=== PATIENT | male | born 1990 | race African-American/Black ===

== ENCOUNTER 2018-04-24 17:21 | Emergency (ER) | payer OTHER ==
--- OUTSIDE RECORDS SUMMARY | 2018-04-24 17:25 | XMS REPORT | Clinical Summary ---
:1990 Author Organization [facility] Address [address] [place] [address] Phone Care Team Providers Name Role Phone Unavailable Primary Care Provider Unavailable Allergies No Known Allergies Current Medications Prescription Sig. Disp. Refills Start End Date Status Date atorvastatin Take 80 mg by mouth Active (LIPITOR) 80 MG daily. tablet cloNIDine HCl Take 0.1 mg by Active (CATAPRES) 0.1 MG mouth 2 (two) times tablet daily . famotidine Take 20 mg by mouth Active (PEPCID) 20 MG 2 (two) times tablet daily. levETIRAcetam Take 1 tablet 30 tablet 0 02/05/20 Active (KEPPRA) 1000 MG (1,000 mg total) by 8 19 tablet mouth 2 (two) times daily. aspirin 81 MG EC Take 1 tablet (81 30 tablet 0 02/05/20 Active tablet mg total) by mouth 8 19 daily. vancomycin Inject 750 mg 0 Active (VANCOCIN) 750 MG intravenously 3 8 IV in NS 100 ML (three) times a MBP week after dialysis. darbepoetin Inject 60 mcg Active ephraim-polysorbate subcutaneously (ARANESP) 60 once. mcg/0.3 mL Syrg injection senna-docusate Take 2 tablets by Active (SENOKOT S) 8.6-50 mouth nightly. mg per tablet HEPARIN SOD,PORK Inject Active IN 0.45% NACL intravenously. (HEPARIN,PORCINE, IN 0.45% NACL) 5,000 unit/1,000 mL SolP INSULIN ASPART Inject Active PROT/INSULN ASP subcutaneously. (INSULIN ASP PRT-INSULIN ASPART SUBQ) LORazepam (ATIVAN) Take 1 mg by mouth Active 1 MG tablet every 6 (six) hours as needed for Anxiety. losartan (COZAAR) Take 25 mg by mouth Active 25 MG tablet daily. multivitamin per Take 1 tablet by Active tablet mouth daily. ondansetron Take 4 mg by mouth Active (ZOFRAN) 4 MG as needed for tablet Nausea. sevelamer Take 800 mg by Active (RENVELA) 800 mg mouth 3 (three) tablet times daily with meals. thiamine (VITAMIN Take 50 mg by mouth Active B-1) 50 MG tablet daily. acetaminophen-code Take 1 tablet by Active ine (TYLENOL #3) mouth every 4 300-30 mg per (four) hours as tablet needed for Pain. aspirin 325 MG Take 325 mg by 02/05/20 Discontinued tablet mouth daily. 18 amLODIPine Take 1 tablet (5 mg 30 tablet 0 03/07/20 (NORVASC) 5 MG total) by mouth 8 18 tablet daily for 30 days. Active Problems Problem Noted Date Abscess of leg without foot, left 02/04/2018 Abscess of leg, left 02/03/2018 Encounters Date Type Specialty Care Team Description 04/14/2018 Telephone General Surgery Lisa Greenberg, HomeHealth Order (Wet to dry order for Inner Calf wound) 02/18/2018 Office Visit General Surgery Lisa Greenberg, Status post surgery (Primary Dx) 01/31/2018 Procedure Pass 01/31/2018 Surgery Lisa Greenberg, DEBRIDEMENT/I&DGULSHAN MD D EXTREMITY LOWER 01/30/2018 - Hospital Encounter General Internal Madhuri, 02/04/2018 Medicine MD Sarah 01/30/2018 Anesthesia Event Keith Rosales, AA after 04/23/2017 Social History Tobacco Use Types Packs/Day Years Used Date Never Smoker Smokeless Tobacco: Never Used Alcohol Use Drinks/Week oz/Week Comments No Sex Assigned at Date Recorded Not on file Last Filed Vital Signs Vital Sign Reading Time Taken Blood Pressure 92/65 02/18/2018 10:53 AM CDT Pulse 132 02/18/2018 10:53 AM CDT Temperature 36.9 C (98.5 F) 02/18/2018 10:53 AM CDT Respiratory Rate 18 02/04/2018 3:00 PM CDT Oxygen Saturation 96% 02/04/2018 3:00 PM CDT Inhaled Oxygen Concentration - - Weight 112 kg (246 lb 14.6 oz) 01/30/2018 2:00 PM CDT Height 193 cm (6' 4") 01/30/2018 2:00 PM CDT Body Mass Index 30.06 01/30/2018 2:00 PM CDT Plan of Treatment Health Maintenance Due Date Last Done Comments INFLUENZA VACCINE 06/23/2018 Procedures Procedure Name Priority Date/Time Associated Diagnosis Comments DEBRIDEMENT/I&D,WOUND 01/31/2018 12:00 PM CDT Leg abscess EXTREMITY LOWER Special Needs DR. LILIAM ATWOOD ASST after 04/23/2017 Results TRANSFUSION SERVICE REPORT - SCAN (02/05/2018 5:50 PM)Only the most recent of3 resultswithin the time period is included.EKG-SCANNED (02/05/2018 3:24 PM) Prepare Leuko-Red RBC (02/04/2018 11:54 PM)Only the most recent of2 resultswithin the time period is included. Component Value Ref Range CROSSMATCH COMPATIBLE Unit ABO O Pos UNIT NUMBER [id number] Status TRANSFUSED Blood Bank Product RED BLOOD CELLS PRODUCT CODE A3526A35 CROSSMATCH COMPATIBLE Unit ABO O Pos UNIT NUMBER [id number] Status RETURNED FROM ISSUE Blood Bank Product RED BLOOD CELLS PRODUCT CODE R6951R31 Specimen Performing Laboratory Other [facility] [place] Prepare RBC (02/04/2018 11:54 PM) Component Value Ref Range CROSSMATCH COMPATIBLE Unit ABO O Pos UNIT NUMBER [id number] Status TRANSFUSED Blood Bank Product RED BLOOD CELLS PRODUCT CODE J2402U56 Specimen Performing Laboratory [facility] [place] POC-Glucose meter (02/04/2018 6:15 PM)Only the most recent of18 resultswithin the time period is included. Component Value Ref Range POC-Glucose Meter 129 (H)Comment: TESTED AT [facility] [address] 70 - 110 mg/dL [facility] [address] Specimen Performing Laboratory Blood [facility] [address] [address] CBC with platelet count + automated diff (02/04/2018 2:07 PM)Only the most recent of5 resultswithin the time period is included. Component Value Ref Range WBC 7.8 4.0 - 10.0 K/L RBC 3.06 (L) 4.20 - 5.80 M/L Hemoglobin 8.7 (L) 13.0 - 16.8 GM/DL Hematocrit 26.1 (L) 40.0 - 50.0 % MCV 85.5 82.0 - 98.0 fL MCH 28.4 27.0 - 33.0 pg MCHC 33.2 32.0 - 36.0 GM/DL RDW 19.5 (H) 10.3 - 14.2 % Platelets 264 150 - 430 K/CU MM MPV 7.4 6.5 - 10.5 fL % Neutros 52 % % Lymphs 29 % % Monos 14 % % Eos 5 % % Baso 1 % # Neutros 4.20 1.80 - 8.00 K/L # Lymphs 2.20 1.48 - 4.50 K/L # Monos 1.10 0.00 - 1.30 K/L # Eos 0.30 0.00 - 0.50 K/L # Baso 0.00 0.00 - 0.20 K/L Specimen Performing Laboratory Blood [facility] [address] [place] [id number] CBC with platelet count + automated diff (02/04/2018 2:07 PM)Only the most recent of5 resultswithin the time period is included. Specimen Performing Laboratory Blood Narrative The following orders were created for panel order CBC with platelet count + automated diff. Procedure Abnormality Status --------- ------ CBC with platelet count ...[[id number]]AbnormalFinal result Please view results for these tests on the individual orders. Basic Metabolic Panel (02/04/2018 2:07 PM)Only the most recent of5 resultswithin the time period is included. Component Value Ref Range Sodium 138 135 - 148 meq/L Potassium 4.6 3.6 - 5.5 meq/L Chloride 97 (L) 98 - 106 meq/L CO2 19 (L) 20 - 29 meq/L BUN 27 (H) 10 - 26 mg/dL Creatinine 7.19 (H) 0.50 - 1.20 mg/dL Glucose 97 70 - 110 mg/dL Calcium 9.8 8.5 - 10.5 mg/dL EGFR 11Comment: ESTIMATED GFR IS NOT ACCURATE mL/min/1.73 sq m CREATININE CLEARANCE IN PREDICTING GLOMERULAR FILTRATION RATE. ESTIMATED GFR IS NOT APPLICABLE FOR DIALYSIS PATIENTS. Specimen Performing Laboratory Blood [facility] [address] [place] [address] Phosphorus (02/03/2018 4:48 PM) Component Value Ref Range Phosphorus 6.9 (H) 2.5 - 4.5 mg/dL Specimen Performing Laboratory Blood [facility] [address] [place], [place] [address] Hemoglobin and hematocrit (02/03/2018 8:06 AM) Component Value Ref Range Hemoglobin 6.5 (L) 13.0 - 16.8 GM/DL Hematocrit 19.0 (L) 40.0 - 50.0 % Specimen Performing Laboratory Blood - Central Venous Line [facility] [address] [place] [address] Manual Differential (02/03/2018 7:27 AM)Only the most recent of3 resultswithin the time period is included. Component Value Ref Range Total Counted WBC Morphology Normal Platelet Morphology Normal Anisocytosis 1+ few Specimen Performing Laboratory Blood - Central Venous Line [facility] [address] [place], [place] [id number] Transfuse Leuko-Red RBC (02/02/2018 3:35 PM)Type and screen (02/02/2018 7:49 AM) Component Value Ref Range Ab Scrn NEGATIVE ABO Grouping O Rh Factor POS Specimen Performing [place] [address] Tissue Exam (01/31/2018 11:10 AM) Component Value Ref Range Case Report Surgical Pathology Report Case: [id number] Authorizing Provider:Lisa Greenberg MD Collected: 01/31/2018 1110 Ordering Location: [facility] Med Surg 5th FloorReceived: 01/31/2018 1249 Pathologist: Sherri Zarate MD Specimen:Leg, Left Lower, NECROTIC TISSUE LEFT LOWER LEG DIAGNOSIS SKIN AND SOFT TISSUE, LEFT LOWER LEG, EXCISION: - SKIN AND SUBCUTIS WITH NECROSIS, ACUTE AND CHRONIC INFLAMMATION, BACTERIAL COLONIZATION AND CALCIFICATION OF BLOOD VESSELS, CONSISTENT WITH CALCIPHYLAXIS (SEE COMMENT) Signing Pathologist Direct Phone Line: [phone] COMMENT Calcification of small and medium sized blood vessels are identified along with extensive necrosis of tissue. 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 CPT Code(s) 61221 CLINICAL HISTORY Not given SPECIMEN SOURCE Leg, left lower, necrotic tissue left lower leg GROSS DESCRIPTION The specimen is received in fixative and designated as "leg, left lower" and consists of skin and subcutaneous tissue (6.0 x 4.0 x 2.0 cm). The overlying skin is brown-patterson and smooth. No discrete lesions. The underlying soft tissue is soft and necrotic. Bobbin Inspector sections of the skin and soft tissue are submitted into A1 to A3. MG/pl MICROSCOPIC DESCRIPTION Performed Gross assessment was performed at [facility], Department of Pathology, [address] [place] [address], Technical component was performed at [facility], Department of Pathology, [address] [place] [address], Professional component was performed [facility], at Department of Pathology, [address] [place] [address], Specimen Performing Laboratory Tissue - Leg, Left Lower [facility] [address] [place] [address] Anaerobic culture (01/31/2018 11:05 AM) Component Value Ref Range Result No anaerobes isolated Specimen Performing Laboratory Abscess - Leg, Left Lower [facility] [address] [place] [address] Surgically obtained culture + gram stain (01/31/2018 11:05 AM) Component Value Ref Range Result 2+ Methicillin resistant Staphylococcus aureus (A) Gram Stain Result 4+ WBCs Gram Stain Result 1+ gram positive cocci in clusters Specimen Performing Laboratory Abscess - Leg, Left Lower [facility] [address] [place] [address] Organism Antibiotic Method Susceptibility Methicillin resistant Clindamycin 0.25: Susceptible Staphylococcus aureus Methicillin resistant Linezolid 2: Susceptible Staphylococcus aureus Methicillin resistant Oxacillin >=4: Resistant Staphylococcus aureus Methicillin resistant Rifampin <=0.5: Susceptible Staphylococcus aureus Methicillin resistant Tetracycline <=1: Susceptible Staphylococcus aureus Methicillin resistant Trimethoprim + <=10: Susceptible Staphylococcus aureus Sulfamethoxazole Methicillin resistant Vancomycin 1: Susceptible Staphylococcus aureus Hepatitis B surface antibody (01/31/2018 6:43 AM) Component Value Ref Range Hep B S Ab 10.2 (H) <8.0 mIU/mL Specimen Performing Laboratory Blood - Central Venous Line [address] [address] Hepatitis B surface antigen (01/31/2018 6:43 AM) Component Value Ref Range hepatitis B Surface Ag Nonreactive Nonreactive Specimen Performing Laboratory Blood - Central Venous Line [facility] [address] [place] [address] Prothrombin time/INR (01/30/2018 3:48 PM) Component Value Ref Range Protime 11.2 9.3 - 12.0 seconds INR 1.0 <=5.9 Specimen Performing Laboratory Blood [facility] [address] [place] [address] Narrative RECOMMENDED COUMADIN/WARFARIN INR THERAPY RANGES STANDARD DOSE: 2.0 - 3.0 Includes: PROPHYLAXIS for venous thrombosis, systemic embolization; TREATMENT for venous thrombosis and/or pulmonary embolus. HIGH RISK: Target INR is 2.5-3.5 for patients with mechanical heart valves. after 04/23/2017
--- OUTSIDE RECORDS SUMMARY | 2018-04-24 17:25 | XMS REPORT ---
:1990 [facility] [address] [place] [address] [address] [place] [address] Care Team Providers Name Role Phone ANNE CASTILLO Unavailable Unavailable DR EDUARDO SHELTON Unavailable Unavailable Problems This patient has no known problems. Allergies, Adverse Reactions, Alerts This patient has no known allergies or adverse reactions. Medications This patient has no known medications. Encounters Start End Encounter Admission Attending Care Care Encounter Date/Time Date/Time Type Type Clinicians Facility Department ID 2018-01-28 2018-01-28 Outpatient EDUARDO [facility] [id number] 07:49:00 23:59:00 Results Test Description Test Time Test Comments Text Results Atomic Results Result Comments ANAEROBIC CULTURE 2018-02-05 10:36:00 Test Item Value Reference Range Comments CULTURE (BEAKER) (test naat=9687) No anaerobes isolated POCT-GLUCOSE [id number] 18:17:00 Test Item Value Reference Range Comments POC-GLUCOSE METER (BEAKER) 129 mg/dL 70-110 TESTED AT [facility] [address] [place] [address] (test tfag=2539) [facility] [address] BASIC METABOLIC [id number] 14:45:00 Test Item Value Reference Range Comments SODIUM (BEAKER) (test 138 meq/L 135-148 ioje=269) POTASSIUM (BEAKER) (test 4.6 meq/L 3.6-5.5 yyfy=903) CHLORIDE (BEAKER) (test 97 meq/L 98-106 huyo=216) CO2 (BEAKER) (test 19 meq/L 20-29 ibqv=172) BLOOD UREA NITROGEN 27 mg/dL 10-26 (BEAKER) (test tbkh=239) CREATININE (BEAKER) (test 7.19 mg/dL 0.50-1.20 yphm=252) GLUCOSE RANDOM (BEAKER) 97 mg/dL 70-110 (test znsx=716) CALCIUM (BEAKER) (test 9.8 mg/dL 8.5-10.5 arjz=507) EGFR (BEAKER) (test 11 mL/min/1.73 sq m ESTIMATED GFR IS NOT dxld=1351) ACCURATE CREATININE CLEARANCE IN PREDICTING GLOMERULAR FILTRATION RATE. ESTIMATED GFR IS NOT APPLICABLE FOR DIALYSIS PATIENTS. CBC W/PLT COUNT & AUTO [id number] 14:35:00 Test Item Value Reference Range Comments WHITE BLOOD CELL COUNT (BEAKER) (test cxeq=494) 7.8 K/ L 4.0-10.0 RED BLOOD CELL COUNT (BEAKER) (test ztfz=296) 3.06 M/ L 4.20-5.80 HEMOGLOBIN (BEAKER) (test hepf=090) 8.7 GM/DL 13.0-16.8 HEMATOCRIT (BEAKER) (test jxps=072) 26.1 % 40.0-50.0 MEAN CORPUSCULAR VOLUME (BEAKER) (test nzjz=427) 85.5 fL 82.0-98.0 MEAN CORPUSCULAR HEMOGLOBIN (BEAKER) (test 28.4 pg 27.0-33.0 qglr=952) MEAN CORPUSCULAR HEMOGLOBIN CONC (BEAKER) (test 33.2 GM/DL 32.0-36.0 cdrr=127) RED CELL DISTRIBUTION WIDTH (BEAKER) (test 19.5 % 10.3-14.2 kpqw=648) PLATELET COUNT (BEAKER) (test ysis=686) 264 K/CU MM 150-430 MEAN PLATELET VOLUME (BEAKER) (test maya=832) 7.4 fL 6.5-10.5 NEUTROPHILS RELATIVE PERCENT (BEAKER) (test 52 % vqvx=249) LYMPHOCYTES RELATIVE PERCENT (BEAKER) (test 29 % ovui=907) MONOCYTES RELATIVE PERCENT (BEAKER) (test 14 % zsrp=308) EOSINOPHILS RELATIVE PERCENT (BEAKER) (test 5 % gktc=729) BASOPHILS RELATIVE PERCENT (BEAKER) (test 1 % ntjq=050) NEUTROPHILS ABSOLUTE COUNT (BEAKER) (test 4.20 K/ L 1.80-8.00 jacz=060) LYMPHOCYTES ABSOLUTE COUNT (BEAKER) (test 2.20 K/ L 1.48-4.50 quin=937) MONOCYTES ABSOLUTE COUNT (BEAKER) (test 1.10 K/ L 0.00-1.30 bzri=302) EOSINOPHILS ABSOLUTE COUNT (BEAKER) (test 0.30 K/ L 0.00-0.50 bqfs=824) BASOPHILS ABSOLUTE COUNT (BEAKER) (test 0.00 K/ L 0.00-0.20 almr=896) POCT-GLUCOSE [id number] 11:29:00 Test Item Value Reference Range Comments POC-GLUCOSE METER (BEAKER) 189 mg/dL 70-110 TESTED AT [address] (test smys=6596) [facility] [address] POCT-GLUCOSE [id number] 05:51:00 Test Item Value Reference Range Comments POC-GLUCOSE METER (BEAKER) 117 mg/dL 70-110 TESTED AT [address] (test fjbr=1495) [place] [id number] POCT-GLUCOSE [id number] 21:42:00 Test Item Value Reference Range Comments POC-GLUCOSE METER (BEAKER) 120 mg/dL 70-110 TESTED AT [address] (test rdzr=0443) [facility] [address] POCT-GLUCOSE [id number] 20:08:00 Test Item Value Reference Range Comments POC-GLUCOSE METER (BEAKER) 128 mg/dL 70-110 TESTED AT [address] (test lvqw=6296) [facility] [address] [id number] 17:01:00 Test Item Value Reference Range Comments PHOSPHORUS (BEAKER) (test okox=890) 6.9 mg/dL 2.5-4.5 POCT-GLUCOSE [id number] 12:06:00 Test Item Value Reference Range Comments POC-GLUCOSE METER (BEAKER) 122 mg/dL 70-110 TESTED AT [address] (test juvu=7475) [facility] [address] TISSUE [id number] 09:54:00Surgical Pathology Report Case: [id number] Authorizing Provider: Lisa Greenberg MD Collected: 01/31/2018 1110 Ordering Location: [facility] Med Surg 5th Floor Received: 01/31/2018 1249 Pathologist: Sherri Zarate MD Specimen: Leg, Left Lower, NECROTIC TISSUE LEFT LOWER LEG SKIN AND SOFT TISSUE, LEFT LOWER LEG, EXCISION: - SKIN AND SUBCUTIS WITH NECROSIS, ACUTE AND CHRONIC INFLAMMATION, BACTERIAL COLONIZATION AND CALCIFICATION OF BLOOD VESSELS, CONSISTENT WITH CALCIPHYLAXIS (SEE COMMENT) Signing Pathologist Direct Phone Line: [phone] signed by Sherri Zarate MD on 02/03/2018 at 9:54 AMCalcification of small and medium sized blood vessels are identified along with extensive necrosis of tissue. 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 [id number] givenLeg, left lower, necrotic tissue left lower legThe specimen is received in fixative and designated as "leg, left lower" and consists of skin and subcutaneous tissue ( 6.0 x 4.0 x 2.0 cm). The overlying skin is brown-patterson and smooth. No discrete lesions. The underlying soft tissue is soft and necrotic. Paint Spray Tender sectionsof the skin and soft tissue are submitted into A1 to A3. MG/pl Performed [facility], Department of Pathology, [address] [place] [address], IoywjxMk. [facility], Department of Pathology, [address] [place] [address], Tel . [facility], Department of Pathology, [address] [place] [address], IHJ W/PLT COUNT & AUTO [id number] 09:08:00 Test Item Value Reference Range Comments WHITE BLOOD CELL COUNT (BEAKER) (test xlql=723) 6.8 K/ L 4.0-10.0 RED BLOOD CELL COUNT (BEAKER) (test ufxj=871) 2.19 M/ L 4.20-5.80 HEMOGLOBIN (BEAKER) (test ixww=116) 6.2 GM/DL 13.0-16.8 HEMATOCRIT (BEAKER) (test hipr=734) 18.8 % 40.0-50.0 MEAN CORPUSCULAR VOLUME (BEAKER) (test tmsx=209) 85.9 fL 82.0-98.0 MEAN CORPUSCULAR HEMOGLOBIN (BEAKER) (test 28.4 pg 27.0-33.0 lqcz=257) MEAN CORPUSCULAR HEMOGLOBIN CONC (BEAKER) (test 33.1 GM/DL 32.0-36.0 qsyf=817) RED CELL DISTRIBUTION WIDTH (BEAKER) (test 22.6 % 10.3-14.2 vkaa=502) PLATELET COUNT (BEAKER) (test iisk=113) 198 K/CU MM 150-430 MEAN PLATELET VOLUME (BEAKER) (test nckr=592) 7.1 fL 6.5-10.5 NUCLEATED RED BLOOD CELLS (BEAKER) (test 0 /100 WBC 0-0 amjr=607) NEUTROPHILS RELATIVE PERCENT (BEAKER) (test 63 % catq=394) LYMPHOCYTES RELATIVE PERCENT (BEAKER) (test 19 % flwe=754) MONOCYTES RELATIVE PERCENT (BEAKER) (test 13 % nhcf=134) EOSINOPHILS RELATIVE PERCENT (BEAKER) (test 5 % xdvr=751) BASOPHILS RELATIVE PERCENT (BEAKER) (test 1 % vbjb=922) NEUTROPHILS ABSOLUTE COUNT (BEAKER) (test 4.30 K/ L 1.80-8.00 biky=739) LYMPHOCYTES ABSOLUTE COUNT (BEAKER) (test 1.30 K/ L 1.48-4.50 uejh=197) MONOCYTES ABSOLUTE COUNT (BEAKER) (test 0.90 K/ L 0.00-1.30 eoaj=116) EOSINOPHILS ABSOLUTE COUNT (BEAKER) (test 0.30 K/ L 0.00-0.50 lzcv=740) BASOPHILS ABSOLUTE COUNT (BEAKER) (test 0.00 K/ L 0.00-0.20 luxq=627) (MANUAL DIFFERENTIAL)2018-02-03 09:08:00 Test Item Value Reference Range Comments TOTAL COUNTED (BEAKER) (test xaie=2599) WBC MORPHOLOGY (BEAKER) (test kejv=882) Normal PLT MORPHOLOGY (BEAKER) (test trsf=723) Normal ANISOCYTOSIS (BEAKER) (test fhiw=919) 1+ few BASIC METABOLIC [id number] 08:39:00 Test Item Value Reference Range Comments SODIUM (BEAKER) (test 131 meq/L 135-148 wesw=000) POTASSIUM (BEAKER) (test 5.0 meq/L 3.6-5.5 perl=403) CHLORIDE (BEAKER) (test 97 meq/L 98-106 xsdi=873) CO2 (BEAKER) (test 25 meq/L 20-29 tjuv=678) BLOOD UREA NITROGEN 41 mg/dL 10-26 (BEAKER) (test qgad=287) CREATININE (BEAKER) (test 9.74 mg/dL 0.50-1.20 mltu=875) GLUCOSE RANDOM (BEAKER) 88 mg/dL 70-110 (test blnj=201) CALCIUM (BEAKER) (test 8.7 mg/dL 8.5-10.5 qsjj=327) EGFR (BEAKER) (test 8 mL/min/1.73 sq m ESTIMATED GFR IS NOT tucv=5196) ACCURATE CREATININE CLEARANCE IN PREDICTING GLOMERULAR FILTRATION RATE. ESTIMATED GFR IS NOT APPLICABLE FOR DIALYSIS PATIENTS. HEMOGLOBIN AND [id number] 08:25:00 Test Item Value Reference Range Comments HEMOGLOBIN (BEAKER) (test eavz=385) 6.5 GM/DL 13.0-16.8 HEMATOCRIT (BEAKER) (test wfdz=735) 19.0 % 40.0-50.0 POCT-GLUCOSE [id number] 21:42:00 Test Item Value Reference Range Comments POC-GLUCOSE METER (BEAKER) 121 mg/dL 70-110 TESTED AT [address] (test qszu=5545) [facility] [address] POCT-GLUCOSE [id number] 16:40:00 Test Item Value Reference Range Comments POC-GLUCOSE METER (BEAKER) 134 mg/dL 70-110 TESTED AT [address] (test ukxr=7963) [facility] [address] POCT-GLUCOSE [id number] 12:00:00 Test Item Value Reference Range Comments POC-GLUCOSE METER (BEAKER) 84 mg/dL 70-110 TESTED AT [address] (test ohro=1018) [facility] [address] SURGICALLY OBTAINED CULTURE + GRAM [id number] 08:12:00 Test Item Value Reference Range Comments CULTURE (AKER) (test METHICILLIN RESISTANT 2+ Methicillin bzuk=3140) STAPHYLOCOCCUS AUREUS resistant Staphylococcus aureus Ciprofloxacin (test code=7) Clindamycin (test code=10) Daptomycin (test code=59) Erythromycin (test code=4) Gentamicin (test code=18) Levofloxacin (test code=22) Linezolid (test code=40) Moxifloxacin (test code=36) Nitrofurantoin (test code=23) Oxacillin (test code=14) Rifampin (test code=43) Tetracycline (test code=2) Tigecycline (test beae=620) Trimethoprim + Sulfamethoxazole (test code=47) Vancomycin (test code=13) GRAM STAIN RESULT 4+ WBCs (BEAKER) (test mwgy=8023) GRAM STAIN RESULT 1+ gram positive cocci (BEAKER) (test in clusters ghxi=882997) CBC W/PLT COUNT & AUTO [id number] 06:19:00 Test Item Value Reference Range Comments WHITE BLOOD CELL COUNT (BEAKER) (test zqsy=596) 7.9 K/ L 4.0-10.0 RED BLOOD CELL COUNT (BEAKER) (test kpus=308) 2.16 M/ L 4.20-5.80 HEMOGLOBIN (BEAKER) (test rffm=202) 6.2 GM/DL 13.0-16.8 HEMATOCRIT (BEAKER) (test ohqd=979) 18.9 % 40.0-50.0 MEAN CORPUSCULAR VOLUME (BEAKER) (test ezno=191) 87.2 fL 82.0-98.0 MEAN CORPUSCULAR HEMOGLOBIN (BEAKER) (test 28.7 pg 27.0-33.0 nahl=100) MEAN CORPUSCULAR HEMOGLOBIN CONC (BEAKER) (test 32.9 GM/DL 32.0-36.0 dijx=957) RED CELL DISTRIBUTION WIDTH (BEAKER) (test 23.4 % 10.3-14.2 pkjw=759) PLATELET COUNT (BEAKER) (test ljxz=026) 203 K/CU MM 150-430 MEAN PLATELET VOLUME (BEAKER) (test siee=858) 7.2 fL 6.5-10.5 NUCLEATED RED BLOOD CELLS (BEAKER) (test 0 /100 WBC 0-0 kmct=326) NEUTROPHILS RELATIVE PERCENT (BEAKER) (test 64 % pcxv=529) LYMPHOCYTES RELATIVE PERCENT (BEAKER) (test 18 % gxhm=174) MONOCYTES RELATIVE PERCENT (BEAKER) (test 14 % dxib=356) EOSINOPHILS RELATIVE PERCENT (BEAKER) (test 4 % qxce=357) BASOPHILS RELATIVE PERCENT (BEAKER) (test 1 % iorw=893) NEUTROPHILS ABSOLUTE COUNT (BEAKER) (test 5.00 K/ L 1.80-8.00 dufm=975) LYMPHOCYTES ABSOLUTE COUNT (BEAKER) (test 1.40 K/ L 1.48-4.50 niyk=981) MONOCYTES ABSOLUTE COUNT (BEAKER) (test 1.10 K/ L 0.00-1.30 djrb=468) EOSINOPHILS ABSOLUTE COUNT (BEAKER) (test 0.30 K/ L 0.00-0.50 vimo=835) BASOPHILS ABSOLUTE COUNT (BEAKER) (test 0.00 K/ L 0.00-0.20 veev=270) POCT-GLUCOSE [id number] 06:01:00 Test Item Value Reference Range Comments POC-GLUCOSE METER (BEAKER) 122 mg/dL 70-110 TESTED AT [address] (test kjsg=7421) [facility] [address] POCT-GLUCOSE [id number] 21:23:00 Test Item Value Reference Range Comments POC-GLUCOSE METER (BEAKER) 178 mg/dL 70-110 TESTED AT [address] (test srdy=5452) [facility] [address] POCT-GLUCOSE [id number] 16:29:00 Test Item Value Reference Range Comments POC-GLUCOSE METER (BEAKER) 165 mg/dL 70-110 TESTED AT [address] (test bobr=1159) [facility] [address] POCT-GLUCOSE [id number] 11:59:00 Test Item Value Reference Range Comments POC-GLUCOSE METER (BEAKER) 131 mg/dL 70-110 TESTED AT [address] (test jsgc=9429) [facility] [address] POCT-GLUCOSE [id number] 05:22:00 Test Item Value Reference Range Comments POC-GLUCOSE METER (BEAKER) 104 mg/dL 70-110 TESTED AT [address] (test qpws=5358) [facility] [address] POCT-GLUCOSE [id number] 22:48:00 Test Item Value Reference Range Comments POC-GLUCOSE METER (BEAKER) 122 mg/dL 70-110 TESTED AT [address] (test maia=4402) [facility] [address] HEPATITIS B SURFACE [id number] 20:44:00 Test Item Value Reference Range Comments HEPATITIS B SURFACE ANTIBODY (BEAKER) (test 10.2 mIU/mL <8.0 jhjl=839) POCT-GLUCOSE [id number] 18:00:00 Test Item Value Reference Range Comments POC-GLUCOSE METER (BEAKER) 127 mg/dL 70-110 TESTED AT [facility] [address] (test lblf=8761) [address] [facility] [address] BASIC METABOLIC [id number] 11:02:00 Test Item Value Reference Range Comments SODIUM (BEAKER) (test 137 meq/L 135-148 ybox=943) POTASSIUM (BEAKER) (test 3.5 meq/L 3.6-5.5 haql=197) CHLORIDE (BEAKER) (test 98 meq/L 98-106 znol=879) CO2 (BEAKER) (test 27 meq/L 20-29 wrqw=470) BLOOD UREA NITROGEN 11 mg/dL 10-26 (BEAKER) (test wftb=421) CREATININE (BEAKER) (test 3.99 mg/dL 0.50-1.20 qymd=439) GLUCOSE RANDOM (BEAKER) 84 mg/dL 70-110 (test nhio=213) CALCIUM (BEAKER) (test 9.6 mg/dL 8.5-10.5 neuc=863) EGFR (BEAKER) (test 22 mL/min/1.73 sq m ESTIMATED GFR IS NOT vsxe=8780) ACCURATE CREATININE CLEARANCE IN PREDICTING GLOMERULAR FILTRATION RATE. ESTIMATED GFR IS NOT APPLICABLE FOR DIALYSIS PATIENTS. CBC W/PLT COUNT & AUTO [id number] 10:36:00 Test Item Value Reference Range Comments WHITE BLOOD CELL COUNT (BEAKER) (test tgqy=630) 6.7 K/ L 4.0-10.0 RED BLOOD CELL COUNT (BEAKER) (test lqun=263) 2.89 M/ L 4.20-5.80 HEMOGLOBIN (BEAKER) (test nuyh=827) 8.2 GM/DL 13.0-16.8 HEMATOCRIT (BEAKER) (test vmjf=399) 24.9 % 40.0-50.0 MEAN CORPUSCULAR VOLUME (BEAKER) (test fpfm=892) 86.1 fL 82.0-98.0 MEAN CORPUSCULAR HEMOGLOBIN (BEAKER) (test 28.3 pg 27.0-33.0 cgck=651) MEAN CORPUSCULAR HEMOGLOBIN CONC (BEAKER) (test 32.9 GM/DL 32.0-36.0 temg=302) RED CELL DISTRIBUTION WIDTH (BEAKER) (test 24.6 % 10.3-14.2 uefp=684) PLATELET COUNT (BEAKER) (test aqpt=471) 234 K/CU MM 150-430 MEAN PLATELET VOLUME (BEAKER) (test nyyw=082) 7.3 fL 6.5-10.5 NUCLEATED RED BLOOD CELLS (BEAKER) (test 0 /100 WBC 0-0 urlv=723) NEUTROPHILS RELATIVE PERCENT (BEAKER) (test 64 % tfml=332) LYMPHOCYTES RELATIVE PERCENT (BEAKER) (test 20 % tfre=538) MONOCYTES RELATIVE PERCENT (BEAKER) (test 11 % fbbb=207) EOSINOPHILS RELATIVE PERCENT (BEAKER) (test 4 % ccfh=174) BASOPHILS RELATIVE PERCENT (BEAKER) (test 1 % bmph=054) NEUTROPHILS ABSOLUTE COUNT (BEAKER) (test 4.30 K/ L 1.80-8.00 dtyi=833) LYMPHOCYTES ABSOLUTE COUNT (BEAKER) (test 1.30 K/ L 1.48-4.50 hgey=426) MONOCYTES ABSOLUTE COUNT (BEAKER) (test 0.80 K/ L 0.00-1.30 wawo=759) EOSINOPHILS ABSOLUTE COUNT (BEAKER) (test 0.30 K/ L 0.00-0.50 oxxl=525) BASOPHILS ABSOLUTE COUNT (BEAKER) (test 0.00 K/ L 0.00-0.20 ecxr=226) (MANUAL DIFFERENTIAL)2018-01-31 10:36:00 Test Item Value Reference Range Comments TOTAL COUNTED (BEAKER) (test tyqn=0972) WBC MORPHOLOGY (BEAKER) (test pnok=434) Normal PLT MORPHOLOGY (BEAKER) (test bsff=344) Normal ANISOCYTOSIS (BEAKER) (test lfdt=119) 1+ few MICROCYTES (BEAKER) (test fyqr=003) 1+ few POIKILOCYTES (BEAKER) (test iphb=778) 1+ few HEPATITIS B SURFACE [id number] 07:50:00 Test Item Value Reference Range Comments HEPATITIS B SURFACE ANTIGEN (2) (BEAKER) (test Nonreactive Nonreactive shkw=1406) BASIC METABOLIC [id number] 07:45:00 Test Item Value Reference Range Comments SODIUM (BEAKER) (test 133 meq/L 135-148 rijk=399) POTASSIUM (BEAKER) (test 4.4 meq/L 3.6-5.5 xpll=300) CHLORIDE (BEAKER) (test 97 meq/L 98-106 mgul=556) CO2 (BEAKER) (test 25 meq/L 20-29 mkuk=705) BLOOD UREA NITROGEN 25 mg/dL 10-26 (BEAKER) (test ujpj=727) CREATININE (BEAKER) (test 7.52 mg/dL 0.50-1.20 isrd=775) GLUCOSE RANDOM (BEAKER) 89 mg/dL 70-110 (test zary=167) CALCIUM (BEAKER) (test 9.8 mg/dL 8.5-10.5 iqos=677) EGFR (BEAKER) (test 10 mL/min/1.73 sq m ESTIMATED GFR IS NOT uyik=9397) ACCURATE CREATININE CLEARANCE IN PREDICTING GLOMERULAR FILTRATION RATE. ESTIMATED GFR IS NOT APPLICABLE FOR DIALYSIS PATIENTS. POCT-GLUCOSE [id number] 06:32:00 Test Item Value Reference Range Comments POC-GLUCOSE METER (BEAKER) 82 mg/dL 70-110 TESTED AT [address] (test qxao=2583) [facility] [address] POCT-GLUCOSE [id number] 17:47:00 Test Item Value Reference Range Comments POC-GLUCOSE METER (BEAKER) 106 mg/dL 70-110 TESTED AT [address] (test jmuj=9112) [facility] [address] CBC W/PLT COUNT & AUTO [id number] 16:41:00 Test Item Value Reference Range Comments WHITE BLOOD CELL COUNT (BEAKER) (test hgbn=153) 8.0 K/ L 4.0-10.0 RED BLOOD CELL COUNT (BEAKER) (test ocdu=804) 3.02 M/ L 4.20-5.80 HEMOGLOBIN (BEAKER) (test alqp=528) 8.5 GM/DL 13.0-16.8 HEMATOCRIT (BEAKER) (test pdoc=485) 25.9 % 40.0-50.0 MEAN CORPUSCULAR VOLUME (BEAKER) (test tzos=084) 85.7 fL 82.0-98.0 MEAN CORPUSCULAR HEMOGLOBIN (BEAKER) (test 28.3 pg 27.0-33.0 njce=456) MEAN CORPUSCULAR HEMOGLOBIN CONC (BEAKER) (test 33.0 GM/DL 32.0-36.0 hhqx=569) RED CELL DISTRIBUTION WIDTH (BEAKER) (test 24.9 % 10.3-14.2 fpgq=418) PLATELET COUNT (BEAKER) (test uhjw=000) 272 K/CU MM 150-430 MEAN PLATELET VOLUME (BEAKER) (test kqtx=304) 6.7 fL 6.5-10.5 NUCLEATED RED BLOOD CELLS (BEAKER) (test 0 /100 WBC 0-0 gulz=386) NEUTROPHILS RELATIVE PERCENT (BEAKER) (test 65 % godz=436) LYMPHOCYTES RELATIVE PERCENT (BEAKER) (test 19 % chra=623) MONOCYTES RELATIVE PERCENT (BEAKER) (test 12 % pfli=342) EOSINOPHILS RELATIVE PERCENT (BEAKER) (test 3 % bqlk=296) BASOPHILS RELATIVE PERCENT (BEAKER) (test 1 % okia=928) NEUTROPHILS ABSOLUTE COUNT (BEAKER) (test 5.20 K/ L 1.80-8.00 mdje=502) LYMPHOCYTES ABSOLUTE COUNT (BEAKER) (test 1.50 K/ L 1.48-4.50 biop=752) MONOCYTES ABSOLUTE COUNT (BEAKER) (test 1.00 K/ L 0.00-1.30 xdtl=766) EOSINOPHILS ABSOLUTE COUNT (BEAKER) (test 0.20 K/ L 0.00-0.50 pini=313) BASOPHILS ABSOLUTE COUNT (BEAKER) (test 0.00 K/ L 0.00-0.20 umgg=205) (MANUAL DIFFERENTIAL)2018-01-30 16:41:00 Test Item Value Reference Range Comments TOTAL COUNTED (BEAKER) (test eadw=5817) WBC MORPHOLOGY (BEAKER) (test uvjr=303) Normal PLT MORPHOLOGY (BEAKER) (test qkie=084) Normal ANISOCYTOSIS (BEAKER) (test vueo=900) 2+ moderate HYPOCHROMIA (BEAKER) (test nguv=164) 2+ moderate BASIC METABOLIC [id number] 16:21:00 Test Item Value Reference Range Comments SODIUM (BEAKER) (test 133 meq/L 135-148 lqzq=515) POTASSIUM (BEAKER) (test 4.5 meq/L 3.6-5.5 xaen=635) CHLORIDE (BEAKER) (test 96 meq/L 98-106 jhqa=419) CO2 (BEAKER) (test 26 meq/L 20-29 hbhz=960) BLOOD UREA NITROGEN 21 mg/dL 10-26 (BEAKER) (test sfzy=697) CREATININE (BEAKER) (test 6.41 mg/dL 0.50-1.20 dpxr=078) GLUCOSE RANDOM (BEAKER) 93 mg/dL 70-110 (test xdxt=814) CALCIUM (BEAKER) (test 10.0 mg/dL 8.5-10.5 khgy=349) EGFR (BEAKER) (test 13 mL/min/1.73 sq m ESTIMATED GFR IS NOT kvrk=[id number]) ACCURATE CREATININE CLEARANCE IN PREDICTING GLOMERULAR FILTRATION RATE. ESTIMATED GFR IS NOT APPLICABLE FOR DIALYSIS PATIENTS. PROTHROMBIN [id number] 16:17:00 Test Item Value Reference Range Comments PROTIME (BEAKER) (test evpm=339) 11.2 seconds 9.3-12.0 INR (BEAKER) (test azrm=626) 1.0 <=5.9 RECOMMENDED COUMADIN/WARFARIN INR THERAPY RANGESSTANDARD DOSE: 2.0 - 3.0 Includes: PROPHYLAXIS forvenous thrombosis, systemic embolization; TREATMENT for venous thrombosis and/or pulmonary embolus.HIGH RISK: Target INR is 2.5-3.5 for patients with mechanical heart valves.
--- NOTE | 2018-04-24 18:14 | RAD REPORT ---
EXAM DESCRIPTION: RAD - Chest Single View - 04/24/2018 6:09 pm CLINICAL HISTORY: syncope Chest pain. COMPARISON: Chest Single View dated 12/04/2017; Chest Single View dated 11/28/2017; Chest Single View d ated 11/27/2017; Chest Single View dated 11/26/2017 FINDINGS: Portable technique limits examination quality. The lungs are grossly clear. The heart is mildly enlarged in size. No displaced fractures.Left-sided venous catheter tip in the SVC. IMPRESSION: No acute intrathoracic process suspected.
--- NOTE | 2018-04-24 18:28 | RAD REPORT ---
EXAM DESCRIPTION: CT - [id number] - 04/24/2018 6:03 pm CLINICAL HISTORY: Trauma, head and neck injury. syncope COMPARISON: MRA Head Wo Cont dated 12/05/2017; Brain Wo Cont dated 12/05/2017 TECHNIQUE: Axial 5 mm thick images of the head were obtained. Axial 2 mm thick images of the cervical spine were obtained with sagittal and coronal reconstruction images generated and reviewed. All CT scans are performed using dose optimization technique as appropriate and may include automated exposure control or mA/KV adjustment according to patient size. FINDINGS: CT HEAD WITHOUT CONTRAST: No acute hemorrhage, hydrocephalus or extra-axial collection is identified.Areas of diminished densit y in the basal ganglia bilaterally and the central midline regions of the brain is compatible with re mote infarcts.No areas of brain edema or midline shift. 10 mm mucous retention cyst or polyp in the right maxillary antrum. The paranasal sinuses and mastoid s are otherwise clear.The calvarium is intact. CT CERVICAL SPINE WITHOUT CONTRAST: No fracture or subluxation.No prevertebral soft tissues swelling is identified. IMPRESSION: No acute intracranial or cervical spine findings.
[2018-04-24 19:10] LABS: Absolute Lymphocytes (CBC) 1.3 K/uL (0.7-4.9); Absolute Monocytes 0.5 K/uL (0.1-1.3); Absolute Neutrophil 3.3 K/uL (1.8-8.0); Basophils % 0.6 % (0-1.3); Hematocrit 40.1 % (39.6-49.0); Lymphocytes % 24.2 % (15.3-44.8); MCH 30.3 pg (27.0-35.0); MCV 91.4 fL (80-100); MPV 8.6 fL (7.6-11.3); Monocytes % 8.5 % (3.3-12.3); RBC Red Blood Cell Count 4.39 M/uL (4.33-5.43)
[2018-04-24 19:14] LABS: Protime INR 1.03
--- NOTE | 2018-04-24 19:16 | ER ---
Nurse's Notes [facility] Unit Name: Rodrigue Arreola Jr Age: 27 yrs Sex: Male : 1990 Arrival Date: 04/24/2018 Time: 17:24 Bed 28 Private MD: Johnathan Banks E Diagnosis: Hypotension;End stage renal disease;Syncope and collapse;Epilepsy and recurrent seizures Presentation: 04/24 17:28 Presenting complaint: Patient states: he finished HD and fell straight forward, unknown sv LOC. Pt may have had a seizure. Pt recently had a CVA. Transition of care: patient was not received from another setting of care. Onset of symptoms was April 24, 2018. Care prior to arrival: None. 17:28 Method Of Arrival: Ambulatory sv 17:28 Acuity: DAVID 3 sv 17:43 Risk Assessment: Do you want to hurt yourself or someone else? Patient reports no rv desire to harm self or others. Initial Sepsis Screen: Does the patient meet any 2 criteria? No. Patient's initial sepsis screen is negative. Does the patient have a suspected source of infection? No. Patient's initial sepsis screen is negative. Historical: - Allergies: 17:31 No Known Allergies; sv - PMHx: 17:31 CHF; Diabetes - IDDM; Hypertension; Hypothyroidism; CVA; sv - PSHx: 17:31 HD port; sv - Immunization history:: Adult Immunizations up to date. - Social history:: Smoking status: Patient/guardian denies using tobacco. - Ebola Screening: : No symptoms or risks identified at this time. Screenin:41 Abuse screen: Denies threats or abuse. Denies injuries from another. Nutritional rv screening: No deficits noted. Tuberculosis screening: No symptoms or risk factors identified. Fall Risk None identified. Assessment: 17:42 General: Appears in no apparent distress. comfortable, Behavior is calm, cooperative. rv Pain: Denies pain. Neuro: Level of Consciousness is awake, alert, obeys commands, Oriented to person, place, time, situation. Cardiovascular: Heart tones S1 S2 present. Respiratory: Airway is patent. GI: No signs and/or symptoms were reported involving the gastrointestinal system. : No signs and/or symptoms were reported regarding the genitourinary system. EENT: No signs and/or symptoms were reported regarding the EENT system. Derm: Skin is intact. 19:44 Reassessment: Patient appears in no apparent distress at this time. Patient and/or rv family updated on plan of care and expected duration. Pain level reassessed. Patient is alert, oriented x 3, equal unlabored respirations, skin warm/dry/pink. AWAITING ADMISSION ORDERS. 20:23 Reassessment: Pt family member in hallway stating that they want the CT results and ed1 that the patient does not want to be admitted. Vital Signs: 17:31 BP 127 / 73; Pulse 126; Resp 16; Pulse Ox 98% ; Weight 114 kg; Height 6 ft. 4 in. sv (193.04 cm); Pain 0/10; 18:51 BP 130 / 91; Pulse 90; Pulse Ox 100% ; rv 19:09 BP 139 / 94 Supine; Pulse 73; rv 19:09 BP 116 / 90 Sitting; Pulse 123; rv 19:09 BP 95 / 58 Standing; Pulse 140; rv 19:44 BP 120 / 91; Pulse 81; Pulse Ox 100% on R/A; rv 20:47 BP 139 / 101; Pulse 72; Pulse Ox 100% on R/A; rv 17:31 Body Mass Index 30.59 (114.00 kg, 193.04 cm) sv ED Course: 17:24 Patient arrived in ED. sb2 17:25 Johnathan Banks MD is Private Physician. sb2 17:30 Triage completed. sv 17:32 Arm band placed on right wrist. sv 17:46 Jeremias Bocanegra MD is Attending Physician. kdr 17:50 Patient has correct armband on for positive identification. Bed in low position. Call rv light in reach. Side rails up X2. Adult w/ patient. Pulse ox on. NIBP on. 18:03 CT completed. Patient tolerated procedure well. Patient moved to CT. Patient moved back mw3 from CT. 18:03 CT Head C Spine In Process Unspecified. EDMS 18:03 EKG done, by radiologic technologist chief. reviewed by Jeremias Bocanegra MD. sm3 18:07 XRAY Chest (1 view) In Process Unspecified. EDMS 18:32 Attending Physician role handed off by Jeremias Bocanegra MD ana 18:32 Shaheen Dumas MD is Attending Physician. ana 18:59 Inserted saline lock: 20 gauge in left wrist, using aseptic technique. Blood collected. ss 19:15 Courtney Phillip MD is Hospitalizing Provider. ana 20:27 Johnathan Banks MD is Referral Physician. ana 20:46 No provider procedures requiring assistance completed. IV discontinued, bleeding rv controlled, No redness/swelling at site. Pressure dressing applied. Administered Medications: 19:12 Drug: NS 0.9% 250 ml Route: IV; Rate: bolus; Site: left hand; rv 19:45 Follow up: Response: No adverse reaction; IV Status: Completed infusion rv Outcome: 19:16 Decision to Hospitalize by Provider. ana 20:48 Patient left the ED. rv Signatures: Dispatcher [employer] EDMS Loretta Lomas, RN RN Shaheen Jones MD MD cha Rittger, Kevin, MD MD kdr Smirch, Shelby, RN RN ss Rosanna Bishop, MANAGER OF COMPENSATION MANAGER OF COMPENSATION ed1 Opal Davalos sb2 Gretel Vera sm3 Miracle Torres mw3 Lane Richard RN RN rv
--- NOTE | 2018-04-24 19:16 | EDPHYS ---
Physician Documentation [facility] Name: Rodrigue Arerola Jr Age: 27 yrs Sex: Male : 1990 Arrival Date: 04/24/2018 Time: 17:24 Bed 28 Private MD: Johnathan Banks E ED Physician Shaheen Dumas HPI: 04/24 17:48 This 27 yrs old Black Male presents to ER via Ambulatory with complaints of Possible kdr Seizure. 17:48 The patient has experienced syncope, became unresponsive, collapsed. Onset: The kdr symptoms/episode began/occurred suddenly, just prior to arrival. Duration: This was a single episode, Few seconds. Context: the episode(s) was witnessed, by a bystander, Nursing staff, occurred dialysis, occurred while the patient was The patient had just completed dialysis and stood up when he nearly immediately had a brief (seconds) syncopal episode. Associated injury: Head/face: contusion, pain, swelling, Mouth/dental. Associated signs and symptoms: The patient has no apparent associated signs or symptoms. Current symptoms: Currently, the patient is not experiencing any symptoms, the patient feels back to baseline. The patient has not experienced similar symptoms in the past. The patient has not recently seen a physician. Historical: - Allergies: 17:31 No Known Allergies; sv - PMHx: 17:31 CHF; Diabetes - IDDM; Hypertension; Hypothyroidism; CVA; sv - PSHx: 17:31 HD port; sv - Immunization history:: Adult Immunizations up to date. - Social history:: Smoking status: Patient/guardian denies using tobacco. - Ebola Screening: : No symptoms or risks identified at this time. ROS: 17:48 Constitutional: Negative for fever, chills, and weight loss, Eyes: Negative for injury, kdr pain, redness, and discharge, Neck: Negative for injury, pain, and swelling, Cardiovascular: Negative for chest pain, palpitations, and edema, Respiratory: Negative for shortness of breath, cough, wheezing, and pleuritic chest pain, Abdomen/GI: Negative for abdominal pain, nausea, vomiting, diarrhea, and constipation, Back: Negative for injury and pain, : Negative for injury, bleeding, discharge, and swelling, MS/Extremity: Negative for injury and deformity, Skin: Negative for injury, rash, and discoloration. 17:48 ENT: Positive for Blood around teeth on mandible. Exam: 17:48 Constitutional: This is a well developed, well nourished patient who is awake, alert, kdr and in no acute distress. Head/Face: Normocephalic, atraumatic. Eyes: Pupils equal round and reactive to light, extra-ocular motions intact. Lids and lashes normal. Conjunctiva and sclera are non-icteric and not injected. Cornea within normal limits. Periorbital areas with no swelling, redness, or edema. Neck: Trachea midline, no thyromegaly or masses palpated, and no cervical lymphadenopathy. Supple, full range of motion without nuchal rigidity, or vertebral point tenderness. No Meningismus. Chest/axilla: Normal chest wall appearance and motion. Nontender with no deformity. No lesions are appreciated. Cardiovascular: Regular rate and rhythm with a normal S1 and S2. No gallops, murmurs, or rubs. Normal PMI, no JVD. No pulse deficits. Respiratory: Lungs have equal breath sounds bilaterally, clear to auscultation and percussion. No rales, rhonchi or wheezes noted. No increased work of breathing, no retractions or nasal flaring. Abdomen/GI: Soft, non-tender, with normal bowel sounds. No distension or tympany. No guarding or rebound. No evidence of tenderness throughout. Back: No spinal tenderness. No costovertebral tenderness. Full range of motion. Skin: Warm, dry with normal turgor. Normal color with no rashes, no lesions, and no evidence of cellulitis. MS/ Extremity: Pulses equal, no cyanosis. Neurovascular intact. Full, normal range of motion. Neuro: Awake and alert, GCS 15, oriented to person, place, time, and situation. Cranial nerves II-XII grossly intact. Motor strength 5/5 in all extremities. Sensory grossly intact. Cerebellar exam normal. Normal gait. Psych: Awake, alert, with orientation to person, place and time. Behavior, mood, and affect are within normal limits. 17:48 ENT: Dental exam: pain, Blood around anterior mandible teeth. Vital Signs: 17:31 BP 127 / 73; Pulse 126; Resp 16; Pulse Ox 98% ; Weight 114 kg; Height 6 ft. 4 in. sv (193.04 cm); Pain 0/10; 18:51 BP 130 / 91; Pulse 90; Pulse Ox 100% ; rv 19:09 BP 139 / 94 Supine; Pulse 73; rv 19:09 BP 116 / 90 Sitting; Pulse 123; rv 19:09 BP 95 / 58 Standing; Pulse 140; rv 19:44 BP 120 / 91; Pulse 81; Pulse Ox 100% on R/A; rv 20:47 BP 139 / 101; Pulse 72; Pulse Ox 100% on R/A; rv 17:31 Body Mass Index 30.59 (114.00 kg, 193.04 cm) sv MDM: 18:32 Patient medically screened. [facility] 04/25 17:26 Data reviewed: vital signs, lab test result(s), EKG, radiologic studies. Counseling: I kdr had a detailed discussion with the patient and/or guardian regarding: the historical points, exam findings, and any diagnostic results supporting the discharge/admit diagnosis, lab results, radiology results. 04/24 17:48 Order name: Basic Metabolic Panel; Complete Time: 20:26 [facility] 04/24 17:48 Order name: CBC with Diff; Complete Time: 20:26 [facility] 04/24 17:48 Order name: LFT's; Complete Time: 20:26 [facility] 04/24 17:48 Order name: Magnesium; Complete Time: 20:26 [facility] 04/24 17:48 Order name: NT PRO-BNP; Complete Time: 20:26 [facility] 04/24 17:48 Order name: PT-INR; Complete Time: 20:26 [facility] 04/24 17:48 Order name: CT Head C Spine; Complete Time: 19:10 [facility] 04/24 17:48 Order name: Orthostatic Blood Pressure; Complete Time: 17:54 [facility] 04/24 17:48 Order name: Ptt, Activated; Complete Time: 20:26 [facility] 04/24 17:48 Order name: Troponin (emerg Dept Use Only); Complete Time: 20:26 [facility] 04/24 17:48 Order name: XRAY Chest (1 view); Complete Time: 19:10 [facility] 04/24 17:48 Order name: EKG; Complete Time: 17:48 [facility] 04/24 19:24 Order name: CONS Physician Consult [facility] 04/24 17:48 Order name: Cardiac monitoring; Complete Time: 17:53 [facility] 04/24 17:48 Order name: EKG - Nurse/Tech; Complete Time: 17:53 [facility] 04/24 17:48 Order name: IV Saline Lock; Complete Time: 17:53 [facility] 04/24 17:48 Order name: Labs collected and sent; Complete Time: 17:53 [facility] 04/24 17:48 Order name: O2 Per Protocol; Complete Time: 17:53 [facility] 04/24 17:48 Order name: O2 Sat Monitoring; Complete Time: 17:53 [facility] 04/24 18:34 Order name: Seizure Precautions; Complete Time: 18:46 ana Administered Medications: 04/24 19:12 Drug: NS 0.9% 250 ml Route: IV; Rate: bolus; Site: left hand; rv 19:45 Follow up: Response: No adverse reaction; IV Status: Completed infusion rv Disposition: 04/24/18 20:28 Patient has left against medical advice. Impression: Hypotension, End stage renal disease, Syncope and collapse, Epilepsy and recurrent seizures. - Patients states they are going to Home. - Condition is Undetermined. Follow up: Johnathan Banks MD; When: Upon discharge from the Emergency Department; Reason: Recheck today's complaints, Continuance of care, Re-evaluation by your physician. - Problem is new. - Symptoms have improved. Signatures: Dispatcher [employer] EDMS Loretta Lomas RN RN Shaheen Jones MD MD cha Rittger, Kevin, MD MD kdr Garcia, Cindy, RN RN Lane Richard RN RN rv Corrections: (The following items were deleted from the chart) 20:17 19:16 Hospitalization Ordered by Courtney Phillip MD for Observation. Preliminary cg diagnosis is Hypotension; End stage renal disease; Weakness; Type 1 diabetes mellitus. Bed requested for Telemetry/MedSurg (observation). Status is Observation. Condition is Stable. Problem is new. Symptoms have improved. UTI on Admission? No. ana 20:27 20:17 04/24/2018 19:16 Hospitalization Ordered by Courtney Phillip MD for Observation. [facility] Preliminary diagnosis is Hypotension; End stage renal disease; Weakness; Type 1 diabetes mellitus. Bed requested for Telemetry/MedSurg (observation). Status is Observation. Condition is Stable. Problem is new. Symptoms have improved. UTI on Admission? No. cg 20:48 20:28 04/24/2018 20:28 Patients has left against medical advice. Impression: rv Hypotension; End stage renal disease; Syncope and collapse; Epilepsy and recurrent seizures. Patient states they are going to Home. Condition is Undetermined. Follow up: Johnathan Banks; When: Upon discharge from the Emergency Department; Reason: Recheck today's complaints, Continuance of care, Re-evaluation by your physician. Problem is new. Symptoms have improved. ana
[2018-04-24 19:27] LABS: ALT/SGPT 29 U/L (12-78); AST/SGOT 27 U/L (15-37); BUN Blood Urea Nitrogen 48 mg/dL (7-18); Bicarbonate 24 mmol/L (21-32); Glucose Level 141 mg/dL (74-106); Potassium 3.7 mmol/L (3.5-5.1); Sodium Level 137 mmol/L (136-145)
[2018-04-24 19:28] LABS: Albumin 3.8 g/dL (3.4-5.0); Alkaline Phosphatase 164 U/L (45-117); Bilirubin Direct < 0.1 mg/dL (0-0.2); Bilirubin Total 0.3 mg/dL (0.2-1.0); Magnesium 2.4 mg/dL (1.8-2.4); NT PRO-BNP 2579 pg/mL (<125); Protein, Total 9.7 g/dL (6.4-8.2)
[2018-04-24 20:59] VITALS: O2SAT 100
[2018-04-24 21:03] VITALS: BP 139/101
--- NOTE | 2018-04-25 06:52 | EKG ---
Test Date: 2018-04-24 Test Time: 17:52:26 [employer] Consultant: [employer] MEASUREMENT RESULTS: Intervals: Rate: 105 VT: 186 QRSD: 108 QT: 358 QTc: 473 [place]: P: 64 VT: 186 QRS: 111 T: 32 INTERPRETIVE STATEMENTS: Sinus tachycardia Possible Left atrial enlargement Right axis deviation Non specific T wave abnormality Abnormal ECG Compared to ECG 11/26/2017 13:49:17 No significant changes Electronically Signed On 04-25-18 06:51:36 CDT by Josep Vera
== END 2018-04-24 20:48 | disposition left against medical advice (07) ==
LOC: ER 17:21 → UNDOADMOB 20:07 → ERHOLD 20:07 → ER 20:48
DX: I95.9 Hypotension, unspecified (principal); I12.0 Hypertensive chronic kidney disease with stage 5 chronic kidney disease or end stage renal disease; E11.22 Type 2 diabetes mellitus with diabetic chronic kidney disease; N18.6 End stage renal disease; G40.802 Other epilepsy, not intractable, without status epilepticus; E03.9 Hypothyroidism, unspecified; Z79.4 Long term (current) use of insulin
CPT/HCPCS: 36415; 70450; 71045; 72125; 80048; 80076; 83735; 83880; 84484; 85025; 85610; 85730; 93005; 96360; 96365; 99284

== ENCOUNTER 2018-05-21 11:45 | Emergency (ER) | payer OTHER ==
--- OUTSIDE RECORDS SUMMARY | 2018-05-21 11:47 | XMS REPORT | Clinical Summary ---
:[address] [facility] Address [address] [place] [address] Phone Care Team Providers Name Role Phone [...] Encounters Date Type Specialty Care Team Description 05/15/2018 Office Visit General Surgery Lisa Greenberg, Leg wound, left, MD subsequent encounter (Primary Dx) 04/14/2018 Telephone General Surgery Lisa Greenberg, HomeHealth Order (Wet to dry order for Inner Calf wound) 02/18/2018 Office Visit General Surgery Lisa Greenberg, Status post surgery MD (Primary Dx) 01/31/2018 Procedure Pass 01/31/2018 Surgery Lisa Greenberg, DEBRIDEMENT/I&D,GULSHAN MESSER D EXTREMITY LOWER 01/30/2018 - Hospital Encounter General Internal Madhuri, 02/04/2018 Medicine MD Sarah 01/30/2018 Anesthesia Event Keith Rosales AA after 05/20/2017 Social History Tobacco Use Types Packs/Day Years Used Date Never Smoker Smokeless Tobacco: Never Used Alcohol Use Drinks/Week oz/Week Comments No Sex Assigned at Date Recorded Not on file Last Filed Vital Signs Vital Sign Reading Time Taken Blood Pressure 103/79 05/15/2018 4:39 PM CDT Pulse 132 02/18/2018 10:53 AM CDT Temperature 36.9 C (98.4 F) 05/15/2018 4:39 PM CDT Respiratory Rate 18 02/04/2018 3:00 PM CDT Oxygen Saturation 96% 02/04/2018 3:00 PM CDT Inhaled Oxygen Concentration - - Weight 115.5 kg (254 lb 9.6 oz) 05/15/2018 4:39 PM CDT Height 193 cm (6' 4") 05/15/2018 4:39 PM CDT Body Mass Index 30.99 05/15/2018 4:39 PM CDT Plan of Treatment Health Maintenance Due Date Last Done Comments INFLUENZA VACCINE 06/23/2018 Procedures Procedure Name Priority Date/Time Associated Diagnosis Comments DEBRIDEMENT/I&D,WOUND 01/31/2018 12:00 PM CDT Leg abscess EXTREMITY LOWER Special Needs DR. LILIAM ATWOODNO ASST after 05/20/2017 Results TRANSFUSION SERVICE REPORT - SCAN (02/05/2018 5:50 PM)Only the most recent of3 resultswithin the time period is included.EKG-SCANNED (02/05/2018 3:24 PM) Prepare Leuko-Red RBC (02/04/2018 11:54 PM)Only the most recent of2 resultswithin the time period is included. Component Value Ref Range CROSSMATCH COMPATIBLE Unit ABO O Pos UNIT NUMBER [id number] Status TRANSFUSED Blood Bank Product RED BLOOD CELLS PRODUCT CODE S1202Q17 CROSSMATCH COMPATIBLE Unit ABO O Pos UNIT NUMBER [id number] Status RETURNED FROM ISSUE Blood Bank Product RED BLOOD CELLS PRODUCT CODE U1011X42 Specimen Performing Laboratory Other [facility] [place] Prepare RBC (02/04/2018 11:54 PM) Component Value Ref Range CROSSMATCH COMPATIBLE Unit ABO O Pos UNIT NUMBER [id number] Status TRANSFUSED Blood Bank Product RED BLOOD CELLS PRODUCT CODE [id number] Specimen Performing Laboratory [facility] [place] POC-Glucose meter (02/04/2018 6:15 PM)Only the most recent of18 resultswithin the time period is included. Component Value Ref Range POC-Glucose Meter 129 (H)Comment: TESTED AT [facility] [address] 70 - 110 mg/dL [facility] [address] Specimen Performing Laboratory Blood [facility] [address] [address] CBC with platelet count + automated diff [...] - 0.20 K/L Specimen Performing Laboratory Blood [facility] [address] [place] [address] CBC with platelet count + automated diff (02/04/2018 2:07 PM)Only the most recent of5 resultswithin the time period is included. Specimen Performing Laboratory Blood Narrative The following orders were created for panel order CBC with platelet count + automated diff. Procedure Abnormality Status --------- ------ CBC with platelet count ...[[id number]]AbnormalFinal result Please view results for these tests [...] FOR DIALYSIS PATIENTS. Specimen Performing Laboratory Blood [facility] [address] [place] [address] Phosphorus (02/03/2018 4:48 PM) Component Value Ref Range Phosphorus 6.9 (H) 2.5 - 4.5 mg/dL Specimen Performing Laboratory Blood [facility] [address] [place], [place] [address] Hemoglobin and hematocrit (02/03/2018 8:06 AM) Component Value Ref Range Hemoglobin 6.5 (L) 13.0 - 16.8 GM/DL Hematocrit 19.0 (L) 40.0 - 50.0 % Specimen Performing Laboratory Blood - Central Venous Line [facility] [address] [place] [address] Manual Differential (02/03/2018 7:27 AM)Only the most recent of3 resultswithin the time period is included. Component Value Ref Range Total Counted WBC Morphology Normal Platelet Morphology Normal Anisocytosis 1+ few Specimen Performing Laboratory Blood - Central Venous Line [facility] [address] [place], [place] [address] Transfuse Leuko-Red RBC (02/02/2018 3:35 PM)Type and screen (02/02/2018 7:49 AM) Component Value Ref Range Ab Scrn NEGATIVE ABO Grouping O Rh Factor POS Specimen Performing [place] [address] Tissue Exam (01/31/2018 11:10 AM) Component Value Ref Range Case Report Surgical Pathology Report Case: [id number] Authorizing Provider:Lisa Greenberg MD Collected: 01/31/2018 1110 Ordering Location: [facility] Med Surg 5th FloorReceived: 01/31/2018 1249 Pathologist: Sherri Zarate MD Specimen:Leg, Left Lower, NECROTIC TISSUE LEFT LOWER LEG DIAGNOSIS SKIN AND SOFT TISSUE, LEFT LOWER LEG, EXCISION: - SKIN AND SUBCUTIS WITH NECROSIS, ACUTE AND CHRONIC INFLAMMATION, BACTERIAL COLONIZATION AND CALCIFICATION OF BLOOD VESSELS, CONSISTENT WITH CALCIPHYLAXIS (SEE COMMENT) Signing Pathologist Direct Phone Line: [phone] COMMENT Calcification of small and medium sized blood vessels are identified along with extensive necrosis of tissue. 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 CPT Code(s) 74580 CLINICAL HISTORY Not given SPECIMEN SOURCE Leg, left lower, necrotic tissue left lower leg GROSS DESCRIPTION The specimen is received in fixative and designated as "leg, left lower" and consists of skin and subcutaneous tissue (6.0 x 4.0 x 2.0 cm). The overlying skin is brown-patterson and smooth. No discrete lesions. The underlying soft tissue is soft and necrotic. Paper Machine Back Tender sections of the skin and soft tissue are submitted into A1 to A3. MG/pl MICROSCOPIC DESCRIPTION Performed Gross assessment was performed at [facility], Department of Pathology, [address] [place] [address], Technical component was performed at [facility], Department of Pathology, [address] [place] [address], Professional component was performed [facility], at Department of Pathology, [address] [place] [address], Specimen Performing Laboratory Tissue - Leg, Left Lower [facility] [address] [place] [address] Anaerobic culture (01/31/2018 11:05 AM) Component Value Ref Range Result No anaerobes isolated Specimen Performing Laboratory Abscess - Leg, Left Lower [facility] [address] [place] [address] Surgically obtained culture + gram stain (01/31/2018 11:05 AM) Component Value Ref Range Result 2+ Methicillin resistant Staphylococcus aureus (A) Gram Stain Result 4+ WBCs Gram Stain Result 1+ gram positive cocci in clusters Specimen Performing Laboratory Abscess - Leg, Left Lower [facility] [address] [place] [address] Organism Antibiotic Method Susceptibility Methicillin resistant Clindamycin [...] Performing Laboratory Blood - Central Venous Line [facility] [address] [place] [address] Hepatitis B surface antigen (01/31/2018 6:43 AM) Component Value Ref Range hepatitis B Surface Ag Nonreactive Nonreactive Specimen Performing Laboratory Blood - Central Venous Line [facility] [address] [place] [address] Prothrombin time/INR (01/30/2018 3:48 PM) Component Value Ref Range Protime 11.2 9.3 - 12.0 seconds INR 1.0 <=5.9 Specimen Performing Laboratory Blood [facility] [address] [place] [address] Narrative RECOMMENDED COUMADIN/WARFARIN INR THERAPY RANGES STANDARD DOSE: 2.0 - 3.0 Includes: PROPHYLAXIS for venous thrombosis, systemic embolization; TREATMENT for venous thrombosis and/or pulmonary embolus. HIGH RISK: Target INR is 2.5-3.5 for patients with mechanical heart valves. after 05/20/2017
--- OUTSIDE RECORDS SUMMARY | 2018-05-21 11:47 | XMS REPORT ---
:1990 [facility] [address] [place] [address] [address] [place] [address] Care Team Providers Name Role Phone ANNE [...] Department ID 2018-01-28 2018-01-28 Outpatient EDUARDO OLGUIN [facility] CARDIO [id number] 07:49:00 23:59:00 Results Test Description Test Time Test Comments Text Results Atomic Results Result Comments ANAEROBIC CULTURE 2018-02-05 10:36:00 Test Item Value Reference Range Comments CULTURE (BEAKER) (test gdwz=0768) No anaerobes isolated POCT-GLUCOSE [id number] 18:17:00 Test Item Value Reference Range Comments POC-GLUCOSE METER (BEAKER) 129 mg/dL 70-110 TESTED AT [facility] [address] [place] [address] (test kpiy=6047) [facility] [address] BASIC METABOLIC [id number] 14:45:00 Test Item Value Reference Range Comments SODIUM (BEAKER) (test 138 meq/L 135-148 gaiy=429) POTASSIUM (BEAKER) (test 4.6 meq/L 3.6-5.5 qkqg=929) CHLORIDE (BEAKER) (test 97 meq/L 98-106 urcn=500) CO2 (BEAKER) (test 19 meq/L 20-29 fohu=603) BLOOD UREA NITROGEN 27 mg/dL 10-26 (BEAKER) (test itny=786) CREATININE (BEAKER) (test 7.19 mg/dL 0.50-1.20 lrit=259) GLUCOSE RANDOM (BEAKER) 97 mg/dL 70-110 (test ybkk=077) CALCIUM (BEAKER) (test 9.8 mg/dL 8.5-10.5 bryc=126) EGFR (BEAKER) (test 11 mL/min/1.73 sq m ESTIMATED GFR IS NOT wans=6225) ACCURATE CREATININE CLEARANCE IN PREDICTING GLOMERULAR FILTRATION RATE. ESTIMATED GFR IS NOT APPLICABLE FOR DIALYSIS PATIENTS. CBC W/PLT COUNT & AUTO [id number] 14:35:00 Test Item Value Reference Range Comments WHITE BLOOD CELL COUNT (BEAKER) (test udpu=336) 7.8 K/ L 4.0-10.0 RED BLOOD CELL COUNT (BEAKER) (test thrd=590) 3.06 M/ L 4.20-5.80 HEMOGLOBIN (BEAKER) (test hbcc=785) 8.7 GM/DL 13.0-16.8 HEMATOCRIT (BEAKER) (test ubpy=726) 26.1 % 40.0-50.0 MEAN CORPUSCULAR VOLUME (BEAKER) (test xzgu=648) 85.5 fL 82.0-98.0 MEAN CORPUSCULAR HEMOGLOBIN (BEAKER) (test 28.4 pg 27.0-33.0 mvoz=511) MEAN CORPUSCULAR HEMOGLOBIN CONC (BEAKER) (test 33.2 GM/DL 32.0-36.0 cdov=977) RED CELL DISTRIBUTION WIDTH (BEAKER) (test 19.5 % 10.3-14.2 lsij=185) PLATELET COUNT (BEAKER) (test awfj=933) 264 K/CU MM 150-430 MEAN PLATELET VOLUME (BEAKER) (test jhjl=559) 7.4 fL 6.5-10.5 NEUTROPHILS RELATIVE PERCENT (BEAKER) (test 52 % mnxk=231) LYMPHOCYTES RELATIVE PERCENT (BEAKER) (test 29 % qooj=643) MONOCYTES RELATIVE PERCENT (BEAKER) (test 14 % xniy=844) EOSINOPHILS RELATIVE PERCENT (BEAKER) (test 5 % rrfc=785) BASOPHILS RELATIVE PERCENT (BEAKER) (test 1 % ynlu=870) NEUTROPHILS ABSOLUTE COUNT (BEAKER) (test 4.20 K/ L 1.80-8.00 mzmj=201) LYMPHOCYTES ABSOLUTE COUNT (BEAKER) (test 2.20 K/ L 1.48-4.50 rvbz=940) MONOCYTES ABSOLUTE COUNT (BEAKER) (test 1.10 K/ L 0.00-1.30 hykj=407) EOSINOPHILS ABSOLUTE COUNT (BEAKER) (test 0.30 K/ L 0.00-0.50 eqqc=642) BASOPHILS ABSOLUTE COUNT (BEAKER) (test 0.00 K/ L 0.00-0.20 phwv=080) POCT-GLUCOSE [id number] 11:29:00 Test Item Value Reference Range Comments POC-GLUCOSE METER (BEAKER) 189 mg/dL 70-[address] (test ihvk=4998) [facility] [address] POCT-GLUCOSE [id number] 05:51:00 Test Item Value Reference Range Comments POC-GLUCOSE METER (BEAKER) 117 mg/dL 70-[address] (test awbg=9209) [place] [id number] POCT-GLUCOSE [id number] 21:42:00 Test Item Value Reference Range Comments POC-GLUCOSE METER (BEAKER) 120 mg/dL 70-[address] (test rsfm=6194) [facility] [address] POCT-GLUCOSE [id number] 20:08:00 Test Item Value Reference Range Comments POC-GLUCOSE METER (BEAKER) 128 mg/dL 70-[address] (test jpgy=2472) [facility] [address] [id number] 17:01:00 Test Item Value Reference Range Comments PHOSPHORUS (BEAKER) (test smwu=297) 6.9 mg/dL 2.5-4.5 POCT-GLUCOSE [id number] 12:06:00 Test Item Value Reference Range Comments POC-GLUCOSE METER (BEAKER) 122 mg/dL 70-[address] (test juuw=2041) [facility] [address] TISSUE [id number] 09:54:00Surgical Pathology Report Case: [id number] Authorizing Provider: Lisa Greenberg MD Collected: 01/31/2018 1110 Ordering Location: [facility] Med Surg 5th Floor Received: 01/31/2018 1249 Pathologist: Sherri Zarate MD Specimen: Leg, Left Lower, NECROTIC TISSUE LEFT LOWER LEG SKIN AND SOFT TISSUE, LEFT LOWER LEG, EXCISION: - SKIN AND SUBCUTIS WITH NECROSIS, ACUTE AND CHRONIC INFLAMMATION, BACTERIAL COLONIZATION AND CALCIFICATION OF BLOOD VESSELS, CONSISTENT WITH CALCIPHYLAXIS (SEE COMMENT) Signing Pathologist Direct Phone Line: [phone] signed by Sherri Zarate MD on 02/03/2018 at 9:54 AMCalcification of small and medium sized blood vessels are identified along with extensive necrosis of tissue. 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 [address]Vce givenLeg, left lower, necrotic tissue left lower legThe specimen is received in fixative and designated as "leg, left lower" and consists of skin and subcutaneous tissue ( 6.0 x 4.0 x 2.0 cm). The overlying skin is brown-patterson and smooth. No discrete lesions. The underlying soft tissue is soft and necrotic. Rn Lab sectionsof the skin and soft tissue are submitted into A1 to A3. MG/pl Performed [facility], Department of Pathology, [address] [place] [address], [employer]. [facility], Department of Pathology, [address] [place] [address], Tel . [facility], Department of Pathology, [address] [place] [address], WIU W/PLT COUNT & AUTO [id number] 09:08:00 Test Item Value Reference Range Comments WHITE BLOOD CELL COUNT (BEAKER) (test twyo=501) 6.8 K/ L 4.0-10.0 RED BLOOD CELL COUNT (BEAKER) (test rtrq=308) 2.19 M/ L 4.20-5.80 HEMOGLOBIN (BEAKER) (test ncwl=709) 6.2 GM/DL 13.0-16.8 HEMATOCRIT (BEAKER) (test mtft=446) 18.8 % 40.0-50.0 MEAN CORPUSCULAR VOLUME (BEAKER) (test smbx=215) 85.9 fL 82.0-98.0 MEAN CORPUSCULAR HEMOGLOBIN (BEAKER) (test 28.4 pg 27.0-33.0 uzgy=955) MEAN CORPUSCULAR HEMOGLOBIN CONC (BEAKER) (test 33.1 GM/DL 32.0-36.0 hecc=894) RED CELL DISTRIBUTION WIDTH (BEAKER) (test 22.6 % 10.3-14.2 chob=113) PLATELET COUNT (BEAKER) (test rqno=111) 198 K/CU MM 150-430 MEAN PLATELET VOLUME (BEAKER) (test qsoq=243) 7.1 fL 6.5-10.5 NUCLEATED RED BLOOD CELLS (BEAKER) (test 0 /100 WBC 0-0 znkz=536) NEUTROPHILS RELATIVE PERCENT (BEAKER) (test 63 % gehn=200) LYMPHOCYTES RELATIVE PERCENT (BEAKER) (test 19 % yltu=725) MONOCYTES RELATIVE PERCENT (BEAKER) (test 13 % tpki=437) EOSINOPHILS RELATIVE PERCENT (BEAKER) (test 5 % fwhz=224) BASOPHILS RELATIVE PERCENT (BEAKER) (test 1 % wdzt=103) NEUTROPHILS ABSOLUTE COUNT (BEAKER) (test 4.30 K/ L 1.80-8.00 xzll=327) LYMPHOCYTES ABSOLUTE COUNT (BEAKER) (test 1.30 K/ L 1.48-4.50 ride=611) MONOCYTES ABSOLUTE COUNT (BEAKER) (test 0.90 K/ L 0.00-1.30 epdz=787) EOSINOPHILS ABSOLUTE COUNT (BEAKER) (test 0.30 K/ L 0.00-0.50 imnx=856) BASOPHILS ABSOLUTE COUNT (BEAKER) (test 0.00 K/ L 0.00-0.20 rctr=818) (MANUAL DIFFERENTIAL)2018-02-03 09:08:00 Test Item Value Reference Range Comments TOTAL COUNTED (BEAKER) (test yqzz=5761) WBC MORPHOLOGY (BEAKER) (test vxdj=694) Normal PLT MORPHOLOGY (BEAKER) (test zoqm=217) Normal ANISOCYTOSIS (BEAKER) (test litb=818) 1+ few BASIC METABOLIC [id number] 08:39:00 Test Item Value Reference Range Comments SODIUM (BEAKER) (test 131 meq/L 135-148 wcpu=973) POTASSIUM (BEAKER) (test 5.0 meq/L 3.6-5.5 ouet=142) CHLORIDE (BEAKER) (test 97 meq/L 98-106 ykdl=886) CO2 (BEAKER) (test 25 meq/L 20-29 qwyi=071) BLOOD UREA NITROGEN 41 mg/dL 10-26 (BEAKER) (test vmex=803) CREATININE (BEAKER) (test 9.74 mg/dL 0.50-1.20 kfuf=812) GLUCOSE RANDOM (BEAKER) 88 mg/dL 70-110 (test nxpp=577) CALCIUM (BEAKER) (test 8.7 mg/dL 8.5-10.5 klvn=508) EGFR (BEAKER) (test 8 mL/min/1.73 sq m ESTIMATED GFR IS NOT osjh=2036) ACCURATE CREATININE CLEARANCE IN PREDICTING GLOMERULAR FILTRATION RATE. ESTIMATED GFR IS NOT APPLICABLE FOR DIALYSIS PATIENTS. HEMOGLOBIN AND [id number] 08:25:00 Test Item Value Reference Range Comments HEMOGLOBIN (BEAKER) (test fbrv=318) 6.5 GM/DL 13.0-16.8 HEMATOCRIT (BEAKER) (test qcum=473) 19.0 % 40.0-50.0 POCT-GLUCOSE [id number] 21:42:00 Test Item Value Reference Range Comments POC-GLUCOSE METER (BEAKER) 121 mg/dL 70-[address] (test pycb=8872) [facility] [address] POCT-GLUCOSE [id number] 16:40:00 Test Item Value Reference Range Comments POC-GLUCOSE METER (BEAKER) 134 mg/dL 70-[address] (test ahjo=8869) [facility] [address] POCT-GLUCOSE [id number] 12:00:00 Test Item Value Reference Range Comments POC-GLUCOSE METER (BEAKER) 84 mg/dL 70-[address] (test axev=4604) [facility] [address] SURGICALLY OBTAINED CULTURE + GRAM [id number] 08:12:00 Test Item Value Reference Range Comments CULTURE (AKER) (test METHICILLIN RESISTANT 2+ Methicillin czfq=4856) STAPHYLOCOCCUS AUREUS resistant Staphylococcus aureus Ciprofloxacin (test code=7) Clindamycin (test code=10) Daptomycin (test code=59) Erythromycin (test code=4) Gentamicin (test code=18) Levofloxacin (test code=22) Linezolid (test code=40) Moxifloxacin (test code=36) Nitrofurantoin (test code=23) Oxacillin (test code=14) Rifampin (test code=43) Tetracycline (test code=2) Tigecycline (test jcvc=773) Trimethoprim + Sulfamethoxazole (test code=47) Vancomycin (test code=13) GRAM STAIN RESULT 4+ WBCs (BEAKER) (test ghuf=4246) GRAM STAIN RESULT 1+ gram positive cocci (BEAKER) (test in clusters urti=104650) CBC W/PLT COUNT & AUTO [id number] 06:19:00 Test Item Value Reference Range Comments WHITE BLOOD CELL COUNT (BEAKER) (test jxbz=507) 7.9 K/ L 4.0-10.0 RED BLOOD CELL COUNT (BEAKER) (test edzp=275) 2.16 M/ L 4.20-5.80 HEMOGLOBIN (BEAKER) (test ukcg=582) 6.2 GM/DL 13.0-16.8 HEMATOCRIT (BEAKER) (test yhxe=088) 18.9 % 40.0-50.0 MEAN CORPUSCULAR VOLUME (BEAKER) (test mkwb=605) 87.2 fL 82.0-98.0 MEAN CORPUSCULAR HEMOGLOBIN (BEAKER) (test 28.7 pg 27.0-33.0 lfya=258) MEAN CORPUSCULAR HEMOGLOBIN CONC (BEAKER) (test 32.9 GM/DL 32.0-36.0 xqul=400) RED CELL DISTRIBUTION WIDTH (BEAKER) (test 23.4 % 10.3-14.2 mzya=107) PLATELET COUNT (BEAKER) (test ekqr=132) 203 K/CU MM 150-430 MEAN PLATELET VOLUME (BEAKER) (test gtcq=974) 7.2 fL 6.5-10.5 NUCLEATED RED BLOOD CELLS (BEAKER) (test 0 /100 WBC 0-0 uzok=037) NEUTROPHILS RELATIVE PERCENT (BEAKER) (test 64 % fkmi=810) LYMPHOCYTES RELATIVE PERCENT (BEAKER) (test 18 % jvel=620) MONOCYTES RELATIVE PERCENT (BEAKER) (test 14 % rgsj=618) EOSINOPHILS RELATIVE PERCENT (BEAKER) (test 4 % rlhs=344) BASOPHILS RELATIVE PERCENT (BEAKER) (test 1 % bihk=141) NEUTROPHILS ABSOLUTE COUNT (BEAKER) (test 5.00 K/ L 1.80-8.00 wlxo=811) LYMPHOCYTES ABSOLUTE COUNT (BEAKER) (test 1.40 K/ L 1.48-4.50 xiea=646) MONOCYTES ABSOLUTE COUNT (BEAKER) (test 1.10 K/ L 0.00-1.30 kgou=318) EOSINOPHILS ABSOLUTE COUNT (BEAKER) (test 0.30 K/ L 0.00-0.50 vrde=222) BASOPHILS ABSOLUTE COUNT (BEAKER) (test 0.00 K/ L 0.00-0.20 ndff=958) POCT-GLUCOSE [id number] 06:01:00 Test Item Value Reference Range Comments POC-GLUCOSE METER (BEAKER) 122 mg/dL 70-[address] (test dink=5607) [facility] [address] POCT-GLUCOSE [id number] 21:23:00 Test Item Value Reference Range Comments POC-GLUCOSE METER (BEAKER) 178 mg/dL 70-[address] (test ysmw=1753) [facility] [address] POCT-GLUCOSE [id number] 16:29:00 Test Item Value Reference Range Comments POC-GLUCOSE METER (BEAKER) 165 mg/dL 70-[address] (test gral=1514) [facility] [address] POCT-GLUCOSE [id number] 11:59:00 Test Item Value Reference Range Comments POC-GLUCOSE METER (BEAKER) 131 mg/dL 70-[address] (test uoil=1061) [facility] [address] POCT-GLUCOSE [id number] 05:22:00 Test Item Value Reference Range Comments POC-GLUCOSE METER (BEAKER) 104 mg/dL 70-[address] (test tyet=8007) [facility] [address] POCT-GLUCOSE [id number] 22:48:00 Test Item Value Reference Range Comments POC-GLUCOSE METER (BEAKER) 122 mg/dL 70-[address] (test vdhn=5350) [facility] [address] HEPATITIS B SURFACE [id number] 20:44:00 Test Item Value Reference Range Comments HEPATITIS B SURFACE ANTIBODY (BEAKER) (test 10.2 mIU/mL <8.0 arqj=682) POCT-GLUCOSE [id number] 18:00:00 Test Item Value Reference Range Comments POC-GLUCOSE METER (BEAKER) 127 mg/dL 70-110 TESTED AT [facility] [address] (test xcgd=8670) [address] [facility] [address] BASIC METABOLIC [id number] 11:02:00 Test Item Value Reference Range Comments SODIUM (BEAKER) (test 137 meq/L 135-148 conn=935) POTASSIUM (BEAKER) (test 3.5 meq/L 3.6-5.5 kfck=521) CHLORIDE (BEAKER) (test 98 meq/L 98-106 hait=481) CO2 (BEAKER) (test 27 meq/L 20-29 ymvg=444) BLOOD UREA NITROGEN 11 mg/dL 10-26 (BEAKER) (test vyee=868) CREATININE (BEAKER) (test 3.99 mg/dL 0.50-1.20 fszi=610) GLUCOSE RANDOM (BEAKER) 84 mg/dL 70-110 (test dxkb=417) CALCIUM (BEAKER) (test 9.6 mg/dL 8.5-10.5 oykl=930) EGFR (BEAKER) (test 22 mL/min/1.73 sq m ESTIMATED GFR IS NOT ehdg=5752) ACCURATE CREATININE CLEARANCE IN PREDICTING GLOMERULAR FILTRATION RATE. ESTIMATED GFR IS NOT APPLICABLE FOR DIALYSIS PATIENTS. CBC W/PLT COUNT & AUTO [id number] 10:36:00 Test Item Value Reference Range Comments WHITE BLOOD CELL COUNT (BEAKER) (test xlph=606) 6.7 K/ L 4.0-10.0 RED BLOOD CELL COUNT (BEAKER) (test ssgs=572) 2.89 M/ L 4.20-5.80 HEMOGLOBIN (BEAKER) (test ydby=204) 8.2 GM/DL 13.0-16.8 HEMATOCRIT (BEAKER) (test lnss=440) 24.9 % 40.0-50.0 MEAN CORPUSCULAR VOLUME (BEAKER) (test kbtj=943) 86.1 fL 82.0-98.0 MEAN CORPUSCULAR HEMOGLOBIN (BEAKER) (test 28.3 pg 27.0-33.0 xmyy=088) MEAN CORPUSCULAR HEMOGLOBIN CONC (BEAKER) (test 32.9 GM/DL 32.0-36.0 lwpj=233) RED CELL DISTRIBUTION WIDTH (BEAKER) (test 24.6 % 10.3-14.2 aqtb=238) PLATELET COUNT (BEAKER) (test nrwv=836) 234 K/CU MM 150-430 MEAN PLATELET VOLUME (BEAKER) (test xece=354) 7.3 fL 6.5-10.5 NUCLEATED RED BLOOD CELLS (BEAKER) (test 0 /100 WBC 0-0 bmuu=147) NEUTROPHILS RELATIVE PERCENT (BEAKER) (test 64 % giao=280) LYMPHOCYTES RELATIVE PERCENT (BEAKER) (test 20 % fcjl=770) MONOCYTES RELATIVE PERCENT (BEAKER) (test 11 % oqdl=004) EOSINOPHILS RELATIVE PERCENT (BEAKER) (test 4 % vywt=751) BASOPHILS RELATIVE PERCENT (BEAKER) (test 1 % aexg=834) NEUTROPHILS ABSOLUTE COUNT (BEAKER) (test 4.30 K/ L 1.80-8.00 krin=182) LYMPHOCYTES ABSOLUTE COUNT (BEAKER) (test 1.30 K/ L 1.48-4.50 djwc=471) MONOCYTES ABSOLUTE COUNT (BEAKER) (test 0.80 K/ L 0.00-1.30 kqwz=760) EOSINOPHILS ABSOLUTE COUNT (BEAKER) (test 0.30 K/ L 0.00-0.50 dgxu=246) BASOPHILS ABSOLUTE COUNT (BEAKER) (test 0.00 K/ L 0.00-0.20 lppn=631) (MANUAL DIFFERENTIAL)2018-01-31 10:36:00 Test Item Value Reference Range Comments TOTAL COUNTED (BEAKER) (test soaz=5457) WBC MORPHOLOGY (BEAKER) (test bwvt=846) Normal PLT MORPHOLOGY (BEAKER) (test bzof=162) Normal ANISOCYTOSIS (BEAKER) (test bddv=801) 1+ few MICROCYTES (BEAKER) (test bsog=052) 1+ few POIKILOCYTES (BEAKER) (test afxd=230) 1+ few HEPATITIS B SURFACE [id number] 07:50:00 Test Item Value Reference Range Comments HEPATITIS B SURFACE ANTIGEN (2) (BEAKER) (test Nonreactive Nonreactive pvwr=3778) BASIC METABOLIC [id number] 07:45:00 Test Item Value Reference Range Comments SODIUM (BEAKER) (test 133 meq/L 135-148 xkat=312) POTASSIUM (BEAKER) (test 4.4 meq/L 3.6-5.5 sfyu=224) CHLORIDE (BEAKER) (test 97 meq/L 98-106 nxlm=292) CO2 (BEAKER) (test 25 meq/L 20-29 lpft=026) BLOOD UREA NITROGEN 25 mg/dL 10-26 (BEAKER) (test evfe=373) CREATININE (BEAKER) (test 7.52 mg/dL 0.50-1.20 qivk=822) GLUCOSE RANDOM (BEAKER) 89 mg/dL 70-110 (test fdnw=110) CALCIUM (BEAKER) (test 9.8 mg/dL 8.5-10.5 tyin=320) EGFR (BEAKER) (test 10 mL/min/1.73 sq m ESTIMATED GFR IS NOT tjgi=1499) ACCURATE CREATININE CLEARANCE IN PREDICTING GLOMERULAR FILTRATION RATE. ESTIMATED GFR IS NOT APPLICABLE FOR DIALYSIS PATIENTS. POCT-GLUCOSE [id number] 06:32:00 Test Item Value Reference Range Comments POC-GLUCOSE METER (BEAKER) 82 mg/dL 70-[address] (test bblh=3369) [facility] [address] POCT-GLUCOSE [id number] 17:47:00 Test Item Value Reference Range Comments POC-GLUCOSE METER (BEAKER) 106 mg/dL 70-[address] (test vcyt=7611) [facility] [address] CBC W/PLT COUNT & AUTO [id number] 16:41:00 Test Item Value Reference Range Comments WHITE BLOOD CELL COUNT (BEAKER) (test ofhj=787) 8.0 K/ L 4.0-10.0 RED BLOOD CELL COUNT (BEAKER) (test ccui=676) 3.02 M/ L 4.20-5.80 HEMOGLOBIN (BEAKER) (test uysf=714) 8.5 GM/DL 13.0-16.8 HEMATOCRIT (BEAKER) (test okni=154) 25.9 % 40.0-50.0 MEAN CORPUSCULAR VOLUME (BEAKER) (test btpo=936) 85.7 fL 82.0-98.0 MEAN CORPUSCULAR HEMOGLOBIN (BEAKER) (test 28.3 pg 27.0-33.0 ookx=595) MEAN CORPUSCULAR HEMOGLOBIN CONC (BEAKER) (test 33.0 GM/DL 32.0-36.0 oekx=817) RED CELL DISTRIBUTION WIDTH (BEAKER) (test 24.9 % 10.3-14.2 rdqv=653) PLATELET COUNT (BEAKER) (test jyor=716) 272 K/CU MM 150-430 MEAN PLATELET VOLUME (BEAKER) (test qvzp=145) 6.7 fL 6.5-10.5 NUCLEATED RED BLOOD CELLS (BEAKER) (test 0 /100 WBC 0-0 szmw=051) NEUTROPHILS RELATIVE PERCENT (BEAKER) (test 65 % pamz=328) LYMPHOCYTES RELATIVE PERCENT (BEAKER) (test 19 % kefh=697) MONOCYTES RELATIVE PERCENT (BEAKER) (test 12 % mzat=994) EOSINOPHILS RELATIVE PERCENT (BEAKER) (test 3 % qmak=506) BASOPHILS RELATIVE PERCENT (BEAKER) (test 1 % gibu=875) NEUTROPHILS ABSOLUTE COUNT (BEAKER) (test 5.20 K/ L 1.80-8.00 jger=188) LYMPHOCYTES ABSOLUTE COUNT (BEAKER) (test 1.50 K/ L 1.48-4.50 pvwg=450) MONOCYTES ABSOLUTE COUNT (BEAKER) (test 1.00 K/ L 0.00-1.30 aqyb=281) EOSINOPHILS ABSOLUTE COUNT (BEAKER) (test 0.20 K/ L 0.00-0.50 zrwv=082) BASOPHILS ABSOLUTE COUNT (BEAKER) (test 0.00 K/ L 0.00-0.20 pvdm=283) (MANUAL DIFFERENTIAL)2018-01-30 16:41:00 Test Item Value Reference Range Comments TOTAL COUNTED (BEAKER) (test qusw=1904) WBC MORPHOLOGY (BEAKER) (test mpqu=367) Normal PLT MORPHOLOGY (BEAKER) (test zdjo=052) Normal ANISOCYTOSIS (BEAKER) (test lroj=279) 2+ moderate HYPOCHROMIA (BEAKER) (test ipyw=072) 2+ moderate BASIC METABOLIC [id number] 16:21:00 Test Item Value Reference Range Comments SODIUM (BEAKER) (test 133 meq/L 135-148 kiad=917) POTASSIUM (BEAKER) (test 4.5 meq/L 3.6-5.5 rtjr=128) CHLORIDE (BEAKER) (test 96 meq/L 98-106 htnp=217) CO2 (BEAKER) (test 26 meq/L 20-29 wltb=785) BLOOD UREA NITROGEN 21 mg/dL 10-26 (BEAKER) (test iype=700) CREATININE (BEAKER) (test 6.41 mg/dL 0.50-1.20 xvam=516) GLUCOSE RANDOM (BEAKER) 93 mg/dL 70-110 (test vabg=368) CALCIUM (BEAKER) (test 10.0 mg/dL 8.5-10.5 fyfl=129) EGFR (BEAKER) (test 13 mL/min/1.73 sq m ESTIMATED GFR IS NOT zvzm=0544) ACCURATE CREATININE CLEARANCE IN PREDICTING GLOMERULAR FILTRATION RATE. ESTIMATED GFR IS NOT APPLICABLE FOR DIALYSIS PATIENTS. PROTHROMBIN TIME/[id number] 16:17:00 Test Item Value Reference Range Comments PROTIME (BEAKER) (test peyt=667) 11.2 seconds 9.3-12.0 INR (BEAKER) (test gxkd=797) 1.0 <=5.9 RECOMMENDED COUMADIN/WARFARIN INR THERAPY RANGESSTANDARD DOSE: 2.0 - 3.0 Includes: PROPHYLAXIS forvenous thrombosis, systemic embolization; TREATMENT for venous thrombosis and/or pulmonary embolus.HIGH RISK: Target INR is 2.5-3.5 for patients with mechanical heart valves.
[2018-05-21 12:57] LABS: Absolute Lymphocytes (CBC) 1.2 K/uL (0.7-4.9); Absolute Monocytes 1.2 K/uL (0.1-1.3); Basophils % 0.3 % (0-1.3); Eosinophils % 0.4 % (0-4.4); Lymphocytes % 9.9 % (15.3-44.8); MCH 30.5 pg (27.0-35.0); MCV 91.3 fL (80-100); MPV 8.8 fL (7.6-11.3); Monocytes % 9.6 % (3.3-12.3); RBC Red Blood Cell Count 3.73 M/uL (4.33-5.43)
[2018-05-21 13:11] LABS: Potassium 4.2 mmol/L (3.5-5.1)
--- NOTE | 2018-05-21 13:43 | RAD REPORT ---
EXAM DESCRIPTION: US - EXTREMITY VENOUS UNI LTD - 05/21/2018 1:14 pm CLINICAL HISTORY: redness;Swelling<Reason For Exam>redness;Swelling COMPARISON: Extremity Venous [facility] dated 11/26/2017<Comparisons>Extremity Venous [facility] dated 018 TECHNIQUE: Real-time sonographic evaluation of the left lower extremity deep venous system was perfo rmed. FINDINGS: Normal compressibility, flow augmentation, phasic flow and spontaneous flow are identified in the left lower extremity common femoral, superficial femoral, popliteal and posterior tibial vein s. No intraluminal filling defects seen. Multiple enlarged left groin lymph nodes are present up to 4.4 cm in maximum dimension. Lobulated mas s 2.3 cm in size in the left popliteal fossa is probably an enlarged lymph node as well. Doppler show s no abnormal blood flow pattern. IMPRESSION: No DVT in the left lower extremity. Enlarged groin and popliteal fossa lymph nodes probably secondary to a soft tissue infectious/inflamm atory process. Lymph nodes need ongoing monitoring to assure no malignant or aggressive process.
[2018-05-21] MEDS ORDERED: CLINDAMYCIN 600MG/D5W 600 MG/50 ML BAG IV ONE (14:21)
--- NOTE | 2018-05-21 14:34 | ER ---
Nurse's Notes [facility] Name: Rodrigue Arreola Jr Age: 27 yrs Sex: Male : 1990 Arrival Date: 05/21/2018 Time: 11:47 Bed 25 Private MD: Johnathan Banks E Diagnosis: Cellulitis of left lower limb Presentation: 05/21 11:55 Presenting complaint: Patient states: Instructed to come to ER by home health for left aj leg pain and fever of 103.5 on Saturday. Transition of care: patient was not received from another setting of care. Onset of symptoms was May 19, 2018. Risk Assessment: Do you want to hurt yourself or someone else? Patient reports no desire to harm self or others. Initial Sepsis Screen: Does the patient meet any 2 criteria? HR > 90 bpm. Does the patient have a suspected source of infection? No. Patient's initial sepsis screen is negative. Care prior to arrival: None. 11:55 Method Of Arrival: Wheelchair aj 11:55 Acuity: DAVID 3 aj Triage Assessment: 11:58 General: Appears in no apparent distress. comfortable, Behavior is calm, cooperative, aj appropriate for age. Pain: Complains of pain in left calf and left jimenez. Neuro: Level of Consciousness is awake, alert, obeys commands, Oriented to person, place, time, situation, Appropriate for age. Respiratory: Airway is patent Respiratory effort is even, unlabored, Respiratory pattern is regular, symmetrical. Derm: Skin is intact, is healthy with good turgor, Skin is pink, warm \T\ dry. normal. Musculoskeletal: Reports pain in left calf and left jimenez. Historical: - Allergies: 11:58 No Known Allergies; aj - Home Meds: 11:58 aspirin 325 mg Oral TbEC 1 tab once daily [Active]; clonidine HCl 0.2 mg Oral tab 1 tab aj 3 times per day [Active]; furosemide 40 mg Oral tab 1 tab 2 times per day [Active]; hydralazine 50 mg Oral tab 3 TIMES A DAY [Active]; isosorbide dinitrate 20 mg Oral tab 1 tab 2 times per day [Active]; labetalol 200 mg Oral tab 2 times per day [Active]; Levemir FlexTouch 100 unit/mL (3 mL) subcutaneous inpn [Active]; levothyroxine 75 mcg tab 1 tab once daily [Active]; metolazone 5 mg Oral tab 1 tab week [Active]; minoxidil 2.5 mg Oral tab 2 times per day [Active]; Norvasc 10 mg Oral tab 1 tab once daily [Active]; spironolactone 50 mg Oral tab 2 times per day [Active]; - PMHx: 11:58 CHF; CVA; Diabetes - IDDM; Hypertension; Hypothyroidism; aj - PSHx: 11:58 HD port; aj - Immunization history:: Adult Immunizations up to date. - Social history:: Smoking status: Patient/guardian denies using tobacco. - Ebola Screening: : Patient negative for fever greater than or equal to 101.5 degrees Fahrenheit, and additional compatible Ebola Virus Disease symptoms Patient denies exposure to infectious person Patient denies travel to an Ebola-affected area in the 21 days before illness onset No symptoms or risks identified at this time. - Family history:: not pertinent. - Hospitalizations: : No recent hospitalization is reported. Screenin:49 Abuse screen: Denies threats or abuse. Nutritional screening: No deficits noted. iw Tuberculosis screening: No symptoms or risk factors identified. Fall Risk IV access (20 points). Assessment: 12:00 General: Appears in no apparent distress. Behavior is cooperative, quiet. General: iw Reports fever for 2-3 days, feeling ill for 2-3 days, fatigue for 2-3 days. Pain: Complains of pain in left jimenez and left calf. Neuro: Level of Consciousness is awake, obeys commands, Oriented to person, place, time, Moves all extremities. Cardiovascular: Patient's skin is warm and dry. Derm: pt has healing wound to back of left leg and front left jimenez, being cared for by [facility] home health services. Musculoskeletal: Range of motion: intact in all extremities. 12:45 Reassessment: pt to US via wheelchair. iw 13:30 Reassessment: Patient and/or family updated on plan of care and expected duration. Pain tl3 level reassessed. Patient is alert, oriented x 3, equal unlabored respirations, skin warm/dry/pink. Vital Signs: 11:58 BP 111 / 77; Pulse 122; Resp 17; Temp 98.6; Pulse Ox 98% on R/A; Weight 117 kg; Height aj 6 ft. 4 in. (193.04 cm); 12:01 BP 129 / 91 RA Sitting (auto/lg); Pulse 104; Resp 19 S; Pulse Ox 96% on R/A; Pain 7/10; jp3 13:15 BP 125 / 77 LA Sitting (auto/lg); Pulse 82; Resp 19 S; Pulse Ox 100% on R/A; jp3 13:30 BP 119 / 78; Pulse 82; Resp 16; Pulse Ox 97% ; tl3 14:54 BP 129 / 94; Pulse 79; Resp 18; Pulse Ox 98% on R/A; tl3 11:58 Body Mass Index 31.40 (117.00 kg, 193.04 cm) aj ED Course: 11:47 Patient arrived in ED. sb2 11:47 Johnathan Banks MD is Private Physician. sb2 11:56 Triage completed. aj 11:58 Arm band placed on right wrist. Patient placed in an exam room. aj 12:02 Hans Nuñez MD is Attending Physician. rn 12:04 Bed in low position. Call light in reach. Side rails up X 1. Pulse ox on. NIBP on. jp3 12:19 Chandni Cvaazos, RN is Primary Nurse. iw 12:30 Missed attempt(s): 22 gauge in left wrist. jp3 12:35 Missed attempt(s): 22 gauge in left hand. jp3 12:45 Initial lab(s) drawn, by ED staff, sent to lab. First set of blood cultures drawn via jp3 20-gauge IV in Right A/C. Inserted saline lock: 20 gauge in right antecubital area, using aseptic technique. Blood collected. 12:49 Placed in gown. jp3 13:09 Primary Nurse role handed off by Chandni Cavazos, RN tl3 13:09 Lisa Martin, FRITZ is Primary Nurse. tl3 13:14 US Extremity Venous Unilateral Ltd In Process Unspecified. EDMS 13:14 Patient moved back from ultrasound. tl3 13:30 No provider procedures requiring assistance completed. tl3 14:26 ED physician to see patient. tl3 14:32 Johnathan Banks MD is Referral Physician. rn 14:52 IV discontinued, intact, bleeding controlled, No redness/swelling at site. Pressure tl3 dressing applied. Administered Medications: 14:23 Drug: Clindamycin 600 mg Route: IVPB; Infused Over: 30 mins; Site: right antecubital; tl3 Delivery: Primary tubing; 14:47 Follow up: IV Status: Completed infusion; IV Intake: 50ml tl3 Intake: 14:47 IV: 50ml; Total: 50ml. tl3 Outcome: 14:33 Discharge ordered by rn 14:52 Discharged to home ambulatory. tl3 14:52 Condition: stable 14:52 Discharge instructions given to patient, family, Instructed on discharge instructions, follow up and referral plans. medication usage, Demonstrated understanding of instructions, follow-up care, medications, Prescriptions given X 2. 14:53 Patient left the ED. tl3 Signatures: Dispatcher [employer] EDMS Eugenie Hdz RN Chandni Cha RN Hans Valerio MD MD rn Billeau, Sheri sb2 Lisa Martin RN RN tl3 Andrzej Lockwood jp3 Corrections: (The following items were deleted from the chart) 14:26 13:30 ED physician to see patient. tl3 tl3
--- NOTE | 2018-05-21 14:34 | EDPHYS ---
Physician Documentation [facility] Name: Rodrigue Arreola Jr Age: 27 yrs Sex: Male : 1990 Arrival Date: 05/21/2018 Time: 11:47 Bed 25 Private MD: Johnathan Banks E ED Physician Hans Nuñez HPI: 05/21 14:28 This 27 yrs old Black Male presents to ER via Wheelchair with complaints of Leg Pain. rn 14:28 The patient presents with pain. The complaints affect the left leg. Onset: The rn symptoms/episode began/occurred at an unknown time. Associated signs and symptoms: Pertinent positives: fever, warmth. Severity of symptoms: At their worst the symptoms were mild, in the emergency department the symptoms are unchanged. The patient has experienced similar episodes in the past. REports fever for a few days, dialysis knew about fever, given IV abx, came in to rule out DVT, reports warmth and pain of LLE. NO trauma. Last dialysis yesterday. . Historical: - Allergies: No Known Allergies; aj - Home Meds: aspirin 325 mg Oral TbEC 1 tab once daily [Active]; clonidine HCl 0.2 mg Oral tab 1 tab aj 3 times per day [Active]; furosemide 40 mg Oral tab 1 tab 2 times per day [Active]; hydralazine 50 mg Oral tab 3 TIMES A DAY [Active]; isosorbide dinitrate 20 mg Oral tab 1 tab 2 times per day [Active]; labetalol 200 mg Oral tab 2 times per day [Active]; Levemir FlexTouch 100 unit/mL (3 mL) subcutaneous inpn [Active]; levothyroxine 75 mcg tab 1 tab once daily [Active]; metolazone 5 mg Oral tab 1 tab week [Active]; minoxidil 2.5 mg Oral tab 2 times per day [Active]; Norvasc 10 mg Oral tab 1 tab once daily [Active]; spironolactone 50 mg Oral tab 2 times per day [Active]; - PMHx: CHF; CVA; Diabetes - IDDM; Hypertension; Hypothyroidism; aj - PSHx: HD port; aj - Immunization history:: Adult Immunizations up to date. - Social history:: Smoking status: Patient/guardian denies using tobacco. - Ebola Screening: : Patient negative for fever greater than or equal to 101.5 degrees Fahrenheit, and additional compatible Ebola Virus Disease symptoms Patient denies exposure to infectious person Patient denies travel to an Ebola-affected area in the 21 days before illness onset No symptoms or risks identified at this time. - Family history:: not pertinent. - Hospitalizations: : No recent hospitalization is reported. 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 Exam: 14:30 Constitutional: This is a well developed, well nourished patient who is awake, alert, rn and in no acute distress. Head/Face: Normocephalic, atraumatic. ENT: MMM Cardiovascular: Regular rate and rhythm with a normal S1 and S2. No gallops, murmurs, or rubs. Normal PMI, no JVD. No pulse deficits. Respiratory: Lungs have equal breath sounds bilaterally, clear to auscultation and percussion. No rales, rhonchi or wheezes noted. No increased work of breathing, no retractions or nasal flaring. Abdomen/GI: Soft, non-tender, with normal bowel sounds. No distension or tympany. No guarding or rebound. No evidence of tenderness throughout. MS/ Extremity: Pulses equal, no cyanosis. + LLE with warmth and faint erythema distal to knee, + left inguinal LAD, no bullae, no fluctuance Neuro: Awake and alert, GCS 15, oriented to person, place, time, and situation. Cranial nerves II-XII grossly intact. Motor strength 5/5 in all extremities. Sensory grossly intact. Cerebellar exam normal. Normal gait. Vital Signs: 11:58 BP 111 / 77; Pulse 122; Resp 17; Temp 98.6; Pulse Ox 98% on R/A; Weight 117 kg; Height aj 6 ft. 4 in. (193.04 cm); 12:01 BP 129 / 91 RA Sitting (auto/lg); Pulse 104; Resp 19 S; Pulse Ox 96% on R/A; Pain 7/10; jp3 13:15 BP 125 / 77 LA Sitting (auto/lg); Pulse 82; Resp 19 S; Pulse Ox 100% on R/A; jp3 13:30 BP 119 / 78; Pulse 82; Resp 16; Pulse Ox 97% ; tl3 14:54 BP 129 / 94; Pulse 79; Resp 18; Pulse Ox 98% on R/A; tl3 11:58 Body Mass Index 31.40 (117.00 kg, 193.04 cm) aj MDM: 12:02 Patient medically screened. rn 14:30 Differential diagnosis: cellulitis. Data reviewed: vital signs, nurses notes, lab test rn result(s), radiologic studies, doppler, and as a result, I will discharge patient. Counseling: I had a detailed discussion with the patient and/or guardian regarding: the historical points, exam findings, and any diagnostic results supporting the discharge/admit diagnosis, lab results, radiology results, the need for outpatient follow up, to return to the emergency department if symptoms worsen or persist or if there are any questions or concerns that arise at home. Special discussion: I discussed with the patient/guardian in detail that at this point there is no indication for admission to the hospital. It is understood, however, that if the symptoms persist or worsen the patient needs to return immediately for re-evaluation. ED course: Offered admission, patient wants to go home, sees dialysis in next 48 hours and they are aware of ongoing fever, DVT scan neg, procal normal, gave patient option of going home with good return precautions. . 05/21 12:25 Order name: CBC with Diff; Complete Time: 13:34 05/21 12:25 Order name: Basic Metabolic Panel; Complete Time: 13:34 05/21 12:25 Order name: Blood Culture Adult (2) 05/21 12:31 Order name: US Extremity Venous Unilateral Ltd; Complete Time: 13:46 05/21 13:34 Order name: Procalcitonin rn Administered Medications: 14:23 Drug: Clindamycin 600 mg Route: IVPB; Infused Over: 30 mins; Site: right antecubital; tl3 Delivery: Primary tubing; 14:47 Follow up: IV Status: Completed infusion; IV Intake: 50ml tl3 Disposition: 05/21/18 14:33 Discharged to Home. Impression: Cellulitis of left lower limb. - Condition is Stable. - Discharge Instructions: Cellulitis, Adult. - Prescriptions for Clindamycin HCl 300 mg Oral Capsule - take 1 capsule by ORAL route every 6 hours for 10 days; 40 capsule. Doxycycline Monohydrate 100 mg Oral Tablet - take 1 tablet by ORAL route every 12 hours for 10 days; 20 tablet. - Medication Reconciliation Form, Thank You Letter, Antibiotic Education, Prescription Opioid Use form. - Follow up: Johnathan Banks MD; When: 1 - 2 days; Reason: Recheck today's complaints, Re-evaluation by your physician. - Problem is an ongoing problem. - Symptoms have improved. Signatures: Dispatcher [employer] EDEugenie Ochoa RN Hans Rapp MD MD rn Lowrey, Tammy, RN RN tl3 Corrections: (The following items were deleted from the chart) 14:53 14:33 05/21/2018 14:33 Discharged to Home. Impression: Cellulitis of left lower limb. tl3 Condition is Stable. Forms are Medication Reconciliation Form, Thank You Letter, Antibiotic Education, Prescription Opioid Use. Follow up: Johnathan Banks; When: 1 - 2 days; Reason: Recheck today's complaints, Re-evaluation by your physician. Problem is an ongoing problem. Symptoms have improved. rn
[2018-05-21 15:13] VITALS: TEMP 98.6
[2018-05-21 15:17] VITALS: BP 119/78; O2SAT 97
== END 2018-05-21 14:53 | disposition home or self-care (01) ==
LOC: ER 11:45
DX: L03.116 Cellulitis of left lower limb (principal); E11.8 Type 2 diabetes mellitus with unspecified complications; I10 Essential (primary) hypertension; E03.9 Hypothyroidism, unspecified; I50.9 Heart failure, unspecified
CPT/HCPCS: 36415; 80048; 84145; 85025; 87040; 93971; 96365; 99284

== ENCOUNTER 2018-07-13 20:47 | Emergency (ER) | payer OTHER ==
--- OUTSIDE RECORDS SUMMARY | 2018-07-13 20:49 | XMS REPORT | Clinical Summary ---
:1990 Author Organization [facility] Address [address] [place] [address] Phone Care Team Providers Name Role Phone [...] 01/30/2018 Anesthesia Event Keith Rosales AA after 07/12/2017 Social History Tobacco Use Types Packs/Day Years [...] Special Needs DR. LILIAM ATWOODNO ASST after 07/12/2017 Results TRANSFUSION SERVICE REPORT - SCAN (02/05/2018 5:50 PM)Only the most recent of3 resultswithin the time period is included.EKG-SCANNED (02/05/2018 3:24 PM) Prepare Leuko-Red RBC (02/04/2018 11:54 PM)Only the most recent of2 resultswithin the time period is included. Component Value Ref Range CROSSMATCH COMPATIBLE Unit ABO O Pos UNIT NUMBER [id number] Status TRANSFUSED Blood Bank Product RED BLOOD CELLS PRODUCT CODE [id number] CROSSMATCH COMPATIBLE Unit ABO O Pos UNIT NUMBER [id number] Status RETURNED FROM ISSUE Blood Bank Product RED BLOOD CELLS PRODUCT CODE [id number] Specimen Performing Laboratory Other [facility] [place] Prepare RBC (02/04/2018 11:54 PM) Component Value Ref Range CROSSMATCH COMPATIBLE Unit ABO O Pos UNIT NUMBER [id number] Status TRANSFUSED Blood Bank Product RED BLOOD CELLS PRODUCT CODE [id number] Specimen Performing Laboratory [facility] [place] POC-Glucose meter (02/04/2018 6:15 PM)Only the most recent of18 resultswithin the time period is included. Component Value Ref Range POC-Glucose Meter 129 (H)Comment: TESTED AT [facility] [address] 70 - 110 mg/dL [facility] [address] Specimen Performing Laboratory Blood [facility] [address] [address] CBC with platelet count + automated diff [...] - 0.20 K/L Specimen Performing Laboratory Blood [facility] [address] [place] [address] CBC with platelet count + automated diff (02/04/2018 2:07 PM)Only the most recent of5 resultswithin the time period is included. Specimen Performing Laboratory Blood Narrative The following orders were created for panel order CBC with platelet count + automated diff. Procedure Abnormality Status --------- ------ CBC with platelet count ...[[id number]]AbnormalFinal result Please view results for these tests [...] FOR DIALYSIS PATIENTS. Specimen Performing Laboratory Blood [facility] [address] [place] [address] Phosphorus (02/03/2018 4:48 PM) Component Value Ref Range Phosphorus 6.9 (H) 2.5 - 4.5 mg/dL Specimen Performing Laboratory Blood [facility] [address] [place], [place] [address] Hemoglobin and hematocrit (02/03/2018 8:06 AM) Component Value Ref Range Hemoglobin 6.5 (L) 13.0 - 16.8 GM/DL Hematocrit 19.0 (L) 40.0 - 50.0 % Specimen Performing Laboratory Blood - Central Venous Line [facility] [address] [place] [address] Manual Differential (02/03/2018 7:27 AM)Only the most recent of3 resultswithin the time period is included. Component Value Ref Range Total Counted WBC Morphology Normal Platelet Morphology Normal Anisocytosis 1+ few Specimen Performing Laboratory Blood - Central Venous Line [facility] [address] [place], [place] [address] Transfuse Leuko-Red RBC (02/02/2018 3:35 PM)Type and screen (02/02/2018 7:49 AM) Component Value Ref Range Ab Scrn NEGATIVE ABO Grouping O Rh Factor POS Specimen Performing [place] [address] Tissue Exam (01/31/2018 11:10 AM) Component Value Ref Range Case Report Surgical Pathology Report Case: [id number] Authorizing Provider:Lisa Greenberg MD Collected: 01/31/2018 1110 Ordering Location: [facility] Med Surg 5th FloorReceived: 01/31/2018 1249 Pathologist: Sherri Zarate MD Specimen:Leg, Left Lower, NECROTIC TISSUE LEFT LOWER LEG DIAGNOSIS SKIN AND SOFT TISSUE, LEFT LOWER LEG, EXCISION: - SKIN AND SUBCUTIS WITH NECROSIS, ACUTE AND CHRONIC INFLAMMATION, BACTERIAL COLONIZATION AND CALCIFICATION OF BLOOD VESSELS, CONSISTENT WITH CALCIPHYLAXIS (SEE COMMENT) Signing Pathologist Direct Phone Line: [phone] COMMENT Calcification of small and medium sized blood vessels are identified along with extensive necrosis of tissue. 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 CPT Code(s) 93527 CLINICAL HISTORY Not given SPECIMEN SOURCE Leg, left lower, necrotic tissue left lower leg GROSS DESCRIPTION The specimen is received in fixative and designated as "leg, left lower" and consists of skin and subcutaneous tissue (6.0 x 4.0 x 2.0 cm). The overlying skin is brown-patterson and smooth. No discrete lesions. The underlying soft tissue is soft and necrotic. State Tested Nursing Assistant sections of the skin and soft tissue are submitted into A1 to A3. MG/pl MICROSCOPIC DESCRIPTION Performed Gross assessment was performed at [facility], Department of Pathology, [address] [place] [address], Technical component was performed at [facility], Department of Pathology, [address] [place] [address], Professional component was performed [facility], at Department of Pathology, [address] [place] [address], Specimen Performing Laboratory Tissue - Leg, Left Lower [facility] [address] [place] [address] Anaerobic culture (01/31/2018 11:05 AM) Component Value Ref Range Result No anaerobes isolated Specimen Performing Laboratory Abscess - Leg, Left Lower [facility] [address] [place] [address] Surgically obtained culture + gram stain (01/31/2018 11:05 AM) Component Value Ref Range Result 2+ Methicillin resistant Staphylococcus aureus (A) Gram Stain Result 4+ WBCs Gram Stain Result 1+ gram positive cocci in clusters Specimen Performing Laboratory Abscess - Leg, Left Lower [facility] [address] [place] [address] Organism Antibiotic Method Susceptibility Methicillin resistant Clindamycin [...] Performing Laboratory Blood - Central Venous Line [facility] [address] [place] [address] Hepatitis B surface antigen (01/31/2018 6:43 AM) Component Value Ref Range hepatitis B Surface Ag Nonreactive Nonreactive Specimen Performing Laboratory Blood - Central Venous Line [facility] [address] [place] [address] Prothrombin time/INR (01/30/2018 3:48 PM) Component Value Ref Range Protime 11.2 9.3 - 12.0 seconds INR 1.0 <=5.9 Specimen Performing Laboratory Blood [facility] [address] [place] [address] Narrative RECOMMENDED COUMADIN/WARFARIN INR THERAPY RANGES STANDARD DOSE: 2.0 - 3.0 Includes: PROPHYLAXIS for venous thrombosis, systemic embolization; TREATMENT for venous thrombosis and/or pulmonary embolus. HIGH RISK: Target INR is 2.5-3.5 for patients with mechanical heart valves. after 07/12/2017
--- OUTSIDE RECORDS SUMMARY | 2018-07-13 20:52 | XMS REPORT | Continuity of Care Document ---
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 tab, 0 Refill(s) labetalol 200 mg 200 mg=1 tab, No Longer oral tablet PO, BID, # 180 2017 [facility] tab, 0 Refill(s) Clonidine 0.2 mg=1 tab, Active Hydrochloride 0.2 PO, TID, # 60 2017 [facility] MG Oral Tablet tab, 0 Refill(s) Hydralazine 50 mg=1 tab, No Longer Hydrochloride 50 PO, TID, # 90 2017 [facility] MG Oral Tablet tab, 3 Refill(s) levothyroxine 75 75 microgram=1 No Longer mcg (0.075 mg) tab, PO, Active 2017 [facility] oral tablet Daily, # 30 tab, 0 Refill(s) Amlodipine 10 MG 10 mg=1 tab, Active Oral Tablet PO, Daily, # 2018 [facility] [Norvasc] 30 tab, 1 Refill(s) insulin detemir See Special No Longer 100 UNT/ML Instructions, Active 2017 [facility] Injectable SUB-Q, BID, Solution Inject 12 [Levemir] units at 9am and inject 8 units at 9pm, vial, 0 Refill(s) Furosemide 40 MG 40 mg=1 tab, No Longer Oral Tablet PO, BID, # 30 2017 [facility] tab, 0 Refill(s) minoxidil 2.5 mg 2.5 mg=1 tab, No Longer oral tablet PO, BID, # 360 Active 2018 [facility] tab, 0 Refill(s) pantoprazole 40 mg, Route: Inactive IVP, Drug 2017 [facility] form: INJ, Before Breakfast, kg, Start date: 12/06/17 7:30:00 CDT, Duration: 30 day, Stop date: 01/04/18 7:30:00 CDTNotes: For IV push reconstitute with 10 ml 0.9% sodium chloride and push over 2 minutes. (Same as: Protonix) Glucagon 1 mg, Route: No Longer IM, Drug form: Active 2017 [facility] PDR/INJ, PRN, Dosing Weight 160, kg, PRN Blood Glucose Results, Start date: 12/06/17 3:56:00 CDT, Duration: 30 day, Stop date: 01/05/18 3:55:00 CDT Dextrose 50% 25 gm, 50 mL, No Longer Syringe Route: IVP, Active 2017 [facility] Drug Form: INJ, Dosing Weight 160, kg, PRN, PRN Blood Glucose Results, Start date: 12/06/17 3:56:00 CDT, Duration: 30 day, Stop date: 01/05/18 3:55:00 CDT Insulin Lispro 4 unit, 0.04 No Longer mL, Route: Active 2017 [facility] SUB-Q, Drug form: SOLN, Sliding Scale, Dosing Weight 160, kg, PRN Blood Glucose Results, Start date: 12/06/17 3:56:00 CDT, Duration: 30 day, Stop date: 01/05/18 3:55:00 CDTNotes: (Same as: Humalog ) Roll in palms of hands gently; Do not shake `vigorously. "Single Patient Use Only " WASTE: F/P - Black; E - Municipal Trash Bin Stable for 28 days at room temperature. Expires in days from Date Saline Flush 0.9% 10 ml, Route: No Longer IVP, Drug Active 2017 [facility] Form: INJ, kg, PRN, PRN Line Flush, Start date: 12/06/17 3:39:00 CDT, Duration: 30 day, Stop date: 01/05/18 3:38:00 CDTNotes: (Same as: BD Posiflush) Nicardipine 40 mg, 200 mL, No Longer Rate: Titrate, Active 2017 [facility] Start Dose: 5 mg/hr, Titration: 2.5 mg/hour every 15 minutes, Goal(s): SBP 140-180mmHg., Max Dose: 15 mg/hr, Route: IV, Total Volume: 200, Start date: 12/06/17 3:39:00 CDT, Duration: 30 day, Stop date: 01/05/18 3:38:00 CDTNotes: Same as: Cardene Concentration: (0.2 mg /1 ml ) Acetaminophen 650 mg, 2 tab, No Longer Route: PO, Active 2017 [facility] Drug form: TAB, Q4H, kg, PRN Pain 1-3/Temp > 100.4 F, Start date: 12/06/17 3:39:00 CDT, Duration: 30 day, Stop date: 01/05/18 3:38:00 CDTNotes: Do not exceed 4 gm/day. (Same as: Tylenol) Bisacodyl 10 mg, 1 supp, No Longer Route: WV, Active 2017 [facility] Drug form: SUPP, Daily, kg, PRN Constipation, Start date: 12/06/17 3:39:00 CDT, Duration: 30 day, Stop date: 01/05/18 3:38:00 CDTNotes: (Same As: Dulcolax, Bisco-Lax) Allergies, Adverse Reactions, Alerts Substance Category Reaction Severity Reaction Status Date Comments Source type Reported Immunizations Immunization Date Given Site Status Last Updated Comments Source pneumococcal 12/20/2017 Not Given [facility] 13-valent vaccine<sup>1</rose p> Results Order Name Results Value Reference Date Interpretation Comments Source Range Chest 2 Chest 2 Clinical Indication: Coughing - pre-op 07/11 - views DX views - [facility] Comparison: 12/19/2017 Read by: Cee Ramirez MD Dictated Date/time: 07/11/18 13:35 FINDINGS: Electronically Signed by: Cee Ramirez MD 07/11/18 13:35 FINAL REPORT The PA and lateral chest radiographs shows normal lung volumes without interstitial or airspace opacities, pleural effusions or pneumothorax. The cardiomediastinal contours are normal. The trachea is midline. A tunneled left IJ catheter terminates at the proximal to mid SVC. There are no clinically significant osseous abnormalities noted. IMPRESSION: No chest radiographic evidence of acute cardiopulmonary abnormality. SL: [id number] CHEM PANEL Phosphorus 3.5 mg/dL 2.5 - 4.5 12/19 [facility] CHEM PANEL Magnesium 2.6 mg/dL 1.8 - 2.4 12/19 [facility] CHEM PANEL A/G Ratio 0.3 0.7 - 1.6 12/19 [facility] CHEM PANEL AGAP 14.2 meq/L 10.0 - 12/19 MH 20.0 [facility] CHEM PANEL B/C Ratio 10 6 - 25 12/19 [facility] CHEM PANEL Globulin 7.7 g/dL 2.7 - 4.2 12/19 [facility] CHEM PANEL eGFR 10 12/19 Result Comment: The eGFR is calculated using the CKD-EPI formula. In most young, healthy individuals the eGFR will be >90 mL/ min/1.73m2. The eGFR declines with age. An eGFR of 60-89 may be normal in mL/min/1.7 /2017 some populations, particularly the elderly, for whom the CKD-EPI formula has not been extensively validated. Use of the eGFR is not recommended in the following populations: [address] Individuals with unstable creatinine concentrations, including patients and those with serious co-morbid conditions. Patients with extremes in muscle mass or diet. The data above are obtained from the National Kidney Disease Education Program (NKDEP) which additionally recommends that when the eGFR is used in patients with extremes of body mass index for purposes of drug dosing, the eGFR should be multiplied by the estimated BMI. CHEM PANEL Bili Total 0.6 mg/dL 0.2 - 1.3 12/19 [facility] CHEM PANEL Alk Phos 223 unit/L 39 - 136 12/19 [facility] CHEM PANEL ALT 26 unit/L 0 - 65 12/19 [facility] CHEM PANEL AST 34 unit/L 0 - 37 12/19 [facility] CHEM PANEL Chloride Lvl 97 meq/L 95 - 109 12/19 [facility] CHEM PANEL Potassium 4.2 meq/L 3.5 - 5.1 12/19 Lv [facility] CHEM PANEL Calcium Lvl 9.6 mg/dL 8.5 - 10.5 12/19 [facility] CHEM PANEL CO2 26 meq/L 24 - 32 12/19 [facility] CHEM PANEL Glucose Lvl 190 mg/dL 70 - 99 12/19 [facility] CHEM PANEL Albumin Lvl 2.2 g/dL 3.5 - 5.0 12/19 [facility] CHEM PANEL Total 9.9 g/dL 6.4 - 8.4 12/19 [facility] CHEM PANEL Creatinine 6.80 mg/dL 0.50 - 12/19 Lvl 1.40 /2017 [facility] CHEM PANEL Sodium Lvl 133 meq/L 135 - 145 12/19 [facility] CHEM PANEL BUN 67 mg/dL 7 - 22 12/19 [facility] HEMATOLOGY PTT 33.9 s 22.9 - 12/19 35.8 [facility] HEMATOLOGY INR 1.29 0.85 - 12/19 MH 1.17 [facility] HEMATOLOGY PT 16.2 s 12.0 - 12/19 MH 14.7 [facility] HEMATOLOGY MPV 7.8 fL 7.4 - 10.4 12/19 [facility] HEMATOLOGY RBC 3.17 M/CMM 4.70 - 12/19 MH 6.10 [facility] HEMATOLOGY WBC 13.7 K/CMM 3.7 - 10.4 12/19 [facility] HEMATOLOGY Hct 24.4 % 42.0 - 12/19 54.0 /2017 [facility] HEMATOLOGY Hgb 7.9 g/dL 14.0 - 12/19 18.0 [facility] HEMATOLOGY MCHC 32.4 g/dL 32.0 - 12/19 MH 36.0 [facility] HEMATOLOGY MCH 24.9 pg 27.0 - 12/19 31.0 [facility] HEMATOLOGY MCV 77.1 fL 80.0 - 12/19 94.0 [facility] HEMATOLOGY Platelet 317 K/CMM 133 - 450 12/19 [facility] HEMATOLOGY RDW 20.7 % 11.5 - 12/19 14.5 [facility] HEMATOLOGY Monocytes # 1.0 K/CMM 0.0 - 0.8 12/19 [facility] HEMATOLOGY Lymphocytes 1.0 K/CMM 1.0 - 5.5 12/19 MH /2017 [facility] HEMATOLOGY Microcyte 1+ None Seen 12/19 [facility] *ABN* (12/19/17 4:36 AM) HEMATOLOGY Eosinophils 0.5 K/CMM 0.0 - 0.5 12/19 # /2017 [facility] HEMATOLOGY Eosinophils 3.7 % 0.0 - 4.0 12/19 [facility] HEMATOLOGY Monocytes 7.1 % 2.0 - 12.0 12/19 [facility] HEMATOLOGY Lymphocytes 7.0 % 20.0 - 12/19 MH 40.0 [facility] HEMATOLOGY Segs-Bands # 11.2 K/CMM 1.5 - 8.1 12/19 [facility] HEMATOLOGY Basophils 0.2 % 0.0 - 1.0 12/19 [facility] HEMATOLOGY Segs 82.0 % 45.0 - 12/19 75.0 [facility] PARATHYROI Ca Ion WB 1.19 1.05 - 12/19 D PROFILE mMol/L . [facility] PARATHYROI Ca Norm WB 1.18 1.05 - 12/19 D PROFILE mMol/L . [facility] Chest Chest 1view Clinical Indication: - resp failure; 12/19 - 1view DX DX /2017 - [facility] Comparison: 12/17/2017 Read by: Joel Enriquez MD Dictated Date/time: 12/19/17 08:37 FINDINGS: Electronically Signed by: Joel Enriquez MD 12/19/17 08:49 FINAL REPORT AP chest radiographs shows normal lung volumes without interstitial or airspace opacities, pleural effusions or pneumothorax. There is a right internal jugular catheter dialysis catheter in stable position. The heart is mildly moderately enlarged but stable. There is no pulmonary vascular congestion. The trachea is midline. The tracheostomy tube is in stable position. There are no clinically significant osseous abnormalities noted. IMPRESSION: 1. Left lower lobe airspace disease is unchanged. 2. Support devices are stable. SL: [id number] CHEM PANEL Lactic Acid 1.0 mMol/L 0.5 - 2.2 12/19 Lvl [facility] CHEM PANEL A/G Ratio 0.3 0.7 - 1.6 12/18 [facility] CHEM PANEL Globulin 7.9 g/dL 2.7 - 4.2 12/18 [facility] CHEM PANEL B/C Ratio 10 6 - 25 12/18 [facility] CHEM PANEL AGAP 18.6 meq/L 10.0 - 12/18 MH 20.0 [facility] CHEM PANEL eGFR 8 12/18 Result Comment: The eGFR is calculated using the CKD-EPI formula. In most young, healthy individuals the eGFR will be >90 mL/ min/1.73m2. The eGFR declines with age. An eGFR of 60-89 may be normal in mL/min/1. some populations, particularly the elderly, for whom the CKD-EPI formula has not been extensively validated. Use of the eGFR is not recommended in the following populations: [place] [address] Individuals with unstable creatinine concentrations, including patients and those with serious co-morbid conditions. Patients with extremes in muscle mass or diet. The data above are obtained from the National Kidney Disease Education Program (NKDEP) which additionally recommends that when the eGFR is used in patients with extremes of body mass index for purposes of drug dosing, the eGFR should be multiplied by the estimated BMI. CHEM PANEL Calcium Lvl 10.0 mg/dL 8.5 - 10.5 12/18 [facility] CHEM PANEL CO2 25 meq/L 24 - 32 12/18 [facility] CHEM PANEL Albumin Lvl 2.4 g/dL 3.5 - 5.0 12/18 [facility] CHEM PANEL Total 10.3 g/dL 6.4 - 8.4 12/18 [facility] CHEM PANEL Alk Phos 224 unit/L 39 - 136 12/18 [facility] CHEM PANEL AST 37 unit/L 0 - 37 12/18 [facility] CHEM PANEL ALT 26 unit/L 0 - 65 12/18 [facility] CHEM PANEL Bili Total 0.7 mg/dL 0.2 - 1.3 12/18 [facility] CHEM PANEL Potassium 4.6 meq/L 3.5 - 5.1 12/18 MH Lvl [facility] CHEM PANEL Sodium Lvl 133 meq/L 135 - 145 12/18 [facility] CHEM PANEL Chloride Lvl 94 meq/L 95 - 109 12/18 [facility] CHEM PANEL Creatinine 8.40 mg/dL 0.50 - 12/18 MH Lvl 1.40 [facility] CHEM PANEL BUN 82 mg/dL 7 - 22 12/18 [facility] CHEM PANEL Glucose Lvl 191 mg/dL 70 - 99 12/18 [facility] HEMATOLOGY Monocytes 7.8 % 2.0 - 12.0 12/18 [facility] HEMATOLOGY Lymphocytes 7.5 % 20.0 - 12/18 40.0 [facility] HEMATOLOGY Segs 81.2 % 45.0 - 12/18 75.0 [facility] HEMATOLOGY Segs-Bands # 10.2 K/CMM 1.5 - 8.1 12/18 [facility] HEMATOLOGY Eosinophils 3.4 % 0.0 - 4.0 12/18 [facility] HEMATOLOGY Basophils 0.1 % 0.0 - 1.0 12/18 [facility] HEMATOLOGY Microcyte 1+ None Seen 12/18 [facility] *ABN* (12/18/17 4:27 AM) HEMATOLOGY Monocytes # 1.0 K/CMM 0.0 - 0.8 12/18 [facility] HEMATOLOGY Lymphocytes 0.9 K/CMM 1.0 - 5.5 12/18 [facility] HEMATOLOGY Eosinophils 0.4 K/CMM 0.0 - 0.5 12/18 [facility] HEMATOLOGY PTT 31.6 s 22.9 - 12/18 35.8 [facility] HEMATOLOGY PT 16.3 s 12.0 - 12/18 14.7 [facility] HEMATOLOGY INR 1.30 0.85 - 12/18 1.17 [facility] HEMATOLOGY RBC 3.23 M/CMM 4.70 - 12/18 6.10 [facility] HEMATOLOGY WBC 12.5 K/CMM 3.7 - 10.4 12/18 [facility] MPV 8.3 fL 7.4 - 10.4 12/18 [facility] HEMATOLOGY RDW 20.2 % 11.5 - 12/18 14.5 [facility] HEMATOLOGY Platelet 373 K/CMM 133 - 450 12/18 [facility] MCHC 33.0 g/dL 32.0 - 12/18 36.0 [facility] HEMATOLOGY MCH 25.0 pg 27.0 - 12/18 31.0 [facility] Hgb 8.1 g/dL 14.0 - 12/18 18.0 [facility] Hct 24.5 % 42.0 - 12/18 54.0 [facility] MCV 75.7 fL 80.0 - 12/18 94.0 [facility] BLOOD BANK FFP product Product available 1 12/17 Result Comment: 2017 14:47 [id number] RESULTS /2017 Plasma available, notified Katie LING at 12/17/2017 14:47 by AB. Lott (12/17/17 2:29 PM) Chest Chest 1view Patient Name: BEKAH STEPHENS 12/17 - 1view DX DX - [facility] : 1990; Age: 27 years y/o Male MR: [id number] Read by: Sanchez Call MD Dictated Date/time: 12/17/17 13:20 Electronically Signed by: Sanchez Call MD 12/17/17 13:23 FINAL REPORT Study: Chest 1view DX 12/17/2017 11:53 AM CDT Ordering Physician: Courtney Phillip MD Clinical Indication: - Acute agonal breathing/back on ACVC; Comparison: 12/14/2017 1 view chest Tracheostomy tube, dialysis catheter in place. Stable cardiomegaly. Pulmonary vasculature appears mildly congested without definite pulmonary edema. Left lung base obscured by large cardiac silhouette, as before. No new pleural effusion or pneumothorax appreciated. 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 SL: [id number] CHEM PANEL eGFR 11 12/17 Result Comment: The eGFR is calculated using the CKD-EPI formula. In most young, healthy individuals the eGFR will be >90 mL/ min/1.73m2. The eGFR declines with age. An eGFR of 60-89 may be normal in mL/min/1. some populations, particularly the elderly, for whom the CKD-EPI formula has not been extensively validated. Use of the eGFR is not recommended in the following populations: [facility] 3m2 Individuals with unstable creatinine concentrations, including patients and those with serious co-morbid conditions. Patients with extremes in muscle mass or diet. The data above are obtained from the National Kidney Disease Education Program (NKDEP) which additionally recommends that when the eGFR is used in patients with extremes of body mass index for purposes of drug dosing, the eGFR should be multiplied by the estimated BMI. CHEM PANEL B/C Ratio 10 6 - 25 12/17 [facility] CHEM PANEL Total 10.4 g/dL 6.4 - 8.4 12/17 [facility] CHEM PANEL Calcium Lvl 9.4 mg/dL 8.5 - 10.5 12/17 [facility] CHEM PANEL Alk Phos 235 unit/L 39 - 136 12/17 [facility] CHEM PANEL Bili Total 0.6 mg/dL 0.2 - 1.3 12/17 [facility] CHEM PANEL ALT 26 unit/L 0 - 65 12/17 [facility] CHEM PANEL AST 42 unit/L 0 - 37 12/17 [facility] CHEM PANEL A/G Ratio 0.3 0.7 - 1.6 12/17 [facility] CHEM PANEL Albumin Lvl 2.2 g/dL 3.5 - 5.0 12/17 [facility] CHEM PANEL Globulin 8.2 g/dL 2.7 - 4.2 12/17 [facility] CHEM PANEL AGAP 13.3 meq/L 10.0 - 12/17 20.0 [facility] CHEM PANEL Chloride Lvl 95 meq/L 95 - 109 12/17 [facility] CHEM PANEL CO2 30 meq/L 24 - 32 12/17 [facility] CHEM PANEL Creatinine 6.30 mg/dL 0.50 - 12/17 Lvl 1.40 [facility] CHEM PANEL Sodium Lvl 134 meq/L 135 - 145 12/17 [facility] CHEM PANEL Glucose Lvl 169 mg/dL 70 - 99 12/17 [facility] CHEM PANEL Potassium 4.3 meq/L 3.5 - 5.1 12/17 Lvl /2017 [facility] CHEM PANEL BUN 60 mg/dL 7 - 22 12/17 [facility] HEMATOLOGY Lymphocytes 1.0 K/CMM 1.0 - 5.5 12/17 [facility] HEMATOLOGY Eosinophils 3.7 % 0.0 - 4.0 12/17 [facility] HEMATOLOGY Monocytes 8.1 % 2.0 - 12.0 12/17 [facility] HEMATOLOGY Microcyte 1+ None Seen 12/17 [facility] *ABN* (12/17/17 3:52 AM) HEMATOLOGY Eosinophils 0.3 K/CMM 0.0 - 0.5 12/17 [facility] HEMATOLOGY Monocytes # 0.7 K/CMM 0.0 - 0.8 12/17 [facility] HEMATOLOGY Segs 76.3 % 45.0 - 12/17 75. [facility] HEMATOLOGY Lymphocytes 11.5 % 20.0 - 12/17 40. [facility] HEMATOLOGY Segs-Bands # 6.9 K/CMM 1.5 - 8.1 12/17 [facility] HEMATOLOGY Basophils 0.4 % 0.0 - 1.0 12/17 [facility] HEMATOLOGY PTT 33.8 s 22.9 - 12/17 MH 35.8 [facility] HEMATOLOGY PT 15.8 s 12.0 - 12/17 MH 14.7 [facility] HEMATOLOGY INR 1.25 0.85 - 12/17 MH 1.17 [facility] HEMATOLOGY MCHC 33.5 g/dL 32.0 - 12/17 MH 36.0 /2017 [facility] MCH 25.5 pg 27.0 - 12/17 MH 31.0 /2017 [facility] MPV 8.0 fL 7.4 - 10.4 12/17 [facility] HEMATOLOGY Platelet 368 K/CMM 133 - 450 12/17 [facility] HEMATOLOGY RDW 19.9 % 11.5 - 12/17 MH 14.5 [facility] Hgb 8.4 g/dL 14.0 - 12/17 18.0 [facility] Hct 25.0 % 42.0 - 12/17 MH 54.0 [facility] RBC 3.29 M/CMM 4.70 - 12/17 MH 6.10 [facility] MCV 76.0 fL 80.0 - 12/17 94.0 [facility] WBC 9.1 K/CMM 3.7 - 10.4 12/17 [facility] BLOOD BANK FFP product Product available 12/16 Result Comment: 2017 11:08 [id number] FFP available, notified Evelyn Lopes 11:08 at 12/16/2017 11:08 by LJ. Lott (12/16/17 10:57 AM) CHEM PANEL Magnesium 2.9 mg/dL 1.8 - 2.4 12/16 [facility] CHEM PANEL Phosphorus 4.3 mg/dL 2.5 - 4.5 12/16 [facility] PARATHYROI Ca Ion WB 1.17 1.05 - 12/16 D PROFILE mMol/L 10.17 [facility] PARATHYROI Ca Norm WB 1.18 1.05 - 12/16 D PROFILE mMol/L 10.17 [facility] CHEM PANEL Magnesium 2.6 mg/dL 1.8 - 2.4 12/15 Lv [facility] CHEM PANEL Phosphorus 4.1 mg/dL 2.5 - 4.5 12/15 /2017 [facility] PARATHYROI Ca Ion WB 1.08 1.05 - 12/15 D PROFILE mMol/L . [facility] PARATHYROI Ca Norm WB 1.13 1.05 - 12/15 D PROFILE mMol/L . [facility] CHEM PANEL Lactic Acid 0.5 mMol/L 0.5 - 2.2 12/14 Lvl [facility] BLOOD BANK ABO/Rh O POS 12/14 RESULTS /2017 [facility] BLOOD BANK Antibody Negative 12/14 RESULTS Scrn /2017 [facility] (12/14/17 9:47 AM) BLOOD BANK RBC product Product available 12/14 Result Comment: 2017 10:47 [id number] RESULTS Blood available, notified BRIAN at 12/14/2017 10:47 by LL. [facility] (12/14/17 8:19 AM) CARDIAC BNP 221 pg/mL <=100 12/14 ENZYMES pg/mL [facility] HEMATOLOGY Basophils # 0.1 K/CMM 0.0 - 0.2 12/14 [facility] Chest Chest 1view EXAM: Chest 1view DX 12/14 - 1view DX DX [facility] DATE: 12/14/2017 3:00 AM CDT INDICATION: - on vent- monitor for pulmonary edema Read by: Murphy Dinero MD Dictated Date/time: 12/14/17 10:03 COMPARISON: 12/12/2017. Electronically Signed by: Murphy Dinero MD 12/14/17 10:05 FINAL REPORT IMPRESSION: Stable severely enlarged cardiac silhouette. Mild vascular congestive change is present. Limited evaluation of the left lower lobe. Tracheostomy tube and right central line are unchanged. No significant pneumothorax detected. SL: [id number] Chest Chest 1view Study: Chest 1view DX 12/12 - 1view DX DX - [facility] Clinical Indication: - tachypnea Read by: Abdoul Greenberg MD Dictated Date/time: 12/12/17 18:53 Electronically Signed by: Abdoul Greenberg MD 12/12/17 18:54 FINAL REPORT Comparison: Chest x-ray from 12/12/2017 at 5:15 AM FINDINGS: Tracheostomy tube and right internal jugular central line are stable. Cardiac silhouette remains enlarged. Central vascular congestion with mild pulmonary edema is stable. Left basilar consoli dation is unchanged. Small underlying left pleural effusion cannot be excluded. There is no pneumothorax. The osseous structures are unremarkable. IMPRESSION: Stable exam of the chest SL: SLEE-PC Chest Chest 1view CHEST RADIOGRAPH SINGLE VIEW 12/12 - 1view DX DX [facility] INDICATION: Respiratory failure Read by: Jose Petit MD Dictated Date/time: 12/12/17 06:14 Electronically Signed by: Jose Petit MD 12/12/17 06:15 FINAL REPORT COMPARISON: Chest radiographs 12/11/2017 IMPRESSION: The pre-existing life support line and tubes are unchanged. The cardiac silhouette appears enlarged. There is no significant interval change in pulmonary vascular congestion. Left basilar opacification is grossly stable. No pneumothorax is seen. SL:16 Chest Chest 1view Patient Name: BEKAH STEPHENS 12/11 - 1view DX DX [facility] : 1990; Age: 27 years Male MR: [id number] Read by: Zechariah Mcintosh MD Dictated Date/time: 12/11/17 07:34 Electronically Signed by: Zechariah Mcintosh MD 12/11/17 07:35 FINAL REPORT Study: Chest 1view DX Order Time: 12/11/2017 3:00 AM CDT Clinical Indication: - intubated eval for pulmonary edema. COMPARISON: November 2017 x-rays back to December 07. FINDINGS: Views: 1 SUPPORT LINES: ET tube tip is 4.6 cm above the teena. Feeding tube tip is below the diaphragm. Right catheter tips are in the mid to distal superior vena cava. LUNGS: There is normal lung volume. Stable retrocardiac infiltrate. Stable small left effusion. There is no pneumothorax. Decreased edematous change. MEDIASTINUM: The cardiac silhouette is enlarged. The trachea is midline. BONES: There are no clinically significant osseous abnormalities noted. IMPRESSION: 1. Stable retrocardiac infiltrate and effusion. Decreased edematous change. SL: [id number] BODY Protein CSF 27 mg/dL 15 - 45 12/10 FLUIDS [facility] BODY Glucose CSF 99 mg/dL 45 - 80 12/10 FLUIDS /2017 [facility] BODY RBC CSF 310 /mm3 0 - 03 12/10 FLUIDS [facility] BODY Supernat CSF Colorless Colorless 12/10 FLUIDS [facility] (12/10/17 6:46 PM) BODY Tube Num CSF 1 12/10 FLUIDS [facility] BODY WBC CSF 1 /mm3 0 - 53 12/10 FLUIDS [facility] BODY Color CSF Colorless Colorless 12/10 FLUIDS [facility] (12/10/17 6:46 PM) BODY Clarity CSF Clear Clear 12/10 FLUIDS [facility] (12/10/17 6:46 PM) FUNGAL - Crypto Ag Negative Negative 12/10 SEROLOGY CSF /2017 [facility] (12/10/17 6:46 PM) IMMUNOLOGY IgG Index 0.3 mg/dL 0.3 - 0.7 12/10 [facility] IMMUNOLOGY Alb CSF 11.4 mg/dL 14.0 - 12/10 (CPE) 25.0 [facility] IMMUNOLOGY Alb (CPE) 2000.0 3400.0 - 12/10 mg/dL 5000.0 [facility] IMMUNOLOGY IgG Lvl CSF 6.2 mg/dL 2.0 - 4.0 12/10 [facility] IMMUNOLOGY IgG (CPE) 3320 mg/dL 694 - 1618 12/10 [facility] IMMUNOLOGY PE Interp CSF 12/10 CSF protein [facility] electropho resis did not reveal evidence of an oligoclona l process in the [employer]. The CSF IgG index is within the reference range indicating that there is no elevation in intracereb ral IgG synthesis. There is also no evidence of increased permeabili ty of the blood brain barrier based on the CSF/serum albumin ratio.The electronic medical record has been reviewed for relevant history.I have personally reviewed the test results and concur with the resident's interpreta tion.CPT: [id number] IMMUNOLOGY Description The gel 12/10 CSF demonstrat [facility] es appropriat e resolution of the main protein bands. The gamma region shows continuous distributi on of proteins both in the CSF and in the serum. No oligoclona l bands are detected. IMMUNOLOGY VDRL Scr CSF Non Reactive Non 12/10 Reactive [facility] (12/10/17 6:46 PM) IMMUNOLOGY DC CSF 3 unit/L <=3 unit/L 12/10 [facility] MOLECULAR HSV 2 by PCR Not Performed Negative 12/10 DIAGNOSTIC /2018 [facility] (12/10/17 6:46 PM) MOLECULAR HSV 1 by PCR Not Performed Negative 12/10 DIAGNOSTIC [facility] (12/10/17 6:46 PM) MOLECULAR Source HSV CSF 1 12/10 Result DIAGNOSTIC Comment: CSF [facility] (12/10/17 6:46 PM) contains less than 5 WBC'S and has a normal Protein level. MOLECULAR VZV PCR Negative Negative 12/10 DIAGNOSTIC /2017 [facility] (12/10/17 6:46 PM) MOLECULAR Source VZV Cerebral 12/10 DIAGNOSTIC Spinal [facility] Fluid Gram Stain No Wbc'S 12/10 Report Or /2017 [facility] Organisms Seen Culture: CSF No Growth 12/10 w/Gram Stain [facility] ANEMIA Vitamin B12 675 pg/mL 254 - 1320 12/10 STUDY Lvl [facility] HEMATOLOGY Protein S 94 % 54 - 137 12/10 Func [facility] HEMATOLOGY Protein C 102 % 72 - 147 12/10 Func [facility] IMMUNOLOGY C4 22 mg/dL 16 - 47 12/10 Complement [facility] IMMUNOLOGY C3 133 mg/dL 88 - 201 12/10 Complement /2017 [facility] IMMUNOLOGY C-REACTIVE 112.0 mg/L <=2.9 mg/L 12/10 PROTEIN [facility] IMMUNOLOGY Treponemal Non Reactive Non 12/10 Ab Reactive [facility] *NA* (12/10/17 4:28 AM) IMMUNOLOGY Homocyst Tot 13.7 3.7 - 13.9 12/10 umol/L [facility] HEMATOLOGY AT III Func 89 % 77 - 140 12/10 [facility] HEMATOLOGY APC Resist 2.5 Ratio 2.2 - 3.5 12/10 Result Comment: The APCR result may be falsely increased (masking an abnormal, low APCR result) in patients on direct [facility] inhibitor (e.g., rivaroxaban, apixaban, edoxaban) or a direct thrombin inhibitor (e.g., dabigatran) anticoagulant therapy due to assay interference by these drugs. Performed At: [address] [id number] Tania Butler MD Ph:[phone] HEMATOLOGY F5 Leiden Negative 12/10 PCR /2017 [facility] (12/09/17 10:02 PM) HEMATOLOGY F5 Leiden FACTOR V 12/10 Intrp LEIDEN: [facility] NegativeIN TERPRETATI ON:Molecul ar analysis for the Factor V Leiden, [id number] mutation was negative.O ther causes of activated protein C resistance and hereditary forms of venousthro mbosis are not ruled out. Final diagnosis requires correlatio n withclinic al history and other pertinent laboratory findings.W here appropriat e, medical consultati on and/or genetic counseling should beoffered to inform and explain the risk implicatio ns and genetic implicatio nsof these test results. SAY LIMITATION S:The assay uses the Amminex d Obdulio Factor V Leiden IVD(Poymer ase chain reaction/F RET detection) kit, ReCellular Instrument and the Ideal Binary r 1.2 Instrument . A 222-bp fragment of Factor V gene (FV) containing the Factor V Leiden sequence is amplified in the assay. The assay is designed to detect the G 1691A mutation only. Other causes of activated protein C resistance and hereditary forms of venous thrombosis are not ruled out. However, melting curve analysis may implicate the presence of possible rare mutations at positions 1689, 1692 and 1696. (Further testing will be recommende d in the report). A minimum detection level is 202 copies of Factor V Leiden per reaction. The level of agreement between the Factor V Leiden Kit and sequence analysis was 99.4%. The test result must be interprete d along with the patient's clinical history and relevant laboratory data. This assay has been validated by [facility] . HEMATOLOGY Sed Rate >100 mm/hr 0 - 15 12/10 [facility] HEMATOLOGY F2 Mut FACTOR II 12/10 Interp PT: [facility] NegativeIN TERPRETATI ON:Molecul ar analysis for the Factor II (Prothromb in) [id number] mutation wasnegativ e. Other causes of elevated prothrombi n levels and hereditary formsof venous thrombosis are not ruled out. Final diagnosis requires correlatio nwith clinical history and other pertinent laboratory findings.W here appropriat e, medical consultati on and genetic counseling should beoffered to inform and explain the risk implicatio ns and genetic implicatio nsof these test results. SAY LIMITATION S:The assay uses the Selatra-cleare d Obdulio Factor II (Prothromb in) [id number] IVD(Polyme rase chain reaction/F RET detection) kit, Obdulio Flex PharmaA Sigma Force LC Instrument and the Fabler Comicse r 1.2 Instrument . A 165-bp fragment of Factor IIgene(FII ) containing the Factor II [id number] sequence is amplified in theassay. The assay is designed to detect the [id number] mutation only. Othercause s of elevated prothrombi n levels and hereditary forms of venousthro mbosis are not ruled out. However, the melting curve analysis mayimplica te the presence of a possible rare mutation at position 20501 (Furtherte sting will be recommende d in the report). A minimum detection level is 198copies of Factor II per reaction. The level of agreement between the FactorII(P rothrombin ) [id number] Kit and sequence analysis was 98.9%. The test resultmust be interprete d along with the patient's clinical history and revelant laboratory data. This assay has been validated by [facility] . HEMATOLOGY F2 Mutation Negative 12/10 [facility] (12/09/17 10:02 PM) HEMATOLOGY dRVV Ratio 1.10 <=1.20 12/10 [facility] HEMATOLOGY Hex Phos N Negative Negative 12/10 [facility] (12/09/17 10:02 PM) HEMATOLOGY Lup Interp Negative 12/10 for lupus /2017 [facility] anticoagul ant by DRVV screen and hexagonal phospholip idneutrali zation test. If there is a strong clinical suspicion of lupus anticoagul ant,additi onal testing, to include repeat studies at a clinically appropriat e interval and anticardio lipin antibody assays, is recommende d.Interpre tation performed at [facility]. IMMUNOLOGY GRETEL Interp Pattern 12/10 [facility] speckled IMMUNOLOGY GRETEL Titer 1:40 Negative 12/10 [facility] *ABN* (12/09/17 10:02 PM) IMMUNOLOGY SS-A (Ro) Ab null <=0.9 AI 12/10 [facility] IMMUNOLOGY SS-B (La) Ab null <=0.9 AI 12/10 [facility] IMMUNOLOGY Hgb A % 98.0 % 95.8 - 12/10 97.8 [facility] IMMUNOLOGY Hgb A2 % 2.0 % 2.2 - 3.2 12/10 [facility] IMMUNOLOGY Hgb F % 0.0 % 0.0 - 1.0 12/10 [facility] IMMUNOLOGY Hgb S % 0.0 % 0.0 - 0.0 12/10 [facility] IMMUNOLOGY Hgb C % 0.0 % 0.0 - 0.0 12/10 [facility] IMMUNOLOGY Hgb Interp No 12/10 abnormal [facility] hemoglobin s are detected; normal hemoglobin electropho resis pattern.Th is patient has microcytic hypochromi c anemia. Differenti al diagnosis includes iron deficiency , anemia of chronic disease and alpha thalassemi a trait.Iron studies are unavailabl e from the EMR. Please note, iron deficiency may falsely lower HbA2 levels, thus masking beta thalassemi a trait.I have personally reviewed the test results and concur with the resident's interpreta tion.CPT [id number] IMMUNOLOGY C-ANCA Negative Negative 12/10 [facility] (12/09/17 10:02 PM) IMMUNOLOGY P-ANCA Negative Negative 12/10 [facility] (12/09/17 10:02 PM) IMMUNOLOGY Cryoglob Negative Negative 12/10 [facility] (12/09/17 10:02 PM) IMMUNOLOGY HIV Ag/Ab Negative Negative 12/10 [facility] *NA* (12/09/17 10:02 PM) IMMUNOLOGY GRETEL Positive Negative 12/10 [facility] *ABN* (12/09/17 10:02 PM) IMMUNOLOGY Cardiolipin null <=19.9 APL 12/10 IgA [facility] IMMUNOLOGY Cardiolipin null <=19.9 MPL 12/10 IgM [facility] IMMUNOLOGY Cardiolipin null <=19.9 GPL 12/10 IgG [facility] Chest Chest 1view Clinical indication: Respiratory Distress 12/10 - 1view DX - [facility] Comparison: Chest 1 view 12/09/2017 Read by: Kat Valenzuela MD Dictated Date/time: 12/10/17 07:54 TECHNIQUE: AP chest Electronically Signed by: Kat Valenzuela MD 12/10/17 07:55 FINAL REPORT FINDINGS: Lines, tubes and hardware: Endotracheal tube, right IJ dialysis catheter, and enteric tube are not significantly changed. Lungs and pleura: The radiograph is rotated to the left. There is increased pulmonary venous congestion from the prior exam. Bilateral perihilar airspace opacities are present. A small left pleural effusion is suspected. No appreciable pneumothorax. Heart and mediastinum: The cardiomediastinal silhouette is enlarged, but stable. Bones: No acute bony abnormality is identified. IMPRESSION: Worsening changes of pulmonary venous congestion and bilateral perihilar airspace opacities, concerning for pulmonary edema. SL: [id number] CHEM PANEL Bili Direct 0.1 mg/dL 0.0 - 0.3 12/09 [facility] CHEM PANEL Bili 0.3 mg/dL 0.0 - 1.0 12/09 [facility] Chest Chest 1view Patient Name: BEKAH STEPHENS 12/09 - 1view DX DX - [facility] : 1990; Age: 27 years y/o Male MR: [id number] Read by: Abdoul Lofton MD Dictated Date/time: 12/09/17 07:38 Electronically Signed by: Abdoul Lofton MD 12/09/17 07:42 FINAL REPORT Study: Chest 1view DX 12/09/2017 3:00 AM CDT Ordering Physician: Carlos Nguyen DO Clinical Indication: - intubated; Comparison: 12/08/2017 chest radiograph The position of the right internal jugular dialysis catheter is probably stable taking into account the lordotic nature of the image. Stable positions of the endotracheal and nasogastric tubes. Stable left retrocardiac consolidation, enlarged cardiac silhouette, congestive changes in the lungs, and possible left pleural effusion. No large collections of pleural fluid on the right. SL: [id number] Neck wo Neck wo Study: Neck wo contrast MRA 12/08/2017 11:10 AM CDT 12/08 [facility] contrast contrast MRA - [facility] MRA Ordering Physician: Carlos Nguyen DO Read by: Cristina Heller MD Dictated Date/time: 12/08/17 15:41 Clinical Indication: stoke evaluation. Electronically Signed by: Cristina Heller MD 12/08/17 15:46 FINAL REPORT Comparison: None Technique: Time of flight MR angiographic images and 3-D maximum intensity projection reformats of the extracranial cerebral circulation are obtained on a 1.5 Itzel magnet. FINDINGS: Image quality is degraded due to motion. The visualized portion of the aortic arch is normal in appearance. Great vessel origins are widely patent. Bilateral common carotid arteries are widely patent. The carotid bulbs and proximal cervical internal carotid arteries are unremarkable, without significant stenosis by NASCET criteria. Bilateral external carotid arteries are patent. Bilateral vertebral arteries are widely patent without stenosis. The visualized intracranial segments of the vertebral arteries are widely patent. The source images show no evidence of carotid or vertebral artery dissection. Any reported ICA stenoses directly reference the distal internal carotid diameter as the denominator for stenosis measurement. (NASCET criteria) IMPRESSION: Normal MRA of the neck. No significant carotid arterial stenosis by NASCET criteria. No significant vertebral artery stenosis. SL: [id number] Brain wo Brain wo Study: Brain wo contrast MRI 12/08/2017 11:10 AM CDT [facility] contrast contrast /2017 [facility] Ordering Physician: Carlos Nguyen DO Read by: Cristina Heller MD Dictated Date/time: 12/08/17 15:42 Clinical Indication: Stroke evaluation. Known heart failure. Electronically Signed by: Cristina Heller MD 12/08/17 16 :35 FINAL REPORT Comparison: None TECHNIQUE: Multiplanar, multiecho magnetic resonance imaging of the brain is performed without contrast on a 1.5 Itzel magnet. There are multiple foci of restricted diffusion and early subacute ischemia within the basal ganglia, corpus callosum and periventricular white matter bilaterally. Callosal lesions involving the genu, b sophia and splenium. Basal ganglia lesions are present primarily in the globus pallidus; there may be small areas of restricted diffusion within the genu of the internal capsules bilaterally. Small, scatte red areas of restricted diffusion are present in the periventricular white matter bilaterally. The appearance suggests embolic disease. Please correlate clinically. No cortical based infarct is identified. No mass lesion or extra-axial fluid collection is seen. There are no subacute or chronic blood products. Ventricles, sulci and basal cisterns are within normal limits for age. Normal flow voids are present in the arterial vessels at the skull base. Flow voids in the dural venous sinuses are normal. The pituitary, internal auditory canals and visualized cranial nerves at the skull base are unremarkable. There are several retention cysts in the inferior maxillary antra, with overall mild right and minimal left maxillary sinus opacification. Mild circumferential mucosal thickening is present in the right sphenoid sinus. There is minimal opacification of right ethmoid air cells. Mastoid air cells are clear. Orbital structures are grossly unremarkable. IMPRESSION: There are multiple patchy areas of T2/FLAIR hyperintensity with restricted diffusion and early subacute ischemia located in the basal ganglia, periventricular white matter and corpus callosum bilaterall y. The appearance could reflect embolic disease. Please correlate clinically. SL: [id number] Brain wo Brain wo Study: Brain wo contrast MRA 12/08/2017 11:10 AM CDT contrast contrast MRA [facility] MRA Ordering Physician: Carlos Nguyen DO Read by: Cristina Heller MD Dictated Date/time: 12/08/17 15:41 Clinical Indication: stoke evaluation. Known heart failure. Electronically Signed by: Cristina Heller MD 12/08/17 15 :57 FINAL REPORT Comparison: None Technique: 3-D [id number] MR angiographic images and maximum intensity projection reformats of the [place] are obtained on a 1.5 Itzel magnet. FINDINGS: Distal cervical, petrous, cavernous and supraclinoid segments of the internal carotid arteries are unremarkable. Proximal ophthalmic arteries are visualized, but assessment is limited. Slight irregulari ty and narrowing of bilateral M3 branches is suspected. Anterior and middle cerebral artery branches bilaterally are otherwise unremarkable. Anterior and bilateral posterior communicating arteries are patent. The distal vertebral arteries are codominant. Distal vertebral, basilar and bilateral posterior cerebral and superior cerebellar arteries are unremarkable. Patent bilateral anterior inferior cerebellar artery branches are seen. There is no evidence for AVM, aneurysm, moderate to high-grade stenosis or occlusion. IMPRESSION: Slight irregularity and narrowing of M3 branches is suspected bilaterally. No moderate or high-grade stenoses are seen. The examination is otherwise unremarkable. SL: [id number] HEMATOLOGY Target Cell Moderate None Seen 12/08 [facility] *ABN* (12/08/17 4:39 AM) HEMATOLOGY Basophils # 0.1 K/CMM 0.0 - 0.2 12/08 [facility] HEMATOLOGY Plt Morph Normal 12/08 [facility] (12/08/17 4:39 AM) Chest Chest 1view Patient Name: BEKAH STEPHENS 12/08 1view DX DX [facility] : 1990; Age: 27 years y/o Male MR: [id number] Read by: Mark Anthony Solomon MD Dictated Date/time: 12/08/17 06:46 Electronically Signed by: Mark Anthony Solomon MD 12/08/17 06:48 FINAL REPORT * CHEST, portable, 1 view HISTORY: Respiratory distress, intubated. Studies from yesterday, 12/06/2017, and chest computed tomography scan from 12/06/2017 were reviewed. TECHNIQUE: A portable frontal radiograph of the chest was obtained. IMPRESSION: 1. The endotracheal tube is in good position with its tip 6.9 cm above the teena. 2. No significant change in appearance of the chest from yesterday. There is persistent opacity in the left lower lobe consistent with pneumonia. There are no definite pleural effusions. 3. The right lung is clear. 4. Moderate cardiomegaly. There is mild residual pulmonary vascular congestion. 5. Right IJ PermCath terminates in the mid superior vena cava. 6. The nasogastric tube extends into the stomach. SL: [id number] URINE AND UA Color Rita 12/07 STOOL [facility] URINE AND UA Glucose 50 mg/dL 12/07 STOOL [facility] URINE AND UA null 0.1 - 1.0 12/07 STOOL Urobilinogen [facility] URINE AND UA Bacteria Few /HPF None Seen 12/07 STOOL /HPF /2017 [facility] URINE AND UA WBC 13 /HPF 0 - 5 12/07 STOOL [facility] URINE AND UA Sq Epi Occasional Few /LPF 12/07 STOOL /LPF [facility] URINE AND UA Amorph Occasional None Seen 12/07 STOOL Yvonne /HPF /HPF /2017 [facility] URINE AND UA Mucus Few /LPF None Seen 12/07 STOOL /LPF [facility] URINE AND UA Blood Negative Negative 12/07 STOOL [facility] (12/07/17 5:02 PM) URINE AND UA Bili Negative Negative 12/07 STOOL [facility] *NA* (12/07/17 5:02 PM) URINE AND UA RBC 5 /HPF 0 - 2 12/07 STOOL [facility] URINE AND UA Protein 100 mg/dL Negative 12/07 STOOL mg/dL [facility] URINE AND UA pH 5.0 5.0 - 8.0 12/07 [facility] URINE AND UA Spec Grav 1.023 <=1.030 12/07 STOOL [facility] URINE AND UA Leuk Est Trace Negative 12/07 [facility] *ABN* (12/07/17 5:02 PM) URINE AND UA Nitrite Negative Negative 12/07 [facility] (12/07/17 5:02 PM) URINE AND UA Ketones Negative Negative 12/07 STOOL mg/dL mg/dL [facility] URINE AND UA Turbidity Marked Clear 12/07 [facility] *ABN* (12/07/17 5:02 PM) URINE CHEM U Sodium 22 meq/L 12/07 [facility] URINE CHEM U Osmolality 316 300 - 800 12/07 mOsm/kg [facility] Culture: <10,000 12/07 Urine CFU/mL /2017 [facility] Yeast Chest Chest 1view Clinical Indication: - tachypnea; 12/07 - 1view DX DX [facility] Comparison: 12/07/2017 Read by: Paty Anderson MD Dictated Date/time: 12/07/17 17:55 Electronically Signed by: Paty Anderson MD 12/07/17 17:57 FINAL REPORT Technique: X-ray chest frontal projection FINDINGS: A right dialysis catheter is noted with its tip in the superior vena cava. The endotracheal tube is above the teena. A feeding tube is visualized. Mild bilateral pulmonary congestion is noted. There is no consolidation, pleural effusion or pneumothorax. There is cardiomegaly. The mediastinum and lexy are unremarkable. The visualized bones and soft tissues are within normal limits. IMPRESSION: Mild pulmonary congestion. Cardiomegaly. SL: [id number] Chest Chest 1view Patient Name: BEKAH STEPHENS 12/07 1view DX DX [facility] : 1990; Age: 27 years y/o Male MR: [id number] Read by: Mark Anthony Solomon MD Dictated Date/time: 12/07/17 07:12 Electronically Signed by: Mark Anthony Solomon MD 12/07/17 07:14 FINAL REPORT * CHEST, portable, 1 view HISTORY: Respiratory distress, intubated. COMPARISON: Yesterday. A chest computed tomography scan from yesterday was also. TECHNIQUE: A portable frontal radiograph of the chest was obtained. IMPRESSION: 1. The endotracheal tube is in good position with its tip 6 cm above the teena. 2. Improvement in the appearance the chest with decreased diffuse hazy opacities consistent with improving pulmonary edema. There is also been improvement in the right perihilar and lower lobe atelectasis and/or infiltrate. 3. Residual left lower lobe infiltrate. 4. Moderate cardiomegaly. There is mild residual pulmonary vascular congestion. 5. Right IJ PermCath terminates in the mid superior vena cava. 6. The nasogastric tube extends into the stomach. SL: [id number] IMMUNOLOGY Hep C Ab Negative 12/06 [facility] *NA* (12/06/17 4:25 PM) IMMUNOLOGY Hep Bs Ag Negative Negative 12/06 [facility] *NA* (12/06/17 4:25 PM) CARDIAC Troponin-I 0.07 ng/mL 0.00 - 12/06 ENZYMES 0.40 [facility] CHEM PANEL Lactic Acid 1.1 mMol/L 0.5 - 2.2 12/06 Lvl /2017 [facility] Gram Stain Less Than 25 Squamous Epithelial Cells/Lpf 12/06 Report /2017 [facility] Many Leukocytes/Lpf Few Gram Negative Rods Few Gram Positive Cocci . Good Quality Specimen Culture: Normal 12/06 Respiratory Respirator /2017 [facility] w/Gram Stain y [place] Isolated Chest Chest Clinical Indication: - hypoxemic resp failure; 12/06 - Pulmonary Pulmonary /2017 - [facility] Embolism Embolism CTA Comparison: None CTA Read by: Joel Enriquez MD Dictated Date/time: 12/06/17 15:57 TECHNIQUE: Sequential trans-axial images were obtained thru the chest and upper abdomen after administration of iodinated contrast. CTA protocol was performed with 3-D postprocessing reconstruction MIPs and volume rendering. Electronically Signed by: Joel Enriquez MD 16:00 FINAL REPORT Coronal and sagittal reconstructions were obtained. 100 cc of nonionic contrast material was used for the exam. Dose: TAJ=898 mGy-cm FINDINGS: LUNG PARENCHYMA AND PLEURA: There are no lung nodules. There is no significant interstitial lung disease. Left upper and lower lobe infiltrates are identified. Small right lower lobe infiltrate is also identified. Is no evidence of any effusion. There is no pneumothorax. AIRWAY: The central airway illustrates an endotracheal tube.. . MEDIASTINUM: No significant mediastinal lymphadenopathy. HEART: There is no evidence of RV strain. The cardiac chambers are otherwise unremarkable. There is moderate pericardial effusion. VASCULAR STRUCTURES: There are no segmental pulmonary emboli noted. The main, right and left pulmonary arteries are normal. The great vessels are unremarkable. The thoracic aorta is is free of aneurys m or dissection.. The superior vena cava is unremarkable. OSSEOUS STRUCTURES: There are no definite significant osseous abnormalities seen. VISUALIZED UPPER ABDOMEN: The visualized upper abdomen is within normal limits. There is an enteric tube identified with the tip terminating in the stomach. There is fluid visualized within the subcutaneous tissue. IMPRESSION: 1. No evidence of pulmonary emboli. 2. Bilateral lower lobe infiltrates are identified with the left being greater than the right. There is also left upper lobe infiltrate. 3. Moderate pericardial effusion. 4. Anasarca. SL: [id number] Chest Chest 1view Clinical Indication:27 years Male with - intubated 1view DX DX /2017 [facility] Comparison: Chest x-ray same date at 04 34 Read by: Tim Patton MD Dictated Date/time: 12/06/17 09:37 FINDINGS: Electronically Signed by: Tim Patton MD 12/06/17 09:39 FINAL REPORT Lines: Tip of endotracheal tube is 4.6 cm above the teena. Right IJ tunneled dialysis catheter tip at the low SVC The single frontal chest radiograph shows normal lung volumes. Hazy opacities in the lung bases and perihilar regions Probable left pleural effusion. No pneumothorax. Cardiac silhouette is enlarged, stable. Pulmonary vasculature is enlarged. The trachea is midline. There are no acute osseous abnormalities noted. IMPRESSION: 1. Placement of endotracheal tube in appropriate position. 2. Increased opacities in lung bases may be due to atelectasis or aspiration/pneumonia. 3. Enlarged cardiac silhouette with central venous congestion, and probable small left pleural effusion. HEMATOLOGY Anisocyte 1+ None Seen 12/06 [facility] *ABN* (12/06/17 4:08 AM) HEMATOLOGY Basophils # 0.1 K/CMM 0.0 - 0.2 12/06 [facility] CARDIAC Troponin-I 0.06 ng/mL 0.00 - 12/06 ENZYMES 0.40 [facility] CHEM PANEL Bili Direct null 0.0 - 0.3 12/06 [facility] CHEM PANEL Bili Unable to 0.0 - 1.0 12/06 Indirect Calculate [facility] LIPIDS VLDL 23 12/06 [facility] LIPIDS Chol 99 mg/dL <=199 12/06 mg/dL [facility] LIPIDS HDL 24 mg/dL >=61 mg/dL 12/06 [facility] LIPIDS LDL 52 mg/dL <=99 mg/dL 12/06 (Calculated) [facility] LIPIDS Trig 115 mg/dL <=149 12/06 mg/dL [facility] LIPIDS CHD Risk 4.12 4.00 - 12/06 7. [facility] SPECIAL Hgb A1C 7.8 % <=5.6 % 12/06 CHEMISTRY [facility] Chest Chest 1view Clinical Indication: History distress. Known heart failure. 12/06 - 1view DX DX - [facility] Comparison: None Read by: eDnnis Gates MD Dictated Date/time: 12/06/17 05:49 FINDINGS: Electronically Signed by: Dennis Gates MD 12/06/17 05:50 FINAL REPORT The frontal chest radiograph shows normal lung volumes. Pulmonary vascular congestion is noted. There is no evidence of pneumothorax. Blunting of left costophrenic angle is noted which may be due to small effusion or atelectasis. The cardiac silhouette is markedly enlarged. There is a right internal jugular vein dialysis catheter with the catheter tips at the superior cavoatrial junction. There are no clinically significant osseous abnormalities noted. IMPRESSION: Pulmonary vascular congestion. Markedly enlarged cardiac silhouette. SL: [email or web address] Vital Signs Vital Sign Value Date Comments Source Systolic (mm Hg) 137 12/20/2017 [facility] Diastolic (mm Hg) 89 12/20/2017 [facility] Respitory Rate 12 12/20/2017 [facility] Height 193.04 cm 12/20/2017 [facility] Systolic (mm Hg) 133 12/19/2017 [facility] Diastolic (mm Hg) 83 12/19/2017 [facility] Respitory Rate 18 12/19/2017 [facility] Systolic (mm Hg) 118 12/19/2017 [facility] Diastolic (mm Hg) 67 12/19/2017 [facility] Respitory Rate 16 12/19/2017 [facility] Height 193.04 cm 12/19/2017 [facility] Height 193.04 cm 12/19/2017 [facility] Heart Rate 97 12/18/2017 [facility] Temperature Oral (F) 99.4 F 12/17/2017 [facility] Temperature Oral (F) 100.8 F 12/15/2017 [facility] Heart Rate 95 12/15/2017 [facility] Heart Rate 91 12/13/2017 [facility] Weight 155.8 12/12/2017 [facility] BMI Calculated 42.94 12/07/2017 [facility] Weight 160 12/07/2017 [facility] Weight 160 12/06/2017 [facility] BMI Calculated 42.94 12/06/2017 [facility] BMI Calculated 42.94 12/06/2017 [facility] Encounters Location Location Encounter Encounter Reason Attending ADM DC Status Source Details Type Number For Provider Date Date Visit [facility] Inpatient [id number] Courtney 12/06 12/20 Crispin Phillip /2017 [facility] Procedures Procedure Code Date Perfomer Comments Source Spinal puncture, 65823 12/11/2017 [facility] lumbar, diagnostic Intubation, 46929 12/06/2017 [facility] endotracheal, emergency procedure
--- OUTSIDE RECORDS SUMMARY | 2018-07-13 20:53 | XMS REPORT | Summary of Care ---
:1990 Author Organization [facility] Address [address] [place] [id number] Encounter HQ Abdi(FIN) [id number] Date(s): 12/06/17 - 12/19/[address] [address]- Encounter Diagnosis Illness, unspecified (Final) - Illness, unspecified (Final) - Cerebral infarction, unspecified (Final) - 12/23/17 Hypertensive heart and chronic kidney disease with heart failure and with stage 5 chronic kidney disease, or end stage renal disease (Final) - Anoxic brain damage, not elsewhere classified (Final) - Acute kidney failure, unspecified (Final) - Type 2 diabetes mellitus with diabetic chronic kidney disease (Final) - Morbid (severe) obesity due to excess calories (Final) - Acute posthemorrhagic anemia (Final) - Acute on chronic systolic (congestive) heart failure (Final) - Acute respiratory failure with hypoxia (Final) - End stage renal disease (Final) - Hypo-osmolality and hyponatremia (Final) - Pericardial effusion (noninflammatory) (Final) - Body mass index (BMI) 40.0-44.9, adult (Final) - Hemiplegia, unspecified affecting left nondominant side (Final) - 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 (Final) - Anemia in chronic kidney disease (Final) - NIHSS score 27 (Final) - Hypertensive urgency (Final) - Hyperlipidemia, unspecified (Final) - Lymphedema, not elsewhere classified (Final) - Obstructive sleep apnea (adult) (pediatric) (Final) - Physical restraint status (Final) - Discharge Disposition: Scheduler Care Attending Physician: Reno Aranda MD Admitting Physician: Reno Aranda MD Referring Physician: Courtney Phillip MD Vital Signs Most recent to oldest 1 2 3 [Reference Range]: Height 193.04 cm 193.04 cm 193.04 cm (12/19/17 7:07 PM) (12/19/17 3:09 PM) (12/19/17 11:16 AM) Current Weight 162.6 kg 164.8 kg (12/06/17 7:48 PM) (12/06/17 4:30 PM) Temperature Oral [96.4-99.1 99.4 DegF 100.8 DegF DegF] *HI* *HI* (12/17/17 5:18 PM) (12/15/17 6:00 AM) Blood Pressure [90-140/60-90 137/89 mmHg 133/83 mmHg 118/67 mmHg mmHg] (12/19/17 8:00 PM) (12/19/17 6:00 PM) (12/19/17 5:00 PM) Respiratory Rate [14-20 12 BRMIN 18 BRMIN 16 BRMIN BRMIN] *LOW* (12/19/17 6:00 PM) (12/19/17 5:00 PM) (12/19/17 8:00 PM) Peripheral Pulse Rate [60-100 97 bpm 95 bpm 91 bpm bpm] (12/18/17 12:01 PM) (12/14/17 7:10 PM) (12/13/17 10:20 AM) Weight 155.8 kg 160 kg 160 kg (12/12/17 9:55 AM) (12/06/17 9:03 PM) (12/06/17 5:05 AM) Body Mass Index 42.94 m2 42.94 m2 42.94 m2 (12/06/17 9:03 PM) (12/06/17 5:04 AM) (12/06/17 3:42 AM) Problem List Condition Effective Dates Status Health Status Informant Anemia of chronic disease(Confirmed) Active Diastolic CHF(Confirmed) Active ESRD needing dialysis(Confirmed) Active Hyperlipidemia(Confirmed) Active Hypertension(Confirmed) Active Left hemiplegia(Confirmed) Active Diabetes mellitus, type II(Confirmed) Active Allergies, Adverse Reactions, Alerts Substance Reaction Severity Status NKDA Active Medications acetaminophen 650 mg, 2 tab, Route: PO, Drug form: TAB, Q4H, kg, PRN Pain 1-3/Temp > 100.4 F, Start date: 12/06/17 3:39:00 CDT, Duration: 30 day, Stop date: 01/05/18 3:38: 00 CDT Notes: Do not exceed 4 gm/day. (Same as: Tylenol) Start Date: 12/06/17 Stop Date: 12/19/17 Status: Discontinuedaspirin 325 mg, 1 tab, Route: NG, Drug form: TAB, Daily, Dosing Weight 160, kg, Priority : NOW, Start date: 12/06/17 20:16:00 CDT, Duration: 30 day, Stop date: 01/05/18 9:00:00 CDT Notes: Take with food. Start Date: 12/06/17 Stop Date: 12/19/17 Status: Discontinuedaspirin 325 mg tablet 325 mg=1 tab, PO, Daily, # 90 tab, 0 Refill(s) Start Date: 12/06/17 Status: Orderedatorvastatin 80 mg, 2 tab, Route: PO, Drug form: TAB, Bedtime, kg, Start date: 12/06/17 21:00 :00 CDT, Duration: 30 day, Stop date: 01/04/18 21:00:00 CDT Notes: (Same as: Lipitor) Start Date: 12/06/17 Stop Date: 12/19/17 Status: Discontinuedatorvastatin 40 mg oral tablet 80 mg=2 tab, PO, Bedtime, 0 Refill(s) Start Date: 12/19/17 Status: OrderedBenadryl 25 mg, 0.5 mL, Route: IVP, Drug form: INJ, Q4H, Dosing Weight 155.8, kg, PRN Allergic reaction, Start date: 12/19/17 12:05:00 CDT, Duration: 2 day, Stop date : 12/21/17 12:04:00 CDT Notes: (Same as: Benadryl) Start Date: 12/19/17 Stop Date: 12/19/17 Status: DiscontinuedBenadryl 25 mg, 10 mL, Route: PO, Drug form: LIQ, Q4H, Dosing Weight 155.8, kg, PRN Allergic reaction, Start date: 12/19/17 11:42:00 CDT, Duration: 30 day, Stop date: 01/18/18 11:41:00 CDT Notes: (Same as: Benadryl) Start Date: 12/19/17 Stop Date: 12/19/17 Status: DiscontinuedBenadryl 25 mg, 0.5 mL, Route: IV, Drug form: INJ, Q6H, Dosing Weight 155.8, kg, Start date: 12/18/17 18:00:00 CDT, Duration: 2 doses or times, Stop date: 12/19/17 0: 00:00 CDT Notes: (Same as: Benadryl) Start Date: 12/18/17 Stop Date: 12/19/17 Status: CompletedBeneprotein 7 gm pkt 2 pkt, Route: T FEED, Drug Form: PWDR, Dosing Weight 160, kg, TID, Start date: 12/09/17 13:00:00 CDT, Duration: 30 day, Stop date: 01/08/18 9:00:00 CDT Notes: (Same as: Beneprotein) Start Date: 12/09/17 Stop Date: 12/17/17 Status: DiscontinuedBeneprotein 7 gm pkt 1 pkt, Route: T FEED, Drug Form: PWDR, Dosing Weight 155.8, kg, TID, Start date : 12/17/17 13:00:00 CDT, Duration: 30 day, Stop date: 01/16/18 9:00:00 CDT Notes: (Same as: Beneprotein) Start Date: 12/17/17 Stop Date: 12/19/17 Status: DiscontinuedBeneprotein 7 gm pkt 2 pkt, Route: T FEED, Drug Form: PWDR, Dosing Weight 160, kg, TID, Start date: 12/06/17 17:00:00 CDT, Duration: 30 day, Stop date: 01/05/18 13:00:00 CDT Notes: (Same as: [place]) Start Date: 12/06/17 Stop Date: 12/09/17 Status: Discontinuedbisacodyl 10 mg, 1 supp, Route: SC, Drug form: SUPP, Daily, kg, PRN Constipation, Start date: 12/06/17 3:39:00CDT, Duration: 30 day, Stop date: 01/05/18 3:38:00 CDT Notes: (Same As: Dulcolax, Bisco-Lax) Start Date: 12/06/17 Stop Date: 12/19/17 Status: Discontinuedchlorhexidine topical 0.12% liquid 15 mL, Route: Swab Mouth, PRN, Drug form: LIQ, PRN Other -See Comment, Start date: 12/06/17 9:58:00 CDT, Duration: 30 day, Stop date: 01/05/18 9:57:00 CDT Notes: (Same As: Peridex) Start Date: 12/06/17 Stop Date: 12/19/17 Status: Discontinuedchlorhexidine topical 0.12% liquid 15 mL, Route: Swab Mouth, Q4H, Drug form: LIQ, Start date: 12/06/17 12:00:00 CDT , Duration: 30 day, Stop date: 01/05/18 8:00:00 CDT Notes: (Same As: Peridex) Start Date: 12/06/17 Stop Date: 12/19/17 Status: Discontinuedchlorhexidine topical 0.12% liquid 0.018 gm=15 mL, Swab Mouth, Q4H, 0 Refill(s) Start Date: 12/19/17 Status: OrderedcloNIDine 0.1 mg oral tablet 0.1 mg, 1 tab, Route: NG, Drug form: TAB, Q8H, Dosing Weight 160, kg, Start date : 12/06/17 16:00:00 CDT, Duration: 30 day, Stop date: 01/05/18 8:00:00 CDT Notes: (Same As: Catapres) Start Date: 12/06/17 Stop Date: 12/11/17 Status: DiscontinuedcloNIDine 0.2 mg oral tablet 0.2 mg, 1 tab, Route: PEG, Drug form: TAB, Q8H, Dosing Weight 155.8, kg, Start date: 12/16/17 16:00:00 CDT, Duration: 30 day, Stop date: 01/15/18 8:00:00 CDT Notes: (Same As: Catapres) Start Date: 12/16/17 Stop Date: 12/19/17 Status: DiscontinuedcloNIDine 0.2 mg oral tablet 0.2 mg=1 tab, PO, TID, # 60 tab, 0 Refill(s) Start Date: 12/06/17 Status: OrderedcloNIDine 0.3 mg oral tablet 0.3 mg, 1 tab, Route: NG, Drug form: TAB, Q8H, Dosing Weight 160, kg, Start date : 12/11/17 16:00:00 CDT, Duration: 30 day, Stop date: 01/10/18 8:00:00 CDT Notes: (Same As: Catapres) Start Date: 12/11/17 Stop Date: 12/16/17 Status: Discontinueddesmopressin + Sodium Chloride 0.9% IV 50 mL 45 microgram, 11.25 mL, Route: IVPB, Drug form: INJ, ONCE, Dosing Weight 155.8, kg, Priority: NOW, Start date: 12/17/17 14:31:00 CDT, Stop date: 12/17/17 14:31: 00 CDT Notes: (Same As: DDAVP) MEDICATION WASTE Product Size: 4 microgram Product Wasted: ___ microgram Start Date: 12/17/17 Stop Date: 12/17/17 Status: CompletedDextrose 50% Syringe 25 gm, 50 mL, Route: IVP, Drug Form: INJ, Dosing Weight 160, kg, PRN, PRN Blood Glucose Results, Start date: 12/06/17 3:56:00 CDT, Duration: 30 day, Stop date: 01/05/18 3:55:00 CDT Start Date: 12/06/17 Stop Date: 12/13/17 Status: DiscontinuedDextrose 50% Syringe 12.5 gm, 25 mL, Route: IVP, Drug Form: INJ, Dosing Weight 160, kg, PRN, PRN Blood Glucose Results, Start date: 12/06/17 3:56:00 CDT, Duration: 30 day, Stop date: 01/05/18 3:55:00 CDT Start Date: 12/06/17 Stop Date: 12/13/17 Status: DiscontinuedDextrose 50% Syringe 12.5 gm, 25 mL, Route: IVP, Drug Form: INJ, Dosing Weight 155.8, kg, PRN, PRN Blood Glucose Results,Start date: 12/13/17 8:33:00 CDT, Stop date: 01/12/18 8:32 :00 CDT Start Date: 12/13/17 Stop Date: 12/19/17 Status: DiscontinuedDextrose 50% Syringe 25 gm, 50 mL, Route: IVP, Drug Form: INJ, Dosing Weight 155.8, kg, PRN, PRN Blood Glucose Results, Start date: 12/13/17 8:33:00 CDT, Duration: 30 day, Stop date: 01/12/18 8:32:00 CDT Start Date: 12/13/17 Stop Date: 12/19/17 Status: DiscontinueddiphenhydrAMINE 12.5 mg/5 mL oral liquid 25 mg=10 mL, PO, Q4H, PRN Allergic reaction, 0 Refill(s) Start Date: 12/19/17 Status: Ordereddocusate 100 mg, 10 mL, Route: NG, Drug form: LIQ, Q12H, kg, Start date: 12/11/17 21:00: 00 CDT, Duration: 30 day, Stop date: 01/10/18 9:00:00 CDT Notes: (Same as: Colace) Start Date: 12/11/17 Stop Date: 12/19/17 Status: Discontinueddocusate 100 mg, 1 cap, Route: PO, Drug form: CAP, Q12H, kg, Start date: 12/06/17 9:00: 00 CDT, Duration: 30 day, Stop date: 01/04/18 21:00:00 CDT Notes: (Same as: Colace) (Do Not Crush) Start Date: 12/06/17 Stop Date: 12/11/17 Status: DiscontinuedDuoNeb inhalation solution 3 ml, Route: NEB, Drug Form: SOLN, Dosing Weight 160, kg, RQ4H, PRN Respiratory Protocol, Start date: 12/07/17 16:58:00 CDT, Duration: 30 day, Stop date: 16:57:00 CDT Notes: (Same as: Duoneb) Start Date: 12/07/17 Stop Date: 12/12/17 Status: DiscontinuedDuoNeb inhalation solution 3 ml, Route: NEB, Drug Form: SOLN, Dosing Weight 160, kg, RQ4H, Start date: 19:00:00 CDT, Duration: 30 day, Stop date: 01/11/18 15:00:00 CDT Notes: (Same as: Duoneb) Start Date: 12/12/17 Stop Date: 12/19/17 Status: DiscontinuedDuoNeb inhalation solution 3 mL, NEB, RQ4H, 0 Refill(s) Start Date: 12/19/17 Status: Orderedepoetin ephraim 10,000 units/mL preservative-free injectable solution 10,000 unit=1 mL, SUB-Q, Q-M-W-F, 0 Refill(s) Start Date: 12/19/17 Status: OrderedEpogen (ESRD) 10,000 unit, 1 mL, Route: SUB-Q, Drug form: INJ, Q-M-W-F, Dosing Weight 160, kg , Start date: 12/06/17 18:00:00 CDT, Duration: 30 day, Stop date: 01/03/18 17:00 :00 CDT Notes: (Same as: Procrit) epoetin ephraim 44927 unit/1 ml VL.For dialysis use only. (Procrit)WASTE: F/P- Red; E -Red MEDICATION WASTE Product Size: [id number] unitProduct Wasted: ___ unit Start Date: 12/06/17 Stop Date: 12/19/17 Status: Discontinuedfamotidine 20 mg, 2 mL, Route: IVP, Drug form: INJ, Q24H, Dosing Weight 160, kg, (For Creatinine Clearance <50 ml/min), Start date: 12/06/17 10:00:00 CDT, Stop date: 01/04/18 10:00:00 CDT Notes: (Same as: Pepcid)Can be dilute in 5-10cc NS IVP: Slow IV push over at least 2 minutes. Start Date: 12/06/17 Stop Date: 12/19/17 Status: Discontinuedfamotidine 20 mg oral tablet 20 mg, 1 tab, Route: PEG, Drug form: TAB, Q24H, Dosing Weight 155.8, kg, Start date: 12/19/17 8:00:00 CDT, Duration: 30 day, Stop date: 01/17/18 8:00:00 CDT Notes: (Same as: Pepcid) Start Date: 12/19/17 Stop Date: 12/19/17 Status: Discontinuedfamotidine 20 mg oral tablet 20 mg=1 tab, PEG, Q24H, 0 Refill(s) Start Date: 12/19/17 Status: OrderedfentaNYL 100 microgram, Route: IVP, ONCE, Dosing Weight 160, kg, Start date: 12/11/17 11: 58:00 CDT, Stop date: 12/11/17 11:58:00 CDT Start Date: 12/11/17 Stop Date: 12/11/17 Status: CompletedfentaNYL 50 microgram, 1 mL, Route: IVP, Drug form: INJ, Q2H, Dosing Weight 160, kg, PRN Pain Score 7-10, Start date: 12/06/17 8:38:00 CDT, Duration: 30 day, Stop date: 01/05/18 8:37:00 CDT Notes: (Same as: Sublimaze) Preservative free. Start Date: 12/06/17 Stop Date: 12/19/17 Status: DiscontinuedfentaNYL 25 microgram, 0.5 mL, Route: IVP, Drug form: INJ, Q2H, Dosing Weight 160, kg, PRN Pain Score 4-6, Start date: 12/06/17 8:38:00 CDT, Duration: 30 day, Stop date: 01/05/18 8:37:00 CDT Notes: (Same as: Sublimaze) Preservative free. Start Date: 12/06/17 Stop Date: 12/19/17 Status: DiscontinuedfentaNYL (ANES) Route: IV, Drug form: INJ, ONCE, Stop date: 12/09/17 17:36:00 CDT Start Date: 12/09/17 Stop Date: 12/09/17 Status: CompletedfentaNYL - one time ICU bolus dose 50 microgram, 1 mL, Route: IVP, Drug form: INJ, ONCE, Dosing Weight 160, kg, Start date: 12/10/17 17:09:00 CDT, Stop date: 12/10/17 17:09:00 CDT Notes: (Same as: Sublimaze) Preservative free. Start Date: 12/10/17 Stop Date: 12/10/17 Status: CompletedfentaNYL - one time ICU bolus dose 50 microgram, 1 mL, Route: IVP, Drug form: INJ, ONCE, Dosing Weight 160, kg, Start date: 12/10/17 13:34:00 CDT, Stop date: 12/10/17 13:34:00 CDT Notes: (Same as: Sublimaze) Preservative free. Start Date: 12/10/17 Stop Date: 12/10/17 Status: CompletedfentaNYL - one time ICU bolus dose 50 microgram, 1 mL, Route: IVP, Drug form: INJ, ONCE, Dosing Weight 155.8, kg, Priority: NOW, Start date: 12/12/17 17:35:00 CDT, Stop date: 12/12/17 17:35:00 CDT Notes: (Same as: Sublimaze) Preservative free. Start Date: 12/12/17 Stop Date: 12/12/17 Status: Completedfurosemide 40 mg oral tablet 40 mg=1 tab, PO, BID, # 30 tab, 0 Refill(s) Start Date: 12/06/17 Stop Date: 12/19/17 Status: Discontinuedglucagon 1 mg, Route: IM, Drug form: PDR/INJ, PRN, Dosing Weight 160, kg, PRN Blood Glucose Results, Start date: 12/06/17 3:56:00 CDT, Duration: 30 day, Stop date: 01/05/18 3:55:00 CDT Start Date: 12/06/17 Stop Date: 12/19/17 Status: Discontinuedglucagon 1 mg, Route: IM, Drug form: PDR/INJ, PRN, Dosing Weight 155.8, kg, PRN Blood Glucose Results, Start date: 12/13/17 8:33:00 CDT, Duration: 30 day, Stop date: 01/12/18 8:32:00 CDT Start Date: 12/13/17 Stop Date: 12/19/17 Status: Discontinuedheparin 7,500 unit, 1.5 mL, Route: SUB-Q, Drug form: INJ, Q8H, Dosing Weight 160, kg, Start date: 12/11/17 16:00:00 CDT, Stop date: 01/10/18 8:00:00 CDT Notes: porcine heparin Start Date: 12/11/17 Stop Date: 12/14/17 Status: Discontinuedheparin 7,500 unit, 1.5 mL, Route: SUB-Q, Drug form: INJ, Q8H, Dosing Weight 155.8, kg, Start date: 188:00:00 CDT, Stop date: 01/18/18 0:00:00 CDT Notes: porcine heparin Start Date: 12/19/17 Stop Date: 12/19/17 Status: Discontinuedheparin 7,500 unit, 1.5 mL, Route: SUB-Q, Drug form: INJ, Q8H, Dosing Weight 160, kg, Start date: 12/14/17 9:38:00 CDT, Duration: 30 day, Stop date: 01/13/18 8:00:00 CDT Notes: porcine heparin Start Date: 12/14/17 Stop Date: 12/16/17 Status: Discontinuedheparin 5,000 unit, 1 mL, Route: SUB-Q, Drug form: INJ, Q8H, kg, Start date: 12/06/17 8: 00:00 CDT, Stop date: 01/05/18 0:00:00 CDT Notes: porcine heparin Start Date: 12/06/17 Stop Date: 12/11/17 Status: Discontinuedheparin 5000 units/mL injectable solution 5,000 unit, 1 mL, Route: SUB-Q, Drug form: INJ, Q12H, Dosing Weight 155.8, kg, Start date: 12/18/17 21:00:00 CDT, Duration: 30 day, Stop date: 01/17/18 9:00: 00 CDT Notes: porcine heparin Start Date: 12/18/17 Stop Date: 12/19/17 Status: Discontinuedheparin 5000 units/mL injectable solution SUB-Q, Q8H, 0 Refill(s) Start Date: 12/19/17 Status: OrderedhydrALAZINE 10 mg, 0.5 mL, Route: IVP, Drug form: INJ, Q2H, Dosing Weight 160, kg, PRN Hypertension, Priority: NOW, Start date: 12/10/17 8:13:00 CDT, Duration: 30 day , Stop date: 01/09/18 8:12:00 CDT Notes: (Same as: Apresoline)Push over 5 minutes Start Date: 12/10/17 Stop Date: 12/19/17 Status: DiscontinuedhydrALAZINE 10 mg oral tablet 10 mg, Route: PO, Drug form: TAB, Q6H, Dosing Weight 155.8, kg, Start date: 18:00:00 CDT, Duration: 30 day, Stop date: 01/13/18 12:00:00 CDT Start Date: 12/14/17 Stop Date: 12/14/17 Status: CanceledhydrALAZINE 10 mg oral tablet 10 mg, 1 tab, Route: NG, Drug form: TAB, Q6H, Dosing Weight 155.8, kg, Start date: 12/14/17 18:00:00CDT, Duration: 30 day, Stop date: 01/13/18 12:00:00 CDT Notes: (Same as: Apresoline) May interfere w/enteral feedings.Take With Food Start Date: 12/14/17 Stop Date: 12/17/17 Status: DiscontinuedhydrALAZINE 100 mg oral tablet PO, Q6H, 0 Refill(s) Start Date: 12/19/17 Status: OrderedhydrALAZINE 50 mg oral tablet 50 mg=1 tab, PO, TID, # 90 tab, 3 Refill(s) Start Date: 12/06/17 Stop Date: 12/19/17 Status: DiscontinuedhydrALAZINE 50 mg oral tablet 100 mg, 1 tab, Route: PO, Drug form: TAB, Q6H, Dosing Weight 155.8, kg, Start date: 12/18/17 12:00:00 CDT, Duration: 30 day, Stop date: 01/17/18 6:00:00 CDT Notes: (Same as: Apresoline) May interfere w/enteral feedings - Take With Food Start Date: 12/18/17 Stop Date: 12/19/17 Status: DiscontinuedhydrALAZINE 50 mg oral tablet 50 mg, 1 tab, Route: PO, Drug form: TAB, Q6H, Dosing Weight 155.8, kg, Start date: 12/16/17 18:00:00CDT, Duration: 30 day, Stop date: 01/15/18 12:00:00 CDT Notes: (Same as: Apresoline) May interfere w/enteral feedings Take With Food Start Date: 12/16/17 Stop Date: 12/18/17 Status: Discontinuedinfluenza virus vaccine, inactivated 0.5 mL, Route: IM, Drug Form: SUSP, ONCALL, Start date: 12/12/17 23:08:24 CDT, Stop date: 01/11/18 23:03:24 CDT Notes: (Same as: Fluzone Quadrivalent, Fluarix Quadrivalent)For 3 years of age and older (0.5 mL IM)Shake well before use Start Date: 12/12/17 Stop Date: 12/19/17 Status: Canceledinsulin lispro 4 unit, 0.04 mL, Route: SUB-Q, Drug form: SOLN, Sliding Scale, Dosing Weight 160 , kg, PRN Blood Glucose Results, Start date: 12/06/17 3:56:00 CDT, Duration: 30 day, Stop date: 01/05/18 3:55:00 CDT Notes: (Same as: Humalog ) Roll in palms of hands gently; Do not shake ` vigorously. "Single PatientUse Only " WASTE: F/P - Black; E - Municipal Trash Bin Stable for 28 days at room temperature.Expires in days from Date Start Date: 12/06/17 Stop Date: 12/13/17 Status: Discontinuedinsulin lispro 5 unit, 0.05 mL, Route: SUB-Q, Drug form: SOLN, Sliding Scale, Dosing Weight 160 , kg, PRN Blood Glucose Results, Start date: 12/06/17 3:56:00 CDT, Duration: 30 day, Stop date: 01/05/18 3:55:00 CDT Notes: (Same as: Humalog ) Roll in palms of hands gently; Do not shake ` vigorously. "Single PatientUse Only " WASTE: F/P - Black; E - Municipal Trash Bin Stable for 28 days at room temperature.Expires in days from Date Start Date: 12/06/17 Stop Date: 12/13/17 Status: Discontinuedinsulin lispro 3 unit, 0.03 mL, Route: SUB-Q, Drug form: SOLN, Sliding Scale, Dosing Weight 160 , kg, PRN Blood Glucose Results, Start date: 12/06/17 3:56:00 CDT, Duration: 30 day, Stop date: 01/05/18 3:55:00 CDT Notes: (Same as: Humalog ) Roll in palms of hands gently; Do not shake ` vigorously. "Single PatientUse Only " WASTE: F/P - Black; E - Municipal Trash Bin Stable for 28 days at room temperature.Expires in days from Date Start Date: 12/06/17 Stop Date: 12/13/17 Status: Discontinuedinsulin lispro 2 unit, 0.02 mL, Route: SUB-Q, Drug form: SOLN, Sliding Scale, Dosing Weight 160 , kg, PRN Blood Glucose Results, Start date: 12/06/17 3:56:00 CDT, Duration: 30 day, Stop date: 01/05/18 3:55:00 CDT Notes: (Same as: Humalog ) Roll in palms of hands gently; Do not shake ` vigorously. "Single PatientUse Only " WASTE: F/P - Black; E - Municipal Trash Bin Stable for 28 days at room temperature.Expires in days from Date Start Date: 12/06/17 Stop Date: 12/13/17 Status: Discontinuedinsulin lispro 1 unit, 0.01 mL, Route: SUB-Q, Drug form: SOLN, Sliding Scale, Dosing Weight 160 , kg, PRN Blood Glucose Results, Start date: 12/06/17 3:56:00 CDT, Duration: 30 day, Stop date: 01/05/18 3:55:00 CDT Notes: (Same as: Humalog ) Roll in palms of hands gently; Do not shake ` vigorously. "Single PatientUse Only " WASTE: F/P - Black; E - Municipal Trash Bin Stable for 28 days at room temperature.Expires in days from Date Start Date: 12/06/17 Stop Date: 12/13/17 Status: Discontinuedinsulin lispro 6 unit, 0.06 mL, Route: SUB-Q, Drug form: SOLN, Sliding Scale, Dosing Weight 155.8, kg, PRN Blood Glucose Results, Start date: 12/13/17 8:33:00 CDT, Duration : 30 day, Stop date: 01/12/18 8:32:00 CDT Notes: (Same as: Humalog ) Roll in palms of hands gently; Do not shake ` vigorously. "Single PatientUse Only " WASTE: F/P - Black; E - Municipal Trash Bin Stable for 28 days at room temperature.Expires in days from Date Start Date: 12/13/17 Stop Date: 12/19/17 Status: Discontinuedinsulin lispro 2 unit, 0.02 mL, Route: SUB-Q, Drug form: SOLN, Sliding Scale, Dosing Weight 155.8, kg, PRN Blood Glucose Results, Start date: 12/13/17 8:33:00 CDT, Duration : 30 day, Stop date: 01/12/18 8:32:00 CDT Notes: (Same as: Humalog ) Roll in palms of hands gently; Do not shake ` vigorously. "Single PatientUse Only " WASTE: F/P - Black; E - Municipal Trash Bin Stable for 28 days at room temperature.Expires in days from Date Start Date: 12/13/17 Stop Date: 12/19/17 Status: Discontinuedinsulin lispro 4 unit, 0.04 mL, Route: SUB-Q, Drug form: SOLN, Sliding Scale, Dosing Weight 155.8, kg, PRN Blood Glucose Results, Start date: 12/13/17 8:33:00 CDT, Duration : 30 day, Stop date: 01/12/18 8:32:00 CDT Notes: (Same as: Humalog ) Roll in palms of hands gently; Do not shake ` vigorously. "Single PatientUse Only " WASTE: F/P - Black; E - Municipal Trash Bin Stable for 28 days at room temperature.Expires in days from Date Start Date: 12/13/17 Stop Date: 12/19/17 Status: Discontinuedinsulin lispro 8 unit, 0.08 mL, Route: SUB-Q, Drug form: SOLN, Sliding Scale, Dosing Weight 155.8, kg, PRN Blood Glucose Results, Start date: 12/13/17 8:33:00 CDT, Duration : 30 day, Stop date: 01/12/18 8:32:00 CDT Notes: (Same as: Humalog ) Roll in palms of hands gently; Do not shake ` vigorously. "Single PatientUse Only " WASTE: F/P - Black; E - Municipal Trash Bin Stable for 28 days at room temperature.Expires in days from Date Start Date: 12/13/17 Stop Date: 12/19/17 Status: Discontinuedinsulin lispro 10 unit, 0.1 mL, Route: SUB-Q, Drug form: SOLN, Sliding Scale, Dosing Weight 155.8, kg, PRN Blood Glucose Results, Start date: 12/13/17 8:33:00 CDT, Duration : 30 day, Stop date: 01/12/18 8:32:00 CDT Notes: (Same as: Humalog ) Roll in palms of hands gently; Do not shake ` vigorously. "Single PatientUse Only " WASTE: F/P - Black; E - Municipal Trash Bin Stable for 28 days at room temperature.Expires in days from Date Start Date: 12/13/17 Stop Date: 12/19/17 Status: Discontinuedinsulin lispro 100 units/mL subcutaneous injection 10 unit, SUB-Q, Sliding Scale, PRN Blood Glucose Results, 0 Refill(s) Start Date: 12/19/17 Status: Orderedinsulin lispro 100 units/mL subcutaneous injection 6 unit, SUB-Q, Sliding Scale, PRN Blood Glucose Results, 0 Refill(s) Start Date: 12/19/17 Status: Orderedinsulin lispro 100 units/mL subcutaneous injection 8 unit, SUB-Q, Sliding Scale, PRN Blood Glucose Results, 0 Refill(s) Start Date: 12/19/17 Status: Orderedinsulin lispro 100 units/mL subcutaneous injection 4 unit, SUB-Q, Sliding Scale, PRN Blood Glucose Results, 0 Refill(s) Start Date: 12/19/17 Status: Orderedinsulin lispro 100 units/mL subcutaneous injection 2 unit, SUB-Q, Sliding Scale, PRN Blood Glucose Results, 0 Refill(s) Start Date: 12/19/17 Status: Orderedisosorbide dinitrate 20 mg oral tablet 20 mg=1 tab, PO, BID, # 360 tab, 0 Refill(s) Start Date: 12/06/17 Stop Date: 12/19/17 Status: Discontinuedlabetalol 500 mg, 2.5 tab, Route: PO, Drug form: TAB, Q6H, Dosing Weight 155.8, kg, Priority: NOW, Start date:12/19/17 7:45:00 CDT, Duration: 30 day, Stop date: 6:00:00 CDT Notes: With food. (Same as:Trandate, Normodyne) Start Date: 12/19/17 Stop Date: 12/19/17 Status: Discontinuedlabetalol 400 mg, 2 tab, Route: NG, Drug form: TAB, Q6Hnow, Dosing Weight 160, kg, Priority: NOW, Start date: 12/10/17 8:11:00 CDT, Duration: 30 day, Stop date: 2:11:00 CDT Notes: With food. (Same as:Trandate, Normodyne) Start Date: 12/10/17 Stop Date: 12/19/17 Status: Discontinuedlabetalol 10 mg, 2 mL, Route: IVP, Drug form: INJ, Q15Min, Dosing Weight 160, kg, PRN Hypertension, Start date: 12/10/17 8:13:00 CDT, Duration: 3 doses or times, Stop date: Limited # of times Notes: (Same as: Normodyne, Trandate)Push over 2 minutes Give bolus over 2-3 minutes. Start Date: 12/10/17 Stop Date: 12/16/17 Status: Completedlabetalol 200 mg, 1 tab, Route: NG, Drug form: TAB, Q8H, Dosing Weight 160, kg, Start date : 12/09/17 0:00:00 CDT, Duration: 30 day, Stop date: 01/07/18 16:00:00 CDT Notes: With food. (Same as:Trandate, Normodyne) Start Date: 12/09/17 Stop Date: 12/10/17 Status: Discontinuedlabetalol 100 mg, 1 tab, Route: NG, Drug form: TAB, Q8H, Dosing Weight 160, kg, Start date : 12/08/17 0:00:00 CDT, Duration: 30 day, Stop date: 01/06/18 16:00:00 CDT Notes: With food. (Same as:Trandate, Normodyne) Start Date: 12/08/17 Stop Date: 12/08/17 Status: Discontinuedlabetalol 200 mg oral tablet 500 mg=2.5 tab, PO, Q6H, 0 Refill(s) Start Date: 12/19/17 Status: Orderedlabetalol 200 mg oral tablet 200 mg=1 tab, PO, BID, # 180 tab, 0 Refill(s) Start Date: 12/06/17 Stop Date: 12/19/17 Status: DiscontinuedLactated Ringers Injection IV (ANES) 1000 mL Route: IV, Total Volume: 1,000, Start date: 12/09/17 16:26:00 CDT, Stop date: 17:26:00 CDT Start Date: 12/09/17 Stop Date: 12/09/17 Status: CompletedLantus Solostar Pen 100 units/mL subcutaneous solution 12 unit, SUB-Q, Bedtime, 0 Refill(s) Start Date: 12/19/17 Status: OrderedLantus Solostar Pen 100 units/mL subcutaneous solution 12 unit, 0.12 mL, Route: SUB-Q, Drug form: SOLN, Bedtime, Dosing Weight 155.8, kg, Start date: 12/18/17 21:00:00 CDT, Duration: 30 day, Stop date: 01/16/18 21: 00:00 CDT Notes: (Same as: Lantus)Do not hold insulin without contacting prescriberWASTE: F/P - Black; E - [facility] "single patient use only" Start Date: 12/18/17 Stop Date: 12/19/17 Status: DiscontinuedLantus Solostar Pen 100 units/mL subcutaneous solution 10 unit, 0.1 mL, Route: SUB-Q, Drug form: SOLN, Bedtime, Dosing Weight 155.8, kg , Start date: 12/16/17 21:00:00 CDT, Duration: 30 day, Stop date: 01/14/18 21:00 :00 CDT Notes: (Same as: Lantus)Do not hold insulin without contacting prescriberWASTE: F/P - Black; E - [facility] "single patient use only" Start Date: 12/16/17 Stop Date: 12/18/17 Status: DiscontinuedLevemir 100 units/mL See Special Instructions, SUB-Q, BID, Inject 12 units at 9am and inject 8 units at 9pm, vial, 0 Refill(s) Start Date: 12/06/17 Stop Date: 12/19/17 Status: Discontinuedlevothyroxine 75 mcg (0.075 mg) oral tablet 75 microgram=1 tab, PO, Daily, # 30 tab, 0 Refill(s) Start Date: 12/06/17 Stop Date: 12/19/17 Status: Discontinuedlidocaine 1% 10 mL, Route: SUB-Q, Drug Form: INJ, Dosing Weight 160, kg, ONCE, NOW, Start date: 12/10/17 11:18:00CDT, Stop date: 12/10/17 11:18:00 CDT Notes: Preservative free. (Same as: Xylocaine MPF) Start Date: 12/10/17 Stop Date: 12/10/17 Status: Completedlosartan 50 mg, 1 tab, Route: PO, Drug form: TAB, Daily, Dosing Weight 155.8, kg, Priority: NOW, Start date: 12/12/17 18:27:00 CDT, Duration: 30 day, Stop date: 01/11/18 9:00:00 CDT Notes: (Same as: Cozaar) Start Date: 12/12/17 Stop Date: 12/16/17 Status: Discontinuedmagnesium citrate 1.745 g/30 mL oral liquid 300 ml, Route: PO, Drug Form: LIQ, Dosing Weight 155.8, kg, ONCE, Start date: 18:55:00 CDT,Stop date: 12/12/17 18:55:00 CDT Notes: (Same as: Citrate of Magnesia)Concentration: 1.745 gm / 30 mL Start Date: 12/12/17 Stop Date: 12/12/17 Status: Completedmetolazone 10 mg=1 tab, PO, Daily, # 15 tab, 0 Refill(s) Start Date: 12/06/17 Stop Date: 12/19/17 Status: Discontinuedmetolazone 5 mg oral tablet 5 mg=1 tab, PO, QWeekday, # 90 tab, 0 Refill(s) Start Date: 12/06/17 Stop Date: 12/19/17 Status: Discontinuedmidazolam (ANES) Route: IV, Drug form: SOLN, ONCE, Stop date: 12/09/17 17:07:00 CDT Start Date: 12/09/17 Stop Date: 12/09/17 Status: Completedminoxidil 2.5 mg oral tablet 2.5 mg=1 tab, PO, BID, # 360 tab, 0 Refill(s) Start Date: 12/06/17 Stop Date: 12/19/17 Status: DiscontinuedMiraLax 17 gm, 1 pkt, Route: PO, Drug form: PWDR, BID, Dosing Weight 160, kg, Start date : 12/11/17 17:00:00 CDT, Duration: 30 day, Stop date: 01/10/18 9:00:00 CDT Notes: Dissolve in 8 oz of water or juice.(Same as: Miralax) Start Date: 12/11/17 Stop Date: 12/19/17 Status: DiscontinuedniCARdipine 40 mg in NS 200 mL (Titrate.) IV 40 mg 40 mg, 200 mL, Rate: Titrate, Start Dose: 5 mg/hr, Titration: 2.5 mg/hour every 15 minutes, Goal(s):SBP 140-180mmHg., Max Dose: 15 mg/hr, Route: IV, Total Volume: 200, Start date: 12/06/17 3:39:00 CDT, Duration: 30 day, Stop date: 3:38:00 CDT Notes: Same as: CardeneConcentration: (0.2 mg /1 ml ) Start Date: 12/06/17 Stop Date: 12/13/17 Status: DiscontinuedNorvasc 10 mg, 1 tab, Route: GT, Drug form: TAB, Daily, Dosing Weight 160, kg, Priority : NOW, Start date: 12/10/17 8:12:00 CDT, Duration: 30 day, Stop date: 01/08/18 9 :00:00 CDT Notes: (Same as: Norvasc) Start Date: 12/10/17 Stop Date: 12/19/17 Status: DiscontinuedNorvasc 10 mg oral tablet 10 mg=1 tab, PO, Daily, # 30 tab, 1 Refill(s) Start Date: 12/06/17 Status: Orderedocular lubricant 1 appl, Route: BOTH EYES, Q6H, Drug form: OINT, Start date: 12/06/17 12:00:00 CDT, Duration: 30 day,Stop date: 01/05/18 6:00:00 CDT Notes: (Same as: Lacri-Lube, Duratears Naturale, Artificial Tears, and Tears Again ) Start Date: 12/06/17 Stop Date: 12/19/17 Status: DiscontinuedOmnipaque 350 injectable solution 150 mL, Route: IVP, Drug Form: SOLN, Dosing Weight 160, kg, ONCALL, For CTA exam in ESRD on dialysis, STAT, Start date: 12/06/17 11:25:00 CDT, Duration: 1 doses or times Notes: (same as:Omnipaque 350).WASTE: F/P - Black; E - [employer] [facility] Start Date: 12/06/17 Stop Date: 12/06/17 Status: CompletedoxyCODONE 5 mg oral tablet 5 mg, 1 tab, Route: PEG, Drug form: TAB, Q4H, Dosing Weight 155.8, kg, PRN Pain Score 4-6, Start date: 12/12/17 17:35:00 CDT, Duration: 30 day, Stop date: 01/11 17:34:00 CDT Notes: (Same as: Roxicodone) Start Date: 12/12/17 Stop Date: 12/19/17 Status: Discontinuedpantoprazole 40 mg, Route: IVP, Drug form: INJ, Before Breakfast, kg, Start date: 12/06/17 7: 30:00 CDT, Duration:30 day, Stop date: 01/04/18 7:30:00 CDT Notes: For IV push reconstitute with 10 ml 0.9% sodium chloride and push over 2 minutes. (Same as: Protonix) Start Date: 12/06/17 Stop Date: 12/06/17 Status: Discontinuedpropofol (ANES) Route: IV, Drug form: INJ, ONCE, Stop date: 12/09/17 17:07:00 CDT Start Date: 12/09/17 Stop Date: 12/09/17 Status: Completedpropofol 10 mg/mL (Titrate.) IV 1,000 mg 1,000 mg, 100 mL, Rate: Titrate, Start Dose: 5 microgram/kg/min, Titration: 5 microgram/kg/min every15 minutes, Goal(s): rass -1, Max Dose: 50 mcg/kg/min, Route: IV, Dosing Weight 160 kg, Total Volume: 100, Start date: 12/06/17 8:38: 00 CDT, Duration:... Notes: If Diprivan - change bottle & tubing every 12 hrPer state nursing law propofol can only be given by a nurse if patient is intubated or being intubated (unless the nurse is a GEOPHYSICAL LABORATORY CHIEF). Same as:Diprivan Start Date: 12/06/17 Stop Date: 12/12/17 Status: Discontinuedrocuronium 50 mg, Route: IV, ONCE, Dosing Weight 160, kg, Start date: 12/11/17 11:58:00 CDT , Stop date: 12/11/17 11:58:00 CDT Start Date: 12/11/17 Stop Date: 12/11/17 Status: Completedrocuronium (ANES) Route: IV, Drug form: INJ, ONCE, Stop date: 12/09/17 17:07:00 CDT Start Date: 12/09/17 Stop Date: 12/09/17 Status: CompletedSaline Flush 0.9% 10 ml, Route: IVP, Drug Form: INJ, kg, PRN, PRN Line Flush, Start date: 3:39:00 CDT, Duration: 30 day, Stop date: 01/05/18 3:38:00 CDT Notes: (Same as: BD Posiflush) Start Date: 12/06/17 Stop Date: 12/19/17 Status: DiscontinuedSaline Flush 0.9% 10 ml, Route: IVP, Drug Form: INJ, kg, Q12H, Start date: 12/06/17 9:00:00 CDT, Duration: 30 day, Stop date: 01/04/18 21:00:00 CDT Notes: (Same as: BD Posiflush) Start Date: 12/06/17 Stop Date: 12/19/17 Status: Discontinuedsenna 8.8 mg, 5 ml, Route: NG, Drug Form: SYRP, Dosing Weight 160, kg, Q12H, Start date: 12/06/17 21:00:00CDT, Duration: 30 day, Stop date: 01/05/18 9:00:00 CDT Notes: (Same as: Chio) Start Date: 12/06/17 Stop Date: 12/19/17 Status: DiscontinuedSodium Chloride 0.9% (titrate) 250 mL 250 mL, Rate: To prime line and flush remaining blood products., Dosing Weight 155.8, kg, Route: IV,Total Volume: 250, Priority: Routine, Start Date: 12/14/17 8:19:00 CDT, Duration: 30 day, Stop date:01/13/18 8:18:00 CDT, Replace Every: 24 hr Start Date: 12/14/17 Stop Date: 12/19/17 Status: DiscontinuedSodium Chloride 3% inhalation solution 3 mL, Route: NEB, Drug Form: MISC, Dosing Weight 160, kg, RQ4H, Start date: 19:00:00 CDT, Duration: 30 day, Stop date: 01/06/18 15:00:00 CDT Start Date: 12/07/17 Stop Date: 12/12/17 Status: Discontinuedspironolactone 50 mg oral tablet 50 mg=1 tab, PO, BID, # 60 tab, 0 Refill(s) Start Date: 12/06/17 Stop Date: 12/19/17 Status: Discontinuedvancomycin + Dextrose 5% in Water IV 250 mL 1 gm, Route: IVPB, Drug form: INJ, ONCE, Start date: 12/07/17 14:00:00 CDT, Stop date: 12/07/17 14:00:00 CDT, ABX Indication: Bacteremia Notes: TIME CRITICAL MEDICATION(Same As: Vancocin)Infusion rate< 1000 mg: infuse over 1 [id number] - 1500 mg: infuse over 1.5 [id number] - 2000 mg: infuse over 2 hours> 2001 mg: infuse over 2.5 hoursFor adult patients only: Round to nearest 250 mg per Medical Staff approval MEDICATION WASTE Product Size: 1000 mgProduct Wasted: ___ mg Start Date: 12/07/17 Stop Date: 12/07/17 Status: Completedvancomycin + Dextrose 5% in Water IV 250 mL 1,500 mg, Route: IVPB, Drug form: PDR/INJ, ONCE, Dosing Weight 155.8, kg, Priority: STAT, Start date: 12/18/17 20:47:00 CDT, Stop date: 12/18/17 20:47:00 CDT, ABX Indication: Fever of Unknown Source 0-60 days of age Notes: TIME CRITICAL MEDICATION(Same As: Vancocin)For adult patients only: Round to nearest 250 mg per Medical Staff approval Start Date: 12/18/17 Stop Date: 12/18/17 Status: Completedvancomycin + Dextrose 5% in Water IV 250 mL 1 gm, Route: IVPB, Drug form: INJ, Q---Sa, Start date: 12/08/17 18:00:00 CDT , Stop date: 12/12/17 18:00:00 CDT, ABX Indication: Bacteremia Notes: TIME CRITICAL MEDICATION(Same As: Vancocin)Infusion rate< 1000 mg: infuse over 1 [id number] - 1500 mg: infuse over 1.5 [id number] - 2000 mg: infuse over 2 hours> 2001 mg: infuse over 2.5 hoursFor adult patients only: Round to nearest 250 mg per Medical Staff approval MEDICATION WASTE Product Size: 1000 mgProduct Wasted: ___ mg Start Date: 12/08/17 Stop Date: 12/12/17 Status: Completedvancomycin + Sodium Chloride 0.9% IV 500 mL 2,000 mg, Route: IVPB, [id number], Dosing Weight 160, kg, Start date: 12/06/17 10: 00:00 CDT, Duration: 7 day, Stop date: 12/12/17 22:00:00 CDT, ABX Indication: Bacteremia Notes: TIME CRITICAL MEDICATION(Same As: Vancocin)Infusion rate< 1000 mg: infuse over 1 [id number] - 1500 mg: infuse over 1.5 [id number] - 2000 mg: infuse over 2 hours> 2001 mg: infuse over 2.5 hoursFor adult patients only: Round to nearest 250 mg per Medical Staff approval MEDICATION WASTE Product Size: 1000 mgProduct Wasted: ___ mg Start Date: 12/06/17 Stop Date: 12/06/17 Status: Discontinuedvancomycin + Sodium Chloride 0.9% IV 500 mL 2,500 mg, Route: IVPB, ONCE, Start date: 12/06/17 20:00:00 CDT, Stop date: 12/06 20:00:00 CDT, ABX Indication: Bacteremia Notes: TIME CRITICAL MEDICATION(Same As: Vancocin)Infusion rate< 1000 mg: infuse over 1 [id number] - 1500 mg: infuse over 1.5 [id number] - 2000 mg: infuse over 2 hours> 2001 mg: infuse over 2.5 hoursFor adult patients only: Round to nearest 250 mg per Medical Staff approval MEDICATION WASTE Product Size: 1000 mgProduct Wasted: ___ mg Start Date: 12/06/17 Stop Date: 12/06/17 Status: CompletedVancomycin Pharmacy Dosing 1 ea, Route: MISC, ONCALL, Dosing Weight 160, kg, Start date: 12/06/17 10:00:00 CDT, Duration: 7 day, Stop date: 12/13/17 9:59:00 CDT, Pharmacy to dose, ABX Indication: Bacteremia Start Date: 12/06/17 Stop Date: 12/06/17 Status: DiscontinuedVancomycin Pharmacy Dosing Vancomycin Pharmacy Dosing, 1, Drug form: MISC, Route: MISC, ONCALL, 12/06/17 16 :00:00 CDT, Duration: 7 day, Stop date: 12/13/17 15:59:00 CDT Start Date: 12/06/17 Stop Date: 12/12/17 Status: DiscontinuedVersed 4 mg, Route: IVP, ONCE, Dosing Weight 160, kg, Start date: 12/11/17 11:58:00 CDT , Stop date: 12/11/17 11:58:00 CDT Start Date: 12/11/17 Stop Date: 12/11/17 Status: CompletedVersed 2 mg, 2 mL, Route: IVP, Drug form: INJ, ONCE, Dosing Weight 155.8, kg, Start date: 12/12/17 18:21:00CDT, Stop date: 12/12/17 18:21:00 CDT Notes: (Same as: Versed) MEDICATION WASTE Product Size: 2 mgProduct Wasted: ___ mg Start Date: 12/12/17 Stop Date: 12/12/17 Status: CompletedZosyn + Sodium Chloride 0.9% IV 100 mL 3.375 gm, Route: IVPB, [id number], Dosing Weight 160, kg, CrCl < 20 ml/min infuse over 4 hours, Start date: 12/06/17 10:00:00 CDT, Duration: 7 day, Stop date: 12/12/17 22:00:00 CDT, ABX Indication: Bacteremia Notes: (Same as: Zosyn)Dosing based on Piperacillin component MEDICATION WASTE Product Size: 3375 mgProduct Wasted: ___ mg Start Date: 12/06/17 Stop Date: 12/06/17 Status: DiscontinuedZosyn + Sodium Chloride 0.9% IV 100 mL 3.375 gm, Route: IVPB, Drug form: PDR/INJ, [id number], Dosing Weight 155.8, kg, CrCl < 20 ml/min infuse over 4 hours, Priority: STAT, Start date: 12/18/17 20 :47:00 CDT, Duration: 7 day, Stop date: 12/25/17 8:47:00 CDT, ABX Indication: Fever of Unknown So... Notes: (Same as: Zosyn)Dosing based on Piperacillin component MEDICATION WASTE Product Size: 3375 mgProduct Wasted: ___ mg Start Date: 12/18/17 Stop Date: 12/19/17 Status: DiscontinuedZosyn + Sodium Chloride 0.9% IV 100 mL 4.5 gm, Route: IVPB, [id number], Start date: 12/06/17 13:00:00 CDT, Duration: 7 day , Stop date: 12/13/17 1:00:00 CDT, ABX Indication: Bacteremia Notes: (Same as: Zosyn)Dosing based on Piperacillin component MEDICATION WASTE Product Size: 4500 mgProduct Wasted: _0_ mg Start Date: 12/06/17 Stop Date: 12/12/17 Status: Discontinued Results BLOOD BANK RESULTS Most recent to oldest [Reference Range]: 1 2 3 ABO/Rh O POS *Unknown* (12/14/17 9:47 AM) Antibody Scrn Negative (12/14/17 9:47 AM) FFP product Product available 1 Product available 2 (12/17/17 2:29 PM) (12/16/17 10:57 AM) RBC product Product available 3 (12/14/17 8:19 AM) 1Result Comment: 12/17/2017 14:47 [id number] Plasma available, notified Katie LING at 12/17/2017 14:47 by .2Result Comment: 11:08 [id number] FFP available, notified Evelyn Lopes 11:08 at 12/16/2017 11:08 by [email or web address].3Result Comment: 12/14/2017 10:47 [id number] Blood available, notified BRIAN at 12/14/2017 10:47 by CHERIE.[email or web address] Most recent to oldest 1 2 3 [Reference Range]: Sodium Lvl [135-145 mEq/L] 133 mEq/L 133 mEq/L 134 mEq/L *LOW* *LOW* *LOW* (12/19/17 4:36 AM) (12/18/17 4:27 AM) (12/17/17 3:52 AM) Potassium Lvl [3.5-5.1 4.2 mEq/L 4.6 mEq/L 4.3 mEq/L mEq/L] (12/19/17 4:36 AM) (12/18/17 4:27 AM) (12/17/17 3:52 AM) Chloride Lvl [95-109 mEq/L] 97 mEq/L 94 mEq/L 95 mEq/L (12/19/17 4:36 AM) *LOW* (12/17/17 3:52 AM) (12/18/17 4:27 AM) CO2 [24-32 mEq/L] 26 mEq/L 25 mEq/L 30 mEq/L (12/19/17 4:36 AM) (12/18/17 4:27 AM) (12/17/17 3:52 AM) AGAP [10.0-20.0 mEq/L] 14.2 mEq/L 18.6 mEq/L 13.3 mEq/L (12/19/17 4:36 AM) (12/18/17 4:27 AM) (12/17/17 3:52 AM) CHEM PANEL Most recent to oldest 1 2 3 [Reference Range]: Creatinine Lvl [0.50-1.40 6.80 mg/dL 8.40 mg/dL 6.30 mg/dL mg/dL] *HI* *HI* *HI* (12/19/17 4:36 AM) (12/18/17 4:27 AM) (12/17/17 3:52 AM) eGFR 10 mL/min/1.73m2 1 8 mL/min/1.73m2 2 11 mL/min/1.73m2 3 *NA* *NA* *NA* (12/19/17 4:36 AM) (12/18/17 4:27 AM) (12/17/17 3:52 AM) BUN [7-22 mg/dL] 67 mg/dL 82 mg/dL 60 mg/dL *HI* *HI* *HI* (12/19/17 4:36 AM) (12/18/17 4:27 AM) (12/17/17 3:52 AM) B/C Ratio [6-25] 10 10 10 (12/19/17 4:36 AM) (12/18/17 4:27 AM) (12/17/17 3:52 AM) Glucose Lvl [70-99 mg/dL] 190 mg/dL 191 mg/dL 169 mg/dL *HI* *HI* *HI* (12/19/17 4:36 AM) (12/18/17 4:27 AM) (12/17/17 3:52 AM) Total Protein [6.4-8.4 9.9 g/dL 10.3 g/dL 10.4 g/dL g/dL] *HI* *HI* *HI* (12/19/17 4:36 AM) (12/18/17 4:27 AM) (12/17/17 3:52 AM) Albumin Lvl [3.5-5.0 g/dL] 2.2 g/dL 2.4 g/dL 2.2 g/dL *LOW* *LOW* *LOW* (12/19/17 4:36 AM) (12/18/17 4:27 AM) (12/17/17 3:52 AM) Globulin [2.7-4.2 g/dL] 7.7 g/dL 7.9 g/dL 8.2 g/dL *HI* *HI* *HI* (12/19/17 4:36 AM) (12/18/17 4:27 AM) (12/17/17 3:52 AM) A/G Ratio [0.7-1.6] 0.3 0.3 0.3 *LOW* *LOW* *LOW* (12/19/17 4:36 AM) (12/18/17 4:27 AM) (12/17/17 3:52 AM) Calcium Lvl [8.5-10.5 9.6 mg/dL 10.0 mg/dL 9.4 mg/dL mg/dL] (12/19/17 4:36 AM) (12/18/17 4:27 AM) (12/17/17 3:52 AM) Phosphorus [2.5-4.5 mg/dL] 3.5 mg/dL 4.3 mg/dL 4.1 mg/dL (12/19/17 4:36 AM) (12/16/17 3:59 AM) (12/15/17 3:29 AM) Magnesium Lvl [1.8-2.4 2.6 mg/dL 2.9 mg/dL 2.6 mg/dL mg/dL] *HI* *HI* *HI* (12/19/17 4:36 AM) (12/16/17 3:59 AM) (12/15/17 3:29 AM) ALT [0-65 unit/L] 26 unit/L 26 unit/L 26 unit/L (12/19/17 4:36 AM) (12/18/17 4:27 AM) (12/17/17 3:52 AM) AST [0-37 unit/L] 34 unit/L 37 unit/L 42 unit/L (12/19/17 4:36 AM) (12/18/17 4:27 AM) *HI* (12/17/17 3:52 AM) Alk Phos [39-136 unit/L] 223 unit/L 224 unit/L 235 unit/L *HI* *HI* *HI* (12/19/17 4:36 AM) (12/18/17 4:27 AM) (12/17/17 3:52 AM) Bili Total [0.2-1.3 mg/dL] 0.6 mg/dL 0.7 mg/dL 0.6 mg/dL (12/19/17 4:36 AM) (12/18/17 4:27 AM) (12/17/17 3:52 AM) Bili Direct [0.0-0.3 0.1 mg/dL <0.1 mg/dL mg/dL] (12/09/17 4:13 AM) (12/06/17 4:00 AM) Bili Indirect [0.0-1.0 0.3 mg/dL mg/dL] (12/09/17 4:13 AM) Bili Indirect [0.0-1.0] Unable to Calculate *NA* (12/06/17 4:00 AM) Lactic Acid Lvl [0.5-2.2 1.0 mMol/L 0.5 mMol/L 1.1 mMol/L mMol/L] (12/18/17 9:19 PM) (12/14/17 6:55 PM) (12/06/17 2:03 PM) 1Result Comment: The eGFR is calculated using the CKD-EPI formula. In most young , healthy individualsthe eGFR will be >90 mL/min/1.73m2. The eGFR declines with age. An eGFR of 60-89 may be normal insome populations, particularly the elderly, for whom the CKD-EPI formula has not been extensively validated. Use of the eGFR is not recommended in the following populations: Individuals with unstable creatinine concentrations, including patients and those with serious co-morbid conditions. Patients with extremes in muscle mass or diet. The data above are obtained from the National Kid[employer] Disease Education Program ( [employer]) which additionally recommends that when the eGFR is used in patients with extremes of body mass index for purposesof drug dosing, the eGFR should be multiplied by the estimated BMI.2Result Comment: The eGFR is calculated using the CKD-EPI formula. In most young, healthy individualsthe eGFR will be >90 mL/min/1.73m2. The eGFR declines with age. An eGFR of 60-89 may be normal insome populations, particularly the elderly, for whom the CKD-EPI formula has not been extensively validated. Use of the eGFR is not recommended in the following populations: Individuals with unstable creatinine concentrations, including patients and those with serious co-morbid conditions. Patients with extremes in muscle mass or diet. The data above are obtained from the National Kid[employer] Disease Education Program ( [employer]) which additionally recommends that when the eGFR is used in patients with extremes of body mass index for purposesof drug dosing, the eGFR should be multiplied by the estimated BMI.3Result Comment: The eGFR is calculated using the CKD-EPI formula. In most young, healthy individualsthe eGFR will be >90 mL/min/1.73m2. The eGFR declines with age. An eGFR of 60-89 may be normal insome populations, particularly the elderly, for whom the CKD-EPI formula has not been extensively validated. Use of the eGFR is not recommended in the following populations: Individuals with unstable creatinine concentrations, including patients and those with serious co-morbid conditions. Patients with extremes in muscle mass or diet. The data above are obtained from the National Kid[employer] Disease Education Program ( [employer]) which additionally recommends that when the eGFR is used in patients with extremes of body mass index for purposesof drug dosing, the eGFR should be multiplied by the estimated BMI.CARDIAC ENZYMES Most recent to oldest [Reference Range]: 1 2 3 Troponin-I [0.00-0.40 ng/mL] 0.07 ng/mL 0.06 ng/mL (12/06/17 2:03 PM) (12/06/17 4:00 AM) BNP [<=100 pg/mL] 221 pg/mL *HI* (12/14/17 3:12 AM) LIPIDS Most recent to oldest [Reference Range]: 1 2 3 CHD Risk [4.00-7.30] 4.12 (12/06/17 4:00 AM) Chol [<=199 mg/dL] 99 mg/dL (12/06/17 4:00 AM) Trig [<=149 mg/dL] 115 mg/dL (12/06/17 4:00 AM) HDL [>=61 mg/dL] 24 mg/dL *LOW* (12/06/17 4:00 AM) LDL (Calculated) [<=99 mg/dL] 52 mg/dL (12/06/17 4:00 AM) VLDL 23 *NA* (12/06/17 4:00 AM) SPECIAL CHEMISTRY Most recent to oldest [Reference Range]: 1 2 3 Hgb A1C [<=5.6 %] 7.8 % *HI* (12/06/17 4:00 AM) ANEMIA STUDY Most recent to oldest [Reference Range]: 1 2 3 Vitamin B12 Lvl [254-1320 pg/mL] 675 pg/mL (12/10/17 4:28 AM) PARATHYROID PROFILE Most recent to oldest 1 2 3 [Reference Range]: Ca Ion WB [1.05-1.25 mMol/L] 1.19 mMol/L 1.17 mMol/L 1.08 mMol/L (12/19/17 4:36 AM) (12/16/17 3:59 AM) (12/15/17 3:29 AM) Ca Norm WB [1.05-1.25 1.18 mMol/L 1.18 mMol/L 1.13 mMol/L mMol/L] (12/19/17 4:36 AM) (12/16/17 3:59 AM) (12/15/17 3:29 AM) TOXICOLOGY Most recent to oldest 1 2 3 [Reference Range]: Vanco Tr TND [id number] *NA* (12/12/17 4:59 AM) Vanco Lvl 21.8 ug/ml 22.6 ug/ml 26.7 ug/ml *NA* *NA* *NA* (12/10/17 4:28 AM) (12/09/17 9:05 AM) (12/08/17 10:59 AM) Vanco Tr 18.3 ug/ml *NA* (12/12/17 4:59 AM) URINE CHEM Most recent to oldest [Reference Range]: 1 2 3 U Sodium 22 mEq/L *NA* (12/07/17 5:02 PM) U Osmolality [300-800 mOsm/kg] 316 mOsm/kg (12/07/17 5:02 PM) URINE AND STOOL Most recent to oldest [Reference Range]: 1 2 3 UA Turbidity [Clear] Marked *ABN* (12/07/17 5:02 PM) UA Color Rita *NA* (12/07/17 5:02 PM) UA pH [5.0-8.0] 5.0 (12/07/17 5:02 PM) UA Spec Grav [<=1.030] 1.023 (12/07/17 5:02 PM) UA Glucose 50 mg/dL *NA* (12/07/17 5:02 PM) UA Blood [Negative] Negative (12/07/17 5:02 PM) UA Ketones [Negative mg/dL] Negative mg/dL *NA* (12/07/17 5:02 PM) UA Protein [Negative mg/dL] 100 mg/dL *ABN* (12/07/17 5:02 PM) UA Urobilinogen [0.1-1.0 mg/dL] <=1.0 mg/dL *NA* (12/07/17 5:02 PM) UA Bili [Negative] Negative *NA* (12/07/17 5:02 PM) UA Leuk Est [Negative] Trace *ABN* (12/07/17 5:02 PM) UA Nitrite [Negative] Negative (12/07/17 5:02 PM) UA WBC [0-5 /HPF] 13 /HPF *HI* (12/07/17 5:02 PM) UA RBC [0-2 /HPF] 5 /HPF *HI* (12/07/17 5:02 PM) UA Bacteria [None Seen /HPF] Few /HPF *NA* (12/07/17 5:02 PM) UA Sq Epi [Few /LPF] Occasional /LPF *NA* (12/07/17 5:02 PM) UA Amorph Yvonne [None Seen /HPF] Occasional /HPF *NA* (12/07/17 5:02 PM) UA Mucus [None Seen /LPF] Few /LPF *NA* (12/07/17 5:02 PM) BODY FLUIDS Most recent to oldest [Reference Range]: 1 2 3 Glucose CSF [45-80 mg/dL] 99 mg/dL *HI* (12/10/17 6:46 PM) Protein CSF [15-45 mg/dL] 27 mg/dL (12/10/17 6:46 PM) Tube Num CSF 1 *NA* (12/10/17 6:46 PM) Color CSF [Colorless] Colorless (12/10/17 6:46 PM) Clarity CSF [Clear] Clear (12/10/17 6:46 PM) Supernat CSF [Colorless] Colorless (12/10/17 6:46 PM) RBC CSF [0-0 /mm3] 310 /mm3 *HI* (12/10/17 6:46 PM) WBC CSF [0-5 /mm3] 1 /mm3 (12/10/17 6:46 PM) IMMUNOLOGY Most recent to oldest [Reference 1 2 3 Range]: Treponemal Ab [Non Reactive] Non Reactive *NA* (12/10/17 4:28 AM) VDRL Scr CSF [Non Reactive] Non Reactive (12/10/17 6:46 PM) GRETEL [Negative] Positive *ABN* (12/09/17 10:02 PM) GRETEL Titer [Negative] 1:40 *ABN* (12/09/17 10:02 PM) GRETEL Interp Pattern appears speckled *NA* (12/09/17 10:02 PM) C3 Complement [88-201 mg/dL] 133 mg/dL (12/10/17 4:28 AM) C4 Complement [16-47 mg/dL] 22 mg/dL (12/10/17 4:28 AM) SS-A (Ro) Ab [<=0.9 AI] <0.2 AI (12/09/17 10:02 PM) SS-B (La) Ab [<=0.9 AI] <0.2 AI (12/09/17 10:02 PM) C-ANCA [Negative] Negative (12/09/17 10:02 PM) P-ANCA [Negative] Negative (12/09/17 10:02 PM) Cryoglob [Negative] Negative (12/09/17 10:02 PM) CRP [<=2.9 mg/L] 112.0 mg/L *HI* (12/10/17 4:28 AM) HIV Ag/Ab 4th Gen [Negative] Negative *NA* (12/09/17 10:02 PM) Cardiolipin IgA [<=19.9 APL-U/mL] <0.5 APL-U/mL (12/09/17 10:02 PM) Cardiolipin IgG [<=19.9 GPL-U/mL] <1.6 GPL-U/mL (12/09/17 10:02 PM) Cardiolipin IgM [<=19.9 MPL-U/mL] <0.2 MPL-U/mL (12/09/17 10:02 PM) Homocyst Tot [3.7-13.9 uMol/L] 13.7 uMol/L (12/10/17 4:28 AM) DC CSF [<=3 unit/L] 3 unit/L (12/10/17 6:46 PM) Hep Bs Ag [Negative] Negative *NA* (12/06/17 4:25 PM) Hep C Ab Negative *NA* (12/06/17 4:25 PM) Hgb S % [0.0-0.0 %] 0.0 % (12/09/17 10:02 PM) Hgb A % [95.8-97.8 %] 98.0 % *HI* (12/09/17 10:02 PM) Hgb A2 % [2.2-3.2 %] 2.0 % *LOW* (12/09/17 10:02 PM) Hgb F % [0.0-1.0 %] 0.0 % (12/09/17 10:02 PM) Hgb C % [0.0-0.0 %] 0.0 % (12/09/17 10:02 PM) Hgb Interp No abnormal hemoglobins are detected; normal hemoglobin electrophoresis pattern. This patient has microcytic hypochromic anemia. Differential diagnosis includes iron deficiency, anemia of chronic disease and alpha thalassemia trait. Iron studies are unavailable from the EMR. Please note, iron deficiency may falsely lower HbA2 levels, thus masking beta thalassemia trait. I have personally reviewed the test results and concur with the resident's interpretation. CPT 52708-PA *NA* (12/09/17 10:02 PM) IgG Lvl CSF [2.0-4.0 mg/dL] 6.2 mg/dL *HI* (12/10/17 6:46 PM) IgG (CPE) [694-1618 mg/dL] 3320 mg/dL *HI* (12/10/17 6:46 PM) Alb CSF (CPE) [14.0-25.0 mg/dL] 11.4 mg/dL *LOW* (12/10/17 6:46 PM) Alb (CPE) [3400.0-5000.0 mg/dL] 2000.0 mg/dL *LOW* (12/10/17 6:46 PM) IgG Index [0.3-0.7 mg/dL] 0.3 mg/dL (12/10/17 6:46 PM) PE Interp CSF CSF protein electrophoresis did not reveal evidence of an oligoclonal process in the DIRECTOR OF RESEARCH. The CSF IgG index is within the reference range indicating that there is no elevation in intracerebral IgG synt hesis. There is also no evidence of increased permeability of the blood brain barrier based on the CSF/serum albumin ratio. The electronic medical record has been reviewed for relevant history. I have personally reviewed the test results and concur with the resident's interpretation. CPT: 93177-CP *NA* (12/10/17 6:46 PM) Description CSF The gel demonstrates appropriate resolution of the main protein bands. The gamma region shows continuous distribution of proteins both in the CSF and in the serum. No oligoclonal bands are detected. *NA* (12/10/17 6:46 PM) HEMATOLOGY Most recent to oldest 1 2 3 [Reference Range]: WBC [3.7-10.4 K/CMM] 13.7 K/CMM 12.5 K/CMM 9.1 K/CMM *HI* *HI* (12/17/17 3:52 AM) (12/19/17 4:36 AM) (12/18/17 4:27 AM) RBC [4.70-6.10 M/CMM] 3.17 M/CMM 3.23 M/CMM 3.29 M/CMM *LOW* *LOW* *LOW* (12/19/17 4:36 AM) (12/18/17 4:27 AM) (12/17/17 3:52 AM) Hgb [14.0-18.0 g/dL] 7.9 g/dL 8.1 g/dL 8.4 g/dL *LOW* *LOW* *LOW* (12/19/17 4:36 AM) (12/18/17 4:27 AM) (12/17/17 3:52 AM) Hct [42.0-54.0 %] 24.4 % 24.5 % 25.0 % *LOW* *LOW* *LOW* (12/19/17 4:36 AM) (12/18/17 4:27 AM) (12/17/17 3:52 AM) MCV [80.0-94.0 fL] 77.1 fL 75.7 fL 76.0 fL *LOW* *LOW* *LOW* (12/19/17 4:36 AM) (12/18/17 4:27 AM) (12/17/17 3:52 AM) MCH [27.0-31.0 pg] 24.9 pg 25.0 pg 25.5 pg *LOW* *LOW* *LOW* (12/19/17 4:36 AM) (12/18/17 4:27 AM) (12/17/17 3:52 AM) MCHC [32.0-36.0 g/dL] 32.4 g/dL 33.0 g/dL 33.5 g/dL (12/19/17 4:36 AM) (12/18/17 4:27 AM) (12/17/17 3:52 AM) RDW [11.5-14.5 %] 20.7 % 20.2 % 19.9 % *HI* *HI* *HI* (12/19/17 4:36 AM) (12/18/17 4:27 AM) (12/17/17 3:52 AM) MPV [7.4-10.4 fL] 7.8 fL 8.3 fL 8.0 fL (12/19/17 4:36 AM) (12/18/17 4:27 AM) (12/17/17 3:52 AM) Platelet [133-450 317 K/CMM 373 K/CMM 368 K/CMM K/CMM] (12/19/17 4:36 AM) (12/18/17 4:27 AM) (12/17/17 3:52 AM) Segs [45.0-75.0 %] 82.0 % 81.2 % 76.3 % *HI* *HI* *HI* (12/19/17 4:36 AM) (12/18/17 4:27 AM) (12/17/17 3:52 AM) Lymphocytes [20.0-40.0 7.0 % 7.5 % 11.5 % %] *LOW* *LOW* *LOW* (12/19/17 4:36 AM) (12/18/17 4:27 AM) (12/17/17 3:52 AM) Monocytes [2.0-12.0 %] 7.1 % 7.8 % 8.1 % (12/19/17 4:36 AM) (12/18/17 4:27 AM) (12/17/17 3:52 AM) Eosinophils [0.0-4.0 %] 3.7 % 3.4 % 3.7 % (12/19/17 4:36 AM) (12/18/17 4:27 AM) (12/17/17 3:52 AM) Basophils [0.0-1.0 %] 0.2 % 0.1 % 0.4 % (12/19/17 4:36 AM) (12/18/17 4:27 AM) (12/17/17 3:52 AM) Segs-Bands # [1.5-8.1 11.2 K/CMM 10.2 K/CMM 6.9 K/CMM K/CMM] *HI* *HI* (12/17/17 3:52 AM) (12/19/17 4:36 AM) (12/18/17 4:27 AM) Lymphocytes # [1.0-5.5 1.0 K/CMM 0.9 K/CMM 1.0 K/CMM K/CMM] (12/19/17 4:36 AM) *LOW* (12/17/17 3:52 AM) (12/18/17 4:27 AM) Monocytes # [0.0-0.8 1.0 K/CMM 1.0 K/CMM 0.7 K/CMM K/CMM] *HI* *HI* (12/17/17 3:52 AM) (12/19/17 4:36 AM) (12/18/17 4:27 AM) Eosinophils # [0.0-0.5 0.5 K/CMM 0.4 K/CMM 0.3 K/CMM K/CMM] (12/19/17 4:36 AM) (12/18/17 4:27 AM) (12/17/17 3:52 AM) Basophils # [0.0-0.2 0.1 K/CMM 0.1 K/CMM 0.1 K/CMM K/CMM] (12/14/17 3:12 AM) (12/08/17 4:39 AM) (12/06/17 4:08 AM) Anisocyte [None Seen] 1+ *ABN* (12/06/17 4:08 AM) Microcyte [None Seen] 1+ 1+ 1+ *ABN* *ABN* *ABN* (12/19/17 4:36 AM) (12/18/17 4:27 AM) (12/17/17 3:52 AM) Target Cell [None Seen] Moderate *ABN* (12/08/17 4:39 AM) Plt Morph Normal (12/08/17 4:39 AM) Sed Rate [0-15 mm/hr] >100 mm/hr *ABN* (12/09/17 10:02 PM) PT [12.0-14.7 seconds] 16.2 seconds 16.3 seconds 15.8 seconds *HI* *HI* *HI* (12/19/17 4:36 AM) (12/18/17 4:27 AM) (12/17/17 3:52 AM) INR [0.85-1.17] 1.29 1.30 1.25 *HI* *HI* *HI* (12/19/17 4:36 AM) (12/18/17 4:27 AM) (12/17/17 3:52 AM) F2 Mutation PCR Negative (12/09/17 10:02 PM) F2 Mut Interp FACTOR II PT: Negative INTERPRETATION: Molecular analysis for the Factor II (Prothrombin) [id number] mutation was negative. Other causes of elevated prothrombin levels and hereditary forms of venous thrombosis are not ruled out. Final diagnosis requires correlation with clinical history and other pertinent laboratory findings. Where appropriate, medical consultation and genetic counseling should be offered to inform and explain the risk implications and genetic implications of these test results. ASSAY LIMITATIONS: The assay uses the FDA-cleared [employer] Factor II (Prothrombin) [id number] IVD (Polymerase chain reaction/FRET detection)kit, [employer] Instrument and the [employer] LightCycler 1.2 Instrument. A 165-bp fragment of Factor II gene(FII) containing the Factor II [id number] sequence is amplified in the assay. The assay is designed to detect the [id number] mutation only. Other causes of elevated prothrombin levels and hereditary forms of venous thrombosis are not ruled out. However, the melting curve analysis may implicate the presence of a possible rare mutation at position 37339 ( Further testing will be recommended in the report). A minimum detection level is 198 copies of Factor II per reaction. The level of agreement between the Factor II(Prothrombin) [id number] Kit and sequence analysis was 98.9%. The test result must be interpreted along with the patient's clinical history and revelant laboratory data. This assay has been validated by [facility]. *NA* (12/09/17 10:02 PM) F5 Leiden PCR Negative (12/09/17 10:02 PM) F5 Leiden Intrp FACTOR V LEIDEN: Negative INTERPRETATION: Molecular analysis for the Factor V Leiden, R506Q mutation was negative. Other causes of activated protein C resistance and hereditary forms of venous thrombosis are not ruled out. Final diagnosis requires correlation with clinical history and other pertinent laboratory findings. Where appropriate, medical consultation and/or genetic counseling should be offered to inform and explain the risk implications and genetic implications of these test results. ASSAY LIMITATIONS: The assay uses the FDA-cleared Obdulio Factor V Leiden IVD(Poymerase chain reaction/FRET detection)kit, [employer]io [employer] LiftMetrix LC Instrument and the Obdulio LightCycler 1.2 Instrument. A 222-bp fragment of Fact or V gene (FV) containing the Factor V Leiden sequence is amplified in the assay. The assay is designed to detect the G 1691A mutation only. Other causes of activated protein C resistance and hereditary forms of venous thrombosis are not ruled out. However,the melting curve analysis may implicate the presence of possible rare mutations at positions 1689 , 1692 and 1696. (Further testing will be recomme nded in the report). A minimum detection level is 202 copies of Factor V Leiden per reaction. The level of agreement between the Factor V Leiden Kit and sequence analysis was 99.4%. The test result must be interpreted along with the patient's clinical history and relevant laboratory data. This assay has been validated by [facility]. *NA* (12/09/17 10:02 PM) AT III Func [77-140 %] 89 % (12/09/17 10:02 PM) PTT [22.9-35.8 seconds] 33.9 seconds 31.6 seconds 33.8 seconds (12/19/17 4:36 AM) (12/18/17 4:27 AM) (12/17/17 3:52 AM) dRVV Ratio [<=1.20] 1.10 (12/09/17 10:02 PM) Hex Phos N [Negative] Negative (12/09/17 10:02 PM) Lup Interp Negative for lupus anticoagulant by DRVV screen and hexagonal phospholipid neutralization test. If there is a strong clinical suspicion of lupus anticoagulant, additional testing, to include repeat studies at a clinically appropriate interval and anticardiolipin antibody assays, is recommended. Interpretation performed at [facility]. *NA* (12/09/17 10:02 PM) Protein C Func [72-147 102 % %] (12/10/17 4:28 AM) APC Resist [2.2-3.5 2.5 Ratio 1 Ratio] *NA* (12/09/17 10:02 PM) Protein S Func [54-137 94 % %] (12/10/17 4:28 AM) 1Result Comment: The APCR result may be falsely increased (masking an abnormal, low APCR result) in patients on direct Xa inhibitor (e.g., rivaroxaban, apixaban, edoxaban) or a direct thrombin inhibitor (e.g., dabigatran) anticoagulant therapy due to assay interference by these drugs. Performed At: [address] [id number] Tania Butler MD Ph:[phone] Most recent to oldest [Reference Range]: 1 2 3 Source HSV CSF 1 (12/10/17 6:46 PM) HSV 1 by PCR [Negative] Not Performed (12/10/17 6:46 PM) HSV 2 by PCR [Negative] Not Performed (12/10/17 6:46 PM) Source VZV Cerebral Spinal Fluid *NA* (12/10/17 6:46 PM) VZV PCR [Negative] Negative (12/10/17 6:46 PM) 1Result Comment: CSF contains less than 5 WBC'S and has a normal Protein level.FUNGAL - SEROLOGY Most recent to oldest [Reference Range]: 1 2 3 Crypto Ag CSF [Negative] Negative (12/10/17 6:46 PM) Microbiology Reports TEST:Culture: Respiratory w/Gram Stain STATUS:Auth (Verified) BODY SITE: SOURCE:Bronch Tarun. Lavage COLLECTED DATE/TIME:12/18/17 8:49 PMFINAL REPORTMany Escherichia coli Normal Respiratory Nova IsolatedSTAIN REPORTRare WBC's Rare Gram Negative Rods ORGANISM:Escherichia coliTEST:Culture: CSF w/Gram Stain STATUS:Auth (Verified) BODY SITE: SOURCE:Cerebral Spinal Fluid COLLECTED DATE/TIME:12/10/17 6:46 PMFINAL REPORTNo GrowthSTAIN REPORT No Wbc'S Or Organisms SeenTEST:Culture: Urine STATUS:Auth (Verified) BODY SITE: SOURCE:Urine, Clean Catch COLLECTED DATE/TIME:12/07/17 5:00 PMFINAL REPORT<10,000 CFU/mL YeastTEST :Culture: Respiratory w/Gram Stain STATUS:Auth (Verified) BODY SITE: SOURCE:Tracheal Aspirate COLLECTED DATE/TIME:12/06/17 11:09 AMFINAL REPORTNormal Respiratory Nova IsolatedSTAIN REPORTLess Than 25 Squamous Epithelial Cells/Lpf Many Leukocytes/Lpf Few Gram Negative Rods Few Gram Positive Cocci . Good Quality Specimen Immunizations Not Given Vaccine Date Status Refusal Reason pneumococcal 13-valent vaccine1 12/19/17 Not Given Parent Or Guardian Refuses 1Result Comment: Patient's mother and Grandmother refused pneumococcal vaccine Procedures Procedure Date Related Diagnosis Body Site Status Spinal puncture, lumbar, diagnostic 12/10/17 Completed Intubation, endotracheal, emergency 12/06/17 Completed procedure Social History Social History Type Response Alcohol Previous treatment: None. Alcohol use interferes with work or home: No. Drinks more than intended: No. Others hurt by drinking: No. Ready to change: No. Household alcohol concerns: No. Smoking Status Never smoker; Previous treatment: None; Ready to change: No; Concerns about tobacco use in household: No; Exposure to Tobacco Smoke Unable to obtain; Cigarette Smoking Last 365 Days No; Reg Smoking Cessation Counseling No entered on: 12/06/17 Assessment and Plan Extracted from: Title: renal neuro floor Author: Matthew Wesley MD Date: 12/19/17 continues on mechanical ventilation peak pressures 22 Vital Signs (last 24 hrs) Last Charted Heart Rate Apical 94 bpm (DEC 19 18:00) Resp Rate 18 BRMIN (DEC 19 18:00) SBP 133 mmHg (DEC 19 18:00) DBP 83 mmHg (DEC 19 18:00) SpO2 99 % (DEC 19 19:07) Height 193.04 cm (DEC 19 19:07) I/O Intake Output Balance 12/19/2017 7a-3p 691.00 3214.00 -2523.00 3p-11p 0.50 0.00 0.50 11p-7a 0.00 0.00 0.00 Totals 691.50 3214.00 -2522.50 As of 20:35 12/18/2017 7a-3p 388.00 4100.00 -3712.00 3p-11p 691.95 0.00 691.95 11p-7a 406.56 0.00 406.56 Totals 1486.51 4100.00 -2613.49 12/17/2017 7a-3p 493.00 0.00 493.00 3p-11p 610.75 0.00 610.75 11p-7a 91.50 0.00 91.50 Totals 1195.25 0.00 1195.25 comfortable opens eyes, lots of spontanoues movements, appears to respond, follows basic commands +trach s1 s2 regular +crackles large pannus soft, +BS obese body habitus +Edema +moving hands , in restraints Labs (Last four charted values) WBC H 13.7 (DEC 19) H 12.5 (DEC 18) 9.1 (DEC 17) H 10.8 (DEC 16) Hgb L 7.9 (DEC 19) L 8.1 (DEC 18) L 8.4 (DEC 17) L 8.1 (DEC 16 ) Hct L 24.4 (DEC 19) L 24.5 (DEC 18) L 25.0 (DEC 17) L 24.1 ( DEC 16) Plt 317 (DEC 19) 373 (DEC 18) 368 (DEC 17) 405 (DEC 16) Na L 133 (DEC 19) L 133 (DEC 18) L 134 (DEC 17) L 134 (DEC 16 ) K 4.2 (DEC 19) 4.6 (DEC 18) 4.3 (DEC 17) 4.2 (DEC 16) CO2 26 (DEC 19) 25 (DEC 18) 30 (DEC 17) 26 (DEC 16) Cl 97 (DEC 19) L 94 (DEC 18) 95 (DEC 17) 95 (DEC 16) Cr H 6.80 (DEC 19) H 8.40 (DEC 18) H 6.30 (DEC 17) H 8.00 ( DEC 16) BUN H 67 (DEC 19) H 82 (DEC 18) H 60 (DEC 17) H 81 (DEC 16) Glucose Random H 190 (DEC 19) H 191 (DEC 18) H 169 (DEC 17) H 200 (DEC 16 ) Mg H 2.6 (DEC 19) H 2.9 (DEC 16) H 2.6 (DEC 15) H 2.8 (DEC 14 ) Phos 3.5 (DEC 19) 4.3 (DEC 16) 4.1 (DEC 15) H 5.1 (DEC 14) Ca 9.6 (DEC 19) 10.0 (DEC 18) 9.4 (DEC 17) 9.4 (DEC 16) PT H 16.2 (DEC 19) H 16.3 (DEC 18) H 15.8 (DEC 17) H 15.8 ( DEC 16) INR H 1.29 (DEC 19) H 1.30 (DEC 18) H 1.25 (DEC 17) H 1.25 ( DEC 16) PTT 33.9 (DEC 19) 31.6 (DEC 18) 33.8 (DEC 17) 34.0 (DEC 16) Troponin 0.07 (DEC 06) 0.06 (DEC 06) CXR 1. Left lower lobe airspace disease is unchanged. 2. Support devices are stable. A. 1. ESRD on HD MWF 2. HTN 3. Anemia of CKD 4. Fluid overload 5. Acute ischemic stroke 6. Anoxic brain injury 7. Acute hypoxic respiratory failure s/p tracheostomy 8. Morbid obesity P. 1. S/p PUF today, UF=3.2 L , HD saturday and saturday 2. Epogen 3. Okay to transfer to [facility] per nephrology standpoint Extracted from: Title: Discharge Summary * Author: Samuel Gates MD Date: 12/19/17 Patient: BEKAH STEPHENS JR Age: 27 years Sex: Male : 1990 Associated Diagnoses: None Author: Samuel Gates MD Results Review General results Labs (Last four charted values) WBC H 13.7 (DEC 19) H 12.5 (DEC 18) 9.1 (DEC 17) H 10.8 (DEC 16) Hgb L 7.9 (DEC 19) L 8.1 (DEC 18) L 8.4 (DEC 17) L 8.1 (DEC 16 ) Hct L 24.4 (DEC 19) L 24.5 (DEC 18) L 25.0 (DEC 17) L 24.1 ( DEC 16) Plt 317 (DEC 19) 373 (DEC 18) 368 (DEC 17) 405 (DEC 16) Na L 133 (DEC 19) L 133 (DEC 18) L 134 (DEC 17) L 134 (DEC 16 ) K 4.2 (DEC 19) 4.6 (DEC 18) 4.3 (DEC 17) 4.2 (DEC 16) CO2 26 (DEC 19) 25 (DEC 18) 30 (DEC 17) 26 (DEC 16) Cl 97 (DEC 19) L 94 (DEC 18) 95 (DEC 17) 95 (DEC 16) Cr H 6.80 (DEC 19) H 8.40 (DEC 18) H 6.30 (DEC 17) H 8.00 ( DEC 16) BUN H 67 (DEC 19) H 82 (DEC 18) H 60 (DEC 17) H 81 (DEC 16) Glucose Random H 190 (DEC 19) H 191 (DEC 18) H 169 (DEC 17) H 200 (DEC 16 ) Mg H 2.6 (DEC 19) H 2.9 (DEC 16) H 2.6 (DEC 15) H 2.8 (DEC 14 ) Phos 3.5 (DEC 19) 4.3 (DEC 16) 4.1 (DEC 15) H 5.1 (DEC 14) Ca 9.6 (DEC 19) 10.0 (DEC 18) 9.4 (DEC 17) 9.4 (DEC 16) PT H 16.2 (DEC 19) H 16.3 (DEC 18) H 15.8 (DEC 17) H 15.8 ( DEC 16) INR H 1.29 (DEC 19) H 1.30 (DEC 18) H 1.25 (DEC 17) H 1.25 ( DEC 16) PTT 33.9 (DEC 19) 31.6 (DEC 18) 33.8 (DEC 17) 34.0 (DEC 16) Troponin 0.07 (DEC 06) 0.06 (DEC 06) Discharge Information Discharge Summary Information: Admitted 12/06/2017, Discharged 12/19/2017. Admitting physician: Bj Madrid MD. Consulting physician: Rosemary Mott MD, Jeromy Isbell MD, Carlos Iqbal MD. Admitting diagnosis: Cerebrovascular accident (CVA) (HRD37-QC I63.9, Working, Medical). Discharge diagnosis: Cerebrovascular accident (CVA) (BBA68-PU I63.9, Working, Medical), Folliculitis (RNO05-FY L73.9, Working, Medical), Status post tracheostomy (MRG82-TQ Z93.0, Working, Medical), Gastrostomy tube in place (KDR72-CH Z93.1, Working, Medical), Acute respiratory failure with hypoxemia (ZSX48-ET J96.01, Working, Medical), ESRD needing dialysis (LAC88-QW N18.6, Working, Medical), Hyp ertension (FTS43-LE I10, Working, Medical), Hyperlipidemia (NVS28-QO E78.5, Working, Medical), Dysphagia (HYU95-JU R13.10, Working, Medical), Anemia of chronic disease (NPG64-VX D63.8, Working, Medical) , Diabetes mellitus, type II (STM29-CS E11.9, Working, Medical), Acute on chronic diastolic CHF (congestive heart failure) (JOU18-ZU I50.33, Working, Medical), Left hemiplegia (BHD78-TO G81.94, Working, Medical). Physical Examination VS/Measurements Vital Signs (last 24 hrs) Last Charted Heart Rate Apical 93 bpm (DEC 19 16:00) Resp Rate H 25BRMIN (DEC 19 16:00) SBP 119 mmHg (DEC 19 16:00) DBP 74 mmHg (DEC 19 16:00) SpO2 100 % (DEC 19 16:00) Height 193.04 cm (DEC 19 15:09) Hospital Course 27 year old admitted [facility] on 11/26/2017 with lyphadema/ cellulits to the left leg found to have worsening renal function. He was treated with antibiotics and lasix for decompensated hear t failure but ultimately required HD. His cellulits improved and as the patient received several days of hemodialysis his edema improved. His anti- hypertensive regimen was escalated during this time but on 12/04 the patient was noted to have worsening MS change. Neurology was consulted and on 12/05 the patient had an MRI revealing areas of acute infarction bihemipherically. He was transferred to [facility] on BiPap for worsening respiratory status and on arrival only followed commands weakly with his bilateral upper extremities. Eventually his respiratory status declined further and requiring intubation. CT A was negative for pulmonary embolism on 12/06. On 12/07 patient was started on vancomycin and zosyn for respiratory culture positive for Gram Negative Rods and Gram Positive Cocci on gram stain and compl eted the course on 12/12. On 12/08 MRA of brain and neck were unremarkable, no evidence of vasculitis. A lumbar puncture to rule out infectious/rare causes of stroke-no signs of inflammation on 12/10/17 wa s performed, CSF studies unremarkable. On 12/11 ANT to rule out endocarditis, no PFO or vegetations, no embolic source, normal EF, test was negative/ unremarkable. On 12/13, patient was stepped down to shalom ro floor. On 12/14, patient received transfusion of 1 packed RBC, with mild subsequent fever. No leukocytosis or other sources of infections. No change in neurologic baseline. On 12/16, patient had persis tent mild bleeding a trach collar side. INR 1.25. FFP 1 ordered. General surgery consultation for trach collar evaluation, holding heparin for 48 hours. On 12/17, patient placed back on AC/VC vent supp ort. Case discussed with neuro ICU attending. Patient to stay on neuro floor on vent support. Will most likely need vent support at LTAC. Minimal bleeding persist trach collar site, INR 1.25. FFP 1, d esmopressin 1. Continue dressing changes. General surgery following. Plan regarding hemodialysis is daily sessions with 3-4L removal Saturday and Saturday. In terms of ventilator weaning, he becomes tachypneic on CPAP so he has been on ACVC alternating with CPAP trials during the day as tolerated. Discharge Plan Discharge Summary Plan Discharge Status: improved. Discharge instructions given: to family member Transport personnel, written discharge instructions (activity level, diet, follow-up appointment, medications , symptoms worsening, weight monitoring). Discharge disposition: [facility]. Prescriptions: written and given to patient. Addendum by Reno Aranda MD on Patient seen and examined by me. Note prepared by Dr. Gates in my presence. 12/19/2017 21:47 greater than 35minutes spent on discharge Extracted from: Title: Nephrology PN Author: Lucas Rosenberg MD Date: 12/13/17 error Extracted from: Title: Procedure Note Author: Carlos Iqbal MD Date: 12/12/17 1. Normal esophagus. 2. Normal stomach. 3. 20Fr pull PEG placed in sterile manner. 4. Normal duodenum. Plan 1. Ok to start using PEG in 4 hours for medication, water and nutrition. 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 -sedation with propofol and fent prn Cardiac -HR 100s SBP 164-185 -cardiac enzymes neg x1 -EKG to be repeated -Echo pending -BP goals < 185 -atorvastatin 80mg qhs -Tele -lipid profile, LDL 52 -restart clonidine at 0.1mg q8 hours -cont nicardipine gtt -hold minoxidil, amlodipine, hydralazine, spironolactone, isosorbide -consult cardiology for ANT Resp -spo2 100% RR 30-50 -on BiPAP since 12/04 with resp rate in the 30s -ABG 7.44/38/185 intubated for resp failure and airway protection -[facility] vent: 14/500/10/60% -CXR: enlarged cardiac siloutte, bilateral pulm edema/congestion -daily SBT -CTA chest to eval for PE GI -NPO for now -Place NG tube -Bowel regimen: docusate -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 -pantoprazole q24 hours Renal -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 I personally spent minutes examining, assessing, reviewing labs and images, and administering treatment
--- OUTSIDE RECORDS SUMMARY | 2018-07-13 20:54 | XMS REPORT ---
:1990 [facility] Address [address] [place] [address] Dr. Gale [address] [place] [address] Care Team Providers Name Role Phone ANNE CASTILLO Unavailable Unavailable DR EDUARDO SHELTON Unavailable Unavailable Problems This patient has no known problems. Allergies, Adverse Reactions, Alerts This patient has no known allergies or adverse reactions. Medications This patient has no known medications. Encounters Start End Encounter Admission Attending Care Care Encounter Date/Time Date/Time Type Type Clinicians Facility Department ID 2018-01-28 2018-01-28 Out[place] C EDUARD[place] [facility] [id number] 07:49:00 23:59:00 Results Test Description Test Time Test Comments Text Results Atomic Results Result Comments ANAEROBIC CULTURE 2018-02-05 10:36:00 Test Item Value Reference Range Comments CULTURE (BEAKER) (test lfgt=8038) No anaerobes isolated POCT-GLUCOSE [id number] 18:17:00 Test Item Value Reference Range Comments POC-GLUCOSE METER (BEAKER) 129 mg/dL 70-110 TESTED AT [facility] [address] [place] [address] (test lerc=0646) [facility] [facility] [address] BASIC METABOLIC [id number] 14:45:00 Test Item Value Reference Range Comments SODIUM (BEAKER) (test 138 meq/L 135-148 lews=151) POTASSIUM (BEAKER) (test 4.6 meq/L 3.6-5.5 pdkw=279) CHLORIDE (BEAKER) (test 97 meq/L 98-106 qvtj=532) CO2 (BEAKER) (test 19 meq/L 20-29 qgvv=583) BLOOD UREA NITROGEN 27 mg/dL 10-26 (BEAKER) (test jzjs=700) CREATININE (BEAKER) (test 7.19 mg/dL 0.50-1.20 iujm=550) GLUCOSE RANDOM (BEAKER) 97 mg/dL 70-110 (test hbui=612) CALCIUM (BEAKER) (test 9.8 mg/dL 8.5-10.5 wfkg=969) EGFR (BEAKER) (test 11 mL/min/1.73 sq m ESTIMATED GFR IS NOT ozth=9414) ACCURATE CREATININE CLEARANCE IN PREDICTING GLOMERULAR FILTRATION RATE. ESTIMATED GFR IS NOT APPLICABLE FOR DIALYSIS PATIENTS. CBC W/PLT COUNT & AUTO [id number] 14:35:00 Test Item Value Reference Range Comments WHITE BLOOD CELL COUNT (BEAKER) (test sleg=731) 7.8 K/ L 4.0-10.0 RED BLOOD CELL COUNT (BEAKER) (test xkxm=245) 3.06 M/ L 4.20-5.80 HEMOGLOBIN (BEAKER) (test xdfh=960) 8.7 GM/DL 13.0-16.8 HEMATOCRIT (BEAKER) (test ytof=289) 26.1 % 40.0-50.0 MEAN CORPUSCULAR VOLUME (BEAKER) (test mlkb=543) 85.5 fL 82.0-98.0 MEAN CORPUSCULAR HEMOGLOBIN (BEAKER) (test 28.4 pg 27.0-33.0 ynht=494) MEAN CORPUSCULAR HEMOGLOBIN CONC (BEAKER) (test 33.2 GM/DL 32.0-36.0 ioso=748) RED CELL DISTRIBUTION WIDTH (BEAKER) (test 19.5 % 10.3-14.2 oass=422) PLATELET COUNT (BEAKER) (test avka=727) 264 K/CU MM 150-430 MEAN PLATELET VOLUME (BEAKER) (test swlg=084) 7.4 fL 6.5-10.5 NEUTROPHILS RELATIVE PERCENT (BEAKER) (test 52 % yrxd=591) LYMPHOCYTES RELATIVE PERCENT (BEAKER) (test 29 % ehzd=325) MONOCYTES RELATIVE PERCENT (BEAKER) (test 14 % hchr=068) EOSINOPHILS RELATIVE PERCENT (BEAKER) (test 5 % szkh=689) BASOPHILS RELATIVE PERCENT (BEAKER) (test 1 % hcta=583) NEUTROPHILS ABSOLUTE COUNT (BEAKER) (test 4.20 K/ L 1.80-8.00 ydln=012) LYMPHOCYTES ABSOLUTE COUNT (BEAKER) (test 2.20 K/ L 1.48-4.50 wwmj=438) MONOCYTES ABSOLUTE COUNT (BEAKER) (test 1.10 K/ L 0.00-1.30 kutu=603) EOSINOPHILS ABSOLUTE COUNT (BEAKER) (test 0.30 K/ L 0.00-0.50 tixl=306) BASOPHILS ABSOLUTE COUNT (BEAKER) (test 0.00 K/ L 0.00-0.20 gbbs=247) POCT-GLUCOSE [id number] 11:29:00 Test Item Value Reference Range Comments POC-GLUCOSE METER (BEAKER) 189 mg/dL 70-110 TESTED AT [address] (test szyj=3384) [facility] [address] POCT-GLUCOSE [id number] 05:51:00 Test Item Value Reference Range Comments POC-GLUCOSE METER (BEAKER) 117 mg/dL 70-110 TESTED AT [address] (test dous=8407) [facility] [address] POCT-GLUCOSE [id number] 21:42:00 Test Item Value Reference Range Comments POC-GLUCOSE METER (BEAKER) 120 mg/dL 70-110 TESTED AT [address] (test mtwf=1214) [facility] [address] POCT-GLUCOSE [id number] 20:08:00 Test Item Value Reference Range Comments POC-GLUCOSE METER (BEAKER) 128 mg/dL 70-110 TESTED AT [address] (test ogia=0638) [facility] [address] [id number] 17:01:00 Test Item Value Reference Range Comments PHOSPHORUS (BEAKER) (test cyvf=216) 6.9 mg/dL 2.5-4.5 POCT-GLUCOSE [id number] 12:06:00 Test Item Value Reference Range Comments POC-GLUCOSE METER (BEAKER) 122 mg/dL 70-110 TESTED AT [address] (test ijoo=3166) [facility] [address] TISSUE [id number] 09:54:00Surgical Pathology Report Case: [id number] Authorizing Provider: Lisa Greenberg MD Collected: 01/31/2018 1110 Ordering Location: [facility] Med Surg 5th Floor Received: 01/31/2018 1249 Pathologist: Sherri Zarate MD Specimen: Leg, Left Lower, NECROTIC TISSUE LEFT LOWER LEG SKIN AND SOFT TISSUE, LEFT LOWER LEG, EXCISION: - SKIN AND SUBCUTIS WITH NECROSIS, ACUTE AND CHRONIC INFLAMMATION, BACTERIAL COLONIZATION AND CALCIFICATION OF BLOOD VESSELS, CONSISTENT WITH CALCIPHYLAXIS (SEE COMMENT) Signing Pathologist Direct Phone Line: [phone] signed by Sherri Zarate MD on 02/03/2018 at 9:54 AMCalcification of small and medium sized blood vessels are identified along with extensive necrosis of tissue. 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 [id number] givenLeg, left lower, necrotic tissue left lower legThe specimen is received in fixative and designated as "leg, left lower" and consists of skin and subcutaneous tissue ( 6.0 x 4.0 x 2.0 cm). The overlying skin is brown-patterson and smooth. No discrete lesions. The underlying soft tissue is soft and necrotic. Pin Worker sectionsof the skin and soft tissue are submitted into A1 to A3. MG/pl Performed [facility], Department of Pathology, [address] [place] [address], YcpproRc. [facility], Department of Pathology, [address] [place] [address], Tel . [facility], Department of Pathology, [address] [place] [address], QQF W/PLT COUNT & AUTO [id number] 09:08:00 Test Item Value Reference Range Comments WHITE BLOOD CELL COUNT (BEAKER) (test jtoc=652) 6.8 K/ L 4.0-10.0 RED BLOOD CELL COUNT (BEAKER) (test dxok=712) 2.19 M/ L 4.20-5.80 HEMOGLOBIN (BEAKER) (test csij=168) 6.2 GM/DL 13.0-16.8 HEMATOCRIT (BEAKER) (test rrcp=131) 18.8 % 40.0-50.0 MEAN CORPUSCULAR VOLUME (BEAKER) (test wnvk=559) 85.9 fL 82.0-98.0 MEAN CORPUSCULAR HEMOGLOBIN (BEAKER) (test 28.4 pg 27.0-33.0 mktu=309) MEAN CORPUSCULAR HEMOGLOBIN CONC (BEAKER) (test 33.1 GM/DL 32.0-36.0 jtta=759) RED CELL DISTRIBUTION WIDTH (BEAKER) (test 22.6 % 10.3-14.2 qvxb=780) PLATELET COUNT (BEAKER) (test slcv=563) 198 K/CU MM 150-430 MEAN PLATELET VOLUME (BEAKER) (test hjoz=662) 7.1 fL 6.5-10.5 NUCLEATED RED BLOOD CELLS (BEAKER) (test 0 /100 WBC 0-0 vwwi=415) NEUTROPHILS RELATIVE PERCENT (BEAKER) (test 63 % eehd=871) LYMPHOCYTES RELATIVE PERCENT (BEAKER) (test 19 % lpsf=943) MONOCYTES RELATIVE PERCENT (BEAKER) (test 13 % xpzl=985) EOSINOPHILS RELATIVE PERCENT (BEAKER) (test 5 % otiv=973) BASOPHILS RELATIVE PERCENT (BEAKER) (test 1 % cclp=288) NEUTROPHILS ABSOLUTE COUNT (BEAKER) (test 4.30 K/ L 1.80-8.00 jwlz=797) LYMPHOCYTES ABSOLUTE COUNT (BEAKER) (test 1.30 K/ L 1.48-4.50 dcfj=325) MONOCYTES ABSOLUTE COUNT (BEAKER) (test 0.90 K/ L 0.00-1.30 syon=133) EOSINOPHILS ABSOLUTE COUNT (BEAKER) (test 0.30 K/ L 0.00-0.50 czlx=917) BASOPHILS ABSOLUTE COUNT (BEAKER) (test 0.00 K/ L 0.00-0.20 bimy=185) (MANUAL DIFFERENTIAL)2018-02-03 09:08:00 Test Item Value Reference Range Comments TOTAL COUNTED (BEAKER) (test qmny=0306) WBC MORPHOLOGY (BEAKER) (test jgdx=541) Normal PLT MORPHOLOGY (BEAKER) (test ewhf=402) Normal ANISOCYTOSIS (BEAKER) (test ykhh=882) 1+ few BASIC METABOLIC [id number] 08:39:00 Test Item Value Reference Range Comments SODIUM (BEAKER) (test 131 meq/L 135-148 thqg=298) POTASSIUM (BEAKER) (test 5.0 meq/L 3.6-5.5 muyi=437) CHLORIDE (BEAKER) (test 97 meq/L 98-106 tgqa=960) CO2 (BEAKER) (test 25 meq/L 20-29 rtwg=807) BLOOD UREA NITROGEN 41 mg/dL 10-26 (BEAKER) (test vnyt=424) CREATININE (BEAKER) (test 9.74 mg/dL 0.50-1.20 cbpo=090) GLUCOSE RANDOM (BEAKER) 88 mg/dL 70-110 (test ipjd=765) CALCIUM (BEAKER) (test 8.7 mg/dL 8.5-10.5 tdsb=698) EGFR (BEAKER) (test 8 mL/min/1.73 sq m ESTIMATED GFR IS NOT qwzp=8053) ACCURATE CREATININE CLEARANCE IN PREDICTING GLOMERULAR FILTRATION RATE. ESTIMATED GFR IS NOT APPLICABLE FOR DIALYSIS PATIENTS. HEMOGLOBIN AND [id number] 08:25:00 Test Item Value Reference Range Comments HEMOGLOBIN (BEAKER) (test ggyj=456) 6.5 GM/DL 13.0-16.8 HEMATOCRIT (BEAKER) (test ijhm=724) 19.0 % 40.0-50.0 POCT-GLUCOSE [id number] 21:42:00 Test Item Value Reference Range Comments POC-GLUCOSE METER (BEAKER) 121 mg/dL 70-110 TESTED AT [address] (test iuxp=8950) [facility] [address] POCT-GLUCOSE [id number] 16:40:00 Test Item Value Reference Range Comments POC-GLUCOSE METER (BEAKER) 134 mg/dL 70-110 TESTED AT [address] (test feks=2905) [facility] [address] POCT-GLUCOSE [id number] 12:00:00 Test Item Value Reference Range Comments POC-GLUCOSE METER (BEAKER) 84 mg/dL 70-110 TESTED AT [address] (test nszr=2843) [facility] [address] SURGICALLY OBTAINED CULTURE + GRAM [id number] 08:12:00 Test Item Value Reference Range Comments CULTURE ([facility]) (test METHICILLIN RESISTANT 2+ Methicillin jzui=2580) STAPHYLOCOCCUS AUREUS resistant Staphylococcus aureus Ciprofloxacin (test code=7) Clindamycin (test code=10) Daptomycin (test code=59) Erythromycin (test code=4) Gentamicin (test code=18) Levofloxacin (test code=22) Linezolid (test code=40) Moxifloxacin (test code=36) Nitrofurantoin (test code=23) Oxacillin (test code=14) Rifampin (test code=43) Tetracycline (test code=2) Tigecycline (test qifr=808) Trimethoprim + Sulfamethoxazole (test code=47) Vancomycin (test code=13) GRAM STAIN RESULT 4+ WBCs (BEAKER) (test mdzy=3844) GRAM STAIN RESULT 1+ gram positive cocci (BEAKER) (test in clusters ahao=814558) CBC W/PLT COUNT & AUTO [id number] 06:19:00 Test Item Value Reference Range Comments WHITE BLOOD CELL COUNT (BEAKER) (test noog=657) 7.9 K/ L 4.0-10.0 RED BLOOD CELL COUNT (BEAKER) (test acha=842) 2.16 M/ L 4.20-5.80 HEMOGLOBIN (BEAKER) (test xhhh=029) 6.2 GM/DL 13.0-16.8 HEMATOCRIT (BEAKER) (test sdnb=939) 18.9 % 40.0-50.0 MEAN CORPUSCULAR VOLUME (BEAKER) (test qrvb=375) 87.2 fL 82.0-98.0 MEAN CORPUSCULAR HEMOGLOBIN (BEAKER) (test 28.7 pg 27.0-33.0 duny=513) MEAN CORPUSCULAR HEMOGLOBIN CONC (BEAKER) (test 32.9 GM/DL 32.0-36.0 ipwb=944) RED CELL DISTRIBUTION WIDTH (BEAKER) (test 23.4 % 10.3-14.2 rmol=119) PLATELET COUNT (BEAKER) (test yqhg=397) 203 K/CU MM 150-430 MEAN PLATELET VOLUME (BEAKER) (test azwf=708) 7.2 fL 6.5-10.5 NUCLEATED RED BLOOD CELLS (BEAKER) (test 0 /100 WBC 0-0 bbet=695) NEUTROPHILS RELATIVE PERCENT (BEAKER) (test 64 % tuol=791) LYMPHOCYTES RELATIVE PERCENT (BEAKER) (test 18 % pvjk=628) MONOCYTES RELATIVE PERCENT (BEAKER) (test 14 % licm=024) EOSINOPHILS RELATIVE PERCENT (BEAKER) (test 4 % vgco=611) BASOPHILS RELATIVE PERCENT (BEAKER) (test 1 % nmif=833) NEUTROPHILS ABSOLUTE COUNT (BEAKER) (test 5.00 K/ L 1.80-8.00 wccl=378) LYMPHOCYTES ABSOLUTE COUNT (BEAKER) (test 1.40 K/ L 1.48-4.50 htsb=700) MONOCYTES ABSOLUTE COUNT (BEAKER) (test 1.10 K/ L 0.00-1.30 fpyh=069) EOSINOPHILS ABSOLUTE COUNT (BEAKER) (test 0.30 K/ L 0.00-0.50 juxx=991) BASOPHILS ABSOLUTE COUNT (BEAKER) (test 0.00 K/ L 0.00-0.20 wjrg=132) POCT-GLUCOSE [id number] 06:01:00 Test Item Value Reference Range Comments POC-GLUCOSE METER (BEAKER) 122 mg/dL 70-110 TESTED AT [address] (test upmo=4854) [facility] [address] POCT-GLUCOSE [id number] 21:23:00 Test Item Value Reference Range Comments POC-GLUCOSE METER (BEAKER) 178 mg/dL 70-110 TESTED AT [address] (test nbua=1300) [facility] [address] POCT-GLUCOSE [id number] 16:29:00 Test Item Value Reference Range Comments POC-GLUCOSE METER (BEAKER) 165 mg/dL 70-110 TESTED AT [address] (test mfal=8150) [facility] [address] POCT-GLUCOSE [id number] 11:59:00 Test Item Value Reference Range Comments POC-GLUCOSE METER (BEAKER) 131 mg/dL 70-110 TESTED AT [address] (test dvbs=5379) [facility] [address] POCT-GLUCOSE [id number] 05:22:00 Test Item Value Reference Range Comments POC-GLUCOSE METER (BEAKER) 104 mg/dL 70-110 TESTED AT [address] (test svhj=9088) [facility] [address] POCT-GLUCOSE [id number] 22:48:00 Test Item Value Reference Range Comments POC-GLUCOSE METER (BEAKER) 122 mg/dL 70-110 TESTED AT [address] (test ierf=7219) [facility] [address] HEPATITIS B SURFACE [id number] 20:44:00 Test Item Value Reference Range Comments HEPATITIS B SURFACE ANTIBODY (BEAKER) (test 10.2 mIU/mL <8.0 upsc=876) POCT-GLUCOSE [id number] 18:00:00 Test Item Value Reference Range Comments POC-GLUCOSE METER (BEAKER) 127 mg/dL 70-110 TESTED AT [facility] [address] (test umbp=4675) [address] [facility] [address] BASIC METABOLIC [id number] 11:02:00 Test Item Value Reference Range Comments SODIUM (BEAKER) (test 137 meq/L 135-148 gzul=068) POTASSIUM (BEAKER) (test 3.5 meq/L 3.6-5.5 ucge=089) CHLORIDE (BEAKER) (test 98 meq/L 98-106 lxmx=034) CO2 (BEAKER) (test 27 meq/L 20-29 shfx=778) BLOOD UREA NITROGEN 11 mg/dL 10-26 (BEAKER) (test pemb=307) CREATININE (BEAKER) (test 3.99 mg/dL 0.50-1.20 coiu=024) GLUCOSE RANDOM (BEAKER) 84 mg/dL 70-110 (test breq=349) CALCIUM (BEAKER) (test 9.6 mg/dL 8.5-10.5 eavi=713) EGFR (BEAKER) (test 22 mL/min/1.73 sq m ESTIMATED GFR IS NOT hben=7856) ACCURATE CREATININE CLEARANCE IN PREDICTING GLOMERULAR FILTRATION RATE. ESTIMATED GFR IS NOT APPLICABLE FOR DIALYSIS PATIENTS. CBC W/PLT COUNT & AUTO [id number] 10:36:00 Test Item Value Reference Range Comments WHITE BLOOD CELL COUNT (BEAKER) (test fycp=969) 6.7 K/ L 4.0-10.0 RED BLOOD CELL COUNT (BEAKER) (test zylk=046) 2.89 M/ L 4.20-5.80 HEMOGLOBIN (BEAKER) (test hytx=834) 8.2 GM/DL 13.0-16.8 HEMATOCRIT (BEAKER) (test ufgn=774) 24.9 % 40.0-50.0 MEAN CORPUSCULAR VOLUME (BEAKER) (test xgrm=753) 86.1 fL 82.0-98.0 MEAN CORPUSCULAR HEMOGLOBIN (BEAKER) (test 28.3 pg 27.0-33.0 wazo=620) MEAN CORPUSCULAR HEMOGLOBIN CONC (BEAKER) (test 32.9 GM/DL 32.0-36.0 emhz=138) RED CELL DISTRIBUTION WIDTH (BEAKER) (test 24.6 % 10.3-14.2 fkvx=139) PLATELET COUNT (BEAKER) (test jnwp=187) 234 K/CU MM 150-430 MEAN PLATELET VOLUME (BEAKER) (test wcam=656) 7.3 fL 6.5-10.5 NUCLEATED RED BLOOD CELLS (BEAKER) (test 0 /100 WBC 0-0 guui=666) NEUTROPHILS RELATIVE PERCENT (BEAKER) (test 64 % skuu=884) LYMPHOCYTES RELATIVE PERCENT (BEAKER) (test 20 % ftol=690) MONOCYTES RELATIVE PERCENT (BEAKER) (test 11 % kinf=151) EOSINOPHILS RELATIVE PERCENT (BEAKER) (test 4 % smmx=117) BASOPHILS RELATIVE PERCENT (BEAKER) (test 1 % zrfq=919) NEUTROPHILS ABSOLUTE COUNT (BEAKER) (test 4.30 K/ L 1.80-8.00 xzug=043) LYMPHOCYTES ABSOLUTE COUNT (BEAKER) (test 1.30 K/ L 1.48-4.50 pfod=795) MONOCYTES ABSOLUTE COUNT (BEAKER) (test 0.80 K/ L 0.00-1.30 tmmv=392) EOSINOPHILS ABSOLUTE COUNT (BEAKER) (test 0.30 K/ L 0.00-0.50 pczi=635) BASOPHILS ABSOLUTE COUNT (BEAKER) (test 0.00 K/ L 0.00-0.20 pbkk=454) (MANUAL DIFFERENTIAL)2018-01-31 10:36:00 Test Item Value Reference Range Comments TOTAL COUNTED (BEAKER) (test wsch=2528) WBC MORPHOLOGY (BEAKER) (test ebui=690) Normal PLT MORPHOLOGY (BEAKER) (test vrff=459) Normal ANISOCYTOSIS (BEAKER) (test mnxb=681) 1+ few MICROCYTES (BEAKER) (test ysyv=812) 1+ few POIKILOCYTES (BEAKER) (test zxei=596) 1+ few HEPATITIS B SURFACE [id number] 07:50:00 Test Item Value Reference Range Comments HEPATITIS B SURFACE ANTIGEN (2) (BEAKER) (test Nonreactive Nonreactive dewh=7969) BASIC METABOLIC [id number] 07:45:00 Test Item Value Reference Range Comments SODIUM (BEAKER) (test 133 meq/L 135-148 pmld=852) POTASSIUM (BEAKER) (test 4.4 meq/L 3.6-5.5 yifb=036) CHLORIDE (BEAKER) (test 97 meq/L 98-106 ktim=326) CO2 (BEAKER) (test 25 meq/L 20-29 vmps=239) BLOOD UREA NITROGEN 25 mg/dL 10-26 (BEAKER) (test gety=315) CREATININE (BEAKER) (test 7.52 mg/dL 0.50-1.20 dhzn=075) GLUCOSE RANDOM (BEAKER) 89 mg/dL 70-110 (test tnxv=526) CALCIUM (BEAKER) (test 9.8 mg/dL 8.5-10.5 tkqt=384) EGFR (BEAKER) (test 10 mL/min/1.73 sq m ESTIMATED GFR IS NOT fdjx=5369) ACCURATE CREATININE CLEARANCE IN PREDICTING GLOMERULAR FILTRATION RATE. ESTIMATED GFR IS NOT APPLICABLE FOR DIALYSIS PATIENTS. POCT-GLUCOSE [id number] 06:32:00 Test Item Value Reference Range Comments POC-GLUCOSE METER (BEAKER) 82 mg/dL 70-110 TESTED AT [address] (test dopy=1064) [facility] [address] POCT-GLUCOSE [id number] 17:47:00 Test Item Value Reference Range Comments POC-GLUCOSE METER (BEAKER) 106 mg/dL 70-110 TESTED AT [address] (test hlqa=3050) [facility] [address] CBC W/PLT COUNT & AUTO [id number] 16:41:00 Test Item Value Reference Range Comments WHITE BLOOD CELL COUNT (BEAKER) (test clxr=625) 8.0 K/ L 4.0-10.0 RED BLOOD CELL COUNT (BEAKER) (test exun=095) 3.02 M/ L 4.20-5.80 HEMOGLOBIN (BEAKER) (test cuic=261) 8.5 GM/DL 13.0-16.8 HEMATOCRIT (BEAKER) (test zydi=591) 25.9 % 40.0-50.0 MEAN CORPUSCULAR VOLUME (BEAKER) (test ayhn=763) 85.7 fL 82.0-98.0 MEAN CORPUSCULAR HEMOGLOBIN (BEAKER) (test 28.3 pg 27.0-33.0 uzna=861) MEAN CORPUSCULAR HEMOGLOBIN CONC (BEAKER) (test 33.0 GM/DL 32.0-36.0 lhve=177) RED CELL DISTRIBUTION WIDTH (BEAKER) (test 24.9 % 10.3-14.2 skzt=399) PLATELET COUNT (BEAKER) (test krrd=361) 272 K/CU MM 150-430 MEAN PLATELET VOLUME (BEAKER) (test mvqt=215) 6.7 fL 6.5-10.5 NUCLEATED RED BLOOD CELLS (BEAKER) (test 0 /100 WBC 0-0 efwu=482) NEUTROPHILS RELATIVE PERCENT (BEAKER) (test 65 % kqaq=253) LYMPHOCYTES RELATIVE PERCENT (BEAKER) (test 19 % fnie=708) MONOCYTES RELATIVE PERCENT (BEAKER) (test 12 % zhcy=560) EOSINOPHILS RELATIVE PERCENT (BEAKER) (test 3 % xnof=201) BASOPHILS RELATIVE PERCENT (BEAKER) (test 1 % ksvu=354) NEUTROPHILS ABSOLUTE COUNT (BEAKER) (test 5.20 K/ L 1.80-8.00 inzn=225) LYMPHOCYTES ABSOLUTE COUNT (BEAKER) (test 1.50 K/ L 1.48-4.50 pffp=449) MONOCYTES ABSOLUTE COUNT (BEAKER) (test 1.00 K/ L 0.00-1.30 erpv=677) EOSINOPHILS ABSOLUTE COUNT (BEAKER) (test 0.20 K/ L 0.00-0.50 atuv=272) BASOPHILS ABSOLUTE COUNT (BEAKER) (test 0.00 K/ L 0.00-0.20 bnae=644) (MANUAL DIFFERENTIAL)2018-01-30 16:41:00 Test Item Value Reference Range Comments TOTAL COUNTED (BEAKER) (test cdoj=6245) WBC MORPHOLOGY (BEAKER) (test ijam=047) Normal PLT MORPHOLOGY (BEAKER) (test fqpw=256) Normal ANISOCYTOSIS (BEAKER) (test auzw=536) 2+ moderate HYPOCHROMIA (BEAKER) (test oxrs=557) 2+ moderate BASIC METABOLIC [id number] 16:21:00 Test Item Value Reference Range Comments SODIUM (BEAKER) (test 133 meq/L 135-148 iqie=912) POTASSIUM (BEAKER) (test 4.5 meq/L 3.6-5.5 cpsx=865) CHLORIDE (BEAKER) (test 96 meq/L 98-106 xvdl=692) CO2 (BEAKER) (test 26 meq/L 20-29 mqrv=771) BLOOD UREA NITROGEN 21 mg/dL 10-26 (BEAKER) (test jjju=983) CREATININE (BEAKER) (test 6.41 mg/dL 0.50-1.20 mlem=419) GLUCOSE RANDOM (BEAKER) 93 mg/dL 70-110 (test xcsi=755) CALCIUM (BEAKER) (test 10.0 mg/dL 8.5-10.5 wnys=264) EGFR (BEAKER) (test 13 mL/min/1.73 sq m ESTIMATED GFR IS NOT omfr=5079) ACCURATE CREATININE CLEARANCE IN PREDICTING GLOMERULAR FILTRATION RATE. ESTIMATED GFR IS NOT APPLICABLE FOR DIALYSIS PATIENTS. PROTHROMBIN TIME/[id number] 16:17:00 Test Item Value Reference Range Comments PROTIME (BEAKER) (test xojl=020) 11.2 seconds 9.3-12.0 INR (BEAKER) (test xwiw=502) 1.0 <=5.9 RECOMMENDED COUMADIN/WARFARIN INR THERAPY RANGESSTANDARD DOSE: 2.0 - 3.0 Includes: PROPHYLAXIS forvenous thrombosis, systemic embolization; TREATMENT for venous thrombosis and/or pulmonary embolus.HIGH RISK: Target INR is 2.5-3.5 for patients with mechanical heart valves.
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
[2018-07-13 22:01] VITALS: BP 153/99; TEMP 97.5; O2SAT 100
== END 2018-07-13 21:39 | disposition home or self-care (01) ==
LOC: ER 20:47
DX: Z04.1 Encounter for examination and observation following transport accident (principal); Z00.00 Encounter for general adult medical examination without abnormal findings; E11.9 Type 2 diabetes mellitus without complications; E03.9 Hypothyroidism, unspecified; N18.6 End stage renal disease; Z99.2 Dependence on renal dialysis
CPT/HCPCS: 99284

== ENCOUNTER 2018-09-26 19:23 | Emergency (ER) | payer OTHER ==
--- OUTSIDE RECORDS SUMMARY | 2018-09-26 19:26 | XMS REPORT | Clinical Summary ---
:1990 Author Organization [facility] Address [address] [place] [address] Care Team Providers Name Role Phone Omar Primary Care Provider Allergies No Known Allergies Medications Medication Sig Dispensed Refills Start End Date Status Date atorvastatin Take 80 mg by mouth 0 Active (LIPITOR) 80 MG daily. tablet cloNIDine HCl Take 0.1 mg by 0 Active (CATAPRES) 0.1 MG mouth 2 (two) times tablet daily . famotidine Take 20 mg by mouth 0 Active (PEPCID) 20 MG 2 (two) times [...] week after dialysis. darbepoetin Inject 60 mcg 0 Active ephraim-polysorbate subcutaneously (ARANESP) 60 once. mcg/0.3 mL Syrg injection senna-docusate Take 2 tablets by 0 Active (SENOKOT S) 8.6-50 mouth nightly. mg per tablet HEPARIN SOD,PORK Inject 0 Active IN 0.45% NACL intravenously. (HEPARIN,PORCINE, IN 0.45% NACL) 5,000 unit/1,000 mL SolP INSULIN ASPART Inject 0 Active PROT/INSULN ASP subcutaneously. (INSULIN ASP PRT-INSULIN ASPART SUBQ) LORazepam (ATIVAN) Take 1 mg by mouth 0 Active 1 MG tablet every 6 (six) hours as needed for Anxiety. losartan (COZAAR) Take 25 mg by mouth 0 Active 25 MG tablet daily. multivitamin per Take 1 tablet by 0 Active tablet mouth daily. ondansetron Take 4 mg by mouth 0 Active (ZOFRAN) 4 MG as needed for tablet Nausea. sevelamer Take 800 mg by 0 Active (RENVELA) 800 mg mouth 3 (three) tablet times daily with meals. thiamine (VITAMIN Take 50 mg by mouth 0 Active B-1) 50 MG tablet daily. acetaminophen-code Take 1 tablet by 0 Active ine (TYLENOL #3) mouth every 4 300-30 mg per (four) hours as tablet needed for Pain. aspirin 325 MG Take 325 mg by 0 02/05/20 Discontinued tablet mouth daily. 18 amLODIPine Take 1 tablet (5 mg 30 tablet 0 03/07/20 (NORVASC) 5 MG total) by mouth 8 18 tablet daily for 30 days. Active Problems Problem Noted Date Abscess of leg without foot, left 02/04/2018 Abscess of leg, left 02/03/2018 Encounters Date Type Specialty Care Team Description 05/15/2018 Office Visit General Surgery Lisa Greenberg, Leg wound, left, subsequent encounter (Primary Dx) 04/14/2018 Telephone General Surgery Lisa Greenberg, HomeHealth Order MD (Wet to dry order for Inner Calf wound) 02/18/2018 Office Visit General Surgery Lisa Greenberg, Status post surgery MD (Primary Dx) 01/31/2018 Surgery Lisa Greenberg, DEBRIDEMENT/I&D,GULSHAN MESSER D EXTREMITY LOWER 01/31/2018 Anesthesia Event Keith Rosales AA 01/30/2018 - Hospital Encounter General Internal Madhuri, 02/04/2018 Medicine MD Sarah after 09/25/2017 Social History Tobacco Use Types Packs/Day Years Used Date Never Smoker Smokeless Tobacco: Never Used Alcohol Use Drinks/Week oz/Week Comments No Sex Assigned at Date Recorded Not on file Job Start Date Occupation Industry Not on file Not on file Not on file Travel History Travel Start Travel End No recent travel history available. Last Filed Vital Signs Vital Sign Reading Time Taken Blood Pressure 103/79 05/15/2018 4:39 PM CDT Pulse 132 02/18/2018 10:53 AM CDT Temperature 36.9 C (98.4 F) 05/15/2018 4:39 PM CDT Respiratory Rate 18 02/04/2018 3:00 PM CDT Oxygen Saturation 96% 02/04/2018 3:00 PM CDT Inhaled Oxygen Concentration 21% 02/04/2018 10:03 AM CDT Weight 115.5 kg (254 lb 9.6 oz) 05/15/2018 4:39 PM CDT Height 193 cm (6' 4") 05/15/2018 4:39 PM CDT Body Mass Index 30.99 05/15/2018 4:39 PM CDT Plan of Treatment Health Maintenance Due Date Last Done Comments INFLUENZA VACCINE 06/23/2018 Procedures Procedure Name Priority Date/Time Associated Comments Diagnosis TRANSFUSION SERVICE 02/05/2018 5:50 REPORT - SCAN PM CDT REPORT OF PROCEDURE - 02/05/2018 3:24 ENDOSCOPY SCAN PM CDT PREPARE RBC Routine 02/04/2018 11:54 Results for this PM CDT procedure are in the results section. PREPARE LEUKO-REDUCED Routine 02/04/2018 11:54 Results for this RBC PM CDT procedure are in the results section. POCT-GLUCOSE METER Routine 02/04/2018 6:15 Results for this PM CDT procedure are in the results section. TRANSFUSION SERVICE 02/04/2018 5:43 REPORT - SCAN PM CDT CBC W/PLT COUNT & Routine 02/04/2018 2:07 Results for this AUTO DIFFERENTIAL PM CDT procedure are in the results section. BASIC METABOLIC PANEL Routine 02/04/2018 2:07 Results for this (7) PM CDT procedure are in the results section. CBC W/PLT COUNT & Routine 02/04/2018 2:07 Results for this AUTO DIFFERENTIAL PM CDT procedure are in the results section. POCT-GLUCOSE METER Routine 02/04/2018 11:07 Results for this AM CDT procedure are in the results section. POCT-GLUCOSE METER Routine 02/04/2018 5:41 Results for this AM CDT procedure are in the results section. PREPARE LEUKO-REDUCED Routine 02/03/2018 11:54 Results for this RBC PM CDT procedure are in the results section. POCT-GLUCOSE METER Routine 02/03/2018 9:31 Results for this PM CDT procedure are in the results section. TRANSFUSION SERVICE 02/03/2018 5:30 REPORT - SCAN PM CDT POCT-GLUCOSE METER Routine 02/03/2018 5:11 Results for this PM CDT procedure are in the results section. PHOSPHORUS Routine 02/03/2018 4:48 Results for this PM CDT procedure are in the results section. POCT-GLUCOSE METER Routine 02/03/2018 12:02 Results for this PM CDT procedure are in the results section. HEMOGLOBIN AND Routine 02/03/2018 8:06 Results for this HEMATOCRIT AM CDT procedure are in the results section. (MANUAL DIFFERENTIAL) Routine 02/03/2018 7:27 Results for this AM CDT procedure are in the results section. CBC W/PLT COUNT & Routine 02/03/2018 7:27 Results for this AUTO DIFFERENTIAL AM CDT procedure are in the results section. BASIC METABOLIC PANEL Routine 02/03/2018 7:27 Results for this (7) AM CDT procedure are in the results section. CBC W/PLT COUNT & Routine 02/03/2018 7:27 Results for this AUTO DIFFERENTIAL AM CDT procedure are in the results section. HEMODIALYSIS Routine 02/03/2018 12:31 INPATIENT AM CDT POCT-GLUCOSE METER Routine 02/02/2018 8:33 Results for this PM CDT procedure are in the results section. POCT-GLUCOSE METER Routine 02/02/2018 3:57 Results for this PM CDT procedure are in the results section. TRANSFUSE Routine 02/02/2018 3:35 LEUKO-REDUCED RED PM CDT BLOOD CELLS POCT-GLUCOSE METER Routine 02/02/2018 11:37 Results for this AM CDT procedure are in the results section. TYPE AND SCREEN Routine 02/02/2018 7:49 Results for this AM CDT procedure are in the results section. CBC W/PLT COUNT & Routine 02/02/2018 5:44 Results for this AUTO DIFFERENTIAL AM CDT procedure are in the results section. CBC W/PLT COUNT & Routine 02/02/2018 5:44 Results for this AUTO DIFFERENTIAL AM CDT procedure are in the results section. POCT-GLUCOSE METER Routine 02/02/2018 5:34 Results for this AM CDT procedure are in the results section. POCT-GLUCOSE METER Routine 02/01/2018 8:57 Results for this PM CDT procedure are in the results section. POCT-GLUCOSE METER Routine 02/01/2018 4:17 Results for this PM CDT procedure are in the results section. POCT-GLUCOSE METER Routine 02/01/2018 11:24 Results for this AM CDT procedure are in the results section. POCT-GLUCOSE METER Routine 02/01/2018 5:15 Results for this AM CDT procedure are in the results section. POCT-GLUCOSE METER Routine 01/31/2018 10:47 Results for this PM CDT procedure are in the results section. POCT-GLUCOSE METER Routine 01/31/2018 5:48 Results for this PM CDT procedure are in the results section. DEBRIDEMENT/I&D,WOUND 01/31/2018 12:00 Leg abscess EXTREMITY LOWER PM CDT Special Needs DR. LILIAM AGUILERA ASST TISSUE EXAM AP Routine 01/31/2018 11:10 AM CDT ANAEROBIC CULTURE Routine 01/31/2018 11:05 AM CDT SURGICALLY OBTAINED Routine 01/31/2018 11:05 AM CDT Results for this CULTURE + GRAM STAIN procedure are in the results section. BASIC METABOLIC PANEL (7) Routine 01/31/2018 9:49 AM CDT (MANUAL DIFFERENTIAL) Routine 01/31/2018 6:43 AM CDT CBC W/PLT COUNT & AUTO Routine 01/31/2018 6:43 AM CDT Results for this DIFFERENTIAL procedure are in the results section. HEPATITIS B SURFACE Routine 01/31/2018 6:43 AM CDT Results for this ANTIBODY procedure are in the results section. HEPATITIS B SURFACE Routine 01/31/2018 6:43 AM CDT Results for this ANTIGEN procedure are in the results section. BASIC METABOLIC PANEL (7) Routine 01/31/2018 6:43 AM CDT CBC W/PLT COUNT & AUTO Routine 01/31/2018 6:43 AM CDT Results for this DIFFERENTIAL procedure are in the results section. POCT-GLUCOSE METER Routine 01/31/2018 6:19 AM CDT HEMODIALYSIS INPATIENT Routine 01/31/2018 12:31 AM CDT POCT-GLUCOSE METER Routine 01/30/2018 4:24 PM CDT (MANUAL DIFFERENTIAL) Routine 01/30/2018 3:48 PM CDT CBC W/PLT COUNT & AUTO STAT 01/30/2018 3:48 PM CDT Results for this DIFFERENTIAL procedure are in the results section. PROTHROMBIN TIME/INR STAT 01/30/2018 3:48 PM CDT BASIC METABOLIC PANEL (7) STAT 01/30/2018 3:48 PM CDT CBC W/PLT COUNT & AUTO STAT 01/30/2018 3:48 PM CDT Results for this DIFFERENTIAL procedure are in the results section. after 09/25/2017 Results TRANSFUSION SERVICE REPORT - SCAN (02/05/2018 5:50 PM CDT)Only the most recent of3 resultswithin the time period is included. Narrative Performed At EKG-SCANNED (02/05/2018 3:24 PM CDT) Narrative Performed At Prepare Leuko-Red RBC (02/04/2018 11:54 PM CDT)Only the most recent of2 resultswithin the time period is included. CROSSMATCH COMPATIBLE SAFETRACE TX Unit ABO O Pos SAFETRACE TX UNIT NUMBER [id number] SAFETRACE TX Status TRANSFUSED SAFETRACE TX Blood Bank Product RED BLOOD CELLS SAFETRACE TX PRODUCT CODE [id number] SAFETRACE TX CROSSMATCH COMPATIBLE SAFETRACE TX Unit ABO O Pos SAFETRACE TX UNIT NUMBER [id number] SAFETRACE TX Status RETURNED FROM ISSUE SAFETRACE TX Blood Bank Product RED BLOOD CELLS SAFETRACE TX PRODUCT CODE [id number] SAFETRACE TX Specimen Other Performing Organization Address [facility] Phone Number SAFETRACE TX Prepare RBC (02/04/2018 11:54 PM CDT) CROSSMATCH COMPATIBLE SAFETRACE TX Unit ABO O Pos SAFETRACE TX UNIT NUMBER [id number] SAFETRACE TX Status TRANSFUSED SAFETRACE TX Blood Bank Product RED BLOOD CELLS SAFETRACE TX PRODUCT CODE [id number] SAFETRACE TX Performing Organization Address City/[facility] Phone Number SAFETRACE TX POC-Glucose meter (02/04/2018 6:15 PM CDT)Only the most recent of18 resultswithin the time period is included. POC-Glucose Meter 129 (H)Comment: TESTED AT 70 - 110 mg/dL [facility] [address] [facility] [id number] Specimen Blood Performing Organization Address City/State/Zipcode Phone Number [facility] [address] [place] [address] CENTER CBC with platelet count + automated diff (02/04/2018 2:07 PM CDT)Only the most recent of5 resultswithin the time period is included. WBC 7.8 4.0 - 10.0 K/L [facility] RBC 3.06 (L) 4.20 - 5.80 M/L [facility] Hemoglobin 8.7 (L) 13.0 - 16.8 GM/DL [facility] Hematocrit 26.1 (L) 40.0 - 50.0 % [facility] MCV 85.5 82.0 - 98.0 fL [facility] MCH 28.4 27.0 - 33.0 pg [facility] MCHC 33.2 32.0 - 36.0 GM/DL [facility] RDW 19.5 (H) 10.3 - 14.2 % [facility] Platelets 264 150 - 430 K/CU MM [facility] MPV 7.4 6.5 - 10.5 fL [facility] % Neutros 52 % [facility] % Lymphs 29 % [facility] % Monos 14 % [facility] % Eos 5 % [facility] % Baso 1 % [facility] # Neutros 4.20 1.80 - 8.00 K/L [facility] # Lymphs 2.20 1.48 - 4.50 K/L [facility] # Monos 1.10 0.00 - 1.30 K/L [facility] # Eos 0.30 0.00 - 0.50 K/L [facility] # Baso 0.00 0.00 - 0.20 K/L [facility] Specimen Blood Performing Organization Address City/State/Zipcode Phone Number [facility] [address] [place], [place] [phone] Basic Metabolic Panel (02/04/2018 2:07 PM CDT)Only the most recent of5 resultswithin the time period is included. Sodium 138 135 - 148 meq/L [facility] Potassium 4.6 3.6 - 5.5 meq/L [facility] Chloride 97 (L) 98 - 106 meq/L [facility] CO2 19 (L) 20 - 29 meq/L [facility] BUN 27 (H) 10 - 26 mg/dL [facility] Creatinine 7.19 (H) 0.50 - 1.20 mg/dL [facility] Glucose 97 70 - 110 mg/dL [facility] Calcium 9.8 8.5 - 10.5 mg/dL [facility] EGFR 11Comment: ESTIMATED GFR IS NOT mL/min/1.73 sq m [facility] ACCURATE CREATININE CLEARANCE IN PREDICTING GLOMERULAR FILTRATION RATE. ESTIMATED GFR IS NOT APPLICABLE FOR DIALYSIS PATIENTS. Specimen Blood Performing Organization Address [facility] Phone Number [address] [address] Phosphorus (02/03/2018 4:48 PM CDT) Phosphorus 6.9 (H) 2.5 - 4.5 mg/dL [facility] Specimen Blood Performing Organization Address [facility] Phone Number [address] [address] Hemoglobin and hematocrit (02/03/2018 8:06 AM CDT) Hemoglobin 6.5 (L) 13.0 - 16.8 GM/DL [facility] Hematocrit 19.0 (L) 40.0 - 50.0 % [facility] Specimen Blood - Central Venous Line Performing Organization Address [facility] Phone Number [address] [address] Manual Differential (02/03/2018 7:27 AM CDT)Only the most recent of3 resultswithin the time period is included. Total Counted [facility] WBC Morphology Normal [facility] Platelet Morphology Normal [facility] Anisocytosis 1+ few [facility] Specimen Blood - Central Venous Line Performing Organization Address [facility] Phone Number [address] [address] [phone] Transfuse Leuko-Red RBC (02/02/2018 3:35 PM CDT)Type and screen (02/02/2018 7: 49 AM CDT) Ab Scrn NEGATIVE [facility] ABO Grouping O [facility] Rh Factor POS [facility] Specimen Blood Performing Organization Address City/State/Zipcode Phone Number [facility] [address] [place] [address] [phone] [facility] Tissue Exam (01/31/2018 11:10 AM CDT) Case Report Surgical Pathology Report Case: [id number] [facility] Authorizing Provider:Lisa Greenberg MD Collected: 01/31/2018 1110 Ordering Location: [facility] Med Surg 5th FloorReceived: 01/31/2018 1249 Pathologist: Sherri Zarate MD Specimen:Leg, Left Lower, NECROTIC TISSUE LEFT LOWER LEG DIAGNOSIS SKIN AND SOFT TISSUE, LEFT LOWER LEG, EXCISION: [facility] - SKIN AND SUBCUTIS WITH NECROSIS, ACUTE AND CHRONIC INFLAMMATION, BACTERIAL COLONIZATION AND CALCIFICATION OF BLOOD VESSELS, CONSISTENT WITH CALCIPHYLAXIS (SEE COMMENT) Signing Pathologist Direct Phone Line: [phone] COMMENT Calcification of small and [facility] medium sized blood vessels are identified along with extensive necrosis of tissue. 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 CPT Code(s) 51293 [facility] CLINICAL HISTORY Not given [facility] SPECIMEN SOURCE Leg, left lower, necrotic [facility] tissue left lower leg GROSS DESCRIPTION The specimen is received in [facility] fixative and designated as "leg, left lower" and consists of skin and subcutaneous tissue (6.0 x 4.0 x 2.0 cm). The overlying skin is brown-patterson and smooth. No discrete lesions. The underlying soft tissue is soft and necrotic. Cardiac Rn sections of the skin and soft tissue are submitted into A1 to A3. MG/pl MICROSCOPIC DESCRIPTION Performed [facility] Gross assessment was [facility] performed at [facility], Department of Pathology, [address] [place] [id number], Technical component was [facility] performed at [facility] Department of Pathology, [address] [place] [phone], Professional component was [facility] LAB[facility] performed at [facility], Department of Pathology, [address] [place] [address], Specimen Tissue - Leg, Left Lower Narrative Performed At Performing Organization Address [facility] Phone Number [facility] [address] [place], [place] [address] [phone] Anaerobic culture (01/31/2018 11:05 AM CDT) Result No anaerobes isolated [facility] Specimen Abscess - Leg, Left Lower Performing Organization Address [facility] Phone Number [facility] [address] [place], [place] [phone] Surgically obtained culture + gram stain (01/31/2018 11:05 AM CDT) Result METHICILLIN RESISTANT [facility] STAPHYLOCOCCUS AUREUS (A) Gram Stain Result 4+ WBCs [facility] Gram Stain Result 1+ gram positive cocci in clusters [facility] Specimen Abscess - Leg, Left Lower Organism Antibiotic Method Susceptibility Methicillin resistant Clindamycin 0.25: Susceptible Staphylococcus aureus Methicillin resistant Linezolid 2: Susceptible Staphylococcus aureus Methicillin resistant Oxacillin >=4: Resistant Staphylococcus aureus Methicillin resistant Rifampin <=0.5: Susceptible Staphylococcus aureus Methicillin resistant Tetracycline <=1: Susceptible Staphylococcus aureus Methicillin resistant Trimethoprim + <=10: Susceptible Staphylococcus aureus Sulfamethoxazole Methicillin resistant Vancomycin 1: Susceptible Staphylococcus aureus Performing Organization Address [facility] Phone Number [facility] [address] [facility] [place] [address] Hepatitis B surface antibody (01/31/2018 6:43 AM CDT) Hep B S Ab 10.2 (H) <8.0 mIU/mL [facility] Specimen Blood - Central Venous Line Performing Organization Address [facility] Phone Number [facility] [address] [place] [phone] CENTER Hepatitis B surface antigen (01/31/2018 6:43 AM CDT) hepatitis B Surface Ag NON-REACTIVE Nonreactive [facility] Specimen Blood - Central Venous Line Performing Organization Address City/[facility] Phone Number [facility] [address] [place] [address] Prothrombin time/INR (01/30/2018 3:48 PM CDT) Protime 11.2 9.3 - 12.0 seconds [facility] INR 1.0 <=5.9 [facility] Specimen Blood Narrative [facility] RECOMMENDED COUMADIN/WARFARIN INR THERAPY RANGES STANDARD DOSE: 2.0 - 3.0 Includes: PROPHYLAXIS for venous thrombosis, systemic embolization; TREATMENT for venous thrombosis and/or pulmonary embolus. HIGH RISK: Target INR is 2.5-3.5 for patients with mechanical heart valves. Performing Organization Address [facility] Phone Number [facility] [address] [place] [address] [phone] after 09/25/2017 Insurance Payer Benefit Plan / Group Subscriber ID Type Phone Address MEDICARE MEDICARE A B xxxxxxxxxx Medicare
--- OUTSIDE RECORDS SUMMARY | 2018-09-26 19:31 | XMS REPORT | Continuity of Care Document ---
:1990 Author Organization Interface Problems Problem Status Onset Classification Date Comments Source Date Reported RENAL/DO NOT USE Active 08/13/20 [facility] F/C 18 Medical NOTES O Center NEW EVALUATION Active 07/29/20 [place] [address] [facility] UNK Active 07/07/20 [facility] 18 Cerebral 12/25/19 03/27/2018 [facility] infarction, 18 unspecified CVA Active 12/06/19 [facility] 18 EMBOLIC STROKE Active 12/06/19 [facility] 18 CVAXXX Active 12/06/19 [facility] 18 Obstructive sleep Active 11/28/19 Finding 12/06/[address] [facility] apnea 18 [facility] Diabetes mellitus Active 11/28/19 Finding 12/06/[address] [facility] 18 [facility] Anemia Active 11/28/19 Finding 12/06/[address] [facility] 18 [facility] Cellulitis Active 11/28/19 Finding 12/06/[address] [facility] 18 [facility] Hyponatremia Active 11/28/19 Finding 12/06/[address] [facility] 18 [facility] Lymphedema Active 11/28/19 Finding 12/06/[address] [facility] 18 [facility] Chronic renal Active 11/28/19 Finding 12/06/[address] [facility] disease 18 [facility] Obesity Active 11/28/19 Finding 12/06/[address] [facility] 18 [facility] Chronic kidney Active 11/28/19 Finding 12/06/[address] [facility] disease 18 [facility] Obstructive sleep Active 11/28/19 Finding 12/06/[address] [facility] apnea syndrome 18 [facility] Congestive heart Active 08/10/20 Finding 12/06/[address] [facility] failure 15 [facility] Malignant Active 08/10/20 Finding 12/06/[address] [facility] hypertension 15 [facility] Chronic anemia Active Finding 12/06/[address] [facility] Morbid obesity Active Finding 12/06/[address] [facility] Chronic kidney Active Finding 12/06/[address] [facility] disease stage 1 [facility] RADHIKA Active Finding 12/06/[address] [facility] Systolic CHF with Active Finding 12/06/[address] [facility] reduced left [facility] [place] function, NYHA class 2 Somnolence Active Finding 12/06/[address] [facility] Hypertensive Active Finding 12/06/[address] [facility] emergency [facility] Illness, 03/27/2018 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 and chronic kidney disease with heart failure and with stage 5 chronic kidney disease, or end stage renal disease Anoxic brain 03/27/2018 [facility] damage, not elsewhere classified Acute kidney 03/27/2018 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 to excess calories Acute 03/27/2018 [facility] posthemorrhagic anemia Acute on chronic 03/27/2018 [facility] systolic heart failure Acute respiratory 03/27/2018 [facility] failure with hypoxia End stage renal 03/27/2018 [facility] disease Hypo-osmolality 03/27/2018 [facility] and hyponatremia Pericardial 03/27/2018 [facility] effusion Body mass index 03/27/2018 [facility] 40.0-44.9, adult Hemiplegia, 03/27/2018 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 kidney disease NIHSS score 27 03/27/2018 [facility] Hypertensive 03/27/2018 [facility] urgency Hyperlipidemia, 03/27/2018 [facility] unspecified Lymphedema, not 03/27/2018 [facility] elsewhere classified Obstructive sleep 03/27/2018 [facility] apnea (pediatric) Physical restraint 03/27/2018 [facility] status Anemia of chronic Active Problem 03/27/2018 [facility] disease Diastolic CHF Active Problem 03/27/2018 [facility] ESRD needing Active Problem 03/27/2018 [facility] dialysis Hyperlipidemia Active Problem 03/27/2018 [facility] Hypertension Active Problem 03/27/2018 [facility] Left hemiplegia Active Problem 03/27/2018 [facility] Diabetes mellitus, Active Problem 03/27/2018 [facility] type II ILLNESS, Active [facility] UNSPECIFIED CEREBRAL Active [facility] INFARCTION, UNSPECIFIED Medications Medication Details Route Status Patient Ordering Order Source Instructions Provider Date labetalol 200 mg 500 mg=2.5 Active oral tablet tab, PO, Q6H, 2017 [facility] 0 Refill(s) Hydralazine PO, Q6H, 0 Active Hydrochloride 100 Refill(s) 2017 [facility] MG Oral Tablet insulin lispro 10 unit, Active 100 units/mL SUB-Q, Sliding 2017 [facility] subcutaneous Scale, PRN injection Blood Glucose Results, 0 Refill(s) 3 ML Insulin 12 unit, Active Glargine 100 SUB-Q, 2017 [facility] UNT/ML Prefilled Bedtime, 0 Syringe [Lantus] Refill(s) heparin sodium, SUB-Q, Q8H, 0 Active porcine 2500 Refill(s) 2017 [facility] UNT/ML Injectable Solution Famotidine 20 MG 20 mg=1 tab, Active Oral Tablet PEG, Q24H, 0 2017 [facility] Refill(s) epoetin ephraim 10,000 unit=1 Active 10,000 units/mL mL, SUB-Q, 2017 [facility] preservative-free Q-M-W-F, 0 injectable Refill(s) solution diphenhydrAMINE 25 mg=10 mL, Active 12.5 mg/5 mL oral PO, Q4H, PRN 2017 [facility] liquid Allergic reaction, 0 Refill(s) chlorhexidine 0.018 gm=15 Active gluconate 1.2 mL, Swab 2017 [facility] MG/ML Mouthwash Mouth, Q4H, 0 Refill(s) atorvastatin 40 80 mg=2 tab, Active mg oral tablet PO, Bedtime, 0 2017 [facility] Refill(s) Albuterol 0.833 3 mL, NEB, Active MG/ML / RQ4H, 0 2017 [facility] Ipratropium Refill(s) Manor 0.167 MG/ML Inhalant Solution [DuoNeb] Benadryl 25 mg, 0.5 mL, Inactive Route: IVP, 2017 [facility] Drug form: INJ, Q4H, Dosing Weight 155.8, kg, PRN Allergic reaction, Start date: 12/19/17 12:05:00 CDT, Duration: 2 day, Stop date: 12/21/17 12:04:00 CDTNotes: (Same as: Benadryl) Benadryl 25 mg, 10 mL, Inactive Route: PO, 2017 [facility] Drug form: LIQ, Q4H, Dosing Weight 155.8, kg, PRN Allergic reaction, Start date: 12/19/17 11:42:00 CDT, Duration: 30 day, Stop date: 01/18/18 11:41:00 CDTNotes: (Same as: Benadryl) Famotidine 20 MG 20 mg, 1 tab, Inactive Oral Tablet Route: PEG, 2017 [facility] Drug form: TAB, Q24H, Dosing Weight 155.8, kg, Start date: 12/19/17 8:00:00 CDT, Duration: 30 day, Stop date: 01/17/18 8:00:00 CDTNotes: (Same as: Pepcid) heparin sodium, 7,500 unit, Inactive porcine 2500 1.5 mL, Route: 2017 [facility] UNT/ML Injectable SUB-Q, Drug Solution form: INJ, Q8H, Dosing Weight 155.8, kg, Start date: 12/19/17 8:00:00 CDT, Stop date: 01/18/18 0:00:00 CDTNotes: porcine heparin Labetalol 500 mg, 2.5 Inactive tab, Route: 2017 [facility] PO, Drug form: TAB, Q6H, Dosing Weight 155.8, kg, Priority: NOW, Start date: 12/19/17 7:45:00 CDT, Duration: 30 day, Stop date: 01/18/18 6:00:00 CDTNotes: With food. (Same as:Trandate, Normodyne) heparin sodium, 5,000 unit, 1 No Longer porcine 2500 mL, Route: Active 2017 [facility] UNT/ML Injectable SUB-Q, Drug Solution form: INJ, Q12H, Dosing Weight 155.8, kg, Start date: 12/18/17 21:00:00 CDT, Duration: 30 day, Stop date: 01/17/18 9:00:00 CDTNotes: porcine heparin 3 ML Insulin 12 unit, 0.12 No Longer Glargine 100 mL, Route: Active 2017 [facility] UNT/ML Prefilled SUB-Q, Drug Syringe [Lantus] form: SOLN, Bedtime, Dosing Weight 155.8, kg, Start date: 12/18/17 21:00:00 CDT, Duration: 30 day, Stop date: 01/16/18 21:00:00 CDTNotes: (Same as: Lantus) Do not hold insulin without contacting prescriber WASTE: F/P - Black; E - Municipal Trash Bin "single patient use only" Vancomycin 1,500 mg, Inactive Route: IVPB2017 [facility] Drug form: PDR/INJ, ONCE, Dosing Weight 155.8, kg, Priority: STAT, Start date: 12/18/17 20:47:00 CDT, Stop date: 12/18/17 20:47:00 CDT, ABX Indication: Fever of Unknown Source 0-60 days of ageNotes: TIME CRITICAL MEDICATION (Same As: Vancocin) For adult patients only: Round to nearest 250 mg per Medical Staff approval Zosyn 3.375 gm, No Longer Route: IVPB, 2017 [facility] Drug form: PDR/INJ, [id number], Dosing Weight 155.8, kg, CrCl Notes: (Same as: Zosyn) Dosing based on Piperacillin component MEDICATION WASTE Product Size: 3375 mg Product Wasted: ___ mg Benadryl 25 mg, 0.5 mL, No Longer Route: IV, Active 2017 [facility] Drug form: INJ, Q6H, Dosing Weight 155.8, kg, Start date: 12/18/17 18:00:00 CDT, Duration: 2 doses or times, Stop date: 12/19/17 0:00:00 CDTNotes: (Same as: Benadryl) Hydralazine 100 mg, 1 tab, No Longer Hydrochloride 50 Route: PO, Active 2017 [facility] MG Oral Tablet Drug form: TAB, Q6H, Dosing Weight 155.8, kg, Start date: 12/18/17 12:00:00 CDT, Duration: 30 day, Stop date: 01/17/18 6:00:00 CDTNotes: (Same as: Apresoline) May interfere w/enteral feedings - Take With Food desmopressin 45 microgram, Inactive 11.25 mL, 2017 Route: IVPB, Drug form: INJ, ONCE, Dosing Weight 155.8, kg, Priority: NOW, Start date: 12/17/17 14:31:00 CDT, Stop date: 12/17/17 14:31:00 CDTNotes: (Same As: DDAVP) MEDICATION WASTE Product Size: 4 microgram Product Wasted: ___ microgram Beneprotein 7 gm 1 pkt, Route: No Longer pkt T FEED, Drug Active 2017 [facility] Form: PWDR, Dosing Weight 155.8, kg, TID, Start date: 12/17/17 13:00:00 CDT, Duration: 30 day, Stop date: 01/16/18 9:00:00 CDTNotes: (Same as: Beneprotein) 3 ML Insulin 10 unit, 0.1 No Longer Glargine 100 mL, Route: Active 2017 [facility] UNT/ML Prefilled SUB-Q, Drug Syringe [...] Longer Hydrochloride 50 Route: PO, Active 2017 [facility] MG Oral Tablet Drug form: TAB, Q6H, Dosing Weight 155.8, kg, Start date: 12/16/17 18:00:00 CDT, Duration: 30 day, Stop date: 01/15/18 12:00:00 CDTNotes: (Same as: Apresoline) May interfere w/enteral feedings Take With Food Clonidine 0.2 mg, 1 tab, No Longer Hydrochloride 0.2 Route: PEG, Active 2017 [facility] Oral Tablet Drug form: TAB, Q8H, Dosing Weight 155.8, kg, Start date: 12/16/17 16:00:00 CDT, Duration: 30 day, Stop date: 01/15/18 8:00:00 CDTNotes: (Same As: Catapres) Hydralazine 10 mg, Route: Inactive Hydrochloride 10 PO, Drug form: 2017 [facility] MG Oral Tablet TAB, Q6H, Dosing Weight 155.8, kg, Start date: 12/14/17 18:00:00 CDT, Duration: 30 day, Stop date: 01/13/18 12:00:00 CDT heparin 7,500 unit, No Longer 1.5 mL, Route: Active 2017 [facility] SUB-Q, Drug form: INJ, Q8H, Dosing [...] unit, 0.06 No Longer mL, Route: Active 2017 [facility] SUB-Q, Drug form: SOLN, Sliding Scale, [...] No Longer Syringe mL, Route: Active 2018 [facility] IVP, Drug Form: INJ, Dosing Weight 155.8, kg, PRN, PRN Blood Glucose Results, Start date: 12/13/17 8:33:00 CDT, Stop date: 01/12/18 8:32:00 CDT Glucagon 1 mg, Route: No Longer IM, Drug form: Active 2018 [facility] PDR/INJ, PRN, Dosing Weight 155.8, kg, PRN Blood Glucose Results, Start date: 12/13/17 8:33:00 CDT, Duration: 30 day, Stop date: 01/12/18 8:32:00 CDT influenza virus 0.5 mL, Route: No Longer vaccine, IM, Drug Form: Active 2018 [facility] inactivated SUSP, ONCALL, Start date: 12/12/17 23:08:24 CDT, Stop date: 01/11/18 23:03:24 CDTNotes: (Same as: Fluzone Quadrivalent, Fluarix Quadrivalent) For 3 years of age and older (0.5 mL IM) Shake well before use Albuterol 0.833 3 ml, Route: No Longer MG/ML / NEB, Drug Active 2017 [facility] Ipratropium Form: SOLN, [place] 0.167 Dosing Weight MG/ML Inhalant 160, kg, RQ4H, Solution [DuoNeb] Start date: 12/12/17 19:00:00 CDT, Duration: 30 day, Stop date: 01/11/18 15:00:00 CDTNotes: (Same as: Duoneb) magnesium citrate 300 ml, Route: Inactive 58.2 MG/ML Oral PO, Drug Form: 2017 [facility] Solution LIQ, Dosing Weight 155.8, kg, ONCE, Start date: 12/12/17 18:55:00 CDT, Stop date: 12/12/17 18:55:00 CDTNotes: (Same as: Citrate of Magnesia) Concentration: 1.745 gm / 30 mL Losartan 50 mg, 1 tab, No Longer Route: PO, Active 2017 [facility] Drug form: TAB, Daily, Dosing Weight 155.8, kg, Priority: NOW, Start date: 12/12/17 18:27:00 CDT, Duration: 30 day, Stop date: 01/11/18 9:00:00 CDTNotes: (Same as: Elda) Versed 2 mg, 2 mL, Inactive Route: IVP, 2017 [facility] Drug form: INJ, ONCE, Dosing [...] 50 microgram, Inactive 1 mL, Route: 2017 [facility] IVP, Drug form: INJ, ONCE, Dosing Weight 155.8, kg, Priority: NOW, Start date: 12/12/17 17:35:00 CDT, Stop date: 12/12/17 17:35:00 CDTNotes: (Same as: Sublimaze) Preservative free. Docusate 100 mg, 10 mL, No Longer Route: NG, Active 2017 [facility] Drug form: LIQ, Q12H, kg, Start date: 12/11/17 21:00:00 CDT, Duration: 30 day, Stop date: 01/10/18 9:00:00 CDTNotes: (Same as: Colace) Miralax 17 gm, 1 pkt, No Longer Route: PO, Active 2017 [facility] Drug form: PWDR, BID, Dosing Weight 160, kg, Start date: 12/11/17 17:00:00 CDT, Duration: 30 day, Stop date: 01/10/18 9:00:00 CDTNotes: Dissolve in 8 oz of water or juice. (Same as: Miralax) heparin 7,500 unit, No Longer 1.5 mL, Route: Active 2017 [facility] SUB-Q, Drug form: INJ, Q8H, Dosing Weight 160, kg, Start date: 12/11/17 16:00:00 CDT, Stop date: 01/10/18 8:00:00 CDTNotes: porcine heparin Clonidine 0.3 mg, 1 tab, No Longer Hydrochloride 0.3 Route: NG, Active 2017 [facility] MG Oral Tablet Drug form: TAB, Q8H, Dosing Weight 160, kg, Start date: 12/11/17 16:00:00 CDT, Duration: 30 day, Stop date: 01/10/18 8:00:00 CDTNotes: (Same As: Catapres) Rocuronium 50 mg, Route: Inactive IV, ONCE, 2017 [facility] Dosing Weight 160, kg, Start date: 12/11/17 11:58:00 CDT, Stop date: 12/11/17 11:58:00 CDT Versed 4 mg, Route: Inactive IVP, ONCE, 2017 [facility] Dosing Weight 160, kg, Start date: 12/11/17 11:58:00 CDT, Stop date: 12/11/17 11:58:00 CDT Fentanyl 100 microgram, Inactive Route: IVP, 2017 [facility] ONCE, Dosing Weight 160, kg, Start date: 12/11/17 11:58:00 CDT, Stop date: 12/11/17 11:58:00 CDT Fentanyl 50 microgram, Inactive 1 mL, Route: 2017 [facility] IVP, Drug form: INJ, ONCE, Dosing Weight 160, kg, Start date: 12/10/17 17:09:00 CDT, Stop date: 12/10/17 17:09:00 CDTNotes: (Same as: Sublimaze) Preservative free. Fentanyl 50 microgram, Inactive 1 mL, Route: 2017 [facility] IVP, Drug form: INJ, ONCE, Dosing Weight 160, kg, Start date: 12/10/17 13:34:00 CDT, Stop date: 12/10/17 13:34:00 CDTNotes: (Same as: Sublimaze) Preservative free. Lidocaine 10 mL, Route: Inactive Hydrochloride 10 SUB-Q, Drug 2017 [facility] MG/ML Injectable Form: INJ, Solution Dosing Weight 160, kg, ONCE, NOW, Start date: 12/10/17 11:18:00 CDT, Stop date: 12/10/17 11:18:00 CDTNotes: Preservative free. (Same as: Xylocaine MPF) Labetalol 10 mg, 2 mL, No Longer Route: IVP, Active 2017 [facility] Drug form: INJ, Q15Min, Dosing Weight 160, kg, PRN Hypertension, Start date: 12/10/17 8:13:00 CDT, Duration: 3 doses or times, Stop date: Limited # of timesNotes: (Same as: Normodyne, Trandate) Push over 2 minutes Give bolus over 2-3 minutes. Hydralazine 10 mg, 0.5 mL, No Longer Route: IVP, Active 2017 [facility] Drug form: INJ, Q2H, Dosing Weight 160, kg, PRN Hypertension, Priority: NOW, Start date: 12/10/17 8:13:00 CDT, Duration: 30 day, Stop date: 01/09/18 8:12:00 CDTNotes: (Same as: Apresoline) Push over 5 minutes Norvasc 10 mg, 1 tab, No Longer Route: GT, Active 2017 [facility] Drug form: TAB, Daily, Dosing Weight 160, kg, Priority: NOW, Start date: 12/10/17 8:12:00 CDT, Duration: 30 day, Stop date: 01/08/18 9:00:00 CDTNotes: (Same as: Norvasc) Labetalol 400 mg, 2 tab, No Longer Route: NG, Active 2017 [facility] Drug form: TAB, Q6Hnow, Dosing Weight 160, kg, Priority: NOW, Start date: 12/10/17 8:11:00 CDT, Duration: 30 day, Stop date: 01/09/18 2:11:00 CDTNotes: With food. (Same as:Trandate, Normodyne) fentaNYL (ANES) Route: IV, Inactive Drug form: 2017 [facility] INJ, ONCE, Stop date: 12/09/17 17:36:00 CDT propofol (ANES) Route: IV, Inactive Drug form: 2017 [facility] INJ, ONCE, Stop date: 12/09/17 17:07:00 CDT rocuronium (ANES) Route: IV, Inactive Drug form: 2017 [facility] INJ, ONCE, Stop date: 12/09/17 17:07:00 CDT midazolam (ANES) Route: IV, Inactive Drug form: 2017 [facility] SOLN, ONCE, Stop date: 12/09/17 17:07:00 CDT Lactated Ringers Route: IV, Inactive Injection IV Total Volume: 2017 [facility] (ANES) 1000 mL 1,000, Start date: 12/09/17 16:26:00 CDT, Stop date: 12/09/17 17:26:00 CDT Beneprotein 7 gm 2 pkt, Route: No Longer pkt T FEED, Drug Active 2017 [facility] Form: PWDR, Dosing Weight 160, kg, TID, Start date: 12/09/17 13:00:00 CDT, Duration: 30 day, Stop date: 01/08/18 9:00:00 CDTNotes: (Same as: Beneprotein) Labetalol 200 mg, 1 tab, No Longer Route: NG, Active 2017 [facility] Drug form: TAB, Q8H, Dosing Weight 160, kg, Start date: 12/09/17 0:00:00 CDT, Duration: 30 day, Stop date: 01/07/18 16:00:00 CDTNotes: With food. (Same as:Trandate, Normodyne) vancomycin + 1 gm, Route: No Longer Dextrose 5% in IVPB, Drug Active 2017 [facility] Water IV 250 mL form: INJ, Q--, Start date: 12/08/17 18:00:00 CDT, Stop date: 12/12/17 18:00:00 CDT, ABX Indication: BacteremiaNote s: TIME CRITICAL MEDICATION (Same As: Vancocin) Infusion rate 2001 mg: infuse over 2.5 hours For adult patients only: Round to nearest 250 mg per Medical Staff approval MEDICATION WASTE Product Size: 1000 mg Product Wasted: ___ mg Labetalol 100 mg, 1 tab, Inactive Route: NG2017 [facility] Drug form: TAB, Q8H, Dosing Weight 160, kg, Start date: 12/08/17 0:00:00 CDT, Duration: 30 day, Stop date: 01/06/18 16:00:00 CDTNotes: With food. (Same as:Trandate, Normodyne) Sodium Chloride 3 mL, Route: No Longer 3% inhalation NEB, Drug Active 2017 [facility] solution Form: MISC, Dosing Weight 160, kg, RQ4H, Start date: 12/07/17 19:00:00 CDT, Duration: 30 day, Stop date: 01/06/18 15:00:00 CDT Albuterol 0.833 3 ml, Route: No Longer MG/ML / NEB, Drug Active 2017 [facility] Ipratropium Form: SOLN, Manor 0.167 Dosing Weight MG/ML Inhalant 160, kg, RQ4H, Solution [DuoNeb] PRN Respiratory Protocol, Start date: 12/07/17 16:58:00 CDT, Duration: 30 day, Stop date: 01/06/18 16:57:00 CDTNotes: (Same as: Duoneb) vancomycin + 1 gm, Route: Inactive Dextrose 5% in IVPB, Drug 2017 [facility] Water IV 250 mL form: INJ, ONCE, Start date: 12/07/17 14:00:00 CDT, Stop date: 12/07/17 14:00:00 CDT, ABX Indication: BacteremiaNote s: TIME CRITICAL MEDICATION (Same As: Vancocin) Infusion rate 2001 mg: infuse over 2.5 hours For adult patients only: Round to nearest 250 mg per Medical Staff approval MEDICATION WASTE Product Size: 1000 mg Product Wasted: ___ mg sennosides, [facility] 8.8 mg, 5 ml, No Longer Route: NG, Active 2017 [facility] Drug Form: SYRP, Dosing Weight 160, kg, Q12H, Start date: 12/06/17 21:00:00 CDT, Duration: 30 day, Stop date: 01/05/18 9:00:00 CDTNotes: (Same as: Senokot) atorvastatin 80 mg, 2 tab, No Longer Route: PO, Active 2017 [facility] Drug form: TAB, Bedtime, kg, Start date: 12/06/17 21:00:00 CDT, Duration: 30 day, Stop date: 01/04/18 21:00:00 CDTNotes: (Same as: Lipitor) Aspirin 325 mg, 1 tab, No Longer Route: NG, Active 2017 [facility] Drug form: TAB, Daily, Dosing Weight 160, kg, Priority: NOW, Start date: 12/06/17 20:16:00 CDT, Duration: 30 day, Stop date: 01/05/18 9:00:00 CDTNotes: Take with food. vancomycin + 2,500 mg, Inactive Sodium Chloride Route: IVPB, 2017 [facility] 0.9% IV 500 mL ONCE, [...] 10,000 unit, 1 No Longer mL, Route: Active 2017 [facility] SUB-Q, Drug form: INJ, Q-M-W-F, Dosing Weight 160, kg, Start date: 12/06/17 18:00:00 CDT, Duration: 30 day, Stop date: 01/03/18 17:00:00 CDTNotes: (Same as: Procrit) epoetin ephraim 03482 unit/1 ml VL. For dialysis use only. (Procrit) WASTE: F/P - Red; E -Red MEDICATION WASTE Product Size: 93646 unit Product Wasted: ___ unit Beneprotein 7 gm 2 pkt, Route: No Longer pkt T FEED, Drug Active 2017 [facility] Form: PWDR, Dosing Weight 160, kg, TID, Start date: 12/06/17 17:00:00 CDT, Duration: 30 day, Stop date: 01/05/18 13:00:00 CDTNotes: (Same as: [place]) Clonidine 0.1 mg, 1 tab, No Longer Hydrochloride 0.1 Route: NG, Active 2017 [facility] MG Oral Tablet Drug form: TAB, Q8H, Dosing Weight 160, kg, Start date: 12/06/17 16:00:00 CDT, Duration: 30 day, Stop date: 01/05/18 8:00:00 CDTNotes: (Same As: Catapres) Vancomycin Vancomycin No Longer Pharmacy Dosing Pharmacy Active 2017 [facility] Dosing, 1, Drug form: MISC, Route: MISC, ONCALL, 12/06/17 16:00:00 CDT, Duration: 7 day, Stop date: 12/13/17 15:59:00 CDT Zosyn + Sodium 4.5 gm, Route: No Longer Chloride 0.9% IV IVPB, [id number], Active 2017 [facility] 100 mL Start date: 12/06/17 13:00:00 CDT, Duration: 7 day, Stop date: 12/13/17 1:00:00 CDT, ABX Indication: BacteremiaNote s: (Same as: Zosyn) Dosing based on Piperacillin component MEDICATION WASTE Product Size: 4500 mg Product Wasted: _0_ mg chlorhexidine 15 mL, Route: No Longer gluconate 1.2 Swab Mouth, Active 2017 [facility] MG/ML Mouthwash Q4H, Drug form: LIQ, Start date: 12/06/17 12:00:00 CDT, Duration: 30 day, Stop date: 01/05/18 8:00:00 CDTNotes: (Same As: Peridex) ocular lubricant 1 appl, Route: No Longer BOTH EYES, Active 2017 [facility] Q6H, Drug form: OINT, Start date: 12/06/17 12:00:00 CDT, Duration: 30 day, Stop date: 01/05/18 6:00:00 CDTNotes: (Same as: Lacri-Lube, Duratears Naturale, Artificial Tears, and Tears Again ) Omnipaque 350 150 mL, Route: Inactive injectable IVP, Drug 2017 [facility] solution Form: SOLN, Dosing Weight 160, kg, ONCALL, For CTA exam in ESRD on dialysis, STAT, Start date: 12/06/17 11:25:00 CDT, Duration: 1 doses or timesNotes: (same as:Omnipaque 350). WASTE: F/P - Black; E - Municipal Trash Bin Famotidine 20 mg, 2 mL, No Longer Route: IVP, Active 2017 [facility] Drug form: INJ, Q24H, Dosing Weight 160, kg, (For Creatinine Clearance Notes: (Same as: Pepcid) Can be dilute in 5-10cc NS IVP: Slow IV push over at least 2 minutes. Zosyn 3.375 gm, Inactive Route: IVPB, 2017 [facility] [id number], Dosing Weight 160, kg, CrCl Notes: (Same as: Zosyn) Dosing based on Piperacillin component MEDICATION WASTE Product Size: 3375 mg Product Wasted: ___ mg Vancomycin 2,000 mg, Inactive Route: IVPB, 2017 [facility] [id number], Dosing Weight 160, kg, Start date: 12/06/17 [...] Longer gluconate 1.2 Swab Mouth, Active 2017 [facility] MG/ML Mouthwash PRN, Drug form: LIQ, PRN Other -See Comment, Start date: 12/06/17 9:58:00 CDT, Duration: 30 day, Stop date: 01/05/18 9:57:00 CDTNotes: (Same As: Peridex) Saline Flush 0.9% 10 ml, Route: No Longer IVP, Drug Active 2017 [facility] Form: INJ, kg, Q12H, Start date: 12/06/17 9:00:00 CDT, Duration: 30 day, Stop date: 01/04/18 21:00:00 CDTNotes: (Same as: BD Posiflush) Docusate 100 mg, 1 cap, No Longer Route: PO, Active 2017 [facility] Drug form: CAP, Q12H, kg, Start date: 12/06/17 9:00:00 CDT, Duration: 30 day, Stop date: 01/04/18 21:00:00 CDTNotes: (Same as: Colace) (Do Not Crush) propofol 10 mg/mL 1,000 mg, 100 No Longer (Titrate.) IV mL, Rate: Active 2017 [facility] 1,000 mg Titrate, Start Dose: 5 microgram/kg/m [...] being intubated (unless the nurse is a COPIER REPAIR TECHNICIAN). Same as: Diprivan Fentanyl 50 microgram, No Longer 1 mL, Route: Active 2017 [facility] IVP, Drug form: INJ, Q2H, Dosing Weight 160, kg, PRN Pain Score 7-10, Start date: 12/06/17 8:38:00 CDT, Duration: 30 day, Stop date: 01/05/18 8:37:00 CDTNotes: (Same as: Sublimaze) Preservative free. heparin 5,000 unit, 1 No Longer mL, Route: Active 2017 [facility] SUB-Q, Drug form: INJ, Q8H, kg, Start date: 12/06/17 8:00:00 CDT, Stop date: 01/05/18 0:00:00 CDTNotes: porcine heparin isosorbide 20 mg=1 tab, No Longer dinitrate 20 mg PO, BID, # 360 Active 2017 [facility] oral tablet tab, 0 Refill(s) aspirin 325 mg 325 mg=1 tab, Active tablet PO, Daily, # 2018 [facility] 90 tab, 0 Refill(s) spironolactone 50 50 mg=1 tab, No Longer mg oral tablet PO, BID, # 60 2017 [facility] tab, 0 Refill(s) Metolazone 5 MG 5 mg=1 tab, No Longer Oral Tablet PO, QWeekday, Active 2017 [facility] # 90 tab, 0 Refill(s) Metolazone 10 mg=1 tab, No Longer PO, Daily, # Active 2017 [facility] 15 tab, 0 Refill(s) labetalol 200 mg 200 mg=1 tab, No Longer oral tablet PO, BID, # 180 2017 [facility] tab, 0 Refill(s) Clonidine 0.2 mg=1 tab, Active Hydrochloride 0.2 PO, TID, # 60 2017 [facility] MG Oral Tablet tab, 0 Refill(s) Hydralazine 50 mg=1 tab, No Longer Hydrochloride 50 PO, TID, # 90 2017 [facility] MG Oral Tablet tab, 3 Refill(s) levothyroxine 75 75 microgram=1 No Longer mcg (0.075 mg) tab, PO, Active 2017 [facility] oral tablet Daily, # 30 tab, 0 Refill(s) Amlodipine 10 MG 10 mg=1 tab, Active Oral Tablet PO, Daily, # 2018 [facility] [Norvasc] 30 tab, 1 Refill(s) insulin detemir See Special No Longer 100 UNT/ML Instructions, Active 2017 [facility] Injectable SUB-Q, BID, Solution Inject 12 [Levemir] units at 9am and inject 8 units at 9pm, vial, 0 Refill(s) Furosemide 40 MG 40 mg=1 tab, No Longer Oral Tablet PO, BID, # 30 2017 [facility] tab, 0 Refill(s) minoxidil 2.5 mg 2.5 mg=1 tab, No Longer oral tablet PO, BID, # 360 2017 [facility] tab, 0 Refill(s) pantoprazole 40 mg, Route: Inactive IVP, Drug 2017 [facility] form: INJ, Before Breakfast, kg, Start date: 12/06/17 7:30:00 CDT, Duration: 30 day, Stop date: 01/04/18 7:30:00 CDTNotes: For IV push reconstitute with 10 ml 0.9% sodium chloride and push over 2 minutes. (Same as: Protonix) Glucagon 1 mg, Route: No Longer IM, Drug form: Active 2018 [facility] PDR/INJ, PRN, Dosing Weight 160, kg, PRN Blood Glucose Results, Start date: 12/06/17 3:56:00 CDT, Duration: 30 day, Stop date: 01/05/18 3:55:00 CDT Dextrose 50% 25 gm, 50 mL, No Longer Syringe Route: IVP, Active 2017 [facility] Drug Form: INJ, Dosing Weight 160, kg, PRN, PRN Blood Glucose Results, Start date: 12/06/17 3:56:00 CDT, Duration: 30 day, Stop date: 01/05/18 3:55:00 CDT Insulin Lispro 4 unit, 0.04 No Longer mL, Route: Active 2017 [facility] SUB-Q, Drug form: SOLN, Sliding [...] Route: No Longer IVP, Drug Active 2017 [facility] Form: INJ, kg, PRN, PRN Line Flush, Start date: 12/06/17 3:39:00 CDT, Duration: 30 day, Stop date: 01/05/18 3:38:00 CDTNotes: (Same as: BD Posiflush) Nicardipine 40 mg, 200 mL, No Longer Rate: Titrate, Active 2017 [facility] Start Dose: 5 mg/hr, Titration: 2.5 mg/hour every 15 minutes, Goal(s): SBP 140-180mmHg., Max Dose: 15 mg/hr, Route: IV, Total Volume: 200, Start date: 12/06/17 3:39:00 CDT, Duration: 30 day, Stop date: 01/05/18 3:38:00 CDTNotes: Same as: Cardene Concentration: (0.2 mg /1 ml ) Acetaminophen 650 mg, 2 tab, No Longer Route: PO, Active 2017 [facility] Drug form: TAB, Q4H, kg, PRN Pain 1-3/Temp > 100.4 F, Start date: 12/06/17 3:39:00 CDT, Duration: 30 day, Stop date: 01/05/18 3:38:00 CDTNotes: Do not exceed 4 gm/day. (Same as: Tylenol) Bisacodyl 10 mg, 1 supp, No Longer Route: MO, Active 2017 [facility] Drug form: SUPP, Daily, kg, PRN Constipation, Start date: 12/06/17 3:39:00 CDT, Duration: 30 day, Stop date: 01/05/18 3:38:00 CDTNotes: (Same As: Dulcolax, Bisco-Lax) Amlodipine DAILY Active 2017 [facility] Furosemide TWICE DAILY Active 2017 [facility] Metolazone EVERY 7 DAYS Active 2017 [facility] Levothyroxine DAILY AT 0600 Active 2017 [facility] Insulin Detemir DAILY Active 2017 [facility] Spironolactone TWICE DAILY Active [facility] 2014 [facility] Hydralazine THREE TIMES A Active [facility] 2014 [facility] Clonidine Hcl THREE TIMES A Inactive [facility] 2014 [facility] Minoxidil TWICE DAILY Active [facility] 2014 [facility] Isosorbide Dinit TWICE DAILY Active [facility] Labetalol Hcl TWICE DAILY Active [facility] Furosemide DAILY Active [facility] Metolazone Sat,Sat,Saturday Active [facility] 2015 [facility] Clonidine Hcl THREE TIMES A Active [facility] . DAY 2015 [facility] Metoprolol TWICE DAILY Active . Tartrate 2015 [facility] Metolazone Sat,Sat,Saturday Active . 2015 [facility] Minoxidil TWICE DAILY Active . 2015 [facility] Hydralazine THREE TIMES A Active DAY 2015 [facility] Clonidine Hcl TWICE DAILY Active . 2014 [facility] Carvedilol TWICE DAILY Active [facility] St[facility] 2014 [facility] Levofloxacin DAILY Active [facility] St[facility] 2014 [facility] Aspirin Enteric DAILY Active [facility] St[facility] Coated 2014 [facility] Clonidine Hcl EVERY TWELVE Active [facility] St. HOURS 2014 [facility] Lisinopril DAILY Active [facility] St[facility] 2014 [facility] Isosorbide Dinit TWICE DAILY Active [facility] St[facility] 2014 [facility] Hydralazine TWICE DAILY Active [facility] St[facility] 2014 [facility] Furosemide DAILY Active [facility] Hydralazine TWICE DAILY Active [facility] St[facility] 2014 [facility] Aspirin Enteric DAILY Active St[facility] Coated 2014 [facility] Clonidine Hcl TWICE DAILY Active St. 2014 [facility] Metformin Hcl TWICE DAILY Active St. WITH MEALS 2014 [facility] Potassium Oral DAILY Active St. Tab 2014 [facility] Furosemide DAILY Active St. 2014 [facility] Lisinopril DAILY Active . 2013 [facility] Carvedilol TWICE DAILY Active . 2012 [facility] Glyburide DAILY Active . 2012 [facility] Lisinopril TWICE DAILY Active . 2012 [facility] Allergies, Adverse Reactions, Alerts Substance Category Reaction Severity Reaction Status Date Comments Source type Reported Immunizations Immunization Date Given Site Status Last Updated Comments Source pneumococcal 12/20/[address] [facility] 13-valent vaccine<sup>1</rose p> Results Order Name Results Value Reference Date Interpretation Comments Source Range Chest 2 Chest 2 Clinical Indication: Coughing - pre-op 07/11 - views DX views - [facility] Comparison: 12/19/2017 Read by: Cee Ramirez [...] radiographic evidence of acute cardiopulmonary abnormality. SL: [id number] CHEM PANEL Phosphorus 3.5 mg/dL 2.5 - 4.5 12/19 [facility] CHEM PANEL Magnesium 2.6 mg/dL 1.8 - 2.4 12/19 Lvl [facility] CHEM PANEL A/G Ratio 0.3 0.7 - 1.6 12/19 [facility] CHEM PANEL AGAP 14.2 meq/L 10.0 - 12/19 20.0 [facility] CHEM PANEL B/C Ratio 10 6 - 25 12/19 [facility] CHEM PANEL Globulin 7.7 g/dL 2.7 - 4.2 12/19 [facility] CHEM PANEL eGFR 10 12/19 [...] is not recommended in the following populations: [place] [id number] Individuals with unstable creatinine concentrations, including patients [...] Total 0.6 mg/dL 0.2 - 1.3 12/19 [facility] CHEM PANEL Alk Phos 223 unit/L 39 - 136 12/19 [facility] CHEM PANEL ALT 26 unit/L 0 - 65 12/19 [facility] CHEM PANEL AST 34 unit/L 0 - 37 12/19 [facility] CHEM PANEL Chloride Lvl 97 meq/L 95 - 109 12/19 [facility] CHEM PANEL Potassium 4.2 meq/L 3.5 - 5.1 12/19 Lvl [facility] CHEM PANEL Calcium Lvl 9.6 mg/dL 8.5 - 10.5 12/19 [facility] CHEM PANEL CO2 26 meq/L 24 - 32 12/19 [facility] CHEM PANEL Glucose Lvl 190 mg/dL 70 - 99 12/19 [facility] CHEM PANEL Albumin Lvl 2.2 g/dL 3.5 - 5.0 12/19 [facility] CHEM PANEL Total 9.9 g/dL 6.4 - 8.4 12/19 [facility] CHEM PANEL Creatinine 6.80 mg/dL 0.50 - 12/19 MH Lvl 1.40 [facility] CHEM PANEL Sodium Lvl 133 meq/L 135 - 145 12/19 [facility] CHEM PANEL BUN 67 mg/dL 7 - 22 12/19 [facility] HEMATOLOGY PTT 33.9 s 22.9 - 12/19 MH 35.8 [facility] HEMATOLOGY INR 1.29 0.85 - 12/19 MH 1.17 [facility] HEMATOLOGY PT 16.2 s 12.0 - 12/19 MH 14.7 [facility] HEMATOLOGY MPV 7.8 fL 7.4 - 10.4 12/19 [facility] HEMATOLOGY RBC 3.17 M/CMM 4.70 - 12/19 MH 6.10 [facility] HEMATOLOGY WBC 13.7 K/CMM 3.7 - 10.4 12/19 [facility] HEMATOLOGY Hct 24.4 % 42.0 - 12/19 MH 54.0 [facility] HEMATOLOGY Hgb 7.9 g/dL 14.0 - 12/19 MH 18.0 [facility] HEMATOLOGY MCHC 32.4 g/dL 32.0 - 12/19 MH 36.0 [facility] HEMATOLOGY MCH 24.9 pg 27.0 - 12/19 MH 31.0 [facility] HEMATOLOGY MCV 77.1 fL 80.0 - 12/19 MH 94.0 [facility] HEMATOLOGY Platelet 317 K/CMM 133 - 450 12/19 [facility] HEMATOLOGY RDW 20.7 % 11.5 - 12/19 14. [facility] HEMATOLOGY Monocytes # 1.0 K/CMM 0.0 - 0.8 12/19 [facility] HEMATOLOGY Lymphocytes 1.0 K/CMM 1.0 - 5.5 12/19 [facility] HEMATOLOGY Microcyte 1+ None Seen 12/19 [facility] *ABN* (12/19/17 4:36 AM) HEMATOLOGY Eosinophils 0.5 K/CMM 0.0 - 0.5 12/19 [facility] HEMATOLOGY Eosinophils 3.7 % 0.0 - 4.0 12/19 [facility] HEMATOLOGY Monocytes 7.1 % 2.0 - 12.0 12/19 [facility] HEMATOLOGY Lymphocytes 7.0 % 20.0 - 12/19 40.0 [facility] HEMATOLOGY Segs-Bands # 11.2 K/CMM 1.5 - 8.1 12/19 [facility] HEMATOLOGY Basophils 0.2 % 0.0 - 1.0 12/19 [facility] HEMATOLOGY Segs 82.0 % 45.0 - 12/19 75.0 [facility] PARATHYROI Ca Ion WB 1.19 1.05 - 12/19 D PROFILE mMol/L . [facility] PARATHYROI Ca Norm WB 1.18 1.05 - 12/19 D PROFILE mMol/L 10.17 [facility] Chest Chest 1view Clinical Indication: - resp failure; 12/19 - 1view DX DX /2017 - [facility] Comparison: 12/17/2017 Read by: Joel [...] unchanged. 2. Support devices are stable. SL: [id number] CHEM PANEL Lactic Acid 1.0 mMol/L 0.5 - 2.2 12/19 Lvl [facility] MEROPENEM: Gram Stain Rare WBC's 12/19 SUSC:PT:IS Report [facility] OLATE:ORDQ Rare Gram Negative Rods N:[place] MEROPENEM: Culture: Many Escherichia coli 12/19 SUSC:PT:IS Respiratory [facility] OLATE:ORDQ w/Gram Stain Normal Respiratory Nova Isolated N:[place] MEROPENEM: Escherichia Escherichi 12/19 SUSC:PT:IS coli a coli [facility] OLATE:ORDQ N:[place] CHEM PANEL A/G Ratio 0.3 0.7 - 1.6 12/18 [facility] CHEM PANEL Globulin 7.9 g/dL 2.7 - 4.2 12/18 [facility] CHEM PANEL B/C Ratio 10 6 - 25 12/18 [facility] CHEM PANEL AGAP 18.6 meq/L 10.0 - 12/18 MH 20.0 [facility] CHEM PANEL eGFR 8 12/18 Result Comment: The eGFR is calculated using the CKD-EPI formula. In most young, healthy individuals the eGFR will be >90 mL/ min/1.73m2. The eGFR declines with age. An eGFR of 60-89 may be normal in MH mL/min/1.7 /2017 some populations, particularly the elderly, for whom the CKD-EPI formula has not been extensively validated. Use of the eGFR is not recommended in the following populations: [facility] 3m2 Individuals with unstable creatinine [...] Lvl 10.0 mg/dL 8.5 - 10.5 12/18 [facility] CHEM PANEL CO2 25 meq/L 24 - 32 12/18 [facility] CHEM PANEL Albumin Lvl 2.4 g/dL 3.5 - 5.0 12/18 [facility] CHEM PANEL Total 10.3 g/dL 6.4 - 8.4 12/18 [facility] CHEM PANEL Alk Phos 224 unit/L 39 - 136 12/18 [facility] CHEM PANEL AST 37 unit/L 0 - 37 12/18 [facility] CHEM PANEL ALT 26 unit/L 0 - 65 12/18 [facility] CHEM PANEL Bili Total 0.7 mg/dL 0.2 - 1.3 12/18 [facility] CHEM PANEL Potassium 4.6 meq/L 3.5 - 5.1 12/18 Lvl /2017 [facility] CHEM PANEL Sodium Lvl 133 meq/L 135 - 145 12/18 [facility] CHEM PANEL Chloride Lvl 94 meq/L 95 - 109 12/18 [facility] CHEM PANEL Creatinine 8.40 mg/dL 0.50 - 12/18 MH Lvl 1.40 [facility] CHEM PANEL BUN 82 mg/dL 7 - 22 12/18 [facility] CHEM PANEL Glucose Lvl 191 mg/dL 70 - 99 12/18 [facility] HEMATOLOGY Monocytes 7.8 % 2.0 - 12.0 12/18 [facility] HEMATOLOGY Lymphocytes 7.5 % 20.0 - 12/18 MH 40.0 [facility] HEMATOLOGY Segs 81.2 % 45.0 - 12/18 75.0 [facility] HEMATOLOGY Segs-Bands # 10.2 K/CMM 1.5 - 8.1 12/18 [facility] HEMATOLOGY Eosinophils 3.4 % 0.0 - 4.0 12/18 [facility] HEMATOLOGY Basophils 0.1 % 0.0 - 1.0 12/18 [facility] HEMATOLOGY Microcyte 1+ None Seen 12/18 [facility] *ABN* (12/18/17 4:27 AM) HEMATOLOGY Monocytes # 1.0 K/CMM 0.0 - 0.8 12/18 /2017 [facility] HEMATOLOGY Lymphocytes 0.9 K/CMM 1.0 - 5.5 12/18 # /2017 [facility] HEMATOLOGY Eosinophils 0.4 K/CMM 0.0 - 0.5 12/18 # /2017 [facility] HEMATOLOGY PTT 31.6 s 22.9 - 12/18 35.8 /2017 [facility] HEMATOLOGY PT 16.3 s 12.0 - 12/18 14.7 [facility] HEMATOLOGY INR 1.30 0.85 - 12/18 1.17 /2017 [facility] HEMATOLOGY RBC 3.23 M/CMM 4.70 - 12/18 6.10 /2017 [facility] HEMATOLOGY WBC 12.5 K/CMM 3.7 - 10.4 12/18 [facility] MPV 8.3 fL 7.4 - 10.4 12/18 [facility] RDW 20.2 % 11.5 - 12/18 14.5 [facility] Platelet 373 K/CMM 133 - 450 12/18 /2017 [facility] MCHC 33.0 g/dL 32.0 - 12/18 36.0 /2017 [facility] MCH 25.0 pg 27.0 - 12/18 31.0 /2017 [facility] Hgb 8.1 g/dL 14.0 - 12/18 18.0 [facility] Hct 24.5 % 42.0 - 12/18 54.0 [facility] MCV 75.7 fL 80.0 - 12/18 94.0 [facility] BLOOD BANK FFP product Product available 12/17 Result Comment: 2017 14:47 [id number] RESULTS /2017 Plasma available, notified Katie LING at 12/17/2017 14:47 by AB. Lott (12/17/17 2:29 PM) Chest Chest 1view Patient Name: BEKAH STEPHENS 12/17 - 1view DX DX - [facility] : 1990; Age: 27 years y/o Male MR: [id number] Read by: Sanchez Call MD Dictated Date/time: [...] pleural effusion or pneumothorax appreciated. 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 SL: [id number] CHEM PANEL eGFR 11 12/17 Result Comment: [...] is not recommended in the following populations: [place] [address] Individuals with unstable creatinine concentrations, including patients [...] B/C Ratio 10 6 - 25 12/17 [facility] CHEM PANEL Total 10.4 g/dL 6.4 - 8.4 12/17 [facility] CHEM PANEL Calcium Lvl 9.4 mg/dL 8.5 - 10.5 12/17 [facility] CHEM PANEL Alk Phos 235 unit/L 39 - 136 12/17 [facility] CHEM PANEL Bili Total 0.6 mg/dL 0.2 - 1.3 12/17 [facility] CHEM PANEL ALT 26 unit/L 0 - 65 12/17 [facility] CHEM PANEL AST 42 unit/L 0 - 37 12/17 [facility] CHEM PANEL A/G Ratio 0.3 0.7 - 1.6 12/17 [facility] CHEM PANEL Albumin Lvl 2.2 g/dL 3.5 - 5.0 12/17 [facility] CHEM PANEL Globulin 8.2 g/dL 2.7 - 4.2 12/17 [facility] CHEM PANEL AGAP 13.3 meq/L 10.0 - 12/17 MH 20.0 [facility] CHEM PANEL Chloride Lvl 95 meq/L 95 - 109 12/17 [facility] CHEM PANEL CO2 30 meq/L 24 - 32 12/17 [facility] CHEM PANEL Creatinine 6.30 mg/dL 0.50 - 12/17 MH Lvl 1.40 /2017 [facility] CHEM PANEL Sodium Lvl 134 meq/L 135 - 145 12/17 [facility] CHEM PANEL Glucose Lvl 169 mg/dL 70 - 99 12/17 [facility] CHEM PANEL Potassium 4.3 meq/L 3.5 - 5.1 12/17 Lvl /2017 [facility] CHEM PANEL BUN 60 mg/dL 7 - 12/17 [facility] HEMATOLOGY Lymphocytes 1.0 K/CMM 1.0 - 5.5 12/17 [facility] HEMATOLOGY Eosinophils 3.7 % 0.0 - 4.0 12/17 [facility] HEMATOLOGY Monocytes 8.1 % 2.0 - 12.0 12/17 [facility] HEMATOLOGY Microcyte 1+ None Seen 12/17 [facility] *ABN* (12/17/17 3:52 AM) HEMATOLOGY Eosinophils 0.3 K/CMM 0.0 - 0.5 12/17 [facility] HEMATOLOGY Monocytes # 0.7 K/CMM 0.0 - 0.8 12/17 [facility] HEMATOLOGY Segs 76.3 % 45.0 - 12/17 75.0 [facility] HEMATOLOGY Lymphocytes 11.5 % 20.0 - 12/17 MH 40.0 [facility] HEMATOLOGY Segs-Bands # 6.9 K/CMM 1.5 - 8.1 12/17 [facility] HEMATOLOGY Basophils 0.4 % 0.0 - 1.0 12/17 [facility] HEMATOLOGY PTT 33.8 s 22.9 - 12/17 35.8 /2017 [facility] HEMATOLOGY PT 15.8 s 12.0 - 12/17 14.7 [facility] HEMATOLOGY INR 1.25 0.85 - 12/17 MH 1.17 [facility] HEMATOLOGY MCHC 33.5 g/dL 32.0 - 12/17 36.0 /2017 [facility] HEMATOLOGY MCH 25.5 pg 27.0 - 12/17 MH 31.0 /2018 [facility] HEMATOLOGY MPV 8.0 fL 7.4 - 10.4 12/17 [facility] HEMATOLOGY Platelet 368 K/CMM 133 - 450 12/17 [facility] HEMATOLOGY RDW 19.9 % 11.5 - 12/17 MH 14.5 [facility] HEMATOLOGY Hgb 8.4 g/dL 14.0 - 12/17 MH 18.0 [facility] HEMATOLOGY Hct 25.0 % 42.0 - 12/17 MH 54.0 [facility] HEMATOLOGY RBC 3.29 M/CMM 4.70 - 12/17 MH 6.10 [facility] HEMATOLOGY MCV 76.0 fL 80.0 - 12/17 MH 94.0 [facility] HEMATOLOGY WBC 9.1 K/CMM 3.7 - 10.4 12/17 [facility] FFP product Product available 2 12/16 Result Comment: 2017 11:08 [id number] FFP available, notified Evelyn Lopes 11:08 at 12/16/2017 11:08 by RONALD. [facility] (12/16/17 10:57 AM) CHEM PANEL Magnesium 2.9 mg/dL 1.8 - 2.4 12/16 Lv [facility] CHEM PANEL Phosphorus 4.3 mg/dL 2.5 - 4.5 12/16 [facility] PARATHYROI Ca Ion WB 1.17 1.05 - 12/16 D PROFILE mMol/L 10.17 [facility] PARATHYROI Ca Norm WB 1.18 1.05 - 12/16 D PROFILE mMol/L 10.17 [facility] CHEM PANEL Magnesium 2.6 mg/dL 1.8 - 2.4 12/15 [facility] CHEM PANEL Phosphorus 4.1 mg/dL 2.5 - 4.5 12/15 [facility] PARATHYROI Ca Ion WB 1.08 1.05 - 12/15 MH D PROFILE mMol/L 10.17 [facility] PARATHYROI Ca Norm WB 1.13 1.05 - 12/15 D PROFILE mMol/L 10.17 [facility] CHEM PANEL Lactic Acid 0.5 mMol/L 0.5 - 2.2 12/14 Lvl [facility] BLOOD BANK ABO/Rh O POS 12/14 RESULTS [facility] BLOOD BANK Antibody Negative 12/14 RESULTS Scrn /2017 [facility] (12/14/17 9:47 AM) BLOOD BANK RBC product Product available 3 12/14 Result Comment: 2017 10:47 [id number] RESULTS /2017 Blood available, notified BRIAN at 12/14/2017 10:47 by CHERIE. [facility] (12/14/17 8:19 AM) CARDIAC BNP 221 pg/mL <=100 12/14 ENZYMES pg/mL /2017 [facility] HEMATOLOGY Basophils # 0.1 K/CMM 0.0 - 0.2 12/14 [facility] Chest Chest 1view EXAM: Chest 1view DX 12/14 - view DX - [facility] DATE: 12/14/2017 3:00 AM CDT INDICATION: - [...] are unchanged. No significant pneumothorax detected. SL: [id number] Chest Chest 1view Study: Chest 1view DX 12/12 - DX [facility] Clinical Indication: - tachypnea Read by: Abdoul [...] Stable exam of the chest SL: SLEE-PC TOXICOLOGY Vanco Tr TND [id number] 12/12 [facility] TOXICOLOGY Vanco Tr 18.3 ug/ml 12/12 [facility] Chest Chest 1view CHEST RADIOGRAPH SINGLE VIEW 12/12 - [facility] DX [facility] INDICATION: Respiratory failure Read by: Jose [...] BEKAH STEPHENS 12/11 - 1view DX DX /2017 - [facility] : 1990; Age: 27 years Male MR: [id number] Read by: Zechariah Mcintosh MD Dictated Date/time: [...] infiltrate and effusion. Decreased edematous change. SL: [id number] BODY Protein CSF 27 mg/dL 15 - 45 12/10 MH FLUIDS [facility] BODY Glucose CSF 99 mg/dL 45 - 80 12/10 FLUIDS [facility] BODY RBC CSF 310 /mm3 0 - 03 12/10 MH FLUIDS [facility] BODY Supernat CSF Colorless Colorless 12/10 FLUIDS [facility] (12/10/17 6:46 PM) BODY Tube Num CSF 1 12/10 FLUIDS [facility] BODY WBC CSF 1 /mm3 0 - 53 12/10 FLUIDS [facility] BODY Color CSF Colorless Colorless 12/10 FLUIDS [facility] (12/10/17 6:46 PM) BODY Clarity CSF Clear Clear 12/10 FLUIDS [facility] (12/10/17 6:46 PM) FUNGAL - Crypto Ag Negative Negative 12/10 SEROLOGY CSF /2017 [facility] (12/10/17 6:46 PM) IMMUNOLOGY IgG Index 0.3 mg/dL 0.3 - 0.7 12/10 [facility] IMMUNOLOGY Alb CSF 11.4 mg/dL 14.0 - 12/10 (CPE) 25.0 [facility] IMMUNOLOGY Alb (CPE) 2000.0 3400.0 - 12/10 mg/dL 5000.0 [facility] IMMUNOLOGY IgG Lvl CSF 6.2 mg/dL 2.0 - 4.0 12/10 [facility] IMMUNOLOGY IgG (CPE) 3320 mg/dL 694 - 1618 12/10 [facility] IMMUNOLOGY PE Interp CSF 12/10 CSF protein [facility] electropho resis did not reveal evidence of an oligoclona l process in the [employer]. The CSF IgG index is within the reference range indicating that there is no elevation in intracereb ral IgG synthesis. There is also no evidence of increased permeabili ty of the blood brain barrier based on the CSF/serum albumin ratio.The electronic medical record has been reviewed for relevant history.I have personally reviewed the test results and concur with the resident's interpreta tion.CPT: 11354-XD IMMUNOLOGY Description The gel 12/10 CSF demonstr [facility] es appropriat e resolution of the main protein bands. The gamma region shows continuous distributi on of proteins both in the CSF and in the serum. No oligoclona l bands are detected. IMMUNOLOGY VDRL Scr CSF Non Reactive Non 12/10 Reactive [facility] (12/10/17 6:46 PM) IMMUNOLOGY DC CSF 3 unit/L <=3 unit/L 12/10 [facility] MOLECULAR HSV 2 by PCR Not Performed Negative 12/10 [facility] (12/10/17 6:46 PM) MOLECULAR HSV 1 by PCR Not Performed Negative 12/10 [facility] (12/10/17 6:46 PM) MOLECULAR Source HSV CSF 1 12/10 Result Comment: CSF [facility] (12/10/17 6:46 PM) contains less than 5 WBC'S and has a normal Protein level. MOLECULAR VZV PCR Negative Negative 12/10 [facility] (12/10/17 6:46 PM) MOLECULAR Source VZV Cerebral 12/10 DIAGNOSTIC Spinal [facility] Fluid Gram Stain No Wbc'S 12/10 Report Or [facility] Organisms Seen Culture: CSF No Growth 12/10 w/Gram Stain [facility] ANEMIA Vitamin B12 675 pg/mL 254 - 1320 12/10 STUDY Lvl /2017 [facility] HEMATOLOGY Protein S 94 % 54 - 137 12/10 Func [facility] HEMATOLOGY Protein C 102 % 72 - 147 12/10 Func [facility] IMMUNOLOGY C4 22 mg/dL 16 - 47 12/10 Complement [facility] IMMUNOLOGY C3 133 mg/dL 88 - 201 12/10 Complement /2017 [facility] IMMUNOLOGY C-REACTIVE 112.0 mg/L <=2.9 mg/L 12/10 PROTEIN [facility] IMMUNOLOGY Treponemal Non Reactive Non 12/10 Ab Reactive [facility] *NA* (12/10/17 4:28 AM) IMMUNOLOGY Homocyst Tot 13.7 3.7 - 13.9 12/10 umol/L [facility] TOXICOLOGY Vanco Lvl 21.8 ug/ml 12/10 [facility] HEMATOLOGY AT III Func 89 % 77 - 140 12/10 [facility] HEMATOLOGY APC Resist 2.5 Ratio 2.2 - 3.5 12/10 Result Comment: The APCR result may be falsely increased (masking an abnormal, low APCR result) in patients on direct Xa [place] inhibitor (e.g., rivaroxaban, apixaban, edoxaban) or a direct thrombin inhibitor (e.g., dabigatran) anticoagulant therapy due to assay interference by these drugs. Performed At: [address] [id number] Tania Butler MD Ph:[phone] HEMATOLOGY F5 Leiden Negative 12/10 PCR [facility] (12/09/17 10:02 PM) HEMATOLOGY F5 Leiden FACTOR V 12/10 Intrp LEIDEN: [facility] NegativeIN TERPRETATI ON:Molecul ar analysis [...] results. SAY LIMITATION S:The assay uses the Ante [employer]-cleare d Obdulio Factor V Leiden IVD(Poymer ase chain reaction/F RET detection) kit, [employer] LC Instrument and the [employer] r 1.2 Instrument . A 222-bp fragment of Factor V gene (FV) containing the Factor V Leiden sequence is amplified in the assay. The assay is designed to detect the G [id number] mutation only. Other causes of activated protein C resistance and hereditary forms of venous thrombosis are not ruled out. However, e melting curve analysis may implicate the presence [...] data. This assay has been validated by [facility] . HEMATOLOGY Sed Rate >100 mm/hr 0 - 15 12/10 [facility] HEMATOLOGY F2 Mut FACTOR II 12/10 Interp PT: /2017 [facility] NegativeIN TERPRETATI ON:Molecul ar analysis for the Factor II (Prothromb in) [id number] mutation wasnegativ e. Other causes of elevated prothrombi n levels and hereditary formsof venous thrombosis are not ruled out. Final diagnosis requires correlatio nwith clinical history and other pertinent laboratory findings.W here appropriat e, medical consultati on and genetic counseling should beoffered to inform and explain the risk implicatio ns and genetic implicatio nsof these test results. SAY LIMITATION S:The assay uses the FDA-cleare d Obdulio Factor II (Prothromb in) [id number] IVD(Polyme rase chain reaction/F RET detection) kit, [employer] LC Instrument and the [employer] r 1.2 Instrument . A 165-bp fragment of Factor IIgene(FII ) containing the Factor II [id number] sequence is amplified in theassay. The assay is designed to detect the [id number] mutation only. Othercause s of elevated prothrombi n levels and hereditary forms of venousthro mbosis are not ruled out. However, the melting curve analysis mayimplica te the presence of a possible rare mutation at position 36831 (Furtherte sting will be recommende d in the report). A minimum detection level is 198copies of Factor II per reaction. The level of agreement between the FactorII(P rothrombin ) [id number] Kit and sequence analysis was 98.9%. The test resultmust be interprete d along with the patient's clinical history and revelant laboratory data. This assay has been validated by [facility] . HEMATOLOGY F2 Mutation Negative 12/10 [facility] (12/09/17 10:02 PM) HEMATOLOGY dRVV Ratio 1.10 <=1.20 12/10 [facility] HEMATOLOGY Hex Phos N Negative Negative 12/10 [facility] (12/09/17 10:02 PM) HEMATOLOGY Lup Interp Negative 12/10 for lupus /2017 [facility] anticoagul ant by DRVV screen and hexagonal phospholip idneutrali zation test. If there is a strong clinical suspicion of lupus anticoagul ant,additi onal testing, to include repeat studies at a clinically appropriat e interval and anticardio lipin antibody assays, is recommende d.Interpre tation performed at [facility]. IMMUNOLOGY GRETEL Interp Pattern 12/10 [facility] speckled IMMUNOLOGY GRETEL Titer 1:40 Negative 12/10 [facility] *ABN* (12/09/17 10:02 PM) IMMUNOLOGY SS-A (Ro) Ab null <=0.9 AI 12/10 [facility] IMMUNOLOGY SS-B (La) Ab null <=0.9 AI 12/10 [facility] IMMUNOLOGY Hgb A % 98.0 % 95.8 - 12/10 97.8 /2017 [facility] IMMUNOLOGY Hgb A2 % 2.0 % 2.2 - 3.2 12/10 [facility] IMMUNOLOGY Hgb F % 0.0 % 0.0 - 1.0 12/10 [facility] IMMUNOLOGY Hgb S % 0.0 % 0.0 - 0.0 12/10 [facility] IMMUNOLOGY Hgb C % 0.0 % 0.0 - 0.0 12/10 [facility] IMMUNOLOGY Hgb Interp No 12/10 [facility] hemoglobin s are detected; normal [...] and concur with the resident's interpreta tion.CPT 97541-[id number] IMMUNOLOGY C-ANCA Negative Negative 12/10 [facility] (12/09/17 10:02 PM) IMMUNOLOGY P-ANCA Negative Negative 12/10 [facility] (12/09/17 10:02 PM) IMMUNOLOGY Cryoglob Negative Negative 12/10 [facility] (12/09/17 10:02 PM) IMMUNOLOGY HIV Ag/Ab Negative Negative 12/10 [facility] *NA* (12/09/17 10:02 PM) IMMUNOLOGY GRETEL Positive Negative 12/10 [facility] *ABN* (12/09/17 10:02 PM) IMMUNOLOGY Cardiolipin null <=19.9 APL 12/10 IgA [facility] IMMUNOLOGY Cardiolipin null <=19.9 MPL 12/10 IgM [facility] IMMUNOLOGY Cardiolipin null <=19.9 GPL 12/10 IgG [facility] Chest Chest 1view Clinical indication: Respiratory Distress 12/10 - 1view DX - [facility] Comparison: Chest 1 view 12/09/2017 [...] airspace opacities, concerning for pulmonary edema. SL: [id number] TOXICOLOGY Vanco Lvl 22.6 ug/ml 12/09 [facility] CHEM PANEL Bili Direct 0.1 mg/dL 0.0 - 0.3 12/09 [facility] CHEM PANEL Bili 0.3 mg/dL 0.0 - 1.0 12/09 [facility] Chest Chest 1view Patient Name: BEKAH STEPHENS 12/09 - 1view DX - [facility] : 1990; Age: 27 years y/o Male MR: [id number] Read by: Abdoul Lofton MD Dictated Date/time: [...] of pleural fluid on the right. SL: [id number] TOXICOLOGY Vanco Lvl 26.7 ug/ml 12/08 [facility] Brain wo Brain wo Study: Brain wo contrast MRI 12/08/2017 11:10 AM CDT - contrast contrast - [facility] MRI Ordering Physician: Carlos Nguyen DO Read by: [...] reflect embolic disease. Please correlate clinically. SL: [id number] Brain wo Brain wo Study: Brain wo contrast MRA 12/08/2017 11:10 AM CDT [facility] contrast contrast MRA /2018 - [facility] MRA Ordering Physician: Carlos Nguyen DO Read by: Cristina Heller MD Dictated Date/time: 12/08/17 15:41 Clinical Indication: stoke evaluation. Known heart failure. Electronically Signed by: Cristina Heller MD 12/08/17 15 :57 FINAL REPORT Comparison: None Technique: 3-D [id number] MR angiographic images and maximum intensity projection reformats of the [place] are obtained on a 1.5 [...] seen. The examination is otherwise unremarkable. SL: [id number] Neck wo Neck wo Study: Neck wo contrast MRA 12/08/2017 11:10 AM CDT 12/08 contrast contrast MRA - [facility] MRA Ordering Physician: Carlos Nguyen [...] criteria. No significant vertebral artery stenosis. SL: [id number] HEMATOLOGY Target Cell Moderate None Seen 12/08 [facility] *ABN* (12/08/17 4:39 AM) HEMATOLOGY Basophils # 0.1 K/CMM 0.0 - 0.2 12/08 [facility] HEMATOLOGY Plt Morph Normal 12/08 [facility] (12/08/17 4:39 AM) Chest Chest 1view Patient Name: BEKAH STEPHENS 12/08 1view DX DX - [facility] : 1990; Age: 27 years y/o Male MR: [id number] Read by: Mark Anthony Solomon MD Dictated [...] URINE AND UA Color Rita 12/07 STOOL [facility] URINE AND UA Glucose 50 mg/dL 12/07 STOOL [facility] URINE AND UA null 0.1 - 1.0 12/07 [facility] Urobilinogen [facility] URINE AND UA Bacteria Few /HPF None Seen 12/07 STOOL /HPF [facility] URINE AND UA WBC 13 /HPF 0 - 5 12/07 STOOL [facility] URINE AND UA Sq Epi Occasional Few /LPF 12/07 STOOL /LPF [facility] URINE AND UA Amorph Occasional None Seen 12/07 STOOL Yvonne /HPF /HPF /2017 [facility] URINE AND UA Mucus Few /LPF None Seen 12/07 STOOL /LPF [facility] URINE AND UA Blood Negative Negative 12/07 STOOL [facility] (12/07/17 5:02 PM) URINE AND UA Bili Negative Negative 12/07 STOOL [facility] *NA* (12/07/17 5:02 PM) URINE AND UA RBC 5 /HPF 0 - 2 12/07 STOOL [facility] URINE AND UA Protein 100 mg/dL Negative 12/07 STOOL mg/dL [facility] URINE AND UA pH 5.0 5.0 - 8.0 12/07 STOOL [facility] URINE AND UA Spec Grav 1.023 <=1.030 12/07 STOOL [facility] URINE AND UA Leuk Est Trace Negative 12/07 [facility] *ABN* (12/07/17 5:02 PM) URINE AND UA Nitrite Negative Negative 12/07 STOOL /2017 [facility] (12/07/17 5:02 PM) URINE AND UA Ketones Negative Negative 12/07 STOOL mg/dL mg/dL [facility] URINE AND UA Turbidity Marked Clear 12/07 STOOL [facility] *ABN* (12/07/17 5:02 PM) URINE CHEM U Sodium 22 meq/L 12/07 [facility] URINE CHEM U Osmolality 316 300 - 800 12/07 mOsm/kg [facility] Culture: <10,000 12/07 Urine CFU/mL /2017 [facility] Yeast Chest Chest 1view Clinical Indication: - tachypnea; 12/07 1view DX DX - [facility] Comparison: 12/07/2017 Read by: Paty Anderson MD [...] Name: BEKAH STEPHENS 12/07 1view DX DX - [facility] : 1990; Age: 27 years y/o Male MR: [id number] Read by: Mark Anthony Solomon MD Dictated [...] nasogastric tube extends into the stomach. SL: [id number] IMMUNOLOGY Hep C Ab Negative 12/06 [facility] *NA* (12/06/17 4:25 PM) IMMUNOLOGY Hep Bs Ag Negative Negative 12/06 [facility] *NA* (12/06/17 4:25 PM) CARDIAC Troponin-I 0.07 ng/mL 0.00 - 12/06 ENZYMES 0.40 [facility] CHEM PANEL Lactic Acid 1.1 mMol/L 0.5 - 2.2 12/06 Lvl /2017 [facility] Gram Stain Less Than 25 Squamous Epithelial Cells/Lpf 12/06 Report /2017 [facility] Many Leukocytes/Lpf Few Gram Negative Rods Few Gram Positive Cocci . Good Quality Specimen Culture: Normal 12/06 Respiratory Respirator [facility] w/Gram Stain y Nova Isolated Chest Chest Clinical Indication: - hypoxemic resp failure; 12/06 - Pulmonary Pulmonary /2017 - [facility] Embolism Embolism CTA Comparison: None [...] material was used for the exam. Dose: PTL=419 mGy-cm FINDINGS: LUNG PARENCHYMA AND PLEURA: There [...] 3. Moderate pericardial effusion. 4. Anasarca. SL: [id number] Chest Chest 1view Clinical Indication:27 years Male with - intubated - 1view DX DX /2017 - [facility] Comparison: Chest x-ray same date at 04 [...] effusion. HEMATOLOGY Anisocyte 1+ None Seen 12/06 [facility] *ABN* (12/06/17 4:08 AM) HEMATOLOGY Basophils # 0.1 K/CMM 0.0 - 0.2 12/06 [facility] CARDIAC Troponin-I 0.06 ng/mL 0.00 - 12/06 ENZYMES 0.40 [facility] CHEM PANEL Bili Direct null 0.0 - 0.3 12/06 [facility] CHEM PANEL Bili Unable to 0.0 - 1.0 12/06 Indirect Calculate /2017 [facility] LIPIDS VLDL 23 12/06 [facility] LIPIDS Chol 99 mg/dL <=199 12/06 mg/dL /2017 [facility] LIPIDS HDL 24 mg/dL >=61 mg/dL 12/06 [facility] LIPIDS LDL 52 mg/dL <=99 mg/dL 12/06 (Calculated) [facility] LIPIDS Trig 115 mg/dL <=149 12/06 mg/dL [facility] LIPIDS CHD Risk 4.12 4.00 - 12/06 7.30 [facility] SPECIAL Hgb A1C 7.8 % <=5.6 % 12/06 CHEMISTRY /2017 [facility] Chest Chest 1view Clinical Indication: History distress. Known heart failure. 12/06 - 1view DX DX /2017 - [facility] Comparison: None Read by: Dennis Gates MD Dictated Date/time: 12/06/17 05:49 FINDINGS: [...] congestion. Markedly enlarged cardiac silhouette. SL: KPATEL-M Laboratory Total 0.8 mg/dL 0.3 - 1.2 12/05 [facility] [address] Studies Bilirubin [facility] [place] [facility] Phosphorus 5.7 mg/dL 2.5 - 4.3 12/05 [facility] [address] Studies Level [facility] [place] [facility] Magnesium 2.0 mg/dL 1.8 - 2.5 12/05 [facility] [address] Studies Level /2018 [facility] [place] [facility] Glucose 139 mg/dL 65 - 120 12/[address] [facility] [address] Studies Level /2017 [facility] [place] [facility] Estimat 12 mL/min 90 12/[address] [facility] [address] Studies Glomerular /2017 [facility] Filtration [place] Rate Laboratory Creatinine 6.59 mg/dL 0.61 - 12/05 [facility] [address] Studies 1. [facility] [place] [facility] Calcium 8.6 mg/dL 8.5 - 10.5 12/05 [facility] [address] Studies Level /2017 [facility] [place] [facility] Blood Urea 50 mg/dL 6 - 20 12/05 [facility]. Studies Nitrogen /2017 [facility] [place] [facility] Sodium Level 132 mEq/L 135 - 145 12/[address] [facility] [address] Studies /2017 [facility] [place] [facility] Serum Total 8.5 g/dL 6.0 - 8.3 12/05 [facility]. Studies Protein /2017 [facility] [place] [facility] Potassium 4.5 mEq/L 3.6 - 5.0 12/05 [facility]. Studies Level /2017 [facility] Globulin 6.1 g/dL 2.3 - 3.5 12/05 [facility] [address] Studies /2017 [facility] Chloride 96 mEq/L 101 - 111 12/05 [facility]. Studies Level /2017 [facility] Carbon 25 mEq/L 21 - 31 12/05 [facility]. Studies Dioxide /2017 [facility] Aspartate 16 IU/L 10 - 42 12/05 [facility]. Studies Amino Transf /2017 [facility] (AST[facility]SGOT) [facility] Alkaline 88 IU/L 42 - 121 12/05 [facility]. Studies Phosphatase /2017 [facility] Albumin/Glob 0.4 1.1 - 1.8 12/05 [facility]. Studies ulin Ratio /2017 [facility] Albumin 2.4 g/dL 3.2 - 5.5 12/05 [facility]. Studies /2017 [facility] Alanine 10 IU/L 10 - 60 12/05 [facility]. Studies Aminotransfe /2017 [facility] Laboratory Ammonia 10 umol/L 10 - 45 12/05 [facility]. [facility] /2017 [facility] Other Total 8.9 g/dl 12 - 18 12/05 [facility]. Studies Hemoglobin [facility] - (Blood Gas) [place] [facility] Blood Gas pH 7.46 7.35 - 03 [facility]. Studies 7.45 [facility] [place] [facility] Blood Gas 81.6 mmHG 75 - 100 12/05 [facility]. Studies PO2 [facility] [place] [facility] Blood Gas 38.8 mmHG 35 - 45 12/05 [facility]. Studies PCO2 [facility] [place] [facility] Blood Gas 92.0 % 94 - 97 12/05 [facility]. Studies Oxyhemoglobi /2017 [facility] [place] [facility] Blood Gas 40.0 % 12/05 [facility] Studies Inspired /2017 [facility] Oxygen [place] [facility] Blood Gas 27.2 22 - 28 12/05 [facility]. Studies HCO3 mmol/L /2017 [facility] [place] [facility] Blood Gas 3.6 mmol/L 12/05 [facility] Studies Base Excess /2017 [facility] [place] [facility] Arterial 1.8 % 0 - 1.5 12/05 [facility]. Studies Blood /2017 [facility] Methemoglobi [place] [facility] Laboratory Arterial 1.6 % 0 - 1.5 12/05 [facility] Studies Blood /2017 [facility] Carboxyhemog [place] lobin Laboratory Arterial Bld 95.2 % 92 - 98.5 12/05 [facility] Studies O2 [facility] Saturation [place] (Measur) Laboratory Bedside 156 mg/dl 65 - 120 12/05 [facility] Studies Glucose /2017 [facility] [place] [facility] Blood Blood 12/05 [facility] Studies Morphology Morphology /2017 [facility] Comment Comment [place] [facility] White Blood 16.4 K/uL 4.3 - 10.9 12/05 [facility] Studies Count /2017 [facility] [place] [facility] Red Cell 19.2 % 12.1 - 12/05 [facility] Studies Distribution 15.2 /2017 [facility] Width [place] [facility] Red Blood 3.36 M/uL 4.33 - 12/05 [facility] Studies Count 5.43 /2017 [facility] [place] [facility] Platelet 403 K/uL 152 - 406 12/05 [facility]. Studies Count /2017 [facility] [place] [facility] Neutrophils 86.5 % 41.7 - 12/05 [facility]. Studies % 73.7 /2017 [facility] [place] [facility] Monocytes % 8.2 % 3.3 - 12.3 12/05 [facility]. Studies /2018 [facility] [place] [facility] Mean 7.8 fL 7.6 - 11.3 12/05 [facility] Studies Platelet /2017 [facility] Volume [place] [facility] Mean 75.3 fL 80 - 100 12/05 [facility] Studies Corpuscular /2017 [facility] Volume [place] [facility] Mean 31.4 g/dL 32.0 - 12/05 [facility]. Studies Corpuscular 36.0 [facility] Hemoglobin [place] [facility] Mean 23.6 pg 27.0 - 12/05 [facility]. Studies Corpuscular 35.0 /2017 [facility] Hemoglobin [place] [facility] Lymphocytes 3.8 % 15.3 - 12/05 [facility] [address] Studies % 44.8 /2017 [facility] [place] [facility] Hemoglobin 7.9 g/dL 13.6 - 12/05 [facility]. Studies 17.9 /2017 [facility] [place] [facility] Hematocrit 25.3 % 39.6 - 12/05 [facility]. Studies 49.0 /2017 [facility] [place] [facility] Eosinophils 0.2 % 0 - 4.4 12/05 [facility]. Studies % /2017 [facility] [place] [facility] Basophils % 1.3 % 0 - 1.3 12/05 [facility]. Studies /2017 [facility] [place] [facility] Absolute 14.2 K/uL 1.8 - 8.0 12/05 [facility] Studies Neutrophil [facility] [place] Laboratory Absolute 1.4 K/uL 0.1 - 1.3 12/05 [facility]. Studies Monocytes /2017 [facility] - (CBC) [place] Laboratory Absolute 0.6 K/uL 0.7 - 4.9 12/05 [facility]. Studies Lymphocytes /2017 [facility] - (CBC) [place] Laboratory Absolute 0.0 K/uL 0 - 0.5 12/05 [facility] Studies Eosinophils [facility] - (CBC) [place] Laboratory Absolute 0.2 K/uL 0 - 0.5 12/05 [facility]. Studies Basophils [facility] - (CBC) [place] Laboratory Lactic Acid 7.0 mg/dL 4.5 - 19.8 12/04 [facility]. Studies Level /2017 [facility] [place] Laboratory Lactate 139 IU/L 125 - 240 12/04 [facility]. Studies Dehydrogenas /2017 [facility] - e [place] Laboratory Hypochromasi Hypochroma 12/03 [facility]. Studies a steven [facility] [place] [facility] Clumped Clumped 12/03 [facility] Studies Platelets Platelets /2017 [facility] [place] Laboratory Anisocytosis Anisocytos 12/03 [facility]. Studies is [facility] [place] Laboratory Segmented 88 % 40 - 80 12/01 [facility]. Studies Neutrophils [facility] [place] Laboratory Monocytes 6 % 0 - 10 12/01 [facility]. Studies /2018 [facility] [place] [facility] Microcytosis Microcytos 12/01 [facility]. Studies is /2018 [facility] [place] Laboratory Lymphocytes 6 % 15 - 42 12/01 [facility]. Studies /2017 [facility] [place] Laboratory Vancomycin 7.8 ug/mL 5 - 20 11/30 [facility] Studies Level Trough /2017 [facility] [place] Laboratory Urine Total 2400 mL 11/29 [facility]. Studies Volume 24 /2017 [facility] - Hours [place] Laboratory Urine Total 4656 mg/24 11/29 [facility]. Studies Protein 24 h /2018 [facility] - Hour [place] Laboratory Urine 2702 mg/g 11/29 [facility] Studies Protein/Crea creat /2018 [facility] - tinine Ratio [place] 24hr Laboratory Urine Urine 11/29 [facility] Studies Protein Protein /2018 [facility] - Electrophore Electropho [place] sis Intrp resis Intrp Laboratory Urine PEP Urine PEP 11/29 [facility] Studies Abnormal Abnormal /2017 [facility] - Protein Band Protein [place] 3 Band 3 Laboratory Urine PEP Urine PEP 11/29 [facility] Studies Abnormal Abnormal /2017 [facility] - Protein Band Protein [place] 2 Band 2 Laboratory Urine PEP Urine PEP 11/29 [facility] Studies Abnormal Abnormal /2017 [facility] - Protein Band Protein [place] 1 Band 1 Laboratory Urine Gamma 29 % 11/29 [facility] Studies Globulin /2018 [facility] [place] [facility] Urine 1.72 g/24 11/29 [facility] Studies Creatinine h /2018 [facility] - 24 Hour [place] Laboratory Urine Beta 10 % 11/29 [facility] Studies Globulin /2018 [facility] [place] [facility] Urine 8 % 11/29 [facility] Studies [id number] /2018 [facility] - ulins [place] Laboratory Urine 5 % 11/29 [facility] Studies [id number]-9-[id number] /2018 [facility] - ulin [place] Laboratory Urine 48 % 11/29 [facility] Studies Albumin 24 /2017 [facility] - Hours [place] Laboratory Hepatitis B Hepatitis 11/28 [facility] Studies Surface B Surface /2018 [facility] - Antigen Antigen [place] Laboratory Hepatitis B null 11/28 [facility]. Studies Surface /2018 [facility] - Antibody, [place] Quant Laboratory Hepatitis B Hepatitis 11/28 [facility]. Studies Surface B Surface /2018 [facility] - Antibody Antibody [place] Laboratory Hepatitis B Hepatitis 11/28 St. Studies Surface Ag B Surface /2017 [facility] - Confirmation Ag [place] Confirmati on Laboratory Hepatitis B Hepatitis 11/28. Studies Core Total B Core /2017 [facility] - Antibody Total [place] Antibody Laboratory Hepatitis B Hepatitis 11/28 St[facility] Studies Core IgM B Core IgM /2017 [facility] - Antibody Antibody [place] Laboratory HIV-1 RNA, HIV-1 RNA, 11/28 St[facility] Studies Qualitat Qualitat /2017 [facility] - (TMA) (TMA) [place] Comment Comment Laboratory HIV (1&2) Ag HIV (1&2) 11/28. Studies and Ab, 4th Ag and Ab, /2017 [facility] - Generation 4th [place] Generation Laboratory HIV (1&2) Ab HIV (1&2) 11/28. Studies Differential Ab /2017 [facility] - Comment Differenti [place] al Comment Laboratory Complement 30 mg/dL 11/28 St[facility] Studies C4 [facility] - [place] Laboratory Complement 196 mg/dL 11/28 St[facility] Studies C3 [facility] [place] Laboratory Anti-Nuclear Anti-Nucle 11/28 St[facility] Studies Antibody ar [facility] - Screen Antibody [place] Screen Laboratory Anti-Nuclear Anti-Nucle 11/28 St[facility] Studies Antibody ar [facility] - Pattern 2 Antibody [place] Pattern 2 Laboratory Anti-Double 2 IU/mL 11/28 St[facility] Studies Strand DNA /2017 [facility] - Antibody [place] Laboratory Glomerular null 11/28 St[facility] Studies Basement [facility] - Membrane IgG [place] Ab Laboratory Anti-Protein null 11/28 St[facility] Studies ase 3 [facility] - (c-ANCA) [place] Laboratory Anti-Myelope null 11/28 St[facility] Studies roxidase Ab [facility] - (p-ANCA) [place] Laboratory Total 7.5 g/dL 11/28 St[facility] Studies Protein /2017 [facility] - [place] Laboratory Protein Protein 11/28 St[facility] Studies Electrophore Electropho [facility] - sis M-Jaime resis [place] 2 M-Jaime 2 Laboratory Protein Protein 11/28 St[facility] Studies Electrophore Electropho [facility] - sis M-Jaime resis [place] M-Jaime Laboratory Protein Protein 11/28 St[facility] Studies Electrophore Electropho [facility] - sis resis [place] Interpret Interpret Laboratory PEP Abnormal PEP 11/[address] [facility] [address] Studies Protein Band Abnormal /2017 [facility] - 3 Protein [place] Band 3 Laboratory Gamma 2.2 g/dL 11/28 St[facility] Studies Globulins /2017 [facility] [place] Laboratory Uvwom-4-Govc 1.0 g/dL 11/28 St[facility] Studies ulins /2017 [facility] - [place] Laboratory Gbasz-4-Wlse 0.7 g/dL 11/[address] [facility] [address] Studies ulins /2017 [facility] [place] Laboratory Hepatitis C null 11/28 St. Studies RNA (PCR) /2017 [facility] - log IUs/ml [place] Laboratory Hepatitis C null 11/28 [facility]. Studies RNA (PCR) /2017 [facility] - IUs/ml [place] Laboratory Transferrin Transferri 11/28 [facility]. Studies % Saturation n % /2017 [employer] [facility] - Saturation [place] Laboratory Transferrin 137 mg/dL 180 - 329 11/[address] [facility] [address] Studies /2017 [facility] [place] Laboratory Serum Folate 8.1 ng/ml 5.21 11/28 [facility] [address] Studies /2017 [facility] [place] Laboratory Iron Level null 45 - 182 11/[address] [facility] [address] Studies /2017 [facility] [place] Laboratory Ferritin 166.7 23.9 - 11/28 [facility] [address] Studies ng/ml 336.2 [employer] [facility] - [place] Laboratory Total Iron 192 ug/dL 250 - 460 11/28 [facility]. Studies Binding /2017 [facility] - Capacity [place] Laboratory Percent 1.08 % 0.4 - 2.05 11/28 [facility]. Studies Reticulocyte /2017 [facility] - Count [place] Laboratory Absolute 0.04 M/uL 0.02 - 11/28 [facility]. Studies Reticulocyte 0.11 [facility] - Count [place] Laboratory Creatine 3.6 ng/ml 0.3 - 4.0 11/27 [facility]. Studies Kinase MB /2017 [employer] [facility] - [place] Laboratory Creatine 277 IU/L 22 - 269 11/27 [facility]. Studies Kinase /2017 [employer] [facility] - [place] Laboratory Troponin I 0.08 ng/mL 11/[address] [facility] [address] Studies /2017 [facility] [place] Laboratory Triglyceride 88 mg/dL 35 - 160 11/[address] [facility] [address] Studies s Level /2017 [employer] [facility] - [place] Laboratory LDL 37 11/27 [facility]. Studies Cholesterol, /2017 [facility] - Calculated [place] Laboratory HDL 17 mg/dL 27 - 67 11/27 [facility]. Studies Cholesterol /2017 [facility] [place] Laboratory Cholesterol/ 4.24 11/27 [facility]. Studies HDL Ratio /2017 [facility] [place] Laboratory Cholesterol 72 mg/dL 11/27 [facility]. Studies Level /2017 [facility] [place] Laboratory Urine Random 155 mg/dl 11/26 [facility]. Studies Total /2017 [facility] - Protein [place] Laboratory Urine 56.5 mg/dL 11/26 [facility]. Studies Creatinine /2017 [facility] [place] Laboratory Hemoglobin 7.4 % 4 - 6.0 11/26 [facility]. Studies A1c /2017 [facility] [place] Laboratory Parathyroid 305 pg/mL 12 - 11/26 [facility]. Studies Hormone /2017 [facility] - (Intact) [place] Laboratory Thyroid 3.91 0.34 - 11/26 [facility] Studies Stimulating uIU/mL 5.60 [employer] [facility] - Hormone [place] (TSH) Laboratory Free 1.70 ng/dl 0.58 - 11/26 [facility] Studies Thyroxine 1.64 [facility] [place] Laboratory Procalcitoni 7.95 ng/mL 11/26 [facility]. Studies n /2017 [facility] [place] Laboratory B-Type 517 pg/ml 11/26 [facility]. Studies Natriuretic /2017 [facility] - Peptide [place] Laboratory Direct 0.3 mg/dL 0 - 0.2 11/26 [facility]. Studies Bilirubin /2017 [facility] [place] Laboratory Rapid 0.07 ng/mL 11/26 [facility] Studies Troponin I /2017 [facility] [place] Laboratory Prothrombin 19.0 9.5 - 12.5 11/26 [facility]. Studies Time SECONDS /2017 [facility] [place] Laboratory INR 1.60 11/26 [facility]. Studies Internationa /2017 [facility] - l Normalized [place] Ratio Vital Signs Vital Sign Value Date Comments Source Systolic (mm Hg) 137 12/20/2017 [facility] Diastolic (mm Hg) 89 12/20/2017 [facility] Respitory Rate 12 12/20/2017 [facility] Height 193.04 cm 12/20/2017 [facility] Systolic (mm Hg) 133 12/19/2017 [facility] Diastolic (mm Hg) 83 12/19/2017 [facility] Respitory Rate 18 12/19/2017 [facility] Systolic (mm Hg) 118 12/19/2017 [facility] Diastolic (mm Hg) 67 12/19/2017 [facility] Respitory Rate 16 12/19/2017 [facility] Height 193.04 cm 12/19/2017 [facility] Height 193.04 cm 12/19/2017 [facility] Heart Rate 97 12/18/2017 [facility] Temperature Oral (F) 99.4 F 12/17/2017 [facility] Temperature Oral (F) 100.8 F 12/15/2017 [facility] Heart Rate 95 12/15/2017 [facility] Heart Rate 91 12/13/2017 [facility] Weight 155.8 12/12/2017 [facility] BMI Calculated 42.94 12/07/2017 [facility] Weight 160 12/07/2017 [facility] Weight 160 12/06/2017 [facility] BMI Calculated 42.94 12/06/2017 [facility] BMI Calculated 42.94 12/06/2017 [facility] Heart Rate 101 12/06/[address] [facility] [place] Respitory Rate 31 12/06/[address] [facility] [place] Systolic (mm Hg) 193 12/06/[address] [facility] [place] Diastolic (mm Hg) 94 12/06/[address] [facility] [place] Temperature Oral (F) 97.1 F 12/05/[address] [facility] [place] Weight 382.72 12/05/[address] [facility] [place] Height 76 12/05/[address] [facility] [place] Encounters Location Location Encounter Encounter Reason Attending ADM DC Status Source Details Type Number For Provider Date Date Visit [facility] [id number] 11/26 12/[address] [facility]2017 [facility] [place] [facility] [id number] Mohammad 12/06 12/20 Crispin Phillip /2017 [facility] Procedures Procedure Code Date Perfomer Comments Source Spinal puncture, [address] [facility] lumbar, 8 diagnostic Intubation, [address] [facility] endotracheal, 8 emergency procedure Anaerobic Blood [facility] - [place] Aerobic Blood [facility] - [place] Head Brain Wo [id number] [facility] [place] Chest Single [id number] [facility] - [place] INSERTION OF [id number] [facility] TUN[facility]ELED [facility] - [place] HEMODIALYSIS.. Chest Single [id number] [facility] - [place] Fluoroscopy >[id number] [facility] Hr 8 - [place] Chest Single [id number] [facility] 8 [facility] [place] Chest Single [id number] [facility] [place]
--- OUTSIDE RECORDS SUMMARY | 2018-09-26 19:34 | XMS REPORT ---
:1990 [facility] Address [address] [place] [address] Dr. Gale [address] [place] [id number] Care Team Providers Name Role Phone ANNE [...] ID 2018-01-28 2018-01-28 Outpatient C [facility]ARDO [facility] [id number] 07:49:00 23:59:00 Results Test Description Test Time Test Comments Text Results Atomic Results Result Comments ANAEROBIC CULTURE 2018-02-05 10:36:00 Test Item Value Reference Range Comments CULTURE (BEAKER) (test cegn=9846) No anaerobes isolated POCT-GLUCOSE [id number] 18:17:00 Test Item Value Reference Range Comments POC-GLUCOSE METER (BEAKER) 129 mg/dL 70-110 TESTED AT [address] (test lnjb=5495) [facility] [address] BASIC METABOLIC [id number] 14:45:00 Test Item Value Reference Range Comments SODIUM (BEAKER) (test 138 meq/L 135-148 yios=695) POTASSIUM (BEAKER) (test 4.6 meq/L 3.6-5.5 vspy=045) CHLORIDE (BEAKER) (test 97 meq/L 98-106 anve=384) CO2 (BEAKER) (test 19 meq/L 20-29 naqn=255) BLOOD UREA NITROGEN 27 mg/dL 10-26 (BEAKER) (test supo=633) CREATININE (BEAKER) (test 7.19 mg/dL 0.50-1.20 zwcd=084) GLUCOSE RANDOM (BEAKER) 97 mg/dL 70-110 (test stnx=505) CALCIUM (BEAKER) (test 9.8 mg/dL 8.5-10.5 hogb=597) EGFR (BEAKER) (test 11 mL/min/1.73 sq m ESTIMATED GFR IS NOT ozpy=3679) ACCURATE CREATININE CLEARANCE IN PREDICTING GLOMERULAR FILTRATION RATE. ESTIMATED GFR IS NOT APPLICABLE FOR DIALYSIS PATIENTS. CBC W/PLT COUNT & AUTO [id number] 14:35:00 Test Item Value Reference Range Comments WHITE BLOOD CELL COUNT (BEAKER) (test zdmd=973) 7.8 K/ L 4.0-10.0 RED BLOOD CELL COUNT (BEAKER) (test tqyp=333) 3.06 M/ L 4.20-5.80 HEMOGLOBIN (BEAKER) (test tkgn=795) 8.7 GM/DL 13.0-16.8 HEMATOCRIT (BEAKER) (test tsvo=283) 26.1 % 40.0-50.0 MEAN CORPUSCULAR VOLUME (BEAKER) (test gmvg=932) 85.5 fL 82.0-98.0 MEAN CORPUSCULAR HEMOGLOBIN (BEAKER) (test 28.4 pg 27.0-33.0 eyoz=206) MEAN CORPUSCULAR HEMOGLOBIN CONC (BEAKER) (test 33.2 GM/DL 32.0-36.0 gwue=954) RED CELL DISTRIBUTION WIDTH (BEAKER) (test 19.5 % 10.3-14.2 fqah=820) PLATELET COUNT (BEAKER) (test djja=124) 264 K/CU MM 150-430 MEAN PLATELET VOLUME (BEAKER) (test ofpl=920) 7.4 fL 6.5-10.5 NEUTROPHILS RELATIVE PERCENT (BEAKER) (test 52 % cxmt=910) LYMPHOCYTES RELATIVE PERCENT (BEAKER) (test 29 % jfni=096) MONOCYTES RELATIVE PERCENT (BEAKER) (test 14 % qihm=373) EOSINOPHILS RELATIVE PERCENT (BEAKER) (test 5 % yjsj=331) BASOPHILS RELATIVE PERCENT (BEAKER) (test 1 % uosu=734) NEUTROPHILS ABSOLUTE COUNT (BEAKER) (test 4.20 K/ L 1.80-8.00 ildx=602) LYMPHOCYTES ABSOLUTE COUNT (BEAKER) (test 2.20 K/ L 1.48-4.50 rsvd=202) MONOCYTES ABSOLUTE COUNT (BEAKER) (test 1.10 K/ L 0.00-1.30 ymyk=836) EOSINOPHILS ABSOLUTE COUNT (BEAKER) (test 0.30 K/ L 0.00-0.50 fppa=301) BASOPHILS ABSOLUTE COUNT (BEAKER) (test 0.00 K/ L 0.00-0.20 ybdz=460) POCT-GLUCOSE [id number] 11:29:00 Test Item Value Reference Range Comments POC-GLUCOSE METER (BEAKER) 189 mg/dL 70-110 TESTED AT [address] (test nzcv=6064) [facility] [address] POCT-GLUCOSE [id number] 05:51:00 Test Item Value Reference Range Comments POC-GLUCOSE METER (BEAKER) 117 mg/dL 70-110 TESTED AT [address] (test zzyt=9577) [facility] [address] POCT-GLUCOSE [id number] 21:42:00 Test Item Value Reference Range Comments POC-GLUCOSE METER (BEAKER) 120 mg/dL 70-110 TESTED AT [address] (test dcoc=8291) [facility] [address] POCT-GLUCOSE [id number] 20:08:00 Test Item Value Reference Range Comments POC-GLUCOSE METER (BEAKER) 128 mg/dL 70-110 TESTED AT [address] (test ylvp=9977) [facility] [address] [id number] 17:01:00 Test Item Value Reference Range Comments PHOSPHORUS (BEAKER) (test dakv=070) 6.9 mg/dL 2.5-4.5 POCT-GLUCOSE [id number] 12:06:00 Test Item Value Reference Range Comments POC-GLUCOSE METER (BEAKER) 122 mg/dL 70-110 TESTED AT [address] (test ihin=9618) [facility] [address] TISSUE [id number] 09:54:00Surgical Pathology Report Case: [id number] Authorizing Provider: Lisa Greenberg MD Collected: 01/31/2018 1110 Ordering Location: [facility] Med Surg 5th Floor Received: 01/31/2018 1249 Pathologist: Sherri Zarate MD Specimen: Leg, Left Lower, NECROTIC TISSUE LEFT LOWER LEG SKIN AND SOFT TISSUE, LEFT LOWER LEG, EXCISION: - SKIN AND SUBCUTIS WITH NECROSIS, ACUTE AND CHRONIC INFLAMMATION, BACTERIAL COLONIZATION AND CALCIFICATION OF BLOOD VESSELS, CONSISTENT WITH CALCIPHYLAXIS (SEE COMMENT) Signing Pathologist Direct Phone Line: [phone] signed by Sherri Zarate MD on 02/03/2018 at 9:54 AMCalcification of small and medium sized blood vessels are identified along with extensive necrosis of tissue. 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 [id number] givenLeg, left lower, necrotic tissue left lower legThe specimen is received in fixative and designated as "leg, left lower" and consists of skin and subcutaneous tissue ( 6.0 x 4.0 x 2.0 cm). The overlying skin is brown-patterson and smooth. No discrete lesions. The underlying soft tissue is soft and necrotic. Twitchell Operator sectionsof the skin and soft tissue are submitted into A1 to A3. MG/pl Performed [facility], Department of Pathology, [address] [place] [address], Jouxet[employer]i. [facility], Department of Pathology, [address] [place] [address], Tel . [facility], Department of Pathology, [address] [place] [address], URG W/PLT COUNT & AUTO [id number] 09:08:00 Test Item Value Reference Range Comments WHITE BLOOD CELL COUNT (BEAKER) (test yrbo=932) 6.8 K/ L 4.0-10.0 RED BLOOD CELL COUNT (BEAKER) (test mywi=092) 2.19 M/ L 4.20-5.80 HEMOGLOBIN (BEAKER) (test mgfz=226) 6.2 GM/DL 13.0-16.8 HEMATOCRIT (BEAKER) (test zgxb=746) 18.8 % 40.0-50.0 MEAN CORPUSCULAR VOLUME (BEAKER) (test grly=147) 85.9 fL 82.0-98.0 MEAN CORPUSCULAR HEMOGLOBIN (BEAKER) (test 28.4 pg 27.0-33.0 spbb=859) MEAN CORPUSCULAR HEMOGLOBIN CONC (BEAKER) (test 33.1 GM/DL 32.0-36.0 xrxc=237) RED CELL DISTRIBUTION WIDTH (BEAKER) (test 22.6 % 10.3-14.2 upfb=218) PLATELET COUNT (BEAKER) (test jmmb=152) 198 K/CU MM 150-430 MEAN PLATELET VOLUME (BEAKER) (test tktl=771) 7.1 fL 6.5-10.5 NUCLEATED RED BLOOD CELLS (BEAKER) (test 0 /100 WBC 0-0 vkek=920) NEUTROPHILS RELATIVE PERCENT (BEAKER) (test 63 % vyoe=945) LYMPHOCYTES RELATIVE PERCENT (BEAKER) (test 19 % lcni=459) MONOCYTES RELATIVE PERCENT (BEAKER) (test 13 % ptvd=536) EOSINOPHILS RELATIVE PERCENT (BEAKER) (test 5 % dgvs=291) BASOPHILS RELATIVE PERCENT (BEAKER) (test 1 % rohh=672) NEUTROPHILS ABSOLUTE COUNT (BEAKER) (test 4.30 K/ L 1.80-8.00 xwpy=874) LYMPHOCYTES ABSOLUTE COUNT (BEAKER) (test 1.30 K/ L 1.48-4.50 yxqw=483) MONOCYTES ABSOLUTE COUNT (BEAKER) (test 0.90 K/ L 0.00-1.30 qrpv=448) EOSINOPHILS ABSOLUTE COUNT (BEAKER) (test 0.30 K/ L 0.00-0.50 angs=391) BASOPHILS ABSOLUTE COUNT (BEAKER) (test 0.00 K/ L 0.00-0.20 qsbw=599) (MANUAL DIFFERENTIAL)2018-02-03 09:08:00 Test Item Value Reference Range Comments TOTAL COUNTED (BEAKER) (test xwes=0483) WBC MORPHOLOGY (BEAKER) (test nqcr=747) Normal PLT MORPHOLOGY (BEAKER) (test ccmb=845) Normal ANISOCYTOSIS (BEAKER) (test enna=433) 1+ few BASIC METABOLIC [id number] 08:39:00 Test Item Value Reference Range Comments SODIUM (BEAKER) (test 131 meq/L 135-148 vinp=799) POTASSIUM (BEAKER) (test 5.0 meq/L 3.6-5.5 velk=604) CHLORIDE (BEAKER) (test 97 meq/L 98-106 vrdm=971) CO2 (BEAKER) (test 25 meq/L 20-29 phpf=726) BLOOD UREA NITROGEN 41 mg/dL 10-26 (BEAKER) (test eslt=033) CREATININE (BEAKER) (test 9.74 mg/dL 0.50-1.20 luwp=449) GLUCOSE RANDOM (BEAKER) 88 mg/dL 70-110 (test dxpp=002) CALCIUM (BEAKER) (test 8.7 mg/dL 8.5-10.5 qokg=599) EGFR (BEAKER) (test 8 mL/min/1.73 sq m ESTIMATED GFR IS NOT cbgm=6572) ACCURATE CREATININE CLEARANCE IN PREDICTING GLOMERULAR FILTRATION RATE. ESTIMATED GFR IS NOT APPLICABLE FOR DIALYSIS PATIENTS. HEMOGLOBIN AND [id number] 08:25:00 Test Item Value Reference Range Comments HEMOGLOBIN (BEAKER) (test umht=311) 6.5 GM/DL 13.0-16.8 HEMATOCRIT (BEAKER) (test mmiu=934) 19.0 % 40.0-50.0 POCT-GLUCOSE [id number] 21:42:00 Test Item Value Reference Range Comments POC-GLUCOSE METER (BEAKER) 121 mg/dL 70-110 TESTED AT [address] (test loeu=5349) [facility] [address] POCT-GLUCOSE [id number] 16:40:00 Test Item Value Reference Range Comments POC-GLUCOSE METER (BEAKER) 134 mg/dL 70-110 TESTED AT [address] (test ssms=9275) [facility] [address] POCT-GLUCOSE [id number] 12:00:00 Test Item Value Reference Range Comments POC-GLUCOSE METER (AKER) 84 mg/dL 70-110 TESTED AT [address] (test lhzj=5286) [facility] [address] SURGICALLY OBTAINED CULTURE + GRAM [id number] 08:12:00 Test Item Value Reference Range Comments CULTURE ([facility]) (test METHICILLIN RESISTANT 2+ Methicillin tynt=1191) STAPHYLOCOCCUS AUREUS resistant Staphylococcus aureus Ciprofloxacin (test code=7) Clindamycin (test code=10) Daptomycin (test code=59) Erythromycin (test code=4) Gentamicin (test code=18) Levofloxacin (test code=22) Linezolid (test code=40) Moxifloxacin (test code=36) Nitrofurantoin (test code=23) Oxacillin (test code=14) Rifampin (test code=43) Tetracycline (test code=2) Tigecycline (test yftw=145) Trimethoprim + Sulfamethoxazole (test code=47) Vancomycin (test code=13) GRAM STAIN RESULT 4+ WBCs (BEAKER) (test mlby=6649) GRAM STAIN RESULT 1+ gram positive cocci (BEAKER) (test in clusters ipva=236929) CBC W/PLT COUNT & AUTO [id number] 06:19:00 Test Item Value Reference Range Comments WHITE BLOOD CELL COUNT (BEAKER) (test acla=961) 7.9 K/ L 4.0-10.0 RED BLOOD CELL COUNT (BEAKER) (test zsux=653) 2.16 M/ L 4.20-5.80 HEMOGLOBIN (BEAKER) (test bbkx=934) 6.2 GM/DL 13.0-16.8 HEMATOCRIT (BEAKER) (test gawk=940) 18.9 % 40.0-50.0 MEAN CORPUSCULAR VOLUME (BEAKER) (test jxsq=309) 87.2 fL 82.0-98.0 MEAN CORPUSCULAR HEMOGLOBIN (BEAKER) (test 28.7 pg 27.0-33.0 lnme=056) MEAN CORPUSCULAR HEMOGLOBIN CONC (BEAKER) (test 32.9 GM/DL 32.0-36.0 eizp=633) RED CELL DISTRIBUTION WIDTH (BEAKER) (test 23.4 % 10.3-14.2 coqq=497) PLATELET COUNT (BEAKER) (test oifw=895) 203 K/CU MM 150-430 MEAN PLATELET VOLUME (BEAKER) (test rixk=242) 7.2 fL 6.5-10.5 NUCLEATED RED BLOOD CELLS (BEAKER) (test 0 /100 WBC 0-0 oyev=216) NEUTROPHILS RELATIVE PERCENT (BEAKER) (test 64 % xmvr=218) LYMPHOCYTES RELATIVE PERCENT (BEAKER) (test 18 % dsgh=896) MONOCYTES RELATIVE PERCENT (BEAKER) (test 14 % qmig=278) EOSINOPHILS RELATIVE PERCENT (BEAKER) (test 4 % raix=965) BASOPHILS RELATIVE PERCENT (BEAKER) (test 1 % hfko=695) NEUTROPHILS ABSOLUTE COUNT (BEAKER) (test 5.00 K/ L 1.80-8.00 xbig=050) LYMPHOCYTES ABSOLUTE COUNT (BEAKER) (test 1.40 K/ L 1.48-4.50 wcrx=917) MONOCYTES ABSOLUTE COUNT (BEAKER) (test 1.10 K/ L 0.00-1.30 nejc=163) EOSINOPHILS ABSOLUTE COUNT (BEAKER) (test 0.30 K/ L 0.00-0.50 nlyz=791) BASOPHILS ABSOLUTE COUNT (BEAKER) (test 0.00 K/ L 0.00-0.20 tuzw=355) POCT-GLUCOSE [id number] 06:01:00 Test Item Value Reference Range Comments POC-GLUCOSE METER (BEAKER) 122 mg/dL 70-110 TESTED AT [address] (test mkwg=0210) [facility] [address] POCT-GLUCOSE [id number] 21:23:00 Test Item Value Reference Range Comments POC-GLUCOSE METER (BEAKER) 178 mg/dL 70-110 TESTED AT [address] (test ikze=6544) [facility] [address] POCT-GLUCOSE [id number] 16:29:00 Test Item Value Reference Range Comments POC-GLUCOSE METER (BEAKER) 165 mg/dL 70-110 TESTED AT [address] (test wmky=0902) [facility] [address] POCT-GLUCOSE [id number] 11:59:00 Test Item Value Reference Range Comments POC-GLUCOSE METER (BEAKER) 131 mg/dL 70-110 TESTED AT [address] (test odur=0283) [facility] [address] POCT-GLUCOSE [id number] 05:22:00 Test Item Value Reference Range Comments POC-GLUCOSE METER (BEAKER) 104 mg/dL 70-110 TESTED AT [address] (test lnpc=2270) [facility] [address] POCT-GLUCOSE [id number] 22:48:00 Test Item Value Reference Range Comments POC-GLUCOSE METER (BEAKER) 122 mg/dL 70-110 TESTED AT [address] (test sltf=0201) [facility] [address] HEPATITIS B SURFACE [id number] 20:44:00 Test Item Value Reference Range Comments HEPATITIS B SURFACE ANTIBODY (BEAKER) (test 10.2 mIU/mL <8.0 oeyn=143) POCT-GLUCOSE [id number] 18:00:00 Test Item Value Reference Range Comments POC-GLUCOSE METER (BEAKER) 127 mg/dL 70-110 TESTED AT [facility] [address] (test fwtd=2308) [address] [facility] [address] BASIC METABOLIC [id number] 11:02:00 Test Item Value Reference Range Comments SODIUM (BEAKER) (test 137 meq/L 135-148 qkrp=122) POTASSIUM (BEAKER) (test 3.5 meq/L 3.6-5.5 vgid=457) CHLORIDE (BEAKER) (test 98 meq/L 98-106 sezu=698) CO2 (BEAKER) (test 27 meq/L 20-29 bwuq=370) BLOOD UREA NITROGEN 11 mg/dL 10-26 (BEAKER) (test myru=772) CREATININE (BEAKER) (test 3.99 mg/dL 0.50-1.20 emzg=313) GLUCOSE RANDOM (BEAKER) 84 mg/dL 70-110 (test cgqh=187) CALCIUM (BEAKER) (test 9.6 mg/dL 8.5-10.5 eagw=991) EGFR (BEAKER) (test 22 mL/min/1.73 sq m ESTIMATED GFR IS NOT zczi=8541) ACCURATE CREATININE CLEARANCE IN PREDICTING GLOMERULAR FILTRATION RATE. ESTIMATED GFR IS NOT APPLICABLE FOR DIALYSIS PATIENTS. CBC W/PLT COUNT & AUTO [id number] 10:36:00 Test Item Value Reference Range Comments WHITE BLOOD CELL COUNT (BEAKER) (test gekf=647) 6.7 K/ L 4.0-10.0 RED BLOOD CELL COUNT (BEAKER) (test mozg=858) 2.89 M/ L 4.20-5.80 HEMOGLOBIN (BEAKER) (test zipl=165) 8.2 GM/DL 13.0-16.8 HEMATOCRIT (BEAKER) (test ozyk=455) 24.9 % 40.0-50.0 MEAN CORPUSCULAR VOLUME (BEAKER) (test mjxe=776) 86.1 fL 82.0-98.0 MEAN CORPUSCULAR HEMOGLOBIN (BEAKER) (test 28.3 pg 27.0-33.0 usoq=671) MEAN CORPUSCULAR HEMOGLOBIN CONC (BEAKER) (test 32.9 GM/DL 32.0-36.0 kine=867) RED CELL DISTRIBUTION WIDTH (BEAKER) (test 24.6 % 10.3-14.2 afby=669) PLATELET COUNT (BEAKER) (test dckx=625) 234 K/CU MM 150-430 MEAN PLATELET VOLUME (BEAKER) (test bdnx=333) 7.3 fL 6.5-10.5 NUCLEATED RED BLOOD CELLS (BEAKER) (test 0 /100 WBC 0-0 xwpo=495) NEUTROPHILS RELATIVE PERCENT (BEAKER) (test 64 % jxij=520) LYMPHOCYTES RELATIVE PERCENT (BEAKER) (test 20 % xxvi=649) MONOCYTES RELATIVE PERCENT (BEAKER) (test 11 % sdux=250) EOSINOPHILS RELATIVE PERCENT (BEAKER) (test 4 % rzyr=604) BASOPHILS RELATIVE PERCENT (BEAKER) (test 1 % gtgs=636) NEUTROPHILS ABSOLUTE COUNT (BEAKER) (test 4.30 K/ L 1.80-8.00 xovs=352) LYMPHOCYTES ABSOLUTE COUNT (BEAKER) (test 1.30 K/ L 1.48-4.50 zbnt=757) MONOCYTES ABSOLUTE COUNT (BEAKER) (test 0.80 K/ L 0.00-1.30 flfh=441) EOSINOPHILS ABSOLUTE COUNT (BEAKER) (test 0.30 K/ L 0.00-0.50 lotv=724) BASOPHILS ABSOLUTE COUNT (BEAKER) (test 0.00 K/ L 0.00-0.20 flfw=708) (MANUAL DIFFERENTIAL)2018-01-31 10:36:00 Test Item Value Reference Range Comments TOTAL COUNTED (BEAKER) (test tsyj=7337) WBC MORPHOLOGY (BEAKER) (test cbjz=224) Normal PLT MORPHOLOGY (BEAKER) (test tpcm=696) Normal ANISOCYTOSIS (BEAKER) (test aizr=135) 1+ few MICROCYTES (BEAKER) (test rhaz=389) 1+ few POIKILOCYTES (BEAKER) (test iqyj=814) 1+ few HEPATITIS B SURFACE [id number] 07:50:00 Test Item Value Reference Range Comments HEPATITIS B SURFACE ANTIGEN (2) (BEAKER) (test Nonreactive Nonreactive odhp=4655) BASIC METABOLIC [id number] 07:45:00 Test Item Value Reference Range Comments SODIUM (BEAKER) (test 133 meq/L 135-148 geik=583) POTASSIUM (BEAKER) (test 4.4 meq/L 3.6-5.5 voju=608) CHLORIDE (BEAKER) (test 97 meq/L 98-106 ebze=394) CO2 (BEAKER) (test 25 meq/L 20-29 gjaa=331) BLOOD UREA NITROGEN 25 mg/dL 10-26 (BEAKER) (test alio=878) CREATININE (BEAKER) (test 7.52 mg/dL 0.50-1.20 olzg=977) GLUCOSE RANDOM (BEAKER) 89 mg/dL 70-110 (test vbym=190) CALCIUM (BEAKER) (test 9.8 mg/dL 8.5-10.5 jbag=402) EGFR (BEAKER) (test 10 mL/min/1.73 sq m ESTIMATED GFR IS NOT cyrf=5150) ACCURATE CREATININE CLEARANCE IN PREDICTING GLOMERULAR FILTRATION RATE. ESTIMATED GFR IS NOT APPLICABLE FOR DIALYSIS PATIENTS. POCT-GLUCOSE [id number] 06:32:00 Test Item Value Reference Range Comments POC-GLUCOSE METER (BEAKER) 82 mg/dL 70-110 TESTED AT [address] (test hfqu=5071) [facility] [address] POCT-GLUCOSE [id number] 17:47:00 Test Item Value Reference Range Comments POC-GLUCOSE METER (BEAKER) 106 mg/dL 70-110 TESTED AT [address] (test mgei=5052) [facility] [address] CBC W/PLT COUNT & AUTO [id number] 16:41:00 Test Item Value Reference Range Comments WHITE BLOOD CELL COUNT (BEAKER) (test jhru=237) 8.0 K/ L 4.0-10.0 RED BLOOD CELL COUNT (BEAKER) (test msyj=554) 3.02 M/ L 4.20-5.80 HEMOGLOBIN (BEAKER) (test jrtp=868) 8.5 GM/DL 13.0-16.8 HEMATOCRIT (BEAKER) (test qxih=365) 25.9 % 40.0-50.0 MEAN CORPUSCULAR VOLUME (BEAKER) (test iyiv=783) 85.7 fL 82.0-98.0 MEAN CORPUSCULAR HEMOGLOBIN (BEAKER) (test 28.3 pg 27.0-33.0 gynl=547) MEAN CORPUSCULAR HEMOGLOBIN CONC (BEAKER) (test 33.0 GM/DL 32.0-36.0 zvso=184) RED CELL DISTRIBUTION WIDTH (BEAKER) (test 24.9 % 10.3-14.2 muir=880) PLATELET COUNT (BEAKER) (test aexi=575) 272 K/CU MM 150-430 MEAN PLATELET VOLUME (BEAKER) (test atol=069) 6.7 fL 6.5-10.5 NUCLEATED RED BLOOD CELLS (BEAKER) (test 0 /100 WBC 0-0 gdqq=691) NEUTROPHILS RELATIVE PERCENT (BEAKER) (test 65 % todb=398) LYMPHOCYTES RELATIVE PERCENT (BEAKER) (test 19 % mljz=124) MONOCYTES RELATIVE PERCENT (BEAKER) (test 12 % ndmz=479) EOSINOPHILS RELATIVE PERCENT (BEAKER) (test 3 % ifyi=508) BASOPHILS RELATIVE PERCENT (BEAKER) (test 1 % wyea=940) NEUTROPHILS ABSOLUTE COUNT (BEAKER) (test 5.20 K/ L 1.80-8.00 uezz=293) LYMPHOCYTES ABSOLUTE COUNT (BEAKER) (test 1.50 K/ L 1.48-4.50 rmyo=160) MONOCYTES ABSOLUTE COUNT (BEAKER) (test 1.00 K/ L 0.00-1.30 bzdt=263) EOSINOPHILS ABSOLUTE COUNT (BEAKER) (test 0.20 K/ L 0.00-0.50 hsyv=581) BASOPHILS ABSOLUTE COUNT (BEAKER) (test 0.00 K/ L 0.00-0.20 wpcs=858) (MANUAL DIFFERENTIAL)2018-01-30 16:41:00 Test Item Value Reference Range Comments TOTAL COUNTED (BEAKER) (test ahne=4807) WBC MORPHOLOGY (BEAKER) (test bfdx=754) Normal PLT MORPHOLOGY (BEAKER) (test wkox=827) Normal ANISOCYTOSIS (BEAKER) (test gryu=849) 2+ moderate HYPOCHROMIA (BEAKER) (test esrx=526) 2+ moderate BASIC METABOLIC [id number] 16:21:00 Test Item Value Reference Range Comments SODIUM (BEAKER) (test 133 meq/L 135-148 axqd=968) POTASSIUM (BEAKER) (test 4.5 meq/L 3.6-5.5 lopx=593) CHLORIDE (BEAKER) (test 96 meq/L 98-106 dfgn=518) CO2 (BEAKER) (test 26 meq/L 20-29 kgrh=236) BLOOD UREA NITROGEN 21 mg/dL 10-26 (BEAKER) (test ttxc=807) CREATININE (BEAKER) (test 6.41 mg/dL 0.50-1.20 owwq=955) GLUCOSE RANDOM (BEAKER) 93 mg/dL 70-110 (test xlle=824) CALCIUM (BEAKER) (test 10.0 mg/dL 8.5-10.5 nnlk=264) EGFR (BEAKER) (test 13 mL/min/1.73 sq m ESTIMATED GFR IS NOT oyxq=7403) ACCURATE CREATININE CLEARANCE IN PREDICTING GLOMERULAR FILTRATION RATE. ESTIMATED GFR IS NOT APPLICABLE FOR DIALYSIS PATIENTS. PROTHROMBIN TIME/[id number] 16:17:00 Test Item Value Reference Range Comments PROTIME (BEAKER) (test zile=461) 11.2 seconds 9.3-12.0 INR (BEAKER) (test mtob=436) 1.0 <=5.9 RECOMMENDED COUMADIN/WARFARIN INR THERAPY RANGESSTANDARD DOSE: 2.0 - 3.0 Includes: PROPHYLAXIS forvenous thrombosis, systemic embolization; TREATMENT for venous thrombosis and/or pulmonary embolus.HIGH RISK: Target INR is 2.5-3.5 for patients with mechanical heart valves.
[2018-09-26] MEDS ORDERED: HYDRALAZINE HCL 10 MG TABLET ONE ×2 (23:08→23:58)
[2018-09-26] MEDS ORDERED: AMLODIPINE 5 MG TAB ONE (23:08)
[2018-09-26] MEDS ORDERED: LOSARTAN POTASSIUM 50 MG TABLET ONE (23:36)
[2018-09-27] MEDS ORDERED: DESMOPRESSIN 4 MCG/ML AMP ONE (01:35)
[2018-09-27] MEDS ORDERED: NA CHLORIDE 0.9% 50 ML IV ONE (01:45)
--- NOTE | 2018-09-27 04:34 | ER ---
Nurse's Notes [facility] Name: Rodrigue Arreola Jr Age: 27 yrs Sex: Male : 1990 Arrival Date: 09/26/2018 Time: 19:24 Bed 23 Private MD: Diagnosis: Bleeding from dialysis catheter ( Resolved ) Presentation: 09/26 19:45 Presenting complaint: Patient states: He had his dialysis catheter changed today at aj1 1400 and the site has been bleeding since that time. Patient denies pain at this time. Transition of care: patient was not received from another setting of care. Onset of symptoms was September 26, 2018 at 14:00. Risk Assessment: Do you want to hurt yourself or someone else? Patient reports no desire to harm self or others. Initial Sepsis Screen: Does the patient meet any 2 criteria? No. Patient's initial sepsis screen is negative. Does the patient have a suspected source of infection? No. Patient's initial sepsis screen is negative. Care prior to arrival: None. 19:45 Method Of Arrival: Ambulatory aj1 19:45 Acuity: DAVID 3 aj1 Triage Assessment: 19:49 General: Appears in no apparent distress. uncomfortable, Behavior is calm, cooperative, aj1 appropriate for age. Pain: Denies pain. Neuro: Level of Consciousness is awake, alert, obeys commands. Cardiovascular: Patient's skin is warm and dry. Respiratory: Airway is patent Respiratory effort is even, unlabored, Respiratory pattern is regular, symmetrical. Historical: - Allergies: 19:49 No Known Allergies; aj1 - Home Meds: 19:49 amlodipine oral [Active]; Clonazepam Oral [Active]; Keppra Oral [Active]; Lipitor Oral aj1 [Active]; losartan Oral [Active]; Metoprolol Tartrate Oral [Active]; Novolog Sub-Q [Active]; - PMHx: 19:49 CHF; CVA; Diabetes - IDDM; Dialysis; Saturday, , Saturday; ESRD; Hypertension; aj1 Hypothyroidism; - Immunization history:: Flu vaccine is up to date. - Social history:: Smoking status: Patient/guardian denies using tobacco. - Ebola Screening: : Patient denies travel to an Ebola-affected area in the 21 days before illness onset. Screenin:28 Abuse screen: Denies threats or abuse. Nutritional screening: No deficits noted. ea Tuberculosis screening: No symptoms or risk factors identified. Fall Risk None identified. Assessment: 21:40 General: Appears in no apparent distress. Behavior is calm, cooperative, appropriate ea for age. Pain: Denies pain. Neuro: Level of Consciousness is awake, alert, obeys commands, Oriented to person, place, time, situation. Cardiovascular: Patient's skin is warm and dry. Dialysis shunt: in the anterior aspect of left upper chest, Tesio shunt, pt reports he accidentally scratched the catheter and site started to bleed. . Respiratory: Airway is patent Respiratory effort is even, unlabored, Respiratory pattern is regular, symmetrical. GI: No signs and/or symptoms were reported involving the gastrointestinal system. : No signs and/or symptoms were reported regarding the genitourinary system. Derm: No signs and/or symptoms reported regarding the dermatologic system. Skin is pink, warm \T\ dry. Musculoskeletal: Circulation, motion, and sensation intact. 22:29 Reassessment: Patient and/or family updated on plan of care and expected duration. Pain ea level reassessed. Patient is alert, oriented x 3, equal unlabored respirations, skin warm/dry/pink. Verbal order for cleansing area and applying surgi seal. Pt tolerated well. 23:50 Reassessment: Patient and/or family updated on plan of care and expected duration. Pain ea level reassessed. Patient is alert, oriented x 3, equal unlabored respirations, skin warm/dry/pink. Bleeding noted to Tesio site, provider notified, pt denies pain to site. 09/27 00:00 Reassessment: Patient and/or family updated on plan of care and expected duration. Pain ea level reassessed. Patient is alert, oriented x 3, equal unlabored respirations, skin warm/dry/pink. 01:50 Reassessment: Patient and/or family updated on plan of care and expected duration. Pain ea level reassessed. Patient is alert, oriented x 3, equal unlabored respirations, skin warm/dry/pink. Patient denies pain at this time. 02:35 Reassessment: Patient and/or family updated on plan of care and expected duration. Pain ea level reassessed. Patient is alert, oriented x 3, equal unlabored respirations, skin warm/dry/pink. Tesio site bleeding decreased, will continue to monitor site. Pt denies pain or discomfort to area. 03:30 Reassessment: Patient and/or family updated on plan of care and expected duration. Pain ea level reassessed. Patient is alert, oriented x 3, equal unlabored respirations, skin warm/dry/pink. Tesio dressing intact, bleeding stopped at this time, will continue to monitor site. Patient denies pain at this time. Patient states symptoms have improved. 04:45 Reassessment: Patient and/or family updated on plan of care and expected duration. Pain ea level reassessed. Patient is alert, oriented x 3, equal unlabored respirations, skin warm/dry/pink. Discharge instructions given to patient, verbalized the understanding of instruction. Patient denies pain at this time. Patient states symptoms have improved. Vital Signs: 09/26 19:49 BP 146 / 100; Pulse 86; Resp 18; Temp 97.6; Pulse Ox 100% on R/A; Weight 129.27 kg (R); aj1 Height 6 ft. 4 in. (193.04 cm) (R); Pain 0/10; 21:45 BP 164 / 100; Pulse 70; Resp 18; Pulse Ox 98% ; ea 22:30 BP 160 / 117; Pulse 75; Resp 18; Pulse Ox 99% ; ea 22:45 BP 166 / 118; Pulse 77; Resp 17; Pulse Ox 99% on R/A; ea 23:57 BP 159 / 100; Pulse 90; Resp 18; Pulse Ox 98% on R/A; ea 09/27 00:20 BP 169 / 112; Pulse 80; Resp 20; Pulse Ox 99% ; ea 00:40 BP 166 / 107; Pulse 82; Resp 18; Pulse Ox 100% ; ea 02:15 BP 160 / 108; Pulse 95; Resp 16; Pulse Ox 99% ; ea 02:34 BP 140 / 96; Pulse 96; Resp 18; Pulse Ox 97% on R/A; ea 02:45 BP 125 / 94; Pulse 95; Resp 19; Pulse Ox 97% ; ea 03:29 BP 138 / 84; Pulse 97; Resp 18; Pulse Ox 98% on R/A; ea 04:41 BP 131 / 104; Pulse 86; Resp 18; Pulse Ox 98% ; Pain 0/10; ea 09/26 19:49 Body Mass Index 34.69 (129.27 kg, 193.04 cm) aj1 ED Course: 09/26 19:24 Patient arrived in ED. ds1 19:48 Triage completed. aj1 19:49 Arm band placed on Patient placed in waiting room, Patient notified of wait time. aj1 21:40 Patient has correct armband on for positive identification. Bed in low position. Call ea light in reach. Side rails up X 1. 21:44 Shawn Murphy MD is Attending Physician. [email or web address] 22:25 Lluvia Olsen RN is Primary Nurse. ea 09/27 01:33 Inserted saline lock: 22 gauge in right antecubital area, using aseptic technique. ea 04:42 No provider procedures requiring assistance completed. IV discontinued, intact, ea bleeding controlled, No redness/swelling at site. Pressure dressing applied. Administered Medications: 09/26 23:13 Drug: amLODIPine 5 mg Route: PO; ea 09/27 00:00 Follow up: Response: No adverse reaction ea 09/26 23:13 Drug: HydrALAZINE 25 mg Route: PO; ea 09/27 00:00 Follow up: Response: No adverse reaction ea 09/26 23:39 Drug: Losartan 50 mg Route: PO; ea 09/27 00:00 Follow up: Response: No adverse reaction ea 09/26 23:39 Not Given (Patient Refused): Trandate 20 mg IVP once; Over 2 minutes ea 23:45 Drug: HydrALAZINE 25 mg Route: PO; ea 09/27 00:57 Follow up: Response: No adverse reaction; Blood pressure is lowered ea 09/26 23:50 Drug: Nitroglycerin 0.4 mg Route: Sublingual; ea 09/27 00:57 Follow up: Response: No adverse reaction; Blood pressure is lowered ea 01:50 Drug: Desmopressin 24 mcg Route: IV; Rate: calculated rate; Site: right antecubital; ea 02:21 Follow up: Response: No adverse reaction; IV Status: Completed infusion ea Outcome: 04:33 Discharge ordered by . [email or web address] 04:46 Discharged to home ambulatory, with significant other. ea 04:46 Condition: improved 04:46 Discharge instructions given to patient, Instructed on discharge instructions, follow up and referral plans. Demonstrated understanding of instructions. 04:46 Patient left the ED. ea Signatures: Marisol Arreola RN RN aj1 Shawn Murphy MD MD pkl [place], Betzy ds1 Lluvia Olsen, RN RN ea
--- NOTE | 2018-09-27 04:35 | EDPHYS ---
Physician Documentation [facility] Name: Rodrigue Arreola Jr Age: 27 yrs Sex: Male : 1990 Arrival Date: 09/26/2018 Time: 19:24 Bed 23 Private MD: ED Physician Shawn Murphy HPI: 09/26 21:59 This 27 yrs old Black Male presents to ER via Ambulatory with complaints of Blood In pkl Catheter. 21:59 had dialysis catheter changed earlier today. Patient scratched around the area and pkl noticed bleeding around the catheter this evening.. Onset: The symptoms/episode began/occurred just prior to arrival, 2 hour(s) ago, and improved just prior to arrival. Historical: - Allergies: 19:49 No Known Allergies; aj1 - Home Meds: 19:49 amlodipine oral [Active]; Clonazepam Oral [Active]; Keppra Oral [Active]; Lipitor Oral aj1 [Active]; losartan Oral [Active]; Metoprolol Tartrate Oral [Active]; Novolog Sub-Q [Active]; - PMHx: 19:49 CHF; CVA; Diabetes - IDDM; Dialysis; Saturday, , Saturday; ESRD; Hypertension; aj1 Hypothyroidism; - Immunization history:: Flu vaccine is up to date. - Social history:: Smoking status: Patient/guardian denies using tobacco. - Ebola Screening: : Patient denies travel to an Ebola-affected area in the 21 days before illness onset. ROS: 21:59 Eyes: Negative for injury, pain, redness, and discharge, ENT: Negative for injury, pkl pain, and discharge, Neck: Negative for injury, pain, and swelling, Cardiovascular: Negative for chest pain, palpitations, and edema, Respiratory: Negative for shortness of breath, cough, wheezing, and pleuritic chest pain, Abdomen/GI: Negative for abdominal pain, nausea, vomiting, diarrhea, and constipation, Back: Negative for injury and pain, : Negative for injury, bleeding, discharge, and swelling, MS/Extremity: Negative for injury and deformity, Neuro: Negative for headache, weakness, numbness, tingling, and seizure. 21:59 Skin: Positive for bleeding around dialysis catheter. Exam: 21:59 Head/Face: Normocephalic, atraumatic. Eyes: Pupils equal round and reactive to light, pkl extra-ocular motions intact. Lids and lashes normal. Conjunctiva and sclera are non-icteric and not injected. Cornea within normal limits. Periorbital areas with no swelling, redness, or edema. ENT: Nares patent. No nasal discharge, no septal abnormalities noted. Tympanic membranes are normal and external auditory canals are clear. Oropharynx with no redness, swelling, or masses, exudates, or evidence of obstruction, uvula midline. Mucous membranes moist. Neck: Trachea midline, no thyromegaly or masses palpated, and no cervical lymphadenopathy. Supple, full range of motion without nuchal rigidity, or vertebral point tenderness. No Meningismus. Chest/axilla: Normal chest wall appearance and motion. Nontender with no deformity. No lesions are appreciated. Cardiovascular: Regular rate and rhythm with a normal S1 and S2. No gallops, murmurs, or rubs. Normal PMI, no JVD. No pulse deficits. Respiratory: Lungs have equal breath sounds bilaterally, clear to auscultation and percussion. No rales, rhonchi or wheezes noted. No increased work of breathing, no retractions or nasal flaring. Abdomen/GI: Soft, non-tender, with normal bowel sounds. No distension or tympany. No guarding or rebound. No evidence of tenderness throughout. Back: No spinal tenderness. No costovertebral tenderness. Full range of motion. MS/ Extremity: Pulses equal, no cyanosis. Neurovascular intact. Full, normal range of motion. Neuro: Awake and alert, GCS 15, oriented to person, place, time, and situation. Cranial nerves II-XII grossly intact. Motor strength 5/5 in all extremities. Sensory grossly intact. Cerebellar exam normal. Normal gait. 21:59 Skin: blood clot around dialysis catheter, no active bleeding noted. Vital Signs: 19:49 BP 146 / 100; Pulse 86; Resp 18; Temp 97.6; Pulse Ox 100% on R/A; Weight 129.27 kg (R); aj1 Height 6 ft. 4 in. (193.04 cm) (R); Pain 0/10; 21:45 BP 164 / 100; Pulse 70; Resp 18; Pulse Ox 98% ; ea 22:30 BP 160 / 117; Pulse 75; Resp 18; Pulse Ox 99% ; ea 22:45 BP 166 / 118; Pulse 77; Resp 17; Pulse Ox 99% on R/A; ea 23:57 BP 159 / 100; Pulse 90; Resp 18; Pulse Ox 98% on R/A; ea 09/27 00:20 BP 169 / 112; Pulse 80; Resp 20; Pulse Ox 99% ; ea 00:40 BP 166 / 107; Pulse 82; Resp 18; Pulse Ox 100% ; ea 02:15 BP 160 / 108; Pulse 95; Resp 16; Pulse Ox 99% ; ea 02:34 BP 140 / 96; Pulse 96; Resp 18; Pulse Ox 97% on R/A; ea 02:45 BP 125 / 94; Pulse 95; Resp 19; Pulse Ox 97% ; ea 03:29 BP 138 / 84; Pulse 97; Resp 18; Pulse Ox 98% on R/A; ea 04:41 BP 131 / 104; Pulse 86; Resp 18; Pulse Ox 98% ; Pain 0/10; ea 09/26 19:49 Body Mass Index 34.69 (129.27 kg, 193.04 cm) aj1 MDM: 09/26 21:45 Patient medically screened. pkl 09/27 01:38 Data reviewed: vital signs, nurses notes. pkl 01:38 ED course: Talked to Dr. Olivares ( Nephrology ) that we are unable to reach Dr. Harris or pkl Dr. Ellis ( [facility] ) who inserted the dialysis catheter earlier today. Dr. Olivares recommend IV Desmopressin 30 mcg over 15 mins.. 04:31 ED course: Dialysis catheter re-checked. No active bleeding noted.. pkl Administered Medications: 09/26 23:13 Drug: amLODIPine 5 mg Route: PO; ea 09/27 00:00 Follow up: Response: No adverse reaction 09/26 23:13 Drug: HydrALAZINE 25 mg Route: PO; ea 09/27 00:00 Follow up: Response: No adverse reaction 09/26 23:39 Drug: Losartan 50 mg Route: PO; ea 09/27 00:00 Follow up: Response: No adverse reaction 09/26 23:39 Not Given (Patient Refused): Trandate 20 mg IVP once; Over 2 minutes ea 23:45 Drug: HydrALAZINE 25 mg Route: PO; ea 09/27 00:57 Follow up: Response: No adverse reaction; Blood pressure is lowered ea 09/26 23:50 Drug: Nitroglycerin 0.4 mg Route: Sublingual; ea 09/27 00:57 Follow up: Response: No adverse reaction; Blood pressure is lowered ea 01:50 Drug: Desmopressin 24 mcg Route: IV; Rate: calculated rate; Site: right antecubital; ea 02:21 Follow up: Response: No adverse reaction; IV Status: Completed infusion ea Disposition: 09/27/18 04:33 Discharged to Home. Impression: Bleeding from dialysis catheter ( Resolved ). - Condition is Stable. - Medication Reconciliation Form, Thank You Letter, Antibiotic Education, Prescription Opioid Use form. - Follow up: Private Physician; When: 1 - 2 days; Reason: Re-evaluation by your physician. - Problem is new. - Symptoms are resolved. Signatures: Marisol Arreola RN RN aj1 Shawn Murphy MD MD pkl Lluvia Olsen RN RN ea Corrections: (The following items were deleted from the chart) 04:46 04:33 09/27/2018 04:33 Discharged to Home. Impression: Bleeding from dialysis catheter ea ( Resolved ). Condition is Stable. Forms are Medication Reconciliation Form, Thank You Letter, Antibiotic Education, Prescription Opioid Use. Follow up: Private Physician; When: 1 - 2 days; Reason: Re-evaluation by your physician. Problem is new. Symptoms are resolved. pkl
[2018-09-27 05:02] VITALS: TEMP 97.6
[2018-09-27 05:14] VITALS: O2SAT 98
[2018-09-27 05:15] VITALS: BP 131/104
== END 2018-09-27 04:46 | disposition home or self-care (01) ==
LOC: ER 19:23
DX: T82.838A Hemorrhage due to vascular prosthetic devices, implants and grafts, initial encounter (principal); E11.22 Type 2 diabetes mellitus with diabetic chronic kidney disease; I12.0 Hypertensive chronic kidney disease with stage 5 chronic kidney disease or end stage renal disease; N18.6 End stage renal disease; E03.9 Hypothyroidism, unspecified; I50.9 Heart failure, unspecified; Z99.2 Dependence on renal dialysis; Z79.4 Long term (current) use of insulin
CPT/HCPCS: 99283; J2597

== ENCOUNTER 2018-10-21 09:04 | Observation (INO) | payer OTHER ==
--- OUTSIDE RECORDS SUMMARY | 2018-10-21 09:06 | XMS REPORT | Clinical Summary ---
:1990 Author Organization [facility] Address [address] [place] [address] Care Team Providers Name Role Phone Omar [...] Internal Madhuri, 02/04/2018 Medicine MD Sarah after 10/20/2017 Social History Tobacco Use Types Packs/Day Years [...] procedure are in the results section. after 10/20/2017 Results TRANSFUSION SERVICE REPORT - SCAN (02/05/2018 5:50 PM CDT)Only the most recent of3 resultswithin the time period is included. Narrative Performed At EKG-SCANNED (02/05/2018 3:24 PM CDT) Narrative Performed At Prepare Leuko-Red RBC (02/04/2018 11:54 PM CDT)Only the most recent of2 resultswithin the time period is included. CROSSMATCH COMPATIBLE SAFETRACE TX Unit ABO O Pos SAFETRACE TX UNIT NUMBER [id number] [place]AF[place] [place] Status TRANSFUSED SAFET[facility]ACE [place] Blood Bank Product RED BLOOD CELLS SAFETRACE TX PRODUCT CODE [id number] SAFETRACE TX CROSSMATCH COMPATIBLE SAFETRACE TX Unit ABO O Pos SAFETRACE TX UNIT NUMBER [id number] SAFETRACE TX Status RETURNED FROM ISSUE SAFETRACE [place] Blood Bank Product RED BLOOD CELLS SAFET[place]ACE [place] PRODUCT CODE [id number] SAF[facility] [place] Specimen Other Performing Organization Address [facility] Phone Number SAF[facility] [place] Prepare RBC (02/04/2018 11:54 PM CDT) CROSSMATCH COMPATIBLE SAFETRACE TX Unit ABO O Pos SAFETRACE TX UNIT NUMBER [id number] [place] Status TRANSFUSED [facility] [place] Blood Bank Product RED BLOOD CELLS SAFETRACE [place] PRODUCT CODE [id number] SAFETRACE [place] Performing Organization Address City/[facility] Phone Number SAFETRACE [place] POC-Glucose meter (02/04/2018 6:15 PM CDT)Only the most recent of18 resultswithin the time period is included. POC-Glucose Meter 129 (H)Comment: TESTED AT 70 - 110 mg/dL [facility] [address] [facility] [address] Specimen Blood Performing Organization Address City/State/Zipcode Phone Number [facility] [address] [place] [address] CENTER CBC with platelet count + automated diff (02/04/2018 2:07 PM CDT)Only the most recent of5 resultswithin the time period is included. WBC 7.8 4.0 - 10.0 K/L [facility] RBC 3.06 (L) 4.20 - 5.80 M/L [facility] Hemoglobin 8.7 (L) 13.0 - 16.8 GM/DL [facility] Hematocrit 26.1 (L) 40.0 - [...] Blood Performing Organization Address City/State/Zipcode Phone Number [facility] [address] [place], [place] [phone] Basic Metabolic Panel (02/04/2018 2:07 PM CDT)Only the most recent of5 resultswithin the time period is included. Sodium 138 135 - 148 meq/L [facility] Potassium 4.6 3.6 - 5.5 meq/L [facility] Chloride 97 (L) 98 - 106 meq/L [facility] CO2 19 (L) 20 - 29 meq/L [facility] BUN 27 (H) 10 - 26 mg/dL [facility] Creatinine 7.19 (H) 0.50 - 1.20 mg/dL [facility] Glucose 97 70 - 110 mg/dL [facility] Calcium 9.8 8.5 - 10.5 mg/dL [facility] EGFR 11Comment: ESTIMATED GFR IS NOT mL/min/1.73 sq m [facility] ACCURATE CREATININE CLEARANCE IN PREDICTING GLOMERULAR FILTRATION RATE. ESTIMATED GFR IS NOT APPLICABLE FOR DIALYSIS PATIENTS. Specimen Blood Performing Organization Address [facility] Phone Number [address] [address] Phosphorus (02/03/2018 4:48 PM CDT) Phosphorus 6.9 (H) 2.5 - 4.5 mg/dL [facility] Specimen Blood Performing Organization Address [facility] Phone Number [address] [address] Hemoglobin and hematocrit (02/03/2018 8:06 AM CDT) Hemoglobin 6.5 (L) 13.0 - 16.8 GM/DL [facility] Hematocrit 19.0 (L) 40.0 - 50.0 % [facility] Specimen Blood - Central Venous Line Performing Organization Address [facility] Phone Number [address] [address] Manual Differential (02/03/2018 7:27 AM CDT)Only the most recent of3 resultswithin the time period is included. Total Counted [facility] WBC Morphology Normal [facility] Platelet Morphology Normal [facility] Anisocytosis 1+ few [facility] Specimen Blood - Central Venous Line Performing Organization Address [facility] Phone Number [address] [address] Transfuse Leuko-Red RBC (02/02/2018 3:35 PM CDT)Type and screen (02/02/2018 7: 49 AM CDT) Ab Scrn NEGATIVE [facility] ABO Grouping O [facility] Rh Factor POS [facility] Specimen Blood Performing Organization Address City/State/Zipcode Phone Number [facility] [address] [place] [address] [phone] [facility] Tissue Exam (01/31/2018 11:10 AM CDT) Case Report Surgical Pathology Report Case: [id number] [facility] Authorizing Provider:Lisa Greenberg MD Collected: 01/31/2018 1110 Ordering Location: [facility] Med Surg 5th FloorReceived: 01/31/2018 1249 Pathologist: Sherri Zarate MD Specimen:Leg, Left Lower, NECROTIC TISSUE LEFT LOWER LEG DIAGNOSIS SKIN AND SOFT TISSUE, LEFT LOWER LEG, EXCISION: [facility] - SKIN AND SUBCUTIS WITH NECROSIS, ACUTE AND CHRONIC INFLAMMATION, BACTERIAL COLONIZATION AND CALCIFICATION OF BLOOD VESSELS, CONSISTENT WITH CALCIPHYLAXIS (SEE COMMENT) Signing Pathologist Direct Phone Line: [phone] COMMENT Calcification of small and [facility] medium sized blood vessels are identified along with extensive necrosis of tissue. 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 CPT Code(s) 45054 [facility] CLINICAL HISTORY Not given [facility] SPECIMEN SOURCE Leg, left lower, necrotic [facility] tissue left lower leg GROSS DESCRIPTION The specimen is received in [facility] fixative and designated as "leg, left lower" and consists of skin and subcutaneous tissue (6.0 x 4.0 x 2.0 cm). The overlying skin is brown-patterson and smooth. No discrete lesions. The underlying soft tissue is soft and necrotic. Soldering Technician sections of the skin and soft tissue are submitted into A1 to A3. MG/pl MICROSCOPIC DESCRIPTION Performed [facility] Gross assessment was [facility] performed at [facility], Department of Pathology, [address] [place] [id number], Technical component was [facility] performed at [facility] Department of Pathology, [address] [place] [address], Professional component was [facility] performed at [facility], Department of Pathology, [address] [place] [address], Specimen Tissue - Leg, Left Lower Narrative Performed At Performing Organization Address [facility] Phone Number [facility] [address] [place], [place] [address] [phone] Anaerobic culture (01/31/2018 11:05 AM CDT) Result No anaerobes isolated [facility] Specimen Abscess - Leg, Left Lower Performing Organization Address [facility] Phone Number [facility] [address] [place], [place] [phone] Surgically obtained culture + gram stain (01/31/2018 11:05 AM CDT) Result METHICILLIN RESISTANT [facility] STAPHYLOCOCCUS AUREUS (A) Gram Stain Result 4+ WBCs [facility] Gram Stain Result 1+ gram positive cocci in clusters [facility] Specimen Abscess - Leg, Left Lower [...] 1: Susceptible Staphylococcus aureus Performing Organization Address [facility] Phone Number [facility] [address] [place] [address] [phone] Hepatitis B surface antibody (01/31/2018 6:43 AM CDT) Hep B S Ab 10.2 (H) <8.0 mIU/mL [facility] Specimen Blood - Central Venous Line Performing Organization Address [facility] Phone Number [facility] [address] [place] [phone] CENTER Hepatitis B surface antigen (01/31/2018 6:43 AM CDT) hepatitis B Surface Ag NON-REACTIVE Nonreactive [facility] Specimen Blood - Central Venous Line Performing Organization Address City/[facility] Phone Number [facility] [address] [place] [address] Prothrombin time/INR (01/30/2018 3:48 PM CDT) Protime 11.2 9.3 - 12.0 seconds [facility] INR 1.0 <=5.9 [facility] Specimen Blood Narrative Performed At [facility] RECOMMENDED COUMADIN/WARFARIN INR THERAPY RANGES STANDARD DOSE: 2.0 - 3.0 Includes: PROPHYLAXIS for venous thrombosis, systemic embolization; TREATMENT for venous thrombosis and/or pulmonary embolus. HIGH RISK: Target INR is 2.5-3.5 for patients with mechanical heart valves. Performing Organization Address [facility] Phone Number [facility] [address] [place] [address] after 10/20/2017 Insurance Payer Benefit Plan / Group Subscriber ID Type Phone Address MEDICARE MEDICARE A B xxxxxxxxxx Medicare
--- OUTSIDE RECORDS SUMMARY | 2018-10-21 09:07 | XMS REPORT ---
:1990 [facility] Address [address] [place] [address] Dr. Gale [address] [place] [address] Care Team Providers Name Role Phone ANNE [...] ID 2018-01-28 2018-01-28 Outpatient C EDUARDO [facility] CARDIO [id number] 07:49:00 23:59:00 Results Test Description Test Time Test Comments Text Results Atomic Results Result Comments ANAEROBIC CULTURE 2018-02-05 10:36:00 Test Item Value Reference Range Comments CULTURE (BEAKER) (test woty=2533) No anaerobes isolated POCT-GLUCOSE [id number] 18:17:00 Test Item Value Reference Range Comments POC-GLUCOSE METER (BEAKER) 129 mg/dL 70-110 TESTED AT [address] (test tlbh=0386) [facility] [address] BASIC METABOLIC [id number] 14:45:00 Test Item Value Reference Range Comments SODIUM (BEAKER) (test 138 meq/L 135-148 dsht=963) POTASSIUM (BEAKER) (test 4.6 meq/L 3.6-5.5 bgvf=485) CHLORIDE (BEAKER) (test 97 meq/L 98-106 tcws=490) CO2 (BEAKER) (test 19 meq/L 20-29 bugo=683) BLOOD UREA NITROGEN 27 mg/dL 10-26 (BEAKER) (test znow=472) CREATININE (BEAKER) (test 7.19 mg/dL 0.50-1.20 axtu=436) GLUCOSE RANDOM (BEAKER) 97 mg/dL 70-110 (test gunx=093) CALCIUM (BEAKER) (test 9.8 mg/dL 8.5-10.5 xdhj=561) EGFR (BEAKER) (test 11 mL/min/1.73 sq m ESTIMATED GFR IS NOT lygz=2121) ACCURATE CREATININE CLEARANCE IN PREDICTING GLOMERULAR FILTRATION RATE. ESTIMATED GFR IS NOT APPLICABLE FOR DIALYSIS PATIENTS. CBC W/PLT COUNT & AUTO [id number] 14:35:00 Test Item Value Reference Range Comments WHITE BLOOD CELL COUNT (BEAKER) (test ozlz=541) 7.8 K/ L 4.0-10.0 RED BLOOD CELL COUNT (BEAKER) (test rrnz=789) 3.06 M/ L 4.20-5.80 HEMOGLOBIN (BEAKER) (test waxr=579) 8.7 GM/DL 13.0-16.8 HEMATOCRIT (BEAKER) (test wbbx=493) 26.1 % 40.0-50.0 MEAN CORPUSCULAR VOLUME (BEAKER) (test dhlt=722) 85.5 fL 82.0-98.0 MEAN CORPUSCULAR HEMOGLOBIN (BEAKER) (test 28.4 pg 27.0-33.0 cfgl=367) MEAN CORPUSCULAR HEMOGLOBIN CONC (BEAKER) (test 33.2 GM/DL 32.0-36.0 idqo=608) RED CELL DISTRIBUTION WIDTH (BEAKER) (test 19.5 % 10.3-14.2 dflz=452) PLATELET COUNT (BEAKER) (test dyne=293) 264 K/CU MM 150-430 MEAN PLATELET VOLUME (BEAKER) (test jhda=934) 7.4 fL 6.5-10.5 NEUTROPHILS RELATIVE PERCENT (BEAKER) (test 52 % lhoy=418) LYMPHOCYTES RELATIVE PERCENT (BEAKER) (test 29 % gtse=067) MONOCYTES RELATIVE PERCENT (BEAKER) (test 14 % jqed=063) EOSINOPHILS RELATIVE PERCENT (BEAKER) (test 5 % unzw=984) BASOPHILS RELATIVE PERCENT (BEAKER) (test 1 % cgng=087) NEUTROPHILS ABSOLUTE COUNT (BEAKER) (test 4.20 K/ L 1.80-8.00 aply=692) LYMPHOCYTES ABSOLUTE COUNT (BEAKER) (test 2.20 K/ L 1.48-4.50 pabi=517) MONOCYTES ABSOLUTE COUNT (BEAKER) (test 1.10 K/ L 0.00-1.30 jjfl=675) EOSINOPHILS ABSOLUTE COUNT (BEAKER) (test 0.30 K/ L 0.00-0.50 gkit=957) BASOPHILS ABSOLUTE COUNT (BEAKER) (test 0.00 K/ L 0.00-0.20 bpew=336) POCT-GLUCOSE [id number] 11:29:00 Test Item Value Reference Range Comments POC-GLUCOSE METER (BEAKER) 189 mg/dL 70-110 TESTED AT [address] (test uvtt=7672) [facility] [address] POCT-GLUCOSE [id number] 05:51:00 Test Item Value Reference Range Comments POC-GLUCOSE METER (BEAKER) 117 mg/dL 70-110 TESTED AT [address] (test ukhp=6582) [facility] [address] POCT-GLUCOSE [id number] 21:42:00 Test Item Value Reference Range Comments POC-GLUCOSE METER (BEAKER) 120 mg/dL 70-110 TESTED AT [address] (test eoct=7467) [facility] [address] POCT-GLUCOSE [id number] 20:08:00 Test Item Value Reference Range Comments POC-GLUCOSE METER (BEAKER) 128 mg/dL 70-110 TESTED AT [address] (test nseo=9795) [facility] [address] [id number] 17:01:00 Test Item Value Reference Range Comments PHOSPHORUS (BEAKER) (test nvai=702) 6.9 mg/dL 2.5-4.5 POCT-GLUCOSE [id number] 12:06:00 Test Item Value Reference Range Comments POC-GLUCOSE METER (BEAKER) 122 mg/dL 70-110 TESTED AT [address] (test lzjq=1293) [facility] [address] TISSUE [id number] 09:54:00Surgical Pathology Report Case: [id number] Authorizing Provider: Lisa Greenberg MD Collected: 01/31/2018 1110 Ordering Location: [facility] Med Surg 5th Floor Received: 01/31/2018 1249 Pathologist: Sherri Zarate MD Specimen: Leg, Left Lower, NECROTIC TISSUE LEFT LOWER LEG SKIN AND SOFT TISSUE, LEFT LOWER LEG, EXCISION: - SKIN AND SUBCUTIS WITH NECROSIS, ACUTE AND CHRONIC INFLAMMATION, BACTERIAL COLONIZATION AND CALCIFICATION OF BLOOD VESSELS, CONSISTENT WITH CALCIPHYLAXIS (SEE COMMENT) Signing Pathologist Direct Phone Line: [phone] signed by Sherri Zarate MD on 02/03/2018 at 9:54 AMCalcification of small and medium sized blood vessels are identified along with extensive necrosis of tissue. 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 [id number] givenLeg, left lower, necrotic tissue left lower legThe specimen is received in fixative and designated as "leg, left lower" and consists of skin and subcutaneous tissue ( 6.0 x 4.0 x 2.0 cm). The overlying skin is brown-patterson and smooth. No discrete lesions. The underlying soft tissue is soft and necrotic. Broth Mixer sectionsof the skin and soft tissue are submitted into A1 to A3. MG/pl Performed [facility], Department of Pathology, [address] [place] [address], MlwinvEx. [facility], Department of Pathology, [address] [place] [address], Tel . [facility], Department of Pathology, [address] [place] [address], SLK W/PLT COUNT & AUTO [id number] 09:08:00 Test Item Value Reference Range Comments WHITE BLOOD CELL COUNT (BEAKER) (test wtbz=292) 6.8 K/ L 4.0-10.0 RED BLOOD CELL COUNT (BEAKER) (test asda=484) 2.19 M/ L 4.20-5.80 HEMOGLOBIN (BEAKER) (test ltah=152) 6.2 GM/DL 13.0-16.8 HEMATOCRIT (BEAKER) (test brbd=574) 18.8 % 40.0-50.0 MEAN CORPUSCULAR VOLUME (BEAKER) (test xfov=521) 85.9 fL 82.0-98.0 MEAN CORPUSCULAR HEMOGLOBIN (BEAKER) (test 28.4 pg 27.0-33.0 ziqc=958) MEAN CORPUSCULAR HEMOGLOBIN CONC (BEAKER) (test 33.1 GM/DL 32.0-36.0 exnw=637) RED CELL DISTRIBUTION WIDTH (BEAKER) (test 22.6 % 10.3-14.2 siiy=407) PLATELET COUNT (BEAKER) (test hspf=515) 198 K/CU MM 150-430 MEAN PLATELET VOLUME (BEAKER) (test gjua=668) 7.1 fL 6.5-10.5 NUCLEATED RED BLOOD CELLS (BEAKER) (test 0 /100 WBC 0-0 cjfg=963) NEUTROPHILS RELATIVE PERCENT (BEAKER) (test 63 % btpy=657) LYMPHOCYTES RELATIVE PERCENT (BEAKER) (test 19 % rrsh=926) MONOCYTES RELATIVE PERCENT (BEAKER) (test 13 % jgdl=616) EOSINOPHILS RELATIVE PERCENT (BEAKER) (test 5 % ygkz=905) BASOPHILS RELATIVE PERCENT (BEAKER) (test 1 % dvcw=186) NEUTROPHILS ABSOLUTE COUNT (BEAKER) (test 4.30 K/ L 1.80-8.00 tjko=429) LYMPHOCYTES ABSOLUTE COUNT (BEAKER) (test 1.30 K/ L 1.48-4.50 hxqn=665) MONOCYTES ABSOLUTE COUNT (BEAKER) (test 0.90 K/ L 0.00-1.30 okaw=206) EOSINOPHILS ABSOLUTE COUNT (BEAKER) (test 0.30 K/ L 0.00-0.50 vpyu=843) BASOPHILS ABSOLUTE COUNT (BEAKER) (test 0.00 K/ L 0.00-0.20 jcph=393) (MANUAL DIFFERENTIAL)2018-02-03 09:08:00 Test Item Value Reference Range Comments TOTAL COUNTED (BEAKER) (test pyra=9629) WBC MORPHOLOGY (BEAKER) (test yljw=560) Normal PLT MORPHOLOGY (BEAKER) (test gwbb=418) Normal ANISOCYTOSIS (BEAKER) (test gvpy=902) 1+ few BASIC METABOLIC [id number] 08:39:00 Test Item Value Reference Range Comments SODIUM (BEAKER) (test 131 meq/L 135-148 sqsu=556) POTASSIUM (BEAKER) (test 5.0 meq/L 3.6-5.5 uikt=011) CHLORIDE (BEAKER) (test 97 meq/L 98-106 vrzi=470) CO2 (BEAKER) (test 25 meq/L 20-29 kozt=890) BLOOD UREA NITROGEN 41 mg/dL 10-26 (BEAKER) (test famr=777) CREATININE (BEAKER) (test 9.74 mg/dL 0.50-1.20 xmrv=924) GLUCOSE RANDOM (BEAKER) 88 mg/dL 70-110 (test dxzk=864) CALCIUM (BEAKER) (test 8.7 mg/dL 8.5-10.5 uigp=690) EGFR (BEAKER) (test 8 mL/min/1.73 sq m ESTIMATED GFR IS NOT lvjs=9534) ACCURATE CREATININE CLEARANCE IN PREDICTING GLOMERULAR FILTRATION RATE. ESTIMATED GFR IS NOT APPLICABLE FOR DIALYSIS PATIENTS. HEMOGLOBIN AND [id number] 08:25:00 Test Item Value Reference Range Comments HEMOGLOBIN (BEAKER) (test igzg=996) 6.5 GM/DL 13.0-16.8 HEMATOCRIT (BEAKER) (test pwft=839) 19.0 % 40.0-50.0 POCT-GLUCOSE [id number] 21:42:00 Test Item Value Reference Range Comments POC-GLUCOSE METER (BEAKER) 121 mg/dL 70-110 TESTED AT [address] (test iaqs=0505) [facility] [address] POCT-GLUCOSE [id number] 16:40:00 Test Item Value Reference Range Comments POC-GLUCOSE METER (BEAKER) 134 mg/dL 70-110 TESTED AT [address] (test wnmj=7525) [facility] [address] POCT-GLUCOSE [id number] 12:00:00 Test Item Value Reference Range Comments POC-GLUCOSE METER (AKER) 84 mg/dL 70-110 TESTED AT [address] (test iqoq=7074) [facility] [address] SURGICALLY OBTAINED CULTURE + GRAM [id number] 08:12:00 Test Item Value Reference Range Comments CULTURE ([facility]) (test METHICILLIN RESISTANT 2+ Methicillin yfht=2213) STAPHYLOCOCCUS AUREUS resistant Staphylococcus aureus Ciprofloxacin (test code=7) Clindamycin (test code=10) Daptomycin (test code=59) Erythromycin (test code=4) Gentamicin (test code=18) Levofloxacin (test code=22) Linezolid (test code=40) Moxifloxacin (test code=36) Nitrofurantoin (test code=23) Oxacillin (test code=14) Rifampin (test code=43) Tetracycline (test code=2) Tigecycline (test eqbr=353) Trimethoprim + Sulfamethoxazole (test code=47) Vancomycin (test code=13) GRAM STAIN RESULT 4+ WBCs (BEAKER) (test tzqs=0331) GRAM STAIN RESULT 1+ gram positive cocci (BEAKER) (test in clusters fhaz=372976) CBC W/PLT COUNT & AUTO [id number] 06:19:00 Test Item Value Reference Range Comments WHITE BLOOD CELL COUNT (BEAKER) (test zfcl=036) 7.9 K/ L 4.0-10.0 RED BLOOD CELL COUNT (BEAKER) (test suyx=967) 2.16 M/ L 4.20-5.80 HEMOGLOBIN (BEAKER) (test zayy=179) 6.2 GM/DL 13.0-16.8 HEMATOCRIT (BEAKER) (test nrcz=825) 18.9 % 40.0-50.0 MEAN CORPUSCULAR VOLUME (BEAKER) (test rbxp=697) 87.2 fL 82.0-98.0 MEAN CORPUSCULAR HEMOGLOBIN (BEAKER) (test 28.7 pg 27.0-33.0 fsnd=316) MEAN CORPUSCULAR HEMOGLOBIN CONC (BEAKER) (test 32.9 GM/DL 32.0-36.0 jxfz=613) RED CELL DISTRIBUTION WIDTH (BEAKER) (test 23.4 % 10.3-14.2 dnef=804) PLATELET COUNT (BEAKER) (test kcvq=028) 203 K/CU MM 150-430 MEAN PLATELET VOLUME (BEAKER) (test yspb=671) 7.2 fL 6.5-10.5 NUCLEATED RED BLOOD CELLS (BEAKER) (test 0 /100 WBC 0-0 symb=014) NEUTROPHILS RELATIVE PERCENT (BEAKER) (test 64 % sfpi=718) LYMPHOCYTES RELATIVE PERCENT (BEAKER) (test 18 % ydkg=202) MONOCYTES RELATIVE PERCENT (BEAKER) (test 14 % qdwf=610) EOSINOPHILS RELATIVE PERCENT (BEAKER) (test 4 % kbyj=090) BASOPHILS RELATIVE PERCENT (BEAKER) (test 1 % egaf=529) NEUTROPHILS ABSOLUTE COUNT (BEAKER) (test 5.00 K/ L 1.80-8.00 wnle=083) LYMPHOCYTES ABSOLUTE COUNT (BEAKER) (test 1.40 K/ L 1.48-4.50 iqoa=907) MONOCYTES ABSOLUTE COUNT (BEAKER) (test 1.10 K/ L 0.00-1.30 birt=887) EOSINOPHILS ABSOLUTE COUNT (BEAKER) (test 0.30 K/ L 0.00-0.50 rhpn=738) BASOPHILS ABSOLUTE COUNT (BEAKER) (test 0.00 K/ L 0.00-0.20 pwrh=567) POCT-GLUCOSE [id number] 06:01:00 Test Item Value Reference Range Comments POC-GLUCOSE METER (BEAKER) 122 mg/dL 70-110 TESTED AT [address] (test flld=4263) [facility] [address] POCT-GLUCOSE [id number] 21:23:00 Test Item Value Reference Range Comments POC-GLUCOSE METER (BEAKER) 178 mg/dL 70-110 TESTED AT [address] (test aahj=9711) [facility] [address] POCT-GLUCOSE [id number] 16:29:00 Test Item Value Reference Range Comments POC-GLUCOSE METER (BEAKER) 165 mg/dL 70-110 TESTED AT [address] (test glcu=8971) [facility] [address] POCT-GLUCOSE [id number] 11:59:00 Test Item Value Reference Range Comments POC-GLUCOSE METER (BEAKER) 131 mg/dL 70-110 TESTED AT [address] (test qrfk=0555) [facility] [address] POCT-GLUCOSE [id number] 05:22:00 Test Item Value Reference Range Comments POC-GLUCOSE METER (BEAKER) 104 mg/dL 70-110 TESTED AT [address] (test jita=7970) [facility] [address] POCT-GLUCOSE [id number] 22:48:00 Test Item Value Reference Range Comments POC-GLUCOSE METER (BEAKER) 122 mg/dL 70-110 TESTED AT [address] (test mmvx=7674) [facility] [address] HEPATITIS B SURFACE [id number] 20:44:00 Test Item Value Reference Range Comments HEPATITIS B SURFACE ANTIBODY (BEAKER) (test 10.2 mIU/mL <8.0 gzmy=693) POCT-GLUCOSE [id number] 18:00:00 Test Item Value Reference Range Comments POC-GLUCOSE METER (BEAKER) 127 mg/dL 70-110 TESTED AT [facility] [address] (test ihhp=9007) [address] [facility] [address] BASIC METABOLIC [id number] 11:02:00 Test Item Value Reference Range Comments SODIUM (BEAKER) (test 137 meq/L 135-148 adcz=807) POTASSIUM (BEAKER) (test 3.5 meq/L 3.6-5.5 ltfs=301) CHLORIDE (BEAKER) (test 98 meq/L 98-106 aotb=843) CO2 (BEAKER) (test 27 meq/L 20-29 gxft=925) BLOOD UREA NITROGEN 11 mg/dL 10-26 (BEAKER) (test ptnx=674) CREATININE (BEAKER) (test 3.99 mg/dL 0.50-1.20 grkj=980) GLUCOSE RANDOM (BEAKER) 84 mg/dL 70-110 (test yfrf=535) CALCIUM (BEAKER) (test 9.6 mg/dL 8.5-10.5 emab=778) EGFR (BEAKER) (test 22 mL/min/1.73 sq m ESTIMATED GFR IS NOT ahbr=8252) ACCURATE CREATININE CLEARANCE IN PREDICTING GLOMERULAR FILTRATION RATE. ESTIMATED GFR IS NOT APPLICABLE FOR DIALYSIS PATIENTS. CBC W/PLT COUNT & AUTO [id number] 10:36:00 Test Item Value Reference Range Comments WHITE BLOOD CELL COUNT (BEAKER) (test fyua=098) 6.7 K/ L 4.0-10.0 RED BLOOD CELL COUNT (BEAKER) (test uqmy=548) 2.89 M/ L 4.20-5.80 HEMOGLOBIN (BEAKER) (test xpsw=080) 8.2 GM/DL 13.0-16.8 HEMATOCRIT (BEAKER) (test khec=474) 24.9 % 40.0-50.0 MEAN CORPUSCULAR VOLUME (BEAKER) (test bgxm=866) 86.1 fL 82.0-98.0 MEAN CORPUSCULAR HEMOGLOBIN (BEAKER) (test 28.3 pg 27.0-33.0 qtlq=217) MEAN CORPUSCULAR HEMOGLOBIN CONC (BEAKER) (test 32.9 GM/DL 32.0-36.0 fefm=554) RED CELL DISTRIBUTION WIDTH (BEAKER) (test 24.6 % 10.3-14.2 yqlb=409) PLATELET COUNT (BEAKER) (test ivoj=024) 234 K/CU MM 150-430 MEAN PLATELET VOLUME (BEAKER) (test fzfq=203) 7.3 fL 6.5-10.5 NUCLEATED RED BLOOD CELLS (BEAKER) (test 0 /100 WBC 0-0 bdnr=118) NEUTROPHILS RELATIVE PERCENT (BEAKER) (test 64 % pitv=498) LYMPHOCYTES RELATIVE PERCENT (BEAKER) (test 20 % cwga=770) MONOCYTES RELATIVE PERCENT (BEAKER) (test 11 % rwjd=777) EOSINOPHILS RELATIVE PERCENT (BEAKER) (test 4 % iggm=403) BASOPHILS RELATIVE PERCENT (BEAKER) (test 1 % jqox=665) NEUTROPHILS ABSOLUTE COUNT (BEAKER) (test 4.30 K/ L 1.80-8.00 raiv=410) LYMPHOCYTES ABSOLUTE COUNT (BEAKER) (test 1.30 K/ L 1.48-4.50 zxep=433) MONOCYTES ABSOLUTE COUNT (BEAKER) (test 0.80 K/ L 0.00-1.30 msxa=430) EOSINOPHILS ABSOLUTE COUNT (BEAKER) (test 0.30 K/ L 0.00-0.50 qihv=675) BASOPHILS ABSOLUTE COUNT (BEAKER) (test 0.00 K/ L 0.00-0.20 ryfd=126) (MANUAL DIFFERENTIAL)2018-01-31 10:36:00 Test Item Value Reference Range Comments TOTAL COUNTED (BEAKER) (test khqu=8269) WBC MORPHOLOGY (BEAKER) (test sagc=528) Normal PLT MORPHOLOGY (BEAKER) (test kjcj=939) Normal ANISOCYTOSIS (BEAKER) (test ogsm=387) 1+ few MICROCYTES (BEAKER) (test mjjk=532) 1+ few POIKILOCYTES (BEAKER) (test bdvu=495) 1+ few HEPATITIS B SURFACE [id number] 07:50:00 Test Item Value Reference Range Comments HEPATITIS B SURFACE ANTIGEN (2) (BEAKER) (test Nonreactive Nonreactive yxro=2842) BASIC METABOLIC [id number] 07:45:00 Test Item Value Reference Range Comments SODIUM (BEAKER) (test 133 meq/L 135-148 pori=488) POTASSIUM (BEAKER) (test 4.4 meq/L 3.6-5.5 xdgx=881) CHLORIDE (BEAKER) (test 97 meq/L 98-106 vfex=554) CO2 (BEAKER) (test 25 meq/L 20-29 gico=676) BLOOD UREA NITROGEN 25 mg/dL 10-26 (BEAKER) (test qfnm=331) CREATININE (BEAKER) (test 7.52 mg/dL 0.50-1.20 qqai=365) GLUCOSE RANDOM (BEAKER) 89 mg/dL 70-110 (test hvbz=427) CALCIUM (BEAKER) (test 9.8 mg/dL 8.5-10.5 oeut=790) EGFR (BEAKER) (test 10 mL/min/1.73 sq m ESTIMATED GFR IS NOT klvm=6412) ACCURATE CREATININE CLEARANCE IN PREDICTING GLOMERULAR FILTRATION RATE. ESTIMATED GFR IS NOT APPLICABLE FOR DIALYSIS PATIENTS. POCT-GLUCOSE [id number] 06:32:00 Test Item Value Reference Range Comments POC-GLUCOSE METER (BEAKER) 82 mg/dL 70-110 TESTED AT [address] (test wumk=9012) [facility] [address] POCT-GLUCOSE [id number] 17:47:00 Test Item Value Reference Range Comments POC-GLUCOSE METER (BEAKER) 106 mg/dL 70-110 TESTED AT [address] (test qzgv=4760) [facility] [address] CBC W/PLT COUNT & AUTO [id number] 16:41:00 Test Item Value Reference Range Comments WHITE BLOOD CELL COUNT (BEAKER) (test pwgf=286) 8.0 K/ L 4.0-10.0 RED BLOOD CELL COUNT (BEAKER) (test ylaj=647) 3.02 M/ L 4.20-5.80 HEMOGLOBIN (BEAKER) (test znqd=179) 8.5 GM/DL 13.0-16.8 HEMATOCRIT (BEAKER) (test rrqu=231) 25.9 % 40.0-50.0 MEAN CORPUSCULAR VOLUME (BEAKER) (test jdzx=645) 85.7 fL 82.0-98.0 MEAN CORPUSCULAR HEMOGLOBIN (BEAKER) (test 28.3 pg 27.0-33.0 oyky=343) MEAN CORPUSCULAR HEMOGLOBIN CONC (BEAKER) (test 33.0 GM/DL 32.0-36.0 ehzv=483) RED CELL DISTRIBUTION WIDTH (BEAKER) (test 24.9 % 10.3-14.2 hgzn=964) PLATELET COUNT (BEAKER) (test yrsr=505) 272 K/CU MM 150-430 MEAN PLATELET VOLUME (BEAKER) (test fndj=079) 6.7 fL 6.5-10.5 NUCLEATED RED BLOOD CELLS (BEAKER) (test 0 /100 WBC 0-0 tmdv=711) NEUTROPHILS RELATIVE PERCENT (BEAKER) (test 65 % uirh=209) LYMPHOCYTES RELATIVE PERCENT (BEAKER) (test 19 % yseb=713) MONOCYTES RELATIVE PERCENT (BEAKER) (test 12 % bdpo=178) EOSINOPHILS RELATIVE PERCENT (BEAKER) (test 3 % eqal=191) BASOPHILS RELATIVE PERCENT (BEAKER) (test 1 % bulw=822) NEUTROPHILS ABSOLUTE COUNT (BEAKER) (test 5.20 K/ L 1.80-8.00 puxe=375) LYMPHOCYTES ABSOLUTE COUNT (BEAKER) (test 1.50 K/ L 1.48-4.50 oymb=080) MONOCYTES ABSOLUTE COUNT (BEAKER) (test 1.00 K/ L 0.00-1.30 bhfg=277) EOSINOPHILS ABSOLUTE COUNT (BEAKER) (test 0.20 K/ L 0.00-0.50 augq=635) BASOPHILS ABSOLUTE COUNT (BEAKER) (test 0.00 K/ L 0.00-0.20 bxjo=991) (MANUAL DIFFERENTIAL)2018-01-30 16:41:00 Test Item Value Reference Range Comments TOTAL COUNTED (BEAKER) (test vddj=3112) WBC MORPHOLOGY (BEAKER) (test ahoi=482) Normal PLT MORPHOLOGY (BEAKER) (test xwxv=731) Normal ANISOCYTOSIS (BEAKER) (test wxpu=550) 2+ moderate HYPOCHROMIA (BEAKER) (test lvyh=165) 2+ moderate BASIC METABOLIC [id number] 16:21:00 Test Item Value Reference Range Comments SODIUM (BEAKER) (test 133 meq/L 135-148 cnpg=535) POTASSIUM (BEAKER) (test 4.5 meq/L 3.6-5.5 ixjv=002) CHLORIDE (BEAKER) (test 96 meq/L 98-106 qsaa=990) CO2 (BEAKER) (test 26 meq/L 20-29 mwfe=766) BLOOD UREA NITROGEN 21 mg/dL 10-26 (BEAKER) (test knmk=973) CREATININE (BEAKER) (test 6.41 mg/dL 0.50-1.20 rnon=488) GLUCOSE RANDOM (BEAKER) 93 mg/dL 70-110 (test lejn=667) CALCIUM (BEAKER) (test 10.0 mg/dL 8.5-10.5 hkeq=470) EGFR (BEAKER) (test 13 mL/min/1.73 sq m ESTIMATED GFR IS NOT vnne=1073) ACCURATE CREATININE CLEARANCE IN PREDICTING GLOMERULAR FILTRATION RATE. ESTIMATED GFR IS NOT APPLICABLE FOR DIALYSIS PATIENTS. PROTHROMBIN [id number] 16:17:00 Test Item Value Reference Range Comments PROTIME (BEAKER) (test odno=552) 11.2 seconds 9.3-12.0 INR (BEAKER) (test cyab=603) 1.0 <=5.9 RECOMMENDED COUMADIN/WARFARIN INR THERAPY RANGESSTANDARD DOSE: 2.0 - 3.0 Includes: PROPHYLAXIS forvenous thrombosis, systemic embolization; TREATMENT for venous thrombosis and/or pulmonary embolus.HIGH RISK: Target INR is 2.5-3.5 for patients with mechanical heart valves.
--- OUTSIDE RECORDS SUMMARY | 2018-10-21 09:07 | XMS REPORT | Continuity of Care Document ---
:1990 Author Organization Interface Problems Problem Status Onset Classification Date Comments Source Date Reported Obstructive Active 11/28/19 Finding 12/06/[address] [facility] sleep apnea 18 - [place] Diabetes Active 11/28/19 Finding 12/06/[address] [facility] mellitus 18 - [place] Anemia Active 11/28/19 Finding 12/06/[address] [facility] 18 - [place] Cellulitis Active 11/28/19 Finding 12/06/[address] [facility] 18 - [place] Hyponatremia Active 11/28/19 Finding 12/06/[address] [facility] 18 - [place] Lymphedema Active 11/28/19 Finding 12/06/[address] [facility] 18 - [place] Chronic renal Active 11/28/19 Finding 12/06/[address] [facility] disease 18 - [place] Obesity Active 11/28/19 Finding 12/06/[address] [facility] 18 - [place] Chronic kidney Active 11/28/19 Finding 12/06/[address] [facility] disease 18 - [place] Obstructive Active 11/28/19 Finding 12/06/[address] [facility] sleep apnea 18 - [place] syndrome Congestive heart Active 08/10/20 Finding 12/06/2017 [facility] failure 15 - [place] Malignant Active 08/10/20 Finding 12/06/[address] [facility] hypertension 15 - [place] Chronic anemia Active Finding 12/06/2017 [facility] - [place] Morbid obesity Active Finding 12/06/[address] [facility] - [place] Chronic kidney Active Finding 12/06/[address] [facility] disease stage 1 - [place] RADHIKA Active Finding 12/06/[address] [facility] - [place] Systolic CHF Active Finding 12/06/2017 [facility] with reduced - [place] left ventricular function, NYHA class 2 Somnolence Active Finding 12/06/[address] [facility] - [place] Hypertensive Active Finding 12/06/[address] [facility] emergency - [place] Medications Medication Details Route Status Patient Ordering Order Source Instructions Provider Date Amlodipine DAILY [facility] - [place] Furosemide TWICE Active [facility] - [place] Metolazone EVERY [address] [facility] [facility]18 [facility] - [place] Levothyroxine DAILY AT Active [facility]600 018 [facility] - [place] Insulin Detemir DAILY Active [facility] - [place] Spironolactone TWICE Active [facility] - [place] Hydralazine THREE Active [facility] - DAY [place] Clonidine Hcl THREE Inactive [facility] - DAY [place] Minoxidil TWICE Active [facility] - [place] Isosorbide Dinit TWICE Active [facility] - [place] Labetalol Hcl TWICE Active [facility]15 [facility] - [place] Furosemide DAILY Active [facility] - [place] Metolazone Sat,Sat,F Active [facility] 015 [facility] - [place] Clonidine Hcl THREE Active [facility] TIM[facility] A [facility]15 [facility] - DAY [place] Metoprolol TWICE [facility] Tartrate DAILY 015 [facility] - [place] Metolazone Mon,Wed,F [facility] - [place] Minoxidil TWICE Active [facility] - [place] Hydralazine THREE [facility] TIMES A 015 [facility] - DAY [place] Clonidine Hcl TWICE Active [facility] - [place] Carvedilol TWICE Active [facility] - [place] Levofloxacin DAILY Active [facility] - [place] Aspirin Enteric DAILY Active [facility]14 [facility] - [place] Clonidine Hcl EVERY Active [facility] TW[facility]VE 014 [facility] - HOURS [place] Lisinopril DAILY Active [facility] - [place] Isosorbide Dinit TWICE Active [facility]14 [facility] - [place] Hydralazine TWICE Active [facility]14 [facility] - [place] Furosemide DAILY Active [facility] - [place] Hydralazine TWICE Active [facility]14 [facility] - [place] Aspirin Enteric DAILY Active [facility]14 [facility] - [place] Clonidine Hcl TWICE Active [facility]14 [facility] - [place] Metformin Hcl TWICE Active [facility]14 [facility] - WITH [place] MEALS Potassium Oral DAILY Active [facility] St[facility] Tab 014 [facility] - [place] Furosemide DAILY Active [facility] - [place] Lisinopril DAILY Active [facility] - [place] Carvedilol TWICE Active [facility] 013 [facility] - [place] Glyburide DAILY Active [facility] 013 [facility] - [place] Lisinopril TWICE Active [facility]13 [facility] - [place] Allergies, Adverse Reactions, Alerts Substance Category Reaction Severity Reaction Status Date Comments Source type Reported Immunizations Immunization Date Given Site Status Last Updated Comments Source Results Order Name Results Value Reference Date Interpretation Comments Source Range Laboratory Total 0.8 mg/dL 0.3 - 1.2 12/05 [facility] Studies Bilirubin /2018 [facility] - [place] Laboratory Phosphorus 5.7 mg/dL 2.5 - 4.3 12/05 [facility] Studies Level /2018 [facility] - [place] Laboratory Magnesium 2.0 mg/dL 1.8 - 2.5 12/05 [facility] [address] Studies Level /2018 [facility] - [place] Laboratory Glucose Level 139 mg/dL 65 - 120 12/05 [facility] [address] Studies /2018 [facility] - [place] Laboratory Estimat 12 mL/min 90 12/05 [facility] Studies Glomerular /2017 [facility] - Filtration [place] Rate Laboratory Creatinine 6.59 mg/dL 0.61 - 03 [facility] Studies 1.24 [facility] - [place] Laboratory Calcium Level 8.6 mg/dL 8.5 - 10.5 12/05 [facility] Studies /2017 [facility] - [place] Laboratory Blood Urea 50 mg/dL 6 - 20 12/05 [facility] Studies Nitrogen /2017 [facility] - [place] Laboratory Sodium Level 132 mEq/L 135 - 145 12/05 [facility] Studies /2017 [facility] - [place] Laboratory Serum Total 8.5 g/dL 6.0 - 8.3 12/05 [facility] Studies Protein /2017 [facility] Potassium 4.5 mEq/L 3.6 - 5.0 12/05 [facility] Studies Level /2017 [facility] - [place] Laboratory Globulin 6.1 g/dL 2.3 - 3.5 12/05 [facility] Studies [facility] - [place] Laboratory Chloride 96 mEq/L 101 - 111 12/05 [facility] Studies Level /2017 [facility] - [place] Laboratory Carbon 25 mEq/L 21 - 31 12/05 [facility] Studies Dioxide Level /2017 k[facility] - [place] Laboratory Aspartate 16 IU/L 10 - 42 12/05 [facility] Studies Amino Transf /2017 [facility] - (AST/SGOT) [place] Laboratory Alkaline 88 IU/L 42 - 121 12/05 [facility] Studies Phosphatase /2017 [facility] - [place] Laboratory Albumin/Globu 0.4 1.1 - 1.8 12/05 [facility] Studies antelmo Ratio /2017 [facility] - [place] Laboratory Albumin 2.4 g/dL 3.2 - 5.5 12/05 [facility] Studies /2017 [facility] - [place] Laboratory Alanine 10 IU/L 10 - 60 12/05 [facility] Studies Aminotransfer /2017 [facility] [place] (ALT/SGPT) Laboratory Ammonia 10 umol/L 10 - 45 12/05 [facility] Studies /2017 [facility] - [place] Laboratory Other Total 8.9 g/dl 12 - 18 12/05 [facility] Studies Hemoglobin /2017 [facility] - (Blood Gas) [place] Laboratory Blood Gas pH 7.46 7.35 - 12/05 [facility] Studies 7.45 /2017 [facility] - [place] Laboratory Blood Gas PO2 81.6 mmHG 75 - 100 12/05 [facility] [address] Studies /2017 [facility] - [place] Laboratory Blood Gas 38.8 mmHG 35 - 45 12/05 [facility] Studies PCO2 /2017 [facility] - [place] Laboratory Blood Gas 92.0 % 94 - 97 12/05 [facility] Studies Oxyhemoglobin /2017 [facility] - [place] Laboratory Blood Gas 40.0 % 12/05 [facility] Studies Inspired /2017 [facility] - Oxygen [place] Laboratory Blood Gas 27.2 mmol/L 22 - 28 12/05 [facility] Studies HCO3 /2017 [facility] - [place] Laboratory Blood Gas 3.6 mmol/L 12/05 [facility] Studies Base Excess /2017 [facility] - [place] Laboratory Arterial 1.8 % 0 - 1.5 12/05 [facility] Studies Blood /2017 [facility] - Methemoglobin [place] Laboratory Arterial 1.6 % 0 - 1.5 12/05 [facility] Studies Blood /[facility] obin Laboratory Arterial Bld 95.2 % 92 - 98.5 12/05 [facility] Studies O2 Saturation /2017 [facility] - (Measur) [place] Laboratory Bedside 156 mg/dl 65 - 120 12/05 [facility] Studies Glucose /2017 [facility] - [place] Laboratory Blood Blood 12/05 [facility] Studies Morphology Morphology /2017 [facility] - Comment Comment [place] Laboratory White Blood 16.4 K/uL 4.3 - 10.9 12/05 [facility] Studies Count /2017 [facility] - [place] Laboratory Red Cell 19.2 % 12.1 - 12/05 [facility] Studies Distribution 15.2 [facility] - Width [place] Laboratory Red Blood 3.36 M/uL 4.33 - 12/05 [facility] Studies Count 5.43 /2017 [facility] - [place] Laboratory Platelet 403 K/uL 152 - 406 12/05 [facility] Studies Count /2017 [facility] - [place] Laboratory Neutrophils % 86.5 % 41.7 - 12/05 [facility] Studies 73.7 /2017 [facility] - [place] Laboratory Monocytes % 8.2 % 3.3 - 12.3 12/05 [facility] Studies /2018 [facility] - [place] Laboratory Mean Platelet 7.8 fL 7.6 - 11.3 12/05 [facility] Studies Volume /2017 [facility] - [place] Laboratory Mean 75.3 fL 80 - 100 12/05 [facility] Studies Corpuscular /2017 [facility] - Volume [place] Laboratory Mean 31.4 g/dL 32.0 - 12/05 [facility] Studies Corpuscular 36.0 /2017 [facility] - Hemoglobin [place] Concent Laboratory Mean 23.6 pg 27.0 - 12/05 [facility] Studies Corpuscular 35.0 [facility] - Hemoglobin [place] Laboratory Lymphocytes % 3.8 % 15.3 - 12/05 [facility] Studies 44.8 /2017 [facility] - [place] Laboratory Hemoglobin 7.9 g/dL 13.6 - 12/05 [facility] [address] Studies 17.9 /2017 [facility] - [place] Laboratory Hematocrit 25.3 % 39.6 - 12/05 [facility] Studies 49.0 /2017 [facility] - [place] Laboratory Eosinophils % 0.2 % 0 - 4.4 12/05 [facility] [address] Studies /2017 [facility] - [place] Laboratory Basophils % 1.3 % 0 - 1.3 12/05 [facility] Studies /2017 [facility] - [place] Laboratory Absolute 14.2 K/uL 1.8 - 8.0 12/05 [facility] Studies Neutrophil [facility] - [place] Laboratory Absolute 1.4 K/uL 0.1 - 1.3 12/05 [facility] Studies Monocytes [facility] - (CBC) [place] Laboratory Absolute 0.6 K/uL 0.7 - 4.9 12/05 [facility] Studies Lymphocytes [facility] - (CBC) [place] Laboratory Absolute 0.0 K/uL 0 - 0.5 12/05 [facility] Studies Eosinophils [facility] - (CBC) [place] Laboratory Absolute 0.2 K/uL 0 - 0.5 12/05 [facility] Studies Basophils [facility] - (CBC) [place] Laboratory Lactic Acid 7.0 mg/dL 4.5 - 19.8 12/04 [facility] Studies Level /2017 [facility] - [place] Laboratory Lactate 139 IU/L 125 - 240 12/04 [facility] Studies Dehydrogenase [facility] - [place] Laboratory Hypochromasia Hypochromas 12/03 [facility] Studies ia /2017 [facility] - [place] Laboratory Clumped Clumped 12/03 [facility] Studies Platelets Platelets /2017 [facility] - [place] Laboratory Anisocytosis Anisocytosi 12/03 [facility] Studies s /2017 [facility] - [place] Laboratory Segmented 88 % 40 - 80 12/01 [facility] Studies Neutrophils /2017 [facility] - [place] Laboratory Monocytes 6 % 0 - 10 12/01 [facility] [address] Studies /2017 [facility] - [place] Laboratory Microcytosis Microcytosi 12/01 [facility] Studies s /2017 [facility] - [place] Laboratory Lymphocytes 6 % 15 - 42 12/01 [facility] Studies /2017 [facility] - [place] Laboratory Vancomycin 7.8 ug/mL 5 - 20 11/30 [facility] Studies Level Trough /2017 [facility] - [place] Laboratory Urine Total 2400 mL 11/29 [facility] Studies Volume 24 [facility] - Hours [place] Laboratory Urine Total 4656 mg/24 11/29 [facility] Studies Protein 24 h /2017 [facility] - Hour [place] Laboratory Urine 2702 mg/g 11/29 [facility] Studies Protein/Creat creat /2017 [facility] - inine Ratio [place] 24hr Laboratory Urine Protein Urine 11/29 [facility] Studies Electrophores Protein /2017 [facility] - is Intrp Electrophor [place] esis Intrp Laboratory Urine PEP Urine PEP 11/29 [facility] Studies Abnormal Abnormal [facility] - Protein Band Protein [place] 3 Band 3 Laboratory Urine PEP Urine PEP 11/29 [facility] Studies Abnormal Abnormal [facility] - Protein Band Protein [place] 2 Band 2 Laboratory Urine PEP Urine PEP 11/29 [facility] Studies Abnormal Abnormal /2017 [facility] - Protein Band Protein [place] 1 Band 1 Laboratory Urine Gamma 29 % 11/29 [facility] Studies Globulin [facility] - [place] Laboratory Urine 1.72 g/24 h 11/29 [facility] Studies Creatinine 24 [facility] - Hour [place] Laboratory Urine Beta 10 % 11/29 [facility] Studies Globulin /2017 [facility] - [place] Laboratory Urine 8 % 11/29 [facility] Studies Rwher-9-Lwafp /2017 [facility] - tk [place] Laboratory Urine 5 % 11/29 [facility] Studies Inoep-8-Pwfor /2017 [facility] - antelmo [place] Laboratory Urine Albumin 48 % 11/29 St[facility] Studies 24 Hours /2017 [facility] - [place] Laboratory Hepatitis B Hepatitis B 11/28 St. Studies Surface Surface /2017 [facility] - Antigen Antigen [place] Laboratory Hepatitis B null 11/28 St[facility] Studies Surface /2017 [facility] - Antibody, [place] Quant Laboratory Hepatitis B Hepatitis B 11/28 St[facility] Studies Surface Surface /2018 [facility] - Antibody Antibody [place] Laboratory Hepatitis B Hepatitis B 11/28 St[facility] Studies Surface Ag Surface Ag /2017 [facility] - Confirmation Confirmatio [place] n Laboratory Hepatitis B Hepatitis B 11/28 St[facility] Studies Core Total Core Total /2017 [facility] - Antibody Antibody [place] Laboratory Hepatitis B Hepatitis B 11/28 St[facility] Studies Core IgM Core IgM /2017 [facility] - Antibody Antibody [place] Laboratory HIV-1 RNA, HIV-1 RNA, 11/28 St[facility] Studies Qualitat Qualitat /2017 [facility] - (TMA) Comment (TMA) [place] Comment Laboratory HIV (1&2) Ag HIV (1&2) 11/28 [facility] . Studies and Ab, 4th Ag and Ab, /2017 [facility] - Generation 4th [place] Generation Laboratory HIV (1&2) Ab HIV (1&2) 11/28 [facility] Studies Differential Ab /2017 [facility] - Comment Differentia [place] l Comment Laboratory Complement C4 30 mg/dL 11/28 St[facility] Studies /2017 [facility] - [place] Laboratory Complement C3 196 mg/dL 11/28 St[facility] Studies /2017 [facility] - [place] Laboratory Anti-Nuclear Anti-Nuclea 11/28 St[facility] Studies Antibody r Antibody /2017 [facility] - Screen Screen [place] Laboratory Anti-Nuclear Anti-Nuclea 11/28 St[facility] Studies Antibody r Antibody /2017 [facility] - Pattern 2 Pattern 2 [place] Laboratory Anti-Double 2 IU/mL 11/28 St[facility] Studies Strand DNA /2017 [facility] - Antibody [place] Laboratory Glomerular null 11/28 St[facility] Studies Basement /2017 [facility] - Membrane IgG [place] Ab Laboratory Anti-Proteina null 11/28 St[facility] Studies se 3 (c-ANCA) /2017 [facility] - [place] Laboratory Anti-Myeloper null 11/28 St. Studies oxidase Ab /2017 [facility] - (p-ANCA) [place] Laboratory Total Protein 7.5 g/dL 11/28 St[facility] Studies [facility] - [place] Laboratory Protein Protein 11/28 . Studies Electrophores Electrophor [facility] - is M-Jaime 2 esis [place] M-Jaime 2 Laboratory Protein Protein 11/28. Studies Electrophores Electrophor /2017 [facility] - is M-Jaime esis [place] M-Jaime Laboratory Protein Protein 11/28. Studies Electrophores Electrophor /2017 [facility] - is Interpret esis [place] Interpret Laboratory PEP Abnormal PEP 11/28. Studies Protein Band Abnormal [facility] - 3 Protein [place] Band 3 Laboratory Gamma 2.2 g/dL 11/28. Studies Globulins [facility] - [place] Laboratory Rmsso-1-Cmmem 1.0 g/dL 11/28. Studies tk [facility] - [place] Laboratory Edejk-8-Hgkci 0.7 g/dL 11/28 [facility] Studies tk [facility] - [place] Laboratory Hepatitis C null 11/28 [facility] Studies RNA (PCR) log [facility] - IUs/ml [place] Laboratory Hepatitis C null 11/28 [facility] Studies RNA (PCR) /2017 [facility] - IUs/ml [place] Laboratory Transferrin % Transferrin 11/28 [facility] Studies Saturation % [facility] - Saturation [place] Laboratory Transferrin 137 mg/dL 180 - 329 11/28 [facility] Studies [facility] - [place] Laboratory Serum Folate 8.1 ng/ml 5.21 11/28 [facility] Studies [facility] - [place] Laboratory Iron Level null 45 - 182 11/28 St[facility] Studies [facility] - [place] Laboratory Ferritin 166.7 ng/ml 23.9 - 11/28 [facility] Studies 336.2 [facility] - [place] Laboratory Total Iron 192 ug/dL 250 - 460 11/28 [facility] Studies Binding [facility] - Capacity [place] Laboratory Percent 1.08 % 0.4 - 2.05 11/28 [facility] Studies Reticulocyte [facility] - Count [place] Laboratory Absolute 0.04 M/uL 0.02 - 11/28 [facility] Studies Reticulocyte 0.11 [facility] - Count [place] Laboratory Creatine 3.6 ng/ml 0.3 - 4.0 11/27 [facility] Studies Kinase MB /2017 [facility] Creatine 277 IU/L 22 - 269 11/27 St[facility] Studies Kinase /2017 [facility] Laboratory Troponin I 0.08 ng/mL 11/27 St[facility] Studies /[facility] [place] Laboratory Triglycerides 88 mg/dL 35 - 160 11/27 St[facility] Studies Level /2017 [facility] Laboratory LDL 37 11/27 [facility] Studies Cholesterol, /2017 [facility] Calculated [facility] Laboratory HDL 17 mg/dL 27 - 67 11/27 [facility] Studies Cholesterol /2017 [facility] Laboratory Cholesterol/H 4.24 11/27 [facility] Studies DL Ratio /2017 [facility] Laboratory Cholesterol 72 mg/dL 11/27 [facility] Studies Level /2017 [facility] Laboratory Urine Random 155 mg/dl 11/26 [facility] Studies Total Protein /2017 [facility] Laboratory Urine 56.5 mg/dL 11/26 [facility] Studies [facility]inine [facility] Hemoglobin 7.4 % 4 - 6.0 11/26 [facility] Studies A1c /2017 [facility] Parathyroid 305 pg/mL 12 - 88 11/26 [facility] Studies Hormone /2017 [facility] - (Intact) [facility] Laboratory Thyroid 3.91 uIU/mL 0.34 - 11/26 [facility] Studies Stimulating 5.60 [facility] - Hormone (TSH) [facility] Laboratory Free 1.70 ng/dl 0.58 - 11/26 [facility] Studies Thyroxine 1.64 /2017 [facility] Laboratory Procalcitonin 7.95 ng/mL 11/26 [facility] Studies /2017 [facility] Laboratory B-Type 517 pg/ml 11/26 [facility] Studies Natriuretic /2017 [facility] - Peptide [facility] Laboratory Direct 0.3 mg/dL 0 - 0.2 11/26 [facility] Studies Bilirubin /2017 [facility] Laboratory Rapid 0.07 ng/mL 11/26 [facility] Studies Troponin I /2017 [facility] Laboratory Prothrombin 19.0 9.5 - 12.5 11/26 [facility] Studies Time SECONDS /2017 [facility] Laboratory INR 1.60 11/[address] [facility] - Normalized [place] Ratio Vital Signs Vital Sign Value Date Comments Source Heart Rate 101 12/06/2017 [facility] [place] Respitory Rate 31 12/06/[address] [facility] [place] Systolic (mm Hg) 193 12/06/[address] [facility] [place] Diastolic (mm Hg) 94 12/06/[address] [facility] [place] Temperature Oral (F) 97.1 F 12/05/2017 [facility] [place] Weight 382.72 12/05/[address] [facility] [place] Height 76 12/05/[address] [facility] [place] Encounters Location Location Encounter Encounter Reason Attending ADM DC Status Source Details Type Number For Provider Date Date Visit [facility] Discharged [id number] 11/26 12/06 [facility] [place] [facility] Procedure Code Date Perfomer Comments Source Anaerobic Blood [facility] Culture 8 - [place] Aerobic Blood [facility] 8 - [place] Head Brain Wo [id number] [facility] Cont 8 - [place] Chest Single [id number] [facility] View 8 - [place] INSERTION OF [id number] [facility] [facility] [place] HEMODIALYSIS.. Chest Single [id number] [facility] [place] Fluoroscopy >1 [id number] [facility] [place] Chest Single [id number] [facility] [place] Chest Single [id number] [facility] [place]
--- NOTE | 2018-10-21 10:49 | ER ---
Nurse's Notes [facility] Name: Rodrigue Arreola Jr Age: 28 yrs Sex: Male : 1990 Arrival Date: 10/21/2018 Time: 09:09 Bed 8 Private MD: Diagnosis: Displacement of vascular dialysis catheter Presentation: 10/21 09:10 Presenting complaint: EMS states: He pulled his dialysis catheter from left chest wall jl7 while sleeping, site appears to have clotted off. Pt denies any pain at this time. Scheduled dialysis Saturday, and Saturday. Transition of care: patient was not received from another setting of care. Onset of symptoms was October 21, 2018. Risk Assessment: Do you want to hurt yourself or someone else? Patient reports no desire to harm self or others. Initial Sepsis Screen: Does the patient meet any 2 criteria? No. Patient's initial sepsis screen is negative. Does the patient have a suspected source of infection? No. Patient's initial sepsis screen is negative. Care prior to arrival: Glucose check: 92. 09:10 Method Of Arrival: EMS: [facility] jl7 09:10 Acuity: DAVID 3 jl7 Triage Assessment: 09:19 General: Appears in no apparent distress. uncomfortable, Behavior is calm, cooperative, jl7 appropriate for age. Pain: Denies pain. EENT: No signs and/or symptoms were reported regarding the EENT system. Neuro: Level of Consciousness is awake, alert, obeys commands, Oriented to person, place, time, situation. Cardiovascular: Patient's skin is warm and dry. Respiratory: Airway is patent Respiratory effort is even, unlabored, Respiratory pattern is regular, symmetrical. GI: No signs and/or symptoms were reported involving the gastrointestinal system. : No signs and/or symptoms were reported regarding the genitourinary system. Derm: Musculoskeletal: No signs and/or symptoms reported regarding the musculoskeletal system. Historical: - Allergies: :19 No Known Allergies; jl7 - Home Meds: :19 amlodipine oral [Active]; Clonazepam Oral [Active]; Keppra Oral [Active]; Lipitor Oral jl7 [Active]; losartan Oral [Active]; Metoprolol Tartrate Oral [Active]; Novolog Sub-Q [Active]; - PMHx: 09:19 CHF; CVA; Diabetes - IDDM; Dialysis; Saturday, , Saturday; ESRD; Hypertension; jl7 Hypothyroidism; - Immunization history:: Adult Immunizations up to date. - Social history:: Smoking status: Patient/guardian denies using alcohol, street drugs, The patient lives with family. - Ebola Screening: : No symptoms or risks identified at this time. - Family history:: not pertinent. - Hospitalizations: : No recent hospitalization is reported. Screenin:11 Abuse screen: Denies threats or abuse. Nutritional screening: No deficits noted. tw2 Tuberculosis screening: No symptoms or risk factors identified. Fall Risk None identified. Assessment: 09:10 General: Appears in no apparent distress. Behavior is calm, cooperative, flat. Pain: tw2 Denies pain. Neuro: Level of Consciousness is awake, alert, obeys commands, Oriented to person, place, time, situation. Cardiovascular: Denies chest pain, shortness of breath, Heart tones S1 S2 Capillary refill < 3 seconds Patient's skin is warm and dry. Respiratory: Airway is patent Respiratory effort is even, unlabored, Respiratory pattern is regular, symmetrical, Breath sounds are clear bilaterally. GI: No signs and/or symptoms were reported involving the gastrointestinal system. Abdomen is round non-distended, Bowel sounds present X 4 quads. : No signs and/or symptoms were reported regarding the genitourinary system. EENT: No signs and/or symptoms were reported regarding the EENT system. Derm: EMS reports "he woke up and noted the whole dialysis catheter was out, he placed a dressing over the insertion site and it wasn't bleeding so we didn't remove the bandage", dried blood noted to upper left chest. Musculoskeletal: Circulation, motion, and sensation intact. Range of motion: intact in all extremities. 10:11 Cardiovascular: old dialysis fistula on lower left fa, pt states it is unused. tw2 10:12 Reassessment: Patient appears in no apparent distress at this time. No changes from tw2 previously documented assessment. Patient and/or family updated on plan of care and expected duration. Pain level reassessed. Patient is alert, oriented x 3, equal unlabored respirations, skin warm/dry/pink. 11:39 Reassessment: Patient appears in no apparent distress at this time. No changes from tw2 previously documented assessment. Patient and/or family updated on plan of care and expected duration. Pain level reassessed. Patient is alert, oriented x 3, equal unlabored respirations, skin warm/dry/pink. Vital Signs: 09:19 BP 143 / 103; Pulse 85; Resp 16 S; Temp 98.1(O); Pulse Ox 98% on R/A; Weight 130.63 kg jl7 (R); Height 6 ft. 4 in. (193.04 cm) (R); Pain 0/10; 10:11 BP 151 / 103; Pulse 78; Resp 15; Pulse Ox 100% on R/A; tw2 11:38 BP 150 / 100; Pulse 74; Resp 17; Pulse Ox 100% on R/A; tw2 09:19 Body Mass Index 35.06 (130.63 kg, 193.04 cm) 7 ED Course: 09:09 Patient arrived in ED. jl7 09:09 Placed in gown. Bed in low position. Call light in reach. Side rails up X 1. Adult w/ tw2 patient. building estimator on. Pulse ox on. NIBP on. Warm blanket given. 09:13 Triage completed. jl7 09:19 Arm band placed on right wrist. jl7 09:38 Courtney Izaguirre MD is Attending Physician. ma2 09:52 Yahaira Serrano, RN is Primary Nurse. tw2 10:47 Bubba Heaton MD is Hospitalizing Provider. ma2 11:00 Inserted saline lock: 22 gauge in right antecubital area, using aseptic technique. tw2 Blood collected. 11:04 CMP Sent. tw2 11:55 Report given to FRITZ Traore. tw2 12:44 Report given to Alyssia HU. aj 13:03 No provider procedures requiring assistance completed. Patient admitted, IV remains in aj place. intact, bleeding controlled, No redness/swelling at site. Pressure dressing applied. Administered Medications: No medications were administered Outcome: 10:47 Decision to Hospitalize by Provider. ma2 13:03 Admitted to Med/surg accompanied by tech, family with patient, via wheelchair, room aj 424, with chart, Report called to Alyssia 13:03 Condition: good 13:03 Instructed on the need for admit. 13:04 Patient left the ED. aj Signatures: Eugenie Hdz RN RN aj Wise, Tara, RN RN tw2 Carol Lynn RN RN jl7 Courtney Izaguirre MD MD ma2 Corrections: (The following items were deleted from the chart) :13 09:10 Care prior to arrival: None. dulce maria jl7
--- NOTE | 2018-10-21 10:50 | EDPHYS ---
Physician Documentation [facility] Name: Rodrigue Arreola Jr Age: 28 yrs Sex: Male : 1990 Arrival Date: 10/21/2018 Time: 09:09 Bed 8 Private MD: ED Physician Courtney Izaguirre HPI: 10/21 10:07 This 28 yrs old Black Male presents to ER via EMS with complaints of Pulled Dialysis ma2 Catheter. 10:07 The patient has a dialysis catheter in the left subclavian area. Onset: The ma2 symptoms/episode began/occurred suddenly, 1 day(s) ago. Associated signs and symptoms: Pertinent negatives: None. The patient has not experienced similar symptoms in the past. accidently pulled his HD catheter that was placed 2 weeks ago, has scheduled HD on , has no symptoms now, his vs wnl . Historical: - Allergies: 09:19 No Known Allergies; jl7 - Home Meds: 09:19 amlodipine oral [Active]; Clonazepam Oral [Active]; Keppra Oral [Active]; Lipitor Oral jl7 [Active]; losartan Oral [Active]; Metoprolol Tartrate Oral [Active]; Novolog Sub-Q [Active]; - PMHx: 09:19 CHF; CVA; Diabetes - IDDM; Dialysis; Saturday, , Saturday; ESRD; Hypertension; jl7 Hypothyroidism; - Immunization history:: Adult Immunizations up to date. - Social history:: Smoking status: Patient/guardian denies using alcohol, street drugs, The patient lives with family. - Ebola Screening: : No symptoms or risks identified at this time. - Family history:: not pertinent. - Hospitalizations: : No recent hospitalization is reported. ROS: 10:07 Constitutional: Negative for fever, chills, and weight loss, Cardiovascular: Negative ma2 for chest pain, palpitations, and edema, Respiratory: Negative for shortness of breath, cough, wheezing, and pleuritic chest pain, Abdomen/GI: Negative for abdominal pain, nausea, diarrhea, and constipation, MS/Extremity: Negative for injury and deformity, Psych: Negative for depression, anxiety, suicide ideation, homicidal ideation, and hallucinations. 10:07 All other systems are negative. Exam: 10:07 Constitutional: This is a well developed, well nourished patient who is awake, alert, ma2 and in no acute distress. Cardiovascular: Regular rate and rhythm with a normal S1 and S2. No gallops, murmurs, or rubs. Normal PMI, no JVD. No pulse deficits. Respiratory: Lungs have equal breath sounds bilaterally, clear to auscultation and percussion. No rales, rhonchi or wheezes noted. No increased work of breathing, no retractions or nasal flaring. Abdomen/GI: Soft, non-tender, with normal bowel sounds. No distension or tympany. No guarding or rebound. No evidence of tenderness throughout. 10:07 Chest/axilla: left anterior chest wall HD catheter pulled . Vital Signs: 09:19 BP 143 / 103; Pulse 85; Resp 16 S; Temp 98.1(O); Pulse Ox 98% on R/A; Weight 130.63 kg 7 (R); Height 6 ft. 4 in. (193.04 cm) (R); Pain 0/10; 10:11 BP 151 / 103; Pulse 78; Resp 15; Pulse Ox 100% on R/A; tw2 11:38 BP 150 / 100; Pulse 74; Resp 17; Pulse Ox 100% on R/A; tw2 09:19 Body Mass Index 35.06 (130.63 kg, 193.04 cm) 7 MDM: 09:39 Patient medically screened. nv2 10:07 Differential diagnosis: discussed with. [facility] 10:46 Data reviewed: vital signs, nurses notes. Counseling: I had a detailed discussion with [facility] the patient and/or guardian regarding: the historical points, exam findings, and any diagnostic results supporting the discharge/admit diagnosis, the need for further work-up and treatment in the hospital. ED course: discussed with dr hernandez and dr. heaton. 10/21 10:52 Order name: CMP; Complete Time: 12:45 nv2 10/21 12:13 Order name: CONS Physician Consult EDTN 10/21 10:55 Order name: IV Start; Complete Time: 11:04 2 10/21 12:47 Order name: Consult Surgery-Jeimy (Gen surgery) nv2 Administered Medications: No medications were administered Disposition: 10/21/18 10:47 Hospitalization ordered by Bubba Heaton for Observation. Preliminary diagnosis is Displacement of vascular dialysis catheter. - Bed requested for Telemetry/MedSurg (observation). - Status is Observation. aj - Condition is Stable. - Problem is new. - Symptoms are unchanged. UTI on Admission? No Signatures: Dispatcher [employer] EDMS Sabrina Dalton Eugenie Cartwright, RN RN aj Yahaira Serrano, RN RN tw2 Carol Lynn, RN RN jl7 Courtney Izaguirre MD MD ma2 Corrections: (The following items were deleted from the chart) 10:08 10:07 accidently pulled his HD catheter that was placed 2 weeks ago, has scheduled HD ma2 on Saturday, has no symptoms now, his vs wnl . ma2 12:28 10:47 Hospitalization Ordered by Bubba Heaton MD for Observation. Preliminary diagnosis bd is Displacement of vascular dialysis catheter. Bed requested for Telemetry/MedSurg (observation). Status is Observation. Condition is Stable. Problem is new. Symptoms are unchanged. UTI on Admission? No. ma2 13:04 12:28 10/21/2018 10:47 Hospitalization Ordered by Bubba Heaton MD for Observation. aj Preliminary diagnosis is Displacement of vascular dialysis catheter. Bed requested for Telemetry/MedSurg (observation). Status is Observation. Condition is Stable. Problem is new. Symptoms are unchanged. UTI on Admission? No. bd
[2018-10-21 11:40] LABS: Albumin 3.5 g/dL (3.4-5.0); Bilirubin Total 0.3 mg/dL (0.2-1.0); Potassium 4.6 mmol/L (3.5-5.1); Protein, Total 7.9 g/dL (6.4-8.2)
[2018-10-21 14:58] LABS: Protime INR 1.02
[2018-10-21 18:01] LABS: Urine Appearance CLEAR; Urine Bilirubin NEGATIVE (NEG); Urine Blood 2+ (NEG); Urine Color YELLOW; Urine Glucose NEGATIVE (NEG); Urine Protein 2+ (NEG); Urine Specific Gravity 1.015 (1.005-1.030); Urine Urobilinogen 0.2 mg/dL (0.2-1.0); Urine pH 5.5 (5.0-7.0)
[2018-10-21 18:08] LABS: Urine Microscopic Reflex ORDER UMIC
[2018-10-21 18:14] LABS: Urine Bacteria <20 /HPF (NONE SEEN); Urine Culture Reflex Order NOT NEEDED; Urine RBC <5 /HPF (NONE SEEN)
--- NOTE | 2018-10-21 18:52 | P.HP ---
Certification for Inpatient Patient admitted to: Observation Practitioner: I am a practitioner with admitting privileges, knowledge of patient current condition, hospital course, and medical plan of care. Services: Services provided to patient in accordance with Admission requirements found in Title 42 Section 412.3 of the Code of Federal Regulations Patient History Date of Service: 10/21/18 Reason for admission: Displays hemodialysis catheter History of Present Illness: This is a 28-year-old male with history of hypertension, diabetes, history of stroke and ESRD on hemodialysis Saturday, and Saturday admitted for displaced hemodialysis catheter. Per patient, he thinks he accidentally pulled out the hemodialysis catheter when he was tossing and turning at night. He states that he is not sure exactly what happened though. He does not have any other complaints at this time. Denies any symptoms of chest pain, shortness of breath, dizziness, vision changes, presyncopal/syncopal episode, palpitations, GI or complaints. Denies any lower extremity swelling at this time. In the ER, General Surgery was consulted for hemodialysis catheter placement. At the time of my exam, patient was alert enough to x3, in no acute distress Allergies No Known Allergies Allergy (Verified 11/26/17 19:31) Home Medications: Amlodipine Besylate 1 tab PO DAILY 10/21/18 Atorvastatin Calcium [Lipitor] 40 mg PO BEDTIME 10/21/18 Cinacalcet HCl [Sensipar*] 1 tab PO DAILY 10/21/18 Hydralazine [Apresoline*] 1 tab PO PRN 10/21/18 Insulin Glargine,Hum.rec.anlog [Lantus Solostar] 10 unit SQ DAILY 10/21/18 Losartan Potassium 1 tab PO DAILY 10/21/18 Metoprolol Succinate 50 mg PO DAILY 10/21/18 Mirtazapine [Remeron*] 1 tab PO DAILY 10/21/18 Sevelamer Carbonate [Renvela] 1 tab PO TIDWM 10/21/18 Sucroferric Oxyhydroxide [Velphoro] 1 tab PO DAILY 10/21/18 clonazePAM [Clonazepam] 1 tab PO DAILY 10/21/18 - Past Medical/Surgical History Has patient received pneumonia vaccine in the past: No Diabetic: Yes -: CHF, systolic dysfunction-30% -: Malignant hypertension -: Diabetes mellitus type 2 -: Obstructive sleep apnea -: Chronic lymphedema -: Chronic renal disease -: Anemia of chronic disease -: cholecystectomy -: Left lower leg Debriedment -: HD catheter placement Psychosocial/ Personal History: The patient is single. He has a partner. He has 3 children. He does not work - Family History Father -: Heart disease, Hypertension, Diabetes, Stroke, Kidney disease - Social History Smoking Status: Never smoker Alcohol use: No CD- Drugs: No Caffeine use: No Place of Residence: Home Review of Systems 10-point ROS is otherwise unremarkable Physical Examination - Vital Signs Temperature: 98.1 F Blood Pressure: 135/78 Pulse: 75 Respirations: 20 Pulse Ox (%): 100 - Physical Exam General: Alert, In no apparent distress, Oriented x3 HEENT: Atraumatic, PERRLA, Mucous membr. moist/pink, EOMI, Sclerae nonicteric Neck: Supple, 2+ carotid pulse no bruit, No LAD, Without JVD or thyroid abnormality Respiratory: Clear to auscultation bilaterally, Normal air movement Cardiovascular: Regular rate/rhythm, Normal S1 S2 Gastrointestinal: Normal bowel sounds, No tenderness Musculoskeletal: No tenderness Integumentary: No rashes Neurological: Normal gait, Normal speech, Normal strength at 5/5 x4 extr, Normal tone, Normal affect Lymphatics: No axilla or inguinal lymphadenopathy - Studies Laboratory Data (last 24 hrs) 10/21/18 11:00: Sodium 136, Potassium 4.6, BUN 114 H, Creatinine 17.00 H*, Glucose 125 H, Total Bilirubin 0.3, AST 33, ALT 23, Alkaline Phosphatase 247 H Assessment and Plan - Problems (Diagnosis) (1) hemodialysis catheter displacement Current Visit: Yes Status: Acute (2) ESRD (end stage renal disease) on dialysis Current Visit: Yes Status: Acute (3) Morbid obesity Current Visit: No Status: Active - Plan This is a 28-year-old male with: Displaced hemodialysis catheter ESRD, on dialysis Saturday, , Saturday General surgery consulted, pending surgery for hemodialysis catheter replacement. Once patient is dialysis catheter replaced, he will receive dialysis. Likely discharge home after dialysis tomorrow. DVT prophylaxis: Hold GI prophylaxis: None Diet: NPO for surgery. Renal diet after Disposition: Pending catheter replacement and dialysis. Likely discharge home after dialysis tomorrow. - Advance Directives Does patient have a Living Will: No Does patient have a Durable POA for Healthcare: No Time Spent Managing Pts Care (In Minutes): 45
[2018-10-21] MEDS: SEVELAMER CARBONATE 800 MG TABLET PO SCH (23:35)
[2018-10-22 04:17] LABS: Absolute Lymphocytes (CBC) 1.4 K/uL (0.7-4.9); Absolute Monocytes 0.5 K/uL (0.1-1.3); Absolute Neutrophil 2.9 K/uL (1.8-8.0); Basophils % 0.6 % (0-1.3); Eosinophils % 6.7 % (0-4.4); MPV 8.9 fL (7.6-11.3); RBC Red Blood Cell Count 3.77 M/uL (4.33-5.43)
[2018-10-22 04:55] LABS: Albumin 3.3 g/dL (3.4-5.0); Bilirubin Total 0.3 mg/dL (0.2-1.0); Potassium 4.1 mmol/L (3.5-5.1); Protein, Total 7.2 g/dL (6.4-8.2)
[2018-10-22] MEDS: SEVELAMER CARBONATE 800 MG TABLET PO SCH ×3 (08:00→17:00)
[2018-10-22] MEDS ORDERED: NS 0.9% VIAL 10 ML ONE (10:30)
[2018-10-22] MEDS ORDERED: BUPIVACA 0.25%/EPI 0.0005% MDV 50 ML VIAL ONE (10:30)
[2018-10-22] MEDS ORDERED: HEPARIN 5000 UNIT/ML 1 ML VIAL ONE (10:30)
[2018-10-22] MEDS ORDERED: NA CHLORIDE 0.9% 500 ML ONE (10:49)
[2018-10-22] MEDS ORDERED: NA CHLORIDE 0.9% 50 ML ONE (11:14)
[2018-10-22] MEDS ORDERED: PROPOFOL 200 MG/20 ML VIAL IV ONE ×2 (11:21→12:10)
[2018-10-22] MEDS ORDERED: LIDOCAINE 2% MPF 5 ML VIAL ONE ×2 (11:21→12:10)
[2018-10-22] MEDS ORDERED: FENTANYL CITR 100 MCG/2 ML ONE (11:21)
[2018-10-22] MEDS ORDERED: MIDAZOLAM HCL 2 MG/2 ML INJ ONE (11:23)
[2018-10-22] MEDS ORDERED: CEFAZOLIN 1GM (PREMIX IV) 1 GM/50 ML BAG ONE (11:28)
--- NOTE | 2018-10-22 12:54 | P.OP ---
Preoperative diagnosis: End Stage Renal Disease Postoperative diagnosis: End Stage Renal Disease Primary procedure: Attempted Subclavian Tunnelled Hemodialysis Catheter placement Anesthesia: GETA + Local Estimated blood loss: <5cc Specimen: None Findings: Unable to traverse SVC Complications: None Transferred to: Recovery Room Condition: Good
--- NOTE | 2018-10-22 13:11 | CON ---
Date of Consultation: 10/22/2018 Brief History Of Present Illness: The patient is a 28-year-old gentleman with a his tory of end-stage renal disease, who presents to the hospital with having accidentally removed his le ft chest tunneled hemodialysis catheter. He states that late last evening he was rolling around in b ed and discovered that the catheter had been loosened and essentially removed and came to the emergen cy room with the above-stated complaints. The catheter was found to be out and as such, the patient now requires replacement of the catheter. He states that he had a catheter placed with Dr. Avery mcdonald several months ago, that only worked for a short period of time and ultimately required a revision to the contralateral side on the left side and he also had difficulty with fistula placement in the l eft hand with non-maturation of what sounds like radiocephalic fistula as he has an incision in this area. However, he had a revision of the radiocephalic fistula, that also required he states several balloon dilatations for central venous stenosis. He is not sure where the central venous stenosis wa s. If it was the right or the left or both. But currently has no hemodialysis access that is able t o be accessed at this time. He does have a fistula which feels to have a good thrill in the left michael e. However, he states that it is less than a week old and as such, is not mature enough for cannulat ion at this time. Past Medical History: Significant for CHF with systolic dysfunction of 30% ejection fraction, malign ant hypertension, diabetes type 2, obstructive sleep apnea, chronic lymphedema, chronic renal disease , anemia of chronic disease. He has had a CVA/stroke. He gets dialysis Saturday, , Saturday. He denies any other complaints at this time. Past Surgical History: Includes cholecystectomy, left radiocephalic fistula with revision, placement of multiple hemodialysis catheters in both the right and left position and left lower leg debridemen t. Social History: He is single. He has 3 children. He is unemployed. His father has heart disease, hypertension, diabetes, stroke, kidney disease. He denies smoking, alcohol, or recreational drug use . Home Medications: Include amlodipine, atorvastatin, Sensipar, Apresoline, insulin, losartan, metopro lol, Remeron, Renvela, Velphoro, and clonazepam. Physical Examination: General: At the time of my examination, his BMI is 21.9. Vital Signs: His vital signs include a blood pressure of 167/82, pulse is 80, respiratory rate 18, t emperature 98.1. General: He is awake, alert, oriented. Psychiatric: Appropriate and conversive. HEENT: Normocephalic. Sclerae anicteric. Mucous membranes are moist. Oropharynx clear. Neck: Supple. No JVD. Chest: There is a dressing over the left chest over the insertion site from a previous dialysis cath eter as described above. He has multiple markings from insertions from previous catheters on his michelle st wall and neck region. Chest, otherwise, normal expansion excursion. Cardiovascular: Regular rate and rhythm. Pulmonary: Clear to auscultation bilaterally. Abdomen: Soft, nontender, nondistended. Extremities: No clubbing, cyanosis, or edema. Skin: Warm and dry. Laboratory Data: Reveals white blood cell count of 5.1, hemoglobin 11.9, hematocrit 36.0, platelet c ount is 175. His electrolytes are sodium 135, potassium 4.1, chloride 95, carbon dioxide is 24, BUN 115, creatinine 18, glucose is 95, calcium 9.1, total bilirubin 0.3, AST 29, ALT 18, alkaline phospha tase is 167. His UA shows 2+ blood, 2+ protein. He has had no imaging performed. Assessment And Plan: This is a 28-year-old male, who comes in with end-stage renal disease due to mu ltiple medical problems as described above, who accidentally removed his hemodialysis catheter yester day and is now in need for replacement of hemodialysis catheter until his fistula matures. I have explained the risks, benefits, alternatives of replacement of hemodialysis catheter including but not limited to bleeding, infection, damage to surrounding tissues, pneumothorax, need for further operation and procedures. The patient agrees to proceed as indicated. LISSETH/MAI Voice ID: [id number] Report ID: [id number]
--- NOTE | 2018-10-22 13:13 | RAD REPORT ---
EXAM DESCRIPTION: [facility] Single View10/22/2018 1:07 pm CLINICAL HISTORY: Device placement attempted central venous catheter placement COMPARISON: April 2018 FINDINGS: The lungs appear clear of acute infiltrate. A pneumothorax is not visualized. The heart is mildly enlarged
--- NOTE | 2018-10-22 13:14 | RAD REPORT ---
EXAM DESCRIPTION: RAD - Fluoroscopy <1 Hour - 10/22/2018 12:56 pm CLINICAL HISTORY: Device placement central venous catheter placement FINDINGS: A central venous catheter was attempted by Dr. Kaplan. The line could not be placed into the superior vena cava and was removed. Fluoroscopy time 2.9 minutes. Twelve fluoroscopic spot images obtained
[2018-10-22] MEDS: LABETALOL 20 MG/4ML SYRINGE IV ONE ×2 (13:15→13:28)
[2018-10-22] MEDS ORDERED: D50W 25 GM/50 ML SYRINGE IV ONE (14:14)
--- NOTE | 2018-10-22 19:05 | P.DS ---
Admission Date: 10/21/18 Discharge Date: 10/24/18 Disposition: ROUTINE DISCHARGE Reason for Admission: Displays hemodialysis catheter - Problems (1) hemodialysis catheter displacement Onset Date: 10/22/18 Status: Acute (2) ESRD (end stage renal disease) on dialysis Onset Date: 10/22/18 Status: Acute (3) Morbid obesity Onset Date: 10/22/18 Status: Active Brief History of Present Illness: This is a 28-year-old male with history of hypertension, diabetes, history of stroke and ESRD on hemodialysis Saturday, and Saturday admitted for displaced hemodialysis catheter. Per patient, he thinks he accidentally pulled out the hemodialysis catheter when he was tossing and turning at night. He states that he is not sure exactly what happened though. He does not have any other complaints at this time. Denies any symptoms of chest pain, shortness of breath, dizziness, vision changes, presyncopal/syncopal episode, palpitations, GI or complaints. Denies any lower extremity swelling at this time. In the ER, General Surgery was consulted for hemodialysis catheter placement. At the time of my exam, patient was alert enough to x3, in no acute distress Hospital Course: Patient was admitted for a hemodialysis catheter placement after his previous 1 had been displaced. General surgery and nephrology were consulted. Catheter placement and was done by a general surgery here, unsuccessful as patient has a history of difficulties with catheter placements and requiring balloon previously. Patient was supposed to be transferred to [facility]. I did do a doc to doc, patient was accepted as per the hospitalist there. Unsure why the patient was denied overnight. Patient was then transferred to [facility] to surgery for catheter placement. He then returned back care for dialysis. He was discharged home after dialysis session. He has another dialysis scheduled at 11:00 a.m. today. He was instructed to continue his previous hemodialysis schedule. Vital Signs/Physical Exam: Temp Pulse Resp BP Pulse Ox 97.9 F 75 20 160/90 H 98 10/22/18 16:00 10/22/18 16:00 10/22/18 16:00 10/22/18 16:00 10/22/18 16:00 General: Alert, In no apparent distress HEENT: Atraumatic, PERRLA, EOMI Neck: Supple, JVD not distended Respiratory: Clear to auscultation bilaterally, Normal air movement Cardiovascular: Regular rate/rhythm, Normal S1 S2 Gastrointestinal: Normal bowel sounds, No tenderness Musculoskeletal: No tenderness Integumentary: No rashes Neurological: Normal speech, Normal tone, Normal affect Lymphatics: No axilla or inguinal lymphadenopathy Laboratory Data at Discharge: WBC 5.1 K/uL (4.3-10.9) 10/22/18 03:32 Hgb 11.9 g/dL (13.6-17.9) L 10/22/18 03:32 Hct 36.0 % (39.6-49.0) L 10/22/18 03:32 Plt Count 175 K/uL (152-406) 10/22/18 03:32 PT 12.0 SECONDS (9.5-12.5) 10/21/18 14:10 INR 1.02 10/21/18 14:10 APTT 30.6 SECONDS (24.3-36.9) 10/21/18 14:10 Sodium 135 mmol/L (136-145) L 10/22/18 03:32 Potassium 4.1 mmol/L (3.5-5.1) 10/22/18 03:32 BUN 115 mg/dL (7-18) H 10/22/18 03:32 Creatinine 18.10 mg/dL (0.55-1.3) H* D 10/22/18 03:32 Glucose 95 mg/dL (74-106) 10/22/18 03:32 Total Bilirubin 0.3 mg/dL (0.2-1.0) 10/22/18 03:32 AST 29 U/L (15-37) 10/22/18 03:32 ALT 18 U/L (12-78) 10/22/18 03:32 Alkaline Phosphatase 167 U/L (45-117) H 10/22/18 03:32 Home Medications: Amlodipine Besylate 1 tab PO DAILY 10/21/18 Atorvastatin Calcium [Lipitor] 40 mg PO BEDTIME 10/21/18 Cinacalcet HCl [Sensipar*] 1 tab PO DAILY 10/21/18 Hydralazine [Apresoline*] 1 tab PO PRN 10/21/18 Insulin Glargine,Hum.rec.anlog [Lantus Solostar] 10 unit SQ DAILY 10/21/18 Losartan Potassium 1 tab PO DAILY 10/21/18 Metoprolol Succinate 50 mg PO DAILY 10/21/18 Mirtazapine [Remeron*] 1 tab PO DAILY 10/21/18 Sevelamer Carbonate [Renvela] 1 tab PO TIDWM 10/21/18 Sucroferric Oxyhydroxide [Velphoro] 1 tab PO DAILY 10/21/18 clonazePAM [Clonazepam] 1 tab PO DAILY 10/21/18 Patient Discharge Instructions: Please follow up with the primary care physician in 1 week. Please continue regular hemodialysis as scheduled Diet: Renal Activity: Ad hema Time spent managing pt's care (in minutes): 45
--- NOTE | 2018-10-22 23:35 | OP ---
Date of Procedure: 10/22/2018 Surgeon: Enrique Kaplan MD, Preoperative Diagnosis: End-stage renal disease. Postoperative Diagnosis: End-stage renal disease. Procedure Performed: Attempted right subclavian tunneled hemodialysis catheter placement using micro introducer set and fluoroscopy. Anesthesia: General endotracheal plus local with 0.25% Marcaine with epinephrine. Estimated Blood Loss: Less than 5 cc. Specimen: None. Findings: Unable to traverse the SVC with the catheter. Microwire was able to traverse, but standar d wire had difficulty traversing this area as well. Complications: None. Disposition: Transferred to recovery room in good condition. Procedure In Detail: After informed consent was obtained, patient was brought to the operating room, prepped and draped in the usual sterile fashion. After adequate anesthesia was achieved, the patien t was placed in steep Trendelenburg position. I used an ultrasound to inspect the internal jugular v ein on the right, which was found to be somewhat small on inspection even in steep Trendelenburg. Th e patient states that he had a catheter placed here not too long ago in this area prior to surgery. Therefore, I looked at the subclavian and found it to be patent. I used the 0.25% Marcaine with epin ephrine to anesthetize the skin under the subclavian vein and I used a microintroducer set to cannula te the subclavian vein. On first attempt, dark red, nonpulsatile blood was returned. The microwire was advanced. Fluoroscopy confirmed position to be at the confluence of the SVC. I then made a smal l afshin incision over the area and placed the introducer sheath over the wire using Seldinger techniqu e. A standard wire was brought into the field and the microwire was removed after the inner introduc er sheath was removed from the microintroducer set. The standard wire was then placed in through the microintroducer sheath and fluoroscopy once again confirmed position. At this time, I then created a tunneling tract several centimeters below this subclavian insertion site and I tunneled and brought the catheter up through this area. Sequential dilatation was then performed, which was quite easy u sing sequential dilators and the introducer sheath was introduced at this time. Fluoroscopy confirme d position at this time at the subclavian SVC confluence. I then removed the wire and placed the cat heter through this area. The catheter was placed into the area. Fluoroscopy was attempted to be use d to confirm position. However, there was a kink in the catheter, it had been curling up at the conf luence of the SVC. I pulled the catheter back and attempted to place the standard wire through this to traverse this area. However, multiple attempts on backing and advancing the catheter as well as u sing the wire through the multiple ports were unable to traverse the SVC, and as such, I could not po sition the catheter in appropriate position due to some difficulty passing the confluence of the subc lavian vein. I could not bring the catheter to the SVC position, and as such, I could not safely max ce this catheter into its position as the wire continued to be difficult to push despite multiple att empts. The patient was positioned in prone position. Arm was distracted. Multiple maneuvers were a ttempted to try and see if we could advance the wire beyond this difficult area to advance the cathet er. However, I was unsuccessful, and as such, I decided to remove the catheter. The patient had pre ssure held in this area over the subclavian insertion site and was brought back up in head-up positio n. After hemostasis was achieved, the area was inspected, which was found to have good hemostasis at this time. I then cleansed the skin incisions and closed these. At this time, a stat chest x-ray w ill be performed next in the fluoroscopy department, and the patient will be transferred to vascular surgeon where he will be evaluated with his history of prior ballooning by his description and diffic ult catheter placement performed in the past requiring vascular surgeon intervention. I believe this would probably be in the patient's best interest. I have discussed this preoperatively and postoper atively with the patient's family as well. His was present in the recovery room and for the preoperative discussion. They agreed to proceed as indicated. All counts were correct at the end of the case. LISSETH/MAI Voice ID: [id number] Report ID: [id number]
[2018-10-23] MEDS: SEVELAMER CARBONATE 800 MG TABLET PO SCH ×3 (08:00→17:00)
[2018-10-23 08:01] LABS: Absolute Lymphocytes (CBC) 1.3 K/uL (0.7-4.9); Absolute Monocytes 0.6 K/uL (0.1-1.3); Absolute Neutrophil 3.4 K/uL (1.8-8.0); Eosinophils % 4.2 % (0-4.4); Hematocrit 35.1 % (39.6-49.0); Lymphocytes % 23.9 % (15.3-44.8); MPV 9.5 fL (7.6-11.3); Monocytes % 10.1 % (3.3-12.3)
[2018-10-23 08:22] LABS: Potassium 4.7 mmol/L (3.5-5.1)
[2018-10-23] MEDS ORDERED: BUMETANIDE 1 MG/4 ML VIAL IV ONE (12:11)
--- NOTE | 2018-10-23 14:45 | P.CNS ---
Date of Consult: 10/23/18 Reason for Consult: ESRD to resume HD Chief Complaint: Displays hemodialysis catheter History of Present Illness: A 28 Y/o man with PMHx of ESRD on HD TTsat from [facility], via perm cath, have non mature AVF, HTN, DM, CHF with EF of 30% , and MARY pt cath dislodged , last dialysis was on Saturday failed HD placement in the hospital no nausea , vomiting, chest pain, SOb or palpitation Allergies No Known Allergies Allergy (Verified 11/26/17 19:31) Home Medications: Amlodipine Besylate 1 tab PO DAILY 10/21/18 Atorvastatin Calcium [Lipitor] 40 mg PO BEDTIME 10/21/18 Cinacalcet HCl [Sensipar*] 1 tab PO DAILY 10/21/18 Hydralazine [Apresoline*] 1 tab PO PRN 10/21/18 Insulin Glargine,Hum.rec.anlog [Lantus Solostar] 10 unit SQ DAILY 10/21/18 Losartan Potassium 1 tab PO DAILY 10/21/18 Metoprolol Succinate 50 mg PO DAILY 10/21/18 Mirtazapine [Remeron*] 1 tab PO DAILY 10/21/18 Sevelamer Carbonate [Renvela] 1 tab PO TIDWM 10/21/18 Sucroferric Oxyhydroxide [Velphoro] 1 tab PO DAILY 10/21/18 clonazePAM [Clonazepam] 1 tab PO DAILY 10/21/18 - Past Medical/Surgical History Diabetic: Yes -: CHF, systolic dysfunction-30% -: Malignant hypertension -: Diabetes mellitus type 2 -: Obstructive sleep apnea -: Chronic lymphedema -: Chronic renal disease -: Anemia of chronic disease -: cholecystectomy -: Left lower leg Debriedment -: HD catheter placement Psychosocial/ Personal History: The patient is single. He has a partner. He has 3 children. He does not work - Family History Father Medical History: Heart disease, Hypertension, Diabetes, Stroke, Kidney disease - Social History Smoking Status: Never smoker Alcohol use: No CD- Drugs: No Caffeine use: No Place of Residence: Home Physical Examination Temp Pulse Resp BP Pulse Ox 98.3 F 77 20 168/89 H 100 10/23/18 12:00 10/23/18 12:51 10/23/18 12:00 10/23/18 12:51 10/23/18 12:00 General: In no apparent distress, Oriented x3 HEENT: Atraumatic Neck: Supple, Without JVD or thyroid abnormality Respiratory: Clear to auscultation bilaterally, Normal air movement Cardiovascular: No edema, Regular rate/rhythm Gastrointestinal: Normal bowel sounds, Soft and benign - Problems (1) ESRD (end stage renal disease) on dialysis Onset Date: 10/22/18 Current Visit: Yes Status: Acute (2) hemodialysis catheter displacement Onset Date: 10/22/18 Current Visit: Yes Status: Acute Conclusions/Impression: A 28 Y/o man with PMHx of ESRD on HD TTsat from [facility], via perm cath, have non mature AVF, HTN, DM, CHF with EF of 30% , and MARY pt cath dislodged , last dialysis was on Saturday failed HD placement in the hospital no nausea , vomiting, chest pain, SOb or palpitation ESRD TTsat Will dialyse today after cath placement renal dose meds will start on [facility] D[facility] cath dislodgment Pt will be tarnsferred to [facility] for cath placement Anemia no need for JOHN Dm as per primary HTN resume home meds
[2018-10-23] MEDS ORDERED: NA CHLORIDE 0.9% 1,000 ML IV PRN (14:54)
[2018-10-23] MEDS ORDERED: ALBUMIN HUMAN 25% 50 ML IV SCH (15:00)
--- NOTE | 2018-10-23 16:28 | P.PN ---
Subjective Date of Service: 10/22/18 Chief Complaint: Displays hemodialysis catheter Patient seen and examined at bedside. No family at bedside. Chart reviewed and case discussed with nursing staff. Review of Systems 10-point ROS is otherwise unremarkable Physical Examination - Vital Signs Temperature: 98.3 F Blood Pressure: 168/89 Pulse: 77 Respirations: 20 Pulse Ox (%): 100 - Physical Exam General: Alert, In no apparent distress, Oriented x3 HEENT: Atraumatic, PERRLA, EOMI Neck: Supple, JVD not distended Respiratory: Clear to auscultation bilaterally, Normal air movement Cardiovascular: Regular rate/rhythm, Normal S1 S2 Gastrointestinal: Normal bowel sounds, No tenderness Musculoskeletal: No tenderness Integumentary: No rashes Neurological: Normal speech, Normal tone, Normal affect Lymphatics: No axilla or inguinal lymphadenopathy Assessment And Plan - Current Problems (Diagnosis) (1) hemodialysis catheter displacement Onset Date: 10/22/18 Current Visit: Yes Status: Acute (2) ESRD (end stage renal disease) on dialysis Onset Date: 10/22/18 Current Visit: Yes Status: Acute (3) Morbid obesity Onset Date: 10/22/18 Current Visit: No Status: Active - Plan This is a 28-year-old male with: Displaced hemodialysis catheter ESRD, on dialysis Saturday, , Saturday General surgery consulted, attempt at hemodialysis catheter placement, unsuccessful. Patient to be transferred to [facility]. I did do a doc to doc, patient was accepted as per the hospitalist there. Once patient is dialysis catheter replaced, he will receive dialysis. Likely discharge home after dialysis. DVT prophylaxis: Hold GI prophylaxis: None Diet: NPO for surgery. Renal diet after Disposition: Pending catheter replacement and dialysis. Likely discharge home after dialysis
--- NOTE | 2018-10-23 16:30 | P.PN ---
Subjective Date of Service: 10/23/18 Chief Complaint: Displays hemodialysis catheter Patient seen and examined at bedside. No family at bedside. Chart reviewed and case discussed with nursing staff. Review of Systems 10-point ROS is otherwise unremarkable Physical Examination - Vital Signs Temperature: 98.3 F Blood Pressure: 168/89 Pulse: 77 Respirations: 20 Pulse Ox (%): 100 Assessment And Plan - Current Problems (Diagnosis) (1) hemodialysis catheter displacement Onset Date: 10/22/18 Current Visit: Yes Status: Acute (2) ESRD (end stage renal disease) on dialysis Onset Date: 10/22/18 Current Visit: Yes Status: Acute (3) Morbid obesity Onset Date: 10/22/18 Current Visit: No Status: Active - Plan This is a 28-year-old male with: Displaced hemodialysis catheter ESRD, on dialysis Saturday, , Saturday General surgery consulted, attempt at hemodialysis catheter placement, unsuccessful. Patient was supposed to be transferred to [facility]. I did do a doc to doc, patient was accepted as per the hospitalist there. Unsure why the patient was denied overnight. New plan is for patient to be transferred to [facility] [place] to surgery for catheter placement. He will return here for dialysis. Likely discharge home after dialysis. DVT prophylaxis: Hold GI prophylaxis: None Diet: NPO for surgery. Renal diet after Disposition: Pending catheter replacement and dialysis. Likely discharge home after dialysis
[2018-10-24 04:40] VITALS: BP 178/83; TEMP 98
[2018-10-24 05:43] VITALS: BMI 32.7
[2018-10-24] MEDS: SEVELAMER CARBONATE 800 MG TABLET PO SCH (08:41)
[2018-10-24 10:06] VITALS: O2SAT 95
== END 2018-10-24 09:06 | disposition home or self-care (01) ==
LOC: ER 09:04 → ERHOLD 12:03 → 4TH 12:46
PROVIDERS: ADMIT Family Medicine; ATTEND Family Medicine
PROC: 05H533Z Insertion of Infusion Device into Right Subclavian Vein, Percutaneous Approach (ICD-10-PCS; principal; 2018-10-22 10:45)
DX: T82.42XA Displacement of vascular dialysis catheter, initial encounter (principal); I13.2 Hypertensive heart and chronic kidney disease with heart failure and with stage 5 chronic kidney disease, or end stage renal disease; E11.22 Type 2 diabetes mellitus with diabetic chronic kidney disease; N18.6 End stage renal disease; I50.22 Chronic systolic (congestive) heart failure; Z99.2 Dependence on renal dialysis; G47.33 Obstructive sleep apnea (adult) (pediatric); D63.1 Anemia in chronic kidney disease; E66.01 Morbid (severe) obesity due to excess calories; Z68.32 Body mass index [BMI] 32.0-32.9, adult; Z86.73 Personal history of transient ischemic attack (TIA), and cerebral infarction without residual deficits
CPT/HCPCS: 36415 ×2; 36558; 71045; 80048; 80053 ×2; 82962 ×11; 85025 ×2; 85610; 85730; 87086; 87088; 90935 ×2; 94760 ×5; 99285; G0378 ×2; J0690; J1644 ×3; J2250; J2704 ×2; J3010; 76000; 81003; 81015

== ENCOUNTER 2020-07-13 22:20 | Emergency (ER) | payer OTHER ==
--- OUTSIDE RECORDS SUMMARY | 2020-07-13 22:24 | XMS REPORT | Clinical Summary ---
:1990 Author Organization [facility] Address [address] [place] [address] Care Team Providers Name Role Phone Leonor Felton MD Primary Care Provider Allergies No Known Active Allergies Medications Medication Sig Dispensed Refills Start Date End Date Status atorvastatin Take 40 mg by 5 07/20/2019 Ac tive (LIPITOR) 40 MG mouth tablet nightly. midodrine Take 10 mg by 0 08/03/2019 Activ e (PROAMATINE) 10 MG mouth 3 tablet (three) times a day. On days of dialysis mirtazapine Take 30 mg by 1 07/20/2019 Act lizz (REMERON) 30 MG mouth tablet nightly. sevelamer Take 4 11 07/20/2019 Active (RENVELA) 800 mg tablets by tablet mouth 3 (three) times a day with meals. TAKE 2 TABS WITH EACH SNACK VELPHORO 500 mg Chew 1,500 mg 3 08/04/2019 Active tablet,chewable 3 (three) times a day with meals. insulin ASPART Inject 30-60 0 Ac tive (NovoLOG) 100 Units under unit/mL injection the skin nightly. SLIDING SCALE multivitamin Take 1 tablet 0 Act lizz (THERAGRAN) tablet by mouth daily. metoprolol Take 100 mg 0 Active tartrate by mouth 3 (LOPRESSOR) 100 mg (three) times tablet a day. apixaban (Eliquis) Take 5 mg by 0 Active 5 mg tablet mouth 2 (two) times a day. hydrALAZINE Take 25 mg by 0 Acti ve (APRESOLINE) 25 MG mouth as tablet needed. HYDROcodone-acetam Take 1 tablet 30 tablet 0 07/06/2020 Active inophen (NORCO) by mouth 0 5-325 mg per every 6 (six) tabletIndications: hours as acute pain needed for moderate pain for up to 30 doses .acute pain. Max Daily Amount: 4 tablets LANTUS U-100 Inject 15 1 07/20/2019 Discon tinued INSULIN 100 Units under 0 unit/mL injection the skin (vial) daily as needed. metoprolol Take 100 mg 5 07/20/2019 Discon tinued tartrate by mouth 2 0 (Stop Luis ing at (LOPRESSOR) 50 mg (two) times a Discharge) tablet day. aspirin 325 MG Take 325 mg 0 Dis continued tablet by mouth 0 (Stop Taki ng at daily. Discharge) HYDROcodone-acetam Take 1 tablet 30 tablet 0 08/24/2019 inophen (NORCO) by mouth 9 5-325 mg per every 6 (six) tabletIndications: hours as acute pain needed for moderate pain for up to 30 doses .Acute Pain. Max Daily Amount: 4 tablets HYDROcodone-acetam Take 1 tablet 0 10/13/2018 Discontinued (Med inophen (NORCO) by mouth. 0 List Cleanup) 5-325 mg per tablet HYDROCODONE Take by mouth 0 Disc ontinued BITARTRATE ORAL 2 (two) times 0 (Discontinued by a day. another clinician) metoprolol Take 1 tablet 90 tablet 0 03/25/2020 Expi red tartrate (100 mg 0 (LOPRESSOR) 100 mg total) by tablet mouth 3 (three) times a day for 30 days. apixaban (ELIQUIS) Take 2 24 tablet 0 03/25/2020 5 mg tablets (10 0 tabletIndications: mg total) by deep venous mouth 2 (two) thrombosis times a day for 6 days .blood clot in a deep vein of the extremities. apixaban (ELIQUIS) Take 1 tablet 60 tablet 2 04/01/2020 5 mg (5 mg total) 0 tabletIndications: by mouth 2 deep venous (two) times a thrombosis day for 90 days .blood clot in a deep vein of the extremities. vancomycin 1,250 Infuse 1,250 1 each 0 03/25/2020 mg in sodium mg into a 0 chloride 0.9% 250 venous mL IVPB catheter 3 (three) times a week for 15 days. HYDROcodone-acetam Take 1 tablet 30 tablet 0 05/02/2020 inophen (NORCO) by mouth 0 5-325 mg per every 6 (six) tabletIndications: hours as acute pain needed for moderate pain for up to 30 doses .acute pain. Max Daily Amount: 4 tablets Active Problems Problem Noted Date Cellulitis of left upper arm 03/23/2020 Problem with dialysis access 10/20/2019 ESRD (end stage renal disease) 10/20/2019 ESRD (end stage renal disease) on dialysis 10/19/2019 Encounters Date Type Specialty Care Team Description 07/06/2020 Anesthesia Event General Surgery Mike Og MD Sardina, Maydee, NP 07/06/2020 Surgery General Surgery Karli Campos RIGHT UP PER MD Azul EXTREMITY AV FISTULA CREATIO N 07/06/2020 Hospital Encounter General Surgery Karli Campos MD 07/04/2020 Pre-Admission Pre-Admission Karli Campos Preop montez ting Testing Testing MD Azul (Primary Dx) 07/04/2020 Travel 07/01/2020 Travel 06/22/2020 Office Visit Orthopedic Surgery Lambert Rosales i, MD (Primary Dx) 06/22/2020 Travel 05/25/2020 Office Visit Orthopedic Surgery Lambert Rosales i, MD (Primary Dx) 05/25/2020 Travel 05/19/2020 Travel 05/17/2020 Travel 05/03/2020 Office Visit Orthopedic Surgery Lambert Rosales i, MD (Primary Dx) 05/03/2020 Travel 05/02/2020 Anesthesia Event General Surgery Triso Heller MD Cheema, Ivelisse, FNP 05/02/2020 Surgery General Surgery Karli Campos LIGATION OF AV MD Azul FISTULA LEFT , TDC PLACEMENT RIGHT IJ VEIN 05/02/2020 Hospital Encounter General Surgery Karli Campos MD 04/29/2020 Travel 04/27/2020 Pre-Admit Testing Pre-Admission Karli Campos Preop testing Appointment Testing TIsauro, MD (Primary Dx) 04/27/2020 Travel 04/04/2020 Surgery General Surgery Jannette Landin, ARCH ANG PHYLICIA, LEFT UPPER EXTREMITY FISTULAGRAM AND LEFT UPPER EXTREMITY ANGIOGRAM 04/04/2020 Anesthesia Event General Surgery Geetha Hartley, Katty Wong, JUN 04/04/2020 Hospital Encounter General Surgery Jannette Landin, ES RD (end stage renal disease) ([facility]) (Primary Dx); End stage renal disease ([facility]) 04/01/2020 Hospital Encounter Radiology Jannette Landin, Preop testing 04/01/2020 Pre-Admit Testing Pre-Admission Jannette Landin, Preop testing Appointment Testing (Primary Dx) 04/01/2020 Transcribe Orders Access Jannette Landin, 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 (Primary Dx) 04/01/2020 Travel 03/23/2020 - Hospital Encounter General Internal Josep Sheehan, Cellulitis of left upper arm (Primary Dx); 03/25/2020 Medicine ESRD (end stage renal disease) ([facility]); Luci Felton, Arm DVT ( deep venous thromboembolism), chronic, left ([facility]) 03/23/2020 Office Visit Orthopedic Surgery Lambert Rosales i, MD (Primary Dx) 03/23/2020 Travel 03/21/2020 Travel 03/18/2020 Hospital Encounter Radiology Lambert Rosales i, MD 03/18/2020 Travel 03/14/2020 Travel 03/14/2020 Orders Only Orthopedic Surgery Zeina Yañez Finge r infection MA (Primary Dx) 03/11/2020 Office Visit Orthopedic Surgery Lambert Rosales i, MD (Primary Dx) 03/11/2020 Travel 03/03/2020 Travel 02/04/2020 Anesthesia Event General Surgery Isaiah Dyer MD Cheema, Ivelisse, JUN 02/04/2020 Surgery General Surgery Karli Campos LEFT UPP MARIO Liang MD EXTREMITY WASHO UT WITH WOUND VAC PLACEMENT. 02/04/2020 - Hospital Encounter General Internal Karli Campos 02/05/2020 MD Jose Francisco Chilel Salman Siraj, MD 02/03/2020 Travel 02/02/2020 Travel 01/27/2020 Hospital Encounter Radiology Manisha, Preop t rose Martinez MD 01/27/2020 Pre-Admit Testing Pre-Admission Karli Campos Preop testing Appointment Testing MD Azul (Primary Dx) 01/27/2020 Travel 10/19/2019 Anesthesia Event General Surgery Kelly Zuñiga MD Allen, Michelle Rene, PALOMO 10/19/2019 Surgery General Surgery Karli Campos LEFT UPP ER MD Azul EXTERMITY SECON D STAGE BVT 10/19/2019 - Hospital Encounter General Internal Karli Campos with 10/20/2019 Monserrat Liang MD dialysis access, Luci Felton, lazarus e anders MESSER (HCC) (Primary Dx) 10/16/2019 Pre-Admit Testing Pre-Admission Karli Campos Preop testing Appointment Testing MD Azul (Primary Dx) 08/24/2019 Surgery General Surgery Karli Campos INSERTIO N BERT Liang MD DIALYSIS CATHET ER - 08/24/2019 Anesthesia Event General Surgery Mike Og MD Sardina, Maydee, PALOMO 08/24/2019 Hospital Encounter General Surgery Karli Campos MD after 07/13/2019 Surgical History Surgery Date Site/Laterality Comments CHOLECYSTECTOMY LEG SURGERY Left I&D HAND SURGERY Left MASS REMOVAL ARTERIOVENOUS GRAFT 09/23/2018 - Left PLACEMENT 09/22/2019 INSERTION, CATHETER, CENTRAL 08/24/2019 Chest/N/A Pro cedure: INSERTION VENOUS, TUNNELED, WITH PORT, ZOHREH MARY DIALYSIS CATHETER WITH C-ARM FLUOROSCOPIC -; Surg bob: Andres, SUSIE Liang MD; L ocation: [facility] Main OR; S ervice: Vascular; Later ality: N/A; Medical devices from this surgery are in the Implants section . CREATION, AV FISTULA, USING 08/24/2019 Arm Upper/Left Proc edure: LEFT UPPER GRAFT EXTREMITY A-V FI STULA CREATION, VENOGR AM OF LEFT UPPER EXTRE MITY; Surgeon: Karli Doe MD; L ocation: [facility] Main OR; S ervice: Vascular; Later ality: Left; Medical devices from this surgery are in the Implants section . TRANSPOSITION, VEIN, 10/19/2019 Left Procedure: LEFT UPPER BASILIC, SECOND OF 2 STAGES EXTE RMITY SECOND STAGE BVT; Surgeon: Karli Campos MD; Location: [facility] Main OR; Service: Vascul ar; Laterality: Left ; REVISION, ARTERIOVENOUS 02/04/2020 Arm Upper/Left Procedur e: LEFT UPPER GRAFT, WITH ANGIOGRAPHY EXTREMIT Y WASHOUT WITH WOUND VAC PLACEM ENT.; Surgeon: Karli Doe MD; L ocation: [facility] Main OR; S ervice: Vascular; Later ality: Left; CARDIAC CATHETERIZATION 04/04/2020 Left Procedur e: ARCH ANGIOGRAM, LEFT UPPER EXTREMITY FISTUL AGRAM AND LEFT UPPER E XTREMITY ANGIOGRAM; Surg bob: Jannette Landin MD; Location: [facility] M ain OR; Service: Cardiot horacic; Laterality: Lef t; Medical devices from this surgery are in the Implants section . LIGATION OR BANDING, 05/02/2020 Arm Upper/Left Procedure: LIGATION OF FISTULA, AV AV FISTULA LEFT , TDC PLACEMENT RIGHT IJ VEIN; Surgeon: Karli Vazquez MD; L ocation: [facility] Main OR; S ervice: Vascular; Later ality: Left; Medical devices from this surgery are in the Implants section . REVISION, ARTERIOVENOUS 07/06/2020 Arm Upper/Right Procedur e: RIGHT UPPER GRAFT, WITH ANGIOGRAPHY EXTREMIT Y AV FISTULA CREATION; Surge on: Karli Campos MD; Location: [facility] Main OR; Service: Vascul ar; Laterality: Righ t; Medical History Medical History Date Comments Hypertension Type 2 diabetes mellitus (HCC) Left-sided weakness 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 [facility] Arrhythmia ' irregular heart be ats" Wears glasses Exercises rarely Walks, denies sob, c p. Diabetes (HCC) Kidney disease Deep vein thrombosis (HCC) Renal failure T//SAT- LA FISTULA ESRD (end stage renal disease) (HCC) Stroke (HCC) 2018 Seizures (HCC) 2018 History of transfusion 2018 Family History Medical History Relation Name Comments Hypertension Father Father Kidney disease Father Father Stroke Father Father No Known Problems Mother Diabetes Paternal Grandfather Grandma Relation Name Status Comments Father Father Mother Alive Paternal Grandfather Grandma Social History Tobacco Use Types Packs/Day Years Used Date Former Smoker Cigarettes 0.25 10 1997 - 2016 Smokeless Tobacco: Never Used Alcohol Use Drinks/Week oz/Week Comments Not Currently 0 Glasses of wine 0.0 0 Cans of beer 0 Shots of liquor 0 Standard drinks or equivalent Alcohol Habits Answer Date Recorded How often do you have a drink containing alcohol? Never 08/24/2019 How many drinks containing alcohol do you have on a typical Not asked day when you are drinking? How often do you have six or more drinks on one occasion? No t asked Sex Assigned at Date Recorded Not on file COVID-19 Exposure Response Date Recorded In the last month, have you been in contact with No / Unsure 07/04/2020 12:25 PM CDT someone who was confirmed or suspected to have Coronavirus / COVID-19? Last Filed Vital Signs Vital Sign Reading Time Taken Comments Blood Pressure 124/73 07/06/2020 5:24 PM CDT Pulse 98 07/06/2020 5:24 PM CDT Temperature 36.6 C (97.8 F) 07/06/2020 4:30 PM CDT Respiratory Rate 18 07/06/2020 5:24 PM CDT Oxygen Saturation 97% 07/06/2020 5:24 PM CDT Inhaled Oxygen Concentration - - Weight 153 kg (337 lb) 07/04/2020 12:54 PM CDT Height 193 cm (6' 4") 07/04/2020 12:54 PM CDT Body Mass Index 41.02 07/04/2020 12:54 PM CDT Plan of Treatment Health Maintenance Due Date Last Done Comments DIABETES: RETINAL EYE EXAM 1998 DIABETIC FOOT EXAM 1998 INFLUENZA VACCINE 04/23/2020 Implants Implanted Type 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 Border Department Device Shelf Model / Identifier Expiration Serial / Date Lot Catheter Hmodial Dura-Flow Prcrv Bsc Valved Pelbl [facility] 32cm - [id number] Central N/A: N/A ANGIODYNAMICS [id number] HOUSTO / Implanted: Qty: 1 on 08/24/2019 by Karli Campos MD at [facility] Ven[employer] INC / Catheters Catheter Hmodial Dura-Flow Prcrv Bsc Valved Pelbl Shth 28cm - [id number] Central N/A: N/A ANGIODYNAMICS [id number] / Implanted: 05/02/2020 at [facility] (Quantity not on file) [employer] / Catheters Device Vascular Closure Vascade 6/7fr - [id number] Surgical N/A: N/A [employer] 11/23/2021 [id number] / Implanted: 04/04/2020 at [facility] (Quantity not on file) Implants ; INC / Expanders; [id number] Extenders; Surgical Wires Procedures Procedure Name Priority Date/Time Associated Comments Diagnosis POC GLUCOSE Routine 07/06/2020 4:10 Results for this PM CDT procedure are i n the results section. ND AN ELECTIVE Routine 07/06/2020 2:20 Results f or this SUPRAGLOTTIC AIRWAY PM CDT procedur e are in the results section. POC PANEL Routine 07/06/2020 12:24 Results for this PM CDT procedure are i n the results section. ESTIMATED GFR STAT 07/06/2020 12:18 Results fo r this PM CDT procedure are i n the results section. PARTIAL THROMBOPLASTIN STAT 07/06/2020 12:18 R esults for this TIME (PTT) PM CDT procedure are i n the results section. PROTHROMBIN TIME WITH STAT 07/06/2020 12:18 Re sults for this INR PM CDT procedure are i n the results section. BASIC METABOLIC PANEL STAT 07/06/2020 12:18 Re sults for this PM CDT procedure are i n the results section. ECG PRE/POST OP Routine 07/04/2020 1:43 Preop testing Results for this PM CDT procedure are i n the results section. HEMOGLOBIN A1C Routine 07/04/2020 1:06 Preop testing Results for this PM CDT procedure are i n the results section. TYPE AND SCREEN Routine 07/04/2020 1:06 Preop testing Results for this PM CDT procedure are i n the results section. HC COMPLETE BLD COUNT Routine 07/04/2020 1:06 Preop testing R esults for this W/AUTO DIFF PM CDT procedure are i n the results section. COVID-19 QUALITATIVE Routine 07/04/2020 1:06 Preop testing Re sults for this PCR PM CDT procedure are i n the results section. XR CHEST 1 VW PORTABLE STAT 05/02/2020 6:18 R esults for this PM CDT procedure are i n the results section. POC GLUCOSE Routine 05/02/2020 5:31 Results for this PM CDT procedure are i n the results section. OR FL < 1 HOUR Routine 05/02/2020 5:00 Results f or this PM CDT procedure are i n the results section. ND AN ELECTIVE Routine 05/02/2020 4:08 Results f or this SUPRAGLOTTIC AIRWAY PM CDT procedur e are in the results section. POC PANEL Routine 05/02/2020 11:33 Results for this AM CDT procedure are i n the results section. ESTIMATED GFR STAT 05/02/2020 11:24 Results fo r this AM CDT procedure are i n the results section. PARTIAL THROMBOPLASTIN STAT 05/02/2020 11:24 R esults for this TIME (PTT) AM CDT procedure are i n the results section. PROTHROMBIN TIME WITH STAT 05/02/2020 11:24 Re sults for this INR AM CDT procedure are i n the results section. COMPREHENSIVE METABOLIC STAT 05/02/2020 11:24 Results for this PANEL AM CDT procedure are i n the results section. COVID-19 QUALITATIVE Routine 04/27/2020 2:30 Preop testing Re sults for this PCR PM CDT procedure are i n the results section. HEMOGLOBIN A1C Routine 04/27/2020 2:13 Preop testing Results for this PM CDT procedure are i n the results section. TYPE AND SCREEN Routine 04/27/2020 2:13 Preop testing Results for this PM CDT procedure are i n the results section. HC COMPLETE BLD COUNT Routine 04/27/2020 2:13 Preop testing R esults for this W/AUTO DIFF PM CDT procedure are i n the results section. POC GLUCOSE Routine 04/04/2020 1:42 Results for this PM CDT procedure are i n the results section. CV FISTULOGRAM Routine 04/04/2020 1:26 End stage renal PM CDT disease (HCC) OR FL < 1 HOUR Routine 04/04/2020 1:15 Results f or this PM CDT procedure are i n the results section. ND AN ELECTIVE Routine 04/04/2020 12:29 Results f or this SUPRAGLOTTIC AIRWAY PM CDT procedur e are in the results section. POC PANEL 4 Routine 04/04/2020 10:26 Results for this AM CDT procedure are i n the results section. ESTIMATED GFR STAT 04/04/2020 10:26 Results fo r this AM CDT procedure are i n the results section. BASIC METABOLIC PANEL STAT 04/04/2020 10:26 Re sults for this AM CDT procedure are i n the results section. XR CHEST 2 VW Routine 04/01/2020 3:22 Preop testing Results f or this PM CDT procedure are i n the results section. TYPE AND SCREEN Routine 04/01/2020 2:12 Preop testing Results for this PM CDT procedure are i n the results section. HC COMPLETE BLD COUNT Routine 04/01/2020 2:12 Preop testing R esults for this W/AUTO DIFF PM CDT procedure are i n the results section. COVID-19 QUALITATIVE Routine 04/01/2020 2:12 Preop testing Re sults for this PCR PM CDT procedure are i n the results section. ECG PRE/POST OP Routine 04/01/2020 1:42 Preop testing Results for this PM CDT procedure are i n the results section. POC GLUCOSE Routine 03/25/2020 5:07 Results for this PM CDT procedure are i n the results section. POC GLUCOSE Routine 03/25/2020 8:51 Results for this AM CDT procedure are i n the results section. CT UPPER EXTREMITY W Routine 03/24/2020 10:00 Res ults for this CONTRAST LEFT PM CDT procedure are in the results section. POC GLUCOSE Routine 03/24/2020 8:48 Results for this PM CDT procedure are i n the results section. XR CHEST 1 VW PORTABLE Routine 03/24/2020 7:06 R esults for this PM CDT procedure are i n the results section. POC GLUCOSE Routine 03/24/2020 5:11 Results for this PM CDT procedure are i n the results section. POC GLUCOSE Routine 03/24/2020 2:05 Results for this PM CDT procedure are i n the results section. ESTIMATED GFR Routine 03/24/2020 12:35 Results fo r this PM CDT procedure are i n the results section. BASIC METABOLIC PANEL Routine 03/24/2020 12:35 Re sults for this PM CDT procedure are i n the results section. PARTIAL THROMBOPLASTIN Routine 03/24/2020 12:35 R esults for this TIME (PTT) PM CDT procedure are i n the results section. PROTHROMBIN TIME WITH Routine 03/24/2020 12:35 Re sults for this INR PM CDT procedure are i n the results section. HC COMPLETE BLD COUNT Routine 03/24/2020 12:35 Re sults for this W/AUTO DIFF PM CDT procedure are i n the results section. HEPATITIS B SURFACE Routine 03/24/2020 10:00 Resu lts for this ANTIGEN AM CDT procedure are i n the results section. LACTIC ACID LEVEL, Timed 03/24/2020 12:10 Resul ts for this SEPSIS - NOW AND REPEAT AM CDT proc edure are in 2X EVERY 3 HOURS the results section. HEMODIALYSIS Routine 03/24/2020 12:07 AM CDT LACTIC ACID LEVEL, Timed 03/23/2020 9:00 Resul ts for this SEPSIS - NOW AND REPEAT PM CDT proc edure are in 2X EVERY 3 HOURS the results section. COVID-19 QUALITATIVE STAT 03/23/2020 8:30 Res ults for this PCR PM CDT procedure are i n the results section. ESTIMATED GFR STAT 03/23/2020 5:13 Results fo r this PM CDT procedure are i n the results section. LACTIC ACID LEVEL, STAT 03/23/2020 5:13 Resul ts for this SEPSIS - NOW AND REPEAT PM CDT proc edure are in 2X EVERY 3 HOURS the results section. HC COMPLETE BLD COUNT STAT 03/23/2020 5:13 Re sults for this W/AUTO DIFF PM CDT procedure are i n the results section. COMPREHENSIVE METABOLIC STAT 03/23/2020 5:13 Results for this PANEL PM CDT procedure are i n the results section. BLOOD CULTURE, AEROBIC Routine 03/23/2020 5:13 R esults for this & ANAEROBIC PM CDT procedure are i n the results section. BLOOD CULTURE, AEROBIC Routine 03/23/2020 5:13 R esults for this & ANAEROBIC PM CDT procedure are i n the results section. US DUPLEX VENOUS UPPER STAT 03/23/2020 5:00 R esults for this EXTREMITY LEFT PM CDT procedure are in the results section. MRI UPPER EXTREMITY WO STAT 03/18/2020 2:36 Finger infecti on Results for this CONTRAST LEFT PM CDT procedure are in the results section. POC GLUCOSE Routine 02/05/2020 4:08 Results for this PM CDT procedure are i n the results section. POC GLUCOSE Routine 02/05/2020 8:12 Results for this AM CDT procedure are i n the results section. POC GLUCOSE Routine 02/04/2020 9:13 Results for this PM CDT procedure are i n the results section. HEPATITIS B SURFACE AB, Routine 02/04/2020 6:15 Results for this QUANTITATIVE PM CDT procedure are i n the results section. HEPATITIS B SURFACE Routine 02/04/2020 6:15 Resu lts for this ANTIBODY PM CDT procedure are i n the results section. HEPATITIS B SURFACE Routine 02/04/2020 6:15 Resu lts for this ANTIGEN PM CDT procedure are i n the results section. POC GLUCOSE Routine 02/04/2020 4:55 Results for this PM CDT procedure are i n the results section. HEMODIALYSIS Routine 02/04/2020 3:35 PM CDT POC GLUCOSE Routine 02/04/2020 1:06 Results for this PM CDT procedure are i n the results section. ND AN ELECTIVE Routine 02/04/2020 12:05 Results f or this SUPRAGLOTTIC AIRWAY PM CDT procedur e are in the results section. ECG 12-LEAD STAT 02/04/2020 11:29 Results for this AM CDT procedure are i n the results section. POC GLUCOSE Routine 02/04/2020 10:56 Results for this AM CDT procedure are i n the results section. POC PANEL 4 Routine 02/04/2020 10:54 Results for this AM CDT procedure are i n the results section. ESTIMATED GFR STAT 02/04/2020 10:50 Results fo r this AM CDT procedure are i n the results section. BASIC METABOLIC PANEL STAT 02/04/2020 10:50 Re sults for this AM CDT procedure are i n the results section. XR CHEST 2 VW Routine 01/27/2020 2:32 Preop testing Results f or this PM CDT procedure are i n the results section. HEMOGLOBIN A1C Routine 01/27/2020 2:04 Preop testing Results for this PM CDT procedure are i n the results section. TYPE AND SCREEN Routine 01/27/2020 2:04 Preop testing Results for this PM CDT procedure are i n the results section. HC COMPLETE BLD COUNT Routine 01/27/2020 2:04 Preop testing R esults for this W/AUTO DIFF PM CDT procedure are i n the results section. PROTHROMBIN TIME WITH Routine 01/27/2020 2:04 Preop testing R esults for this INR PM CDT procedure are i n the results section. PARTIAL THROMBOPLASTIN Routine 01/27/2020 2:04 Preop testing Results for this TIME (PTT) PM CDT procedure are i n the results section. COVID-19 QUALITATIVE Routine 01/27/2020 2:00 Preop testing Re sults for this PCR PM CDT procedure are i n the results section. POC GLUCOSE Routine 10/20/2019 1:26 Results for this PM PAINTER SKI EDGE procedure are i n the results section. HEPATITIS B SURFACE AB, Routine 10/20/2019 9:15 Results for this QUANTITATIVE AM PA[employer] procedure are i n the results section. HEPATITIS B SURFACE Routine 10/20/2019 9:15 Resu lts for this ANTIBODY AM PA[employer] procedure are i n the results section. HEPATITIS B SURFACE Routine 10/20/2019 9:15 Resu lts for this ANTIGEN AM [employer] procedure are i n the results section. POC GLUCOSE Routine 10/20/2019 7:46 Results for this AM PA[employer] procedure are i n the results section. XR CHEST 1 VW PORTABLE Routine 10/20/2019 6:18 R esults for this AM [employer] procedure are i n the results section. HEMODIALYSIS Routine 10/19/2019 9:37 PM PAINTER [employer]I EDGE POC GLUCOSE Routine 10/19/2019 8:28 Results for this PM PA[employer] procedure are i n the results section. POC GLUCOSE Routine 10/19/2019 3:49 Results for this PM PA[employer] procedure are i n the results section. ND AN ELECTIVE Routine 10/19/2019 1:53 Results f or this SUPRAGLOTTIC AIRWAY PM [employer] procedur e are in the results section. POC PANEL 4 Routine 10/19/2019 10:00 Results for this AM [employer] procedure are i n the results section. ESTIMATED GFR STAT 10/19/2019 9:05 Results fo r this AM [employer] procedure are i n the results section. BASIC METABOLIC PANEL STAT 10/19/2019 9:05 Re sults for this AM PA[employer] procedure are i n the results section. ECG PRE/POST OP Routine 10/16/2019 1:48 Preop testing Results for this PM PAINTER [employer]GE procedure are i n the results section. HEMOGLOBIN A1C Routine 10/16/2019 1:15 Preop testing Results for this PM PAINTER [employer]I [employer]GE procedure are i n the results section. PROTHROMBIN TIME WITH Routine 10/16/2019 1:15 Preop testing R esults for this INR PM PAINTER [employer]I EDGE procedure are i n the results section. PARTIAL THROMBOPLASTIN Routine 10/16/2019 1:15 Preop testing Results for this TIME (PTT) PM [facility] procedure are i n the results section. TYPE AND SCREEN Routine 10/16/2019 1:15 Preop testing Results for this PM [facility] procedure are i n the results section. HC COMPLETE BLD COUNT Routine 10/16/2019 1:15 Preop testing R esults for this W/AUTO DIFF PM [facility] procedure are i n the results section. POC GLUCOSE Routine 08/24/2019 12:49 Results for this PM [facility] procedure are i n the results section. OR FL < 1 HOUR Routine 08/24/2019 12:23 Results f or this PM [facility] procedure are i n the results section. ND AN ELECTIVE Routine 08/24/2019 10:14 Results f or this SUPRAGLOTTIC AIRWAY AM [facility] procedur e are in the results section. XR CHEST 1 VW PORTABLE Routine 08/24/2019 9:41 R esults for this AM [facility] procedure are i n the results section. POC PANEL 4 Routine 08/24/2019 9:32 Results for this AM [facility] procedure are i n the results section. ECG 12-LEAD Routine 08/24/2019 9:25 Results for this AM [facility] procedure are i n the results section. after 07/13/2019 Results POC glucose (07/06/2020 4:10 PM CDT)Only the most recent of19 resultswithin the time period is included. Pathologist Sig nature POC glucose 98 65 - 99 mg/dL [facility] Comment: [facility] Parachute Folder Name: Kathleen Judd Device ID: [id number] Specimen Blood Performing Organization Address City/State/ZIP Code Phon e Number [facility] DEPARTMENT OF PATHOLOGY [address] [facility] [address] AND GENOMIC MEDICINE [facility] [address] [facility] [address] HOSPITAL Airway (07/06/2020 2:20 PM CDT) Narrative Performed At Marisol Toledo 07/06 2:55 PM Airway Date/Time: 07/06/2020 2:20 PM Performed by: Marisol Toledo so Authorized by: Mike Og MD Location: OR Urgency: Elective Difficult Airway: No Anesthesiologist: Mike Og MD Resident/WASH BOX OPERATOR/AA: Marisol Toledo Performed by: resident/WASH BOX OPERATOR/AA Preoxygenated with 100% O2: Yes C-spine Precautions Maintained Throughou t: Yes Mask Ventilation: Not attempted Final Airway Type: Supraglottic airway Final LMA: I-Gel LMA Size: 5 Number of Attempts at Approach: 1 Preoxygenation times five minutes on 100% FiO2. [place] h IV induction. Eyes taped after loss of eyelash reflex. Size 5 iGEL placed atraumatically. Positive chest rise and positive EtCO2 with adequate s eal. No leak noted at 20 cmH2O. Ventilation adequate. No da mage to oropharynx. VSS. POC panel (07/06/2020 12:24 PM CDT)Only the most recent of2 resultswithin the time period is included. [facility] POC sodium 135 135 - 148 [facility] mmol/L [facility] POC potassium 4.6 3.5 - 5.0 [facility] mmol/L [facility] POC glucose 104 (H) 65 - 99 mg/dL [facility] Comment: [place] Parachute Folder Name: [facility] Device ID: [id number] POC hemoglobin 14.6 14.0 - 18.0 [facility] g/dL [facility] POC hematocrit 43 41 - 51 % [facility] Specimen Blood Performing Organization Address City/State/ZIP Code Phon e Number [facility] DEPARTMENT OF PATHOLOGY [address] [facility] [place] [address] AND GENOMIC MEDICINE [facility] [address] [facility] [place] [address] HOSPITAL Estimated GFR (07/06/2020 12:18 PM CDT)Only the most recent of7 resultswithin the time period is included. [facility] Estimated GFR 7 (A) mL/min/1.73 [facility] Comment: m2 [place] Catergory Units Interpretation HOS PITAL G1 >=90 Normal or high G2 60-89 Mildly decreased G3a 45-59 Mildly to moderately decreas ed G3b 30-44 Moderately to severely decre ased G4 15-29 Severely decreased G5 <15 Kidney failure The eGFR was calculated using the Chronic Kidney Disea se Epidemiology Collaboration (CKD-EPI) equation. Interpretation is based on recommendations of the National Kidney Foundation-Kidney Disease Outcomes Joel lity Initiative (NKF-KDOQI) published in 2014. Specimen Performing Organization Address City/[facility] Phon e Number [facility] DEPARTMENT OF PATHOLOGY [address] [place] [address] Partial thromboplastin time, activated (07/06/2020 12:18 PM CDT)Only the most recent of5 resultswithin the time period is included. PTT 71.3 (H) 23.0 - 36.0 [facility] Comment: [facility] PTT therapeutic range for unfractionated heparin is HOSPITAL 61.0-112.0 seconds which corresponds to Anti-Xa 0.3-0.7 U/ml. Specimen Blood Performing Organization Address City/[facility] Phon e Number [facility] DEPARTMENT OF PATHOLOGY [address] [place] [address] Prothrombin time with INR (07/06/2020 12:18 PM CDT)Only the most recent of5 resultswithin the time period is included. [facility] Prothrombin time 14.7 (H) 11.5 - 14.5 [facility] INR 1.2 [place] Comment: ORIENTAL ORTHODOX [facility] International Normalized Ratio (INR) is a therapeu [facility] monitoring tool for patients who are stable on oral anticoagulant therapy. An INR of 2.0-3.0 is suggested for deep vein thrombosis/pulmonary embolism. Specimen Blood Performing Organization Address City/[facility] Phon e Number [facility] DEPARTMENT OF PATHOLOGY [address] [place] [address] Basic metabolic panel (07/06/2020 12:18 PM CDT)Only the most recent of5 results within the time period is included. Pathologist Sig nature Sodium 131 (L) 135 - 148 mEq/L [facility] Potassium 4.7 3.5 - 5.0 mEq/L [facility] Chloride 97 (L) 98 - 112 mEq/L [facility] CO2 24 24 - 31 mEq/L [facility] Anion gap 10@ANIO 7 - 15 mEq/L [facility] BUN 30 (H) 6 - 20 mg/dL [facility] Creatinine 10.23 (H) 0.70 - 1.20 mg/dL [facility] Glucose 109 (H) 65 - 99 mg/dL [facility] Calcium 11.1 (H) 8.3 - 10.2 mg/dL [facility] Specimen Blood Performing Organization Address City/[facility] Phon e Number [facility] DEPARTMENT OF PATHOLOGY [address] [facility] [address] AND GENOMIC MEDICINE [facility] [address] [facility] [place] [address] HOSPITAL ECG Pre/Post Op (07/04/2020 1:43 PM CDT)Only the most recent of3 resultswithin the time period is included. Pathologist Sig nature Ventricular rate 104 [facility] Atrial rate 104 [facility] ND interval 180 [facility] QRSD interval 84 [facility] QT interval 356 [facility] QTC interval 468 [facility] P axis 1 65 [facility] QRS axis 1 98 [facility] T wave axis 37 [facility] EKG impression Sinus tachycardia-Possible L eft atrial enlargement-Anterolateral infarct (cited on or before 24-AUG-2019)-Abnormal ECG-In automated comparison with ECG of 01-APR-2020 13:42,-Questionable change in initi [facility] MUSE al forces of Lateral leads- Specimen Narrative Performed At This result has an attachment that is no t available. Performing Organization Address City/[facility] Code Phon e Number [facility] MUSE [address] [place] [address] COVID-19 qualitative PCR (07/04/2020 1:06 PM CDT)Only the most recent of5 resultswithin the time period is included. Interpretation Negative results do not prec lude 2019-nCoV infection and should not be used as the sole basis for treatment or other patient management decisions. Negative results must be combined with clinical observations, patient history, and epidemiological [facility] information. [facility] COVID-19 qualitative Not-Detected Not-Detecte [place] PCR result d [facility] COVID-19 qualitative See link below for [place] PCR PDF Lab [facility] ReportComment: Case HOSPITAL Number: [id number] Specimen Nasopharyngeal swab Performing Organization Address City/[facility]/ZIP Code Phon e Number [facility] DEPARTMENT OF PATHOLOGY AND [address] [place], [place] [address] [facility] [address] [place] [address] [facility] CBC with platelet and differential (07/04/2020 1:06 PM CDT)Only the most recent of7 resultswithin the time period is included. WBC 10.2 4.5 - 11.0 k/uL [facility] RBC 4.29 (L) 4.40 - 6.00 [facility] m/uL [facility] HGB 12.1 (L) 14.0 - 18.0 [facility] 40.0 (L) 41.0 - 51.0 % [facility] MCV 93.2 82.0 - 100.0 fL [facility] MCH 28.2 27.0 - 34.0 pg [facility] MCHC 30.3 (L) 31.0 - 37.0 [facility] g/[facility] RDW - SD 56.7 (H) 37.0 - 55.0 fL [facility] MPV 11.3 (H) 6.9 - 11.0 fL [facility] Platelet count 259 150 - 400 K/uL [facility] Nucleated RBC 0.00 /100 WBC [facility] Neutrophils 75.1 (H) 39.0 - 69.0 % [facility] Lymphocytes 15.1 (L) 25.0 - 45.0 % [facility] Monocytes 7.0 0.0 - 10.0 % [facility] Eosinophils 2.3 0.0 - 5.0 % [facility] Basophils 0.3 0.0 - 1.0 % [facility] Immature granulocytes 0.2 0.0 - 1.0 % [facility] Specimen Blood Performing Organization Address City/[facility]/ZIP Code Phon e Number [facility] DEPARTMENT OF PATHOLOGY [address] [facility]. [place] [address] AND GENOMIC MEDICINE [facility] [id number] [place] [address] HOSPITAL Type and screen (07/04/2020 1:06 PM CDT)Only the most recent of5 resultswithin the time period is included. Pathologist Sig nature ABO grouping O [facility] Rh type POS [facility] Antibody screen (gel) NEG [facility] Specimen Blood Performing Organization Address City/[facility] Phon e Number [facility] DEPARTMENT OF PATHOLOGY [id number] [place] [phone] AND [facility] [id number] [place] [id number] [place] [address] Hemoglobin A1c (07/04/2020 1:06 PM CDT)Only the most recent of4 resultswithin the time period is included. Hemoglobin A1C 6.7 (H) 4.0 - 5.6 % [facility] Comment: [place] HbA1c cutoffs for diagnosing diabetes: HO SPITAL 4.0% - 5.6% = normal 5.7% - 6.4% = increased risk for diabetes (prediabetes )9 >=6.5% = diabetes9 Goals for glycemic control (ADA 2016) < 7.0% Target for non adults with diabetes. More or less stringent targets may be appropriate for individual patients. <7.5% Target for Children and adolescents with type 1 diabetes. Specimen Blood Performing Organization Address City/[facility] Phon e Number [facility] DEPARTMENT OF PATHOLOGY [id number] [place] [address] [address] [facility] [address] [place] [address] [facility] XR Chest 1 Vw Portable (05/02/2020 6:18 PM CDT)Only the most recent of4 results within the time period is included. Specimen Narrative Performed At EXAMINATION: XR CHEST 1 VW PORTABLE [facility] CLINICAL HISTORY: 29 years Male post o p TDC insertion COMPARISON: April 01 IMPRESSION: Cardiomediastinal silhouette is unchange d. Pulmonary vascular congestion has increa sed from prior Age related changes in the osseous struc tures. Right IJ central venous catheter is in satisfactory po sition. No pneumothorax. . Procedure Note Interface, Radiology Results Incoming - 05/02/2020 6:23 PM CDT EXAMINATION: XR CHEST 1 VW PORTABLE CLINICAL HISTORY: 29 years Male post op TDC insertion COMPARISON: April 01 IMPRESSION: Cardiomediastinal silhouette is unchange d. Pulmonary vascular congestion has increa sed from prior Age related changes in the osseous struc tures. Right IJ central venous catheter is in s atisfactory position. No pneumothorax. . Performing Organization Address City/[facility]/ZIP Code Phon e Number [facility] [address] [place] [address] [place] < 1 Hour (05/02/2020 5:00 PM CDT)Only the most recent of3 results within the time period is included. Specimen Narrative Performed At EXAMINATION: OR FL < 1 HOUR HM [facility] C-arm fluoroscopy was requested in OR. IMPRESSION: Intraoperative fluoroscopic images. Radiologist was no t present during the examination. Separate operative report will be issued by the physic alesha performing the procedure. [id number] Procedure Note Hm Interface, Radiology Results Incoming - 05/09/2020 10:38 AM CDT EXAMINATION: OR FL < 1 HOUR C-arm fluoroscopy was requested in OR. IMPRESSION: Intraoperative fluoroscopic images. Radi ologist was not present during the examination. Separate operative report will be issued by the physician performing the procedure. [id number] Performing Organization Address [facility] Code Phon e Number [facility] [address] [place] [address] Airway (05/02/2020 4:08 PM CDT) Narrative Performed At Cahntal Gates CRNA 05/02/2020 4 :09 PM Airway Date/Time: 05/02/2020 3:56 PM Performed by: Chantal Gates CRNA Authorized by: Tirso Heller MD Location: OR Urgency: Elective Difficult Airway: No Anesthesiologist: Tirso Heller MD Resident/WASH BOX OPERATOR/AA: Chantal Gates CRNA Performed by: resident/WASH BOX OPERATOR/AA Preoxygenated with 100% O2: Yes C-spine Precautions Maintained Throughou t: Yes Mask Ventilation: Easy mask (2 hands) Final Airway Type: Supraglottic airway Final LMA: I-Gel LMA Size: 5 Number of Attempts at Approach: 1 Comprehensive metabolic panel (05/02/2020 11:24 AM CDT)Only the most recent of2 resultswithin the time period is included. Sodium 133 (L) 135 - 148 mEq/L [facility] Potassium 4.1 3.5 - 5.0 mEq/L [facility] Chloride 101 98 - 112 mEq/L [facility] CO2 23 (L) 24 - 31 mEq/L [facility] Anion gap 9@ANIO 7 - 15 mEq/L [facility] BUN 51 (H) 6 - 20 mg/dL [facility] Creatinine 11.41 (H) 0.70 - 1.20 [facility] mg/dL [facility] Glucose 100 (H) 65 - 99 mg/dL [facility] Calcium 9.2 8.3 - 10.2 [facility] mg/dL [facility] Protein 7.0 6.3 - 8.3 g/dL [facility] Albumin 3.3 (L) 3.5 - 5.0 g/dL [facility] A/G ratio 0.9 0.7 - 3.8 [facility] Alkaline phosphatase 208 (H) 40 - 129 U/L [facility] AST 22 10 - 50 U/L [facility] ALT 16 5 - 50 U/L [facility] Total bilirubin 0.4 0.2 - 1.2 mg/dL [facility] Specimen Blood Performing Organization Address City/State/ZIP Code Phon e Number [facility] DEPARTMENT OF PATHOLOGY [address] [facility] [place] [address] AND [facility]OMIC [facility] [address] [facility] [place] [address] [facility] Airway (04/04/2020 12:29 PM CDT) Narrative Performed At Lauren Fung CRNA 04/04/2020 12:30 PM Airway Date/Time: 04/04/2020 12:21 PM Performed by: Lauren Fung CRNA Authorized by: Geetha Hartley M D Location: OR Urgency: Elective Anesthesiologist: Geetha Hartley MD Resident/WASH BOX OPERATOR/AA: Lauren Fung C RNA Performed by: anesthesiologist Preoxygenated with 100% O2: Yes C-spine Precautions Maintained Throughou t: Yes Mask Ventilation: Easy mask Final Airway Type: Supraglottic airway Final LMA: I-Gel LMA Size: 5 Number of Attempts at Approach: 1 POC panel 4 (04/04/2020 10:26 AM CDT)Only the most recent of4 resultswithin the time period is included. POC sodium 129 (L) 135 - 148 [facility] mmol/L [facility] POC potassium 5.2 (H) 3.5 - 5.0 [facility] mmol/L [facility] POC hematocrit 57 (H) 41 - 51 % [facility] POC glucose 119 (H) 65 - 99 mg/dL [facility] Comment: [place] Parachute Folder Name: [facility] Device ID: [id number] POC hemoglobin 19.4 (H) 14.0 - 18.0 [facility] g/dL [facility] Specimen Blood Performing Organization Address [facility] Code Phon e Number [facility] DEPARTMENT OF PATHOLOGY [address] [facility] [address] AND GENOMIC MEDICINE [facility] [address] [facility] [address] HOSPITAL XR Chest 2 Vw (04/01/2020 3:22 PM CDT)Only the most recent of2 resultswithin the time period is included. Specimen Narrative Performed At EXAMINATION: XR CHEST 2 VW [facility] CLINICAL HISTORY: Z01.818 Encounter for other prepro cedural examination, PRE OP TESTING IMPRESSION: Heart is slightly enlarged. Lungs are clear. There are no effusions. Regional skeleton is intact. [id number] Procedure Note Interface, Radiology Results Incoming - 04/01/2020 3:30 PM CDT EXAMINATION: XR CHEST 2 VW CLINICAL HISTORY: Z01.818 Encounter for other preprocedural examination, PRE OP TESTING IMPRESSION: Heart is slightly enlarged. Lungs are cl ear. There are no effusions. Regional skeleton is intact. [id number] Performing Organization Address City/[facility]/ZIP Code Phon e Number [facility] [address] [facility] [place] [address] CT Upper Extremity W Contrast Left (03/24/2020 10:00 PM CDT) Specimen Narrative Performed At EXAMINATION: CT UPPER EXTREMITY W CONTRA ST LEFT [facility] CLINICAL HISTORY: Abscess of bursa TECHNIQUE: Muti-detector computed axial tomography (CA T) of the left arm was performed with IV iodinated contrast. Coronal and sagittal reformations were created at the worksta tion for further review. DOSE REDUCTION: CT imaging was performed with iterativ e reconstruction technique and/or automated exposure cont rol to reduce radiation dose. COMPARISON: None IMPRESSION: 1.No soft tissue abscess. FINDINGS: There is no rim-enhancing fluid collection to indicate abscess or bursitis. Nonspecific skin thickening, subcutaneous fat strandin g and edema, and deep fascial edema observed in much of the left arm is most concerning for cellulitis. No soft tissue gas. Deep soft tissues are unremarkable. High origin of the radial artery. Radial artery to cep halic vein and brachial artery to basilic vein AV fistulas are patent without narrowing. Arterial calcifications are present. Dis continued AV graft. Bones and joints are unremarkable. Enlarged left axillary lymph nodes are likely benign a nd reactive/inflammatory. Right thyroid nodule can be evaluated with thyroid ult rasound on an outpatient basis. [facility]-[id number] Procedure Note Interface, Radiology Results - 03/24/2020 10:25 PM CDT EXAMINATION: CT UPPER EXTREMITY W CONTRAST LEFT CLINICAL HISTORY: Abscess of bursa TECHNIQUE: Muti-detector computed axial tomography (CAT) of the left arm was performed with IV iodinated contrast. Coronal and sagittal reformations were created at the workstation for further review. DOSE REDUCTION: CT imaging was performed with iterative reconstruction technique and/or automated exposure control to reduce radiation dose. COMPARISON: None IMPRESSION: 1.No soft tissue abscess. FINDINGS: There is no rim-enhancing fluid collecti on to indicate abscess or bursitis. Nonspecific skin thickening, subcutaneou s fat stranding and edema, and deep fascial edema observed in much of the left arm is most concerning for cellulitis. No soft tissue gas. Deep soft tissues are unremarkable. High origin of the radial artery. Radial artery to cephalic vein and brachial artery to basilic vein AV fistulas are patent without narrowing. Arterial calcifications are present. Dis continued AV graft. Bones and joints are unremarkable. Enlarged left axillary lymph nodes are l ikely benign and reactive/inflammatory. Right thyroid nodule can be evaluated wi thyroid ultrasound on an outpatient basis. [facility]-[id number] Performing Organization Address City/State/ZIP Code Phon e Number [facility] [address] [place] [address] Hepatitis B surface antigen (03/24/2020 10:00 AM CDT)Only the most recent of3 resultswithin the time period is included. Pathologist Sig nature Hepatitis B surface Non-reactive Non-reactive [facility] Specimen Blood Performing Organization Address [facility] Phon e Number [facility] DEPARTMENT OF PATHOLOGY [id number] [place] [address] [address] Lactic acid level, SEPSIS - Now and repeat 2x every 3 hours (03/24/2020 12:10 AM CDT)Only the most recent of3 resultswithin the time period is included. Pathologist Sig nature Lactic acid 0.8 0.5 - 2.2 mmol/L [facility] Specimen Blood Performing Organization Address [facility] Phon e Number [facility] DEPARTMENT OF PATHOLOGY [id number] [place] [id number] [place] [address] Blood culture, aerobic & anaerobic (03/23/2020 5:13 PM CDT)Only the most recent of2 resultswithin the time period is included. Blood culture No growth after 5 days of incubation. CRISPIN VELOZ isolate Comment: HOSPITAL Specimen Information Specimen Source: Blood Specimen Site: Arm, right Specimen Blood - Arm, right Performing Organization Address [facility] Phon e Number [facility] DEPARTMENT OF PATHOLOGY AND [address] [place], [place] [address] [facility] [address] [place] [address] Us duplex venous upper extremity (03/23/2020 5:00 PM CDT) Specimen Narrative Performed At EXAMINATION: US DUPLEX VENOUS UPPER EX TREMITY LEFT [facility] CLINICAL HISTORY: LUE swelling COMPARISON: None. TECHNIQUE: Grayscale, color Doppler, and spectral wa veform analysis of the left upper extremity deep venous sys tem was performed. FINDINGS: The left internal jugular vein demonstrates noncompres sibility and contains internal echogenicity. The left subclavian, a xillary, brachial, basilic, cephalic, and forearm veins reveal no evidenc e of thrombosis. The veins demonstrate normal Doppler helen w and normal compressibility. The contralateral right subclavian vein is patent on color Doppler. IMPRESSION: Deep venous thrombus is seen within the left internal jugular vein. Findings were discussed with and acknowledged by ACE NGUYEN at 03/23/2020 5:05 PM. [facility]-[id number] Procedure Note Hm Interface, Radiology Results Incoming - 03/23/2020 5:09 PM CDT EXAMINATION: US DUPLEX VENOUS UPPER EXTREMITY LEFT CLINICAL HISTORY: LUE swelling COMPARISON: None. TECHNIQUE: Grayscale, color Doppler, an d spectral waveform analysis of the left upper extremity deep venous system was performed. FINDINGS: The left internal jugular vein demonstra montez noncompressibility and contains internal echogenicity. The left subclavian, axillary, brachial, basilic, cephalic, and forearm veins reveal no evidence of thrombosis. The veins demonstrate normal Doppler flow and normal compressibility. The contralateral right subclavian vein is patent on color Doppler. IMPRESSION: Deep venous thrombus is seen within the left internal jugular vein. Findings were discussed with and acknowl edged by HÉCTOR NGUYEN at 03/23/2020 5:05 PM. [facility]-[id number] Performing Organization Address City/State/ZIP Code Phon e Number [facility] [address] [place] [address] MRI Upper Extremity Wo Contrast Left (03/18/2020 2:36 PM CDT) Specimen Narrative Performed At This result has an attachment that is no t available. EXAMINATION: MRI UPPER EXTREMITY WO CONTRAST LEFT [facility] INDICATION: Middle finger infection. COMPARISON: None available TECHNIQUE: Multiplanar multisequence MRI of the middle finger was acquired without intravenous contrast. Moderate motion degradation. FINDINGS: 1.No evidence of osteomyelitis. No evide nce of septic arthritis of the middle finger. 2.Mild subcutaneous edema of the dorsum of the middle finger at the level of the proximal and middle phalanges which may be secondary to cellulitis. No evidence of disruption of the extensor mechanism. 3.The flexor tendons of the middle finge r appear intact. There is no evidence of flexor tenosynovitis. 4.The collateral ligaments and capsule o f the PIP and DIP joints are intact. The MCP joint appears unremarkable. IMPRESSION: Moderately motion degraded examination. 1.No evidence of osteomyelitis. 2.Nonspecific subcutaneous edema of the dorsum of the middle finger which may be secondary to cellulitis. 3.No evidence of tenosynovitis or disrup tion of the flexor or extensor tendon mechanism. 4.Additional findings and details as above. Procedure Note Interface, Radiology Results Incoming - 03/18/2020 2:46 PM CDT EXAMINATION: MRI UPPER EXTREMITY WO CONTRAST LEFT INDICATION: Middle finger infection. COMPARISON: None available TECHNIQUE: Multiplanar multisequence MRI of the middle finger was acquired without intravenous contrast. Moderate motion degradation. FINDINGS: 1.No evidence of osteomyelitis. No evide nce of septic arthritis of the middle finger. 2.Mild subcutaneous edema of the dorsum of the middle finger at the level of the proximal and middle phalanges which may be secondary to cellulitis. No evidence of disruption of the extensor mechanism. 3.The flexor tendons of the middle finge r appear intact. There is no evidence of flexor tenosynovitis. 4.The collateral ligaments and capsule o f the PIP and DIP joints are intact. The MCP joint appears unremarkable. IMPRESSION: Moderately motion degraded examination. 1.No evidence of osteomyelitis. 2.Nonspecific subcutaneous edema of the dorsum of the middle finger which may be secondary to cellulitis. 3.No evidence of tenosynovitis or disrup tion of the flexor or extensor tendon mechanism. 4.Additional findings and details as abo ve. Performing Organization Address City/State/ZIP Code Phon e Number [facility] [address] [place] [address] Hepatitis B surface Ab, quantitative (02/04/2020 6:15 PM CDT)Only the most recent of2 resultswithin the time period is included. Hepatitis B surface 342.74 IU/L [facility] Comment: The anti-HBs is greater than or equal to 10 IU/L. This patient has either had an antibody response to HBV vaccination, re ceived a transfusion, or has recovered from HBV infection. This patient should be considered immune to hepatitis B. An anti-HBs result greater than or equal to 10 IU/L im plies immunity. For post-vaccination antibody testing guidel raymond for the general public refer to MMWR September 14, 2005/Vol. 54 (No. 16);-, and for healthcare workers refer to MMWR Aug/Vol. 62(No. 10);-. Reference Interval: anti-HBs 9.99 IU/L or less ....... Negative 10.00 IU/L or greater .... Positive Results greater than 1,000.00 IU/L are reported as gre ater than 1,000.00 IU/L. This assay should not be used for blood donor screenin g, associated re-entry protocols, or for screening Human Cell, Tissues and Cellular and Tissue-Based Products (HCT/P) . Performed by [employer], [address] [place] [id number] [email or web address], Brent Greco MD, Lab. Director Specimen Serum Performing Organization Address [facility] Phon e Number [facility] [address] [place] [address] [facility] [address] [place] [phone] Hepatitis B surface antibody (02/04/2020 6:15 PM CDT)Only the most recent of2 resultswithin the time period is included. Pathologist Sig nature Hepatitis B surface Reactive (A) Non-reactive [facility] Specimen Blood Performing Organization Address [facility] Phon e Number [facility] DEPARTMENT OF PATHOLOGY AND [address] [place] [phone] GENOMIC MEDICINE [address] [address] Airway (02/04/2020 12:05 PM CDT) Narrative Performed At Nori Wiseman CRNA 02/04/2020 12:05 PM Airway Date/Time: 02/04/2020 12:05 PM Performed by: Nori Wiseman CRNA Authorized by: Isaiah Dyer MD Location: OR Urgency: Elective Difficult Airway: No Anesthesiologist: Blayne Dyer MD Resident/LINO/AA: Nori Wiseman CRNA Performed by: resident/LINO/AA Preoxygenated with 100% O2: Yes C-spine Precautions Maintained Throughou t: Yes Mask Ventilation: Not attempted Final Airway Type: Supraglottic airway Final LMA: I-Gel LMA Size: 5 Number of Attempts at Approach: 1 ECG 12 lead (02/04/2020 11:29 AM CDT)Only the most recent of2 resultswithin the time period is included. Pathologist Sig nature Ventricular rate 79 [facility] Atrial rate 79 [facility] ND interval 228 [facility] QRSD interval 84 [facility] QT interval 400 [facility] QTC interval 458 [facility] P axis 1 55 [facility] QRS axis 1 114 [facility] T wave axis 58 [facility] EKG impression Sinus rhythm with 1st degree AV block-Left posterior fascicular block-Cannot rule out Anterior infarct (cited on or before 24-AUG-2019)-Abnormal ECG-In automated comparison with ECG of 16-OCT-2019 13:48 [facility] ,-No significant change was found- Specimen Narrative Performed At This result has an attachment that is no t available. Performing Organization Address City/State/ZIP Code Phon e Number [facility] MUSE [address] [place] [address] Airway (10/19/2019 1:53 PM [employer]) Narrative Performed At Kelly Zuñiga MD 10/19/2019 1:54 PM Airway Performed by: Kelly Zuñiga MD Authorized by: Kelly Zuñiga MD Location: OR Urgency: Elective Difficult Airway: No Anesthesiologist: Kelly Zuñiga MD Resident/WASH BOX OPERATOR/AA: Lauren Fung C RNA Performed by: /WASH BOX OPERATOR/AA Preoxygenated with 100% O2: Yes C-spine Precautions Maintained Throughou t: Yes Mask Ventilation: Not attempted Final Airway Type: Supraglottic airway Final LMA: I-Gel LMA Size: 5 Number of Attempts at Approach: 1 Airway (08/24/2019 10:14 AM [employer]) Narrative Performed At Virgen Back CRNA 2018 10:33 AM Airway Date/Time: 08/24/2019 10:14 AM Performed by: Virgen Back CR NA Authorized by: Mike Og MD Location: OR Urgency: Elective Difficult Airway: No Anesthesiologist: Mike Og MD Resident/WASH BOX OPERATOR/AA: Virgen Back CRNA Performed by: /LINO/AA Preoxygenated with 100% O2: Yes C-spine Precautions Maintained Throughou t: Yes Mask Ventilation: Easy mask Final Airway Type: Supraglottic airway Final LMA: I-Gel LMA Size: 5 Number of Attempts at Approach: 1 Atraumatic LMA insertion. Lips/teeth/gums unchanged. 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
--- OUTSIDE RECORDS SUMMARY | 2020-07-13 22:24 | XMS REPORT | Clinical Summary ---
:1990 Author Organization [facility] Address [address] [place] [address] Care Team Providers Name Role Phone Sharpkimo Primary Care Provider Allergies No Known Allergies Medications Medication Sig Dispensed Refills Start End Status Date Date atorvastatin Take 40 mg by 0 Act lizz (LIPITOR) 80 MG mouth daily . tablet LORazepam (ATIVAN) Take 1 mg by mouth 0 Active 1 MG tablet every 6 (six) hours as needed for Anxiety. multivitamin per Take 1 tablet by 0 Active tablet mouth daily. sevelamer Take 800 mg by 0 Activ e (RENVELA) 800 mg mouth 3 (three) tabletIndications: times daily . 800 mg tablets-5 tablets taken at each dose per spouse report hydrALAZINE Take 25 mg by 0 Acti ve (APRESOLINE) 25 MG mouth as needed 8 tablet For SBP> 165. metoprolol Take 100 mg by 0 Acti ve (TOPROL-XL) 100 MG mouth 3 (three) 8 24 hr tablet times daily . metoprolol Take 25 mg by 0 Activ e (TOPROL-XL) 25 MG mouth as needed 8 24 hr tablet For hypertension post dialysis. mirtazapine Take 1 tablet by 0 A ctive (REMERON MARCO A-TAB) mouth nightly. 9 30 MG disintegrating tablet VELPHORO 500 mg Take 1 tablet by 0 Active Chew mouth 3 (three) 9 times daily WITH MEALS. insulin aspart Inject 30-60 Units 0 Active U-100 (NOVOLOG) subcutaneously 100 unit/mL nightly. injection midodrine Take 10 mg by 0 Active (PROAMATINE) 10 MG mouth 3 (three) tablet times daily. cloNIDine HCl Take 0.1 mg by 0 D iscontinued (CATAPRES) 0.1 MG mouth 2 (two) 020 (Error) tablet times daily . famotidine Take 20 mg by 0 Disco ntinued (PEPCID) 20 MG mouth 2 (two) 020 ( Error) tablet times daily. vancomycin Inject 750 mg 0 Disco ntinued (VANCOCIN) 750 MG intravenously 3 8 020 (Stop Taking at IV in NS 100 ML (three) times a Discharge) MBP week after dialysis. darbepoetin Inject 60 mcg 0 Disc ontinued ephraim-polysorbate subcutaneously 020 (Error) (ARANESP) 60 once. mcg/0.3 mL Syrg injection senna-docusate Take 2 tablets by 0 Discontinued (SENOKOT S) 8.6-50 mouth nightly. 020 (Error) mg per tablet HEPARIN SOD,PORK Inject 0 Dis continued IN 0.45% NACL intravenously. 020 ( Stop Taking at (HEPARIN,PORCINE, Di scharge) IN 0.45% NACL) 5,000 unit/1,000 mL SolP INSULIN ASPART Inject 0 Disco ntinued PROT/INSULN ASP subcutaneously. 020 (Error) (INSULIN ASP PRT-INSULIN ASPART SUBQ) ondansetron Take 4 mg by mouth 0 Discontinued (ZOFRAN) 4 MG as needed for 020 (E rror) tablet Nausea. thiamine (VITAMIN Take 50 mg by 0 Discontinued B-1) 50 MG tablet mouth daily. 020 (Error) acetaminophen-code Take 1 tablet by 0 09/24 Discontinued ine (TYLENOL #3) mouth every 4 020 (Error) 300-30 mg per (four) hours as tablet needed for Pain. amLODIPine Take 5 mg by mouth 0 Discontinued (NORVASC) 5 MG 2 (two) times 8 020 ( Error) tablet daily. HYDROcodone-acetam Take 1 tablet by 0 09/24 Discontinued inophen (NORCO mouth every 4 9 020 ( Error) 5-325) 5-325 mg (four) hours as per tablet needed. LANTUS SOLOSTAR Inject 10 Units 0 Discontinued U-100 INSULIN 100 subcutaneously 8 020 (Error) unit/mL (3 mL) daily. InPn SPS, WITH Take 60 mg by 0 Discon tinued SORBITOL, 15-20 mouth daily. 9 020 ( Error) gram/60 mL Susp losartan (COZAAR) Take 50 mg by 0 Discontinued 50 MG tablet mouth daily. 9 020 (Err or) apixaban (ELIQUIS) Take 5 mg by mouth 0 5 mg Tab tablet 2 (two) times 0 020 daily. Active Problems Problem Noted Date Hemodialysis catheter dysfunction 05/04/2020 Abscess of leg without foot, left 02/04/2018 Abscess of leg, left 02/03/2018 Encounters Date Type Specialty Care Team Description 06/29/2020 Anesthesia Event Shiela Ovalles MD 06/29/2020 Hospital Encounter Karli Campos MD 06/29/2020 Travel 06/24/2020 Hospital Encounter Pre-Admission Testing 06/23/2020 Travel 05/05/2020 Surgery Andres, VENOGRAM Karli Mary MD 05/04/2020 - Hospital Encounter General Internal Luci Felton Hemod ialysis 05/06/2020 Medicine MD Leonor catheter dysfunction, in itial encounter (HCC) (Primary Dx) 05/04/2020 Travel after 07/13/2019 Social History Tobacco Use Types Packs/Day Years Used Date Never Smoker Smokeless Tobacco: Never Used Alcohol Use Drinks/Week oz/Week Comments No Sex Assigned at Date Recorded Not on file COVID-19 Exposure Response Date Recorded In the last month, have you been in contact with No / Unsure 06/29/2020 10:11 AM CDT someone who was confirmed or suspected to have Coronavirus / COVID-19? Last Filed Vital Signs Vital Sign Reading Time Taken Comments Blood Pressure 194/127 06/29/2020 12:20 PM CDT Pulse 94 06/29/2020 12:20 PM CDT Temperature 37.1 C (98.7 F) 06/29/2020 10:26 AM CDT Respiratory Rate 25 06/29/2020 12:20 PM CDT Oxygen Saturation 99% 06/29/2020 12:20 PM CDT Inhaled Oxygen Concentration - - Weight 151 kg (332 lb 14.3 oz) 06/23/2020 11:55 AM CDT Height 193 cm (6' 4") 06/23/2020 11:55 AM CDT Body Mass Index 40.52 06/23/2020 11:55 AM CDT Plan of Treatment Health Maintenance Due Date Last Done Comments MEDICARE ANNUAL WELLNESS (YEAR 2 or FIRST YEAR if no 12/23/2016 IPPE) INFLUENZA VACCINE (#1) 2020 LIPID PANEL 05/04/2023 05/04/2020 Procedures Procedure Name Priority Date/Time Associated Diagnosis Comme nts POTASSIUM STAT 06/29/2020 10:37 Results for this AM CDT procedure are i n the results section. POCT-GLUCOSE METER Routine 06/29/2020 10:35 Resul ts for this AM CDT procedure are i n the results section. REPORT OF PROCEDURE - 06/29/2020 Result s for this ENDOSCOPY SCAN procedure are in the results section. TRANSFUSION SERVICE 06/25/2020 6:05 REPORT - SCAN PM CDT CBC W/PLT COUNT & AUTO Routine 06/24/2020 12:09 R esults for this DIFFERENTIAL PM CDT procedure are i n the results section. TYPE AND SCREEN, Routine 06/24/2020 12:09 Results for this AUTOMATED PM CDT procedure are i n the results section. PT/APTT Routine 06/24/2020 12:09 Results for this PM CDT procedure are i n the results section. CBC W/PLT COUNT & AUTO Routine 06/24/2020 12:09 R esults for this DIFFERENTIAL PM CDT procedure are i n the results section. BASIC METABOLIC PANEL Routine 06/24/2020 12:09 Re sults for this (7) PM CDT procedure are i n the results section. SARS-COV2/RT-PCR ([facility] Routine 06/24/2020 12:09 R esults for this & REF LABS) PM CDT procedure are i n the results section. CARDIAC CATH REPORT - 05/10/2020 1:20 SCAN PM CDT POCT-GLUCOSE METER Routine 05/06/2020 11:25 Resul ts for this AM CDT procedure are i n the results section. POCT-GLUCOSE METER Routine 05/06/2020 4:39 Resul ts for this AM CDT procedure are i n the results section. POCT-GLUCOSE METER Routine 05/05/2020 10:14 Resul ts for this PM CDT procedure are i n the results section. HEPATITIS B SURFACE Routine 05/05/2020 8:26 Resu lts for this ANTIBODY PM CDT procedure are i n the results section. HEPATITIS B SURFACE STAT 05/05/2020 8:26 Resu lts for this ANTIGEN PM CDT procedure are i n the results section. POCT-GLUCOSE METER Routine 05/05/2020 6:38 Resul ts for this PM CDT procedure are i n the results section. POCT-GLUCOSE METER Routine 05/05/2020 5:19 Resul ts for this PM CDT procedure are i n the results section. VENOGRAM 05/05/2020 4:00 Hemodialysis PM CDT catheter dysfunction, initial encounter (HCC) POCT-GLUCOSE METER Routine 05/05/2020 12:56 Resul ts for this PM CDT procedure are i n the results section. POCT-GLUCOSE METER Routine 05/05/2020 12:13 Resul ts for this PM CDT procedure are i n the results section. POCT-GLUCOSE METER Routine 05/05/2020 11:20 Resul ts for this AM CDT procedure are i n the results section. POCT-GLUCOSE METER Routine 05/05/2020 6:06 Resul ts for this AM CDT procedure are i n the results section. COMPREHENSIVE Routine 05/05/2020 5:42 Results fo r this METABOLIC PANEL AM CDT procedure ar e in the results section. POCT-GLUCOSE METER Routine 05/04/2020 8:48 Resul ts for this PM CDT procedure are i n the results section. SARS-COV2/RT-PCR (HS Routine 05/04/2020 4:57 R esults for this & REF LABS) PM CDT procedure are i n the results section. CBC W/PLT COUNT & AUTO Routine 05/04/2020 4:17 R esults for this DIFFERENTIAL PM CDT procedure are i n the results section. CBC W/PLT COUNT & AUTO Routine 05/04/2020 4:17 R esults for this DIFFERENTIAL PM CDT procedure are i n the results section. PHOSPHORUS Routine 05/04/2020 4:17 Results for this PM CDT procedure are i n the results section. MAGNESIUM Routine 05/04/2020 4:17 Results for this PM CDT procedure are i n the results section. LIPID PANEL Routine 05/04/2020 4:17 Results for this PM CDT procedure are i n the results section. PROTHROMBIN TIME/INR Routine 05/04/2020 4:17 Res ults for this PM CDT procedure are i n the results section. HEPATIC FUNCTION PANEL Routine 05/04/2020 4:17 R esults for this PM CDT procedure are i n the results section. BASIC METABOLIC PANEL Routine 05/04/2020 4:17 Re sults for this (7) PM CDT procedure are i n the results section. TROPONIN I Routine 05/04/2020 4:17 Results for this PM CDT procedure are i n the results section. after 07/13/2019 Results Potassium (06/29/2020 10:37 AM CDT) Pathologist Sig nature Potassium 5.4Comment: 3.6 - 5.5 meq/L [place] Specimen slightly LABORATORY hemolyzed Specimen Blood Narrative Performed At Airline Stewardess ID - ADMIN [facility] [facility] Performing Organization Address City/State/Zipcode Phone Number [facility] [address] [place], [place] [address] POC-Glucose meter (06/29/2020 10:35 AM CDT)Only the most recent of11 results within the time period is included. POC-Glucose Meter 93Comment: : 70 - [address] [facility] [address] HERNANDEZ TESTED AT [facility] mg/dL [facility] [address] [facility] [place] [id number]: Airline Stewardess/Technicia n ID = [id number] for Fatou Yañez Specimen Blood Performing Organization Address City/State/Zipcode Phone Number [facility] [address] [place] [address] CENTER EKG-SCANNED (06/29/2020) Narrative Performed At This result has an attachment that is no t available. Ordered by an unspecified provider. TRANSFUSION SERVICE REPORT - SCAN (06/25/2020 6:05 PM CDT) Narrative Performed At This result has an attachment that is no t available. SARS-CoV2/RT-PCR (Asymptomatic ONLY) (06/24/2020 12:09 PM CDT)Only the most recent of2 resultswithin the time period is included. SARS-COV2/RT-PCR Negative Not Detected, ROHIT COTTON Negative, See [facility] external report CENTER for linked test SARS-COV-2 [facility] NANDO PERFORMING LAB [facility] Specimen Other - Nasopharyngeal wall structure (b sophia structure) Narrative Performed At Negative result for this test determines that [facility] Teofilo [facility] SARS-CoV-2 RNA was not present in the specimen above the Limit of Detection (LOD). However, Negative results do not preclude SARS-CoV-2 infection and should not be used as the sole basis for treatment or patient management decisions. Negative results must be combined with clinical observations, patient history, and epidemiological information. A false negative result may occur if a specimen is improperly collected, transported or handled. A false negative result should be considered if patient's recent exposures or clinical presentation indicate that COVID-19 (SARS-CoV-2) is likely and diagnostic tests for other causes of illness are negative. Re-testing should be considered in cases of suspected false negatives. The limit of detection for this assay is 800 copies/mL. This SARS CoV-2 test is a real-time RT-PCR test intended for the qualitative detection of nucleic acid from SARS-CoV-2 in a nasopharyngeal swab specimen collected from individuals suspected of COVID-19 by their healthcare provider. This test has not been Food and Drug Administration (FDA) cleared or approved. This is a modified version of an approved Emergency Use Authorization (EUA) and is in the process of review by the FDA. Once authorized by the FDA, the issued EUA will be effective until the declaration that circumstances exist justifying the authorization of the emergency use of in vitro diagnostic tests for detection and/or diagnosis of COVID-19 is terminated under Section 564(b)(2) of the Act or the EUA is revoked under Section 564(g) of the Act. Fact Sheet for Healthcare Providers: https://www.Stayfilm.Goojitsu/sites/default/files/pro duct/documents/Fact_Sheet_HC_Providers_Ellen_SA RS-CoV-2.pdf Fact Sheet for Healthcare Patients: https://www.Stayfilm.Goojitsu/sites/default/files/pro duct/documents/Fact_Sheet_Patients_Lyra_SARS-C oV-2.pdf Performing Laboratory: [address] [place] [address] Performing Organization Address City/[facility]/Zipcode Phone Number [address] [address] CENTER Type and screen, automated (06/24/2020 12:09 PM CDT) Pathologist Sig nature ABO/RH AUTOMATED O [facility] (BEAKER) [facility] : GLENDIVE Ab Scrn NEGATIVEComment [facility] : [facility] Specimen Blood Performing Organization Address [facility] Services[facility] Phone Number [facility] [address] [place] [address] [facility] PT/aPTT (06/24/2020 12:09 PM CDT) Pathologist Sig nature Protime 12.4 (H) 9.3 - 12.0 sec [facility] INR 1.15 <=5.90 [facility] PTT 27.7 23.0 - 35.0 sec [facility] Specimen Blood Narrative Performed At RECOMMENDED COUMADIN/WARFARIN INR THERAP Y RANGES [facility] STANDARD DOSE: 2.0 - 3.0 Includes: PROPHYLAXIS for venous thrombosis, systemic embolization; TREATMENT for venou s thrombosis and/or pulmonary embolus. HIGH RISK: Target INR is 2.5-3.5 for patients with mec hanical heart valves. Final Information (Auto Output) Final Information (Auto Output) Final Information (Auto Output) Performing Organization Address [facility]/Zipcode Phone Number [facility] [address] [place], [place] [address] CBC with platelet count + automated diff (06/24/2020 12:09 PM CDT)Only the most recent of2 resultswithin the time period is included. Pathologist Sig nature WBC 5.6 4.0 - 10.0 [place] K/L LABORATORY RBC 4.30 4.20 - 5.80 [place] M/L [facility] Hemoglobin 11.9 (L) 13.0 - 16.8 [place] GM/DL LABORATORY Hematocrit 40.1 36.0 - 50.0 % [facility] [place] MCV 93.3 82.0 - 99.0 fL [facility] [place] MCH 27.7 27.0 - 33.0 pg [place] [facility] MCHC 29.7 (L) 32.0 - 36.0 [place] GM/DL LAB[facility] RDW 16.6 (H) 12.0 - 15.0 % [facility] [place] Platelets 145 (L) 150 - 430 K/CU [place] MM [facility] MPV 9.3 6.0 - 11.5 fL [facility] [place] nRBC 0 0 - 0 /100 WBC [facility] [facility] % Neutros 69 % [place] [facility] % Lymphs 18 % [place] [facility] % Monos 9 % [place] [facility] % Eos 2 % [place] [facility] % Baso 0 % [facility] [place] # Neutros 3.86 1.80 - 8.00 [place] K/L LABOR[facility] # Lymphs 1.02 (L) 1.48 - 4.50 [place] K/L LABOR[facility] # Monos 0.52 0.00 - 1.30 [place] K/L LABOR[facility] # Eos 0.13 0.00 - 0.50 [place] K/L LAB[facility] # Baso 0.02 0.00 - 0.20 [place] K/L LAB[facility] Immature 0 0 - 0 % [place] Granulocytes-Relativ LABORATORY e Specimen Blood Narrative Performed At Few Platelet clumps noted, count appears to be normal. [facility] Performing Organization Address City/State/Zipcode Phone Number [facility] [address] [place], [place] [address] Basic Metabolic Panel (06/24/2020 12:09 PM CDT)Only the most recent of2 results within the time period is included. Sodium 134 (L) 135 - 148 meq/L [facility] Potassium 4.3 3.6 - 5.5 meq/L [facility] Chloride 103 98 - 106 meq/L [facility] CO2 20 20 - 29 meq/L [facility] BUN 29 (H) 10 - 26 mg/dL [facility] Creatinine 9.99 (H) 0.50 - 1.20 [place] mg/dL [facility]ORY Glucose 135 (H) 70 - 110 mg/dL [facility] Calcium 11.1 (H) 8.5 - 10.5 [place] mg/dL LAB[facility]ATORY EGFR 7Comment: ESTIMATED mL/min/1.73 sq [place] GFR IS NOT m LABORATORY ACCURATE CREATININE CLEARANCE IN PREDICTING GLOMERULAR FILTRATION RATE. ESTIMATED GFR IS NOT APPLICABLE FOR DIALYSIS PATIENTS. Specimen Blood Narrative Performed At Airline Stewardess ID - ADMIN [facility] [employer] [facility] Performing Organization Address City/[facility] Services[facility] Phone Number [facility] [address] [place], [place] [address] CARDIAC CATH REPORT - SCAN (05/10/2020 1:20 PM CDT) Narrative Performed At This result has an attachment that is no t available. Hepatitis B surface antibody (05/05/2020 8:26 PM CDT) Pathologist Sig nature Hep B S Ab 59.2 (H) <8.0 mIU/mL [facility] Specimen Blood Narrative Performed At Airline Stewardess ID - ASIYA Villa [facility] Performing Organization Address City/[facility]/[place] [address] CENTER Hepatitis B surface antigen (05/05/2020 8:26 PM CDT) Pathologist Sig nature HBsAg Screen Nonreactive Nonreactive [facility] [facility] Specimen Blood Narrative Performed At Airline Stewardess ID - ERIKA [employer] [facility] Performing Organization Address City/[facility] Services[facility] Phone Number [facility] [address] [place], [place] [address] Comprehensive metabolic panel (05/05/2020 5:42 AM CDT) Protein, Total 7.6 6.0 - 8.5 [place] gm/dL LAB[facility]ATORY Albumin 3.7 3.5 - 5.0 [place] g/dL [facility] Alkaline 222 (H) 30 - 115 U/L [place] Phosphatase LABORATORY Total Bilirubin 0.6 0.1 - 1.2 [place] mg/dL LAB[facility]ATORY Sodium 134 (L) 135 - 148 [place] meq/L LAB[facility] Potassium 5.4 3.6 - 5.5 [place] meq/L [facility] Chloride 97 (L) 98 - 106 [place] meq/L [facility] CO2 22 20 - 29 meq/L [facility] [place] [facility] BUN 83 (H) 10 - 26 mg/dL [facility] [facility] Creatinine 16.03 (H) 0.50 - 1.20 [place] mg/dL LAB[facility]ATORY Glucose 124 (H) 70 - 110 [facility] mg/dL LABORATORY Calcium 9.8 8.5 - 10.5 [facility] mg/dL LABORATORY AST 75 (H) 5 - 40 U/L [facility] [facility] ALT 31 5 - 50 U/L [facility] [facility] EGFR 4Comment: mL/min/1.73 [place] ESTIMATED GFR IS sq m LABORATORY NOT ACCURATE CREATININE CLEARANCE IN PREDICTING GLOMERULAR FILTRATION RATE. ESTIMATED GFR IS NOT APPLICABLE FOR DIALYSIS PATIENTS. Specimen Blood Narrative Performed At Airline Stewardess ID - [id number] [facility] Performing Organization Address [facility] Servicescode Phone Number [facility] [address], [place] [address] Troponin I (05/04/2020 4:17 PM CDT) Pathologist Sig [employer] Troponin I 0.05 0.00 - 0.15 ng/mL [facility] [facility] Specimen Blood Narrative Performed At Troponin I (TnI) levels must be interpreted in the con text of [facility] the presenting symptoms and the clinical findings. Corie vated TnI levels indicate myocardial damage, but are not specifi c for ischemic heart disease. Elevated TnI levels are seen i n patients with other cardiac conditions (including myoc arditis and congestive heart failure), and slight TnI elevatio ns occur in patients with other conditions, including sepsis, r enal failure, acidosis, acute neurological disease, and per sistent tachyarrhythmia. Airline Stewardess ID - AGONZALEZ Performing Organization Address [facility] Servicescode Phone Number [facility] [address], [place] [address] Prothrombin time/INR (05/04/2020 4:17 PM CDT) Pathologist Sig [employer] Protime 11.6 9.3 - 12.0 sec [facility] [facility] INR 1.07 <=5.90 [facility] Specimen Blood Narrative Performed At RECOMMENDED COUMADIN/WARFARIN INR THERAP Y RANGES [facility] [facility] STANDARD DOSE: 2.0 - 3.0 Includes: PROPHYLAXIS for venous thrombosis, systemic embolization; TREATMENT for venou s thrombosis and/or pulmonary embolus. HIGH RISK: Target INR is 2.5-3.5 for patients with mec hanical heart valves. Final Information (Auto Output) Final Information (Auto Output) Performing Organization Address City/[facility] Services[facility] Phone Number [facility] [address] [place], [place] [address] Phosphorus (05/04/2020 4:17 PM CDT) Pathologist Sig nature Phosphorus 4.6 (H) 2.5 - 4.5 mg/dL [facility] Specimen Blood Narrative Performed At Airline Stewardess ID - [facility] Performing Organization Address [facility] Phone Number [facility] [address] [place] [address] Magnesium (05/04/2020 4:17 PM CDT) Pathologist Sig nature Magnesium 2.8 1.5 - 3.0 mg/dL [facility] Specimen Blood Narrative Performed At Airline Stewardess [place] - [facility] Performing Organization Address [facility] Phone Number [facility] [address] [place] [address] Hepatic function panel (05/04/2020 4:17 PM CDT) Pathologist Sig nature Protein, Total 9.4 (H) 6.0 - 8.5 gm/dL [facility] Albumin 4.6 3.5 - 5.0 g/dL [facility] Total Bilirubin 0.7 0.1 - 1.2 mg/dL [facility] Bilirubin, Direct 0.4 0.0 - 0.4 mg/dL [facility] Alkaline Phosphatase 235 (H) 30 - 115 U/L [facility] AST 27 5 - 40 U/L [facility] ALT 11 5 - 50 U/L [facility] [facility] Specimen Blood Narrative Performed At Airline Stewardess ID - [facility] Performing Organization Address [facility] Phone Number [facility] [address] [place], [place] [address] Lipid panel (05/04/2020 4:17 PM CDT) Pathologist Sig nature Triglycerides 76 mg/dL [facility] Cholesterol 79 mg/dL [facility] HDL 38 mg/dL [facility] LDL Calculated 26 mg/dL [facility] Specimen Blood Narrative Performed At Triglyceride Reference Range: [facility] Low Risk <150 Borderline 150-199 High Risk 200-499 Very High Risk >=500 Cholesterol Reference Range: Low Risk <200 Borderline 200-239 High Risk >240 HDL Cholesterol Reference Range: Low Risk >=60 High Risk <40 LDL Cholesterol Reference Range: Optimal <100 Near Optimal 100-129 Borderline 130-159 High 160-189 Very High >=190 Airline Stewardess ID - AGONZALEZ Airline Stewardess ID - AGONZALEZ Airline Stewardess ID - AGONZALEZ Performing Organization Address City/State/Zipcode Phone Number [facility] [address], [place] [address] after 07/13/2019 Insurance Payer Benefit Plan / Subscriber ID Effective Dates Phone Addre ss Type Group MEDICARE MEDICARE A B [id number] 2015-Present Medicare CDC REVIEW CDC REVIEW [id number] 2020-[place] [address] ([place]) [address] [place] [address] Advance Directives For more information, please contact: [phone] Code Status Date Activated Date Inactivated Comments Full Code 05/04/2020 1:18 PM 05/06/2020 6:12 PM This code status was determined by: Patient
--- OUTSIDE RECORDS SUMMARY | 2020-07-13 22:28 | XMS REPORT | Continuity of Care Document ---
:[address] [facility] t Address [address] [place] [address] Care Team Providers Name Role Phone Sharpless Primary Care Physician Andres MESSER, TIsauro Attending Clinician Aramis Og MD Attending Clinician Juana CULVER Attending Clinician Eloise Campos MD Attending Clinician Bravo Ovalles MD Attending Clinician ELOISE CAMPOS Attending Clinician Unavailable Damian Rosenbaum MD Attending Clinician Leonor Felton MD Attending Clinician LEONOR FELTON Attending Clinician Unavailable Jose Heller MD Attending Clinician [phone] Mary Carmen BARAHONA Attending Clinician Kate MESSER Attending Clinician Janet Hartley MD Attending Clinician Malcolm Sheehan MD Attending Clinician Leonor Felton MD Attending Clinician Otilio WRIGHT Attending Clinician Unavailable Michelle Dyer MD Attending Clinician Yogesh MESSER V. Attending Clinician Paulie Urban NP Attending Clinician JONATHAN Attending Clinician Unavailable DR CAT Attending Clinician Unavailable ANDRES Admitting Clinician Unavailable ELOISE CAMPOS Admitting Clinician Unavailable LEONOR FELTON Admitting Clinician Unavailable KATE Admitting Clinician Unavailable JOSE FRANCISCO Admitting Clinician Unavailable JONATHAN Admitting Clinician Unavailable DR CAT Admitting Clinician Unavailable Payers Payer Name Policy Type Policy Effective Date Expiration Date Sour ce Number MEDICAREMEDICARE PART [id number] 2015 Tray Wilson AND 00:00:00 Congregational [id number] 2015[facility] [place]ICAREMED[facility] A [id number] 2015 ROHIT [place] YkanwrkcIG250/09/2015- 00:00:00 - M edical PresentMedicare Center CDC REVIEWCDC [id number] 2020 [place] [id number] 00:00:00 - M [address] [id number] Problems Condition Condition Condition Status Onset Resolution Last Treating Co mments Source Name Details Category Date Date Treatment Clinician Date Hemodialys Hemodialys Disease Active C [facility] is is 8-12 [facility] - catheter catheter 00:00: Medica l dysfunctio dysfunctio 00 Ce nter n n Cellulitis Cellulitis Disease [place] left of left 03-23 [facility] upper arm upper arm 00:00: st 00 Problem Problem Disease Active Man with with 1-28 [facility] dialysis dialysis 00:00: st access access 00 ESRD (end ESRD (end Disease Active [facility] stage stage 1-28 [facility] renal renal 00:00: st disease) disease) 00 ESRD (end ESRD (end Disease Active [facility] stage stage 1-27 [facility] renal renal 00:00: st disease) disease) 00 on on dialysis dialysis Abscess of Abscess of Disease Active C [facility] leg leg 5-15 [facility] - without without 00:00: Medical foot, left foot, left 00 Ce nter Abscess of Abscess of Disease Active [facility] leg, left leg, left 5-14 [facility] Allergies, Adverse Reactions, Alerts This patient has no known allergies or adverse reactions. Family History Family Member Diagnosis Comments Start Date Stop Date Source Natural father Hypertension Man Congregational Natural father Kidney disease [place] [facility] Natural father Stroke [facility] thodist Natural mother No Known Problems [place] [facility] Paternal grandfather Diabetes [place] [facility] Social History Social Habit Start Date Stop Date Quantity Comments Source History of tobacco Current smoker [place] [facility] use History [facility] Meth odist Alcohol Std Drinks History [facility] Meth odist Alcohol Binge Sex Assigned At [facility] ethodist Exposure to Not sure [facility] Metho dist SARS-CoV-2 (event) Cigarettes smoked 2020-07-07 2020-07-07 Man Congregational current (pack per 00:00:00 00:00:00 day) - Reported Cigarette 2020-07-07 2020-07-07 [facility] Method ist pack-years 00:00:00 00:00:00 Tobacco use and 2020-07-07 2020-07-07 Never used [facility] ethodist exposure 00:00:00 00:00:00 Alcohol intake 2020-07-07 2020-07-07 Ex-drinker [facility] thodist 00:00:00 00:00:00 (finding) History SDOH 2019-08-24 2019-08-24 1 [facility] Meth odist Alcohol Frequency 00:00:00 00:00:00 Smoking Status Start Date Stop Date Source Former smoker 2020-07-07 00:00:00 2020-07-07 00:00:00 Donovan Villavicencio Never smoker [facility] Medications Ordered Filled Start Stop Current Ordering Indication Dosage Frequency Signature Comments Components Source Medication Medication Date Date Medication? Clinician (SIG) Name Name insulin 2019-09 Yes 30U QD Inject Marine ASPART 0-14 30-60 Methodi (NovoLOG) 17:50: Units st 100 unit/mL 10 under the injection skin nightly. SLIDING SCALE multivitami 2019-09 Yes 1{tbl} QD Take 1 [place] 0-14 tablet by Methodi (THERAGRAN) 17:50: mouth st tablet 10 daily. metoprolol 2020-1 Yes 100mg Q.[id number] Take 100 Man tartrate 0-14 [id number] mg by Meth marjan (LOPRESSOR) 17:50: 3D mouth 3 st 100 mg 10 (three) tablet times a day. apixaban 2019-09 Yes 5mg Q.5D Take 5 mg [place] (Eliquis) 5 0-14 by mouth 2 Me thodi mg tablet 17:50: (two) st 10 times a day. hydrALAZINE 2019-09 Yes 25mg Take 25 mg Man (APRESOLINE 0-14 by mouth Meth marjan ) 25 MG 17:50: as needed. st tablet 10 HYDROcodone 2019-09 2020- Yes acute pain 1{tbl} Q6H Take 1 Man -acetaminop 0-14 10-21 tablet by Me thodi hen (NORCO) 00:00: 23:[address] 5-325 mg 00 :00 every 6 per tablet (six) hours as needed for moderate pain for up to 30 doses .acute pain. Max Daily Amount: 4 tablets atorvastati 2019-09 Yes 40mg QD Take [address] [facility] [facility] (LIPITOR) 0-07 by mouth Luke s - 80 MG 14:56: daily . Medical tablet 52 Center LORazepam 2019-09 Yes 1mg Take [address] (ATIVAN) 1 0-07 by mouth [facility] - MG tablet 14:56: every 6 Medic al 52 (six) Center hours as needed for Anxiety. multivitami 2019-09 Yes 1{tbl} QD Take [address] n per 0-07 tablet by [facility] - tablet 14:56: mouth Medical 52 daily. [place] sevelamer 2019-09 Yes 800mg Q.[id number] Take [address] (RENVELA) 0-07 [id number] mg by Sulaiman es - 800 mg 14:56: 3D mouth 3 Medical tablet 52 (three) Center times daily . insulin 2019-09 Yes 30U QD Inject [facility] aspart 0-07 30-60 [facility] - U-100 14:56: Units Medical (NOVOLOG) 52 subcutaneo Cent er 100 unit/mL usly injection nightly. midodrine 2019-09 Yes 10mg Q.[id number] Take [address] (PROAMATINE 0-07 [id number] by mouth 3 [facility] - ) 10 MG 14:56: 3D (three) Medical tablet 52 times Center daily. thiamine 2019-09- No 50mg QD Take [address] (VITAMIN 0-06-23 by mouth [facility] - B-1) 50 MG 11:52: 00:00 daily. Medi negrita tablet 25 :00 Center senna-docus 2019-09- No 2{tbl} QD Take [address] ate 0-06-23 tablets by [facility] - (SENOKOT S) 11:51: 00:00 mouth Medi negrita 8.6-50 mg 47 :00 nightly. Center per tablet ondansetron 2019-09- No 4mg Take [address] (ZOFRAN) 4 0-06-23 by mouth Luke s - MG tablet 11:51: 00:00 as needed Me dical 38 :00 for Center Nausea. INSULIN 2019-09- No Inject [facility] ASPART 0- 10 subcutaneo [facility] - PROT/INSULN 11:50: 00:00 usly. Medi negrita ASP 45 :00 Center (INSULIN ASP PRT-INSULIN ASPART SUBQ) famotidine 2019-09- No 20mg Q.5D Take [address] (PEPCID) 20 0-06-23 by mouth 2 L ukes - MG tablet 11:49: 00:00 (two) Medica l 51 :00 times Center daily. darbepoetin 2019-09- No 60ug Inject [address] ephraim-polyso 0-01 10- mcg [facility] - rbate 11:49: 00:00 subcutaneo Medic al (ARANESP) 42 :00 usly once. Cent er 60 mcg/0.3 mL Syrg injection cloNIDine 2019-09- No .1mg Q.5D Take 0.[address] HCl 0-01 10- mg by [facility] - (CATAPRES) 11:49: 00:00 mouth 2 Med ical 0.1 MG 25 :00 (two) Center tablet times daily . acetaminoph 2019-09- No 1{tbl} Take [address] en-codeine 0-06-23 tablet by Sulaiman es - (TYLENOL 11:48: 00:00 mouth Medical #3) 300-30 14 :00 every 4 Center mg per (four) tablet hours as needed for Pain. HEPARIN 2019- 2020- No Inject [facility] SOD,PORK IN 05-06-14 intravenou L ukes - 0.45% NACL 12:31: 00:00 sly. Medica l (HEPARIN,PO 07 :00 Center RCINE, IN 0.45% NACL) 5,000 unit/1,000 mL SolP HYDROCODONE 2019-0 2020- No Q.5D Take by [place] BITARTRATE 05-02- mouth 2 Metho di ORAL 10:29: 00:00 (two) st 22 :00 times a day. HYDROcodone 2019- 2020- No acute pain 1{tbl} Q6H Take 1 Man -acetaminop 05-02 tablet by Me fishman hen (NORCO) 00:00: 23:[address] 5-325 mg 00 :00 every 6 per tablet (six) hours as needed for moderate pain for up to 30 doses .acute pain. Max Daily Amount: 4 tablets apixaban 2019- No 5mg Q.5D Take [address] (ELIQUIS) 5 04-01 by mouth 2 L ukes - mg Tab 00:00: 23:59 (two) Medical tablet 00 :00 times Center daily. apixaban 2019- No deep venous 5mg Q.5D Take 1 Man (ELIQUIS) 5 04-01 thrombosis tablet (5 Methodi mg tablet 00:00: 23:59 mg total) st 00 :00 by mouth 2 (two) times a day for 90 days .blood clot in a deep vein of the extremitie s. aspirin 325 2019-2019- No 325mg QD Take 325 Man MG tablet 03-25 mg by Methodi 18:55: 00:[address] 58 :00 daily. metoprolol 2019- 2020- No 100mg Q.[id number] Take 1 Man tartrate 03-25 [id number] tablet Me fishman (LOPRESSOR) 00:00: 23:59 3D ([address] 100 mg 00 :00 total) by tablet mouth 3 (three) times a day for 30 days. vancomycin 2019- 2020- No 1250mg Q.[id number] Infuse Man 1,250 mg in 03-25 [id number] 1,250 mg Methodi sodium 00:00: 23:[address] chloride 00 :00 venous 0.9% 250 mL catheter 3 IVPB (three) times a week for 15 days. apixaban 2019- No deep venous 10mg Q.5D Take 2 Man (ELIQUIS) 5 7-03 07-09 thrombosis tablets Methodi mg tablet 00:00: 23:59 ([address] 00 :00 total) by mouth 2 (two) times a day for 6 days .blood clot in a deep vein of the [facility] s. HYDROcodone 2018-09- No acute pain 1{tbl} Q6H Take 1 Man -acetaminop 2- 12-09 tablet by Me sravanthi castro (NORCO) 00:00: 23:[address] 5-325 mg 00 :00 every 6 per tablet (six) hours as needed for moderate pain for up to 30 doses .Acute Pain. Max Daily Amount: 4 tablets VELPHORO 2018-09 Yes 1500mg Q.[id number] Chew 1,500 Man 500 mg 1-12 [id number] mg 3 [facility] tablet,chew 00:00: 3D (three) st able 00 times a day with meals. midodrine 2018-09 Yes 10mg Q.[id number] Take 10 mg Man (PROAMATINE 1-11 [id number] by mouth 3 Methodi ) 10 MG 00:00: 3D (three) st tablet 00 times a day. On days of dialysis atorvastati 2018-09 Yes 40mg QD Take 40 mg Man n (LIPITOR) 0-28 by mouth Meth marjan 40 MG 00:00: nightly. st tablet 00 mirtazapine 2018-09 Yes 30mg QD Take 30 mg Man (REMERON) 0-28 by mouth Method i 30 MG 00:00: nightly. st tablet 00 sevelamer 2018-09 Yes 4{tbl} Q.[id number] Take 4 Man (RENVELA) 0-28 [id number] tablets by Methodi 800 mg 00:00: 3D mouth 3 st tablet 00 (three) times a day with meals. TAKE 2 TABS WITH EACH SNACK LANTUS 2018-09- No 15U Q24H Inject 15 [place] on U-100 0-28 07-10 Units Methodi INSULIN 100 00:00: 00:[address] unit/mL 00 :00 skin daily injection as needed. (vial) metoprolol 2018-09- No 100mg Q.5D Take 100 [place] tartrate 0-28 07-03 mg by Methodi (LOPRESSOR) 00:00: 00:[address] 50 mg 00 :00 (two) tablet times a day. HYDROcodone 2020- No 1{tbl} Take [address] -acetaminop -06-23 tablet by Shanon castro ([employer] 00:00: 00:00 mouth Medic al 5-325) 00 :00 every 4 Center 5-325 mg (four) per tablet hours as needed. HYDROcodone 2019- No 1{tbl} Take 1 [place] -acetaminop -10-19 tablet by Me sravanthi castro ([employer]) 00:00: 00:[address] 5-325 mg 00 :00 per tablet SPS, WITH 2019- No 60mg QD Take [address] SORBITOL, 10-09 by mouth [facility] - 15-20 00:00: 00:00 daily. Medical gram/60 mL 00 :00 Center Susp mirtazapine Yes 1{tbl} QD Take [address] (REMERON 1-09 tablet by Cristine - MARCO A-TAB) 30 00:00: mouth Medic al MG 00 nightly. Center disintegrat ing tablet losartan 2019- No 50mg QD Take [address] (COZAAR) 50 09-30 by mouth Sulaiman es - MG tablet 00:00: 00:00 daily. Medic al 00 :00 Center VELPHORO Yes 1{tbl} Q.[id number] Take [address] 500 mg Chew 09-23 [id number] tablet by [facility] - 00:00: 3D mouth 3 Medical 00 (three) Center times daily WITH MEALS. LANTUS 2017-09- No 10U QD Inject 10 [facility] SOLOSTAR 11-11 Units [facility] - U-100 00:00: 00:00 subcutaneo Medic al INSULIN 100 00 :00 usly Center unit/mL (3 daily. mL) InPn metoprolol 2017-09 Yes 100mg Q.[id number] Take [address] (TOPROL-XL) 2-14 [id number] mg by L ukes - 100 MG 24 00:00: 3D mouth 3 Medic al hr tablet 00 (three) Center times daily . metoprolol 2017-09 Yes 25mg Take [address] (TOPROL-XL) 2-14 by mouth Luke s - 25 MG 24 hr 00:00: as needed M edical tablet 00 For Center hypertensi on post dialysis. hydrALAZINE 2017-09 Yes 25mg Take [address] (APRESOLINE -06 by mouth Luke s - ) 25 MG 00:00: as needed Medic al tablet 00 For SBP> Center 165. amLODIPine 2017-09- No 5mg Q.5D Take [address] (NORVASC) 5 10-29 10 by mouth 2 L ukes - MG tablet 00:00: 00:00 (two) Medica l 00 :00 times Center daily. vancomycin No 750mg Inject [address] (VANCOCIN) 5-16 08-14 mg [facility] - 750 MG IV 00:00: 00:00 intravenou M edical in NS 100 00 :00 sly 3 Center ML MBP (three) times a week after dialysis. Vital Signs Vital Name Observation Time Observation Value Comments Source Systolic blood 2020-07-06 17:24:00 124 mm[Hg] Yolis n Congregational pressure Diastolic blood 2020-07-06 17:24:00 73 mm[Hg] Josue on Congregational pressure Heart rate 2020-07-06 17:24:00 98 /min Donovan Villavicencio Respiratory rate 2020-07-06 17:24:00 18 /min hSerita ton Congregational Oxygen saturation in 2020-07-06 17:24:00 97 /min Donovan Villavicencio Arterial blood by Pulse oximetry Body temperature 2020-07-06 16:30:00 36.56 Esther Sherita pan Congregational Body height 2020-07-04 12:54:00 193 cm Donovan Villavicencio Body weight 2020-07-04 12:54:00 152.862 kg Donovan Villavicencio BMI 2020-07-04 12:54:00 41.02 kg/m2 Donovan Villavicencio Systolic blood 2020-06-29 12:20:00 194 mm[Hg] [facility] Diastolic blood 2020-06-29 12:20:00 127 mm[Hg] [facility] Heart rate 2020-06-29 12:20:00 94 /min [facility] Respiratory rate 2020-06-29 12:20:00 25 /min [facility] Oxygen saturation in 2020-06-29 12:20:00 99 /min [facility] Arterial blood by Medical Ce nter Pulse oximetry Body temperature 2020-06-29 10:26:00 37.06 Esther [facility] Body height 2020-06-23 11:55:00 193 cm [facility] Body weight 2020-06-23 11:55:00 151 kg [facility] BMI 2020-06-23 11:55:00 40.52 kg/m2 [facility] Procedures Procedure Date / Time Performing Clinician Source Performed POC GLUCOSE 2020-07-06 16:10:00 Mata Campos AR AN ELECTIVE 2020-07-06 14:20:32 Marisol [place] thodist SUPRAGLOTTIC AIRWAY [place] POC PANEL 2020-07-06 12:24:00 Mata Campos BASIC METABOLIC PANEL 2020-07-06 12:18:00 Yolis Dyer PROTHROMBIN TIME WITH INR 2020-07-06 12:18:00 Tray Dyer PARTIAL THROMBOPLASTIN 2020-07-06 12:18:00 Josue Dyer on Congregational TIME (PTT) Dorian Martinez ESTIMATED GFR 2020-07-06 12:18:00 Donovan Dyer Meth odmagda Martinez ECG PRE/POST OP 2020-07-04 13:43:01 Mike Og COVID-19 QUALITATIVE PCR 2020-07-04 13:06:00 Mata Campos HC COMPLETE BLD COUNT 2020-07-04 13:06:00 Mata Campos W/AUTO DIFF TYPE AND SCREEN 2020-07-04 13:06:00 Mata Campos HEMOGLOBIN A1C 2020-07-04 13:06:00 Mike Og Congregational POTASSIUM 2020-06-29 10:37:00 Alex Crowmane [facility] POCT-GLUCOSE METER 2020-06-29 10:35:00 Mata Campos [facility] REPORT OF PROCEDURE - 2020-06-29 00:00:00 Provider, [facility] ENDOSCOPY SCAN [facility] TRANSFUSION SERVICE 2020-06-25 18:05:02 Provider, [facility] REPORT - SCAN [facility] SARS-COV2/RT-PCR ([facility] & 2020-06-24 12:09:00 Mata Campos [facility] REF LABS) Medical [place] BASIC METABOLIC PANEL (7) 2020-06-24 12:09:00 Mata Campos [facility] PT/APTT 2020-06-24 12:09:00 Mata Campos [facility] TYPE AND SCREEN, 2020-06-24 12:09:00 Mata Campos [facility] AUTOMATED [facility] CBC W/PLT COUNT & AUTO 2020-06-24 12:09:[address] [facility] DIFFERENTIAL [facility] CARDIAC CATH REPORT - 2020-05-10 13:20:59 Provider, [facility] SCAN Scanning [facility] POCT-GLUCOSE METER 2020-05-06 11:25:00 [facility]SE MET[facility] 2020-05-06 04:39:[address] [facility] POCT-GLUCOSE METER 2020-05-05 22:14:00 Luci Felton [facility] HEPATITIS B SURFACE 2020-05-05 20:26:00 [facility] ANTIGEN [facility] HEPATITIS B SURFACE 2020-05-05 20:26:00 [facility] ANTIBODY [facility] POCT-GLUCOSE METER 2020-05-05 18:38:00 Jose Francisco [facility] POCT-GLUCOSE METER 2020-05-05 17:19:00 Jose Francisco [facility] VENOGRAM 2020-05-05 16:00:00 Mata Campos [facility] POCT-GLUCOSE METER 2020-05-05 12:56:00 Jose Francisco [facility] POCT-GLUCOSE METER 2020-05-05 12:13:00 Jose Francisco [facility] POCT-GLUCOSE METER 2020-05-05 11:20:00 Jose Francisco [facility] POCT-GLUCOSE METER 2020-05-05 06:06:00 Jose Francisco [facility] COMPREHENSIVE METABOLIC 2020-05-05 05:42:00 [facility] POCT-GLUCOSE METER 2020-05-04 20:48:00 Jose Francisco [facility] SARS-COV2/RT-PCR ([facility] & 2020-05-04 16:57:00 [facility] LABS) [facility] TROPONIN I 2020-05-04 16:17:00 [facility] BASIC METABOLIC PANEL (7) 2020-05-04 16:17:00 [facility] HEPATIC FUNCTION PANEL 2020-05-04 16:17:00 [facility] PROTHROMBIN TIME/INR 2020-05-04 16:17:00 [facility] LIPID PANEL 2020-05-04 16:17:00 [facility] MAGNESIUM 2020-05-04 16:17:00 [facility] PHOSPHORUS 2020-05-04 16:17:00 [facility] CBC W/PLT COUNT & AUTO 2020-05-04 16:17:00 [facility] XR CHEST 1 VW PORTABLE 2020-05-02 18:18:18 Tirso Heller Congregational [place] POC GLUCOSE 2020-05-02 17:31:00 Mata Campos OR [place] < 1 HOUR 2020-05-02 17:00:12 Mata Campos AR AN ELECTIVE 2020-05-02 16:08:37 Chantal Gates Meth odist SUPRAGLOTTIC AIRWAY POC PANEL 2020-05-02 11:33:00 Mata Campos COMPREHENSIVE METABOLIC 2020-05-02 11:24:00 Mata Campos PANEL PROTHROMBIN TIME WITH INR 2020-05-02 11:24:00 Mata Campos PARTIAL THROMBOPLASTIN 2020-05-02 11:24:00 Mata Campos TIME (PTT) ESTIMATED GFR 2020-05-02 11:24:00 Mata Campos COVID-19 QUALITATIVE PCR 2020-04-27 14:30:00 Rich Dyer HC COMPLETE BLD COUNT 2020-04-27 14:13:00 Mata Campos W/AUTO DIFF TYPE AND SCREEN 2020-04-27 14:13:00 Mata Campos HEMOGLOBIN A1C 2020-04-27 14:13:00 Donovan Dyer POC GLUCOSE 2020-04-04 13:42:00 Jannette Landin Meth odist CV FISTULOGRAM 2020-04-04 13:26:00 Jannette Landin Meth odist OR [place] < 1 HOUR 2020-04-04 13:15:00 Jannette Landin odist AR AN ELECTIVE 2020-04-04 12:29:51 Lauren Fung thodist SUPRAGLOTTIC AIRWAY BASIC METABOLIC PANEL 2020-04-04 10:26:00 Jannette Landin ESTIMATED GFR 2020-04-04 10:26:00 Jannette Landin odist POC PANEL 4 2020-04-04 10:26:00 Jannette Landin Meth odist XR CHEST 2 VW 2020-04-01 15:22:00 Jannette Landin odist COVID-19 QUALITATIVE PCR 2020-04-01 14:12:00 Jannette Landin amari Congregational HC COMPLETE BLD COUNT 2020-04-01 14:12:00 Jannette Landin Yolis rosales Congregational W/AUTO DIFF TYPE AND SCREEN 2020-04-01 14:12:00 ManishaDonovan odist Dorian Martinez ECG PRE/POST OP 2020-04-01 13:42:56 Jannette Landin Meth odist POC GLUCOSE 2020-03-25 17:07:00 Jose FranciscoLuci Donovan Me thodist POC GLUCOSE 2020-03-25 08:51:00 Miko Feltonmitchell Barrazajuly Man Me thodist CT UPPER EXTREMITY W 2020-03-24 22:00:46 Homa Nolascoist CONTRAST LEFT POC GLUCOSE 2020-03-24 20:48:00 Miko Feltonmitchell Barrazajuly Man Me thodist XR CHEST 1 VW PORTABLE 2020-03-24 19:06:13 Homa Nolasco on Congregational POC GLUCOSE 2020-03-24 17:11:00 Miko Feltonmitchell Barrazajuly Man Me thodist POC GLUCOSE 2020-03-24 14:05:00 Miko Feltonmitchell Barrazajuly Man Me thodist HC COMPLETE BLD COUNT 2020-03-24 12:35:00 Fior Chaudhary W/AUTO DIFF PROTHROMBIN TIME WITH INR 2020-03-24 12:35:00 Fior Chaudhary PARTIAL THROMBOPLASTIN 2020-03-24 12:35:00 Fior Chaudhary Congregational TIME (PTT) BASIC METABOLIC PANEL 2020-03-24 12:35:00 Fior Chaudhary ESTIMATED GFR 2020-03-24 12:35:00 Fior Chaudhary Meth odmagda HEPATITIS B SURFACE 2020-03-24 10:00:00 Alexandra Grossman ANTIGEN LACTIC ACID LEVEL, SEPSIS 2020-03-24 00:10:00 Ty, Yvette Tray usmaxim Congregational - NOW AND REPEAT 2X EVERY [place] 3 HOURS HEMODIALYSIS 2020-03-24 00:07:39 Alexandra Grossman Donovan Met hodist LACTIC ACID LEVEL, SEPSIS 2020-03-23 21:00:00 Ty, Yvette Feliz maxim Congregational - NOW AND REPEAT 2X EVERY [place] 3 HOURS COVID-19 QUALITATIVE PCR 2020-03-23 20:30:00 Ty, Yvette fitzpatrick Congregational [place] BLOOD CULTURE, AEROBIC & 2020-03-23 17:13:00 Ty, Yvette fitzpatrick Congregational ANAEROBIC [place] COMPREHENSIVE METABOLIC 2020-03-23 17:13:00 Ty, Yvette pan Congregational PANEL Carina HC COMPLETE BLD COUNT 2020-03-23 17:13:00 Ty, Yvette Lagos n Congregational W/AUTO DIFF [place] LACTIC ACID LEVEL, SEPSIS 2020-03-23 17:13:00 Ty, Yvette ware Congregational - NOW AND REPEAT 2X EVERY [place] 3 HOURS ESTIMATED GFR 2020-03-23 17:13:00 Ty, Yvette Man Meth odist [place] US DUPLEX VENOUS UPPER 2020-03-23 17:00:34 TyYvette on Congregational EXTREMITY LEFT [place] MRI UPPER EXTREMITY WO 2020-03-18 14:36:21 Lambert Rosenbaum Congregational CONTRAST LEFT POC GLUCOSE 2020-02-05 16:08:00 Luci Felton Me thodist POC GLUCOSE 2020-02-05 08:12:00 Luci Felton Me thodist POC GLUCOSE 2020-02-04 21:13:00 Luci Felton Me thodist HEPATITIS B SURFACE 2020-02-04 18:15:00 Homa Nolasco Congregational ANTIGEN HEPATITIS B SURFACE AB, 2020-02-04 18:15:00 Homa Nolasco Congregational QUANTITATIVE POC GLUCOSE 2020-02-04 16:55:00 Luci Felton Me thodist HEMODIALYSIS 2020-02-04 15:35:26 Homa Nolasco Meth odist POC GLUCOSE 2020-02-04 13:06:00 Mata Campos AR AN ELECTIVE 2020-02-04 12:05:06 Wiseman Norikatie carr SUPRAGLOTTIC AIRWAY ECG 12-LEAD 2020-02-04 11:29:24 Donovan Dyer POC GLUCOSE 2020-02-04 10:56:00 Mata Campos POC PANEL 4 2020-02-04 10:54:00 Mata Campos BASIC METABOLIC PANEL 2020-02-04 10:50:00 Yolis Dyer ESTIMATED GFR 2020-02-04 10:50:00 Donovan Dyer XR CHEST 2 VW 2020-01-27 14:32:08 Donovan Dyer PARTIAL THROMBOPLASTIN 2020-01-27 14:04:00 Mata Campos TIME (PTT) PROTHROMBIN TIME WITH INR 2020-01-27 14:04:00 Mata Campos HC COMPLETE BLD COUNT 2020-01-27 14:04:00 Mata Campos W/AUTO DIFF TYPE AND SCREEN 2020-01-27 14:04:00 Katty Lentz Met rima HEMOGLOBIN A1C 2020-01-27 14:04:00 Katty Lentz Met rima COVID-19 QUALITATIVE PCR 2020-01-27 14:00:00 Mata Campos POC GLUCOSE 2019-10-20 13:26:00 Luci Felton Me thodist HEPATITIS B SURFACE 2019-10-20 09:15:00 Homa Nolasco ANTIGEN HEPATITIS B SURFACE AB, 2019-10-20 09:15:00 Homa Nolasco QUANTITATIVE POC GLUCOSE 2019-10-20 07:46:00 Luci Felton Me thodist XR CHEST 1 VW PORTABLE 2019-10-20 06:18:18 Maksim Coffman Ann HEMODIALYSIS 2019-10-19 21:37:58 Homa Nolasco odist POC GLUCOSE 2019-10-19 20:28:00 Jose Francisco, Mikomitchell Pateledelmira Man Me thodist POC GLUCOSE 2019-10-19 15:49:00 Jose FranciscoLuci yañez Leonor Man Me thodist AR AN ELECTIVE 2019-10-19 13:53:21 Kelly Zuñiga SUPRAGLOTTIC AIRWAY POC PANEL 4 2019-10-19 10:00:00 Mata Campos BASIC METABOLIC PANEL 2019-10-19 09:05:00 Mata Campos ESTIMATED GFR 2019-10-19 09:05:00 Mata Campos ECG PRE/POST OP 2019-10-16 13:48:14 Donovan Dyer HC COMPLETE BLD COUNT 2019-10-16 13:15:00 Mata Campos W/AUTO DIFF TYPE AND SCREEN 2019-10-16 13:15:00 Mata Campos PARTIAL THROMBOPLASTIN 2019-10-16 13:15:00 Mata Campos TIME (PTT) PROTHROMBIN TIME WITH INR 2019-10-16 13:15:00 Mata Campos HEMOGLOBIN A1C 2019-10-16 13:15:00 Donovan Dyer POC GLUCOSE 2019-08-24 12:49:00 Mata Campos OR [place] < 1 HOUR 2019-08-24 12:23:25 Mata Campos AR AN ELECTIVE 2019-08-24 10:14:46 Virgen Back SUPRAGLOTTIC AIRWAY Yareli XR CHEST 1 VW PORTABLE 2019-08-24 09:41:24 Josue Dyer POC PANEL 4 2019-08-24 09:32:00 Andres Jcsangeeta BetancourtIsauro Man [facility] ECG 12-LEAD 2019-08-24 09:25:35 Donovan Dyer Plan of Care Planned Activity Planned Date Details Comments Source Future Scheduled 2023-05-[address] [facility]00 (procedure) [code = [facility] Center [id number]] Future Scheduled 2020-05-[address] [facility] - Test 00:00:00 (#1) [code = Medical Center INFLUENZA VACCINE (#1)] Future Scheduled 2020-04-23 INFLUENZA VACCINE [facility] 00:00:00 [code = INFLUENZA VACCINE] Future Scheduled 2016-12-[address] [facility] 00:00:00 WELLNESS (YEAR 2 or Medical Center FIRST YEAR if no IPPE) [code = MEDICARE ANNUAL WELLNESS (YEAR 2 or FIRST YEAR if no IPPE)] Future Scheduled 1998 DIABETES: RETINAL [place] [facility] 00:00:00 EYE EXAM [code = DIABETES: RETINAL EYE EXAM] Future Scheduled 1998 DIABETIC FOOT EXAM [place] [facility] 00:00:00 [code = DIABETIC FOOT EXAM] Encounters Start End Encounter Admission Attending Care Care Encounter Source Date/Time Date/Time Type Type Clinicians Facility Department ID 2019-01-07 Inpatient [facility] [address] [facility] 11:16:20 2020-07-06 2020-07-06 [place]patient [place] [id number] [place] 00:00:00 00:00:00 MATA [address] 2020-07-04 2020-07-04 Outpatient ANDRES, [facility] [id number] [place] 00:00:00 00:00:00 MATA [address] 2020-06-22 2020-06-22 Outpatient [facility] [id number] [place] 00:00:00 00:00:00 LAMBERT [address] 2020-06-01 2020-06-01 Inpatient E [facility] MED 7510 15:33:00 13:44:00 [facility] 2020-05-25 2020-05-25 Outpatient ROSENBAUM, [facility] [id number] [place] 00:00:00 00:00:00 VINCENT [address] 2020-05-03 2020-05-03 Outpatient ROSENBAUM, [facility] [id number] [place] 00:00:00 00:00:00 VINCENT [address] 2020-05-02 2020-05-02 Outpatient ANDRES, [facility] 021 [id number] [place] 00:00:00 00:00:00 IMRAN [address] 2020-04-27 2020-04-27 Outpatient ANDRES, [facility] [id number] [place] 00:00:00 00:00:00 IMRAN [address] 2020-04-04 2020-04-04 Outpatient KATE, [facility] 021 [id number] [place] 00:00:00 00:00:00 UTTAM [address] 2020-04-01 2020-04-01 Outpatient KATE, [facility] [id number] [place] 00:00:00 00:00:00 UTTAM [address] 2020-04-01 2020-04-01 Outpatient KATE, [facility] [id number] [place] 00:00:00 00:00:00 UTTAM [address] 2020-03-23 2020-03-25 Inpatient LUCI FELTON [facility] 064 [id number] [place] 00:00:00 00:00:[address] 2020-03-23 2020-03-23 Outpatient ROSENBAUM, [facility] [id number] [place] 00:00:00 00:00:00 VINCENT [address] 2020-03-18 2020-03-18 Outpatient ROSENBAUM, [facility] [id number] [place] 00:00:00 00:00:00 VINCENT [address] 2020-03-11 2020-03-11 Outpatient ROSENBAUM, [facility] [id number] [place] 00:00:00 00:00:00 VINCENT [address] 2020-02-04 2020-02-05 Outpatient LUCI FELTON [facility] 021 [id number] [place] 00:00:00 00:00:[address] 2020-01-27 2020-01-27 Outpatient ANDRES, [facility] [id number] [place] 00:00:00 00:00:00 IMRAN [address] 2020-01-27 2020-01-27 Outpatient WOJCIECHOWS [facility] [id number] [place] 00:00:00 00:00:00 KI, Norbert Method i DORIAN 2019-10-19 2019-10-20 Outpatient LUCI FELTON [facility] [id number] [place] 00:00:00 00:00:00 730 Method i 2019-08-24 2019-08-24 Outpatient ANDRES [facility] 021 [id number] [place] 00:00:00 00:00:00 IMRAN 691 Method i 2019-07-24 2019-07-24 Outpatient MHSE MHSE 7508 MH 10:54:00 10:54:[facility] 2019-07-08 2019-07-08 Outpatient MHSE MHSE [id number] MH 12:34:00 12:34:00 [facility] 2019-03-20 2019-03-20 Outpatient MHSE MHSE 7507 MH 16:06:00 16:06:00 [facility] 2019-03-20 2019-03-20 Outpatient MHSE MHSE 7504 MH 12:22:00 12:22:[address] [facility] 2019-02-27 2019-02-27 Outpatient MHSE MHSE 7506 MH 11:11:00 11:11:00 [facility] 2019-01-21 2019-01-21 Outpatient MHSE MHSE 7505 MH 09:45:00 09:45:00 [facility] 2018-01-28 2018-01-28 Outpatient EDUARDO OLGUIN [facility] [id number] [facility] 07:49:00 23:59:00 Medica l Center Results Test Description Test Time Test Comments Results Result Comments Source POC panel 2020-07-07 10:30:25 Test Item Value Reference Range Interpretation Comme nts POC sodium (test code = 2947-0) 135 mmol/L 135-148 POC potassium (test code = 4.6 mmol/L 3.5-5 6298-4) POC glucose (test code = 2339-0) 104 mg/dL 65-99 H Sales Team Leader Name: Jorgito SagastumeUriel ID : [id number] POC hemoglobin (test code = 14.6 g/dL 718-7) POC hematocrit (test code = 43 % 41-51 4544-3) Lab Interpretation (test code = Abnormal 56636-2) [facility] yaiogah2221-02-69 16:12:22 Test Item Value Reference Range Interpretation Comments POC glucose (test 98 mg/dL 65-99 Sales Team Leader N alonzo: Kathleen code = 10072-0) Lulu ID: [id number] [place] JayjvzwtrCdgaft1284-95-87 14:20:32LaMarisol manuel 07/06/2020 2:55 PMAirway Date/Time: 07/06/2020 2:20 PMPerformed by: Marisol ToledooAuthorized by: Mike Og MD Location: ORUrgency: ElectiveDifficult Airway: No Anesthesiologist: Mike Og MDResident/SPORTS TRAINER/AA: Rodrigo ToledoaPerformed by: resident/SPORTS TRAINER/AAPreoxygenated with 100% O2: Yes C-spine Precautions Maintained Throughout: Yes Mask Ventilation: Not attemptedFinal Airway Type: Supraglottic airwayFinal LMA: I-GelLMA Size: 5Number of Attempts at Approach: 1 Preoxygenation times five minutes on 100% FiO2. Smooth IV induction. Eyes taped after loss of eyelash reflex. Size 5 iGEL placed atraumatically. Positive chest rise and positive EtCO2 with adequate seal. No leak noted at 20 cmH2O. Ventilation adequate. No damage to oropharynx. VSS.Marine MethodistPartial thromboplastin time, [id number] 13:12:59 Test Item Value Reference Range Interpretation Comments PTT (test code = 71.3 23.0- 36.0 sec H PTT thera peutic range 3173-2) for unfractiona geronimo heparin is61.0- 112.0 seconds which corresponds to Anti-Xa0.3-0.7 U/ml. Lab Interpretation Abnormal (test code = 17825-7) [facility] [id number] 13:00:56 Test Item Value Reference Range Interpretation Comments Sodium (test code = 2951-2) 131 135- 148 mEq/L L Potassium (test code = 2823-3) 4.7 3.5- 5.0 mEq/L Chloride (test code = 2075-0) 97 98- 112 mEq/L L CO2 (test code = 2027-9) 24 24- 31 mEq/L Anion gap (test code = 51212-4) 10@ANIO 7- 15 mEq/L BUN (test code = 3094-0) 30 mg/dL 6-20 H Creatinine (test code = 2160-0) 10.23 mg/dL 0.7-1.2 H Glucose (test code = 2345-7) 109 mg/dL 65-99 H Calcium (test code = 27357-6) 11.1 mg/dL 8.3-10.2 H Lab Interpretation (test code = Abnormal 73482-2) Donovan MethodistEstimated [id number] 13:00:56 Test Item Value Reference Range Interpretation Comments Estimated GFR (test 7 mL/min/1.73 m2 Katie seaman Units code = 5488) InterpretationG 1 >=90 Mee l or highG2 60-89 Mildly decrease dG3a 45-59 Mil dly to moderately decr mmlbeT4b 30-44 Moderately to s everely decreasedG4 15-29 Severe ly decreasedG5 <15 Kidney miko lureThe eGFR was calcul ated using the Chron Kidney Disease Epidemiology Collaboration ( CKD-EPI) equation. Interpretation is based on recommendati ons of the National Ki dney Foundation-Kidn ey Disease Outcome s Quality Initiat lizz (NKF-KDOQI) pub lished in 2013. Lab Interpretation Abnormal (test code = 75148-4) Donovan JamesistProthrombin time with [id number] 12:35:56 Test Item Value Reference Range Interpretation Comments Prothrombin time (test 14.7 11.5- 14.5 sec H code = 5902-2) INR (test code = 1.2 The Interna tional 81386-0) Normalized Rati o (INR) is a therapeuti c monitoring tool for patients who ar e stable on oral anticoagulant t herapy. An INR of 2.0-3 .0 is suggested for d eep vein thrombosis/pulm onary embolism. Lab Interpretation Abnormal (test code = 56056-2) Donovan JamesistCOVID-19 qualitative [id number] 22:21:15 Test Item Value Reference Range Interpretation Comments Interpretation (test Negative results do code = 2456974) not preclude 2019-nCoV infection and should not be used as the sole basis for treatment or other patient management decisions. Negative results must be combined with clinical observations, patient history, and epidemiological information. COVID-19 qualitative Not-Detected Not-Detected PCR result (test code = 97202-9) COVID-19 qualitative See link below for C ase Number: PCR (test code = PDF Lab Report [id number]) Donovan MethodistType and vjfwxm0544-97-01 17:18:00 Test Item Value Reference Range Interpretation Comments ABO grouping (test code = 883-9) O Rh type (test code = 70055-9) POS Antibody screen (gel) (test code = NEG 890-4) [facility] MethodistHemoglobin [id number] 15:25:16 Test Item Value Reference Range Interpretation Comments Hemoglobin A1C (test 6.7 % 4-5.6 H HbA1c c utoffs for code = 24425-9) diagnosing diabetes:4.0% - 5.6% = normal5.7% - 6.4% = increased risk for diabetes (prediabetes)9> =6.5% = jdvqpvhd9Pqvv s for glycemic contro l (ADA 2016)< 7.0% Ta rget for non adults with nivia betes. More or less stringent targe ts may be appropriate for individual eleanor ents. <7.5% Target for Children and adolescents wit h type 1 diabetes. Lab Interpretation (test Abnormal code = 53272-2) Man MethodistCBC with platelet and aevowyumvihu2598-67-37 14:51:35 Test Item Value Reference Range Interpretation Comments WBC (test code = 37149-2) 10.2 4.5- 11.0 k/uL RBC (test code = 15361-7) 4.29 m/uL 4.4-6 L HGB (test code = 718-7) 12.1 g/dL 14-18 L HCT (test code = 4544-3) 40.0 % 41-51 L MCV (test code = 787-2) 93.2 fL 82-100 MCH (test code = 785-6) 28.2 pg 27-34 MCHC (test code = 786-4) 30.3 g/dL 31-37 L RDW - SD (test code = 86898-9) 56.7 fL 37-55 H MPV (test code = 65343-8) 11.3 fL 6.9-11 H Platelet count (test code = 259 K/uL 150-400 78294-0) Nucleated RBC (test code = 76858-6) 0.00 /100 WBC Neutrophils (test code = 23145-3) 75.1 % 39-69 H Lymphocytes (test code = 07385-3) 15.1 % 25-45 L Monocytes (test code = 90706-1) 7.0 % 0-10 Eosinophils (test code = 40175-4) 2.3 % 0-5 Basophils (test code = 38386-7) 0.3 % 0-1 Immature granulocytes (test code = 0.2 % 0-1 96806-0) Lab Interpretation (test code = Abnormal 90680-8) Donovan Alvarado Pre/Post [id number] 14:47:56 Test Item Value Reference Range Interpretation Comments Ventricular rate (test 104 code = 253) Atrial rate (test code 104 = 255) AR interval (test code 180 = 266) QRSD interval (test 84 code = 260) QT interval (test code 356 = 264) QTC interval (test code 468 = 265) P axis 1 (test code = 65 267) QRS axis 1 (test code = 98 268) T wave axis (test code 37 = 270) EKG impression (test Sinus code = 273) tachycardia-Possible Left atrial enlargement-Anterolate ral infarct (cited on or before 24-AUG-2019)-Abnormal ECG-In automated comparison with ECG of 01-APR-2020 13:42,-Questionable change in initial forces of Lateral leads- Donovan VillavicencioUfbayhhtmVlymzvcku9476-84-70 11:09:00 Test Item Value Reference Range Interpretation Comments Potassium (test code = 5.4 meq/L 3.6-5.5 Speci men 2823-3) slightly hemolyzed JOHN (test code = JOHN) Sales Team Leader ID - ADMIN Lab Interpretation Normal (test code = 05998-8) [facility]2020[facility] 11:09:00 Test Item Value Reference Range Interpretation Comments POTASSIUM (BEAKER) 5.4 meq/L 3.6-5.5 Specimen slightly (test code = 379) hemolyzed Sales Team Leader ID - ADMINPOC-Glucose [id number] 10:48:00 Test Item Value Reference Range Interpretation Comments POC-Glucose Meter (test 93 mg/dL 70-110 : TE STED AT [facility] code = 1538) [address], [place] [place] [address]: Sales Team Leader/Techni oscar ID = [id number] for Melani Yañez cca Lab Interpretation (test Normal code = 96702-8) [facility] CenterPO[facility]SE [id number] 10:48:00 Test Item Value Reference Range Interpretation Comments POC-GLUCOSE METER 93 mg/dL 70-110 : TESTED A T [facility] [address] (BEAKER) (test code = [address], [address]) [facility] [place] [address]: Sales Team Leader/Techni oscar ID = [id number] for Fatou Walden VRY-[id number] 00:00:00Ordered by an unspecified provider.[facility]ARS[facility] (Asymptomatic ONLY)2020-06-25 00:02:00 Test Item Value Reference Range Interpretation Comments SARS-COV2/RT-PCR Negative Not Detected, (test code = Negative, See 61178-4) external report for linked test SARS-COV-2 [facility] PERFORMING LAB (test code = 17091-5) JOHN (test code = Negative result for this JOHN) test determines that SARS-CoV-2 RNA was not present in the [...] of the Act. Fact Sheet for Healthcare Providers:https://www.[employer]/sites/default/f ernestine/product/documents/F act_Sheet_HC_Providers_L xov_MYCC-CgY-1.pdf Fact Sheet for Healthcare Patients:https://www.[employer]/sites/default/fi les/product/documents/Fa ct_Sheet_Patients_Lyra_S ARS-CoV-2.pdf Performing Laboratory:[facility] [place] [address] [facility] HospitalARS-[facility]OV2/[facility]-PCR ([facility])2020-06-25 00:02:00 Test Item Value Reference Range Interpretation Comments SARS-COV2/RT-PCR (test Negative Not Detected, Negative, code = 1546064) See external report for linked test SARS-COV-2 PERFORMING LAB [facility] (test code = 7759653) Negative result for this test determines that SARS-CoV-2 RNA was not present in the specimen above the Limit of Detection (LOD). However, Negative results do not preclude SARS-CoV-2 infection and should not be used as the sole basis for treatment or patient management decisions. Negative results mustbe combined with clinical observations, patient history, and epidemiological information. A false negative result may occur if a specimen is improperly collected, transported or handled. A false negative result should be considered if patient's recent exposures or clinical presentation indicate that COVID-19 (SARS-CoV-2) is likely and diagnostic tests for other causes of illness are negative. Re-testing should be considered in cases of suspected false negatives.The limit of detection for this assay is 800 copies/mL.This SARS CoV-2 test is a real-time RT-PCR test intended for the qualitative detection of nucleic acid from SARS-CoV-2 in a nasopharyngeal swab specimen collected from individuals susp ected of COVID-19 by their healthcare provider.This test has not been Food and Drug [...] is revoked under Section 564(g) of the Act.Fact Sheet for Healthcare Providers:https://www.[employer]/sites/default/files/product/documents/Fact_Shee i_WQ_Nyhadteyj_Apvq_HYSG-CcK-6.pdfFact Sheet for Healthcare Patients:https://www.[employer]/sites/default/files/product/ documents/Afmw_Gvdzf_Udeqnvix_Uvjm_ITFY-UtN-1.pdfPerforming Laboratory:[address] [facility], [place] [address]YUH with platelet count + automated [id number] 14:04:00 Test Item Value Reference Range Interpretation Comments WBC (test code = 6690-2) 5.6 4.0- 10.0 K/L RBC (test code = 789-8) 4.30 4.20- 5.80 M/L MCHC (test code = 786-4) 29.7 32.0- 36.0 GM/DL L Hematocrit (test code = 40.1 % 36-50 4544-3) MCV (test code = 787-2) 93.3 fL 82-99 MCH (test code = 785-6) 27.7 pg 27-33 RDW (test code = 788-0) 16.6 % 12-15 H Platelets (test code = 145 150- 430 K/CU MM L 777-3) MPV (test code = 95655-9) 9.3 fL 6-11.5 nRBC (test code = 413) 0 0- 0 /100 WBC % Neutros (test code = 69 % 429) % Lymphs (test code = 18 % 430) % Monos (test code = 431) 9 % % Eos (test code = 432) 2 % % Baso (test code = 437) 0 % # Neutros (test code = 3.86 1.80- 8.00 K/L 670) # Lymphs (test code = 1.02 1.48- 4.50 K/L L 414) # Monos (test code = 415) 0.52 0.00- 1.30 K/L # Eos (test code = 416) 0.13 0.00- 0.50 K/L # Baso (test code = 417) 0.02 0.00- 0.20 K/L Immature 0 % 0-0 Granulocytes-Relative (test code = 2801) JOHN (test code = JOHN) Few Platelet clumps noted, count appears to be normal. Lab Interpretation (test Abnormal code = 44770-1) [facility] W/PLT COUNT & AUTO [id number] 14:04:00 Test Item Value Reference Range Interpretation Comments WHITE BLOOD CELL COUNT (BEAKER) 5.6 K/ L 4.0-10.0 (test code = 775) RED BLOOD CELL COUNT (BEAKER) 4.30 M/ L 4.20-5.80 (test code = 761) HEMOGLOBIN (BEAKER) (test code = 11.9 GM/DL 13.0-16.8 L 410) HEMATOCRIT (BEAKER) (test code = 40.1 % 36.0-50.0 411) MEAN CORPUSCULAR VOLUME (BEAKER) 93.3 fL 82.0-99.0 (test code = 753) MEAN CORPUSCULAR HEMOGLOBIN 27.7 pg 27.0-33.0 (BEAKER) (test code = 751) MEAN CORPUSCULAR HEMOGLOBIN CONC 29.7 GM/DL 32.0-36.0 L (BEAKER) (test code = 752) RED CELL DISTRIBUTION WIDTH 16.6 % 12.0-15.0 H (BEAKER) (test code = 412) PLATELET COUNT (BEAKER) (test 145 K/CU MM 150-430 L code = 756) MEAN PLATELET VOLUME (BEAKER) 9.3 fL 6.0-11.5 (test code = 754) NUCLEATED RED BLOOD CELLS 0 /100 WBC 0-0 (BEAKER) (test code = 413) NEUTROPHILS RELATIVE PERCENT 69 % (BEAKER) (test code = 429) LYMPHOCYTES RELATIVE PERCENT 18 % (BEAKER) (test code = 430) MONOCYTES RELATIVE PERCENT 9 % (BEAKER) (test code = 431) EOSINOPHILS RELATIVE PERCENT 2 % (BEAKER) (test code = 432) BASOPHILS RELATIVE PERCENT 0 % (BEAKER) (test code = 437) NEUTROPHILS ABSOLUTE COUNT 3.86 K/ L 1.80-8.00 (BEAKER) (test code = 670) LYMPHOCYTES ABSOLUTE COUNT 1.02 K/ L 1.48-4.50 L (BEAKER) (test code = 414) MONOCYTES ABSOLUTE COUNT (BEAKER) 0.52 K/ L 0.00-1.30 (test code = 415) EOSINOPHILS ABSOLUTE COUNT 0.13 K/ L 0.00-0.50 (BEAKER) (test code = 416) BASOPHILS ABSOLUTE COUNT (BEAKER) 0.02 K/ L 0.00-0.20 (test code = 417) IMMATURE GRANULOCYTES-RELATIVE 0 % 0-0 PERCENT (BEAKER) (test code = 2801) Few Platelet clumps noted, count appears to be normal.Type and screen, automated 2020-06-24 13:48:00 Test Item Value Reference Range Interpretation Comments ABO/RH AUTOMATED (BEAKER) (test O POSITIVE ECHO code = 2260) Ab Scrn (test code = 890-4) NEGATIVE ECHO [facility] Metabolic [id number] 13:11:00 Test Item Value Reference Range Interpretation Comments Sodium (test code = 134 meq/L 135-148 L 2951-2) Potassium (test code = 4.3 meq/L 3.6-5.5 2823-3) Chloride (test code = 103 meq/L 98-106 5-0) CO2 (test code = 20 meq/L 20-29 2027-9) BUN (test code = 29 mg/dL 10-26 H 3094-0) Creatinine (test code 9.99 mg/dL 0.5-1.2 H = 2160-0) Glucose (test code = 135 mg/dL 70-110 H 2345-7) Calcium (test code = 11.1 mg/dL 8.5-10.5 H 47905-2) EGFR (test code = 7 mL/min/1.73 [place] [address]-2) NOT ACCURATE CREATININE CLEARANCE IN PREDICTING GLOMERULAR FILTRATION RATE . ESTIMATED GFR I S NOT APPLICABLE FOR DIALYSIS PATIENTS. JOHN (test code = JOHN) Sales Team Leader ID - ADMIN Lab Interpretation Abnormal (test code = 02333-2) [facility] METABOLIC [id number] 13:11:00 Test Item Value Reference Range Interpretation Comments SODIUM (BEAKER) 134 meq/L 135-148 L (test code = 381) POTASSIUM (BEAKER) 4.3 meq/L 3.6-5.5 (test code = 379) CHLORIDE (BEAKER) 103 meq/L 98-106 (test code = 382) CO2 (BEAKER) (test 20 meq/L 20-29 code = 355) BLOOD UREA NITROGEN 29 mg/dL 10-26 H (BEAKER) (test code = 354) CREATININE (BEAKER) 9.99 mg/dL 0.50-1.20 H (test code = 358) GLUCOSE RANDOM 135 mg/dL 70-110 H (BEAKER) (test code = 652) CALCIUM (BEAKER) 11.1 mg/dL 8.5-10.5 H (test code = 697) EGFR (BEAKER) (test 7 mL/min/1.73 ESTIMAT ED GFR IS code = 1092) sq m NOT ACCURATE CREATININE CLEARANCE IN PREDICTING GLOMERULAR FILTRATION RATE . ESTIMATED GFR I S NOT APPLICABLE FOR DIALYSIS PATIEN TS. Sales Team Leader ID - ADMINPT/[id number] 13:10:00 Test Item Value Reference Range Interpretation Comments Protime (test code = 12.4 9.3- 12.0 sec H 5902-2) INR (test code = 1.15 <=5.90 6301-6) PTT (test code = 27.7 23.0- 35.0 sec 70152-6) JOHN (test code = JOHN) RECOMMENDED COUMADIN/WARFARIN INR THERAPY RANGESSTANDARD DOSE: 2.0 - 3.0 Includes: PROPHYLAXIS for venous thrombosis, systemic embolization; TREATMENT for venous thrombosis and/or pulmonary embolus.HIGH RISK: Target INR is 2.5-3.5 for patients with mechanical heart valves.Final Information (Auto Output)Final Information (Auto Output)Final Information (Auto Output) Lab Interpretation Abnormal (test code = 24871-6) [facility][id number] 13:10:00 Test Item Value Reference Range Interpretation Comments PROTIME (BEAKER) (test code = 759) 12.4 sec 9.3-12.0 H INR (BEAKER) (test code = 370) 1.15 <=5.90 PARTIAL THROMBOPLASTIN TIME (BEAKER) 27.7 sec 23.0-35.0 (test code = 760) RECOMMENDED COUMADIN/WARFARIN INR THERAPY RANGESSTANDARD DOSE: 2.0 - 3.0 Includes: PROPHYLAXIS forvenous thrombosis, systemic embolization; TREATMENT for venous thrombosis and/or pulmonary embolus.HIGH RISK: Target INR is 2.5-3.5 for patients with mechanical heart valves.Final Information (Auto Output)Final Information (Auto Output)Final Information (Auto Output)OR FL < 1 Hour 2020-05-09 10:34:58Hm Interface, Radiology Results 05/09/2020 10:38 AM CDTEXAMINATION: OR FL < 1 HOURC-arm fluoroscopy was requested in OR. IMPRESSION:Intraoperative fluoroscopic images. Radiologist was not present during the examination.Separate operative report will be issued by the physician performing the procedure.[id number] MethodistPOCT-GLUCOSE METER 2020-05-06 11:43:00 Test Item Value Reference Range Interpretation Comments POC-GLUCOSE METER 159 mg/dL 70-110 H : TESTED A T [facility] [address] (BEAKER) (test code [address], = 1538) [facility] [address]: Sales Team Leader/Techni oscar ID = [id number] for Makayla Cardenas Hepatitis B surface [id number] 11:33:00 Test Item Value Reference Range Interpretation Comments Hep B S Ab (test code = 59.2 <8.0 mIU/mL H 75053-6) JOHN (test code = JOHN) Sales Team Leader ID - ASIYA C Lab Interpretation (test Abnormal code = 07974-5) [facility] SURFACE [id number] 11:33:00 Test Item Value Reference Range Interpretation Comments HEPATITIS B SURFACE ANTIBODY 59.2 mIU/mL <8.0 H (BEAKER) (test code = 647) Sales Team Leader ID - ASIYA CPOCT-GLUCOSE [id number] 04:50:00 Test Item Value Reference Range Interpretation Comments POC-GLUCOSE METER 140 mg/dL 70-110 H : TESTED A T [facility] (BEAKER) (test code [address], = 1538) [place] [address]: Sales Team Leader/Techni oscar ID = [id number] for Obvaibhav syl, Ifeyinwa POCT-GLUCOSE [id number] 22:25:00 Test Item Value Reference Range Interpretation Comments POC-GLUCOSE METER 117 mg/dL 70-110 H : TESTED A T [facility] (BEAKER) (test code [address], = 1538) [place] [address]: Sales Team Leader/Techni oscar ID = [id number] for Obvaibhav syl, Ifolindainjames Hepatitis B surface [id number] 21:34:00 Test Item Value Reference Range Interpretation Comments HBsAg Screen (test code Nonreactive Nonreactive = 5195-3) JOHN (test code = JOHN) Sales Team Leader ID - ERIKA Lab Interpretation (test Normal code = 18477-2) [facility] [id number] 21:34:00 Test Item Value Reference Range Interpretation Comments HEPATITIS B SURFACE ANTIGEN (2) Nonreactive Nonreactive (BEAKER) (test code = 2585) Sales Team Leader ID - ERIKAPOCT-GLUCOSE [id number] 18:50:00 Test Item Value Reference Range Interpretation Comments POC-GLUCOSE METER 107 mg/dL 70-110 : TESTED A T [facility] [address]17 (BEAKER) (test code [address], = 1538) [place] [address]: Sales Team Leader/Techni oscar ID = [id number] for Millie Ojeda POCT-GLUCOSE [id number] 17:31:00 Test Item Value Reference Range Interpretation Comments POC-GLUCOSE METER 64 mg/dL 70-110 L : TESTED A T [facility] [address] (BEAKER) (test code = [address], 1538) [place] [id number]: Sales Team Leader/Techni oscar ID = [id number] for Millie Ojeda SARS-COV2/RT-PCR ([facility])2020-05-05 16:35:00 Test Item Value Reference Range Interpretation Comments SARS-COV2/RT-PCR (test Negative Not Detected, Negative, code = 1961637) See external report for linked test SARS-COV-2 PERFORMING LAB [facility] (test code = 7892862) Negative result for this test determines that SARS-CoV-2 RNA was not present in the specimen above the Limit of Detection (LOD). However, Negative results do not preclude SARS-CoV-2 infection and should not be used as the sole basis for treatment or patient management decisions. Negative results mustbe combined with clinical observations, patient history, and epidemiological information. A false negative result may occur if a specimen is improperly collected, transported or handled. A false negative result should be considered if patient's recent exposures or clinical presentation indicate that COVID-19 (SARS-CoV-2) is likely and diagnostic tests for other causes of illness are negative. Re-testing should be considered in cases of suspected false negatives.The limit of detection for this assay is 800 copies/mL.This SARS CoV-2 test is a real-time RT-PCR test intended for the qualitative detection of nucleic acid from SARS-CoV-2 in a nasopharyngeal swab specimen collected from individuals susp ected of COVID-19 by their healthcare provider.This test has not been Food and Drug [...] is revoked under Section 564(g) of the Act.Fact Sheet for Healthcare Providers:https://www.[employer]/sites/default/files/product/documents/Fact_Shee i_YC_Bfygyszpb_Wltn_FDVE-HgO-2.pdfFact Sheet for Healthcare Patients:https://www.[employer]com/sites/default/files/product/ documents/Exxe_Tixgf_Cuxeyqzb_Izdi_VOYJ-SfT-6.pdfPerforming Laboratory:[facility], [place] [address]WAUJ-ZASHCHY METER 2020-05-05 13:07:00 Test Item Value Reference Range Interpretation Comments POC-GLUCOSE METER 116 mg/dL 70-110 H : TESTED A T [facility] [address] (BEAKER) (test code [address], = 1538) [place] [address]: Sales Team Leader/Techni oscar ID = [id number] for Eloisa Ojedainor POCT-GLUCOSE [id number] 12:24:00 Test Item Value Reference Range Interpretation Comments POC-GLUCOSE METER 55 mg/dL 70-110 L : TESTED A T [facility] [address] (BEAKER) (test code = [address], 1538) [place] [address]: Sales Team Leader/Techni oscar ID = [id number] for Eloisa Ojedainor POCT-GLUCOSE [id number] 11:38:00 Test Item Value Reference Range Interpretation Comments POC-GLUCOSE METER 51 mg/dL 70-110 L : TESTED A T [facility] [address] (BEAKER) (test code = [address], 1538) [place] [address]: Sales Team Leader/Techni oscar ID = [id number] for Millie Ojeda Comprehensive metabolic [id number] 06:51:00 Test Item Value Reference Range Interpretation Comments Protein, Total (test 7.6 6.0- 8.5 gm/dL code = 2885-2) Albumin (test code = 3.7 g/dL 3.5-5 17377-5) Alkaline Phosphatase 222 U/L 30-115 H (test code = 6768-6) Total Bilirubin (test 0.6 mg/dL 0.1-1.2 code = 1975-2) Sodium (test code = 134 meq/L 135-148 L 2951-2) Potassium (test code = 5.4 meq/L 3.6-5.5 2823-3) Chloride (test code = 97 meq/L 98-106 L 2075-0) CO2 (test code = 22 meq/L 20-29 8-9) BUN (test code = 83 mg/dL 10-26 H 3094-0) Creatinine (test code 16.03 mg/dL 0.5-1.2 H = 2160-0) Glucose (test code = 124 mg/dL 70-110 H 2345-7) Calcium (test code = 9.8 mg/dL 8.5-10.5 95180-0) AST (test code = 75 U/L 5-40 H 1920-8) ALT (test code = 31 U/L 5-50 1742-6) EGFR (test code = 4 mL/min/1.73 [place] [address]-3) NOT ACCURATE CREATININE CLEARANCE IN PREDICTING GLOMERULAR FILTRATION RATE . ESTIMATED GFR I S NOT APPLICABLE FOR DIALYSIS PATIENTS. JOHN (test code = JOHN) Sales Team Leader ID - [id number] Lab Interpretation Abnormal (test code = 84755-0) [facility] [id number] 06:51:00 Test Item Value Reference Range Interpretation Comments TOTAL PROTEIN 7.6 gm/dL 6.0-8.5 (BEAKER) (test code = 770) ALBUMIN (BEAKER) 3.7 g/dL 3.5-5.0 (test code = 1145) ALKALINE PHOSPHATASE 222 U/L 30-115 H (BEAKER) (test code = 346) BILIRUBIN TOTAL 0.6 mg/dL 0.1-1.2 (BEAKER) (test code = 377) SODIUM (BEAKER) (test 134 meq/L 135-148 L code = 381) POTASSIUM (BEAKER) 5.4 meq/L 3.6-5.5 (test code = 379) CHLORIDE (BEAKER) 97 meq/L 98-106 L (test code = 382) CO2 (BEAKER) (test 22 meq/L 20-29 code = 355) BLOOD UREA NITROGEN 83 mg/dL 10-26 H (BEAKER) (test code = 354) CREATININE (BEAKER) 16.03 mg/dL 0.50-1.20 H (test code = 358) GLUCOSE RANDOM 124 mg/dL 70-110 H (BEAKER) (test code = 652) CALCIUM (BEAKER) 9.8 mg/dL 8.5-10.5 (test code = 697) AST (SGOT) (BEAKER) 75 U/L 5-40 H (test code = 353) ALT (SGPT) (BEAKER) 31 U/L 5-50 (test code = 347) EGFR (BEAKER) (test 4 mL/min/1.73 ESTIMAT ED GFR IS code = 1092) sq m NOT ACCURATE CREATININE CLEARANCE IN PREDICTING GLOMERULAR FILTRATION RATE . ESTIMATED GFR I S NOT APPLICABLE FOR DIALYSIS PATIEN TS. Sales Team Leader ID - [id number] [id number] 06:23:00 Test Item Value Reference Range Interpretation Comments POC-GLUCOSE METER 104 mg/dL 70-110 : TESTED A T [facility] [address] (BEAKER) (test code [address], = 1538) [place] [address]: Sales Team Leader/Techni oscar ID = [id number] for Nael Hughes ph POCT-GLUCOSE [id number] 21:00:00 Test Item Value Reference Range Interpretation Comments POC-GLUCOSE METER 176 mg/dL 70-110 H : TESTED A T [facility] [address] (BEAKER) (test code [address], = 1538) [place] [address]: Sales Team Leader/Techni oscar ID = [id number] for Nael Hughes ph Troponin [id number] 17:22:00 Test Item Value Reference Range Interpretation Comments Troponin I (test code = 0.05 ng/mL 0-0.15 63699-0) JOHN (test code = JOHN) Troponin I (TnI) levels must be interpreted in the context of the presenting symptoms and the clinical findings. Elevated TnI levels indicate myocardial damage, but are not specific for ischemic heart disease. Elevated TnI levels are seen in patients with other cardiac conditions (including myocarditis and congestive heart failure), and slight TnI elevations occur in patients with other conditions, including sepsis, renal failure, acidosis, acute neurological disease, and persistent tachyarrhythmia.Opera tor ID - AGONZARADHAZ Lab Interpretation (test Normal code = 11385-5) [facility] CenterTROPONIN [id number] 17:22:00 Test Item Value Reference Range Interpretation Comments TROPONIN I (BEAKER) (test code = 0.05 ng/mL 0.00-0.15 397) Troponin I (TnI) levels must be interpreted in the context of the presenting symptoms and the clinical findings. Elevated TnI levels indicate myocardial damage, but are not specific for ischemic heart disease. Elevated TnI levels are seen in patients with other cardiac conditions (including myocarditis and congestive heart failure), and slight TnI elevations occur in patients with other conditions, including sepsis, renal failure, acidosis, acute neurological disease, and persistent tachyarrhythmia.Sales Team Leader ID - ALENARADHAZLipid panel 2020-05-04 17:17:00 Test Item Value Reference Range Interpretation Comments Triglycerides (test 76 mg/dL code = 2571-8) Cholesterol (test 79 mg/dL code = 2093-3) HDL (test code = 38 mg/dL 2085-9) LDL Calculated (test 26 mg/dL code = 34420-6) JOHN (test code = JOHN) Triglyceride Reference Range: Low Risk <150 Borderline 150-199 High Risk 200-499 Very High Risk >=500 Cholesterol Reference Range: Low Risk <200 Borderline 200-239 High Risk >240 HDL Cholesterol Reference Range: Low Risk >=60 High Risk <40 LDL Cholesterol Reference Range: Optimal <100 Near Optimal 100-129 Borderline 130-159 High 160-189 Very High >=190 Sales Team Leader ID - ALENALEZOperator ID - MIGUELZOdelaneyator ID - HOLDENMALLORYRO [facility] CenterHepatic function [id number] 17:17:00 Test Item Value Reference Range Interpretation Comments Protein, Total (test code 9.4 6.0- 8.5 gm/dL H = 2885-2) Albumin (test code = 4.6 g/dL 3.5-5 95168-2) Total Bilirubin (test 0.7 mg/dL 0.1-1.2 code = 1975-2) Bilirubin, Direct (test 0.4 mg/dL 0-0.4 code = 1968-7) Alkaline Phosphatase 235 U/L 30-115 H (test code = 6768-6) AST (test code = 1920-8) 27 U/L 5-40 ALT (test code = 1742-6) 11 U/L 5-50 JOHN (test code = JOHN) Sales Team Leader ID - ALENARADHALisa Lab Interpretation (test Abnormal code = 44051-1) [facility] CenterLIPID [id number] 17:17:00 Test Item Value Reference Range Interpretation Comments TRIGLYCERIDES (BEAKER) (test code = 76 mg/dL 540) CHOLESTEROL (BEAKER) (test code = 79 mg/dL 631) HDL CHOLESTEROL (BEAKER) (test code 38 mg/dL = 976) LDL CHOLESTEROL CALCULATED (BEAKER) 26 mg/dL (test code = 633) Triglyceride Reference Range: Low Risk <150 Borderline 150-199 High Risk 200-499 Very High Risk >=500Cholesterol Reference Range: Low Risk <200 Borderline 200-239 High Risk >240HDL Cholesterol Reference Range: Low Risk >=60 High Risk <40LDL Cholesterol Reference Range: Optimal <100 Near Optimal 100-129 Borderline 130-159 High 160-189 Very High >=190 Sales Team Leader ID - ALENALEZOperator ID - ALENALEZOperator ID - RAYO HEPATIC FUNCTION [id number] 17:17:00 Test Item Value Reference Range Interpretation Comments TOTAL PROTEIN (BEAKER) (test code = 9.4 gm/dL 6.0-8.5 H 770) ALBUMIN (BEAKER) (test code = 1145) 4.6 g/dL 3.5-5.0 BILIRUBIN TOTAL (BEAKER) (test code 0.7 mg/dL 0.1-1.2 = 377) BILIRUBIN DIRECT (BEAKER) (test 0.4 mg/dL 0.0-0.4 code = 706) ALKALINE PHOSPHATASE (BEAKER) (test 235 U/L 30-115 H code = 346) AST (SGOT) (BEAKER) (test code = 27 U/L 5-40 353) ALT (SGPT) (BEAKER) (test code = 11 U/L 5-50 347) Sales Team Leader ID - EWBBSUMCBPkrhdzzsw6753-31-18 17:15:00 Test Item Value Reference Range Interpretation Comments Magnesium (test code = 2.8 mg/dL 1.5-3 62962-2) JOHN (test code = JOHN) Sales Team Leader ID - RAYO Lab Interpretation (test Normal code = 22954-1) [facility] CenterMAGNESIUM2020-08-12 17:15:00 Test Item Value Reference Range Interpretation Comments MAGNESIUM (BEAKER) (test code = 2.8 mg/dL 1.5-3.0 627) Sales Team Leader ID - RAYOBASIC METABOLIC [id number] 17:13:00 Test Item Value Reference Range Interpretation Comments SODIUM (BEAKER) 131 meq/L 135-148 L (test code = 381) POTASSIUM (BEAKER) 5.9 meq/L 3.6-5.5 H (test code = 379) CHLORIDE (BEAKER) 93 meq/L 98-106 L (test code = 382) CO2 (BEAKER) (test 21 meq/L 20-29 code = 355) BLOOD UREA NITROGEN 76 mg/dL 10-26 H (BEAKER) (test code = 354) CREATININE (BEAKER) 16.32 mg/dL 0.50-1.20 H (test code = 358) GLUCOSE RANDOM 73 mg/dL 70-110 (BEAKER) (test code = 652) CALCIUM (BEAKER) 11.4 mg/dL 8.5-10.5 H (test code = 697) EGFR (BEAKER) (test 4 mL/min/1.73 ESTIMAT ED GFR IS code = 1092) sq m NOT ACCURATE CREATININE CLEARANCE IN PREDICTING GLOMERULAR FILTRATION RATE . ESTIMATED GFR I S NOT APPLICABLE FOR DIALYSIS PATIEN TS. Sales Team Leader ID - ZVZDUASGXJeejjqjexw9904-96-17 17:11:00 Test Item Value Reference Range Interpretation Comments Phosphorus (test code = 4.6 mg/dL 2.5-4.5 H 2777-1) JOHN (test code = JOHN) Sales Team Leader ID - RAYO Lab Interpretation (test Abnormal code = 75418-9) [facility] CenterPHOSPHORUS2020-08-12 17:11:00 Test Item Value Reference Range Interpretation Comments PHOSPHORUS (BEAKER) (test code = 4.6 mg/dL 2.5-4.5 H 604) Sales Team Leader ID - RAYOProthrombin time/[id number] 17:06:00 Test Item Value Reference Range Interpretation Comments Protime (test code = 11.6 9.3- 12.0 sec 5902-2) INR (test code = 1.07 <=5.90 6301-6) JOHN (test code = JOHN) RECOMMENDED COUMADIN/WARFARIN INR THERAPY RANGESSTANDARD DOSE: 2.0 - 3.0 Includes: PROPHYLAXIS for venous thrombosis, systemic embolization; TREATMENT for venous thrombosis and/or pulmonary embolus.HIGH RISK: Target INR is 2.5-3.5 for patients with mechanical heart valves.Final Information (Auto Output)Final Information (Auto Output) Lab Interpretation Normal (test code = 71802-5) [facility] CenterPROTHROMBIN TIME/[id number] 17:06:00 Test Item Value Reference Range Interpretation Comments PROTIME (BEAKER) (test code = 759) 11.6 sec 9.3-12.0 INR (BEAKER) (test code = 370) 1.07 <=5.90 RECOMMENDED COUMADIN/WARFARIN INR THERAPY RANGESSTANDARD DOSE: 2.0 - 3.0 Includes: PROPHYLAXIS forvenous thrombosis, systemic embolization; TREATMENT for venous thrombosis and/or pulmonary embolus.HIGH RISK: Target INR is 2.5-3.5 for patients with mechanical heart valves.Final Information (Auto Output)Final Information (Auto Output)CBC W/PLT COUNT & AUTO [id number] 16:50:00 Test Item Value Reference Range Interpretation Comments WHITE BLOOD CELL COUNT (BEAKER) 9.1 K/ L 4.0-10.0 (test code = 775) RED BLOOD CELL COUNT (BEAKER) 5.75 M/ L 4.20-5.80 (test code = 761) HEMOGLOBIN (BEAKER) (test code = 16.1 GM/DL 13.0-16.8 410) HEMATOCRIT (BEAKER) (test code = 55.6 % 36.0-50.0 H 411) MEAN CORPUSCULAR VOLUME (BEAKER) 96.7 fL 82.0-99.0 (test code = 753) MEAN CORPUSCULAR HEMOGLOBIN 28.0 pg 27.0-33.0 (BEAKER) (test code = 751) MEAN CORPUSCULAR HEMOGLOBIN CONC 29.0 GM/DL 32.0-36.0 L (BEAKER) (test code = 752) RED CELL DISTRIBUTION WIDTH 18.9 % 12.0-15.0 H (BEAKER) (test code = 412) PLATELET COUNT (BEAKER) (test 175 K/CU MM 150-430 code = 756) MEAN PLATELET VOLUME (BEAKER) 10.1 fL 6.0-11.5 (test code = 754) NUCLEATED RED BLOOD CELLS 0 /100 WBC 0-0 (BEAKER) (test code = 413) NEUTROPHILS RELATIVE PERCENT 76 % (BEAKER) (test code = 429) LYMPHOCYTES RELATIVE PERCENT 14 % (BEAKER) (test code = 430) MONOCYTES RELATIVE PERCENT 8 % (BEAKER) (test code = 431) EOSINOPHILS RELATIVE PERCENT 1 % (BEAKER) (test code = 432) BASOPHILS RELATIVE PERCENT 0 % (BEAKER) (test code = 437) NEUTROPHILS ABSOLUTE COUNT 6.86 K/ L 1.80-8.00 (BEAKER) (test code = 670) LYMPHOCYTES ABSOLUTE COUNT 1.31 K/ L 1.48-4.50 L (BEAKER) (test code = 414) MONOCYTES ABSOLUTE COUNT (BEAKER) 0.74 K/ L 0.00-1.30 (test code = 415) EOSINOPHILS ABSOLUTE COUNT 0.11 K/ L 0.00-0.50 (BEAKER) (test code = 416) BASOPHILS ABSOLUTE COUNT (BEAKER) 0.03 K/ L 0.00-0.20 (test code = 417) IMMATURE GRANULOCYTES-RELATIVE 0 % 0-0 PERCENT (BEAKER) (test code = 2801) XR Chest 1 Vw [id number] 18:20:30Hm Interface, Radiology Results - 05/02/2020 6:23 PM CDTEXAMINATION: XR CHEST 1 VW PORTABLECLINICAL HISTORY: 29 years Male post op TDC insertionCOMPARISON: April 01IMPRESSION:Cardiomediastinal silhouette is unchanged. Pulmonary vascular congestion has increased from prior Age related changes in the osseous structures.Right IJ central venous catheter is in satisfactory position. No pneumothorax..Donovan BbyhsphbtMkbkhy7372-46-49 16:08:37PatelChantal CRNA 05/02/2020 4:09 PMAirwayDate/Time: 05/02/2020 3:56 PMPerformed by: Bill Gates CRNAAuthorized by: Tirso Heller MD Location: ORUrgency: ElectiveDifficult Airway: No Anesthesiologist: Tirso Heller MDResidaniat/LINO/AA: Chantal Gates CRNAPerformed by: resident/LINO/AAPreoxygenated with 100% O2: Yes C-spine Precautions Maintained Throughout: Yes Mask Ventilation: Easy mask (2 hands)Final Airway Type: Supraglottic airwayFinal LMA: I-GelLMA Size: 5Number of Attempts at Approach: 1[facility]Com[facility] metabolic [id number] 11:59:06 Test Item Value Reference Range Interpretation Comments Sodium (test code = 2951-2) 133 135- 148 mEq/L L Potassium (test code = 2823-3) 4.1 3.5- 5.0 mEq/L Chloride (test code = 2075-0) 101 98- 112 mEq/L CO2 (test code = 2027-9) 23 24- 31 mEq/L L Anion gap (test code = 08764-7) 9@ANIO 7- 15 mEq/L BUN (test code = 3094-0) 51 mg/dL 6-20 H Creatinine (test code = 2160-0) 11.41 mg/dL 0.7-1.2 H Glucose (test code = 2345-7) 100 mg/dL 65-99 H Calcium (test code = 64556-1) 9.2 mg/dL 8.3-10.2 Protein (test code = 2885-2) 7.0 g/dL 6.3-8.3 Albumin (test code = 1751-7) 3.3 g/dL 3.5-5 L A/G ratio (test code = 1759-0) 0.9 0.7-3.8 Alkaline phosphatase (test code = 208 U/L 40-129 H 68-6) AST (test code = 1920-8) 22 U/L 10-50 ALT (test code = 1742-6) 16 U/L 5-50 Total bilirubin (test code = 0.4 mg/dL 0.2-1.2 1974-) Lab Interpretation (test code = Abnormal 48598-7) [facility] [id number] 10:11:15 Test Item Value Reference Range Interpretation Comments POC sodium (test code = 129 mmol/L 135-148 L 2947-0) POC potassium (test 5.2 mmol/L 3.5-5 H code = 6298-4) POC hematocrit (test 57 % 41-51 H code = 4544-3) POC glucose (test code 119 mg/dL 65-99 H Opera tor Name: = 2339-0) Jorgito Cuba ID : [id number] POC hemoglobin (test 19.4 g/dL 14-18 H code = 718-7) Lab Interpretation Abnormal (test code = 42319-1) Donovan LqfiysktjEfiins4599-26-07 12:29:51Lauren Fung CRNA 04/04/2020 12:30 PMAirwayDate/Time: 04/04/2020 12:21 PMPerformed by: Lauren Fung CRNAAuthorized by: Geetha Hartley MD Location: ORUrgency: ElectiveAnesthesiologist: Geetha Hartley, MDResident/SPORTS TRAINER/AA: Lauren Fung CRNAPerformed by: anesthesiologistPreoxygenated with 100% O2: Yes C-spine Precautions Maintained Throughout: Yes Mask Ventilation: Easy maskFinal Airway Type: Supraglottic airwayFinal LMA: I-GelLMA Size: 5Number of Attempts at Approach: 1[facility] MethodistXR Chest 2 [id number] 15:27:15Hm Interface, Radiology Results - 04/01/2020 3:30 PM CDTEXAMINATION: XR CHEST 2 VWCLINICAL HISTORY: Z01.818 Encounter for other preprocedural examination, PRE OP TESTINGIMPRESSION:Heart is slightly enlarged. Lungs are clear. There are no effusions. Regional skeleton is intact.[id number] [place] MethodistBlood culture, aerobic & pkfgrsilu8549-54-84 01:33:08 Test Item Value Reference Range Interpretation Comments Blood culture No growth Specimen isolate (test after 5 days InformationSpe [facility] hospitalen code = 600-7) of Source: BloodS pecimen incubation. Site: Arm, righ t [place] MethodistCT Upper Extremity W Contrast [id number] 22:22:43Hm Interface, Radiology Results 03/24/2020 10:25 PM CDTEXAMINATION: CT UPPER EXTREMITY W CONTRAST LEFTCLINICAL HISTORY: Abscess of bursaTECHNIQUE: Muti-detector computed axial tomography (CAT) of the left arm was performed with IV iodinated contrast. Coronal and sagittal reformations were created at the workstation for further review.DOSE REDUCTION: CT imaging was performed with iterative reconstruction technique and/or automated exposure control to reduce radiation dose.COMPARISON: NoneIMPRESSION:1.No soft tissue abscess.FINDINGS:There is no rim-enhancing fluid collection to indicate abscess or bursitis.Nonspecific skin thickening, subcutaneous fat stranding and edema, and deep fascialedema observed in much of the left arm is most concerning for cellulitis. No soft tissue gas.Deep soft tissues are unremarkable. High origin of the radial artery. Radial artery to cephalic vein and brachial artery to basilic vein AV fistulas are patent without narrowing. Arterial calcifications are present. Discontinued AV graft.Bones and joints are unremarkable.Enlarged left axillary lymph nodes arelikely benign and reactive/inflammatory.Right thyroid nodule can be evaluated with thyroid ultrasound on an outpatient basis.[facility]-VY97NLLJZngrycq MethodistHepatitis B surface aqwbqtt6310-88-34 10:56:18 Test Item Value Reference Range Interpretation Comments Hepatitis B surface Ag (test Non-reactive Non-reactive code = 5195-3) [place] MethodistLactic acid level, SEPSIS - Now and repeat 2x every 3 hours 2020-03-24 00:31:48 Test Item Value Reference Range Interpretation Comments Lactic acid (test code = 96622-5) 0.8 mmol/L 0.5-2.2 [place] MethodistUs duplex venous upper [id number] 17:06:14Hm Interface, Radiology Results 03/23/2020 5:09 PM CDTEXAMINATION: US DUPLEX VENOUS UPPER EXTREMITY LEFTCLINICAL HISTORY: LUE swellingCOMPARISON: None.TECHNIQUE: Grayscale, color Doppler, and spectral waveform analysis of the left upper extremity deep venous system was performed.FINDINGS:The left internal jugular vein demonstrates noncompressibility and contains internal echogenicity. The left subclavian, axillary, brachial, basilic, cephalic, and forearm veins reveal no evidence of thrombosis. The veins demonstrate normal Doppler flow and normal compressibility.The contralateral right subclavian vein is patent on color Doppler.IMPRESSION:Deep venous thrombus is seen within the left internal jugular vein.Findings were discussed with and acknowledged by YVETTE NGUYEN at 03/23/2020 5:05 PM. [facility]-[id number] MethodistMRI Upper Extremity Wo Contrast [id number] 14:43:27Hm Interface, Radiology Results 03/18/2020 2:46 PM CDTEXAMINATION: MRI UPPER EXTREMITY WO CONTRAST LEFTINDICATION: Middle finger infection.COMPARISON: None availableTECHNIQUE: Multiplanarmultisequence MRI of the middle finger was acquired without intravenous contrast. Moderate motion degradation.FINDINGS:1.No evidence of osteomyelitis. No evidence of septic arthritis of the middle finger.2.Mild subcutaneous edema of the dorsum of the middle finger at the level of the proximal and middle phalanges which may be secondary to cellulitis. No evidence of disruption of the extensor mechanism.3.The flexor tendons of the middle finger appear intact. There is no evidence of flexor tenosynovitis.4.The collateral ligaments and capsule of the PIP and DIP joints are intact. The MCP joint appearsunremarkable.IMPRESSION:Moderately motion degraded examination.1.No evidence of osteomyelitis.2.Nonspecific subcutaneous edema of the dorsum of the middle finger which may be secondary to cellulitis.3.No evidence of tenosynovitis or disruption of the flexor or extensor tendon mechanism.4.Additional findings and details as above.[facility] MethodistHepatitis B surface Ab, xrypfvrmgvwf1351-77-38 09:31:55 Test Item Value Reference Range Interpretation Comments Hepatitis B surface Ab 342.74 IU/L The a nti-HBs is greater (test code = 5193-8) than or equal to 10 IU/L. This eleanor ent has either had an a ntibody response to HBV vaccination, re ceived a transfusion, or has recovered from HBV infection. This patient should be consi dered immune to hepat itis B.An anti-HBs result greater than or equal t o 10 IU/L implies immunit y. For post-vaccinatio n antibody testin g guidelines for the general public refer to MMWR August 242004/Vol. 54(No . 16);1-23, and f or healthcare work ers refer to MMWR Decemb r 2012/Vol. 62(No . 10);1-19.Refere nce Interval: anti- HBs 9.99 IU/L or less .. ..... Zlshedif82.00 I U/L or greater .... PositiveResults greater than 1,000.00 I U/L are reported as gre ater than 1,000.00 IU/L. This assay should no t be used for blood donor screening, asso ciated re-entry protoc [facility], or for screening H uman Cell, Tissues a nd Cellular and Tissue-Based Pr oducts (HCT/P).Perform ed by [employer] [facility],[address], [place] [address] ynq .[employer], Brent callejas MD, Lab. Director [place] ErikaistHepatitis B surface [id number] 22:34:38 Test Item Value Reference Range Interpretation Comments Hepatitis B surface Ab (test code = Reactive Non-reactive A 94889-4) Lab Interpretation (test code = Abnormal 98701-4) [facility] MethodistECG 12 qijl3059-20-13 15:56:12 Test Item Value Reference Range Interpretation Comments Ventricular rate (test 79 code = 253) Atrial rate (test code 79 = 255) AR interval (test code 228 = 266) QRSD interval (test 84 code = 260) QT interval (test code 400 = 264) QTC interval (test code 458 = 265) P axis 1 (test code = 55 267) QRS axis 1 (test code = 114 268) T wave axis (test code 58 = 270) EKG impression (test Sinus rhythm with 1st code = 273) degree AV block-Left posterior fascicular block-Cannot rule out Anterior infarct (cited on or before 24-AUG-2019)-Abnormal ECG-In automated comparison with ECG of 16-OCT-2019 13:48,-No significant change was found- [facility] XxgjxkmrbDubzsc8609-74-33 12:05:06Nori Wiseman CRNA 02/04/2020 12:05 PMAirwayDate/Time: 02/04/2020 12:05 PMPerformed by: Nori Wiseman CRNAAuthorized by: Dorian Dyer MD Location: ORUrgency: ElectiveDifficult Airway:No Anesthesiologist: Dorian Dyer MDResident/LINO/AA: Nori Wiseman CRNAPerformed by: resident/SPORTS TRAINER/AAPreoxygenated with 100% O2: Yes C-spine Precautions Maintained Throughout: Yes Mask Ventilation: Not attemptedFinal Airway Type: Supraglottic airwayFinal LMA: I-GelLMA Size: 5 Number of Attempts at Approach: 1[place] [id number] 13:53:21 Kelly Zuñiga MD 10/19/2019 1:54 PMAirwayPerformed by: Kelly Zuñiga MDAuthorized by: Kelly Zuñiga MD Location: ORUrgency: ElectiveDifficult Airway: No Anesthesiologist: Kelly Zuñiga V., Roeldent/SPORTS TRAINER/AA: Lauren Fung CRNAPerformed by: resident/SPORTS TRAINER/AA Preoxygenated with 100% O2: Yes C-spine Precautions Maintained Throughout: Yes Mask Ventilation: Not attemptedFinal Airway Type: Supraglottic airwayFinal LMA: I-GelLMA Size: 5Number of Attempts at Approach: 1[facility] Methodist[facility] 2019-08-24 10:14:46Virgen Back CRNA 08/24/2019 10:33 AMAirwayDate/Time: 08/24/2019 10:14 AMPerformed by: Virgen Back CRNAAuthorized by: Mike Og MD Location: ORUrgency: ElectiveD ifficult Airway: No Anesthesiologist: Mike Og, William/SPORTS TRAINER/AA: Virgen Back CRNAPerformed by: resident/LINO/AAPreoxygenated with 100% O2: Yes C-spine Precautions Maintained Throughout: Yes Mask Ventilation: Easy maskFinal Airway Type: Supraglottic airwayFinal LMA: I-GelLMA Size: 5Number of Attempts at Approach: 1 Atraumatic LMA insertion. Lips/teeth/gums unchanged.Donovan Valdes, CV ACCESS, FLUORO 2018-10-27 10:40:00FINAL REPORT Procedure title: Tunneled right internal jugular vein hemodialysis catheter placement using ultrasound and fluoroscopy, 10/23/2018. History: Need for dialysis Anesthesia: 1% lidocaine Sedation: Two mg Versed, 100 mcg fentanyl. The patient was monitored continuously with pulse oximetry and electrocardiography by the attending physician and registered nurse. ASA scale three. Airway okay Physician interservice was time 20 minutes. Approach: Right internal jugular vein Modality: Ultrasound and fluoroscopy Fluoroscopy time: 0.5 minutes, total dose: 16.4 mGy, reference air. Kerma method Technique: After obtaining written informed consent, and using maximal sterile barrier technique, ultrasound. evaluation of the right internal jugular vein was performed. The vein is patent and compressible and was then accessed with real time ultrasound guidance. Images were stored on PACS. Fluoroscopic assistance was then provided to place a catheter that was tunneled subcutaneously along the right anterior chest. The tip of the catheter was positioned in the right atrium. The patient tolerated the procedure well without difficulty. Estimated blood loss was 10 ml . Conclusion:Placement of tunneled hemodialysis catheter. Signed: Isidra Crocker MDReport Verified Date/Time: 10/27/2018 10:40:38 Reading Location: [place] [address] Angio Body Reading Room ANAEROBIC [id number] 10:36:00 Test Item Value Reference Range Interpretation Comments CULTURE ([facility]) (test No anaerobes isolated code = 1095) POCT-GLUCOSE [id number] 18:17:00 Test Item Value Reference Range Interpretation Comments POC-GLUCOSE METER 129 mg/dL 70-110 H TESTED AT [address] ([facility]) (test code [facility] [address] [facility] [place] = 1538) [id number] BASIC METABOLIC [id number] 14:45:00 Test Item Value Reference Range Interpretation Comments SODIUM (BEAKER) 138 meq/L 135-148 (test code = 381) POTASSIUM (BEAKER) 4.6 meq/L 3.6-5.5 (test code = 379) CHLORIDE (BEAKER) 97 meq/L 98-106 L (test code = 382) CO2 (BEAKER) (test 19 meq/L 20-29 L code = 355) BLOOD UREA NITROGEN 27 mg/dL 10-26 H (BEAKER) (test code = 354) CREATININE (BEAKER) 7.19 mg/dL 0.50-1.20 H (test code = 358) GLUCOSE RANDOM 97 mg/dL 70-110 (BEAKER) (test code = 652) CALCIUM (BEAKER) 9.8 mg/dL 8.5-10.5 (test code = 697) EGFR (BEAKER) (test 11 mL/min/1.73 ESTIMA GERONIMO GFR IS code = 1092) sq m NOT ACCURATE CREATININE CLEARANCE IN PREDICTING GLOMERULAR FILTRATION RATE . ESTIMATED GFR I S NOT APPLICABLE FOR DIALYSIS PATIEN TS. CBC W/PLT COUNT & AUTO [id number] 14:35:00 Test Item Value Reference Range Interpretation Comments WHITE BLOOD CELL COUNT (BEAKER) 7.8 K/ L 4.0-10.0 (test code = 775) RED BLOOD CELL COUNT (BEAKER) 3.06 M/ L 4.20-5.80 L (test code = 761) HEMOGLOBIN (BEAKER) (test code = 8.7 GM/DL 13.0-16.8 L 410) HEMATOCRIT (BEAKER) (test code = 26.1 % 40.0-50.0 L 411) MEAN CORPUSCULAR VOLUME (BEAKER) 85.5 fL 82.0-98.0 (test code = 753) MEAN CORPUSCULAR HEMOGLOBIN 28.4 pg 27.0-33.0 (BEAKER) (test code = 751) MEAN CORPUSCULAR HEMOGLOBIN CONC 33.2 GM/DL 32.0-36.0 (BEAKER) (test code = 752) RED CELL DISTRIBUTION WIDTH 19.5 % 10.3-14.2 H (BEAKER) (test code = 412) PLATELET COUNT (BEAKER) (test 264 K/CU MM 150-430 code = 756) MEAN PLATELET VOLUME (BEAKER) 7.4 fL 6.5-10.5 (test code = 754) NEUTROPHILS RELATIVE PERCENT 52 % (BEAKER) (test code = 429) LYMPHOCYTES RELATIVE PERCENT 29 % (BEAKER) (test code = 430) MONOCYTES RELATIVE PERCENT 14 % (BEAKER) (test code = 431) EOSINOPHILS RELATIVE PERCENT 5 % (BEAKER) (test code = 432) BASOPHILS RELATIVE PERCENT 1 % (BEAKER) (test code = 437) NEUTROPHILS ABSOLUTE COUNT 4.20 K/ L 1.80-8.00 (BEAKER) (test code = 670) LYMPHOCYTES ABSOLUTE COUNT 2.20 K/ L 1.48-4.50 (BEAKER) (test code = 414) MONOCYTES ABSOLUTE COUNT (BEAKER) 1.10 K/ L 0.00-1.30 (test code = 415) EOSINOPHILS ABSOLUTE COUNT 0.30 K/ L 0.00-0.50 (BEAKER) (test code = 416) BASOPHILS ABSOLUTE COUNT (AKER) 0.00 K/ L 0.00-0.20 (test code = 417) POCT-GLUCOSE [id number] 11:29:00 Test Item Value Reference Range Interpretation Comments POC-GLUCOSE METER 189 mg/dL 70-110 H TESTED AT [address] ([facility]) (test code [facility] [place] = 1538) [id number] POCT-GLUCOSE [id number] 05:51:00 Test Item Value Reference Range Interpretation Comments POC-GLUCOSE METER 117 mg/dL 70-110 H TESTED AT [address] ([facility]) (test code [facility] [place] = 1538) [id number] POCT-GLUCOSE [id number] 21:42:00 Test Item Value Reference Range Interpretation Comments POC-GLUCOSE METER 120 mg/dL 70-110 H TESTED AT [address] ([facility]) (test code [facility] [place] = 1538) [id number] POCT-GLUCOSE [id number] 20:08:00 Test Item Value Reference Range Interpretation Comments POC-GLUCOSE METER 128 mg/dL 70-110 H TESTED AT [address] ([facility]) (test code [facility] [place] = 1538) [id number] 17:01:00 Test Item Value Reference Range Interpretation Comments PHOSPHORUS ([facility]) (test code = 6.9 mg/dL 2.5-4.5 H 604) POCT-GLUCOSE [id number] 12:06:00 Test Item Value Reference Range Interpretation Comments POC-GLUCOSE METER 122 mg/dL 70-110 H TESTED AT [address] ([facility]) (test code [facility] [place] = 1538) [id number] TISSUE [id number] 09:54:00Surgical Pathology Report Case: [id number] Authorizing Provider: Lisa Greenberg MD Collected: 01/31/2018 1110 Ordering Location: [facility] Med Surg 5th Floor Received: 01/31/2018 1249 Pathologist: Sherri Zarate MD Specimen: Leg, Left Lower, NECROTIC TISSUE LEFT LOWER LEG SKIN AND SOFT TISSUE, LEFT LOWER LEG, EXCISION: - SKIN AND SUBCUTIS WITH NECROSIS, ACUTE AND CHRONIC INFLAMMATION, BACTERIAL COLONIZATION AND CALCIFICATION OF BLOOD VESSELS, CONSISTENT WITH CALCIPHYLAXIS (SEE COMMENT) Signing Pathologist Direct Phone Line: [phone] signed by Sherri Zarate MD on 02/03/2018 at 9:54 AMCalcification of small and medium sized blood vessels are identified along with extensive necrosis of tissue. 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 [id number] givenLeg, left lower, necrotic tissue left lower legThe specimen is received in fixative and designated as "leg, left lower" and consists of skin and subcutaneous tissue (6.0 x 4.0 x 2.0 cm). The overlying skin is brown-patterson and smooth. No discrete lesions. The underlying soft tissue is soft and necrotic. Rabbit Breeder sectionsof the skin and soft tissue are submitted into A1 to A3. MG/pl Performed [facility], Department of Pathology, [address] [place] [address], [place]. [facility], Department of Pathology, [address] [place] [address], Tel . [facility], Department of Pathology, [address] [place] [address], ODJ W/PLT COUNT & AUTO [id number] 09:08:00 Test Item Value Reference Range Interpretation Comments WHITE BLOOD CELL COUNT (BEAKER) 6.8 K/ L 4.0-10.0 (test code = 775) RED BLOOD CELL COUNT (BEAKER) 2.19 M/ L 4.20-5.80 L (test code = 761) HEMOGLOBIN (BEAKER) (test code = 6.2 GM/DL 13.0-16.8 L 410) HEMATOCRIT (BEAKER) (test code = 18.8 % 40.0-50.0 L 411) MEAN CORPUSCULAR VOLUME (BEAKER) 85.9 fL 82.0-98.0 (test code = 753) MEAN CORPUSCULAR HEMOGLOBIN 28.4 pg 27.0-33.0 (BEAKER) (test code = 751) MEAN CORPUSCULAR HEMOGLOBIN CONC 33.1 GM/DL 32.0-36.0 (BEAKER) (test code = 752) RED CELL DISTRIBUTION WIDTH 22.6 % 10.3-14.2 H (BEAKER) (test code = 412) PLATELET COUNT (BEAKER) (test 198 K/CU MM 150-430 code = 756) MEAN PLATELET VOLUME (BEAKER) 7.1 fL 6.5-10.5 (test code = 754) NUCLEATED RED BLOOD CELLS 0 /100 WBC 0-0 (BEAKER) (test code = 413) NEUTROPHILS RELATIVE PERCENT 63 % (BEAKER) (test code = 429) LYMPHOCYTES RELATIVE PERCENT 19 % (BEAKER) (test code = 430) MONOCYTES RELATIVE PERCENT 13 % (BEAKER) (test code = 431) EOSINOPHILS RELATIVE PERCENT 5 % (BEAKER) (test code = 432) BASOPHILS RELATIVE PERCENT 1 % (BEAKER) (test code = 437) NEUTROPHILS ABSOLUTE COUNT 4.30 K/ L 1.80-8.00 (BEAKER) (test code = 670) LYMPHOCYTES ABSOLUTE COUNT 1.30 K/ L 1.48-4.50 L (BEAKER) (test code = 414) MONOCYTES ABSOLUTE COUNT (BEAKER) 0.90 K/ L 0.00-1.30 (test code = 415) EOSINOPHILS ABSOLUTE COUNT 0.30 K/ L 0.00-0.50 (BEAKER) (test code = 416) BASOPHILS ABSOLUTE COUNT (BEAKER) 0.00 K/ L 0.00-0.20 (test code = 417) (MANUAL DIFFERENTIAL)2018-02-03 09:08:00 Test Item Value Reference Range Interpretation Comments TOTAL COUNTED (BEAKER) (test code = 1351) WBC MORPHOLOGY (BEAKER) (test code = Normal 487) PLT MORPHOLOGY (BEAKER) (test code = Normal 486) ANISOCYTOSIS (BEAKER) (test code = 1+ few 961) BASIC METABOLIC [id number] 08:39:00 Test Item Value Reference Range Interpretation Comments SODIUM (BEAKER) 131 meq/L 135-148 L (test code = 381) POTASSIUM (BEAKER) 5.0 meq/L 3.6-5.5 (test code = 379) CHLORIDE (BEAKER) 97 meq/L 98-106 L (test code = 382) CO2 (BEAKER) (test 25 meq/L 20-29 code = 355) BLOOD UREA NITROGEN 41 mg/dL 10-26 H (BEAKER) (test code = 354) CREATININE (BEAKER) 9.74 mg/dL 0.50-1.20 H (test code = 358) GLUCOSE RANDOM 88 mg/dL 70-110 (BEAKER) (test code = 652) CALCIUM (BEAKER) 8.7 mg/dL 8.5-10.5 (test code = 697) EGFR (BEAKER) (test 8 mL/min/1.73 ESTIMAT ED GFR IS code = 1092) sq m NOT ACCURATE CREATININE CLEARANCE IN PREDICTING GLOMERULAR FILTRATION RATE . ESTIMATED GFR I S NOT APPLICABLE FOR DIALYSIS PATIEN TS. HEMOGLOBIN AND [id number] 08:25:00 Test Item Value Reference Range Interpretation Comments [facility] (test code = 6.5 GM/DL 13.0-16.8 L 410) HEMATOCRIT ([facility]) (test code = 19.0 % 40.0-50.0 L 411) POCT-GLUCOSE [id number] 21:42:00 Test Item Value Reference Range Interpretation Comments POC-GLUCOSE METER 121 mg/dL 70-110 H TESTED AT [address] ([facility]) (test code [facility] = 1538) [id number] POCT-GLUCOSE [id number] 16:40:00 Test Item Value Reference Range Interpretation Comments POC-GLUCOSE METER 134 mg/dL 70-110 H TESTED AT [address] ([facility]) (test code [facility] = 1538) [id number] POCT-GLUCOSE [id number] 12:00:00 Test Item Value Reference Range Interpretation Comments POC-GLUCOSE METER 84 mg/dL 70-110 TESTED AT [address] ([facility]) (test code = [facility] 1538) [address] SURGICALLY OBTAINED CULTURE + GRAM [id number] 08:12:00 Test Item Value Reference Interpretation Comments Range CULTURE ([facility]) METHICILLIN A 2+ Methicil antelmo (test code = 1095) RESISTANT resistant STAPHYLOCOCCUS Staphylococcu s AUREUS aureus Ciprofloxacin (test R code = 7) Clindamycin (test S code = 10) Daptomycin (test code S = 59) Erythromycin (test I code = 4) Gentamicin (test code S = 18) Levofloxacin (test R code = 22) Linezolid (test code S = 40) Moxifloxacin (test S code = 36) Nitrofurantoin (test S code = 23) Oxacillin (test code R = 14) Rifampin (test code = S 43) Tetracycline (test S code = 2) Tigecycline (test S code = 133) Trimethoprim + S Sulfamethoxazole (test code = 47) Vancomycin (test code S = 13) GRAM STAIN RESULT 4+ WBCs (BEAKER) (test code = 1123) GRAM STAIN RESULT 1+ gram positive (BEAKER) (test code = cocci in clusters [id number]) CBC W/PLT COUNT & AUTO [id number] 06:19:00 Test Item Value Reference Range Interpretation Comments WHITE BLOOD CELL COUNT (BEAKER) 7.9 K/ L 4.0-10.0 (test code = 775) RED BLOOD CELL COUNT (BEAKER) 2.16 M/ L 4.20-5.80 L (test code = 761) HEMOGLOBIN (BEAKER) (test code = 6.2 GM/DL 13.0-16.8 L 410) HEMATOCRIT (BEAKER) (test code = 18.9 % 40.0-50.0 L 411) MEAN CORPUSCULAR VOLUME (BEAKER) 87.2 fL 82.0-98.0 (test code = 753) MEAN CORPUSCULAR HEMOGLOBIN 28.7 pg 27.0-33.0 (BEAKER) (test code = 751) MEAN CORPUSCULAR HEMOGLOBIN CONC 32.9 GM/DL 32.0-36.0 (BEAKER) (test code = 752) RED CELL DISTRIBUTION WIDTH 23.4 % 10.3-14.2 H (BEAKER) (test code = 412) PLATELET COUNT (BEAKER) (test 203 K/CU MM 150-430 code = 756) MEAN PLATELET VOLUME (BEAKER) 7.2 fL 6.5-10.5 (test code = 754) NUCLEATED RED BLOOD CELLS 0 /100 WBC 0-0 (BEAKER) (test code = 413) NEUTROPHILS RELATIVE PERCENT 64 % (BEAKER) (test code = 429) LYMPHOCYTES RELATIVE PERCENT 18 % (BEAKER) (test code = 430) MONOCYTES RELATIVE PERCENT 14 % (BEAKER) (test code = 431) EOSINOPHILS RELATIVE PERCENT 4 % (BEAKER) (test code = 432) BASOPHILS RELATIVE PERCENT 1 % (BEAKER) (test code = 437) NEUTROPHILS ABSOLUTE COUNT 5.00 K/ L 1.80-8.00 (BEAKER) (test code = 670) LYMPHOCYTES ABSOLUTE COUNT 1.40 K/ L 1.48-4.50 L (BEAKER) (test code = 414) MONOCYTES ABSOLUTE COUNT (BEAKER) 1.10 K/ L 0.00-1.30 (test code = 415) EOSINOPHILS ABSOLUTE COUNT 0.30 K/ L 0.00-0.50 (BEAKER) (test code = 416) BASOPHILS ABSOLUTE COUNT (BEAKER) 0.00 K/ L 0.00-0.20 (test code = 417) POCT-GLUCOSE [id number] 06:01:00 Test Item Value Reference Range Interpretation Comments POC-GLUCOSE METER 122 mg/dL 70-110 H TESTED AT [address] ([facility]) (test code [facility] [place] = 1538) [id number] POCT-GLUCOSE [id number] 21:23:00 Test Item Value Reference Range Interpretation Comments POC-GLUCOSE METER 178 mg/dL 70-110 H TESTED AT [address] ([facility]) (test code [facility] [place] = 1538) [id number] POCT-GLUCOSE [id number] 16:29:00 Test Item Value Reference Range Interpretation Comments POC-GLUCOSE METER 165 mg/dL 70-110 H TESTED AT [address] ([facility]) (test code [facility] [place] = 1538) [address] POCT-GLUCOSE [id number] 11:59:00 Test Item Value Reference Range Interpretation Comments POC-GLUCOSE METER 131 mg/dL 70-110 H TESTED AT [address] ([facility]) (test code [facility] [place] = 1538) [address] POCT-GLUCOSE [id number] 05:22:00 Test Item Value Reference Range Interpretation Comments POC-GLUCOSE METER 104 mg/dL 70-110 TESTED AT [address] ([facility]) (test code [facility] [place] = 1538) [id number] POCT-GLUCOSE [id number] 22:48:00 Test Item Value Reference Range Interpretation Comments POC-GLUCOSE METER 122 mg/dL 70-110 H TESTED AT [facility] (test code [facility] [address] [facility] [place] = 1538) [address] HEPATITIS B SURFACE [id number] 20:44:00 Test Item Value Reference Range Interpretation Comments HEPATITIS B SURFACE ANTIBODY 10.2 mIU/mL <8.0 H (BEAKER) (test code = 647) POCT-GLUCOSE [id number] 18:00:00 Test Item Value Reference Range Interpretation Comments POC-GLUCOSE METER 127 mg/dL 70-110 H TESTED AT [facility] (test code [facility] [address] [facility] [place] = 1538) [address] BASIC METABOLIC [id number] 11:02:00 Test Item Value Reference Range Interpretation Comments SODIUM (BEAKER) 137 meq/L 135-148 (test code = 381) POTASSIUM (BEAKER) 3.5 meq/L 3.6-5.5 L (test code = 379) CHLORIDE (BEAKER) 98 meq/L 98-106 (test code = 382) CO2 (BEAKER) (test 27 meq/L 20-29 code = 355) BLOOD UREA NITROGEN 11 mg/dL 10-26 (BEAKER) (test code = 354) CREATININE (BEAKER) 3.99 mg/dL 0.50-1.20 H (test code = 358) GLUCOSE RANDOM 84 mg/dL 70-110 (BEAKER) (test code = 652) CALCIUM (BEAKER) 9.6 mg/dL 8.5-10.5 (test code = 697) EGFR (BEAKER) (test 22 mL/min/1.73 ESTIMA GERONIMO GFR IS code = 1092) sq m NOT ACCURATE CREATININE CLEARANCE IN PREDICTING GLOMERULAR FILTRATION RATE . ESTIMATED GFR I S NOT APPLICABLE FOR DIALYSIS PATIEN TS. CBC W/PLT COUNT & AUTO [id number] 10:36:00 Test Item Value Reference Range Interpretation Comments WHITE BLOOD CELL COUNT (BEAKER) 6.7 K/ L 4.0-10.0 (test code = 775) RED BLOOD CELL COUNT (BEAKER) 2.89 M/ L 4.20-5.80 L (test code = 761) HEMOGLOBIN (BEAKER) (test code = 8.2 GM/DL 13.0-16.8 L 410) HEMATOCRIT (BEAKER) (test code = 24.9 % 40.0-50.0 L 411) MEAN CORPUSCULAR VOLUME (BEAKER) 86.1 fL 82.0-98.0 (test code = 753) MEAN CORPUSCULAR HEMOGLOBIN 28.3 pg 27.0-33.0 (BEAKER) (test code = 751) MEAN CORPUSCULAR HEMOGLOBIN CONC 32.9 GM/DL 32.0-36.0 (BEAKER) (test code = 752) RED CELL DISTRIBUTION WIDTH 24.6 % 10.3-14.2 H (BEAKER) (test code = 412) PLATELET COUNT (BEAKER) (test 234 K/CU MM 150-430 code = 756) MEAN PLATELET VOLUME (BEAKER) 7.3 fL 6.5-10.5 (test code = 754) NUCLEATED RED BLOOD CELLS 0 /100 WBC 0-0 (BEAKER) (test code = 413) NEUTROPHILS RELATIVE PERCENT 64 % (BEAKER) (test code = 429) LYMPHOCYTES RELATIVE PERCENT 20 % (BEAKER) (test code = 430) MONOCYTES RELATIVE PERCENT 11 % (BEAKER) (test code = 431) EOSINOPHILS RELATIVE PERCENT 4 % (BEAKER) (test code = 432) BASOPHILS RELATIVE PERCENT 1 % (BEAKER) (test code = 437) NEUTROPHILS ABSOLUTE COUNT 4.30 K/ L 1.80-8.00 (BEAKER) (test code = 670) LYMPHOCYTES ABSOLUTE COUNT 1.30 K/ L 1.48-4.50 L (BEAKER) (test code = 414) MONOCYTES ABSOLUTE COUNT (BEAKER) 0.80 K/ L 0.00-1.30 (test code = 415) EOSINOPHILS ABSOLUTE COUNT 0.30 K/ L 0.00-0.50 (BEAKER) (test code = 416) BASOPHILS ABSOLUTE COUNT (BEAKER) 0.00 K/ L 0.00-0.20 (test code = 417) (MANUAL DIFFERENTIAL)2018-01-31 10:36:00 Test Item Value Reference Range Interpretation Comments TOTAL COUNTED (BEAKER) (test code = 1351) WBC MORPHOLOGY (BEAKER) (test code = Normal 487) PLT MORPHOLOGY (BEAKER) (test code = Normal 486) ANISOCYTOSIS (BEAKER) (test code = 1+ few 961) MICROCYTES (BEAKER) (test code = 965) 1+ few POIKILOCYTES (BEAKER) (test code = 1+ few 966) HEPATITIS B SURFACE [id number] 07:50:00 Test Item Value Reference Range Interpretation Comments HEPATITIS B SURFACE ANTIGEN (2) Nonreactive Nonreactive (BEAKER) (test code = 2585) BASIC METABOLIC [id number] 07:45:00 Test Item Value Reference Range Interpretation Comments SODIUM (BEAKER) 133 meq/L 135-148 L (test code = 381) POTASSIUM (BEAKER) 4.4 meq/L 3.6-5.5 (test code = 379) CHLORIDE (BEAKER) 97 meq/L 98-106 L (test code = 382) CO2 (BEAKER) (test 25 meq/L 20-29 code = 355) BLOOD UREA NITROGEN 25 mg/dL 10-26 (BEAKER) (test code = 354) CREATININE (BEAKER) 7.52 mg/dL 0.50-1.20 H (test code = 358) GLUCOSE RANDOM 89 mg/dL 70-110 (BEAKER) (test code = 652) CALCIUM (BEAKER) 9.8 mg/dL 8.5-10.5 (test code = 697) EGFR (BEAKER) (test 10 mL/min/1.73 ESTIMA GERONIMO GFR IS code = 1092) sq m NOT ACCURATE CREATININE CLEARANCE IN PREDICTING GLOMERULAR FILTRATION RATE . ESTIMATED GFR I S NOT APPLICABLE FOR DIALYSIS PATIEN TS. POCT-GLUCOSE [id number] 06:32:00 Test Item Value Reference Range Interpretation Comments POC-GLUCOSE METER 82 mg/dL 70-110 TESTED AT [address] ([facility] (test code = [address] [facility] 1538) [id number] POCT-GLUCOSE [id number] 17:47:00 Test Item Value Reference Range Interpretation Comments POC-GLUCOSE METER 106 mg/dL 70-110 TESTED AT [address] ([facility] (test code [address] [facility] = 1538) [id number] CBC W/PLT COUNT & AUTO [id number] 16:41:00 Test Item Value Reference Range Interpretation Comments WHITE BLOOD CELL COUNT (BEAKER) 8.0 K/ L 4.0-10.0 (test code = 775) RED BLOOD CELL COUNT (BEAKER) 3.02 M/ L 4.20-5.80 L (test code = 761) HEMOGLOBIN (BEAKER) (test code = 8.5 GM/DL 13.0-16.8 L 410) HEMATOCRIT (BEAKER) (test code = 25.9 % 40.0-50.0 L 411) MEAN CORPUSCULAR VOLUME (BEAKER) 85.7 fL 82.0-98.0 (test code = 753) MEAN CORPUSCULAR HEMOGLOBIN 28.3 pg 27.0-33.0 (BEAKER) (test code = 751) MEAN CORPUSCULAR HEMOGLOBIN CONC 33.0 GM/DL 32.0-36.0 (BEAKER) (test code = 752) RED CELL DISTRIBUTION WIDTH 24.9 % 10.3-14.2 H (BEAKER) (test code = 412) PLATELET COUNT (BEAKER) (test 272 K/CU MM 150-430 code = 756) MEAN PLATELET VOLUME (BEAKER) 6.7 fL 6.5-10.5 (test code = 754) NUCLEATED RED BLOOD CELLS 0 /100 WBC 0-0 (BEAKER) (test code = 413) NEUTROPHILS RELATIVE PERCENT 65 % (BEAKER) (test code = 429) LYMPHOCYTES RELATIVE PERCENT 19 % (BEAKER) (test code = 430) MONOCYTES RELATIVE PERCENT 12 % (BEAKER) (test code = 431) EOSINOPHILS RELATIVE PERCENT 3 % (BEAKER) (test code = 432) BASOPHILS RELATIVE PERCENT 1 % (BEAKER) (test code = 437) NEUTROPHILS ABSOLUTE COUNT 5.20 K/ L 1.80-8.00 (BEAKER) (test code = 670) LYMPHOCYTES ABSOLUTE COUNT 1.50 K/ L 1.48-4.50 (BEAKER) (test code = 414) MONOCYTES ABSOLUTE COUNT (BEAKER) 1.00 K/ L 0.00-1.30 (test code = 415) EOSINOPHILS ABSOLUTE COUNT 0.20 K/ L 0.00-0.50 (BEAKER) (test code = 416) BASOPHILS ABSOLUTE COUNT (BEAKER) 0.00 K/ L 0.00-0.20 (test code = 417) (MANUAL DIFFERENTIAL)[id number] 16:41:00 Test Item Value Reference Range Interpretation Comments TOTAL COUNTED (BEAKER) (test code = 1351) WBC MORPHOLOGY (BEAKER) (test Normal code = 487) PLT MORPHOLOGY (BEAKER) (test Normal code = 486) ANISOCYTOSIS (BEAKER) (test code 2+ moderate = 961) HYPOCHROMIA (BEAKER) (test code = 2+ moderate 963) BASIC METABOLIC [id number] 16:21:00 Test Item Value Reference Range Interpretation Comments SODIUM (BEAKER) 133 meq/L 135-148 L (test code = 381) POTASSIUM (BEAKER) 4.5 meq/L 3.6-5.5 (test code = 379) CHLORIDE (BEAKER) 96 meq/L 98-106 L (test code = 382) CO2 (BEAKER) (test 26 meq/L 20-29 code = 355) BLOOD UREA NITROGEN 21 mg/dL 10-26 (BEAKER) (test code = 354) CREATININE (BEAKER) 6.41 mg/dL 0.50-1.20 H (test code = 358) GLUCOSE RANDOM 93 mg/dL 70-110 (BEAKER) (test code = 652) CALCIUM (BEAKER) 10.0 mg/dL 8.5-10.5 (test code = 697) EGFR (BEAKER) (test 13 mL/min/1.73 ESTIMA GERONIMO GFR IS code = 1092) sq m NOT ACCURATE CREATININE CLEARANCE IN PREDICTING GLOMERULAR FILTRATION RATE . ESTIMATED GFR I S NOT APPLICABLE FOR DIALYSIS PATIEN TS. PROTHROMBIN TIME/[id number] 16:17:00 Test Item Value Reference Range Interpretation Comments PROTIME (BEAKER) (test code = 11.2 seconds 9.3-12.0 759) INR (BEAKER) (test code = 370) 1.0 <=5.9 RECOMMENDED COUMADIN/WARFARIN INR THERAPY RANGESSTANDARD DOSE: 2.0 - 3.0 Includes: PROPHYLAXIS forvenous thrombosis, systemic embolization; TREATMENT for venous thrombosis and/or pulmonary embolus.HIGH RISK: Target INR is 2.5-3.5 for patients with mechanical heart valves.
--- NOTE | 2020-07-14 01:13 | EDPHYS ---
Physician Documentation [facility] Name: Rodrigue Arreola Jr Age: 29 yrs Sex: Male : 1990 Arrival Date: 07/13/2020 Time: 22:23 Bed 16 Private MD: Johnathan Banks E ED Physician Hans Nuñez HPI: 07/13 22:43 This 29 yrs old Black Male presents to ER via Ambulatory with complaints of Problem jmm With Urinary Catheter. 22:43 Onset: The symptoms/episode began/occurred today. This is a 29 year old male with a jmm history of ESRD that presents to the ED with concerns his dialysis catheter had come loose. Advised by PCP to go to the ED for removal. Historical: - Allergies: 22:49 No Known Allergies; jd3 - PMHx: 22:49 CHF; CVA; Diabetes - IDDM; Dialysis; Saturday, , Saturday; ESRD; Hypertension; jd3 Hypothyroidism; - PSHx: 22:49 dialysis cath; jd3 - Immunization history:: Adult Immunizations up to date. - Social history:: Smoking status: unknown. ROS: 22:43 Constitutional: Negative for fever, chills, and weight loss, Cardiovascular: Negative jmm for chest pain, palpitations, and edema, Respiratory: Negative for shortness of breath, cough, wheezing, and pleuritic chest pain, Abdomen/GI: Negative for abdominal pain, nausea, vomiting, diarrhea, and constipation, Neuro: Negative for headache, weakness, numbness, tingling, and seizure. 22:43 All other systems are negative. Exam: 22:43 Constitutional: This is a well developed, well nourished patient who is awake, alert, jmm and in no acute distress. Head/Face: atraumatic. Eyes: EOMI, no conjunctival erythema appreciated ENT: Moist Mucus Membranes Neck: Trachea midline, Supple Chest/axilla: Normal chest wall appearance and motion. Cardiovascular: Regular rate and rhythm. No edema appreciated Respiratory: Normal respirations, no respiratory distress appreciated Abdomen/GI: Non distended, soft Back: Normal ROM Skin: General appearance color normal MS/ Extremity: Moves all extremities, no obvious deformities appreciated, no edema noted to the lower extremities Neuro: Awake and alert, normal gait Psych: Behavior is normal, Mood is normal, Patient is cooperative and pleasant Vital Signs: 22:47 BP 159 / 97; Pulse 100; Resp 17 S; Temp 98.7(TE); Pulse Ox 100% on R/A; Weight 152.86 jd3 kg (R); Height 6 ft. 4 in. (193.04 cm) (R); Pain 0/10; 23:53 BP 154 / 106; Pulse 92; Resp 17 S; Pulse Ox 99% on R/A; jd3 07/14 01:00 BP 133 / 90; Pulse 88; Resp 18; Pulse Ox 100% ; ea 07/13 22:47 Body Mass Index 41.02 (152.86 kg, 193.04 cm) jd3 MDM: 07/13 22:43 Patient medically screened. andrea 07/14 00:27 Data reviewed: vital signs, nurses notes. ED course: I discussed the patient with Dr. andrea Valdez whom recommended having the catheter removal in the ED. Catheter was removed in the ED and direct pressure applied for 30 + minutes. After pressure was removed the patient was observed for another 30 minutes without bleeding appreciated. . Administered Medications: No medications were administered Disposition: 01:12 Co-signature as Attending Physician, Hans Nuñez MD. rn Disposition: 07/14/20 01:12 Discharged to Home. Impression: Displacement of vascular dialysis catheter. - Condition is Stable. - Medication Reconciliation Form, Thank You Letter, Antibiotic Education, Prescription Opioid Use, Work release form, Family Work Release form. - Follow up: Private Physician; When: Tomorrow; Reason: Recheck today's complaints, Continuance of care, Re-evaluation by your physician. Signatures: Cristian Mejia PA PA jmm Nieto, Roman, MD MD rn Antunez, Elena, RN RN ea Davies, Jonathon, RN RN jd3 Corrections: (The following items were deleted from the chart) 01:17 01:12 07/14/2020 01:12 Discharged to Home. Impression: Displacement of vascular ea dialysis catheter. Condition is Stable. Forms are Medication Reconciliation Form, Thank You Letter, Antibiotic Education, Prescription Opioid Use. Follow up: Private Physician; When: Tomorrow; Reason: Recheck today's complaints, Continuance of care, Re-evaluation by your physician. rn
--- NOTE | 2020-07-14 01:13 | ER ---
Nurse's Notes [facility] Name: Rodrigue Arreola Jr Age: 29 yrs Sex: Male : 1990 Arrival Date: 07/13/2020 Time: 22:23 Bed 16 Private MD: Johnathan Banks E Diagnosis: Displacement of vascular dialysis catheter Presentation: 07/13 22:45 Chief complaint: Patient states: "My tunnel dialysis catheter is coming out that was jd3 placed in my leg. my dialysis doctor told me to come to the er to get it removed and then they will replace it tomorrow at dialysis.". Coronavirus screen: At this time, the client does not indicate any symptoms associated with coronavirus-19. Ebola Screen: Patient negative for fever greater than or equal to 101.5 degrees Fahrenheit, and additional compatible Ebola Virus Disease symptoms. Initial Sepsis Screen: Does the patient meet any 2 criteria? No. Patient's initial sepsis screen is negative. Does the patient have a suspected source of infection? No. Patient's initial sepsis screen is negative. Risk Assessment: Do you want to hurt yourself or someone else? Patient reports no desire to harm self or others. Onset of symptoms was July 13, 2020. 22:45 Method Of Arrival: Ambulatory jd3 22:45 Acuity: DAVID 3 jd3 Historical: - Allergies: 22:49 No Known Allergies; jd3 - PMHx: 22:49 CHF; CVA; Diabetes - IDDM; Dialysis; Saturday, , Saturday; ESRD; Hypertension; jd3 Hypothyroidism; - PSHx: 22:49 dialysis cath; jd3 - Immunization history:: Adult Immunizations up to date. - Social history:: Smoking status: unknown. Screenin:51 Abuse screen: Denies threats or abuse. Nutritional screening: No deficits noted. jd3 Tuberculosis screening: No symptoms or risk factors identified. Fall Risk Ambulatory Aid- None/Bed Rest/Nurse Assist (0 pts). Gait- Normal/Bed Rest/Wheelchair (0 pts) Mental Status- Oriented to own ability (0 pts). Total Su Fall Scale indicates No Risk (0-24 pts). Assessment: 22:49 General: Appears in no apparent distress. comfortable, Behavior is calm, cooperative, jd3 appropriate for age, Reports dialysis cath coming out on left leg. Pain: Denies pain. Neuro: Level of Consciousness is awake, alert, obeys commands, Oriented to person, place, time, situation. Cardiovascular: Denies chest pain, Capillary refill < 3 seconds Patient's skin is warm and dry. Respiratory: Airway is patent Respiratory effort is even, unlabored, Respiratory pattern is regular, symmetrical, Denies cough, shortness of breath. GI: No signs and/or symptoms were reported involving the gastrointestinal system. : No signs and/or symptoms were reported regarding the genitourinary system. EENT: No signs and/or symptoms were reported regarding the EENT system. Derm: Skin is intact, Skin is dry, Skin is normal, Skin temperature is warm. Musculoskeletal: Circulation, motion, and sensation intact. Range of motion: intact in all extremities. 23:53 Reassessment: Patient appears in no apparent distress at this time. No changes from jd3 previously documented assessment. Patient and/or family updated on plan of care and expected duration. Pain level reassessed. Patient is alert, oriented x 3, equal unlabored respirations, skin warm/dry/pink. 07/14 01:10 Reassessment: Patient and/or family updated on plan of care and expected duration. Pain ea level reassessed. Patient is alert, oriented x 3, equal unlabored respirations, skin warm/dry/pink. Pressure dressing intact, no bleeding noted. 01:16 Reassessment: Patient and/or family updated on plan of care and expected duration. Pain ea level reassessed. Patient is alert, oriented x 3, equal unlabored respirations, skin warm/dry/pink. Discharge instruction given to patient, verbalized the understanding of instruction . Pt left ED ambulatory tolerating well. Vital Signs: 07/13 22:47 BP 159 / 97; Pulse 100; Resp 17 S; Temp 98.7(TE); Pulse Ox 100% on R/A; Weight 152.86 jd3 kg (R); Height 6 ft. 4 in. (193.04 cm) (R); Pain 0/10; 23:53 BP 154 / 106; Pulse 92; Resp 17 S; Pulse Ox 99% on R/A; jd3 07/14 01:00 BP 133 / 90; Pulse 88; Resp 18; Pulse Ox 100% ; ea 07/13 22:47 Body Mass Index 41.02 (152.86 kg, 193.04 cm) jd3 ED Course: 07/13 22:23 Patient arrived in ED. am2 22:23 Johnathan Banks MD is Private Physician. am2 22:34 Cristian [facility] 22:34 Hans Nuñez MD is Attending Physician. [facility] 22:47 Triage completed. jd3 22:47 Arm band placed on. jd3 22:51 Patient has correct armband on for positive identification. Bed in low position. Call jd3 light in reach. Side rails up X 1. Adult w/ patient. Pulse ox on. NIBP on. 23:43 Froylan Silva, RN is Primary Nurse. jd3 23:43 Dialysis cath discontinued form left leg by provider. pressure dressing applied and jd3 sandbag in place. 07/14 01:16 Patient did not have IV access during this emergency room visit. ea Administered Medications: No medications were administered Outcome: 01:12 Discharge ordered by MD. rn 01:15 Discharged to home ambulatory, with family. ea 01:15 Condition: stable 01:15 Discharge instructions given to patient, Instructed on discharge instructions, follow up and referral plans. Demonstrated understanding of instructions, follow-up care. 01:17 Patient left the ED. ea Signatures: Cristian Mejia PA PA Hans Gomes MD MD rn Moreno, Amanda 2 Lluvia Olsen RN Froylan Sen ea, RN RN jd3
[2020-07-14 01:41] VITALS: TEMP 98.7
[2020-07-14 01:44] VITALS: BP 133/90; O2SAT 100
== END 2020-07-14 01:17 | disposition home or self-care (01) ==
LOC: ER 22:20
DX: T82.42XA Displacement of vascular dialysis catheter, initial encounter (principal); E11.22 Type 2 diabetes mellitus with diabetic chronic kidney disease; I13.2 Hypertensive heart and chronic kidney disease with heart failure and with stage 5 chronic kidney disease, or end stage renal disease; I50.9 Heart failure, unspecified; N18.6 End stage renal disease; Z99.2 Dependence on renal dialysis
CPT/HCPCS: 99283

== ENCOUNTER 2020-09-15 14:30 | Emergency (ER) | payer OTHER ==
--- OUTSIDE RECORDS SUMMARY | 2020-09-15 14:33 | XMS REPORT | Clinical Summary ---
:1990 Author Organization [facility] Address [address] [place] [address] Care Team Providers Name Role Phone Leonor [...] (APRESOLINE) 25 MG mouth as tablet needed. LANTUS U-100 Inject 15 1 07/20/2019 Discon [...] at daily. Discharge) HYDROcodone-acetam Take 1 tablet 0 10/13/2018 Discontinued [...] .acute pain. Max Daily Amount: 4 tablets HYDROcodone-acetam Take 1 tablet 30 tablet 0 07/06/2020 Discontinued inophen (NORCO) by mouth 0 (Sto p Taking at 5-325 mg per every 6 (six) Dis charge) tabletIndications: hours as acute pain needed for moderate pain for up to 30 doses .acute pain. Max Daily Amount: 4 tablets Active Problems Problem Noted Date Failure of hemodialysis access 07/14/2020 Cellulitis of left upper arm 03/23/2020 Problem with dialysis access 10/20/2019 ESRD (end stage renal disease) 10/20/2019 ESRD (end stage renal disease) on dialysis 10/19/2019 Encounters Date Type Specialty Care Team Description 07/14/2020 Anesthesia Event General Surgery Kenny Coppola MD Paravati, Joseph R 07/14/2020 Surgery General Surgery Karli Campos INSERTIO SHARON MD TUNNELED DIALYS IS CATHETER LEFT G ROIN 07/14/2020 Emergency General Internal Rivenes, Josep Failure o f hemodialysis access, initial encounter ([facility]) (Primary Dx); Monserrat Fowler MD Acute pulmonary edema ([facility]); Luci Felton Chronic anticoa gulation; MD Leonor End stage renal disease (HCC) 07/14/2020 Travel 07/06/2020 Anesthesia Event General Surgery Mike Og MD Sardina, Maydee, PALOMO 07/06/2020 Surgery General Surgery Karli Campos RIGHT [...] 05/03/2020 Travel 05/02/2020 Anesthesia Event General Surgery Tirso Heller MD Cheema, Ivelisse, FNP 05/02/2020 Surgery General Surgery Karli Campos LIGATION OF AV MD Azul FISTULA LEFT , TDC PLACEMENT RIGHT IJ VEIN 05/02/2020 Hospital Encounter General Surgery Karli Campos MD 04/29/2020 Travel 04/27/2020 Pre-Admit Testing Pre-Admission Karli Campos Preop testing Appointment Testing MD Azul (Primary Dx) 04/27/2020 Travel 04/04/2020 Surgery General Surgery Jannette Landin, HAYLIE ANG IOGRAM, LEFT UPPER EXTREMITY FISTULAGRAM AND LEFT UPPER EXTREMITY ANGIO GRAM 04/04/2020 Anesthesia Event General Surgery Geetha Hartley MD Cheema, Ivelisse, FNP 04/04/2020 Hospital Encounter General Surgery Jannette Landin, AMY RD (end stage renal disease) ([facility]) (Primary Dx); End stage renal disease ([facility]) 04/01/2020 Hospital Encounter Radiology Jannette Landin, Preop testing 04/01/2020 Pre-Admit Testing Pre-Admission Jannette Landin, Preop testing Appointment Testing (Primary Dx) 04/01/2020 Transcribe Orders Access Jannette Landin, Other transient MD 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 02/04/2020 - Hospital Encounter General Internal Karli Campos 02/05/2020 MD Jose Francisco Chilel Salman Siraj, MD 02/03/2020 Travel 02/02/2020 Travel 01/27/2020 Hospital Encounter Radiology Manisha, Preop t esting Isaiah Martinez MD 01/27/2020 Pre-Admit Testing Pre-Admission Karli Campos Preop testing Appointment Testing MD Azul (Primary Dx) 01/27/2020 Travel 10/19/2019 Anesthesia Event General Surgery Kelly Zuñiga MD Allen, Michelle Rene, CUSTODY ASSISTANT 10/19/2019 Surgery General Surgery Karli Campos LEFT UPP MARIO Liang MD EXTERMITY SECON D STAGE BVT 10/19/2019 - Hospital Encounter General Internal Karli Campos P luannlem with 10/20/2019 Monserrat Liang MD dialysis access, Luci Felton initial encount er MD Leonor (HCC) (Primary Dx) 10/16/2019 Pre-Admit Testing Pre-Admission Karli Campos Preop testing Appointment Testing MD Azul (Primary Dx) after 09/15/2019 Surgical History Surgery Date Site/Laterality Comments CHOLECYSTECTOMY LEG SURGERY Left I&D HAND SURGERY Left MASS REMOVAL ARTERIOVENOUS GRAFT 09/23/2018 - Left PLACEMENT 09/22/2019 INSERTION, CATHETER, CENTRAL 08/24/2019 Chest/N/A Pro cedure: INSERTION VENOUS, TUNNELED, WITH PORT, ZOHREH MARY DIALYSIS CATHETER WITH C-ARM FLUOROSCOPIC -; Surg bob: Andres, GUIDANCE Karli Liang MD; L ocation: [facility] Main OR; [...] STAGE BVT; Surgeon: Karli Campos MD; Location: [facility] Main OR; Service: Vascul ar; Laterality: Left [...] ANGIOGRAM; Surg bob: Jannette Landin MD; Location: [facility] M ain OR; Service: Cardiot horacic; Laterality: [...] CREATION; Surge on: Karli Campos MD; Location: [facility] Main OR; Service: Vascul ar; Laterality: Righ t; INSERTION, TUNNELED CENTRAL 07/14/2020 Groin/N/A Proc edure: INSERTION OF VENOUS CATHETER WITH PORT, TUNNE LED DIALYSIS WITHOUT FLUOROSCOPIC CATHETER LE FT GROIN; GUIDANCE Surgeon: Karli Doe MD; L ocation: [facility] Main OR; S ervice: Vascular; Later ality: N/A; Medical devices from this surgery are in the Implants section . Medical History Medical History Date Comments Hypertension Type 2 diabetes mellitus (HCC) Left-sided weakness 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 Efe Biscoe Arrhythmia ' irregular heart be ats" Wears [...] Sign Reading Time Taken Comments Blood Pressure 177/84 07/14/2020 4:48 PM CDT Pulse 95 07/14/2020 4:48 PM CDT Temperature 36.6 C (97.9 F) 07/14/2020 4:48 PM CDT Respiratory Rate 19 07/14/2020 4:48 PM CDT Oxygen Saturation 100% 07/14/2020 4:48 PM CDT Inhaled Oxygen Concentration - - Weight 155 kg (341 lb) 07/14/2020 4:10 PM CDT Height 193 cm (6' 4") 07/14/2020 4:10 PM CDT Body Mass Index 41.51 07/14/2020 4:10 PM CDT Plan of Treatment Health Maintenance Due Date Last Done Comments DIABETES: RETINAL EYE EXAM 1998 DIABETIC FOOT EXAM 1998 COVID-19 VACCINE (#1) 2004 INFLUENZA VACCINE 04/23/2020 Implants Implanted Type Area Geophysics Teacher Device Shelf Model / Identifier Expiration Serial / Date Lot Catheter Hmodial Dura-Flow Prcrv Bsc Valved Pelbl [facility] 32cm - [id number] Central N/A: N/A ANGIODYNAMICS [id number] HOUSTO / Implanted: Qty: 1 on 08/24/2019 by Karli Campos MD at [facility] Ven[employer] INC / Catheters Catheter Hmodial Dura-Flow Prcrv Bsc Valved Pelbl Shth 28cm - [id number] Central N/A: N/A ANGIODYNAMICS [id number] / Implanted: 05/02/2020 at [facility] (Quantity not on file) [employer] / Catheters Kit Hmodial Cath Chronc Str Bsc 55cm Dura-Flow - [id number] Cent ral N/A: N/A ANGIODYNAMICS 06/22/2021 [id number] / Implanted: Qty: 1 on 07/14/2020 by Karli Campos MD at [facility] [employer] / Catheters Device Vascular Closure Vascade 6/7fr - [id number] Surgical N/A: N/A [employer] 11/23/2021 [id number] / Implanted: 04/04/2020 at [facility] (Quantity not on file) Implants ; INC / Expanders; [id number] Extenders; Surgical Wires Procedures Procedure Name Priority Date/Time Associated Comments Diagnosis OR FL < 1 HOUR Routine 07/14/2020 4:15 Results f or this PM CDT procedure are i n the results section. POC GLUCOSE Routine 07/14/2020 4:11 Results for this PM CDT procedure are i n the results section. TYPE AND SCREEN Routine 07/14/2020 2:01 Results for this PM CDT procedure are i n the results section. ECG ED PRELIMINARY Routine 07/14/2020 12:04 Resul ts for this INTERPRETATION PM CDT procedure are in the results section. COVID-19 QUALITATIVE STAT 07/14/2020 12:02 Res ults for this PCR PM CDT procedure are i n the results section. XR CHEST 1 VW PORTABLE STAT 07/14/2020 11:18 R esults for this AM CDT procedure are i n the results section. ECG 12-LEAD STAT 07/14/2020 10:53 Results for this AM CDT procedure are i n the results section. ESTIMATED GFR STAT 07/14/2020 10:22 Results fo r this AM CDT procedure are i n the results section. BASIC METABOLIC PANEL STAT 07/14/2020 10:22 Re sults for this AM CDT procedure are i n the results section. PARTIAL THROMBOPLASTIN STAT 07/14/2020 10:22 R esults for this TIME (PTT) AM CDT procedure are i n the results section. PROTHROMBIN TIME WITH STAT 07/14/2020 10:22 Re sults for this INR AM CDT procedure are i n the results section. HC COMPLETE BLD COUNT STAT 07/14/2020 10:22 Re sults for this W/AUTO DIFF AM CDT procedure are i n the results section. POC GLUCOSE Routine 07/06/2020 4:10 Results for this PM CDT procedure are i n the results section. IL AN ELECTIVE Routine 07/06/2020 2:20 Results f [...] procedure are i n the results section. IL AN ELECTIVE Routine 05/02/2020 4:08 Results f [...] procedure are i n the results section. IL AN ELECTIVE Routine 04/04/2020 12:29 Results f [...] procedure are i n the results section. IL AN ELECTIVE Routine 02/04/2020 12:05 Results f [...] Routine 10/20/2019 1:26 Results for this PM HYDRAULIC PRESS TENDER procedure are i n the results section. HEPATITIS B SURFACE AB, Routine 10/20/2019 9:15 Results for this QUANTITATIVE AM HYDRAULIC PRESS TENDER procedure are i n the results section. HEPATITIS B SURFACE Routine 10/20/2019 9:15 Resu lts for this ANTIBODY AM HYDRAULIC PRESS TENDER procedure are i n the results section. HEPATITIS B SURFACE Routine 10/20/2019 9:15 Resu lts for this ANTIGEN AM HYDRAULIC PRESS TENDER procedure are i n the results section. POC GLUCOSE Routine 10/20/2019 7:46 Results for this AM HYDRAULIC PRESS TENDER procedure are i n the results section. XR CHEST 1 VW PORTABLE Routine 10/20/2019 6:18 R esults for this AM HYDRAULIC PRESS TENDER procedure are i n the results section. HEMODIALYSIS Routine 10/19/2019 9:37 PM HYDRAULIC PRESS TENDER POC GLUCOSE Routine 10/19/2019 8:28 Results for this PM HYDRAULIC PRESS TENDER procedure are i n the results section. POC GLUCOSE Routine 10/19/2019 3:49 Results for this PM HYDRAULIC PRESS TENDER procedure are i n the results section. IL AN ELECTIVE Routine 10/19/2019 1:53 Results f or this SUPRAGLOTTIC AIRWAY PM HYDRAULIC PRESS TENDER procedur e are in the results section. POC PANEL 4 Routine 10/19/2019 10:00 Results for this AM HYDRAULIC PRESS TENDER procedure are i n the results section. ESTIMATED GFR STAT 10/19/2019 9:05 Results fo r this AM HYDRAULIC PRESS TENDER procedure are i n the results section. BASIC METABOLIC PANEL STAT 10/19/2019 9:05 Re sults for this AM HYDRAULIC PRESS TENDER procedure are i n the results section. ECG PRE/POST OP Routine 10/16/2019 1:48 Preop testing Results for this PM HYDRAULIC PRESS TENDER procedure are i n the results section. HEMOGLOBIN A1C Routine 10/16/2019 1:15 Preop testing Results for this PM HYDRAULIC PRESS TENDER procedure are i n the results section. PROTHROMBIN TIME WITH Routine 10/16/2019 1:15 Preop testing R esults for this INR PM HYDRAULIC PRESS TENDER procedure are i n the results section. PARTIAL THROMBOPLASTIN Routine 10/16/2019 1:15 Preop testing Results for this TIME (PTT) PM HYDRAULIC PRESS TENDER procedure are i n the results section. TYPE AND SCREEN Routine 10/16/2019 1:15 Preop testing Results for this PM HYDRAULIC PRESS TENDER procedure are i n the results section. HC COMPLETE BLD COUNT Routine 10/16/2019 1:15 Preop testing R esults for this W/AUTO DIFF PM HYDRAULIC PRESS TENDER procedure are i n the results section. after 09/15/2019 Results OR FL < 1 Hour (07/14/2020 4:15 PM CDT)Only the most recent of3 results within the time period is included. Specimen Narrative Performed At EXAMINATION: OR FL < 1 HOUR [facility] CLINICAL HISTORY: IMPRESSION: Fluoroscopy was provided. No radiologist present. Pl ease see procedure report for discussion of procedure, find ings and fluoroscopic time. [facility] Procedure Note Hm Interface, Radiology Results Incoming - 07/14/2020 4:56 PM CDT EXAMINATION: OR FL < 1 HOUR CLINICAL HISTORY: IMPRESSION: Fluoroscopy was provided. No radiologist present. Please see procedure report for discussion of procedure, findings and fluoroscopic time. EDGARD Performing Organization Address [facility] Phon e Number [facility] [address] [place] [address] POC glucose (07/14/2020 4:11 PM CDT)Only the most recent of19 resultswithin the time period is included. Pathologist [facility] POC glucose 76 65 - 99 mg/dL [facility] Comment: [facility] Public Message Service Supervisor Name: Alfonso Hickman Device ID: [id number] Chartable: RN Notified Specimen Blood Performing Organization Address [facility] Phon e Number [facility] DEPARTMENT OF PATHOLOGY [id number] [place] [address]. [place] [address] AND GENOMIC MEDICINE [facility] [address] [facility] [place] [address] HOSPITAL Type and screen (07/14/2020 2:01 PM CDT)Only the most recent of6 resultswithin the time period is included. Pathologist [facility] ABO grouping O [facility] Rh type POS [facility] Antibody screen (gel) NEG [facility] Specimen Plasma Performing Organization Address [facility] Phon e Number [facility] DEPARTMENT OF PATHOLOGY [address] [facility] [place] [address] AND GENOMIC MEDICINE [facility] SUGAR [facility] [address] [facility] [address] [place] [address] [facility] ECG ED Preliminary Interpretation - Not an Order (07/14/2020 12:04 PM CDT) Narrative Performed At Josep Sheehan MD 07/14/2020 1 2:21 PM ECG ED Preliminary Interpretation - Not an Order Performed by: Josep Sheehan MD Authorized by: Josep Sheehan MD ECG reviewed by ED Physician in the abse nce of a executive chef assistant: yes Interpretation: Interpretation: non-specific Rate: ECG rate: 91 ECG rate assessment: normal Rhythm: Rhythm: sinus rhythm Ectopy: Ectopy: none ST segments: ST segments: Non-specific T waves: T waves: normal COVID-19 qualitative PCR (07/14/2020 12:02 PM CDT)Only the most recent of6 resultswithin the time period is included. Interpretation Negative results do not prec lude 2019-nCoV infection and should not be used as the sole basis for treatment or other patient management decisions. Negative results must be combined with clinical observations, patient history, and epidemiological [place] information. [facility] COVID-19 qualitative Not-Detected Not-Detecte [place] PCR result d [facility] COVID-19 qualitative See link below for [place] PCR PDF Lab [facility] ReportComment: Case HOSPITAL Number: [id number] Specimen Nasopharyngeal swab Performing Organization Address City/State/ZIP Code Phon e Number [facility] DEPARTMENT OF PATHOLOGY AND [address] [place], [place] [address] [facility] [address] [place] [address] [facility] XR Chest 1 Vw Portable (07/14/2020 11:18 AM CDT)Only the most recent of4 results within the time period is included. Specimen Narrative Performed At [facility], 07/14/2020 [facility] Clinical History: Missed dialysis. Technique: Single, portable AP view ches t. Comparison: 05/02/2020 Impression: 1.Cardiomegaly with mild pulmonary edema and central p ulmonary artery enlargement. 2.No sizable pleural effusion. No pneumo thorax. 3.Intact skeleton. Procedure Note Interface, Radiology Results Incoming - 07/14/2020 11:26 AM CDT [facility], 07/14/2020 Clinical History: Missed dialysis. Technique: Single, portable AP view ches t. Comparison: 05/02/2020 Impression: 1.Cardiomegaly with mild pulmonary edema and central pulmonary artery enlargement. 2.No sizable pleural effusion. No pneumo thorax. 3.Intact skeleton. Performing Organization Address [facility]/ZIP Code Phon e Number [facility] [address] [place] [address] ECG 12 lead (07/14/2020 10:53 AM CDT)Only the most recent of2 resultswithin the time period is included. Pathologist Sig nature Ventricular rate 91 [facility] Atrial rate 91 [facility] IL interval 202 [facility] QRSD interval 84 [facility] QT interval 370 [facility] QTC interval 455 [facility] P axis 1 73 [facility] QRS axis 1 112 [facility] T wave axis 52 [facility] EKG impression Normal sinus rhythm-Left pos terior fascicular block-Abnormal ECG- In automated comparison with ECG of 04-JUL-2020 13:43,-Criteria for Anterior infarct are no longer present-Criteria for Anterolateral inf [facility]USE arct are no longer present- Specimen Narrative Performed At This result has an attachment that is no t available. Performing Organization Address [facility] Phon e Number [facility] MUSE [address] [place] [address] Estimated GFR (07/14/2020 10:22 AM CDT)Only the most recent of8 resultswithin the time period is included. Estimated GFR 5 (A) mL/min/1.73 [facility] Comment: m2 [place] Catergory Units Interpretation HOS PITAL G1 >=90 [...] lity Initiative (NKF-KDOQI) published in 2014. Specimen Plasma Performing Organization Address City/State/ZIP Code Phon e Number [facility] DEPARTMENT OF PATHOLOGY [address] [place] [address] Partial thromboplastin time, activated (07/14/2020 10:22 AM CDT)Only the most recent of6 resultswithin the time period is included. PTT 32.8 23.0 - 36.0 [facility] Comment: [facility] PTT therapeutic range for unfractionated heparin is HOSPITAL 61.0-112.0 seconds which corresponds to Anti-Xa 0.3-0.7 U/ml. Specimen Blood Performing Organization Address [facility] Phon e Number [facility] DEPARTMENT OF PATHOLOGY [address] [place] [address] Prothrombin time with INR (07/14/2020 10:22 AM CDT)Only the most recent of6 resultswithin the time period is included. Pathologist [facility] Prothrombin time 15.7 (H) 11.5 - 14.5 [facility] INR 1.3 [place] Comment: [facility] International Normalized Ratio (INR) is a therapeu [facility] monitoring tool for patients who are stable on oral anticoagulant therapy. An INR of 2.0-3.0 is suggested for deep vein thrombosis/pulmonary embolism. Specimen Blood Performing Organization Address City/[facility] Phon e Number [facility] DEPARTMENT OF PATHOLOGY [address] [place] [address] CBC with platelet and differential (07/14/2020 10:22 AM CDT)Only the most recent of8 resultswithin the time period is included. WBC 8.3 4.5 - 11.0 k/uL [facility] RBC 3.89 (L) 4.40 - 6.00 [facility] m/uL [facility] HGB 11.2 (L) 14.0 - 18.0 [facility] g/dL [facility] HCT 36.2 (L) 41.0 - 51.0 % [facility] MCV 93.1 82.0 - 100.0 fL [facility] MCH 28.8 27.0 - 34.0 pg [facility] MCHC 30.9 (L) 31.0 - 37.0 [facility] g/dL [facility] RDW - SD 57.1 (H) 37.0 - 55.0 fL [facility] MPV 10.4 6.9 - 11.0 fL [facility] Platelet count 213 150 - 400 K/uL [facility] Nucleated RBC 0.00 /100 WBC [facility] Neutrophils 69.6 (H) 39.0 - 69.0 % [facility] Lymphocytes 15.6 (L) 25.0 - 45.0 % [facility] Monocytes 7.7 0.0 - 10.0 % [facility] Eosinophils 6.7 (H) 0.0 - 5.0 % [facility] Basophils 0.2 0.0 - 1.0 % [facility] Immature granulocytes 0.2 0.0 - 1.0 % [facility] Specimen Plasma Performing Organization Address City/State/ZIP Code Phon e Number [facility] DEPARTMENT OF PATHOLOGY [address] [facility] [place] [address] AND GENOMIC MEDICINE [facility] [address] [facility] X [phone] [place] [address] Basic metabolic panel (07/14/2020 10:22 AM CDT)Only the most recent of6 results within the time period is included. Pathologist Sig nature Sodium 132 (L) 135 - 148 mEq/L [facility] Potassium 4.8 3.5 - 5.0 mEq/L [facility] Chloride 98 98 - 112 mEq/L [facility] CO2 21 (L) 24 - 31 mEq/L [facility] Anion gap 13@ANIO 7 - 15 mEq/L [facility] BUN 58 (H) 6 - 20 mg/dL [facility] Creatinine 13.54 (H) 0.70 - 1.20 mg/dL [facility] Glucose 128 (H) 65 - 99 mg/dL [facility] Calcium 10.6 (H) 8.3 - 10.2 mg/dL [facility] Specimen Plasma Performing Organization Address City/[facility] Code Phon e Number [facility] DEPARTMENT OF PATHOLOGY [id number] [place] [address] [facility] [address] [facility] [place] [address] HOSPITAL Airway (07/06/2020 2:20 PM CDT) Narrative Performed At Marisol Toledo 07/06 2:55 PM Airway Date/Time: 07/06/2020 2:20 PM Performed by: Marisol [place]edo so Authorized by: Mike Og MD Location: OR Urgency: Elective Difficult Airway: No Anesthesiologist: Mike Og MD Resident/CARE CLINICIAN/AA: [facility] Toledo Performed by: resident/CARE CLINICIAN/AA Preoxygenated with 100% O2: Yes C-spine Precautions Maintained Throughou t: Yes Mask Ventilation: Not attempted Final Airway Type: Supraglottic airway Final LMA: I-Gel LMA Size: 5 Number of Attempts at Approach: 1 Preoxygenation times five minutes on 100% FiO2. Grand Cane h IV induction. Eyes taped after loss of eyelash reflex. Size 5 iGEL placed atraumatically. Positive chest rise and positive EtCO2 with adequate s eal. No leak noted at 20 cmH2O. Ventilation adequate. No da mage to oropharynx. VSS. POC panel (07/06/2020 12:24 PM CDT)Only the most recent of2 resultswithin the time period is included. POC sodium 135 135 - 148 [facility] mmol/L [facility] POC potassium 4.6 3.5 - 5.0 [facility] mmol/L [facility] POC glucose 104 (H) 65 - 99 mg/dL [facility] Comment: [place] Public Message Service Supervisor Name: [facility] Device ID: [id number] POC hemoglobin 14.6 14.0 - 18.0 [facility] g/dL [facility] POC hematocrit 43 41 - 51 % [facility] Specimen Blood Performing Organization Address City/[facility]/ZIP Code Phon e Number [facility] DEPARTMENT OF PATHOLOGY [id number] [place] [address] AND GENOMIC MEDICINE [facility] [address] [facility] X [address] [facility] ECG Pre/Post Op (07/04/2020 1:43 PM CDT)Only the most recent of3 resultswithin the time period is included. Pathologist Sig nature Ventricular rate 104 [facility] MUSE Atrial rate 104 [facility] MUSE [place] interval 180 [facility] MUSE QRSD interval 84 [...] Organization Address City/State/ZIP Code Phon e Number [facility] MUSE [address] [place] [address] Hemoglobin A1c (07/04/2020 1:06 PM CDT)Only the most recent of4 resultswithin the time period is included. Hemoglobin A1C 6.7 (H) 4.0 - 5.6 % ROXANA VELOZ Comment: GENESIS SPENCER HbA1c cutoffs for diagnosing diabetes: HO SPITAL [...] 1 diabetes. Specimen Blood Performing Organization Address City/State/ZIP Code Phon e Number [facility] DEPARTMENT OF PATHOLOGY [address] [facility] [address] [place] [address] AND GENOMIC MEDICINE ROXANA SPENCER [address] [place] [address] H[facility] Airway (05/02/2020 4:08 PM CDT) Narrative Performed At Chantal Gates CRNA 05/02/2020 4 :09 PM Airway Date/Time: 05/02/2020 3:56 PM Performed by: Chantal Gates CRNA Authorized by: Tirso Heller MD Location: OR Urgency: Elective Difficult Airway: No Anesthesiologist: Tirso Heller MD Resident/CARE CLINICIAN/AA: Chantal Gates CRNA Performed by: resident/CARE CLINICIAN/AA Preoxygenated with 100% O2: Yes C-spine Precautions Maintained Throughou t: Yes Mask Ventilation: Easy mask (2 hands) Final Airway Type: Supraglottic airway Final LMA: I-Gel LMA Size: 5 Number of Attempts at Approach: 1 Comprehensive metabolic panel (05/02/2020 11:24 AM CDT)Only the most recent of2 resultswithin the time period is included. Sodium 133 (L) 135 - 148 mEq/L [facility] Potassium 4.1 3.5 - 5.0 mEq/L [facility] Chloride 101 98 - 112 mEq/L [facility] CO2 23 (L) 24 - 31 mEq/L [facility] Anion gap 9@ANIO 7 - 15 mEq/L [facility] BUN 51 (H) 6 - 20 mg/dL [facility] Creatinine 11.41 (H) 0.70 - 1.20 [facility] mg/dL [facility] Glucose 100 (H) 65 - 99 mg/dL [facility] Calcium 9.2 8.3 - 10.2 [facility] mg/dL [facility] Protein 7.0 6.3 - 8.3 g/dL [facility] Albumin 3.3 (L) 3.5 - 5.0 g/dL [facility] A/G ratio 0.9 0.7 - 3.8 [facility] Alkaline phosphatase 208 (H) 40 - 129 U/L [facility] AST 22 10 - 50 U/L [facility] ALT 16 5 - 50 U/L [facility] Total bilirubin 0.4 0.2 - 1.2 mg/dL [facility] Specimen Blood Performing Organization Address City/State/ZIP Code Phon e Number [facility] DEPARTMENT OF PATHOLOGY [address] [address] [facility] [place] [address] AND GENOMIC MEDICINE [facility] [address] [facility] [place] [address] [facility] Airway (04/04/2020 12:29 PM CDT) Narrative Performed At Lauren Fung CRNA 04/04/2020 12:30 PM Airway Date/Time: 04/04/2020 12:21 PM Performed by: Lauren Fung CRNA Authorized by: Geetha Hartley M D Location: OR Urgency: Elective Anesthesiologist: Geetha Hartley MD Resident/CARE CLINICIAN/AA: Lauren Fung C RNA Performed by: anesthesiologist Preoxygenated with 100% O2: Yes C-spine Precautions Maintained Throughou t: Yes Mask Ventilation: Easy mask Final Airway Type: Supraglottic airway Final LMA: I-Gel LMA Size: 5 Number of Attempts at Approach: 1 POC panel 4 (04/04/2020 10:26 AM CDT)Only the most recent of3 resultswithin the time period is included. POC sodium 129 (L) 135 - 148 [facility] mmol/L [facility] POC potassium 5.2 (H) 3.5 - 5.0 [facility] mmol/L [facility] POC hematocrit 57 (H) 41 - 51 % [facility] POC glucose 119 (H) 65 - 99 mg/dL [facility] Comment: [place] Public Message Service Supervisor Name: [facility] Device ID: [id number] POC hemoglobin 19.4 (H) 14.0 - 18.0 [facility] g/dL [facility] Specimen Blood Performing Organization Address City/State/ZIP Code Phon e Number [facility] DEPARTMENT OF PATHOLOGY [address] [facility] [place] [address] AND GENOMIC MEDICINE [facility] [address] [facility] [place] [address] [facility] XR Chest 2 Vw (04/01/2020 3:22 PM CDT)Only the most recent of2 resultswithin the time period is included. Specimen Narrative Performed At EXAMINATION: XR CHEST 2 VW [facility] CLINICAL HISTORY: Z01.818 Encounter for other prepro cedural examination, PRE OP TESTING IMPRESSION: Heart is slightly enlarged. Lungs are clear. There are no effusions. Regional skeleton is intact. [id number] Procedure Note Interface, Radiology Results Incoming - 04/01/2020 3:30 PM CDT EXAMINATION: XR CHEST 2 VW CLINICAL HISTORY: Z01.818 Encounter for other preprocedural examination, PRE OP TESTING IMPRESSION: Heart is slightly enlarged. Lungs are cl ear. There are no effusions. Regional skeleton is intact. [facility]-[id number] Performing Organization Address City/State/ZIP Code Phon e Number [facility] [address] [place] [address] CT Upper Extremity W Contrast Left (03/24/2020 10:00 PM CDT) Specimen Narrative Performed At EXAMINATION: CT UPPER EXTREMITY W CONTRA ST LEFT [facility] CLINICAL HISTORY: Abscess of bursa TECHNIQUE: [...] thyroid ult rasound on an outpatient basis. [facility]-[id number] Procedure Note Interface, Radiology Results Incoming - 03/24/2020 10:25 PM CDT EXAMINATION: CT [...] reactive/inflammatory. Right thyroid nodule can be evaluated thyroid ultrasound on an outpatient basis. [facility]-[id number] Performing Organization Address [facility] Phon e Number [facility] [address] [place] [address] Hepatitis B surface antigen (03/24/2020 10:00 AM CDT)Only the most recent of3 resultswithin the time period is included. Pathologist Sig nature Hepatitis B surface Non-reactive Non-reactive [facility] Specimen Blood Performing Organization Address [facility] Phon e Number [facility] DEPARTMENT OF PATHOLOGY [id number] [place] [address], X [address] [facility] [id number] [place] [id number] [place] [address] Lactic acid level, SEPSIS - Now and repeat 2x every 3 hours (03/24/2020 12:10 AM CDT)Only the most recent of3 resultswithin the time period is included. Pathologist Sig critical access hospital Lactic acid 0.8 0.5 - 2.2 mmol/L [facility] Specimen Blood Performing Organization Address [facility] Phon e Number [facility] DEPARTMENT OF PATHOLOGY [id number] [place] [address] X [address] [facility] [id number] [place] [address] X [address] [facility] Blood culture, aerobic & anaerobic (03/23/2020 5:13 PM CDT)Only the most recent of2 resultswithin the time period is included. Blood culture No growth after 5 days of incubation. CRISPIN VELOZ isolate Comment: HOSPITAL Specimen Information Specimen Source: Blood Specimen Site: Arm, right Specimen Blood - Arm, right Performing Organization Address [facility] Phon e Number [facility] DEPARTMENT OF PATHOLOGY AND [address] [place], [place] [address] GENOMIC MEDICINE [facility] [address] [place] [address] Us duplex venous upper extremity (03/23/2020 5:00 [...] by ACE NGUYEN at 03/23/2020 5:05 PM. [facility]-[id number] Procedure Note Hm Interface, Radiology Results Incoming [...] by HÉCTOR NGUYEN at 03/23/2020 5:05 PM. [facility]-[id number] Performing Organization Address City/State/ZIP Code Phon e Number [facility] [address] [place] [address] MRI Upper Extremity Wo Contrast Left (03/18/2020 [...] City/State/ZIP Code Phon e Number [facility] [address] [place] [address] Hepatitis B surface Ab, quantitative (02/04/2020 6:15 PM CDT)Only the most recent of2 resultswithin the time period is included. Hepatitis B surface 342.74 IU/L [facility] Ab Comment: The anti-HBs [...] to MMWR September 14, 2005/Vol. 54 (No. 16);10-15, and for healthcare workers refer to MMWR Aug/Vol. 62(No. 10);10-11. Reference Interval: anti-HBs 9.99 IU/L or less ....... Negative 10.00 IU/L or greater .... Positive Results greater than 1,000.00 IU/L are reported as gre ater than 1,000.00 IU/L. This assay should not be used for blood donor screenin g, associated re-entry protocols, or for screening Human Cell, Tissues and Cellular and Tissue-Based Products (HCT/P) . Performed by [facility] [employer], [address] [place] [id number] [email or web address], Brent Greco MD, Lab. Director Specimen Serum Performing Organization Address [facility] Phon e Number [facility] [address] [place] [address] [facility] [address] [place] [id number] Hepatitis B surface antibody (02/04/2020 6:15 PM CDT)Only the most recent of2 resultswithin the time period is included. Pathologist Sig nature Hepatitis B surface Reactive (A) Non-reactive [facility] Specimen Blood Performing Organization Address City/[facility] Phon e Number [facility] DEPARTMENT OF PATHOLOGY AND [address] [place] [phone] GENOMIC MEDICINE [address] [address] Airway (02/04/2020 12:05 PM CDT) Narrative Performed At Nori Wiseman CRNA 02/04/2020 12:05 PM Airway Date/Time: 02/04/2020 12:05 PM Performed by: Wiseman, Nori, CARE CLINICIAN Authorized by: Isaiah Dyer MD Location: OR Urgency: Elective Difficult Airway: No Anesthesiologist: Blayne Dyer MD Resident/CARE CLINICIAN/AA: Nori Wiseman CRNA Performed by: resident/CARE CLINICIAN/AA Preoxygenated with 100% O2: Yes C-spine Precautions Maintained Throughou t: Yes Mask Ventilation: Not attempted Final Airway Type: Supraglottic airway Final LMA: I-Gel LMA Size: 5 Number of Attempts at Approach: 1 Airway (10/19/2019 1:53 PM HYDRAULIC PRESS TENDER) Narrative Performed At Kelly Zuñiga MD 10/19/2019 1:54 PM Airway Performed by: Kelly Zuñiga MD Authorized by: Kelly Zuñiga MD Location: OR Urgency: Elective Difficult Airway: No Anesthesiologist: Kelly Zuñiga MD Resident/CARE CLINICIAN/AA: Lauren Fung C RNA Performed by: resident/CARE CLINICIAN/AA Preoxygenated with 100% O2: Yes C-spine Precautions Maintained Throughou t: Yes Mask Ventilation: Not attempted Final Airway Type: Supraglottic airway Final LMA: I-Gel LMA Size: 5 Number of Attempts at Approach: 1 after 09/15/2019 Insurance Payer Benefit Plan / Subscriber ID Effective Dates Phone Addre ss Type Group MEDICARE MEDICARE PART A [id number] 2015-Present [place], [place] Medicare AND B ([address] [place] [address] Advance Directives For more information, please contact: [phone] Type Date Recorded Patient Reservations Sales Agent Explanati on Advance Directives, Living Will 08/24/2019 8:35 AM and Medical Power of Certified Medication Aide
--- OUTSIDE RECORDS SUMMARY | 2020-09-15 14:33 | XMS REPORT | Clinical Summary ---
:1990 Author Organization [facility] Address [address] [place] [address] Care Team Providers Name Role Phone Sharpkimo [...] 06/29/2020 Travel 06/24/2020 Hospital Encounter Pre-Admission Testing 06/24/2020 Orders Only General Internal Medicine 06/23/2020 Travel 05/05/2020 Surgery Andres, VENOGRAM Karli Mary MD 05/04/2020 - Hospital Encounter General Internal Luci Felton Hemod ialysis 05/06/2020 Medicine MD Leonor catheter dysfunction, in itial encounter (HCC) (Primary Dx) 05/04/2020 Travel after 09/15/2019 Social History Tobacco Use Types Packs/Day Years [...] 05/04/2020 Procedures Procedure Name Priority Date/Time Associated Comments Diagnosis ANESTHESIA PERIPHERAL Routine 08/02/2020 11:51 Re sults for this BLOCK AM SIDE LASTER STAPLE procedure are i n the results section. POTASSIUM STAT 06/29/2020 10:37 Results for this AM CDT procedure are i n the results section. POCT-GLUCOSE METER Routine 06/29/2020 10:35 Resul ts for this AM CDT procedure are i n the results section. REPORT OF PROCEDURE - 06/29/2020 Result s for this ENDOSCOPY SCAN procedure are in the results section. TRANSFUSION SERVICE 06/25/2020 6:05 REPORT - SCAN PM CDT ECG 12-LEAD Routine 06/24/2020 12:33 PM CDT Procedure Note - Interface, External Ris In - 07/20/2020 1:11 PM CDT Ventricular Rate 101 BPM Atrial Rate 101 BPM P-R Interval 194 ms QRS Duration 86 ms Q-T Interval 362 ms QTC Calculation(Bazett) 469 ms P [place] 80 degrees R [place] 103 degrees T [place] 56 degrees Sinus tachycardia Right atrial enlargement Rightward axis Pulmonary disease pattern Abnormal ECG CBC W/PLT COUNT & AUTO Routine 06/24/2020 [...] are i n the results section. SARS-COV2/RT-PCR ([facility] Routine 06/24/2020 12:09 R esults for this [...] are i n the results section. SARS-COV2/RT-PCR ([facility] Routine 05/04/2020 4:57 R esults for this [...] n the results section. after 09/15/2019 Results ANESTHESIA PERIPHERAL BLOCK (08/02/2020 11:51 AM SIDE LASTER STAPLE) Narrative Performed At Shiela Ovalles MD 0 11:53 AM Peripheral Block Patient location during procedure: [facility] Start time: 06/29/2020 8:50 AM End time: 06/29/2020 9:00 AM Procedure Indication: at surgeon's reque st Preanesthetic Checklist Completed: patient identified, pre-op ev aluation, timeout performed, IV checked, risks and benefits discussed, m onitors and equipment checked, anesthesia consent given, prep site dry prior to draping and maximum sterile barriers were used: cap, mask, sterile gown, s terile gloves, and large sterile sheet Staffing Anesthesiologist: Shiela Ovalles MD Prep Prep: chlorhexidine gluconate and isopro pyl alcohol Procedures: sterile gloves, surgical mask, surgical tom t, sterile technique and prep and sterile drape applied Peripheral Nerve Block Patient position: supine Patient monitoring: EKG, HR, BP and SpO2 Laterality: right Block type: supraclavicular Injection technique: single-shot ultrasound guided - in plane, prescan was completed pr ior to procedure and needle tip was visualized throughout the entire procedure Block Dose: ropivicaine and single-shot Infiltration strength: 0.5 % Dose: 30 mL Needle Needle Localization: US guided Assessment Pain scale pre-procedure: 0 Pain scale post-procedure: 0 LOC: Sedated with meaningful contact supplemental oxygen used.no evidence of intravascular injection and no heart rate changeno paresthesia patient had no immediate complications and patient carola erated the procedure well Potassium (06/29/2020 10:37 AM CDT) Pathologist Sig nature Potassium 5.4Comment: 3.6 - 5.5 meq/L [place] Specimen slightly LABORATORY hemolyzed Specimen Blood Narrative Performed At Chamber Worker ID - ADMIN [facility] Performing Organization Address City/State/Zipcode Phone Number [facility] [address] [place] [phone] POC-Glucose meter (06/29/2020 10:35 AM CDT)Only the most recent of11 results within the time period is included. POC-Glucose Meter 93Comment: : 70 - 110 [facility] TESTED AT [facility] mg/dL [facility] [address] [address]: Chamber Worker/Technicia n ID = [id number] for Otilio Fatou Specimen Blood Performing Organization Address City/State/Zipcode Phone Number [facility] [address] [facility] MED[facility] [address] [place] [address] CENTER EKG-SCANNED (06/29/2020) Narrative Performed At [...] period is included. SARS-COV2/RT-PCR Negative Not Detected, [facility] Negative, See [facility] external report CENTER for linked test SARS-COV-2 [facility] PERFORMING LAB [facility] Specimen Other - Nasopharyngeal wall structure (b sophia structure) Narrative Performed At Negative result for this test determines that [facility] SARS-CoV-2 RNA was not present in the [...] the Act. Fact Sheet for Healthcare Providers: https://www.[employer]/sites/default/files/pro duct/documents/Fact_Sheet_HC_Providers_Lyra_SA RS-CoV-2.pdf Fact Sheet for Healthcare Patients: https://www.[employer]/sites/default/files/pro duct/documents/Fact_Sheet_Patients_Lyra_SARS-C oV-2.pdf Performing Laboratory: [place] [address] [place] [address] Performing Organization Address City/State/Zipcode Phone Number [facility] [address] [place], [place] [phone] CENTER Type and screen, automated (06/24/2020 12:09 PM CDT) [facility] ABO/RH AUTOMATED O . [facility] [place] (BEAKER) POSITIVEComment [facility] : ECHO Ab Scrn NEGATIVEComment [facility] [place] : [facility] Specimen Blood Performing Organization Address City/[facility] [address]/Zipcode Phone Number [facility] [address] [place], [place] [phone] [facility] PT/aPTT (06/24/2020 12:09 PM CDT) [facility] Protime 12.4 (H) 9.3 - 12.0 sec [facility] INR 1.15 <=5.90 [facility] PTT 27.7 23.0 - 35.0 sec [facility] Specimen Blood Narrative Performed At RECOMMENDED COUMADIN/WARFARIN INR THERAP Y RANGES [facility] STANDARD DOSE: 2.0 - 3.0 Includes: PROPHYLAXIS for venous thrombosis, systemic embolization; TREATMENT for venou s thrombosis and/or pulmonary embolus. HIGH RISK: Target INR is 2.5-3.5 for patients with mec hanical heart valves. Final Information (Auto Output) Final Information (Auto Output) Final Information (Auto Output) Performing Organization Address City/[facility] [address]/[facility] Phone Number [facility] [address] [place], [place] [phone] CBC with platelet count + automated diff (06/24/2020 12:09 PM CDT)Only the most recent of2 resultswithin the time period is included. Pathologist [facility] WBC 5.6 4.0 - 10.0 [place] [facility] K/L LABORATORY RBC 4.30 4.20 - 5.80 [place] [facility] M/L LABORATORY Hemoglobin 11.9 (L) 13.0 - 16.8 [place] [facility] GM/DL LABORATORY Hematocrit 40.1 36.0 - 50.0 % [place] [facility] MCV 93.3 82.0 - 99.0 fL [place] [facility] MCH 27.7 27.0 - 33.0 pg [facility] MCHC 29.7 (L) 32.0 - 36.0 [...] clumps noted, count appears to be normal. [place] [facility] Performing Organization Address City/State/Zipcode Phone Number [place] [facility] [address] [place], [place] [phone] Basic Metabolic Panel (06/24/2020 12:09 PM CDT)Only the most recent of2 results within the time period is included. Sodium 134 (L) 135 - 148 meq/L [place] [facility] Potassium 4.3 3.6 - 5.5 meq/L [place] [facility] Chloride 103 98 - 106 meq/L [place] [facility] CO2 20 20 - 29 meq/L [place] [facility] BUN 29 (H) 10 - 26 mg/dL [place] Creatinine 9.99 (H) 0.50 - 1.20 [place] mg/dL LABORATORY Glucose 135 (H) 70 - 110 mg/dL [place] [facility] Calcium 11.1 (H) 8.5 - 10.5 [place] mg/dL LABORATORY EGFR 7Comment: ESTIMATED mL/min/1.73 sq [place] GFR IS NOT m LABORATORY ACCURATE CREATININE CLEARANCE IN PREDICTING GLOMERULAR FILTRATION RATE. ESTIMATED GFR IS NOT APPLICABLE FOR DIALYSIS PATIENTS. Specimen Blood Narrative Performed At Chamber Worker ID - ADMIN [place] [facility] Performing Organization Address City/State/Zipcode Phone Number [facility] [address] [place], [place] [address] CARDIAC CATH REPORT - SCAN (05/10/2020 1:20 PM CDT) Narrative Performed At This result has an attachment that is no t available. Hepatitis B surface antibody (05/05/2020 8:26 PM CDT) Pathologist Sig nature Hep B S Ab 59.2 (H) <8.0 mIU/mL [facility] Specimen Blood Narrative Performed At Chamber Worker ID - ASIYA Villa [facility] Performing Organization Address City/State/Zipcode Phone Number [facility] [address] [place] [phone] CENTER Hepatitis B surface antigen (05/05/2020 8:26 PM CDT) Pathologist Sig nature HBsAg Screen Nonreactive Nonreactive [place] [facility] Specimen Blood Narrative Performed At Chamber Worker ID - ERIKA [employer] [facility] Performing Organization Address City/[facility] [address]/Zipcode Phone Number [facility] [address] [place], [place] [phone] Comprehensive metabolic panel (05/05/2020 [...] Glucose 124 (H) 70 - 110 [place] mg/dL LABORATORY Calcium 9.8 8.5 - 10.5 [place] mg/dL LABORATORY AST 75 (H) 5 - 40 U/L [place] [facility] ALT 31 5 - 50 U/L [place] [facility] EGFR 4Comment: mL/min/1.73 [place] ESTIMATED GFR IS sq LABORATORY NOT ACCURATE CREATININE CLEARANCE IN PREDICTING GLOMERULAR FILTRATION RATE. ESTIMATED GFR IS NOT APPLICABLE FOR DIALYSIS PATIENTS. Specimen Blood Narrative Performed At Chamber Worker ID - [id number] [facility] Performing Organization Address [facility] [address]/Zipcode Phone Number [facility] [address] [place], [place] [phone] Troponin I (05/04/2020 4:17 PM CDT) Pathologist Sig [place] Troponin I 0.05 0.00 - 0.15 ng/mL [facility] Specimen Blood Narrative Performed At Troponin I (TnI) levels must be interpreted in the con text of [facility] the presenting symptoms and the clinical [...] acute neurological disease, and per sistent tachyarrhythmia. Chamber Worker ID - AGONZALEZ Performing Organization Address [facility] [address]/Zipcode Phone Number [facility] [address] [place], [place] [phone] Prothrombin time/INR (05/04/2020 4:17 PM CDT) Pathologist Sig [place] Protime 11.6 9.3 - 12.0 sec [facility] INR 1.07 <=5.90 [facility] Specimen Blood Narrative Performed At RECOMMENDED COUMADIN/WARFARIN INR THERAP Y RANGES [facility] STANDARD DOSE: 2.0 - 3.0 Includes: PROPHYLAXIS for venous thrombosis, systemic embolization; TREATMENT for venou s thrombosis and/or pulmonary embolus. HIGH RISK: Target INR is 2.5-3.5 for patients with mec hanical heart valves. Final Information (Auto Output) Final Information (Auto Output) Performing Organization Address [facility] [address]/Zipcode Phone Number [facility] [address] [place], [place] [phone] Phosphorus (05/04/2020 4:17 PM CDT) Pathologist Sig [place] Phosphorus 4.6 (H) 2.5 - 4.5 mg/dL [place] [facility] Specimen Blood Narrative Performed At Chamber Worker ID - CopiunRADHA [facility] Performing Organization Address [facility] [address]/[facility] Phone Number [facility] [address] [place] [phone] Magnesium (05/04/2020 4:17 PM CDT) Pathologist Sig nature Magnesium 2.8 1.5 - 3.0 mg/dL [place] [facility] Specimen Blood Narrative Performed At Chamber Worker ID - [facility]unSELECT [facility] [place] [facility] Performing Organization Address [facility] [address]/[facility] Phone Number [facility] [address] [place] [phone] Hepatic function panel (05/04/2020 4:17 PM CDT) Pathologist Sig nature Protein, Total 9.4 (H) 6.0 - 8.5 gm/dL [place] [facility] Albumin 4.6 3.5 - 5.0 g/dL [place] [facility] Total Bilirubin 0.7 0.1 - 1.2 mg/dL [place] [facility] Bilirubin, Direct 0.4 0.0 - 0.4 mg/dL [place] [facility] Alkaline Phosphatase 235 (H) 30 - 115 U/L [place] [facility] AST 27 5 - 40 U/L [place] [facility] ALT 11 5 - 50 U/L [place] [facility] Specimen Blood Narrative Performed At Chamber Worker ID - MuseStormSARAH BETH [facility] Performing Organization Address [facility] [address]/[facility] Phone Number [facility] [address] [place] [phone] Lipid panel (05/04/2020 4:17 PM CDT) Pathologist Sig nature Triglycerides 76 mg/dL [facility] Cholesterol 79 mg/dL [place] [facility] HDL 38 mg/dL [place] [facility] LDL Calculated 26 mg/dL [place] [facility] Specimen Blood Narrative Performed At Triglyceride Reference Range: [facility] Low Risk <150 Borderline 150-199 High Risk 200-499 Very High Risk >=500 Cholesterol Reference Range: Low Risk <200 Borderline 200-239 High Risk >240 HDL Cholesterol Reference Range: Low Risk >=60 High Risk <40 LDL Cholesterol Reference Range: Optimal <100 Near Optimal 100-129 Borderline 130-159 High 160-189 Very High >=190 Chamber Worker ID - RAYO Chamber Worker ID - RAYO Chamber Worker ID - RAYO Performing Organization Address City/State/Zipcode Phone Number [facility] [address] [place], [place] [address] after 09/15/2019 Advance Directives For more information, please contact: [phone] Code Status Date Activated Date Inactivated Comments Full Code 05/04/2020 1:18 PM 05/06/2020 6:12 PM This code status was determined by: Patient
--- OUTSIDE RECORDS SUMMARY | 2020-09-15 14:35 | XMS REPORT | Continuity of Care Document ---
:1990 Author Organization [facility] t Address [address] [place] [address] Care Team Providers Name Role Phone Leonor Felton MD Primary Care Physician Malcolm Sheehan MD Attending Clinician Leonor Felton MD Attending Clinician Lambert Coppola MD Attending Clinician Margaret Carreno Attending Clinician Azul Campos MD Attending Clinician Aramis Og MD Attending Clinician Juana CULVER Attending Clinician Eloise Campos MD Attending Clinician Bravo Ovalles MD Attending Clinician ELOISE CAMPOS Attending Clinician Unavailable Damian Rosenbaum MD Attending Clinician Leonor Felton MD Attending Clinician LEONOR FELTON Attending Clinician Unavailable Jose Heller MD Attending Clinician [phone] Mary Carmen BARAHONA Attending Clinician Kate MESSER Attending Clinician Janet Hartley MD Attending Clinician Otilio WRIGHT Attending Clinician Unavailable Manisha MESSER, J. Attending Clinician Yogesh MESSER, Harmony Attending Clinician Wilmar CULVER, Paulie Attending Clinician JONATHAN Attending Clinician Unavailable DR CAT Attending Clinician Unavailable JOSE FRANCISCO Admitting Clinician Unavailable FRANCES Admitting Clinician Unavailable ELOISE CAMPOS Admitting Clinician Unavailable LEONOR FELTON Admitting Clinician Unavailable KATE Admitting Clinician Unavailable JONATHAN Admitting Clinician Unavailable DR CAT Admitting Clinician Unavailable Payers Payer Name Policy Type Policy Effective Date Expiration Date Sour ce Number MEDICAREMEDICARE PART [id number] 2015 chaz Luis AND 00:00:00 [id number] [place] [id number] ROHIT [place] [id number] 2015- 00:00:00 - M [facility]ical [facility] Problems Condition Condition Condition Status Onset Resolution Last Treating Co mments Source Name Details Category Date Date Treatment Clinician Date Failure of Failure of Disease Active 2020- [facility] [facility] 00 Hemodialys Hemodialys Disease Active C [facility] is is 8-12 [facility] catheter catheter 00:00: Medica l dysfunctio dysfunctio 00 Ce nter n n Cellulitis Cellulitis Disease Active 2019- [place] left of left 7- [facility] upper arm upper arm 00:00: st 00 Problem Problem Disease Active [place] with with 1-28 [facility] dialysis dialysis 00:00: [...] Stop Date Source Natural father Hypertension Man Mormonism Natural father Kidney disease [place] Natural father Stroke [facility] thodist Natural mother No Known Problems [place] [facility] Paternal grandfather Diabetes [place] Social History Social Habit Start Date Stop Date Quantity Comments Source History of tobacco Current smoker [place] use History [facility] Meth odist Alcohol Std Drinks History [facility] Meth odist Alcohol Binge Sex Assigned At [facility] Cigarettes smoked 2020-07-15 2020-07-15 Donovan Jamesist current (pack per 00:00:00 00:00:00 day) - Reported Cigarette 2020-07-15 2020-07-15 [place] Method ist pack-years 00:00:00 00:00:00 Tobacco use and 2020-06-23 2020-06-23 Never used [facility] 00:00:00 00:00:00 [facility] Alcohol intake 2020-06-23 2020-06-23 Current [facility] es - 00:00:00 00:00:00 non-drinker of Medical Ce nter alcohol (finding) History [facility] 2019-08-24 2019-08-24 1 [place] Meth odist Alcohol Frequency 00:00:00 00:00:00 Smoking Status Start Date Stop Date Source Former smoker 2020-07-15 00:00:00 2020-07-15 00:00:00 Donovan Jamesist Never smoker [facility] Medications Ordered Filled Start Stop Current Ordering Indication Dosage Frequency Signature Comments Components Source Medication Medication Date Date Medication? Clinician (SIG) Name Name insulin 2019-09 Yes 30U QD Inject Man ASPART 0-22 30-60 [facility] (NovoLOG) 19:19: Units st 100 unit/mL 38 under the injection skin nightly. SLIDING SCALE multivitami 2019-09 Yes 1{tbl} QD Take 1 [place] 0-22 tablet by [facility] (THERAGRAN) 19:19: mouth st tablet 38 daily. metoprolol 2019-09 Yes 100mg Q.[id number] Take 100 Man tartrate 0-22 [id number] mg by Meth marjan (LOPRESSOR) 19:19: 3D mouth 3 st 100 mg 38 (three) tablet times a day. apixaban 2019-09 Yes 5mg Q.5D Take 5 mg [place] (Eliquis) 5 0-22 by mouth 2 Me thodi mg tablet 19:19: (two) st 38 times a day. hydrALAZINE 2019-09 Yes 25mg Take 25 mg Man (APRESOLINE 0-22 by mouth Meth marjan ) 25 MG 19:19: as needed. st tablet 38 HYDROcodone 2019-09 2020- No acute pain 1{tbl} Q6H Take 1 Man -acetaminop 0-14 10-22 tablet by Me thodi hen (NORCO) 00:00: 00:[address] 5-325 mg 00 :00 every [...] - tablet 14:56: mouth Medical 52 daily. [place] sevelamer 2019-09 Yes 800mg Q.[id number] Take [address] (RENVELA) 0-07 [id number] mg by Sulaiman es - 800 mg 14:56: 3D mouth 3 Medical tablet 52 (three) Center times daily . insulin 2019-09 Yes 30U QD Inject [facility] aspart 0-07 30-60 [facility] - U-100 14:56: Units Medical (NOVOLOG) 52 subcutaneo Cent er 100 unit/mL usly injection nightly. midodrine 2019-09 Yes 10mg Q.[id number] Take [address] (PROAMATINE 0-07 [id number] by mouth 3 [facility] - ) 10 MG 14:56: 3D (three) Medical tablet 52 times Center daily. thiamine 2019-09- No 50mg QD Take [address] (VITAMIN 0-06-23 by mouth [facility] - B-1) 50 MG 11:52: 00:00 daily. Medi negrita tablet 25 :00 Center senna-docus 2019-09- No 2{tbl} QD Take [address] ate 006-23 tablets by [facility] - (SENOKOT S) 11:51: 00:00 mouth Medi negrita 8.6-50 mg 47 :00 nightly. Center per tablet ondansetron 2019-09- No 4mg Take [address] (ZOFRAN) 4 006-23 by mouth Luke s - MG tablet 11:51: 00:00 as needed Me dical 38 :00 for Center Nausea. INSULIN 2019-09- No Inject [facility] ASPART 0-06-23 subcutaneo [facility] - PROT/INSULN 11:50: 00:00 usly. Medi negrita ASP 45 :00 Center (INSULIN ASP PRT-INSULIN ASPART SUBQ) famotidine 2019-09- No 20mg Q.5D Take [address] (PEPCID) 20 006-23 by mouth 2 L ukes - MG tablet 11:49: 00:00 (two) Medica l 51 :00 times Center daily. darbepoetin 2019-09- No 60ug Inject [address] ephraim-polyso 0- 10- mcg [facility] - rbate 11:49: 00:00 subcutaneo Medic al (ARANESP) 42 :00 usly once. Cent er 60 mcg/0.3 mL Syrg injection cloNIDine 2019-09- No .1mg Q.5D Take 0.[address] HCl 0- 10 mg by [facility] - (CATAPRES) 11:49: 00:00 mouth 2 Med ical 0.1 MG 25 :00 (two) Center tablet times daily . acetaminoph 2019-09- No 1{tbl} Take [address] en-codeine 006-23 tablet by Sulaiman es - (TYLENOL 11:48: [...] HYDROCODONE 2019-0 2020- No Q.5D Take by [place] BITARTRATE 05-02- mouth 2 Metho di ORAL 10:29: 00:00 (two) st 22 :00 times a day. HYDROcodone 2019- 2020- No acute pain 1{tbl} Q6H Take 1 Man -acetaminop 05-02 tablet by Me sravanthi castro (NORCO) 00:00: 23:[address] 5-325 mg 00 :00 every 6 per tablet (six) hours as needed for moderate pain for up to 30 doses .acute pain. Max Daily Amount: 4 tablets apixaban 2019- 2020- No deep venous 5mg Q.5D Take 1 Man (ELIQUIS) 5 -07 02- thrombosis tablet (5 Methodi mg tablet 00:00: 23:59 mg total) st 00 :00 by mouth 2 (two) times a day for 90 days .blood clot in a deep vein of the extremitie s. apixaban 2019-0 2020- No 5mg Q.5D Take [address] (ELIQUIS) 5 7- 10- by mouth 2 L ukes - mg Tab 00:00: 23:59 (two) Medical tablet 00 :00 times Center daily. aspirin 325 2019-0 2020- No 325mg QD Take 325 Man MG tablet 03-25 07-03 mg by Methodi 18:55: 00:[address] 58 :00 daily. metoprolol 2020-0 2020- No 100mg Q.[id number] Take 1 Man tartrate 03-25 08- [id number] tablet Me fishman (LOPRESSOR) 00:00: 23:59 3D ([address] 100 mg 00 :00 total) by tablet mouth 3 (three) times a day for 30 days. vancomycin 2020-0 2020- No 1250mg Q.[id number] Infuse Man 1,250 mg in 03-25- [id number] 1,250 mg [facility]i sodium 00:00: 23:[address] chloride 00 :00 venous 0.9% 250 mL catheter 3 IVPB (three) times a week for 15 days. apixaban 2019- No deep venous 10mg Q.5D Take 2 Man (ELIQUIS) 5 03-25 07-09 thrombosis tablets [facility] mg tablet 00:00: 23:59 ([address] 00 :00 total) by mouth 2 (two) times a day for 6 days .blood clot in a deep vein of the [facility] s. VELPHORO 2018-09 Yes 1500mg Q.[id number] Chew 1,500 Man 500 mg -12 [id number] mg 3 [facility] tablet,chew 00:00: 3D (three) st able 00 times a day with meals. midodrine 2018-09 Yes 10mg Q.[id number] Take 10 mg Man (PROAMATINE -11 [id number] by mouth 3 [facility] ) 10 MG [...] st tablet 00 sevelamer 2018-09 Yes 4{tbl} Q.[id number] Take 4 Man (RENVELA) 0-28 [id number] tablets by [facility] 800 mg 00:00: 3D [...] :00 (two) tablet times a day. HYDROcodone 2019- No 1{tbl} Take [address] -acetaminop 10-13 tablet by Shanon castro (NORCO 00:00: 00:00 mouth Medic al 5-325) 00 :00 every 4 Center 5-325 mg (four) per tablet hours as needed. HYDROcodone 2019- No 1{tbl} Take 1 [place] -acetaminop -10-19 tablet by Me sravanthi castro ([employer]) 00:00: 00:[address] 5-325 mg 00 :00 per tablet SPS, WITH 2019- No 60mg QD Take [address] SORBITOL, 10-09 by mouth [facility] - 00:00: 00:00 daily. Medical gram/60 mL 00 [...] al 00 :00 Center VELPHORO Yes 1{tbl} Q.[id number] Take [address] 500 mg Chew 09-23 [id number] tablet by Cristine - 00:00: 3D mouth 3 Medical 00 (three) Center times daily WITH MEALS. LANTUS 2017-09- No 10U QD Inject 10 [facility] SOLOSTAR -06-23 Units [facility] - U-100 00:00: 00:00 subcutaneo Medic al INSULIN 100 00 :00 [facility] unit/mL (3 daily. mL) InPn metoprolol 2017-09 Yes 100mg Q.[id number] Take [address] (TOPROL-XL) 2-14 [id number] mg by L ukes - 100 MG [...] 25mg Take [address] (APRESOLINE 2-06 by mouth Luke s - ) 25 MG 00:00: as needed Medic al tablet 00 For SBP> Center 165. amLODIPine 2017-09- No 5mg Q.5D Take [address] (NORVASC) 5 2-06 10- by mouth 2 L ukes - MG [...] Time Observation Value Comments Source Systolic blood 2020-07-14 16:48:02 177 mm[Hg] [place] [facility] pressure Diastolic blood 2020-07-14 16:48:02 84 mm[Hg] [place] [facility] pressure Heart rate 2020-07-14 16:48:02 95 /min Man [facility]ism Body temperature 2020-07-14 16:48:02 36.61 Esther [place] [facility] Respiratory rate 2020-07-14 16:48:02 19 /min [place] [facility] Oxygen saturation in 2020-07-14 16:48:02 100 /min Man [facility]ism Arterial blood by Pulse oximetry Body height 2020-07-14 16:10:00 193 cm [place] [facility] Body weight 2020-07-14 16:10:00 154.677 kg Man [facility]ism BMI 2020-07-14 16:10:00 41[facility]51 [facility] 2020-06-29 12:20:00 194 mm[Hg] [facility] pressure [facility] Center Diastolic blood 2020-06-29 12:20:00 127 mm[Hg] [facility] Center Heart rate 2020-06-29 12:20:00 94 /min [facility] Respiratory rate 2020-06-29 12:20:00 25 /min [facility] Oxygen saturation in 2020-06-29 12:20:00 99 /min [facility] Arterial blood by Medical Ce nter Pulse oximetry Body temperature 2020-06-29 10:26:00 37.06 Esther [facility] Body height 2020-06-23 11:55:00 193 cm [facility] Body weight 2020-06-23 11:55:00 151 kg [facility] BMI 2020-06-23 11:55:00 40.52 kg/m2 [facility] Procedures Procedure Date / Time Performing Clinician Source Performed ANESTHESIA PERIPHERAL 2020-08-02 11:51:24 Shiela Ovalles [facility] [place] < 1 HOUR 2020-07-14 16:15:00 Karli Campos POC GLUCOSE 2020-07-14 16:11:00 Luci Feltonodist TYPE AND SCREEN 2020-07-14 14:01:00 Donovan Dyer Meth odist Dorian Martinez ECG ED PRELIMINARY 2020-07-14 12:04:41 Josep Sheehan INTERPRETATION COVID-19 QUALITATIVE PCR 2020-07-14 12:02:00 Josep Sheehan XR CHEST 1 VW PORTABLE 2020-07-14 11:18:07 Josep Sheehan ECG 12-LEAD 2020-07-14 10:53:59 Josep Sheehan Az thodi HC COMPLETE BLD COUNT 2020-07-14 10:22:00 Josep Sheehan W/AUTO DIFF PROTHROMBIN TIME WITH INR 2020-07-14 10:22:00 Josep Sheehan PARTIAL THROMBOPLASTIN 2020-07-14 10:22:00 Josep Sheehan TIME (PTT) BASIC METABOLIC PANEL 2020-07-14 10:22:00 Josep Sheehan ESTIMATED GFR 2020-07-14 10:22:00 Josep Sheehan Az thodist POC GLUCOSE 2020-07-06 16:10:00 Karli Camposist IA AN ELECTIVE 2020-07-06 14:20:32 Leopoldogermán Marisol Donovan Me thodist SUPRAGLOTTIC AIRWAY [place] POC PANEL 2020-07-06 12:24:00 Karli Campos BASIC METABOLIC PANEL 2020-07-06 12:18:00 Yolis Dyer PROTHROMBIN TIME WITH INR 2020-07-06 12:18:00 Tray Dyer PARTIAL THROMBOPLASTIN 2020-07-06 12:18:00 Josue Dyer on Mormonism TIME (PTT) Dorian Martinez ESTIMATED GFR 2020-07-06 12:18:00 Donovan Dyer Meth odist Dorian Martinez ECG PRE/POST OP 2020-07-04 13:43:01 Mike Og COVID-19 QUALITATIVE PCR 2020-07-04 13:06:00 Karli Campos HC COMPLETE BLD COUNT 2020-07-04 13:06:00 Karli Campos W/AUTO DIFF TYPE AND SCREEN 2020-07-04 13:06:00 Karli Campos HEMOGLOBIN A1C 2020-07-04 13:06:00 Mike Og POTASSIUM 2020-06-29 10:37:00 AnnayeNathan cho [facility] POCT-GLUCOSE METER 2020-06-29 10:35:00 Karli Campos [facility] REPORT OF PROCEDURE - 2020-06-29 00:00:00 Provider, Default [facility] - ENDOSCOPY SCAN Scanning [facility] TRANSFUSION SERVICE 2020-06-25 18:05:02 Provider, Default [facility] - REPORT - SCAN Scanning [facility] ECG 12-LEAD 2020-06-24 12:33:34 Unknown, Hl7 Doctor [facility] SARS-COV2/RT-PCR ([facility] & 2020-06-24 12:09:00 Karli Campos [facility] REF LABS) [facility] BASIC METABOLIC PANEL (7) 2020-06-24 12:09:00 Karli Campos [facility] PT/APTT 2020-06-24 12:09:00 Karli Campos [facility] TYPE AND SCREEN, 2020-06-24 12:09:00 Karli Campos [facility] AUTOMATED [facility] CBC W/PLT COUNT & AUTO 2020-06-24 12:09:00 Karli Campos [facility] CARDIAC CATH REPORT - 2020-05-10 13:20:59 Myranda Akins [facility] SCAN Scanning [facility] POCT-GLUCOSE METER 2020-05-06 [facility]:25[facility] 2020-05-06 04:39:00 Luci Felton [facility] POCT-GLUCOSE METER 2020-05-05 22:14:00 Luci Felton [facility] HEPATITIS B SURFACE 2020-05-05 20:26:00 [facility] ANTIGEN [facility] HEPATITIS B SURFACE 2020-05-05 20:26:00 Ngoc [facility] POCT-GLUCOSE METER 2020-05-05 18:38:00 [facility]SE METER 2020-05-05 17:19:00 Luci Felton [facility] VENOGRAM 2020-05-05 16:00:00 Karli Campos [facility] POCT-GLUCOSE METER 2020-05-05 12:56:00 Luci Felton [facility] POCT-GLUCOSE METER 2020-05-05 12:13:00 [facility] POCT-GLUCOSE METER 2020-05-05 11:20:00 Luci Fetlon [facility] POCT-GLUCOSE METER 2020-05-05 06:06:00 Luci Felton [facility] COMPREHENSIVE METABOLIC 2020-05-05 05:42:00 [facility] POCT-GLUCOSE METER 2020-05-04 20:48:00 Luci Felton [facility] SARS-COV2/RT-PCR ([facility] & 2020-05-04 16:57:00 [facility] REF LABS) [facility] TROPONIN I 2020-05-04 16:17:00 [facility] BASIC METABOLIC PANEL (7) 2020-05-04 16:17:00 [facility] HEPATIC FUNCTION PANEL 2020-05-04 16:17:00 [facility] PROTHROMBIN TIME/INR 2020-05-04 16:17:00 [facility] LIPID PANEL 2020-05-04 16:17:00 [facility] MAGNESIUM 2020-05-04 16:17:00 [facility] PHOSPHORUS 2020-05-04 16:17:00 [facility] CBC W/PLT COUNT & AUTO 2020-05-04 16:17:00 [facility] XR CHEST 1 VW PORTABLE 2020-05-02 18:18:18 Tirso Heller [facility] [place] POC GLUCOSE 2020-05-02 17:31:00 Karli Campos [place] < 1 HOUR 2020-05-02 17:00:12 Karli Campos IA AN ELECTIVE 2020-05-02 16:08:37 Chantal Gates Meth odist SUPRAGLOTTIC AIRWAY POC PANEL 2020-05-02 11:33:00 Karli Campos COMPREHENSIVE METABOLIC 2020-05-02 11:24:00 Karli Campos PANEL PROTHROMBIN TIME WITH INR 2020-05-02 11:24:00 Karli Campos PARTIAL THROMBOPLASTIN 2020-05-02 11:24:00 Karli Campos TIME (PTT) ESTIMATED GFR 2020-05-02 11:24:00 Karli Campos COVID-19 QUALITATIVE PCR 2020-04-27 14:30:00 Rich Dyer HC COMPLETE BLD COUNT 2020-04-27 14:13:00 Karli Campos W/AUTO DIFF TYPE AND SCREEN 2020-04-27 14:13:00 Karli Campos HEMOGLOBIN A1C 2020-04-27 14:13:00 Donovan Dyer POC GLUCOSE 2020-04-04 13:42:00 Kate Leannmanuelayaya Donovan Aldana odist CV FISTULOGRAM 2020-04-04 13:26:00 Kate [facility] Donovan Aldana odist [place] < 1 HOUR 2020-04-04 13:15:00 Kate [facility] Man Meth odist IA AN ELECTIVE 2020-04-04 12:29:51 Lauren Fung Az thodist SUPRAGLOTTIC AIRWAY BASIC METABOLIC PANEL 2020-04-04 10:26:00 Jannette Landin ESTIMATED GFR 2020-04-04 10:26:00 Kate Ravin Donovan Aldana odist POC PANEL 4 2020-04-04 10:26:00 [facility] Donovan Aldana odmagda XR CHEST 2 VW 2020-04-01 15:22:00 Kate Leannyale [facility] Donovan Aldana odist COVID-19 QUALITATIVE PCR 2020-04-01 14:12:00 Jnanette Landin HC COMPLETE BLD COUNT 2020-04-01 14:12:00 Jannette Landinist W/AUTO DIFF TYPE AND SCREEN 2020-04-01 14:12:00 Donovan Dyer ECG PRE/POST OP 2020-04-01 13:42:56 Kate Leannmanuela Donovan Aldana odist POC GLUCOSE 2020-03-25 17:07:00 Luci Felton thodist POC GLUCOSE 2020-03-25 08:51:[address] thodist [address] UPPER EXTREMITY W 2020-03-24 22:00:46 Homa Nolasco [facility]ism CONTRAST LEFT POC GLUCOSE 2020-03-24 20:48:00 Luci Felton Me thodist XR CHEST 1 VW PORTABLE 2020-03-24 19:06:13 Homa Nolasco on Mormonism POC GLUCOSE 2020-03-24 17:11:00 Luci Felton Me thodist POC GLUCOSE 2020-03-24 14:05:00 Luci Felton Me thodist HC COMPLETE BLD COUNT 2020-03-24 12:35:00 Fior Chaudharyist W/AUTO DIFF PROTHROMBIN TIME WITH INR 2020-03-24 12:35:00 Fior Chaudhary PARTIAL THROMBOPLASTIN 2020-03-24 12:35:00 Fior Chaudhary on [facility]ism TIME (PTT) BASIC METABOLIC PANEL 2020-03-24 12:35:00 Fior Chaudhary ESTIMATED GFR 2020-03-24 12:35:00 Fior Chaudhary Meth odist HEPATITIS B SURFACE 2020-03-24 10:00:00 Alexandra Grossman Mormonism ANTIGEN LACTIC ACID LEVEL, SEPSIS 2020-03-24 00:10:00 Yvette Nguyen [facility]ism - NOW AND REPEAT 2X EVERY [place] 3 HOURS HEMODIALYSIS 2020-03-24 00:07:39 Alexandra Grossman Met hodist LACTIC ACID LEVEL, SEPSIS 2020-03-23 21:00:00 TyYvette Mormonism - NOW AND REPEAT 2X EVERY [place] 3 HOURS COVID-19 QUALITATIVE PCR 2020-03-23 20:30:00 TyYvette [place] BLOOD CULTURE, AEROBIC & 2020-03-23 17:13:00 Yvette Nguyen ANAEROBIC [place] COMPREHENSIVE METABOLIC 2020-03-23 17:13:00 Yvette Nguyen Mormonism PANEL [place] HC COMPLETE BLD COUNT 2020-03-23 17:13:00 Yvette Nguyen n Mormonism W/AUTO DIFF [place] LACTIC ACID LEVEL, SEPSIS 2020-03-23 17:13:00 TyYvette - NOW AND REPEAT 2X EVERY [place] 3 HOURS ESTIMATED GFR 2020-03-23 17:13:00 Ty Yvette Man Meth odist [place] US DUPLEX VENOUS UPPER 2020-03-23 17:00:34 Ty Yvette Salas on Mormonism EXTREMITY LEFT [place] MRI UPPER EXTREMITY WO 2020-03-18 14:36:21 Lambert Rosenbaum CONTRAST LEFT POC GLUCOSE 2020-02-05 16:08:00 Luci Felton Me thodist POC GLUCOSE 2020-02-05 08:12:00 Luci Felton Me thodist POC GLUCOSE 2020-02-04 21:13:00 Luci Felton Me thodist HEPATITIS B SURFACE 2020-02-04 18:15:00 Homa Nolasco ANTIGEN HEPATITIS B SURFACE AB, 2020-02-04 18:15:00 Homa Nolasco QUANTITATIVE POC GLUCOSE 2020-02-04 16:55:00 Luci Felton Me thodist HEMODIALYSIS 2020-02-04 15:35:26 Homa Nolasco Meth odist POC GLUCOSE 2020-02-04 13:06:00 Karli Campos IA AN ELECTIVE 2020-02-04 12:05:06 Nori Wiseman SUPRAGLOTTIC AIRWAY ECG 12-LEAD 2020-02-04 11:29:24 Donovan Dyer POC GLUCOSE 2020-02-04 10:56:00 Karli Campos POC PANEL 4 2020-02-04 10:54:00 Karli Campos BASIC METABOLIC PANEL 2020-02-04 10:50:00 Yolis Dyer ESTIMATED GFR 2020-02-04 10:50:00 Donovan Dyer XR CHEST 2 VW 2020-01-27 14:32:08 Donovan Dyer PARTIAL THROMBOPLASTIN 2020-01-27 14:04:00 Karli Campos TIME (PTT) PROTHROMBIN TIME WITH INR 2020-01-27 14:04:00 Karli Campos HC COMPLETE BLD COUNT 2020-01-27 14:04:00 Karli Campos W/AUTO DIFF TYPE AND SCREEN 2020-01-27 14:04:00 Katty Lentz Met rima HEMOGLOBIN A1C 2020-01-27 14:04:00 Katty Lentz Met rima COVID-19 QUALITATIVE PCR 2020-01-27 14:00:00 Karli Campos POC GLUCOSE 2019-10-20 13:26:00 Luci Felton Me thodist HEPATITIS B SURFACE 2019-10-20 09:15:00 Homa Nolasco ANTIGEN HEPATITIS B SURFACE AB, 2019-10-20 09:15:00 Homa Nolasco QUANTITATIVE POC GLUCOSE 2019-10-20 07:46:00 Luci Felton Me thodist XR CHEST 1 VW PORTABLE 2019-10-20 06:18:18 Maksim Coffman Ann HEMODIALYSIS 2019-10-19 21:37:58 Homa Nolasco odist POC GLUCOSE 2019-10-19 20:28:00 Luci Felton Me thodist POC GLUCOSE 2019-10-19 15:49:00 Luci Felton Me thodist IA AN ELECTIVE 2019-10-19 13:53:21 Kelly Zuñiga SUPRAGLOTTIC AIRWAY POC PANEL 4 2019-10-19 10:00:00 Karli Campos BASIC METABOLIC PANEL 2019-10-19 09:05:00 Karli Campos ESTIMATED GFR 2019-10-19 09:05:00 Karli Camposist ECG PRE/POST OP 2019-10-16 13:48:14 Donovan Dyer HC COMPLETE BLD COUNT 2019-10-16 13:15:00 Karli Campos W/AUTO DIFF TYPE AND SCREEN 2019-10-16 13:15:00 Karli Campos PARTIAL THROMBOPLASTIN 2019-10-16 13:15:00 Karli Campos TIME (PTT) PROTHROMBIN TIME WITH INR 2019-10-16 13:15:00 Karli Campos HEMOGLOBIN A1C 2019-10-16 13:15:00 Donovan Dyer Plan of Care Planned Activity Planned Date Details Comments Source Future Scheduled 2023-05-[address] [facility] Test 00:00:00 (procedure) [code = [facility] [id number]] Future Scheduled 2020-05-[address] [facility] - Test 00:00:00 (#1) [code = [facility] Center INFLUENZA VACCINE (#1)] Future Scheduled 2020-04-23 INFLU[place]ZA VACCINE [place] [facility] Test 00:00:00 [code = INFLUENZA VACCINE] Future Scheduled 2016-12-[address] [facility] Test 00:00:00 WELLNESS (YEAR 2 or Medical Center FIRST YEAR if no IPPE) [code = MEDICARE ANNUAL WELLNESS (YEAR 2 or FIRST YEAR if no IPPE)] Future Scheduled 2004 COVID-19 VACCINE Man [facility] Test 00:00:00 (#1) [code = COVID-19 VACCINE (#1)] Future Scheduled 1998 DIABETES: RETINAL [place] [facility] Test 00:00:00 EYE EXAM [code = DIABETES: RETINAL EYE EXAM] Future Scheduled 1998 DIABETIC FOOT EXAM [place] [facility] Test 00:00:00 [code = DIABETIC FOOT EXAM] Encounters Start End Encounter Admission Attending Care Care Encounter Source Date/Time Date/Time Type Type Clinicians Facility Department ID 2019-01-07 Inpatient [facility] [id number] [facility] 11:16:20 2020-07-14 2020-07-14 Outpatient LUCI FELTON [facility] [id number] [place] 00:00:00 00:00:[id number] 2020-07-06 2020-07-06 Outpatient FRANCES, [facility] 021 [id number] [place] 00:00:00 00:00:00 IMRAN [id number] 2020-07-04 2020-07-04 Outpatient FRANCES, [facility] [id number] [place] 00:00:00 00:00:00 IMRAN [address] 2020-06-22 2020-06-22 Outpatient ROSENBAUM, [facility] [id number] [place] 00:00:00 00:00:00 VINCENT [address] 2020-06-01 2020-06-01 Inpatient [facility] [id number] 15:33:00 13:44:00 [facility] 2020-05-25 2020-05-25 Outpatient ROSENBAUM, [facility] [id number] [place] 00:00:00 00:00:00 VINCENT [address] 2020-05-03 2020-05-03 Outpatient ROSENBAUM, [facility] [id number] [place] 00:00:00 00:00:00 VINCENT [address] 2020-05-02 2020-05-02 Outpatient FRANCES, [facility] [id number] [place] 00:00:00 00:00:00 IMRAN 979 Method i st 2020-04-27 2020-04-27 Outpatient FRANCES, [facility] [id number] [place] 00:00:00 00:00:00 IMRAN [address] 2020-04-04 2020-04-04 Outpatient KATE, [facility] 021 [id number] [place] 00:00:00 00:00:00 UTTAM [address] 2020-04-01 2020-04-01 Outpatient KATE, [facility] [id number] [place] 00:00:00 00:00:00 UTTAM [address] 2020-04-01 2020-04-01 Outpatient KATE, [facility] [id number] [place] 00:00:00 00:00:00 UTTAM [address] 2020-03-23 2020-03-25 Inpatient LUCI FELTON [facility] 064 [id number] [place] 00:00:00 00:00:[address] 2020-03-23 2020-03-23 Outpatient ROSENBAUM, [facility] [id number] [place] 00:00:00 00:00:00 VINCENT [address] 2020-03-18 2020-03-18 Outpatient ROSENBAUM, [facility] [id number] [place] 00:00:00 00:00:00 VINCENT [address] 2020-03-11 2020-03-11 Outpatient ROSENBAUM, [facility] [id number] [place] 00:00:00 00:00:00 VINCENT [address] 2020-02-04 2020-02-05 Outpatient LUCI FELTON [facility] 021 [id number] [place] 00:00:00 00:00:00 906 Method i 2020-01-27 2020-01-27 Outpatient FRANCES, [facility] [id number] [place] 00:00:00 00:00:00 IMRAN 472 Method i 2020-01-27 2020-01-27 Outpatient WOJCIECHOWS [facility] [id number] [place] 00:00:00 00:00:00 KI, 294 Method i DORIAN 2019-10-19 2019-10-20 Outpatient LUCI FELTON [facility] [id number] [place] 00:00:00 00:00:00 730 Method i 2019-08-24 2019-08-24 Outpatient FRANCES [facility] 021 [id number] [place] 00:00:00 00:00:00 IMRAN [address] 2019-07-24 2019-07-24 Outpatient MHSE MHSE 7508 [facility] 10:54:00 [facility]:54:[facility]-08 2019-07-08 Outpatient MHSE MHSE 7509 [place] 12:34:00 12:34:[address] [facility] 2019-03-20 2019-03-20 Outpatient MHSE MHSE 7507 MH 16:06:00 16:06:[address] [facility] 2019-03-20 2019-03-20 Outpatient MHSE MHSE [id number] MH 12:22:00 12:22:00 [facility] 2019-02-27 2019-02-27 Outpatient MHSE MHSE 7506 MH 11:11:00 11:11:00 Alberto luis [facility] 2019-01-21 2019-01-21 Outpatient MHSE SE 7505 09:45:00 09:45:00 Alberto gonzalez [facility] 2018-01-28 2018-01-28 Outpatient EDUARDO OLGUIN [facility] [id number] [place] 07:49:00 23:59:00 [facility]ica l Center Results Test Test Test Results Result Source Description Time Comments Comments ANESTHESIA Shiela Ovalles MD [facility]AL 10 08/02/2020 11:53 [facility] BLOCK 11:51:24 AMPeripheral Block Patient Medical location during procedure: Center holding areaStart time: 06/29/2020 8:50 AMEnd time: 06/29/2020 9:00 AM Procedure Indication: at surgeon's request Preanesthetic ChecklistCompleted: patient identified, pre-op evaluation, timeout performed, IV checked, risks and benefits discussed, monitors and equipment checked, anesthesia consent given, prep site dry prior to draping and maximum sterile barriers were used: cap, mask, sterile gown, sterile gloves, and large sterile sheet StaffingAnesthesiologist: Shiela Ovalles MD PrepPrep: chlorhexidine gluconate and isopropyl alcoholProcedures: sterile gloves, surgical mask, surgical hat, sterile technique and prep and sterile drape applied Peripheral Nerve BlockPatient position: supinePatient monitoring: EKG, HR, BP and SwD6Okiaobocjo: rightBlock type: supraclavicularInjection technique: single-shotultrasound guided - in plane, prescan was completed prior to procedure and needle tip was visualized throughout the entire procedureBlock Dose: ropivicaine and single-shotInfiltration strength: 0.5 %Dose: 30 mL NeedleNeedle Localization: US guided AssessmentPain scale pre-procedure: 0Pain scale post-procedure: 0LOC: Sedated with meaningful contactsupplemental oxygen used.no evidence of intravascular injection and no heart rate changeno paresthesiapatient had no immediate complications and patient tolerated the procedure well ECG 12 lead 2020-07-14 19:26:25 Test Item Value Reference Range Interpretation Comme nts Ventricular rate (test code = 253) 91 Atrial rate (test code = 255) 91 IA interval (test code = 266) 202 QRSD interval (test code = 260) 84 QT interval (test code = 264) 370 QTC interval (test code = 265) 455 P axis 1 (test code = 267) 73 QRS axis 1 (test code = 268) 112 T wave axis (test code = 270) 52 EKG impression (test code = 273) Normal sinus rhythm-Left posterior fascicular block-Abnormal ECG-In automated comparison with ECG of 04-JUL-2020 13:43,-Criteria for Anterior infarct are no longer present-Criteria for Anterolateral infarct are no longer present- Donovan MethodistCOVID-19 qualitative [id number] 18:31:28 Test Item Value Reference Range Interpretation Comments Interpretation (test Negative results do code = 7043667) not preclude 2019-nCoV infection and should not be used as the sole basis for treatment or other patient management decisions. Negative results must be combined with clinical observations, patient history, and epidemiological information. COVID-19 qualitative Not-Detected Not-Detected PCR result (test code = 09983-5) COVID-19 qualitative See link below for C ase Number: PCR (test code = PDF Lab Report [id number]) Donovan MethodistOR [place] < 1 [id number] 16:53:41Hm Interface, Radiology Results - 07/14/2020 4:56 PM CDTEXAMINATION: OR [place] < 1 HOURCLIN ICAL HISTORY:IMPRESSION:Fluoroscopy was provided. No radiologist present. Please see procedure report for discussion of procedure, findings and fluoroscopic time.[facility]-Yovani JamesistPOC icsqeke5320-22-69 16:13:16 Test Item Value Reference Range Interpretation Comments POC glucose (test 76 mg/dL 65-99 Propagator Laborer N alonzo: Alfonso code = 45692-8) EricDevice I D: [id number] able: RN Notified Donovan MethodistType and [id number] 15:37:00 Test Item Value Reference Range Interpretation Comments ABO grouping (test code = 883-9) O Rh type (test code = 51057-0) POS Antibody screen (gel) (test code = NEG 890-4) Donovan MethodistECG ED Preliminary Interpretation - Not an [id number] 12:04:41Josep Sheeahn MD 07/14/2020 12:21 [facility] ED Preliminary Interpretation - Not an OrderPerformed by: Josep Sheehan MDAuthorized by: Josep Sheehan MD ECG reviewed by ED Physician in theabsence of a toy maker: yes Interpretation: Interpretation: non-specific Rate: ECG rate: 91 ECG rate assessment: normal Rhythm: Rhythm: sinus rhythm Ectopy: Ectopy: none ST segments: ST segments: Non-specificT waves: T waves: normal [place] MethodistBasic metabolic [id number] 11:41:24 Test Item Value Reference Range Interpretation Comments Sodium (test code = 2951-2) 132 135- 148 mEq/L L Potassium (test code = 2823-3) 4.8 3.5- 5.0 mEq/L Chloride (test code = 2075-0) 98 98- 112 mEq/L CO2 (test code = 2027-9) 21 24- 31 mEq/L L Anion gap (test code = 68981-7) 13@ANIO 7- 15 mEq/L BUN (test code = 3094-0) 58 mg/dL 6-20 H Creatinine (test code = 2160-0) 13.54 mg/dL 0.7-1.2 H Glucose (test code = 2345-7) 128 mg/dL 65-99 H Calcium (test code = 02984-5) 10.6 mg/dL 8.3-10.2 H Lab Interpretation (test code = Abnormal 45602-2) [place] MethodistEstimated [id number] 11:41:24 Test Item Value Reference Range Interpretation Comments Estimated GFR (test 5 mL/min/1.73 m2 A Caterg orotilio Units code = 5488) InterpretationG 1 >=90 Mee l or highG2 60-89 Mildly decrease dG3a 45-59 Mil dly to moderately decr iydzkC7c 30-44 Moderately to s everely decreasedG4 15-29 Severe ly decreasedG5 <15 Kidney miko lureThe eGFR was calcul ated using the Chron ic Kidney Disease Epidemiology Collaboration ( CKD-EPI) equation. Interpretation is based on recommendati ons of the National [facility]-Kidn ey Disease Outcome s Quality Initiat lizz (NKF-KDOQI) pub lished in 2013. Lab Interpretation Abnormal (test code = 08067-3) Man MethodistPartial thromboplastin time, [id number] 11:30:06 Test Item Value Reference Range Interpretation Comments PTT (test code = 32.8 23.0- 36.0 sec PTT thera peutic range for 3173-2) unfractionated heparin is61.0-112.0 se conds which corresponds to Anti-Xa0.3-0.7 U/ml. Man MethodistProthrombin time with [id number] 11:29:58 Test Item Value Reference Range Interpretation Comments Prothrombin time (test 15.7 11.5- 14.5 sec H code = 5902-2) INR (test code = 1.3 The Interna tional 51778-1) Normalized Rati o (INR) is a therapeuti c monitoring tool for patients who ar e stable on oral anticoagulant t herapy. An INR of 2.0-3 .0 is suggested for d eep vein thrombosis/pulm onary embolism. Lab Interpretation Abnormal (test code = 89647-1) Man MethodistXR Chest 1 Vw [id number] 11:23:19Hm Interface, Radiology Results Incoming - 07/14/2020 11:26 AM CDTSINGLE VIEW CHEST, 07/14/2020Clinical History: Missed dialysis.Technique: Single, portable AP view chest.Comparison: 05/02/2020Impression:1.Cardiomegaly with mild pulmonary edema and central pulmonary artery enlargement.2.No sizable pleural effusion. No pneumothorax.3.Intact skeleton.Man MethodistCBC with platelet and pkyuwuubuuhf0480-53-81 11:22:35 Test Item Value Reference Range Interpretation Comments WBC (test code = 73895-6) 8.3 4.5- 11.0 k/uL RBC (test code = 10922-8) 3.89 m/uL 4.4-6 L HGB (test code = 718-7) 11.2 g/dL 14-18 L HCT (test code = 4544-3) 36.2 % 41-51 L MCV (test code = 787-2) 93.1 fL 82-100 MCH (test code = 785-6) 28.8 pg 27-34 MCHC (test code = 786-4) 30.9 g/dL 31-37 L RDW - SD (test code = 64179-0) 57.1 fL 37-55 H MPV (test code = 70998-7) 10.4 fL 6.9-11 Platelet count (test code = 213 K/uL 150-400 51726-6) Nucleated RBC (test code = 00629-7) 0.00 /100 WBC Neutrophils (test code = 92054-8) 69.6 % 39-69 H Lymphocytes (test code = 30831-6) 15.6 % 25-45 L Monocytes (test code = 74347-6) 7.7 % 0-10 Eosinophils (test code = 86674-4) 6.7 % 0-5 H Basophils (test code = 34689-3) 0.2 % 0-1 Immature granulocytes (test code = 0.2 % 0-1 19725-4) Lab Interpretation (test code = Abnormal 36647-8) [facility]ist[facility] [id number] 10:30:25 Test Item Value Reference Range Interpretation Comments POC sodium (test code = 135 mmol/L 713-174 9413-0) POC potassium (test 4.6 mmol/L 3.5-5 code = 6298-4) POC glucose (test code 104 mg/dL 65-99 H Opera tor Name: = 2339-0) Jorgito Cuba ID : [id number] POC hemoglobin (test 14.6 g/dL 14-18 code = 718-7) POC hematocrit (test 43 % 41-51 code = 4544-3) Lab Interpretation Abnormal (test code = 13028-3) [facility] CenterXkomrtgwrLszszw3383-18-40 14:20:32Marisol Toledo 07/06/2020 2:55 PMAirway Date/Time: 07/06/2020 2:20 PMPerformed by: Marisol ToledooAuthorized by: Mkie Og MD Location: ORUrgency: ElectiveDifficult Airway: No Anesthesiologist: Mike Og, DAVONesident/INSPECTOR PACKER/AA: Rodrigo ToledoaPerformed by: resident/INSPECTOR PACKER/AAPreoxygenated with 100% O2: Yes C-spine Precautions Maintained [...] cmH2O. Ventilation adequate. No damage to oropharynx. VSS.Donovan VillavicencioHemoglobin [id number] 15:25:16 Test Item Value Reference Range Interpretation Comments Hemoglobin A1C (test 6.7 % 4-5.6 H HbA1c c utoffs for code = 02652-1) diagnosing diabetes:4.0% - 5.6% = normal5.7% - 6.4% = increased risk for diabetes (prediabetes)9> =6.5% = uchlxmzp2Uhca s for glycemic contro l (ADA 2016)< 7.0% Ta rget for non adults with nivia betes. More or less stringent targe ts may be appropriate for individual eleanor ents. <7.5% Target for Children and adolescents wit h type 1 diabetes. Lab Interpretation (test Abnormal code = 81544-8) Donovan Alvarado Pre/Post [id number] 14:47:56 Test Item Value Reference Range Interpretation Comments Ventricular rate (test 104 code = 253) Atrial rate (test code 104 = 255) IA interval (test code 180 = 266) QRSD [...] in initial forces of Lateral leads- Donovan VillavicencioRabqwbvcgUnyrqtjto6830-68-93 11:09:00 Test Item Value Reference Range Interpretation Comments Potassium (test code = 5.4 meq/L 3.6-5.5 Speci men 2823-3) slightly hemolyzed JOHN (test code = JOHN) Propagator Laborer ID - ADMIN Lab Interpretation Normal (test code = 42978-7) [facility] 11:09:00 Test Item Value Reference Range Interpretation Comments POTASSIUM (BEAKER) 5.4 meq/L 3.6-5.5 Specimen slightly (test code = 379) hemolyzed Propagator Laborer ID - ADMINPOC-Glucose qxmih1143-08-45 10:48:00 Test Item Value Reference Range Interpretation Comments POC-Glucose Meter (test 93 mg/dL 70-110 : TE STED AT SLSL code = 1538) [address], [facility] [address]: Propagator Laborer/Techni oscar ID = [id number] for Melani Yañez cca Lab Interpretation (test Normal code = 92536-1) [facility] HospitalPOCT-GLUCOSE [id number] 10:48:00 Test Item Value Reference Range Interpretation Comments POC-GLUCOSE METER 93 mg/dL 70-110 : TESTED A T [address] (BEAKER) (test code = [address], 1538) [facility] [address]: Propagator Laborer/Techni oscar ID = [id number] for Fatou Walden KOU-ISSKSKT6621-60-07 00:00:00Ordered by an unspecified provider.[facility] (Asymptomatic ONLY)2020-06-25 00:02:00 Test Item Value Reference Range Interpretation Comments SARS-COV2/RT-PCR Negative Not Detected, (test code = Negative, See 01077-4) external report for linked test SARS-COV-2 [facility] PERFORMING LAB (test code = 87744-9) JOHN (test code = Negative result for [...] of the Act. Fact Sheet for Healthcare Providers:https://www.[employer]/sites/default/f ernestine/product/documents/F act_Sheet_HC_Providers_L axr_NNFH-PdY-9.pdf Fact Sheet for Healthcare Patients:https://www.[employer]/sites/default/fi les/product/documents/Fa ct_Sheet_Patients_Lyra_S ARS-CoV-2.pdf Performing Laboratory:[facility], [place] [id number] [place], [place] [address]ARS-COV2/RT-PCR ([facility])2020-06-25 00:02:00 Test Item Value Reference Range Interpretation Comments SARS-COV2/RT-PCR (test Negative Not Detected, Negative, code = 4423510) See external report for linked test SARS-COV-[address] [facility] (test code = 2395817) Negative result for this test determines that [...] 564(g) of the Act.Fact Sheet for Healthcare Providers:https://www.[employer]/sites/default/files/product/documents/Fact_Shee e_TQ_Hzdhletby_Myum_GXYZ-QdB-4.pdfFact Sheet for Healthcare Patients:https://www.[employer]/sites/default/files/product/ documents/Txhc_Iedlh_Qngznfxa_Ssgj_DBXP-UmQ-6.pdfPerforming Laboratory:[facility] [facility] [address], [place] [address]FBJ with platelet count + automated [id number] 14:04:00 Test Item Value Reference Range Interpretation [...] MM L 777-3) MPV (test code = 81496-5) 9.3 fL 6-11.5 nRBC (test code = [...] normal. Lab Interpretation (test Abnormal code = 90198-7) [facility] W/PLT COUNT & AUTO [id number] 14:04:00 Test Item Value Reference Range Interpretation [...] (test code = 890-4) [facility] Metabolic [id number] 13:11:00 Test Item Value Reference Range Interpretation Comments Sodium (test code = 134 meq/L 135-148 L 2951-2) Potassium (test code = 4.3 meq/L 3.6-5.5 2823-3) Chloride (test code = 103 meq/L 98-106 2075-0) CO2 (test code = 20 meq/L 20-29 2028-9) BUN (test code = 29 mg/dL 10-26 H 3094-0) Creatinine (test code 9.99 mg/dL 0.5-1.2 H = 2160-0) Glucose (test code = 135 mg/dL 70-110 H 2345-7) Calcium (test code = 11.1 mg/dL 8.5-10.5 H 69038-0) EGFR (test code = 7 mL/min/1.73 [place] [address]-2) NOT ACCURATE CREATININE CLEARANCE IN PREDICTING GLOMERULAR FILTRATION RATE . ESTIMATED GFR I S NOT APPLICABLE FOR DIALYSIS PATIENTS. JOHN (test code = JOHN) Propagator Laborer ID - ADMIN Lab Interpretation Abnormal (test code = 43275-8) [facility] METABOLIC [id number] 13:11:00 Test Item Value Reference Range Interpretation Comments SODIUM (BEAKER) 134 meq/L 135-148 L (test code = 381) POTASSIUM (BEAKER) 4.3 meq/L 3.6-5.5 (test code = 379) CHLORIDE (BEAKER) 103 meq/L 98-106 (test code = 382) CO2 (BEAKER) (test 20 meq/L -29 code = 355) BLOOD UREA NITROGEN 29 [...] S NOT APPLICABLE FOR DIALYSIS PATIEN TS. Propagator Laborer ID - ADMINPT/hQMP4257-99-22 13:10:00 Test Item Value Reference Range Interpretation Comments Protime (test code = 12.4 9.3- 12.0 sec H 5902-2) INR (test code = 1.15 <=5.90 6301-6) PTT (test code = 27.7 23.0- 35.0 sec 86437-2) JOHN (test code = JOHN) RECOMMENDED COUMADIN/WARFARIN INR THERAPY RANGESSTANDARD DOSE: 2.0 - 3.0 Includes: PROPHYLAXIS for venous thrombosis, systemic embolization; TREATMENT for venous thrombosis and/or pulmonary embolus.HIGH RISK: Target INR is 2.5-3.5 for patients with mechanical heart valves.Final Information (Auto Output)Final Information (Auto Output)Final Information (Auto Output) Lab Interpretation Abnormal (test code = 62738-8) [facility] HospitalPT/[id number] 13:10:00 Test Item Value Reference Range Interpretation [...] (Auto Output)Final Information (Auto Output)Final Information (Auto Output)POCT-GLUCOSE METER 2020-05-06 11:43:00 Test Item Value Reference Range Interpretation Comments POC-GLUCOSE METER 159 mg/dL 70-110 H : TESTED A T [facility] [address] (BEAKER) (test code [address], = 1538) [facility] [address]: Propagator Laborer/Techni oscar ID = [id number] for Makayla Cardenas Hepatitis B surface tzrkqscx0538-16-18 11:33:00 Test Item Value Reference Range Interpretation Comments Hep B S Ab (test code = 59.2 <8.0 mIU/mL H 96846-5) JOHN (test code = JOHN) Propagator Laborer ID - ASIYA C Lab Interpretation (test Abnormal code = 79949-2) [facility]HEPAT[facility]IS B SURFACE [id number] 11:33:00 Test Item Value Reference Range Interpretation Comments HEPATITIS B SURFACE ANTIBODY 59.2 mIU/mL <8.0 H (BEAKER) (test code = 647) Propagator Laborer ID - ASIYA CPOCT-GLUCOSE [id number] 04:50:00 Test Item Value Reference Range Interpretation Comments POC-GLUCOSE METER 140 mg/dL 70-110 H : TESTED A T [address] [address] (BEAKER) (test code [address], = 1538) [place] [address]: Propagator Laborer/Techni oscar ID = [id number] for Obvaibhav syl, Ifeyinwa POCT-GLUCOSE [id number] 22:25:00 Test Item Value Reference Range Interpretation Comments POC-GLUCOSE METER 117 mg/dL 70-110 H : TESTED A T [address] (BEAKER) (test code [address], = 1538) [place] [address]: Propagator Laborer/Techni oscar ID = [id number] for Obvaibhav syl, Ifolindainjames Hepatitis B surface [id number] 21:34:00 Test Item Value Reference Range Interpretation Comments HBsAg Screen (test code Nonreactive Nonreactive = 5195-3) JHON (test code = JOHN) Propagator Laborer ID - ERIKA Lab Interpretation (test Normal code = 49815-0) [facility] SUR[facility] [id number] 21:34:00 Test Item Value Reference Range Interpretation Comments HEPATITIS B SURFACE ANTIGEN (2) Nonreactive Nonreactive (BEAKER) (test code = 2585) Propagator Laborer ID - ERIKAPOCT-GLUCOSE OLZQE3625-33-65 18:50:00 Test Item Value Reference Range Interpretation Comments POC-GLUCOSE METER 107 mg/dL 70-110 : TESTED A T [facility] [address] (BEAKER) (test code [address], = 1538) [place] [address]: Propagator Laborer/Techni oscar ID = [id number] for Millie Ojeda POCT-GLUCOSE [id number] 17:31:00 Test Item Value Reference Range Interpretation Comments POC-GLUCOSE METER 64 mg/dL 70-110 L : TESTED A T [address] (BEAKER) (test code = [address], 1538) [place] [address]: Propagator Laborer/Techni oscar ID = [id number] for Millie Ojeda SARS-COV2/RT-PCR ([facility])2020-05-05 16:35:00 Test Item Value Reference Range Interpretation Comments SARS-COV2/RT-PCR (test Negative Not Detected, Negative, code = 6384409) See external report for linked test SARS-COV-[address] [facility] (test code = 9760189) Negative result for this test determines that [...] 564(g) of the Act.Fact Sheet for Healthcare Providers:https://www.[employer]/sites/default/files/product/documents/Fact_Shee u_SV_Eiugmcpad_Kuqa_XSYQ-EpB-0.pdfFact Sheet for Healthcare Patients:https://www.[employer]/sites/default/files/product/ documents/Anrq_Fvijk_Mewqizqu_Wpwq_MYCH-PpT-7.pdfPerforming Laboratory:[facility], [place] [address]REKH-NXODSRE METER 2020-05-05 13:07:00 Test Item Value Reference Range Interpretation Comments POC-GLUCOSE METER 116 mg/dL 70-110 H : TESTED A T [address] (BEAKER) (test code [address], = 1538) [place] [address]: Propagator Laborer/Techni oscar ID = [id number] for Eloisa Ojedainor POCT-GLUCOSE [id number] 12:24:00 Test Item Value Reference Range Interpretation Comments POC-GLUCOSE METER 55 mg/dL 70-110 L : TESTED A T [address] (BEAKER) (test code = [address], 1538) [place] [address]: Propagator Laborer/Techni oscar ID = [id number] for Eloisa Ojedainor POCT-GLUCOSE [id number] 11:38:00 Test Item Value Reference Range Interpretation Comments POC-GLUCOSE METER 51 mg/dL 70-110 L : TESTED A T [address] (BEAKER) (test code = [address], 1538) [place] [address]: Propagator Laborer/Techni oscar ID = [id number] for Eloisa Ojedainor Comprehensive metabolic [id number] 06:51:00 Test Item Value Reference Range Interpretation Comments Protein, Total (test 7.6 6.0- 8.5 gm/dL code = 2885-2) Albumin (test code = 3.7 g/dL 3.5-5 71353-9) Alkaline Phosphatase 222 U/L 30-115 H (test [...] Calcium (test code = 9.8 mg/dL 8.5-10.5 77697-1) AST (test code = 75 U/L 5-40 H 1920-8) ALT (test code = 31 U/L 5-50 1742-6) EGFR (test code = 4 mL/min/1.73 [place] [address]-9) NOT ACCURATE CREATININE CLEARANCE IN PREDICTING GLOMERULAR FILTRATION RATE . ESTIMATED GFR I S NOT APPLICABLE FOR DIALYSIS PATIENTS. JHON (test code = JOHN) Propagator Laborer ID - [id number] Lab Interpretation Abnormal (test code = 66400-2) [facility] HospitalCOMPREHENSIVE METABOLIC [id number] 06:51:00 Test Item Value Reference Range Interpretation [...] S NOT APPLICABLE FOR DIALYSIS PATIEN TS. Propagator Laborer ID - [id number] [id number] 06:23:00 Test Item Value Reference Range Interpretation Comments POC-GLUCOSE METER 104 mg/dL 70-110 : TESTED A T [facility] [address] (BEAKER) (test code [address], = 1538) [place] [address]: Propagator Laborer/Techni oscar ID = [id number] for Nael Hughes ph POCT-GLUCOSE [id number] 21:00:00 Test Item Value Reference Range Interpretation Comments POC-GLUCOSE METER 176 mg/dL 70-110 H : TESTED A T [facility] [address] (BEAKER) (test code [address], = 1538) [place] [address]: Propagator Laborer/Techni oscar ID = [id number] for Nael Hughes ph Troponin [id number] 17:22:00 Test Item Value Reference Range Interpretation Comments Troponin I (test code = 0.05 ng/mL 0-0.15 15959-5) JOHN (test code = JOHN) Troponin I [...] AGONZARADHAZ Lab Interpretation (test Normal code = 56214-8) [facility] HospitalTROP[facility]IN [id number] 17:22:00 Test Item Value Reference Range Interpretation [...] failure, acidosis, acute neurological disease, and persistent tachyarrhythmia.Propagator Laborer ID - MIGUELZLipid panel 2020-05-04 17:17:00 Test Item Value Reference Range Interpretation Comments Triglycerides (test 76 mg/dL code = 2571-8) Cholesterol (test 79 mg/dL code = 2093-3) HDL (test code = 38 mg/dL 5-9) LDL Calculated (test 26 mg/dL code = 17713-2) JOHN (test code = JOHN) Triglyceride Reference Range: Low Risk <150 Borderline 150-199 High Risk 200-499 Very High Risk >=500 Cholesterol Reference Range: Low Risk <200 Borderline 200-239 High Risk >240 HDL Cholesterol Reference Range: Low Risk >=60 High Risk <40 LDL Cholesterol Reference Range: Optimal <100 Near Optimal 100-129 Borderline 130-159 High 160-189 Very High >=190 Propagator Laborer ID - ALENALEZOperator ID - ALENALEZOdelaneyator ID - ALENARO [facility] HospitalHepatic function [id number] 17:17:00 Test Item Value Reference Range Interpretation Comments Protein, Total (test code 9.4 6.0- 8.5 gm/dL H = 2885-2) Albumin (test code = 4.6 g/dL 3.5-5 69689-0) Total Bilirubin (test 0.7 mg/dL 0.1-1.2 code = 1975-2) Bilirubin, Direct (test 0.4 mg/dL 0-0.4 code = 1968-7) Alkaline Phosphatase 235 U/L 30-115 H (test code = 6768-6) AST (test code = 1920-8) 27 U/L 5-40 ALT (test code = 1742-6) 11 U/L 5-50 JOHN (test code = JOHN) Propagator Laborer ID - RAYO Lab Interpretation (test Abnormal code = 06983-2) [facility] HospitalLIPID [id number] 17:17:00 Test Item Value Reference Range Interpretation [...] Borderline 130-159 High 160-189 Very High >=190 Propagator Laborer ID - ALENALEZOperator ID - ALENALEZOdelaneyator ID - RAYO HEPATIC FUNCTION [id number] 17:17:00 Test Item Value Reference Range Interpretation [...] (test code = 11 U/L 5-50 347) Propagator Laborer ID - [id number] 17:15:00 Test Item Value Reference Range Interpretation Comments Magnesium (test code = 2.8 mg/dL 1.5-3 33676-9) JOHN (test code = JOHN) Propagator Laborer ID - RAYO Lab Interpretation (test Normal code = 75029-1) [facility] HospitalMAGNESIUM2020-08-12 17:15:00 Test Item Value Reference Range Interpretation Comments MAGNESIUM (BEAKER) (test code = 2.8 mg/dL 1.5-3.0 627) Propagator Laborer ID - RAYOBASIC METABOLIC [id number] 17:13:00 Test Item Value Reference Range Interpretation [...] S NOT APPLICABLE FOR DIALYSIS PATIEN TS. Propagator Laborer ID - [id number] 17:11:00 Test Item Value Reference Range Interpretation Comments Phosphorus (test code = 4.6 mg/dL 2.5-4.5 H 2777-1) JOHN (test code = JOHN) Propagator Laborer ID - RAYO Lab Interpretation (test Abnormal code = 36155-5) [facility] HospitalPHOSPHORUS2020-08-12 17:11:00 Test Item Value Reference Range Interpretation Comments PHOSPHORUS (BEAKER) (test code = 4.6 mg/dL 2.5-4.5 H 604) Propagator Laborer ID - RAYOProthrombin time/[id number] 17:06:00 Test Item Value Reference Range Interpretation [...] Output) Lab Interpretation Normal (test code = 18274-7) [facility] HospitalPROTHROMBIN TIME/[id number] 17:06:00 Test Item Value Reference Range Interpretation [...] Information (Auto Output)CBC W/PLT COUNT & AUTO [id number] 16:50:00 Test Item Value Reference Range Interpretation [...] 0-0 PERCENT (BEAKER) (test code = 2801) [id number] 16:08:37PateChantal padron CRNA 05/02/2020 4:09 PMAirwayDate/Time: 05/02/2020 3:56 PMPerformed by: Chantal Gates CRNAAuthorized by: Tirso Heller MD Location: ORUrgency: [facility] rway: No Anesthesiologist: Tirso Heller MDResident/LINO/AA: Chantal Gates CRNAPerformed by: resident/LINO/AAPreoxygenated with 100% O2: Yes C-spine Precautions Maintained Throughout: Yes Mask Ventilation: Easy mask (2 hands)Final Airway Type: Supraglottic airwayFinal LMA: I-GelLMA Size: 5Number of Attempts at Approach: 1[facility] MethodistComprehensive metabolic [id number] 11:59:06 Test Item Value Reference Range Interpretation Comments Sodium (test code = 2951-2) 133 135- 148 mEq/L L Potassium (test code = 2823-3) 4.1 3.5- 5.0 mEq/L Chloride (test code = 5-0) 101 98- 112 mEq/L CO2 (test code = 2028-9) 23 24- 31 mEq/L L Anion gap (test code = 62648-4) 9@ANIO 7- 15 mEq/L BUN (test code = 3094-0) 51 mg/dL 6-20 H Creatinine (test code = 2160-0) 11.41 mg/dL 0.7-1.2 H Glucose (test code = 2345-7) 100 mg/dL 65-99 H Calcium (test code = 87881-2) 9.2 mg/dL 8.3-10.2 Protein (test code = 2885-2) 7.0 g/dL 6.3-8.3 Albumin (test code = 1751-7) 3.3 g/dL 3.5-5 L A/G ratio (test code = 1759-0) 0.9 0.7-3.8 Alkaline phosphatase (test code = 208 U/L 40-129 H 6768-6) AST (test code = 1920-8) 22 U/L 10-50 ALT (test code = 1742-6) 16 U/L 5-50 Total bilirubin (test code = 0.4 mg/dL 0.2-1.2 1974-10) Lab Interpretation (test code = Abnormal 92545-1) [place] MethodistPO panel [id number] 10:11:15 Test Item Value Reference Range Interpretation Comments POC sodium (test code = 129 mmol/L 135-148 L 2947-0) POC potassium (test 5.2 mmol/L 3.5-5 H code = 6298-4) POC hematocrit (test 57 % 41-51 H code = 4544-3) POC glucose (test code 119 mg/dL 65-99 H Opera tor Name: = 2339-0) Jorgito Cuba ID : [id number] POC hemoglobin (test 19.4 g/dL 14-18 H code = 718-7) Lab Interpretation Abnormal (test code = 60672-7) [place] WmjziysbvOkoqro5746-92-04 12:29:51Lauren Fung, INSPECTOR PACKER 04/04/2020 12:30 PMAirwayDate/Time: 04/04/2020 12:21 PMPerformed by: Lauren Fung, CRNAAuthorized by: Geetha Hartley MD Location: ORUrgency: ElectiveAnesthesiologist: Geetha Hartley, DAVONesident/INSPECTOR PACKER/AA: Lauren Fung CRNAPerformed by: anesthesiologistPreoxygenated with 100% O2: Yes C-spine Precautions Maintained Throughout: Yes Mask Ventilation: Easy maskFinal Airway Type: Supraglottic airwayFinal LMA: I-GelLMA Size: 5Number of Attempts at Approach: 1[facility] MethodistXR Chest 2 [id number] 15:27:15Hm Interface, Radiology Results 04/01/2020 3:30 PM CDTEXAMINATION: XR CHEST 2 VWCLINICAL HISTORY: Z01.818 Encounter for other preprocedural examination, PRE OP TESTINGIMPRESSION:Heart is slightly enlarged. Lungs are clear. There are no effusions. Regional skeleton is intact.[id number] [place] MethodistBlood culture, aerobic & dtvolnxmt9795-06-56 01:33:08 Test Item Value Reference Range Interpretation Comments Blood culture No growth Specimen isolate (test after 5 days InformationSpe [facility]eren code = 600-7) of Source: BloodS pecimen incubation. Site: Arm, righ t [place] MethodistCT Upper Extremity W Contrast [id number] 22:22:43Hm Interface, Radiology Results 03/24/2020 10:25 PM [...] evaluated with thyroid ultrasound on an outpatient basis.[facility]-CS76IRHOUsufqtp MethodistHepatitis B surface dgxegfu7308-38-78 10:56:18 Test Item Value Reference Range Interpretation Comments Hepatitis B surface Ag (test Non-reactive Non-reactive code = 5195-3) [place] MethodistLactic acid level, SEPSIS - Now and repeat 2x every 3 hours 2020-03-24 00:31:48 Test Item Value Reference Range Interpretation Comments Lactic acid (test code = 48905-1) 0.8 mmol/L 0.5-2.2 [place] MethodistUs duplex venous upper xdiukahjh0895-72-12 17:06:14Hm Interface, Radiology Results 03/23/2020 5:09 PM [...] by YVETTE NGUYEN at 03/23/2020 5:05 PM. [facility]-[id number] MethodistI Upper Extremity Wo Contrast [id number] 14:43:27Hm Interface, Radiology Results - 03/18/2020 2:46 PM CDTEXAMINATION: MRI UPPER EXTREMITY [...] extensor tendon mechanism.4.Additional findings and details as above.Man ErikaistHepatitis B surface Ab, inqzfoqlkcja2662-74-29 09:31:55 Test Item Value Reference Range Interpretation [...] refer to MMWR August 242004/Vol. 54(No . 16);-, and f or healthcare work ers refer to MMWR 2012/Vol. 62(No . 10);-19.Refere nce Interval: anti- HBs 9.99 IU/L or less .. ..... Egasxklj28.00 I U/L or greater .... PositiveResults greater than 1,000.00 I U/L are reported as gre ater than 1,000.00 IU/L. This assay should no t be used for blood donor screening, asso ciated re-entry protoc ols, or for screening H uman Cell, Tissues a nd Cellular and Tissue-Based Pr oducts (HCT/P).Perform ed by [facility],[address],[place] [address] hqk .[employer], Brent callejas MD, Lab. Director [place] ErikaistHepatitis B surface lncxejrc3903-99-88 22:34:38 Test Item Value Reference Range Interpretation Comments Hepatitis B surface Ab (test code = Reactive Non-reactive A 63821-3) Lab Interpretation (test code = Abnormal 70759-6) [facility] HospitalOvrtrplgkKhwhpd3007-57-28 12:05:06Nori Wiseman CRNA 02/04/2020 12:05 PMAirwayDate/Time: 02/04/2020 12:05 PMPerformed by: Nori Wiseman CRNAAuthorized by: Dorian Dyer MD Location: ORUrgency: ElectiveDifficult Airway:No Anesthesiologist: Dorian Dyer, William/INSPECTOR PACKER/AA: Nori Wiseman CRNAPerformed by: resident/LINO/AAPreoxygenated with 100% O2: Yes C-spine Precautions Maintained Throughout: Yes Mask Ventilation: Not attemptedFinal Airway Type: Supraglottic airwayFinal LMA: I-GelLMA Size: 5 Number of Attempts at Approach: 1Hnicanor JamesOafknmqaiFcgbcw9837-60-37 13:53:21 Kelly Zuñiga MD 10/19/2019 1:54 PMAirwayPerformed by: Kelly Zuñiga V. MDAuthorized by: Kelly Zuñiga MD Location: ORUrgency: ElectiveDifficult Airway: No Anesthesiologist: Kelly Zuñiga V., William/INSPECTOR PACKER/AA: Lauren Fung CRNAPerformed by: resident/INSPECTOR PACKER/AA Preoxygenated with 100% O2: Yes C-spine Precautions Maintained Throughout: Yes Mask Ventilation: Not attemptedFinal Airway Type: Supraglottic airwayFinal LMA: I-GelLMA Size: 5Number of Attempts at Approach: 1[facility] Lucio, CV ACCESS, [id number] 10:40:00FINAL REPORT Procedure title: Tunneled right internal [...] MDReport Verified Date/Time: 10/27/2018 10:40:38 Reading Location: [place] [id number] Angio Body Reading Room [facility] [id number] 10:36:00 Test Item Value Reference Range Interpretation Comments [facility] (test No anaerobes isolated code = 1095) POCT-GLUCOSE [id number] 18:17:00 Test Item Value Reference Range Interpretation Comments POC-GLUCOSE METER 129 mg/dL 70-110 H TESTED AT [address] ([facility]) (test code [address] [facility] [place] = 1538) [address] BASIC METABOLIC [id number] 14:45:00 Test Item Value Reference Range Interpretation [...] 697) EGFR (BEAKER) (test 11 mL/min/1.73 ESTIMA AMANDA GFR IS code = 1092) sq m NOT ACCURATE CREATININE CLEARANCE IN PREDICTING GLOMERULAR FILTRATION RATE . ESTIMATED GFR I S NOT APPLICABLE FOR DIALYSIS PATIEN TS. CBC W/PLT COUNT & AUTO [id number] 14:35:00 Test Item Value Reference Range Interpretation [...] (test code = 416) BASOPHILS ABSOLUTE COUNT ([facility]) 0.00 K/ L 0.00-0.20 (test code = 417) POCT-GLUCOSE [id number] 11:29:00 Test Item Value Reference Range Interpretation Comments POC-GLUCOSE METER 189 mg/dL 70-110 H TESTED AT [address] ([facility]) (test code [facility] [place] = 1538) [address] POCT-GLUCOSE [id number] 05:51:00 Test Item Value Reference Range Interpretation Comments POC-GLUCOSE METER 117 mg/dL 70-110 H TESTED AT [address] ([facility]) (test code [facility] [place] = 1538) [address] POCT-GLUCOSE [id number] 21:42:00 Test Item Value Reference Range Interpretation Comments POC-GLUCOSE METER 120 mg/dL 70-110 H TESTED AT [address] ([facility]) (test code [facility] [place] = 1538) [address] POCT-GLUCOSE [id number] 20:08:00 Test Item Value Reference Range Interpretation Comments POC-GLUCOSE METER 128 mg/dL 70-110 H TESTED AT [address] ([facility]) (test code [facility] [place] = 1538) [address] [id number] 17:01:00 Test Item Value Reference Range Interpretation Comments PHOSPHORUS ([facility]) (test code = 6.9 mg/dL 2.5-4.5 H 604) POCT-GLUCOSE [id number] 12:06:00 Test Item Value Reference Range Interpretation Comments POC-GLUCOSE METER 122 mg/dL 70-110 H TESTED AT [address] ([facility]) (test code [facility] [place] = 1538) [address] TISSUE [id number] 09:54:00Surgical Pathology Report Case: [id number] Authorizing Provider: Lisa Greenberg MD Collected: 01/31/2018 1110 Ordering Location: [facility] Med Surg 5th Floor Received: 01/31/2018 1249 Pathologist: Sherri Zarate MD Specimen: Leg, Left Lower, NECROTIC TISSUE LEFT LOWER LEG SKIN AND SOFT TISSUE, LEFT LOWER LEG, EXCISION: - SKIN AND SUBCUTIS WITH NECROSIS, ACUTE AND CHRONIC INFLAMMATION, BACTERIAL COLONIZATION AND CALCIFICATION OF BLOOD VESSELS, CONSISTENT WITH CALCIPHYLAXIS (SEE COMMENT) Signing Pathologist Direct Phone Line: [phone] signed by Sherri Zarate MD on 02/03/2018 at 9:54 AMCalcification of small and medium sized blood vessels are identified along with extensive necrosis of tissue. 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 73576Evy givenLeg, left lower, necrotic tissue left lower legThe specimen is received in fixative and designated as "leg, left lower" and consists of skin and subcutaneous tissue (6.0 x 4.0 x 2.0 cm). The overlying skin is brown-patterson and smooth. No discrete lesions. The underlying soft tissue is soft and necrotic. Passenger Interline Clerk sectionsof the skin and soft tissue are submitted into A1 to A3. MG/pl Performed [facility], Department of Pathology, [address] [place], [place] [address], AdqyskWf. [facility], Department of Pathology, [address] [place] [address], Tel . [facility], Department of Pathology, [address] [place] [address], BYI W/PLT COUNT & AUTO [id number] 09:08:00 Test Item Value Reference Range Interpretation [...] code = 1+ few 961) BASIC METABOLIC [id number] 08:39:00 Test Item Value Reference Range Interpretation [...] APPLICABLE FOR DIALYSIS PATIEN TS. HEMOGLOBIN AND [id number] 08:25:00 Test Item Value Reference Range Interpretation Comments [facility] (test code = 6.5 GM/DL 13.0-16.8 L 410) HEMATOCRIT ([facility]) (test code = 19.0 % 40.0-50.0 L 411) POCT-GLUCOSE [id number] 21:42:00 Test Item Value Reference Range Interpretation Comments POC-GLUCOSE METER 121 mg/dL 70-110 H TESTED AT [address] ([facility]) (test code [address] [facility] [place] = 1538) [address] POCT-GLUCOSE [id number] 16:40:00 Test Item Value Reference Range Interpretation Comments POC-GLUCOSE METER 134 mg/dL 70-110 H TESTED AT [address] ([facility]) (test code [address] [facility] [place] = 1538) [address] POCT-GLUCOSE [id number] 12:00:00 Test Item Value Reference Range Interpretation Comments POC-GLUCOSE METER 84 mg/dL 70-110 TESTED AT [address] ([facility]) (test code = [address] [facility] 1538) [address] SURGICALLY OBTAINED CULTURE + GRAM [id number] 08:12:00 Test Item Value Reference Interpretation Comments Range CULTURE ([facility]) METHICILLIN A 2+ Methicil antelmo (test [...] (BEAKER) (test code = cocci in clusters 975394) CBC W/PLT COUNT & AUTO [id number] 06:19:00 Test Item Value Reference Range Interpretation [...] L 0.00-0.20 (test code = 417) POCT-GLUCOSE [id number] 06:01:00 Test Item Value Reference Range Interpretation Comments POC-GLUCOSE METER 122 mg/dL 70-110 H TESTED AT [address] ([facility]) (test code [facility] [place] = 1538) [address] POCT-GLUCOSE [id number] 21:23:00 Test Item Value Reference Range Interpretation Comments POC-GLUCOSE METER 178 mg/dL 70-110 H TESTED AT [address] ([facility]) (test code [facility] [place] = 1538) [address] POCT-GLUCOSE [id number] 16:29:00 Test Item Value Reference Range Interpretation Comments POC-GLUCOSE METER 165 mg/dL 70-110 H TESTED AT [address] ([facility]) (test code [facility] [place] = 1538) [address] POCT-GLUCOSE [id number] 11:59:00 Test Item Value Reference Range Interpretation Comments POC-GLUCOSE METER 131 mg/dL 70-110 H TESTED AT [address] ([facility]) (test code [facility] [place] = 1538) [address] POCT-GLUCOSE [id number] 05:22:00 Test Item Value Reference Range Interpretation Comments POC-GLUCOSE METER 104 mg/dL 70-110 TESTED AT [address] ([facility]) (test code [facility] [place] = 1538) [address] POCT-GLUCOSE [id number] 22:48:00 Test Item Value Reference Range Interpretation Comments POC-GLUCOSE METER 122 mg/dL 70-[address] [facility] [address] (BEAKER) (test code [address] [facility] [place] = 1538) [address] HEPATITIS B SURFACE [id number] 20:44:00 Test Item Value Reference Range Interpretation Comments HEPATITIS B SURFACE ANTIBODY 10.2 mIU/mL <8.0 H (BEAKER) (test code = 647) POCT-GLUCOSE [id number] 18:00:00 Test Item Value Reference Range Interpretation Comments POC-GLUCOSE METER 127 mg/dL 70-[address] [facility] [address] (BEAKER) (test code [address] [facility] [place] = 1538) [address] BASIC METABOLIC [id number] 11:02:00 Test Item Value Reference Range Interpretation [...] 697) EGFR (BEAKER) (test 22 mL/min/1.73 ESTIMA AMANDA GFR IS code = 1092) sq m NOT ACCURATE CREATININE CLEARANCE IN PREDICTING GLOMERULAR FILTRATION RATE . ESTIMATED GFR I S NOT APPLICABLE FOR DIALYSIS PATIEN TS. CBC W/PLT COUNT & AUTO [id number] 10:36:00 Test Item Value Reference Range Interpretation [...] = 1+ few 966) HEPATITIS B SURFACE [id number] 07:50:00 Test Item Value Reference Range Interpretation Comments HEPATITIS B SURFACE ANTIGEN (2) Nonreactive Nonreactive (BEAKER) (test code = 2585) BASIC METABOLIC [id number] 07:45:00 Test Item Value Reference Range Interpretation [...] 697) EGFR (BEAKER) (test 10 mL/min/1.73 ESTIMA AMANDA GFR IS code = 1092) sq m NOT ACCURATE CREATININE CLEARANCE IN PREDICTING GLOMERULAR FILTRATION RATE . ESTIMATED GFR I S NOT APPLICABLE FOR DIALYSIS PATIEN TS. POCT-GLUCOSE [id number] 06:32:00 Test Item Value Reference Range Interpretation Comments POC-GLUCOSE METER 82 mg/dL 70-110 TESTED AT [address] ([facility]) (test code = [address] [facility] 1538) [address] POCT-GLUCOSE [id number] 17:47:00 Test Item Value Reference Range Interpretation Comments POC-GLUCOSE METER 106 mg/dL 70-110 TESTED AT [address] ([facility]) (test code [address] [facility] = 1538) [address] CBC W/PLT COUNT & AUTO [id number] 16:41:00 Test Item Value Reference Range Interpretation [...] code = 2+ moderate 963) BASIC METABOLIC [id number] 16:21:00 Test Item Value Reference Range Interpretation [...] 697) EGFR (BEAKER) (test 13 mL/min/1.73 ESTIMA AMANDA GFR IS code = 1092) sq m NOT ACCURATE CREATININE CLEARANCE IN PREDICTING GLOMERULAR FILTRATION RATE . ESTIMATED GFR I S NOT APPLICABLE FOR DIALYSIS PATIEN TS. PROTHROMBIN [id number] 16:17:00 Test Item Value Reference Range Interpretation [...]
[2020-09-15] MEDS ORDERED: LIDOCAINE 1% MPF 5 ML VIAL ONE (15:57)
[2020-09-15] MEDS ORDERED: NA CHLORIDE 0.9% 250 ML ONE (15:57)
[2020-09-15 16:00] LABS: Bilirubin Total 0.4 mg/dL (0.2-1.0); Potassium 4.5 mmol/L (3.5-5.1); Protein, Total 9.9 g/dL (6.4-8.2)
--- NOTE | 2020-09-15 16:47 | EDPHYS ---
Physician Documentation [facility] Name: Rodrigue Arreola Jr Age: 29 yrs Sex: Male : 1990 Arrival Date: 09/15/2020 Time: 14:32 Bed 7 Private MD: Shaheen Paul HPI: 09/15 16:37 This 29 yrs old Black Male presents to ER via Wheelchair with complaints of Dialysis pm1 Catheter Problem. 16:37 The patient has a dialysis catheter in the left femoral area. Type of problem: sutures pm1 on the catheter broke last night. The malfunction was discovered at home. Dialysis schedule: , last dialysis was today. Associated signs and symptoms: Pertinent negatives:. sutures on this same catheter broke about 3-4 months ago. Historical: - Allergies: 14:48 No Known Allergies; ll1 - PMHx: 14:48 CHF; CVA; Diabetes - IDDM; Dialysis; Saturday, , Saturday; ESRD; Hypertension; ll1 Hypothyroidism; - PSHx: 14:48 dialysis cath; ll1 - Immunization history:: Flu vaccine is up to date. - Social history:: Smoking status: Patient denies any tobacco usage or history of. ROS: 16:37 Constitutional: Negative for fever, chills, and weight loss, Cardiovascular: Negative pm1 for chest pain, palpitations, and edema, Respiratory: Negative for shortness of breath, cough, wheezing, and pleuritic chest pain, Abdomen/GI: Negative for abdominal pain, nausea, vomiting, diarrhea, and constipation, Back: Negative for injury and pain, MS/Extremity: Negative for injury and deformity, Skin: Negative for injury, rash, and discoloration, Neuro: Negative for headache, weakness, numbness, tingling, and seizure. Exam: 16:37 Constitutional: This is a well developed, well nourished patient who is awake, alert, pm1 and in no acute distress. 16:37 Back: No spinal tenderness. No costovertebral tenderness. Full range of motion. Skin: Warm, dry with normal turgor. Normal color with no rashes, no lesions, and no evidence of cellulitis. MS/ Extremity: Pulses equal, no cyanosis. Neurovascular intact. Full, normal range of motion. 16:37 Cardiovascular: Exam negative for acute changes, Rate: tachycardic, Rhythm: regular, Pulses: no pulse deficits are appreciated, Edema: is not appreciated. 16:37 Respiratory: Exam negative for acute changes, respiratory distress, shortness of breath. 16:37 Abdomen/GI: Inspection: obese 16:37 Neuro: Exam negative for acute changes, Orientation: is normal, Mentation: is normal, Motor: is normal, moves all fours. Vital Signs: 14:46 BP 87 / 60; Pulse 106; Resp 18; Temp 98.5; Pulse Ox 100% ; Weight 158.76 kg; Height 6 ll1 ft. 4 in. (193.04 cm); Pain 0/10; 15:30 BP 68 / 51; Pulse 103; Resp 17; Pulse Ox 100% ; jl7 16:30 BP 85 / 56; Pulse 99; Resp 15; Pulse Ox 100% ; jl7 17:00 BP 75 / 50; Pulse 104; Resp 15; Pulse Ox 100% ; jl7 14:46 Body Mass Index 42.60 (158.76 kg, 193.04 cm) ll1 Procedures: 16:37 Performed Dialysis catheter secured to his left thigh with two simple sutures thorough pm1 the plastic eyelets. Patient tolerated well. lidocaine 1% 5 ml and 2-0 Ethilon used. MDM: 15:17 Patient medically screened. ana 16:40 Data reviewed: vital signs. Data interpreted: Pulse oximetry: on room air is 100 %. pm1 Interpretation: normal. 16:45 Counseling: I had a detailed discussion with the patient and/or guardian regarding: the pm1 historical points, exam findings, and any diagnostic results supporting the discharge/admit diagnosis, lab results, the need for outpatient follow up, to return to the emergency department if symptoms worsen or persist or if there are any questions or concerns that arise at home. 17:10 Refusal of service: The patient/guardian displays adequate decision making capability pm1 and despite a detailed discussion of alternatives, benefits, risks, and consequences refuses: IV fluids for correction of hypotension prior to discharge. Patient said that his blood pressure is "always low after dialysis" and he feels fine. He does not want anymore fluids and would like to go home now. 09/15 15:23 Order name: CMP; Complete Time: 16:31 pm1 09/15 15:23 Order name: IV Saline Lock; Complete Time: 15:25 pm1 Administered Medications: 15:46 Drug: NS 0.9% 250 ml Route: IV; Rate: bolus; Site: left forearm; jl7 16:15 Follow up: IV Status: Completed infusion; IV Intake: 250ml jl7 16:00 Drug: Lidocaine (1 %) 5 ml {Note: administered by ERP.} Volume: 5 ml; Route: jl7 Infiltration; 16:57 Follow up: Response: No adverse reaction jl Disposition: 09/15/20 16:47 Discharged to Home. Impression: Encounter for fitting and adjustment of extracorporeal dialysis catheter, Hypotension, unspecified. - Condition is Stable. - Discharge Instructions: Hypotension, Central Line Dialysis Access Placement, Care After. - Medication Reconciliation Form, Thank You Letter, Antibiotic Education, Prescription Opioid Use form. - Follow up: Emergency Department; When: As needed; Reason: Worsening of condition. Follow up: Private Physician; When: 2 - 3 days; Reason: Recheck today's complaints, Continuance of care, Re-evaluation by your physician. - Problem is new. - Symptoms have improved. Addendum: 09/17/2020 11:37 Co-signature as Attending Physician, Shaheen Dumas MD I agree with the assessment and c tom plan of care. Signatures: Dispatcher [employer] Loretta Perez, RN Shaheen Fu MD MD cha Marinas, Patrick, ELECTRONIC SECURITY SPECIALIST ELECTRONIC SECURITY SPECIALIST pm1 Carol Lynn RN RN jl7 Krish Saucedo RN RN ll1 Corrections: (The following items were deleted from the chart) 09/15 17:35 16:47 09/15/2020 16:47 Discharged to Home. Impression: Encounter for fitting and sv adjustment of extracorporeal dialysis catheter; Hypotension, unspecified. Condition is Stable. Forms are Medication Reconciliation Form, Thank You Letter, Antibiotic Education, Prescription Opioid Use. Follow up: Emergency Department; When: As needed; Reason: Worsening of condition. Follow up: Private Physician; When: 2 - 3 days; Reason: Recheck today's complaints, Continuance of care, Re-evaluation by your physician. Problem is new. Symptoms have improved. pm1
--- NOTE | 2020-09-15 16:47 | ER ---
Nurse's Notes [facility] Name: Rodrigue Arreola Jr Age: 29 yrs Sex: Male : 1990 Arrival Date: 09/15/2020 Time: 14:32 Bed 7 Private MD: Diagnosis: Encounter for fitting and adjustment of extracorporeal dialysis catheter;Hypotension, unspecified Presentation: 09/15 14:46 Chief complaint: Patient states: L groin dialysis catheter access came un-sutured two ll1 nights ago. No pain or fever to the site. BP low after dialysis today. Coronavirus screen: Client denies travel out of the [place] in the last 14 days. At this time, the client does not indicate any symptoms associated with coronavirus-19. Ebola Screen: Patient denies travel to an Ebola-affected area in the 21 days before illness onset. Initial Sepsis Screen: Does the patient meet any 2 criteria? Systolic BP < 90 mmHg. HR > 90 bpm. No. Patient's initial sepsis screen is negative. Does the patient have a suspected source of infection? No. Patient's initial sepsis screen is negative. Risk Assessment: Do you want to hurt yourself or someone else? Patient reports no desire to harm self or others. Onset of symptoms was September 13, 2020. 14:46 Method Of Arrival: Wheelchair ll1 14:46 Acuity: DAVID 2 ll1 Historical: - Allergies: 14:48 No Known Allergies; ll1 - PMHx: 14:48 CHF; CVA; Diabetes - IDDM; Dialysis; Saturday, , Saturday; ESRD; Hypertension; ll1 Hypothyroidism; - PSHx: 14:48 dialysis cath; ll1 - Immunization history:: Flu vaccine is up to date. - Social history:: Smoking status: Patient denies any tobacco usage or history of. Screenin:30 Abuse screen: Denies threats or abuse. Denies injuries from another. Nutritional jl7 screening: No deficits noted. Tuberculosis screening: No symptoms or risk factors identified. Fall Risk IV access (20 points). Total Su Fall Scale indicates No Risk (0-24 pts). Assessment: 17:10 Reassessment: Pt states "I'm always low after dialysis, I'm not staying any longer." jl7 PALOMO Anderson notified of BP, VO to continue with discharge. Vital Signs: 14:46 BP 87 / 60; Pulse 106; Resp 18; Temp 98.5; Pulse Ox 100% ; Weight 158.76 kg; Height 6 ll1 ft. 4 in. (193.04 cm); Pain 0/10; 15:30 BP 68 / 51; Pulse 103; Resp 17; Pulse Ox 100% ; jl7 16:30 BP 85 / 56; Pulse 99; Resp 15; Pulse Ox 100% ; jl7 17:00 BP 75 / 50; Pulse 104; Resp 15; Pulse Ox 100% ; jl7 14:46 Body Mass Index 42.60 (158.76 kg, 193.04 cm) ll1 ED Course: 14:32 Patient arrived in ED. as 14:48 Triage completed. ll1 14:49 Arm band placed on Patient placed in an exam room, on a stretcher. ll1 15:15 Justin Mays NP is PHCP. pm1 15:15 Shaheen Dumas MD is Attending Physician. pm1 15:16 Inserted saline lock: 20 gauge in left antecubital area, using aseptic technique. Blood dh3 collected. 15:30 Patient has correct armband on for positive identification. Placed in gown. Bed in low jl7 position. Call light in reach. Side rails up X 1. Pulse ox on. NIBP on. 16:39 Carol Lynn, FRITZ is Primary Nurse. jl7 17:10 No provider procedures requiring assistance completed. IV discontinued, intact, jl7 bleeding controlled, No redness/swelling at site. Pressure dressing applied. Administered Medications: 15:46 Drug: NS 0.9% 250 ml Route: IV; Rate: bolus; Site: left forearm; jl7 16:15 Follow up: IV Status: Completed infusion; IV Intake: 250ml jl7 16:00 Drug: Lidocaine (1 %) 5 ml {Note: administered by ERP.} Volume: 5 ml; Route: jl7 Infiltration; 16:57 Follow up: Response: No adverse reaction jl7 Intake: 16:15 IV: 250ml; Total: 250ml. jl7 Outcome: 16:47 Discharge ordered by . pm1 17:10 Discharged to home via wheelchair, with family. jl7 17:10 Condition: stable 17:10 Discharge instructions given to patient, family, Instructed on discharge instructions, follow up and referral plans. Demonstrated understanding of instructions, follow-up care. 17:35 Patient left the ED. sv Signatures: Loretta Lomas, RN RN Sabine Cortes Patrick, [address] [employer]OR pm1 Carol Lynn RN RN jl7 Kaylie Sepulveda 3 Krish Saucedo RN RN ll1
[2020-09-15 17:45] VITALS: TEMP 98.5; O2SAT 100
[2020-09-15 17:49] VITALS: BP 75/50
== END 2020-09-15 17:35 | disposition home or self-care (01) ==
LOC: ER 14:30
DX: Z49.01 Encounter for fitting and adjustment of extracorporeal dialysis catheter (principal); I95.9 Hypotension, unspecified; E11.22 Type 2 diabetes mellitus with diabetic chronic kidney disease; I13.2 Hypertensive heart and chronic kidney disease with heart failure and with stage 5 chronic kidney disease, or end stage renal disease; I50.9 Heart failure, unspecified; N18.6 End stage renal disease
CPT/HCPCS: 96365; 36415; 80053; 99284; J7050

== ENCOUNTER 2020-09-20 19:18 | Emergency (ER) | payer OTHER ==
--- OUTSIDE RECORDS SUMMARY | 2020-09-20 19:21 | XMS REPORT | Clinical Summary ---
:1990 Author Organization [facility] Address [address] [place] [address] Care Team Providers Name Role Phone Leonor [...] Failure o f hemodialysis access, initial encounter ([facility]) (Primary Dx); Monserrat Fowler MD Acute pulmonary edema ([facility]); Luci Felton Chronic anticoa gulation; [...] Landin, AMY RD (end stage renal disease) ([facility]) (Primary Dx); End stage renal disease ([facility]) 04/01/2020 Hospital Encounter Radiology Jannette [...] Fowler MD ESRD (end stage renal disease) ([facility]); Luci Felton Arm DVT (deep v enous thromboembolism), chronic, left ([facility]) MD Leonor 03/23/2020 Office Visit [...] General Surgery Isaiah Dyer MD Cheema, Ivelisse, HOME DEPOT REP 02/04/2020 Surgery General Surgery Karli Campos LEFT [...] Surgery Kelly Zuñiga MD Allen, Michelle Rene, 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 RELATIONS EXECUTIVE 10/19/2019 Surgery General Surgery Karli Campos LEFT UPP MARIO Liang MD EXTERMITY SECON D STAGE BVT 10/19/2019 - Hospital Encounter General Internal Karli Campos P ulannlem with 10/20/2019 Monserrat Liang MD dialysis access, Luci Felton initial encount er MD Leonor (HCC) (Primary Dx) 10/16/2019 Pre-Admit Testing Pre-Admission Karli Campos Preop testing Appointment Testing MD Azul (Primary Dx) after 09/20/2019 Surgical History Surgery Date Site/Laterality Comments CHOLECYSTECTOMY [...] ANGIOGRAM; Surg bob: Jannette Landin MD; Location: [facility] M ain OR; Service: Cardiot horacic; [...] 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 Arrhythmia ' irregular heart be ats" Wears [...] INFLUENZA VACCINE 04/23/2020 Implants Implanted Type Area Dedicated Truck Driver Device Shelf Model / Identifier Expiration Serial / Date Lot Catheter Hmodial Dura-Flow Prcrv Bsc Valved Pelbl [facility] 32cm - [id number] Central N/A: N/A ANGIODYNAMICS [id number] HOUSTO / Implanted: Qty: 1 on 08/24/2019 by Karli Campos MD at [facility] [employer] / Catheters Catheter Hmodial Dura-Flow Prcrv Bsc Valved Pelbl Shth 28cm - [id number] Central N/A: N/A ANGIODYNAMICS [id number] / Implanted: 05/02/2020 at [facility] (Quantity not on file) [employer] / Catheters Kit Hmodial Cath Chronc Str Bsc 55cm Dura-Flow - [id number] Cent ral N/A: N/A ANGIODYNAMICS 06/22/2021 [id number] / Implanted: Qty: 1 on 07/14/2020 by Karli Campos MD at [facility] [employer] / Catheters Device Vascular Closure Vascade 6/7fr - [id number] Surgical N/A: N/A [employer] 11/23/2021 [id number] / Implanted: 04/04/2020 at [facility] (Quantity not on file) Implants ; INC / Expanders; [id number] Extenders; Surgical Wires Procedures Procedure Name [...] procedure are i n the results section. NV AN ELECTIVE Routine 07/06/2020 2:20 Results f [...] procedure are i n the results section. NV AN ELECTIVE Routine 05/02/2020 4:08 Results f [...] procedure are i n the results section. NV AN ELECTIVE Routine 04/04/2020 12:29 Results f [...] procedure are i n the results section. NV AN ELECTIVE Routine 02/04/2020 12:05 Results f [...] Routine 10/20/2019 1:26 Results for this PM RECREATION SUPERVISOR procedure are i n the results section. HEPATITIS B SURFACE AB, Routine 10/20/2019 9:15 Results for this QUANTITATIVE AM RECREATION SUPERVISOR procedure are i n the results section. HEPATITIS B SURFACE Routine 10/20/2019 9:15 Resu lts for this ANTIBODY AM RECREATION SUPERVISOR procedure are i n the results section. HEPATITIS B SURFACE Routine 10/20/2019 9:15 Resu lts for this ANTIGEN AM RECREATION SUPERVISOR procedure are i n the results section. POC GLUCOSE Routine 10/20/2019 7:46 Results for this AM RECREATION SUPERVISOR procedure are i n the results section. XR CHEST 1 VW PORTABLE Routine 10/20/2019 6:18 R esults for this AM RECREATION SUPERVISOR procedure are i n the results section. HEMODIALYSIS Routine 10/19/2019 9:37 PM RECREATION SUPERVISOR POC GLUCOSE Routine 10/19/2019 8:28 Results for this PM RECREATION SUPERVISOR procedure are i n the results section. POC GLUCOSE Routine 10/19/2019 3:49 Results for this PM RECREATION SUPERVISOR procedure are i n the results section. NV AN ELECTIVE Routine 10/19/2019 1:53 Results f or this SUPRAGLOTTIC AIRWAY PM RECREATION SUPERVISOR procedur e are in the results section. POC PANEL 4 Routine 10/19/2019 10:00 Results for this AM RECREATION SUPERVISOR procedure are i n the results section. ESTIMATED GFR STAT 10/19/2019 9:05 Results fo r this AM RECREATION SUPERVISOR procedure are i n the results section. BASIC METABOLIC PANEL STAT 10/19/2019 9:05 Re sults for this AM RECREATION SUPERVISOR procedure are i n the results section. ECG PRE/POST OP Routine 10/16/2019 1:48 Preop testing Results for this PM RECREATION SUPERVISOR procedure are i n the results section. HEMOGLOBIN A1C Routine 10/16/2019 1:15 Preop testing Results for this PM RECREATION SUPERVISOR procedure are i n the results section. PROTHROMBIN TIME WITH Routine 10/16/2019 1:15 Preop testing R esults for this INR PM RECREATION SUPERVISOR procedure are i n the results section. PARTIAL THROMBOPLASTIN Routine 10/16/2019 1:15 Preop testing Results for this TIME (PTT) PM RECREATION SUPERVISOR procedure are i n the results section. TYPE AND SCREEN Routine 10/16/2019 1:15 Preop testing Results for this PM RECREATION SUPERVISOR procedure are i n the results section. HC COMPLETE BLD COUNT Routine 10/16/2019 1:15 Preop testing R esults for this W/AUTO DIFF PM RECREATION SUPERVISOR procedure are i n the results section. after 09/20/2019 Results OR FL < 1 Hour (07/14/2020 [...] and fluoroscopic time. EDGARD Performing Organization Address [facility] Phon e Number [facility] [address] [place] [address] POC glucose (07/14/2020 4:11 PM CDT)Only the most recent of19 resultswithin the time period is included. Pathologist [facility] POC glucose 76 65 - 99 mg/dL [facility] Comment: [facility] Distributor Sales Consultant Name: Alfonso Hickman Device ID: [id number] Chartable: RN Notified Specimen Blood Performing Organization Address [facility]/ZIP [facility] Phon e Number [facility] DEPARTMENT OF PATHOLOGY [id number] [place] [address]. [place] [address] AND GENOMIC MEDICINE [facility] [address] [facility] [place] [address] HOSPITAL Type and screen (07/14/2020 2:01 PM CDT)Only the most recent of6 resultswithin the time period is included. Pathologist [facility] ABO grouping O [facility] Rh type POS [facility] Antibody screen (gel) NEG [facility] Specimen Plasma Performing Organization Address [facility] Phon e Number [facility] DEPARTMENT OF PATHOLOGY [address] [facility] [place] [address] AND GENOMIC MEDICINE [facility] SUGAR [facility] [address] [facility] [address] [place] [address] [facility] ECG ED Preliminary Interpretation - Not an Order (07/14/2020 12:04 PM CDT) Narrative Performed At Josep Sheehan MD 07/14/2020 1 2:21 PM ECG ED Preliminary Interpretation - Not an Order Performed by: Josep Sheehan MD Authorized by: Josep Sheehan MD ECG reviewed by ED Physician in the abse nce of a senior account manager: yes Interpretation: Interpretation: non-specific Rate: ECG rate: [...] with clinical observations, patient history, and epidemiological [place] information. [facility] COVID-19 qualitative Not-Detected Not-Detecte [place] PCR result d [facility] COVID-19 qualitative See link below for [place] PCR PDF Lab [facility] ReportComment: Case HOSPITAL Number: [id number] Specimen Nasopharyngeal swab Performing Organization Address City/State/ZIP Code Phon e Number [facility] DEPARTMENT OF PATHOLOGY AND [address] [place], [place] [address] [facility] [address] [place] [address] [facility] XR Chest 1 Vw Portable (07/14/2020 11:18 [...] pneumo thorax. 3.Intact skeleton. Performing Organization Address [facility]/ZIP Code Phon e Number [facility] [address] [place] [address] ECG 12 lead (07/14/2020 10:53 AM CDT)Only the most recent of2 resultswithin the time period is included. Pathologist Sig nature Ventricular rate 91 [facility] MUSE Atrial rate 91 [facility] MUSE NV interval 202 [facility] M[facility] QRSD interval 84 [...] is no t available. Performing Organization Address [facility] Phon e Number [facility] MUSE [address] [place] [address] Estimated GFR (07/14/2020 10:22 AM CDT)Only the most recent of8 resultswithin the time period is included. Estimated GFR 5 (A) mL/min/1.73 [place] [facility] Comment: m2 [place] Catergory Units Interpretation [...] Organization Address City/State/ZIP Code Phon e Number [facility] DEPARTMENT OF PATHOLOGY [address] [place] [address] Partial thromboplastin time, activated (07/14/2020 10:22 AM CDT)Only the most recent of6 resultswithin the time period is included. PTT 32.8 23.0 - 36.0 [facility] Comment: [facility] PTT therapeutic range for unfractionated heparin is HOSPITAL 61.0-112.0 seconds which corresponds to Anti-Xa 0.3-0.7 U/ml. Specimen Blood Performing Organization Address [facility] Phon e Number [facility] DEPARTMENT OF PATHOLOGY [address] [place] [address] Prothrombin time with INR (07/14/2020 10:22 AM CDT)Only the most recent of6 resultswithin the time period is included. Pathologist [facility] Prothrombin time 15.7 (H) 11.5 - 14.5 [facility] INR 1.3 [place] Comment: [facility] International Normalized Ratio (INR) is a therapeu [facility] monitoring tool for patients who are stable on oral anticoagulant therapy. An INR of 2.0-3.0 is suggested for deep vein thrombosis/pulmonary embolism. Specimen Blood Performing Organization Address City/[facility] Phon e Number [facility] DEPARTMENT OF PATHOLOGY [address] [place] [address] CBC with platelet and differential (07/14/2020 10:22 AM CDT)Only the most recent of8 resultswithin the time period is included. WBC 8.3 4.5 - 11.0 k/uL [facility] RBC 3.89 (L) 4.40 - 6.00 [facility] m/uL [facility] HGB 11.2 (L) 14.0 - 18.0 [facility] g/dL [facility] HCT 36.2 (L) 41.0 - 51.0 % [facility] MCV 93.1 82.0 - 100.0 fL [facility] MCH 28.8 27.0 - 34.0 pg [facility] MCHC 30.9 (L) 31.0 - 37.0 [facility] g/dL [facility] RDW - SD 57.1 (H) 37.0 - 55.0 fL [facility] MPV 10.4 6.9 - 11.0 fL [facility] Platelet count 213 150 - 400 K/uL [facility] Nucleated RBC 0.00 /100 WBC [facility] Neutrophils 69.6 (H) 39.0 - 69.0 % [facility] Lymphocytes 15.6 (L) 25.0 - 45.0 % [facility] Monocytes 7.7 0.0 - 10.0 % [facility] Eosinophils 6.7 (H) 0.0 - 5.0 % [facility] Basophils 0.2 0.0 - 1.0 % [facility] Immature granulocytes 0.2 0.0 - 1.0 % [facility] Specimen Plasma Performing Organization Address City/State/ZIP Code Phon e Number [facility] DEPARTMENT OF PATHOLOGY [address] [facility] [place] [address] AND [facility] [address] [facility] X [phone] [place] [address] Basic metabolic panel (07/14/2020 10:22 AM CDT)Only the most recent of6 results within the time period is included. Pathologist Sig nature Sodium 132 (L) 135 - 148 mEq/L [facility] Potassium 4.8 3.5 - 5.0 mEq/L [facility] Chloride 98 98 - 112 mEq/L [facility] CO2 21 (L) 24 - 31 mEq/L [facility] Anion gap 13@ANIO 7 - 15 mEq/L [facility] BUN 58 (H) 6 - 20 mg/dL [facility] Creatinine 13.54 (H) 0.70 - 1.20 mg/dL [facility] Glucose 128 (H) 65 - 99 mg/dL [facility] Calcium 10.6 (H) 8.3 - 10.2 mg/dL [facility] Specimen Plasma Performing Organization Address City/[facility] Code Phon e Number [facility] DEPARTMENT OF PATHOLOGY [id number] [place] [address] AND [facility] [address] [facility] [place] [address] HOSPITAL Airway (07/06/2020 2:20 PM CDT) Narrative Performed At Marisol Toledo 07/06 2:55 PM Airway Date/Time: 07/06/2020 2:20 PM Performed by: Marisol Toledo so Authorized by: Mike Og MD Location: OR Urgency: Elective Difficult Airway: No Anesthesiologist: Mike Og MD Resident/SPINNER HAND/AA: Marisol Toledo Performed by: resident/SPINNER HAND/AA Preoxygenated with 100% O2: Yes C-spine Precautions Maintained Throughou t: Yes Mask Ventilation: Not attempted Final Airway Type: Supraglottic airway Final LMA: I-Gel LMA Size: 5 Number of Attempts at Approach: 1 Preoxygenation times five minutes on 100% FiO2. Causey h IV induction. Eyes taped after loss of eyelash reflex. Size 5 iGEL placed atraumatically. Positive chest rise and positive EtCO2 with adequate s eal. No leak noted at 20 cmH2O. Ventilation adequate. No da mage to oropharynx. VSS. POC panel (07/06/2020 12:24 PM CDT)Only the most recent of2 resultswithin the time period is included. POC sodium 135 135 - 148 [facility] mmol/L [facility] POC potassium 4.6 3.5 - 5.0 [facility] mmol/L [facility] POC glucose 104 (H) 65 - 99 mg/dL [facility] Comment: [facility] Distributor Sales Consultant Name: [facility] Device ID: [id number] POC hemoglobin 14.6 14.0 - 18.0 [facility] g/dL [facility] POC hematocrit 43 41 - 51 % [facility] Specimen Blood Performing Organization Address City/[facility]/ZIP Code Phon e Number [facility] DEPARTMENT OF PATHOLOGY [id number] [place] [address] X [address] AND GENOMIC MEDICINE [facility] [address] [facility] [place] [address] [facility] ECG Pre/Post Op (07/04/2020 1:43 PM CDT)Only the most recent of3 resultswithin the time period is included. Pathologist Sig nature Ventricular rate 104 [facility] MUSE Atrial rate 104 [facility] MUSE NV interval 180 [facility] M[facility] QRSD interval 84 [...] Organization Address City/State/ZIP Code Phon e Number [facility] MUSE [address] [place] [address] Hemoglobin A1c (07/04/2020 1:06 PM CDT)Only the [...] Organization Address City/State/ZIP Code Phon e Number [facility] DEPARTMENT OF PATHOLOGY [address] [facility] [address] [place] [address] AND GENOMIC MEDICINE [place] [address] [facility] [place] [address] HOSPITAL Airway (05/02/2020 4:08 PM CDT) Narrative Performed At Chantal Gates CRNA 05/02/2020 4 :09 PM Airway Date/Time: 05/02/2020 3:56 PM Performed by: Chantal Gates CRNA Authorized by: Tirso Heller MD Location: OR Urgency: Elective Difficult Airway: No Anesthesiologist: Tirso Heller MD Resident/SPINNER HAND/AA: Chantal Gates CRNA Performed by: resident/SPINNER HAND/AA Preoxygenated with 100% O2: Yes C-spine Precautions Maintained Throughou t: Yes Mask Ventilation: Easy mask (2 hands) Final Airway Type: Supraglottic airway Final LMA: I-Gel LMA Size: 5 Number of Attempts at Approach: 1 Comprehensive metabolic panel (05/02/2020 11:24 AM CDT)Only the most recent of2 resultswithin the time period is included. Sodium 133 (L) 135 - 148 mEq/L [facility] Potassium 4.1 3.5 - 5.0 mEq/L [facility] Chloride 101 98 - 112 mEq/L [facility] CO2 23 (L) 24 - 31 mEq/L [facility] Anion gap 9@ANIO 7 - 15 mEq/L [facility] BUN 51 (H) 6 - 20 mg/dL [facility] Creatinine 11.41 (H) 0.70 - 1.20 [facility] mg/dL [facility] Glucose 100 (H) 65 - 99 mg/dL [facility] Calcium 9.2 8.3 - 10.2 [facility] mg/dL [facility] Protein 7.0 6.3 - 8.3 g/dL [facility] Albumin 3.3 (L) 3.5 - 5.0 g/dL [facility] A/G ratio 0.9 0.7 - 3.8 [facility] Alkaline phosphatase 208 (H) 40 - 129 U/L [facility] AST 22 10 - 50 U/L [facility] ALT 16 5 - 50 U/L [facility] Total bilirubin 0.4 0.2 - 1.2 mg/dL [facility] Specimen Blood Performing Organization Address City/State/ZIP Code Phon e Number [facility] DEPARTMENT OF PATHOLOGY [address] [facility] [place] [address] AND [facility] [address] [facility] [place] [address] [facility] Airway (04/04/2020 12:29 PM CDT) Narrative Performed At Lauren Fung CRNA 04/04/2020 12:30 PM Airway Date/Time: 04/04/2020 12:21 PM Performed by: Lauren Fung CRNA Authorized by: Geetha Hartley M D Location: OR Urgency: Elective Anesthesiologist: Geetha Hartley MD Resident/SPINNER HAND/AA: Lauren Fung C RNA Performed by: anesthesiologist [...] sodium 129 (L) 135 - 148 [facility] mmol/L [facility] POC potassium 5.2 (H) 3.5 - 5.0 [facility] mmol/L [facility] POC hematocrit 57 (H) 41 - 51 % [facility] POC glucose 119 (H) 65 - 99 mg/dL [facility] Comment: [employer] Distributor Sales Consultant Name: [facility] Device ID: [id number] POC hemoglobin 19.4 (H) 14.0 - 18.0 [facility] g/dL [facility] Specimen Blood Performing Organization Address City/State/ZIP Code Phon e Number [facility] DEPARTMENT OF PATHOLOGY [address] [facility] [place] [address] AND [facility] [address] [facility] [place] [address] [facility] XR Chest 2 Vw (04/01/2020 3:22 PM CDT)Only the most recent of2 resultswithin the time period is included. Specimen Narrative Performed At EXAMINATION: XR CHEST 2 VW [facility] CLINICAL HISTORY: Z01.818 Encounter for other prepro cedural examination, PRE OP TESTING IMPRESSION: Heart is slightly enlarged. Lungs are clear. There are no effusions. Regional skeleton is intact. [id number] Procedure Note Interface, Radiology Results Incoming - 04/01/2020 3:30 PM CDT EXAMINATION: XR CHEST 2 VW CLINICAL HISTORY: Z01.818 Encounter for other preprocedural examination, PRE OP TESTING IMPRESSION: Heart is slightly enlarged. Lungs are cl ear. There are no effusions. Regional skeleton is intact. [facility]-[id number] Performing Organization Address City/State/ZIP Code Phon e Number [facility] [address] [place] [address] CT Upper Extremity W Contrast Left (03/24/2020 [...] thyroid ult rasound on an outpatient basis. [facility]-[id number] Procedure Note Interface, Radiology Results Incoming - [...] evaluated thyroid ultrasound on an outpatient basis. [facility]-[id number] Performing Organization Address [facility] Phon e Number [facility] [address] [place] [address] Hepatitis B surface antigen (03/24/2020 10:00 AM CDT)Only the most recent of3 resultswithin the time period is included. Pathologist Sig nature Hepatitis B surface Non-reactive Non-reactive [facility] Specimen Blood Performing Organization Address [facility] Phon e Number [facility] DEPARTMENT OF PATHOLOGY [id number] [place] [address], X [address] AND [facility] [id number] [place] [id number] [place] [address] Lactic acid level, SEPSIS - Now and repeat 2x every 3 hours (03/24/2020 12:10 AM CDT)Only the most recent of3 resultswithin the time period is included. Pathologist Sig [facility] Lactic acid 0.8 0.5 - 2.2 mmol/L [facility] Specimen Blood Performing Organization Address [facility] Phon e Number [facility] DEPARTMENT OF PATHOLOGY [id number] [place] [address] X [address] AND [facility] [phone] [place] [address] X [address] [facility] Blood culture, aerobic & anaerobic (03/23/2020 5:13 PM CDT)Only the most recent of2 resultswithin the time period is included. Blood culture No growth after 5 days of incubation. CRISPIN VELOZ isolate Comment: HOSPITAL Specimen Information Specimen Source: Blood Specimen Site: Arm, right Specimen Blood - Arm, right Performing Organization Address [facility] Phon e Number [facility] DEPARTMENT OF PATHOLOGY AND [address] [place], [place] [address] GENOMIC MEDICINE [facility] [address] [place] [address] Us duplex venous upper extremity (03/23/2020 5:00 [...] by ACE NGUYEN at 03/23/2020 5:05 PM. [facility]-[id number] Procedure Note Hm Interface, Radiology Results Incoming [...] by HÉCTOR NGUYEN at 03/23/2020 5:05 PM. [facility]-[id number] Performing Organization Address City/State/ZIP Code Phon e Number [facility] [address] [place] [address] MRI Upper Extremity Wo Contrast Left (03/18/2020 [...] City/State/ZIP Code Phon e Number [facility] [address] [place] [address] Hepatitis B surface Ab, quantitative (02/04/2020 6:15 [...] and Tissue-Based Products (HCT/P) . Performed by [facility], [address] [place] [id number] [email or web address], Brent Greco MD, Lab. Director Specimen Serum Performing Organization Address [facility] Phon e Number [facility] [address] [place] [address] [facility] [address] [place] [address] Hepatitis B surface antibody (02/04/2020 6:15 PM CDT)Only the most recent of2 resultswithin the time period is included. Pathologist Sig nature Hepatitis B surface Reactive (A) Non-reactive [facility] Specimen Blood Performing Organization Address City/[facility] Phon e Number [facility] DEPARTMENT OF PATHOLOGY AND [address] [place] [phone] GENOMIC MEDICINE [address] [address] Airway (02/04/2020 12:05 PM CDT) Narrative Performed At Nori Wiseman CRNA 02/04/2020 12:05 PM Airway Date/Time: 02/04/2020 12:05 PM Performed by: Wiseman, Nori, SPINNER HAND Authorized by: Isaiah Dyer MD Location: OR Urgency: Elective Difficult Airway: No Anesthesiologist: Blayne Dyer MD Resident/SPINNER HAND/AA: Nori Wiseman CRNA Performed by: resident/SPINNER HAND/AA Preoxygenated with 100% O2: Yes C-spine Precautions Maintained Throughou t: Yes Mask Ventilation: Not attempted Final Airway Type: Supraglottic airway Final LMA: I-Gel LMA Size: 5 Number of Attempts at Approach: 1 Airway (10/19/2019 1:53 PM RECREATION SUPERVISOR) Narrative Performed At Kelly Zuñiga MD 10/19/2019 1:54 PM Airway Performed by: Kelly Zuñiga MD Authorized by: Kelly Zuñiga MD Location: OR Urgency: Elective Difficult Airway: No Anesthesiologist: Kelly Zuñiga MD Resident/SPINNER HAND/AA: Lauren Fung C RNA Performed by: resident/SPINNER HAND/AA Preoxygenated with 100% O2: Yes C-spine Precautions Maintained Throughou t: Yes Mask Ventilation: Not attempted Final Airway Type: Supraglottic airway Final LMA: I-Gel LMA Size: 5 Number of Attempts at Approach: 1 after 09/20/2019 Insurance Payer Benefit Plan / Subscriber ID Effective Dates Phone Addre ss Type Group MEDICARE MEDICARE PART A [id number] 2015-Present [place], [place] Medicare AND B ([place]) [address] [place] [address] Advance Directives For more information, please contact: [phone] Type Date 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
--- OUTSIDE RECORDS SUMMARY | 2020-09-20 19:22 | XMS REPORT | Clinical Summary ---
:1990 Author Organization [facility] Address [address] [place] [address] Care Team Providers Name Role Phone Sharpkimo [...] Event Shiela Ovalles MD 06/29/2020 Hospital Encounter Karil Campos MD 06/29/2020 Travel 06/24/2020 Hospital Encounter Pre-Admission Testing 06/24/2020 Orders Only General Internal Medicine 06/23/2020 Travel 05/05/2020 Surgery Andres, VENOGRAM Karli Mary MD 05/04/2020 - Hospital Encounter General Internal Luci Felton Hemod ialysis 05/06/2020 Medicine MD Leonor catheter dysfunction, in itial encounter (HCC) (Primary Dx) 05/04/2020 Travel after 09/20/2019 Social History Tobacco Use Types Packs/Day Years [...] 11:51 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 SARS-COV2/RT-PCR ([facility] Routine 06/24/2020 12:09 R esults for this [...] are i n the results section. SARS-COV2/RT-PCR ([facility] Routine 05/04/2020 4:57 R esults for this [...] n the results section. 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 POC-Glucose Meter 93Comment: : 70 - 110 ROHIT HUTCHINSON'S TESTED AT [facility] mg/dL [facility] [address] [address]: Stem Mounter/Technicia n ID = [id number] for Otilio Fatou Specimen Blood Performing Organization Address City/State/Zipcode Phone Number [facility] [address] [place] [phone] CENTER EKG-SCANNED (06/29/2020) Narrative Performed At [...] external report CENTER for linked test SARS-COV-2 [facility]EN [facility] PERFORMING LAB [facility] Specimen Other - Nasopharyngeal wall structure (b sophia structure) Narrative Performed At Negative result for this test determines that [facility] SARS-CoV-2 RNA was not present in the [...] the Act. Fact Sheet for Healthcare Providers: https://www.Apmetrix.Albiorex/sites/default/files/pro duct/documents/Fact_Sheet_HC_Providers_Lyra_SA RS-CoV-2.pdf Fact Sheet for Healthcare Patients: https://www.Apmetrix.Albiorex/sites/default/files/pro duct/documents/Fact_Sheet_Patients_Lyra_SARS-C oV-2.pdf Performing Laboratory: [address] [address] [place] [address] Performing Organization Address City/State/Zipcode Phone Number [facility] [address] [place], [place] [phone] CENTER Type and screen, automated (06/24/2020 12:09 PM CDT) [facility] ABO/RH AUTOMATED O . [facility] SUGAR (BEAKER) POSITIVEComment [facility] : ECHO Ab Scrn NEGATIVEComment [facility] SUGAR : [facility] Specimen Blood Performing Organization Address City/[facility]/Zipcode Phone Number [facility] [address] [place], [place] [phone] [facility] PT/aPTT (06/24/2020 12:09 PM CDT) [facility] Protime 12.4 (H) 9.3 - 12.0 sec [facility] INR 1.15 <=5.90 [facility] PTT 27.7 23.0 - 35.0 sec [facility] Specimen Blood Narrative Performed At RECOMMENDED COUMADIN/WARFARIN INR THERAP Y RANGES [facility] STANDARD DOSE: 2.0 - 3.0 Includes: PROPHYLAXIS for venous thrombosis, systemic embolization; TREATMENT for venou s thrombosis and/or pulmonary embolus. HIGH RISK: Target INR is 2.5-3.5 for patients with mec hanical heart valves. Final Information (Auto Output) Final Information (Auto Output) Final Information (Auto Output) Performing Organization Address City/[facility] Phone Number [facility] [address] [place], [place] [phone] CBC with platelet count + automated diff (06/24/2020 12:09 PM CDT)Only the most recent of2 resultswithin the time period is included. Pathologist [facility] WBC 5.6 4.0 - 10.0 [facility] K/L LABORATORY RBC 4.30 4.20 - 5.80 [facility] M/L LABORATORY Hemoglobin 11.9 (L) 13.0 - 16.8 [facility] GM/DL LABORATORY Hematocrit 40.1 36.0 - 50.0 % [facility] MCV 93.3 82.0 - 99.0 fL [facility] MCH 27.7 27.0 - 33.0 pg [facility] MCHC 29.7 (L) 32.0 - 36.0 [...] noted, count appears to be normal. [facility] Performing Organization Address City/State/Zipcode Phone Number [facility] [address] [place], [place] [phone] Basic Metabolic Panel (06/24/2020 12:09 PM CDT)Only the most recent of2 results within the time period is included. Sodium 134 (L) 135 - 148 meq/L [facility] Potassium 4.3 3.6 - 5.5 meq/L [facility] Chloride 103 98 - 106 meq/L [facility] CO2 20 20 - 29 meq/L [...] DIALYSIS PATIENTS. Specimen Blood Narrative Performed At Stem Mounter ID - ADMIN [facility] Performing Organization Address City/State/Zipcode Phone Number [facility] [address] [place], [place] [phone] CARDIAC CATH REPORT - SCAN (05/10/2020 1:20 PM CDT) Narrative Performed At This result has an attachment that is no t available. Hepatitis B surface antibody (05/05/2020 8:26 PM CDT) Pathologist Sig nature Hep B S Ab 59.2 (H) <8.0 mIU/mL [facility] Specimen Blood Narrative Performed At Stem Mounter ID - ASIYA Villa [facility] Performing Organization Address City/State/Zipcode Phone Number [facility] [address] [place] [phone] CENTER Hepatitis B surface antigen (05/05/2020 8:26 PM CDT) Pathologist Sig nature HBsAg Screen Nonreactive Nonreactive [facility] Specimen Blood Narrative Performed At Stem Mounter ID - ERIKA [address] [facility] Performing Organization Address City/[facility]/Zipcode Phone Number [facility] [address] [place], [place] [phone] Comprehensive metabolic panel (05/05/2020 [...] U/L [facility] EGFR 4Comment: mL/min/1.73 [facility] ESTIMATED GFR IS sq LABORATORY NOT ACCURATE CREATININE CLEARANCE IN PREDICTING GLOMERULAR FILTRATION RATE. ESTIMATED GFR IS NOT APPLICABLE FOR DIALYSIS PATIENTS. Specimen Blood Narrative Performed At Stem Mounter ID - [id number] [facility] Performing Organization Address [facility]/Zipcode Phone Number [facility] [address] [place], [place] [phone] Troponin I (05/04/2020 4:17 PM CDT) Pathologist [employer] Troponin I 0.05 0.00 - 0.15 ng/mL [facility] Specimen Blood Narrative Performed At Troponin I (TnI) levels must be interpreted in the con text of [facility] the presenting symptoms and the clinical [...] acute neurological disease, and per sistent tachyarrhythmia. Stem Mounter ID - AGONZALEZ Performing Organization Address [facility]/Zipcode Phone Number [facility] [address] [place], [place] [phone] Prothrombin time/INR (05/04/2020 4:17 PM CDT) Pathologist [employer] Protime 11.6 9.3 - 12.0 sec [facility] INR 1.07 <=5.90 [facility] Specimen Blood Narrative Performed At RECOMMENDED COUMADIN/WARFARIN INR THERAP Y RANGES [facility] STANDARD DOSE: 2.0 - 3.0 Includes: PROPHYLAXIS for venous thrombosis, systemic embolization; TREATMENT for venou s thrombosis and/or pulmonary embolus. HIGH RISK: Target INR is 2.5-3.5 for patients with mec hanical heart valves. Final Information (Auto Output) Final Information (Auto Output) Performing Organization Address [facility]/Zipcode Phone Number [facility] [address] [place], [place] [phone] Phosphorus (05/04/2020 4:17 PM CDT) Pathologist [employer] Phosphorus 4.6 (H) 2.5 - 4.5 mg/dL [facility] Specimen Blood Narrative Performed At Stem Mounter ID - Tier 1 PerformanceRADHA [facility] Performing Organization Address [facility] Phone Number [facility] [address] [place] [phone] Magnesium (05/04/2020 4:17 PM CDT) Pathologist Sig nature Magnesium 2.8 1.5 - 3.0 mg/dL [facility] Specimen Blood Narrative Performed At Stem Mounter ID - [facility] Performing Organization Address [facility] Phone Number [facility] [address] [place] [phone] Hepatic function panel (05/04/2020 4:17 PM CDT) Pathologist Sig nature Protein, Total 9.4 (H) 6.0 - 8.5 gm/dL [facility] Albumin 4.6 3.5 - 5.0 g/dL [facility] Total Bilirubin 0.7 0.1 - 1.2 mg/dL [facility] Bilirubin, Direct 0.4 0.0 - 0.4 mg/dL [facility] Alkaline Phosphatase 235 (H) 30 - 115 U/L [facility] AST 27 5 - 40 U/L [facility] ALT 11 5 - 50 U/L [facility] Specimen Blood Narrative Performed At Stem Mounter ID - DailyLookSARAH BETH [facility] Performing Organization Address [facility] Phone Number [facility] [address] [place] [phone] Lipid panel (05/04/2020 4:17 PM CDT) Pathologist Sig nature Triglycerides 76 mg/dL [facility] Cholesterol 79 mg/dL [facility] HDL 38 mg/dL [facility] LDL Calculated 26 mg/dL [facility] Specimen Blood Narrative Performed At Triglyceride Reference Range: [facility] Low Risk <150 Borderline 150-199 High Risk 200-499 Very High Risk >=500 Cholesterol Reference Range: Low Risk <200 Borderline 200-239 High Risk >240 HDL Cholesterol Reference Range: Low Risk >=60 High Risk <40 LDL Cholesterol Reference Range: Optimal <100 Near Optimal 100-129 Borderline 130-159 High 160-189 Very High >=190 Stem Mounter ID - RAYO Stem Mounter ID - RAYO Stem Mounter ID - RAYO Performing Organization Address City/State/Zipcode Phone Number [facility] [address] [place], [place] [phone] after 09/20/2019 Advance Directives For more information, please contact: [phone] Code Status Date Activated Date Inactivated Comments Full Code 05/04/2020 1:18 PM 05/06/2020 6:12 PM This code status was determined by: Patient
--- OUTSIDE RECORDS SUMMARY | 2020-09-20 19:25 | XMS REPORT | Continuity of Care Document ---
:1990 Author Organization [facility] t Address [address] [place] [address] Care Team Providers Name Role Phone Sharpless Primary Care Physician Margaret Sheehan MD. Attending Clinician Leonor Felton MD Attending Clinician [...] Clinician Unavailable Jose Heller MD Attending Clinician [phone] Mary Carmen BARAHONA Attending Clinician Kate MESSER Attending Clinician Janet Hartley MD Attending Clinician Otilio WRIGHT Attending Clinician Unavailable Manisha MESSER, Michelle Attending Clinician Yogesh MESSER V. Attending Clinician Wilmar CULVER, Paulie Attending Clinician JONATHAN Attending Clinician Unavailable DR CAT Attending Clinician Unavailable JOSE FRANCISCO Admitting Clinician Unavailable ANDRES Admitting Clinician Unavailable ELOISE CAMPOS Admitting Clinician Unavailable LEONOR FELTON Admitting Clinician Unavailable KATE Admitting Clinician Unavailable JONATHAN Admitting Clinician Unavailable DR CAT Admitting Clinician Unavailable Payers Payer Name Policy Type Policy Effective Date Expiration Date Sour ce Number MEDICAREMEDICARE PART [id number] 2015 [place] A AND 00:00:00 Rastafari FyngflpoJH660/09/2015[place] [id number] 2015 ROHIT [place] [id number] 2015- 00:00:00 - M edical [facility] Problems Condition Condition Condition Status Onset Resolution Last Treating Co mments Source Name Details Category Date Date Treatment Clinician Date Failure of Failure of Disease Active 2020- H [facility] hemodialys hemodialys 0-22 [facility] is access is access 00:00: st 00 Hemodialys Hemodialys Disease Active C [facility] is is 8-12 [facility] catheter catheter 00:00: Medica l dysfunctio dysfunctio 00 Ce nter n n Cellulitis Cellulitis Disease Active 2019- [place] left of left 7 [facility] upper arm upper arm 00:00: st 00 Problem Problem Disease Active [place] with with 1-28 [facility] dialysis dialysis 00:00: [...] Stop Date Source Natural father Hypertension Man Rastafari Natural father Kidney disease [place] Natural father Stroke [facility] thodist Natural mother No Known Problems Rich stobobby Rastafari Paternal grandfather Diabetes [place]ast[place] Social History Social Habit Start Date Stop Date Quantity Comments Source History of tobacco Current smoker [place]ast[place] use History [facility] Meth odist Alcohol Std Drinks History [facility] Meth odist Alcohol Binge Sex Assigned At [facility] ethodist Cigarettes smoked 2020-07-15 2020-07-15 Man Rastafari current (pack per 00:00:00 00:00:00 day) - Reported Cigarette 2020-07-15 2020-07-15 [place] Erika ist pack-years 00:00:00 00:00:00 Tobacco use and 2020-07-15 2020-07-15 Never used [facility] ethodist exposure 00:00:00 00:00:00 Alcohol intake 2020-07-15 2020-07-15 Ex-drinker [facility] thodist 00:00:00 00:00:00 (finding) History SDOH 2019-08-24 2019-08-24 1 [place] Meth odist Alcohol Frequency 00:00:00 00:00:00 Smoking Status Start Date Stop Date Source Former smoker 2020-07-15 00:00:00 2020-07-15 00:00:00 Man Rastafari Never smoker [facility] Medications Ordered Filled Start Stop Current Ordering Indication Dosage Frequency Signature Comments Components Source Medication Medication Date Date Medication? Clinician (SIG) Name Name insulin 2019-09 Yes 30U QD Inject Man ASPART 022 30-60 Methodi (NovoLOG) 19:19: Units st 100 unit/mL 38 under the injection skin nightly. SLIDING SCALE multivitami 2019-09 Yes 1{tbl} QD Take 1 Ho chaz n 0-22 tablet by Floyd (THERAGRAN) 19:19: mouth st tablet 38 daily. metoprolol 2019-09 Yes 100mg Q.[id number] Take 100 Man tartrate 0-22 [id number] mg by Meth marjan (LOPRESSOR) 19:19: 3D [...] - tablet 14:56: mouth Medical 52 daily. Center sevelamer 2019-09 Yes 800mg Q.[id number] Take [address] (RENVELA) 0-07 [id number] mg by Sulaiman es - 800 mg 14:56: 3D mouth 3 Medical tablet 52 (three) Center times daily . insulin 2019-09 Yes 30U QD Inject [facility] aspart 0-07 30-60 [facility] - U-100 14:56: Units Medical (NOVOLOG) 52 subcutaneo Cent er 100 unit/mL usly injection nightly. midodrine 2019-09 Yes 10mg Q.[id number] Take [address] (PROAMATINE 0-07 [id number] by mouth 3 [facility] - ) 10 [...] 1{tbl} Take [address] en-codeine 0-10 02- tablet by Sulaiman es - (TYLENOL 11:48: 00:00 mouth Medical #3) 300-30 14 :00 every 4 Center mg per (four) tablet hours as needed for Pain. HEPARIN 2019- 2020- No Inject [facility] SOD,PORK IN 05-06 intravenou L ukes - 0.45% NACL 12:31: 00:00 sly. Medica l (HEPARIN,PO 07 :00 Center RCINE, IN 0.45% NACL) 5,000 unit/1,000 mL SolP HYDROCODONE 2019-0 2020- No Q.5D Take by [place] BITARTRATE 05-02 mouth 2 Metho di ORAL 10:29: 00:00 [...] 00 :00 times Center daily. apixaban 2019- 2020- No deep venous 5mg Q.5D Take 1 Man (ELIQUIS) 5 04-01 thrombosis tablet (5 Methodi mg tablet 00:00: 23:59 mg total) st 00 :00 by mouth 2 (two) times a day for 90 days .blood clot in a deep vein of the extremitie s. aspirin 325 2019-0 2020- No 325mg QD Take 325 Man MG tablet 03-25 mg by Methodi 18:55: 00:[address] 58 :00 daily. metoprolol 2019-0 2020- No 100mg Q.[id number] Take 1 Man tartrate 03-25 [id number] tablet Me fishman (LOPRESSOR) 00:00: 23:59 3D ([address] 100 mg 00 :00 total) by tablet mouth 3 (three) times a day for 30 days. vancomycin 2019-0 2020- No 1250mg Q.[id number] Infuse Donovan 1,250 mg in 03-25 [id number] 1,250 mg [facility] sodium 00:00: 23:[address] chloride 00 :00 venous 0.9% 250 mL catheter 3 IVPB (three) times a week for 15 days. apixaban 2020- No deep venous 10mg Q.5D Take 2 Man (ELIQUIS) 5 03-25 07-09 thrombosis tablets Methodi mg tablet 00:00: 23:59 ([address] 00 :00 total) by mouth 2 (two) times a day for 6 days .blood clot in a deep vein of the [facility] 2018-09 Yes 1500mg Q.[id number] Chew 1,500 Man 500 mg -12 [id number] mg 3 [facility] tablet,chew 00:00: 3D (three) st able 00 times a day with meals. midodrine 2018-09 Yes 10mg Q.[id number] Take 10 mg Man (PROAMATINE -11 [id number] by mouth 3 Method[facility] ) 10 MG [...] st tablet 00 sevelamer 2018-09 Yes 4{tbl} Q.[id number] Take 4 Man (RENVELA) 0-28 [id number] tablets by Methodi 800 mg 00:00: 3D [...] No 1{tbl} Take 1 [place] -acetaminop 10-13 tablet by Me sravanthi castro ([employer]) 00:00: 00:[address] 5-325 mg 00 :00 per tablet SPS, WITH 2019- No 60mg QD Take [address] SORBITOL, 10-09 by mouth [facility] - 15- 00:00: 00:00 daily. Medical gram/60 mL 00 :00 Center Susp mirtazapine Yes 1{tbl} QD Take [address] (REMERON 1-09 tablet by Luvesna - MARCO A-TAB) 30 00:00: mouth Medic al MG 00 nightly. Center disintegrat ing tablet losartan 2019- No 50mg QD Take [address] (COZAAR) 50 09-30 by mouth Sulaiman es - MG tablet 00:00: 00:00 daily. Medic al 00 :00 Raymond VELPHORO Yes 1{tbl} Q.[id number] Take [address] 500 mg Chew 09-23 [id number] tablet by [facility] - 00:00: 3D mouth 3 Medical 00 (three) Center times daily WITH MEALS. LANTUS 2017-09- No 10U QD Inject 10 [facility] SOLOSTAR 11-11 Units [facility] - U-100 00:00: 00:00 subcutaneo Medic al INSULIN 100 00 :[address] [facility] unit/mL (3 daily. mL) InPn metoprolol 2017-09 Yes 100mg Q.[id number] Take [address] (TOPROL-XL) 2-14 [id number] mg by L ukes - 100 MG [...] tablet 00 For SBP> Center 165. amLODIPine 2017-09 No 5mg Q.5D Take [address] (NORVASC) 5 2 10 by mouth 2 L ukes - MG tablet 00:00: 00:00 (two) Medica l 00 :00 times Center daily. vancomycin 2019- No 750mg Inject [address] (VANCOCIN) 5-16 08-14 mg [facility] - 750 MG IV 00:00: 00:00 intravenou M edical in NS 100 00 :00 sly 3 Center ML MBP (three) times a week after dialysis. Vital Signs Vital Name Observation Time Observation Value Comments Source Systolic blood 2020-07-14 16:48:02 177 mm[Hg] [place]it[place] n Rastafari pressure Diastolic blood 2020-07-14 16:48:02 84 mm[Hg] Josue on Rastafari pressure Heart rate 2020-07-14 16:48:02 95 /min [facility] Body temperature 2020-07-14 16:48:02 36.61 Esther Sherita ton Rastafari Respiratory rate 2020-07-14 16:48:02 19 /min [place]ita [place] Rastafari Oxygen saturation in 2020-07-14 16:48:02 100 /min [facility] Arterial blood by Pulse oximetry Body height 2020-07-14 16:10:00 193 cm [facility] Body weight 2020-07-14 16:10:00 154.677 kg [place] Rastafari BMI 2020-07-14 16:10:00 41.51 kg/m2 [facility] Systolic blood 2020-06-29 12:20:00 194 mm[Hg] [facility] Diastolic blood 2020-06-29 12:20:00 127 mm[Hg] [facility] Heart rate 2020-06-29 12:20:00 94 /min [facility] Respiratory rate 2020-06-29 12:20:00 25 /min [facility] Oxygen saturation in 2020-06-29 12:20:00 99 /min [facility] - Arterial blood by Medical Ce nter Pulse oximetry Body temperature 2020-06-29 10:26:00 37.06 Esther [facility] Body height 2020-06-23 11:55:00 193 cm [facility] Body weight 2020-06-23 11:55:00 151 kg [facility] BMI 2020-06-23 11:55:00 40.52 kg/m2 [facility] Procedures Procedure Date / Time Performing Clinician Source Performed ANESTHESIA PERIPHERAL 2020-08-02 11:51:24 Josr Natewallace [facility] OR [place] < 1 HOUR 2020-07-14 16:15:00 Karli Campos POC GLUCOSE 2020-07-14 16:11:00 Luci Felton thodist TYPE AND SCREEN 2020-07-14 14:01:00 Donovan Dyer Meth odist Dorian Martinez ECG ED PRELIMINARY 2020-07-14 12:04:41 Josep Sheehan INTERPRETATION COVID-19 QUALITATIVE PCR 2020-07-14 12:02:00 Josep Sheehan XR CHEST 1 VW PORTABLE 2020-07-14 11:18:07 Josep Sheehan ECG 12-LEAD 2020-07-14 10:53:59 Josep Sheehan Ut thodist HC COMPLETE BLD COUNT 2020-07-14 10:22:00 Josep Sheehan W/AUTO DIFF PROTHROMBIN TIME WITH INR 2020-07-14 10:22:00 Josep Sheehan PARTIAL THROMBOPLASTIN 2020-07-14 10:22:00 Josep Sheehan TIME (PTT) BASIC METABOLIC PANEL 2020-07-14 10:22:00 Josep Sheehan ESTIMATED GFR 2020-07-14 10:22:00 Josep Sheehan Ut thodist POC GLUCOSE 2020-07-06 16:10:00 Karli Campos VA AN ELECTIVE 2020-07-06 14:20:32 Marisol Toledo Ut thodist SUPRAGLOTTIC AIRWAY [place] POC PANEL 2020-07-06 12:24:00 Karli Campos BASIC METABOLIC PANEL 2020-07-06 12:18:00 Yolis Dyer PROTHROMBIN TIME WITH INR 2020-07-06 12:18:00 Tray Dyer PARTIAL THROMBOPLASTIN 2020-07-06 12:18:00 Josue Dyer on Rastafari TIME (PTT) Dorian Martinez ESTIMATED GFR 2020-07-06 12:18:00 Donovan Dyer Meth odmagda Martinez ECG PRE/POST OP 2020-07-04 13:43:01 Mike Og COVID-19 QUALITATIVE PCR 2020-07-04 13:06:00 Karli Campos HC COMPLETE BLD COUNT 2020-07-04 13:06:00 Karli Campos W/AUTO DIFF TYPE AND SCREEN 2020-07-04 13:06:00 Karli Campos HEMOGLOBIN A1C 2020-07-04 13:06:00 Mike Og POTASSIUM 2020-06-29 10:37:[address] [facility] POCT-GLUCOSE METER 2020-06-29 10:35:00 Karli Campos [facility] REPORT OF PROCEDURE - 2020-06-29 00:00:00 Provider, Default [facility] - ENDOSCOPY SCAN Scanning [facility] TRANSFUSION SERVICE 2020-06-25 18:05:02 Provider, Default [facility] - REPORT - SCAN Scanning [facility] ECG 12-LEAD 2020-06-24 12:33:34 Unknown, Hl7 Doctor [facility] SARS-COV2/RT-PCR ([facility] & 2020-06-24 12:09:00 Karli Campos [facility] - REF LABS) [facility] BASIC METABOLIC PANEL (7) 2020-06-24 12:09:00 Krali Campos [facility] PT/APTT 2020-06-24 12:09:00 [facility] TYPE AND SCREEN, 2020-06-24 12:09:00 Karli Campos [facility] AUTOMATED [facility] CBC W/PLT COUNT & AUTO 2020-06-24 12:09:00 [facility] DIFFERENTIAL [facility] CARDIAC CATH REPORT - 2020-05-10 13:20:59 Myranda Akins [facility] SCAN Scanning [facility] POCT-GLUCOSE METER 2020-05-06 11:25:00 [facility] 2020-05-06 04:39:00 Luci Felton [facility] POCT-GLUCOSE METER 2020-05-05 22:14:00 Luci Felton [facility] HEPATITIS B SURFACE 2020-05-05 20:26:00 Ngoc [facility] HEPATITIS B SURFACE 2020-05-05 20:26:00 Ngoc [facility] POCT-GLUCOSE METER 2020-05-05 18:38:00 Luci Felton [facility] POCT-GLUCOSE METER 2020-05-05 17:19:00 [facility] 2020-05-05 16:00:00 Karli Campos [facility] POCT-GLUCOSE METER 2020-05-05 12:56:00 Luci Felton [facility] POCT-GLUCOSE METER 2020-05-05 12:13:00 [facility] POCT-GLUCOSE METER 2020-05-05 11:20:00 Luci Felton [facility] POCT-GLUCOSE METER 2020-05-05 06:06:00 [facility] COMPREHENSIVE METABOLIC 2020-05-05 05:42:00 [facility] POCT-GLUCOSE METER 2020-05-04 20:48:00 Luci Felton [facility] SARS-COV2/RT-PCR ([facility] & 2020-05-04 16:57:00 [facility] REF LABS) [facility] TROPONIN I 2020-05-04 16:17:00 [facility] BASIC METABOLIC PANEL (7) 2020-05-04 16:17:00 [facility] HEPATIC FUNCTION PANEL 2020-05-04 16:17:00 [facility] PROTHROMBIN TIME/INR 2020-05-04 16:17:00 [facility] LIPID PANEL 2020-05-04 16:17:00 [facility] MAGNESIUM 2020-05-04 16:17:00 [facility] PHOSPHORUS 2020-05-04 16:17:00 [facility] CBC W/PLT COUNT & AUTO 2020-05-04 16:17:00 [facility] XR CHEST 1 VW PORTABLE 2020-05-02 18:18:18 Tirso Heller Rastafari Kavaleriokmiguel POC GLUCOSE 2020-05-02 17:31:00 Karli Campos [place] < 1 HOUR 2020-05-02 17:00:12 Karli Campos VA AN ELECTIVE 2020-05-02 16:08:37 Chantal Gates Meth odist SUPRAGLOTTIC AIRWAY POC PANEL 2020-05-02 11:33:00 Karli Campos COMPREHENSIVE METABOLIC 2020-05-02 11:24:00 Karli Campos PANEL PROTHROMBIN TIME WITH INR 2020-05-02 11:24:00 Karli Cmapos PARTIAL THROMBOPLASTIN 2020-05-02 11:24:00 Karli Campos TIME (PTT) ESTIMATED GFR 2020-05-02 11:24:00 Karli Campos COVID-19 QUALITATIVE PCR 2020-04-27 14:30:00 Rich Dyer HC COMPLETE BLD COUNT 2020-04-27 14:13:00 Karli Campos Rastafari W/AUTO DIFF TYPE AND SCREEN 2020-04-27 14:13:00 Karli Campos HEMOGLOBIN A1C 2020-04-27 14:13:00 Donovan Dyer odmagda Martienz POC GLUCOSE 2020-04-04 13:42:00 KateJannette Man Meth odist CV FISTULOGRAM 2020-04-04 13:26:00 KateJannette Meth odist [place] < 1 HOUR 2020-04-04 13:15:00 KateJannette Meth odist VA AN ELECTIVE 2020-04-04 12:29:51 Lauren Fung Ut thodist SUPRAGLOTTIC AIRWAY BASIC METABOLIC PANEL 2020-04-04 10:26:00 KateJannette Yolis rosales Rastafari ESTIMATED GFR 2020-04-04 10:26:00 KateJannette Katya odist POC PANEL 4 2020-04-04 10:26:00 Jannette Lanidn Meth odist XR CHEST 2 VW 2020-04-01 15:22:00 Jannette Landin Meth odist COVID-19 QUALITATIVE PCR 2020-04-01 14:12:00 KateJannette Rich Villavicencio HC COMPLETE BLD COUNT 2020-04-01 14:12:00 KateRavinyaya rosales Rastafari W/AUTO DIFF TYPE AND SCREEN 2020-04-01 14:12:00 Donovan Dyer ECG PRE/POST OP 2020-04-01 13:42:56 KateJannette Donovan Meth odist POC GLUCOSE 2020-03-25 17:07:00 Luci Felton Me thodist POC GLUCOSE 2020-03-25 08:51:00 Luci Fel[address] Me thodist CT UPPER EXTREMITY W 2020-03-24 22:00:46 JeroHoma bledsoe Donovan Rastafari CONTRAST LEFT POC GLUCOSE 2020-03-24 20:48:00 Luci Felton Me thodist XR CHEST 1 VW PORTABLE 2020-03-24 19:06:13 Gaurav Mitchellyamile Josue on Rastafari POC GLUCOSE 2020-03-24 17:11:00 Luci Felton Me thodist POC GLUCOSE 2020-03-24 14:05:00 Luci Felton Me thodist HC COMPLETE BLD COUNT 2020-03-24 12:35:00 Fior Chaudhary Rastafari W/AUTO DIFF PROTHROMBIN TIME WITH INR 2020-03-24 12:35:00 Fior Chaudhary PARTIAL THROMBOPLASTIN 2020-03-24 12:35:00 Fior Chaudhary on Rastafari TIME (PTT) BASIC METABOLIC PANEL 2020-03-24 12:35:00 Fior Chaudhary ESTIMATED GFR 2020-03-24 12:35:00 Fior Chaudhary Meth odist HEPATITIS B SURFACE 2020-03-24 10:00:00 Alexandra Grossman Rastafari ANTIGEN LACTIC ACID LEVEL, SEPSIS 2020-03-24 00:10:00 TyYvette Rastafari - NOW AND REPEAT 2X EVERY [place] 3 HOURS HEMODIALYSIS 2020-03-24 00:07:39 Eloisa Grossmanbetty Donovan Casanova hodist LACTIC ACID LEVEL, SEPSIS 2020-03-23 21:00:00 TyYvette Rastafari - NOW AND REPEAT 2X EVERY [place] 3 HOURS COVID-19 QUALITATIVE PCR 2020-03-23 20:30:00 Ty, Yvette Villavicencio [place] BLOOD CULTURE, AEROBIC & 2020-03-23 17:13:00 Yvette Nguyen ANAEROBIC [place] COMPREHENSIVE METABOLIC 2020-03-23 17:13:00 Yvette Nguyen Rastafari PANEL [place] HC COMPLETE BLD COUNT 2020-03-23 17:13:00 TyYvette Rastafari W/AUTO DIFF [place] LACTIC ACID LEVEL, SEPSIS 2020-03-23 17:13:00 Ty, Yvette Feliz chaz Rastafari - NOW AND REPEAT 2X EVERY [place] 3 HOURS ESTIMATED GFR 2020-03-23 17:13:00 Ty, Yvette Aldana odist [place] US DUPLEX VENOUS UPPER 2020-03-23 17:00:34 Ty, Yvette [place] Rastafari EXTREMITY LEFT [place] MRI UPPER EXTREMITY WO 2020-03-18 14:36:21 Lambert Rosenbaumton Rastafari CONTRAST LEFT POC GLUCOSE 2020-02-05 16:08:00 Luci Felton Me thodist POC GLUCOSE 2020-02-05 08:12:00 Luci Felton Me thodist POC GLUCOSE 2020-02-04 21:13:00 Luci Felton Me thodist HEPATITIS B SURFACE 2020-02-04 18:15:00 Homa Nolasco ANTIGEN HEPATITIS B SURFACE AB, 2020-02-04 18:15:00 Homa Nolasco QUANTITATIVE POC GLUCOSE 2020-02-04 16:55:00 Luci Felton Me thodist HEMODIALYSIS 2020-02-04 15:35:26 Homa Nolasco odist POC GLUCOSE 2020-02-04 13:06:00 Karli Campos VA AN ELECTIVE 2020-02-04 12:05:06 Nori Wiseman SUPRAGLOTTIC AIRWAY ECG 12-LEAD 2020-02-04 11:29:24 Donovan Dyer POC GLUCOSE 2020-02-04 10:56:00 Karli Campos POC PANEL 4 2020-02-04 10:54:00 Karli Campos BASIC METABOLIC PANEL 2020-02-04 10:50:00 Yolis Dyer ESTIMATED GFR 2020-02-04 10:50:00 Donovan Dyer XR CHEST 2 VW 2020-01-27 14:32:08 Donovan Dyer MelIsauro PARTIAL THROMBOPLASTIN 2020-01-27 14:04:00 Karli Campos TIME [...] Coffman Ann HEMODIALYSIS 2019-10-19 21:37:58 Homa Nolasco Meth odist POC GLUCOSE 2019-10-19 20:28:00 Luci Felton Me thodist POC GLUCOSE 2019-10-19 15:49:00 Luci Felton Me thodist VA AN ELECTIVE 2019-10-19 13:53:21 Kelly Zuñiga SUPRAGLOTTIC AIRWAY POC PANEL 4 2019-10-19 10:00:00 Karli Campos BASIC METABOLIC PANEL 2019-10-19 09:05:00 Karli Campos ESTIMATED GFR 2019-10-19 09:05:00 Karli Campos ECG PRE/POST OP 2019-10-16 13:48:14 Donovan Dyer HC COMPLETE BLD COUNT 2019-10-16 13:15:00 Karli Campos W/AUTO DIFF TYPE AND SCREEN 2019-10-16 13:15:00 Karli Campso PARTIAL THROMBOPLASTIN 2019-10-16 13:15:00 Karli Campos TIME (PTT) PROTHROMBIN TIME WITH INR 2019-10-16 13:15:00 Karli Campos HEMOGLOBIN A1C 2019-10-16 13:15:00 Donovan Dyer Plan of Care Planned Activity Planned Date Details Comments Source Future Scheduled 2023-05-[address] [facility] 00:[facility]:00 (procedure) [code = [facility] [id number]] Future Scheduled 2020-05-[address] [facility] Test 00:00:00 (#1) [code = [facility] INFLUENZA VACCINE (#1)] Future Scheduled 2020-04-23 INFLUENZA VACCINE [place] Test 00:00:00 [code = INFLUENZA VACCINE] Future Scheduled 2016-12-[address] [facility] Test 00:00:00 WELLNESS (YEAR 2 or Medical Center FIRST YEAR if no IPPE) [code = MEDICARE ANNUAL WELLNESS (YEAR 2 or FIRST YEAR if no IPPE)] Future Scheduled 2004 COVID-19 VACCINE [place] [facility]ast[facility] Test 00:00:00 (#1) [code = COVID-19 VACCINE (#1)] Future Scheduled 1998 DIABETES: RETINAL [place] [facility] Test 00:00:00 EYE EXAM [code = DIABETES: RETINAL EYE EXAM] Future Scheduled 1998 DIABETIC FOOT EXAM [place] [facility] Test 00:00:00 [code = DIABETIC FOOT EXAM] Encounters Start End Encounter Admission Attending Care Care Encounter Source Date/Time Date/Time Type Type Clinicians Facility Department ID 2019-01-07 Inpatient [id number] 11:16:20 2020-07-14 2020-07-14 Outpatient LUCI FELTON [facility] [id number] [place] 00:00:00 00:00:[address] 2020-07-06 2020-07-06 Outpatient ANDRES, [facility] [id number] [place] 00:00:00 00:00:00 IMRAN [address] 2020-07-04 2020-07-04 Outpatient ANDRES, [facility] [id number] [place] 00:00:00 00:00:00 IMRAN [address] 2020-06-22 2020-06-22 Outpatient ROSENBAUM, [facility] [id number] [place] 00:00:00 00:00:00 VINCENT [address] 2020-06-01 2020-06-01 Inpatient E [facility] [id number] 15:33:00 13:44:[address] [facility] 2020-05-25 2020-05-25 Outpatient ROSENBAUM, [facility] [id number] [place] 00:00:00 00:00:00 VINCENT [address] 2020-05-03 2020-05-03 Outpatient ROSENBAUM, [facility] [id number] [place] 00:00:00 00:00:00 VINCENT [address] 2020-05-02 2020-05-02 Outpatient ANDRES, [facility] [id number] [place] 00:00:00 00:00:00 IMRAN [address] 2020-04-27 2020-04-27 Outpatient ANDRES, [facility] [id number] [place] 00:00:00 00:00:00 IMRAN [address] 2020-04-04 2020-04-04 Outpatient KATE, [facility] [id number] [place] 00:00:00 00:00:00 UTTAM [address] 2020-04-01 2020-04-01 Outpatient KATE, [facility] [id number] [place] 00:00:00 00:00:00 UTTAM [address] 2020-04-01 2020-04-01 Outpatient KATE, [facility] [id number] [place] 00:00:00 00:00:00 UTTAM [address] 2020-03-23 2020-03-25 Inpatient LUCI FELTON [facility] [id number] [place] 00:00:00 00:00:[address] 2020-03-23 2020-03-23 Outpatient ROSENBAUM, [facility] [id number] [place] 00:00:00 00:00:00 VINCENT 016 Method i 2020-03-18 2020-03-18 Outpatient ROSENBAUM, [facility] [id number] [place] 00:00:00 00:00:00 VINCENT [address] 2020-03-11 2020-03-11 Outpatient ROSENBAUM, [facility] [id number] [place] 00:00:00 00:00:00 VINCENT 453 Method i 2020-02-04 2020-02-05 Outpatient LUCI FELTON [facility] [id number] [place] 00:00:00 00:00:00 906 Method i 2020-01-27 2020-01-27 Outpatient ANDRES [facility] [id number] [place] 00:00:00 00:00:00 IMRAN 472 Method i 2020-01-27 2020-01-27 Outpatient WOJCIECHOWS [facility] [id number] [place] 00:00:00 00:00:00 KI, 294 Method i DORIAN 2019-10-19 2019-10-20 Outpatient LUCI FELTON [facility] [id number] [place] 00:00:00 00:00:00 730 Method i 2019-08-24 2019-08-24 Outpatient ANDRES [facility] [id number] [place] 00:00:00 00:00:00 IMRAN 691 Method i 2019-07-24 2019-07-24 Outpatient MHSE [facility] [id number] MH 10:54:00 [facility]:54:[facility] 2019-07-08 2019-07-08 Outpatient MHSE [facility] [id number] MH 12:34:00 12:34:[address] [facility] 2019-03-20 2019-03-20 Outpatient MHSE [facility]SE [id number] MH 16:06:00 16:06:[address] [facility] 2019-03-20 2019-03-20 Outpatient MHSE MHSE [id number] MH 12:22:00 12:22:[address] [facility] 2019-02-27 2019-02-27 Outpatient MHSE MHSE [id number] MH 11:11:00 11:11:[address] [facility] 2019-01-21 2019-01-21 Outpatient MHSE MHSE [id number] 09:45:00 09:45:00 [facility] 2018-01-28 2018-01-28 Outpatient EDUARDO OLGUIN [facility] [place] CARDIO [id number] Eddie 07:49:00 23:59:00 [facility] Results [...] position: supinePatient monitoring: EKG, HR, BP and [id number]: rightBlock type: supraclavicularInjection technique: single-shotultrasound guided - [...] Atrial rate (test code = 255) 91 VA interval (test code = 266) 202 QRSD [...] Anterolateral infarct are no longer present- Donovan JamesistCOVID-19 qualitative [id number] 18:31:28 Test Item Value Reference Range Interpretation Comments Interpretation (test Negative results do code = 7513615) not preclude 2019-nCoV infection and should not be used as the sole basis for treatment or other patient management decisions. Negative results must be combined with clinical observations, patient history, and epidemiological information. COVID-19 qualitative Not-Detected Not-Detected PCR result (test code = 79788-8) COVID-19 qualitative See link below for C ase Number: PCR (test code = PDF Lab Report [id number]) [facility] MethodistOR [place] < 1 [id number] 16:53:41Hm Interface, Radiology Results Incoming - 07/14/2020 4:56 PM CDTEXAMINATION: OR [place] < 1 HOURCLIN ICAL HISTORY:IMPRESSION:Fluoroscopy was provided. No radiologist present. 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 N alonzo: Alfonso code = 09079-9) EricDevice I D: [id number] able: RN Notified Donovan MethodistType and [id number] 15:37:00 Test Item Value Reference Range Interpretation Comments ABO grouping (test code = 883-9) O Rh type (test code = 12390-7) POS Antibody screen (gel) (test code = NEG 890-4) Donovan JamesistECG ED Preliminary Interpretation - Not an [id number] 12:04:41Josep Sheehan MD 07/14/2020 12:21 PMECG ED Preliminary Interpretation - Not an OrderPerformed by: Josep Sheehan MDAuthorized by: Josep Sheehan MD ECG reviewed by ED Physician in theabsence of a seat trimmer: yes Interpretation: Interpretation: non-specific Rate: ECG rate: 91 ECG rate assessment: normal Rhythm: Rhythm: sinus rhythm Ectopy: Ectopy: none ST segments: ST segments: Non-specificT waves: T waves: normal [place] MethodistBasic metabolic [id number] 11:41:24 Test Item Value Reference Range Interpretation Comments Sodium (test code = 2951-2) 132 135- 148 mEq/L L Potassium (test code = 2823-3) 4.8 3.5- 5.0 mEq/L Chloride (test code = 5-0) 98 98- 112 mEq/L CO2 (test code = 2027-9) 21 24- 31 mEq/L L Anion gap (test code = 47281-9) 13@ANIO 7- 15 mEq/L BUN (test code = 3094-0) 58 mg/dL 6-20 H Creatinine (test code = 2160-0) 13.54 mg/dL 0.7-1.2 H Glucose (test code = 2345-7) 128 mg/dL 65-99 H Calcium (test code = 51716-9) 10.6 mg/dL 8.3-10.2 H Lab Interpretation (test code = Abnormal 09682-8) [place] MethodistEstimated [id number] 11:41:24 Test Item Value Reference Range Interpretation Comments Estimated GFR (test 5 mL/min/1.73 m2 A Lori seaman Units code = 5488) InterpretationG 1 >=90 Mee l or highG2 60-89 Mildly decrease dG3a 45-59 Mil dly to moderately decr uszdkV7l 30-44 Moderately to s everely decreasedG4 15-29 Severe ly decreasedG5 <15 Kidney miko lureThe eGFR was calcul ated using the Chron ic Kidney Disease Epidemiology Collaboration ( CKD-EPI) equation. Interpretation is based on recommendati ons of the National [facility] [place]-Kidn ey Disease Outcome s Quality Initiat lizz (NKF-KDOQI) pub lished in 2013. Lab Interpretation Abnormal (test code = 35279-6) Man MethodistPartial thromboplastin time, jcvhebmez3420-59-98 11:30:06 Test Item Value Reference Range Interpretation Comments PTT (test code = 32.8 23.0- 36.0 sec PTT thera peutic range for 3173-2) unfractionated heparin is61.0-112.0 se conds which corresponds to Anti-Xa0.3-0.7 U/ml. Man ErikaistProthrombin time with [id number] 11:29:58 Test Item Value Reference Range Interpretation Comments Prothrombin time (test 15.7 11.5- 14.5 sec H code = 5902-2) INR (test code = 1.3 [facility] 27691-8) Normalized Rati o (INR) is a therapeuti c monitoring tool for patients who ar e stable on oral anticoagulant t herapy. An INR of 2.0-3 .0 is suggested for d eep vein thrombosis/pulm onary embolism. Lab Interpretation Abnormal (test code = 77240-1) Man MethodistXR Chest 1 Vw Pqdbskge7680-66-81 11:23:19 Interface, Radiology Results Incoming - 07/14/2020 11:26 AM CDTSINGLE VIEW CHEST, 07/14/2020Clinical History: Missed dialysis.Technique: Single, portable AP view chest.Comparison: 05/02/2020Impression:1.Cardiomegaly with mild pulmonary edema and central pulmonary artery enlargement.2.No sizable pleural effusion. No pneumothorax.3.Intact skeleton.Man ErikaistCBC with platelet and mamksxhgdsyh4113-40-79 11:22:35 Test Item Value Reference Range Interpretation Comments WBC (test code = 67321-7) 8.3 4.5- 11.0 k/uL RBC (test code = 70667-5) 3.89 m/uL 4.4-6 L HGB (test code = 718-7) 11.2 g/dL 14-18 L HCT (test code = 4544-3) 36.2 % 41-51 L MCV (test code = 787-2) 93.1 fL 82-100 MCH (test code = 785-6) 28.8 pg 27-34 MCHC (test code = 786-4) 30.9 g/dL 31-37 L RDW - SD (test code = 82587-5) 57.1 fL 37-55 H MPV (test code = 26589-8) 10.4 fL 6.9-11 Platelet count (test code = 213 K/uL 150-400 12872-6) Nucleated RBC (test code = 12463-1) 0.00 /100 WBC Neutrophils (test code = 08904-0) 69.6 % 39-69 H Lymphocytes (test code = 19074-5) 15.6 % 25-45 L Monocytes (test code = 69481-8) 7.7 % 0-10 Eosinophils (test code = 21793-1) 6.7 % 0-5 H Basophils (test code = 48685-0) 0.2 % 0-1 Immature granulocytes (test code = 0.2 % 0-1 15262-3) Lab Interpretation (test code = Abnormal 58295-8) [facility]istPOC [id number] 10:30:25 Test Item Value Reference Range Interpretation Comments POC sodium (test code = 135 mmol/L 879-986 6865-0) POC potassium (test 4.6 mmol/L 3.5-5 code = 6298-4) POC glucose (test code 104 mg/dL 65-99 H Opera tor Name: = 2339-0) Jorgito SagastumeUriel ID : [id number] POC hemoglobin (test 14.6 g/dL 14-18 code = 718-7) POC hematocrit (test 43 % 41-51 code = 4544-3) Lab Interpretation Abnormal (test code = 52664-6) [place] GanolutdnWxzjgg9632-66-13 14:20:32Marisol Toledo 07/06/2020 2:55 PMAirway Date/Time: 07/06/2020 2:20 PMPerformed by: Marisol ToledooAuthorized by: Mike Og MD Location: ORUrgency: ElectiveDifficult Airway: No Anesthesiologist: Mike Og, MDResident/DOCUMENT CONTROL CLERK/AA: Rodrigo ToledoaPerformed by: resident/DOCUMENT CONTROL CLERK/AAPreoxygenated with 100% O2: Yes C-spine Precautions Maintained [...] adequate. No damage to oropharynx. VSS.Donovan VillavicencioHemoglobin [id number] 15:25:16 Test Item Value Reference Range Interpretation Comments Hemoglobin A1C (test 6.7 % 4-5.6 H HbA1c c utoffs for code = 93392-2) diagnosing diabetes:4.0% - 5.6% = normal5.7% - 6.4% = increased risk for diabetes (prediabetes)9> =6.5% = hzdirhgt2Dufk s for glycemic contro l (ADA 2016)< 7.0% Ta rget for non adults with nivia betes. More or less stringent targe ts may be appropriate for individual eleanor ents. <7.5% Target for Children and adolescents wit h type 1 diabetes. Lab Interpretation (test Abnormal code = 91566-6) Donovan VillavicencioECG Pre/Post Sw1419-04-07 14:47:56 Test Item Value Reference Range Interpretation Comments Ventricular rate (test 104 code = 253) Atrial rate (test code 104 = 255) VA interval (test code 180 = 266) QRSD [...] in initial forces of Lateral leads- Donovan VillavicencioQlygedpnwDtfbqskpe9108-66-05 11:09:00 Test Item Value Reference Range Interpretation Comments Potassium (test code = 5.4 meq/L 3.6-5.5 Speci men 2823-3) slightly hemolyzed JOHN (test code = JOHN) Dental Equipment Mechanic ID - ADMIN Lab Interpretation Normal (test code = 97777-5) [facility]2020-[facility] 11:09:00 Test Item Value Reference Range Interpretation Comments POTASSIUM (BEAKER) 5.4 meq/L 3.6-5.5 Specimen slightly (test code = 379) hemolyzed Dental Equipment Mechanic ID - ADMINPOC-Glucose sjfhz0851-80-88 10:48:00 Test Item Value Reference Range Interpretation Comments POC-Glucose Meter (test 93 mg/dL 70-110 : TE STED AT [facility] code = 1538) [address] [facility] [address]: Dental Equipment Mechanic/Techni oscar ID = [id number] for Melani Yañez cca Lab Interpretation (test Normal code = 31196-3) [facility] HospitalPOCT-GLUCOSE [id number] 10:48:00 Test Item Value Reference Range Interpretation Comments POC-GLUCOSE METER 93 mg/dL 70-110 : TESTED A T [facility] [address] (BEAKER) (test code = [address]) [facility] [address]: Dental Equipment Mechanic/Techni oscra ID = [id number] for Fatou Walden OSH-FHLQBLG5907-17-07 00:00:00Ordered by an unspecified provider.[facility] (Asymptomatic ONLY)2020-06-25 00:02:00 Test Item Value Reference Range Interpretation Comments SARS-COV2/RT-PCR Negative Not Detected, (test code = Negative, See 95026-6) external report for linked test SARS-COV-2 [facility] PERFORMING LAB (test code = 88614-7) JOHN (test code = Negative result for [...] of the Act. Fact Sheet for Healthcare Providers:https://www.[employer]/sites/default/f ernestine/product/documents/F act_Sheet_HC_Providers_L gpc_DCEV-DcZ-8.pdf Fact Sheet for Healthcare Patients:https://www.[employer]/sites/default/fi les/product/documents/Fa ct_Sheet_Patients_Lyra_S ARS-CoV-2.pdf Performing Laboratory:[facility], [place] [address] [place], [place] [address]ARS-COV2/RT-PCR ([facility])2020-06-25 00:02:00 Test Item Value Reference Range Interpretation Comments SARS-COV2/RT-PCR (test Negative Not Detected, Negative, code = 5043224) See external report for linked test SARS-COV-2 PERFORMING LAB [facility] (test code = 0244510) Negative result for this test determines that [...] 564(g) of the Act.Fact Sheet for Healthcare Providers:https://www.[employer]/sites/default/files/product/documents/Fact_Shee c_ZJ_Lsfkdjfpg_Lbsw_AMWE-CoY-0.pdfFact Sheet for Healthcare Patients:https://www.[employer]/sites/default/files/product/ documents/Stxg_Yhlnu_Tqxtryyd_Ults_NVYJ-XoC-9.pdfPerforming Laboratory:[address] [address]YCW with platelet count + automated svbf0113-87-54 14:04:00 Test Item Value Reference Range Interpretation [...] MM L 777-3) MPV (test code = 01600-3) 9.3 fL 6-11.5 nRBC (test code = [...] normal. Lab Interpretation (test Abnormal code = 04003-5) [facility] W/PLT COUNT & AUTO AAKADUHVCCQC5896-16-36 14:04:00 Test Item Value Reference Range Interpretation [...] (test code = 890-4) NEGATIVE ECHO [facility] Metabolic Pefvn2490-33-57 13:11:00 Test Item Value Reference Range Interpretation [...] (test code = 11.1 mg/dL 8.5-10.5 H 87834-8) EGFR (test code = 7 mL/min/1.73 [place] [address]-5) NOT ACCURATE CREATININE CLEARANCE IN PREDICTING GLOMERULAR FILTRATION RATE . ESTIMATED GFR I S NOT APPLICABLE FOR DIALYSIS PATIENTS. JOHN (test code = JOHN) Dental Equipment Mechanic ID - ADMIN Lab Interpretation Abnormal (test code = 96828-4) [facility] METABOLIC [id number] 13:11:00 Test Item Value Reference Range Interpretation [...] S NOT APPLICABLE FOR DIALYSIS PATIEN TS. Dental Equipment Mechanic ID - ADMINPT/[id number] 13:10:00 Test Item Value Reference Range Interpretation Comments Protime (test code = 12.4 9.3- 12.0 sec H 5902-2) INR (test code = 1.15 <=5.90 6301-6) PTT (test code = 27.7 23.0- 35.0 sec 40622-4) JOHN (test code = JOHN) RECOMMENDED COUMADIN/WARFARIN INR THERAPY RANGESSTANDARD DOSE: 2.0 - 3.0 Includes: PROPHYLAXIS for venous thrombosis, systemic embolization; TREATMENT for venous thrombosis and/or pulmonary embolus.HIGH RISK: Target INR is 2.5-3.5 for patients with mechanical heart valves.Final Information (Auto Output)Final Information (Auto Output)Final Information (Auto Output) Lab Interpretation Abnormal (test code = 81589-3) [facility] HospitalPT/[id number] 13:10:00 Test Item Value Reference Range Interpretation [...] mg/dL 70-110 H : TESTED A T [facility] [address] (BEAKER) ([address] [facility] [address] = [address]) [facility] [address]: Dental Equipment Mechanic/Techni oscar ID = [id number] for Makayla Cardenas Hepatitis B surface dykwjpgc2257-63-44 11:33:00 Test Item Value Reference Range Interpretation Comments Hep B S Ab (test code = 59.2 <8.0 mIU/mL H 55877-3) JOHN (test code = JOHN) Dental Equipment Mechanic ID - ASIYA C Lab Interpretation (test Abnormal code = 09609-8) [facility] HospitalHEPATITIS B SURFACE [id number] 11:33:00 Test Item Value Reference Range Interpretation Comments HEPATITIS B SURFACE ANTIBODY 59.2 mIU/mL <8.0 H (BEAKER) (test code = 647) Dental Equipment Mechanic ID - ASIYA CPOCT-GLUCOSE [id number] 04:50:00 Test Item Value Reference Range Interpretation Comments POC-GLUCOSE METER 140 mg/dL 70-110 H : TESTED A T [facility] [address] (BEAKER) (test code [address], = 1538) [place] [address]: Dental Equipment Mechanic/Techni oscar ID = [id number] for Obvaibhav syl Ifolindainwa POCT-GLUCOSE [id number] 22:25:00 Test Item Value Reference Range Interpretation Comments POC-GLUCOSE METER 117 mg/dL 70-110 H : TESTED A T [facility] [address] (BEAKER) (test code [address], = 1538) [place] [address]: Dental Equipment Mechanic/Techni oscar ID = [id number] for Cristel streeter Ifroman Hepatitis B surface rkiqaux1250-97-55 21:34:00 Test Item Value Reference Range Interpretation Comments HBsAg Screen (test code Nonreactive Nonreactive = 5195-3) JOHN (test code = JOHN) Dental Equipment Mechanic ID - ERIKA Lab Interpretation (test Normal code = 36099-2) [facility] HospitalHEPATITIS B SURFACE [id number] 21:34:00 Test Item Value Reference Range Interpretation Comments HEPATITIS B SURFACE ANTIGEN (2) Nonreactive Nonreactive (BEAKER) (test code = 2585) Dental Equipment Mechanic ID - ERIKAPOCT-GLUCOSE NBHSF3094-19-38 18:50:00 Test Item Value Reference Range Interpretation Comments POC-GLUCOSE METER 107 mg/dL 70-110 : TESTED A T [facility] [address] (BEAKER) (test code [address], = 1538) [place] [address]: Dental Equipment Mechanic/Techni oscar ID = [id number] for Millie Ojeda POCT-GLUCOSE HHRLM8593-76-64 17:31:00 Test Item Value Reference Range Interpretation Comments POC-GLUCOSE METER 64 mg/dL 70-110 L : TESTED A T [facility] [address] (BEAKER) (test code = [address], [address]) [place] [address]: Dental Equipment Mechanic/Techni oscar ID = [id number] for Millie Ojeda SARS-COV2/RT-PCR ([facility])2020-05-05 16:35:00 Test Item Value Reference Range Interpretation Comments SARS-COV2/RT-PCR (test Negative Not Detected, Negative, code = 2148799) See external report for linked test SARS-COV-2 PERFORMING LAB [facility] (test code = 7834645) Negative result for this test determines that [...] 564(g) of the Act.Fact Sheet for Healthcare Providers:https://www.[employer]/sites/default/files/product/documents/Fact_Shee t_PM_Abvwqxzce_Bhai_XHYT-BbO-3.pdfFact Sheet for Healthcare Patients:https://www.[employer]/sites/default/files/product/ documents/Ptrl_Bslfx_Jtoiqerw_Ycrh_AMZS-DqC-3.pdfPerforming Laboratory:[facility], [place] [address]UQUZ-LRWUNWX METER 2020-05-05 13:07:00 Test Item Value Reference Range Interpretation Comments POC-GLUCOSE METER 116 mg/dL 70-110 H : TESTED A T [facility] [address] (BEAKER) (test code [address], = 1538) [place] [address]: Dental Equipment Mechanic/Techni oscar ID = [id number] for Eloisa Ojedainor POCT-GLUCOSE [id number] 12:24:00 Test Item Value Reference Range Interpretation Comments POC-GLUCOSE METER 55 mg/dL 70-110 L : TESTED A T [facility] [address] (BEAKER) (test code = [address], [address]) [place] [address]: Dental Equipment Mechanic/Techni oscar ID = [id number] for Eloisa Ojedainor POCT-GLUCOSE [id number] 11:38:00 Test Item Value Reference Range Interpretation Comments POC-GLUCOSE METER 51 mg/dL 70-110 L : TESTED A T [facility] [address] (BEAKER) (test code = [address], [address]) [place] [address]: Dental Equipment Mechanic/Techni oscar ID = [id number] for Eloisa Ojedainor Comprehensive metabolic xwohp0623-01-25 06:51:00 Test Item Value Reference Range Interpretation Comments Protein, Total (test 7.6 6.0- 8.5 gm/dL code = 2885-2) Albumin (test code = 3.7 g/dL 3.5-5 10574-0) Alkaline Phosphatase 222 U/L 30-115 H (test [...] Calcium (test code = 9.8 mg/dL 8.5-10.5 46818-6) AST (test code = 75 U/L 5-40 H 1920-8) ALT (test code = 31 U/L 5-50 1742-6) EGFR (test code = 4 mL/min/1.73 [place] [address]-7) NOT ACCURATE CREATININE CLEARANCE IN PREDICTING GLOMERULAR FILTRATION RATE . ESTIMATED GFR I S NOT APPLICABLE FOR DIALYSIS PATIENTS. JOHN (test code = JOHN) Dental Equipment Mechanic ID - [id number] Lab Interpretation Abnormal (test code = 02441-8) [facility] HospitalCOMPREHENSIVE METABOLIC [id number] 06:51:00 Test Item Value Reference Range Interpretation [...] S NOT APPLICABLE FOR DIALYSIS PATIEN TS. Dental Equipment Mechanic ID - [id number]-MVANQJT [id number] 06:23:00 Test Item Value Reference Range Interpretation Comments POC-GLUCOSE METER 104 mg/dL 70-110 : TESTED A T [facility] [address] (BEAKER) (test code [address], = 1538) [place] [address]: Dental Equipment Mechanic/Techni oscar ID = [id number] for Nael Hughes ph POCT-GLUCOSE [id number] 21:00:00 Test Item Value Reference Range Interpretation Comments POC-GLUCOSE METER 176 mg/dL 70-110 H : TESTED A T [facility] [address] (BEAKER) (test code [address], = 1538) [place] [address]: Dental Equipment Mechanic/Techni oscar ID = [id number] for Nael Hughes ph Troponin [id number] 17:22:00 Test Item Value Reference Range Interpretation Comments Troponin I (test code = 0.05 ng/mL 0-0.15 73655-7) JOHN (test code = JOHN) Troponin I [...] AGONZARADHAZ Lab Interpretation (test Normal code = 23475-7) [facility] HospitalTROPONIN [id number] 17:22:00 Test Item Value Reference Range Interpretation [...] failure, acidosis, acute neurological disease, and persistent tachyarrhythmia.Dental Equipment Mechanic ID - MIGUELZLipid panel 2020-05-04 17:17:00 Test Item Value Reference Range Interpretation Comments Triglycerides (test 76 mg/dL code = 2571-8) Cholesterol (test 79 mg/dL code = 2093-3) HDL (test code = 38 mg/dL 2085-9) LDL Calculated (test 26 mg/dL code = 82779-1) JOHN (test code = JOHN) Triglyceride Reference Range: Low Risk <150 Borderline 150-199 High Risk 200-499 Very High Risk >=500 Cholesterol Reference Range: Low Risk <200 Borderline 200-239 High Risk >240 HDL Cholesterol Reference Range: Low Risk >=60 High Risk <40 LDL Cholesterol Reference Range: Optimal <100 Near Optimal 100-129 Borderline 130-159 High 160-189 Very High >=190 Dental Equipment Mechanic ID - ALENALEZOperator ID - ALENALEZOperator ID - ALENARADHALisa [facility] HospitalHepatic function [id number] 17:17:00 Test Item Value Reference Range Interpretation Comments Protein, Total (test code 9.4 6.0- 8.5 gm/dL H = 2885-2) Albumin (test code = 4.6 g/dL 3.5-5 55932-7) Total Bilirubin (test 0.7 mg/dL 0.1-1.2 code = 1975-2) Bilirubin, Direct (test 0.4 mg/dL 0-0.4 code = 1968-7) Alkaline Phosphatase 235 U/L 30-115 H (test code = 6768-6) AST (test code = 1920-8) 27 U/L 5-40 ALT (test code = 1742-6) 11 U/L 5-50 JOHN (test code = JOHN) Dental Equipment Mechanic ID - RAYO Lab Interpretation (test Abnormal code = 74500-6) [facility] HospitalLIPID [id number] 17:17:00 Test Item Value Reference Range Interpretation [...] Borderline 130-159 High 160-189 Very High >=190 Dental Equipment Mechanic ID - ALENALEZOperator ID - ALENALEZOperator ID - RAYO HEPATIC FUNCTION [id number] 17:17:00 Test Item Value Reference Range Interpretation [...] (test code = 11 U/L 5-50 347) Dental Equipment Mechanic ID - NKRFVSTHSQlllhfxmy6133-18-98 17:15:00 Test Item Value Reference Range Interpretation Comments Magnesium (test code = 2.8 mg/dL 1.5-3 76056-3) JOHN (test code = JOHN) Dental Equipment Mechanic ID - HOLDENWERO Lab Interpretation (test Normal code = 95886-4) [facility] HospitalMAGNESIUM2020-08-12 17:15:00 Test Item Value Reference Range Interpretation Comments MAGNESIUM (BEAKER) (test code = 2.8 mg/dL 1.5-3.0 627) Dental Equipment Mechanic ID - RAYOBASIC METABOLIC [id number] 17:13:00 Test Item Value Reference Range Interpretation [...] S NOT APPLICABLE FOR DIALYSIS PATIEN TS. Dental Equipment Mechanic ID - XFCEDKYRZAjdzjgpjlc6487-67-39 17:11:00 Test Item Value Reference Range Interpretation Comments Phosphorus (test code = 4.6 mg/dL 2.5-4.5 H 2777-1) JOHN (test code = JOHN) Dental Equipment Mechanic ID - RAYO Lab Interpretation (test Abnormal code = 14105-2) [facility] HospitalPHOSPHORUS2020-08-12 17:11:00 Test Item Value Reference Range Interpretation Comments PHOSPHORUS (BEAKER) (test code = 4.6 mg/dL 2.5-4.5 H 604) Dental Equipment Mechanic ID - RAYOProthrombin time/[id number] 17:06:00 Test Item Value Reference Range Interpretation [...] Output) Lab Interpretation Normal (test code = 14912-8) [facility] HospitalPROTHROMBIN TIME/[id number] 17:06:00 Test Item Value Reference Range Interpretation [...] Information (Auto Output)CBC W/PLT COUNT & AUTO [id number] 16:50:00 Test Item Value Reference Range Interpretation [...] 0-0 PERCENT (BEAKER) (test code = 2801) Sgrkpx5137-08-72 16:08:37PateChantal padron CRNA 05/02/2020 4:09 PMAirwayDate/Time: 05/02/2020 3:56 PMPerformed by: Chantal Gates CRNAAuthorized by: Tirso Heller MD Location: ORUrgency: ElectiveDiformerly [facility]t [facility] Hospitalay: No Anesthesiologist: Tirso Heller MDResidaniat/LINO/AA: Chantal Gates CRNAPerformed by: resident/LINO/AAPreoxygenated with 100% O2: Yes C-spine Precautions Maintained Throughout: Yes Mask Ventilation: Easy mask (2 hands)Final Airway Type: Supraglottic airwayFinal LMA: I-GelLMA Size: 5Number of Attempts at Approach: 1[facility] MethodistComprehensive metabolic dxntf0974-28-56 11:59:06 Test Item Value Reference Range Interpretation Comments Sodium (test code = 2951-2) 133 135- 148 mEq/L L Potassium (test code = 2823-3) 4.1 3.5- 5.0 mEq/L Chloride (test code = 2075-0) 101 98- 112 mEq/L CO2 (test code = 2027-9) 23 24- 31 mEq/L L Anion gap (test code = 95595-6) 9@ANIO 7- 15 mEq/L BUN (test code = 3094-0) 51 mg/dL 6-20 H Creatinine (test code = 2160-0) 11.41 mg/dL 0.7-1.2 H Glucose (test code = 2345-7) 100 mg/dL 65-99 H Calcium (test code = 49317-5) 9.2 mg/dL 8.3-10.2 Protein (test code = [...] 1974-10) Lab Interpretation (test code = Abnormal 87478-4) [place] MethodistPO panel [id number] 10:11:15 Test Item Value Reference Range Interpretation Comments POC sodium (test code = 129 mmol/L 135-148 L 2947-0) POC potassium (test 5.2 mmol/L 3.5-5 H code = 6298-4) POC hematocrit (test 57 % 41-51 H code = 4544-3) POC glucose (test code 119 mg/dL 65-99 H Opera tor Name: = 2339-0) Bull Bereket ID : [id number] POC hemoglobin (test 19.4 g/dL 14-18 H code = 718-7) Lab Interpretation Abnormal (test code = 55042-4) [place] KwsofplegMepyoy1586-47-23 12:29:51Lauren Fung DOCUMENT CONTROL CLERK 04/04/2020 12:30 PMAirwayDate/Time: 04/04/2020 12:21 PMPerformed by: Lauren Fung CRNAAuthorized by: Geetha Hartley MD Location: ORUrgency: ElectiveAnesthesiologist: Geetha Hartley, DAVONesident/DOCUMENT CONTROL CLERK/AA: Lauren Fung CRNAPerformed by: anesthesiologistPreoxygenated with 100% O2: Yes C-spine Precautions Maintained Throughout: Yes Mask Ventilation: Easy maskFinal Airway Type: Supraglottic airwayFinal LMA: I-GelLMA Size: 5Number of Attempts at Approach: 1[facility] MethodistXR Chest 2 [id number] 15:27:15Hm Interface, Radiology Results 04/01/2020 3:30 PM CDTEXAMINATION: XR CHEST 2 VWCLINICAL HISTORY: Z01.818 Encounter for other preprocedural examination, PRE OP TESTINGIMPRESSION:Heart is slightly enlarged. Lungs are clear. There are no effusions. Regional skeleton is intact.[id number] [place] MethodistBlood culture, aerobic & [id number] 01:33:08 Test Item Value Reference Range Interpretation Comments Blood culture No growth Specimen isolate (test after 5 days InformationSpe [facility] code = 600-7) of Source: BloodS pecimen incubation. Site: Arm, righ t [place] MethodistCT Upper Extremity W Contrast [id number] 22:22:43Hm Interface, Radiology Results 03/24/2020 10:25 PM [...] evaluated with thyroid ultrasound on an outpatient basis.[id number] MethodistHepatitis B surface [id number] 10:56:18 Test Item Value Reference Range Interpretation Comments Hepatitis B surface Ag (test Non-reactive Non-reactive code = 5195-3) [place] ErikaistLactic acid level, SEPSIS - Now and repeat 2x every 3 hours 2020-03-24 00:31:48 Test Item Value Reference Range Interpretation Comments Lactic acid (test code = 62568-6) 0.8 mmol/L 0.5-2.2 [place] ErikaistUs duplex venous upper [id number] 17:06:14Hm Interface, Radiology Results Incoming - 03/23/2020 5:09 PM CDTEXAMINATION: US DUPLEX VENOUS [...] by YVETTE NGUYEN at 03/23/2020 5:05 PM. [facility]-[id number] MethodistMRI Upper Extremity Wo Contrast [id number] 14:43:27Hm Interface, Radiology Results 03/18/2020 2:46 PM [...] tendon mechanism.4.Additional findings and details as above.Man MethodistHepatitis B surface Ab, [id number] 09:31:55 Test Item Value Reference Range Interpretation [...] HBs 9.99 IU/L or less .. ..... Goaluokp12.00 I U/L or greater .... PositiveResults greater than 1,000.00 I U/L are reported as gre ater than 1,000.00 IU/L. This assay should no t be used for blood donor screening, asso ciated re-entry protoc ols, or for screening H uman Cell, Tissues a nd Cellular and Tissue-Based Pr oducts (HCT/P).Perform ed by [facility],[address], [place] [address] vkh .[facility], Brent callejas MD, Lab. Director [place] ErikaistHepatitis B surface [id number] 22:34:38 Test Item Value Reference Range Interpretation Comments Hepatitis B surface Ab (test code = Reactive Non-reactive A 41785-4) Lab Interpretation (test code = Abnormal 35632-3) [facility] CenterAdmsrwmwwMqzwwj3459-90-06 12:05:06Nori Wiseman CRNA 02/04/2020 12:05 PMAirwayDate/Time: 02/04/2020 12:05 PMPerformed by: Nori Wiseman CRNAAuthorized by: Dorian Dyer MD Location: ORUrgency: ElectiveDifficult Airway:No Anesthesiologist: Dorian Dyer, William/DOCUMENT CONTROL CLERK/AA: Nori Wiseman CRNAPerformed by: resident/LINO/AAPreoxygenated with 100% O2: Yes C-spine Precautions Maintained Throughout: Yes Mask Ventilation: Not attemptedFinal Airway Type: Supraglottic airwayFinal LMA: I-GelLMA Size: 5 Number of Attempts at Approach: ousmaxim [id number] 13:53:21 Kelly Zuñiga MD 10/19/2019 1:54 PMAirwayPerformed by: Kelly Zuñiga MDAuthorized by: Kelly Zuñiga MD Location: ORUrgency: ElectiveDifficult Airway: No Anesthesiologist: Kelly Zuñiga MDResident/DOCUMENT CONTROL CLERK/AA: Lauren Fung CRNAPerformed by: resident/DOCUMENT CONTROL CLERK/AA Preoxygenated with 100% O2: Yes C-spine Precautions Maintained Throughout: Yes Mask Ventilation: Not attemptedFinal Airway Type: Supraglottic airwayFinal LMA: I-GelLMA Size: 5Number of Attempts at Approach: 1Houston Lucio, CV ACCESS, [id number] 10:40:00FINAL REPORT Procedure title: Tunneled right internal [...] MDReport Verified Date/Time: 10/27/2018 10:40:38 Reading Location: [place] [address] Angio Body Reading Room [facility] [id number] 10:36:00 Test Item Value Reference Range Interpretation Comments CULTURE ([facility]) (test No anaerobes isolated code = 1095) POCT-GLUCOSE [id number] 18:17:00 Test Item Value Reference Range Interpretation Comments POC-GLUCOSE METER 129 mg/dL 70-110 H TESTED AT [address] ([facility]) (test code [facility] [place] = 1538) [address] BASIC METABOLIC [id number] 14:45:00 Test Item Value Reference Range Interpretation [...] PATIEN TS. CBC W/PLT COUNT & AUTO [id number] 14:35:00 Test Item Value Reference Range Interpretation [...] (test code = 416) BASOPHILS ABSOLUTE COUNT ([facility]) 0.00 K/ L 0.00-0.20 (test code = 417) POCT-GLUCOSE [id number] 11:29:00 Test Item Value Reference Range Interpretation Comments POC-GLUCOSE METER 189 mg/dL 70-110 H TESTED AT [facility] ([facility]) (test code [facility] [place] = 1538) [id number] POCT-GLUCOSE [id number] 05:51:00 Test Item Value Reference Range Interpretation Comments POC-GLUCOSE METER 117 mg/dL 70-110 H TESTED AT [address] ([facility]) (test code [facility] [place] = 1538) [id number] POCT-GLUCOSE [id number] 21:42:00 Test Item Value Reference Range Interpretation Comments POC-GLUCOSE METER 120 mg/dL 70-110 H TESTED AT [address] ([facility]) (test code [facility] [place] = 1538) [address] POCT-GLUCOSE [id number] 20:08:00 Test Item Value Reference Range Interpretation Comments POC-GLUCOSE METER 128 mg/dL 70-110 H TESTED AT [address] ([facility]) (test code [facility] [place] = 1538) [address] [id number] 17:01:00 Test Item Value Reference Range Interpretation Comments PHOSPHORUS ([facility]) (test code = 6.9 mg/dL 2.5-4.5 H 604) POCT-GLUCOSE [id number] 12:06:00 Test Item Value Reference Range Interpretation Comments POC-GLUCOSE METER 122 mg/dL 70-110 H TESTED AT [address] ([facility]) (test code [facility] [place] = 1538) [address] TISSUE [id number] 09:54:00Surgical Pathology Report Case: [id number] Authorizing Provider: Lisa Greenberg MD Collected: 01/31/2018 1110 Ordering Location: [facility] Med Surg 5th Floor Received: 01/31/2018 1249 Pathologist: Sherri Zarate MD Specimen: Leg, Left Lower, NECROTIC TISSUE LEFT LOWER LEG SKIN AND SOFT TISSUE, LEFT LOWER LEG, EXCISION: - SKIN AND SUBCUTIS WITH NECROSIS, ACUTE AND CHRONIC INFLAMMATION, BACTERIAL COLONIZATION AND CALCIFICATION OF BLOOD VESSELS, CONSISTENT WITH CALCIPHYLAXIS (SEE COMMENT) Signing Pathologist Direct Phone Line: [phone] signed by Sherri Zarate MD on 02/03/2018 at 9:54 AMCalcification of small and medium sized blood vessels are identified along with extensive necrosis of tissue. 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 590[address]Ixj givenLeg, left lower, necrotic tissue left lower legThe specimen is received in fixative and designated as "leg, left lower" and consists of skin and subcutaneous tissue (6.0 x 4.0 x 2.0 cm). The overlying skin is brown-patterson and smooth. No discrete lesions. The underlying soft tissue is soft and necrotic. Inspector Fuel Hose sectionsof the skin and soft tissue are submitted into A1 to A3. MG/pl Performed [facility], Department of Pathology, [address] [place] [address], DyyawbPm. [facility], Department of Pathology, [address] [place] [address], Tel . [facility], Department of Pathology, [address] [place] [address], SXT W/PLT COUNT & AUTO [id number] 09:08:00 Test Item Value Reference Range Interpretation [...] code = 1+ few 961) BASIC METABOLIC [id number] 08:39:00 Test Item Value Reference Range Interpretation Comments SODIUM (BEAKER) 131 meq/L 135-148 L (test code = 381) POTASSIUM (BEAKER) 5.0 meq/L 3.6-5.5 (test code = 379) CHLORIDE (BEAKER) 97 meq/L 98-106 L (test code = 382) CO2 (BEAKER) (test 25 meq/L 20-29 code = 355) BLOOD UREA NITROGEN 41 mg/dL 10-26 H ([facility]) (test code = 354) CREATININE (AKER) 9.74 mg/dL 0.50-1.20 H (test code = 358) GLUCOSE RANDOM 88 mg/dL 70-110 ([facility]) (test code = 652) CALCIUM (BEAKER) 8.7 mg/dL 8.5-10.5 (test code = 697) EGFR ([facility]) (test 8 mL/min/1.73 ESTIMAT ED GFR IS code = 1092) sq m NOT ACCURATE CREATININE CLEARANCE IN PREDICTING GLOMERULAR FILTRATION RATE . ESTIMATED GFR I S NOT APPLICABLE FOR DIALYSIS PATIEN TS. HEMOGLOBIN AND [id number] 08:25:00 Test Item Value Reference Range Interpretation Comments HEMOGLOBIN ([facility]) (test code = 6.5 GM/DL 13.0-16.8 L 410) HEMATOCRIT ([facility]) (test code = 19.0 % 40.0-50.0 L 411) POCT-GLUCOSE [id number] 21:42:00 Test Item Value Reference Range Interpretation Comments POC-GLUCOSE METER 121 mg/dL 70-110 H TESTED AT [address] ([facility]) (test code [facility] [place] = 1538) [id number] POCT-GLUCOSE [id number] 16:40:00 Test Item Value Reference Range Interpretation Comments POC-GLUCOSE METER 134 mg/dL 70-110 H TESTED AT [address] ([facility]) (test code [facility] [place] = 1538) [id number] POCT-GLUCOSE [id number] 12:00:00 Test Item Value Reference Range Interpretation Comments POC-GLUCOSE METER 84 mg/dL 70-110 TESTED AT [address] ([facility]) (test code = [address] [facility] [place] 1538) [id number] SURGICALLY OBTAINED CULTURE + GRAM [id number] 08:12:00 Test Item Value Reference Interpretation Comments Range CULTURE ([facility]) METHICILLIN A 2+ Methicil antelmo (test code [...] (BEAKER) (test code = cocci in clusters 625900) CBC W/PLT COUNT & AUTO [id number] 06:19:00 Test Item Value Reference Range Interpretation [...] L 0.00-0.20 (test code = 417) POCT-GLUCOSE [id number] 06:01:00 Test Item Value Reference Range Interpretation Comments POC-GLUCOSE METER 122 mg/dL 70-110 H TESTED AT [address] ([facility]) (test code [facility] [place] = 1538) [address] POCT-GLUCOSE [id number] 21:23:00 Test Item Value Reference Range Interpretation Comments POC-GLUCOSE METER 178 mg/dL 70-110 H TESTED AT [address] ([facility]) (test code [facility] [place] = 1538) [id number] POCT-GLUCOSE [id number] 16:29:00 Test Item Value Reference Range Interpretation Comments POC-GLUCOSE METER 165 mg/dL 70-110 H TESTED AT [address] ([facility]) (test code [facility] [place] = 1538) [address] POCT-GLUCOSE [id number] 11:59:00 Test Item Value Reference Range Interpretation Comments POC-GLUCOSE METER 131 mg/dL 70-110 H TESTED AT [address] ([facility]) (test code [facility] [place] = 1538) [address] POCT-GLUCOSE [id number] 05:22:00 Test Item Value Reference Range Interpretation Comments POC-GLUCOSE METER 104 mg/dL 70-110 TESTED AT [address] ([facility]) (test code [facility] [place] = 1538) [address] POCT-GLUCOSE [id number] 22:48:00 Test Item Value Reference Range Interpretation Comments POC-GLUCOSE METER 122 mg/dL 70-110 H TESTED AT [address] ([facility]) (test code [facility] [place] = 1538) [address] HEPATITIS B SURFACE [id number] 20:44:00 Test Item Value Reference Range Interpretation Comments HEPATITIS B SURFACE ANTIBODY 10.2 mIU/mL <8.0 H (BEAKER) (test code = 647) POCT-GLUCOSE [id number] 18:00:00 Test Item Value Reference Range Interpretation Comments POC-GLUCOSE METER 127 mg/dL 70-110 H TESTED AT [address] ([facility]) (test code [facility] [place] = 1538) [address] BASIC METABOLIC [id number] 11:02:00 Test Item Value Reference Range Interpretation [...] PATIEN TS. CBC W/PLT COUNT & AUTO [id number] 10:36:00 Test Item Value Reference Range Interpretation [...] = 1+ few 966) HEPATITIS B SURFACE [id number] 07:50:00 Test Item Value Reference Range Interpretation Comments HEPATITIS B SURFACE ANTIGEN (2) Nonreactive Nonreactive (BEAKER) (test code = 2585) BASIC METABOLIC [id number] 07:45:00 Test Item Value Reference Range Interpretation [...] NOT APPLICABLE FOR DIALYSIS PATIEN TS. POCT-GLUCOSE [id number] 06:32:00 Test Item Value Reference Range Interpretation Comments POC-GLUCOSE METER 82 mg/dL 70-110 TESTED AT [address] ([facility]) (test code = [address] [facility] [place] 1538) [id number] POCT-GLUCOSE [id number] 17:47:00 Test Item Value Reference Range Interpretation Comments POC-GLUCOSE METER 106 mg/dL 70-110 TESTED AT [address] ([facility]) (test code [address] [facility] [place] = 1538) [address] CBC W/PLT COUNT & AUTO [id number] 16:41:00 Test Item Value Reference Range Interpretation [...] code = 2+ moderate 963) BASIC METABOLIC [id number] 16:21:00 Test Item Value Reference Range Interpretation [...] NOT APPLICABLE FOR DIALYSIS PATIEN TS. PROTHROMBIN TIME/[id number] 16:17:00 Test Item Value Reference Range Interpretation [...]
[2020-09-20 20:30] LABS: Absolute Lymphocytes (CBC) 1.3 K/uL (0.7-4.9); Basophils % 0.7 % (0-1.3); Hematocrit 39.6 % (39.6-49.0); MPV 8.5 fL (7.6-11.3); RBC Red Blood Cell Count 4.24 M/uL (4.33-5.43)
[2020-09-20 20:31] LABS: Protime INR 1.22
[2020-09-20 20:58] LABS: ALT/SGPT 24 U/L (12-78); AST/SGOT 18 U/L (15-37); Albumin 3.9 g/dL (3.4-5.0); Alkaline Phosphatase 365 U/L (45-117); BUN Blood Urea Nitrogen 57 mg/dL (7-18); Bicarbonate 24 mmol/L (21-32); Bilirubin Direct < 0.1 mg/dL (0-0.2); Bilirubin Total 0.3 mg/dL (0.2-1.0); Glucose Level 213 mg/dL (74-106); Magnesium 2.8 mg/dL (1.8-2.4); NT PRO-BNP 1007 pg/mL (<125); Potassium 4.1 mmol/L (3.5-5.1); Protein, Total 9.2 g/dL (6.4-8.2); Sodium Level 132 mmol/L (136-145); Troponin (Emerg Dept Use Only) < 0.02 ng/mL (0.0-0.045)
--- NOTE | 2020-09-20 21:03 | RAD REPORT ---
EXAM DESCRIPTION: Rebat Single View09/20/2020 8:47 pm CLINICAL HISTORY: Cough COMPARISON: 2014 FINDINGS: The lungs appear clear of acute infiltrate. The heart is borderline enlarged. Mild mediastinal lymphadenopathy without significant change
[2020-09-20] MEDS ORDERED: SOD POLYSTYREN SUL 15 GM/60 ML UCUP ONE (21:14)
--- NOTE | 2020-09-20 21:23 | ER ---
Nurse's Notes [facility] Name: Rodrigue Arreola Jr Age: 29 yrs Sex: Male : 1990 Arrival Date: 09/20/2020 Time: 19:21 Bed 13 Private MD: Diagnosis: End stage renal disease-on HD;Hyperkalemia-NOT VERIFIED/FOUND Presentation: 09/20 19:28 Chief complaint: Patient states: Sent by dialysis for high potassium, level was 8 last ll1 week. Denies pain. No N/V/D. Coronavirus screen: Client denies travel out of the [place] in the last 14 days. At this time, the client does not indicate any symptoms associated with coronavirus-19. Ebola Screen: Patient denies travel to an Ebola-affected area in the 21 days before illness onset. Initial Sepsis Screen: Does the patient meet any 2 criteria? HR > 90 bpm. No. Patient's initial sepsis screen is negative. Does the patient have a suspected source of infection? No. Patient's initial sepsis screen is negative. Risk Assessment: Do you want to hurt yourself or someone else? Patient reports no desire to harm self or others. Onset of symptoms is unknown. 19:28 Method Of Arrival: Wheelchair ll1 19:28 Acuity: DAVID 2 ll1 Historical: - Allergies: 19:29 No Known Allergies; ll1 - Home Meds: 21:40 amlodipine oral [Active]; Clonazepam Oral [Active]; Keppra Oral [Active]; Lipitor Oral lp1 [Active]; losartan Oral [Active]; Metoprolol Tartrate Oral [Active]; Novolog Sub-Q [Active]; - PMHx: 19:29 CHF; CVA; Diabetes - IDDM; Dialysis; Saturday, , Saturday; ESRD; Hypertension; ll1 Hypothyroidism; - PSHx: 19:29 dialysis cath; ll1 - Immunization history:: Flu vaccine is up to date. - Social history:: Smoking status: Patient denies any tobacco usage or history of. - Family history:: not pertinent. Screenin:28 Abuse screen: Denies threats or abuse. Denies injuries from another. Nutritional lp1 screening: No deficits noted. Tuberculosis screening: No symptoms or risk factors identified. Fall Risk None identified. Assessment: 21:00 General: Appears in no apparent distress. Behavior is calm, cooperative, appropriate lp1 for age. Pain: Denies pain. Neuro: Level of Consciousness is awake, alert, obeys commands. Cardiovascular: Patient's skin is warm and dry. Dialysis shunt: in the left femoral area. Respiratory: Respiratory effort is even, unlabored. GI: Abdomen is non-distended. : No signs and/or symptoms were reported regarding the genitourinary system. EENT: No signs and/or symptoms were reported regarding the EENT system. Derm: Skin is intact, Skin is dry, Skin is normal. Musculoskeletal: No deficits noted. 21:15 Reassessment: Dr. Dumas notified of K of 4.1, verbal order to cancel Kayexalate lp1 order. Vital Signs: 19:28 BP 93 / 75; Pulse 116; Resp 20; Temp 98.4; Pulse Ox 97% ; Weight 157.85 kg; Height 6 ll1 ft. 4 in. (193.04 cm); Pain 0/10; 21:38 BP 96 / 57; Pulse 115; Resp 18; Pulse Ox 98% on R/A; Pain 0/10; lp1 19:28 Body Mass Index 42.36 (157.85 kg, 193.04 cm) ll1 ED Course: 19:21 Patient arrived in ED. cl3 19:29 Triage completed. ll1 19:30 Arm band placed on. ll1 19:35 Shaheen Dumas MD is Attending Physician. ana 19:35 Inserted saline lock: in left EJ, using aseptic technique. By Dr. Dumas. lp1 20:00 Patient has correct armband on for positive identification. lp1 20:05 Kris Newell, RN is Primary Nurse. jb4 20:47 XRAY Chest (1 view) In Process Unspecified. EDMS 21:21 Homa Nolasco MD is Referral Physician. ana 21:39 No provider procedures requiring assistance completed. IV discontinued, No lp1 redness/swelling at site. Pressure dressing applied. Administered Medications: 21:17 Not Given (K 4.1; Provider notified ): Kayexalate 45 grams PO once lp1 Outcome: 21:22 Discharge ordered by . ana 21:40 Discharged to home ambulatory, with family. lp1 21:40 Condition: good 21:40 Discharge instructions given to patient, Instructed on discharge instructions, follow up and referral plans. Demonstrated understanding of instructions, follow-up care, Patient given labs results to take for next dialysis 21:40 Patient left the ED. lp1 Signatures: Dispatcher [employer] EDShaheen Montesinos MD MD cha Pena, Laura, RN RN lp1 Kris Newell RN RN torres4 Theresa Saucedo cl3 Krish Saucedo RN RN ll1 Corrections: (The following items were deleted from the chart) 19:30 19:28 Acuity: DAVID 3 ll1 ll1
--- NOTE | 2020-09-20 21:23 | EDPHYS ---
Physician Documentation [facility] Name: Rodrigue Arreola Jr Age: 29 yrs Sex: Male : 1990 Arrival Date: 09/20/2020 Time: 19:21 Bed 13 Private MD: ED Physician Shaheen Dumas HPI: 09/20 20:17 This 29 yrs old Black Male presents to ER via Wheelchair with complaints of High ana Pottasium. 20:17 sent for high potassium, had dialysis today. Onset: The symptoms/episode began/occurred ana today. Severity of symptoms: At their worst the symptoms were very mild in the emergency department the symptoms are unchanged. The patient has experienced similar episodes in the past, multiple times. Historical: - Allergies: 19:29 No Known Allergies; ll1 - Home Meds: 21:40 amlodipine oral [Active]; Clonazepam Oral [Active]; Keppra Oral [Active]; Lipitor Oral lp1 [Active]; losartan Oral [Active]; Metoprolol Tartrate Oral [Active]; Novolog Sub-Q [Active]; - PMHx: 19:29 CHF; CVA; Diabetes - IDDM; Dialysis; Saturday, , Saturday; ESRD; Hypertension; ll1 Hypothyroidism; - PSHx: 19:29 dialysis cath; ll1 - Immunization history:: Flu vaccine is up to date. - Social history:: Smoking status: Patient denies any tobacco usage or history of. - Family history:: not pertinent. ROS: 20:17 Constitutional: Negative for fever, chills, and weight loss, Eyes: Negative for injury, ana pain, redness, and discharge, ENT: Negative for injury, pain, and discharge, Neck: Negative for injury, pain, and swelling, Cardiovascular: Negative for chest pain, palpitations, and edema, Respiratory: Negative for shortness of breath, cough, wheezing, and pleuritic chest pain, Abdomen/GI: Negative for abdominal pain, nausea, vomiting, diarrhea, and constipation, Back: Negative for injury and pain, : Negative for injury, bleeding, discharge, and swelling, MS/Extremity: Negative for injury and deformity, Skin: Negative for injury, rash, and discoloration, Neuro: Negative for headache, weakness, numbness, tingling, and seizure, Psych: Negative for depression, anxiety, suicide ideation, homicidal ideation, and hallucinations, Allergy/Immunology: Negative for hives, rash, and allergies, Endocrine: Negative for neck swelling, polydipsia, polyuria, polyphagia, and marked weight changes, Hematologic/Lymphatic: Negative for swollen nodes, abnormal bleeding, and unusual bruising. Exam: 20:17 Constitutional: This is a well developed, well nourished patient who is awake, alert, ana and in no acute distress. Head/Face: Normocephalic, atraumatic. Eyes: Pupils equal round and reactive to light, extra-ocular motions intact. Lids and lashes normal. Conjunctiva and sclera are non-icteric and not injected. Cornea within normal limits. Periorbital areas with no swelling, redness, or edema. ENT: Nares patent. No nasal discharge, no septal abnormalities noted. Tympanic membranes are normal and external auditory canals are clear. Oropharynx with no redness, swelling, or masses, exudates, or evidence of obstruction, uvula midline. Mucous membranes moist. Neck: Trachea midline, no thyromegaly or masses palpated, and no cervical lymphadenopathy. Supple, full range of motion without nuchal rigidity, or vertebral point tenderness. No Meningismus. Chest/axilla: Normal chest wall appearance and motion. Nontender with no deformity. No lesions are appreciated. Cardiovascular: Regular rate and rhythm with a normal S1 and S2. No gallops, murmurs, or rubs. Normal PMI, no JVD. No pulse deficits. Respiratory: Lungs have equal breath sounds bilaterally, clear to auscultation and percussion. No rales, rhonchi or wheezes noted. No increased work of breathing, no retractions or nasal flaring. Abdomen/GI: Soft, non-tender, with normal bowel sounds. No distension or tympany. No guarding or rebound. No evidence of tenderness throughout. Back: No spinal tenderness. No costovertebral tenderness. Full range of motion. Skin: Warm, dry with normal turgor. Normal color with no rashes, no lesions, and no evidence of cellulitis. MS/ Extremity: Pulses equal, no cyanosis. Neurovascular intact. Full, normal range of motion., left yordy, groin Neuro: Awake and alert, GCS 15, oriented to person, place, time, and situation. Cranial nerves II-XII grossly intact. Motor strength 5/5 in all extremities. Sensory grossly intact. Cerebellar exam normal. Normal gait. Psych: Awake, alert, with orientation to person, place and time. Behavior, mood, and affect are within normal limits. 20:30 ECG was reviewed by the Attending Physician. [facility] Vital Signs: 19:28 BP 93 / 75; Pulse 116; Resp 20; Temp 98.4; Pulse Ox 97% ; Weight 157.85 kg; Height 6 ll1 ft. 4 in. (193.04 cm); Pain 0/10; 21:38 BP 96 / 57; Pulse 115; Resp 18; Pulse Ox 98% on R/A; Pain 0/10; lp1 19:28 Body Mass Index 42.36 (157.85 kg, 193.04 cm) ll1 Procedures: 20:50 Peripheral line: by aseptic technique a peripheral line was placed in the left external [facility] jugular vein. MDM: 19:35 Patient medically screened. [facility] 20:19 Data reviewed: vital signs, nurses notes, lab test result(s), EKG, radiologic studies, [facility] plain films. Data interpreted: secured entrance monitor: rate is 116 beats/min, rhythm is regular, Pulse oximetry: on room air is 97 %. Test interpretation: by ED physician or midlevel provider: ECG, plain radiologic studies. Counseling: I had a detailed discussion with the patient and/or guardian regarding: the historical points, exam findings, and any diagnostic results supporting the discharge/admit diagnosis, lab results, radiology results. 09/20 19:36 Order name: Basic Metabolic Panel; Complete Time: 21:08 [facility] 09/20 19:36 Order name: CBC with Diff; Complete Time: 21:08 [facility] 09/20 19:36 Order name: LFT's; Complete Time: 21:08 [facility] 09/20 19:36 Order name: Magnesium; Complete Time: 21:08 [facility] 09/20 19:36 Order name: NT PRO-BNP; Complete Time: 21:08 [facility] 09/20 19:36 Order name: PT-INR; Complete Time: 21:08 [facility] 09/20 19:36 Order name: Troponin (emerg Dept Use Only); Complete Time: 21:08 [facility] 09/20 19:36 Order name: XRAY Chest (1 view); Complete Time: 21:08 [facility] 09/20 19:36 Order name: EKG; Complete Time: 19:37 [facility] 09/20 19:36 Order name: Cardiac monitoring; Complete Time: 20:40 [facility] 09/20 19:36 Order name: EKG - Nurse/Tech; Complete Time: 20:40 [facility] 09/20 19:36 Order name: IV Saline Lock; Complete Time: 20:35 [facility] 09/20 19:36 Order name: Labs collected and sent; Complete Time: 20:35 [facility] 09/20 19:36 Order name: O2 Per Protocol; Complete Time: 20:35 [facility] 09/20 19:36 Order name: O2 Sat Monitoring; Complete Time: 20:35 [facility] EC:30 Rate is 114 beats/min. Rhythm is regular. QRS [place] is Normal. MO interval is normal. [facility] QRS interval is normal. QT interval is normal. No Q waves. T waves are Normal. No ST changes noted. Clinical impression: Sinus tachycardia and No evidence of ischemia. Interpreted by me. Reviewed by me. Administered Medications: 21:17 Not Given (K 4.1; Provider notified ): Kayexalate 45 grams PO once lp1 Disposition: 09/20/20 21:22 Discharged to Home. Impression: End stage renal disease - on HD, Hyperkalemia - NOT VERIFIED/FOUND. - Condition is Stable. - Discharge Instructions: Hyperkalemia, Hyperkalemia, [id number], End-Stage Kidney Disease, Dialysis Diet, [id number], Hemodialysis. - Medication Reconciliation Form, Thank You Letter, Antibiotic Education, Prescription Opioid Use form. - Follow up: Private Physician; When: 2 - 3 days; Reason: Recheck today's complaints, Continuance of care, Re-evaluation by your physician. Follow up: Homa Nolasco MD; When: 1 - 2 days; Reason: Recheck today's complaints, Continuance of care, Re-evaluation by your physician. - Problem is new. - Symptoms have improved. Signatures: Dispatcher [employer] Shaheen Azul MD MD cha Pena, Laura, RN RN lp1 Dionicio Fu, MILK POWDER GRINDER-C MILK POWDER GRINDER-Cla1 Krish Saucedo RN RN ll1 Corrections: (The following items were deleted from the chart) 21:24 21:22 09/20/2020 21:22 Discharged to Home. Impression: End stage renal disease - on HD. ana Condition is Stable. Forms are Medication Reconciliation Form, Thank You Letter, Antibiotic Education, Prescription Opioid Use. Follow up: Private Physician; When: 2 - 3 days; Reason: Recheck today's complaints, Continuance of care, Re-evaluation by your physician. Follow up: Homa Nolasco; When: 1 - 2 days; Reason: Recheck today's complaints, Continuance of care, Re-evaluation by your physician. Problem is new. Symptoms have improved. ana 21:40 21:24 09/20/2020 21:22 Discharged to Home. Impression: End stage renal disease - on HD; lp1 Hyperkalemia - NOT VERIFIED/FOUND. Condition is Stable. Discharge Instructions: Hyperkalemia, Hyperkalemia, [id number], End-Stage Kidney Disease, Dialysis Diet, [id number], Hemodialysis. Forms are Medication Reconciliation Form, Thank You Letter, Antibiotic Education, Prescription Opioid Use. Follow up: Private Physician; When: 2 - 3 days; Reason: Recheck today's complaints, Continuance of care, Re-evaluation by your physician. Follow up: Homa Nolasco; When: 1 - 2 days; Reason: Recheck today's complaints, Continuance of care, Re-evaluation by your physician. Problem is new. Symptoms have improved. ana
[2020-09-20 21:45] VITALS: TEMP 98.4
[2020-09-20 21:46] VITALS: BP 96/57; O2SAT 98
--- NOTE | 2020-09-23 16:17 | EKG ---
Test Date: 2020-09-20 Test Time: 19:58:03 Surgeon'S Assistant: LA MEASUREMENT RESULTS: Intervals: Rate: 114 MI: 176 QRSD: 94 QT: 320 QTc: 441 [place]: P: 64 MI: 176 QRS: 95 T: 55 INTERPRETIVE STATEMENTS: Sinus tachycardia Possible Left atrial enlargement Rightward axis Cannot rule out Anterior infarct, age undetermined Abnormal ECG Compared to ECG 04/24/2018 17:52:26 Myocardial infarct finding now present T-wave abnormality no longer present Electronically Signed On 09-23-20 16:10:13 SPICE ROOM WORKER by Fredy Rouse
== END 2020-09-20 21:40 | disposition home or self-care (01) ==
LOC: ER 19:18
DX: Z71.1 Person with feared health complaint in whom no diagnosis is made (principal); E11.22 Type 2 diabetes mellitus with diabetic chronic kidney disease; I13.2 Hypertensive heart and chronic kidney disease with heart failure and with stage 5 chronic kidney disease, or end stage renal disease; I50.9 Heart failure, unspecified; N18.6 End stage renal disease; E03.9 Hypothyroidism, unspecified; Z99.2 Dependence on renal dialysis; Z79.4 Long term (current) use of insulin
CPT/HCPCS: 36415; 71045; 80048; 80076; 83735; 83880; 84484; 85025; 85610; 93005; 99283

== ENCOUNTER 2021-05-20 12:59 | Inpatient (IN) | payer OTHER ==
--- OUTSIDE RECORDS SUMMARY | 2021-05-20 13:07 | XMS REPORT | Continuity of Care Document ---
:1990 Author Organization [facility] t Address [address] [place] [address] Care Team Providers Name Role Phone Sharpless Primary Care Physician Dorene Manuel NP Attending Clinician Lewis WRIGHT Attending Clinician Unavailable Krzysztof WRIGHT Attending Clinician Unavailable Jeremias Jalloh MD Attending Clinician Nikita Saldaña MA Attending Clinician Unavailable Leandro HU Attending Clinician Unavailable Oliver Dickens MD Attending Clinician Kyree MESSER Attending Clinician Cem RN Attending Clinician Unavailable Amauri HU Attending Clinician Unavailable Gael MESSER Attending Clinician Leonor Felton MD Attending Clinician Flavia Bales MD Attending Clinician Aguila MESSER RIsauro Attending Clinician Yogesh MESSER V. Attending Clinician Mary Carmen BARAHONA Attending Clinician Andres MESSER, T. Attending Clinician MD FLAVIA BALES Attending Clinician Unavailable MD Azul CAMPOS Attending Clinician Unavailable Joni WRIGHT Attending Clinician Unavailable Aramis Og MD Attending Clinician Michelle Sesay MD Attending Clinician Lambert Coppola MD Attending Clinician Niesha HU Attending Clinician Unavailable Jaxon Clinton CRNA Attending Clinician Wai R Attending Clinician MD LEONOR FELTON Attending Clinician Unavailable Juana CULVER Attending Clinician Eloise Campos MD Attending Clinician Bravo Ovalles MD Attending Clinician ELOISE CAMPOS Attending Clinician Unavailable Damian Rosenbaum MD Attending Clinician LEONOR FELTON Attending Clinician Unavailable KATE Attending Clinician Unavailable MD KATE Attending Clinician Unavailable JONATHAN Attending Clinician Unavailable YEIMI Admitting Clinician Unavailable JOSE FRANCISCO Admitting Clinician Unavailable MD LEONOR FELTON Admitting Clinician Unavailable MD Azul CAMPOS Admitting Clinician Unavailable ANDRES Admitting Clinician Unavailable MD Michelle SESAY Admitting Clinician Unavailable ELOISE CAMPOS Admitting Clinician Unavailable LEONOR FELTON Admitting Clinician Unavailable KATE Admitting Clinician Unavailable MD KATE Admitting Clinician Unavailable PALOMO COVINGTON Admitting Clinician Unavailable JONATHAN Admitting Clinician Unavailable Payers Payer Name Policy Type Policy Effective Date Expiration Date Sour ce Number MEDICAREMEDICARE PART [id number] [facility] [id number] [place] [id number] 2015 ROHIT [place] [id number]- 00:00:00 - [facility] Problems Condition Condition Condition Status Onset Resolution Last Treating Co mments Source Name Details Category Date Date Treatment Clinician Date PAD PAD Disease Active Methodi (periphera (periphera 6 st l artery l artery 00:00: Hospit a disease) L disease) L 00 l S[facility]IOR PARTNER SENIOR PARTNER stenosis, stenosis, L arm high L arm high bifurcatio bifurcatio n forearm n forearm art dz art dz Morbid Morbid Disease Active [facility] obesity obesity 03-21 st 00:00: Hospita 00 l Tachycardi Tachycardi Disease Active M ethodi a a 02-13 st 00:00: Hospita 00 l Hypercoagu Hypercoagu Disease Active M ethodi lable lable 02-13 state state 00:00: Hospita 00 l CVA CVA Disease Active [facility] (cerebral (cerebral 02-13 vascular vascular 00:00: Hospit a accident) accident) 00 l ([facility]) 2017 ([facility]) 2017 L sided L sided weakness weakness HLD HLD Disease Active Methodi (hyperlipi (hyperlipi 02-13 demia) demia) 00:00: Hospita 00 l Hypotensio Hypotensio Disease Active M ethodi n n 02-13 st 00:00: Hospita 00 l Diabetes Diabetes Disease Active Metho di 02-10 st 00:00: Hospita 00 l Bleeding Bleeding Disease Active Metho di 08 st 00:00: Hospita 00 l Hemodialys Hemodialys Disease Active [facility] is is 8[facility]12 [facility] - catheter catheter 00:00: Medica l dysfunctio dysfunctio 00 Ce nter n n ESRD (end ESRD (end Disease Active Met [facility] stage stage 1-27 st renal renal 00:00: Hospita disease) disease) 00 l on on dialysis dialysis ([facility]) 2017 ([facility]) 2017 TTS TTS Abscess of Abscess of Disease Active [facility] leg leg 5-15 [facility] - without without 00:00: Medical foot, left foot, left 00 Ce nter Abscess of Abscess of Disease Active [facility] leg, left leg, left 5-14 [facility] - 00:00: Medical 00 Center Allergies, Adverse Reactions, Alerts This patient has no known allergies or adverse reactions. Family History Family Member Diagnosis Comments Start Date Stop Date Source Natural father Hypertension [facility] Natural father Kidney disease Method [facility] father Stroke [facility] Natural mother No Known Problems Met [facility] Paternal grandfather Diabetes Meth [facility] Social History Social Habit Start Date Stop Date Quantity Comments Source History SDOH [facility] St[facility] Drinks Hospit al History SDOH [facility] Exposure to Not sure [facility] SARS-CoV-2 (event) Hospit al History of tobacco Current smoker [facility] Cigarettes smoked 2021-05-01 2021-05-[address] current (pack per 00:00:00 00:00:00 Hospita l day) - Reported Cigarette 2021-05-01 2021-05-01 [facility] pack-years 00:00:00 00:00:00 Hospital Tobacco use and 2021-05-01 2021-05-01 Never used [facility] exposure 00:00:00 00:00:00 Hospital Alcohol intake 2021-05-01 2021-05-01 Ex-drinker [facility] 00:00:00 00:00:00 (finding) Hospital History SDOH 2020-11-23 2020-11-23 1 [facility] Alcohol Frequency 00:00:00 00:00:00 Hospita l Sex Ass[birth year] At [birth year] [facility] 00:00:[facility] 00:[facility]:00 Hospital Smoking Status Start Date Stop Date Source Former smoker 2021-05-01 00:00:00 2021-05-01 00:00:00 [facility] Never smoker [facility] Medications Ordered Filled Start Stop Current Ordering Indication Dosage Frequency Signature Comments Components Source Medication Medication Date Date Medication? Clinician (SIG) Name Name insulin Yes 30U QD Inject [facility]i ASPART 05-01 30-60 st (NovoLOG) 15:48: Units Hospita 100 unit/mL 43 under the l injection skin nightly. SLIDING SCALE metoprolol Yes 100mg Q.[id number] Take 100 [facility] tartrate 05-[id number] (LOPRESSOR) 15:48: 3D mouth 3 Hos paul 100 mg 43 (three) l tablet times a day. hydrALAZINE Yes 25mg Take 25 mg [facility] (APRESOLINE 05-[address] ) 25 MG 15:48: as needed. Hosp rachel tablet 43 l folic Yes QD Take by [facility] acid/vit B 05-[address] complex and 15:48: daily. Hosp rachel C 43 l (WESLY-SHELLEY ORAL) warfarin Yes 9mg QD Take 9 mg Meth marjan (COUMADIN) 05-[address] 5 MG tablet 15:48: daily. Hosp rachel 43 Take 1 l tablet (5mg) by mouth daily for 30 [place] [id number] 1{tbl} Q4H Take 1 [facility] en-codeine 03-[address] (TYLENOL 00:00: 04:59 mouth Hospita WITH 00 :00 every 4 l CODEINE #3) (four) 300-30 mg hours as per tablet needed for moderate pain for up to 10 days .acute pain. warfarin No 3mg QD Take 3 mg Met hodi (COUMADIN) 03-[address] 3 MG tablet 20:18: 00:00 daily. Hos paul 50 :00 Last dose l on Saturday rivaroxaban 2020- No 2.5mg Q.5D Take 2.5 Methodi (Xarelto) 5-05 05-[address] 2.5 mg 18:48: 00:00 mouth 2 Hospita tablet 33 :00 (two) l tablet times a day. rivaroxaban 2020- No 2.5mg Q.5D Take 2.5 [facility] (XARELTO) 3-01 03-[address] 10 mg 21:59: 00:00 mouth 2 Hospita tablet 12 :00 (two) [place] [id number] 1{tbl} Q6H Take 1 Methodi -acetaminop 2-10 02-[address] hen (NORCO) 00:00: 05:59 mouth Hosp rachel 5-325 mg 00 :00 every 6 l per tablet (six) hours as needed for moderate pain for up to 30 doses .acute pain. Max Daily Amount: 4 tablets multivitami 2020- No 1{tbl} QD Take 1 M ethodi n 1-25 -[address] (THERAGRAN) 19:24: 00:00 mouth Hosp rachel tablet 03 :00 daily. l apixaban No 5mg Q.5D Take 5 mg Met hodi (Eliquis) 5 10-17 by mouth 2 s t mg tablet 19:22: 00:00 (two) Hospit a 08 :00 times a l day. HYDROCODONE No Take by Ca thodi -ACETAMINOP 1-05 10- mouth. st HEN ORAL 13:16: 00:00 Hospita 06 :00 [place] [id number] 1{tbl} Q6H Take 1 Methodi -acetaminop -10-[address] hen (NORCO) 00:00: 05:59 mouth Hosp rachel 5-325 mg 00 :00 every 6 l per tablet (six) hours as needed for moderate pain for up to 30 doses .acute pain. Max Daily Amount: 4 tablets HYDROcodone 2019-09 [place] [id number] 1{tbl} Q6H Take 1 Methodi -acetaminop 0-14 07-[address] hen (NORLA) 00:00: 00:00 mouth Hosp rachel 5-325 mg 00 :00 every 6 l per tablet (six) hours as needed for [...] - tablet 14:56: mouth Medical 52 daily. [place] sevelamer 2019-09 Yes 800mg Q.[id number] Take [address] [facility] [address] (RENVELA) 0-07 [id number] mg by Sulaiman es - 800 mg 14:56: 3D mouth 3 Medical tablet 52 (three) Center times daily . insulin 2019-09 Yes 30U QD Inject [facility] aspart 0-07 30-60 [facility] - U-100 14:56: Units Medical (NOVOLOG) 52 subcutaneo Cent er 100 unit/mL usly injection nightly. midodrine 2019-09 Yes 10mg Q.[id number] Take [address] [facility] [address] (PROAMATINE 0-07 [id number] by mouth 3 [facility] - ) 10 MG 14:56: 3D (three) Medical tablet 52 times Center daily. thiamine 2019-09- No 50mg QD Take [address] (VITAMIN 0- 10 by mouth [facility] - B-1) 50 MG 11:52: 00:00 daily. Medi nergita tablet 25 :00 Center senna-docus 2019-09- No 2{tbl} QD Take [address] ate 0- 10- tablets by [facility] - (SENOKOT S) 11:51: 00:00 mouth Medi negrita 8.6-50 mg 47 :00 nightly. Center per tablet ondansetron 2019-09- No 4mg Take [address] (ZOFRAN) 4 0- 10 by mouth Luke s - MG tablet 11:51: 00:00 as needed Me dical 38 :00 for Center Nausea. INSULIN 2019-09- No Inject [facility] ASPART 0-01 10- subcutaneo [facility]ukes - PROT/INSULN 11:50: 00:00 usly. Medi negrita ASP 45 :00 Center (INSULIN ASP PRT-INSULIN ASPART SUBQ) famotidine 2019-09- No 20mg Q.5D Take [address] (PEPCID) 20 0- 10- by mouth 2 L ukes - [...] (four) tablet hours as needed for Pain. apixaban 2019- No [id number] 5mg Q.5D Take 1 Metho di (ELIQUIS) 5 7-07 02- tablet (5 st mg tablet 00:00: 04:59 mg total) Ho spita 00 :00 by mouth 2 l (two) times a day for 90 days .blood clot in a deep vein of the extremitie s. apixaban 2019- No 5mg Q.5D Take [address] (ELIQUIS) 5 7-06-30 by mouth 2 L ukes - mg Tab 00:00: 23:59 (two) Medical tablet 00 :00 times Center daily. VELPHORO 2018-09 Yes 1500mg Q.[id number] Chew 1,500 Methodi 500 mg 1-[id number] tablet,chew 00:00: 3D (three) Hos paul able 00 times a l day with meals. midodrine 2018-09 Yes 10mg Q.[id number] Take 10 mg [facility] (PROAMATINE 1-11 [id number] mouth 3 st ) 10 MG 00:00: 3D (three) Hospita tablet 00 times a l day. On days of dialysis atorvastati 2018-09 Yes 40mg QD Take 40 mg Methodi n (LIPITOR) 0-[address] 40 MG 00:00: nightly. Hospita tablet 00 l mirtazapine 2018-09 Yes 30mg QD Take 30 mg [facility]i (REMERON) 0-[address] 30 MG 00:00: nightly. Hospita tablet 00 l sevelamer 2018-09 Yes 4{tbl} Q.[id number] Take 4 [facility] (RENVELA) 0-[id number] 800 mg 00:00: 3D mouth 3 Hospita tablet 00 (three) l times a day with meals. TAKE 2 TABS WITH EACH SNACK HYDROcodone 2019- No 1{tbl} Take [address] -acetaminop 1-21 10-01 tablet by Shanon castro (NORCO 00:00: 00:00 mouth Medic al 5-325) 00 :00 every 4 Center 5-325 mg (four) per tablet hours as needed. SPS, WITH 2019- No 60mg QD Take [address] SORBITOL, 10-09 by mouth [facility] - 15-20 00:00: 00:00 daily. Medical gram/60 mL 00 :00 Center Susp mirtazapine Yes 1{tbl} QD Take [address] (REMERON 1-09 tablet by [facility] - MARCO A-TAB) 30 00:00: mouth Medic al MG 00 nightly. Center disintegrat ing tablet losartan 2019- No 50mg QD Take [address] (COZAAR) 50 09-30 by mouth Sulaiman es - MG tablet 00:00: 00:00 daily. Medic al 00 :00 Center VELPHORO Yes 1{tbl} Q.[id number] Take [address] 500 mg Chew 09-23 [id number] tablet by [facility] - 00:00: 3D mouth 3 Medical 00 (three) Center times daily WITH MEALS. LANTUS 2017-09- No 10U QD Inject 10 [facility] SOLOSTAR 11-11 Units [facility] - U-100 00:00: 00:00 subcutaneo Medic al INSULIN 100 00 :00 usly Center unit/mL (3 daily. mL) InPn metoprolol 2017-09 Yes 100mg Q.[id number] Take [address] (TOPROL-XL) 2-14 [id number] mg by L ukes - 100 MG [...] mg [facility] (NORVASC) 5 2-06 10-01 by mouth 2 L ukes - MG tablet 00:00: 00:00 (two) Medica l 00 :00 times Center daily. Vital Signs Vital Name Observation Time Observation Value Comments Source Systolic blood 2021-05-01 15:48:00 146 mm[Hg] [facility] pressure Diastolic blood 2021-05-01 15:48:00 82 mm[Hg] [facility] pressure Heart rate 2021-05-01 15:48:00 94 /min [facility] Body temperature 2021-05-01 15:48:00 36.44 Esther [facility] Body height 2021-05-01 15:48:00 193 cm [facility] Body weight 2021-05-01 15:48:00 162.388 kg [facility] BMI 2021-05-01 15:48:00 43.58 kg/m2 [facility] Oxygen saturation in 2021-05-01 15:48:00 99 /min [facility] Arterial blood by Pulse oximetry Respiratory rate 2021-03-30 00:05:00 18 /min [facility] Systolic blood 2020-06-29 12:20:00 194 mm[Hg] [facility] Diastolic blood 2020-06-29 12:20:00 127 mm[Hg] [facility] Heart rate 2020-06-29 12:20:00 94 /min [facility] Respiratory rate 2020-06-29 12:20:00 25 /min [facility] Oxygen saturation in 2020-06-29 12:20:00 99 /min [facility] Arterial blood by Medical Ce nter Pulse oximetry Body temperature 2020-06-29 10:26:00 37.06 Esther [facility] Body height 2020-06-23 11:55:00 193 cm [facility] Body weight 2020-06-23 11:55:00 151 kg [facility] BMI 2020-06-23 11:55:00 40.52 kg/m2 [facility] Procedures Procedure Date / Time Performing Clinician Source Performed HC COMPLETE BLD COUNT 2021-03-30 20:08:00 Steven Manuel [facility] W/AUTO DIFF Dorene BASIC METABOLIC PANEL 2021-03-30 20:08:00 [facility] Dorene PROTHROMBIN TIME WITH INR 2021-03-30 20:08:00 [facility] Dorene ESTIMATED GFR 2021-03-30 20:08:00 [facility] Dorene PARTIAL THROMBOPLASTIN 2021-03-30 20:08:00 [facility] TIME (PTT) Dorene SMEAR REVIEW 2021-03-30 20:08:00 [facility] Dorene ECG 12-LEAD 2021-03-30 19:35:05 [facility] Dorene US DUPLEX HEMODIALYSIS 2021-03-30 18:48:10 [facility] AVG AVF ACCESS Dorene POC GLUCOSE 2021-03-29 23:32:[address] [facility] CREATION, AV FISTULA 2021-03-29 21:06:00 [facility] VW PORTABLE 2021-03-29 20:18:00 [facility] E. NH AN PERIPHERAL BLOCK 2021-03-29 19:50:14 [facility] PROCEDURE FOR PAIN E. PROTHROMBIN TIME WITH 2021-03-29 18:43:00 [facility] INR, I-STAT POC PANEL 2021-03-29 18:38:[address] [facility] US VEIN MAPPING LOWER 2021-03-17 20:14:42 [facility] EXTREMITY BILATERAL US ANKLE BRACHIAL INDEX 2021-03-17 19:11:31 [facility] US VEIN MAPPING UPPER 2021-03-17 19:11:16 [facility] EXTREMITY BILATERAL POC GLUCOSE 2021-03-15 22:09:[address] [facility] IR BILATERAL LOWER 2021-03-15 21:34[facility] EXTREMITY VENOGRAM IR BILATERAL LOWER 2021-03-15 21:34:00 [facility] EXTREMITY ARTERIOGRAM POC GLUCOSE 2021-03-15 17:08:[address] [facility] PARTIAL THROMBOPLASTIN 2021-03-15 14:54:00 Ori Munguia [facility] TIME (PTT) Arron PROTHROMBIN TIME WITH INR 2021-03-15 14:54:00 Ori Munguia [facility] BASIC METABOLIC PANEL 2021-03-15 14:54:00 [facility] COMPLETE BLD COUNT 2021-03-15 14:54:00 [facility] W/AUTO DIFF ESTIMATED GFR 2021-03-15 14:54:[address] [facility] SMEAR REVIEW 2021-03-15 14:54:[address] [facility] IR BILATERAL UPPER 2021-03-08 22:48:00 [facility] EXTREMITY VENOGRAM IR BILATERAL UPPER 2021-03-08 22:48:00 [facility] EXTREMITY ARTERIOGRAM POC GLUCOSE 2021-03-08 22:19:[address] [facility] PROTHROMBIN TIME WITH INR 2021-03-08 17:34:[address] [facility] POC GLUCOSE 2021-03-08 16:43:[address] [facility] PROTHROMBIN TIME WITH INR 2021-02-13 22:09:[address] [facility] PARTIAL THROMBOPLASTIN 2021-02-13 22:09:00 [facility] TIME (PTT) BASIC METABOLIC PANEL 2021-02-13 22:09:00 [facility] HC COMPLETE BLD COUNT 2021-02-13 22:09:00 [facility] W/AUTO DIFF ESTIMATED GFR 2021-02-13 22:09:[address] [facility] US DUPLEX HEMODIALYSIS 2021-02-13 20:18:31 [facility] AVG AVF ACCESS HEMOGLOBIN & HEMATOCRIT 2021-01-28 21:59:00 [facility] POTASSIUM LEVEL 2021-01-28 17:19:00 [facility] G[facility] HEPATITIS B SURFACE 2021-01-28 16:43:00 Genaro [facility] ANTIGEN Gargoll HEPATITIS B SURFACE AB, 2021-01-28 16:43:00 Genaro [facility] QUANTITATIVE Gargollo TROPONIN 2021-01-28 15:58:00 [facility] HEMODIALYSIS 2021-01-28 13:11:44 Genaro [facility] Ho spital Gargollo TROPONIN 2021-01-28 10:12:00 [facility] HC COMPLETE BLD COUNT 2021-01-28 10:12:00 [facility] W/AUTO DIFF COMPREHENSIVE METABOLIC 2021-01-28 10:12:00 [facility] PANEL ESTIMATED GFR 2021-01-28 10:12:00 [facility] TROPONIN 2021-01-28 07:30:00 [facility] HEMOGLOBIN & HEMATOCRIT 2021-01-28 05:36:00 [facility] XR CHEST 1 VW PORTABLE 2021-01-28 04:38:25 [facility] ECG 12-LEAD 2021-01-28 04:10:59 [facility] ECG ED PRELIMINARY 2021-01-28 03:35:12 [facility] INTERPRETATION HC COMPLETE BLD COUNT 2021-01-28 03:20:00 [facility] W/AUTO DIFF PROTHROMBIN TIME WITH INR 2021-01-28 03:20:00 [facility] PARTIAL THROMBOPLASTIN 2021-01-28 03:20:00 [facility] TIME (PTT) COMPREHENSIVE METABOLIC 2021-01-28 03:20:00 [facility] PANEL TYPE AND SCREEN 2021-01-28 03:20:00 [facility] ESTIMATED GFR 2021-01-28 03:20:00 [facility] SMEAR REVIEW 2021-01-28 03:20:00 [facility] POC GLUCOSE 2021-01-27 23:05:00 [facility] [place] < 1 HOUR 2021-01-27 22:36:[address] [facility] ANESTHESIA INTUBATION 2021-01-27 20:31:15 Kelly Zuñiga [facility] THROMBECTOMY 2021-01-27 20:02:[address] [facility] BASIC METABOLIC PANEL 2021-01-27 11:17:00 [facility] [place] MAGNESIUM LEVEL 2021-01-27 11:17:00 Aziza Lam spital Gargollgermán PHOSPHORUS LEVEL 2021-01-27 11:17:00 Aziza Lam ospital [place] PROTHROMBIN TIME WITH INR 2021-01-27 [facility]:17[facility] PARTIAL THROMBOPLASTIN 2021-01-27 11:17:00 [facility] TIME (PTT) Dorian J. HC COMPLETE BLD COUNT 2021-01-27 11:17:00 Mata Campos [facility] W/AUTO DIFF ESTIMATED GFR 2021-01-27 11:17:00 Mario [facility]ales [facility] [place] TYPE AND SCREEN 2021-01-27 11:17:00 Amairani [facility] [place] PREPARE RBC 2021-01-27 11:17:00 Uriel [facility]un[facility] [place] POC GLUCOSE 2021-01-26 20:50:00 Amairani [facility] [place] COVID-19 QUALITATIVE 2021-01-26 20:04:00 [facility] RT-PCR ECG ED PRELIMINARY 2021-01-26 18:15:37 [facility] INTERPRETATION HC COMPLETE BLD COUNT 2021-01-26 18:07:00 [facility] W/AUTO DIFF BASIC METABOLIC PANEL 2021-01-26 18:07:00 [facility] PROTHROMBIN TIME WITH INR 2021-01-26 18:07:00 [facility] PARTIAL THROMBOPLASTIN 2021-01-26 18:07:00 [facility] TIME (PTT) ESTIMATED GFR 2021-01-26 18:07:00 [facility] XR CHEST 1 VW PORTABLE 2021-01-26 18:05:46 [facility] ECG 12-LEAD 2021-01-26 17:56:04 [facility] ECG 12-LEAD 2021-01-25 19:02:37 Maye Sesay bebe Martinez HC COMPLETE BLD COUNT 2021-01-25 19:02:00 Manisha [facility] W/AUTO DIFF Dorian Martinez TYPE AND SCREEN 2021-01-25 19:02:00 Maye Sesay bebe Martinez PROTHROMBIN TIME WITH INR 2021-01-25 19:02:00 [facility] Dorian[facility] PARTIAL THROMBOPLASTIN 2021-01-25 19:02:00 [facility] ([facility]TT[facility] Dorian Martinez HEMOGLOBIN A1C 2021-01-25 19:02:00 Maye Sesay SMEAR REVIEW 2021-01-25 19:02:00 Maye Sesay bebe Martinez COVID-19 QUALITATIVE 2021-01-25 18:34:00 [facility] Dorian Martinez POC GLUCOSE 2020-11-24 00:24:00 [facility] POC GLUCOSE 2020-11-23 23:40:00 [facility] [place] < 1 HOUR 2020-11-23 23:33:53 [facility] NH AN ELECTIVE 2020-11-23 22:46:[address] [facility] SUPRAGLOTTIC AIRWAY REVISION, ARTERIOVENOUS 2020-11-23 22:22:00 [facility] GRAFT, WITH ANGIOGRAPHY ESTIMATED GFR 2020-11-23 19:16:00 [facility] POC PANEL 2020-11-23 19:16:00 [facility] BASIC METABOLIC PANEL 2020-11-23 19:10:00 [facility] PROTHROMBIN TIME WITH INR 2020-11-23 19:10:00 [facility] PARTIAL THROMBOPLASTIN 2020-11-23 19:10:00 [facility] TIME (PTT) ESTIMATED GFR 2020-11-23 19:10:00 [facility] COVID-19 QUALITATIVE 2020-11-21 22:14:00 [facility] Dorian Martinez HC COMPLETE BLD COUNT 2020-11-21 22:14:00 ManishaErika shields [facility] W/AUTO DIFF Dorian Martinez HEMOGLOBIN A1C 2020-11-21 22:14:00 Maey Sesay bebe Martinez TYPE AND SCREEN 2020-11-21 22:14:00 Maye Sesay bebe Mratinez POC GLUCOSE 2020-11-02 22:09:00 [facility] NH AN ELECTIVE 2020-11-02 20:26:[address] [facility] SUPRAGLOTTIC AIRWAY CREATION, AV FISTULA, 2020-11-02 19:58:00 Andres, [facility] USING GRAFT ESTIMATED GFR 2020-11-02 18:43:00 Andres, [facility] POC PANEL 2020-11-02 18:43:00 Andres, [facility] BASIC METABOLIC PANEL 2020-11-02 18:36:00 [facility] PROTHROMBIN TIME WITH INR 2020-11-02 18:36:00 [facility] PARTIAL THROMBOPLASTIN 2020-11-02 18:36:00 [facility] TIME (PTT) ESTIMATED GFR 2020-11-02 18:36:00 [facility] TYPE AND SCREEN 2020-11-01 20:20:00 [facility] HEMOGLOBIN A1C 2020-11-01 20:05:00 Maye Sesay bebe Martinez COVID-19 QUALITATIVE 2020-11-01 19:57:00 [facility] RT-PCR HC COMPLETE BLD COUNT 2020-11-01 19:57:00 [facility] W/AUTO DIFF POC GLUCOSE 2020-10-19 21:07:00 [facility] [place] < 1 HOUR 2020-10-19 20:33:00 [facility] NH AN ELECTIVE 2020-10-19 18:55:[address] [facility] SUPRAGLOTTIC AIRWAY REVISION, ARTERIOVENOUS 2020-10-19 18:17:00 AndresHendrick [facility] GRAFT, WITH ANGIOGRAPHY ESTIMATED GFR 2020-10-19 16:45:00 [facility] POC PANEL 2020-10-19 16:45:00 [facility] BASIC METABOLIC PANEL 2020-10-19 16:39:00 [facility] PROTHROMBIN TIME WITH INR 2020-10-19 16:39:00 [facility] PARTIAL THROMBOPLASTIN 2020-10-19 16:39:00 [facility] TIME (PTT) ESTIMATED GFR 2020-10-19 16:39:00 [facility] TYPE AND SCREEN 2020 20:12:00 [facility] COVID-19 QUALITATIVE 2020 19:45:00 [facility] RT-PCR HC COMPLETE BLD COUNT 2020 19:45:00 [facility] W/AUTO DIFF HEMOGLOBIN A1C 2020 19:45:00 [facility] US DUPLEX VENOUS LOWER 2020-10-05 18:42:49 [facility] EXTREMITY RIGHT US DUPLEX ARTERIAL LOWER 2020-10-05 18:42:34 [facility] EXTREMITY RIGHT POC GLUCOSE 2020-10-05 16:33:00 [facility] NH AN ELECTIVE 2020-10-05 14:50:09 [facility] REVISION, ARTERIOVENOUS 2020-10-05 14:19:00 [facility] GRAFT, WITH ANGIOGRAPHY ESTIMATED GFR 2020-10-05 13:26:00 [facility] POC PANEL 2020-10-05 13:26:00 [facility] COMPREHENSIVE METABOLIC 2020-10-05 13:21:00 [facility] PANEL PROTHROMBIN TIME WITH INR 2020-10-05 13:21:00 [facility] PARTIAL THROMBOPLASTIN 2020-10-05 13:21:00 [facility] TIME (PTT) ESTIMATED GFR 2020-10-05 13:21:00 [facility] ECG PRE/POST OP 2020-10-03 22:05:52 Maye Sesay bebe Martinez XR CHEST 2 VW 2020-10-03 21:29:13 [facility] HC COMPLETE BLD COUNT 2020-10-03 20:40:00 Manisha [facility] W/AUTO DIFF Dorian Martinez TYPE AND SCREEN 2020-10-03 20:40:00 Maye Sesay HEMOGLOBIN A1C 2020-10-03 20:40:00 [facility] bebe Martinez COVID-19 QUALITATIVE 2020-10-03 20:29:00 Andres [facility] RT-PCR ANESTHESIA PERIPHERAL 2020-08-02 11:51:24 Shiela Ovalles [facility] OR [place] < 1 HOUR 2020-07-14 21:15:00 [facility] POC GLUCOSE 2020-07-14 21:11:[address] [facility] INSERTION, TUNNELED 2020-07-14 20:33:00 [facility] CENTRAL VENOUS CATHETER WITH PORT, WITHOUT FLUOROSCOPIC GUIDANCE TYPE AND SCREEN 2020-07-14 19:01:00 Maye Sesay bebe Martinez ECG ED PRELIMINARY 2020-07-14 17:04:41 [facility] INTERPRETATION COVID-19 QUALITATIVE 2020-07-14 17:02:00 [facility] RT-PCR XR CHEST 1 VW PORTABLE 2020-07-14 16:18:07 [facility] ECG 12-LEAD 2020-07-14 15:53:59 [facility] HC COMPLETE BLD COUNT 2020-07-14 15:22:00 [facility] W/AUTO DIFF PROTHROMBIN TIME WITH INR 2020-07-14 15:22:00 [facility] PARTIAL THROMBOPLASTIN 2020-07-14 15:22:00 [facility] TIME (PTT) BASIC METABOLIC PANEL 2020-07-14 15:22:00 [facility] ESTIMATED GFR 2020-07-14 15:22:00 [facility] POC GLUCOSE 2020-07-06 21:10:00 [facility] NH AN ELECTIVE 2020-07-06 19:20:[address] [facility] SUPRAGLOTTIC AIRWAY [place] REVISION, ARTERIOVENOUS 2020-07-06 19:12:00 [facility] GRAFT, WITH ANGIOGRAPHY POC PANEL 2020-07-06 17:24:00 [facility] BASIC METABOLIC PANEL 2020-07-06 17:18:00 [facility] Dorian Martinez PROTHROMBIN TIME WITH INR 2020-07-06 17:18:00 [facility] Dorian J. PARTIAL THROMBOPLASTIN 2020-07-06 17:18:00 [facility] TIME (PTT) Dorian J. ESTIMATED GFR 2020-07-06 17:18:00 [facility] Dorian J. ECG PRE/POST OP 2020-07-04 18:43:01 BrielleMike [facility] COVID-19 QUALITATIVE 2020-07-04 18:06:00 [facility] RT-PCR HC COMPLETE BLD COUNT 2020-07-04 18:06:00 [facility] W/AUTO DIFF TYPE AND SCREEN 2020-07-04 18:06:00 [facility] HEMOGLOBIN A1C 2020-07-04 18:06:00 Brielle[facility] POTASSIUM 2020-06-29 10:37:00 [facility] PO[facility]-GLUCOSE METER 2020-06-29 10:35:00 Mata Campos [facility] REPORT OF PROCEDURE - 2020-06-29 00:00:00 Provider, Default [facility] - ENDOSCOPY SCAN Scanning [facility] TRANSFUSION SERVICE 2020-06-25 18:05:02 Provider, Default [facility] - REPORT - SCAN Scanning [facility] ECG 12-LEAD 2020-06-24 12:33:34 Unknown, Hl7 [facility] SARS-COV2/RT-PCR (HS & 2020-06-24 12:09:00 Mata Campos [facility] - REF LABS) [facility] BASIC METABOLIC PANEL (7) 2020-06-24 12:09:00 Mata Campos [facility] CBC W/PLT COUNT & AUTO 2020-06-24 12:09:00 Mata Campos [facility] DIFFERENTIAL [facility] PT/APTT 2020-06-24 12:09:00 Mata Campos [facility] TYPE AND SCREEN, 2020-06-24 12:09:00 Mata Campos [facility] AUTOMATED [facility] Plan of Care Planned Activity Planned Date Details Comments Source Future Scheduled Test 2023-05-04 Lipid panel [facility] - 00:00:00 (procedure) [code = [facility] 42019078] Future Scheduled Test 2020-09-23 DEPRESSION SCREENING [facility] - 00:00:00 (12+) [code = [facility] DEPRESSION SCREENING (12+)] Future Scheduled Test 2020-05-[address] V[address] [facility] - 00:[facility]:00 (#1) [code = [facility] INFLUENZA VACCINE (#1)] Future Scheduled Test 2016-12-23 [facility]AL [facility] WELLNESS (YEAR 2 or Medical Center FIRST YEAR if no IPPE) [code = MEDICARE ANNUAL WELLNESS (YEAR 2 or FIRST YEAR if no IPPE)] Future Scheduled Test 2007 HEPATITIS B VACCINE [facility] - 00:[facility]:00 (1 of 3 - Risk Medical Cente r Recombivax 3-dose series) [code = HEPATITIS B VACCINE (1 of 3 - Risk Recombivax 3-dose series)] Future Scheduled Test DIABETES: RETINAL [facility] EYE EXAM [code = DIABETES: RETINAL EYE EXAM] Future Scheduled Test DIABETIC FOOT EXAM [facility] [code = DIABETIC FOOT EXAM] Future Scheduled Test COVID-19 VACCINE (1) [facility] [code = COVID-19 VACCINE (1)] Future Scheduled Test Hepatitis C Method [facility] screening (procedure) [code = 240143771] Future Scheduled Test INFLUENZA VACCINE [facility] [code = INFLUENZA VACCINE] Future Appointment 2021-05-31 Stewart Jalloh MD, [address] [facility] 12:40:00 [facility] [address] [place] [address] 47[address] Future Appointment 2021-05-31 Stewart Jalloh MD, [address] [facility] 12:40:00 [facility] [address] [place] [address] 925[address] Encounters Start End Encounter Admission Attending Care Care Encounter Source Date/Time Date/Time Type Type Clinicians Facility Department ID 2019-01-07 Inpatient [facility] [id number] [facility] 11:16:20 2021-05-01 2021-05-01 Office Little 1.2.840.1 [id number] Methodi 10:44:09 13:36:27 Visit Bryan 22779.1.[address] Steven 3.430.2.7 Hospit a Dorene .3.008700 l .8 2021-05-01 2021-05-01 Prep for , 1.2.840.1 [id number] Methodi 00:00:00 00:00:00 Surgery Sherron 01534.1.[address] 3.430.2.7 Hospit a .3.928901 l .8 2021-05-01 2021-05-01 Orders Krzysztof, 1.2.840.1 [id number] Methodi 00:00:00 00:00:00 Only Saul 84454.1.[address] 3.430.2.7 Hospit a .3.548152 l .8 2021-05-01 2021-05-01 Travel 1.2.840.1 1.2.835.004 5848 [id number] Methodi 00:00:00 00:00:[address] 3.430.2.7 0.2.7.3.698 Ho spita .3.734558 084.8 l .8 2021-05-01 2021-05-01 Telephone Stewart Jalloh 1.2.840.1 [id number] Methodi 00:00:00 00:00:[address] 3.430.2.7 Hospit a .3.077915 l .8 2021-05-01 2021-05-01 Outpatient [facility] [id number] [place] 00:00:00 00:00:[address] 2021-04-19 2021-04-19 Office Stewart Jalloh 1.2.840.1 [id number] [id number] Methodi 14:50:10 15:59:01 Visit Steven Manuel 93050.1.[address] 3.430.2.7 Hospit a .3.632871 l .8 2021-04-19 2021-04-19 Travel 1.2.840.1 1.2.827.126 8753 [id number] Methodi 00:00:00 00:00:[address] 3.430.2.7 0.2.7.3.698 Ho spita .3.791940 084.8 l .8 2021-04-19 2021-04-19 Abstract Piotr, 1.2.840.1 [id number] [id number] Methodi 00:00:00 00:00:00 Farideh Shelton 86836.1.1 736 s t 3.430.2.7 Hospit a .3.815234 l .8 2021-04-19 2021-04-19 Outpatient STEWART JALLOH [facility] 991 [id number] [place] 00:00:00 00:00:[address] 2021-04-17 2021-04-17 Telephone Stewart Jalloh 1.2.840.1 [id number] Methodi 00:00:00 00:00:[address] 3.430.2.7 Hospit a .3.067784 l .8 2021-03-30 2021-03-30 Office Little 1.2.840.1 [id number] 0902 Methodi 13:30:00 15:21:25 Visit Adams, 71967.1.[address] Steven 3.430.2.7 Hospit a Dorene .3.738178 l .8 2021-03-30 2021-03-30 Lab Stewart Jalloh 1.2.840.1 [id number] 21 [id number] Methodi 14:54:45 14:59:[address] 3.430.2.7 Hospit a .3.616299 l .8 2021-03-30 2021-03-30 Outpatient [facility] [id number] 031 [place] 00:00:00 00:00:[address] 2021-03-30 2021-03-30 Outpatient [facility] [id number] 052 [place] 00:00:00 00:00:[address] 2021-03-30 2021-03-30 Outpatient STEWART JALLOH [facility] 079 [id number] [place] 00:00:00 00:00:[address] 2021-03-30 2021-03-30 Prep for Leandro, 1.2.840.1 [id number] 2100 [id number] Methodi 00:00:00 00:00:00 Surgery Padmaja 91043.1.[address] 3.430.2.7 Hospit a .3.366233 l .8 2021-03-30 2021-03-30 Orders Blankenship, 1.2.840.1 [id number] 2247 Methodi 00:00:00 00:00:00 Only Saul 91903.1.[address] 3.430.2.7 Hospit a .3.535896 l .8 2021-03-29 2021-03-29 Hospital Stewart Jalloh 1.2.840.1 [id number] 2 [id number] Methodi 10:30:00 19:18:00 Encounter Jeremias 74602.1.[address] 3.430.2.7 Hospit a .3.201947 l .8 2021-03-29 2021-03-29 Anesthesia Geovannialfaaugustin Mckenna E. 1.2.840 .1 [id number] Methodi 16:06:00 18:35:00 Event Catina Adorno 41683.1.[address] 3.430.2.7 Hospit a .3.554295 l .8 2021-03-29 2021-03-29 Surgery Stewart Jalloh 1.2.840.1 [id number] 21 [id number] Methodi 14:13:00 16:28:[address] 3.430.2.7 Hospit a .3.932935 l .8 2021-03-29 2021-03-29 Outpatient STEWART JALLOH [facility] 021 172 [id number] [place] 00:00:00 00:00:[address] 2021-03-29 2021-03-29 Travel 1.2.840.1 1.2.891.805 4197 [id number] Methodi 00:00:00 00:00:[address] 3.430.2.7 0.2.7.3.698 Ho spita .3.833016 084.8 l .8 2021-03-28 2021-03-28 Prep for Stewart Jalloh 1.2.840.1 [id number] 2 [id number] Methodi 00:00:00 00:00:00 Surgery Jeremias 04113.1.[address] 3.430.2.7 Hospit a .3.813634 l .8 2021-03-22 2021-03-22 Telephone Stewart Jalloh 1.2.840.1 [id number] Methodi 00:00:00 00:00:[address] 3.430.2.7 Hospit a .3.998300 l .8 2021-03-20 2021-03-20 [place] Yeimi, Stewart 1.2.840.1 [id number] Methodi 15:30:00 15:40:00 Consult Jeremias 00258.1.[address] 3.430.2.7 Hospit a .3.504391 l .8 2021-03-17 2021-03-17 Outpatient YEIMI, STEWART [facility] 628 [id number] [place] 00:00:00 00:00:[address] 2021-03-17 2021-03-17 Outpatient YEIMI, STEWART [facility] 822 [id number] [place] 00:00:00 00:00:[address] 2021-03-17 2021-03-17 Outpatient YEIMI, [facility] 512 [id number] [place] 00:00:00 00:00:[address] 2021-03-17 2021-03-17 Travel 1.2.840.1 1.2.573.205 3212 [id number] Methodi 00:00:00 00:00:[address] 3.430.2.7 0.2.7.3.698 spita .3.623991 084.8 l .8 2021-03-15 2021-03-15 [facility] Yeimi, Stewart 1.2.840.1 [id number] 2 [id number] Methodi 11:01:58 23:59:00 Encounter Jeremias 89722.1.[address] 3.430.2.7 Hospit a .3.095416 l .8 2021-03-15 2021-03-15 [facility], Stewart 1.2.840.1 [id number] 21 [id number] Methodi 09:41:32 09:46:[address] 3.430.2.7 Hospit a .3.918585 l .8 2021-03-15 2021-03-15 [facility] [id number] [place] 00:00:00 00:00:[address] 2021-03-15 2021-03-15 Outpatient YEIMI, STEWART [facility] 685 [id number] [place] 00:00:00 00:00:[address] 2021-03-15 2021-03-15 Travel 1.2.840.1 1.2.102.736 3810 116280 Methodi 00:00:00 00:00:[address] 3.430.2.7 0.2.7.3.698 Ho spita .3.334595 084.8 l .8 2021-03-10 2021-03-10 Telephone Cem, 1.2.840.1 [id number] Methodi 00:00:00 00:00:[address] 3.430.2.7 Hospit a .3.583899 l .8 2021-03-08 2021-03-08 [facility] Yeimi Stewart 1.2.840.1 [id number] 2 [id number] Methodi 11:07:17 23:59:00 Encounter Jeremias 85842.1.[address] 3.430.2.7 Hospit a .3.202554 l .8 2021-03-08 2021-03-08 Outpatient STEWART JALLOH [facility] 071 [id number] [place] 00:00:00 00:00:[address] 2021-03-08 2021-03-08 Travel 1.2.840.1 1.2.776.478 2057 [id number] Methodi 00:00:00 00:00:[address] 3.430.2.7 0.2.7.3.698 Ho spita .3.862547 084.8 l .8 2021-03-03 2021-03-03 Telephone Sherri Baugh 1.2.840.1 [id number] Methodi 00:00:00 00:00:[address] 3.430.2.7 Hospit a .3.599426 l .8 2021-02-17 2021-02-17 Travel 1.2.840.1 1.2.610.717 4029 [id number] Methodi 00:00:00 00:00:[address] 3.430.2.7 0.2.7.3.698 Ho spita .3.182452 084.8 l .8 2021-02-13 2021-02-13 Lab Yeimi, Stewart 1.2.840.1 [id number] 21 [id number] Methodi 16:34:17 16:39:[address] 3.430.2.7 Hospit a .3.477567 l .8 2021-02-13 2021-02-13 Office Yeimi, Stewart 1.2.840.1 [id number] 21 [id number] Methodi 15:14:54 16:28:02 Visit Jeremias 87413.1.[address] 3.430.2.7 Hospit a .3.697680 l .8 2021-02-13 2021-02-13 Outpatient YEIMI, STEWART [facility] 262 [id number] [place] 00:00:00 00:00:[address] 2021-02-13 2021-02-13 Outpatient YEIMI, STEWART [facility] 260 [id number] [place] 00:00:00 00:00:[address] 2021-02-13 2021-02-13 Outpatient YEIMI, STEWART [facility] 579 [id number] [place] 00:00:00 00:00:[address] 2021-02-13 2021-02-13 Telephone Yeimi, Stewart 1.2.840.1 [id number] Methodi 00:00:00 00:00:[address] 3.430.2.7 Hospit a .3.782695 l .8 2021-02-13 2021-02-13 Travel 1.2.840.1 1.2.834.341 1049 735159 Methodi 00:00:00 00:00:[address] 3.430.2.7 0.2.7.3.698 Ho spita .3.923038 084.8 l .8 2021-02-10 2021-02-10 Abstract Piotr 1.2.840.1 [id number] 2100 [id number] Methodi 00:00:00 00:00:00 Farideh Shelton 47946.1.1 166 s t 3.430.2.7 Hospit a .3.021678 l .8 2021-01-27 2021-01-29 Emergency Lenny Mayo 1.2.840.1 1041 [id number] Methodi 22:13:00 13:14:00 Luci Felton Leonor 78286.1.1 78 5 [facility] 3.430.2.7 Hospita .3.222135 l .8 2021-01-27 2021-01-29 [facility] [id number] 176 [place] 00:00:00 00:00:[address] 2021-01-28 2021-01-28 Travel 1.2.840.1 1.2.799.415 6574 [id number] Methodi 00:00:00 00:00:[address] 3.430.2.7 0.2.7.3.698 Ho spita .3.955841 084.8 l .8 2021-01-26 2021-01-27 Emergency Josep Sheehan 1.2.840.1 1041 40301 [id number] Methodi 12:14:00 21:32:00 Jose Francisco Mikomitchell Leonor 66818.1.1 99 6 [facility] 3.430.2.7 Hospita .3.623362 l .8 2021-01-27 2021-01-27 Anesthesia Kelly Zuñiga V. 1.2.840.1 [id number] Methodi 15:02:00 17:54:00 Event Katty Covington 35906.1.[address] 3.430.2.7 Hospit a .3.534804 l .8 2021-01-27 2021-01-27 Surgery Andres, 1.2.840.1 [id number] Methodi 15:15:00 16:55:[address]34.1.[address] 3.430.2.7 Hospit a .3.364302 l .8 2021-01-26 2021-01-27 Outpatient [facility] 064 [id number] 054 [place] 00:00:00 00:00:[address] 2021-01-26 2021-01-26 Travel 1.2.840.1 1.2.162.848 9934 [id number] Methodi 00:00:00 00:00:[address] 3.430.2.7 0.2.7.3.698 Ho spita .3.323147 084.8 l .8 2021-01-25 2021-01-25 Pre-Admiss Andres, 1.2.840.1 [id number] Methodi 13:17:20 14:17:20 ion Mata Liang 54594.1.[address] Testing 3.430.2.7 Hospit a .3.079158 l .8 2021-01-25 2021-01-25 [facility] 2100 [id number] [place] 00:00:00 00:00:[address] MATA [address] 2021-01-24 2021-01-24 Travel 1.2.840.1 1.2.782.853 1034 [id number] Methodi 00:00:00 00:00:[address] 3.430.2.7 0.2.7.3.698 Ho spita .3.551417 084.8 l .8 2021-01-12 2021-01-12 Travel 1.2.840.1 1.2.216.809 7658 091206 Methodi 00:00:00 00:00:[address] 3.430.2.7 0.2.7.3.698 spita .3.866873 084.8 l .8 2020-12-16 2020-12-16 Telephone Stewart Jalloh 1.2.840.1 [id number] Methodi 00:00:00 00:00:[address] 3.430.2.7 Hospit a .3.562213 l .8 2020-12-13 2020-12-13 Telephone Joni, 1.2.840.1 [id number] 986 [id number] Methodi 00:00:00 00:00:[address] 3.430.2.7 Hospit a .3.080475 l .8 2020-11-23 2020-11-23 [facility], 1.2.840.1 [id number] 21 [id number] Methodi 12:42:00 19:00:00 Encounter Mata T. 84713.1.1 317 s t 3.430.2.7 Hospit a .3.891272 l .8 2020-11-23 2020-11-23 Anesthesia Mike Og 1.2.840.1 [id number] Methodi 16:22:00 17:40:00 Event Mary CarmenKatty 07622.1.[address] 3.430.2.7 Hospit a .3.768954 l .8 2020-11-23 2020-11-23 Surgery [facility] 1.2.840.1 [id number] 603 [id number] Methodi 15:10:00 16:40:[address]27.1.[address] 3.430.2.7 Hospit a .3.125813 l .8 2020-11-23 2020-11-23 [facility] 2100 [id number] [place] 00:00:00 00:00:00 IMRAN [address] 2020-11-21 2020-11-21 Pre-Admiss Andres, 1.2.840.1 [id number] Methodi 15:44:14 16:44:14 ion Imran T. 33377.1.[address] Testing 3.430.2.7 Hospit a .3.810880 l .8 2020-11-21 2020-11-21 Outpatient [facility] 2100 [id number] [place] 00:00:00 00:00:[address]AN [address] 2020-11-21 2020-11-21 Travel 1.2.840.1 1.2.803.491 2229 [id number] Methodi 00:00:00 00:00:[address] 3.430.2.7 0.2.7.3.698 Ho spita .3.086232 084.8 l .8 2020-11-02 2020-11-02 [facility], 1.2.840.1 [id number] 21 [id number] Methodi 12:08:00 18:00:00 Encounter Imran T. 06377.1.1 308 s t 3.430.2.7 Hospit a .3.883574 l .8 2020-11-02 2020-11-02 Anesthesia Dorian Sesay J. 1.2.840.1 [id number] Methodi 13:58:00 16:11:00 Event Katty Covington 62723.1.[address] 3.430.2.7 Hospit a .3.832961 l .8 2020-11-02 2020-11-02 Surgery [facility], 1.2.840.1 [id number] Methodi 13:30:00 15:00:[address] 3.430.2.7 Hospit a .3.721808 l .8 2020-11-02 2020-11-02 Outpatient [place] [address] 2100 [id number] [place] 00:00:00 00:00:00 IMRAN [address] 2020-11-01 2020-11-01 Pre-Admiss [facility], 1.2.840.1 [id number] Methodi 13:30:07 14:30:07 ion Mata T. 59447.1.[address] Testing 3.430.2.7 Hospit a .3.627982 l .8 2020-11-01 2020-11-01 [facility] 2099 [id number] [place] 00:00:00 00:00:[address] IMRAN [address] 2020-11-01 2020-11-01 Travel 1.2.840.1 1.2.111.885 7138 [id number] Methodi 00:00:00 00:00:[address] 3.430.2.7 0.2.7.3.698 Ho spita .3.002085 084.8 l .8 2020-10-24 2020-10-24 Outpatient [facility] 7511 08:44:00 08:44:00 [facility] 2020-10-19 2020-10-19 [facility], 1.2.840.1 [id number] 21 [id number] Methodi 10:05:00 17:11:00 Encounter Mata T. 44566.1.1 493 [address] t 3.430.2.7 Hospit a .3.592450 l .8 2020-10-19 2020-10-19 Anesthesia Kenny Coppola 1.2.840.1 [id number] Methodi 12:17:00 15:09:00 Event Cristopher Covingtonelisse 13813.1.[address] 3.430.2.7 Hospit a .3.094320 l .8 2020-10-19 2020-10-19 Surgery [facility], 1.2.840.1 [id number] 641 [id number] Methodi 12:00:00 13:30:[address]248.1.[address] 3.430.2.7 Hospit a .3.781913 l .8 2020-10-19 2020-10-19 Outpatient [place] [id number] 2100 [id number] [place] 00:00:00 00:00:00 IMRAN [address] 2020 2020 Pre-Admiss [facility], 1.2.840.1 [id number] Methodi 13:03:57 14:03:57 ion Imran T. 13815.1.[address] Testing 3.430.2.7 Hospit a .3.136317 l .8 2020 2020 Outpatient [facility] 2099 [id number] [place] 00:00:00 00:00:00 IMRAN [address] 2020 2020 Travel 1.2.840.1 1.2.289.593 9924 [id number] Methodi 00:00:00 00:00:[address] 3.430.2.7 0.2.7.3.698 Ho spita .3.571925 084.8 l .8 2020-10-06 2020-10-[address] [facility], 1.2.840.1 [id number] 805 [id number] Methodi 00:00:00 00:00:[address] 3.430.2.7 Hospit a .3.214343 l .8 2020-10-05 2020-10-05 [facility], 1.2.840.1 [id number] Methodi 10:45:47 23:59:00 Encounter Imran T. 47737.1.1 579 s t 3.430.2.7 Hospit a .3.609165 l .8 2020-10-05 2020-10-05 [facility], 1.2.840.1 [id number] 21 [id number] Methodi 10:45:32 23:59:00 Encounter Imran T. 60086.1.1 581 s t 3.430.2.7 Hospit a .3.322935 l .8 2020-10-05 2020-10-05 [facility], 1.2.840.1 [id number] 21 [id number] Methodi 06:11:00 14:25:00 Encounter Mata Liang 04046.1.1 969 s t 3.430.2.7 Hospit a .3.322683 l .8 2020-10-05 2020-10-05 Anesthesia Mike Og 1.2.840.1 [id number] Methodi 08:18:00 10:30:00 Event Marisol Clinton 66682.1.[address] 3.430.2.7 Hospit a .3.043424 l .8 2020-10-05 2020-10-05 Surgery Andres, 1.2.840.1 [id number] Methodi 08:00:00 09:20:[address]20.[address] 3.430.2.7 Hospit a .3.639816 l .8 2020-10-05 2020-10-05 Outpatient [place] [address] 2099 [id number] [place] 00:00:00 00:00:00 IMRAN [address] 2020-10-03 2020-10-03 [facility] 1.2.840.1 [id number] 2 [id number] Methodi 15:16:26 23:59:00 Encounter shamika 39385.1.[address] Dorian J. 3.430.2.7 Ho spita .3.460214 l .8 2020-10-03 2020-10-03 Pre-Admiss Andres 1.2.840.1 [id number] Methodi 13:48:50 14:48:50 ion Jcsangeeta Mikala. 48685.1.[address] Testing 3.430.2.7 Hospit a .3.631989 l .8 2020-10-03 2020-10-03 Outpatient [facility] 2100 [id number] [place] 00:00:00 00:00:00 IMRAN [address] 2020-10-03 2020-10-03 Outpatient [facility] [id number] [place] 00:00:00 00:00:00 KI, [address] 2020-10-03 2020-10-03 Travel 1.2.840.1 1.2.308.029 0996 [id number] Methodi 00:00:00 00:00:[address] 3.430.2.7 0.2.7.3.698 Ho spita .3.692869 084.8 l .8 2020-09-28 2020-09-28 Travel 1.2.840.1 1.2.033.268 8671 [id number] Methodi 00:00:00 00:00:[address] 3.430.2.7 0.2.7.3.698 Ho spita .3.793854 084.8 l .8 2020-07-14 2020-07-14 Emergency Josep Sheehan 1.2.840.1 1041 76716 [id number] Methodi 10:33:00 19:19:00 Luci Felton 46181.1.[address] 3.430.2.7 Hospit a .3.499168 l .8 2020-07-14 2020-07-14 Anesthesia Kenny Coppola 1.2.840.1 [id number] Methodi 15:32:00 16:13:00 Event Murphy Carreno 08726.1.[address] 3.430.2.7 Hospit a .3.251925 l .8 2020-07-14 2020-07-14 Surgery Andres 1.2.840.1 [id number] 945 [id number] Methodi 15:30:00 16:10:00 M[address]682.1.[address] 3.430.2.7 Hospit a .3.917208 l .8 2020-07-14 2020-07-14 Outpatient LUCI FELTON [facility] 064 992 [id number] [place] 00:00:00 00:00:[address] 2020-07-14 2020-07-14 Travel 1.2.840.1 1.2.780.143 3917 [id number] Methodi 00:00:00 00:00:[address] 3.430.2.7 0.2.7.3.698 Ho spita .3.969559 084.8 l .8 2020-07-06 2020-07-06 [facility] [facility], 1.2.840.1 [id number] Methodi 11:49:00 17:30:00 Encounter Imran T. 87963.1.1 416 s t 3.430.2.7 Hospit a .3.102835 l .8 2020-07-06 2020-07-06 Anesthesia Mike Og 1.2.840.1 [id number] Methodi 14:12:00 15:43:00 Event Diana Arias 73076.1.[address] 3.430.2.7 Hospit a .3.324490 l .8 2020-07-06 2020-07-06 Surgery [facility], 1.2.840.1 [id number] Methodi 13:30:00 15:05:00 [address]25[address] 3.430.2.7 Hospit a .3.543071 l .8 2020-07-06 2020-07-06 Outpatient [facility] 021 [id number] [place] 00:00:00 00:00:00 IMRAN [address] 2020-07-04 2020-07-04 Pre-Admiss [facility], 1.2.840.1 [id number] Methodi 12:26:49 13:26:49 ion Imran T. 48438.1.[address] Testing 3.430.2.7 Hospit a .3.913111 l .8 2020-07-04 2020-07-04 Outpatient [facility] [id number] [place] 00:00:00 00:00:00 IMRAN [address] 2020-07-04 2020-07-04 Travel 1.2.840.1 1.2.880.487 [id number] Methodi 00:00:00 00:00:[address] 3.430.2.7 0.2.7.3.698 Ho spita .3.377204 084.8 l .8 2020-07-01 2020-07-01 Travel 1.2.840.1 1.2.208.011 [id number] Methodi 00:00:00 00:00:[address] 3.430.2.7 0.2.7.3.698 Ho spita .3.888401 084.8 l .8 2020-06-29 2020-06-29 [facility] [id number] 09:53:00 14:52:00 Encounter [facility] 2020-06-29 2020-06-29 Anesthesia [facility] [id number] 14:50:39 14:50:39 [facility] 2020-06-29 2020-06-29 Travel [facility] [id number] [facility] 00:[facility]00 00:00:00 [facility] 2020-06-24 2020-06-24 [facility] [id number] 12:07:22 23:59:00 Encounter [facility] 2020-06-24 2020-06-24 Orders [facility] [id number] 00:00:00 00:00:00 Only [facility] 2020-06-23 2020-06-23 Travel [facility] [id number] [facility] 00:[facility] 00:00:00 [facility] 2020-06-22 2020-06-22 Office [facility], 1.2.840.1 [id number] Methodi 15:17:00 16:01:05 Visit Lambert 63041.1.[address] Damian 3.430.2.7 Hospit a .3.089284 l .8 2020-06-22 2020-06-22 Outpatient ROSENBAUM, [facility] [id number] [place] 00:00:00 00:00:00 VINCENT [address] 2020-06-22 2020-06-22 Travel 1.2.840.1 1.2.034.898 [id number] Methodi 00:00:00 00:00:[address] 3.430.2.7 0.2.7.3.698 Ho spita .3.590979 084.8 l .8 2020-06-01 2020-06-01 Inpatient [facility]10 15:33:00 13:44:00 [facility] 2020-05-25 2020-05-25 Office Rosenbaum, 1.2.840.1 [id number] Methodi 14:49:30 15:23:54 Visit Shahidjas 42310.1.[address] Damian 3.430.2.7 Hospit a .3.430194 l .8 2020-05-25 2020-05-25 Outpatient ROSENBAUM, [facility] [id number] [place] 00:00:00 00:00:00 VINCENT [address] 2020-05-25 2020-05-25 Travel 1.2.840.1 1.2.817.609 [id number] Methodi 00:00:00 00:00:[address] 3.430.2.7 0.2.7.3.698 Ho spita .3.020100 084.8 l .8 2020-05-03 2020-05-03 Outpatient ROSENBAUM, [facility] [id number] [place] 00:00:00 00:00:00 VINCENT [address] 2020-05-02 2020-05-02 Outpatient ANDRES, [facility] 021 [id number] [place] 00:00:00 00:00:00 IMRAN [address] 2020-04-27 2020-04-27 Outpatient ANDRES, [facility] [id number] [place] 00:00:00 00:00:00 IMRAN [address] 2020-04-04 2020-04-04 Outpatient KATE, [facility] 021 [id number] [place] 00:00:00 00:00:00 UTTAM [address] 2020-04-01 2020-04-01 Outpatient KATE, [facility] [id number] [place] 00:00:00 00:00:00 UTTAM [address] 2020-04-01 2020-04-01 Outpatient KATE, [facility] [id number] [place] 00:00:00 00:00:00 UTTAM [address] 2020-03-23 2020-03-25 Inpatient LUCI FELTON [facility] 064 [id number] [place] 00:00:00 00:00:[address] 2020-03-23 2020-03-23 Outpatient ROSENBAUM, [facility] [id number] [place] 00:00:00 00:00:00 VINCENT [address] 2020-03-18 2020-03-18 Outpatient ROSENBAUM, [facility] [id number] [place] 00:00:00 00:00:00 VINCENT [address] 2020-03-11 2020-03-11 Outpatient ROSENBAUM, [facility] [id number] [place] 00:00:00 00:00:00 VINCENT [address] 2020-02-04 2020-02-05 Outpatient LUCI FELTON [facility] 021 [id number] [place] 00:00:00 00:00:[address] 2020-01-27 2020-01-27 Outpatient ANDRES, [facility] [id number] [place] 00:00:00 00:00:00 IMRAN [address] 2020-01-27 2020-01-27 Outpatient WOJCIECHOWS [facility] [id number] [place] 00:00:00 00:00:00 KI, [address] 2019-10-19 2019-10-20 Outpatient LUCI FELTON [facility] [id number] [place] 00:00:00 00:00:[address] 2019-08-24 2019-08-24 Outpatient ANDRES, [facility] 021 [id number] [place] 00:00:00 00:00:00 IMRAN [address] 2019-07-24 2019-07-24 Outpatient [facility] 7508 10:54:00 10:54:[address] [facility] 2019-07-08 2019-07-08 Outpatient [facility] 7509 12:34:00 12:34:00 [facility] 2019-03-20 2019-03-20 Outpatient [facility] 7507 16:06:00 16:06:00 [facility] 2019-03-20 2019-03-20 Outpatient [facility] 7504 12:22:00 12:22:[facility] 2019-02-27 2019-02-27 Outpatient [facility] 7506 11:11:00 11:11:[facility] 2019-01-21 2019-01-21 Outpatient [facility] 7505 09:45:00 09:45:[address] [facility] [address] [facility] Results Test Description Test Time Test Comments Results Result Comments Source ECG 12 lead 2021-03-30 22:19:41 Test Item Value Reference Range Interpretation Comme nts Ventricular rate (test code = 253) Atrial rate (test code = 255) NH interval (test code = 266) QRSD interval (test code = 260) QT interval (test code = 264) QTC interval (test code = 265) P axis 1 (test code = 267) QRS axis 1 (test code = 268) T wave axis (test code = 270) EKG impression (test code = 273) Sinus tachycardia-Possible Left at rial enlargement-Right axis deviation-Abnormal ECG-In automated comparison with ECG of 27-JAN-2021 23:10,-No significant change was found- [facility] [id number] 23:34:12 Test Item Value Reference Range Interpretation Comments POC glucose (test code = 79111-5) 119 mg/dL 65-99 H Lab Interpretation (test code = Abnormal 28807-1) [facility]w Yoeejtzm7167-12-23 21:00:00 Examination: XR CHEST 1 PORTABLE Clinical history: preop Comparison: 01/27/2021 IMPRESSION: The lungs are unchanged with some minimal right midlung atelectasis or scarring again seen. No pneumothoraces are identified. There are no apparent pleural effusions. The cardiomediastinal silhouette and the remainder of the chest appear essentially unchanged. [id number] Hm Interface, Radiology Results Incoming - 03/29/2021 4:03 PM CDT Examination: XR CHEST 1 VW PORTABLEClinical history: preopComparison: 01/27/2021IMPRESSION: The lungs are unchanged with some minimal right midlung atelectasis or scarring again seen.No pneumothoraces are identified. There are no apparent pleural effusions.The cardiomediastinal silhouette and the remainder of the chest appear essentially unchanged.[id number] HospitalPeripheral Erewu4884-33-31 19:50:14 Mckenna Dickens MD 03/29/2021 2:50 PMPeripheral Block Date/Time: 03/29/2021 2:50 PM Patient Location: Pre-opStart Time: 03/29/2021 2:36 PMReason for Block: at surgeon's request Performed by: anesthesiologistAnesthesiologist: Mckenna Dickens MDResident/MATERIAL WORKER/AA: Catina Adorno MDAuthorized by: Mckenna Dickens MD Preprocedure: patient identified, IV checked, site and side verified, risks and benefits discussed, procedure verified, surgical consent complete, patient position confirmed, monitors and equipment checked, pre-op evaluation complete, site marked, timeout performed prior to procedure and coagulation status reviewed Peripheral Nerve Block: Patient Position: Supine Prep: ChloraPrep Monitoring: Blood pressure monitoring, continuous pulse oximetry andheart rateBlock Type: SupraclavicularLaterality: RightInjection Technique: Single injectionProcedures: ultrasound guided Ultrasound documentation: Printed/placed in chartLocal Infiltration (See MAR for details): LidocaineLoss of Twitch: 0.3 mANeedle: Needle Type: Pajunk Needle Gauge: 22 GAssessment: Injection Assessment: Visualized needle/local anesthetic surrounding nerve, visualized pertinent vascular structures and nerves, needle tip visualized at all times during injection of medication, no symptoms of intraneural/intravenous injection and intermittent aspiration during local anesthetic administration Paresthesia Pain: None Heart Rate Change: No Slow Fractionated Injection: Yes Block outcome: No apparent complications, patient comfortable and patient tolerated procedure wellMedications AdministeredFentaNYL (SUBLIMAZE), 50 mcgMIDAZolam PF (VERSED) injection 1 mg/1 mL,1 mgropivacaine 0.5 % PF (mL), 20 mLMethod[facility] HospitalIR Bilateral Lower Extremity [id number] 16:02:07 ARTERIOGRAM OF BILATERAL LOWER EXTREMITIES: Performing James Pearson MD AssistantsNone Anesthesia TypeModerate sedation was administered by the procedure nurse and monitored by the procedure physician for a total drsv-fl-dlen sedation time of 60 minutes Lidocaine 1% was used for local anest hetic. [age]qfeqj7 years old male with end-stage renal disease presented for evaluation for accessplacement. Procedures:1. Abdominal aortogram.2. Pelvic arteriogram.3. Bilateral lower extremities arteriograms. Technique: Written informed consent was obtained prior to the procedure. The patient was placed in a supine position and the right groin was sterilely prepared and draped in the routine manner. Lidocaine 1% was used for local anesthetic. Using real-time ultrasound guidance, a 21-gauge micropuncture needle was used to access the right common femoral artery in a retrograde fashion. A 0.018 inch guidewire was advanced centrally through the needle under fluoroscopy. The needle was removed, and a micropuncture sheath system was then placed. The inner dilator and guidewire were then removed, and a 0.035 inch J-wire was advanced through the micropuncture sheath and into the abdominal aorta under fluoroscopy. The micropuncture sheath was removed, and a 5-Georgian vascular sheath was then placed.Under ultrasound guidance, documentation of vessel patency, needle access with permanent recording, and reporting are performed followed by placement of a sheath in the right common femoral artery. A right common femoral artery arteriogram was performed via contrast injection of the sheath. A 5 Georgian pigtail catheter was advanced over a 0.035 wire and placed within the mid abdominal aorta, aortogramwas then performed. The catheter was then removed and a 5 Georgian Cobra catheter was advanced withinthe left common iliac artery and repeat arteriogram performed. This was performed by A 5 Georgian Cobra catheter was advanced over a 0.035 guidewire and selectively within the left external iliac. Arteriogram was then performed. Arteriogram of left lower extremity was then performed including left common femoral, SFA, popliteal and tibial arteries. The catheter was then removed over the wire. Right lower extremity was then performed by injecting contrast through the existing sheath including right external iliac, common femoral, SFA, popliteal and tibial arteries. The right common femoral artery sheath was removed and hemostasis is achieved using 5 Fr Mynx closure device. The patient tolerated the procedure well and left the IR suite in stable condition. Radiation DoseKa,r = 827 mGy ComplicationsNone Specimens RemovedNone Estimated Blood LossLess than 5 mL Blood/Blood Products AdministeredNone Grafts/ImplantsAs described in the above report FINDINGS AND IMPRESSION:1. Abdominal aorta is patent without aneurysm or stenosis.2. Pelvic arteriogram demonstrates patent bilateral common, external and internal iliac arteries. 3. Left lower extremity angiogram demonstrates a moderate short segment stenosis (approximately 70%) of proximal left SFA adjacent to surgical clips (presumably AV graft). Extensive calcifications of tibial arteries resulting in mild long segment multifocal stenosis of the left posterior tibial artery. Remaining arteries of the left lower extremity are patent.4. Right lower extremity angiogram demonstrates extensive calcifications anterior wall calcifications of resultingin mild long segments multifocal stenosis of right posterior tibial artery. Patent right common femoral, SFA, profunda and popliteal arteries. [facility] [id number] Interface, Radiology Results Incoming - 03/17/2021 11:05 AM CDT ARTERIOGRAM OF BILATERAL LOWER EXTREMITIES:Performing RadiologistBob Pearson MD AssistantsNone Anesthesia TypeModerate sedation was administered by the procedure nurse and monitored by the procedure physician for a total pysy-lz-myib sedation time of 60 minutes Lidocaine 1% was used for local anesthetic. Vezljcdioe96gidek old male with end-stage renal disease presented for evaluation for access placement.Procedures:1. Abdominal aortogram.2. Pelvic arteriogram.3. Bilateral lower extremities arteriograms.Technique:Written informed consent was obtained prior to the procedure. The patient was placed in a supine position and the right groin was sterilely prepared and draped in the routine manner. Lidocaine 1% was used for local anesthetic. Using real-time ultrasound guidance, a 21-gauge micropuncture needle was usedto access the right common femoral artery in a retrograde fashion. A 0.018 inch guidewire was advanced centrally through the needle under fluoroscopy. The needle was removed, and a micropuncture sheathsystem was then placed. The inner dilator and guidewire were then removed, and a 0.035 inch J-wire was advanced through the micropuncture sheath and into the abdominal aorta under fluoroscopy. The micro puncture sheath was removed, and a 5-Georgian vascular sheath was then placed. Under ultrasound guidance, documentation of vessel patency, needle access with permanent recording, and reporting are performed followed by placement of a sheath in the right common femoral artery.A right common femoral artery arteriogram was performed via contrast injection of the sheath.A 5 Georgian pigtail catheter was advanced over a 0.035 wire and placed within the mid abdominal aorta, aortogram was then performed. The catheter was then removed and a 5 Georgian Cobra catheter was advanced within the left common iliac artery and repeat arteriogram performed. This was performed byA 5 Georgian Cobra catheter was advanced overa 0.035 guidewire and selectively within the left external iliac. Arteriogram was then performed. Arteriogram of left lower extremity was then performed including left common femoral, SFA, popliteal and tibial arteries. The catheter was then removed over the wire. Right lower extremity was then perform ed by injecting contrast through the existing sheath including right external iliac, common femoral,SFA, popliteal and tibial arteries. The right common femoral artery sheath was removed and hemostasis is achieved using 5 Fr Mynx closure device.The patient tolerated the procedure well and left the IR suite in stable condition.Radiation DoseKa,r = 827 mGyComplicationsNone Specimens RemovedNone Estimated Blood LossLess than 5 mL Blood/Blood Products AdministeredNone Grafts/ImplantsAs described in the above report FINDINGS AND IMPRESSION:1. Abdominal aorta is patent without aneurysm or stenosis.2. Pelvic arteriogram demonstrates patent bilateral common, external and internal iliac arteries. 3. Leftlower extremity angiogram demonstrates a moderate short segment stenosis (approximately 70%) of proximal left SFA adjacent to surgical clips (presumably AV graft). Extensive calcifications of tibial arteries resulting in mild long segment multifocal stenosis of the left posterior tibial artery. Remaining arteries of the left lower extremity are patent.4. Right lower extremity angiogram demonstrates extensive calcifications anterior wall calcifications of resulting in mild long segments multifocal stenosis of right posterior tibial artery. Patent right common femoral, SFA, profunda and popliteal arteries.[id number] Bilateral [facility] Extremity [id number] 16:09:44Performing RadiologistNassiyaya Pearson MD BILATERAL LOWER EXTREMITIES VENOGRAM: AssistantsNone Pre Procedure Icfxagelp1 years old male with end-stage renal disease. Post Procedure DiagnosisSame.Status post bilateral common femoral venograms. Procedures1. Bilateral common femoral venograms2. Inferior venacavogram. ANESTHESIA TYPE:Moderate sedation was administered by the procedure nurse and monitored by the procedure physician for a pgsw-vy-tsqk sedation time of 60 minutes. Lidocaine 1% was used for local anesthetic. TechniqueWritten informed consent was obtained prior to the procedure. The patient was placed in a supine position. The right groin was sterilely prepared and draped in the routine manner. All elements maximal sterile barrier technique were followed. Lidocaine 1% was used for local anesthetic. Using real-time ultrasound guidance, a 21-gauge micropuncture needle was used to access the right common femoral vein. A 0.018 inch guidewire was advanced through the needle centrally under fluoroscopy. The needle was removed and a micropuncture sheath system was then placed. Under ultrasound guidance, documentation of vessel patency, needle access with permanent recording, and reporting are performed followed by placement of a sheath in the right common femoral vein. The inner dilator and guidewire were then removed, and a 0.035 inch J-wire was advanced through the micropuncture sheath and into the inferior vena cava. The micropuncture sheath was then removed over the guidewire, and a 5-Georgian vascular sheath was placed. A right common femoral venogram was then performed with injection of contrast through the 5-Georgian vascular sheath. An inferior venacavogram was then performed. A 5-Georgian rim catheter was then advanced over the guidewire. Using a 0.035 inch glide, the remnant catheter was advanced into the left common iliac vein. Eventually, the catheter was advanced into the left common femoral vein. A left common femoral venogram was then performed with injection of contrast. The catheter was then pulled back and advanced into the low inferior vena cava. The catheter and sheath were then removed from the right common femoral vein and hemostasis was achieved with manual compression. The patient tolerated the procedure well. Total Fluoroscopic Time60 minutes ComplicationsNone Specimens RemovedNone Estimated Blood LossLess than 1 mL Blood/Blood Products AdministeredNone Grafts/ImplantsNone Impression: 1. There is mild short segment narrowing of left common femoralvein. 2. Patent bilateral common and external iliac veins. 3. Patent IVC without flow-limiting stenosis. [facility]-[id number] Interface, Radiology Results Incoming - 03/16/2021 11:12 AM CDT Performing RadiologistBob Pearson MD BILATERAL LOWER EXTREMITIES VENOGRAM:Francesca Pre Procedure [age]vbtikjmh46 years old male with end-stage renal disease.Post Procedure DiagnosisSame.Status post bilateral common femoral venograms. Procedures1. Bilateral common femoral venograms2. Inferior venacavogram. ANESTHESIA TYPE:Moderate sedation was administered by the procedure nurse and monitored by the procedure physician for a swxo-hz-cmfv sedation time of 60 minutes. Lidocaine 1% was used for local anesthetic. TechniqueWritten informed consent was obtained prior to the procedure. The patient was placed in a supine position. The right groin was sterilely prepared and draped in the routine manner. All elements maximal sterile barrier technique were followed. Lidocaine 1% was used for local anesthetic. Using real-time ultrasound guidance, a 21-gaugemicropuncture needle was used to access the right common femoral vein. A 0.018 inch guidewire was adv anced through the needle centrally under fluoroscopy. The needle was removed and a micropuncture sheath system was then placed. Under ultrasound guidance, documentation of vessel patency, needle accesswith permanent recording, and reporting are performed followed by placement of a sheath in the rightcommon femoral vein. The inner dilator and guidewire were then removed, and a 0.035 inch J-wire was advanced through the micropuncture sheath and into the inferior vena cava. The micropuncture sheath was then removed over the guidewire, and a 5-Georgian vascular sheath was placed. A right common femoralvenogram was then performed with injection of contrast through the 5-Georgian vascular sheath. An inferior venacavogram was then performed. A 5-Georgian rim catheter was then advanced over the guidewire. Using a 0.035 inch glide, the remnant catheter was advanced into the left common iliac vein. Eventually, the catheter was advanced into the left common femoral vein. A left common femoral venogram was then performed with injection of contrast. The catheter was then pulled back and advanced into the low inferior vena cava. The catheter and sheath were then removed from the right common femoral vein and hemostasis was achieved with manual compression. The patient tolerated the procedure well. Total Fluoroscopic Time60 minutes ComplicationsNone Specimens RemovedNone Estimated Blood LossLess than 1 mL Blood/Blood Products AdministeredNone Grafts/ImplantsNone Impression: 1. There is mild short segment narrowing of left common femoral vein. 2. Patent bilateral common and external iliac veins.3. Patent IVC without flow-limiting stenosis.[id number]IR Bilateral Upper Extremity Venogram 2021-03-10 18:38:45Performing RadiologistRohimikala Rogel MD AssistantsNone Anesthesia TypeLidocaine 1% was used for local anesthetic. Moderate Sedation: Under physician supervision, Versed and fentanyl were administered intravenously for moderate sedation. Pulse oximetry, heart rate, and blood pressure were continuously monitored by an independent trained observer present. The physician spent 49 minutes of face to face sedation time with the patient. Pre Procedure DiagnosisPreprocedure evaluation for dialysis access. Post Procedure DiagnosisStatus post bilateral upper extremity venograms ProceduresRight upper extremityvenogram TechniqueWritten informed consent was obtained prior to the procedure. The patient was placed in a supine position. The left upper extremity was sterilely prepared and draped in the routine manner. All elements maximal sterile barrier technique were followed. Lidocaine 1% was used for local a nesthetic. Using real-time ultrasound guidance, a 21-gauge micropuncture needle was used to access the left brachial vein. A 0.018 inch guidewire was advanced through the needle centrally under fluoroscopy. The needle was removed and a micropuncture sheath system was then placed. Under ultrasound guidance, documentation of vessel patency, needle access with permanent recording, and reporting are performed followed by placement of a micropuncture sheath in the left brachial vein. Left upper venogram was performed through the micropuncture sheath. The micropuncture sheath was then removed and replaced with a 5 Georgian vascular sheath and a 5 Georgian Kumpe catheter was used to subselect the left brachiocephalic vein, SVC as well as the right brachiocephalic, subclavian, axillary and brachial veins andadditional venograms were performed from the above locations. The Kumpe catheter and sheath were removed and hemostasis was achieved with manual compression. The patient tolerated the procedure well. R adiation DoseKa,r = 741 mGy ComplicationsNone Specimens RemovedNone Estimated Blood LossLess than 10 mL Blood/Blood Products AdministeredNone Grafts/ImplantsNone Impression: 1. Left upper extremity venogram demonstrates a patent common brachial, axillary, subclavian, brachiocephalic veins and SVC. 2. Right upper extremity venogram demonstrates patent right brachiocephalic, subclavian, axillary and brachial veins. Extensive postoperative change in the right upper arm with numerous stents andprior grafts. 3. Central venous return is markedly sluggish in both upper extremities. [facility]-[id number] Interface, Radiology Results Incoming - 03/10/2021 1:41 PM CDT Performing RadiologistRohit Juan F MESSER AssistantsNone Anesthesia TypeLidocaine 1% was used for local anesthetic. Moderate Sedation: Under physician supervision, Versed and fentanyl were administered intravenously for moderate sedation. Pulse oximetry, heart rate, and blood pressure were continuously monitored by an independent trained observer present. The physician spent 49minutes of face to face sedation time with the patient.Pre Procedure DiagnosisPreprocedure evaluation for dialysis access. Post Procedure DiagnosisStatus post bilateral upper extremity venogramsProceduresRight upper extremity venogram TechniqueWritten informed consent was obtained prior to the procedure. The patient was placed in a supine position. The left upper extremity was sterilely prepared and draped in the routine manner. All elements maximal sterile barrier technique were followed. Lidocaine1% was used for local anesthetic. Using real-time ultrasound guidance, a 21-gauge micropuncture needle was used to access the left brachial vein. A 0.018 inch guidewire was advanced through the needle centrally under fluoroscopy. The needle was removed and a micropuncture sheath system was then placed. Under ultrasound guidance, documentation of vessel patency, needle access with permanent recording,and reporting are performed followed by placement of a micropuncture sheath in the left brachial vein. Left upper venogram was performed through the micropuncture sheath. The micropuncture sheath was then removed and replaced with a 5 Georgian vascular sheath and a 5 Georgian Kumpe catheter was used to subselect the left brachiocephalic vein, SVC as well as the right brachiocephalic, subclavian, axillaryand brachial veins and additional venograms were performed from the above locations.The Kumpe catheter and sheath were removed and hemostasis was achieved with manual compression. The patient toleratedthe procedure well. Radiation DoseKa,r = 741 mGy ComplicationsNone Specimens RemovedNone Estimated Blood LossLess than 10 mL Blood/Blood Products AdministeredNone Grafts/ImplantsNone Impression: 1. Left upper extremity venogram demonstrates a patent common brachial, axillary, subclavian, brachiocephalic veins and SVC. 2. Right upper extremity venogram demonstrates patent right brachiocephalic, subclavian, axillary and brachial veins. Extensive postoperative change in the right upper arm with numerous stents and prior grafts. 3. Central venous return is markedly sluggish in both upper extremities.[id number] [facility] Bilateral Upper Extremity [id number] 15:12:51Performing RadiologistRodeborah Ma Anesthesia TypeModerate sedation was administeredby the procedure nurse and monitored by the procedure physician for a total ibay-rf-[id number] sedation time of approximately 45 minutes. Lidocaine 1% was also used for local anesthetic. Pre Procedure DiagnosisEnd stage renal disease, arteriogram evaluation for access placement. Post Procedure DiagnosisStatus post arch aortogram and bilateral upper extremity arteriograms Procedure1. Arch aortogram 2. Bilateral upper extremity arteriograms 3. Right common femoral arteriogram TechniqueWritten informed consent was obtained prior to the procedure. The patient was placed in a supine position and the rightgroin was sterilely prepared and draped in the routine manner. Lidocaine 1% was used for local anesthetic. Using real-time ultrasound guidance, a 21-gauge micropuncture needle was used to access the rig ht common femoral artery in a retrograde fashion. A 0.018 inch guidewire was advanced centrally through the needle under fluoroscopy. The needle was removed, and a micropuncture sheath system was then placed. The inner dilator and guidewire were then removed, and a 0.035 inch J-wire was advanced through the micropuncture sheath and into the abdominal aorta under fluoroscopy. The micropuncture sheath was removed, and a 5-Georgian vascular sheath was then placed. Under ultrasound guidance, documentationof vessel patency, needle access with permanent recording, and reporting are performed followed by placement of a sheath in the right common femoral artery. A right common femoral arteriogram was then performed with injection of contrast through the 5-Georgian vascular sheath to evaluate the arterial access into the right common femoral artery. A 5-Georgian pigtail catheter was advanced successfully intothe ascending thoracic aorta. An arch aortogram was then performed with injection of contrast in the left anterior oblique projection. Exchange was then made for a 5-Georgian H1 catheter which was used to select the brachiocephalic trunk artery. Using a stiff 0.035 inch angled Glidewire, both the catheter and guidewire were advanced successfully into the right axillary artery. Right upper extremity arteriograms were then performed with injection of contrast. Using a 0.035 J-wire, the H1 catheter was then advanced into the mid right brachial artery. Additional right upper extremity arteriograms were then performed injection of contrast. The H1 catheter was then pulled back into the thoracic aortic arch. The catheter was then used to select the left subclavian artery. Using a stiff 0.035 inch angled Glidewire, the H1 catheter was advanced into the left axillary artery. Left upper extremity arteriograms were then performed with injection of contrast. Using a 0.035 inch J-wire, the H1 catheter was advanced into the mid left brachial artery. Additional left upper extremity arteriograms were then perfo rmed with injection of contrast. The multipurpose catheter was then removed from the 5-Georgian vascular sheath. The 5-Georgian vascular sheath was removed the right common femoral artery, and a Mynx closure device was used for hemostasis. The patient tolerated the procedure well. Radiation DoseKa,r = 453mGy ComplicationsNone Specimens RemovedNone Estimated Blood LossLess than 10 mL Blood/Blood Products AdministeredNone Grafts/ImplantsAs described in the above report Impression: 1. An arch aortogram demonstrates a normal-appearing thoracic aortic arch. There is no great vessel origin stenosis off the thoracic aorta. The brachiocephalic trunk, right subclavian, visualized left common carotid, and left subclavian arteries are widely patent without narrowing. 2. Right upper extremity arteriograms demonstrate no significant axillary or brachial artery stenosis. High takeoff of the ulnar artery. Radial, interosseous and ulnar arteries are patent to the wrist with minimal multifocal atherosclerosis of the ulnar artery at the mid and distal forearm.. Radial artery supplies the palmar arch. Commondigital arteries are faintly opacified. 3. Left upper extremity arteriograms demonstrate no significant axillary or brachial artery stenosis. High takeoff of the radial artery at the mid left upper arm. Radial artery is diminutive in caliber at the level of the proximal forearm and likely occludes at the mid forearm. Ulnar artery and interosseous arteries are patent. There is mild multifocal atherosclerosis throughout the ulnar artery which supplies the palmar arch. There is retrograde filling of the radial artery at the level of the wrist. 4. A right common femoral arteriogram demonstrates a normal-appearing right common femoral artery without stenosis or dissection. Access into the right common femoral was deemed appropriate for placement of a Mynx closure device, which was successfully deployed as described above. Interface, Radiology Results Incoming - 03/10/2021 10:15 AM CDTFormatting ofthis note might be different from the original.Performing RadiologistRohit Juan F DAIssistantsNontamara Anesthesia TypeModerate sedation was administered by the procedure nurse and monitored by the procedure physician for a total qutt-bp-gmcd sedation time of approximately 45 minutes. Lidocaine 1% was also used for local anesthetic. Pre Procedure DiagnosisEnd stage renal disease, arteriogram evaluation for access placement. Post Procedure DiagnosisStatus post arch aortogram and bilateral upper extremity arteriograms Procedure1. Arch aortogram 2. Bilateral upper extremity arteriograms 3. Right common femoral arteriogram TechniqueWritten informed consent was obtained prior to the procedure. The patient was placed in a supine position and the right groin was sterilely prepared and draped in the routine manner. Lidocaine 1% was used for local anesthetic. Using real-time ultrasound guidance, a 21-gauge micropuncture needle was used to access the right common femoral artery in a retrograde fashion. A 0.018 inch guidewire was advanced centrally through the needle under fluoroscopy. The needle was removed, and a micropuncture sheath system was then placed. The inner dilator and guidewire were then removed, and a 0.035 inch J- wire was advanced through the micropuncture sheath and into the abdominal aorta under fluoroscopy. The micropuncture sheath was removed, and a 5-Georgian vascular sheath was then placed.Under ultrasound guidance, documentation of vessel patency, needle access with permanent recording, and reporting are performed followed by placement of a sheath in the right common femoral artery. A right common femoral arteriogram was then performed with injection of contrast through the 5-Georgian vascular sheath to evaluate the arterial access into the right common femoral artery. A 5-Georgian pigtail catheter was advanced successfully into the ascending thoracic aorta. An arch aortogram was then performed with injection of contrast in the left anterior oblique projection. Exchange was then made for a 5-Georgian H1 catheter which was used to select the brachiocephalic trunk artery. Using a stiff 0.035 inch angled Glidewire, both the catheter and guidewire were advanced successfully into the right axillary artery. Right upper extremity arteriograms were then performed with injection of contrast. Using a 0.035 J-wire, the H1 catheter was then advanced into the mid right brachial artery. Additional right upper extremity arteriograms were then performed injection of contrast. The H1 catheter was then pulled back into the thoracic aortic arch. The catheter was then used to select the left subclavianartery. Using a stiff 0.035 inch angled Glidewire, the H1 catheter was advanced into the left axillary artery. Left upper extremity arteriograms were then performed with injection of contrast. Using a 0.035 inch J-wire, the H1 catheter was advanced into the mid left brachial artery. Additional left upper extremity arteriograms were then performed with injection of contrast. The multipurpose catheter was then removed from the 5-Georgian vascular sheath. The 5-Georgian vascular sheath was removed the right common femoral artery, and a Mynx closure device was used for hemostasis. The patient tolerated theprocedure well.Radiation DoseKa,r = 453 mGy ComplicationsNone Specimens RemovedNone Estimated Blood LossLess than 10 mL Blood/Blood Products AdministeredNone Grafts/ImplantsAs described in the above report Impression: 1. An arch aortogram demonstrates a normal-appearing thoracic aortic arch. There is no great vessel origin stenosis off the thoracic aorta. The brachiocephalic trunk, right subclavian, visualized left common carotid, and left subclavian arteries are widely patent without narrowing.2. Right upper extremity arteriograms demonstrate no significant axillary or brachial artery stenosis. High takeoff of the ulnar artery. Radial, interosseous and ulnar arteries are patent to the wrist with minimal multifocal atherosclerosis of the ulnar artery at the mid and distal forearm.. Radial artery supplies the palmar arch. Common digital arteries are faintly opacified.3. Left upper extremity arteriograms demonstrate no significant axillary or brachial artery stenosis. High takeoff of the radial artery at the mid left upper arm. Radial artery is diminutive in caliber at the level of the proximal forearm and likely occludes at the mid forearm. Ulnar artery and interosseous arteries are patent. There is mild multifocal atherosclerosis throughout the ulnar artery which supplies the palmar arch. There is retrograde filling of the radial artery at the level of the wrist.4. A right common femoral arteriogram demonstrates a normal-appearing right common femoral artery without stenosis or dissection.Access into the right common femoral was deemed appropriate for placement of a Mynx closure device, w hich was successfully deployed as described above.[facility] 2021-01-28 04:02:00 Test Item Value Reference Range Interpretation Comments Product name (test code Red Blood Cells -1, = 25) Leukored Unit number (test code = [id number]) Product code (test code [id number] = 3092) Dispense status (test Transfused code = 24) Blood expiration date (test code = 302) Blood type code (test code = 308) Blood type (test code = O POSITIVE 1314) Compatibility (test code Compatible = 6400) [facility] - Not an [id number] 03:35:12 Test Item Value Reference Range Interpretation Comments JOHN (test code = JOHN) Lab Interpretation (test code = Abnormal 05100-8) [facility] [place] [facility] 1 [id number] 22:38:08EXAMINATION: OR FL < 1 HOUR CLINICAL HISTORY: intraoperative IMPRESSION: Fluoroscopy was provided. No radiologist present. Please see procedure report for discussion of procedure, findings. [facility]-WPHYDPKH Interface, Radiology Results Incoming - 01/27/2021 5:41 PM CDTFormatting of this notemight be different from the original.EXAMINATION: OR FL < 1 HOURCLINICAL HISTORY: intraoperative IMPRESSION:Fluoroscopy was provided. No radiologist present. Please see procedure report for discussion of procedure, findings.[facility]-WPHYDPKMHereford [facility] Medical CenterYehstvkkFnkpvv5809-93-62 20:31:15Kelly Zuñiga MD 01/27/2021 3:31 PMA[address] Location: OR Performed by: MATERIAL WORKER/AAAnesthesiologist: Kelly Zuñiga MDResident/MATERIAL WORKER/AA: Jozef Frey CRNAAuthorized by: Kelly Zuñiga MD Difficult Airway: No Preoxygenated with 100% O2: Yes C-spine Precautions Maintained Throughout: Yes Mask Ventilation: Easy maskFinal Airway Type: Supraglottic airwayFinal LMA: I-GelLMA Size: 5Number of Attempts at Approach: 1MethDupont HospitalPatdexxeRURY-EmJ-4 (COVID-19) RNA [Presence] in Respiratory specimen by SILVIA with probe [id number] 22:48:14 Test Item Value Reference Range Interpretation Comments SARS-CoV-2 (COVID-19) RNA Not detected Not-Detected [Presence] in Respiratory specimen by SILVIA with probe detection (test code = 64804-5) Whether patient is employed in a healthcare setting (test code = 27543-7) Whether the patient has symptoms related to condition of interest (test code = 48268-6) Patient was hospitalized because of this condition (test code = 40951-4) Whether the patient was admitted to intensive care unit (ICU) for condition of interest (test code = 47462-0) Whether patient resides in a congregate care setting (test code = 03856-5) SARS-CoV-2 (COVID-19) RNA [Presence] in Respiratory specimen by SILVIA with probe [id number] 21:51:15 Test Item Value Reference Range Interpretation Comments SARS-CoV-2 (COVID-19) RNA Not detected Not-Detected [Presence] in Respiratory specimen by SILVIA with probe detection (test code = 41793-5) Whether patient is employed in a healthcare setting (test code = 15156-1) Whether the patient has symptoms related to condition of interest (test code = 42883-3) Patient was hospitalized because of this condition (test code = 15455-9) Whether the patient was admitted to intensive care unit (ICU) for condition of interest (test code = 89156-2) Whether patient resides in a congregate care setting (test code = 01848-6) [id number] 22:46:34Marisol Clinton CRNA 11/23/2020 4:47 PMAirway Date/Time: 11/23/2020 4:30 PM Location: OR Performed by: LINO/AAAnesthesiologist: Mike Og MDResident/LINO/AA: Marisol Clinton CRNAAuthorized by: Mike Og MD Urgency: ElectiveDifficult Airway: No Preoxygenated with 100% O2: Yes C-spine Precautions Maintained Throughout: Yes Mask Ventilation: Easy maskFinal Airway Type: Supraglottic airwayFinal LMA: I-GelLMA Size: 5Number of Attempts at Approach: 1MethDupont HospitalRknuvodoEGRQ-TyD-9 (COVID-19) RNA [Presence] in Respiratory specimen by SILVIA with probe [id number] 23:59:37 Test Item Value Reference Range Interpretation Comments SARS-CoV-2 (COVID-19) RNA Not detected Not-Detected [Presence] in Respiratory specimen by SILVIA with probe detection (test code = 29065-6) [id number] 20:26:58Murphy Carreno 11/02/2020 2:27 PMAirway Location: OR Performed by: MATERIAL WORKER/AAAnesthesiologist: Dorian Sesay MDResident/MATERIAL WORKER/AA: Murphy Carreno RAuthorized by: Lisa Sesay MD Urgency: ElectiveDifficult Airway: No Preoxygenated with 100% O2: Yes C-spine Precautions Maintained Throughout: Yes Mask Ventilation: Not attemptedFinal Airway Type: Supraglottic airwayFinal LMA: UniqueLMA Size: 5Number of Attempts at Approach: 1 Soft Tissue Intact, able to ventilate with no leak and minimal peak inspiratory pressuresSt. [facility] [place]ARS-CoV-[facility] ([facility]OVID-19) RNA [Presence] in Respiratory specimen by SILVIA with probe detection 2020-11-02 00:08:02 Test Item Value Reference Range Interpretation Comments SARS-CoV-2 (COVID-19) RNA Not detected Not-Detected [Presence] in Respiratory specimen by SILVIA with probe detection (test code = 17060-4) [id number] 18:55:41Marisol Clinton CRNA 10/19/2020 12:56 PMAirway Date/Time: 10/19/2020 12:35 PM Location: OR Performed by: MATERIAL WORKER/AAAnesthesiologist: Kenny Coppola, William/MATERIAL WORKER/AA: Marisol Clinton CRNAAuthorized by: Kenny Coppola MD Urgency: ElectiveDifficult Airway: No Preoxygenatedwith 100% O2: Yes C-spine Precautions Maintained Throughout: Yes Mask Ventilation: Easy maskFinalAirway Type: Supraglottic airwayFinal LMA: I-GelLMA Size: 5Number of Attempts at Approach: 1[facility] BtoypixuWPZT-UzK-1 (COVID-19) RNA [Presence] in Respiratory specimen by SILVIA with probe [id number] 01:14:03 Test Item Value Reference Range Interpretation Comments SARS-CoV-2 (COVID-19) RNA Not detected Not-Detected [Presence] in Respiratory specimen by SILVIA with probe detection (test code = 48629-9) Us duplex arterial lower [id number] 18:47:08 EXAM: Right lower extremity arterial Doppler HISTORY: Pain and swelling TECHNIQUE: Real-time as well as pulsed and color Doppler evaluation of right common femoral, femoral, popliteal, posterior tibial, anterior tibial, and dorsalis pedis arteries are evaluated. The examination includes a full duplexDoppler scan of the blood vessels (real-time P mode grayscale, Doppler spectral analysis, and Doppler color flow imaging). IMPRESSION: The right lower extremity arterial vasculature is of normal course, caliber, and contour without aneurysmal dilatation. Waveforms are triphasic throughout. PEAK SYSTOLIC VELOCITIES: RIGHT LEG: COMMON FEMORAL: 116.2cm/s FEMORAL:Proximal: 122.3 cm/sMid: 125.5 cm/sDistal: 132.2 cm/s POPLITEAL:Proximal: 99.8 cm/sMid: 77.7 cm/sDistal: 88.9 cm/s POSTERIOR TIBIAL:Proximal: 92.8 cm/sMid: 64.1 cm/sDistal: 100.8 cm/s ANTERIOR TIBIAL:Proximal: 104.5 cm/sMid: 46.2 cm/sDistal: 62.5 cm/s DORSALIS PEDIS: 83.7 cm/s [facility]-[id number] [facility] Results Incoming - 10/05/2020 12:50 PM CST EXAM: Right lower extremity arterial DopplerHISTORY: Pain and swellingTECHNIQUE: Real- time as well as pulsed and color Doppler evaluation ofright common femoral, femoral, popliteal, posterior tibial, anterior tibial, and dorsalis pedis arter ies are evaluated. The examination includes a full duplex Doppler scan of the blood vessels (real-time P mode grayscale, Doppler spectral analysis, and Doppler color flow imaging). IMPRESSION:The right lower extremity arterial vasculature is of normal course, caliber, and contour without aneurysmal di latation. Waveforms are triphasic throughout.PEAK SYSTOLIC VELOCITIES: RIGHT LEG: COMMON FEMORAL: 116.2cm/sFEMORAL:Proximal: 122.3 cm/sMid: 125.5 cm/sDistal: 132.2 cm/sPOPLITEAL:Proximal: 99.8 cm/sMid: 77.7 cm/sDistal: 88.9 cm/sPOSTERIOR TIBIAL:Proximal: 92.8 cm/sMid: 64.1 cm/sDistal: 100.8 cm/sANTERIOR TIBIAL:Proxima l: 104.5 cm/sMid: 46.2 cm/sDistal: 62.5 cm/sDORSALIS PEDIS: 83.7 cm/[facility]-[id number] HospitalUs duplex venous lower [id number] 18:46:30EXAMINATION: US DUPLEX VENOUS LOWER EXTREMITY RIGHT CLINICAL HISTORY: I82.411 Acute embolism and thrombosis of right femoral vein, Leg deep vein thrombosis (DVT) suspected COMPARISON: None. TECHNIQUE: Grayscale, color Doppler, and spectral waveform analysis of the right lower extremity deep venous system was performed. The common femoral, superficial femoral, proximal deep femoral, greater saphenous, and popliteal veins were evaluated. The calf veins were also evaluated. FINDINGS:The right common femoral, superficial femoral, and popliteal veins are compressible as is the limited evaluation of the left common femoral vein. They demonstrate normal venous waveforms and response to augmentation. There is flow in the visualized calf veins. There is no evidence of a popliteal or Lombardo's cyst. IMPRESSION: No evidence of DVT within the right lower extremity named vessels as described above. [facility]-[id number] Interface, Radiology Results 10/05/2020 12:49 PM CSTFormatting of this note migh t be different from the original.EXAMINATION: US DUPLEX VENOUS LOWER EXTREMITY RIGHTCLINICAL HISTORY: I82.411 Acute embolism and thrombosis of right femoral vein, Leg deep vein thrombosis (DVT) suspectedCOMPARISON: None.TECHNIQUE: Grayscale, color Doppler, and spectral waveform analysis of the right lower extremity deep venous system was performed. The common femoral, superficial femoral, proximal deep femoral, greater saphenous, and popliteal veins were evaluated. The calf veins were also evaluated.FINDINGS:The right common femoral, superficial femoral, and popliteal veins are compressible as is the limited evaluation of the left common femoral vein. They demonstrate normal venous waveforms and response to augmentation. There is flow in the visualized calf veins.There is no evidence of a popliteal or Lombardo's cyst.IMPRESSION:No evidence of DVT within the right lower extremity named vessels as described above. [facility]-[id number] [id number] 14:50:09Lauren Fung CRNA 10/05/2020 8:50 [address]MAir[address] Location: OR Performed by: development vice president Anesthesiologist: Mike Og MDResident/MATERIAL WORKER/AA: Lauren Fung CRNAAuthorized by: Mike Og MD Urgency: ElectiveDifficult Airway: No Preoxygenated with 100% O2: Yes C-spine Precautions Maintained Throughout: Yes Mask Ventilation: Not attemptedFinal Airway Type: Rosenberg praglottic airwayFinal LMA: I-GelLMA Size: 5Number of Attempts at Approach: 1 [facility] ([facility]-19) RNA [Presence] in Respiratory specimen by SILVIA with probe [id number] 09:48:49 Test Item Value Reference Range Interpretation Comments SARS-CoV-2 (COVID-19) RNA Not detected Not-Detected [Presence] in Respiratory specimen by SILVIA with probe detection (test code = 47778-4) ECG Pre/Post [id number] 01:10:17 Test Item Value Reference Range Interpretation Comments Ventricular rate (test code = 253) Atrial rate (test code = 255) NH interval (test code = 266) QRSD interval (test code = 260) QT interval (test code = 264) QTC interval (test code = 265) P axis 1 (test code = 267) QRS axis 1 (test code = 268) T wave axis (test code = 270) EKG impression (test code = 273) [facility] [id number] 21:33:47EXAMINATION: XR CHEST 2 VW CLINICAL HISTORY: Z01.818 Encounter for other preprocedural examination, Pre OP Testing COMPARISON: Most Recent Prior at [facility] IMPRESSION: 1. The heart and pulmonary vasculature are normal. There are no acute infiltrates or effusions. The lungs are clear. Osseous structuresintact. [id number] Interface, Radiology Results Incoming - 10/03/2020 3:36 PM CST EXAMINATION: XR CHEST 2 VWCLINICAL HISTORY: Z01.818 Encounter for other preprocedural examination, Pre OP TestingCOMPARISON: [facility]. The heart and pulmonary vasculature are normal. There are no acute infiltrates or effusions. The lungs are clear. Osseous structures intact.[id number] ANESTHESIA PERIPHERAL [id number] 11:51:24SaShiela javier MD 08/02/2020 11:53 AMPeripheral Block Patient location during procedure: holding areaStart time: 06/29/2020 8:50 AMEnd time: 06/29/2020 9:00 AM Procedure Indication: at surgeon's request Preanesthetic ChecklistCompleted: patient identified, pre-op evaluation, timeout performed, IV checked, risks and benefits discussed, monitors and equipment checked, anesthesia consent given,prep site dry prior to draping and maximum sterile barriers were used: cap, mask, sterile gown, sterile gloves, and large sterile sheet StaffingAnesthesiologist: Shiela Ovalles MD PrepPrep: chlorhexidine gluconate and isopropyl alcoholProcedures: sterile gloves, surgical mask, surgical hat, sterile technique and prep and sterile drape applied Peripheral Nerve BlockPatient position: supinePatient monitoring: EKG, HR, BP and UqG3Tqugigusxx: rightBlock type: supraclavicularInjection technique: single-shotultrasound guided - in plane, prescan was completed prior to procedure and needle tip was visualized throughout the entire procedureBlock Dose: ropivicaine and single- shotInfiltration strength: 0.5 %Dose: 30 mL NeedleNeedle Localization: US guided AssessmentPain scale pre-procedure: 0Pain scale post-procedure: 0LOC: Sedated with meaningful contactsupplemental oxygen used.no evidence of int ravascular injection and no heart rate changeno paresthesiapatient had no immediate complications and patient tolerated the procedure wellCH[facility] HospitalARS-[facility] ([facility]OVID-19) RNA [Presence] in Respiratory specimen by SILVIA with probe [id number] 18:30:46 Test Item Value Reference Range Interpretation Comments SARS-CoV-2 (COVID-19) RNA Not detected Not-Detected [Presence] in Respiratory specimen by SILVIA with probe detection (test code = 28040-3) [id number] 19:20:32Marisol Toledo 07/06/2020 2:55 PMAirway Date/Time: 07/06/2020 2:20 PMPerformed by: Marisol ToledooAuthorized by: Mike Og MD Location: ORUrgency: ElectiveDifficult Airway: No Anesthesiologist: Mike Og MDResident/MATERIAL WORKER/AA: Rodrigo ToledoaPerformed by: resident/MATERIAL WORKER/AAPreoxygenated with 100% O2: Yes C-spine Precautions Maintained [...] cmH2O. Ventilation adequate. No damage to oropharynx. VSS.Lutheran AvzesvjwEMED-SyE-0 (COVID-19) RNA [Presence] in Respiratory specimen by SILVIA with probe detection 2020-07-04 22:20:30 Test Item Value Reference Range Interpretation Comments SARS-CoV-2 (COVID-19) RNA Not detected Not-Detected [Presence] in Respiratory specimen by SILVIA with probe detection (test code = 27638-5) [id number] 11:09:00 Test Item Value Reference Range Interpretation Comments Potassium (test code = 5.4 meq/L 3.6-5.5 Speci men 2823-3) slightly hemolyzed JOHN (test code = JOHN) Fence Manufacture Supervisor ID - ADMIN Lab Interpretation Normal (test code = 44134-1) [facility] 11:09:00 Test Item Value Reference Range Interpretation Comments POTASSIUM (BEAKER) 5.4 meq/L 3.6-5.5 Specimen slightly (test code = 379) hemolyzed Fence Manufacture Supervisor ID - ADMINPOC-Glucose [id number] 10:48:00 Test Item Value Reference Range Interpretation Comments POC-Glucose Meter (test 93 mg/dL 70-110 : TE STED AT [facility] code = 1538) [address], [facility] [place] [address]: Fence Manufacture Supervisor/Techni oscar ID = [id number] for Melani Yañez cca Lab Interpretation (test Normal code = 97244-0) [facility]PO[facility]SE [id number] 10:48:00 Test Item Value Reference Range Interpretation Comments POC-GLUCOSE METER 93 mg/dL 70-110 : TESTED A T [facility] [address] (BEAKER) (test code = [address], 1538) [facility] [place] [address]: Fence Manufacture Supervisor/Techni oscar ID = [id number] for Fatou Walden UEM-PDPIZLC6169-97-07 00:00:00Ordered by an unspecified provider.[facility]-PCR (Asymptomatic ONLY)2020-06-25 00:02:00 Test Item Value Reference Range Interpretation Comments SARS-COV2/RT-PCR Negative Not Detected, (test code = Negative, See 76977-8) external report for linked test SARS-COV-2 [facility] PERFORMING LAB (test code = 45672-1) JOHN (test code = Negative result for [...] of the Act. Fact Sheet for Healthcare Providers:https://www.Tuan800/sites/default/f ernestine/product/documents/F act_Sheet_HC_Providers_L rpq_BQTH-XlK-8.pdf Fact Sheet for Healthcare Patients:https://www.DesRueda.com/sites/default/fi les/product/documents/Fa ct_Sheet_Patients_Lyra_S ARS-CoV-2.pdf Performing Laboratory:[facility] [place] [address] [facility]-COV2/RT-PCR ([facility])2020-06-25 00:02:00 Test Item Value Reference Range Interpretation Comments SARS-COV2/RT-PCR (test Negative Not Detected, Negative, code = 5762899) See external report for linked test SARS-COV-2 PERFORMING LAB [facility] (test code = 3651271) Negative result for this test determines that [...] individuals suspected of COVID-19 by their healthcare provider.This test [...] 564(g) of the Act.Fact Sheet for Healthcare Providers:https://www.Algorithmia/sites/default/files/product/documents/Fact_Shee e_TL_Pyovqdyxl_Cfnp_GJXP-WpH-6.pdfFact Sheet for Healthcare Patients:https://www.Algorithmia/sites/default/files/product/ documents/Kvqt_Mmrmd_Gjtxaqoj_Tuit_OVNF-AmC-7.pdfPerforming Laboratory:[address], [place] [address]UWV with platelet count + automated [id number] 14:04:00 Test Item Value Reference Range Interpretation Comments WBC (test code = 5.6 See_Comment [Automated 6690-2) message] The system which generated this result transmit geronimo reference range : 4.0 - 10.0 K/ L. The reference range was not u sed to interpret th is result as normal/abnormal . RBC (test code = 4.30 See_Comment [Automated 279-8) message] The system which generated this result transmit geronimo reference range : 4.20 - 5.80 M/ L. The reference range was not u sed to interpret th is result as normal/abnormal . MCHC (test code = 29.7 See_Comment L [Automate d 786-4) message] The system which generated this result transmit geronimo reference range : 32.0 - 36.0 GM/ DL. The reference range was not u sed to interpret th is result as normal/abnormal . Hematocrit (test code 40.1 % 36-50 = 4544-3) MCV (test code = 93.3 fL 82-99 787-2) MCH (test code = 27.7 pg 27-33 785-6) RDW (test code = 16.6 % 12-15 H 788-0) Platelets (test code 145 See_Comment L [Autom ated = 777-3) message] The system which generated this result transmit geronimo reference range : 150 - 430 K/CU MM. The reference range was not u sed to interpret th is result as normal/abnormal . MPV (test code = 9.3 fL 6-11.5 40135-6) nRBC (test code = 0 See_Comment [Automate d 413) message] The system which generated this result transmit geronimo reference range : 0 - 0 /100 WBC. T he reference range was not used to interpret this result as normal/abnormal . % Neutros (test code 69 % = 429) % Lymphs (test code = 18 % 430) % Monos (test code = 9 % 431) % Eos (test code = 2 % 432) % Baso (test code = 0 % 437) # Neutros (test code 3.86 See_Comment [Autom ated = 670) message] The system which generated this result transmit geronimo reference range : 1.80 - 8.00 K/ L. The reference range was not u sed to interpret th is result as normal/abnormal . # Lymphs (test code = 1.02 See_Comment L [Auto mated 414) message] The system which generated this result transmit geronimo reference range : 1.48 - 4.50 K/ L. The reference range was not u sed to interpret th is result as normal/abnormal . # Monos (test code = 0.52 See_Comment [Autom ated 415) message] The system which generated this result transmit geronimo reference range : 0.00 - 1.30 K/ L. The reference range was not u sed to interpret th is result as normal/abnormal . # Eos (test code = 0.13 See_Comment [Automat ed 416) message] The system which generated this result transmit geronimo reference range : 0.00 - 0.50 K/ L. The reference range was not u sed to interpret th is result as normal/abnormal . # Baso (test code = 0.02 See_Comment [Automa geronimo 417) message] The system which generated this result transmit geronimo reference range : 0.00 - 0.20 K/ L. The reference range was not u sed to interpret th is result as normal/abnormal . Immature 0 % 0-0 Granulocytes-Relative (test code = 2801) JOHN (test code = JOHN) Few Platelet clumps noted, count appears to be normal. Lab Interpretation Abnormal (test code = 65189-3) [facility] W/PLT COUNT & AUTO [id number] 14:04:00 Test Item Value Reference Range Interpretation [...] Scrn (test code = 890-4) NEGATIVE ECHO [facility] Metabolic [id number] 13:11:00 Test Item Value Reference Range Interpretation [...] (test code = 11.1 mg/dL 8.5-10.5 H 12545-0) EGFR (test code = 7 mL/min/1.73 [place] [address]-8) NOT ACCURATE CREATININE CLEARANCE IN PREDICTING GLOMERULAR FILTRATION RATE . ESTIMATED GFR I S NOT APPLICABLE FOR DIALYSIS PATIENTS. JOHN (test code = JOHN) Fence Manufacture Supervisor ID - ADMIN Lab Interpretation Abnormal (test code = 20446-7) [facility] METABOLIC [id number] 13:11:00 Test Item Value Reference Range Interpretation [...] S NOT APPLICABLE FOR DIALYSIS PATIEN TS. Fence Manufacture Supervisor ID - ADMINPT/nYPT6629-05-93 13:10:00 Test Item Value Reference Interpretation Comments Range Protime (test code = 12.4 See_Comment H [Autom ated 7032-2) message] The system which generated this result transmitted reference range : 9.3 - 12.0 sec. The reference range was not used to interpret this result as normal/abnormal . INR (test code = 1.15 See_Comment [Automated 4089-6) message] The system which generated this result transmitted reference range : <=5.90. The reference range was not used to interpret this result as normal/abnormal . PTT (test code = 27.7 See_Comment [Automated 44211-4) message] The system which generated this result transmitted reference range : 23.0 - 35.0 sec . The reference range was not used to interpret this result as normal/abnormal . JOHN (test code = RECOMMENDED JOHN) COUMADIN/WARFARIN INR THERAPY RANGESSTANDARD DOSE: 2.0 - 3.0 Includes: PROPHYLAXIS for venous thrombosis, systemic embolization; TREATMENT for venous thrombosis and/or pulmonary embolus.HIGH RISK: Target INR is 2.5-3.5 for patients with mechanical heart valves.Final Information (Auto Output)Final Information (Auto Output)Final Information (Auto Output) Lab Interpretation Abnormal (test code = 75700-5) [facility]/[id number] 13:10:00 Test Item Value Reference Range Interpretation [...] code [address], = 1538) [place] [address]: Fence Manufacture Supervisor/Techni oscar ID = [id number] for Makayla Cardenas HEPATITIS B SURFACE [id number] 11:33:00 Test Item Value Reference Range Interpretation Comments HEPATITIS B SURFACE ANTIBODY 59.2 mIU/mL <8.0 H (BEAKER) (test code = 647) Fence Manufacture Supervisor ID - ASIYA CPOCT-GLUCOSE [id number] 04:50:00 Test Item Value Reference Range Interpretation Comments POC-GLUCOSE METER 140 mg/dL 70-110 H : TESTED A T [facility] (BEAKER) (test code [address], = 1538) [place] [address]: Fence Manufacture Supervisor/Techni oscar ID = [id number] for Nanette Sweeney POCT-GLUCOSE [id number] 22:25:00 Test Item Value Reference Range Interpretation Comments POC-GLUCOSE METER 117 mg/dL 70-110 H : TESTED A T [facility] (BEAKER) (test code [address], = 1538) [place] [address]: Fence Manufacture Supervisor/Techni oscar ID = [id number] for Nanette Sweeney HEPATITIS B SURFACE [id number] 21:34:00 Test Item Value Reference Range Interpretation Comments HEPATITIS B SURFACE ANTIGEN (2) Nonreactive Nonreactive (BEAKER) (test code = 2585) Fence Manufacture Supervisor ID - JUSTINPOCT-GLUCOSE HEOPB3004-22-98 18:50:00 Test Item Value Reference Range Interpretation Comments POC-GLUCOSE METER 107 mg/dL 70-110 : TESTED A T [facility] (BEAKER) (test code [address], = 1538) [facility][NOTE 3] [address]: Fence Manufacture Supervisor/Techni oscar ID = [id number] for Millie Ojeda POCT-GLUCOSE [id number] 17:31:00 Test Item Value Reference Range Interpretation Comments POC-GLUCOSE METER 64 mg/dL 70-110 L : TESTED A T [facility] [address] (BEAKER) (test code = [address], 15[address]) [place] [address]: Fence Manufacture Supervisor/Techni oscar ID = [id number] for Millie Ojeda SARS-COV2/RT-PCR ([facility])2020-05-05 16:35:00 Test Item Value Reference Range Interpretation Comments SARS-COV2/RT-PCR (test Negative Not Detected, Negative, code = 0084183) See external report for linked test SARS-COV-2 PERFORMING LAB [facility] (test code = 8047522) Negative result for this test determines that [...] 564(g) of the Act.Fact Sheet for Healthcare Providers:https://www.Algorithmia/sites/default/files/product/documents/Fact_Shee o_DO_Ccquenyln_Tdvv_LSVG-NkU-1.pdfFact Sheet for Healthcare Patients:https://www.Algorithmia/sites/default/files/product/ documents/Lsqm_Fbqvy_Ugruencb_Keoc_DRPG-PcI-5.pdfPerforming Laboratory:[facility], [place] [address]LGXB-VVVWLSH METER 2020-05-05 13:07:00 Test Item Value Reference Range Interpretation Comments POC-GLUCOSE METER 116 mg/dL 70-110 H : TESTED A T [facility] (BEAKER) (test code [address], = 1538) [place] [address]: Fence Manufacture Supervisor/Techni oscar ID = [id number] for Savannah hernandezngoc Eloisainor POCT-GLUCOSE [id number] 12:24:00 Test Item Value Reference Range Interpretation Comments POC-GLUCOSE METER 55 mg/dL 70-110 L : TESTED A T [facility] [address] (BEAKER) (test code = [address], [address]) [place] [address]: Fence Manufacture Supervisor/Techni oscar ID = [id number] for Savannah hernandezne, Ayinor POCT-GLUCOSE [id number] 11:38:00 Test Item Value Reference Range Interpretation Comments POC-GLUCOSE METER 51 mg/dL 70-110 L : TESTED A T [facility] [address] (BEAKER) (test code = [address], 15[address]) [place] [address]: Fence Manufacture Supervisor/Techni oscar ID = [id number] for Millie Ojeda COMPREHENSIVE METABOLIC [id number] 06:51:00 Test Item Value Reference Range Interpretation [...] S NOT APPLICABLE FOR DIALYSIS PATIEN TS. Fence Manufacture Supervisor ID - [id number] VVMAG1496-48-50 06:23:00 Test Item Value Reference Range Interpretation Comments POC-GLUCOSE METER 104 mg/dL 70-110 : TESTED A T [facility] (BEAKER) (test code [address], = 1538) [facility][NOTE 3] [address]: Fence Manufacture Supervisor/Techni oscar ID = [id number] for Nael Hughes ph POCT-GLUCOSE [id number] 21:00:00 Test Item Value Reference Range Interpretation Comments POC-GLUCOSE METER 176 mg/dL 70-110 H : TESTED A T [facility] (BEAKER) (test code [address], = 1538) [facility][NOTE 3] [address]: Fence Manufacture Supervisor/Techni oscar ID = [id number] for Nael Hughes ph TROPONIN [id number] 17:22:00 Test Item Value Reference Range Interpretation [...] failure, acidosis, acute neurological disease, and persistent tachyarrhythmia.Fence Manufacture Supervisor ID - AGONZALEZLIPID PANEL 2020-05-04 17:17:00 Test Item Value Reference Range Interpretation Comments TRIGLYCERIDES (BEAKER) (test code = 76 mg/dL 540) CHOLESTEROL (BEAKER) (test code = 79 mg/dL 631) HDL CHOLESTEROL (Active StorageAKER) (test code 38 mg/dL = 976) LDL CHOLESTEROL CALCULATED (Active StorageAKER) 26 mg/dL (test code = 633) Triglyceride Reference Range: Low Risk <150 Borderline 150-199 High Risk 200-499 Very High Risk >=500Cholesterol Reference Range: Low Risk <200 Borderline 200-239 High Risk >240HDL Cholesterol Reference Range: Low Risk >=60 High Risk <40LDL Cholesterol Reference Range: Optimal <100 Near Optimal 100-129 Borderline 130-159 High 160-189 Very High >=190 Fence Manufacture Supervisor ID - AGONZALEZOperator ID - AGONZALEZOperator ID - AGONZALEZ HEPATIC FUNCTION [id number] 17:17:00 Test Item Value Reference Range Interpretation [...] (test code = 11 U/L 5-50 347) Fence Manufacture Supervisor ID - [id number] 17:15:00 Test Item Value Reference Range Interpretation Comments MAGNESIUM (BEAKER) (test code = 2.8 mg/dL 1.5-3.0 627) Fence Manufacture Supervisor ID - RAYOBASIC METABOLIC [id number] 17:13:00 Test Item Value Reference Range Interpretation [...] S NOT APPLICABLE FOR DIALYSIS PATIEN TS. Fence Manufacture Supervisor ID - [id number]-68 17:11:00 Test Item Value Reference Range Interpretation Comments PHOSPHORUS (BEAKER) (test code = 4.6 mg/dL 2.5-4.5 H 604) Fence Manufacture Supervisor ID - RAYOPROTHROMBIN TIME/[id number] 17:06:00 Test Item Value Reference Range Interpretation [...] Information (Auto Output)CBC W/PLT COUNT & AUTO [id number] 16:50:00 Test Item Value Reference Range Interpretation [...] 0-0 PERCENT (BEAKER) (test code = 2801) SARS-CoV-2 (COVID-19) RNA [Presence] in Respiratory specimen by SILVIA with probe [id number] 01:59:18 Test Item Value Reference Range Interpretation Comments SARS-CoV-2 (COVID-19) RNA Not detected Not-Detected [Presence] in Respiratory specimen by SILVIA with probe detection (test code = 66850-4) SARS-CoV-2 (COVID-19) RNA [Presence] in Respiratory specimen by SILVIA with probe [id number] 08:29:59 Test Item Value Reference Range Interpretation Comments SARS-CoV-2 (COVID-19) RNA Not detected Not-Detected [Presence] in Respiratory specimen by SILVIA with probe detection (test code = 27320-7) SARS coronavirus 2 RNA [Presence] in Respiratory specimen by SILVIA with probe [id number] 16:34:38 Test Item Value Reference Range Interpretation Comments SARS coronavirus 2 RNA Not detected Not-Detected [Presence] in Respiratory specimen by SILVIA with probe detection (test code = 26617-7) SARS coronavirus 2 RNA [Presence] in Respiratory specimen by SILVIA with probe [id number] 00:19:38 Test Item Value Reference Range Interpretation Comments SARS coronavirus 2 RNA Not detected Not-Detected [Presence] in Respiratory specimen by SILVIA with probe detection (test code = 58765-7) TARA CV ACCESS, [id number] 10:40:00FINAL REPORT Procedure title: Tunneled right internal [...] MDReport Verified Date/Time: 10/27/2018 10:40:38 Reading Location: [place] [address] Angio Body Reading Room ANAEROBI [id number] 10:36:00 Test Item Value Reference Range Interpretation Comments CULTURE ([facility]) (test No anaerobes isolated code = 1095) POCT-GLUCOSE [id number] 18:17:00 Test Item Value Reference Range Interpretation Comments POC-GLUCOSE METER 129 mg/dL 70-110 H TESTED AT [address] ([facility]) (test code [facility] [place] = 1538) [address] BASIC METABOLIC [id number] 14:45:00 Test Item Value Reference Range Interpretation [...] PATIEN TS. CBC W/PLT COUNT & AUTO [id number] 14:35:00 Test Item Value Reference Range Interpretation [...] L 0.00-0.20 (test code = 417) POCT-GLUCOSE [id number] 11:29:00 Test Item Value Reference Range Interpretation Comments POC-GLUCOSE METER 189 mg/dL 70-110 H TESTED AT [address] ([facility]) (test code [facility] [place] = 1538) [address] POCT-GLUCOSE [id number] 05:51:00 Test Item Value Reference Range Interpretation Comments POC-GLUCOSE METER 117 mg/dL 70-110 H TESTED AT [address] ([facility]) (test code [facility] [place] = 1538) [address] POCT-GLUCOSE [id number] 21:42:00 Test Item Value Reference Range Interpretation Comments POC-GLUCOSE METER 120 mg/dL 70-110 H TESTED AT [address] ([facility]) (test code [facility] [place] = 1538) [address] POCT-GLUCOSE [id number] 20:08:00 Test Item Value Reference Range Interpretation Comments POC-GLUCOSE METER 128 mg/dL 70-110 H TESTED AT [address] ([facility]) (test code [facility] [place] = 1538) [address] [id number] 17:01:00 Test Item Value Reference Range Interpretation Comments PHOSPHORUS (BEAKER) (test code = 6.9 mg/dL 2.5-4.5 H 604) POCT-GLUCOSE [id number] 12:06:00 Test Item Value Reference Range Interpretation Comments POC-GLUCOSE METER 122 mg/dL 70-110 H TESTED AT [address] ([facility]) (test code [facility] [place] = 1538) [address] TISSUE [id number] 09:54:00Surgical Pathology Report Case: [id number] Authorizing Provider: Lisa Greenberg MD Collected: 01/31/2018 1110 Ordering Location: [facility] Med Surg 5th Floor Received: 01/31/2018 1249 Pathologist: Sherri Zarate MD Specimen: Leg, Left Lower, NECROTIC TISSUE LEFT LOWER LEG SKIN AND SOFT TISSUE, LEFT LOWER LEG, EXCISION: - SKIN AND SUBCUTIS WITH NECROSIS, ACUTE AND CHRONIC INFLAMMATION, BACTERIAL COLONIZATION AND CALCIFICATION OF BLOOD VESSELS, CONSISTENT WITH CALCIPHYLAXIS (SEE COMMENT) Signing Pathologist Direct Phone Line: [phone] signed by Sherri Zarate MD on 02/03/2018 at 9:54 AMCalcification of small and medium sized blood vessels are identified along with extensive necrosis of tissue. 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 [address]Qfz givenLeg, left lower, necrotic tissue left lower legThe specimen is received in fixative and designated as "leg, left lower" and consists of skin and subcutaneous tissue (6.0 x 4.0 x 2.0 cm). The overlying skin is brown-patterson and smooth. No discrete lesions. The underlying soft tissue is soft and necrotic. Welder Apprentice Arc sectionsof the skin and soft tissue are submitted into A1 to A3. MG/pl Performed [facility], Department of Pathology, [address] [place] [address], EnncgjSe. [facility], Department of Pathology, [address] [place] [address], Tel . [facility], Department of Pathology, [address] [place] [address], QIZ W/PLT COUNT & AUTO [id number] 09:08:00 Test Item Value Reference Range Interpretation [...] code = 1+ few 961) BASIC METABOLIC [id number] 08:39:00 Test Item Value Reference Range Interpretation [...] APPLICABLE FOR DIALYSIS PATIEN TS. HEMOGLOBIN AND [id number] 08:25:00 Test Item Value Reference Range Interpretation Comments HEMOGLOBIN (BEAKER) (test code = 6.5 GM/DL 13.0-16.8 L 410) HEMATOCRIT (BEAKER) (test code = 19.0 % 40.0-50.0 L 411) POCT-GLUCOSE [id number] 21:42:00 Test Item Value Reference Range Interpretation Comments POC-GLUCOSE METER 121 mg/dL 70-110 H TESTED AT [address] [facility] (test code [address] [facility] [place] = 1538) [id number] POCT-GLUCOSE [id number] 16:40:00 Test Item Value Reference Range Interpretation Comments POC-GLUCOSE METER 134 mg/dL 70-110 H TESTED AT [address] ([facility] (test code [address] [facility] [place] = 1538) [id number] POCT-GLUCOSE [id number] 12:00:00 Test Item Value Reference Range Interpretation Comments POC-GLUCOSE METER 84 mg/dL 70-110 TESTED AT [address] ([facility]) (test code = [address] [facility][NOTE 3] 1538) [address] SURGICALLY OBTAINED CULTURE + GRAM [id number] 08:12:00 Test Item Value Reference Interpretation Comments Range CULTURE (BEAKER) METHICILLIN A 2+ Methicil antelmo (test code [...] (BEAKER) (test code = cocci in clusters 806273) CBC W/PLT COUNT & AUTO [id number] 06:19:00 Test Item Value Reference Range Interpretation [...] L 0.00-0.20 (test code = 417) POCT-GLUCOSE [id number] 06:01:00 Test Item Value Reference Range Interpretation Comments POC-GLUCOSE METER 122 mg/dL 70-110 H TESTED AT [address] ([facility]) (test code [address] [facility] [place] = 1538) [id number] POCT-GLUCOSE [id number] 21:23:00 Test Item Value Reference Range Interpretation Comments POC-GLUCOSE METER 178 mg/dL 70-110 H TESTED AT [address] ([facility]) (test code [address] [facility] [place] = 1538) [id number] POCT-GLUCOSE [id number] 16:29:00 Test Item Value Reference Range Interpretation Comments POC-GLUCOSE METER 165 mg/dL 70-110 H TESTED AT [address] ([facility] (test code [facility] [facility] [place] = 1538) [id number] POCT-GLUCOSE [id number] 11:59:00 Test Item Value Reference Range Interpretation Comments POC-GLUCOSE METER 131 mg/dL 70-110 H TESTED AT [address] ([facility]) (test code [address] [facility] [place] = 1538) [address] POCT-GLUCOSE [id number] 05:22:00 Test Item Value Reference Range Interpretation Comments POC-GLUCOSE METER 104 mg/dL 70-110 TESTED AT [facility] [address] (BEAKER) (test code [address] [facility] [place] = 1538) [address] POCT-GLUCOSE [id number] 22:48:00 Test Item Value Reference Range Interpretation Comments POC-GLUCOSE METER 122 mg/dL 70-110 H TESTED AT [facility] (test code [address] [facility] [place] = 1538) [id number] HEPATITIS B SURFACE [id number] 20:44:00 Test Item Value Reference Range Interpretation Comments HEPATITIS B SURFACE ANTIBODY 10.2 mIU/mL <8.0 H (BEAKER) (test code = 647) POCT-GLUCOSE [id number] 18:00:00 Test Item Value Reference Range Interpretation Comments POC-GLUCOSE METER 127 mg/dL 70-110 H TESTED AT [facility] (BEAKER) (test code [address] [facility] [place] = 1538) [address] BASIC METABOLIC [id number] 11:02:00 Test Item Value Reference Range Interpretation [...] PATIEN TS. CBC W/PLT COUNT & AUTO [id number] 10:36:00 Test Item Value Reference Range Interpretation [...] = 1+ few 966) HEPATITIS B SURFACE [id number] 07:50:00 Test Item Value Reference Range Interpretation Comments HEPATITIS B SURFACE ANTIGEN (2) Nonreactive Nonreactive (BEAKER) (test code = 2585) BASIC METABOLIC [id number] 07:45:00 Test Item Value Reference Range Interpretation [...] NOT APPLICABLE FOR DIALYSIS PATIEN TS. POCT-GLUCOSE [id number] 06:32:00 Test Item Value Reference Range Interpretation Comments POC-GLUCOSE METER 82 mg/dL 70-110 TESTED AT [facility] [address] (BEAKER) (test code = [address] [facility][NOTE 3] 1538) [id number] POCT-GLUCOSE [id number] 17:47:00 Test Item Value Reference Range Interpretation Comments POC-GLUCOSE METER 106 mg/dL 70-110 TESTED AT [facility] [address] (BEAKER) (test code [address] [facility][NOTE 3] = 1538) [id number] CBC W/PLT COUNT & AUTO [id number] 16:41:00 Test Item Value Reference Range Interpretation [...] code = 2+ moderate 963) BASIC METABOLIC [id number] 16:21:00 Test Item Value Reference Range Interpretation [...] NOT APPLICABLE FOR DIALYSIS PATIEN TS. PROTHROMBIN [id number] 16:17:00 Test Item Value Reference Range Interpretation [...]
[2021-05-20 14:24] LABS: Absolute Lymphocytes (CBC) 1.2 K/uL (0.7-4.9); Basophils % 0.5 % (0-1.3); Lymphocytes % 16.3 % (15.3-44.8); MPV 7.6 fL (7.6-11.3); RBC Red Blood Cell Count 4.32 M/uL (4.33-5.43)
[2021-05-20 14:27] LABS: Protime INR 1.91
[2021-05-20 14:54] LABS: ALT/SGPT 24 U/L (12-78); AST/SGOT 16 U/L (15-37); Albumin 3.3 g/dL (3.4-5.0); Alkaline Phosphatase 300 U/L (45-117); BUN Blood Urea Nitrogen 27 mg/dL (7-18); Bicarbonate 27 mmol/L (21-32); Bilirubin Direct 0.1 mg/dL (0-0.2); Bilirubin Total 0.3 mg/dL (0.2-1.0); Glucose Level 228 mg/dL (74-106); Magnesium 2.3 mg/dL (1.8-2.4); NT PRO-BNP 1958 pg/mL (<125); Protein, Total 8.9 g/dL (6.4-8.2); Sodium Level 135 mmol/L (136-145); Troponin (Emerg Dept Use Only) < 0.02 ng/mL (0.0-0.045)
--- NOTE | 2021-05-20 15:20 | RAD REPORT ---
EXAM DESCRIPTION: RAD - Chest Single View - 05/20/2021 3:05 pm CLINICAL HISTORY: COUGH Chest pain. COMPARISON: Chest Pa And Lat (2 Views) dated 05/19/2021; Chest Single View dated 09/20/2020; Chest Pa And Lat (2 Views) dated 05/31/2020; Chest Single View dated 10/22/2018 FINDINGS: Portable technique limits examination quality. Moderate bilateral pulmonary opacities are present likely representing viral infection. The heart is upper limit of normal in size. No displaced fractures.
--- NOTE | 2021-05-20 15:36 | ER ---
Nurse's Notes [facility] Name: Rodrigue Arreola Jr Age: 30 yrs Sex: Male : 1990 Arrival Date: 05/20/2021 Time: 13:02 Bed 2 Private MD: Diagnosis: Dyspnea;Systolic (congestive) heart failure;End stage renal disease-on T, , SAT;Obesity, unspecified;Type 1 diabetes mellitus with hyperglycemia;Hypokalemia Presentation: 05/20 13:18 Chief complaint: Patient states: had CXR done yesterday for dialysis clinic and this iw morning he got a call from Dr. Nolasco that he has pneumonia and to come to ER, denies cough or fever , states he feels fine, states they ordered a CXR because he was having heavy breathing . Pt just finished dialysis. Coronavirus screen: Client presents with at least one sign or symptom that may indicate coronavirus-19. Ebola Screen: Patient negative for fever greater than or equal to 101.5 degrees Fahrenheit, and additional compatible Ebola Virus Disease symptoms Patient denies exposure to infectious person. Patient denies travel to an Ebola-affected area in the 21 days before illness onset. No symptoms or risks identified at this time. Initial Sepsis Screen: Does the patient meet any 2 criteria? No. Patient's initial sepsis screen is negative. Does the patient have a suspected source of infection? No. Patient's initial sepsis screen is negative. Risk Assessment: Do you want to hurt yourself or someone else? Patient reports no desire to harm self or others. Onset of symptoms was May 19, 2021. 13:18 Method Of Arrival: Wheelchair iw 13:18 Acuity: DAVID 3 iw 13:29 Acuity: DAVID 2 iw Historical: - Allergies: 13:21 No Known Allergies; iw - Home Meds: 13:21 amlodipine oral [Active]; Clonazepam Oral [Active]; Keppra Oral [Active]; Lipitor Oral iw [Active]; losartan Oral [Active]; Metoprolol Tartrate Oral [Active]; Novolog Sub-Q [Active]; - PMHx: 13:21 CHF; CVA; Diabetes - IDDM; Dialysis; Saturday, , Saturday; ESRD; Hypertension; iw Hypothyroidism; Cerebrovascular accident; - Immunization history:: Client reports having NOT received the Covid vaccine. - Social history:: Smoking status: Patient denies any tobacco usage or history of. - Family history:: not pertinent. Screenin:05 Abuse screen: Denies threats or abuse. Denies injuries from another. Nutritional sv screening: No deficits noted. Tuberculosis screening: No symptoms or risk factors identified. Fall Risk None identified. Assessment: 14:05 General: Appears in no apparent distress. comfortable, obese, well developed, Behavior sv is calm, cooperative, appropriate for age. General: Denies fever, feeling ill, chills. Pain: Denies pain. Neuro: Level of Consciousness is awake, alert, obeys commands, Oriented to person, place, time, situation, Moves all extremities. Full function Gait is steady. Cardiovascular: Dialysis shunt: in the right arm and right leg. Respiratory: Airway is patent Respiratory effort is even, unlabored, Respiratory pattern is regular, symmetrical. Respiratory: Denies cough, shortness of breath. Derm: Skin is pink, warm \\T\\ dry. 15:20 Reassessment: Patient appears in no apparent distress at this time. No changes from sv previously documented assessment. Patient and/or family updated on plan of care and expected duration. Pain level reassessed. Patient is alert, oriented x 3, equal unlabored respirations, skin warm/dry/pink. 15:50 Reassessment: Pt asking questions regarding discharge, stated Dr Dumas told him he sv has pneumonia but if he is going to send him home on any antibiotics. Informed Dr Dumas, he stated he would speak with him. 17:05 Reassessment: Patient appears in no apparent distress at this time. Patient and/or sv family updated on plan of care and expected duration. Pain level reassessed. Patient is alert, oriented x 3, equal unlabored respirations, skin warm/dry/pink. 17:31 Reassessment: Ultrasound at the bedside. sv 18:22 Reassessment: Patient appears in no apparent distress at this time. No changes from sv previously documented assessment. Patient and/or family updated on plan of care and expected duration. Pain level reassessed. Patient is alert, oriented x 3, equal unlabored respirations, skin warm/dry/pink. Vital Signs: 13:18 BP 82 / 45; Pulse 100; Resp 20; Temp 97.9; Pulse Ox 100% on R/A; Weight 161.9 kg; iw Height 6 ft. 4 in. (193.04 cm); 14:12 BP 93 / 36; Pulse 101 MON; Resp 20; Pulse Ox 97% on R/A; sv 15:57 BP 92 / 74; Pulse 102; Resp 16; Pulse Ox 99% ; sv 17:00 BP 98 / 56; Pulse 98; Resp 16; Pulse Ox 100% ; sv 18:43 Pulse 95; Resp 20; Pulse Ox 97% on R/A; sv 13:18 Body Mass Index 43.45 (161.90 kg, 193.04 cm) iw 14:12 Sinus tachycardia sv ED Course: 13:02 Patient arrived in ED. ds1 13:21 Triage completed. iw 13:22 Arm band placed on. iw 13:31 Loretta Lomas, RN is Primary Nurse. sv 13:44 Shaheen Dumas MD is Attending Physician. ana 14:05 Patient has correct armband on for positive identification. Bed in low position. Call sv light in reach. product expert on. Pulse ox on. NIBP on. Door closed. Head of bed elevated. 14:05 Inserted saline lock: 20 gauge in left antecubital area, using aseptic technique. Blood sv collected. Flushed left antecubital with 5 ml normal saline. 14:48 X-ray(s) taken. sv 15:03 XRAY Chest (1 view) Sent. sv 15:05 XRAY Chest (1 view) In Process Unspecified. EDMS 15:16 ED physician to see patient. sv 15:35 Homa Nolasco MD is Referral Physician. ana 15:35 Gt Dowd MD is Referral Physician. ana 16:45 Davide Duron MD is Hospitalizing Provider. ana 16:48 COVID-19 : Document "Date of Symptom Onset" if Symptomatic. Sent. sv 18:10 US Extremity Venous W Compression Chavo In Process Unspecified. EDMS 19:22 Primary Nurse role handed off by Loretta Lomas, FRITZ sv 05/21 08:05 Loretta Lomas, FRITZ is Primary Nurse. sv Administered Medications: 05/20 17:05 Drug: Lovenox (enoxaparin) 100 mg Route: Sub-Q; Site: left lower abdomen; sv 18:00 Follow up: Response: No adverse reaction sv 17:05 Drug: Coumadin (warfarin) 10 mg Route: PO; sv 18:00 Follow up: Response: No adverse reaction sv 17:05 Drug: Pepcid (famotidine) 20 mg Route: IVP; Site: left antecubital; sv 18:00 Follow up: Response: No adverse reaction sv Outcome: 15:35 Discharge ordered by . ana 16:50 Decision to Hospitalize by Provider. [facility] 05/21 11:11 Patient left the ED. hb Signatures: Dispatcher [employer] Loretta Perez RN RN sv Anderson, Corey, MD MD cha Sanford, Demi ds1 Chandni Cavazos RN RN Acacia Bains RN RN hb Corrections: (The following items were deleted from the chart) 05/20 13:22 13:18 Chief complaint: Patient states: had CXR done yesterday for dialysis clinic and iw this morning he got a call from Dr. Nolasco that he has pneumonia and to come to ER, denies cough or fever , states he feels fine, states they ordered a CXR because he was having heavy breathing iw 13:22 13:18 Pulse 100bpm; Resp 20bpm; Pulse Ox 100% RA; Temp 97.9F; 161.9 kg; Height 6 ft. 4 iw in.; BMI: 43.4; iw
--- NOTE | 2021-05-20 15:36 | EDPHYS ---
Physician Documentation [facility] Name: Rodrigue Arreola Jr Age: 30 yrs Sex: Male : 1990 Arrival Date: 05/20/2021 Time: 13:02 Bed 2 Private MD: ED Physician Shaheen Dumas HPI: 05/20 15:20 This 30 yrs old Black Male presents to ER via Wheelchair with complaints of Abnormal ana chest xray. 15:20 sent for abnormal chest xray. Onset: The symptoms/episode began/occurred 1 day(s) ago. ana Severity of symptoms: At their worst the symptoms were mild in the emergency department the symptoms are unchanged. The patient has not experienced similar symptoms in the past. Historical: - Allergies: 13:21 No Known Allergies; iw - Home Meds: 13:21 amlodipine oral [Active]; Clonazepam Oral [Active]; Keppra Oral [Active]; Lipitor Oral iw [Active]; losartan Oral [Active]; Metoprolol Tartrate Oral [Active]; Novolog Sub-Q [Active]; - PMHx: 13:21 CHF; CVA; Diabetes - IDDM; Dialysis; Saturday, , Saturday; ESRD; Hypertension; iw Hypothyroidism; Cerebrovascular accident; - Immunization history:: Client reports having NOT received the Covid vaccine. - Social history:: Smoking status: Patient denies any tobacco usage or history of. - Family history:: not pertinent. ROS: 15:20 Constitutional: Negative for fever, chills, and weight loss, Eyes: Negative for injury, ana pain, redness, and discharge, ENT: Negative for injury, pain, and discharge, Neck: Negative for injury, pain, and swelling, Cardiovascular: Negative for chest pain, palpitations, and edema, Abdomen/GI: Negative for abdominal pain, nausea, vomiting, diarrhea, and constipation, Back: Negative for injury and pain, : Negative for injury, bleeding, discharge, and swelling, MS/Extremity: Negative for injury and deformity, Skin: Negative for injury, rash, and discoloration, Neuro: Negative for headache, weakness, numbness, tingling, and seizure, Psych: Negative for depression, anxiety, suicide ideation, homicidal ideation, and hallucinations, Allergy/Immunology: Negative for hives, rash, and allergies, Endocrine: Negative for neck swelling, polydipsia, polyuria, polyphagia, and marked weight changes, Hematologic/Lymphatic: Negative for swollen nodes, abnormal bleeding, and unusual bruising. 15:20 Respiratory: Positive for cough, shortness of breath, at rest. Exam: 15:20 Constitutional: This is a well developed, well nourished patient who is awake, alert, ana and in no acute distress. Head/Face: Normocephalic, atraumatic. Eyes: Pupils equal round and reactive to light, extra-ocular motions intact. Lids and lashes normal. Conjunctiva and sclera are non-icteric and not injected. Cornea within normal limits. Periorbital areas with no swelling, redness, or edema. ENT: Nares patent. No nasal discharge, no septal abnormalities noted. Tympanic membranes are normal and external auditory canals are clear. Oropharynx with no redness, swelling, or masses, exudates, or evidence of obstruction, uvula midline. Mucous membranes moist. Neck: Trachea midline, no thyromegaly or masses palpated, and no cervical lymphadenopathy. Supple, full range of motion without nuchal rigidity, or vertebral point tenderness. No Meningismus. Chest/axilla: Normal chest wall appearance and motion. Nontender with no deformity. No lesions are appreciated. Cardiovascular: Regular rate and rhythm with a normal S1 and S2. No gallops, murmurs, or rubs. Normal PMI, no JVD. No pulse deficits. Respiratory: Lungs have equal breath sounds bilaterally, clear to auscultation and percussion. No rales, rhonchi or wheezes noted. No increased work of breathing, no retractions or nasal flaring. Abdomen/GI: Soft, non-tender, with normal bowel sounds. No distension or tympany. No guarding or rebound. No evidence of tenderness throughout. Back: No spinal tenderness. No costovertebral tenderness. Full range of motion. Male : Normal genitalia with no discharge or lesions. Skin: Warm, dry with normal turgor. Normal color with no rashes, no lesions, and no evidence of cellulitis. MS/ Extremity: Pulses equal, no cyanosis. Neurovascular intact. Full, normal range of motion. Neuro: Awake and alert, GCS 15, oriented to person, place, time, and situation. Cranial nerves II-XII grossly intact. Motor strength 5/5 in all extremities. Sensory grossly intact. Cerebellar exam normal. Normal gait. Psych: Awake, alert, with orientation to person, place and time. Behavior, mood, and affect are within normal limits. 15:36 ECG was reviewed by the Attending Physician. ana 15:38 Cardiovascular: Rate: normal, Rhythm: regular, Pulses: Pulses are 4+ in bilateral ana radial, brachial, femoral, popliteal, posterior tibial and and dorsalis pedis arteries.. Heart sounds: normal, normal S1and S2, no S3 or S4, no murmur, no rub, no gallop, Edema: is not appreciated, JVD: is not appreciated. 15:38 Musculoskeletal/extremity: DVT Exam: No signs of deep vein thrombosis. no pain, no swelling, no tenderness, negative Homans' sign noted on exam, no appreciated bluish discoloration, no erythema, no increased warmth. Vital Signs: 13:18 BP 82 / 45; Pulse 100; Resp 20; Temp 97.9; Pulse Ox 100% on R/A; Weight 161.9 kg; iw Height 6 ft. 4 in. (193.04 cm); 14:12 BP 93 / 36; Pulse 101 MON; Resp 20; Pulse Ox 97% on R/A; sv 15:57 BP 92 / 74; Pulse 102; Resp 16; Pulse Ox 99% ; sv 17:00 BP 98 / 56; Pulse 98; Resp 16; Pulse Ox 100% ; sv 18:43 Pulse 95; Resp 20; Pulse Ox 97% on R/A; sv 13:18 Body Mass Index 43.45 (161.90 kg, 193.04 cm) iw 14:12 Sinus tachycardia sv MDM: 13:43 Patient medically screened. ana 13:44 Patient medically screened. ana 15:22 Data reviewed: vital signs, nurses notes, lab test result(s), CBC, electrolytes, [facility] hepatic panel, EKG, radiologic studies. Data interpreted: security monitor: rate is 101 beats/min, rhythm is regular. Test interpretation: by ED physician or midlevel provider: ECG, plain radiologic studies. Counseling: I had a detailed discussion with the patient and/or guardian regarding: the historical points, exam findings, and any diagnostic results supporting the discharge/admit diagnosis, lab results, radiology results, the need for outpatient follow up, for definitive care, a family practitioner, an clinical research director. 05/20 13:44 Order name: Basic Metabolic Panel; Complete Time: 15:18 [facility] 05/20 13:44 Order name: CBC with Diff [facility] 05/20 13:44 Order name: LFT's; Complete Time: 15:18 [facility] 05/20 13:44 Order name: Magnesium; Complete Time: 15:18 [facility] 05/20 13:44 Order name: NT PRO-BNP; Complete Time: 15:18 [facility] 05/20 13:44 Order name: PT-INR; Complete Time: 15:18 [facility] 05/20 13:44 Order name: Troponin (emerg Dept Use Only); Complete Time: 15:18 [facility] 05/20 15:27 Order name: COVID-19 : Document "Date of Symptom Onset" if Symptomatic. [facility] 05/20 17:55 Order name: SARS-COV-2 RT PCR EDMS 05/20 18:47 Order name: Hemoglobin A1c EDMS 05/20 18:47 Order name: Lipid Profile EDMS 05/20 18:47 Order name: Protime (+INR) EDMS 05/20 18:47 Order name: Protime (+INR) EDMS 05/20 13:44 Order name: XRAY Chest (1 view); Complete Time: 15:25 [facility] 05/20 16:45 Order name: US Extremity Venous W Compression Chavo [facility] 05/20 18:47 Order name: Vancomycin Level Trough EDMS 05/20 18:47 Order name: Vancomycin Peak EDMS 05/20 18:47 Order name: CBC with Automated Diff EDMS 05/20 18:47 Order name: CBC with Automated Diff EDMS 05/20 18:47 Order name: CBC with Automated Diff EDMS 05/20 18:47 Order name: Comprehensive Metabolic Panel EDMS 05/20 18:47 Order name: Comprehensive Metabolic Panel EDMS 05/20 18:47 Order name: Comprehensive Metabolic Panel EDMS 05/20 18:47 Order name: Comprehensive Metabolic Panel EDMS 05/20 18:47 Order name: CBC with Automated Diff EDMS 05/20 20:12 Order name: CBC Smear Scan EDMS 05/21 08:06 Order name: Glucose, Ancillary Testing EDMS 05/20 13:44 Order name: EKG; Complete Time: 13:45 [facility] 05/20 13:44 Order name: Cardiac monitoring; Complete Time: 14:12 [facility] 05/20 13:44 Order name: EKG - Nurse/Tech; Complete Time: 14:12 [facility] 05/20 13:44 Order name: IV Saline Lock; Complete Time: 14:12 [facility] 05/20 13:44 Order name: Labs collected and sent; Complete Time: 14:12 [facility] 05/20 13:44 Order name: O2 Per Protocol; Complete Time: 14:12 [facility] 05/20 13:44 Order name: O2 Sat Monitoring; Complete Time: 14:12 [facility] 05/20 18:47 Order name: CONS Physician Consult EDMS EC:36 Rate is 67 beats/min. Rhythm is regular. QRS [place] is Normal. AR interval is normal. QRS ana interval is normal. QT interval is prolonged at 476 msec. No Q waves. T waves are Normal. No ST changes noted. Clinical impression: NSR w/ Non-specific ST/T Changes and No evidence of ischemia. Interpreted by me. Reviewed by me. Administered Medications: 17:05 Drug: Lovenox (enoxaparin) 100 mg Route: Sub-Q; Site: left lower abdomen; sv 18:00 Follow up: Response: No adverse reaction sv 17:05 Drug: Coumadin (warfarin) 10 mg Route: PO; sv 18:00 Follow up: Response: No adverse reaction sv 17:05 Drug: Pepcid (famotidine) 20 mg Route: IVP; Site: left antecubital; sv 18:00 Follow up: Response: No adverse reaction sv Disposition Summary: 05/20/21 16:50 Hospitalization Ordered Hospitalization Status: Observation naa Provider: Davide Duron ana Condition: Stable(05/20/21 16:50) ana Problem: new(05/20/21 16:50) ana Symptoms: have improved(05/20/21 16:50) ana Bed/Room Type: Standard ana Location: Telemetry/MedSurg (observation)(05/21/21 09:25) dw Room Assignment: 217(05/21/21 09:25) dw Diagnosis - Dyspnea ana - Systolic (congestive) heart failure ana - End stage renal disease - on T, TH, SAT(05/20/21 16:50) ana - Obesity, unspecified(05/20/21 16:50) ana - Type 1 diabetes mellitus with hyperglycemia(05/20/21 16:50) ana - Hypokalemia(05/20/21 16:50) ana Forms: - Medication Reconciliation Form ana - SBAR form ana Signatures: Dispatcher [employer] EDMS Loretta Lomas, RN Mabel Woodward RN RN Annalisa Wood, RN RN Shaheen Wade MD MD cha Williams, Irene, RN RN iw Corrections: (The following items were deleted from the chart) 16:31 15:28 [place] Wo Con+CT.RAD.BRZ ordered. EDMS EDMS 16:42 15:28 CORONAVIRUS ordered. EDMS EDMS 16:45 15:35 Home ana ana 16:45 15:35 new ana ana 16:45 15:35 have improved ana ana 16:45 15:35 Stable ana ana 16:45 15:35 End stage renal disease - on HD M, W, F ana ana 16:45 15:35 Diastolic (congestive) heart failure ana ana 16:45 15:35 Obesity, unspecified ana ana 16:45 15:35 Hypokalemia ana ana 16:45 15:36 Type 1 diabetes mellitus with hyperglycemia ana ana 17:20 16:45 Chest For PE Angio+CT.RAD.BRZ ordered. EDMS EDMS 20:56 16:50 Telemetry/MedSurg (observation) ana 20:56 16:50 ana 05/21 09:25 05/20 20:56 [facility] ER HOLD [facility] 05/21 09:25 05/20 20:56 ERHOLD- [facility]
[2021-05-20] MEDS ORDERED: FAMOTIDINE 20 MG/2 ML VIAL IV ONE (17:18)
[2021-05-20] MEDS ORDERED: ENOXAPARIN 100 MG/ML SYR SQ ONE (17:18)
[2021-05-20] MEDS ORDERED: WARFARIN SODIUM 5 MG TAB ONE (17:18)
--- NOTE | 2021-05-20 18:20 | P.HP ---
Certification for Inpatient Patient admitted to: Inpatient With expected LOS: >2 Midnights Patient will require the following post-hospital care: None Practitioner: I am a practitioner with admitting privileges, knowledge of patient current condition, hospital course, and medical plan of care. Services: Services provided to patient in accordance with Admission requirements found in Title 42 Section 412.3 of the Code of Federal Regulations Patient History Date of Service: 05/20/21 Primary Care Provider: Cristi Mckenna Reason for admission: pneumonia History of Present Illness: Patient is a pleasant gentleman. He has a history of esrd, hypercoagulable state with a history of more than 2 blood clots. He seems to have been diagnoised with Protein C deficency. He has failed anticoagulation with eliquis and xarelto and is on Coumadin. The patient had a chest xray as an out patient and was found to have a pneumonia and was sent to the ER. He denies shortness of breath. However I have been speaking with Dr. Sparrow. He has been getting short of breath. The patient has been subtherapeutic on 10mg of coumadin. She was concerned about a PE. The patient has been seen by cardiology as well. His recent shortness of breath has not been due to cardiac reasons. he has a curb-65 score of 2. Allergies No Known Allergies Allergy (Verified 11/26/17 19:31) Home Medications: Amlodipine Besylate 1 tab PO DAILY 10/21/18 Atorvastatin Calcium [Lipitor] 40 mg PO BEDTIME 10/21/18 Cinacalcet HCl [Sensipar*] 1 tab PO DAILY 10/21/18 Hydralazine [Apresoline*] 1 tab PO PRN 10/21/18 Insulin Glargine,Hum.rec.anlog [Lantus Solostar] 10 unit SQ DAILY 10/21/18 Losartan Potassium 1 tab PO DAILY 10/21/18 Metoprolol Succinate 50 mg PO DAILY 10/21/18 Mirtazapine [Remeron*] 1 tab PO DAILY 10/21/18 Sevelamer Carbonate [Renvela] 1 tab PO TIDWM 10/21/18 Sucroferric Oxyhydroxide [Velphoro] 1 tab PO DAILY 10/21/18 clonazePAM [Clonazepam] 1 tab PO DAILY 10/21/18 - Past Medical/Surgical History Diabetic: Yes -: CHF, systolic dysfunction-30% -: Malignant hypertension -: Diabetes mellitus type 2 -: Obstructive sleep apnea -: Chronic lymphedema -: Chronic renal disease -: Anemia of chronic disease -: cholecystectomy -: Left lower leg Debriedment -: HD catheter placement Psychosocial/ Personal History: The patient is single. He has a partner. He has 3 children. He does not work - Family History Father -: Heart disease, Hypertension, Diabetes, Stroke, Kidney disease - Social History Alcohol use: No CD- Drugs: No Caffeine use: No Review of Systems 10-point ROS is otherwise unremarkable Respiratory: Shortness of Breath Physical Examination - Physical Exam General: Alert, In no apparent distress HEENT: Atraumatic, PERRLA, Mucous membr. moist/pink, EOMI, Sclerae nonicteric Neck: Supple, 2+ carotid pulse no bruit, No LAD, Without JVD or thyroid abnormality Respiratory: Normal air movement, Crackles/rales Cardiovascular: Regular rate/rhythm, Normal S1 S2 Gastrointestinal: Normal bowel sounds, No tenderness Musculoskeletal: No tenderness Integumentary: No rashes Neurological: Normal gait, Normal speech, Normal strength at 5/5 x4 extr, Normal tone, Normal affect Lymphatics: No axilla or inguinal lymphadenopathy - Studies Laboratory Data (last 24 hrs) 05/20/21 14:05: PT 22.1 H, INR 1.91 05/20/21 14:05: WBC 7.40, Hgb 12.0 L, Hct 39.0 L, Plt Count 196 05/20/21 14:05: Sodium 135 L, Potassium 3.0 L, BUN 27 H, Creatinine 9.03 H*, Glucose 228 H, Magnesium 2.3 D, Total Bilirubin 0.3, AST 16, ALT 24, Alkaline Phosphatase 300 H Assessment and Plan - Problems (Diagnosis) (1) Pneumonia Current Visit: Yes Status: Acute Plan: Await blood cultures. Will start him on Vancomycin and levaquin. Per currently guidelines we can d/c if afebrile for 48hrs. He has a curb 65 score of 2. which translates to 3% 30day mortality. Recommendation is for inpatient treatment. (His initial sbp was 82/42 with a bun of 27) Start levalbuterol and antibiotic as stated above. Qualifiers: Pneumonia type: due to unspecified organism Laterality: bilateral Lung location: lower lobe of lung Qualified Code(s): J18.9 - Pneumonia, unspecified organism (2) Hypercoagulable state Current Visit: Yes Status: Chronic Plan: He is getting a doppler of his legs. States he has had a blood clot in his neck and one in his arm. He also has been know to have clots in his graft. This is why he is on coumadin. We can order imaging. However per guidelines a patient with a documented hypercoagulable state and 2 clotting episodes will need live long anticoagulation. Will increase his coumadin to 12 mg and bridge the patient with lovenox 100mg sq qday. (3) Congestive heart failure Onset Date: 08/10/15 Current Visit: No Status: Acute Plan: Patient is not fluid overloaded denies chg. He follows up with Dr. Mendez. He denies any sleep apnea as well. However the patient is very tired during the visit. We will keep an overnight pulse oximeter on the patient and see if he has any hypoxic events. We really should get a full outpatient sleep study. (4) ESRD (end stage renal disease) on dialysis Onset Date: 10/22/18 Current Visit: No Status: Chronic Plan: dialysis as per Dr. Seals (5) Diabetes mellitus Onset Date: 11/27/17 Current Visit: No Status: Chronic Plan: well controlled will check an a1c and continue home medications. 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 Diabetes mellitus complication status: with kidney complications Diabetes mellitus complication detail: with chronic kidney disease Chronic kidney disease stage: stage 5, not on chronic dialysis Qualified Code(s): E11.22 - Type 2 diabetes mellitus with diabetic chronic kidney disease; N18.5 - Chronic kidney disease, stage 5; N18.5 - Chronic kidney disease, stage 5; N18.5 - Chronic kidney disease, stage 5; N18.5 - Chronic kidney disease, stage 5; Z79.4 - prison (current) use of insulin; Z79.4 - superintendent container terminal (current) use of insulin; Z79.4 - prison (current) use of insulin; Z79.4 - prison (current) use of insulin Discharge Plan: Home Plan to discharge in: 72 Hours - Advance Directives Does patient have a Living Will: No Does patient have a Durable POA for Healthcare: No - Code Status/Comfort Care Code Status Assessed: No Code Status: Full Code Physician Review: Patient Assessed, Agree with Above Assessment and Plan Critical Care: No Time Spent Managing Pts Care (In Minutes): 70
[2021-05-20] MEDS ORDERED: GLUCAGON 1 MG/VIAL IM PRN (18:44)
[2021-05-20] MEDS ORDERED: D50W 25 GM/50 ML SYRINGE IV PRN (18:44)
[2021-05-20] MEDS ORDERED: HYDRALAZINE HCL 25 MG TABLET PO SCH (19:00)
[2021-05-20] MEDS ORDERED: Levofloxacin500mg IV 500 MG/100 ML BAG IV SCH (19:00)
[2021-05-20] MEDS: VANCOMYCIN 1.25 GM in NA CHLORIDE 0.9% 250 ML IVPB SCH (19:00)
--- NOTE | 2021-05-20 19:08 | RAD REPORT ---
EXAM DESCRIPTION: US - Extrem Venous W Compress Chavo - 05/20/2021 6:10 pm CLINICAL HISTORY: PAIN Bilateral leg edema and swelling. COMPARISON: <Comparisons> TECHNIQUE: Real-time sonographic interrogation of the left and right lower extremity deep venous sys tems was performed. FINDINGS: Normal compressibility, flow augmentation, phasic flow and spontaneous flow is identified in both the left and right lower extremity deep venous systems. IMPRESSION: No sonographic evidence of left or right lower extremity deep venous thrombosis.
[2021-05-20 20:12] LABS: Anisocytosis 1+; Blood Morphology Comment NOTED (NOT SEEN); Platelet Estimate ADEQ; White Blood Cell Scan OK (OK)
[2021-05-20] MEDS: ATORVASTATIN 20 MG TAB PO SCH (21:00)
[2021-05-20] MEDS: INSULIN -REGULAR HUMAN 50 UNIT/0.5 ML ML SQ SCH (21:00)
[2021-05-20] MEDS ORDERED: Levofloxacin 750mg IV 750 MG/150 ML BAG IV ONE (22:00)
[2021-05-20] MEDS ORDERED: ALBUTEROL 2.5 MG/3 ML NEB SOL NEB PRN (22:00)
[2021-05-20] MEDS ORDERED: VANCOMYCIN 2 GM in NA CHLORIDE 0.9% 500 ML IVPB ONE (22:00)
[2021-05-20 22:25] LABS: Protime INR 2.1
[2021-05-21 04:24] LABS: Absolute Lymphocytes (CBC) 1.1 K/uL (0.7-4.9); Basophils % 0.6 % (0-1.3); Hematocrit 39.4 % (39.6-49.0); Lymphocytes % 16.6 % (15.3-44.8); MPV 7.5 fL (7.6-11.3); RBC Red Blood Cell Count 4.34 M/uL (4.33-5.43)
[2021-05-21 05:05] LABS: Albumin 3.3 g/dL (3.4-5.0); Bilirubin Total 0.3 mg/dL (0.2-1.0); Potassium 3.3 mmol/L (3.5-5.1); Protein, Total 8.7 g/dL (6.4-8.2)
[2021-05-21 06:26] VITALS: BMI 43.4
[2021-05-21] MEDS: VANCOMYCIN 1.25 GM in NA CHLORIDE 0.9% 250 ML IVPB SCH (07:00)
[2021-05-21] MEDS ORDERED: Levofloxacin 750mg IV 750 MG/150 ML BAG IV ONE (07:00)
[2021-05-21] MEDS: INSULIN -REGULAR HUMAN 50 UNIT/0.5 ML ML SQ SCH ×4 (07:30→21:05)
[2021-05-21] MEDS ORDERED: PANTOPRAZOLE 40MG TABLET PO ONE (08:08)
[2021-05-21] MEDS ORDERED: VANCOMYCIN/NS 1 gm 1 GM/250 ML BAG IVPB SCH (08:45)
[2021-05-21] MEDS ORDERED: AMLODIPINE 5 MG TAB PO SCH (09:00)
[2021-05-21] MEDS: SEVELAMER CARBONATE 800 MG TABLET PO SCH ×3 (09:00→17:54)
[2021-05-21] MEDS ORDERED: LOSARTAN POTASSIUM 50 MG TABLET PO SCH ×2 (09:00→13:00)
[2021-05-21] MEDS ORDERED: SUCROFERRIC OXYHYDROXIDE 500 MG PO SCH (09:00)
[2021-05-21] MEDS ORDERED: VANCOMYCIN 3 GM in NA CHLORIDE 0.9% 500 ML IVPB SCH (09:00)
[2021-05-21] MEDS ORDERED: PANTOPRAZOLE 40MG TABLET PO SCH (09:00)
[2021-05-21] MEDS ORDERED: VANCOMYCIN 3 GM in NA CHLORIDE 0.9% 500 ML IVPB ONE (09:00)
[2021-05-21] MEDS ORDERED: METOPROLOL XL 25 MG TAB PO SCH (09:00)
[2021-05-21] MEDS ORDERED: Levofloxacin 250mg IV 250 MG/50 ML BAG IV SCH (13:00)
--- NOTE | 2021-05-21 14:25 | P.PN ---
Subjective Date of Service: 05/21/21 Primary Care Provider: Cristi Mckenna Chief Complaint: pneumonia Subjective: Improving Review of Systems 10-point ROS is otherwise unremarkable Physical Examination - Vital Signs Temperature: 96.8 F Blood Pressure: 122/62 Pulse: 96 Respirations: 18 Pulse Ox (%): 93 - Physical Exam General: Alert, In no apparent distress HEENT: Atraumatic, PERRLA, EOMI Neck: Supple, JVD not distended Respiratory: Clear to auscultation bilaterally, Normal air movement Cardiovascular: Regular rate/rhythm, Normal S1 S2 Gastrointestinal: Normal bowel sounds, No tenderness Musculoskeletal: No tenderness Integumentary: No rashes Neurological: Normal speech, Normal tone, Normal affect Lymphatics: No axilla or inguinal lymphadenopathy - Studies Laboratory Data (last 24 hrs) 05/20/21 14:05: PT 22.1 H, INR 1.91 05/20/21 14:05: WBC 7.40, Hgb 12.0 L, Hct 39.0 L, Plt Count 196 05/20/21 14:05: Sodium 135 L, Potassium 3.0 L, BUN 27 H, Creatinine 9.03 H*, Glucose 228 H, Magnesium 2.3 D, Total Bilirubin 0.3, AST 16, ALT 24, Alkaline Phosphatase 300 H Assessment & Plan - Problems (Diagnosis) (1) Pneumonia Current Visit: Yes Status: Acute Plan: Await blood cultures. Will start him on Vancomycin and levaquin. Per currently guidelines we can d/c if afebrile for 48hrs. He has a curb 65 score of 2. which translates to 3% 30day mortality. Recommendation is for inpatient treatment. (His initial sbp was 82/42 with a bun of 27) Start levalbuterol and antibiotic as stated above. Qualifiers: Pneumonia type: due to unspecified organism Laterality: bilateral Lung location: lower lobe of lung Qualified Code(s): J18.9 - Pneumonia, unspecified organism (2) Hypercoagulable state Current Visit: Yes Status: Chronic Plan: He is getting a doppler of his legs. States he has had a blood clot in his neck and one in his arm. He also has been know to have clots in his graft. This is why he is on coumadin. We can order imaging. However per guidelines a patient with a documented hypercoagulable state and 2 clotting episodes will need live long anticoagulation. Will increase his coumadin to 12 mg and bridge the patient with lovenox 100mg sq qday. (3) Congestive heart failure Onset Date: 08/10/15 Current Visit: No Status: Acute Plan: Patient is not fluid overloaded denies chg. He follows up with Dr. Mendez. He denies any sleep apnea as well. However the patient is very tired during the visit. We will keep an overnight pulse oximeter on the patient and see if he has any hypoxic events. We really should get a full outpatient sleep study. (4) ESRD (end stage renal disease) on dialysis Onset Date: 10/22/18 Current Visit: No Status: Chronic Plan: dialysis as per Dr. Seals (5) Diabetes mellitus Onset Date: 11/27/17 Current Visit: No Status: Chronic Plan: well controlled will check an a1c and continue home medications. 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
--- NOTE | 2021-05-21 15:19 | CON ---
Date of Consultation: 05/21/2021 Reason For Consultation: Elevated BUN and creatinine, fluid over volume. History Of Present Illness: This is a pleasant unfortunate 30-year-old gentleman, well known to me f rom dialysis with significant past medical history of congestive heart failure, ejection fraction of 30%, hypertension, diabetes with nephropathy, end-stage renal disease on hemodialysis, last hemodialy sis Saturday, lymphedema, anemia, the patient went to dialysis Saturday. The patient was complaining from decreased exertional tolerance to few steps with dry cough. Denied any fever, any chills. The patient was tested for COVID, was negative. Outside chest x-ray showing localized left-sided pneumo cale. The patient's respiratory status deteriorated. For that reason, he was sent to the emergency r oom. In the emergency room, chest x-ray showing interstitial infiltration bilateral. Again, the pat ient was tested again for COVID and was negative. The patient was admitted to the hospital and we tom ve been consulted. Past Medical History: Includes; 1.Congestive heart failure with ejection fraction back in 2018 had been improved to 79, before used to be down to 30, but showing dilated left atrium with third relaxation, mean diastolic dysfunction. 2.Lymphedema. 3.End-stage renal disease, on hemodialysis, TTS at [facility] through femoral ca theter. The patient had multiple access failed. Last access, he had on the right brachiocephalic AV fistula done by Dr. Ann. Still patent. Not used yet. Past Surgical History: Includes multiple AV fistula creation and ligation, multiple PermCath placeme nt and removal, PermCath femoral right currently on use, cholecystectomy. Home Medications: Include aspirin, temazepam, labetalol, isosorbide. Family History: Positive for diabetes. Current Medications: In the hospital include vancomycin, Renvela, pantoprazole, metoprolol, losartan , hydralazine, cinacalcet, atorvastatin, and amlodipine. Review of Systems: Head and Neck: No red eye. No ear pain. GI: No nausea. No vomiting. : No polyuria. No dysuria. No hematuria. General Supervisor: Not applicable. Respiratory: Has dry cough. Has shortness of breath. Cardiovascular: Has leg swelling. Has lymphedema. Endocrine: No polydipsia. Skin: No rash. Neuro: Has neuropathy. Musculoskeletal: Generalized fatigue. Physical Examination: General: When I saw the patient; the patient lying in bed. Vital Signs: Blood pressure 132/82, pulse of 72, afebrile. Chest: Crackles bilateral base, more prominent on the left side. Heart: S1, S2. Regular. Abdomen: Soft, nontender. Extremity: +1 edema, lymphedema bilateral. Neuro: Alert, oriented x3. No focal. Laboratory Data: Chest x-ray; cardiomegaly with congestion, bilateral. WBC 6.9, H and H 12.1/39.4. Sodium 135, potassium 3.3, bicarb 25, BUN 32, creatinine 10.2, calcium 11.3. Assessment And Plan: 1.End-stage renal disease, over volume. I am going to go ahead and arrange for the dialysis tomorro w. We will challenge the patient. The patient is going to be done as sequential to establish better volume control for the patient and we will follow up the patient closely. 2.Hypertension. We will utilize the blood pressure for more diuresis and ultrafiltration as the pat ient is going to receive daily dialysis in the next couple of sessions. 3.Over volume with congestive heart failure, diastolic dysfunction as above. We will do sequential dialysis to establish better volume control. 4.Hypercalcemia. The patient is going to be dialyzed on low calcium bath. We will hold on any calc ium supplement and hold calcium base binder. Continue cinacalcet. 5.Pneumonia, bilateral interstitial. COVID was negative. We will get CT noncontrast for better loc luation. Continue Levaquin and vancomycin for the time being. 6.Diabetes as by primary. ADRIANA/ROSA EELNAL Voice ID: [id number] Report ID: [id number]
--- NOTE | 2021-05-21 16:57 | RAD REPORT ---
EXAM DESCRIPTION: CT - Thorax Wo Con - 05/21/2021 4:40 pm CLINICAL HISTORY: sob COMPARISON: May 20, 2021 chest x-ray TECHNIQUE: Computed axial tomography of the chest was obtained. Contrast was not requested. All CT scans are performed using dose optimization technique as appropriate and may include automated exposure control or mA/KV adjustment according to patient size. FINDINGS: The evaluation of mediastinum, lexy and vessels is limited secondary to lack of IV contras t administration. There are a few areas of subsegmental atelectasis within the lungs bilaterally. Remainder lungs are c lear. No mediastinal or hilar lymphadenopathy is seen. A pleural effusion is not present. No pericardial effusion. Coronary arterial calcifications Bilateral gynecomastia Most inferior slices demonstrate what probably is the tip of a filter within the IVC IMPRESSION: A few areas of subsegmental atelectasis within the lungs bilaterally No evidence of pneumonia
[2021-05-21] MEDS ORDERED: ENOXAPARIN 30 MG/0.3 ML SQ SCH (17:00)
[2021-05-21] MEDS ORDERED: WARFARIN SODIUM 5 MG TAB PO SCH (17:00)
[2021-05-21] MEDS: ATORVASTATIN 20 MG TAB PO SCH (21:03)
[2021-05-21 23:03] VITALS: O2SAT 95
[2021-05-22 07:05] LABS: Albumin 3.1 g/dL (3.4-5.0); Bilirubin Total 0.4 mg/dL (0.2-1.0); Potassium 3.4 mmol/L (3.5-5.1); Protein, Total 8.2 g/dL (6.4-8.2)
[2021-05-22 07:12] LABS: Absolute Lymphocytes (CBC) 0.8 K/uL (0.7-4.9); Basophils % 0.3 % (0-1.3); Hematocrit 37.4 % (39.6-49.0); Lymphocytes % 13.4 % (15.3-44.8); MPV 8.6 fL (7.6-11.3); RBC Red Blood Cell Count 4.14 M/uL (4.33-5.43)
[2021-05-22 08:51] VITALS: BP 126/58; TEMP 97.5
[2021-05-22] MEDS ORDERED: CINACALCET HCL 30 MG TAB PO SCH (09:00)
[2021-05-22] MEDS ORDERED: INSULIN GLARGINE 100 UNITS/ML SQ SCH (09:00)
[2021-05-22] MEDS ORDERED: METOPROLOL XL 25 MG TAB PO SCH (09:00)
--- NOTE | 2021-05-22 10:43 | P.DS ---
Admission Date: 05/20/21 Discharge Date: 05/22/21 Primary Care Provider: Cristi Mckenna Disposition: ROUTINE DISCHARGE Discharge Condition: FAIR Reason for Admission: pneumonia - Problems (1) Pneumonia Current Visit: Yes Status: Acute Qualifiers: Pneumonia type: due to unspecified organism Laterality: bilateral Lung location: lower lobe of lung Qualified Code(s): J18.9 - Pneumonia, unspecified organism (2) Hypercoagulable state Current Visit: Yes Status: Chronic (3) Congestive heart failure Onset Date: 08/10/15 Current Visit: No Status: Acute (4) ESRD (end stage renal disease) on dialysis Onset Date: 10/22/18 Current Visit: No Status: Chronic (5) Diabetes mellitus Onset Date: 11/27/17 Current Visit: No Status: Chronic Qualifiers: Diabetes mellitus type: type 2 Diabetes mellitus retirement insulin use: with retirement use Diabetes mellitus complication status: with kidney complications Diabetes mellitus complication detail: with chronic kidney disease Chronic kidney disease stage: stage 5, not on chronic dialysis Qualified Code(s): E11.22 - Type 2 diabetes mellitus with diabetic chronic kidney disease; N18.5 - Chronic kidney disease, stage 5; N18.5 - Chronic kidney disease, stage 5; N18.5 - Chronic kidney disease, stage 5; N18.5 - Chronic kidney disease, stage 5; 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 He has a history of esrd, hypercoagulable state with a history of more than 2 blood clots. He seems to have been diagnoised with Protein C deficency. He has failed anticoagulation with eliquis and xarelto and is on Coumadin. The patient had a chest xray as an out patient and was found to have a pneumonia and was sent to the ER. He denies shortness of breath. However I have been speaking with Dr. Sparrow. He has been getting short of breath. The patient has been subtherapeutic on 10mg of coumadin. She was concerned about a PE. The patient has been seen by cardiology as well. His recent shortness of breath has not been due to cardiac reasons. he has a curb-65 score of 2. Hospital Course: Patient was admitted for sob. possible pneumonia vs PE. The patient has a history of protein C deficiency. His Ct showed more atelectasis. He is doing better today. Will send him home on lovenox and an increase dosage of coumadin Would consider an outpatient sleep study on the patient Vital Signs/Physical Exam: Temp Pulse Resp BP Pulse Ox 97.5 F 110 H 19 126/58 L 97 05/22/21 08:00 05/22/21 08:00 05/22/21 08:00 05/22/21 08:00 05/22/21 08:00 General: Alert, In no apparent distress HEENT: Atraumatic, PERRLA, EOMI Neck: Supple, JVD not distended Respiratory: Clear to auscultation bilaterally, Normal air movement Cardiovascular: Regular rate/rhythm, Normal S1 S2 Gastrointestinal: Normal bowel sounds, No tenderness Musculoskeletal: No tenderness Integumentary: No rashes Neurological: Normal speech, Normal tone, Normal affect Lymphatics: No axilla or inguinal lymphadenopathy Laboratory Data at Discharge: WBC 5.60 K/uL (4.3-10.9) D 05/22/21 06:13 Hgb 11.5 g/dL (13.6-17.9) L 05/22/21 06:13 Hct 37.4 % (39.6-49.0) L 05/22/21 06:13 Plt Count 191 K/uL (152-406) 05/22/21 06:13 PT Cancelled 05/20/21 Unknown INR Cancelled 05/20/21 Unknown Sodium 134 mmol/L (136-145) L 05/22/21 06:13 Potassium 3.4 mmol/L (3.5-5.1) L 05/22/21 06:13 BUN 46 mg/dL (7-18) H 05/22/21 06:13 Creatinine 12.50 mg/dL (0.55-1.3) H* D 05/22/21 06:13 Glucose 151 mg/dL (74-106) H 05/22/21 06:13 Magnesium 2.3 mg/dL (1.8-2.4) D 05/20/21 14:05 Total Bilirubin 0.4 mg/dL (0.2-1.0) 05/22/21 06:13 AST 12 U/L (15-37) L 05/22/21 06:13 ALT 23 U/L (12-78) 05/22/21 06:13 Alkaline Phosphatase 246 U/L (45-117) H 05/22/21 06:13 Triglycerides 154 mg/dL (<150) H 05/21/21 04:14 Cholesterol 78 mg/dL (<200) 05/21/21 04:14 HDL Cholesterol 35 mg/dL (40-60) L 05/21/21 04:14 Cholesterol/HDL Ratio 2.23 05/21/21 04:14 Home Medications: Amlodipine Besylate 1 tab PO DAILY 10/21/18 Atorvastatin Calcium [Lipitor] 40 mg PO BEDTIME 10/21/18 Cinacalcet HCl [Sensipar*] 1 tab PO DAILY 10/21/18 Hydralazine [Apresoline*] 1 tab PO PRN 10/21/18 Insulin Glargine,Hum.rec.anlog [Lantus Solostar] 10 unit SQ DAILY 10/21/18 Losartan Potassium 1 tab PO DAILY 10/21/18 Metoprolol Succinate 50 mg PO DAILY 10/21/18 Mirtazapine [Remeron*] 1 tab PO DAILY 10/21/18 Sevelamer Carbonate [Renvela] 1 tab PO TIDWM 10/21/18 Sucroferric Oxyhydroxide [Velphoro] 1 tab PO DAILY 10/21/18 clonazePAM [Clonazepam] 1 tab PO DAILY 10/21/18 Enoxaparin Sodium [Lovenox 100 MG INJ] 100 mg SQ DAILY #3 syr 05/22/21 Warfarin Sodium [Coumadin] 10 mg PO DAILY 5 PM 90 Days #90 tab 05/22/21 New Medications: Warfarin Sodium [Coumadin] 10 mg PO DAILY 5 PM 90 Days #90 tab Enoxaparin Sodium [Lovenox 100 MG INJ] 100 mg SQ DAILY #3 syr Diet: Renal Activity: Ad hema Followup: Cristi Mckenna PA [Primary Care Provider] - Homa Nolasco MD [ACTIVE - CAN ADMIT] - Time spent managing pt's care (in minutes): 30
[2021-05-22] MEDS ORDERED: MIRTAZAPINE 15 MG TAB PO SCH (21:00)
[2021-05-22] MEDS ORDERED: Levofloxacin500mg IV 500 MG/100 ML BAG IV SCH (22:00)
--- NOTE | 2021-05-23 01:51 | PN ---
Date of Progress Note: 05/22/2021 Chief Complaint: Congestive heart failure, fluid overload. History: Patient has a congestive heart failure with systolic dysfunction, ejection fraction 30%. Damaso mcdonald developed progressively worse shortness of breath. He was admitted to the hospital and received di alysis for volume control. The patient was tested for COVID and test was negative. Patient was foun d to have localized left-sided pneumonia and congestive heart failure on x-ray. The patient had lowe r extremity edema and it did not show DVT. Review of Systems: Patient is feeling better. Denies shortness of breath. Denies chest pain. Patient has history of l ymphedema, denies leg pain or excessive swelling. Physical Examination: Lungs: Clear to auscultation bilaterally. Heart: S1, S2. Abdomen: Soft, benign. Extremities: Slight edema . Impression And Plan: 1.End-stage renal disease. The patient will have dialysis today. Only ultrafiltration will be done . Patient has stable lab work. Potassium level is within normal limits. 2.Dialysis will be scheduled for tomorrow. 3.The patient was found to have bilateral interstitial pneumonia. COVID test was negative and he wa nts to have a noncontrast CT and evaluation of pneumonia and possible effusion. 4.Diabetes mellitus. Continue insulin. 5.Anemia . Hemoglobin level is 12.1. JOHN is on hold. 6.Hypertension. Monitor blood pressure and adjust medication to facilitate ultrafiltration. EB/MODL Voice ID: [id number] Report ID: [id number]
[2021-05-24 13:53] LABS: HBsAG Nonreactive (Nonreactive)
== END 2021-05-22 13:48 | disposition home or self-care (01) | DRG 193 ==
LOC: ER 12:59 → ERHOLD 18:40 → 2ND 05-21 09:29
PROVIDERS: ADMIT Internal Medicine; ATTEND Internal Medicine
PROC: 5A1D70Z Performance of Urinary Filtration, Intermittent, Less than 6 Hours Per Day (ICD-10-PCS; principal; 2021-05-22)
DX: J18.9 Pneumonia, unspecified organism (principal); N18.6 End stage renal disease; D68.59 Other primary thrombophilia; J98.11 Atelectasis; I13.2 Hypertensive heart and chronic kidney disease with heart failure and with stage 5 chronic kidney disease, or end stage renal disease; I50.22 Chronic systolic (congestive) heart failure; E11.22 Type 2 diabetes mellitus with diabetic chronic kidney disease; E83.52 Hypercalcemia; E11.21 Type 2 diabetes mellitus with diabetic nephropathy; D64.9 Anemia, unspecified; Z99.2 Dependence on renal dialysis; Z79.4 Long term (current) use of insulin; Z20.822 Contact with and (suspected) exposure to COVID-19
CPT/HCPCS: 36415; 71045; 71046; 71250; 80048; 80053; 80061; 80076; 82947; 83036; 83735; 83880; 84484; 85025; 85610; 86317; 86705; 87340; 90935; 93005; 93970; 94760; 96372; 96374; 99284; J1644; J1650; J3370; J7040; U0003

== ENCOUNTER 2023-06-10 15:36 | Emergency (ER) | payer OTHER ==
--- OUTSIDE RECORDS SUMMARY | 2023-06-10 15:48 | XMS REPORT | Continuity of Care Document ---
:1990 Author Organization [facility] t Address [address] [facility] [address] [place] [address] Care Team Providers Name Role Phone SHARPLESS Primary Care Physician Unavailable ABDOUL GRANADOS Attending Clinician Unavailable MATA CAMPOS Attending Clinician Unavailable LANDON JOHNSTON Attending Clinician Unavailable SHANI RAMSAY Attending Clinician Unavailable DENTON LIVINGSTON Attending Clinician Unavailable Vick Jalloh MD Attending Clinician Rizwan Hawthorne MD Attending Clinician Loretta Garcia Attending Clinician Leandro HU, Padmaja Attending Clinician Unavailable Shani Ramsay MD Attending Clinician Abdoul Granados MD Attending Clinician Julia Saucedo MA Attending Clinician Unavailable Doctor Unassigned, Neche Attending Clinician Unavailable CECILE TY Attending Clinician Unavailable Cecile Ty MD Attending Clinician Rico MESSER, Catina Menjivar Attending Clinician [phone] Dilma Hamilton MD Attending Clinician DILMA HAMILTON Attending Clinician Unavailable Transplant, Kidney Attending Clinician Unavailable STEPHANIE LANG Attending Clinician Unavailable Sumeet CULVER, Loretta Delaney Attending Clinician [phone] Vera WRIGHT, Eugenio Attending Clinician Unavailable MURPHY RAMIREZ Attending Clinician Unavailable Raji MESSER, Attila Hammond Attending Clinician Rosangela Bear MA Attending Clinician Unavailable Mayank Cox MD Attending Clinician Sarah Cespedes MD Attending Clinician Alise Jackson MD Attending Clinician DILIP BUCHANAN Attending Clinician Unavailable Tonya MESSER, Dalila Holguin Attending Clinician [phone] JOEL MCKAY Attending Clinician Unavailable JOEL MCKAY Attending Clinician Unavailable Joel Mckay MD Attending Clinician TOÑA LONG Attending Clinician Unavailable WILDER MILLARD Attending Clinician Unavailable Chitra Hui MD Attending Clinician [phone] CHITRA HUI Attending Clinician Unavailable JEANNE ZAVALA Attending Clinician Unavailable Jeanne Zavala MD Attending Clinician Alex Lucas Attending Clinician Unavailable GALEN MENDOZA Attending Clinician Unavailable Galen Mendoza MD Attending Clinician JONNY KINNEY K.HIsauro Attending Clinician Unavailable Jonny Kinney MD K.HIsauro Attending Clinician Access Coordinator, Transplant Attending Clinician Unavailable Worker, Transplant Social Attending Clinician Unavailable Renal, Transplant Class Attending Clinician Unavailable Misti CULVER, Steevn Catherine Attending Clinician Willy MESSER, Jossie Donnelly Attending Clinician Ryan Tran APRN Attending Clinician Kirstie MESSER, Mireya Attending Clinician Shreya MESSER, Red Attending Clinician Donna Li MD Attending Clinician Doug MESSER, Eduardo Barney Attending Clinician MD WILDER MILLARD Attending Clinician Unavailable Khadar HU, Matt Attending Clinician Unavailable Quang MESSER, Viviana Yo Attending Clinician [phone] Rashaun MESSER, Clement Gillis Attending Clinician Magnus MARRERO, Eduardo Barnard Attending Clinician [phone] DO EDUARDO AGUDELO Attending Clinician Unavailable Maninder MESSER, Mckenna Boyd Attending Clinician [phone] Lan MESSER, Nita Attending Clinician KYLE SANON Attending Clinician Unavailable KYLE SANON Attending Clinician Unavailable Saul Blankenship MA Attending Clinician Unavailable Farideh Saldaña MA Attending Clinician Unavailable Catina Adorno MD Attending Clinician Cem HU, Zahida Attending Clinician Unavailable Zach HU, Luis Wilson Attending Clinician Unavailable Luis Vasquez MD, Og Leal Attending Clinician [phone] Jareth MESSER, Esteban Attending Clinician Alfonzo MESSER, Jose Angel Attending Clinician Ailin Medrano MD Attending Clinician Amauri HU, Sherri Attending Clinician Unavailable Rubi MESSER, Red Amezcua Attending Clinician Gael MESSER, Lenny Attending Clinician Jose Francisco MESSER, Luci Galvez Attending Clinician Amairani MESSER, Mario Coyne Attending Clinician [phone] Josep Sheehan MD Attending Clinician Kelly Zuñiga MD, V. Attending Clinician Katty Cuadra Attending Clinician Andres MESSER, Mata Liang Attending Clinician MD MARIO BALES Attending Clinician Unavailab MD MATA Sunsihne Attending Clinician Unavailable Snehal Quinones MA Attending Clinician Unavailable Earle MESSER, Mike Self Attending Clinician Manisha MESSER, Dorian Martinez Attending Clinician [phone] ISRA SINCLAIR Attending Clinician Unavailable Kenny Coppola MD Attending Clinician Reema Scherer RN Attending Clinician Unavailable Marisol Clinton CRNA Attending Clinician Murphy Carreno Attending Clinician MD LUCI FELTON Attending Clinician Unavailable Diana Arias NP Attending Clinician Andres MESSER, Mata Mary Attending Clinician Shiela Ovalles MD Attending Clinician Lambert Rosales MD Attending Clinician EDWIN PADRON Attending Clinician Unavailable LUCI FELTON Attending Clinician Unavailable DELANO LOVE Attending Clinician Unavailable MD DELANO LOVE Attending Clinician Unavailable ANNE CASTILLO Attending Clinician Unavailable DR EDUARDO SHELTON Attending Clinician Unavailable ABDOUL GRANADOS Admitting Clinician Unavailable MATA CAMPOS Admitting Clinician Unavailable LANDON JOHNSTON Admitting Clinician Unavailable VICK JALLOH Admitting Clinician Unavailable CECILE TY Admitting Clinician Unavailable MAYANK COX Admitting Clinician Unavailable TOÑA LONG Admitting Clinician Unavailable WILDER MILLARD Admitting Clinician Unavailable Alex Lucas Admitting Clinician Unavailable RED CASH Admitting Clinician Unavailable MD RED CASH Admitting Clinician Unavailable EDUARDO AGUDELO Admitting Clinician Unavailable DO EDUARDO AGUDELO Admitting Clinician Unavailable Jareth MESSER Esteban Admitting Clinician LUCI FELTON Admitting Clinician Unavailable MD LUCI FELTON Admitting Clinician Unavailable MD MATA CAMPOS Admitting Clinician Unavailable MATA CAMPOS Admitting Clinician Unavailable MD DORIAN DYER Admitting Clinician UnavailSMITA Stokes Admitting Clinician Unavailable LUCI FELTON Admitting Clinician Unavailable DELANO LOVE Admitting Clinician Unavailable MD DELANO LOVE Admitting Clinician Unavailable PALOMO COVINGTON Admitting Clinician Unavailable ANNE CASTILLO Admitting Clinician Unavailable DR EDUARDO SHELTON Admitting Clinician Unavailable Payers Payer Name Policy Type Policy Number Effective Date Expiration Date S ource MEDICARE PART A \\T\\ [id number] 2015 B 00:00:00 MEDICARE A B [id number] 2015 00:00:00 CDC REVIEW [id number] 2020 00:00:00 [place]ien [id number] 2021 (MEDICARE 00:00:00 REPLACEMENT HMO) Problems Condition Condition Condition Status Onset Resolution Last Treating Co mments Source Name Details Category Date Date Treatment Clinician Date ESRD (end ESRD (end Disease Active Met hodi stage stage 8-14 st renal renal 00:00: Hospita disease) disease) 00 l Renal mass Renal mass Disease Active Overview : Univers 5-26 Formattin ity of 00:00: g of this [place] 00 note Medical might be Branch different from the original. Added automatic ally from request for surgery [id number] Peripheral Peripheral Disease Active U nivers vascular vascular 5-12 ity of disease disease 00:00: [place] [address] Medical Branch Amputated Amputated Disease Active Uni vers toe, left toe, left 5-12 ity of 00:00: [place] [address] Medical Branch Hx of Hx of Disease Active Univers tracheosto tracheosto 5-12 it y of my my 00:00: [place] 00 Medical Branch Multiple Multiple Disease Active 2021-09 Metho di closed closed 1-21 st fractures fractures 00:00: Hosp rachel of pelvis of pelvis 00 l without without disruption disruption of pelvic of pelvic ring, ring, initial initial encounter encounter Gastrointe Gastrointe Disease Active M ethodi stinal stinal 8-20 st hemorrhage hemorrhage 00:00: Ho spita with with 00 l melena melena Melena Melena Disease Active Overview: Method i 7-[address] 00:00: g of this Hospita 00 note l might be different from the original. Added automatic ally from request for surgery [id number] COVID-19 COVID-19 Disease Active 2020-09 Metho di virus virus 0-06 st detected detected 00:00: Hospit a 00 l Bacteremia Bacteremia Disease Active 2020-09 M ethodi 0-04 st 00:00: Hospita 00 l Anasarca Anasarca Disease Active Metho di 916 st 00:00: Hospita 00 l Acute Acute Disease Active Methodi pulmonary pulmonary 915 st edema edema 00:00: Hospita 00 l RADHIKA (acute RADHIKA (acute Disease Active M ethodi kidney kidney 05-31 st injury) injury) 00:00: Hospita 00 l Pneumonia Pneumonia Disease Active Met hodi 05-31 st 00:00: Hospita 00 l Hypertensi Hypertensi Disease Active M ethodi ve crisis ve crisis 05-31 st 00:00: Hospita 00 l CAD CAD Disease Active Methodi (coronary (coronary 05-31 st artery artery 00:00: Hospita disease)- disease)- 00 l PCI 2021 PCI 2021 Somnolence Somnolence Disease Active M ethodi 05-31 st 00:00: Hospita 00 l 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 with 05-31 st reduced reduced 00:00: Hospita left left 00 l ventricula ventricula r r function, function, NYHA class NYHA class 2 2 Hypertensi Hypertensi Disease Active M ethodi on on 9-08 st 00:00: Hospita 00 l Morbid Morbid Disease Active Methodi obesity obesity 03-21 00:00: Hospita 00 l PAD PAD Disease Active Methodi (periphera (periphera 03-21 l artery l artery 00:00: Hospit a disease) L disease) L 00 l 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, stenosis, L arm high L arm high bifurcatio bifurcatio n forearm n forearm art dz art dz Morbid Morbid Disease Active Methodi obesity obesity 02-25 with body with body 00:00: Hosp rachel mass index mass index 00 l of of 40.0-49.9 40.0-49.9 Sepsis Sepsis Disease Active Methodi associated associated 02-24 with with 00:00: Hospita vascular vascular 00 l access access catheter catheter Sepsis Sepsis Disease Active Methodi 02-24 00:00: Hospita 00 l Obesity Obesity Disease Active Methodi (BMI (BMI 02-24 30-39.9) 30-39.9) 00:00: Hospit a 00 l Tachycardi Tachycardi Disease Active M ethodi a a 02-13 st 00:00: Hospita 00 l Hypercoagu Hypercoagu Disease Active M ethodi lable lable 02-13 state state 00:00: Hospita 00 l CVA CVA Disease Active Methodi (cerebral (cerebral 02-13 vascular vascular 00:00: Hospit a accident) accident) 00 l (HCC) 2018 (HCC) 2018 L sided L sided weakness weakness HLD HLD Disease Active Methodi (hyperlipi (hyperlipi 02-13 demia) demia) 00:00: Hospita 00 l Hypotensio Hypotensio Disease Active M ethodi n n 02-13 st 00:00: Hospita 00 l Diabetes Diabetes Disease Active Metho di 02-10 st 00:00: Hospita 00 l Bleeding Bleeding Disease Active Metho di 01-28 st 00:00: Hospita 00 l Hemodialys Hemodialys Disease Recurre [facility] catheter catheter 00:00: Medica l dysfunctio dysfunctio 00 Ce nter n n ESRD (end ESRD (end Disease Active Met hodi stage stage 1-27 st renal renal 00:00: Hospita disease) disease) 00 l on on dialysis dialysis ([facility]) 2017 ([facility]) 2017 TTS TTS ESRD (end ESRD (end Disease Active Met hodi stage stage 1-30 st renal renal 00:00: Hospita disease) disease) 00 l on on dialysis dialysis ([facility]) 2017 ([facility]) 2017 TTS TTS Abscess of Abscess of Disease Active [facility] leg leg 5-15 [facility] without without 00:00: Medical foot, left foot, left 00 Ce nter Abscess of Abscess of Disease Active C [facility] leg, left leg, left 5-14 [facility] 00[facility] Medical [facility] Center Chronic Chronic Disease Active Methodi renal renal 11-27 disease disease 00:00: Hospita 00 l Hyponatrem Hyponatrem Disease Active M ethodi ia ia 11-27 00:00: Hospita 00 l Cellulitis Cellulitis Disease Active M ethodi 11-27 00:00: Hospita 00 l Diabetes Diabetes Disease Active Metho di mellitus mellitus 11-27 00:00: Hospita 00 l Obesity Obesity Disease Active Methodi 11-27 00:00: Hospita 00 l Anemia Anemia Disease Active Methodi 11-27 00:00: Hospita 00 l Lymphedema Lymphedema Disease Active M ethodi 11-27 00:00: Hospita 00 l Obstructiv Obstructiv Disease Active M ethodi e sleep e sleep 11-27 apnea apnea 00:00: Hospita 00 l Malignant Malignant Disease Active 2014-09 Met hodi hypertensi hypertensi 10-10 st on on 00:00: Hospita 00 l Allergies, Adverse Reactions, Alerts Allergy Allergy Status Severity Reaction(s) Onset Inactive Treating Comm ents Source Name Type Date Date Clinician Clopidog Propensi Active Itching 2021-09 Metho di rel ty to 10-13 st adverse 00:00: Hospita reaction 00 l s to drug CLOPIDOG DRUG Active Hives 2021-09 Univers REL INGREDI 10-13 ity of 00:00: [address] Clopidog Drug Active Itching 2021-09 Univers rel Allergy 1-21 ity of 00:00: [address] No Known DA Active U [facility] Allergie 2-11 [place] 00:00: [address] NO KNOWN Drug Active Univers ALLERGIE Class ity of S [facility] NO KNOWN Allergy Active [facility] ALLERGIE S Family History Family Member Diagnosis Comments Start Date Stop Date Source Natural mother No Known Problems Met [facility] Natural father [facility] Natural father [facility] Natural father Stroke [facility]aternal [facility] Social History Social Habit Start Date Stop Date Quantity Comments Source Sexual orientation [facility] History SDOH Confucianist Alcohol Std Drinks Hospit al History SDOH Confucianist Alcohol Binge Hospital History SDOH Confucianist Alcohol Comment Hospital Gender identity [facility] History of Social 2023-05-31 2023-05-[address] function 00:00:00 00:00:00 Hospital Exposure to 2023-02-04 2023-02-14 Not sure University SARS-CoV-2 (event) 00:00:00 14:40:00 [facility] Cigarettes smoked 2022-08-23 2022-08-[address] current (pack per 00:00:00 00:00:00 Hospita l day) - Reported Cigarette 2022-08-23 2022-08-23 Confucianist pack-years 00:00:00 00:00:00 Hospital Tobacco use and 2022-08-23 2022-08-23 Smokeless Confucianist exposure 00:00:00 00:00:00 tobacco non-user Hospital History SDOH 2020-11-23 2020-11-23 1 Confucianist Alcohol Frequency 00:00:00 00:00:00 Hospita l Alcohol intake 2020-06-23 2020-06-[address] [facility] 00:[facility]:00 00:00:00 non-drinker of Medical Ce nter alcohol (finding) History of tobacco 1997-09-23 2016-09-23 Current smoker Me [facility]odist use 00:00:00 00:00:00 Hospital Sex Assigned At [address] [facility] 00:00:00 [facility] Smoking Status Start Date Stop Date Source Ex-smoker 2022-08-23 00:00:00 2022-08-23 00:00:00 [facility] Never smoked tobacco [facility] Medications Ordered Filled Start Stop Current Ordering Indication Dosage Frequency Signature Comments Components Source Medication Medication Date Date Medication? Clinician (SIG) Name Name metoprolol Yes 100mg Q.5D Take 2 Meth marjan tartrate 9-[address] (LOPRESSOR) 03:03: (100 mg Hos paul 50 mg 36 total) by l tablet mouth 2 (two) times a day. aspirin Yes 81mg QD Take 1 Methodi (ECOTRIN) 9-08 tablet (81 st 81 MG 03:03: mg total) Hospita enteric 36 by mouth l coated daily. tablet midodrine Yes 10mg [id number] Take 1 [facility]i (PROAMATINE 05-31 [id number] tablet (10 st ) 10 MG 03:03: 3D mg total) Hospi ta tablet 36 by mouth 3 l (three) times a day as needed (low blood pressure). On dialysis days: Saturday, , Saturday folic Yes 1{tbl} QD Take 1 Methodi acid/vit B 9-[address] complex and 03:03: mouth Hospi ta C 36 daily. l (DIALYVITE ORAL) acetaminoph 2022- Yes 500mg Q6H Take 1 Me thodi en (Tylenol 05-[address] Extra 00:00: 04:59 (500 mg Hospita Strength) 00 :00 total) by l 500 MG mouth tablet every 6 (six) hours as needed for mild pain for up to 15 days. ticagrelor 2022- No 90mg Q.5D Take 1 Meth marjan (BRILINTA) 05-2805 tablet (90 st 90 mg 16:23: 00:00 mg total) Hospit a tablet 06 :00 by mouth 2 l (two) times a day. multivitami Yes 1{tbl} Take 1 Un jose daniel n tablet 8-24 tablet by ity of 14:06: mouth. [place] [address] Medical Branch insulin Yes inject Univers aspart Soln 8-24 under the ity of injection 14:06: skin [place] [address] before Medical meals. Branch metoprolol 2023-0 Yes 200mg Take 2 Univ ers tartrate 8-24 tablets by ity o f 100 mg 14:06: mouth. [place] tablet 21 Medical Branch sevelamer 0 Yes 1600mg Take 2 Univ ers 800 mg 8-24 tablets by ity of tablet 14:06: mouth. [place] [address] Medical Branch paricalcito 0 Yes 2ug Take 2 Univ ers L 1 mcg 8-24 capsules ity of capsule 14:06: by mouth. [place] [address] Medical [place] aspirin 81 0 Yes 81mg Take 1 Unive rs mg EC 8-24 tablet by ity of tablet 14:06: mouth. [address] folic Yes 1{tbl} Take 1 Univers acid/vit B 8-24 tablet by ity of complex and 14:06: mouth [place] [address] every Medical (DIALYVITE morning. Branc h ORAL) multivitami Yes 1{tbl} Take 1 Un jose daniel n tablet 8-24 tablet by ity of 14:06: mouth. [address] insulin Yes inject Univers aspart Soln 8-24 under the ity of injection 14:06: skin [place] [address] before Medical meals. Branch metoprolol Yes 200mg Take 2 Univ ers tartrate 8-24 tablets by ity o f 100 mg 14:06: mouth. [place] tablet 21 Medical Branch sevelamer Yes 1600mg Take 2 Univ ers 800 mg 8-24 tablets by ity of tablet 14:06: mouth. [place] [address] Medical [place] paricalcito Yes 2ug Take 2 Univ ers L 1 mcg 8-24 capsules ity of capsule 14:06: by mouth. [address] aspirin 81 0 Yes 81mg Take 1 Unive rs mg EC 8-24 tablet by ity of tablet 14:06: mouth. [address] folic 0 Yes 1{tbl} Take 1 Univers acid/vit B 8-24 tablet by ity of complex and 14:06: mouth [place] [address] every Medical (DIALYVITE morning. Branc h ORAL) multivitami 0 Yes 1{tbl} Take 1 Un jose daniel n tablet 8-24 tablet by ity of 14:06: mouth. [address] insulin 0 Yes inject Univers aspart Soln 8-24 under the ity of injection 14:06: skin [place] [address] before Medical meals. Branch metoprolol 0 Yes 200mg Take 2 Univ ers tartrate 8-24 tablets by ity o f 100 mg 14:06: mouth. [place] tablet 21 Medical Branch sevelamer 2022-0 Yes 1600mg Take 2 Univ ers 800 mg 8-24 tablets by ity of tablet 14:06: mouth. [address] Branch paricalcito 2022-0 Yes 2ug Take 2 Univ ers L 1 mcg 8-24 capsules ity of capsule 14:06: by mouth. [address] Branch aspirin 81 2022-0 Yes 81mg Take 1 Unive rs mg EC 8-24 tablet by ity of tablet 14:06: mouth. [address] Branch folic 2022-0 Yes 1{tbl} Take 1 Univers acid/vit B 8-24 tablet by ity of complex and 14:06: mouth [place] [address] every Medical (DIALYVITE morning. Branc h ORAL) multivitami 0 Yes 1{tbl} Take 1 Un jose daniel n tablet 8-24 tablet by ity of 14:06: mouth. [address] insulin 0 Yes inject Univers aspart Soln 8-24 under the ity of injection 14:06: skin [place] [address] before Medical meals. Branch metoprolol 0 Yes 200mg Take 2 Univ ers tartrate 8-24 tablets by ity o f 100 mg 14:06: mouth. [place] tablet 21 Medical [place] sevelamer 0 Yes 1600mg Take 2 Univ ers 800 mg 8-24 tablets by ity of tablet 14:06: mouth. [address] paricalcito 0 Yes 2ug Take 2 Univ ers L 1 mcg 8-24 capsules ity of capsule 14:06: by mouth. [address] aspirin 81 2022-0 Yes 81mg Take 1 Unive rs mg EC 8-24 tablet by ity of tablet 14:06: mouth. [address] folic 2022-0 Yes 1{tbl} Take 1 Univers acid/vit B 8-24 tablet by ity of complex and 14:06: mouth [place] [address] every Medical (DIALYVITE morning. Branc h ORAL) HYDROcodone 2022-0 2022- No 1{tbl} 1 tablet, Univers -acetaminop 03-28 07-06 Oral, ity of hen (NORCO) 16:30: 15:44 [place], [place] 10-325 mg 00 :00 dose, On Medica l tablet 1 Maryellen 03/28/23 Branc h tablet at 1130, CATHERINE predniSONE 2022-0 Yes [id number] 20mg Take 1 Univers 20 mg 7- 9105 tablet by ity of tablet 00:00: mouth in [place] 00 the Medical morning. Branch predniSONE 2022-0 Yes [id number] 20mg Take 1 Univers 20 mg 7-06 9105 tablet by ity of tablet 00:00: mouth in [place] 00 the Medical morning. Branch predniSONE 2022-0 Yes [id number] 20mg Take 1 Univers 20 mg 7- 9105 tablet by ity of tablet 00:00: mouth in [place] 00 the Medical morning. Branch predniSONE 2022-0 Yes [id number] 20mg Take 1 Univers 20 mg 7- 9105 tablet by ity of tablet 00:00: mouth in [place] 00 the Medical morning. Branch predniSONE 2022-0 Yes [id number] 20mg Take 1 Univers 20 mg 7- 9105 tablet by ity of tablet 00:00: mouth in [place] 00 the Medical morning. Branch predniSONE 2022-0 Yes [id number] 20mg Take 1 Univers 20 mg 7- 9105 tablet by ity of tablet 00:00: mouth in [place] 00 the Medical morning. Branch HYDROcodone 2022-2022- Yes [id number] 1{tbl} Take 1 U nivers -acetaminop 03-28 07-14 tablet by it y of hen (NORCO) 00:00: 04:59 mouth [place] 10-325 mg 00 :00 every 6 Medical tablet (six) Branch hours as needed for Pain (scale 4-6) for up to 7 days. Indication s: acute pain acetaminoph 2022-2022- [place] [id number] 1{tbl} Q6H Take 1-2 Methodi en-codeine 5-27 09-[address] (TYLENOL 00:00: 00:00 mouth Hospita WITH 00 :00 every 6 l CODEINE #3) (six) 300-30 mg hours as per tablet needed for severe pain for up to 20 doses .acute pain. cephalexin 2022-2022- No 500mg Q.5D Take 1 Met hodi (KEFLEX) 02-16 06-[address] 500 MG 00:00: 04:59 (500 mg Hospita capsule 00 :00 total) by l mouth 2 (two) times a day for 10 days. cephalexin 2022- No 500mg Q.5D Take 1 Met hodi (KEFLEX) -16 02-[address] 500 MG 00:00: 00:00 (500 mg Hospita capsule 00 :00 total) by l mouth 2 (two) times a day for 10 days. acetaminoph 2022-0 2022- No [id number] 1{tbl} Q6H Take 1-2 Methodi en-codeine 02-16- tablets by st (TYLENOL 00:00: 00:00 mouth Hospita WITH 00 :00 every 6 l CODEINE #3) (six) 300-30 mg hours as per tablet needed for severe pain for up to 20 doses .acute pain. aspirin 81 2022-0 Yes 81mg Take 1 Unive rs mg EC 5-25 tablet by ity of tablet 14:57: mouth. [address] Branch folic 2022-0 Yes 1{tbl} Take 1 Univers acid/vit B 5-25 tablet by ity of complex and 14:57: mouth [place] C 39 every Medical (DIALYVITE morning. Branc h ORAL) aspirin 81 2022-0 Yes 81mg Take 1 Unive rs mg EC 5-25 tablet by ity of tablet 14:57: mouth. [address] Branch folic 2022-0 Yes 1{tbl} Take 1 Univers acid/vit B 5-25 tablet by ity of complex and 14:57: mouth [place] C 39 every Medical (DIALYVITE morning. Branc h ORAL) aspirin 81 2022-0 Yes 81mg Take 1 Unive rs mg EC 5-25 tablet by ity of tablet 14:57: mouth. [address] folic 2022-0 Yes 1{tbl} Take 1 Univers acid/vit B 5-25 tablet by ity of complex and 14:57: mouth [place] C 39 every Medical (DIALYVITE morning. Branc h ORAL) aspirin 81 2022-0 Yes 81mg Take 1 Unive rs mg EC 5-25 tablet by ity of tablet 14:57: mouth. [address] folic 2022-0 Yes 1{tbl} Take 1 Univers acid/vit B 5-25 tablet by ity of complex and 14:57: mouth [place] C 39 every Medical (DIALYVITE morning. Branc h ORAL) aspirin 81 202-0 Yes 81mg Take 1 Unive rs mg EC 5-25 tablet by ity of tablet 14:57: mouth. [place] [address] Medical Branch folic 2022-0 Yes 1{tbl} Take 1 Univers acid/vit B 5-25 tablet by ity of complex and 14:57: mouth [place] C 39 every Medical (DIALYVITE morning. Branc h ORAL) aspirin 81 202-0 Yes 81mg Take 1 Unive rs mg EC 5-25 tablet by ity of tablet 14:57: mouth. [place] [address] Medical Branch folic 2022-0 Yes 1{tbl} Take 1 Univers acid/vit B 5-25 tablet by ity of complex and 14:57: mouth [place] C 39 every Medical (DIALYVITE morning. Branc h ORAL) aspirin 81 202-0 Yes 81mg Take 1 Unive rs mg EC 5-25 tablet by ity of tablet 14:57: mouth. [place] [address] Medical Branch folic 0 Yes 1{tbl} Take 1 Univers acid/vit B 5-25 tablet by ity of complex and 14:57: mouth [place] C 39 every Medical (DIALYVITE morning. Branc h ORAL) aspirin 81 202-0 Yes 81mg Take 1 Unive rs mg EC 5-25 tablet by ity of tablet 14:57: mouth. [place] [address] Medical Branch folic 2022-0 Yes 1{tbl} Take 1 Univers acid/vit B 5-25 tablet by ity of complex and 14:57: mouth [place] C 39 every Medical (DIALYVITE morning. Branc h ORAL) aspirin 81 202-0 Yes 81mg Take 1 Unive rs mg EC 5-25 tablet by ity of tablet 14:57: mouth. [place] [address] Medical Branch folic 2022-0 Yes 1{tbl} Take 1 Univers acid/vit B 5-25 tablet by ity of complex and 14:57: mouth [place] C 39 every Medical (DIALYVITE morning. Branc h ORAL) aspirin 81 202-0 Yes 81mg Take 1 Un[facility] rs mg EC 5-25 tablet by ity of tablet 14:57: mouth. [place] [id number] Medical Branch folic 2022-0 Yes 1{tbl} Take 1 [facility] acid/vit B 5-25 tablet by ity of complex and 14:57: mouth [place] [id number] every Medical (DIALYVITE morning. Branc h ORAL) aspirin 81 Yes 81mg Take 1 Unive rs mg EC 5-25 tablet by ity of tablet 14:57: mouth. [place] [address] Medical Branch folic Yes 1{tbl} Take 1 [facility] acid/vit B 5-25 tablet by ity of complex and 14:57: mouth [place] [id number] every Medical (DIALYVITE morning. Branc h ORAL) acetaminoph 2022- [place] [id number] 1{tbl} Q4H Take 1 [facility] en-codeine 1-13 05-[address] (TYLENOL 00:00: 00:00 mouth [facility] WITH 00 :00 every 4 l CODEINE #3) (four) 300-30 mg hours as per tablet needed for moderate pain for up to 30 doses .acute pain. HYDROcodone 2021-09 No 1{tbl} Q6H Take 1 [facility] -acetaminop 2-05-[address] [facility] ([place]) 00:00: 00:00 mouth [facility] 5-325 mg 00 :00 every 6 l per tablet (six) hours as needed for moderate pain .acute pain. Max Daily Amount: 4 tablets HYDROcodone 2021-09 No 1{tbl} Q6H Take 1 [facility] -acetaminop 2-08-[address] [facility] ([place]) 00:00: 00:00 mouth [facility] 5-325 mg 00 :00 every 6 l per tablet (six) hours as needed for moderate pain .acute pain. Max Daily Amount: 4 tablets sevelamer 2021-09 No 1600mg Take 1,600 [facility] ([place]) -22 11-[address] 800 mg 15:27: 00:00 mouth with [facility] tablet 26 :00 snacks. l lidocaine 4 2021-[address] 1 Me thodi % adhesive 10-[address] patch,medic 00:00: 00:00 the skin H [facility] ated 00 :00 daily. l Remove and discard patch within 12 hours or as directed by physician. polyethylen 2021-09 No 17g Q24H Take 17 g [facility] e glycol 10-[address] ([place]) 00:00: 05:59 daily as [facility] 17 gram 00 :00 needed for l packet constipati on for up to 30 days. HYDROcodone 2021-09 No [id number] 1{tbl} Q6H Take 1 [facility] -acetaminop 10-[address] [facility] ([place]) 00:00: 05:59 mouth [facility] 5-325 mg 00 :00 every 6 l per tablet (six) hours as needed for severe pain for up to 10 days .acute pain. Max Daily Amount: 4 tablets cinacalcet 2021-09 No 180mg [id number] Take 180 [facility] (SENSIPAR) 10-13 [id number] mg by s t 90 MG 23:00: 00:00 3W mouth 3 Hospita tablet 05 :00 (three) l times a week. On Saturday, and Saturday at dialysis warfarin 2021-09 No 8mg QD Take 8 mg Met hodi sodium 10-[address] (WARFARIN 22:14: 00:00 daily. [facility] ORAL) 02 :00 1pm l levETIRAcet Yes [id number] 250mg Take 1 [facility] am (KEPPRA) 8-26 tablet by ity of 250 mg 00:00: mouth in [place] tablet the morning Branch and 1 tablet in the evening. On , Sat may take an extra dose of 250 mg. levETIRAcet Yes [id number] 250mg Take 1 [facility] am (KEPPRA) 8-26 tablet by ity of 250 mg 00:00: mouth in [place] tablet 00 the morning Branch and 1 tablet in the evening. On , Sat may take an extra dose of 250 mg. levETIRAcet Yes [id number] 250mg Take 1 [facility] am (KEPPRA) 8-26 tablet by ity of 250 mg 00:00: mouth in [place] tablet the morning and 1 tablet in the evening. On , Sat may take an extra dose of 250 mg. levETIRAcet 2022-0 Yes [id number] 250mg Take 1 [facility] am (KEPPRA) 8-26 tablet by ity of 250 mg 00:00: mouth in [place] tablet 00 the Medical morning Branch and 1 tablet in the evening. On , Sat may take an extra dose of 250 mg. levETIRAcet 2022-0 Yes [id number] 250mg Take 1 [facility] am (KEPPRA) 8-26 tablet by ity of 250 mg 00:00: mouth in [place] tablet 00 the Medical morning Branch and 1 tablet in the evening. On , Sat may take an extra dose of 250 mg. levETIRAcet 2022-0 Yes [id number] 250mg Take 1 [facility] am (KEPPRA) 8-26 tablet by ity of 250 mg 00:00: mouth in [place] tablet 00 the Medical morning Branch and 1 tablet in the evening. On , Sat may take an extra dose of 250 mg. levETIRAcet 2022-0 Yes [id number] 250mg Take 1 [facility] am (KEPPRA) 8-26 tablet by ity of 250 mg 00:00: mouth in [place] tablet 00 the Medical morning Branch and 1 tablet in the evening. On , Sat may take an extra dose of 250 mg. levETIRAcet 2022-0 Yes [id number] 250mg Take 1 [facility] am (KEPPRA) 8-26 tablet by ity of 250 mg 00:00: mouth in [place] tablet 00 the Medical morning Branch and 1 tablet in the evening. On , Sat may take an extra dose of 250 mg. levETIRAcet 2022-0 Yes [id number] 250mg Take 1 [facility] am (KEPPRA) 8-26 tablet by ity of 250 mg 00:00: mouth in [place] tablet 00 the Medical morning Branch and 1 tablet in the evening. On , Sat may take an extra dose of 250 mg. levETIRAcet 2022-0 Yes [id number] 250mg Take 1 [facility] am (KEPPRA) 8-26 tablet by ity of 250 mg 00:00: mouth in [place] tablet 00 the Medical morning Branch and 1 tablet in the evening. On , Sat may take an extra dose of 250 mg. levETIRAcet 2022-0 Yes [id number] 250mg Take 1 [facility] am (KEPPRA) 8-26 tablet by ity of 250 mg 00:00: mouth in [place] tablet 00 the Medical morning Branch and 1 tablet in the evening. On , Sat may take an extra dose of 250 mg. levETIRAcet 2022-0 Yes [id number] 250mg Take 1 [facility] am (KEPPRA) 8-26 tablet by ity of 250 mg 00:00: mouth in [place] tablet 00 the Medical morning Branch and 1 tablet in the evening. On , Sat may take an extra dose of 250 mg. levETIRAcet 2022-0 Yes [id number] 250mg Take 1 [facility] am (KEPPRA) 8-26 tablet by ity of 250 mg 00:00: mouth in [place] tablet 00 the Medical morning Branch and 1 tablet in the evening. On , Sat may take an extra dose of 250 mg. levETIRAcet 2022-0 Yes [id number] 250mg Take 1 [facility] am (KEPPRA) 8-26 tablet by ity of 250 mg 00:00: mouth in [place] tablet 00 the Medical morning Branch and 1 tablet in the evening. On , Sat may take an extra dose of 250 mg. levETIRAcet 2022-0 Yes [id number] 250mg Take 1 [facility] am (KEPPRA) 8-26 tablet by ity of 250 mg 00:00: mouth in [place] tablet 00 the Medical morning Branch and 1 tablet in the evening. On , Sat may take an extra dose of 250 mg. levETIRAcet 2022-0 Yes [id number] 250mg Take 1 [facility] am (KEPPRA) 8-26 tablet by ity of 250 mg 00:00: mouth in [place] tablet 00 the Medical morning Branch and 1 tablet in the evening. On , Sat may take an extra dose of 250 mg. levETIRAcet 2022-0 Yes [id number] 250mg Take 1 [facility] am (KEPPRA) 8-26 tablet by ity of 250 mg 00:00: mouth in [place] tablet 00 the Medical morning Branch and 1 tablet in the evening. On , Sat may take an extra dose of 250 mg. levETIRAcet 2022-0 Yes [id number] 250mg Take 1 [facility] am (KEPPRA) 8-26 tablet by ity of 250 mg 00:00: mouth in [place] tablet 00 the Medical morning Branch and 1 tablet in the evening. On , Sat may take an extra dose of 250 mg. levETIRAcet 2022-0 Yes [id number] 250mg Take 1 [facility] am (KEPPRA) 8-26 tablet by ity of 250 mg 00:00: mouth in [place] tablet 00 the Medical morning Branch and 1 tablet in the evening. On , Sat may take an extra dose of 250 mg. levETIRAcet 2022-0 Yes [id number] 250mg Take 1 [facility] am (KEPPRA) 8-26 tablet by ity of 250 mg 00:00: mouth in [place] tablet 00 the Medical morning Branch and 1 tablet in the evening. On , Sat may take an extra dose of 250 mg. levETIRAcet 2022-0 Yes [id number] 250mg Take 1 [facility] am (KEPPRA) 8-26 tablet by ity of 250 mg 00:00: mouth in [place] tablet 00 the Medical morning Branch and 1 tablet in the evening. On , Sat may take an extra dose of 250 mg. levETIRAcet 2022-0 Yes [id number] 250mg Take 1 [facility] am (KEPPRA) 8-26 tablet by ity of 250 mg 00:00: mouth in [place] tablet 00 the Medical morning Branch and 1 tablet in the evening. On , Sat may take an extra dose of 250 mg. levETIRAcet 2022-0 Yes [id number] 250mg Take 1 [facility] am (KEPPRA) 8-26 tablet by ity of 250 mg 00:00: mouth in [place] tablet 00 the Medical morning Branch and 1 tablet in the evening. On , Sat may take an extra dose of 250 mg. levETIRAcet 2022-0 Yes [id number] 250mg Take 1 [facility] am (KEPPRA) 8-26 tablet by ity of 250 mg 00:00: mouth in [place] tablet 00 the Medical morning Branch and 1 tablet in the evening. On , Sat may take an extra dose of 250 mg. levETIRAcet 2022-0 Yes [id number] 250mg Take 1 [facility] am (KEPPRA) 8-26 tablet by ity of 250 mg 00:00: mouth in [place] tablet 00 the Medical morning Branch and 1 tablet in the evening. On , Sat may take an extra dose of 250 mg. levETIRAcet 2022-0 Yes [id number] 250mg Take 1 [facility] am (KEPPRA) 8-26 tablet by ity of 250 mg 00:00: mouth in [place] tablet 00 the Medical morning Branch and 1 tablet in the evening. On , Sat may take an extra dose of 250 mg. levETIRAcet 2022-0 Yes [id number] 250mg Take 1 [facility] am (KEPPRA) 8-26 tablet by ity of 250 mg 00:00: mouth in [place] tablet 00 the Medical morning Branch and 1 tablet in the evening. On , Sat may take an extra dose of 250 mg. levETIRAcet 2-0 Yes [id number] 250mg Take 1 [facility] am (KEPPRA) 8-26 tablet by ity of 250 mg 00:00: mouth in [place] tablet 00 the Medical morning Branch and 1 tablet in the evening. On , Sat may take an extra dose of 250 mg. levETIRAcet 2-0 Yes [id number] 250mg Take 1 [facility] am (KEPPRA) 8-26 tablet by ity of 250 mg 00:00: mouth in [place] tablet 00 the Medical morning Branch and 1 tablet in the evening. On , Sat may take an extra dose of 250 mg. BRILINTA 90 2021-0 Yes Univer s mg tablet 8-25 ity of 00:00: 00 Medical Branch BRILINTA 90 2-0 Yes Univer s mg tablet 8-25 ity of 00:00: 00 Medical Branch BRILINTA 90 2-0 Yes Univer s mg tablet 8-25 ity of 00:00: 00 Medical Branch BRILINTA 90 2021-0 Yes Univer s mg tablet 8-25 ity of 00:00: [facility] Branch BRILINTA 90 2022-0 Yes Univer s mg tablet 8-25 ity of 00:00: [place] 00 Medical Branch BRILINTA 90 2-0 Yes Univer s mg tablet 8-25 ity of 00:00: [place] 00 Medical Branch BRILINTA 90 2-0 Yes Univer s mg tablet 8-25 ity of 00:00: [place] 00 Medical Branch BRILINTA 90 2-0 Yes Univer s mg tablet 8-25 ity of 00:00: [place] 00 Medical Branch BRILINTA 90 2-0 Yes Univer s mg tablet 8-25 ity of 00:00: [place] 00 Medical Branch BRILINTA 90 2-0 Yes Univer s mg tablet 8-25 ity of 00:00: [place] 00 Medical Branch BRILINTA 90 2-0 Yes Univer s mg tablet 8-25 ity of 00:00: [place] 00 Medical Branch BRILINTA 90 2-0 Yes Univer s mg tablet 8-25 ity of 00:00: [place] 00 Medical Branch BRILINTA 90 2-0 Yes Univer s mg tablet 8-25 ity of 00:00: [place] 00 Medical Branch BRILINTA 90 2-0 Yes Univer s mg tablet 8-25 ity of 00:00: [place] 00 Medical Branch BRILINTA 90 2-0 Yes Univer s mg tablet 8-25 ity of 00:00: [place] 00 Medical Branch BRILINTA 90 2-0 Yes Univer s mg tablet 8-25 ity of 00:00: [place] 00 Medical Branch BRILINTA 90 2-0 Yes Univer s mg tablet 8-25 ity of 00:00: [place] 00 Medical Branch BRILINTA 90 2-0 Yes Univer s mg tablet 8-25 ity of 00:00: [place] 00 Medical Branch BRILINTA 90 2-0 Yes Univer s mg tablet 8-25 ity of 00:00: [place] 00 Medical Branch BRILINTA 90 2-0 Yes Univer s mg tablet 8-25 ity of 00:00: [place] 00 Medical Branch BRILINTA 90 2-0 Yes Univer s mg tablet 8-25 ity of 00:00: [place] 00 Medical Branch BRILINTA 90 2-0 Yes Univer s mg tablet 8-25 ity of 00:00: [place] 00 Medical Branch BRILINTA 90 2022-0 Yes Univer s mg tablet 8-25 ity of 00:00: [place] Medical Branch BRILINTA 90 2021-0 Yes Univer s mg tablet 8-25 ity of 00:00: [place] Medical Branch BRILINTA 90 2021-0 Yes Univer s mg tablet 8-25 ity of 00:00: Medical Branch BRILINTA 90 2021-0 Yes Univer s mg tablet 8-25 ity of 00:00: [place] Medical Branch BRILINTA 90 2021-0 Yes Univer s mg tablet 8-25 ity of 00:00: [place] Medical Branch BRILINTA 90 2021-0 Yes Univer s mg tablet 8-25 ity of 00:00: [place] Medical Branch BRILINTA 90 2021-0 Yes Univer s mg tablet 8-25 ity of 00:00: [place] Medical Branch pantoprazol 2021-0 2021- No 40mg Take 40 mg Univers e 40 mg EC 04-24 by mouth. ity of tablet 00:00: 04:59 [place] 00 :00 Medical Branch pantoprazol 2021-0 2021- No 40mg Take 40 mg Univers e 40 mg EC 04-24 by mouth. ity of tablet 00:00: 04:59 [place] 00 :00 [facility] Branch paricalcito 0 Yes 2ug Take 2 mcg Univers L 1 mcg 1-24 by mouth. ity of capsule 11:27: [address] paricalcito Yes 2ug Take 2 mcg Univers L 1 mcg 1-24 by mouth. ity of capsule 11:27: [address] paricalcito Yes 2ug Take 2 mcg Univers L 1 mcg 1-24 by mouth. ity of capsule 11:27: [address] paricalcito Yes 2ug Take 2 mcg Univers L 1 mcg 1-24 by mouth. ity of capsule 11:27: [address] paricalcito 0 Yes 2ug Take 2 mcg Univers L 1 mcg 1-24 by mouth. ity of capsule 11:27: [address] paricalcito Yes 2ug Take 2 mcg Univers L 1 mcg 1-24 by mouth. ity of capsule 11:27: [address] paricalcito 2022-0 Yes 2ug Take 2 mcg Univers L 1 mcg 1-24 by mouth. ity of capsule 11:27: [address] paricalcito Yes 2ug Take 2 mcg Univers L 1 mcg 1-24 by mouth. ity of capsule 11:27: [address] paricalcito Yes 2ug Take 2 mcg Univers L 1 mcg 1-24 by mouth. ity of capsule 11:27: [address] paricalcito Yes 2ug Take 2 mcg Univers L 1 mcg 1-24 by mouth. ity of capsule 11:27: [address] paricalcito Yes 2ug Take 2 mcg Univers L 1 mcg 1-24 by mouth. ity of capsule 11:27: [address] paricalcito Yes 2ug Take 2 mcg Univers L 1 mcg 1-24 by mouth. ity of capsule 11:27: [address] paricalcito Yes 2ug Take 2 mcg Univers L 1 mcg 1-24 by mouth. ity of capsule 11:27: [address] paricalcito Yes 2ug Take 2 mcg Univers L 1 mcg 1-24 by mouth. ity of capsule 11:27: [address] paricalcito Yes 2ug Take 2 mcg Univers L 1 mcg 1-24 by mouth. ity of capsule 11:27: [address] paricalcito Yes 2ug Take 2 mcg Univers L 1 mcg 1-24 by mouth. ity of capsule 11:27: [address] paricalcito Yes 2ug Take 2 mcg Univers L 1 mcg 1-24 by mouth. ity of capsule 11:27: [address] paricalcito 0 Yes 2ug Take 2 mcg Univers L 1 mcg 1-24 by mouth. ity of capsule 11:27: [address] paricalcito 0 Yes 2ug Take 2 mcg Univers L 1 mcg 1-24 by mouth. ity of capsule 11:27: [address] paricalcito 0 Yes 2ug Take 2 mcg Univers L 1 mcg 1-24 by mouth. ity of capsule 11:27: [address] paricalcito 0 Yes 2ug Take 2 mcg Univers L 1 mcg 1-24 by mouth. ity of capsule 11:27: [address] paricalcito Yes 2ug Take 2 mcg Univers L 1 mcg 1-24 by mouth. ity of capsule 11:27: [address] paricalcito Yes 2ug Take 2 mcg Univers L 1 mcg 1-24 by mouth. ity of capsule 11:27: [address] paricalcito Yes 2ug Take 2 mcg Univers L 1 mcg 1-24 by mouth. ity of capsule 11:27: [address] paricalcito Yes 2ug Take 2 mcg Univers L 1 mcg 1-24 by mouth. ity of capsule 11:27: [address] sevelamer Yes 800mg Take 800 Uni vers 800 mg 1-12 mg by ity of tablet 10:35: mouth. [address] midodrine Yes 10mg Take 10 mg Un jose daniel 10 mg 1-12 by mouth ity of tablet 10:35: as needed [place] [address] (take Medical before HD Branch as needed once daily). cinacalcet Yes 120mg Take 120 Un jose daniel 60 mg 1-12 mg by ity of tablet 10:35: mouth. [address] Branch insulin Yes inject Univers aspart 1-12 under the ity of RAPID 100 10:35: skin. [place] unit/mL Medical injection Branch atorvastati Yes 80mg Take 80 mg Univers n 80 mg 1-12 by mouth. ity of tablet 10:35: [address] sevelamer Yes 800mg Take 800 Uni vers 800 mg 1-12 mg by ity of tablet 10:35: mouth. [address] Branch midodrine Yes 10mg Take 10 mg Un jose daniel 10 mg 1-12 by mouth ity of tablet 10:35: as needed [place] [address] (take Medical before HD Branch as needed once daily). cinacalcet 0 Yes 120mg Take 120 Un jose daniel 60 mg 1-12 mg by ity of tablet 10:35: mouth. [address] insulin Yes inject Univers aspart 1-12 under the ity of RAPID 100 10:35: skin. [place] unit/mL Medical injection Branch atorvastati Yes 80mg Take 80 mg Univers n 80 mg 1-12 by mouth. ity of tablet 10:35: [place] [address] Medical Branch sevelamer Yes 800mg Take 800 Uni vers 800 mg 1-12 mg by ity of tablet 10:35: mouth. [place] [address] Medical Branch midodrine Yes 10mg Take 10 mg Un jose daniel 10 mg 1-12 by mouth ity of tablet 10:35: as needed [place] [address] (take Medical before HD Branch as needed once daily). cinacalcet 0 Yes 120mg Take 120 Un jose daniel 60 mg 1-12 mg by ity of tablet 10:35: mouth. [place] [address] Medical Branch insulin Yes inject Univers aspart 1-12 under the ity of RAPID 100 10:35: skin. [place] unit/mL Medical injection Branch atorvastati Yes 80mg Take 80 mg Univers n 80 mg 1-12 by mouth. ity of tablet 10:35: [address] sevelamer Yes 800mg Take 800 Uni vers 800 mg 1-12 mg by ity of tablet 10:35: mouth. [place] [address] Medical Branch midodrine Yes 10mg Take 10 mg Un jose daniel 10 mg 1-12 by mouth ity of tablet 10:35: as needed [place] [address] (take Medical before HD Branch as needed once daily). cinacalcet 0 Yes 120mg Take 120 Un jose daniel 60 mg 1-12 mg by ity of tablet 10:35: mouth. [address] Branch insulin Yes inject Univers aspart 1-12 under the ity of RAPID 100 10:35: skin. [place] unit/mL Medical injection Branch atorvastati Yes 80mg Take 80 mg Univers n 80 mg 1-12 by mouth. ity of tablet 10:35: [place] [address] Medical Branch sevelamer Yes 800mg Take 800 Uni vers 800 mg 1-12 mg by ity of tablet 10:35: mouth. [place] [address] Medical Branch midodrine Yes 10mg Take 10 mg Un jose daniel 10 mg 1-12 by mouth ity of tablet 10:35: as needed [place] [address] (take Medical before HD Branch as needed once daily). cinacalcet 0 Yes 120mg Take 120 Un jose daniel 60 mg 1-12 mg by ity of tablet 10:35: mouth. [place] [address] Medical Branch insulin 0 Yes inject Univers aspart 1-12 under the ity of RAPID 100 10:35: skin. [place] unit/mL Medical injection Branch atorvastati Yes 80mg Take 80 mg Univers n 80 mg 1-12 by mouth. ity of tablet 10:35: [place] [address] Medical Branch sevelamer 0 Yes 800mg Take 800 Uni vers 800 mg 1-12 mg by ity of tablet 10:35: mouth. [place] [address] Medical Branch midodrine Yes 10mg Take 10 mg Un jose daniel 10 mg 1-12 by mouth ity of tablet 10:35: as needed [place] [address] (take Medical before HD Branch as needed once daily). cinacalcet Yes 120mg Take 120 Un jose daniel 60 mg 1-12 mg by ity of tablet 10:35: mouth. [address] Branch insulin Yes inject Univers aspart 1-12 under the ity of RAPID 100 10:35: skin. [place] unit/mL Medical injection Branch atorvastati Yes 80mg Take 80 mg Univers n 80 mg 1-12 by mouth. ity of tablet 10:35: [address] Branch sevelamer Yes 800mg Take 800 Uni vers 800 mg 1-12 mg by ity of tablet 10:35: mouth. [place] [address] Medical Branch midodrine Yes 10mg Take 10 mg Un jose daniel 10 mg 1-12 by mouth ity of tablet 10:35: as needed [place] [address] (take Medical before HD Branch as needed once daily). cinacalcet Yes 120mg Take 120 Un jose daniel 60 mg 1-12 mg by ity of tablet 10:35: mouth. [place] [address] Medical Branch insulin 0 Yes inject Univers aspart 1-12 under the ity of RAPID 100 10:35: skin. [place] unit/mL Medical injection Branch atorvastati Yes 80mg Take 80 mg Univers n 80 mg 1-12 by mouth. ity of tablet 10:35: [address] Branch sevelamer 0 Yes 800mg Take 800 Uni vers 800 mg 1-12 mg by ity of tablet 10:35: mouth. [place] [address] Medical Branch midodrine 0 Yes 10mg Take 10 mg Un jose daniel 10 mg 1-12 by mouth ity of tablet 10:35: as needed [place] [address] (take Medical before HD Branch as needed once daily). cinacalcet 0 Yes 120mg Take 120 Un jose daniel 60 mg 1-12 mg by ity of tablet 10:35: mouth. [address] Branch insulin 0 Yes inject Univers aspart 1-12 under the ity of RAPID 100 10:35: skin. [place] unit/mL Medical injection Branch atorvastati Yes 80mg Take 80 mg Univers n 80 mg 1-12 by mouth. ity of tablet 10:35: [address] Branch sevelamer 0 Yes 800mg Take 800 Uni vers 800 mg 1-12 mg by ity of tablet 10:35: mouth. [address] Branch midodrine Yes 10mg Take 10 mg Un jose daniel 10 mg 1-12 by mouth ity of tablet 10:35: as needed [place] [address] (take Medical before HD Branch as needed once daily). cinacalcet 0 Yes 120mg Take 120 Un jose daniel 60 mg 1-12 mg by ity of tablet 10:35: mouth. [address] Branch insulin 0 Yes inject Univers aspart 1-12 under the ity of RAPID 100 10:35: skin. [place] unit/mL Medical injection Branch atorvastati Yes 80mg Take 80 mg Univers n 80 mg 1-12 by mouth. ity of tablet 10:35: [address] Branch sevelamer Yes 800mg Take 800 Uni vers 800 mg 1-12 mg by ity of tablet 10:35: mouth. [place] [address] Medical Branch midodrine 0 Yes 10mg Take 10 mg Un jose daniel 10 mg 1-12 by mouth ity of tablet 10:35: as needed [place] [address] (take Medical before HD Branch as needed once daily). cinacalcet 2021-0 Yes 120mg Take 120 Un jose daniel 60 mg 1-12 mg by ity of tablet 10:35: mouth. [address] Branch insulin 0 Yes inject Univers aspart 1-12 under the ity of RAPID 100 10:35: skin. [place] unit/mL Medical injection Branch atorvastati Yes 80mg Take 80 mg Univers n 80 mg 1-12 by mouth. ity of tablet 10:35: [place] [address] Medical Branch sevelamer Yes 800mg Take 800 Uni vers 800 mg 1-12 mg by ity of tablet 10:35: mouth. [place] [address] Medical Branch midodrine Yes 10mg Take 10 mg Un jose daniel 10 mg 1-12 by mouth ity of tablet 10:35: as needed [place] [address] (take Medical before HD Branch as needed once daily). cinacalcet 0 Yes 120mg Take 120 Un jose daniel 60 mg 1-12 mg by ity of tablet 10:35: mouth. [place] [address] Medical Branch insulin Yes inject Univers aspart 1-12 under the ity of RAPID 100 10:35: skin. [place] unit/mL Medical injection Branch atorvastati Yes 80mg Take 80 mg Univers n 80 mg 1-12 by mouth. ity of tablet 10:35: [address] sevelamer Yes 800mg Take 800 Uni vers 800 mg 1-12 mg by ity of tablet 10:35: mouth. [place] [address] Medical Branch midodrine Yes 10mg Take 10 mg Un jose daniel 10 mg 1-12 by mouth ity of tablet 10:35: as needed [place] [address] (take Medical before HD Branch as needed once daily). cinacalcet Yes 120mg Take 120 Un jose daniel 60 mg 1-12 mg by ity of tablet 10:35: mouth. [address] Branch insulin Yes inject Univers aspart 1-12 under the ity of RAPID 100 10:35: skin. [place] unit/mL Medical injection Branch atorvastati Yes 80mg Take 80 mg Univers n 80 mg 1-12 by mouth. ity of tablet 10:35: [address] Branch sevelamer Yes 800mg Take 800 Uni vers 800 mg 1-12 mg by ity of tablet 10:35: mouth. [place] [address] Medical Branch midodrine Yes 10mg Take 10 mg Un jose daniel 10 mg 1-12 by mouth ity of tablet 10:35: as needed [place] [address] (take Medical before HD Branch as needed once daily). cinacalcet 0 Yes 120mg Take 120 Un jose daniel 60 mg 1-12 mg by ity of tablet 10:35: mouth. [place] [address] Medical Branch insulin 0 Yes inject Univers aspart 1-12 under the ity of RAPID 100 10:35: skin. [place] unit/[facility] Medical injection Branch atorvastati Yes 80mg Take 80 mg Univers n 80 mg 1-12 by mouth. ity of tablet 10:35: [address] Branch sevelamer 0 Yes 800mg Take 800 Uni vers 800 mg 1-12 mg by ity of tablet 10:35: mouth. [place] [address] Medical Branch midodrine Yes 10mg Take 10 mg Un jose daniel 10 mg 1-12 by mouth ity of tablet 10:35: as needed [place] [address] (take Medical before HD Branch as needed once daily). cinacalcet 0 Yes 120mg Take 120 Un jose daniel 60 mg 1-12 mg by ity of tablet 10:35: mouth. [address] Branch insulin Yes inject Univers aspart 1-12 under the ity of RAPID 100 10:35: skin. [facility] [place] [facility] Medical injection Branch atorvastati Yes 80mg Take 80 mg Univers n 80 mg 1-12 by mouth. ity of tablet 10:35: [address] Branch sevelamer Yes 800mg Take 800 Uni vers 800 mg 1-12 mg by ity of tablet 10:35: mouth. [address] Branch midodrine Yes 10mg Take 10 mg Un jose daniel 10 mg 1-12 by mouth ity of tablet 10:35: as needed [place] [address] (take Medical before HD Branch as needed once daily). cinacalcet 0 Yes 120mg Take 120 Un jose daniel 60 mg 1-12 mg by ity of tablet 10:35: mouth. [address] Branch insulin 0 Yes inject Univers aspart 1-12 under the ity of RAPID 100 10:35: skin. [place] unit/[facility] Medical injection Branch atorvastati Yes 80mg Take 80 mg Univers n 80 mg 1-12 by mouth. ity of tablet 10:35: [address] Branch sevelamer 0 Yes 800mg Take 800 Uni vers 800 mg 1-12 mg by ity of tablet 10:35: mouth. [place] [address] Medical Branch midodrine 0 Yes 10mg Take 10 mg Un j[facility] daniel 10 mg 1-12 by mouth ity of tablet 10:35: as needed [place] [address] (take Medical before HD Branch as needed once daily). cinacalcet 0 Yes 120mg Take 120 Un jose daniel 60 mg 1-12 mg by ity of tablet 10:35: mouth. [address] Branch insulin 0 Yes inject [facility] aspart 1-12 under the ity of RAPID 100 10:35: skin. [place] unit/mL Medical injection Branch atorvastati 0 Yes 80mg Take 80 mg [facility] n 80 mg 1-12 by mouth. ity of tablet 10:35: [address] Branch sevelamer 0 Yes 800mg Take 800 Uni vers 800 mg 1-12 mg by ity of tablet 10:35: mouth. [address] Branch midodrine Yes 10mg Take 10 mg Un jose daniel 10 mg 1-12 by mouth ity of tablet 10:35: as needed [place] [address] (take Medical before HD Branch as needed once daily). cinacalcet 0 Yes 120mg Take 120 Un jose daniel 60 mg 1-12 mg by ity of tablet 10:35: mouth. [address] Branch insulin 0 Yes inject [facility] aspart 1-12 under the ity of RAPID 100 10:35: skin. [place] unit/mL Medical injection Branch atorvastati Yes 80mg Take 80 mg [facility] n 80 mg 1-12 by mouth. ity of tablet 10:35: [address] Branch sevelamer 0 Yes 800mg Take 800 Uni vers 800 mg 1-12 mg by ity of tablet 10:35: mouth. [place] [address] Medical Branch midodrine 0 Yes 10mg Take 10 mg Un jose daniel 10 mg 1-12 by mouth ity of tablet 10:35: as needed [place] [address] (take Medical before HD Branch as needed once daily). cinacalcet 0 Yes 120mg Take 120 Un jose daniel 60 mg 1-12 mg by ity of tablet 10:35: mouth. [address] insulin 0 Yes inject [facility] aspart 1-12 under the ity of RAPID 100 10:35: skin. [place] unit/mL Medical injection Branch atorvastati 0 Yes 80mg Take 80 mg [facility] n 80 mg 1-12 by mouth. ity of tablet 10:35: [place] [address] Medical Branch sevelamer 0 Yes 800mg Take 800 Uni vers 800 mg 1-12 mg by ity of tablet 10:35: mouth. [place] [address] Medical Branch midodrine Yes 10mg Take 10 mg Un jose daniel 10 mg 1-12 by mouth ity of tablet 10:35: as needed [place] [address] (take Medical before HD Branch as needed once daily). cinacalcet 0 Yes 120mg Take 120 Un jose daniel 60 mg 1-12 mg by ity of tablet 10:35: mouth. [place] [address] Medical Branch insulin 0 Yes inject [facility] aspart 1-12 under the ity of RAPID 100 10:35: skin. [place] unit/mL Medical injection Branch atorvastati Yes 80mg Take 80 mg [facility] n 80 mg 1-12 by mouth. ity of tablet 10:35: [address] Branch sevelamer Yes 800mg Take 800 Uni vers 800 mg 1-12 mg by ity of tablet 10:35: mouth. [place] [address] Medical Branch midodrine Yes 10mg Take 10 mg Un jose daniel 10 mg 1-12 by mouth ity of tablet 10:35: as needed [place] [address] (take Medical before HD Branch as needed once daily). cinacalcet 0 Yes 120mg Take 120 Un jose daniel 60 mg 1-12 mg by ity of tablet 10:35: mouth. [place] [address] Medical Branch insulin 0 Yes inject [facility] aspart 1-12 under the ity of RAPID 100 10:35: skin. [place] unit/mL Medical injection Branch atorvastati Yes 80mg Take 80 mg [facility] n 80 mg 1-12 by mouth. ity of tablet 10:35: [place] [address] Medical Branch sevelamer 0 Yes 800mg Take 800 Uni vers 800 mg 1-12 mg by ity of tablet 10:35: mouth. [place] [address] Medical Branch midodrine 0 Yes 10mg Take 10 mg Un jose daniel 10 mg 1-12 by mouth ity of tablet 10:35: as needed [place] [address] (take Medical before HD Branch as needed once daily). cinacalcet 0 Yes 120mg Take 120 Un jose daniel 60 mg 1-12 mg by ity of tablet 10:35: mouth. [place] [address] Medical Branch insulin 0 Yes inject [facility] aspart 1-12 under the ity of RAPID 100 10:35: skin. [place] unit/mL Medical injection Branch atorvastati Yes 80mg Take 80 mg [facility] n 80 mg 1-12 by mouth. ity of tablet 10:35: [address] Branch sevelamer 0 Yes 800mg Take 800 Uni vers 800 mg 1-12 mg by ity of tablet 10:35: mouth. [place] [address] Medical Branch midodrine Yes 10mg Take 10 mg Un jose daniel 10 mg 1-12 by mouth ity of tablet 10:35: as needed [place] [address] (take Medical before HD Branch as needed once daily). cinacalcet 0 Yes 120mg Take 120 Un jose daniel 60 mg 1-12 mg by ity of tablet 10:35: mouth. [address] Branch insulin Yes inject [facility] aspart 1-12 under the ity of RAPID 100 10:35: skin. [place] unit/mL Medical injection Branch atorvastati Yes 80mg Take 80 mg [facility] n 80 mg 1-12 by mouth. ity of tablet 10:35: [address] Branch sevelamer Yes 800mg Take 800 Uni vers 800 mg 1-12 mg by ity of tablet 10:35: mouth. [address] Branch midodrine Yes 10mg Take 10 mg Un jose daniel 10 mg 1-12 by mouth ity of tablet 10:35: as needed [place] [address] (take Medical before HD Branch as needed once daily). cinacalcet 0 Yes 120mg Take 120 Un jose daniel 60 mg 1-12 mg by ity of tablet 10:35: mouth. [address] Branch insulin 0 Yes inject [facility] aspart 1-12 under the ity of RAPID 100 10:35: skin. [place] unit/mL Medical injection Branch atorvastati Yes 80mg Take 80 mg [facility] n 80 mg 1-12 by mouth. ity of tablet 10:35: [address] Branch sevelamer 0 Yes 800mg Take 800 Uni vers 800 mg 1-12 mg by ity of tablet 10:35: mouth. [place] [address] Medical Branch midodrine 0 Yes 10mg Take 10 mg Un jose daniel 10 mg 1-12 by mouth ity of tablet 10:35: as needed [place] [address] (take Medical before HD Branch as needed once daily). cinacalcet 0 Yes 120mg Take 120 Un jose daniel 60 mg 1-12 mg by ity of tablet 10:35: mouth. [address] Branch insulin 0 Yes inject [facility] aspart 1-12 under the ity of RAPID 100 10:35: skin. [place] unit/mL Medical injection Branch atorvastati Yes 80mg Take 80 mg [facility] n 80 mg 1-12 by mouth. ity of tablet 10:35: [address] sevelamer 0 Yes 800mg Take 800 Uni vers 800 mg 1-12 mg by ity of tablet 10:35: mouth. [address] midodrine Yes 10mg Take 10 mg Un jose daniel 10 mg 1-12 by mouth ity of tablet 10:35: as needed [place] [address] (take Medical before HD Branch as needed once daily). cinacalcet 0 Yes 120mg Take 120 Un jose daniel 60 mg 1-12 mg by ity of tablet 10:35: mouth. [address] insulin 0 Yes inject [facility] aspart 1-12 under the ity of RAPID 100 10:35: skin. [place] unit/mL Medical injection Branch atorvastati Yes 80mg Take 80 mg [facility] n 80 mg 1-12 by mouth. ity of tablet 10:35: [address] sevelamer 0 Yes 800mg Take 800 Uni vers 800 mg 1-12 mg by ity of tablet 10:35: mouth. [address] Branch midodrine 0 Yes 10mg Take 10 mg Un jose daniel 10 mg 1-12 by mouth ity of tablet 10:35: as needed [place] [address] (take Medical before HD Branch as needed once daily). cinacalcet 2021-0 Yes 120mg Take 120 Un jose daniel 60 mg 1-12 mg by ity of tablet 10:35: mouth. [address] insulin 0 Yes inject [facility] aspart 1-12 under the ity of RAPID 100 10:35: skin. [place] unit/mL Medical injection Branch atorvastati 0 Yes 80mg Take 80 mg [facility] n 80 mg 1-12 by mouth. ity of tablet 10:35: [place] [address] Medical Branch sevelamer 0 Yes 800mg Take 800 Uni vers 800 mg 1-12 mg by ity of tablet 10:35: mouth. [place] [address] Medical Branch midodrine Yes 10mg Take 10 mg Un jose daniel 10 mg 1-12 by mouth ity of tablet 10:35: as needed [place] [address] (take Medical before HD Branch as needed once daily). cinacalcet 0 Yes 120mg Take 120 Un jose daniel 60 mg 1-12 mg by ity of tablet 10:35: mouth. [place] [address] Medical Branch insulin 0 Yes inject [facility] aspart 1-12 under the ity of RAPID 100 10:35: skin. [place] unit/mL Medical injection Branch atorvastati Yes 80mg Take 80 mg [facility] n 80 mg 1-12 by mouth. ity of tablet 10:35: [place] [address] Medical Branch sevelamer Yes 800mg Take 800 Uni vers 800 mg 1-12 mg by ity of tablet 10:35: mouth. [place] [address] Medical Branch midodrine Yes 10mg Take 10 mg Un jose daniel 10 mg 1-12 by mouth ity of tablet 10:35: as needed [place] [address] (take Medical before HD Branch as needed once daily). cinacalcet 0 Yes 120mg Take 120 Un jose daniel 60 mg 1-12 mg by ity of tablet 10:35: mouth. [place] [address] Medical Branch insulin 0 Yes inject [facility] aspart 1-12 under the ity of RAPID 100 10:35: skin. [place] unit/mL Medical injection Branch atorvastati Yes 80mg Take 80 mg [facility] n 80 mg 1-12 by mouth. ity of tablet 10:35: [place] [address] Medical Branch sevelamer 0 Yes 800mg Take 800 Uni vers 800 mg 1-12 mg by ity of tablet 10:35: mouth. [place] [address] Medical Branch midodrine 0 Yes 10mg Take 10 mg Un jose daniel 10 mg 1-12 by mouth ity of tablet 10:35: as needed [place] [address] (take Medical before HD Branch as needed once daily). cinacalcet 0 Yes 120mg Take 120 Un jose daniel 60 mg 1-12 mg by ity of tablet 10:35: mouth. [place] [address] Medical Branch insulin Yes inject [facility] aspart 1-12 under the ity of RAPID 100 10:35: skin. [place] unit/[facility] Medical injection Branch atorvastati 0 Yes 80mg Take 80 mg [facility] n 80 mg 1-12 by mouth. ity of tablet 10:35: [address] Branch metoprolol 0 Yes 200mg Take 200 Un jose daniel tartrate 1-12 mg by ity of 100 mg 10:33: mouth. [place] tablet [address] [place] [address] Branch sevelamer 0 Yes 1600mg Take 1,600 [facility] 800 mg 1-12 mg by ity of tablet 10:33: mouth. [address] Branch metoprolol 0 Yes 200mg Take 200 Un jose daniel tartrate 1-12 mg by ity of 100 mg 10:33: mouth. [place] tablet [address] [place] [address] Branch sevelamer 0 Yes 1600mg Take 1,600 [facility] 800 mg 1-12 mg by ity of tablet 10:33: mouth. [address] Branch metoprolol 0 Yes 200mg Take 200 Un jose daniel tartrate 1-12 mg by ity of 100 mg 10:33: mouth. [address] Branch sevelamer 0 Yes 1600mg Take 1,600 [facility] 800 mg 1-12 mg by ity of tablet 10:33: mouth. [address] Branch metoprolol 0 Yes 200mg Take 200 Un jose daniel tartrate 1-12 mg by ity of 100 mg 10:33: mouth. [address] Branch sevelamer 0 Yes 1600mg Take 1,600 [facility] 800 mg 1-12 mg by ity of tablet 10:33: mouth. [address] Branch metoprolol 0 Yes 200mg Take 200 Un jose daniel tartrate 1-12 mg by ity of 100 mg 10:33: mouth. [address] Branch sevelamer 0 Yes 1600mg Take 1,600 [facility] 800 mg 1-12 mg by ity of tablet 10:33: mouth. [address] Branch metoprolol 0 Yes 200mg Take 200 Un jose daniel tartrate 1-12 mg by ity of 100 mg 10:33: mouth. [place] tablet 26 Medical Branch sevelamer 0 Yes 1600mg Take 1,600 [facility] 800 mg 1-12 mg by ity of tablet 10:33: mouth. [address] Branch metoprolol 0 Yes 200mg Take 200 Un jose daniel tartrate 1-12 mg by ity of 100 mg 10:33: mouth. [place] tablet Medical Branch sevelamer 0 Yes 1600mg Take 1,600 [facility] 800 mg 1-12 mg by ity of tablet 10:33: mouth. [address] Branch metoprolol 0 Yes 200mg Take 200 Un jose daniel tartrate 1-12 mg by ity of 100 mg 10:33: mouth. [place] tablet Medical Branch sevelamer 0 Yes 1600mg Take 1,600 [facility] 800 mg 1-12 mg by ity of tablet 10:33: mouth. [address] Branch metoprolol 0 Yes 200mg Take 200 Un jose daniel tartrate 1-12 mg by ity of 100 mg 10:33: mouth. [place] tablet Medical Branch sevelamer 0 Yes 1600mg Take 1,600 [facility] 800 mg 1-12 mg by ity of tablet 10:33: mouth. [address] metoprolol 0 Yes 200mg Take 200 Un jose daniel tartrate 1-12 mg by ity of 100 mg 10:33: mouth. [place] tablet [address] [place] [address] Branch sevelamer 0 Yes 1600mg Take 1,600 [facility] 800 mg 1-12 mg by ity of tablet 10:33: mouth. [address] metoprolol 0 Yes 200mg Take 200 Un jose daniel tartrate 1-12 mg by ity of 100 mg 10:33: mouth. [place] tablet Medical Branch sevelamer 0 Yes 1600mg Take 1,600 [facility] 800 mg 1-12 mg by ity of tablet 10:33: mouth. [address] metoprolol 0 Yes 200mg Take 200 Un jose daniel tartrate 1-12 mg by ity of 100 mg 10:33: mouth. [place] tablet Medical Branch sevelamer 0 Yes 1600mg Take 1,600 [facility] 800 mg 1-12 mg by ity of tablet 10:33: mouth. [place] 26 Medical Branch metoprolol 0 Yes 200mg Take 200 Un jose daniel tartrate 1-12 mg by ity of 100 mg 10:33: mouth. [place] tablet 26 Medical Branch sevelamer 0 Yes 1600mg Take 1,600 [facility] 800 mg 1-12 mg by ity of tablet 10:33: mouth. [address] Branch metoprolol 0 Yes 200mg Take 200 Un jose daniel tartrate 1-12 mg by ity of 100 mg 10:33: mouth. [place] tablet Medical Branch sevelamer 0 Yes 1600mg Take 1,600 [facility] 800 mg 1-12 mg by ity of tablet 10:33: mouth. [address] Branch metoprolol 0 Yes 200mg Take 200 Un jose daniel tartrate 1-12 mg by ity of 100 mg 10:33: mouth. [place] tablet Medical Branch sevelamer 0 Yes 1600mg Take 1,600 [facility] 800 mg 1-12 mg by ity of tablet 10:33: mouth. [address] metoprolol 0 Yes 200mg Take 200 Un jose daniel tartrate 1-12 mg by ity of 100 mg 10:33: mouth. [place] tablet [address] [place] [address] Branch sevelamer 0 Yes 1600mg Take 1,600 [facility] 800 mg 1-12 mg by ity of tablet 10:33: mouth. [address] metoprolol 0 Yes 200mg Take 200 Un jose daniel tartrate 1-12 mg by ity of 100 mg 10:33: mouth. [place] tablet [address] [place] [address] Branch sevelamer 0 Yes 1600mg Take 1,600 Univers 800 mg 1-12 mg by ity of tablet 10:33: mouth. [address] metoprolol 0 Yes 200mg Take 200 Un jose daniel tartrate 1-12 mg by ity of 100 mg 10:33: mouth. [place] tablet Medical Branch sevelamer 2021-0 Yes 1600mg Take 1,600 [facility] 800 mg 1-12 mg by ity of tablet 10:33: mouth. [address] metoprolol 2021-0 Yes 200mg Take 200 Un jose daniel tartrate 1-12 mg by ity of 100 mg 10:33: mouth. [place] tablet [address] [place] [address] Branch sevelamer 2021-0 Yes 1600mg Take 1,600 [facility] 800 mg 1-12 mg by ity of tablet 10:33: mouth. [place] [address] Medical Branch metoprolol 0 Yes 200mg Take 200 Un jose daniel tartrate 1-12 mg by ity of 100 mg 10:33: mouth. [place] tablet 26 Medical Branch sevelamer 0 Yes 1600mg Take 1,600 [facility] 800 mg 1-12 mg by ity of tablet 10:33: mouth. [address] Branch metoprolol 2021-0 Yes 200mg Take 200 Un jose daniel tartrate 1-12 mg by ity of 100 mg 10:33: mouth. [place] tablet Medical Branch sevelamer 0 Yes 1600mg Take 1,600 [facility] 800 mg 1-12 mg by ity of tablet 10:33: mouth. [address] Branch metoprolol 0 Yes 200mg Take 200 Un jose daniel tartrate 1-12 mg by ity of 100 mg 10:33: mouth. [place] tablet Medical Branch sevelamer 0 Yes 1600mg Take 1,600 [facility] 800 mg 1-12 mg by ity of tablet 10:33: mouth. [address] metoprolol 0 Yes 200mg Take 200 Un jose daniel tartrate 1-12 mg by ity of 100 mg 10:33: mouth. [address] Branch sevelamer 0 Yes 1600mg Take 1,600 [facility] 800 mg 1-12 mg by ity of tablet 10:33: mouth. [address] metoprolol 0 Yes 200mg Take 200 Un jose daniel tartrate 1-12 mg by ity of 100 mg 10:33: mouth. [place] tablet Medical Branch sevelamer 0 Yes 1600mg Take 1,600 [facility] 800 mg 1-12 mg by ity of tablet 10:33: mouth. [address] metoprolol 0 Yes 200mg Take 200 Un jose daniel tartrate 1-12 mg by ity of 100 mg 10:33: mouth. [address] Branch sevelamer 2021-0 Yes 1600mg Take 1,600 [facility] 800 mg 1-12 mg by ity of tablet 10:33: mouth. [address] warfarin 5 2021-0 Yes 5mg Take 5 mg Un jose daniel mg tablet 1-03 by mouth. ity o f 00:00: [place] 00 Medical Branch warfarin 5 2022-0 Yes 5mg Take 5 mg Un jose daniel mg tablet 1-03 by mouth. ity o f 00:00: [facility] Branch warfarin 5 2022-0 Yes 5mg Take 5 mg Un jose daniel mg tablet 1-03 by mouth. ity o f 00:00: [facility] warfarin 5 2022-0 Yes 5mg Take 5 mg Un jose daniel mg tablet 1-03 by mouth. ity o f 00:00: [facility] Branch warfarin 5 2022-0 Yes 5mg Take 5 mg Un jose daniel mg tablet 1-03 by mouth. ity o f 00:00: [facility] warfarin 5 2-0 Yes 5mg Take 5 mg Un jose daniel mg tablet 1-03 by mouth. ity o f 00:00: [facility] warfarin 5 2-0 Yes 5mg Take 5 mg Un jose daniel mg tablet 1-03 by mouth. ity o f 00:00: [facility] warfarin 5 2022-0 Yes 5mg Take 5 mg Un jose daniel mg tablet 1-03 by mouth. ity o f 00:00: [facility] warfarin 5 2022-0 Yes 5mg Take 5 mg Un jose daniel mg tablet 1-03 by mouth. ity o f 00:00: [facility] warfarin 5 2-0 Yes 5mg Take 5 mg Un jose daniel mg tablet 1-03 by mouth. ity o f 00:00: [facility] warfarin 5 2022-0 Yes 5mg Take 5 mg Un jose daniel mg tablet 1-03 by mouth. ity o f 00:00: [facility] warfarin 5 2022-0 Yes 5mg Take 5 mg Un jose daniel mg tablet 1-03 by mouth. ity o f 00:00: [facility] warfarin 5 2022-0 Yes 5mg Take 5 mg Un jose daniel mg tablet 1-03 by mouth. ity o f 00:00: [facility] warfarin 5 2022-0 Yes 5mg Take 5 mg Un jose daniel mg tablet 1-03 by mouth. ity o f 00:00: [facility] warfarin 5 2022-0 Yes 5mg Take 5 mg Un jose daniel mg tablet 1-03 by mouth. ity o f 00:00: [facility] warfarin 5 2022-0 Yes 5mg Take 5 mg Un jose daniel mg tablet 1-03 by mouth. ity o f 00:00: [facility] warfarin 5 2021-0 Yes 5mg Take 5 mg Un jose daniel mg tablet 1-03 by mouth. ity o f 00:00: [facility] warfarin 5 2-0 Yes 5mg Take 5 mg Un jose daniel mg tablet 1-03 by mouth. ity o f 00:00: [facility] warfarin 5 2-0 Yes 5mg Take 5 mg Un jose daniel mg tablet 1-03 by mouth. ity o f 00:00: [facility] warfarin 5 2-0 Yes 5mg Take 5 mg Un jose daniel mg tablet 1-03 by mouth. ity o f 00:00: [facility] warfarin 5 2021-0 Yes 5mg Take 5 mg Un jose daniel mg tablet 1-03 by mouth. ity o f 00:00: [facility] warfarin 5 2021-0 Yes 5mg Take 5 mg Un jose daniel mg tablet 1-03 by mouth. ity o f 00:00: [facility] warfarin 5 2021-0 Yes 5mg Take 5 mg Un jose daniel mg tablet 1-03 by mouth. ity o f 00:00: [facility] warfarin 5 2021-0 Yes 5mg Take 5 mg Un jose daniel mg tablet 1-03 by mouth. ity o f 00:00: [facility] warfarin 5 2-0 Yes 5mg Take 5 mg Un jose daniel mg tablet 1-03 by mouth. ity o f 00:00: [facility] warfarin 5 2-0 Yes 5mg Take 5 mg Un jose daniel mg tablet 1-03 by mouth. ity o f 00:00: [facility] warfarin 5 2-0 Yes 5mg Take 5 mg Un jose daniel mg tablet 1-03 by mouth. ity o f 00:00: [facility] warfarin 5 2021-0 Yes 5mg Take 5 mg Un jose daniel mg tablet 1-03 by mouth. ity o f 00:00: [facility] warfarin 5 2-0 Yes 5mg Take 5 mg Un jose daniel mg tablet 1-03 by mouth. ity o f 00:00: [facility] VELPHORO 2020-09 Yes CHEW AND Unive rs 500 mg Chew 2-29 SWALLOW 3 ity of 00:00: TABLETS BY [place] MOUTH WITH Medical MEALS Branch [facility]- [facility] CHEW AND Unive rs 500 mg Chew 2-29 SWALLOW 3 ity of 00:00: TABLETS BY [place] MOUTH WITH [facility] CHEW AND Unive rs 500 mg Chew 2-29 SWALLOW 3 ity of 00:00: TABLETS BY [place] MOUTH WITH Medical MEALS Branch [facility]- Yes CHEW AND Unive rs 500 mg Chew 2-29 SWALLOW 3 ity of 00:00: TABLETS BY [place] MOUTH WITH Medical MEALS Branch [facility]- Yes CHEW AND Unive rs 500 mg Chew 2-29 SWALLOW 3 ity of 00:00: TABLETS BY [place] MOUTH WITH Medical MEALS Branch VELORO 2020- Yes CHEW AND Unive rs 500 mg Chew 2-29 SWALLOW 3 ity of 00:00: TABLETS BY [place] MOUTH WITH Medical MEALS Branch COUNT[facility]- Yes CHEW AND Unive rs 500 mg Chew 2-29 SWALLOW 3 ity of 00:00: TABLETS BY [place] MOUTH WITH Medical MEALS Branch COUNT[facility] 2020-1 Yes CHEW AND Unive rs 500 mg Chew 2-29 SWALLOW 3 ity of 00:00: TABLETS BY [place] MOUTH WITH Medical MEALS Branch COUNT[facility] 2020- Yes CHEW AND Unive rs 500 mg Chew 2-29 SWALLOW 3 ity of 00:00: TABLETS BY [place] MOUTH WITH Medical MEALS Branch COUNTS [facility] 2020- Yes CHEW AND Unive rs 500 mg Chew 2-29 SWALLOW 3 ity of 00:00: TABLETS BY [place] MOUTH WITH Medical MEALS Branch VELPHORO 2020-1 Yes CHEW AND Unive rs 500 mg Chew 2-29 SWALLOW 3 ity of 00:00: TABLETS BY [place] MOUTH WITH Medical MEALS Branch [facility] Yes CHEW AND Unive rs 500 mg Chew 2-29 SWALLOW 3 ity of 00:00: TABLETS BY [place] MOUTH WITH Medical MEALS Branch VELPHORO 2020-1 Yes CHEW AND Unive rs 500 mg Chew 2-29 SWALLOW 3 ity of 00:00: TABLETS BY [place] [id number] MOUTH WITH Medical MEALS Branch [facility]-1 Yes CHEW AND Unive rs 500 mg Chew 2-29 SWALLOW 3 ity of 00:00: TABLETS BY [place] MOUTH WITH Medical MEALS Branch VELPHORO 2020-1 Yes CHEW AND Unive rs 500 mg Chew 2-29 SWALLOW 3 ity of 00:00: TABLETS BY [place] MOUTH WITH Medical MEALS Branch VELPHORO 2020- Yes CHEW AND Unive rs 500 mg Chew 2-29 SWALLOW 3 ity of 00:00: TABLETS BY [place] MOUTH WITH Medical MEALS Branch VELPHORO 2020- Yes CHEW AND Unive rs 500 mg Chew 2-29 SWALLOW 3 ity of 00:00: TABLETS BY [place] MOUTH WITH Medical MEALS Branch VELPHORO 2020- Yes CHEW AND Unive rs 500 mg Chew 2-29 SWALLOW 3 ity of 00:00: TABLETS BY [place] MOUTH WITH Medical MEALS Branch VELPHORO 2020- Yes CHEW AND Unive rs 500 mg Chew 2-29 SWALLOW 3 ity of 00:00: TABLETS BY [place] MOUTH WITH Medical MEALS Branch VELPHORO 2020- Yes CHEW AND Unive rs 500 mg Chew 2-29 SWALLOW 3 ity of 00:00: TABLETS BY [place] MOUTH WITH Medical MEALS Branch VELPHORO 2020- Yes CHEW AND Unive rs 500 mg Chew 2-29 SWALLOW 3 ity of 00:00: TABLETS BY [place] MOUTH WITH Medical MEALS Branch [facility] 2020- Yes CHEW AND Unive rs 500 mg Chew 2-29 SWALLOW 3 ity of 00:00: TABLETS BY [place] MOUTH WITH Medical MEALS Branch VELPHORO 2020- Yes CHEW AND Unive rs 500 mg Chew 2-29 SWALLOW 3 ity of 00:00: TABLETS BY [place] MOUTH WITH Medical MEALS Branch VELPHORO 2020- Yes CHEW AND Unive rs 500 mg Chew 2-29 SWALLOW 3 ity of 00:00: TABLETS BY [place] MOUTH WITH Medical MEALS Branch VELPHORO 2020-1 Yes CHEW AND Unive rs 500 mg Chew 2-29 SWALLOW 3 ity of 00:00: TABLETS BY [place] MOUTH WITH Medical MEALS Branch VELPHORO 2020- Yes CHEW AND Unive rs 500 mg Chew 2-29 SWALLOW 3 ity of 00:00: TABLETS BY [place] MOUTH WITH Medical MEALS Branch VELPHORO 2020-1 Yes CHEW AND Unive rs 500 mg Chew 2-29 SWALLOW 3 ity of 00:00: TABLETS BY [place] MOUTH WITH Medical MEALS Branch VELPHORO 2020-1 Yes CHEW AND Unive rs 500 mg Chew 2-29 SWALLOW 3 ity of 00:00: TABLETS BY [place] 00 MOUTH WITH Medical MEALS Branch VELPHORO 2020-09 Yes CHEW AND Unive rs 500 mg Chew 2-29 SWALLOW 3 ity of 00:00: TABLETS BY [place] 00 MOUTH WITH Medical MEALS Branch sevelamer 2020-09 Yes 1600mg Take 1,600 [facility] (RENVELA) 2-[address] 800 mg 20:03: mouth with Hospi ta tablet 12 snacks. l cinacalcet 2020-09 Yes 120mg QD Take 120 [facility] (SENSIPAR) 2-[address] 60 MG 20:03: mouth [facility] tablet 12 daily. l Takes at lunch time paricalcito 2020-09 Yes 2ug QD Take 2 mcg [facility] L (ZEMPLAR) 2-[address] 1 MCG 20:03: daily. [facility]osp[facility] capsule 12 Takes at l Noon time sucroferric 2020-09 Yes 1000mg Chew 1,000 [facility] oxyhydroxid 2-[address] e 20:03: snacks. [facility]ospita (Velphoro) 12 l 500 mg tablet,chew able insulin 2020-09 Yes [id number] Inject [facility] ASPART 2-[id number] (NovoLOG) 20:03: 3D skin 3 Hospit a 100 unit/mL 12 (three) l injection times a day before meals. Per Sliding Scale per Pt. metoprolol 2020-09 Yes 200mg Q.5D Take 200 [facility] tartrate 2-[address] (LOPRESSOR) 20:03: mouth 2 Hos [facility] 100 mg 12 (two) l tablet times a day. folic 2020-09 Yes 1{tbl} QD Take 1 [facility] acid/vit B 2-[address] complex and 20:03: mouth Hospi ta C 12 daily. l (WESLY-ALESIA ORAL) acetaminoph 2020-09 Yes TAKE 1 Univ ers en-codeine 2-10 TABLET BY ity of 300-30 mg 00:00: MOUTH [place] tablet 00 EVERY 4 Medical HOURS Branch NEEDED FOR PAIN (MODERATE PAIN FOR UP TO 7 DAYS) CHEN [facility]ENSON acetaminoph 2020-09 Yes TAKE 1 Univ ers en-codeine 2-10 TABLET BY ity of 300-30 mg 00:00: MOUTH [place] tablet 00 EVERY 4 Medical HOURS Branch NEEDED FOR PAIN (MODERATE PAIN FOR UP TO 7 DAYS) [facility] acetaminoph 2020-09 Yes TAKE 1 [facility] en-codeine 2-10 TABLET BY [facility] of 300-30 mg 00:00: MOUTH [place] tablet 00 EVERY 4 Medical HOURS Branch NEEDED FOR PAIN (MODERATE PAIN FOR UP TO 7 DAYS) [facility] acetaminoph 2020-09 Yes TAKE 1 [facility] en-codeine 2-10 TABLET BY [facility] of 300-30 mg 00:00: MOUTH [place] tablet 00 EVERY 4 Medical HOURS Branch NEEDED FOR PAIN (MODERATE PAIN FOR UP TO 7 DAYS) [facility] acetaminoph 2020-09 Yes TAKE 1 [facility] en-codeine 2-10 TABLET BY [facility] of 300-30 mg 00:00: MOUTH [place] tablet 00 EVERY 4 Medical HOURS Branch NEEDED FOR PAIN (MODERATE PAIN FOR UP TO 7 DAYS) [facility] acetaminoph 2020-09 Yes TAKE 1 [facility] en-codeine 2-10 TABLET BY [facility] of 300-30 mg 00:00: MOUTH [place] tablet 00 EVERY 4 Medical HOURS Branch NEEDED FOR PAIN (MODERATE PAIN FOR UP TO 7 DAYS) [facility] acetaminoph 2020-09 Yes TAKE 1 [facility] en-codeine 2-10 TABLET BY [facility] of 300-30 mg 00:00: MOUTH [place] tablet 00 EVERY 4 Medical HOURS Branch NEEDED FOR PAIN (MODERATE PAIN FOR UP TO 7 DAYS) [facility] acetaminoph 2020-09 Yes TAKE 1 [facility] en-codeine 2-10 TABLET BY it[facility] of 300-30 mg 00:00: MOUTH [place] tablet 00 EVERY 4 Medical HOURS Branch NEEDED FOR PAIN (MODERATE PAIN FOR UP TO 7 DAYS) [facility] acetaminoph 2020-09 Yes TAKE 1 [facility] en-codeine 2-10 TABLET BY it[facility] of 300-30 mg 00:00: MOUTH [place] tablet 00 EVERY 4 Medical HOURS Branch NEEDED FOR PAIN (MODERATE PAIN FOR UP TO 7 DAYS) [facility] acetaminoph 2020-09 Yes TAKE 1 [facility] en-codeine 2-10 TABLET BY ity of 300-30 mg 00:00: MOUTH [place] tablet 00 EVERY 4 Medical HOURS Branch NEEDED FOR PAIN (MODERATE PAIN FOR UP TO 7 DAYS) [facility] acetaminoph 2020-09 Yes TAKE 1 [facility] en-codeine 2-10 TABLET BY [facility] of 300-30 mg 00:00: MOUTH [place] tablet 00 EVERY 4 Medical HOURS Branch NEEDED FOR PAIN (MODERATE PAIN FOR UP TO 7 DAYS) [facility] acetaminoph 2020-09 Yes TAKE 1 [facility] en-codeine 2-10 TABLET BY it[facility] of 300-30 mg 00:00: MOUTH [place] tablet 00 EVERY 4 Medical HOURS Branch NEEDED FOR PAIN (MODERATE PAIN FOR UP TO 7 DAYS) [facility] acetaminoph 2020-09 Yes TAKE 1 [facility] en-codeine 2-10 TABLET BY it[facility] of 300-30 mg 00:00: MOUTH [place] tablet 00 EVERY 4 Medical HOURS Branch NEEDED FOR PAIN (MODERATE PAIN FOR UP TO 7 DAYS) [facility] acetaminoph 2020-09 Yes TAKE 1 [facility] en-codeine 2-10 TABLET BY it[facility] of 300-30 mg 00:00: MOUTH [place] tablet 00 EVERY 4 Medical HOURS Branch NEEDED FOR PAIN (MODERATE PAIN FOR UP TO 7 DAYS) [facility] acetaminoph 2020-09 Yes TAKE 1 [facility] en-codeine 2-10 TABLET BY it[facility] of 300-30 mg 00:00: MOUTH [place] tablet 00 EVERY 4 Medical HOURS Branch NEEDED FOR PAIN (MODERATE PAIN FOR UP TO 7 DAYS) [facility] acetaminoph 2020-09 Yes TAKE 1 [facility] en-codeine 2-10 TABLET BY ity of 300-30 mg 00:00: MOUTH [place] tablet 00 EVERY 4 Medical HOURS Branch NEEDED FOR PAIN (MODERATE PAIN FOR UP TO 7 DAYS) [facility] acetaminoph 2020-09 Yes TAKE 1 [facility] en-codeine 2-10 TABLET BY ity of 300-30 mg 00:00: MOUTH [place] tablet 00 EVERY 4 Medical HOURS Branch NEEDED FOR PAIN (MODERATE PAIN FOR UP TO 7 DAYS) [facility] acetaminoph 2020-09 Yes TAKE 1 [facility] en-codeine 2-10 TABLET BY ity of 300-30 mg 00:00: MOUTH [place] tablet 00 EVERY 4 Medical HOURS Branch NEEDED FOR PAIN (MODERATE PAIN FOR UP TO 7 DAYS) [facility] acetaminoph 2020-09 Yes TAKE 1 [facility] en-codeine 2-10 TABLET BY it[facility] of 300-30 mg 00:00: MOUTH [place] tablet 00 EVERY 4 Medical HOURS Branch NEEDED FOR PAIN (MODERATE PAIN FOR UP TO 7 DAYS) [facility] acetaminoph 2020-09 Yes TAKE 1 [facility] en-codeine 2-10 TABLET BY it[facility] of 300-30 mg 00:00: MOUTH [place] tablet 00 EVERY 4 Medical HOURS Branch NEEDED FOR PAIN (MODERATE PAIN FOR UP TO 7 DAYS) [facility] acetaminoph 2020-09 Yes TAKE 1 [facility] en-codeine 2-10 TABLET BY ity of 300-30 mg 00:00: MOUTH [place] tablet 00 EVERY 4 Medical HOURS Branch NEEDED FOR PAIN (MODERATE PAIN FOR UP TO 7 DAYS) [facility] acetaminoph 2020-09 Yes TAKE 1 [facility] en-codeine 2-10 TABLET BY it[facility] of 300-30 mg 00:00: MOUTH [place] tablet 00 EVERY 4 Medical HOURS Branch NEEDED FOR PAIN (MODERATE PAIN FOR UP TO 7 DAYS) [facility] acetaminoph 2020-09 Yes TAKE 1 [facility] en-codeine 2-10 TABLET BY it[facility] of 300-30 mg 00:00: MOUTH [place] tablet 00 EVERY 4 Medical HOURS Branch NEEDED FOR PAIN (MODERATE PAIN FOR UP TO 7 DAYS) [facility] acetaminoph 2020-09 Yes TAKE 1 [facility] en-codeine 2-10 TABLET BY ity of 300-30 mg 00:00: MOUTH [place] tablet 00 EVERY 4 Medical HOURS Branch NEEDED FOR PAIN (MODERATE PAIN FOR UP TO 7 DAYS) [facility] acetaminoph 2020-09 Yes TAKE 1 [facility] en-codeine 2-10 TABLET BY ity of 300-30 mg 00:00: MOUTH [place] tablet 00 EVERY 4 Medical HOURS Branch NEEDED FOR PAIN (MODERATE PAIN FOR UP TO 7 DAYS) [facility] acetaminoph 2020-09 Yes TAKE 1 [facility] en-codeine 2-10 TABLET BY ity of 300-30 mg 00:00: MOUTH [place] tablet 00 EVERY 4 Medical HOURS Branch NEEDED FOR PAIN (MODERATE PAIN FOR UP TO 7 DAYS) [facility] acetaminoph 2020-09 Yes TAKE 1 [facility] en-codeine 2-10 TABLET BY ity of 300-30 mg 00:00: MOUTH [place] tablet 00 EVERY 4 Medical HOURS Branch NEEDED FOR PAIN (MODERATE PAIN FOR UP TO 7 DAYS) [facility] acetaminoph 2020-09 Yes TAKE 1 [facility] en-codeine 2-10 TABLET BY ity of 300-30 mg 00:00: MOUTH [place] tablet 00 EVERY 4 Medical HOURS Branch NEEDED FOR PAIN (MODERATE PAIN FOR UP TO 7 DAYS) [facility] acetaminoph 2020-09 Yes TAKE 1 [facility] en-codeine 2-10 TABLET BY ity of 300-30 mg 00:00: MOUTH [place] tablet 00 EVERY 4 Medical HOURS Branch NEEDED FOR PAIN (MODERATE PAIN FOR UP TO 7 DAYS) [facility] HENSON acetaminoph 2020-09- No [id number] 1{tbl} Q4H Take 1 [facility] en-codeine 2-10 12-[address] (TYLENOL 00:00: 05:59 mouth [facility]osp[facility] WITH 00 :00 every 4 l CODEINE #3) (four) 300-30 mg hours as per tablet needed for moderate pain for up to 7 days .acute pain. mirtazapine 2020-09 Yes TAKE 1 [facility] 30 mg 1-30 TABLET BY it[facility] of tablet 00:00: MOUTH ONCE 00 DAILY AT [facility] FOR 90 DAYS mirtazapine 2020-09 Yes TAKE 1 [facility] 30 mg 1-30 TABLET BY ity of tablet 00:00: MOUTH ONCE 00 DAILY AT [facility] FOR 90 DAYS mirtazapine 2020-09 Yes TAKE 1 [facility] 30 mg 1-30 TABLET BY ity of tablet 00:00: MOUTH ONCE 00 DAILY AT [facility] FOR 90 DAYS mirtazapine 2020-09 Yes TAKE 1 [facility] 30 mg 1-30 TABLET BY ity of tablet 00:00: MOUTH ONCE DAILY AT [facility] FOR 90 DAYS mirtazapine 2020-09 Yes TAKE 1 [facility] 30 mg 1-30 TABLET BY ity of tablet 00:00: MOUTH ONCE 00 DAILY AT [facility] FOR 90 DAYS mirtazapine 2020-09 Yes TAKE 1 [facility] 30 mg 1-30 TABLET BY ity of tablet 00:00: MOUTH ONCE 00 DAILY AT [facility] FOR 90 DAYS mirtazapine 2020-09 Yes TAKE 1 [facility] 30 mg 1-30 TABLET BY ity of tablet 00:00: MOUTH ONCE 00 DAILY AT [facility] FOR 90 DAYS mirtazapine 2020-09 Yes TAKE 1 [facility] 30 mg 1-30 TABLET BY ity of tablet 00:00: MOUTH ONCE 00 DAILY AT [facility] FOR 90 DAYS mirtazapine 2020-09 Yes TAKE 1 [facility] 30 mg 1-30 TABLET BY ity of tablet 00:00: MOUTH ONCE DAILY AT [facility] FOR 90 DAYS mirtazapine 2020-09 Yes TAKE 1 [facility] 30 mg 1-30 TABLET BY ity of tablet 00:00: MOUTH ONCE DAILY AT [facility] FOR 90 DAYS mirtazapine 2020-09 Yes TAKE 1 [facility] 30 mg 1-30 TABLET BY ity of tablet 00:00: MOUTH ONCE DAILY AT [facility] FOR 90 DAYS mirtazapine 2020-09 Yes TAKE 1 [facility] 30 mg 1-30 TABLET BY ity of tablet 00:00: MOUTH ONCE DAILY AT [facility] FOR 90 DAYS mirtazapine 2020-09 Yes TAKE 1 [facility] 30 mg 1-30 TABLET BY ity of tablet 00:00: MOUTH ONCE DAILY AT [facility] FOR 90 DAYS mirtazapine 2020-09 Yes TAKE 1 [facility] 30 mg 1-30 TABLET BY ity of tablet 00:00: MOUTH ONCE DAILY AT [facility] FOR 90 DAYS mirtazapine 2020-09 Yes TAKE 1 [facility] 30 mg 1-30 TABLET BY ity of tablet 00:00: MOUTH ONCE DAILY AT [facility] FOR 90 DAYS mirtazapine 2020-09 Yes TAKE 1 [facility] 30 mg 1-30 TABLET BY ity of tablet 00:00: MOUTH ONCE DAILY AT [facility] FOR 90 DAYS mirtazapine 2020-09 Yes TAKE 1 [facility] 30 mg 1-30 TABLET BY ity of tablet 00:00: MOUTH ONCE DAILY AT [facility] FOR 90 DAYS mirtazapine 2020-09 Yes TAKE 1 [facility] 30 mg 1-30 TABLET BY ity of tablet 00:00: MOUTH ONCE DAILY AT [facility] FOR 90 DAYS mirtazapine 2020-09 Yes TAKE 1 [facility] 30 mg 1-30 TABLET BY ity of tablet 00:00: MOUTH ONCE DAILY AT [facility] FOR 90 DAYS mirtazapine 2020-09 Yes TAKE 1 [facility] 30 mg 1-30 TABLET BY ity of tablet 00:00: MOUTH ONCE DAILY AT [facility] FOR 90 DAYS mirtazapine 2020-09 Yes TAKE 1 [facility] 30 mg 1-30 TABLET BY ity of tablet 00:00: MOUTH ONCE DAILY AT [facility] FOR 90 DAYS mirtazapine 2020-09 Yes TAKE 1 [facility] 30 mg 1-30 TABLET BY ity of tablet 00:00: MOUTH ONCE DAILY AT [facility] FOR 90 DAYS mirtazapine 2020-09 Yes TAKE 1 [facility] 30 mg 1-30 TABLET BY ity of tablet 00:00: MOUTH ONCE DAILY AT [facility] FOR 90 DAYS mirtazapine 2020-09 Yes TAKE 1 [facility] 30 mg 1-30 TABLET BY ity of tablet 00:00: MOUTH ONCE DAILY AT [facility] FOR 90 DAYS mirtazapine 2020-09 Yes TAKE 1 [facility] 30 mg 1-30 TABLET BY ity of tablet 00:00: MOUTH ONCE DAILY AT [facility] FOR 90 DAYS mirtazapine 2020-09 Yes TAKE 1 [facility] 30 mg 1-30 TABLET BY ity of tablet 00:00: MOUTH ONCE DAILY AT [facility] FOR 90 DAYS mirtazapine 2020-09 Yes TAKE 1 [facility] 30 mg 1-30 TABLET BY ity of tablet 00:00: MOUTH ONCE DAILY AT [facility] FOR 90 DAYS mirtazapine 2020-09 Yes TAKE 1 [facility] 30 mg 1-30 TABLET BY ity of tablet 00:00: MOUTH ONCE DAILY AT [facility] FOR 90 DAYS mirtazapine 2020-09 Yes TAKE 1 [facility] 30 mg 1-30 TABLET BY ity of tablet 00:00: MOUTH ONCE DAILY AT [facility] FOR 90 DAYS enoxaparin 2020-09 Yes 100mg inject 100 [facility] 100 mg/mL 1-09 mg under ity of injection 00:00: the skin. [place] [facility] 00 [facility] enoxaparin 2020-09 Yes 100mg inject 100 [facility] 100 mg/mL 1-09 mg under ity of injection 00:00: the skin. [place] 00 [facility] enoxaparin 2020-09 Yes 100mg inject 100 [facility] 100 mg/mL 1-09 mg under ity of injection 00:00: the skin. [place] 00 [facility] enoxaparin 2020-09 Yes 100mg inject 100 [facility] 100 mg/mL 1-09 mg under ity of injection 00:00: the skin. [place] [facility] 00 [facility] enoxaparin 2020- Yes 100mg inject 100 [facility] 100 mg/mL 1-09 mg under ity of injection 00:00: the skin. [place] 00 [facility] enoxaparin 2020- Yes 100mg inject 100 [facility] 100 mg/mL 1-09 mg under ity of injection 00:00: the skin. [place] 00 [facility] enoxaparin 2020- Yes 100mg inject 100 [facility] 100 mg/mL 1-09 mg under ity of injection 00:00: the skin. [place] 00 [facility] enoxaparin 2020- Yes 100mg inject 100 [facility] 100 mg/mL 1-09 mg under ity of injection 00:00: the skin. [place] 00 [facility] enoxaparin 2020- Yes 100mg inject 100 [facility] 100 mg/mL 1-09 mg under ity of injection 00:00: the skin. [place] 00 [facility] enoxaparin 2020- Yes 100mg inject 100 [facility] 100 mg/mL 1-09 mg under ity of injection 00:00: the skin. [place] 00 [facility] enoxaparin 2020-09 Yes 100mg inject 100 [facility] 100 mg/mL 1-09 mg under ity of injection 00:00: the skin. [place] 00 [facility] enoxaparin 2020-09 Yes 100mg inject 100 [facility] 100 mg/mL 1-09 mg under ity of injection 00:00: the skin. [place] 00 [facility] enoxaparin 2020-09 Yes 100mg inject 100 [facility] 100 mg/mL 1-09 mg under ity of injection 00:00: the skin. [place] 00 [facility] enoxaparin 2020- Yes 100mg inject 100 [facility] 100 mg/mL 1-09 mg under ity of injection 00:00: the skin. [place] 00 [facility] enoxaparin 2020- Yes 100mg inject 100 [facility] 100 mg/mL 1-09 mg under ity of injection 00:00: the skin. [place] 00 [facility] enoxaparin 2020-1 Yes 100mg inject 100 [facility] 100 mg/mL 1-09 mg under ity of injection 00:00: the skin. [place] 00 [facility] enoxaparin 2020- Yes 100mg inject 100 [facility] 100 mg/mL 1-09 mg under ity of injection 00:00: the skin. [place] 00 [facility] enoxaparin 2020- Yes 100mg inject 100 [facility] 100 mg/mL 1-09 mg under ity of injection 00:00: the skin. [place] 00 [facility] enoxaparin 2020- Yes 100mg inject 100 [facility] 100 mg/mL 1-09 mg under ity of injection 00:00: the skin. [place] 00 [facility] enoxaparin 2020- Yes 100mg inject 100 [facility] 100 mg/mL 1-09 mg under ity of injection 00:00: the skin. [place] 00 [facility] enoxaparin 2020- Yes 100mg inject 100 [facility] 100 mg/mL 1-09 mg under ity of injection 00:00: the skin. [place] 00 [facility] enoxaparin 2020-09 Yes 100mg inject 100 [facility] 100 mg/mL 1-09 mg under ity of injection 00:00: the skin. [place] 00 [facility] enoxaparin 2020- Yes 100mg inject 100 [facility] 100 mg/mL 1-09 mg under ity of injection 00:00: the skin. [place] 00 [facility] enoxaparin 2020-09 Yes 100mg inject 100 [facility] 100 mg/mL 1-09 mg under ity of injection 00:00: the skin. [place] 00 [facility] enoxaparin 2020-09 Yes 100mg inject 100 [facility] 100 mg/mL 1-09 mg under ity of injection 00:00: the skin. [place] 00 [facility] enoxaparin 2020-09 Yes 100mg inject 1 [facility] 100 mg/mL 1-09 mL under [facility]y of injection 00:00: the skin. [place] 00 [facility] enoxaparin 2020- Yes 100mg inject 1 [facility] 100 mg/mL 1-09 mL under [facility]y of injection 00:00: the skin. [place] 00 [facility] enoxaparin 2020-09 Yes 100mg inject 1 [facility] 100 mg/mL 1-09 mL under ity of injection 00:00: the skin. [place] 00 [facility] enoxaparin 2020- Yes 100mg inject 1 [facility] 100 mg/mL 1-09 mL under ity of injection 00:00: the skin. [place] 00 [facility] enoxaparin 2020-09 Yes 100mg QD Inject 100 [facility] (LOVENOX) 1-[address] 100 mg/mL 00:00: the skin [facility] syringe 00 daily. l atorvastati 2020-09 Yes Un[facility] s n 40 mg 0-29 ity of tablet 00:00: [place] [facility] atorvastati 2020-09 Yes Univer s n 40 mg 0-29 ity of tablet 00:00: [place] [facility] atorvastati 2020-09 Yes Univer s n 40 mg 0-29 ity of tablet 00:00: [place] [facility] atorvastati 2020-09 Yes Un[facility] s n 40 mg 0-29 ity of tablet 00:00: [place] [facility] atorvastati 2020-09 Yes Univer s n 40 mg 0-29 ity of tablet 00:00: [place] [facility] atorvastati 2020-09 Yes Univer s n 40 mg 0-29 ity of tablet 00:00: [place] [facility] atorvastati 2020-09 Yes Univer s n 40 mg 0-29 ity of tablet 00:00: [place] [facility] atorvastati 2020-09 Yes Univer s n 40 mg 0-29 ity of tablet 00:00: [place] [facility] atorvastati 2020-09 Yes Univer s n 40 mg 0-29 ity of tablet 00:00: [place] [facility] atorvastati 2020-09 Yes Univer s n 40 mg 0-29 ity of tablet 00:00: [place] [facility] atorvastati 2020-09 Yes Univer s n 40 mg 0-29 ity of tablet 00:00: [place] [facility] atorvastati 2020-09 Yes Univer s n 40 mg 0-29 ity of tablet 00:00: [place] [facility] atorvastati 2020-09 Yes Univer s n 40 mg 0-29 ity of tablet 00:00: [place] [facility] atorvastati 2020-09 Yes Univer s n 40 mg 0-29 ity of tablet 00:00: [place] [facility] atorvastati 2020-09 Yes Univer s n 40 mg 0-29 ity of tablet 00:00: [place] [facility] atorvastati 2020-09 Yes Univer s n 40 mg 0-29 ity of tablet 00:00: [place] [facility] atorvastati 2020-09 Yes Univer s n 40 mg 0-29 ity of tablet 00:00: [place] [facility] atorvastati 2020-09 Yes Univer s n 40 mg 0-29 ity of tablet 00:00: [place] [facility] atorvastati 2020-09 Yes Univer s n 40 mg 0-29 ity of tablet 00:00: [place] [facility] atorvastati 2020-09 Yes Univer s n 40 mg 0-29 ity of tablet 00:00: [place] [facility] atorvastati 2020-09 Yes Univer s n 40 mg 0-29 ity of tablet 00:00: [place] [facility] atorvastati 2020-09 Yes Univer s n 40 mg 0-29 ity of tablet 00:00: [place] [facility] atorvastati 2020-09 Yes Univer s n 40 mg 0-29 ity of tablet 00:00: [place] [facility] atorvastati 2020-09 Yes Univer s n 40 mg 0-29 ity of tablet 00:00: [place] [facility] atorvastati 2020-09 Yes Univer s n 40 mg 0-29 ity of tablet 00:00: [place] [facility] atorvastati 2020-09 Yes Univer s n 40 mg 0-29 ity of tablet 00:00: [place] [facility] atorvastati 2020-09 Yes Univer s n 40 mg 0-29 ity of tablet 00:00: [place] [facility] atorvastati 2020-09 Yes Univer s n 40 mg 0-29 ity of tablet 00:00: [place] [facility] atorvastati 2020-09 Yes Univer s n 40 mg 0-29 ity of tablet 00:00: [address] warfarin 2020-09- No 11mg QD Take 11 mg [facility] sodium 0-13 10-[address] (WARFARIN 15:22: 00:00 daily. Hospi ta ORAL) 39 :00 (patient l takes 2 tablets of 5mg + 1 tablet of 1mg = total dose 11mg) midodrine 2020-09- No 10mg Q.[id number] Take 1 [facility] (PROAMATINE 08-05 [id number] tablet (10 st ) 10 MG 00:00: 05:59 3D mg total) [facility] tablet 00 :00 by mouth 3 l (three) times a day for 30 days. warfarin 2020-09 No 7.5mg QD Take 1 [facility] (COUMADIN) 08-[address] 7.5 MG 00:00: 05:59 (7.5 mg Hospita tablet 00 :00 total) by l mouth daily for 30 days. vancomycin 2020-09- No 250mg Q.25D Take 5 mL [facility] (FIRVANQ) 07-09 ([address] 50 mg/mL 00:00: 04:59 total) by [facility] recon soln 00 :00 mouth 4 l oral (four) solution times a day for 3 days. linezolid 2020- No 600mg Q.5D Take 1 Meth marjan (ZYVOX) 600 06-[address] mg tablet 00:00: 04:59 (600 mg [facility] 00 :00 total) by l mouth 2 (two) times a day for 7 days. cefpodoxime No 100mg QD Take 1 [facility] (VANTIN) 06-[address] 100 MG 00:00: 04:59 (100 mg Hospita tablet 00 :00 total) by l mouth daily for 7 days. hydrALAZINE 2020- No 25mg Take 25 mg [facility] (APRESOLINE 06-[address] ) 25 MG 08:33: 00:00 as needed. [facility] tablet 14 :00 l Wesly-Alesia 2020- No 1{tbl} QD 1 tablet M [facility] Rx 1-60-300 06-05- daily. st mg-mg-mcg 00:00: 00:00 Hospita tablet 00 :00 l traMADoL 2020- No [id number] 50mg Q6H Take 1 [facility] di (Ultram) 50 06-02 tablet (50 s t mg tablet 00:00: 04:59 mg total) [facility] 00 :00 by mouth l every 6 (six) hours as needed for moderate pain for up to 5 doses .acute pain. enoxaparin 2020- No 100mg Q24H Inject 100 [facility] (LOVENOX) 05-22 09-[address] 100 mg/mL 00:00: 00:00 the skin [facility] syringe 00 :00 daily. (at l the time of medication history, patient's significan t other was unclear regarding this medication . She stated that patient was using it prior to surgery while OFF Warfarin. She said that MD was going to instruct patient further if he needed to continue using Enoxaparin and Warfarin concurrent ly depending on INR results from 06/07/21) warfarin Yes 7mg QD Take 7 mg Meth marjan (COUMADIN) 05-[address] 5 MG tablet 00:00: daily with [facility]osp[facility] 00 dinner. l insulin Yes 30U QD Inject [facility] ASPART 05-01 30-60 st (NovoLOG) 15:48: Units [facility]osp[facility] 100 unit/mL 43 under the l injection skin nightly. SLIDING SCALE metoprolol Yes 100mg Q.[id number] Take 100 [facility] tartrate 05-[id number] (LOPRESSOR) 15:48: 3D mouth 3 [facility] 100 mg 43 (three) l tablet times a day. hydrALAZINE Yes 25mg Take 25 mg [facility] (APRESOLINE 05-[address] ) 25 MG 15:48: as needed. [facility] tablet 43 l folic Yes QD Take by [facility] acid/vit B 05-[address] complex and 15:48: daily. [facility] C 43 l (WESLY-ALESIA ORAL) warfarin Yes 9mg QD Take 9 mg Meth marjan (COUMADIN) 05-[address] 5 MG tablet 15:48: daily. [facility] 43 Take 1 l tablet (5mg) by mouth daily for 30 days. acetaminoph 2020- [place] [id number] 1{tbl} Q4H Take 1 [facility] en-codeine 03-29 07-[address] (TYLENOL 00:00: 04:59 mouth [facility] WITH 00 :00 every 4 l CODEINE #3) (four) 300-30 mg hours as per tablet needed for moderate pain for up to 10 days .[place]. [place] [id number] 1{tbl} Q4H Take 1 [facility] en-codeine 03-29 [...] 50 :00 Last dose l on Saturday warfarin No 3mg QD Take 3 mg [facility] (COUMADIN) 03-[address] 3 MG tablet 15:18: 00:00 daily. [facility] 50 :00 Last dose l on Saturday levoFLOXaci Yes [id number] 750mg Take 1 [facility] n 750 mg 6-15 tablet by ity of tablet 00:00: mouth [place] 00 every Medical Saturday, and Saturday in the evening. levoFLOXaci Yes [id number] 750mg Take 1 [facility] n 750 mg 6-15 tablet by ity of tablet 00:00: mouth [place] 00 every Medical Saturday, and Saturday in the evening. levoFLOXaci Yes [id number] 750mg Take 1 [facility] n 750 mg 6-15 tablet by ity of tablet 00:00: mouth [place] 00 every Medical Saturday, and Saturday in the evening. levoFLOXaci Yes [id number] 750mg Take 1 [facility] n 750 mg 6-15 tablet by ity of tablet 00:00: mouth [place] 00 every Medical Saturday, and Saturday in the evening. levoFLOXaci 0 Yes [id number] 750mg Take 1 [facility] n 750 mg 6-15 tablet by ity of tablet 00:00: mouth [place] 00 every Medical Saturday, and Saturday in the evening. levoFLOXaci Yes [id number] 750mg Take 1 [facility] n 750 mg 6-15 tablet by ity of tablet 00:00: mouth [place] 00 every Medical Saturday, Branch and Saturday in the evening. levoFLOXaci 0 Yes [id number] 750mg Take 1 [facility] n 750 mg 6-15 tablet by ity of tablet 00:00: mouth [place] 00 every Medical Saturday, Branch and Saturday in the evening. levoFLOXaci 0 Yes [id number] 750mg Take 1 [facility] n 750 mg 6-15 tablet by ity of tablet 00:00: mouth [place] 00 every Medical Saturday, Branch and Saturday in the evening. levoFLOXaci 0 Yes [id number] 750mg Take 1 [facility] n 750 mg 6-15 tablet by ity of tablet 00:00: mouth [place] 00 every Medical Saturday, Branch and Saturday in the evening. levoFLOXaci 0 Yes [id number] 750mg Take 1 [facility] n 750 mg 6-15 tablet by ity of tablet 00:00: mouth [place] 00 every Medical Saturday, Branch and Saturday in the evening. levoFLOXaci 0 Yes [id number] 750mg Take 1 [facility] n 750 mg 6-15 tablet by ity of tablet 00:00: mouth [place] 00 every Medical Saturday, Branch and Saturday in the evening. levoFLOXaci 0 Yes [id number] 750mg Take 1 [facility] n 750 mg 6-15 tablet by ity of tablet 00:00: mouth [place] 00 every Medical Saturday, Branch and Saturday in the evening. levoFLOXaci 0 Yes [id number] 750mg Take 1 [facility] n 750 mg 6-15 tablet by ity of tablet 00:00: mouth [place] 00 every Medical Saturday, Branch and Saturday in the evening. levoFLOXaci 0 Yes [id number] 750mg Take 1 [facility] n 750 mg 6-15 tablet by ity of tablet 00:00: mouth [place] 00 every Medical Saturday, Branch and Saturday in the evening. levoFLOXaci 2020-0 Yes [id number] 750mg Take 1 [facility] n 750 mg 6-15 tablet by ity of tablet 00:00: mouth [place] 00 every Medical Saturday, Branch and Saturday in the evening. levoFLOXaci 2020-0 Yes [id number] 750mg Take 1 [facility] n 750 mg 6-15 tablet by ity of tablet 00:00: mouth [place] 00 every Medical Saturday, Branch and Saturday in the evening. levoFLOXaci 0 Yes [id number] 750mg Take 1 [facility] n 750 mg 6-15 tablet by ity of tablet 00:00: mouth [place] 00 every Medical Saturday, Branch and Saturday in the evening. levoFLOXaci 0 Yes [id number] 750mg Take 1 [facility] n 750 mg 6-15 tablet by ity of tablet 00:00: mouth [place] 00 every Medical Saturday, Branch and Saturday in the evening. levoFLOXaci 0 Yes [id number] 750mg Take 1 [facility] n 750 mg 6-15 tablet by ity of tablet 00:00: mouth [place] 00 every Medical Saturday, Branch and Saturday in the evening. levoFLOXaci 0 Yes [id number] 750mg Take 1 [facility] n 750 mg 6-15 tablet by ity of tablet 00:00: mouth [place] 00 every Medical Saturday, Branch and Saturday in the evening. levoFLOXaci 0 Yes [id number] 750mg Take 1 [facility] n 750 mg 6-15 tablet by ity of tablet 00:00: mouth [place] 00 every Medical Saturday, Branch and Saturday in the evening. levoFLOXaci 0 Yes [id number] 750mg Take 1 Univers n 750 mg 6-15 tablet by ity of tablet 00:00: mouth [place] 00 every Medical Saturday, Branch and Saturday in the evening. levoFLOXaci 0 Yes [id number] 750mg Take 1 [facility] 750 mg 6-15 tablet by [facility] of tablet 00:00: mouth [place] 00 every Medical Saturday, Branch and Saturday in the evening. levoFLOXaci 2020-0 Yes [id number] 750mg Take 1 [facility] 750 mg 6-15 tablet by [facility]y of tablet 00:00: mouth [place] 00 every Medical Saturday, Branch and Saturday in the evening. levoFLOXaci 2020-0 Yes [id number] 750mg Take 1 [facility] 750 mg 6-15 tablet by [facility] of tablet 00:00: mouth [place] 00 every Medical Saturday, Branch and Saturday in the evening. levoFLOXaci Yes [id number] 750mg Take 1 [facility] 750 mg 6-15 tablet by ity of tablet 00:00: mouth [place] 00 every Medical Saturday, Branch and Saturday in the evening. levoFLOXaci Yes [id number] 750mg Take 1 [facility] 750 mg 6-15 tablet by [facility] of tablet 00:00: mouth [place] 00 every Medical Saturday, Branch and Saturday in the evening. levoFLOXaci Yes [id number] 750mg Take 1 [facility] 750 mg 6-15 tablet by ity of tablet 00:00: mouth [place] 00 every Medical Saturday, Branch and Saturday in the evening. levoFLOXaci Yes [id number] 750mg Take 1 [facility] 750 mg 6-15 tablet by [facility]y of tablet 00:00: mouth [place] 00 every Medical Saturday, Branch and Saturday in the evening. multivitami Yes 1{tbl} Take 1 Un jose daniel n tablet 6-14 tablet by ity of 17:14: mouth. [address] insulin Yes inject [facility] aspart Soln 6-14 under the ity of injection 17:14: skin [place] [address] before Medical meals. Branch multivitami Yes 1{tbl} Take 1 Un jose daniel n tablet 6-14 tablet by ity of 17:14: mouth. [address] insulin Yes inject [facility] aspart Soln 6-14 under the ity of injection 17:14: skin [place] [address] before Medical meals. Branch multivitami Yes 1{tbl} Take 1 Un jose daniel n tablet 6-14 tablet by ity of 17:14: mouth. [address] insulin Yes inject [facility] aspart Soln 6-14 under the ity of injection 17:14: skin [place] [address] before Medical meals. Branch multivitami Yes 1{tbl} Take 1 Un jose daniel n tablet 6-14 tablet by ity of 17:14: mouth. [address] insulin Yes inject [facility] aspart Soln 6-14 under the ity of injection 17:14: skin [place] 44 before Medical meals. Branch multivitami Yes 1{tbl} Take 1 Un jose daniel n tablet 6-14 tablet by ity of 17:14: mouth. [address] insulin Yes inject [facility] aspart Soln 6-14 under the ity of injection 17:14: skin [place] 44 before Medical meals. Branch multivitami Yes 1{tbl} Take 1 [facility] daniel n tablet 6-14 tablet by ity of 17:14: mouth. [address] insulin Yes inject [facility] aspart Soln 6-14 under the ity of injection 17:14: skin [place] 44 before Medical meals. Branch multivitami Yes 1{tbl} Take 1 Un [facility] daniel n tablet 6-14 tablet by ity of 17:14: mouth. [address] insulin Yes inject [facility] aspart Soln 6-14 under the ity of injection 17:14: skin [place] 44 before Medical meals. Branch multivitami Yes 1{tbl} Take 1 [facility] daniel n tablet 6-14 tablet by ity of 17:14: mouth. [address] insulin Yes inject [facility] aspart Soln 6-14 under the ity of injection 17:14: skin [place] 44 before Medical meals. Branch multivitami Yes 1{tbl} Take 1 [facility] n tablet 6-14 tablet by ity of 17:14: mouth. [address] insulin Yes inject [facility] aspart Soln 6-14 under the ity of injection 17:14: skin [place] 44 before Medical meals. Branch multivitami Yes 1{tbl} Take 1 [facility] n tablet 6-14 tablet by ity of 17:14: mouth. [address] insulin Yes inject [facility] aspart Soln 6-14 under the ity of injection 17:14: skin [place] 44 before Medical meals. Branch multivitami Yes 1{tbl} Take 1 [facility] n tablet 6-14 tablet by ity of 17:14: mouth. [address] insulin Yes inject [facility] aspart Soln 6-14 under the ity of injection 17:14: skin [place] 44 before Medical meals. Branch multivitami Yes 1{tbl} Take 1 [facility] n tablet 6-14 tablet by ity of 17:14: mouth. [address] insulin Yes inject [facility] aspart Soln 6-14 under the ity of injection 17:14: skin [place] 44 before Medical meals. Branch multivitami Yes 1{tbl} Take 1 [facility] n tablet 6-14 tablet by ity of 17:14: mouth. [address] insulin Yes inject [facility] aspart Soln 6-14 under the ity of injection 17:14: skin [place] 44 before Medical meals. Branch multivitami Yes 1{tbl} Take 1 [facility] n tablet 6-14 tablet by ity of 17:14: mouth. [address] insulin Yes inject [facility] aspart Soln 6-14 under the ity of injection 17:14: skin [place] 44 before Medical meals. Branch multivitami Yes 1{tbl} Take 1 [facility]iel n tablet 6-14 tablet by ity of 17:14: mouth. [address] insulin Yes inject [facility] aspart Soln 6-14 under the ity of injection 17:14: skin [place] 44 before Medical meals. Branch multivitami Yes 1{tbl} Take 1 [facility] n tablet 6-14 tablet by ity of 17:14: mouth. [address] insulin Yes inject [facility] aspart Soln 6-14 under the ity of injection 17:14: skin [place] 44 before Medical meals. Branch multivitami Yes 1{tbl} Take 1 [facility] tablet 6-14 tablet by ity of 17:14: mouth. [address] insulin Yes inject [facility] aspart Soln 6-14 under the ity of injection 17:14: skin [place] 44 before Medical meals. Branch multivitami Yes 1{tbl} Take 1 [facility] tablet 6-14 tablet by ity of 17:14: mouth. [address] insulin Yes inject [facility] aspart Soln 6-14 under the ity of injection 17:14: skin [place] 44 before Medical meals. Branch multivitami Yes 1{tbl} Take 1 [facility] n tablet 6-14 tablet by ity of 17:14: mouth. [address] insulin Yes inject [facility] aspart Soln 6-14 under the ity of injection 17:14: skin [place] 44 before Medical meals. Branch multivitami Yes 1{tbl} Take 1 [facility] n tablet 6-14 tablet by ity of 17:14: mouth. [address] insulin Yes inject [facility] aspart Soln 6-14 under the ity of injection 17:14: skin [place] 44 before Medical meals. Branch multivitami Yes 1{tbl} Take 1 [facility] n tablet 6-14 tablet by ity of 17:14: mouth. [address] insulin Yes inject [facility] aspart Soln 6-14 under the ity of injection 17:14: skin [place] 44 before Medical meals. Branch multivitami Yes 1{tbl} Take 1 [facility] n tablet 6-14 tablet by ity of 17:14: mouth. [address] insulin Yes inject [facility] aspart Soln 6-14 under the ity of injection 17:14: skin [place] 44 before Medical meals. [place] multivitami Yes 1{tbl} Take 1 [facility] n tablet 6-14 tablet by ity of 17:14: mouth. [address] insulin Yes inject [facility] aspart Soln 6-14 under the ity of injection 17:14: skin [place] 44 before Medical meals. Branch multivitami Yes 1{tbl} Take 1 [facility] n tablet 6-14 tablet by ity of 17:14: mouth. [address] insulin Yes inject [facility] aspart Soln 6-14 under the ity of injection 17:14: skin [place] 44 before Medical meals. Branch multivitami Yes 1{tbl} Take 1 [facility] n tablet 6-14 tablet by ity of 17:14: mouth. [address] insulin Yes inject [facility] aspart Soln 6-14 under the ity of injection 17:14: skin [place] 44 before Medical meals. [place] insulin Yes [id number] 19U inject 19 [facility] glargine 6-14 Units ity of 100 unit/mL 00:00: under the [place] injection 00 skin at Medical bedtime. Branch insulin 2020-0 Yes [id number] 19U inject 19 [facility] glargine 6-14 Units ity of 100 unit/mL 00:00: under the [place] injection 00 skin at Medical bedtime. Branch insulin 2020-0 Yes [id number] 19U inject 19 [facility] glargine 6-14 Units ity of 100 unit/mL 00:00: under the [place] injection 00 skin at Medical bedtime. Branch insulin 2020-0 Yes [id number] 19U inject 19 [facility] glargine 6-14 Units ity of 100 unit/mL 00:00: under the [place] injection 00 skin at Medical bedtime. Branch insulin 2020-0 Yes [id number] 19U inject 19 [facility] glargine 6-14 Units ity of 100 unit/mL 00:00: under the [place] injection 00 skin at Medical bedtime. Branch insulin 2020-0 Yes [id number] 19U inject 19 [facility] glargine 6-14 Units ity of 100 unit/mL 00:00: under the [place] injection 00 skin at Medical bedtime. Branch insulin 2020-0 Yes [id number] 19U inject 19 [facility] glargine 6-14 Units [facility]y of 100 unit/mL 00:00: under the [place] injection 00 skin at Medical bedtime. Branch insulin 2020-0 Yes [id number] 19U inject 19 [facility] glargine 6-14 Units ity of 100 unit/mL 00:00: under the [place] injection 00 skin at Medical bedtime. Branch insulin 2020-0 Yes [id number] 19U inject 19 [facility] glargine 6-14 Units ity of 100 unit/mL 00:00: under the [place] injection 00 skin at Medical bedtime. Branch insulin 2020-0 Yes [id number] 19U inject 19 [facility] glargine 6-14 Units ity of 100 unit/mL 00:00: under the [place] injection 00 skin at Medical bedtime. Branch insulin 2020-0 Yes [id number] 19U inject 19 [facility] glargine 6-14 Units ity of 100 unit/mL 00:00: under the [place] injection 00 skin at Medical bedtime. Branch insulin 2020-0 Yes [id number] 19U inject 19 [facility] glargine 6-14 Units ity of 100 unit/mL 00:00: under the [place] injection 00 skin at Medical bedtime. Branch insulin 2020-0 Yes [id number] 19U inject 19 [facility] glargine 6-14 Units ity of 100 unit/mL 00:00: under the [place] injection 00 skin at Medical bedtime. Branch insulin 2020-0 Yes [id number] 19U inject 19 [facility] glargine 6-14 Units ity of 100 unit/mL 00:00: under the [place] injection 00 skin at Medical bedtime. Branch insulin 2020-0 Yes [id number] 19U inject 19 [facility] glargine 6-14 Units ity of 100 unit/mL 00:00: under the [place] injection 00 skin at Medical bedtime. Branch insulin 2020-0 Yes [id number] 19U inject 19 [facility] glargine 6-14 Units ity of 100 unit/mL 00:00: under the [place] injection 00 skin at Medical bedtime. Branch insulin 2020-0 Yes [id number] 19U inject 19 [facility] glargine 6-14 Units ity of 100 unit/mL 00:00: under the [place] injection 00 skin at Medical bedtime. Branch insulin 2020-0 Yes [id number] 19U inject 19 [facility] glargine 6-14 Units ity of 100 unit/mL 00:00: under the [place] injection 00 skin at Medical bedtime. Branch insulin 2020-0 Yes [id number] 19U inject 19 [facility] glargine 6-14 Units ity of 100 unit/mL 00:00: under the [place] injection 00 skin at Medical bedtime. Branch insulin 2020-0 Yes [id number] 19U inject 19 [facility] glargine 6-14 Units ity of 100 unit/mL 00:00: under the [place] injection 00 skin at Medical bedtime. Branch insulin 2020-0 Yes [id number] 19U inject 19 [facility] glargine 6-14 Units ity of 100 unit/mL 00:00: under the [place] injection 00 skin at Medical bedtime. Branch insulin 0 Yes [id number] 19U inject 19 [facility] glargine 6-14 Units ity of 100 unit/mL 00:00: under the [place] injection 00 skin at Medical bedtime. Branch insulin 2020-0 Yes [id number] 19U inject 19 [facility] glargine 6-14 Units ity of 100 unit/mL 00:00: under the [place] injection 00 skin at Medical bedtime. Branch insulin Yes [id number] 19U inject 19 [facility] glargine 6-14 Units ity of 100 unit/mL 00:00: under the [place] injection 00 skin at Medical bedtime. Branch insulin Yes [id number] 19U inject 19 [facility] glargine 6-14 Units ity of 100 unit/mL 00:00: under the [place] injection 00 skin at Medical bedtime. Branch insulin Yes [id number] 19U inject 19 [facility] glargine 6-14 Units ity of 100 unit/mL 00:00: under the [place] injection 00 skin at Medical bedtime. Branch insulin Yes [id number] 19U inject 19 [facility] glargine 6-14 Units ity of 100 unit/mL 00:00: under the [place] injection 00 skin at Medical bedtime. Branch insulin 0 Yes [id number] 19U inject 19 [facility] glargine 6-14 Units ity of 100 unit/mL 00:00: under the [place] injection 00 skin at Medical bedtime. Branch insulin Yes [id number] 19U inject 19 [facility] glargine 6-14 Units ity of 100 unit/mL 00:00: under the [place] injection 00 skin at Medical bedtime. [place] rivaroxaban 2020- No 2.5mg Q.5D Take 2.5 [facility] (Xarelto) 5-05 05-[address] 2.5 mg 18:48: 00:00 mouth 2 [facility]osp[facility] tablet 33 :00 (two) l tablet times a day. rivaroxaban 2020- No 2.5mg Q.5D Take 2.5 [facility] (Xarelto) 5-05 05-[address] 2.5 mg 13:48: 00:00 mouth 2 [facility]ospita tablet 33 :00 (two) l tablet times a day. rivaroxaban 2020-2020- No 2.5mg Q.5D Take 2.5 [facility] (XARELTO) 3-01 03-[address] 10 mg 21:59: 00:00 mouth 2 [facility]ospita tablet 12 :00 (two) l times a day. rivaroxaban 2020-2020- No 2.5mg Q.5D Take 2.5 [facility] (XARELTO) 3- 03-[address] 10 mg 15:59: 00:00 mouth 2 [facility]ospita tablet 12 :00 (two) l times a day. [place]DROcodone 2020-2020- [place] [id number] 1{tbl} Q6H Take 1 [facility] -acetaminop 2-10 - tablet by [facility] (PIPESTEM) 00:00: 05:59 mouth [facility] 5-325 mg 00 :00 every 6 l per tablet (six) hours as needed for moderate pain for up to 30 doses .acute pain. Max Daily Amount: 4 tablets HYDROcodone 2020-2020- [place] [id number] 1{tbl} Q6H Take 1 [facility] -acetaminop 2-10 - tablet by [facility] (PIPESTEM) 00:00: 05:59 mouth [facility] 5-325 mg 00 :00 every 6 l per tablet (six) hours as needed for moderate pain for up to 30 doses .acute pain. Max Daily Amount: 4 tablets multivitami 2020-2020- No 1{tbl} QD Take 1 M ethodi n 10-[address] (THERAGRAN) 19:24: 00:00 mouth [facility] tablet 03 :00 daily. l apixaban 2020-2020- No 5mg Q.5D Take 5 mg [facility] (Eliquis) 5 10-17 by mouth 2 s t mg tablet 19:22: 00:00 (two) Hospit a 08 :00 times a l day. HYDROCODONE 2020-2020- No Take by [facility] -ACETAMINOP -10-[address] [facility]AL 13:16: 00:00 Hospita 06 :00 l HYDROcodone 2020-2020- [place] [id number] 1{tbl} Q6H Take 1 [facility] -acetaminop 1-13 01-[address] [facility] ([email or web address]) 00:00: 05:59 mouth [facility] 5-325 mg 00 :00 every 6 l per tablet (six) hours as needed for moderate pain for up to 30 doses .acute pain. Max Daily Amount: 4 tablets HYDROcodone 2019-09 2020- No [id number] 1{tbl} Q6H Take 1 [facility] -acetaminop 0-14 10-[address] [facility] ([email or web address]) 00:00: 00:00 mouth [facility] 5-325 mg 00 :00 every 6 l per tablet (six) hours as needed for moderate pain for up to 30 doses .acute pain. Max Daily Amount: 4 tablets LORazepam 2019-09 Yes 1mg Take [address] [facility] (ATIVAN) 1 0-07 by [facility] tablet 14:56: every 6 Medic al 52 (six) Center hours as needed for Anxiety. multivitami 2019-09 Yes 1{tbl} QD Take [address] [facility] per 0-07 tablet by [facility] tablet 14:56: mouth Medical 52 daily. Center sevelamer 2019-09 Yes 800mg Q.[id number] Take [address] [facility] [address] (RENVELA) 0-07 [id number] mg by [facility] 800 mg 14:56: 3D mouth 3 Medical tablet 52 (three) Center times daily . insulin 2019-09 Yes 30U QD Inject [facility] aspart 0-07 30-60 [facility] U-100 14:56: Units Medical (NOVOLOG) 52 subcutaneo Cent er 100 unit/mL usly injection nightly. midodrine 2019-09 Yes 10mg Q.63217415 Take [address] [facility] (PROAMATINE 0-07 [id number] by mouth 3 [facility] ) 10 MG 14:56: 3D (three) Medical tablet 52 times Center daily. atorvastati 2019-09 Yes 40mg QD Take [address] [facility] n (LIPITOR) 0-07 by mouth [facility] 80 MG 14:56: daily . Medical tablet 52 Center LORazepam 2019-09 Yes 1mg Take [address] [facility] (ATIVAN) 1 0-07 by mouth [facility] tablet 14:56: every 6 Medic al 52 (six) Center hours as needed for Anxiety. multivitami 2019-09 Yes 1{tbl} QD Take [address] n per 0-07 tablet by [facility] tablet 14:56: mouth Medical 52 daily. [place] sevelamer 2019-09 Yes 800mg Q.81722998 Take [address] (RENVELA) 0-07 [id number] mg by [facility] 800 mg 14:56: 3D mouth 3 Medical tablet 52 (three) Center times daily . insulin 2019-09 Yes 30U QD Inject [facility] aspart 0-07 30-60 [facility] U-100 14:56: Units Medical (NOVOLOG) 52 subcutaneo Cent er 100 unit/mL usly injection nightly. midodrine 2019-09 Yes 10mg Q.[id number] Take [address] [facility] (PROAMATINE 0-07 [id number] by mouth 3 [facility] ) 10 MG 14:56: 3D (three) Medical tablet 52 times Center daily. atorvastati 2019-09 Yes 40mg QD Take [address] [facility] n (LIPITOR) 0-07 by mouth [facility] 80 MG 14:56: daily . Medical tablet 52 [place] LORazepam 2019-09 Yes 1mg Take [address] [facility] (ATIVAN) 1 0-07 by mouth [facility] tablet 14:56: every 6 Medic al 52 (six) Center hours as needed for Anxiety. multivitami 2019-09 Yes 1{tbl} QD Take [address] n per 0-07 tablet by [facility] tablet 14:56: mouth Medical 52 daily. [facility] 2019-09 Yes 800mg Q.[id number] Take [address] (RENVELA) 0-07 [id number] mg by [facility] 800 mg 14:56: 3D mouth 3 Medical tablet 52 (three) Center times daily . insulin 2019-09 Yes 30U QD Inject [facility] aspart 0-07 30-60 [facility] U-100 14:56: Units Medical (NOVOLOG) 52 subcutaneo Cent er 100 unit/mL usly injection nightly. midodrine 2019-09 Yes 10mg Q.[id number] Take [address] [facility] (PROAMATINE 0-07 [id number] by mouth 3 [facility] ) 10 MG 14:56: 3D (three) Medical tablet 52 times Center daily. atorvastati 2019-09 Yes 40mg QD Take [address] [facility] n (LIPITOR) 0-07 by mouth [facility] 80 MG 14:56: daily . Medical tablet 52 [place] atorvastati 2019-09 Yes 40mg QD Take [address] [facility] n (LIPITOR) 0-07 by mouth [facility] 80 MG 14:56: daily . Medical tablet 52 [place] LORazepam 2019-09 Yes 1mg Take [address] [facility] (ATIVAN) 1 0-07 by mouth [facility] tablet 14:56: every 6 Medic al 52 (six) Center hours as needed for Anxiety. multivitami 2019-09 Yes 1{tbl} QD Take [address] n per 0-07 tablet by [facility] tablet 14:56: mouth Medical 52 daily. [place] sevelamer 2019-09 Yes 800mg Q.[id number] Take [address] (RENVELA) 0-07 [id number] mg by [facility] 800 mg 14:56: 3D mouth 3 Medical tablet 52 (three) Center times daily . insulin 2019-09 Yes 30U QD Inject [facility] aspart 0-07 30-60 [facility] U-100 14:56: Units Medical (NOVOLOG) 52 subcutaneo Cent er 100 unit/mL usly injection nightly. midodrine 2019-09 Yes 10mg Q.42552369 Take [address] [facility] (PROAMATINE 0-07 [id number] by mouth 3 [facility] ) 10 MG 14:56: 3D (three) Medical tablet 52 times Center daily. thiamine 2019-09- No 50mg QD Take [address] (VITAMIN 0-06-23 by mouth [facility] B-1) 50 MG 11:52: 00:00 daily. Medi negrita tablet 25 :00 [place] senna-docus 2019-09 2020- No 2{tbl} QD Take [address] ate 0-06-23 tablets by [facility] (SENOKOT S) 11:51: 00:00 mouth Medi negrita 8.6-50 mg 47 :00 nightly. Center per tablet ondansetron 2019-09- No 4mg Take [address] [facility] (ZOFRAN) 4 0-06-23 by mouth [facility] MG tablet 11:51: 00:00 as needed Me dical 38 :00 for Center Nausea. INSULIN 2019-09- No Inject [facility] ASPART 0-06-23 [facility]o [facility] PROT/INSULN 11:50: 00:00 usly. Medi negrita ASP 45 :00 Center (INSULIN ASP PRT-INSULIN ASPART SUBQ) famotidine 2019-09- No 20mg Q.5D Take [address] [facility] (PEPCID) 20 0-06-23 by mouth 2 L ukes MG tablet 11:49: 00:00 (two) Medica l 51 :00 times Center daily. darbepoetin 2019-09- No 60ug Inject [address] [facility] ephraim-polyso 0-01 10- mcg [facility] rbate 11:49: 00:00 subcutaneo Medic al (ARANESP) 42 :00 usly once. Cent er 60 mcg/0.3 mL Syrg injection cloNIDine 2019-09- No .1mg Q.5D Take 0.[address] HCl 0-01 10- mg by Cristine (CATAPRES) 11:49: 00:00 mouth 2 Med ical 0.1 MG 25 :00 (two) Center tablet times daily . acetaminoph 2019-09- No 1{tbl} Take [address] en-codeine 006-23 tablet by [facility] (TYLENOL 11:48: 00:00 mouth Medical #3) 300-30 14 :00 every 4 Center mg per (four) tablet hours as needed for Pain. apixaban 2019- No [id number] 5mg Q.5D Take 1 [facility] di (ELIQUIS) 5 7-10 10-09 tablet (5 st mg tablet 00:00: 04:59 mg total) Ho spita 00 :00 by mouth 2 l (two) times a day for 90 days .blood clot in a deep vein of the extremitie s. apixaban 2019- No 5mg Q.5D Take [address] [facility] (ELIQUIS) 5 7-10 10-08 by mouth 2 L ukes mg Tab 00:00: 23:59 (two) Medical tablet 00 :00 times Center daily. VELPHORO 2018-09 Yes 1500mg Q.46471349 Chew 1,500 [facility] 500 mg 1-[id number] tablet,chew 00:00: 3D (three) Hos paul able 00 times a l day with meals. VELPHORO 2018-09 Yes 1500mg Q.28903875 Chew 1,500 [facility] 500 mg 1-[id number] tablet,chew 00:00: 3D (three) Hos paul able 00 times a l day with meals. VELPHORO 2018-09 Yes 1500mg Q.09410084 Chew 1,500 [facility] 500 mg 1-[id number] tablet,chew 00:00: 3D (three) Hos paul able 00 times a l day with meals. midodrine 2018-09 Yes 10mg Q.[id number] Take 10 mg [facility] (PROAMATINE -11 [id number] mouth 3 st ) 10 MG 00:00: 3D (three) Hospita tablet 00 times a l day. On days of dialysis midodrine 2018-09- No 10mg Q.[id number] Take 10 mg [facility] (PROAMATINE 1-11 -16 [id number] mouth 3 st ) 10 MG 00:00: 00:00 3D (three) Hospit a tablet 00 :00 times a l day. On days of dialysis atorvastati 2018-09 Yes 40mg QD Take 40 mg [facility] n (LIPITOR) 0-[address] 40 MG 00:00: nightly. Hospita tablet 00 l mirtazapine 2018-09 Yes 30mg QD Take 30 mg [facility] (REMERON) 0-[address] 30 MG 00:00: nightly. Hospita tablet 00 l sevelamer 2018-09 Yes 4{tbl} Q.97916652 Take 4 [facility] (RENVELA) 0-[id number] 800 mg 00:00: 3D mouth 3 Hospita tablet 00 (three) l times a day with meals. TAKE 2 TABS WITH EACH SNACK atorvastati 2018-09 Yes 40mg QD Take 40 mg [facility] n (LIPITOR) 0-[address] 40 MG 00:00: nightly. Hospita tablet 00 l mirtazapine 2018-09 Yes 30mg QD Take 30 mg [facility] (REMERON) 0-[address] 30 MG 00:00: nightly. Hospita tablet 00 l sevelamer 2018-09 Yes 3200mg Q.19102201 Take 3,200 [facility] (RENVELA) 0-[id number] 800 mg 00:00: 3D mouth 3 Hospita tablet 00 (three) l times a day with meals. atorvastati 2018-09 Yes 40mg QD Take 1 Meth marjan n (LIPITOR) 0-28 tablet (40 st 40 MG 00:00: mg total) Hospita tablet 00 by mouth l nightly. mirtazapine 2018-09 Yes 30mg QD Take 1 Meth marjan (REMERON) 0-28 tablet (30 st 30 MG 00:00: mg total) Hospita tablet 00 by mouth l nightly. sevelamer 2018-09 Yes 3200mg Q.[id number] Take 4 [facility] (RENVELA) 0-28 [id number] tablets s t 800 mg 00:00: 3D (3,200 mg Hospit a tablet 00 total) by l mouth 3 (three) times a day with meals. clonAZEPAM 2020- No 1{tbl} Q24H Take 1 [facility] (KlonoPIN) 10-[address] 1 MG tablet 00:00: 00:00 mouth [facility] 00 :00 daily as l needed. AMLODIPINE 2020- No 1{tbl} QD Take 1 [facility] BESYLATE, 10-[address] BULK, MISC 00:00: 00:00 mouth Hospi ta 00 :00 daily. l HYDROcodone 2019- No 1{tbl} Take [address] -acetaminop 10-13 tablet by Shanon castro (NORCO 00:00: 00:00 mouth Medic al 5-325) 00 :00 every 4 Center 5-325 mg (four) per tablet hours as needed. SPS, WITH 2020- No 60mg QD Take [address] SORBITOL, -06-23 by mouth [facility] 15-20 00:00: 00:00 daily. Medical gram/60 mL 00 :00 Center Susp mirtazapine Yes 1{tbl} QD Take [address] (REMERON 1-09 tablet by [facility] MARCO A-TAB) 30 00:00: mouth Medic al MG 00 nightly. Center disintegrat ing tablet mirtazapine Yes 1{tbl} QD Take [address] (REMERON 1-09 tablet by [facility] MARCO A-TAB) 30 00:00: mouth Medic al MG 00 nightly. [place] disintegrat ing tablet mirtazapine Yes 1{tbl} QD Take [address] (REMERON 1-09 tablet by [facility] MARCO A-TAB) 30 00:00: mouth Medic al MG 00 nightly. [place] disintegrat ing tablet mirtazapine Yes 1{tbl} QD Take [address] (REMERON 1-09 tablet by [facility] MARCO A-TAB) 30 00:00: mouth Medic al MG 00 nightly. [place] disintegrat ing tablet losartan 2019- No 50mg QD Take [address] (COZAAR) 50 09-30 by mouth [facility] MG tablet 00:00: 00:00 daily. Medic al 00 :00 [place] VELPHORO Yes 1{tbl} Q.[id number] Take [address] [facility] 500 mg Chew 1-01 [id number] tablet by [facility] 00:00: 3D mouth 3 Medical 00 (three) Center times daily WITH MEALS. VELPHORO Yes 1{tbl} Q.[id number] Take [address] [facility] 500 mg Chew 1-01 [id number] tablet by [facility] 00:00: 3D mouth 3 Medical 00 (three) Center times daily WITH MEALS. VELPHORO Yes 1{tbl} Q.[id number] Take [address] 500 mg Chew 1-01 [id number] tablet by [facility] 00:00: 3D mouth 3 Medical 00 (three) Center times daily WITH MEALS. VELPHORO Yes 1{tbl} Q.[id number] Take [address] [facility] 500 mg Chew 1-01 [id number] tablet by [facility] 00:00: 3D mouth 3 Medical 00 (three) Center times daily WITH MEALS. LANTUS 2017-09- No 10U QD Inject 10 [facility] SOLOSTAR 11-11 Units [facility] U-100 00:00: 00:00 subcutaneo Medic al INSULIN 100 00 :00 [facility] unit/mL (3 daily. mL) InPn metoprolol 2017-09 Yes 100mg Q.[id number] Take [address] (TOPROL-XL) 2-14 [id number] mg by L ukes 100 MG 24 00:00: 3D mouth 3 Medic al hr tablet 00 (three) Center times daily . metoprolol 2017-09 Yes 25mg Take [address] (TOPROL-XL) 2-14 by mouth Luke s 25 MG 24 hr 00:00: as needed M edical tablet 00 For Center hypertensi on post dialysis. metoprolol 2017-09 Yes 100mg Q.81649415 Take [address] (TOPROL-XL) 2-14 [id number] mg by L ukes 100 MG 24 00:00: 3D mouth 3 Medic al hr tablet 00 (three) Center times daily . metoprolol 2017-09 Yes 25mg Take 25 [facility] (TOPROL-XL) 2-14 by mouth Luke s 25 MG 24 hr 00:00: as needed M edical tablet 00 For Center hypertensi on post dialysis. metoprolol 2017-09 Yes 100mg [id number] Take [address] [facility] (TOPROL-XL) 2-14 [id number] mg by L ukes 100 MG 24 00:00: 3D mouth 3 Medic al hr tablet 00 (three) Center times daily . metoprolol 2017-09 Yes 25mg Take [address] (TOPROL-XL) 2-14 by mouth Luke s 25 MG 24 hr 00:00: as needed M edical tablet 00 For Center hypertensi on post dialysis. metoprolol 2017-09 Yes 100mg Q.[id number] Take [address] [facility] (TOPROL-XL) 2-14 [id number] mg by L ukes 100 MG 24 00:00: 3D mouth 3 Medic al hr tablet 00 (three) Center times daily . metoprolol 2017-09 Yes 25mg Take [address] (TOPROL-XL) 2-14 by mouth Luke s 25 MG 24 hr 00:00: as needed M edical tablet 00 For Center hypertensi on post dialysis. hydrALAZINE 2017-09 Yes 25mg Take [address] [facility] (APRESOLINE 2-06 by mouth Luke s ) 25 MG 00:00: as needed Medic al tablet 00 For SBP> Center 165. hydrALAZINE 2017-09 Yes 25mg Take [address] [facility] (APRESOLINE 2-06 by mouth Luke s ) 25 MG 00:00: as needed Medic al tablet 00 For SBP> Center 165. hydrALAZINE 2017-09 Yes 25mg Take [address] [facility] (APRESOLINE 2-06 by mouth Luke s ) 25 MG 00:00: as needed Medic al tablet 00 For SBP> Center 165. hydrALAZINE 2017-09 Yes 25mg Take [address] [facility] (APRESOLINE 2-06 by mouth Luke s ) 25 MG 00:00: as needed Medic al tablet 00 For SBP> Center 165. amLODIPine 2017-09 2020- No 5mg Q.5D Take [address] (NORVASC) 5 2-06 10 by mouth 2 L ukes MG tablet 00:00: 00:00 (two) Medica l 00 :00 times Center daily. mirtazapine 2017-09 Yes 30mg Take 1 Univ ers 30 mg 1-30 tablet by [facility] [place]. [facility] Branch mirtazapine 2017-09 Yes 30mg Take 1 Univ ers 30 mg 1-30 tablet by ity [facility] disintegrat [place] bedtime. Medic al Branch mirtazapine 2017-09 Yes 30mg Take 1 Univ ers 30 mg 1-30 tablet by ity [facility] dis[facility]at [place]: [place] 00 bedtime. Medic [facility] Branch mirtazapine 2017-09 Yes 30mg Take 1 Univ ers 30 mg 1-30 tablet by ity of disintegrat 00:[place]: [place] 00 bedtime. [facility] mirtazapine 2017-09 Yes 30mg Take 1 Univ ers 30 mg 1-30 tablet by ity [facility] dis[facility]at [place]: [place] 00 bedtime. [facility] mirtazapine 2017-09 Yes 30mg Take 1 Univ ers 30 mg 1-30 tablet by ity of disintegrat [place]: [place] bedtime. Medic al Branch mirtazapine 2017-09 Yes 30mg Take 1 Univ ers 30 mg 1-30 tablet by ity of disintegrat 00:[place]: [place] bedtime. Medic al Branch mirtazapine 2017-09 Yes 30mg Take 1 Univ ers 30 mg 1-30 tablet by ity of dis[facility]at [place]: [place] 00 bedtime. [facility] mirtazapine 2017- Yes 30mg Take 1 Univ ers 30 mg 1-30 tablet by ity of disintegrat 00:[place]: [place] 00 bedtime. [facility] mirtazapine 2017-09 Yes 30mg Take 1 Univ ers 30 mg 1-30 tablet by ity of disintegrat 00:[place]: [place] 00 bedtime. [facility] mirtazapine 2017- Yes 30mg Take 1 Univ ers 30 mg 1-30 tablet by ity of disintegrat 00:[place]: [place] 00 bedtime. [facility] mirtazapine 2017-09 Yes 30mg Take 1 Univ ers 30 mg 1-30 tablet by ity of dis[facility]at [place]: [place] 00 bedtime. [facility] mirtazapine 2017-09 Yes 30mg Take 1 Univ ers 30 mg 1-30 tablet by ity of disintegrat 00:[place]: [place] 00 bedtime. [facility] mirtazapine 2017-09 Yes 30mg Take 1 Univ ers 30 mg 1-30 tablet by ity of dis[place]at 00:[place]: [place] 00 bedtime. [facility] mirtazapine 2017-09 Yes 30mg Take 1 Univ ers 30 mg 1-30 tablet by ity of disintegrat 00:[place]: [place] 00 bedtime. [facility] mirtazapine 2017-09 Yes 30mg Take 1 Univ ers 30 mg 1-30 tablet by ity of disintegrat 00:[place]: [place] 00 bedtime. [facility] mirtazapine 2017-09 Yes 30mg Take 1 Univ ers 30 mg 1-30 tablet by ity of disintegrat 00:[place]: [place] 00 bedtime. [facility] mirtazapine 2017- Yes 30mg Take 1 Univ ers 30 mg 1-30 tablet by ity of disintegrat 00:[place]: [place] 00 bedtime. [facility] mirtazapine 2017-09 Yes 30mg Take 1 Univ ers 30 mg 1-30 tablet by ity of dis[facility]at 00:[place]: [place] 00 bedtime. [facility] mirtazapine 2017-09 Yes 30mg Take 1 Univ ers 30 mg 1-30 tablet by ity of dis[facility]at 00:[place]: [place] 00 bedtime. [facility] mirtazapine 2017- Yes 30mg Take 1 Univ ers 30 mg 1-30 tablet by ity of disintegrat 00:[place]: [place] 00 bedtime. [facility] mirtazapine 2017- Yes 30mg Take 1 Univ ers 30 mg 1-30 tablet by ity of disintegrat 00:[place]: [place] 00 bedtime. [facility] mirtazapine 2017- Yes 30mg Take 1 Univ ers 30 mg 1-30 tablet by ity of disintegrat 00:[place]: [place] 00 bedtime. [facility] mirtazapine 2017- Yes 30mg Take 1 Univ ers 30 mg 1-30 tablet by ity of disintegrat 00:[place]: [place] 00 bedtime. [facility] mirtazapine 2017- Yes 30mg Take 1 Univ ers 30 mg 1-30 tablet by ity of dis[place]at 00:[place]: [place] 00 bedtime. [facility] mirtazapine 2017- Yes 30mg Take 1 Univ ers 30 mg 1-30 tablet by ity of disintegrat 00:[place]: [place] 00 bedtime. [facility] mirtazapine 2017- Yes 30mg Take 1 Univ ers 30 mg 1-30 tablet by ity of disintegrat 00:[place]: [place] 00 bedtime. [facility] mirtazapine 2017- Yes 30mg Take 1 Univ ers 30 mg 1-30 tablet by ity of disintegrat 00:[place]: [place] 00 bedtime. [facility] mirtazapine 2017- Yes 30mg Take 1 Univ ers 30 mg 1-30 tablet by ity of disintegrat 00:[place]: [place] 00 bedtime. [facility] Immunizations Ordered Immunization Filled Immunization Date Status Commen ts Source Name Name [facility] 2021-07-03 Completed Confucianist 00:00:[address] [facility] 2021-07-03 Completed Confucianist 00:00:[address] [facility] 2021-07-02 Completed Confucianist 00:00:[address] [facility] 2021-07-02 Completed [facility] 00:[facility]00 [facility] 2021-07-01 Completed Confucianist 00:00:00 [facility] 2021-07-01 Completed Confucianist 00:00:00 [facility] 2021-06-30 Completed Confucianist 00:00:00 [facility] 2021-06-30 Completed Confucianist 00:00:00 [facility] 2021-06-29 Completed Confucianist 00:00:[facility]29 Completed Confucianist 00:00:00 [facility] Pneumococcal 2012-10-24 Completed Confucianist Polysaccharide 00:00:00 [facility] Pneumococcal 2012-10-24 Completed Confucianist Polysaccharide 00:00:00 Hospital Vital Signs Vital Name Observation Time Observation Value Comments Source HEIGHT 2020-06-23 00:00:00 193 cm WEIGHT 2020-06-23 00:00:00 151 kg Systolic blood 2023-05-23 18:21:00 129 mm[Hg] Univer sity of [facility] Diastolic blood 2023-05-23 18:21:00 83 mm[Hg] Unive rsity of pressure [facility] Heart rate 2023-05-23 18:21:00 110 /min Universi ty [facility] Body height 2023-05-23 18:21:00 193 cm Universi [facility] Body weight 2023-05-23 18:21:00 131.316 kg [facility] BMI 2023-05-23 18:21:00 35.24 kg/m2 [facility] Oxygen saturation in 2023-05-23 18:21:00 96 /min [facility] Arterial blood by [facility] Pulse oximetry Branch Systolic blood 2023-05-16 19:03:00 98 mm[Hg] Univer sity of pressure [facility] Diastolic blood 2023-05-16 19:03:00 66 mm[Hg] Unive rsity of pressure [facility] Heart rate 2023-05-16 19:03:00 104 /min Universi ty [facility] Body height 2023-05-16 19:03:00 193 cm [facility] Body weight 2023-05-16 19:03:00 129.184 [facility] 2023-05-16 19:03:00 34.67 kg/m2 [facility] Oxygen saturation in 2023-05-16 19:03:00 100 /min [facility] blood by [facility] Systolic blood 2023-03-28 14:29:00 128 mm[Hg] Univer sity of pressure [facility] Diastolic blood 2023-03-28 14:29:00 78 mm[Hg] Unive rsity of pressure [facility] Heart rate 2023-03-28 14:29:00 99 /min [facility] Body temperature 2023-03-28 14:29:00 37.11 Esther [facility] Respiratory rate 2023-03-28 14:29:00 20 /min Univ [facility] Body height 2023-03-28 14:29:00 193 cm [facility] Body weight 2023-03-28 14:29:00 126.4 kg [facility] BMI 2023-03-28 14:29:00 33.92 kg/m2 [facility] Oxygen saturation in 2023-03-28 14:29:00 99 /min [facility] Pulse oxim[facility] Branch Systolic blood 2023-02-14 19:59:00 126 mm[Hg] Univer sity of pressure [facility] Diastolic blood 2023-02-14 19:59:00 86 mm[Hg] Unive rsity of pressure [facility] Heart rate 2023-02-14 19:58:00 106 /min [facility] Body temperature 2023-02-14 19:58:00 37.67 Esther [facility] Body height 2023-02-14 19:58:00 193 cm [facility] Body weight 2023-02-14 19:58:00 127 kg [facility] BMI 2023-02-14 19:58:00 34.08 kg/m2 [facility] Oxygen saturation in 2023-02-14 19:58:00 97 /min [facility]ial blood by [place] [facility] Pulse oximetry Branch Systolic blood 2023-01-01 18:58:00 94 mm[Hg] Univer sity of pressure [facility] Diastolic blood 2023-01-01 18:58:00 73 mm[Hg] Unive rsity of pressure [facility] Heart rate 2023-01-01 18:58:00 93 /min Universi ty of [facility] Body temperature 2023-01-01 18:58:00 36.17 Esther [facility] [address] of [facility] Body height 2023-01-01 18:58:00 193 [address] [facility] Body weight 2023-01-01 18:58:00 130.636 kg [facility] [place] BMI 2023-01-01 18:58:00 35.06 kg/m2 Universi ty of [facility] Oxygen saturation in 2023-01-01 18:58:00 99 /min University of Arterial blood by [employer] Pulse oximetry Branch Heart rate 2022-05-18 16:49:00 74 /min Universi ty of [facility] Body height 2022-05-18 16:49:00 193 cm [facility] Body weight 2022-05-18 16:49:00 132.904 kg [facility] BMI 2022-05-18 16:49:00 35.67 kg/m2 Universi ty [facility] Oxygen saturation in 2022-05-18 16:49:00 97 /min University of Arterial blood by [employer] Pulse oximetry Branch HEIGHT 2020-06-23 00:00:00 193 cm WEIGHT 2020-06-23 00:00:00 151 kg HEIGHT 2020-05-04 00:00:00 193 cm WEIGHT 2020-05-04 00:00:00 156 kg HEIGHT 2020-05-04 00:00:00 193 cm WEIGHT 2020-05-04 00:00:00 156 kg Systolic blood 2023-05-29 15:30:00 132 mm[Hg] [facility] Di[facility] blood 2023-05-29 15:30:00 81 mm[Hg] [facility] pressure Heart rate 2023-05-29 15:30:00 91 /min [facility] Body temperature 2023-05-29 15:30:00 36.33 Esther [facility] Respiratory rate 2023-05-29 15:30:00 16 /min [facility] Oxygen saturation in 2023-05-29 15:30:00 98 /min [facility] Arterial blood by Pulse oximetry Body height 2023-05-29 11:37:00 193 cm [facility] Body weight 2023-05-29 11:37:00 128.141 kg [facility] BMI 2023-05-29 11:37:00 34.39 kg/m2 [facility] Systolic blood 2021-09-03 01:20:54 132 mm[Hg] [facility] pressure Diastolic blood 2021-09-03 01:20:54 83 mm[Hg] [facility] pressure Body temperature 2021-09-03 01:20:54 36.06 Esther [facility] Respiratory rate 2021-09-03 01:20:54 20 /min [facility] Heart rate 2021-09-03 00:15:00 103 /min [facility] Oxygen saturation in 2021-09-02 18:52:43 94 /min [facility] Arterial blood by Pulse oximetry Body height 2021-09-01 15:15:00 193 cm [facility] Body weight 2021-09-01 15:15:00 138.801 kg [facility] BMI 2021-09-01 15:15:00 37.25 kg/m2 [facility] Systolic blood 2021-05-01 15:48:00 146 mm[Hg] Method [facility] pressure Diastolic blood 2021-05-01 15:48:00 82 mm[Hg] [facility] pressure Heart rate 2021-05-01 15:48:00 94 /min [facility] Body temperature 2021-05-01 15:48:00 36.44 Esther [facility] Body height 2021-05-01 15:48:00 193 cm [facility] Body weight 2021-05-01 15:48:00 162.388 kg [facility] BMI 2021-05-01 15:48:00 43.58 kg/m2 [facility] Oxygen saturation in 2021-05-01 15:48:00 99 /min [facility] Arterial blood by Pulse oximetry Respiratory rate 2021-03-30 00:05:00 18 /min [facility] Systolic blood 2020-06-29 12:20:00 194 mm[Hg] [facility] Diastolic blood 2020-06-29 12:20:00 127 mm[Hg] [facility] Heart rate 2020-06-29 12:20:00 94 /min [facility] Respiratory rate 2020-06-29 12:20:00 25 /min [facility] Oxygen saturation in 2020-06-29 12:20:00 99 /min [facility] Arterial blood by Medical Ce nter Pulse oximetry Body temperature 2020-06-29 10:26:00 37.06 Esther [facility] Body height 2020-06-23 11:55:00 193 cm [facility] Body weight 2020-06-23 11:55:00 151 kg [facility] BMI 2020-06-23 11:55:00 40.52 kg/m2 [facility] Procedures Procedure Date / Time Performing Clinician Source Performed POC GLUCOSE 2023-05-29 15:05:00 [facility] [place] < 1 HOUR 2023-05-29 15:00:00 [facility] FISTULOGRAPHY, DIALYSIS 2023-05-29 13:25:00 [facility] SHUNT, AND DECLOTTING POC GLUCOSE 2023-05-29 13:18:00 [facility] XR CHEST 1 VW PORTABLE 2023-05-29 12:30:08 [facility] POC PANEL 2023-05-29 12:11:00 [facility] US DUPLEX HEMODIALYSIS AVG 2023-05-06 19:13:19 [facility] AVF ACCESS REFERRAL- REQUEST/RESPONSE 2023-04-30 05:01:00 Doctor Unassigned , No [facility] XR KNEE 3 VW LEFT 2023-03-28 16:14:[address] [facility] ASSIGNMENT OF BENEFITS 2023-03-28 15:35:35 Doctor Unassigned, No [facility] Medical Branch NOTICE OF PRIVACY 2023-03-28 14:23:39 Doctor Unassigned, No [facility] PRACTICES Name Medical Branch CONSENT/REFUSAL FOR 2023-03-28 14:22:37 Doctor Unassigned, No [facility] DIAGNOSIS AND TREATMENT Name [facility] COMPREHENSIVE METABOLIC 2023-02-16 20:57:00 Catina Noble [facility] PANEL Otto ESTIMATED GFR 2023-02-16 20:57:00 Catina Noble ospijena Menjivar DUPLEX VENOUS LOWER 2023-02-16 20:51:10 Dario Mays [facility] EXTREMITY LEFT [place] CBC WITH PLATELET AND 2023-02-16 20:05:00 Dario Mays [facility] DIFFERENTIAL [place] XR FOOT 3+ VW LEFT 2023-02-16 19:46:02 [facility] [place] ESTIMATED GFR 2023-02-16 19:32:00 Dario Mays [facility] [place] US RETROPERITONEAL LIMITED 2023-02-14 21:05:[address] [facility] CONSENT/REFUSAL FOR 2023-01-01 18:50:18 [facility] ASSIGNMENT OF BENEFITS 2023-01-01 18:49:46 Doctor Unassigned, No [facility] XR HIP 2-3 VIEWS RIGHT 2022-10-05 20:34:38 Raji, Attila [facility] XR HIP 2-3 VIEWS RIGHT 2022-08-23 23:20:40 Attila Canales [facility] US THYROID 2022-08-14 18:40:00 Maye Hui ospital Chitra POC GLUCOSE 2022-08-14 17:44:00 Alise Jackson Ho spital POC GLUCOSE 2022-08-14 16:29:00 Alise Jackson Ho spital PARATHYROID HORMONE 2022-08-14 10:43:00 Sarah Cespedes [facility] VITAMIN D 25 HYDROXY LEVEL 2022-08-14 10:43:00 Sarah Cespedes [facility] CBC WITH PLATELET AND 2022-08-14 10:43:00 Sarah Cespedes [facility] DIFFERENTIAL BASIC METABOLIC PANEL 2022-08-14 10:43:00 Sarah Cespedes [facility] ESTIMATED GFR 2022-08-14 10:43[facility]00 [facility] 12-LEAD 2022-08-14 07:49:03 [facility]OC GLU[facility]SE 2022-08-14 04:51:00 Rubina [facility] COVID-19 QUALITATIVE 2022-08-14 03:37:00 [facility] Otto CT PELVIS WO CONTRAST 2022-08-14 02:42:41 Rico [facility] Otto PROTHROMBIN TIME WITH INR 2022-08-14 02:39:00 Rico [facility] Otto PARTIAL THROMBOPLASTIN 2022-08-14 02:39:00 Rico [facility] TIME (PTT) Otto TYPE AND SCREEN 2022-08-14 02:39:00 Catina Noble drake Menjivar COMPREHENSIVE METABOLIC 2022-08-14 02:16:00 Catina Noble [facility] PANEL Otto CBC WITH PLATELET AND 2022-08-14 02:16:00 Rico [facility] DIFFERENTIAL Otto ESTIMATED GFR 2022-08-14 02:16:00 Catina Noble drake Menjivar US DUPLEX HEMODIALYSIS AVG 2021-09-13 21:34[facility]UPLEX ARTERIAL UPPER 2021-09-13 21:34[facility] HEMODIALYSIS 2021-09-02 21:43:49 Raji [facility] spital Jin HEPATITIS B SURFACE 2021-09-02 20:57:00 [facility] ANTIGEN Jin POC GLUCOSE 2021-09-02 18:53:00 [facility] 2021-09-02 14:28:00 [facility] HC COMPLETE BLD COUNT 2021-09-02 10:36:00 [facility]AUTO DIFF BASIC METABOLIC PANEL 2021-09-02 10:36:00 [facility] ESTIMATED GFR 2021-09-02 10:36:00 [facility] SMEAR REVIEW 2021-09-02 10:36:00 [facility] POC GLUCOSE 2021-09-02 03:11:00 [facility] POC GLUCOSE 2021-09-01 23:25:00 [facility] POC GLUCOSE 2021-09-01 21:09:00 [facility] ND AN ELECTIVE 2021-09-01 18:22:00 Jossie Aguilera [facility] ENDOTRACHEAL AIRWAY TRANSPOSITION, VEIN, 2021-09-01 17:41:00 [facility] BASILIC, SECOND OF 2 STAGES POC PANEL 2021-09-01 16:04:00 [facility] POC PANEL 2021-09-01 15:59:00 [facility] PROTHROMBIN TIME WITH INR, 2021-09-01 15:55:00 [facility] I-STAT POC GLUCOSE 2021-07-05 17:06:00 Wilder Millard Ho spital POC GLUCOSE 2021-07-05 13:02:00 Wilder Millard Ho spital HC COMPLETE BLD COUNT 2021-07-05 09:13:00 [facility] W/AUTO DIFF COMPREHENSIVE METABOLIC 2021-07-05 09:13:00 [facility] PANEL PROTHROMBIN TIME WITH INR 2021-07-05 09:13:00 Wilder Millard [facility] ESTIMATED GFR 2021-07-05 09:13:00 [facility] Confucianist Ho spital POC GLUCOSE 2021-07-05 01:08:00 [place] [facility] spital POC GLUCOSE 2021-07-04 22:06:00 [place] Ho spital POC GLUCOSE 2021-07-04 17:34:00 [place] Ho spital POC GLUCOSE 2021-07-04 13:21:00 [place] Ho spital PROTHROMBIN TIME WITH INR 2021-07-04 09:45:00 Morfin, [facility] HC COMPLETE BLD COUNT 2021-07-04 09:45:00 Kody [facility] W/AUTO DIFF COMPREHENSIVE METABOLIC 2021-07-04 09:45:00 Kody [facility] PANEL PARTIAL THROMBOPLASTIN 2021-07-04 09:45:00 [facility] ([facility]TT[facility] ESTIMATED GFR 2021-07-04 09:45:00 Lang Elidia Villavicencio Ho spital HEMODIALYSIS 2021-07-04 09:32:36 OmitogunRamana Ho spital Jin MRI THIGH WO CONTRAST LEFT 2021-07-04 06:30:00 Usman Cruz [facility] POC GLUCOSE 2021-07-04 02:36:00 [place], Wilder Jamesist Ho spital POC GLUCOSE 2021-07-04 00:10:00 [place], Wilder Confucianist Ho spital POC GLUCOSE 2021-07-03 23:02:00 [place], Wilder Confucianist Ho spital POC GLUCOSE 2021-07-03 17:29:00 [place], Wilder Confucianist Ho spital POC GLUCOSE 2021-07-03 13:00:00 [place], Wilder Villavicencio Ho spital AST (SGOT) 2021-07-03 11:42:00 Lang, Elidia Villavicencio Ho spital ALT (SGPT) 2021-07-03 11:42:00 Lang, Elidia Villavicencio Ho spital POTASSIUM LEVEL 2021-07-03 11:42:00 Lang Elidia Villavicencio Ho spital POC GLUCOSE 2021-07-03 11:28:00 [place], Wilder Villavicencio Ho spital PARTIAL THROMBOPLASTIN 2021-07-03 10:36:00 Kody [facility] TIME (PTT) PROTHROMBIN TIME WITH INR 2021-07-03 10:36:00 Kody [facility] PROTHROMBIN TIME WITH INR 2021-07-03 08:55:00 Navjot [facility] VANCOMYCIN LEVEL, RANDOM 2021-07-03 08:55:00 [place] [facility] PARTIAL THROMBOPLASTIN 2021-07-03 08:55:00 [place] [facility] TIME (PTT) CBC WITH PLATELET AND 2021-07-03 08:55:00 [facility] DIFFERENTIAL COMPREHENSIVE METABOLIC 2021-07-03 08:55:00 Lang, [facility] PANEL ESTIMATED GFR 2021-07-03 08:55:00 Les Langchita Confucianist Ho spital MANUAL DIFFERENTIAL 2021-07-03 08:55:00 [facility] POC GLUCOSE 2021-07-03 02:09:00 [place], Wilder Confucianist Ho spital POC GLUCOSE 2021-07-02 22:53:00 [place], Delmijeffrey Confucianist Ho spital POC GLUCOSE 2021-07-02 17:39:00 [place], Delmijeffrey Jamesist Ho spital PARTIAL THROMBOPLASTIN 2021-07-02 13:28:00 [place], [facility] TIME (PTT) PROTHROMBIN TIME WITH INR 2021-07-02 13:28:00 [place], [facility] POC GLUCOSE 2021-07-02 12:52:00 [place], Wilder Confucianist Ho spital PROTHROMBIN TIME WITH INR 2021-07-02 06:47:00 [facility] 2021-07-02 06:47:00 [place], [facility] TIME (PTT) POC GLUCOSE 2021-07-02 01:08:00 [place], Wilder Confucianist Ho spital PARTIAL THROMBOPLASTIN 2021-07-01 22:58:00 [place], [facility] TIME (PTT) POC GLUCOSE 2021-07-01 22:57:00 [place], Wilder Confucianist Ho spital HEMODIALYSIS 2021-07-01 18:57:50 Viviana Del Rio Ho spital Srinath POC GLUCOSE 2021-07-01 17:02:00 [place], Delmijeffrey Confucianist Ho spital POC GLUCOSE 2021-07-01 13:23:00 [place], Delmijeffrey Jamesist Ho spital HC COMPLETE BLD COUNT 2021-07-01 11:18:00 Kolby Morfin [facility] W/AUTO DIFF COMPREHENSIVE METABOLIC 2021-07-01 11:18:00 Morfin, [facility] PANEL LACTIC ACID LEVEL 2021-07-01 11:18:00 Navjot [facility] PROTHROMBIN TIME WITH INR 2021-07-01 11:18[facility], RANDOM 2021-07-01 11:18:00 [place] [facility] ESTIMATED GFR 2021-07-01 11:18:00 [place], jeffrey Villavicencio Ho spital PARTIAL THROMBOPLASTIN 2021-07-01 02:51:00 [place], [facility] TIME (PTT) POC GLUCOSE 2021-07-01 02:03:00 [place], [facility]ucian[facility] Ho spital POC GLUCOSE 2021-07-01 00:24:00 [place], [facility] POC GLUCOSE 2021-06-30 22:50:00 [place], [facility] PARTIAL THROMBOPLASTIN 2021-06-30 17:21:00 [place], [facility] TIME (PTT) POC GLUCOSE 2021-06-30 17:09:00 [place], [facility] POC GLUCOSE 2021-06-30 14:06:00 [place], [facility] Ho spital COMPREHENSIVE METABOLIC 2021-06-30 07:18:00 Navjot [facility] PANEL PROTHROMBIN TIME WITH INR 2021-06-30 07:18:00 [facility] CBC WITH PLATELET AND 2021-06-30 07:18:00 NavjotFormerly [facility] DIFFERENTIAL LACTIC ACID LEVEL 2021-06-30 07:18[facility] CREATINE KINASE, TOTAL 2021-06-30 07:18:00 [facility] VANCOMYCIN LEVEL, RANDOM 2021-06-30 07:18:00 [facility] Evelio PARTIAL THROMBOPLASTIN 2021-06-30 07:18:00 [facility] TIME (PTT) Evelio ESTIMATED GFR 2021-06-30 07:18:00 [place], Wilder Villavicencio Ho spital POC GLUCOSE 2021-06-30 02:18:00 Wilder Millard Ho spital US EXTREMITY LIMITED LEFT 2021-06-29 23:15:00 Steven Chappell Jt srivastava [facility] POC GLUCOSE 2021-06-29 22:57:00 [place] iWlder Villavicencio Ho spital MRA NECK WO CONTRAST 2021-06-29 22:21:09 Gretel [facility] MRA HEAD WO CONTRAST 2021-06-29 22:01:02 Gretel, [facility] MRI BRAIN WO CONTRAST 2021-06-29 22:00:47 Gretel [facility] MRSA PCR 2021-06-29 18:01:00 Dylan Crowell [facility] Evelio POC GLUCOSE 2021-06-29 16:07:00 Wilder Millard Ho spital HEMODIALYSIS 2021-06-29 14:03:10 Viviana Del Rio spital Srinath POC GLUCOSE 2021-06-29 12:51:00 Wilder Millard spital XR CHEST 1 VW PORTABLE 2021-06-29 11:56:00 Sumeet [facility] POC GLUCOSE 2021-06-29 09:26:00 Wilder Millard spital ARTERIAL BLOOD GAS 2021-06-29 08:47:00 [facility] COMPREHENSIVE METABOLIC 2021-06-29 07:46:00 Kolby Morfin [facility] PANEL PROTHROMBIN TIME WITH INR 2021-06-29 07:46:00 Kolby Morfin [facility] CBC WITH PLATELET AND 2021-06-29 07:46:00 Kolby Morfin [facility] DIFFERENTIAL VANCOMYCIN LEVEL, RANDOM 2021-06-29 07:46:00 Miracle Ulloa [facility] Vivienne LACTIC ACID LEVEL 2021-06-29 07:46:00 Kolby Morfin [facility] MAGNESIUM LEVEL 2021-06-29 07:46:00 [facility] PHOSPHORUS LEVEL 2021-06-29 07:46:00 [facility] AMMONIA LEVEL 2021-06-29 07:46:00 [facility] ESTIMATED GFR 2021-06-29 07:46:00 Elidia Lang spital MANUAL DIFFERENTIAL 2021-06-29 07:46:00 [place] [facility] CLOSTRIDIUM DIFFICILE 2021-06-29 07:00:00 Odell Farias [facility] TOXIN [facility] ENTERIC VIRAL PANEL 2021-06-29 07:00:00 Odell [facility] ENTERIC BACTERIAL PANEL 2021-06-29 07:00:00 [facility] POC GLUCOSE 2021-06-29 05:08:00 [place], [facility] CREATINE KINASE, TOTAL 2021-06-29 03:36:00 [place] [facility] (CPK) POTASSIUM LEVEL 2021-06-29 03:36:00 [place], [facility] ALT (SGPT) 2021-06-29 03:36:00 [place], [facility] LDH 2021-06-29 03:36:00 [place], [facility] AST (SGOT) 2021-06-29 03:36:00 [place], [facility] spital ALKALINE PHOSPHATASE 2021-06-29 03:36:00 [place] [facility] ECG 12-LEAD 2021-06-29 03:03:[facility] WITH PLATELET AND 2021-06-29 02:01:00 NavjotFormerly [facility] DIFFERENTIAL COMPREHENSIVE METABOLIC 2021-06-29 02:01:00 Kolby Morfin [facility] PANEL PROTHROMBIN TIME WITH INR 2021-06-29 02:01:00 [facility] PARTIAL THROMBOPLASTIN 2021-06-29 02:01:00 Kolby Morfin [facility] TIME (PTT) TROPONIN 2021-06-29 02:01:00 [facility] B NATRIURETIC PEPTIDE 2021-06-29 02:01:00 [facility]otFormerly [facility] MYOGLOBIN 2021-06-29 02:01:00 Navjot [facility] PROCALCITONIN 2021-06-29 02:01:00 [facility] CREATINE KINASE, TOTAL 2021-06-29 02:01:00 [facility] (CPK) C-REACTIVE PROTEIN 2021-06-29 02:01:00 [facility] INTERLEUKIN 6 2021-06-29 02:01:00 [facility] FERRITIN LEVEL 2021-06-29 02:01:00 [facility] D-DIMER 2021-06-29 02:01:00 [facility] LDH 2021-06-29 02:01:00 [facility] TRIGLYCERIDES 2021-06-29 02:01:00 [facility] FIBRINOGEN 2021-06-29 02:01:00 [facility] TYPE AND SCREEN 2021-06-29 02:01:00 [facility] LACTIC ACID LEVEL 2021-06-29 02:01:00 Eusebio Cazares [facility] BETA HYDROXYBUTYRATE 2021-06-29 02:01:00 Eusebio Cazares [facility] VENOUS BLOOD GAS 2021-06-29 02:01:00 Odell [facility] [place] [facility] ESTIMATED GFR 2021-06-29 02:01:00 Wilder Millard spital MANUAL DIFFERENTIAL 2021-06-29 02:01:00 [place] [facility] ARTERIAL BLOOD GAS 2021-06-29 01:24:00 Chandni Fay [facility] POC GLUCOSE 2021-06-29 01:07:00 Wilder Millard spital XR CHEST 1 VW PORTABLE 2021-06-29 00:30:12 [facility] POC GLUCOSE 2021-06-28 23:17:00 Wilder Millard spital POC GLUCOSE 2021-06-28 22:35:00 Wilder Millard spital POC GLUCOSE 2021-06-28 22:08:00 Wilder Millard spital US DUPLEX VENOUS LOWER 2021-06-28 20:20:00 Crum, Alana [facility] EXTREMITY BILATERAL TROPONIN 2021-06-28 16:54:00 [facility] HC COMPLETE BLD COUNT 2021-06-28 16:54:00 [facility] W/AUTO DIFF LACTIC ACID LEVEL 2021-06-28 16:54:00 [facility] POC GLUCOSE 2021-06-28 16:18:00 [place] [facility] spital POC GLUCOSE 2021-06-28 12:39:00 [place], [facility] spital GASTROINTESTINAL PANEL 2021-06-28 11:07:00 [facility] Vivienne XR CHEST 1 VW PORTABLE 2021-06-28 10:13:22 [facility] POC GLUCOSE 2021-06-28 09:44:00 [place] [facility] QUALITATIVE 2021-06-28 09:09:00 [facility] RT-PCR LACTIC ACID LEVEL 2021-06-28 08:33:00 [facility] TROPONIN 2021-06-28 08:33:00 victorina [facility] Vivienne HEPARIN PF4 ANTIBODY (IGG) 2021-06-28 08:31:00 [facility] VENOUS BLOOD GAS 2021-06-28 07:57:00 [facility] BLOOD CULTURE, AEROBIC & 2021-06-28 05:41:00 [facility] A[facility]IC Vivienne LACTIC ACID LEVEL 2021-06-28 05:36:00 [facility] Vivienne MAGNESIUM LEVEL 2021-06-28 05:36:00 [facility] Vivienne PROCALCITONIN 2021-06-28 05:36:00 [facility] Vivienne COMPREHENSIVE METABOLIC 2021-06-28 05:36:00 [facility]ina [facility] PANEL Vivienne HC COMPLETE BLD COUNT 2021-06-28 05:36:00 [facility] W/AUTO DIFF Vivienen B NATRIURETIC PEPTIDE 2021-06-28 05:36:00 Miracle Ulloa [facility] Vivienne PARTIAL THROMBOPLASTIN 2021-06-28 05:36:00 victorina Josh [facility] TIME (PTT) Vivienne PROTHROMBIN TIME WITH INR 2021-06-28 05:36:00 [facility] Viv[facility] FIBRINOGEN 2021-06-28 05:36:00 [facility]ina [facility] Vivienne ESTIMATED GFR 2021-06-28 05:36:00 victorina [facility] Vivienne ECG 12-LEAD 2021-06-28 05:28:29 victorina [facility] Vivienne POC GLUCOSE 2021-06-28 04:26:00 [place]Wilder spital TTE COMPLETE, W CONTRAST, 2021-06-28 03:00:00 Shreya [facility] W DOPPLER ([id number]) POC GLUCOSE 2021-06-28 02:02:00 [place]Wilder spital POC GLUCOSE 2021-06-27 22:57:00 VeniceWilder spital POC GLUCOSE 2021-06-27 22:33:00 [place]Wilder spital HEPATITIS B SURFACE 2021-06-27 17:47:00 [facility] ANTIGEN Srinath HEMODIALYSIS 2021-06-27 16:44:05 [facility] Srinath PARTIAL THROMBOPLASTIN 2021-06-27 14:08:[address] [facility] TIME (PTT) PROTHROMBIN TIME WITH INR 2021-06-27 14:08:00 [facility] LIPID PANEL 2021-06-27 10:45:00 Gretel Hardysangeeta [facility] HOMOCYSTINE, PLASMA 2021-06-27 10:45:00 [facility] FOLATE LEVEL 2021-06-27 10:45:00 Que Hardysangeeta [facility] VITAMIN B12 LEVEL 2021-06-27 10:45:00 [facility]AB COMBINATION 2021-06-27 10:45:00 OzelHardy [facility] SYPHILIS TREPONEMA SCREEN 2021-06-27 10:45:00 [facility] WITH RPR CONFIRMATION (REVERSE ALGORITHM) PROTHROMBIN TIME WITH INR 2021-06-27 10:31:00 [facility] PARTIAL THROMBOPLASTIN 2021-06-27 10:31:00 [facility] TIME (PTT) HC COMPLETE BLD COUNT 2021-06-27 10:26:00 [facility] W/AUTO DIFF BASIC METABOLIC PANEL 2021-06-27 10:26:00 [facility] MAGNESIUM LEVEL 2021-06-27 10:26:00 [facility] THYROID STIMULATING 2021-06-27 10:26:00 [facility] HORMONE T4, FREE 2021-06-27 10:26:00 [facility] CREATINE KINASE, TOTAL 2021-06-27 10:26:00 [facility] (CPK) B NATRIURETIC PEPTIDE 2021-06-27 10:26:00 [facility] HEPATIC FUNCTION PANEL 2021-06-27 10:26:00 [facility] C-REACTIVE PROTEIN 2021-06-27 10:26:00 [facility] SEDIMENTATION RATE 2021-06-27 10:26:00 [facility] HEMOGLOBIN A1C 2021-06-27 10:26:00 [facility] TROPONIN 2021-06-27 10:26:00 [facility] ESTIMATED GFR 2021-06-27 10:26:[address] CHEST WO CONTRAST 2021-06-27 06:23:11 [address] [facility] CT HEAD WO CONTRAST 2021-06-27 06:22:[address] [facility] BLOOD CULTURE, AEROBIC & 2021-06-27 05:42:00 Mireya Thacker [facility] ANAEROBIC BLOOD CULTURE, AEROBIC & 2021-06-27 05:19:00 Cabrera [facility] ANAEROBIC RESPIRATORY PATHOGEN PANEL 2021-06-27 05:19:00 Cabrera [facility] WITH COVID-19 RT-PCR VENOUS BLOOD GAS 2021-06-27 05:19:00 Kirstie Mireyaaugustin Petit ospital LACTIC ACID LEVEL, SEPSIS 2021-06-27 05:19:00 Cabrera [facility] - NOW AND REPEAT 2X EVERY 3 HOURS TROPONIN 2021-06-27 05:19:00 Kirstie Mireyaaugustin Villavicencio spital ECG 12-LEAD 2021-06-27 04:51:34 Mireya Thacker spital HC COMPLETE BLD COUNT 2021-06-27 04:02:00 Cabrera [facility] W/AUTO DIFF BASIC METABOLIC PANEL 2021-06-27 04:02:00 Cabrera [facility] LACTIC ACID LEVEL, SEPSIS 2021-06-27 04:02:00 Kirstie [facility] - NOW AND REPEAT 2X EVERY 3 HOURS MAGNESIUM LEVEL 2021-06-27 04:02:00 Mireya Thacker spital TROPONIN 2021-06-27 04:02:00 Mireya Thacker spital B NATRIURETIC PEPTIDE 2021-06-27 04:02:00 Cabrera [facility] WHOLE BLOOD ELECTROLYTES 2021-06-27 04:02:00 Cabrera [facility] ESTIMATED GFR 2021-06-27 04:02:00 Mireya Thacker spital XR CHEST 1 VW PORTABLE 2021-06-27 03:40:[address] [facility] POC GLUCOSE 2021-06-13 17:37:00 Eduardo Agudelo spital Akil POC GLUCOSE 2021-06-13 13:53:00 Eduardo Agudelo spital Akil PROTHROMBIN TIME WITH INR 2021-06-13 06:52:00 Eduardo Agudelo [facility] Akil VANCOMYCIN LEVEL, RANDOM 2021-06-13 06:51:00 Beatriz Hardy [facility] C-REACTIVE PROTEIN 2021-06-13 06:22:00 [facility] PROCALCITONIN 2021-06-13 06:22:00 LeydiKarla Confucianist Ho spital ESTIMATED GFR 2021-06-13 06:22:00 MayradawiliamKarla Confucianist Ho spital BASIC METABOLIC PANEL 2021-06-13 06:22:00 [facility] POC GLUCOSE 2021-06-13 01:59:00 Eduardo Agudelo Ho spital Akil POC GLUCOSE 2021-06-12 23:38:00 Eduardo Agudelo Ho spital Akil POC GLUCOSE 2021-06-12 17:04:00 Eduardo Agudelo Ho spital Akil POC GLUCOSE 2021-06-12 13:06:00 Eduardo Agudelo spital Akil PROTHROMBIN TIME WITH INR 2021-06-12 11:17:00 [facility] Akil BASIC METABOLIC PANEL 2021-06-12 11:17:00 [facility] Akil HC COMPLETE BLD COUNT 2021-06-12 11:17:00 [facility] W/AUTO DIFF Akil ESTIMATED GFR 2021-06-12 11:17:00 Eduardo Agudelo Ho spital Akil HEMODIALYSIS 2021-06-12 05:06:49 Viviana Del Rio Ho spital Srinath POC GLUCOSE 2021-06-11 23:25:00 Eduardo [address] spital [place] CT LOWER EXTREMITY W WO 2021-06-11 17:47:[address] [facility] CONTRAST LEFT Akil POC GLUCOSE 2021-06-11 17:43:00 Eduardo Agudelo Ho spital Akil POC GLUCOSE 2021-06-11 12:51:00 Eduardo Agudelo spital Akil PROTHROMBIN TIME WITH INR 2021-06-11 09:39:00 [facility] Akil BASIC METABOLIC PANEL 2021-06-11 09:39:00 [facility] Akil HC COMPLETE BLD COUNT 2021-06-11 09:39:00 [facility] W/AUTO DIFF Akil ESTIMATED GFR 2021-06-11 09:39:00 Eduardo Agudelo Ho spital Akil POC GLUCOSE 2021-06-11 02:41:00 Eduardo Agudelo Ho spital Akil HEMODIALYSIS 2021-06-10 15:08:45 AbdiasnormadanniViviana mcdonald Confucianist Ho spital Srinath HC COMPLETE BLD COUNT 2021-06-10 14:00:00 [facility] W/AUTO DIFF Akil POC GLUCOSE 2021-06-10 13:12:00 Eduardo Agudelo Ho spital Akil BASIC METABOLIC PANEL 2021-06-10 10:11:00 [facility] Akil CBC WITH PLATELET AND 2021-06-10 10:11:00 [facility] DIFFERENTIAL Akil PROTHROMBIN TIME WITH INR 2021-06-10 10:11:[address] [facility] Akil ESTIMATED GFR 2021-06-10 10:11:00 Eduardo Agudelo Ho spital Akil POC GLUCOSE 2021-06-10 02:44:00 Eduardo Agudelo Ho spital Akil POC GLUCOSE 2021-06-09 23:04:00 Eduardo Agudelo Ho spital Akil POC GLUCOSE 2021-06-09 19:03:00 Eduardo Agudelo Ho spital Akil POC GLUCOSE 2021-06-09 17:48:00 Eduardo Agudelo Ho spital Akil POC GLUCOSE 2021-06-09 13:13:00 Eduardo Agudelo spital Akil PROTHROMBIN TIME WITH INR 2021-06-09 10:29:00 [facility] Akil BASIC METABOLIC PANEL 2021-06-09 10:29:00 [facility] Akil HC COMPLETE BLD COUNT 2021-06-09 10:29:00 [facility] W/AUTO DIFF Akil ESTIMATED GFR 2021-06-09 10:29:00 Eduardo Agudelo Ho spital Aikl POC GLUCOSE 2021-06-09 02:20:00 Eduardo Agudelo Ho spital Akil POC GLUCOSE 2021-06-08 22:55:00 Eduardo Agudelo spital Akil COVID-19 ANTI-SPIKE IGG 2021-06-08 19:46:00 [facility] ANTIBODY TITER Akil COVID-19 SEROLOGY PATIENT 2021-06-08 19:46:00 [facility] Akil HEMOGLOBIN A1C 2021-06-08 19:46:00 Eduardo Agudelo spital Akil ULTRAFILTRATION 2021-06-08 17:48:23 Eduardo [facility]udeloHunterdon Medical Centertal Akil HEPATITIS B SURFACE 2021-06-08 14:11:00 Viviana Del Rio [facility] ANTIGEN Srinath HEMODIALYSIS 2021-06-08 11:38:58 [facility]mer[facility] central[facility] Srinath TROPONIN 2021-06-08 09:32:00 [facility] LACTIC ACID LEVEL, SEPSIS 2021-06-08 09:32:00 [facility] - NOW AND REPEAT 2X EVERY 3 HOURS TROPONIN 2021-06-08 05:43:00 [facility] LACTIC ACID LEVEL, SEPSIS 2021-06-08 05:43:00 [facility] - NOW AND REPEAT 2X EVERY 3 HOURS US DUPLEX VENOUS LOWER 2021-06-08 03:19:00 [facility] EXTREMITY BILATERAL COVID-19 QUALITATIVE 2021-06-08 03:17:00 [facility] RT-PCR VENOUS BLOOD GAS 2021-06-08 03:00:00 [facility] XR CHEST 1 VW PORTABLE 2021-06-08 02:33:00 [facility] HC COMPLETE BLD COUNT 2021-06-08 02:09:00 [facility] W/AUTO DIFF PROTHROMBIN TIME WITH INR 2021-06-08 02:09:00 [facility] PARTIAL THROMBOPLASTIN 2021-06-08 02:09:00 [facility] TIME (PTT) B NATRIURETIC PEPTIDE 2021-06-08 02:09:00 Clement Rodney [facility] TROPONIN 2021-06-08 02:09:00 Chencho [facility] COMPREHENSIVE METABOLIC 2021-06-08 02:09:00 [facility] PANEL PHOSPHORUS LEVEL 2021-06-08 02:09:00 Rashaun [facility] MAGNESIUM LEVEL 2021-06-08 02:09:[address] [facility] LACTIC ACID LEVEL, SEPSIS 2021-06-08 02:09:00 Rashaun [facility] - NOW AND REPEAT 2X EVERY 3 HOURS ESTIMATED GFR 2021-06-08 02:09:00 [facility] ECG 12-LEAD 2021-06-08 01:46:45 [facility] POC GLUCOSE 2021-06-02 20:26:00 [facility] [place] > 1 HOUR 2021-06-02 19:57:00 [facility] INSERTION, CATHETER, 2021-06-02 18:31:00 [facility] CENTRAL VENOUS, TUNNELED, FOR HEMODIALYSIS POC PANEL 2021-06-02 17:46:00 [facility] PROTHROMBIN TIME WITH INR, 2021-06-02 17:43:00 [facility] I-STAT POC GLUCOSE 2021-05-31 14:22:00 [facility] [place] < 1 HOUR 2021-05-31 14:00:00 [facility] FISTULOGRAPHY, DIALYSIS 2021-05-31 13:00:00 [facility] SHUNT, AND DECLOTTING ECG 12-LEAD 2021-05-31 12:50:11 [facility] POC PANEL 2021-05-31 12:37:00 [facility] PROTHROMBIN TIME WITH INR, 2021-05-31 12:34:00 [facility] I-STAT HC COMPLETE BLD COUNT 2021-03-30 20:08:00 [facility] W/AUTO DIFF BASIC METABOLIC PANEL 2021-03-30 20:08:00 [facility] PROTHROMBIN TIME WITH INR 2021-03-30 20:08:00 [facility] ESTIMATED GFR 2021-03-30 20:08:00 [facility] TH[facility]LASTIN 2021-03-30 20:08:00 [facility] TIME (PTT) SMEAR REVIEW 2021-03-30 20:08:00 [facility] ECG 12-LEAD 2021-03-30 19:35:05 [facility] US DUPLEX HEMODIALYSIS AVG 2021-03-30 18:48:10 Misti [facility] AVF ACCESS POC GLUCOSE 2021-03-29 23:32:00 [facility], AV FISTULA 2021-03-29 21:06:00 [facility] XR CHEST 1 VW PORTABLE 2021-03-29 20:18:00 [facility] E. ND AN PERIPHERAL BLOCK 2021-03-29 19:50:14 [facility] PROCEDURE FOR PAIN E. PROTHROMBIN TIME WITH INR, 2021-03-29 18:43:00 [facility] I-STAT POC PANEL 2021-03-29 18:38:00 [facility] US VEIN MAPPING LOWER 2021-03-17 20:14:42 [facility] EXTREMITY BILATERAL US ANKLE BRACHIAL INDEX 2021-03-17 19:11:31 [facility] US VEIN MAPPING UPPER 2021-03-17 19:11:16 [facility] EXTREMITY BILATERAL POC GLUCOSE 2021-03-15 22:09:00 [facility] IR BILATERAL LOWER 2021-03-15 21:34:00 [facility] EXTREMITY VENOGRAM IR BILATERAL LOWER 2021-03-15 21:34:00 [facility] EXTREMITY ARTERIOGRAM POC GLUCOSE 2021-03-15 17:08:00 [facility] PARTIAL THROMBOPLASTIN 2021-03-15 14:54:00 Ori Munguia [facility] TIME (PTT) Rule PROTHROMBIN TIME WITH INR 2021-03-15 14:54:00 Ori Munguia [facility]ron BASIC METABOLIC PANEL 2021-03-15 14:54:00 [facility] COMPLETE BLD COUNT 2021-03-15 14:54:00 [facility] W/AUTO DIFF ESTIMATED GFR 2021-03-15 14:54:00 [facility] SMEAR REVIEW 2021-03-15 14:54:00 [facility] IR BILATERAL UPPER 2021-03-08 22:48:00 [facility] EXTREMITY VENOGRAM IR BILATERAL UPPER 2021-03-08 22:48:00 [facility] EXTREMITY ARTERIOGRAM POC GLUCOSE 2021-03-08 22:19:00 [facility] PROTHROMBIN TIME WITH INR 2021-03-08 17:34:00 Himanshu Wisdom [facility] POC GLUCOSE 2021-03-08 16:43:00 [facility] PROTHROMBIN TIME WITH INR 2021-02-13 22:09:00 [facility] PARTIAL THROMBOPLASTIN 2021-02-13 22:09:00 [facility] TIME (PTT) BASIC METABOLIC PANEL 2021-02-13 22:09:00 [facility] HC COMPLETE BLD COUNT 2021-02-13 22:09:00 [facility] W/AUTO DIFF ESTIMATED GFR 2021-02-13 22:09:00 [facility] US DUPLEX HEMODIALYSIS AVG 2021-02-13 20:18:31 [facility]ESS HEMOGLOBIN & HEMATOCRIT 2021-01-28 21:59:00 [facility] POTASSIUM LEVEL 2021-01-28 17:19:00 [facility] Gargollo HEPATITIS B SURFACE 2021-01-28 16:43:00 [facility] Gargollo HEPATITIS B SURFACE 2021-01-28 16:43:00 [facility] ANTIBODY Gargollo TROPONIN 2021-01-28 15:58:00 [facility] HEMODIALYSIS 2021-01-28 13:11:44 Genaro [facility] Ho spital Gargollo TROPONIN 2021-01-28 10:12:00 [facility] HC COMPLETE BLD COUNT 2021-01-28 10:12:00 [facility] W/AUTO DIFF COMPREHENSIVE METABOLIC 2021-01-28 10:12:00 [facility] PANEL ESTIMATED GFR 2021-01-28 10:12:00 [facility] TROPONIN 2021-01-28 07:30:00 [facility] HEMOGLOBIN & HEMATOCRIT 2021-01-28 05:36:00 [facility] XR CHEST 1 VW PORTABLE 2021-01-28 04:38:25 [facility] ECG 12-LEAD 2021-01-28 04:10:59 [facility] ECG ED PRELIMINARY 2021-01-28 03:35:12 [facility] INTERPRETATION HC COMPLETE BLD COUNT 2021-01-28 03:20:00 [facility] W/AUTO DIFF PROTHROMBIN TIME WITH INR 2021-01-28 03:20:00 [facility] PARTIAL THROMBOPLASTIN 2021-01-28 03:20:00 [facility] TIME (PTT) COMPREHENSIVE METABOLIC 2021-01-28 03:20:00 [facility] PANEL TYPE AND SCREEN 2021-01-28 03:20:00 [facility] ESTIMATED GFR 2021-01-28 03:20:00 [facility] SMEAR REVIEW 2021-01-28 03:20:00 [facility] POC GLUCOSE 2021-01-27 23:05:00 Olaoye, Mario Jamesist H ospital [place]af[place] < 1 HOUR 2021-01-27 22:36:00 [facility]a Campos [facility] ANESTHESIA INTUBATION 2021-01-27 20:31:15 Kelly Zuñiga [facility] THROMBECTOMY 2021-01-27 20:02:00 Mata Campos [facility] BASIC METABOLIC PANEL 2021-01-27 11:17:00 [facility] Sarafadeen MAGNESIUM LEVEL 2021-01-27 11:17:[address] [facility] PHOSPHORUS L[facility]EL 2021-01-27 11:17:00 Aziza Lam ospital Gargoll PROTHROMBIN TIME WITH INR 2021-01-27 11:17:00 [facility] Centerlandon Martinez PARTIAL THROMBOPLASTIN 2021-01-27 11:17:00 [facility] TIME (PTT) Dorian J. COMPLETE BLD COUNT 2021-01-27 11:17:00 [facility] DIFF ESTIMATED GFR 2021-01-27 11:17:00 Olalexandroye, [facility] TYPE AND SCREEN 2021-01-27 11:17:00 Olalexandroye, [facility] [place] PREPARE RBC 2021-01-27 11:17:00 Olaoye, [facility] POC GLUCOSE 2021-01-26 20:50:00 Olfrancisco, [facility] [place] COVID-19 QUALITATIVE 2021-01-26 20:04:00 [facility] RT-PCR ECG ED PRELIMINARY 2021-01-26 18:15:[address] [facility] INTERPRETATION HC COMPLETE BLD COUNT 2021-01-26 18:07:00 [facility] W/AUTO DIFF BASIC METABOLIC PANEL 2021-01-26 18:07:00 [facility] PROTHROMBIN TIME WITH INR 2021-01-26 18:07:00 [facility] PARTIAL THROMBOPLASTIN 2021-01-26 18:07:00 [facility] TIME (PTT) ESTIMATED GFR 2021-01-26 18:07:00 [facility] XR CHEST 1 VW PORTABLE 2021-01-26 18:05:46 [facility] ECG 12-LEAD 2021-01-26 17:56:04 [facility] ECG 12-LEAD 2021-01-25 19:02:37 Maye Dyer HC COMPLETE BLD COUNT 2021-01-25 19:02:00 Manisha [facility] W/AUTO DIFF Dorian Martinez TYPE AND SCREEN 2021-01-25 19:02:00 Maye Dyer PROTHROMBIN TIME WITH INR 2021-01-25 19:02:00 [facility] Dorian Martinez PARTIAL THROMBOPLASTIN 2021-01-25 19:02:00 [facility] Dorian Martinez HEMOGLOBIN A1C 2021-01-25 19:02:00 Maye Dyer SMEAR REVIEW 2021-01-25 19:02:00 Maye Dyer COVID-19 QUALITATIVE 2021-01-25 18:34:[facility] Dorian Martinez POC GLUCOSE 2020-11-24 00:24:00 [facility] POC GLUCOSE 2020-11-23 23:40:00 [facility] [place] < 1 HOUR 2020-11-23 23:33:53 [facility] ND AN ELECTIVE 2020-11-23 22:46:34 Marisol Clinton [facility] SUPRAGLOTTIC AIRWAY REVISION, ARTERIOVENOUS 2020-11-23 22:22:00 [facility] GRAFT, WITH ANGIOGRAPHY ESTIMATED GFR 2020-11-23 19:16:00 [facility] POC PANEL 2020-11-23 19:16:00 [facility] BASIC METABOLIC PANEL 2020-11-23 19:10:00 [facility] PROTHROMBIN TIME WITH INR 2020-11-23 19:10:00 [facility] PARTIAL THROMBOPLASTIN 2020-11-23 19:10:00 [facility] TIME (PTT) ESTIMATED GFR 2020-11-23 19:10:00 [facility] COVID-19 QUALITATIVE 2020-11-21 22:14:00 [facility] Dorian Martinez HC COMPLETE BLD COUNT 2020-11-21 22:14:[facility] Dorian Martinez HEMOGLOBIN A1C 2020-11-21 22:14:00 Maye Dyer bebe Martinez TYPE AND SCREEN 2020-11-21 22:14:00 Maye Dyer bebe Martinez POC GLUCOSE 2020-11-02 22:09:00 [facility] ND AN ELECTIVE 2020-11-02 20:26:58 Murphy Carreno [facility] SUPRAGLOTTIC AIRWAY CREATION, AV FISTULA, 2020-11-02 19:58:00 AndresMata martinez [facility] USING GRAFT ESTIMATED GFR 2020-11-02 18:43:00 Andres, [facility] POC PANEL 2020-11-02 18:43:00 Andres, [facility] BASIC METABOLIC PANEL 2020-11-02 18:36:00 [facility] PROTHROMBIN TIME WITH INR 2020-11-02 18:36:00 Andres, [facility] PARTIAL THROMBOPLASTIN 2020-11-02 18:36:00 [facility], [facility] TIME (PTT) ESTIMATED GFR 2020-11-02 18:36:00 [facility], [facility] TYPE AND SCREEN 2020-11-01 20:20:00 [facility] HEMOGLOBIN A1C 2020-11-01 20:05:00 [facility] bebe Martinez COVID-19 QUALITATIVE 2020-11-01 19:57:00 [facility] RT-PCR HC COMPLETE BLD COUNT 2020-11-01 19:57:00 AndresMata emerson [facility] W/AUTO DIFF POC GLUCOSE 2020-10-19 21:07:00 Andres, [facility] OR [place] < 1 HOUR 2020-10-19 20:33:00 [facility] ND AN ELECTIVE 2020-10-19 18:55:41 Marisol Clinton [facility] SUPRAGLOTTIC AIRWAY REVISION, ARTERIOVENOUS 2020-10-19 18:17:00 Andres, [facility] GRAFT, WITH ANGIOGRAPHY ESTIMATED GFR 2020-10-19 16:45:00 Andres, [facility] POC PANEL 2020-10-19 16:45:00 [facility] BASIC METABOLIC PANEL 2020-10-19 16:39:00 [facility] PROTHROMBIN TIME WITH INR 2020-10-19 16:39:00 [facility] PARTIAL THROMBOPLASTIN 2020-10-19 16:39:00 [facility] TIME (PTT) ESTIMATED GFR 2020-10-19 16:39:00 Andres, [facility] TYPE AND SCREEN 2020 20:12:[address] [facility] COVID-19 QUALITATIVE 2020 19:45:00 [facility]res, [facility] RT-PCR HC COMPLETE BLD COUNT 2020 19:45:00 [facility] W/AUTO DIFF HEMOGLOBIN A1C 2020 19:45:00 [facility] US DUPLEX VENOUS LOWER 2020-10-05 18:42:49 [facility] EXTREMITY RIGHT US DUPLEX ARTERIAL LOWER 2020-10-05 18:42:34 [facility] EXTREMITY RIGHT POC GLUCOSE 2020-10-05 16:33:00 [facility] ND AN ELECTIVE 2020-10-05 14:50:09 [facility] SUPRAGLOTTIC AIRWAY REVISION, ARTERIOVENOUS 2020-10-05 14:19:00 [facility] GRAFT, WITH ANGIOGRAPHY ESTIMATED GFR 2020-10-05 13:26:00 [facility] POC PANEL 2020-10-05 13:26:00 [facility] COMPREHENSIVE METABOLIC 2020-10-05 13:21:00 [facility] PANEL PROTHROMBIN TIME WITH INR 2020-10-05 13:21:00 [facility] PARTIAL THROMBOPLASTIN 2020-10-05 13:21:00 AndresMata pitts [facility] TIME (PTT) ESTIMATED GFR 2020-10-05 13:21:00 [facility] ECG PRE/POST OP 2020-10-03 22:05:52 Maye Dyer bebe Martinez XR CHEST 2 VW 2020-10-03 21:29:13 Maye Dyer bebe Martinez HC COMPLETE BLD COUNT 2020-10-03 20:40:00 Erika Dyer [facility] W/AUTO DIFF Dorian Martinez TYPE AND SCREEN 2020-10-03 20:40:00 Maye Dyer HEMOGLOBIN A1C 2020-10-03 20:40:00 Maye Dyer COVID-19 QUALITATIVE 2020-10-03 20:29:00 Mata Campos Isauro [facility] RT-PCR ANESTHESIA PERIPHERAL 2020-08-02 11:51:24 Shiela Ovalles [facility] OR [place] < 1 HOUR 2020-07-14 21:15:00 Mata Campos Isauro [facility] POC GLUCOSE 2020-07-14 21:11:00 Luci Felton [facility] INSERTION, TUNNELED 2020-07-14 20:33:00 Mata Campos Isauro [facility] CENTRAL VENOUS CATHETER WITH PORT, WITHOUT FLUOROSCOPIC GUIDANCE TYPE AND SCREEN 2020-07-14 19:01:00 Maye Dyer bebe Martinez ECG ED PRELIMINARY 2020-07-14 17:04:41 [facility] INTERPRETATION COVID-19 QUALITATIVE 2020-07-14 17:02:00 [facility] RT-PCR XR CHEST 1 VW PORTABLE 2020-07-14 16:18:07 Josep Sheehan [facility] ECG 12-LEAD 2020-07-14 15:53:59 [facility] HC COMPLETE BLD COUNT 2020-07-14 15:22:00 [facility] W/AUTO DIFF PROTHROMBIN TIME WITH INR 2020-07-14 15:22:00 [facility] PARTIAL THROMBOPLASTIN 2020-07-14 15:22:00 [facility] TIME (PTT) BASIC METABOLIC PANEL 2020-07-14 15:22:00 [facility] ESTIMATED GFR 2020-07-14 15:22:00 [facility] POC GLUCOSE 2020-07-06 21:10:00 Andres, [facility] ND AN ELECTIVE 2020-07-06 19:20:32 Marisol Toledo [facility] SUPRAGLOTTIC AIRWAY [place] REVISION, ARTERIOVENOUS 2020-07-06 19:12:00 Andres, [facility] GRAFT, WITH ANGIOGRAPHY POC PANEL 2020-07-06 17:24:00 Andres, [facility] BASIC METABOLIC PANEL 2020-07-06 17:18:00 [facility] Dorian Martinez PROTHROMBIN TIME WITH INR 2020-07-06 17:18:00 [facility] Dorianmyrna Martinez PARTIAL THROMBOPLASTIN 2020-07-06 17:18:00 [facility] TIME (PTT) Dorian Michelle ESTIMATED GFR 2020-07-06 17:18:00 [facility] Dorianmyrna Martinez ECG PRE/POST OP 2020-07-04 18:43:01 EarleMike chavez [facility] COVID-19 QUALITATIVE 2020-07-04 18:06:00 [facility], [facility] RT-PCR HC COMPLETE BLD COUNT 2020-07-04 18:06:00 Andres [facility] W/AUTO DIFF TYPE AND SCREEN 2020-07-04 18:06:00 [facility] HEMOGLOBIN A1C 2020-07-04 18:06:00 Mike Og [facility] POTASSIUM 2020-06-29 10:37:00 Nathan Johnson [facility] POCT-GLUCOSE METER 2020-06-29 10:35:00 Mata Campos [facility] REPORT OF PROCEDURE - 2020-06-29 00:00:00 Provider, Default [facility] ENDOSCOPY SCAN [facility] TRANSFUSION SERVICE REPORT 2020-06-25 18:05:02 Provider, Default [facility] - SCAN [facility] ECG 12-LEAD 2020-06-24 12:33:34 Unknown, Hl7 [facility] SARS-COV2/RT-PCR ([facility] & 2020-06-24 12:09:00 Mata Campos [facility] REF LABS) [facility] BASIC METABOLIC PANEL (7) 2020-06-24 12:09:00 Mata Campos [facility] CBC W/PLT COUNT & AUTO 2020-06-24 12:09:00 Mata Campos [facility] PT/APTT 2020-06-24 12:09:00 Mata Campos july [facility] TYPE AND SCREEN, AUTOMATED 2020-06-24 12:09:00 [facility] Plan of Care Planned Activity Planned Date Details Comments Source Future Scheduled 2023-06-10 COVID-19 VACCINE (#1) [facility] 15:38:32 [code = COVID-19 VACCINE Hos pital (#1)] Future Scheduled 2023-06-10 Hepatitis C screening [facility] 15:38:32 (procedure) [code = Hospital 739763477] Future Scheduled 2023-06-10 Pneumococcal Vaccine: [facility] Test 15:38:32 Pediatrics (0 to 5 Years) Ho spital and At-Risk Patients (6 to 64 Years) (2 - PCV) [code = Pneumococcal Vaccine: Pediatrics (0 to 5 Years) and At-Risk Patients (6 to 64 Years) (2 - PCV)] Future Scheduled 2023-06-10 INFLUENZA VACCINE (#1) M ethodist Test 15:38:32 [code = INFLUENZA VACCINE Ho spital (#1)] Future Scheduled 2023-05-24 Influenza Vaccine (#1) [facility] 00:[facility]00 [code = Influenza Vaccine Me dical Center (#1)] Future Scheduled 2023-05-04 Lipid panel (procedure) [facility] Test 00:00:00 [code = 23621443] Medical Ce nter Future Scheduled 2023-05-04 Lipid panel (procedure) [facility] Test 00:00:00 [code = 73678725] Medical Ce nter Future Scheduled 2023-05-04 Lipid panel (procedure) [facility] Test 00:00:00 [code = [id number]] Medical Ce nter Future Scheduled 2023-05-04 Lipid panel (procedure) [facility] Test 00:00:00 [code = 76317916] Medical Ce nter Future Scheduled 2022-09-[address] [facility] Test 00:00:00 (12+) [code = DEPRESSION Med ical Center SCREENING (12+)] Future Scheduled 2021-10-31 COVID-19 VACCINE (1) Met hodist Test 15:43:34 [code = COVID-19 VACCINE Hos pital (1)] Future Scheduled 2021-10-31 Hepatitis C screening [facility] Test 15:43:34 (procedure) [code = Hospital [id number]] Future Scheduled 2021-10-31 INFLUENZA VACCINE [code = [facility] Test 15:43:34 INFLUENZA VACCINE] Hospital Future Scheduled 2021-09-[address] [facility] 00:00:00 (12+) [code = DEPRESSION Med ical Center SCREENING (12+)] Future Scheduled 2021-09-[address] [facility] Test 00:00:00 (12+) [code = DEPRESSION Med ical Center SCREENING (12+)] Future Scheduled 2021-06-[address] [facility] Test 00:00:00 Counseling and Screening Med ical Center (12+) [code = Tobacco Cessation Counseling and Screening (12+)] Future Scheduled 2021-05-24 INFLUENZA VACCINE (#1) [facility] 00:00:00 [code = INFLUENZA VACCINE Me dical Center (#1)] Future Scheduled 2021-05-24 INFLUENZA VACCINE (#1) [facility] 00:00:00 [code = INFLUENZA VACCINE Me dical Center (#1)] Future Scheduled 2020-09-[address] [facility] Test 00:00:00 (12+) [code = DEPRESSION Med ical Center SCREENING (12+)] Future Scheduled 2020-05-24 INFLUENZA VACCINE (#1) [facility] 00:00:00 [code = INFLUENZA VACCINE [facility] (#1)] Future Scheduled 2016-12-23 MEDICARE ANNUAL WELLNESS [facility] Test 00:00:00 (YEAR 2 or FIRST YEAR if Med ical Center no IPPE) [code = MEDICARE ANNUAL WELLNESS (YEAR 2 or FIRST YEAR if no IPPE)] Future Scheduled 2016-12-[address]NUAL WELLNESS [facility] Test 00:00:00 (YEAR 2 or FIRST YEAR if Med ical Center no IPPE) [code = MEDICARE ANNUAL WELLNESS (YEAR 2 or FIRST YEAR if no IPPE)] Future Scheduled 2016-12-[address]NUAL WELLNESS [facility] Test 00:00:00 (YEAR 2 or FIRST YEAR if [facility] ical Center no IPPE) [code = MEDICARE ANNUAL WELLNESS (YEAR 2 or FIRST YEAR if no IPPE)] Future Scheduled 2016-12-[address] MED[address]NUAL WELLNESS [facility] Test 00:00:00 (YEAR 2 or FIRST YEAR if [facility] ical Center no IPPE) [code = MEDICARE ANNUAL WELLNESS (YEAR 2 or FIRST YEAR if no IPPE)] Future Scheduled 2007 HEPATITIS B VACCINE ([address] [facility] Test 00:00:00 3 - Risk Recombivax [facility] 3-dose series) [code = HEPATITIS B VACCINE (1 of 3 - Risk Recombivax 3-dose series)] Future Scheduled 2007 DTAP/TDAP/TD VACCINES ([address] [facility] 00:00:00 - Tdap) [code = Medical Cent er DTAP/TDAP/TD VACCINES (1 - Tdap)] Future Scheduled 2007 DTAP/TDAP/TD VACCINES ([address] [facility] 00:00:00 - Tdap) [code = Medical Cent er DTAP/TDAP/TD VACCINES (1 - Tdap)] Future Scheduled 2007 DTAP/TDAP/TD VACCINES ([address] [facility] 00:00:00 - Tdap) [code = Medical Cent er DTAP/TDAP/TD VACCINES (1 - Tdap)] Future Scheduled 2006 HEPATITIS C [facility]CRE[facility]ING [facility] 00:00:00 [code = HEPATITIS C Medical Center SCREENING] Future Scheduled 2006 HEPATITIS C [facility]ING [facility] 00:00:00 [code = HEPATITIS C Medical Center SCREENING] Future Scheduled 2006 HEPATITIS C [facility] 00:00:00 [code = HEPATITIS C Medical Center SCREENING] Future Scheduled [address] Human [address] [facility] 00:00:00 virus screening Medical Cent er (procedure) [code = [id number]] Future Scheduled 1993 COVID-19 VACCINE (1) [facility] 00:00:00 [code = COVID-19 VACCINE Med ical Center (1)] Future Scheduled 1993 COVID-19 VACCINE (1) [facility] 00:00:00 [code = COVID-19 VACCINE Med ical Center (1)] Future Scheduled 1989-04-16 COVID-19 VACCINE (#1) [facility] 00:00[facility]00 [code = COVID-19 VACCINE Med ical Center (#1)] Future Scheduled DIABETES: RETINAL EYE [facility] EXAM [code = DIABETES: Hospi jena RETINAL EYE EXAM] Future Scheduled DIABETIC FOOT EXAM [code [facility] Test = DIABETIC FOOT EXAM] Hospit al Future Scheduled COVID-19 VACCINE (1) [facility] Test [code = COVID-19 VACCINE Hos pital (1)] Future Scheduled Hepatitis C screening [facility] Test (procedure) [code = Hospital [id number]] Future Scheduled INFLUENZA VACCINE [code = [facility] Test INFLUENZA VACCINE] Hospital Encounters Start End Encounter Admission Attending Care Care Encounter Source Date/Time Date/Time Type Type Clinicians Facility Department ID 2023-05-20 Inpatient Wiliam GRANADOS [facility] SUU [id number] Univers 07:53:11 [facility] 2023-02-15 Inpatient Wiliam GRANADOS NJRON S [id number] Univers 11:05:45 [facility] 2021-07-23 Emergency [facility] [id number] Univers 23:15:50 [facility] 2021-06-28 Outpatient SOL CAMPOS Surgery [id number] [facility] 09:50:00 [facility] 2021-06-28 Outpatient ANDRES, [facility] [id number] [facility] 09:07:28 [facility] 2019-01-07 Inpatient LANDON JOHNSTON [facility] [id number] [facility] 11:16:20 2023-07-15 2023-07-15 Outpatient [facility] [id number] [place] 09:15:00 09:15:00 [facility] 2023-05-29 2023-05-29 Hospital Vick Jalloh 1.2.840.1 [id number] Methodi 06:12:00 23:59:00 Encounter Jeremias 54228.1.[address] 3.430.2.7 Hospit a .3.646785 l .8 2023-05-29 2023-05-29 Anesthesia Rizwan Hawthorne 1.2.840.1 1 [id number] Methodi 08:25:00 10:06:00 Event Loretta Garcia 31574.1.[address] 3.430.2.7 Hospit a .3.329350 l .8 2023-05-29 2023-05-29 Surgery Vick Jalloh 1.2.840.1 [id number] Methodi 08:30:00 09:50:[address] 3.430.2.7 Hospit a .3.945970 l .8 2023-05-29 2023-05-29 Outpatient VICK JALLOH [facility] [id number] [place] 00:00:00 00:00:[address] 2023-05-28 2023-05-28 Telephone Leandro 1.2.840.1 [id number] Methodi 00:00:00 00:00:[address] 3.430.2.7 Hospit a .3.428126 l .8 2023-05-23 2023-05-23 Office Devendra [facility] 1.2.840.114 [id number] [facility] 14:30:00 14:45:00 Visit [facility] [id number] it y of CANCER 4.2.7.2.686 [facility] - [id number] [facility] [address] 2023-05-23 2023-05-[address] [facility] [id number] Univers 14:30:00 14:30:00 SHANI [facility] 2023-05-16 2023-05-[address] [facility] [id number] Univers 15:00:00 15:00:00 ABDOUL [facility] 2023-05-16 2023-05-16 [facility] [id number] [id number] Univers 14:00:00 14:15:00 Visit Abdoul Amezcua [facility] 350.1.13.10 ity of CANCER 4.2.7.2.686 [facility] [id number] [facility] [address] 2023-05-16 2023-05-[address] [facility] [id number] Univers 14:00:00 14:00:00 [facility] 2023-05-06 2023-05-06 Office Vick Jalloh 1.2.840.1 [id number] Methodi 14:20:00 15:11:15 Visit Jeremias 50297.1.[address] 3.430.2.7 Hospit a .3.243436 l .8 2023-05-06 2023-05-06 Prep for Lewis 1.2.840.1 [id number] Methodi 00:00:00 00:00:00 Surgery Julia 98145.1.[address] 3.430.2.7 Hospit a .3.940124 l .8 2023-05-06 2023-05-06 Outpatient VICK JALLOH [facility] [id number] [place] 00:00:00 00:00:00 129 Method i 2023-05-06 2023-05-06 Outpatient VICK JALLOH [facility] [id number] [place] 00:00:00 00:00:00 130 Method i 2023-04-30 2023-04-30 Orders Doctor NAVARRETE 1.2.840.114 [id number] Univers 00:00:00 00:00:00 Only Unassigned, SEVEN 350.1.13.10 ity of Neche [facility] 4.2.7.2.686 [facility] [id number] [facility] [address] 2023-03-28 2023-03-28 Emergency [facility] [id number] Univers 09:35:00 12:01:[address] [facility] 2023-03-28 2023-03-28 [facility] 1.2.077.059 [id number] Univers 09:35:00 12:01:00 Cecile DANG 350.1.13.10 i ty of [facility] 4.2.7.2.686 [facility] [id number] [facility] [address] 2023-03-08 2023-03-08 Telephone , 1.2.840.1 [id number] Methodi 00:00:00 00:00:[address] 3.430.2.7 Hospit a .3.445546 l .8 2023-02-26 2023-02-26 [facility] 1.2.840.114 [id number] Univers 00:00:00 00:00:00 Abdoul Amezcua [facility] 350.1.13.10 ity of CANCER 4.2.7.2.686 [facility] - [id number] Med ical [facility] [address] 2023-02-16 2023-02-16 Emergency Rico, 1.2.840.1 [id number] Methodi 14:02:00 17:45:[address] Otto 3.430.2.7 Hospit a .3.978155 l .8 2023-02-16 2023-02-16 Travel 1.2.840.1 1.2.702.544 [id number] Methodi 00:00:00 00:00:[address] 3.430.2.7 0.2.7.3.698 Ho spita .3.644933 084.8 l .8 2023-02-16 2023-02-16 Emergency RICO, [facility] [id number] [place] 00:00:00 00:00:00 CATINA 778 Mirella redman 2023-02-14 2023-02-14 [facility] 1.2.840.114 [id number] Univers 15:30:00 23:59:00 Encounter Badoul B SPECIALTY 350.1.13.10 [place] [id number] [place] chaddyonathan RANGEL 806 [facility] 2023-02-14 2023-02-14 [facility] 1.2.840.114 [id number] Univers 15:21:01 15:29:00 Encounter Abdoul Goldie SPECIALTY 350.1.13.10 [place] [id number] [place] yuriy RANGEL 807 [facility] 2023-02-14 2023-02-14 Outpatient R [facility] [id number] Univers 14:30:00 15:18:[address] [facility] 2023-02-14 2023-02-14 Office [facility] 1.2.090.406 [id number] Univers 14:30:00 15:18:11 Visit Abdoul [facility] 350.1.13.10 ity of CANCER 4.2.7.2.686 [facility] - [id number] Med ical [facility] [address] 2023-02-11 2023-02-11 Telephone [facility] 1.2.840.114 [id number] Univers 00:00:00 00:00:00 Dilma A MULTISPEC 350.1.13.10 [place] [id number] Erik Garcia [address] [facility] 2023-02-04 2023-02-04 Committee [facility] 1.2.840.114 [id number] Univers 00:00:00 00:00:00 Review Dilma A MULTISPEC 350.1.13.10 ity of IALTY 4.2.7.2.686 [facility] [id number] [facility] AND [address] DIABETES CLINIC 2023-01-01 2023-01-01 Outpatient R EUGENE [facility] [id number] Univers 13:00:00 14:51:29 [address] ity o f [facility] 2023-01-01 2023-01-01 Office Transplant, Kidney [facility] 1.2.840 .114 [id number] Univers 13:00:00 14:51:29 Visit Dilma Hamilton MULTISPEC 350.1.13 .10 ity of IALTY 4.2.7.2.686 [facility] [id number] [address] DIABETES CLINIC 2023-01-01 2023-01-01 Orders Doctor NAVARRETE 1.2.840.114 [id number] [facility] 00:00:00 00:00:00 Only Unassigned, SEVEN 350.1.13.10 ity of Neche [facility] 4.2.7.2.686 [facility] [id number] [place] [address] [address] 2022-12-03 2022-12-03 Outpatient LANG, MHSE MHSE [id number] 07:20:00 13:05:00 [facility] 2022-11-29 2022-11-29 Telephone Reeves, 1.2.840.1 [id number] Methodi 00:00:00 00:00:[address] 3.430.2.7 Hospit a .3.120282 l .8 2022-11-29 2022-11-29 Orders Leandro 1.2.840.1 [id number] Methodi 00:00:00 00:00:00 Only Padmaja 31113.1.[address] 3.430.2.7 Hospit a .3.962723 l .8 2022-11-29 2022-11-29 Telephone Eugene [facility] 1.2.840.114 [id number] Univers 00:00:00 00:00:00 Dilma Wilson MULTISPEC 350.1.13.10 ity of IALTY 4.2.7.2.686 [facility] [id number] [facility] AND [address] [facility] 2022-11-19 2022-11-19 Office Vick Jalloh 1.2.840.1 [id number] Methodi 14:50:00 16:29:51 Visit Jeremias 31164.1.[address] 3.430.2.7 Hospit a .3.080037 l .8 2022-11-19 2022-11-19 Travel 1.2.840.1 1.2.310.341 3351 [id number] Methodi 00:00:00 00:00:[address] 3.430.2.7 0.2.7.3.698 Ho spita .3.911988 084.8 l .8 2022-11-19 2022-11-19 Outpatient VICK JALLOH [facility] [id number] [place] 00:00:00 00:00:[address] 2022-11-13 2022-11-13 Office Sumeet 1.2.840.1 [id number] 6174 Methodi 11:45:00 11:58:50 Visit Loretta 00739.1.[address] [facility] 3.430.2.7 Hospit a .3.726606 l .8 2022-11-13 2022-11-13 Travel 1.2.840.1 1.2.135.627 4708 084884 Methodi 00:00:00 00:00:[address] 3.430.2.7 0.2.7.3.698 Ho spita .3.519611 084.8 l .8 2022-11-13 2022-11-13 Outpatient SUMEET [facility] [id number] 163 [place] 00:00:00 00:00:00 LORETTA [address] 2022-11-09 2022-11-09 Travel 1.2.840.1 1.2.031.459 4200 [id number] Methodi 00:00:00 00:00:[address] 3.430.2.7 0.2.7.3.698 Ho spita .3.418043 084.8 l .8 2022-11-09 2022-11-09 Outpatient VICK JALLOH [facility] 993 [id number] [place] 00:00:00 00:00:[address] 2022-11-08 2022-11-08 Telephone Vera, 1.2.840.1 [id number] Methodi 00:00:00 00:00:[address] 3.430.2.7 Hospit a .3.264494 l .8 2022-11-06 2022-11-06 Telephone Eugene [facility] 1.2.840.114 [id number] [facility] 00:00:00 00:00:00 Dilma Wilson MULTISPEC 350.1.13.10 ity of IALTY 4.2.7.2.686 [facility] s RANDOLPH [id number] [address] DI[facility]ETES CLINIC 2022-11-05 2022-11-05 Travel 1.2.840.1 1.2.854.362 2070 [id number] Methodi 00:00:00 00:00:[address] 3.430.2.7 0.2.7.3.698 Ho spita .3.352897 084.8 l .8 2022-11-05 2022-11-05 Telephone Vick Jalloh 1.2.840.1 [id number] Methodi 00:00:00 00:00:[address] 3.430.2.7 Hospit a .3.997059 l .8 2022-10-31 2022-10-31 Telephone Eugene [facility] 1.2.840.114 100 [id number] [facility] 00:00:00 00:00:00 Dilma Wilson MULTISPEC 350.1.13.10 ity of IALTY 4.2.7.2.686 [facility] [id number] [address] DIABETES CLINIC 2022-10-16 2022-10-16 Outpatient R ISABELELY [facility] [id number] Univers 15:00:00 15:00:00 MURPHY [facility] 2022-10-12 2022-10-12 Outpatient R [facility] [id number] Univers 09:00:00 09:00:00 [facility] 2022-10-05 2022-10-05 Office Raji, 1.2.840.1 [id number] 7598 Methodi 14:30:00 15:07:33 Visit Attila 15943.1.[address] [place] 3.430.2.7 Hospit a .3.382956 l .8 2022-10-05 2022-10-05 Refill Raji, 1.2.840.1 [id number] 7913 Methodi 00:00:00 00:00:[address] [place] 3.430.2.7 Hospit a .3.005957 l .8 2022-10-05 2022-10-05 Travel 1.2.840.1 1.2.983.452 2097 313938 Methodi 00:00:00 00:00:[address] 3.430.2.7 0.2.7.3.698 Ho spita .3.278936 084.8 l .8 2022-10-05 2022-10-05 Outpatient RAJI, [facility] [id number] 559 [place] 00:00:00 00:00:00 ATTIL[address] 2022-10-05 2022-10-05 Outpatient RAJI, [facility] [id number] 666 [place] 00:00:00 00:00:[address] 2022-08-24 2022-08-24 Refill Nasrinshanfrantz, 1.2.840.1 [id number] Methodi 00:00:00 00:00:[address] 3.430.2.7 Hospit a .3.222565 l .8 2022-08-23 2022-08-23 Office Raji, 1.2.840.1 [id number] 8060 Methodi 16:40:00 18:25:16 Visit Attila 44367.1.[address] [place] 3.430.2.7 Hospit a .3.920083 l .8 2022-08-23 2022-08-23 Travel 1.2.840.1 1.2.657.243 8167 356814 Methodi 00:00:00 00:00:[address] 3.430.2.7 0.2.7.3.698 Ho spita .3.973003 084.8 l .8 2022-08-23 2022-08-23 [facility] [id number] 763 [place] 00:00:00 00:00:00 ATTILA [address] 2022-08-23 2022-08-23 [facility] [id number] 874 [place] 00:00:00 00:00:[address] ATTILA [address] 2022-08-13 2022-08-14 Emergency Catina Noble Otto 1.2.840 .1 [id number] Methodi 19:17:00 15:27:00 Mayank Cox 22475.1.[address] Sarah Cespedes 3.430.2.7 [facility] .3.907976 l .8 2022-08-13 2022-08-14 Outpatient [facility] [id number] 253 [place] 00:00:00 00:00:00 [facility] [address] 2022-08-13 2022-08-13 Travel 1.2.840.1 1.2.245.813 5167 065498 Methodi 00:00:00 00:00:[address] 3.430.2.7 0.2.7.3.698 Ho spita .3.767259 084.8 l .8 2022-08-10 2022-08-10 Outpatient R CHANEL [facility] [id number] Univers 11:30:00 11:30:00 DILIP [facility] 2022-08-07 2022-08-07 Outpatient R JAMES [facility] [id number] Univers 15:30:00 15:30:00 MURPHY [facility] 2022-07-10 2022-07-10 [facility] 1.2.840.114 [id number] Univers 00:00:00 00:00:00 Dalila marrero MULTISPEC 350.1.13.10 [place] [id number] [facility] [address] [facility] 2022-07-05 2022-07-05 Telephone [facility] 1.2.840.114 [id number] [id number] Univers 00:00:00 00:00:00 Dilma Wilson MULTISPEC 350.1.13.10 ity of IALTY 4.2.7.2.686 [facility] [id number] [address] DIABETES CLINIC 2022-07-02 2022-07-02 Telephone [facility] 1.2.840.114 [id number] [id number] Univers 00:00:00 00:00:00 Perera A MULTISPEC 350.1.13.10 ity of IALTY 4.2.7.2.686 [facility] [id number] [address] DIABETES CLINIC 2022-06-20 2022-06-20 Outpatient JOEL BARR [facility] [id number] Univers 09:00:00 09:00:[address] [facility] 2022-05-18 2022-05-18 Outpatient JOEL BARR [facility] [id number] Univers 11:20:00 12:14:[address] [facility] 2022-05-18 2022-05-18 Office Kristin [facility] 1.2.840.114 [id number] Univers 11:20:00 12:14:54 Visit [facility] 350.1.13.10 ity of [place] 4.2.7.2.686 Hayden as FREDY?BLEA [id number] [place] dical JAMES [address] MEDICAL OFFICE BUILDING 2022-05-18 2022-05-18 Outpatient R KRISTINJOEL [facility] [id number] Univers 11:20:00 12:14:[address] ity of [facility] 2022-05-12 2022-05-13 Outpatient ETHAN, [facility] [id number] 697 [place] 00:00:00 00:00:00 TOÑA 085 Method i 2022-04-19 2022-04-24 Inpatient WILDER MILLARD [facility] 012 [id number] 73101 [place] 00:00:00 00:00:00 326 Method i 2022-04-16 2022-04-16 [facility] 1.2.840.114 [id number] [facility] 09:17:55 23:59:00 Encounter Daca, SPECIALTY 350.1.13.10 ity of Chitra J CARE 4.2.7.2.686 [place] AT [id number] [place] dical OGOtilio [address] [place] [address] 2022-04-16 2022-04-16 [facility] 1.2.840.114 9 [id number] [facility] 09:04:44 09:16:00 Encounter Daca, SPECIALTY 350.1.13.10 ity of [place] J CARE 4.2.7.2.686 [place] AT [id number] [place] dical VICTORY 805 [facility] 2022-04-16 2022-04-16 Outpatient R [facility] 518 [id number] Univers 09:03:13 09:03:00 DACA, ity of CHITRA [facility] 2022-04-16 2022-04-16 [facility] 1.2.840.114 [id number] Univers 09:00:00 09:03:00 Encounter Daca, SPECIALTY 350.1.13.10 ity of [place] J CARE 4.2.7.2.686 [place] AT [id number] [place] dical VICTORY [address] [place] [address] 2022-03-062022-03-06 Outpatient R JAMES [facility] [id number] Univers 15:30:00 15:30:[address] [facility] 2022-03-06 2022-03-[address] [facility] [id number] Univers 15:30:00 15:30:[address] [facility] 2022-03-06 2022-03-[address] [facility] [id number] Univers 15:30:00 15:30:[address] [facility] 2021-12-22 2021-12-22 Outpatient [facility] [id number] 640 [place] 00:00:00 00:00:[address] 2021-12-20 2021-12-20 Telephone [facility] 1.2.840.114 [id number] Univers 00:00:00 00:00:00 Dilma A MULTISPEC 350.1.13.10 ity of IALTY 4.2.7.2.686 [facility] [place] [id number] [address] DIABETES CLINIC 2021-12-18 2021-12-18 Case [facility] 1.2.840.114 [id number] [facility] 00:00:00 00:00:00 Management Perera A MULTISPEC 350.1.13.10 it[place] [id number] [address] DIABETES CLINIC 2021-12-13 2021-12-13 Outpatient [facility] [id number] 393 [place] 00:00:00 00:00:[address] 2021-12-11 2021-12-[address] [facility] [id number] Univers 09:00:00 09:52:[address] [facility] 2021-12-11 2021-12-11 Office [facility] 1.2.840.114 [id number] Univers 09:00:00 09:52:34 Visit [facility] 350.1.13.10 it y of [place] [id number] [address] OFFICE BUILDING 2021-12-08 2021-12-08 Outpatient VICK JALLOH [facility] [id number] [place] 00:00:00 00:00:[address] 2021-12-08 2021-12-08 Outpatient [facility] [id number] 317 [place] 00:00:00 00:00:[address] 2021-11-28 2021-11-28 Telephone [facility] 1.2.840.114 [id number] [facility] 00:00:00 00:00:00 Perera A MULTISPEC 350.1.13.10 [place] [id number] [address] DIABETES CLINIC 2021-11-08 2021-11-08 Telephone [facility] 1.2.840.114 [id number] [id number] [facility] 00:00:00 00:00:00 Perera A MULTISPEC 350.1.13.10 [place] [id number] [address] DIABETES CLINIC 2021-11-07 2021-11-07 Outpatient VICK JALLOH [facility] [id number] [place] 00:00:00 00:00:00 639 Method i 2021-11-04 2021-11-05 Inpatient RAY Lucas, RADHAWU TELE [id number] [facility] 04:38:00 13:00:[address] [facility] 2021-11-03 2021-11-03 Outpatient R [facility] [id number] Univers 14:13:04 23:59:00 PERERA ity o f [facility] 2021-11-03 2021-11-03 [facility] 1.2.255.531 [id number] Univers 14:13:04 23:59:00 Encounter Perera A SPECIALTY 350.1.13.10 it[place] of C[place] 4[place]2.[place] AT [id number] [place]s yuriy RANGEL [address] [place] [address] 2021-11-03 2021-11-03 Outpatient R [facility] [id number] Univers 14:13:04 23:59:00 PERERA ity o f [facility] 2021-10-20 2021-10-20 Outpatient R [facility] [id number] Univers 10:57:20 23:59:00 PERERA ity o leo [facility] 2021-10-20 2021-10-20 Hospital [facility] 1.2.608.569 [id number] Univers 10:57:20 23:59:00 Encounter Dilma Wilson HEALTH 350.1.13.10 it[place] [id number] [place] [address] [address] ([facility]) 2021-10-20 2021-10-20 Outpatient R [facility] [id number] Univers 10:57:20 23:59:00 PERERA ity o [facility] 2021-10-20 2021-10-20 Telephone [facility] 1.2.840.114 [id number] Univers 00:00:00 00:00:00 Dilma Wilson MULTISPEC 350.1.13.10 it[place] [id number] [facility] AND [place]AR[place] [address] DIABETES CLINIC 2021-10-19 2021-10-[address] [facility] [id number] Univers 14:20:00 16:03:11 GALEN dunlap [facility] 2021-10-19 2021-10-19 Outpatient R DORIAN [facility] [id number] Univers 14:20:00 16:03:11 GALEN anglin o [facility] 2021-10-19 2021-10-19 Office ZOILA Mendoza 1.2.840.114 [id number] Univers 14:20:00 14:40:00 Visit Galen PEDIATRIC 350.1.13.10 ity of [place] [id number] [facility] PRIMARY [address] CARE CLINIC 2021-10-19 2021-10-19 Outpatient R DOIRAN, [facility] [id number] Univers 14:20:00 14:20:00 GALEN anglin o f [facility] 2021-10-16 2021-10-16 Outpatient R GREGORIA [facility] [id number] Univers 12:45:45 23:59:[address] [facility] 2021-10-16 2021-10-16 [facility] Eugene, Perera A [facility] 1.2.8 40.114 [id number] Univers 12:45:45 23:59:00 Encounter Jonny Kinney 350.1.1 3.10 ity of [facility] 4.2.7.2.686 [facility] [id number] [place] [address] [address] 2021-10-16 2021-10-16 Outpatient R JOEL MCKAY [facility] [id number] Univers 11:20:00 12:00:49 [facility] 2021-10-16 2021-10-16 Office Kristin [facility] 1.2.840.114 [id number] Univers 11:20:00 12:00:49 Visit [facility] 350.1.13.10 ity hood [place]ANG 4.2.7.2.686 Hayden as FREDY?BLEA [id number] Ks [address] MEDICAL OFFICE BUILDING 2021-10-16 2021-10-16 Outpatient Wiliam JOEL MCKAY [facility] [id number] Univers 11:20:00 12:00:49 JOEL MCKAY [facility] 2021-10-12 2021-10-12 Case [facility] 1.2.840.114 [id number] Univers 00:00:00 00:00:00 Management Dilma Wilson MULTISPEC 350.1.13.10 ity hood [place] 4.2.7.2.686 [facility] [id number] [facility] AND ORNELAS [address] DIABETES CLINIC 2021-10-12 2021-10-12 Telephone [facility] 1.2.840.114 [id number] Univers 00:00:00 00:00:00 Dilma Wilson MULTISPEC 350.1.13.10 it[place] [id number] [address] DIABETES CLINIC 2021-10-12 2021-10-12 Telephone Eugene [facility] 1.2.840.114 [id number] Univers 00:00:00 00:00:00 Dilma Wilson MULTISPEC 350.1.13.10 it[place] [id number] [address] DIABETES CLINIC 2021-10-04 2021-10-04 Access Coordinator Access Coordinator, Transplant [facility] 1. 2.840.114 [id number] Univers 12:00:00 13:16:51 Visit Eugene, Perera Katie MULTISPEC 350.1.13 .10 it[place] [id number] [address] DIABETES CLINIC 2021-10-04 2021-10-04 Rn Baby, Transplant Social [facility] 1.2.840.114 [id number] Univers 11:00:00 11:45:00 Management Eugene, Perera Katie MULTISPEC 350.1 .13.10 it[place] of [place]2.[place] [id number] [address] DIABETES CLINIC 2021-10-04 2021-10-04 [facility] 1.2.840.114 [id number] Univers 10:05:00 10:50:00 Visit Dilma Wilson MULTISPEC 350.1.13.10 it[place] [id number] [address] DIABETES CLINIC 2021-10-04 2021-10-[address] [facility] [id number] Univers 10:05:00 10:05:[address] o f [facility] 2021-10-04 2021-10-[address] [facility] [id number] Univers 10:05:00 10:05:00 [address]A ity o leo [facility] 2021-10-04 2021-10-04 Outpatient R EUGENE [facility] [id number] Univers 10:05:00 10:05:00 PERERA josey o leo [facility] 2021-10-04 2021-10-04 Outpatient R EUGENE [facility] [id number] Univers 10:05:00 10:05:00 PERERA ity o [facility] 2021-10-04 2021-10-04 Orders Doctor LANDON 1.2.840.114 [id number] Univers 00:00:00 00:00:00 Only Unassigned, SEVEN 350.1.13.10 ity of Neche [facility] 4.2.7.2.686 Hayden as [id number] [place] [address] [address] 2021-10-03 2021-10-03 Nurse Renal, Transplant Class [facility] 1. 2.840.114 [id number] Univers 14:00:00 14:15:00 Visit Dilma Hamilton MULTISPEC 350.1.13 .10 it[place] [id number] [address] DIABETES CLINIC 2021-10-03 2021-10-[address] [facility] [id number] Univers 14:00:00 14:00:00 DILMA anglin o [facility] 2021-10-03 2021-10-03 [facility] [id number] Univers 14:00:00 14:00:00 PERERA ity o [facility] 2021-10-03 2021-10-03 [facility] 1.2.840.114 [id number] Univers 00:00:00 00:00:00 Management Dilma Wilson MULTISPEC 350.1.13.10 it[place] [id number] [address] DIABETES CLINIC 2021-09-29 2021-09-29 Travel 1.2.840.1 1.2.441.000 2473 012704 Methodi 00:00:00 00:00:[address] 3.430.2.7 0.2.7.3.698 Ho spita .3.118665 084.8 l .8 2021-09-18 2021-09-18 Telephone Misti 1.2.840.1 [id number] 2100 [id number] Methodi 15:15:38 15:29:28 Consult Steven [address]308.1.[address] Dorene 3.430.2.7 Hospit a .3.080993 l .8 2021-09-13 2021-09-13 Office Misti, 1.2.840.1 [id number] 1895 Methodi 15:26:17 15:56:24 Visit Steven 51215.1.[address] Dorene 3.430.2.7 Hospit a .3.986656 l .8 2021-09-13 2021-09-13 Outpatient VICK JALLOH [facility] [id number] [place] 00:00:00 00:00:[address] 2021-09-13 2021-09-13 Outpatient VICK JALLOH [facility] [id number] [place] 00:00:00 00:00:[address] 2021-09-13 2021-09-13 Travel 1.2.840.1 1.2.458.467 1225 [id number] Methodi 00:00:00 00:00:[address] 3.430.2.7 0.2.7.3.698 Ho spita .3.148179 084.8 l .8 2021-09-12 2021-09-12 Telephone Vick Jalloh 1.2.840.1 [id number] Methodi 00:00:00 00:00:[address] 3.430.2.7 Hospit a .3.649995 l .8 2021-09-01 2021-09-02 [facility] Vick Jalloh 1.2.840.1 [id number] Methodi 07:49:00 20:03:00 Encounter Jeremias 86986.1.[address] 3.430.2.7 Hospit a .3.673125 l .8 2021-09-01 2021-09-01 Anesthesia Jossie Aguilera Andrzej 1.2.840.1 1 [id number] Methodi 11:40:00 15:10:00 Event Ryan Tran 06705.1.[address] 3.430.2.7 Hospit a .3.035059 l .8 2021-09-01 2021-09-01 Surgery Yeimi Vick 1.2.840.1 [id number] 21 [id number] Methodi 10:30:00 13:35:[address] 3.430.2.7 Hospit a .3.450866 l .8 2021-09-01 2021-09-01 Travel 1.2.840.1 1.2.299.931 3241 579568 Methodi 00:00:00 00:00:[address] 3.430.2.7 0.2.7.3.698 Ho spita .3.490131 084.8 l .8 2021-08-28 2021-08-28 Pre-Admiss YeimiMatias [facility] 1.2.840.1 [id number] Methodi 14:12:02 15:12:02 ion Jeremias 35842.1.[address] Testing 3.430.2.7 Hospit a .3.469949 l .8 2021-08-28 2021-08-28 Orders Leandro, 1.2.840.1 [id number] 44873 47260 Methodi 00:00:00 00:00:00 Only Padmaja 98984.1.[address] 3.430.2.7 Hospit a .3.176226 l .8 2021-08-28 2021-08-28 Orders Leandro, 1.2.840.1 [id number] 34484 56679 Methodi 00:00:00 00:00:00 Only Padmaja 61995.1.[address] 3.430.2.7 Hospit a .3.326115 l .8 2021-08-28 2021-08-28 Travel 1.2.840.1 1.2.659.251 4814 089647 Methodi 00:00:00 00:00:[address] 3.430.2.7 0.2.7.3.698 Ho spita .3.366429 084.8 l .8 2021-08-25 2021-08-25 Prep for Reeves, 1.2.840.1 [id number] 2100 210296 Methodi 00:00:00 00:00:00 Surgery Padmaja 37554.1.[address] 3.430.2.7 Hospit a .3.175807 l .8 2021-08-25 2021-08-25 Telephone Reeves, 1.2.840.1 [id number] Methodi 00:00:00 00:00:[address] 3.430.2.7 Hospit a .3.400823 l .8 2021-08-23 2021-08-23 [facility] Vick Jalloh 1.2.840.1 [id number] 2 [id number] Methodi 08:13:00 10:07:00 Encounter Jeremias [address]197.1.[address] 3.430.2.7 Hospit a .3.663325 l .8 2021-08-23 2021-08-23 Travel 1.2.840.1 1.2.481.512 1619 [id number] Methodi 00:00:00 00:00:[address] 3.430.2.7 0.2.7.3.698 Ho spita .3.990908 084.8 l .8 2021-07-26 2021-07-26 Outpatient DM DMG [id number] 021 [facility] 11:01:00 11:01:00 1103 [facility] 2021-07-21 2021-07-21 [facility] 1.2.138.001 0739 4067 Univers 08:28:00 23:59:00 Encounter Dilma Wilson SEVEN 350.1.13.10 ity of [facility] 4.2.7.2.686 [facility] [id number] [place] [address] [address] 2021-07-21 2021-07-21 Outpatient R [facility] [id number] Univers 00:00:00 23:59:00 PERERA ity o [facility] 2021-07-21 2021-07-21 Outpatient R [facility] [id number] Univers 00:00:00 23:59:00 PERERA ity o [facility] 2021-07-21 2021-07-21 Letter [facility] 1.2.840.114 [id number] Univers 00:00:00 00:00:00 (Out) Perera Katie MULTISPEC 350.1.13.10 ity of [facility] 4.2.7.2.686 [facility] [place] [id number] [address] [facility] 2021-07-19 2021-07-19 Telephone [facility] 1.2.840.114 [id number] Univers 00:00:00 00:00:00 Perera Katie MULTISPEC 350.1.13.10 ity of [place] 4.2.7.2.686 [facility] [place] [id number] [address] [facility] 2021-07-11 2021-07-11 Telephone Vick Jalloh 1.2.840.1 [id number] Methodi 00:00:00 00:00:[address] 3.430.2.7 Hospit a .3.578855 l .8 2021-07-10 2021-07-10 Telephone Vick Jalloh 1.2.840.1 [id number] Methodi 00:00:00 00:00:[address] 3.430.2.7 Hospit a .3.498435 l .8 2021-07-06 2021-07-06 Orders Misti, 1.2.840.1 [id number] 5367 Methodi 00:00:00 00:00:00 Only Steven 43386.1.[address] Dorene 3.430.2.7 Hospit a .3.941781 l .8 2021-06-26 2021-07-05 [facility] Mireya Thacker 1.2.840.1 [id number] Methodi 22:10:00 15:22:00 Encounter Cash Red 23996.1.[address] Vo, Le 3.430.2.7 Hospit a Eduardo Camacho Foster .3.600646 l Wilder Millard .8 2021-06-29 2021-06-29 Telephone Leandro, 1.2.840.1 [id number] Methodi 00:00:00 00:00:[address] 3.430.2.7 Hospit a .3.098255 l .8 2021-06-16 2021-06-16 Nurse Only Khadar, 1.2.840.1 [id number] 21 [id number] Methodi 00:00:00 00:00:[address] 3.430.2.7 Hospit a .3.305198 l .8 2021-06-15 2021-06-15 Prep for Leandro, 1.2.840.1 [id number] 2099 [id number] Methodi 00:00:00 00:00:00 Surgery Padmaja 94747.1.[address] 3.430.2.7 Hospit a .3.736546 l .8 2021-06-15 2021-06-15 Telephone Leandro, 1.2.840.1 [id number] Methodi 00:00:00 00:00:[address] 3.430.2.7 Hospit a .3.135593 l .8 2021-06-14 2021-06-14 Documentat Quang, 1.2.840.1 [id number] 2 [id number] Methodi 00:00:00 00:00:00 ion Viviana 44926.1.[address] Srinath 3.430.2.7 Hospi ta .3.502795 l .8 2021-06-07 2021-06-13 [facility] Clement Rodney 1.2.840.1 10 [id number] Methodi 20:48:00 14:05:00 Deep AgudeloEduardo 52172.1.[address] 3.430.2.7 Hospit a .3.310799 l .8 2021-06-13 2021-06-13 Travel 1.2.840.1 1.2.951.868 1277 [id number] Methodi 00:00:00 00:00:[address] 3.430.2.7 0.2.7.3.698 Ho spita .3.599326 084.8 l .8 2021-06-12 2021-06-12 [facility] 1.2.840.114 [id number] Univers 00:00:00 00:00:00 Dalila marrero MULTISPEC 350.1.13.10 ity of [place] 4.2.7.2.686 [facility] [place] [phone] [facility] [address] [facility] 2021-06-12 2021-06-12 [facility] 1.2.840.114 [id number] [facility] 00:00:00 00:00:00 Dilma Wilson MULTISPEC 350.1.13.10 ity of [place] 4.2.7.2.686 [facility] [place] [id number] [facility] [address] [facility] 2021-06-07 2021-06-07 Travel 1.2.840.1 1.2.595.454 [id number] Methodi 00:00:00 00:00:[address] 3.430.2.7 0.2.7.3.698 Ho spita .3.864405 084.8 l .8 2021-06-02 2021-06-02 [facility] 1.2.840.1 [id number] 2 [id number] Methodi 10:58:00 16:14:00 Encounter Jeremias 52366.1.[address] 3.430.2.7 Hospit a .3.854407 l .8 2021-06-02 2021-06-02 Anesthesia Leandrona, 1.2.840.1 [id number] Methodi 13:31:00 15:28:00 Event Mckenna 22973.1.[address] E. 3.430.2.7 Hospit a .3.808722 l .8 2021-06-02 2021-06-02 Surgery [facility] 1.2.840.1 [id number] 21 [id number] Methodi 12:45:00 14:15:[address] 3.430.2.7 Hospit a .3.067136 l .8 2021-06-02 2021-06-02 Travel 1.2.840.1 1.2.401.867 4735 099337 Methodi 00:00:00 00:00:[address] 3.430.2.7 0.2.7.3.698 Ho spita .3.832967 084.8 l .8 2021-06-01 2021-06-01 Prep for Leandro, 1.2.840.1 [id number] 2100 584039 Methodi 00:00:00 00:00:00 Surgery Padmaja 83405.1.[address] 3.430.2.7 Hospit a .3.581458 l .8 2021-06-01 2021-06-01 Telephone Leandro, 1.2.840.1 [id number] 749 [id number] Methodi 00:00:00 00:00:[address] 3.430.2.7 Hospit a .3.949319 l .8 2021-05-31 2021-05-31 [facility] 1.2.840.1 [id number] 2 [id number] Methodi 10:40:00 23:59:00 Encounter Jeremias 45860.1.[address] 3.430.2.7 Hospit a .3.198209 l .8 2021-05-31 2021-05-31 [facility] Matias Jallohic 1.2.840.1 [id number] 2 [id number] Methodi 05:59:00 10:27:00 Encounter Jeremias 64380.1.[address] 3.430.2.7 Hospit a .3.545601 l .8 2021-05-31 2021-05-31 Surgery [facility] 1.2.840.1 [id number] 21 [id number] Methodi 08:00:00 09:30:[address] 3.430.2.7 Hospit a .3.440005 l .8 2021-05-31 2021-05-31 Anesthesia Mckenna Dickens 1.2.840 .1 [id number] Methodi 08:00:00 09:23:00 Event Nita Montenegro 56999.1.[address] 3.430.2.7 Hospit a .3.345814 l .8 2021-05-30 2021-05-30 Travel 1.2.840.1 1.2.737.953 4972 093412 Methodi 00:00:00 00:00:[address] 3.430.2.7 0.2.7.3.698 spita .3.302102 084.8 l .8 2021-05-30 2021-05-30 Telephone Leandro, 1.2.840.1 [id number] 913 [id number] Methodi 00:00:00 00:00:[address] 3.430.2.7 Hospit a .3.136961 l .8 2021-05-25 2021-05-25 Travel 1.2.840.1 1.2.537.345 4353 416399 Methodi 00:00:00 00:00:[address] 3.430.2.7 0.2.7.3.698 Ho spita .3.668098 084.8 l .8 2021-05-09 2021-05-09 Outpatient R KYLE SANON [facility] [id number] Univers 14:30:00 14:30:[address] [facility] 2021-05-02 2021-05-02 Telephone Eugene [facility] 1.2.840.114 864 50700 [facility] 00:00:00 00:00:00 Dil[facility] [phone] [address] [facility] 2021-05-01 2021-05-01 Office Misti, 1.2.840.1 [id number] 1952 Methodi 10:44:09 13:36:27 Visit Steven 16584.1.[address] Dorene 3.430.2.7 Hospit a .3.917929 l .8 2021-05-01 2021-05-01 Prep for , 1.2.840.1 [id number] 05272 96448 Methodi 00:00:00 00:00:00 Surgery Julia 22422.1.[address] 3.430.2.7 Hospit a .3.387686 l .8 2021-05-01 2021-05-01 Orders Krzysztof, 1.2.840.1 [id number] 977432 3083 Methodi 00:00:00 00:00:00 Only Saul 11481.1.[address] 3.430.2.7 Hospit a .3.572344 l .8 2021-05-01 2021-05-01 Travel 1.2.840.1 1.2.661.737 0968 346612 Methodi 00:00:00 00:00:[address] 3.430.2.7 0.2.7.3.698 Ho spita .3.716073 084.8 l .8 2021-05-01 2021-05-01 Telephone Matias Jallohic 1.2.840.1 [id number] Methodi 00:00:00 00:00:[address] 3.430.2.7 Hospit a .3.599928 l .8 2021-04-19 2021-04-19 Office Yeimi Vick Mcdowell 1.2.840.1 395069 034 [id number] Methodi 14:50:10 15:59:01 Visit MistiSteven 84824.1.[address] 3.430.2.7 Hospit a .3.511778 l .8 2021-04-19 2021-04-19 Travel 1.2.840.1 1.2.392.471 1980 409139 Methodi 00:00:00 00:00:[address] 3.430.2.7 0.2.7.3.698 Ho spita .3.008900 084.8 l .8 2021-04-19 2021-04-19 Abstract Piotr, 1.2.840.1 000515403 2100 924952 Methodi 00:00:00 00:00:00 Farideh D 23363.1.1 736 s t 3.430.2.7 Hospit a .3.247901 l .8 2021-04-17 2021-04-17 Telephone Matias Jallohic 1.2.840.1 [id number] Methodi 00:00:00 00:00:[address] 3.430.2.7 Hospit a .3.395578 l .8 2021-03-30 2021-03-30 Office Misti 1.2.840.1 319812881 961978 6273 Methodi 13:30:00 15:21:25 Visit Steven 62705.1.[address] Dorene 3.430.2.7 Hospit a .3.673700 l .8 2021-03-30 2021-03-30 Lab Matias Jallohic 1.2.840.1 [id number] 21 [id number] Methodi 14:54:45 14:59:[address] 3.430.2.7 Hospit a .3.333739 l .8 2021-03-30 2021-03-30 [facility] [id number] 052 [place] 00:00:00 00:00:[address] 2021-03-30 2021-03-30 Prep for Reeves, 1.2.840.1 [id number] 2100 557509 Methodi 00:00:00 00:00:00 Surgery Padmaja 67466.1.[address] 3.430.2.7 Hospit a .3.944198 l .8 2021-03-30 2021-03-30 Orders Blankenship, 1.2.840.1 [id number] 972259 5924 Methodi 00:00:00 00:00:00 Only Saul 08818.1.[address] 3.430.2.7 Hospit a .3.534913 l .8 2021-03-29 2021-03-29 Hospital Vick Jalloh 1.2.840.1 [id number] 2 [id number] Methodi 10:30:00 19:18:00 Encounter Jeremias 05370.1.[address] 3.430.2.7 Hospit a .3.099936 l .8 2021-03-29 2021-03-29 Anesthesia Mckenna Dickens 1.2.840 .1 [id number] Methodi 16:06:00 18:35:00 Event Catina Adorno 74547.1.[address] 3.430.2.7 Hospit a .3.347757 l .8 2021-03-29 2021-03-29 Surgery Vick Jalloh 1.2.840.1 [id number] 21 [id number] Methodi 14:13:00 16:28:[address] 3.430.2.7 Hospit a .3.345052 l .8 2021-03-29 2021-03-29 Travel 1.2.840.1 1.2.087.791 3640 370490 Methodi 00:00:00 00:00:[address] 3.430.2.7 0.2.7.3.698 Ho spita .3.600862 084.8 l .8 2021-03-28 2021-03-28 Prep for Yeimi, Vick 1.2.840.1 [id number] 2 [id number] Methodi 00:00:00 00:00:00 Surgery Jeremias 12278.1.[address] 3.430.2.7 Hospit a .3.559222 l .8 2021-03-22 2021-03-22 Telephone Yeimi, Vick 1.2.840.1 [id number] Methodi 00:00:00 00:00:[address] 3.430.2.7 Hospit a .3.438433 l .8 2021-03-20 2021-03-20 Telephone Yeimi, Vick 1.2.840.1 [id number] Methodi 15:30:00 15:40:00 Consult Jeremias 17589.1.[address] 3.430.2.7 Hospit a .3.253704 l .8 2021-03-17 2021-03-17 Outpatient YEIMI, VICK [facility] 756 [id number] [place] 00:00:00 00:00:[address] 2021-03-17 2021-03-17 Outpatient YEIMI, VICK [facility] 263 [id number] [place] 00:00:00 00:00:[address] 2021-03-17 2021-03-17 Outpatient YEIMI, VICK [facility] 676 [id number] [place] 00:00:00 00:00:[address] 2021-03-17 2021-03-17 Travel 1.2.840.1 1.2.765.995 2840 400308 Methodi 00:00:00 00:00:[address] 3.430.2.7 0.2.7.3.698 Ho spita .3.596433 084.8 l .8 2021-03-15 2021-03-15 [facility] 1.2.840.1 [id number] 2 [id number] Methodi 11:01:58 23:59:00 Encounter Jeremias 59961.1.[address] 3.430.2.7 Hospit a .3.356061 l .8 2021-03-15 2021-03-15 [facility] 1.2.840.1 [id number] 21 [id number] Methodi 09:41:32 09:46:[address] 3.430.2.7 Hospit a .3.894408 l .8 2021-03-15 2021-03-15 Travel 1.2.840.1 1.2.972.942 1284 483857 Methodi 00:00:00 00:00:[address] 3.430.2.7 0.2.7.3.698 Ho spita .3.446529 084.8 l .8 2021-03-10 2021-03-10 [place] Cem, 1.2.840.1 [id number] Methodi 00:00:00 00:00:[address] 3.430.2.7 Hospit a .3.407504 l .8 2021-03-08 2021-03-08 [facility] 1.2.840.1 [id number] 2 [id number] Methodi 11:07:17 23:59:00 Encounter Jeremias 96039.1.[address] 3.430.2.7 Hospit a .3.676973 l .8 2021-03-08 2021-03-08 Travel 1.2.840.1 1.2.136.833 1067 249349 Methodi 00:00:00 00:00:[address] 3.430.2.7 0.2.7.3.698 spita .3.374122 084.8 l .8 2021-03-07 2021-03-07 Transition Deepak Serrano 1.2.840.114 850 54935 Univers 00:00:00 00:00:00 of Care Luis Wilson Jatinder 350.1.13.10 ity of [place] [id number] [facility] [address] 2021-02-24 2021-03-06 [facility] Cecile Ty 1.2.840.1 14 [id number] Univers 14:43:00 17:00:00 Encounter Og Smith 350.1.13. 10 ity of [facility] 4.2.7.2.686 [place] Jose Angel Mejía [phone] Medical Ailin Medrano [address] 2021-03-03 2021-03-03 Telephone Sherri Baugh 1.2.840.1 [id number] Method 00:00:00 00:00:[address] 3.430.2.7 Hospit a .3.483106 l .8 2021-02-28 2021-02-28 [facility] Eugene [facility] 1.2.470.791 7731 6001 Univers 10:25:00 23:59:00 Encounter Dilma WEIR 350.1.13.10 ity of [facility] 4.2.7.2.686 Hayden as [phone] [facility] [address] 2021-02-28 2021-02-28 Letter Eugene, [facility] 1.2.840.114 03866 170 Univers 00:00:00 00:00:00 (Out) Dilma Wilson MULTISPEC 350.1.13.10 ity of [facility] [place] [id number] [facility] AND ORNELAS [address] [facility] 2021-02-28 2021-02-28 Telephone Francisco [facility] 1.2.840.114 [id number] Univers 00:00:00 00:00:00 Dalila marrero MULTISPEC 350.1.13.10 ity of [facility] 4.2.7.2.686 [facility] [phone] [facility] AND LARSLAN [address] [facility] 2021-02-27 2021-02-27 Surgery Sarai Venegas 1.2.840.114 [id number] Univers 07:15:00 09:56:00 Red Weir 350.1.13.10 ity of [facility] 4.2.7.2.686 [facility] [id number] [facility] [address] 2021-02-17 2021-02-17 Travel 1.2.840.1 1.2.919.400 3472 241336 Methodi 00:00:00 00:00:[address] 3.430.2.7 0.2.7.3.698 spita .3.886935 084.8 l .8 2021-02-13 2021-02-13 Lab Vick Jalloh 1.2.840.1 [id number] 21 [id number] Methodi 16:34:17 16:39:[address] 3.430.2.7 Hospit a .3.494250 l .8 2021-02-13 2021-02-13 Office Vick Jalloh 1.2.840.1 [id number] 21 [id number] Methodi 15:14:54 16:28:02 Visit Jeremias 87891.1.[address] 3.430.2.7 Hospit a .3.660382 l .8 2021-02-13 2021-02-13 Outpatient VICK JALLOH [facility] 930 [id number] [place] 00:00:00 00:00:[address] 2021-02-13 2021-02-13 Telephone Vick Jalloh 1.2.840.1 [id number] Methodi 00:00:00 00:00:[address] 3.430.2.7 Hospit a .3.819926 l .8 2021-02-13 2021-02-13 Travel 1.2.840.1 1.2.681.104 2639 947267 Methodi 00:00:00 00:00:[address] 3.430.2.7 0.2.7.3.698 Ho spita .3.676906 084.8 l .8 2021-02-10 2021-02-10 Abstract Piotr 1.2.840.1 445321346 2099 280245 Methodi 00:00:00 00:00:00 Farideh D 61652.1.1 166 s t 3.430.2.7 Hospit a .3.984978 l .8 2021-01-27 2021-01-29 Emergency Lenny Mayo 1.2.840.1 1041 26958 [id number] Methodi 22:13:00 13:14:00 Luci Feltonedelmira 88227.1.[address] [facility] 3.430.2.7 Hospita .3.417099 l .8 2021-01-28 2021-01-28 Travel 1.2.840.1 1.2.631.013 4688 773354 Methodi 00:00:00 00:00:[address] 3.430.2.7 0.2.7.3.698 Ho spita .3.568133 084.8 l .8 2021-01-26 2021-01-27 Emergency Josep Sheehan 1.2.840.1 1041 99711 [id number] Methodi 12:14:00 21:32:00 Luci Feltonjuly 84092.1.[address] Mario Bales 3.430.2.7 Hospita .3.213197 l .8 2021-01-27 2021-01-27 Anesthesia Kelly Zuñiga V. 1.2.840.1 [id number] Methodi 15:02:00 17:54:00 Event Katty Covington 14877.1.[address] 3.430.2.7 Hospit a .3.446622 l .8 2021-01-27 2021-01-27 Surgery Andres, 1.2.840.1 [id number] 574 [id number] Methodi 15:15:00 16:55:[address]953.1.[address] 3.430.2.7 Hospit a .3.943165 l .8 2021-01-26 2021-01-26 Travel 1.2.840.1 1.2.491.959 6955 703011 Methodi 00:00:00 00:00:[address] 3.430.2.7 0.2.7.3.698 Ho spita .3.923475 084.8 l .8 2021-01-25 2021-01-25 Pre-Admiss Andres, 1.2.840.1 381332536 [id number] Methodi 13:17:20 14:17:20 ion Mata Liang 49562.1.[address] Testing 3.430.2.7 Hospit a .3.422569 l .8 2021-01-24 2021-01-24 Travel 1.2.840.1 1.2.856.349 9672 270794 Methodi 00:00:00 00:00:[address] 3.430.2.7 0.2.7.3.698 Ho spita .3.001862 084.8 l .8 2021-01-12 2021-01-12 Travel 1.2.840.1 1.2.288.860 2833 333851 Methodi 00:00:00 00:00:[address] 3.430.2.7 0.2.7.3.698 Ho spita .3.427574 084.8 l .8 2020-12-16 2020-12-16 Vick Reynolds 1.2.840.1 [id number] [id number] Methodi 00:00:00 00:00:[address] 3.430.2.7 Hospit a .3.572002 l .8 2020-12-13 2020-12-13 Telephone Joni, 1.2.840.1 [id number] 297 [id number] Methodi 00:00:00 00:00:[address] 3.430.2.7 Hospit a .3.684330 l .8 2020-11-23 2020-11-23 [facility], 1.2.840.1 [id number] 21 [id number] Methodi 12:42:00 19:00:00 Encounter Mata T. 94961.1.1 317 s t 3.430.2.7 Hospit a .3.023524 l .8 2020-11-23 2020-11-23 Anesthesia Mike Og 1.2.840.1 [id number] Methodi 16:22:00 17:40:00 Event Katty Covington 49454.1.[address] 3.430.2.7 Hospit a .3.396245 l .8 2020-11-23 2020-11-23 Surgery [facility], 1.2.840.1 [id number] 807 [id number] Methodi 15:10:00 16:40:[address]162.1.[address] 3.430.2.7 Hospit a .3.978812 l .8 2020-11-21 2020-11-21 Pre-Admiss [facility], 1.2.840.1 [id number] Methodi 15:44:14 16:44:14 ion Imrsangeeta T. 67945.1.[address] Testing 3.430.2.7 Hospit a .3.928590 l .8 2020-11-21 2020-11-21 Travel 1.2.840.1 1.2.739.622 7295 878559 Methodi 00:00:00 00:00:[address] 3.430.2.7 0.2.7.3.698 Ho spita .3.121042 084.8 l .8 2020-11-02 2020-11-02 [facility], 1.2.840.1 [id number] 21 [id number] Methodi 12:08:00 18:00:00 Encounter Mata Liang 01714.1.1 308 s t 3.430.2.7 Hospit a .3.885681 l .8 2020-11-02 2020-11-02 Anesthesia Dorian Dyer. 1.2.840.1 [id number] [id number] Methodi 13:58:00 16:11:00 Event Katty Covington 00522.1.[address] 3.430.2.7 Hospit a .3.204322 l .8 2020-11-02 2020-11-02 Surgery [facility], 1.2.840.1 700311187 998 [id number] Methodi 13:30:00 15:00:00 Mata Betancourt. 73151.1.[address] 3.430.2.7 Hospit a .3.484340 l .8 2020-11-01 2020-11-01 Pre-Admiss [facility], 1.2.840.1 [id number] Methodi 13:30:07 14:30:07 ion Mata Liang 65550.1.[address] Testing 3.430.2.7 Hospit a .3.224527 l .8 2020-11-01 2020-11-01 Travel 1.2.840.1 1.2.449.525 7145 692482 Methodi 00:00:00 00:00:[address] 3.430.2.7 0.2.7.3.698 Ho spita .3.947275 084.8 l .8 2020-10-24 2020-10-24 Outpatient DALLIN SINCLAIR SE 7511 08:44:00 23:59:00 [facility] 2020-10-19 2020-10-19 Hospital [facility], 1.2.840.1 [id number] 21 [id number] Methodi 10:05:00 17:11:00 Encounter Mata Liang 47196.1.1 493 s t 3.430.2.7 Hospit a .3.966145 l .8 2020-10-19 2020-10-19 Anesthesia TommydanishKenny aquino Shahidjas 1.2.840.1 [id number] Methodi 12:17:00 15:09:00 Event Katty Covington 87787.1.[address] 3.430.2.7 Hospit a .3.464807 l .8 2020-10-19 2020-10-19 Surgery [facility], 1.2.840.1 [id number] 654 [id number] Methodi 12:00:00 13:30:00 M[address] 72934.1.[address] 3.430.2.7 Hospit a .3.931795 l .8 2020 2020 Pre-Admiss [facility], 1.2.840.1 [id number] Methodi 13:03:57 14:03:57 ion Mata Liang 62091.1.[address] Testing 3.430.2.7 Hospit a .3.140767 l .8 2020 2020 Travel 1.2.840.1 1.2.528.361 8731 960831 Methodi 00:00:00 00:00:[address] 3.430.2.7 0.2.7.3.698 Ho spita .3.276102 084.8 l .8 2020-10-06 2020-10-06 Telephone Niesha, 1.2.840.1 [id number] [id number] Methodi 00:00:00 00:00:[address] 3.430.2.7 Hospit a .3.473425 l .8 2020-10-05 2020-10-05 [facility], 1.2.840.1 [id number] 21 [id number] Methodi 10:45:47 23:59:00 Encounter Mata Betancourt. 96894.1.1 579 s t 3.430.2.7 Hospit a .3.783823 l .8 2020-10-05 2020-10-05 [facility], 1.2.840.1 [id number] 21 [id number] Methodi 10:45:32 23:59:00 Encounter Mata Betancourt. 89970.1.1 581 s t 3.430.2.7 Hospit a .3.339611 l .8 2020-10-05 2020-10-05 [facility], 1.2.840.1 [id number] 21 [id number] Methodi 06:11:00 14:25:00 Encounter Mata Betancourt. 61545.1.1 969 s t 3.430.2.7 Hospit a .3.804062 l .8 2020-10-05 2020-10-05 Anesthesia Mike Og 1.2.840.1 [id number] Methodi 08:18:00 10:30:00 Event Marisol Clinton 41120.1.[address] 3.430.2.7 Hospit a .3.918902 l .8 2020-10-05 2020-10-05 Surgery [facility], 1.2.840.1 [id number] 601 [id number] Methodi 08:00:00 09:20:[address]13.1.[address] 3.430.2.7 Hospit a .3.119532 l .8 2020-10-03 2020-10-03 [facility] 1.2.840.1 [id number] 2 [id number] Methodi 15:16:26 23:59:00 Encounter shaimka 51875.1.[address] Dorian J. 3.430.2.7 Ho spita .3.022855 l .8 2020-10-03 2020-10-03 Pre-Admiss [facility], 1.2.840.1 [id number] Methodi 13:48:50 14:48:50 ion Mata Liang 35232.1.[address] Testing 3.430.2.7 Hospit a .3.819207 l .8 2020-10-03 2020-10-03 Travel 1.2.840.1 1.2.402.725 1860 770943 Methodi 00:00:00 00:00:[address] 3.430.2.7 0.2.7.3.698 Ho spita .3.856282 084.8 l .8 2020-09-28 2020-09-28 Travel 1.2.840.1 1.2.422.689 4691 752651 Methodi 00:00:00 00:00:[address] 3.430.2.7 0.2.7.3.698 Ho spita .3.379950 084.8 l .8 2020-07-14 2020-07-14 Emergency Josep Sheehan. 1.2.840.1 1041 17807 [id number] Methodi 10:33:00 19:19:00 Luci Felton 35232.1.[address] 3.430.2.7 Hospit a .3.413748 l .8 2020-07-14 2020-07-14 Anesthesia Kenny Coppola 1.2.840.1 [id number] Methodi 15:32:00 16:13:00 Event Murphy Carreno 44203.1.[address] 3.430.2.7 Hospit a .3.035359 l .8 2020-07-14 2020-07-14 Surgery Andres 1.2.840.1 [id number] 082 6958263 Methodi 15:30:00 16:10:[address].1.[address] 3.430.2.7 Hospit a .3.627230 l .8 2020-07-14 2020-07-14 Travel 1.2.840.1 1.2.271.838 4926 227344 Methodi 00:00:00 00:00:[address] 3.430.2.7 0.2.7.3.698 Ho spita .3.620417 084.8 l .8 2020-07-06 2020-07-06 [facility], 1.2.840.1 [id number] 21 [id number] Methodi 11:49:00 17:30:00 Encounter Mata Liang 85646.1.1 416 s t 3.430.2.7 Hospit a .3.388871 l .8 2020-07-06 2020-07-06 Anesthesia Mike Og 1.2.840.1 [id number] Methodi 14:12:00 15:43:00 Event Diana Arias 77517.1.[address] 3.430.2.7 Hospit a .3.027400 l .8 2020-07-06 2020-07-06 Surgery [facility], 1.2.840.1 [id number] 731 [id number] Methodi 13:30:00 15:05:00 Mata Betancourt. 41995.1.[address] 3.430.2.7 Hospit a .3.779790 l .8 2020-07-04 2020-07-04 Pre-Admiss [facility], 1.2.840.1 [id number] Methodi 12:26:49 13:26:49 ion Mata Betancourt. 21527.1.[address] Testing 3.430.2.7 Hospit a .3.505824 l .8 2020-07-04 2020-07-04 Travel 1.2.840.1 1.2.852.894 7256 850933 Methodi 00:00:00 00:00:[address] 3.430.2.7 0.2.7.3.698 Ho spita .3.893596 084.8 l .8 2020-07-01 2020-07-01 Travel 1.2.840.1 1.2.322.479 7465 944958 Methodi 00:00:00 00:00:[address] 3.430.2.7 0.2.7.3.698 Ho spita .3.865271 084.8 l .8 2020-06-29 2020-06-29 [id number] [facility] 09:53:00 14:52:00 Encounter M[facility] 2020-06-29 2020-06-29 Anesthesia [facility], [facility] [id number] [facility] 14:50:39 14:50:39 [facility] 2020-06-29 2020-06-29 Travel [facility] [id number] [facility] 00:[facility]00 00:00:00 [facility] 2020-06-24 2020-06-24 Hospital [facility] [id number] 12:07:22 23:59:00 Encounter [facility] 2020-06-24 2020-06-24 Outpatient EL [facility] [id number] [facility] 00:00:00 00:00:00 2020-06-24 2020-06-24 Orders [facility] [id number] 00:00:00 00:00:00 Only [facility] 2020-06-23 2020-06-23 Travel [facility] [id number] [facility] 00:[facility]00 00:00:00 [facility] 2020-06-22 2020-06-22 Office Bobby, 1.2.840.1 [id number] Methodi 15:17:00 16:01:05 Visit Lambert 15925.1.[address] Damian 3.430.2.7 Hospit a .3.890659 l .8 2020-06-22 2020-06-22 Travel 1.2.840.1 1.2.849.067 [id number] [facility] 00:00:00 00:00:[address] 3.430.2.7 0.2.7.3.698 Ho spita .3.653871 084.8 l .8 2020-06-01 2020-06-09 Inpatient E NEREIDA, [id number] 15:33:00 17:10:[address] [facility] [facility] 2020-05-25 2020-05-25 Office Rosales, 1.2.840.1 [id number] Methodi 14:49:30 15:23:54 Visit Vincent 24429.1.[address] Dmaian 3.430.2.7 Hospit a .3.139602 l .8 2020-05-25 2020-05-25 Travel 1.2.840.1 1.2.142.943 [id number] Methodi 00:00:00 00:00:[address] 3.430.2.7 0.2.7.3.698 Ho spita .3.344343 084.8 l .8 2020-05-04 2020-05-04 Outpatient LUCI DEE [facility] General Med [id number] [facility] 12:34:00 12:34:00 2020-05-03 2020-05-03 Outpatient ROSALES, [facility] [id number] [place] 00:00:00 00:00:00 VINCENT [address] 2020-05-02 2020-05-02 Outpatient ANDRES, [facility] 021 [id number] [place] 00:00:00 00:00:00 IMRAN [address] 2020-04-27 2020-04-27 Outpatient ANDRES, [facility] [id number] [place] 00:00:00 00:00:00 IMRAN [address] 2020-04-04 2020-04-04 Outpatient KATE, [facility] [id number] [place] 00:00:00 00:00:00 UTTAM [address] 2020-04-01 2020-04-01 Outpatient KATE, [facility] [id number] [place] 00:00:00 00:00:00 UTTAM [address] 2020-04-01 2020-04-01 Outpatient KATE, [facility] [id number] [place] 00:00:00 00:00:00 UTTAM [address] 2020-03-23 2020-03-25 Inpatient LUCI FELTON [facility] [id number] [place] 00:00:00 00:00:[address] 2020-03-23 2020-03-23 Outpatient ROSALES, [facility] [id number] [place] 00:00:00 00:00:00 VINCENT [address] 2020-03-18 2020-03-18 Outpatient ROSALES, [facility] [id number] [place] 00:00:00 00:00:00 VINCENT [address] 2020-03-11 2020-03-11 Outpatient ROSALES, [facility] [id number] [place] 00:00:00 00:00:00 VINCENT [address] 2020-02-04 2020-02-05 Outpatient LUCI FELTON [facility] [id number] [place] 00:00:00 00:00:00 906 Method i 2020-01-27 2020-01-27 Outpatient ANDRES, [facility] [id number] [place] 00:00:00 00:00:00 IMRAN [address] 2020-01-27 2020-01-27 Outpatient WOJCIECHOWS [facility] [id number] [place] 00:00:00 00:00:00 KI, 294 Method i DORIAN 2019-10-19 2019-10-20 Outpatient LUCI FELTON [facility] [id number] [place] 00:00:00 00:00:00 730 Method i 2019-08-24 2019-08-24 [id number] [place] 00:00:00 00:00:00 [address]MRAN [address] 2019-07-24 2019-07-24 Outpatient MHSE MHSE [id number] [facility] 10:54[facility]-08 2019-07-08 Outpatient MHSE MHSE [id number] MH 12:34:00 12:34:[address] [facility] 2019-03-20 2019-03-20 Outpatient MHSE MHSE [id number] MH 16:06:00 16:06:[facility] 2019-03-20 2019-03-20 Outpatient MHSE MHSE [id number] 12:22:00 12:22:[address] [facility] 2019-02-27 2019-02-27 Outpatient MHSE MHSE [id number] 11:11:00 11:11:[address] [facility] 2019-01-21 2019-01-21 Outpatient MHSE MHSE [id number] 09:45:00 09:45:[address] [facility] [address] 2018-01-28 2018-01-28 Outpatient EDUARDO OLGUIN [facility] CARDIO [id number] [facility] 07:49:00 23:59:00 [facility] 2017-11-28 2017-11-28 Orders Doctor LANDON 1.2.840.114 [id number] Univers 00:00:00 00:00:00 Only Unassigned, SEEVN 350.1.13.10 ity of [facility] 4.2.7.2.686 Hayden as 338.1342098 Medi negrita 009 Branch Results Test Description Test Time Test Comments Results Result Comments Source POC glucose 2023-05-29 15:06:00 Test Item Value Reference Range Interpretation Comme [facility] POC glucose (test code = 69 mg/dL 65-99 Ope rator Name: Arnaldo Cox ID: [id number]) [id number] able: [facility] Notified RN [facility] 12 [id number] 19:32:16 Test Item Value Reference Range Interpretation Comments Ventricular rate (test 106 code = 253) Atrial rate (test code 106 = 255) ND interval (test code 190 = 266) QRSD interval (test 96 code = 260) QT interval (test code 330 = 264) QTC interval (test code 438 = 265) P axis 1 (test code = 269 267) QRS axis 1 (test code = 269 268) T wave axis (test code 261 = 270) EKG impression (test Unusual P axis, code = 273) possible ectopic atrial tachycardia-Right superior axis deviation-Pulmonary disease pattern-Nonspecific T wave abnormality-Abnormal ECG-In automated comparison with ECG of 13-MAY-2022 02:38,-Ectopic atrial rhythm has replaced Sinus rhythm-Questionable change in QRS vtzq-Gmf-ccesgmxo change in ST segment in Inferior leads- [facility]-CoV-2 (COVID-19) RNA [Presence] in Respiratory specimen by SILVIA with probe [id number] 22:35:36 Test Item Value Reference Range Interpretation Comments SARS-CoV-2 (COVID-19) RNA Not detected [Presence] in Respiratory specimen by SILVIA with probe detection (test code = 25169-5) Whether patient is employed in a Unknown healthcare setting (test code = 10525-7) Whether the patient has symptoms Unknown related to condition of interest (test code = 39663-9) Whether the patient was Unknown hospitalized for condition of interest (test code = 33887-9) Whether the patient was admitted Unknown to intensive care unit (ICU) for condition of interest (test code = 31672-8) Whether patient resides in a Unknown congregate care setting (test code = 89775-3) status (test code = Unknown 69322-8) Date and time of symptom onset Unknown (test code = 19411-1) [facility]-CoV-2 (COVID-19) RNA [Presence] in Respiratory specimen by SILVIA with probe [id number] 18:32:09 Test Item Value Reference Range Interpretation Comments SARS-CoV-2 (COVID-19) RNA Not detected [Presence] in Respiratory specimen by SILVIA with probe detection (test code = 24413-3) Whether patient is employed in a Unknown healthcare setting (test code = 29958-8) Whether the patient has symptoms Unknown related to condition of interest (test code = 61279-9) Whether the patient was Unknown hospitalized for condition of interest (test code = 83260-6) Whether the patient was admitted Unknown to intensive care unit (ICU) for condition of interest (test code = 34803-9) Whether patient resides in a Unknown congregate care setting (test code = 09679-0) status (test code = Unknown 04715-3) Date and time of symptom onset Unknown (test code = 80470-6) [facility]-CoV-2 (COVID-19) RNA [Presence] in Respiratory specimen by SILVIA with probe [id number] 22:28:13 Test Item Value Reference Range Interpretation Comments SARS-CoV-2 (COVID-19) RNA Not detected [Presence] in Respiratory specimen by SILVIA with probe detection (test code = 38961-3) Whether patient is employed in a Unknown healthcare setting (test code = 14412-1) Whether the patient has symptoms Unknown related to condition of interest (test code = 91597-2) Whether the patient was Unknown hospitalized for condition of interest (test code = 58457-8) Whether the patient was admitted Unknown to intensive care unit (ICU) for condition of interest (test code = 04644-2) Whether patient resides in a Unknown congregate care setting (test code = 88138-1) status (test code = Unknown 05355-9) Date and time of symptom onset Unknown (test code = 57434-5) [facility] [id number] 11:22:00 Test Item Value Reference Range Interpretation Comments GLUCOSE BEDSIDE TESTING (test code = 62 MG/DL 60-99 N GLUBED) GLUCOSE BEDSIDE [id number] 07:27:00 Test Item Value Reference Range Interpretation Comments GLUCOSE BEDSIDE TESTING (test code = 70 MG/DL 60-99 N GLUBED) BASIC METABOLIC [id number] 06:21:00 Test Item Value Reference Range Interpretation Comments SODIUM (test code = 130 MMOL/L 137-145 L NA) POTASSIUM (test code = 4.9 MMOL/L 3.5-5.1 N K) CHLORIDE (test code = 96 MMOL/L 98-107 L CL) CARBON DIOXIDE (test 24 MMOL/L 22-30 N code = CO2) ANION GAP (test code = 15 MMOL/L 14-24 N GAP) GLUCOSE (test code = 72 MG/DL 74-106 L GLU) BLOOD UREA NITROGEN 40 MG/DL 9-20 H (test code = BUN) GLOMERULAR FILTRATION 5 Report ing units: RATE (test code = GFR) ml/mi n/1.73 m2 (Modified MDRD Formula)Referen ce Range: > or = 6 0 ml/min/1.73 m2 CREATININE (test code 13.10 MG/DL 0.66-1.25 H = CREAT) CALCIUM (test code = 12.2 MG/DL 8.4-10.2 H CA) THYROID STIMULATING [id number] 06:19:00 Test Item Value Reference Range Interpretation Comments THYROID STIMULATING 3.540 MIU/L 0.465-4.68 N Please b e aware that HORMONE (test code = bias re sults for TSH TSH) may occur forpa tient who are taking Biotin suppleme nts. PROTHROMBIN [id number] 05:37:00 Test Item Value Reference Range Interpretation Comments PROTHROMBIN TIME 13.4 SECONDS 9.5-12.7 H PATIENT (test code = PTP) INTERNATIONAL NORMAL 1.2 0.86-1.14 H The INR is to be RATIO (test code = used only for INR) monitoring oral anticoagulantth erap y. INDICATION INR VALUE ---- ---- ---- -------1. Prophylaxis, de ep venous thrombos is, including high risk surgery. 2.0 - 3.0 2. Prophylaxis, deep venous thrombosis, hip surgery, treatm ent for deep venous thrombosis or pulmonary prevention of systemic emboli sm in patients wit h valvular heart disease, atrial fibrillation, tissue heart va lve, or acute myocar dial infarction. 2.0 - 3.0 3. Windows Architect al prosthesis hear t valves, recurre nt systemic emboli sm. 3.0 - 4.5 CBC W/AUTO [id number] 05:36:00 Test Item Value Reference Range Interpretation Comments WHITE BLOOD CELL (test code = 7.9 K/MM3 3.8-9.8 N WBC) RED BLOOD CELL (test code = 4.76 M/MM3 3.95-5.67 N RBC) HEMOGLOBIN (test code = HGB) 13.4 G/DL 12.4-16.7 N HEMATOCRIT (test code = HCT) 45.2 % 35.9-49.5 N MEAN CELL VOLUME (test code = 95 fL 81.7-96.1 N MCV) MEAN CELL HGB (test code = MCH) 28.2 pg 27.6-33.2 N MEAN CELL HGB CONCETRATION 29.6 % 32.9-35.5 L (test code = MCHC) RED CELL DISTRIBUTION WIDTH 17.7 % 12.1-15.2 H (test code = RDW) PLATELET COUNT (test code = 180 K/MM3 129-368 N PLT) MEAN PLATELET VOLUME (test code 10.2 fl 7.4-10.4 N = MPV) NEUTROPHIL % (test code = NT%) 76.6 % 43-75 H IMMATURE GRANULOCYTE % (test 0.4 % 0.0-2.0 N code = IG%) LYMPHOCYTE % (test code = LY%) 14.5 % 14-44 N MONOCYTE % (test code = MO%) 6.8 % 4-13 N EOSINOPHIL % (test code = EO%) 1.4 % 0-6 N BASOPHIL % (test code = BA%) 0.3 % 0-2 N NUCLEATED RBC % (test code = 0.0 % 0-1.0 N NRBC%) NEUTROPHIL # (test code = NT#) 6.06 K/mm3 2.0-7.6 N IMMATURE GRANULOCYTE # (test 0.03 x10 3/uL 0-0.03 N code = IG#) LYMPHOCYTE # (test code = LY#) 1.15 K/mm3 1.0-3.8 N MONOCYTE # (test code = MO#) 0.54 K/mm3 0.1-0.8 N EOSINOPHIL # (test code = EO#) 0.11 K/mm3 0.0-0.2 N BASOPHIL # (test code = BA#) 0.02 K/mm3 0.0-0.2 N NUCLEATED RBC # (test code = 0.00 K/mm3 0.0-0.1 N NRBC#) GLUCOSE BEDSIDE [id number] 19:52:00 Test Item Value Reference Range Interpretation Comments GLUCOSE BEDSIDE TESTING (test code 118 MG/DL 60-99 H = GLUBED) GLUCOSE BEDSIDE [id number] 16:08:00 Test Item Value Reference Range Interpretation Comments GLUCOSE BEDSIDE TESTING (test code = 64 MG/DL 60-99 N GLUBED) [id number] 06:56:00 Test Item Value Reference Range Interpretation Comments ACT-ISTAT (test code = ACTI) 279 SEC 74-137 H BASIC METABOLIC [id number] 06:28:00 Test Item Value Reference Range Interpretation Comments SODIUM (test code = 136 MMOL/L 137-145 L NA) POTASSIUM (test code = 4.9 MMOL/L 3.5-5.1 N K) CHLORIDE (test code = 95 MMOL/L 98-107 L CL) CARBON DIOXIDE (test 28 MMOL/L 22-30 N code = CO2) ANION GAP (test code = 18 MMOL/L 14-24 N GAP) GLUCOSE (test code = 100 MG/DL 74-106 N GLU) BLOOD UREA NITROGEN 33 MG/DL 9-20 H (test code = BUN) GLOMERULAR FILTRATION 6 Report ing units: RATE (test code = GFR) ml/mi n/1.73 m2 (Modified MDRD Formula)Referen ce Range: > or = 6 0 ml/min/1.73 m2 CREATININE (test code 11.40 MG/DL 0.66-1.25 H = CREAT) CALCIUM (test code = 12.7 MG/DL 8.4-10.2 H CA) LIPID PROFILE (CORONARY RISK)2021-11-04 06:28:00 Test Item Value Reference Range Interpretation Comments TRIGLYCERIDES (test 179 MG/DL 150-199 N TRIGLYCE RIDES code = TRIG) REFERENCE RANGE:Normal: < 150 mg/dLBorderline High: 150-199 mg/dLHi gh: 200-499 mg/dLVe ry High: >=500 mg/ dL CHOLESTEROL (test code 83 MG/DL <200 = CHOL) HDL CHOLESTEROL (test 28 MG/DL 40-59 L code = HDL) LIPOPROTEIN LDL (test < 30 MG/DL 0-99 N OPTIM AL.........<100 code = LDL) mg/dLNEAR OPTIMAL/ABOVE OPTIMAL........ .100-1 29 mg/dL BORDER LINE HIGH.........13 0-159 mg/dL HIGH.........16 0-189 mg/dL VERY HIGH.........>/ = 190 mg/dL [id number] 06:28:00 Test Item Value Reference Range Interpretation Comments MAGNESIUM (test code = MAG) 2.8 MG/DL 1.6-2.3 H PROTHROMBIN [id number] 06:09:00 Test Item Value Reference Range Interpretation Comments PROTHROMBIN TIME 13.3 SECONDS 9.5-12.7 H PATIENT (test code = PTP) INTERNATIONAL NORMAL 1.2 0.86-1.14 H The INR is to be RATIO (test code = used only for INR) monitoring oral anticoagulantth erap y. INDICATION I NR VALUE ---- ---- ---- -------1. Prophylaxis, de ep venous thrombos is, including high risk surgery. 2.0 - 3.0 2. Prophylaxis, deep venous thrombosis, hip surgery, treatm ent for deep venous thrombosis or pulmonary prevention of systemic emboli sm in patients wit h valvular heart disease, atrial fibrillation, tissue heart va lve, or acute myocar dial infarction. 2.0 - 3.0 3. Windows Architect al prosthesis hear t valves, recurre nt systemic emboli sm. 3.0 - 4.5 PTT [id number] 06:09:00 Test Item Value Reference Range Interpretation Comments PTT ACTIVATED (test code = APTT) 38.9 SECONDS 25.1-36.5 H CBC W/AUTO [id number] 05:58:00 Test Item Value Reference Range Interpretation Comments WHITE BLOOD CELL (test code = 7.5 K/MM3 3.8-9.8 N WBC) RED BLOOD CELL (test code = 5.17 M/MM3 3.95-5.67 N RBC) HEMOGLOBIN (test code = HGB) 14.7 G/DL 12.4-16.7 N HEMATOCRIT (test code = HCT) 50.1 % 35.9-49.5 H MEAN CELL VOLUME (test code = 97 fL 81.7-96.1 H MCV) MEAN CELL HGB (test code = MCH) 28.4 pg 27.6-33.2 N MEAN CELL HGB CONCETRATION 29.3 % 32.9-35.5 L (test code = MCHC) RED CELL DISTRIBUTION WIDTH 18.0 % 12.1-15.2 H (test code = RDW) PLATELET COUNT (test code = 200 K/MM3 129-368 N PLT) MEAN PLATELET VOLUME (test code 11.0 fl 7.4-10.4 H = MPV) NEUTROPHIL % (test code = NT%) 71.1 % 43-75 N IMMATURE GRANULOCYTE % (test 0.1 % 0.0-2.0 N code = IG%) LYMPHOCYTE % (test code = LY%) 18.5 % 14-44 N MONOCYTE % (test code = MO%) 9.1 % 4-13 N EOSINOPHIL % (test code = EO%) 0.9 % 0-6 N BASOPHIL % (test code = BA%) 0.3 % 0-2 N NUCLEATED RBC % (test code = 0.0 % 0-1.0 N NRBC%) NEUTROPHIL # (test code = NT#) 5.31 K/mm3 2.0-7.6 N IMMATURE GRANULOCYTE # (test 0.01 x10 3/uL 0-0.03 N code = IG#) LYMPHOCYTE # (test code = LY#) 1.38 K/mm3 1.0-3.8 N MONOCYTE # (test code = MO#) 0.68 K/mm3 0.1-0.8 N EOSINOPHIL # (test code = EO#) 0.07 K/mm3 0.0-0.2 N BASOPHIL # (test code = BA#) 0.02 K/mm3 0.0-0.2 N NUCLEATED RBC # (test code = 0.00 K/mm3 0.0-0.1 N NRBC#) COVID 19 Asymptomatic IH [id number] 05:23:00 Test Item Value Reference Range Interpretation Comments COVID 19 NEGATIVE Negative "Negative resul ts from Asymptomatic IH AG patients with symptom (test code = onset beyondfiv e days, COVNONPUIAG) should be treat ed as presumptive, andconfirmation with a molecular assay , if necessary forpa tient management may be performed. Nega tive results do notr ule out COVID-19 and sh ould not be used as the sole basisfor treatm ent or patient managem ent decisions, includinginfect ion control decisio ns. Negative result s should beconsidered in the context of a pa tients recent exposure s,history, and the presenc e of clinical signs and symptomsconsist ent with COVID-19.This t est detects both vi able andnon-viable S ARS-CoV and SARS CoV-2. Test performance dep endson the amount of virus (antigen) in the sample." Spec Comments: PRE-OPPOC [id number] 18:55:34 Test Item Value Reference Range Interpretation Comments POC glucose (test 93 mg/dL 65-99 Vertical Lathe Operator N alonzo: Jimbo code = 48784-2) DarrelynDevi ce ID: [id number] able: [facility] Notified RN [facility] 12 [id number] 12:04:51 Test Item Value Reference Range Interpretation Comments Ventricular rate (test code = 253) Atrial rate (test code = 255) ND interval (test code = 266) QRSD interval (test code = 260) QT interval (test code = 264) QTC interval (test code = 265) P axis 1 (test code = 267) QRS axis 1 (test code = 268) T wave axis (test code = 270) EKG impression (test code Sinus rhythm with = 273) 1st degree AV block- [facility] and [id number] 03:07:00 Test Item Value Reference Range Interpretation Comments ABO grouping (test code = 883-9) O Rh type (test code = 14131-1) POS Antibody screen (gel) (test code = NEG 890-4) [facility] ZwiktynwDFJH-AqD-3 (COVID-19) RNA [Presence] in Respiratory specimen by SILVIA with probe [id number] 07:45:48 Test Item Value Reference Range Interpretation Comments SARS-CoV-2 (COVID-19) RNA [Presence] Detected Not-Detected in Respiratory specimen by SILVIA with probe detection (test code = 99518-9) Whether patient is employed in a healthcare setting (test code = 10799-0) Whether the patient has symptoms related to condition of interest (test code = 48296-0) Patient was hospitalized because of this condition (test code = 62913-9) Whether the patient was admitted to intensive care unit (ICU) for condition of interest (test code = 68437-4) Whether patient resides in a congregate care setting (test code = 44188-1) [facility]-CoV-2 (COVID-19) RNA [Presence] in Respiratory specimen by SILVIA with probe [id number] 01:22:24 Test Item Value Reference Range Interpretation Comments SARS-CoV-2 (COVID-19) RNA Not detected Not-Detected [Presence] in Respiratory specimen by SILVIA with probe detection (test code = 16419-8) Whether patient is employed in a healthcare setting (test code = 97558-9) Whether the patient has symptoms related to condition of interest (test code = 39526-9) Patient was hospitalized because of this condition (test code = 09613-9) Whether the patient was admitted to intensive care unit (ICU) for condition of interest (test code = 86311-2) Whether patient resides in a congregate care setting (test code = 21656-2) [place] [address] [id number] 22:19:41 Test Item Value Reference Range Interpretation Comments Ventricular rate (test code = 253) Atrial rate (test code = 255) ND interval (test code = 266) QRSD interval (test code = 260) QT interval (test code = 264) QTC interval (test code = 265) P axis 1 (test code = 267) QRS axis 1 (test code = 268) T wave axis (test code = 270) EKG impression (test Sinus code = 273) tachycardia-Possible Left atrial enlargement-Right axis deviation-Abnormal ECG-In automated comparison with ECG of 27-JAN-2021 23:10,-No significant change was found- [facility] [id number] 23:34:12 Test Item Value Reference Range Interpretation Comments POC glucose (test code = 99067-0) 119 mg/dL 65-99 H Lab Interpretation (test code = Abnormal 07624-4) [facility] Vw [id number] 21:00:00 Examination: XR CHEST 1 VW PORTABLE Clinical history: preop Comparison: 01/27/2021 IMPRESSION: The lungs are unchanged with some minimal right midlung atelectasis or scarring again seen. No pneumothoraces are identified. There are no apparent pleural effusions. The cardiomediastinal silhouette and the remainder of the chest appear essentially unchanged. [id number] Interface, Radiology Results Incom ing - 03/29/2021 4:03 PM CDT Examination: XR CHEST 1 VW PORTABLEClinical history: preopComparison: 01/27/2021IMPRESSION: The lungs are unchanged with some minimal right midlung atelectasis or scarring again seen.No pneumothoraces are identified. There are no apparent pleural effusions.The cardiomediastinal silhouette and the remainder of the chest appear essentially unchanged.[id number] Peripheral [id number] 19:50:14Mckenna Dickens MD 03/29/2021 2:50 PMPeripheral Block Date/Time: 03/29/2021 2:50 PM Patient Location: Pre-opStart Time: 03/29/2021 2:36 PMReason for Block: at surgeon's request Performed by: anesthesiologistAnesthesiologist: Mckenna Dickens, MDResident/DOUGH CATCHER/AA: Catina Adorno MDAuthorized by: Mckenna Dickens MD Preprocedure: patient identified, IV checked, site and side verified,risks and benefits discussed, procedure verified, surgical consent complete, patient position confirmed, monitors and equipment checked, pre-op evaluation complete, site marked, timeout performed priorto procedure and coagulation status reviewed Peripheral Nerve Block: Patient Position: Supine Prep: ChloraPrep Monitoring: Blood pressure monitoring, continuous pulse oximetry and heart rateBlock Type: SupraclavicularLaterality: RightInjection Technique: Single injectionProcedures: ultrasound guided Ultrasound documentation: Printed/placed in chartLocal Infiltration (See MAR for details): LidocaineLoss of Twitch: 0.3 mANeedle: Needle Type: Pajunk Needle Gauge: 22 GAssessment: Injection Assessment: Vi sualized needle/local anesthetic surrounding nerve, visualized pertinent vascular [...] 50 mcgMIDAZolam PF (VERSED) injection 1 mg/1 mL, 1 mgropivacaine 0.5 % PF (mL), 20 mLIR Bilateral Lower Extremity [id number] 16:02:07ARTERIOGRAM OF BILATERAL LOWER EXTREMITIES: Performing James Pearson MD AssistantsNone Anesthesia TypeModerate sedation was administered by the procedure nurse and monitored by the procedure physician for a total pgbl-gf-tubi sedation time of 60 minutes Lidocaine 1% was used for local anesthetic. Jywirohoru76 years old male with end-stage renal disease presented for evaluation for access placement. Procedures:1. Abdominal aortogram.2. Pelvic arteriogram.3. Bilateral lower extremities arteriograms. Technique: Written informed consent was obtained prior to the procedure. The patient was placed in a supine position and the right groin was sterilely prepared and draped in the routine manner.Lidocaine 1% was used for local anesthetic. Using real-time ultrasound guidance, a 21-gauge micropuncture needle was used to access the right common femoral artery in a retrograde fashion. A 0.018 inchguidewire was advanced centrally through the needle under fluoroscopy. The needle was removed, and amicropuncture sheath system was then placed. The inner dilator and guidewire were then removed, and a 0.035 inch J-wire was advanced through the micropuncture sheath and into the abdominal aorta under fluoroscopy. The micropuncture sheath was removed, and a 5-Pakistani vascular sheath was then placed. Under ultrasound guidance, documentation of vessel patency, needle access with permanent recording, and reporting are performed followed by placement of a sheath in the right common femoral artery. A right common femoral artery arteriogram was performed via contrast injection of the sheath. A 5 Pakistani pigtail catheter was advanced over a 0.035 wire and placed within the mid abdominal aorta, aortogram was then performed. The catheter was then removed and a 5 Pakistani Cobra catheter was advanced within theleft common iliac artery and repeat arteriogram performed. This was performed by A 5 Pakistani Cobra catheter was advanced over a 0.035 [...] FINDINGS AND IMPRESSION:1. Abdominal aorta is patent withoutaneurysm or stenosis.2. Pelvic arteriogram demonstrates patent bilateral common, external and internal iliac arteries. 3. Left lower extremity angiogram demonstrates a moderate short segment stenosis (a pproximately 70%) of proximal left SFA adjacent to [...] common femoral, SFA, profunda and popliteal arteries. [facility]- [id number] Interface, Radiology Results Incoming - 03/17/2021 11:05 AM CDT ARTERIOGRAM OF BILATERAL LOWER EXTREMITIES:Performing RadiologistBob Pearson MD AssistantsNone Anesthesia TypeModerate sedation was administered by the procedure nurse and monitored by the procedure physician for a total donp-ds-dnhj sedation time of 60 minutes Lidocaine 1% was used for local anesthetic. Crrytbrlbp30 years old male with end-stage renal disease presented for evaluation for access placement.Procedures:1. Abdominal aortogram.2. Pelvic arteriogram.3. Bilateral lower extremities arteriograms.Technique:Written informed consent was obtained prior to the procedure. The patient was placed in a supine position and the right groin was sterilely prepared and draped in the routine manner. Lidocaine 1% was used for local anesthetic. Using real-time ultrasound guidance, a 21- gauge micropuncture needle was used to accessthe right common femoral artery in a retrograde [...] The micropuncture sheath was removed, and a 5-Pakistani vascular sheath was then placed. Under ultrasound guidance, documen tation of vessel patency, needle access with permanent recording, and reporting are performed followed by placement of a sheath in the right common femoral artery.A right common femoral artery arteriogram was performed via contrast injection of the sheath.A 5 Pakistani pigtail catheter was advanced over a 0.035 wire and placed within the mid abdominal aorta, aortogram was then performed. The catheter was then removed and a 5 Pakistani Cobra catheter was advanced within the left common iliac artery and repeat arteriogram performed. This was performed byA 5 Pakistani Cobra catheter was advanced over a 0.035 [...] including right external iliac, common femoral, SFA, popli teal and tibial arteries. The right common femoral [...] right common femoral, SFA, profunda and popliteal arteries.[id number] HospitalIR Bilateral Lower Extremity [id number] 16:09:44Performing RadiologistBob Pearson MD BILATERAL LOWER EXTREMITIES VENOGRAM: AssistantsNone Pre Procedure Hphifzjby62 years old male with end-stage renal disease. Post Procedure DiagnosisSame.Status post bilateral common femoral venograms. Procedures1. Bilateral common femoral venograms2. Inferior venacavogram. ANESTHESIA TYPE:Moderate sedation was administered by the procedure nurse and monitored by the procedure physician for a ogmc-ah-cgtl sedation time of 60 minutes. Lidocaine 1% was used for local anesthetic. TechniqueWritten informed consent was obtained prior to the procedure. The patient wasplaced in a supine position. The right groin was sterilely prepared and draped in the routine manner. All elements maximal sterile barrier technique were followed. Lidocaine 1% was used for local anesthetic. Using real-time ultrasound guidance, a 21- gauge micropuncture needle was used to access the right common femoral vein. A 0.018 inch guidewire was advanced through the needle centrally under fluoro scopy. The needle was removed and a micropuncture [...] then removed over the guidewire, and a 5-Pakistani vascular sheath was placed. A right common femoral venogram was then performed with injection of contrast through the 5-Pakistani vascular sheath. An inferior venacavogram was then performed. A 5-Pakistani rim catheter was then advanced over the guidewire. Using a 0.035 inch glide, the remnant catheter was advanced into the left common iliac vein. Eventually, the catheter was advanced into the left common femoral vein. A left common femoral venogram was then performed with injection of contrast. The cat heter was then pulled back and advanced into [...] veins. 3. Patent IVC without flow-limiting stenosis. [facility]-[id number] Interface, Radiology Results Incoming - 03/16/2021 11:12 AM CDT Performing RadiologistNassonia Pearson MD BILATERAL LOWER EXTREMITIES VENOGRAM:AssistantsNone Pre Procedure Pjmkhrhat15 years old male with end-stage renal disease.Post Procedure DiagnosisSame.Status post bilateral common femoral venograms. Procedures1. Bilateral common femoral venograms2. Inferior venacavogram. ANESTHESIA TYPE:Moderate sedation was administered by the procedure nurse and monitored by the procedure physician for a ohrt-zq-uygi sedation time of 60 minutes. Lid ocaine 1% was used for local anesthetic. TechniqueWritten informed consent was obtained prior to theprocedure. The patient was placed in a supine [...] a 0.035 inch J-wire was advanced through themicropuncture sheath and into the inferior vena cava. The micropuncture sheath was then removed overthe guidewire, and a 5-Pakistani vascular sheath was placed. A right common femoral venogram was then performed with injection of contrast through the 5-Pakistani vascular sheath. An inferior venacavogram was then performed. A 5- Pakistani rim catheter was then advanced over the guidewire. Using a 0.035 inch gli de, the remnant catheter was advanced into the [...] Blood LossLess than 1 mL Blood/Blood Products Ad ministeredNone Grafts/ImplantsNone Impression: 1. There is mild short segment narrowing of left common femoral vein. 2. Patent bilateral common and external iliac veins.3. Patent IVC without flow-limiting stenosis.[facility]-[id number] [facility] Bilateral Upper Extremity [id number] 18:38:45 Performing RadiologistShadi Rogel MD AssistantsNone Anesthesia TypeLidocaine 1% was [...] post bilateral upper extremity venograms ProceduresRight upper extremity venogram TechniqueWritten informed consent was obtained prior to the procedure. The patient was placed in a supine position. The left upper extremity was sterilely prepared and draped in the routine manner. All elements maximal sterile barrier technique were followed. Lidocaine 1% was used for local anesthetic. Using real- time ultrasound guidance, a 21-gauge micropuncture needle was used to access the left brachial vein. A 0.018 inch guidewire was advanced through the needle centrally under fluoroscopy.The needle was removed and a micropuncture sheath system was then placed. Under ultrasound guidance,documentation of vessel patency, needle access with permanent recording, and reporting are performed followed by placement of a micropuncture sheath in the left brachial vein. Left upper venogram was performed through the micropuncture sheath. The micropuncture sheath was then removed and replaced with a 5 Pakistani vascular sheath and a 5 Pakistani Kumpe catheter was used to subselect the left brachiocephalic vein, SVC as well as the right brachiocephalic, subclavian, axillary and brachial veins and additional venograms were performed from the above locations. The Kumpe catheter and sheath were removed and hemostasis was achieved with manual compression. The patient tolerated the procedure well. Radiation DoseKa,r = 741 mGy [...] is markedly sluggish in both upper extremities. [facility]-[id number] Interface, Radiology Results Incoming - 03/10/2021 1:41 PM CDT Performing RadiologistRohit Juan F MD AssistantsNone Anesthesia TypeLidocaine 1% was used for local anesthetic. Moderate Sedation: Under physician supervision, Versed and fentanyl were administered intravenously for moderate sedation. Pulse oximetry, heart rate, and blood pressure were continu ously monitored by an independent trained observer present. [...] micropuncture sheath system was then placed. Under ultrasoundguidance, documentation of vessel patency, needle access with permanent recording, and reporting areperformed followed by placement of a micropuncture sheath in the left brachial vein. Left upper venogram was performed through the micropuncture sheath. The micropuncture sheath was then removed and replaced with a 5 Pakistani vascular sheath and a 5 Pakistani Kumpe catheter was used to subselect the left br achiocephalic vein, SVC as well as the right brachiocephalic, subclavian, axillary and brachial veins and additional venograms were performed from the above locations.The Kumpe catheter and sheath wereremoved and hemostasis was achieved with manual compression. The patient tolerated the procedure well. Radiation DoseKa,r = 741 mGy ComplicationsNone Specimens RemovedNone Estimated Blood LossLess than10 mL Blood/Blood Products AdministeredNone Grafts/ImplantsNone Impression: 1. Left upper extremity venogram demonstrates a patent common brachial, axillary, subclavian, brachiocephalic veins and SVC. 2. Right upper extremity venogram demonstrates patent right brachiocephalic, subclavian, axillary andbrachial veins. Extensive postoperative change in the right upper arm with numerous stents and priorgrafts. 3. Central venous return is markedly sluggish in both upper extremities.[facility]-[id number] Bilateral Upper Extremity Odjomuukmpr2636-61-66 15:12:51Performing RadiologistShadi Ma Anesthesia TypeModerate sedation was administered by the procedure nurse and monitored by the procedure physician for a total lgyi-lp-gyxf sedation time of approximately 45 minutes. Lidocaine [...] The micropuncture sheath was removed, and a 5-Pakistani vascular sheath was then placed. Under ultrasound guidance, documentation of vessel patency, needle access with permanent recording, and reporting are performed followed by placement of a sheath in the right common femoral artery. A right common femoral arteriogram was then performed with injection of contrast through the 5-Pakistani vascular sheath to evaluate the arterial access into the right common femoral artery. A 5-Pakistani pigtail catheter was advanced successfully into the ascending thoracic aorta. An arch aortogram was then performed with injection of contrast in the leftanterior oblique projection. Exchange was then made for a 5-Pakistani H1 catheter which was used to select the brachiocephalic trunk artery. Using a stiff 0.035 inch angled Glidewire, both the catheter and guidewire were advanced successfully into the right axillary artery. Right upper extremity arteriograms were then performed with injection of contrast. Using a 0.035 J-wire, the H1 catheter was then ad vanced into the mid right brachial artery. Additional [...] Additional left upper extremity arteriograms were then performedwith injection of contrast. The multipurpose catheter was then removed from the 5-Pakistani vascular sheath. The 5-Pakistani vascular sheath was removed the right common femoral artery, and a Mynx closure device was used for hemostasis. The patient tolerated the procedure well. Radiation DoseKa,r = 453 mGy ComplicationsNone Specimens RemovedNone [...] palmar arch. Common digital arteries are faintly opacified. 3. Left upper extremity arteriograms demonstrate no significant axillaryor brachial artery stenosis. High takeoff of the [...] right common femoral arteriogram demonstrates a normal-appearing r ight common femoral artery without stenosis or dissection. Access into the right common femoral was deemed appropriate for placement of a Mynx closure device, which was successfully deployed as described above. Interface, Radiology Results Incoming - 03/10/2021 10:15 AM CDT Performing RadiologistRohit Juan F MDAssistantsNone Anesthesia TypeModerate sedation was administered by the procedure nurse and monitored by the procedure physician fora total kwgn-ue-dphl sedation time of approximately 45 minutes. Lidocaine 1% was also used for localanesthetic. Pre Procedure DiagnosisEnd stage renal disease, arteriogram [...] The micropuncture sheath was removed, and a 5-Pakistani vascular sheath was then placed. Under ultrasound guidance, documentation of vessel patency, needle access with permanent recording, and reporting are performed followed by placement of a sheath in the right common femoral artery. A right common femoral arteriogram was then performed with injection of contrast through the 5-Pakistani vascular sheath to evaluate the arterial access into the right common femoral artery. A 5-Pakistani pigtail catheter was advanced successfully into the ascending thoracic aorta. An arch aortogram was then performed withinjection of contrast in the left anterior oblique projection. Exchange was then made for a 5-FrenchH1 catheter which was used to select the [...] multipurpose catheter was then removed from the 5-Pakistani vascular sheath. The 5-Pakistani vascular sheath was removed the right common femoral artery, and a Mynx closure device was used for hemostasis. The patient tolerated the procedure well.Radiation DoseKa,r = 453 mGy ComplicationsNone Specimens [...] are widely patent without narrowing.2. Right upper ex tremity arteriograms demonstrate no significant axillary or brachial artery stenosis. High takeoff of the ulnar artery. Radial, interosseous and ulnar arteries are patent to the wrist with minimal multifocal atherosclerosis of the ulnar artery at the mid and distal forearm.. Radial artery supplies thepalmar arch. Common digital arteries are faintly opacified.3. Left upper extremity arteriograms demonstrate no significant axillary or brachial artery stenosis. High takeoff of the radial artery at themid left upper arm. Radial artery is diminutive [...] femoral artery without stenosis or dissection. Access intothe right common femoral was deemed appropriate for placement of a Mynx closure device, which was successfully deployed as described above.[facility]cl[facility] RBC 2021-01-28 04:02:00 Test Item Value Reference Range Interpretation Comments Product name (test code Red Blood Cells -1, = 25) Leukored Unit number (test code = [id number]) Product code (test code M4561X34 = 3092) Dispense status (test Transfused code = 24) Blood expiration date (test code = 302) Blood type code (test code = 308) Blood type (test code = O POSITIVE 1314) Compatibility (test code Compatible = 6400) [facility] WorthPrepare [id number] 04:02:00 Test Item Value Reference Range Interpretation Comments Product name (test code Red Blood Cells -1, = 25) Leukored Unit number (test code = [id number]) Product code (test code M5528Z80 = 3092) Dispense status (test Transfused code = 24) Blood expiration date (test code = 302) Blood type code (test code = 308) Blood type (test code = O POSITIVE 1314) Compatibility (test code Compatible = 6400) [facility] ED Preliminary Interpretation - Not an [id number] 03:35:12 Test Item Value Reference Range Interpretation Comments JOHN (test code = JOHN) Lenny Mayo MD 01/28/2021 5:46 [facility] Preliminary Interpretation - Not an OrderPerformed by: Lenny Mayo MDAuthorized by: Lenny Mayo MD ECG reviewed by ED Physician in the absence of a mini baccarat dealer: yes Previous ECG: Previous ECG: UnavailableInterpretat ion: Interpretation: abnormal Rate: ECG rate: 111 ECG rate assessment: tachycardic Rhythm: Rhythm: sinus tachycardia Ectopy: Ectopy: none QRS: QRS axis: Left QRS intervals: NormalConduction: Conduction: normal ST segments: ST segments: Non-specificT waves: T waves: non-specific and inverted Inverted: V3, V4, V5 and H7Jomzpprt: Sinus tachycardia, nonspecific ST-T changes Lab Interpretation Abnormal (test code = 80719-4) [facility] ED Preliminary Interpretation - Not an [id number] 03:35:12 Test Item Value Reference Range Interpretation Comments JOHN (test code = JOHN) Lab Interpretation (test code = Abnormal 10052-6) [facility] [place] [facility] [id number] 22:38:08EXAMINATION: OR FL < 1 HOUR CLINICAL HISTORY: intraoperative IMPRESSION: Fluoroscopy was provided. No radiologist present. Please see procedure report for discussion of procedure, findings. [id number] Interface, Radiology Results Incoming - 01/27/2021 5:41 PM CDTFormatting of this note might bedifferent from the original.EXAMINATION: OR FL < 1 HOURCLINICAL HISTORY: intraoperativeIMPRESSION:Fluoroscopy was provided. No radiologist present. Please see procedure report for discussion of procedure, findings.HMRM-WPHYDPKMethodiShriners Hospitals for ChildrenBwwooayoPgmijz5311-63-50 20:31:15 Kelly Zuñiga MD 01/27/2021 3:31 PMAirway Location: OR Performed by: DOUGH CATCHER/AAAnesthesiologist: Kelly Zuñiga V., MDResident/DOUGH CATCHER/AA: Jozef Frey CRNAAuthorized by: Kelly Zuñiga MD Difficult Airway: No Preoxygenated with 100% O2: Yes C-spine Precautions Maintained Throughout: Yes Mask Ventilation: Easy maskFinal Airway Type: Supraglottic airwayFinal LMA: I-GelLMA Size: 5Number of Attempts at Approach: 1SARS-CoV-2 (COVID-19) RNA [Presence] in Respiratory specimen by SILVIA with probe [id number] 22:48:14 Test Item Value Reference Range Interpretation Comments SARS-CoV-2 (COVID-19) RNA Not detected Not-Detected [Presence] in Respiratory specimen by SILVIA with probe detection (test code = 96243-8) Whether patient is employed in a healthcare setting (test code = 23374-1) Whether the patient has symptoms related to condition of interest (test code = 98477-7) Patient was hospitalized because of this condition (test code = 04697-2) Whether the patient was admitted to intensive care unit (ICU) for condition of interest (test code = 43280-6) Whether patient resides in a congregate care setting (test code = 04729-0) [facility] TEXASARS-CoV-2 (COVID-19) RNA [Presence] in Respiratory specimen by SILVIA with probe [id number] 21:51:15 Test Item Value Reference Range Interpretation Comments SARS-CoV-2 (COVID-19) RNA Not detected Not-Detected [Presence] in Respiratory specimen by SILVIA with probe detection (test code = 27579-9) Whether patient is employed in a healthcare setting (test code = 28043-5) Whether the patient has symptoms related to condition of interest (test code = 02124-9) Patient was hospitalized because of this condition (test code = 02207-6) Whether the patient was admitted to intensive care unit (ICU) for condition of interest (test code = 57173-9) Whether patient resides in a congregate care setting (test code = 20913-3) [facility]2021-03-03 22:46:34Marisol Clinton CRNA 11/23/2020 4:47 PMAirway Date/Time: 11/23/2020 4:30 PM Location: OR Performed by: DOUGH CATCHER/AAAnesthesiologist: Mike Og, MDResident/DOUGH CATCHER/AA: Marisol Clinton CRNAAuthorized by: Mike Og MD Urgency: ElectiveDifficult Airway: No Preoxygenated with 100% O2: Yes C-spine Precautions Maintained Throughout: Yes Mask Ventilation: Easy maskFinal Airway Type: Supra glottic airwayFinal LMA: I-GelLMA Size: 5Number of Attempts at Approach: 1 SARS-CoV-2 (COVID-19) RNA [Presence] in Respiratory specimen by SILVIA with probe [id number] 23:59:37 Test Item Value Reference Range Interpretation Comments SARS-CoV-2 (COVID-19) RNA Not detected Not-Detected [Presence] in Respiratory specimen by SILVIA with probe detection (test code = 84239-0) [facility]2021-02-10 20:26:58Murphy Carreno 11/02/2020 2:27 PMAirway Location: OR Performed by: DOUGH CATCHER/AAAnesthesiologist: Dorian Dyer MDResident/DOUGH CATCHER/AA: Murphy Carreno RAuthorized by: Dorian Dyer MD Urgency: ElectiveDifficult Airway: No Preoxygenated with 100% O2: Yes C-spine Precautions Maintained Throughout: Yes Mask Ventilation: Not attemptedFinal Airway Type: Supraglottic airwayFinal LMA: UniqueLMA Size: 5Number of Attempts at Approach: 1 Soft Tissue Intact, able to ventilate with no leak and minimal peak inspiratory pbpxyanqcSFNJ-MkB-8 (COVID- 19) RNA [Presence] in Respiratory specimen by SILVIA with probe [id number] 00:08:02 Test Item Value Reference Range Interpretation Comments SARS-CoV-2 (COVID-19) RNA Not detected Not-Detected [Presence] in Respiratory specimen by SILVIA with probe detection (test code = 03890-2) [facility]21[facility] 18:55:41WeMarisol garrido CRNA 10/19/2020 12:56 PMAirway Date/Time: 10/19/2020 12:35 PM Location: OR Performed by: LINO/AAAnesthesiologist: Kenny Coppola MDResident/DOUGH CATCHER/AA: Marisol Clinton CRNAAuthorized by: Kenny Coppola MD Urgency: ElectiveDifficult Airway: No Preoxygenated with 100% O2: Yes C-spine Precautions Maintained Throughout: Yes Mask Ventilation: Easy maskFinal Airway Type: Supraglottic airwayFinal LMA: I-GelLMA Size: 5Number of Attempts at Approach: 1SARS-CoV-2 (COVID-19) RNA [Presence] in Respiratory specimen by SILVIA with probe [id number] 01:14:03 Test Item Value Reference Range Interpretation Comments SARS-CoV-2 (COVID-19) RNA Not detected Not-Detected [Presence] in Respiratory specimen by SILVIA with probe detection (test code = 69313-8) [facility] duplex arterial lower [id number] 18:47:08 EXAM: Right lower extremity arterial Doppler [...] 99.8 cm/sMid: 77.7 cm/sDistal: 88.9 cm/s POSTERIOR TIBIAL:Proximal:92.8 cm/sMid: 64.1 cm/sDistal: 100.8 cm/s ANTERIOR TIBIAL:Proximal: 104.5 cm/sMid: 46.2 cm/sDistal: 62.5 cm/s DORSALIS PEDIS: 83.7 cm/s [facility]-[id number] [facility], Radiology Results 10/05/2020 12:50 PM CST EXAM: Right lower extremity arterial DopplerHISTORY: Pain and swellingTECHNIQUE: Real-time as well as pulsed and color [...] contour without aneurysmal dilatation. Waveforms are triphasic throughout.PEAK SYSTOLIC VELOCITIES: RIGHT LEG: COMMON FEMORAL: 116.2cm/sFEMORAL:Proximal: 122.3 cm/sMid: 125.5 cm/sDistal: 132.2 cm/sPOPLITEAL:Proximal: 99.8 cm/sMid: 77.7 cm/sDistal: 88.9 cm/sPOSTERIOR TIBIAL:Proximal: 92.8 cm/sMid: 64.1 cm/sDistal: 100.8 cm/sANTERIOR TIBIAL:Proximal: 104.5 cm/sMid: 46.2 cm/sDistal: 62.5 cm/sDORSALIS PEDIS: 83.7 cm/[id number] HospitalUs duplex venous lower grdwiarep0592-39-64 18:46:30EXAMINATION: US DUPLEX VENOUS LOWER EXTREMITY RIGHT CLINICAL HISTORY: I82.411 Acute embolism and thrombosis of right femoral vein, Leg deep vein thrombosis (DVT) suspected COMPARISON: None. TECHNIQUE: G rayscale, color Doppler, and spectral waveform analysis of the right lower extremity deep venous system was performed. The common femoral, superficial femoral, proximal deep femoral, greater saphenous,and popliteal veins were evaluated. The calf veins were also evaluated. FINDINGS:The right common fem oral, superficial femoral, and popliteal veins are compressible as is the limited evaluation of the left common femoral vein. They demonstrate normal venous waveforms and response to augmentation. There is flow in the visualized calf veins. There is no evidence of a popliteal or Lombardo's cyst. IMPRESSION: No evidence of DVT within the right lower extremity named vessels as described above. [facility]-[id number] Interface, Radiology Results - 10/05/2020 12:49 PM CSTFormatting of this note might bedifferent from the original.EXAMINATION: US DUPLEX VENOUS LOWER [...] veins.There is no evidence of a popliteal orBaker's cyst.IMPRESSION:No evidence of DVT within the right lower extremity named vessels as described above. [facility]-[id number] HospitalAirway 2020-10-05 14:50:09Lauren Fung CRNA 10/05/2020 8:50 AMAirway Location: OR Performed by: anesthesia residentAnesthesiologist: Mike Og MDResidaniat/DOUGH CATCHER/AA: Lauren Fung CRNAAuthorized by: Mike Og MD Urgency: ElectiveDifficult Airway: No Preoxygenated with 100% O2: Yes C- spine Precautions Maintained Throughout: Yes Mask Ventilation: Not attemptedFinal Airway Type: Supraglottic airwayFinal LMA: I-GelLMA Size: 5Number of Attempts at Approach: 1SARS-CoV-2 (COVID-19) RNA [Presence] in Respiratory specimen by SILVIA with probe [id number] 09:48:49 Test Item Value Reference Range Interpretation Comments SARS-CoV-2 (COVID-19) RNA Not detected Not-Detected [Presence] in Respiratory specimen by SILVIA with probe detection (test code = 15345-5) [facility] Pre/Post [id number] 01:10:17 Test Item Value Reference Range Interpretation Comments Ventricular rate (test code = 253) Atrial rate (test code = 255) ND interval (test code = 266) QRSD interval (test code = 260) QT interval (test code = 264) QTC interval (test code = 265) P axis 1 (test code = 267) QRS axis 1 (test code = 268) T wave axis (test code = 270) EKG impression (test code = 273) [facility] WorthXR Chest 2 [id number] 21:33:47EXAMINATION: XR CHEST 2 VW CLINICAL HISTORY: Z01.818 Encounter for other preprocedural examination, Pre OP Testing COMPARISON: Most Recent Prior at [facility] IMPRESSION: 1. The heart and pulmonary vasculature are normal. There are no acute infiltrates or effusions. The lungs are clear. Osseous structures intact. [facility]-[id number] Interface, Radiology Results Incoming - 10/03/2020 3:36 PM CST EXAMINATION: XR CHEST 2 VWCLINICAL HISTORY: Z01.818 Encounter for other preprocedural examination, Pre OP TestingCOMPARISON: Most Recent Prior at HIMPRESSION:1. The heart and pulmonary vasculature are normal. There are no acute infiltrates or effusions. The lungs are clear. Osseous structures intact.[facility]-[id number] HospitalANESTHESIA PERIPHERAL [id number] 11:51:24SaShiela javier MD 08/02/2020 11:53 AMPeripheral Block Patient location during procedure: holding areaStart time: 06/29/2020 8:50 AMEnd time: 06/29/2020 9:00 AM Procedure Indication: at surgeon's request Preanesthetic ChecklistCompleted: patient identified, pre-op evaluation, timeout performed, IVchecked, risks and benefits discussed, monitors and equipment checked, anesthesia consent given, prep site dry prior to draping and maximum sterile barriers were used: cap, mask, sterile gown, sterile gloves, and large sterile sheet StaffingAnesthesiologist: Shiela Ovalles MD PrepPrep: chlorhexidine gluconate and isopropyl alcoholProcedures: sterile gloves, surgical mask, surgical hat, steriletechnique and prep and sterile drape applied Peripheral Nerve BlockPatient position: supinePatient monitoring: EKG, HR, BP and IuZ7Rkslwzpqbm: rightBlock type: supraclavicularInjection technique: single- shotultrasound guided - in plane, prescan was completed prior to procedure and needle tip was visualized throughout the entire procedureBlock Dose: ropivicaine and single-shotInfiltration strength: 0.5 %Dose: 30 mL NeedleNeedle Localization: US guided AssessmentPain scale pre-procedure: 0Pain scale post- procedure: 0LOC: Sedated with meaningful contactsupplemental oxygen used.no evidence of intravascular injection and no heart rate changeno paresthesiapatient had no immediate complications and patient tolerated the procedure wellCHI [facility] CenterARS-CoV-[facility] (COVID-19) RNA [Presence] in Respiratory specimen by SILVIA with probe [id number] 18:30:46 Test Item Value Reference Range Interpretation Comments SARS-CoV-2 (COVID-19) RNA Not detected Not-Detected [Presence] in Respiratory specimen by SILVIA with probe detection (test code = 23039-4) [facility]ITAL[facility]2020-10-14 19:20:32Marisol Toledo 07/06/2020 2:55 PMAirway Date/Time: 07/06/2020 2:20 PMPerformed by: Marisol ToledooAuthorized by: Mike Og MD Location: ORUrgency: ElectiveDifficult Airway: No Anesthesiologist: Mike Og MDResident/DOUGH CATCHER/AA: Gigi Toledoformed by: resident/DOUGH CATCHER/AAPreoxygenated with 100% O2: Yes C-spine Precautions Maintained [...] cmH2O. Ventilation adequate. No damage to oropharynx. VSS.SARS-CoV-2 (COVID-19) RNA [Presence] in Respiratory specimen by SILVIA with probe [id number] 22:20:30 Test Item Value Reference Range Interpretation Comments SARS-CoV-2 (COVID-19) RNA Not detected Not-Detected [Presence] in Respiratory specimen by SILVIA with probe detection (test code = 69370-0) [facility] HOSPITALPotassium2020-10-07 11:09:00 Test Item Value Reference Range Interpretation Comments Potassium (test code = 5.4 meq/L 3.6-5.5 Speci men 2823-3) slightly hemolyzed JOHN (test code = JOHN) Vertical Lathe Operator ID - ADMIN Lab Interpretation Normal (test code = 40900-5) [facility] 11:09:00 Test Item Value Reference Range Interpretation Comments POTASSIUM (BEAKER) 5.4 meq/L 3.6-5.5 Specimen slightly (test code = 379) hemolyzed Vertical Lathe Operator ID - ADMINPOC-Glucose panos2815-16-34 10:48:00 Test Item Value Reference Range Interpretation Comments POC-Glucose Meter (test 93 mg/dL 70-110 : TE STED AT [facility] code = 1538) [address] [facility], [facility] [address]: Vertical Lathe Operator/Techni oscar ID = [id number] for Melani Yañez cca Lab Interpretation (test Normal code = 39633-9) [facility] [id number] 10:48:00 Test Item Value Reference Range Interpretation Comments POC-GLUCOSE METER 93 mg/dL 70-110 : TESTED A T [facility] 1317 (BEAKER) (test code = [address] [facility], 1538) [facility] [place] [address]: Vertical Lathe Operator/Techni oscar ID = [id number] for Fatou Walden [id number] 00:00:00Ordered by an unspecified provider.[facility] (Asymptomatic ONLY)2020-06-25 00:02:00 Test Item Value Reference Range Interpretation Comments SARS-COV2/RT-PCR Negative Not Detected, (test code = Negative, See 03752-5) external report for linked test SARS-COV-2 [facility] PERFORMING LAB (test code = 43132-1) JOHN (test code = Negative result for [...] of the Act. Fact Sheet for Healthcare Providers:https://www.Drawn to Scale ideBridgePoint Medical.[employer]/sites/default/f ernestine/product/documents/F act_Sheet_HC_Providers_L jhc_RGBP-UnK-1.pdf Fact Sheet for Healthcare Patients:https://www.Concard del.[employer]/sites/default/fi les/product/documents/Fa ct_Sheet_Patients_Lyra_S ARS-CoV-2.pdf Performing Laboratory:[facility] [place] [address] [facility] ([facility])2020-06-25 00:02:00 Test Item Value Reference Range Interpretation Comments SARS-COV2/RT-PCR (test Negative Not Detected, Negative, code = 7477714) See external report for linked test SARS-COV-[address] [facility] (test code = 5537134) Negative result for this test determines that [...] justifying the authorization of the emergency use ofin vitro diagnostic tests for detection and/or diagnosis of COVID-19 is terminated under Section 564(b)(2) of the Act or the EUA is revoked under Section 564(g) of the Act.Fact Sheet for Healthcare Prov iders:https://www.[employer]/sites/default/files/product/documents/Fact_Sheet_HC _Ehsktsbui_Hgjj_XOLK-QkI-9.pdfFact Sheet for Healthcare Patients:https://www.[employer]/sites/default/files/product/docume nts/Iaws_Lfalp_Csfrfjxs_Uarh_NVPI-BgZ-8.pdfPerforming Laboratory:[facility], [place] [address]SVO with platelet count + automated [id number] 14:04:00 Test Item Value Reference Range Interpretation Comments WBC (test code = 5.6 See_Comment [Automated 6690-2) message] The system which generated this result transmit geronimo reference range : 4.0 - 10.0 K/ L. The reference range was not u sed to interpret th is result as normal/abnormal . RBC (test code = 4.30 See_Comment [Automated 789-8) message] The system which generated this result [...] MPV (test code = 9.3 fL 6-11.5 80909-0) nRBC (test code = 0 See_Comment [Automate [...] normal. Lab Interpretation Abnormal (test code = 10579-4) [facility] W/PLT COUNT & AUTO [id number] 14:04:00 Test Item Value Reference Range Interpretation [...] (test code = 890-4) NE[facility]IVE [facility]CHO [facility] Metabolic [id number] 13:11:00 Test Item Value Reference Range Interpretation [...] (test code = 11.1 mg/dL 8.5-10.5 H 84360-1) EGFR (test code = 7 mL/min/1.73 [place] [address]-7) NOT ACCURATE CREATININE CLEARANCE IN PREDICTING GLOMERULAR FILTRATION RATE . ESTIMATED GFR I S NOT APPLICABLE FOR DIALYSIS PATIENTS. JOHN (test code = JONH) Vertical Lathe Operator ID - ADMIN Lab Interpretation Abnormal (test code = 71424-2) [facility] METABOLIC [id number] 13:11:00 Test Item Value Reference Range Interpretation [...] S NOT APPLICABLE FOR DIALYSIS PATIEN TS. Vertical Lathe Operator ID - ADMINPT/oZLO9697-01-89 13:10:00 Test Item Value Reference Interpretation Comments Range Protime (test code = 12.4 See_Comment H [Autom ated 5902-2) message] The system which generated this result transmitted reference range : 9.3 - 12.0 sec. The reference range was not used to interpret this result as normal/abnormal . INR (test code = 1.15 See_Comment [Automated 9131-6) message] The system which generated this result transmitted reference range : <=5.90. The reference range was not used to interpret this result as normal/abnormal . PTT (test code = 27.7 See_Comment [Automated 64652-9) message] The system which generated this result [...] Output) Lab Interpretation Abnormal (test code = 04627-0) [facility]PT/[id number] 13:10:00 Test Item Value Reference Range Interpretation [...] code [address], = 1538) [place] [address]: Vertical Lathe Operator/Techni oscar ID = [id number] for Makayla Cardenas HEPATITIS B SURFACE [id number] 11:33:00 Test Item Value Reference Range Interpretation Comments HEPATITIS B SURFACE ANTIBODY 59.2 mIU/mL <8.0 H (BEAKER) (test code = 647) Vertical Lathe Operator ID - ASIYA CPOCT-GLUCOSE [id number] 04:50:00 Test Item Value Reference Range Interpretation Comments POC-GLUCOSE METER 140 mg/dL 70-110 H : TESTED A T [facility] [address]17 (BEAKER) (test code [address], = 1538) [place] [address]: Vertical Lathe Operator/Techni oscar ID = [id number] for Cristel streeter Ifolindainwa POCT-GLUCOSE [id number] 22:25:00 Test Item Value Reference Range Interpretation Comments POC-GLUCOSE METER 117 mg/dL 70-110 H : TESTED A T [facility] [address] (BEAKER) (test code [address], = 1538) [place] [address]: Vertical Lathe Operator/Techni oscar ID = [id number] for Cristel streeter, Ifolindainjames HEPATITIS B SURFACE [id number] 21:34:00 Test Item Value Reference Range Interpretation Comments HEPATITIS B SURFACE ANTIGEN (2) Nonreactive Nonreactive (BEAKER) (test code = 2585) Vertical Lathe Operator ID - JUSTINPOCT-GLUCOSE [id number] 18:50:00 Test Item Value Reference Range Interpretation Comments POC-GLUCOSE METER 107 mg/dL 70-110 : TESTED A T [facility] [address] (BEAKER) (test code [address], = 1538) [place] [address]: Vertical Lathe Operator/Techni oscar ID = [id number] for Holly Ojedar POCT-GLUCOSE [id number] 17:31:00 Test Item Value Reference Range Interpretation Comments POC-GLUCOSE METER 64 mg/dL 70-110 L : TESTED A T [facility] [address] (BEAKER) (test code = [address], 1538) [place] [address]: Vertical Lathe Operator/Techni oscar ID = [id number] for Savannahtamara leung Ayinor SARS-COV2/RT-PCR ([facility])2020-05-05 16:35:00 Test Item Value Reference Range Interpretation Comments SARS-COV2/RT-PCR (test Negative Not Detected, Negative, code = 6485364) See external report for linked test SARS-COV-[address] [facility] (test code = 3896115) Negative result for this test determines that [...] justifying the authorization of the emergency use ofin vitro diagnostic tests for detection and/or diagnosis of COVID-19 is terminated under Section 564(b)(2) of the Act or the EUA is revoked under Section 564(g) of the Act.Fact Sheet for Healthcare Prov iders:https://www.[employer]/sites/default/files/product/documents/Fact_Sheet_HC _Jdlvasxlt_Kdor_QAIB-ZqD-1.pdfFact Sheet for Healthcare Patients:https://www.[employer]/sites/default/files/product/docume nts/Uvky_Otojm_Lulfpmva_Wmav_PXQH-PdB-7.pdfPerforming Laboratory:[facility], [place] [address]YSST-QPFLWME METER 2020-05-05 13:07:00 Test Item Value Reference Range Interpretation Comments POC-GLUCOSE METER 116 mg/dL 70-110 H : TESTED A T [facility] [address] (BEAKER) (test code [address], = 1538) [place] [address]: Vertical Lathe Operator/Techni oscar ID = [id number] for Danni Ojedainor POCT-GLUCOSE [id number] 12:24:00 Test Item Value Reference Range Interpretation Comments POC-GLUCOSE METER 55 mg/dL 70-110 L : TESTED A T [facility] [address] (BEAKER) (test code = [address], 1538) [place] [address]: Vertical Lathe Operator/Techni oscar ID = [id number] for Danni Ojedainor POCT-GLUCOSE [id number] 11:38:00 Test Item Value Reference Range Interpretation Comments POC-GLUCOSE METER 51 mg/dL 70-110 L : TESTED A T [facility] [address] (BEAKER) (test code = [address], 1538) [place] [address]: Vertical Lathe Operator/Techni oscar ID = [id number] for Holly Ojedar COMPREHENSIVE METABOLIC [id number] 06:51:00 Test Item Value Reference Range Interpretation [...] S NOT APPLICABLE FOR DIALYSIS PATIEN TS. Vertical Lathe Operator ID - osox32HJEY-LMGHENI [id number] 06:23:00 Test Item Value Reference Range Interpretation Comments POC-GLUCOSE METER 104 mg/dL 70-110 : TESTED A T [facility] (BEAKER) (test code [address], = 1538) [place] [address]: Vertical Lathe Operator/Techni oscar ID = [id number] for Nael Hughes ph POCT-GLUCOSE [id number] 21:00:00 Test Item Value Reference Range Interpretation Comments POC-GLUCOSE METER 176 mg/dL 70-110 H : TESTED A T [facility] [address] (BEAKER) (test code [address], = 1538) [place] [address]: Vertical Lathe Operator/Techni oscar ID = [id number] for Nael Hughes ph TROPONIN [id number] 17:22:00 Test Item Value Reference Range Interpretation [...] failure, acidosis, acute neurological disease, and persistent tachyarrhythmia.Vertical Lathe Operator ID - MIGUELZLIPID PANEL 2020-05-04 17:17:00 Test Item Value Reference Range Interpretation Comments TRIGLYCERIDES (BEAKER) (test code = 76 mg/dL 540) CHOLESTEROL (BEAKER) (test code = 79 mg/dL 631) HDL CHOLESTEROL (BEAKER) (test code 38 mg/dL = 976) LDL CHOLESTEROL CALCULATED (BEAKER) 26 mg/dL (test code = 633) Triglyceride Reference Range: Low Risk <150 Borderline 150-199 High Risk 200- 499 Very High Risk >=500Cholesterol Reference Range: Low Risk <200 Borderline 200-239 High Risk >240HDL Cholesterol Reference Range: Low Risk >=60 High Risk <40LDL Cholesterol Reference Range: Optimal <100 Near Optimal 100-129 Borderline 130-159 High 160-189 Very High >=190 Vertical Lathe Operator ID - AGONZALEZOperator ID - AGONZALEZOperator ID - AGONZALEZHEPATIC FUNCTION PANEL 2020-05-04 17:17:00 Test Item Value Reference [...] (test code = 11 U/L 5-50 347) Vertical Lathe Operator ID - [id number] 17:15:00 Test Item Value Reference Range Interpretation Comments MAGNESIUM (BEAKER) (test code = 2.8 mg/dL 1.5-3.0 627) Vertical Lathe Operator ID - AGONZALEZBASIC METABOLIC [id number] 17:13:00 Test Item Value Reference Range Interpretation [...] S NOT APPLICABLE FOR DIALYSIS PATIEN TS. Vertical Lathe Operator ID - [id number] 17:11:00 Test Item Value Reference Range Interpretation Comments PHOSPHORUS (BEAKER) (test code = 4.6 mg/dL 2.5-4.5 H 604) Vertical Lathe Operator ID - AGONWEROPROTHROMBIN TIME/[id number] 17:06:00 Test Item Value Reference Range Interpretation [...] Information (Auto Output)CBC W/PLT COUNT & AUTO [id number] 16:50:00 Test Item Value Reference Range Interpretation [...] in Respiratory specimen by SILVIA with probe [id number] 01:59:18 Test Item Value Reference Range Interpretation Comments SARS-CoV-2 (COVID-19) RNA Not detected Not-Detected [Presence] in Respiratory specimen by SILVIA with probe detection (test code = 54884-2) [facility]-CoV-2 (COVID-19) RNA [Presence] in Respiratory specimen by SILVIA with probe [id number] 08:29:59 Test Item Value Reference Range Interpretation Comments SARS-CoV-2 (COVID-19) RNA Not detected Not-Detected [Presence] in Respiratory specimen by SILVIA with probe detection (test code = 91193-6) [facility] coronavirus 2 RNA [Presence] in Respiratory specimen by SILVIA with probe [id number] 16:34:38 Test Item Value Reference Range Interpretation Comments SARS coronavirus 2 RNA Not detected Not-Detected [Presence] in Respiratory specimen by SILVIA with probe detection (test code = 01262-1) [facility] coronavirus 2 RNA [Presence] in Respiratory specimen by SILVIA with probe [id number] 00:19:38 Test Item Value Reference Range Interpretation Comments SARS coronavirus 2 RNA Not detected Not-Detected [Presence] in Respiratory specimen by SILVIA with probe detection (test code = 44689-7) [facility], CV ACCESS, [id number] 10:40:00 FINAL REPORT Procedure title: Tunneled right internal jugular vein hemodialysiscatheter placement using ultrasound and fluoroscopy, 10/23/2018. History: [...] Estimated blood loss was 10 ml . Conclusion: Placement of tunneled hemodialysis catheter. Signed: Rodriguez Crocker MDReport Verified Date/Time: 10/27/2018 10:40:38 Reading Location: [facility] B1 P048 Angio Body Reading Room ANAEROBIC [id number] 10:36:00 Test Item Value Reference Range Interpretation Comments CULTURE (BEAKER) (test No anaerobes isolated code = 1095) POCT-GLUCOSE [id number] 18:17:00 Test Item Value Reference Range Interpretation Comments POC-GLUCOSE METER 129 mg/dL 70-110 H TESTED AT [facility] 131[facility] (BEAKER) (test code [facility] [place] = 1538) [address] BASIC METABOLIC [id number] 14:45:00 Test Item Value Reference Range Interpretation [...] PATIEN TS. CBC W/PLT COUNT & AUTO [id number] 14:35:00 Test Item Value Reference Range Interpretation [...] L 0.00-0.20 (test code = 417) POCT-GLUCOSE [id number] 11:29:00 Test Item Value Reference Range Interpretation Comments POC-GLUCOSE METER 189 mg/dL 70-110 H TESTED AT [address] (BEAKER) (test code [facility] [place] = 1538) [address] POCT-GLUCOSE [id number] 05:51:00 Test Item Value Reference Range Interpretation Comments POC-GLUCOSE METER 117 mg/dL 70-110 H TESTED AT [address] (BEAKER) (test code [address] [facility] [place] = 1538) [address] POCT-GLUCOSE [id number] 21:42:00 Test Item Value Reference Range Interpretation Comments POC-GLUCOSE METER 120 mg/dL 70-110 H TESTED AT [address] ([facility]) (test code [address] [facility] [place] = 1538) [address] POCT-GLUCOSE [id number] 20:08:00 Test Item Value Reference Range Interpretation Comments POC-GLUCOSE METER 128 mg/dL 70-110 H TESTED AT [address] ([facility]) (test code [address] [facility] [place] = 1538) [address] [id number] 17:01:00 Test Item Value Reference Range Interpretation Comments PHOSPHORUS ([facility]) (test code = 6.9 mg/dL 2.5-4.5 H 604) POCT-GLUCOSE [id number] 12:06:00 Test Item Value Reference Range Interpretation Comments POC-GLUCOSE METER 122 mg/dL 70-110 H TESTED AT [address] ([facility]) (test code [address] [facility] [place] = 1538) [address] TISSUE [id number] 09:54:00Surgical Pathology Report Case: [id number] Authorizing Provider: Lisa Greenberg MD Collected: 01/31/2018 1110 Ordering Location: [facility] Med Surg 5th Floor Received: 01/31/2018 1249 Pathologist: Sherri Zarate MD Specimen: Leg, Left Lower, NECROTIC TISSUE LEFT LOWER LEG SKIN AND SOFT TISSUE, LEFT LOWER LEG, EXCISION: - SKIN AND SUBCUTIS WITH NECROSIS, ACUTE AND CHRONIC INFLAMMATION, BACTERIAL COLONIZATION AND CALCIFICATION OF BLOOD VESSELS, CONSISTENT WITH CALCIPHYLAXIS (SEE COMMENT) Signing Pathologist Direct Phone Line: [phone] signed by Sherri Zarate MD on 02/03/2018 at 9:54 AMCalcification of small and medium sized blood vessels are identified along with extensive necrosis of tissue. 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 [address]98[address]Ljt givenLeg, left lower, necrotic tissue leftlower legThe specimen is received in fixative and designated as "leg, left lower" and consists of skin and subcutaneous tissue (6.0 x 4.0 x 2.0 cm). The overlying skin is brown-patterson and smooth. No discrete lesions. The underlying soft tissue is soft and necrotic. Fruit Picker Machine Operator sections of the skin andsoft tissue are submitted into A1 to A3. MG/pl Performed [facility], Department of Pathology, [facility] [place] [address], Ubbvxv [facility], Department of Pathology, [address] [place] [address], [facility], Department of [facility]ology, [address] [place] [address], UOZ W/PLT COUNT & AUTO [id number] 09:08:00 Test Item Value Reference Range Interpretation [...] code = 1+ few 961) BASIC METABOLIC [id number] 08:39:00 Test Item Value Reference Range Interpretation [...] APPLICABLE FOR DIALYSIS PATIEN TS. HEMOGLOBIN AND [id number] 08:25:00 Test Item Value Reference Range Interpretation Comments HEMOGLOBIN ([facility]) (test code = 6.5 GM/DL 13.0-16.8 L 410) HEMATOCRIT ([facility]) (test code = 19.0 % 40.0-50.0 L 411) POCT-GLUCOSE [id number] 21:42:00 Test Item Value Reference Range Interpretation Comments POC-GLUCOSE METER 121 mg/dL 70-110 H TESTED AT [address] ([facility]) (test code [address] [facility] [place] = 1538) [address] POCT-GLUCOSE [id number] 16:40:00 Test Item Value Reference Range Interpretation Comments POC-GLUCOSE METER 134 mg/dL 70-110 H TESTED AT [address] ([facility]) (test code [address] [facility] [place] = 1538) [address] POCT-GLUCOSE [id number] 12:00:00 Test Item Value Reference Range Interpretation Comments POC-GLUCOSE METER 84 mg/dL 70-110 TESTED AT [address] ([facility]) (test code = [address] [facility] 1538) [address] SURGICALLY OBTAINED CULTURE + GRAM [id number] 08:12:00 Test Item Value Reference Interpretation Comments Range CULTURE ([facility]) METHICILLIN A 2+ Methicil antelmo (test code [...] = 13) GRAM STAIN RESULT 4+ WBCs (AKER) (test code = 1123) GRAM STAIN RESULT 1+ gram positive (AKER) (test code = cocci in clusters 296604) CBC W/PLT COUNT & AUTO [id number] 06:19:00 Test Item Value Reference Range Interpretation [...] L 0.00-0.20 (test code = 417) POCT-GLUCOSE [id number] 06:01:00 Test Item Value Reference Range Interpretation Comments POC-GLUCOSE METER 122 mg/dL 70-110 H TESTED AT [address] ([facility]) (test code [facility] [place] = 1538) [address] POCT-GLUCOSE [id number] 21:23:00 Test Item Value Reference Range Interpretation Comments POC-GLUCOSE METER 178 mg/dL 70-110 H TESTED AT [address] ([facility]) (test code [facility] [place] = 1538) [address] POCT-GLUCOSE [id number] 16:29:00 Test Item Value Reference Range Interpretation Comments POC-GLUCOSE METER 165 mg/dL 70-110 H TESTED AT [address] ([facility]) (test code [address] [facility] [place] = 1538) [address] POCT-GLUCOSE [id number] 11:59:00 Test Item Value Reference Range Interpretation Comments POC-GLUCOSE METER 131 mg/dL 70-110 H TESTED AT [address] ([facility]) (test code [address] [facility] [place] = 1538) [address] POCT-GLUCOSE [id number] 05:22:00 Test Item Value Reference Range Interpretation Comments POC-GLUCOSE METER 104 mg/dL 70-110 TESTED AT [address] ([facility]) (test code [facility] [place] = 1538) [address] POCT-GLUCOSE [id number] 22:48:00 Test Item Value Reference Range Interpretation Comments POC-GLUCOSE METER 122 mg/dL 70-110 H TESTED AT [address] ([facility]) (test code [facility] [place] = 1538) [address] HEPATITIS B SURFACE [id number] 20:44:00 Test Item Value Reference Range Interpretation Comments HEPATITIS B SURFACE ANTIBODY 10.2 mIU/mL <8.0 H ([facility]) (test code = 647) POCT-GLUCOSE [id number] 18:00:00 Test Item Value Reference Range Interpretation Comments POC-GLUCOSE METER 127 mg/dL 70-110 H TESTED AT [address] ([facility]) (test code [facility] [place] = 1538) [address] BASIC METABOLIC [id number] 11:02:00 Test Item Value Reference Range Interpretation [...] PATIEN TS. CBC W/PLT COUNT & AUTO [id number] 10:36:00 Test Item Value Reference Range Interpretation [...] = 1+ few 966) HEPATITIS B SURFACE [id number] 07:50:00 Test Item Value Reference Range Interpretation Comments HEPATITIS B SURFACE ANTIGEN (2) Nonreactive Nonreactive (BEAKER) (test code = 6645) BASIC METABOLIC [id number] 07:45:00 Test Item Value Reference Range Interpretation [...] = 358) GLUCOSE RANDOM 89 mg/dL 70-110 (AKER) (test code = 652) CALCIUM (BEAKER) 9.8 mg/dL 8.5-10.5 (test code = 697) EGFR (BEAKER) (test 10 mL/min/1.73 ESTIMA GERONIMO GFR IS code = 1092) sq m NOT ACCURATE CREATININE CLEARANCE IN PREDICTING GLOMERULAR FILTRATION RATE . ESTIMATED GFR I S NOT APPLICABLE FOR DIALYSIS PATIEN TS. POCT-GLUCOSE [id number] 06:32:00 Test Item Value Reference Range Interpretation Comments POC-GLUCOSE METER 82 mg/dL 70-110 TESTED AT [address] ([facility]) (test code = [address] [facility] 1538) [address] POCT-GLUCOSE [id number] 17:47:00 Test Item Value Reference Range Interpretation Comments POC-GLUCOSE METER 106 mg/dL 70-110 TESTED AT [address] ([facility]) (test code [address] [facility] [place] = 1538) [address] CBC W/PLT COUNT & AUTO [id number] 16:41:00 Test Item Value Reference Range Interpretation Comments WHITE BLOOD CELL COUNT (AKER) 8.0 K/ L 4.0-10.0 (test code = [...] code = 2+ moderate 963) BASIC METABOLIC [id number] 16:21:00 Test Item Value Reference Range Interpretation [...] NOT APPLICABLE FOR DIALYSIS PATIEN TS. PROTHROMBIN [id number] 16:17:00 Test Item Value Reference Range Interpretation Comments PROTIME (BEYARI) (test code = 11.2 seconds 9.3-12.0 759) INR (BEAKER) (test code = 370) 1.0 <=5.9 RECOMMENDED COUMADIN/WARFARIN INR THERAPY RANGESSTANDARD DOSE: 2.0 - 3.0 Includes: PROPHYLAXIS for venous thrombosis, systemic embolization; TREATMENT for venous thrombosis and/or pulmonary embolus.HIGH RISK: Target INR is 2.5-3.5 for patients with mechanical heart valves. Notes Date/Time Note Provider Source 2021-11-05 14:19:00-00:00 [facility] ([facility]) Discharge Summary REPORT#:[id number] REPORT STATUS: Signed DATE:11/05/21 TIME: 1419 PATIENT: RODRIGUE STEPHENS UNIT #: [id number] ROOM/BED: [address] : 88 AGE: 31 SEX: M ATTEND: Alex Lucas MD ADM AUTHOR: William Dinero MD * ALL edits or amendments must be made on the el [employer]/computer document * General Information Problem List/A P: 1. CAD S/P percutaneous coronary angioplasty 2. ESRD (end stage renal disease) on dialysis 3. HTN, goal below 140/80 4. DM2 (diabetes mellitus, type 2) 5. Hypercalcemia 6. Exertional dyspnea Free Text A P: Pt seen and examined in bed, related no cp/sob. He remains in NSR o/n, BP controlled and repeat lab sh owed serum potassium unchanged at 4.9 after 3 doses lokelma o/n. Pt has been seen by his nephrologis t and given chair time for dialysis tomorrow at 2pm, th en resume previous outpt TTS dialysis scheduled. He' s on asa, plavix, and resume warfarin yesterday for his AV graft thrombosis. Pt advised f/u dr Mendez 1-2 weeks as scheduled. Date of admission: Observation Start Date: 11/04/21 Date of admission: 11/04/21 Discharge date: 11/05/21 Discharge diagnosis: 1. s/p PTCI RCA 2. ESRD on TTS HD, on renal transplant list 3. HTN, controlled 4. 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 DM2, diet controlled 6. Hypercalcemia, 2/2 esrd Hospital course: 31 yoM with ESRD, HTN, and D M2 who's on renal transplant list at [facility] and been c /o exertional dyspnea, brought in by his cardiol ogist Dr mendez for elective cardiac angiogram as part of his pre-op workup. Pt noted to have RCA lesion and undergone successful PTCI. Post procedure, he wa s observed o/n without arrhythmia. He's not uremic or fluid overloaded the next day, thus avoid the need for emergent HD. Pt is seen by his signaling project engineer and is scheduled to have HD tomorrow, then resume his regular outpt TTS dial ysis. He's started on asa and plavix post PTCI by Dr Suyapa doshi, and also resume his home warfarin for his h/o AV graft thrombosis. pt advised f/u Dr mendez next week as instructed. Consultants: cardiology, nephrology Pt. condition on discharge: fair, improved, stab le Med Rec PCP PCP: PCP: Edwin Mendez MD Med Rec Discharge meds: Continue taking these medications: WARFARIN (COUMADIN) 10 MG TAB 10 MILLIGRAM ORAL DAILY. ATORVASTATIN (LIPITOR) 40 MG TAB 40 MILLIGRAM ORAL DAILY. SEVELAMER CARBONATE (RENVELA) 800 MG TAB 800 MILLIGRAM ORAL THREE TIMES DAILY WITH MEALS . INSULIN ASPART (NovoLOG) 100 UNIT/ML VIAL 1 UNITS SUBCUTANEOUS DIRECTED. MIRTAZAPINE (REMERON) 30 MG TAB 30 MILLIGRAM ORAL DAILY. METOPROLOL TARTRATE (LOPRESSOR) 100 MG TAB 200 MILLIGRAM ORAL TWICE DAILY. ASPIRIN (ASPIRIN) 81 MG TAB.CHEW 81 MILLIGRAM ORAL DAILY. Start taking the following new medications: CLOPIDOGREL (PLAVIX) 75 MG TAB 75 MILLIGRAM ORAL DAILY. Qty = 30 Refills = 1 Objective VS/I O Last Documented: Result Date Time Pulse Ox 100 11/05 1119 B/P 101/59 11/05 1119 B/P Mean 0.0 11/05 111 O2 Delivery Room air 11/05 1118 Temp 98.1 11/05 111 Pulse 82 11/05 111 Resp 18 11/05 111 24 hour I O ending at 0700: 11/05 0700 11/04 1900 Intake Total 100 500 Output Total Balance 100 500 Intake, Oral 100 500 Number Voids 0 Patient 147 kg Weight Weight Bed scale Measurement Method PATIENT WEIGHT: Weight (lb): 324 Weight (oz): 1.27 Weight (kg): 147.000 General appearance: obese, alert, awake Head/Eyes: atraumatic, clear cornea, normocephal ic ENT: normal dentition Neck: full range of motion, non-tender, no venessa s or swelling Cardiovascular: regular rate rhythm, normal hear t sounds Respiratory: clear to auscultation, no distress, aerating well GI: soft, non-tender, no mass/organomegaly Extremities: moves all, no edema-all extremities Musculoskeletal: full range of motion, normal in spection Neuro/SENIOR POWER PLANT OPERATOR: alert, oriented X 3, normal speech Results Findings/Data: Laboratory Tests: 11/05 11/05 11/05 11/05 11/04 1120 0726 0453 0452 1950 Chemistry Sodium (137 - 145 MMOL/L) 130 L Potassium (3.5 - 5.1 MMOL/L) 4.9 Chloride (98 - 107 MMOL/L) 96 L Carbon Dioxide (22 - 30 MMOL/L) 24 Anion Gap (14 - 24 MMOL/L) 15 BUN (9 - 20 MG/DL) 40 H Creatinine (0.66 - 1.25 MG/DL) 13.10 H Glomerular Filtr Rate 5 Glucose (74 - 106 MG/DL) 72 L POC Glucose (60 - 99 MG/DL) 62 70 118 H Calcium (8.4 - 10.2 MG/DL) 12.2 H TSH (0.465 - 4.68 MIU/L) 3.540 Coagulation INR (0.86 - 1.14) 1.2 H PT Patient/Control Mix (9.5 - 12.7 13.4 H SECONDS) Hematology WBC (3.8 - 9.8 K/MM3) 7.9 RBC (3.95 - 5.67 M/MM3) 4.76 Hgb (12.4 - 16.7 G/DL) 13.4 Hct (35.9 - 49.5 %) 45.2 MCV (81.7 - 96.1 fL) 95 MCH (27.6 - 33.2 pg) 28.2 MCHC (32.9 - 35.5 %) 29.6 L RDW (12.1 - 15.2 %) 17.7 H Plt Count (129 - 368 K/MM3) 180 MPV (7.4 - 10.4 fl) 10.2 Neut % (Auto) (43 - 75 %) 76.6 H Lymph % (Auto) (14 - 44 %) 14.5 Bonner % (Auto) (4 - 13 %) 6.8 Eos % (Auto) (0 - 6 %) 1.4 Baso % (Auto) (0 - 2 %) 0.3 Neut # (Auto) (2.0 - 7.6 K/mm3) 6.06 Lymph # (Auto) (1.0 - 3.8 K/mm3) 1.15 Bonner # (Auto) (0.1 - 0.8 K/mm3) 0.54 Eos # (Auto) (0.0 - 0.2 K/mm3) 0.11 Baso # (Auto) (0.0 - 0.2 K/mm3) 0.02 Immature Gran % (0.0 - 2.0 %) 0.4 Nucleated RBC % (0 - 1.0 %) 0.0 Nucleated RBCs # (Man) (0.0 - 0.1 K/mm3) 0.00 11/04 1607 Chemistry POC Glucose (60 - 99 MG/DL) 64 Discharge Instructions PCP )( Discharge to: Home/Self Care Discharge Instructions Additional Discharge Routines: PCP Follow-Up, Co nsultant Follow-Up )( Diet: Diabetic, Cardiac )( Activity: As Tolerated Follow-up Appointments PCP follow up: PCP: Edwin Mendez MD PCP follow up timeframe: In 1-2 weeks Consulting provider 1: Provider 1: Alexandra Grossman MD Specialty: Nephrology Consult follow up timeframe: In 1-2 weeks Special instructions: HD TOMORROW, THEN RESUME TTS Quality: Discharge Current Medications Current medication review: I attest that the foregoing medication list in t he medical record is true, accurate, and complete to the best of my knowled ge. at 1439 RPT #:[id number] END OF REPORT 2021-11-05 09:33:00-00:00 [facility] ([facility] Nephrology Progress Note REPORT#:[id number] REPORT STATUS: Signed DATE:11/05/21 TIME: 932 PATIENT: RODRIGUE STEPHENS UNIT #: [id number] ROOM/BED: [address] : 88 AGE: 31 SEX: M ATTEND: Alex Lucas MD ADM AUTHOR: Alexandra Grossman MD * ALL edits or amendments must be made on the Libox/computer document * Subjective Chief complaint: cardiac catherization Objective Physical Exam Head/eyes: atraumatic, normocephalic Neck: full range of motion, supple/no meningismu s Cardiovascular: murmur, normal heart sounds, reg ular rate and rhythm Respiratory: aerating well, no distress Abdomen: non-tender, soft Genitourinary: no bladder distention Extremities: no edema, no gangrene, no swelling Musculoskeletal: full range of motion Neuro/SENIOR POWER PLANT OPERATOR: alert, oriented X 3, normal speech Hemodialysis access: Type: permcath Location: left subclavian Skin: dry, normal temperature Diagnosis, Assessment Plan Free Text A P: Subjective Pt with HX of ESRD , presented for elective card iac catheterization, required PCI Today no overnight events stable VS can be discharged from nephrology point of view A/P ESRD on HD can resume HD tomorrow as an OP then TTsat renal diet Coronary Artery Disease S/P PCI Hypertension BP cpntrolled hypercalcemia cont dialysis need to adjust Hectrol and sensipar dose, discus sed with his Credit Card Clerk Dr Michelle Electronically Signed by Alexadnra Grossman MD on 0 11/05/21 at 0938 [facility] #:[phone] END OF REPORT 2021-11-05 08:13:00-00:00 [facility] ([facility]) Cardiology Progress Note REPORT#:[id number] REPORT STATUS: Signed DATE:11/05/21 TIME: 812 PATIENT: RODRIGUE STEPHENS UNIT #: [id number] ROOM/BED: [address] : 88 AGE: 31 SEX: M ATTEND: Alex Lucas MD ADM AUTHOR: Marv Huggins MD * ALL edits or amendments must be made on the Libox/computer document * Subjective Chief complaint: Renal failure Patient reports: No: chest pain, palpitations, shortness of breat h. Objective General VS/I O: 24 hour I O ending at 0700: 11/05 0700 11/04 1900 Intake Total 100 500 Output Total Balance 100 500 Intake, Oral 100 500 Number Voids 0 Patient 147 kg Weight Weight Bed scale Measurement Method Vital Signs: Date Time Temp Pulse Resp B/P B/P Pulse O2 O2 F low FiO2 Mean Ox Delivery Rate 11/05 0732 98.1 88 18 100/56 70.6 97 Room air 11/05 0354 98.4 88 17 124/81 95.1 95 11/04 2324 98.2 85 17 122/76 91.4 94 11/04 1949 98.2 101 15 148/84 105.3 98 11/04 1610 98.1 88 18 94/60 71.3 98 Room air 11/04 1252 97.5 88 18 121/89 99.9 100 Room air PATIENT WEIGHT: Weight (lb): 324 Weight (oz): 1.27 Weight (kg): 147.000 Medications: Active Meds + DC'd Last 24 Hrs Non-Formulary Medication (NON-FORMULARY) 1 EACH DAILY PO Aspirin (ASPIRIN EC) 81 MG DAILY PO Clopidogrel Bisulfate (PLAVIX) 75 MG DAILY PO Atorvastatin Calcium (LIPITOR) 40 MG BEDTIME PO Warfarin Sodium (COUMADIN) 10 MG QPM PO Insulin Human Lispro (HumaLOG) MEDIUM DOSE SLIDI NG SCALE AC HS SUBQ Non-Formulary Medication (NON-FORMULARY) 1 EACH Q8H PO (DC) Dextrose/Water (DEXTROSE 50% IN WATER) 12.5 GM A SDIR PRN IV Dextrose/Water (DEXTROSE 50% IN WATER) 25 GM ASD IR PRN IV Miscellaneous Information (PHARMACY TO DOSE/EVAL UATE) 1 EACH ASDIR MISC Metoprolol Tartrate (LOPRESSOR) 200 MG BID PO Mirtazapine (REMERON) 30 MG DAILY PO Acetaminophen (TYLENOL) 650 MG Q4H PRN PRN PO Hydrocodone Bitart/Acetaminophen (NORCO 5/325 TA BLET (C-II)) 1 TAB Q4H PRN PRN PO Ondansetron HCl (ZOFRAN) 4 MG Q8H PRN PRN IV Sodium Chloride (SODIUM CHLORIDE 0.9%) 1,000 ML Q10H IV (DC) Physical Exam General appearance: alert, awake, oriented Head/Eyes: atraumatic, normocephalic ENT: moist mucosal membranes Neck: no JVD Cardiovascular: CV assessment: regular rate and rhythm Respiratory: clear to auscultation, no distress Lower extremity: LE assessment: no edema Musculoskeletal: full range of motion Neuro/SENIOR POWER PLANT OPERATOR: alert, oriented X 3, CN II-XII intact Skin: dry, intact Psychiatry: normal affect, normal judgment/insig ht, normal mood Results Findings/Data: Laboratory Tests 11/05 11/05 11/05 11/04 11/04 0726 0453 0453 1950 1607 Chemistry Sodium (137 - 145 MMOL/L) 130 L Potassium (3.5 - 5.1 MMOL/L) 4.9 Chloride (98 - 107 MMOL/L) 96 L Carbon Dioxide (22 - 30 MMOL/L) 24 Anion Gap (14 - 24 MMOL/L) 15 BUN (9 - 20 MG/DL) 40 H Creatinine (0.66 - 1.25 MG/DL) 13.10 H Glomerular Filtr Rate 5 Glucose (74 - 106 MG/DL) 72 L POC Glucose (60 - 99 MG/DL) 70 118 H 64 Calcium (8.4 - 10.2 MG/DL) 12.2 H TSH (0.465 - 4.68 MIU/L) 3.540 Laboratory Tests 11/05 0453 Coagulation INR (0.86 - 1.14) 1.2 H PT Patient/Control Mix (9.5 - 12.7 SECONDS) 13. 4 H Laboratory Tests 11/05 0453 Hematology WBC (3.8 - 9.8 K/MM3) 7.9 RBC (3.95 - 5.67 M/MM3) 4.76 Hgb (12.4 - 16.7 G/DL) 13.4 Hct (35.9 - 49.5 %) 45.2 MCV (81.7 - 96.1 fL) 95 MCH (27.6 - 33.2 pg) 28.2 MCHC (32.9 - 35.5 %) 29.6 L RDW (12.1 - 15.2 %) 17.7 H Plt Count (129 - 368 K/MM3) 180 MPV (7.4 - 10.4 fl) 10.2 Neut % (Auto) (43 - 75 %) 76.6 H Lymph % (Auto) (14 - 44 %) 14.5 Bonner % (Auto) (4 - 13 %) 6.8 Eos % (Auto) (0 - 6 %) 1.4 Baso % (Auto) (0 - 2 %) 0.3 Neut # (Auto) (2.0 - 7.6 K/mm3) 6.06 Lymph # (Auto) (1.0 - 3.8 K/mm3) 1.15 Bonner # (Auto) (0.1 - 0.8 K/mm3) 0.54 Eos # (Auto) (0.0 - 0.2 K/mm3) 0.11 Baso # (Auto) (0.0 - 0.2 K/mm3) 0.02 Immature Gran % (0.0 - 2.0 %) 0.4 Nucleated RBC % (0 - 1.0 %) 0.0 Nucleated RBCs # (Man) (0.0 - 0.1 K/mm3) 0.00 Diagnosis, Assessment Plan Free Text DxA P Notes Free Text DxA P Notes: IMP: ESRD CAD s/p PTCA / stent RCA 11/04/2021 PLAN: d/c planning Continue medical rx. at 1339 RPT #:[id number] END OF REPORT 2021-11-05 07:18:00-00:00 [phone] [id number] [place] [address] PATIENT NAME: RODRIGUE STEPHENS ADMIT DATE: ACCOUNT NO: [id number] ROOM NO: Z.364 AGE: 31 REPORT TYPE: ELECTROCARDIOGRAM SEX: M ADMITTING PHYSICIAN:Alex Lucas MD ATTENDING PHYSICIAN:Alex Lucas MD Order: [id number] Test Reason : CAD/PCI Test Date/Time Stamp: SatNov 05 2021 07:18:19 Blood Pressure : / mmHG Vent. Rate : 090 BPM Atrial Rate : 090 BPM P-R Int : 210 ms QRS Dur : 082 ms QT Int : 362 ms P-R-T Axes : 067 078 065 degree s QTc Int : 442 ms Sinus rhythm with 1st degree AV block Possible Left atrial enlargement Cannot rule out Anterior infarct , age undetermi víctor Abnormal ECG No significant change was found Confirmed by EDWIN MENDEZ ([id number]) on 11/05/2021 2:32:26 PM Referred By: Self Referred Confirmed by:EDWIN MORRELL at 1432 PATIENT NAME: RODRIGUE STEPHENS 4550 2021-11-05 07:18:00-00:00 [phone] [id number] [place] [address] PATIENT NAME: RODRIGUE STEPHENS ADMIT DATE: 2 ACCOUNT NO: [id number] ROOM NO: Z.364 AGE: 31 REPORT TYPE: ELECTROCARDIOGRAM SEX: M ADMITTING PHYSICIAN:Alex Lucas MD ATTENDING PHYSICIAN:Alex Lucas MD Order: [id number] Test Reason : CAD/PCI Test Date/Time Stamp: SatNov 05 2021 07:18:45 Blood Pressure : / mmHG Vent. Rate : 088 BPM Atrial Rate : 088 BPM P-R Int : 208 ms QRS Dur : 092 ms QT Int : 370 ms P-R-T Axes : 067 080 068 degree s QTc Int : 447 ms Normal sinus rhythm Possible Left atrial enlargement Cannot rule out Anterior infarct (cited on or be fore 05-NOV-2021) Abnormal ECG When compared with ECG of 05-NOV-2021 07:18, No significant change was found Confirmed by EDWIN MENDEZ ([id number]) on 11/05/2021 2:33:02 PM Referred By: Self Referred Confirmed by:EDWIN MORRELL at 1433 PATIENT NAME: RODRIGUE STEPHENS [id number] 2021-11-05 07:18:00-00:00 [id number] [id number] PATIENT NAME: RODRIGUE STEPHENS ADMIT DATE: 2 ACCOUNT NO: [id number] ROOM NO: Z.364 AGE: 31 REPORT TYPE: ELECTROCARDIOGRAM SEX: M ADMITTING PHYSICIAN:Alex Lucas MD ATTENDING PHYSICIAN:Alex Lucas MD Order: [id number] Test Reason : CAD/PCI Test Date/Time Stamp: SatNov 05 2021 07:18:45 Blood Pressure : / mmHG Vent. Rate : 088 BPM Atrial Rate : 088 BPM P-R Int : 208 ms QRS Dur : 092 ms QT Int : 370 ms P-R-T Axes : 067 080 068 degre es QTc Int : 447 ms Normal sinus rhythm Possible Left atrial enlargement Cannot rule out Anterior infarct (cited on or be fore 05-NOV-2021) Abnormal ECG When compared with ECG of 05-NOV-2021 07:18, No significant change was found Confirmed by EDWIN MENDEZ ([id number]) on 11/07/2021 4:48:32 PM Referred By: Self Referred Confirmed by:EDWIN MORRELL at 1648 PATIENT NAME: RODRIGUE STEPHENS 4550 2021-11-05 07:18:00-00:00 [id number] [id number] PATIENT NAME: RODRIGUE STEPHENS ADMIT DATE: 2 ACCOUNT NO: [id number] ROOM NO: [facility] AGE: 31 REPORT TYPE: ELECTROCARDIOGRAM SEX: M ADMITTING PHYSICIAN:Alex Lucas MD ATTENDING PHYSICIAN:Alex Lucas MD Order: [id number] Test Reason : CAD/PCI Test Date/Time Stamp: [place] Nov 05 2021 07:18:19 Blood Pressure : / mmHG Vent. Rate : 090 BPM Atrial Rate : 090 BPM P-R Int : 210 ms QRS Dur : 082 ms QT Int : 362 ms P-R-T Axes : 067 078 065 degree s QTc Int : 442 ms Sinus rhythm with 1st degree AV block Possible Left atrial enlargement Cannot rule out Anterior infarct , age undetermi víctor Abnormal ECG No significant change was found Confirmed by EDIWN MENDEZ ([id number]) on 11/07/2021 4:48:36 PM Referred By: Self Referred Confirmed by:EDWIN MORRELL at 1648 PATIENT NAME: RODRIGUE STEPHENS 4550 2021-11-04 14:55:00-00:00 [facility] ([facility]) Hospitalist History Physical REPORT#:[id number] REPORT STATUS: Signed DATE:11/04/21 TIME: 1455 PATIENT: RODRIGUE STEPHENS UNIT #: [id number] [facility] AGE: 31 SEX: M ATTEND: Alex Lucas MD ADM AUTHOR: William Dinero MD * ALL edits or amendments must be made on the Libox/computer document * History of Present Illness HPI Chief complaint: DYSPNEA ON EXERTION PCP: PCP: Edwin Mendez MD HPI: 31 yoM obese with ESRD (TTS), HTN, and DM2 who's being evaluated for renal transplant at [facility], presents elective cardiac an giogram as part of his pre-op workup. Pt has been c/o dyspnea on exertion for past few weeks but denies cp. His LHC today showed RCA les ion which was successfully revascularized with PTCI by Dr Mendez. Pt will be observed o/n for any a rhythmia post-procedure. Currently pt is in NSR, rate in 70s Pt related he has h/o hyperkalermia when he miss ed his HD. He had HD last two days ( and Saturday) a nd his next schedueld HD is Saturday in [place]. His lab today show K 4.9 and creatinine 11.4. Pt denies cp/sob, legs edema or orthopnea. He was taking warfarin 10 mg for h/o AV graft thrombosis, but has held it for last 5 days. Pmhx: HTN, DM2, ESRD on TTS HD, HLD, AV graft th rombosis pshx: Lap cholecystectomy, Multiple AV graft and fistula formation surgeries Social hx: Single, nonsmoker and no etoh family hx: Positive for HTN and CKD History Family History Family history: Reports: Heart disease. Social History Alcohol use: Denies EtOH use Drug use: Denies recreational drugs Smoking status: Smoking status for patients 13 years old or old er: Former Smoker Date last smoked: 09/23/07 Medication/Allergy-Vaccine Hx Allergies: Coded Allergies: No Known Allergies (11/03/21) Review of Systems Constitutional: Denies: fatigue, fever, generalized weakness. Skin: Denies: contusion. Respiratory: Reports: SZYMANSKI (dyspnea on exertion). Denies: prod uctive cough (sputum), SOB. Cardiovascular: Reports: SZYMANSKI (dyspnea on exertion). Denies: ches t pain, orthopnea, palpitations. GI: Denies: abdominal pain, anorexia, dysphagia. : Reports: other (still make small amount urine ). All systems rev neg: except as noted Physical Exam VS/I O: Vital Signs Date Temp Pulse Resp B/P B/P Mean Pulse Ox FiO2 11/04 97.5 88 18 121/89 99.9 100 Last Documented: Result Date Time Pulse Ox 100 11/04 1252 B/P 121/89 11/04 1252 B/P Mean 99.9 11/04 1252 O2 Delivery Room air 11/04 1252 Temp 97.5 11/04 1252 Pulse 88 11/04 1252 Resp 18 11/04 1252 Patient Weight and BMI Weight (kg): 147.000 BMI: 39.4 General appearance: obese, alert, awake Head/Eyes: atraumatic, normal conjunctiva/sclera ENT: moist mucosal membranes, normal dentition Neck: full range of motion, non-tender, no venessa s or swelling Cardiovascular: normal heart sounds, regular rat e rhythm Respiratory: aerating well, clear to auscultatio n Abdomen: obese, non-tender, normal bowel sounds, soft Extremities: moves all, no edema Musculoskeletal: normal inspection, no muscle sp asm Neuro/SENIOR POWER PLANT OPERATOR: alert, oriented X 3, normal speech, n o motor deficits Results Findings/Data: Laboratory Tests: 11/04 11/04 11/04 0649 0500 0450 Chemistry Sodium (137 - 145 MMOL/L) 136 L Potassium (3.5 - 5.1 MMOL/L) 4.9 Chloride (98 - 107 MMOL/L) 95 L Carbon Dioxide (22 - 30 MMOL/L) 28 Anion Gap (14 - 24 MMOL/L) 18 BUN (9 - 20 MG/DL) 33 H Creatinine (0.66 - 1.25 MG/DL) 11.40 H Glomerular Filtr Rate 6 Glucose (74 - 106 MG/DL) 100 Calcium (8.4 - 10.2 MG/DL) 12.7 H Magnesium (1.6 - 2.3 MG/DL) 2.8 H Triglycerides (150 - 199 MG/DL) 179 Cholesterol (<200 MG/DL) 83 LDL Cholesterol Measurd (0 - 99 MG/DL) < 30 HDL Cholesterol (40 - 59 MG/DL) 28 L Coagulation INR (0.86 - 1.14) 1.2 H APTT (25.1 - 36.5 SECONDS) 38.9 H PT Patient/Control Mix (9.5 - 12.7 SECONDS) 13. 3 H Activated Coag Time (74 - 137 SEC) 279 H Hematology WBC (3.8 - 9.8 K/MM3) 7.5 RBC (3.95 - 5.67 M/MM3) 5.17 Hgb (12.4 - 16.7 G/DL) 14.7 Hct (35.9 - 49.5 %) 50.1 H MCV (81.7 - 96.1 fL) 97 H MCH (27.6 - 33.2 pg) 28.4 MCHC (32.9 - 35.5 %) 29.3 L RDW (12.1 - 15.2 %) 18.0 H Plt Count (129 - 368 K/MM3) 200 MPV (7.4 - 10.4 fl) 11.0 H Neut % (Auto) (43 - 75 %) 71.1 Lymph % (Auto) (14 - 44 %) 18.5 Bonner % (Auto) (4 - 13 %) 9.1 Eos % (Auto) (0 - 6 %) 0.9 Baso % (Auto) (0 - 2 %) 0.3 Neut # (Auto) (2.0 - 7.6 K/mm3) 5.31 Lymph # (Auto) (1.0 - 3.8 K/mm3) 1.38 Bonner # (Auto) (0.1 - 0.8 K/mm3) 0.68 Eos # (Auto) (0.0 - 0.2 K/mm3) 0.07 Baso # (Auto) (0.0 - 0.2 K/mm3) 0.02 Immature Gran % (0.0 - 2.0 %) 0.1 Nucleated RBC % (0 - 1.0 %) 0.0 Nucleated RBCs # (Man) (0.0 - 0.1 K/mm3) 0.00 Serology SARS-CoV-2 Ag (Rapid) (Negative) NEGATIVE Laboratory Tests 11/04/21 0500: [Embedded Image Not Available] Diagnosis, Assessment Plan Problem List/A P: 1. CAD S/P percutaneous coronary angioplasty 2. ESRD (end stage renal disease) on dialysis 3. HTN, goal below 140/80 4. DM2 (diabetes mellitus, type 2) 5. Hypercalcemia 6. Exertional dyspnea Free Text A P: 1. CAD s/p PTCI RCA 2. Exertional dyspnea likely due to unstable ang joseph 3. ESRD on TTS, now borderline hyperkalemic 4. HTN, controlled 5. Hypercalcemia, due to ESRD 6. 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 Our hospital cannot accomodate pt's dialysis today or tomorrow. Clinically now, pt does not appear fluid overloaded and his electrolytes are sti ll within reasonable range, but I'm informed by his signaling project engineer that pt tend to become severely hyperkalemic whenever he missed his scheduled HD at 1520 RPT #:[id number] END OF REPORT 2021-11-04 10:31:00-00:00 [facility] ([facility]) Nephrology Consultation Note REPORT#:[id number] REPORT STATUS: Signed DATE:11/04/21 TIME: 1031 PATIENT: RODRIGUE STEPHENS UNIT #: [id number] [facility] AGE: 31 SEX: M ATTEND: Alex Lucas MD ADM AUTHOR: Morenita Orellana MD R3 * ALL edits or amendments must be made on the Libox/computer document * See Addendum Morenita Orellana 11/04/21 1031: History of Present Illness Requesting clinician: Dr. Mendez Reason for consult: ESRD on HD Chief complaint: cardiac catherization PCP: PCP: Edwin Mendez MD HPI: 31 y/o M with hx of ESRD on HD ,, Sat, HTN, HLD, Mitral regurgiation here for cardiac catherization for renal transpl ant pre-operative evaluation. Nephrology is consulted for hemodialysis while patient is here. Last dialysis is and Saturday. He has outpatient dialysis on Saturday with his signaling project engineer in [place]. History - Adult longitudinal Past medical history: Reports: Coronary artery disease, Hypertension, Kidney disease/stones, Dyslipidemia. Past surgical history: Reports: Cholecystectomy. Family history: Reports: Heart disease. Alcohol use: Denies EtOH use Drug use: Denies recreational drugs Smoking status: Smoking status for patients 13 years old or old er: Never Smoker Medications: Home Medications: Medication Dose/Rte/Freq Days Qty Entered Last Max Daily Dose Reviewed WARFARIN (COUMADIN) 10 MG PO DAILY 11/03/21 Strength: 10 MG TAB 1438 ATORVASTATIN (LIPITOR) 40 MG PO DAILY 11/03/21 Strength: 40 MG TAB 1438 SEVELAMER CARBONATE 800 MG PO TID MEALS 2 (RENVELA) 1438 Strength: 800 MG TAB INSULIN ASPART (NovoLOG) 1 UNITS SUBQ ASDIR 08/14 Strength: 100 UNIT/ML VIAL 1439 MIRTAZAPINE (REMERON) 30 MG PO DAILY 11/03/21 Strength: 30 MG TAB 1439 METOPROLOL TARTRATE 200 MG PO BID 11/03/21 (LOPRESSOR) 1440 Strength: 100 MG TAB ASPIRIN 81 MG PO DAILY 11/03/21 Strength: 81 MG TAB.CHEW 1440 Current Hospital Medications: Antihistamine Drugs Sig/Jerome Start time Last Medication Dose Route Stop Time Status Admin Diphenhydramine HCl 0 .STK-MED ONE 11/04 0602 D C (BENADRYL) .ROUTE Diphenhydramine HCl 25 MG ONCE ONE 11/04 0530 D C 11/04 (BENADRYL) PO 11/04 0531 0606 Blood Formation,Coagulation Sig/Jerome Start time Last Medication Dose Route Stop Time Status Admin Clopidogrel Bisulfate 75 MG DAILY 11/05 0900 AC (PLAVIX) PO 12/05 09 Clopidogrel Bisulfate 0 .STK-MED ONE 11/04 0642 DC (PLAVIX) .ROUTE Heparin Sodium/ 1,000 ML .STK-MED ONE 11/04 051 7 DC Sodium Chloride IV (HEPARIN 1000 UNITS/ NS 500ML) Heparin Sodium 0 .STK-MED ONE 11/04 0516 DC (HEPARIN SODIUM) .ROUTE Cardiovascular Drugs Sig/Jerome Start time Last Medication Dose Route Stop Time Status Admin Atorvastatin Calcium 40 MG BEDTIME 11/04 2100 AC (LIPITOR) PO 12/04 2101 Metoprolol Tartrate 200 MG BID 11/04 0900 AC (LOPRESSOR) PO 12/04 0901 Central Nervous System Agents Sig/Jerome Start time Last Medication Dose Route Stop Time Status Admin Aspirin 81 MG DAILY 11/05 0900 AC (ASPIRIN EC) PO 12/05 0901 Mirtazapine 30 MG DAILY 11/04 0900 AC (REMERON) PO 12/04 0901 Acetaminophen 650 MG Q4H PRN PRN 11/04 0715 AC (TYLENOL) PO 11/06 0716 Hydrocodone Bitart/ 1 TAB Q4H PRN PRN 11/04 071 5 AC Acetaminophen PO 11/06 0716 (NORCO 5/325 TABLET (C-II)) Aspirin 0 .STK-MED ONE 11/04 0642 DC (ECOTRIN) .ROUTE Diazepam 0 .STK-MED ONE 11/04 602 DC (VALIUM (C-IV)) .ROUTE Diazepam 5 MG ONCE ONE 11/04 529 DC 11/04 (VALIUM (C-IV)) PO 11/04 0531 0606 Fentanyl Citrate 0 .STK-MED ONE 11/04 515 DC (SUBLIMAZE (C-II)) .ROUTE Lidocaine 0 .STK-MED ONE 11/04 515 DC (XYLOCAINE 1%) .ROUTE Midazolam HCl 0 .STK-MED ONE 11/04 515 DC (VERSED (C-IV)) .ROUTE Diagnostic Agents Sig/Jerome Start time Last Medication Dose Route Stop Time Status Admin Iopamidol 0 .STK-MED ONE 11/04 516 DC (ISOVUE-370) .ROUTE Iopamidol 0 .STK-MED ONE 11/04 515 DC (ISOVUE-300) .ROUTE Electrolytic, Caloric, And Kraig Sig/Jerome Start time Last Medication Dose Route Stop Time Status Admin Sodium Chloride 1,000 ML Q10H 11/04 529 AC (SODIUM CHLORIDE IV 12/03 1436 0.9%) Gastrointestinal Drugs Sig/Jerome Start time Last Medication Dose Route Stop Time Status Admin Ondansetron HCl 4 MG Q8H PRN PRN 11/04 0615 AC (ZOFRAN) IV 12/04 0716 Allergies: Coded Allergies: No Known Allergies (11/03/21) Review of Systems All systems rev neg: except as marked Objective General VS/I O: PATIENT WEIGHT: Weight (lb): Weight (oz): Weight (kg): Medications: Active Meds + DC'd Last 24 Hrs Aspirin (ASPIRIN EC) 81 MG DAILY PO Clopidogrel Bisulfate (PLAVIX) 75 MG DAILY PO Atorvastatin Calcium (LIPITOR) 40 MG BEDTIME PO Metoprolol Tartrate (LOPRESSOR) 200 MG BID PO Mirtazapine (REMERON) 30 MG DAILY PO Acetaminophen (TYLENOL) 650 MG Q4H PRN PRN PO Hydrocodone Bitart/Acetaminophen (NORCO 5/325 TA BLET (C-II)) 1 TAB Q4H PRN PRN PO Ondansetron HCl (ZOFRAN) 4 MG Q8H PRN PRN IV Aspirin (ECOTRIN) 0 .STK-MED ONE .ROUTE (DC) Clopidogrel Bisulfate (PLAVIX) 0 .STK-MED ONE . ROUTE (DC) Diazepam (VALIUM (C-IV)) 0 .STK-MED ONE .ROUTE ( DC) Diphenhydramine HCl (BENADRYL) 0 .STK-MED ONE .R OUTE (DC) Diazepam (VALIUM (C-IV)) 5 MG ONCE ONE PO (DC) Diphenhydramine HCl (BENADRYL) 25 MG ONCE ONE PO (DC) Sodium Chloride (SODIUM CHLORIDE 0.9%) 1,000 ML Q10H IV Heparin Sodium/Sodium Chloride (HEPARIN 1000 UNI TS/NS 500ML) 1,000 ML .STK- MED ONE IV (DC) Iopamidol (ISOVUE-370) 0 .STK-MED ONE .ROUTE (DC ) Fentanyl Citrate (SUBLIMAZE (C-II)) 0 .STK-MED O NE .ROUTE (DC) Heparin Sodium (HEPARIN SODIUM) 0 .STK-MED ONE . ROUTE (DC) Iopamidol (ISOVUE-300) 0 .STK-MED ONE .ROUTE (DC ) Lidocaine (XYLOCAINE 1%) 0 .STK-MED ONE .ROUTE ( DC) Midazolam HCl (VERSED (C-IV)) 0 .STK-MED ONE .RO TUOLUMNE (DC) Physical Exam General appearance: alert, awake, oriented, no a cute distress, pleasant Head/eyes: atraumatic, normocephalic Neck: full range of motion, supple/no meningismu s Cardiovascular: murmur, normal heart sounds, reg ular rate and rhythm Respiratory: aerating well, no distress Abdomen: non-tender, soft Genitourinary: no bladder distention Extremities: no edema, no gangrene, no swelling Musculoskeletal: full range of motion Neuro/SENIOR POWER PLANT OPERATOR: alert, oriented X 3, normal speech Hemodialysis access: Type: permcath Location: left subclavian Skin: dry, normal temperature Results Findings/Data: Laboratory Tests 11/04 0500 Chemistry Sodium (137 - 145 MMOL/L) 136 L Potassium (3.5 - 5.1 MMOL/L) 4.9 Chloride (98 - 107 MMOL/L) 95 L Carbon Dioxide (22 - 30 MMOL/L) 28 Anion Gap (14 - 24 MMOL/L) 18 BUN (9 - 20 MG/DL) 33 H Creatinine (0.66 - 1.25 MG/DL) 11.40 H Glomerular Filtr Rate 6 Glucose (74 - 106 MG/DL) 100 Calcium (8.4 - 10.2 MG/DL) 12.7 H Magnesium (1.6 - 2.3 MG/DL) 2.8 H Triglycerides (150 - 199 MG/DL) 179 Cholesterol (<200 MG/DL) 83 LDL Cholesterol Measurd (0 - 99 MG/DL) < 30 HDL Cholesterol (40 - 59 MG/DL) 28 L Laboratory Tests 11/04 11/04 0649 0500 Coagulation INR (0.86 - 1.14) 1.2 H APTT (25.1 - 36.5 SECONDS) 38.9 H PT Patient/Control Mix (9.5 - 12.7 SECONDS) 13. 3 H Activated Coag Time (74 - 137 SEC) 279 H Laboratory Tests 11/04 0500 Hematology WBC (3.8 - 9.8 K/MM3) 7.5 RBC (3.95 - 5.67 M/MM3) 5.17 Hgb (12.4 - 16.7 G/DL) 14.7 Hct (35.9 - 49.5 %) 50.1 H MCV (81.7 - 96.1 fL) 97 H MCH (27.6 - 33.2 pg) 28.4 MCHC (32.9 - 35.5 %) 29.3 L RDW (12.1 - 15.2 %) 18.0 H Plt Count (129 - 368 K/MM3) 200 MPV (7.4 - 10.4 fl) 11.0 H Neut % (Auto) (43 - 75 %) 71.1 Lymph % (Auto) (14 - 44 %) 18.5 Bonner % (Auto) (4 - 13 %) 9.1 Eos % (Auto) (0 - 6 %) 0.9 Baso % (Auto) (0 - 2 %) 0.3 Neut # (Auto) (2.0 - 7.6 K/mm3) 5.31 Lymph # (Auto) (1.0 - 3.8 K/mm3) 1.38 Bonner # (Auto) (0.1 - 0.8 K/mm3) 0.68 Eos # (Auto) (0.0 - 0.2 K/mm3) 0.07 Baso # (Auto) (0.0 - 0.2 K/mm3) 0.02 Immature Gran % (0.0 - 2.0 %) 0.1 Nucleated RBC % (0 - 1.0 %) 0.0 Nucleated RBCs # (Man) (0.0 - 0.1 K/mm3) 0.00 Laboratory Tests 11/04 0450 Serology SARS-CoV-2 Ag (Rapid) (Negative) NEGATIVE Diagnosis, Assessment Plan Free Text DxA P Notes Free text DxA P notes: Impressions: ESRD on HD; pending renal transplant Coronary Artery Disease Hypertension Hyperlipidemia Plan: S/p Left Heart Catherization Spoke with patient advising dialysis; however sharath reynolds refused stating that he received back to back dialysis on and in anticipation of this procedure. He states that he is due for dialysis on Saturday and he doesn't need it today. Will continue to closely monitor his BMP Continue management per primary team Sophie Tariq 11/18/21 1627: Attestations Attestation needed: teaching physician Physician Attestation Agree w/findings plan: Agree with the findings and plan as documented Lakia Orellana M.D. Electronically Signed by Morenita Orellana MD R3 on at 1726 Electronically Signed by Sophie Tariq MD on at 1627 Addendum 1: 11/18/211626 by Sophie Tariq MD I have seen and examined the patient with Dr. Shanw Orellana and I agree with the history/exam/diagnosis/plan as documented with t he following additions: Electronically Signed by Sophie Tariq MD on at 1621 RPT #:[id number] END OF REPORT 2021-11-04 08:39:00-00:00 [id number] [address] PATIENT NAME: RODRIGUE STEPHENS ADMIT DATE: 2 ACCOUNT NO: [id number] ROOM NO: Z.DC4T AGE: 31 REPORT TYPE: ELECTROCARDIOGRAM SEX: M ADMITTING PHYSICIAN:Alex Lucas MD ATTENDING PHYSICIAN:Alex Lucas MD Order: [id number] Test Reason : CAD/PCI Test Date/Time Stamp: Sat Nov 04 2021 08:39:53 Blood Pressure : / mmHG Vent. Rate : 092 BPM Atrial Rate : 092 BPM P-R Int : 212 ms QRS Dur : 088 ms QT Int : 364 ms P-R-T Axes : 061 203 059 degree s QTc Int : 450 ms Sinus rhythm with 1st degree AV block Right superior axis deviation Low voltage QRS Abnormal ECG When compared with ECG of 04-NOV-2021 08:39, No significant change was found Confirmed by EDWIN MENDEZ ([id number]) on 11/04/2021 11:24:44 AM Referred By: Self Referred Confirmed by:EDWIN MORRELL at 1124 PATIENT NAME: RODRIGUE STEPHENS 4550 2021-11-04 08:39:00-00:00 [id number] [place] [address] PATIENT NAME: RODRIGUE STEPHENS ADMIT DATE: 2 ACCOUNT NO: [id number] ROOM NO: Z.364 AGE: 31 REPORT TYPE: ELECTROCARDIOGRAM SEX: M ADMITTING PHYSICIAN:Alex Lucas MD ATTENDING PHYSICIAN:Alex Lucas MD Order: [id number] Test Reason : CAD/PCI Test Date/Time Stamp: [facility] Nov 04 2021 08:39:53 Blood Pressure : / mmHG Vent. Rate : 092 BPM Atrial Rate : 092 BPM P-R Int : 212 ms QRS Dur : 088 ms QT Int : 364 ms P-R-T Axes : 061 203 059 degree s QTc Int : 450 ms Sinus rhythm with 1st degree AV block Right superior axis deviation Low voltage QRS Abnormal ECG When compared with ECG of 04-NOV-2021 08:39, No significant change was found Confirmed by EDWIN MENDEZ ([id number]) on 11/07/2021 4:48:49 PM Referred By: Self Referred Confirmed by:EDWIN MORRELL at 1648 PATIENT NAME: RODRIGUE STEPHENS 4550 2021-11-04 07:14:00-00:00 [id number] [place] [address] PATIENT NAME: RODRIGUE STEPHENS ADMIT DATE: 2 ACCOUNT NO: [id number] ROOM NO: Z.DC4T AGE: 31 REPORT TYPE: CARDIAC CATHETERIZATION REPORT SEX: M ADMITTING PHYSICIAN:Edwin Mendez MD ATTENDING PHYSICIAN:Edwin Mendez MD PROCEDURE DATE: 11/04/2021 MECHANICAL DEVELOPMENT ENGINEER: Edwin Mendez MD TITLE OF THE PROCEDURE: 1. Left heart catheterization. 2. Drug-eluting stent of the right coronary liana ry. 3. Sealing device. INDICATION FOR THE PROCEDURE : Dyspnea, multiple cardiovascular risk factors and preoperative clearance. ESTIMATED BLOOD LOSS: Minimal. COMPLICATIONS: None. CONTRAST: 75 mL. ANESTHESIA: Conscious sedation with Versed and f entanyl and 1% lidocaine for local anesthesia. FINAL DIAGNOSES: Single-vessel coronary artery d isease, calcified arteries, status post drug-eluting stent of the right marita nary artery. PROCEDURE IN DETAIL: After informed consent, the patient was brought to the cardiac catheterization lab in a stable fasting nonsedated state. He was prepped and draped in the usual sterile fashion. After conscious sedation, 1% lidocaine was administered to the right common f emoral artery area for local anesthesia. A 6-Pakistani sheath was placed in the right common femoral artery using standard techniques and fluoroscop y. After heparinization, left coronary angiogram showed heavily negrita cified arteries, 30% plaques in the proximal LAD and the mid LAD and then an obtuse marginal. The LAD is a large vessel that wraps around the apex. Right coronary angiogram showed a focal lesion 85% distal. Left ventricular angiogram showed ejection fract ion of 75%, left ventricular end-diastolic pressure of 19 and no aortic valve gradient or wall motion abnormalities. At this time, decided to intervene on the right coronary artery lesion. The guide used was a FR4. The wire was a Luge 0.014. The lesion was ____ with an Xience 3.5 x 12, one inflat ion at 18 atmospheres that resulted in 0% residual, good distal flow. One small area of spasm. The groin was sealed using Angio-Seal. There were no complications. T he patient tolerated the procedure well. The patient will be transferred back to the holding area for observation. He may need to be dialyzed. He will be placed in observation PATIENT NAME: RODRIGUE STEPHENS 4550 overnight and he will be discharged tomorrow on aggressive risk factor modification. Dictated By: Edwin Mendez MD WT: CATH:VANESSA/GENI/MARCOS Conf#: [id number]/DID#: [id number] Authenticated by Edwin Mendez MD On 10/24 09:26:05 AM at 0926 PATIENT NAME: RODRIGUE STEPHENS 4550 2021-11-04 05:59:00-00:00 [id number] [place] [address] PATIENT NAME: RODRIGUE STEPHENS ADMIT DATE: 2 ACCOUNT NO: [id number] ROOM NO: AGE: 31 REPORT TYPE: ELECTROCARDIOGRAM SEX: M ADMITTING PHYSICIAN: ATTENDING PHYSICIAN:Edwin Mendez MD Order: [id number] Test Reason : CAD Test Date/Time Stamp: Sat Nov 04 2021 05:59:36 Blood Pressure : / mmHG Vent. Rate : 090 BPM Atrial Rate : 090 BPM P-R Int : 216 ms QRS Dur : 090 ms QT Int : 368 ms P-R-T Axes : 054 168 059 degree s QTc Int : 450 ms Sinus rhythm with 1st degree AV block Right axis deviation Anterior infarct , age undetermined Abnormal ECG No previous ECGs available Confirmed by EDWIN MENDEZ ([id number]) on 11/04/2021 6:23:32 AM Referred By: Self Referred Confirmed by:EDWIN MORRELL at 0623 PATIENT NAME: RODRIGUE STEPHENS 4550 2021-11-04 05:59:00-00:00 [id number] [address] PATIENT NAME: RODRIGUE STEPHENS ADMIT DATE: 2 ACCOUNT NO: [id number] ROOM NO: Z.364 AGE: 31 REPORT TYPE: ELECTROCARDIOGRAM SEX: M ADMITTING PHYSICIAN:Alex Lucas MD ATTENDING PHYSICIAN:Alex Lucas MD Order: [id number] Test Reason : CAD Test Date/Time Stamp: Sat Nov 04 2021 05:59:36 Blood Pressure : / mmHG Vent. Rate : 090 BPM Atrial Rate : 090 BPM P-R Int : 216 ms QRS Dur : 090 ms QT Int : 368 ms P-R-T Axes : 054 168 059 degree s QTc Int : 450 ms Sinus rhythm with 1st degree AV block Right axis deviation Anterior infarct , age undetermined Abnormal ECG No previous ECGs available Confirmed by EDWIN MENDEZ ([id number]) on 11/07/2021 4:49:00 PM Referred By: Self Referred Confirmed by:EDWIN MORRELL at 1649 PATIENT NAME: RODRIGUE STEPHENS 4550 2021-11-03 07:16:00-00:00 [id number] PATIENT NAME: RODRIGUE STEPHENS ADMIT DATE: ACCOUNT NO: [id number] ROOM NO: AGE: 31 REPORT TYPE: HISTORY AND PHYSICAL SEX: M ADMITTING PHYSICIAN: ATTENDING PHYSICIAN:Edwin Mendez MD PATIENT NAME: RODRIGUE STEPHENS ADMIT DATE:11/04/19 ADMISSION DATE: 11/04/2021 MECHANICAL DEVELOPMENT ENGINEER: Edwin Mendez M.D. REASON FOR ADMISSION: Cardiac catheterization fo r preoperative transplant evaluation. HISTORY OF PRESENT ILLNESS: Rodrigue is a 31-year- old patient who is getting evaluation for kidney transplant at [facility]. He was evaluated by [facility] Cardiology and [facility] Transplant Team and a cardiac catheterization was requested given that the patient has been established with me since 2016. He is getting the cardiac catheterization with me here today and then the results will be forwarded to the [facility] Transplant Team. The patient has hyper tensive heart disease, has hyperlipidemia, has mitral regurgitation, has dy spnea on mild exertion, has chronically abnormal EKG with first-degree AV bl ock, history of tachycardia. His last carotid Doppler done at [facility] on showed less than 50% plaquing and normal velocities. Echocardiogram i n April 2021 showed mild mitral regurgitation, mild tricuspid insufficien cy, 4-chamber enlargement, severe concentric left ventricular hyper trophy, normal ejection fraction, mild pulmonary hypertension. A 24 -hour Holter monitor did not reveal any significant arrhythmias. The patient has history of edema th at resolved on hemodialysis. He denies any chest pains. He has dyspnea on mil d exertion. PAST MEDICAL HISTORY: Remarkable for the above. Hypertension, hyperlipidemia, end-stage renal disease, mor bid obesity, hypothyroidism, diabetes, acid reflux. PAST SURGICAL HISTORY: He has mass removed on th e left hand, cholecystectomy, dialysis catheter, and also leg procedure in . ALLERGIES: NO KNOWN DRUG ALLERGIES. MEDICATIONS: He is on warfarin for vascular acce ss grafts, atorvastatin 40 mg daily, Renvela, insulin, conor denafil 100 mg as needed, metoprolol 100 mg b.i.d., aspirin 325 mg once a day. He was on it before t he warfarin. SOCIAL HISTORY: There is no history of smoking, alcohol, or street drug use. FAMILY HISTORY: Positive for atherosclerotic car diovascular disease. REVIEW OF SYSTEMS: Remarkable for fatigue, insom cale, weakness, snoring. No acute GI or symptoms. No TIAs or strokes. PATIENT NAME: RODRIGUE STEPHENS 4550 PHYSICAL EXAMINATION: GENERAL: Reveals a pleasant young male in no acu te distress. VITAL SIGNS: Blood pressure 138/78, pulse 95 and regular, respiratory rate 18 to 20 and unlabored, and temperature afebrile. T he patient weighs around 310 pounds. HEENT: Head atraumatic and normocephalic. Eyes a nd ENT examination within normal for age. NECK: Supple. No jugular venous distention, brui ts, or lymphadenopathy. Normal upstroke. LUNGS: Clear and resonant. HEART: Regular rate and rhythm. The hear t is enlarged with I to II/ systolic ejection murmur at the left lower sternal border and no gallops. ABDOMEN: Soft, obese. No tenderness. No organome steven. No masses or bruits. EXTREMITIES: 2+ distal pulses. No edema, cyanosi s, or clubbing. NEUROLOGIC: Alert and oriented x3. The examinati on appears to be nonfocal. The patient has a hemodialysis catheter on the l eft chest. LABORATORY DATA: Pending. Noninvasive cardiovasc ular workup enclosed. IMPRESSION AND PLAN: This is a 31-year-old patie nt with dyspnea, hypertensive heart disease, hyperlipidemi a, cardiomegaly, diabetes, morbid obesity, multiple cardiovascular risk factors who is here for card iac catheterization to assess for transplant surgery. Given the patient's body habitus and given his risk factors, it was decided by [facility] Nephrolo gy in [facility] Cardiology that the patient will need a cardiac catheterization rather than a nuclear stress test or any other noninvasive measures to assess his coronar ies prior to transplant clearance. The recommendation is to proceed with left heart catheterization and possible revascularization. The risks and benefits of the planned procedures were discussed in detail with the patient and he is willing to proceed. Rest as per orders. Dictated By: Edwin Mendez MD WT: HP:CEZAR/GENI/MARCOS Conf#: [id number]/DID#: [id number] Authenticated and Edited by Edwin Mendez MD On 11/03/21 4:44:05 PM at 0445 PATIENT NAME: RODRIGUE STEPHENS 4550 2020-05-05 17:04:38-00:00 MATA CAMPOS [facility] OPERATIVE/PROCEDURE REPORT RODRIGUE STEPHENS FACILITY: [facility] Billing #: [id number] Room: [address] [place] [address] MR #: [id number] : 1990 DATE OF PROCEDURE: 05/04/2020 SURGEON: Mata Campos MD INDICATION: Mr. Rodrigue Stephens is here today for tunneled dialysis catheter exchange. The patient was expl ained all the risks and benefits of the procedure. The patient asked us to proceed. PROCEDURE IN DETAIL: The patient was taken to [facility] slab tripper and placed in supine position. After induction of co nscious sedation anesthesia, the patient was prepped and draped in appropriate surgical fashion. A 1% lidocaine was used to infiltrate the subcutaneous tissues. Using combi nation of sharp and blunt dissection, carefully dissected the cuff the catheter out. The catheter was exchanged for a l onger 32 cm catheter, tip was placed in the right atrium. We aspirated and flushed both lines and seemed to flushed easily, and packed with heparin, following instructions were used t o secure the catheter in place using a 2-0 nylon suture. The patient tolerated the procedure well and taken to the re covery in stable condition. ITM/MODL /[id number] 2018-02-04 12:44:00-00:00 ANNE CASTILLO DISCHARGE SUMMARY RODRIGUE STEPHENS [place] FACILITY: [facility] BILLING #: [id number] ROOM: [address] [place] [address] MR #: [id number] : 1990 DATE OF ADMISSION: 01/30/2018 DATE OF DISCHARGE: 02/04/2018 ATTENDING PHYSICIAN: Anne Castillo MD DISCHARGE DIAGNOSES 1. Left leg abscess secondary to methicillin-res istant Staphylococcus aureus. 2. Anemia of chronic disease, with acute drop in hemoglobin. 3. End-stage renal disease, on hemodialysis. 4. History of recent bilateral ischemic stroke. 5. Bilateral lower extremity lymphedema. 6. Hypertensive heart and kidney disease. CONSULTATIONS 1. Dr. Lisa Greenberg with general surgery. 2. Dr. Kadeem Felton with infectious disease. BRIEF HISTORY AND HOSPITAL COURSE: Patient is a 27-year-old gentleman, with history of recent bilateral ischemic stroke, who was admitted from [facility] for evaluation and manag ement of left calf abscess. Patient was seen in consultation with general rose edwin, and underwent incision and drainage of the abscess. Cultures were posit lizz for MRSA, for which patient was placed on vancomycin that was renall y dosed with dialysis. He continued to receive wound care in the hospital. Patient had episode of acute anemia, for which she received PRBC transf usion. He has been seen and evaluated today. Plan is for the patient to be d ischarged back to inpatient rehabilitation unit. I am waiting on the CBC res ults to come back, if hemoglobin is reasonable, without need for any b lood transfusion, patient will be discharged to inpatient rehabilitation. CONDITION ON DISCHARGE: Improved and stable. DISPOSITION: Inpatient rehabilitation. DISCHARGE INSTRUCTIONS 1. Activity as tolerated. 2. Renal diet. 3. Follow up with Dr. Greenberg in 1 to 2 weeks. 4. Follow up with primary care physician as need ed. Plan of care was discussed in detail with the sharath reynolds. I have also discussed plan of care with patient's mother and grandmoth er at the bedside. Total time spent discharging patient today was g reater than 35 minutes. VM/ei P P Job#: [id number] Doc#: [id number] FN: [id number] cc: Anne Castillo MD 2018-02-03 09:28:00-00:00 ANNE CASTILLO [facility] CONSULTATION [facility] RODRIGUE GERRY FACILITY: [facility] BILLING #: [id number] ROOM: [address] [place] [address] MR #: [id number] : 1990 DATE OF ADMISSION: 01/30/2018 DATE OF CONSULTATION: 02/03/2018 REQUESTING PHYSICIAN: MULTICULTURAL INTERNSHIP: Anne Castillo MD PROGRESS NOTE SUBJECTIVE: Patient denies any significant pain or discomfort this morning. He was undergoing hemodialysis at the time of my evaluation. Discussed with the nursing staff, no new concerns. PHYSICAL EXAMINATION VITALS: Temperature 97.3, pulse 72 per minute, r espiratory rate 18 per minute, oxygen saturation 96% on room air, blood pressure 144/77. GENERAL: Patient is awake and alert, resting com fortably in bed, no acute distress. CVS: S1, S2, regular rhythm. RS: Bilateral air entry. No wheezing or rhonchi. ABDOMEN: Soft and nontender. Positive bowel soun ds. EXTREMITIES: Bilateral lower extremity lymphedem a, with dressing over the left calf area seen. SENIOR POWER PLANT OPERATOR: Patient is awake and alert, no new focal de ficits. LABORATORY DATA: WBC 6.8, hemoglobin 6.5, hemato crit 19, platelets 198,000. Sodium 131, potassium 5, chloride 97, CO2 of 25, BUN 41, creatinine 9.74. ASSESSMENT AND PLAN 1. Acute intraoperative blood loss anemia, patie nt received 2 units of packed red blood cell transfusion yesterday. Hem oglobin continues to be low at 6.5, questionable spurious. We will recheck h emoglobin and hematocrit and consider further packed red blood cell transfusi on as needed. No clinical evidence to suggest any active bleeding plan. 2. Left calf abscess, status post incision and d rainage, postoperative day #3. Patient underwent debridement of the left le g for extensive pus and necrotic fat, continue with wound care as per ge banneral surgery. No new concerns at this time. 3. End-stage renal disease, on hemodialysis per schedule. 4. History of recent bilateral ischemic stroke, continue with rehabilitation as tolerated. Physical therapy consultation has been requested. 5. Bilateral lower extremity lymphedema. Continu e supportive management. Plan of care has been discussed in detail with t he patient and mother at the bedside. We will request physical therapy consul tation to assist patient's ability to participate in rehabilitation. If he is doing well, then we will plan to transfer back to [facility] today. Otherwise, we will need to consider for possible nursing home facility placement where he can continue to get physical therapy as well as wound care. Patient will also continue to receive IV a ntibiotics to his hemodialysis. Can likely discontinue cefepime as cultures were positive for MRSA. However, we will defer this to infectious disease. I have discussed plan of care with the patient a s well as mother at the bedside. VM/ei A A Job#: [id number] Doc#: [id number] FN: [id number] cc: Anne Castillo MD 2018-02-02 11:27:00-00:00 ARIEL AGUILERA [facility] CONSULTATION RODRIGUE STEPHENS FACILITY: [facility] BILLING #: [id number] ROOM: [facility] [id number] MR #: [id number] : 1990 DATE OF ADMISSION: 01/30/2018 DATE OF CONSULTATION: 02/02/2018 REQUESTING PHYSICIAN: MULTICULTURAL INTERNSHIP: Ariel Aguilera MD PROGRESS NOTE SUBJECTIVE: Patient complaining of mild left leg pain. Otherwise, denies any chest pain, shortness of breath, nausea or v omiting. LABORATORY INVESTIGATIONS: White count of 7.9, h emoglobin 6.2, platelet count of 203. PHYSICAL EXAMINATION VITAL SIGNS: Patient afebrile, blood pressure 12 8/85, pulse rate of 72, respiratory rate of 18, and ox saturation 95%. GENERAL: Patient is a well-built male, who is co mfortably lying in the bed, not in acute respiratory distress. HEENT: Head atraumatic, normocephalic. NECK: Supple. No JVD noted. HEART: S1, S2 heard, regular. No rubs or gallops noted. LUNGS: Fair air entry bilaterally. Has normal re spiratory effort. ABDOMEN: Soft, nontender. EXTREMITIES: Left leg with a dressing in place w ith some bleeding. ASSESSMENT 1. Acute blood loss anemia with anemia of chroni c kidney disease, possibly related to postoperative blood loss. Plan for 2 units packed RBC transfusion with dialysis today. 2. Left leg abscess secondary to methicillin-res istant Staphylococcus aureus, status post debridement with evacuation of exten sive pus and necrotic fat, postoperative day 2. We will continue cefepime a nd vancomycin for now as per infectious disease recommendations. Plan to cont inue present local wound care with [facility]. 3. End-stage renal disease, on hemodialysis. 4. History of bilateral ischemic stroke with rec ent respiratory failure, requiring mechanical ventilation, tracheostomy, and percutaneous endoscopic gastrostomy tube that was subsequently removed, presently stable. We will continue the present medication secondary preven tion. PLAN: Patient remains on cefepime and vancomycin for now. We will continue the local wound care. Plan for 2 units packed RB Cs today and we will recheck CBC tomorrow in a.m. If stable, our plan to disc harge the patient back to inpatient rehabilitation tomorrow. I have discus sed that with the patient and his significant other. REBECA/yesica A 11:2 7 A Job#: [id number] Doc#: [id number] FN: [id number] cc: Ariel Aguilera MD 2018-02-01 12:02:00-00:00 ARIEL AGUILERA [facility] CONSULTATION RODRIGUE STEPHENS FACILITY: [facility] BILLING #: [id number] ROOM: [address] [place] [address] MR #: [id number] : 1990 DATE OF ADMISSION: 01/30/2018 DATE OF CONSULTATION: 02/01/2018 REQUESTING PHYSICIAN: MULTICULTURAL INTERNSHIP: Ariel Aguilera MD PROGRESS NOTE SUBJECTIVE: Patient underwent debridement of lef t leg extensive pus and necrotic fat. Cultures show Staphylococcus aureu s. Remains on antibiotics. Patient continues to complain of left leg pain. He otherwise denies any chest pain, abdominal pain, nausea or vomiting. LABORATORY INVESTIGATIONS: None new today. PHYSICAL EXAMINATION VITAL SIGNS: Patient afebrile for the past 24 ho urs, blood pressure 148/82, pulse rate of 99, respiratory rate of 18, ox sat uration 98%. GENERAL: Patient is alert, awake, oriented. Appe ars mildly somnolent, but answering questions appropriately. HEENT: Head atraumatic, normocephalic. NECK: Supple. HEART: S1, S2 irregular. Increased rate noted. LUNGS: Fair air entry anteriorly. Has normal res piratory effort. EXTREMITIES: Left leg with a dressing in place. Wounds clean with minimal bleeding as per surgery. ASSESSMENT AND PLAN 1. Left leg abscess status post debridement with evacuation of extensive pus and necrotic fat, postoperative day 1. Cultures growing Staphylococcus aureus. We will continue with cefepime and vanco mycin for now. 2. End-stage renal disease, on hemodialysis. 3. Hypertension, controlled and stable on presen t medication. 4. Bilateral ischemic stroke with recent respira tory failure requiring mechanical ventilation as well as tracheostomy a nd PEG tube, which was subsequently removed. 5. Anemia of chronic kidney disease, stable. PLAN: Patient will be continued on broad-spectru m antibiotics for now. Will await final culture results. Will continue pain control with morphine and [place] as needed. Remains hemodynamically stable on present medications. GI and DVT prophylaxis to be continued. Also remain s on antiepileptic medications given concerns of seizure with bilat eral ischemic strokes. Plan discussed with patient and his family, all the q uestions were answered. ARS/vas A 12: 02 P Job#: [id number] Doc#: [id number] FN: [id number] cc: Ariel Aguilera MD 2018-01-31 18:53:00-00:00 MATTHEW SAHU [facility] CONSULTATION RODRIGUE STEPHENS FACILITY: [facility] BILLING #: [id number] ROOM: [facility] [id number] MR #: [id number] : 1990 DATE OF ADMISSION: 01/30/2018 DATE OF CONSULTATION: REQUESTING PHYSICIAN: Ariel Aguilera MD MULTICULTURAL INTERNSHIP: Matthew Sahu MD NEPHROLOGY CONSULTATION REASON FOR CONSULTATION: Management of end-stage renal disease. CHIEF COMPLAINT: Admission for left calf MRSA ab scess. HISTORY OF PRESENT ILLNESS: The patient is a manpreet y pleasant 27-year-old man well known to us for several months now with pas t medical history significant for end-stage renal disease receiving hemodialys is, as well as hypertension and most recently, severe bilateral ischemic str rosalina and subsequent aphasia, dysphagia, acute respiratory failure, requiring intubation, mechanical ventilation. Ultimately, progressing the tracheo stomy, then decannulation at LTAC facility. Patient was then subsequently transferred to [facility] for further rehab. He did, however, developed a left calf cellulitis with abscess and thus, underwent transfer from [facility], where we are seeing him there, to [facility], where he underw ent I and D of the abscess today per Dr. Lisa Greenberg. Patient has returned to the room in stable condi tion. He did undergo dialysis in the morning prior to the operation p er my orders, tolerated the treatment well. I confirmed this plan with Colt Briones, the dialysis nurses. REVIEW OF SYSTEMS: Patient is doing okay. Denies fever, cough, shortness of breath, chest pain, nausea, vomiting, diarrhea, dysuria, dizziness, headache. He does answer 1-word questions. Feeding tube wa s removed in OR today as well. PAST MEDICAL AND SURGICAL HISTORY 1. Hypertension. 2. End-stage renal disease, on dialysis Saturday, Saturday, Saturday. 3. Severe debilitating bilateral ischemic stroke requiring intubation, mechanical ventilation, tracheostomy, decannulat ion, prolonged LTAC admission, as well as feeding tube, which was re moved. 4. Left calf cellulitis and abscess, status post I and D today with cultures growing MRSA. 5. MRSA infection as above. FAMILY HISTORY: Negative for premature coronary artery disease and sudden . SOCIAL HISTORY: Patient has been hospitalized fo several months now. There is no tobacco, alcohol, illicit drug use. He is currently undergoing aggressive rehab. ALLERGIES: NKA. MEDICATIONS: Reviewed as per reconciliation velazco sfer MAR. EXAM VITAL SIGNS: Temperature 99.2, blood pressure is 168/96, heart rate is 79-94, respirations 18, O2 sat is 100%. GENERAL: Patient is comfortable, alert, able to answer questions. NECK: There is jugular distention. HEART: Sounds are S1 and S2 regular. LUNGS: Clear to auscultation. ABDOMEN: Soft. No tenderness, guarding. EXTREMITIES: Legs and arms there does not appear to be much edema. The left lower leg is dressed with extensive Aldo dressing . NEURO: Patient does answer 1-word questions. The re is some scar tissue at the tracheostomy site. However, it is well heale d. There is no drainage. Patient has fistula in place with good bruit. LABS STUDIES: Reviewed. Hemoglobin is 8.2. Potas sium is 3.5 following dialysis this morning. ASSESSMENT 1. End-stage renal disease, on dialysis on , Saturday, Saturday. 2. Hypertension. 3. Severe bilateral ischemic debilitating stroke requiring intubation, mechanical ventilation, tracheostomy, decannulat ion, prolonged long-term acute care stay with residual deficit. 4. Left calf cellulitis, abscess, status post in cision and drainage today per Dr. Lisa Greenberg. 5. Dysphagia, status post feeding tube placement and removal today. 6. Anemia of chronic kidney disease. PLAN 1. Patient underwent dialysis this morning prior to the OR as per my orders. 2. The next dialysis will be Saturday. If patient stabilizes, patient will be transferred back to [facility] for fu rther rehab. Plan was discussed with patient and patient's family memb ers in detail. Thank you for the opportunity of taking care of the patient. Please call me for any questions or concerns about the patient' s care. Will be adding Epogen as well to the MAR. SKS/cq P P Job#: [id number] Doc#: [id number] FN: [id number] cc: MatthewMD Ariel Baltazar MD 2018-01-31 14:54:00-00:00 ARIEL AGUILERA [facility] CONSULTATION MAZEPPARODRIGUE GERRY FACILITY: [facility] BILLING #: [id number] ROOM: [address] [place] [address] MR #: [id number] : 1990 DATE OF ADMISSION: 01/30/2018 DATE OF CONSULTATION: 01/31/2018 REQUESTING PHYSICIAN: MULTICULTURAL INTERNSHIP: Ariel Aguilera MD PROGRESS NOTE SUBJECTIVE: Patient taken to OR for left leg abs cess and drainage, underwent sharp excisional debridement of skin and subcuta neous tissue and removal of PEG tube as well. Otherwise, no acute issues ove rnight. LABORATORY DATA AND INVESTIGATIONS: White count 6.1, hemoglobin 8.2, platelet count of 234. Sodium of 137, potassium of 3.4, bicarb 27, creatinine 3.9. Underwent hemodialysis today mor rikki. PHYSICAL EXAMINATION VITALS: Patient has temperature max of 99.2 over night, presently afebrile. Blood pressure 139/94, pulse rate of 94, respira tory rate of 18. Ox saturation of 94%. Physical examination cannot be done fully as the patient seen in the immediate postoperative period. ASSESSMENT AND PLAN 1. Left calf/leg abscess, status post excisional debridement of skin and subcutaneous tissue. Cultures were sent. We will continue with present antibiotics. Patient was noted to have MRSA from prior cultures. We will continue present antibiotics as per ID recommend ations. 2. End-stage renal disease, on hemodialysis. 3. 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 4. History of bilateral ischemic stroke with res idual left-sided weakness and possible seizure disorder, remains on antiepilep tic medications and present medication for secondary prevention. 5. Gastrointestinal and deep venous thrombosis p rophylaxis to be continued. ARS/vas P 02:5 4 P Job#: [id number] Doc#: [id number] FN: [id number] cc: Ariel Aguilera MD 2018-01-30 19:21:00-00:00 ARIEL AGUILERA [facility] HISTORY AND PHYSICAL EXAMINATION MAZEPPA, [facility] FACILITY: [facility] BILLING #: [id number] ROOM: [address] [place] [address] MR #: [id number] : 1990 DATE OF ADMISSION: 01/30/2018 ADMITTING PHYSICIAN: Ariel Aguilera MD CHIEF COMPLAINT AND REASON FOR TRANSFER: Left ca lf MRSA abscess. HISTORY OF PRESENTING ILLNESS: Patient is a 27-y ear-old male who after acute hospitalization as well as a very long-term acut e care stay after being admitted with bilateral ischemic stroke with res piratory failure and acute kidney injury necessitating hemodialysis was tra nsferred to [facility] 7 to 10 days ago for further comprehensive rehab ilitation. He initially had left calf cellulitis, which has progressively wo rsened in the rehab facility and had venous Dopplers done, which showed no ev idence of DVT. Cultures grew methicillin-resistant Staphylococcus aureus infe ction and was started on vancomycin that he has been receiving with hemod ialysis. However, as his wound continued to worsen with significant drain age, he was transferred to [facility] today for need of incision and d rainage and further treatment. Infectious disease engagement quality consultant Dr. Felton has been informed as well, and there was a plan to do ultrasound in need of further evaluation. Unsure if the ultrasound of the leg was done. Patient o therwise is aseptic. Denies any fevers, chills, or rigors. Has mild left negrita f pain. Otherwise, denies any chest pain, shortness of breath, abdominal p ain, nausea, vomiting, dizziness, or lightheadedness. PAST MEDICAL HISTORY 1. End-stage renal disease, on hemodialysis, aft er recent hospitalization for acute renal failure. 2. Hypertensive kidney disease. 3. Hyperglycemia/diabetes mellitus type 2, on in sulin sliding scale. 4. History of recent bilaterally ischemic stroke with left residual, bilateral weakness, more weaker on the left side . 5. History of recent respiratory failure, status post tracheostomy and subsequent decannulation, presently stable. PAST SURGICAL HISTORY 1. Cholecystectomy several years ago. 2. Tracheostomy, subsequent decannulation and th en PEG tube placement. HOME MEDICATIONS: Please see MAR. ALLERGIES: NO KNOWN DRUG ALLERGIES. PERSONAL PSYCHOSOCIAL HISTORY: No history of smo hans, alcohol abuse, or usage of illicit drugs. FAMILY HISTORY: Negative for premature coronary artery or sudden cardiac . REVIEW OF SYSTEMS: Denies any fevers, chills, or rigors. Patient has been recovering well from his bilateral ischemic stro ke as well as recent respiratory failure, presently stable on room ai r. Tracheostomy site well healed. Denies any chest pain, shortness of марина th, abdominal pain, nausea, vomiting, dizziness, or lightheadedness. Remains on oral diet. Remains on dialysis. Denies any dysuria, burning, or mictur ition. No altered vision or altered hearing. No ear pain, earache, or ear di scharge. No tingling or numbness. Left calf has a dressing in place and is progressively worsen with worsening drainage. Rest of 14-point review of systems were negative . PHYSICAL EXAM VITAL SIGNS: Patient afebrile. Blood pressure 13 9/79, pulse rate of 78, respiratory rate of 18, and ox saturation of 98% . GENERAL: Patient is obese male who is alert, dl ke, oriented, calm, and comfortable, lying in the bed, answering simple questions appropriately, not in acute respiratory distress. HEENT: Head atraumatic, normocephalic. No sclera l icterus noted. NECK: Supple. Prior tracheostomy site well heale d. No thyromegaly noted. HEART: S1 and S2 heard. Regular. No rubs or gall ops noted. LUNGS: Fair air entry anteriorly. No adventitiou s breath sounds noted. Has normal respiratory effort. ABDOMEN: Soft and nontender. No guarding or rigi dity noted. Obese body habitus noted. PEG tube in place. EXTREMITIES: Left calf has a dressing in place w ith significant drainage. Peripheral venostasis changes noted. NEUROLOGIC: There is mild left-sided residual we akness, but otherwise able to move all extremities to gravity. PSYCHIATRIC: Mood and affect normal. MUSCULOSKELETAL: Grossly nonfocal. LABORATORY INVESTIGATIONS AND IMAGING: From [facility], reviewed. ASSESSMENT AND PLAN 1. Left calf abscess secondary to methicillin-re sistant Staphylococcus aureus. Patient has been receiving vancomycin, b ut as a wound, this continues to progress, general surgery, Dr. Greenberg has been consulted for incision and drainage. We will obtain ID consult with Dr. Sarabia. 2. End-stage renal disease on hemodialysis. Dr. Karimied to be consulted tomorrow for dialysis need. Patient on scheduled hemodialysis Saturday, Saturday, and Saturday. 3. Hypertensive kidney disease: Blood pressure s table. We will restart chronic maintenance antihypertensive medications . 4. History of recent bilateral ischemic stroke w ith mild left residual weakness. We will continue with chronic maintena nce medication for secondary prevention. 5. Diabetes mellitus type 2: We will cover with insulin sliding scale. 6. Deep venous thrombosis prophylaxis with hepar in and sequential compression devices based on the timing of surgery. 7. History of recent respiratory failure status post tracheostomy subsequent decannulation, presently stable. Tracheostomy si te well-healed. 8. Dysphagia, status post percutaneous endoscopi c gastrostomy tube placement. He is able to tolerate oral diet now. Gastroente rology to be consulted for removal of percutaneous endoscopic gastrostomy t ube discussed. Plan discussed with patient and his grandmother. All their questions were answered. REBECA/dyan P 07:2 1 P Job#: [id number] Doc#: [id number] FN: [id number] cc: Ariel Aguilera MD
--- NOTE | 2023-06-10 16:26 | EDPHYS ---
Physician Documentation [facility] Name: Rodrigue Arreola Jr Age: 32 yrs Sex: Male : 1990 Arrival Date: 06/10/2023 Time: 15:36 Bed 7 Private MD: ED Physician Desiree Yeung HPI: 06/10 16:26 This 32 yrs old Black Male presents to ER via EMS with complaints of WEAKNESS. cp3 16:21 Patient is a 32-year-old male with a history of CVA, CHF, diabetes, end-stage renal cp3 disease who presents from dialysis secondary to low blood pressure prior to arrival EMS documented blood pressure of 100/70 prior to arrival with an elevated heart rate in the 120s. The patient denies weakness, shortness of breath, chest pain, neuro symptoms. Patient endorses that he feels like the dialysis nurse was exaggerating his symptoms and he feels fine and wants to go home. Historical: - Allergies: 15:54 No Known Allergies; ko - PMHx: 15:54 Cerebrovascular accident; CHF; CVA; Diabetes - IDDM; Dialysis; Saturday, , ko1 Saturday; ESRD; Hypertension; Hypothyroidism; - Immunization history:: Adult Immunizations up to date. - Social history:: Smoking status: Patient denies any tobacco usage or history of. - Family history:: not pertinent. ROS: 16:21 Constitutional: Negative for fever, chills, and weight loss, Eyes: Negative for injury, cp3 pain, redness, and discharge, ENT: Negative for injury, pain, and discharge, Neck: Negative for injury, pain, and swelling, Cardiovascular: Negative for chest pain, palpitations, and edema, Respiratory: Negative for shortness of breath, cough, wheezing, and pleuritic chest pain, Abdomen/GI: Negative for abdominal pain, nausea, vomiting, diarrhea, and constipation, MS/Extremity: Negative for injury and deformity, Skin: Negative for injury, rash, and discoloration, Neuro: Negative for headache, weakness, numbness, tingling, and seizure, Exam: 16:21 Constitutional: This is a well developed, well nourished patient who is awake, alert, cp3 and in no acute distress. Head/Face: Normocephalic, atraumatic. Eyes: Pupils equal round and reactive to light, extra-ocular motions intact. Lids and lashes normal. Conjunctiva and sclera are non-icteric and not injected. Cornea within normal limits. Periorbital areas with no swelling, redness, or edema. ENT: Nares patent. No nasal discharge, no septal abnormalities noted. Tympanic membranes are normal and external auditory canals are clear. Oropharynx with no redness, swelling, or masses, exudates, or evidence of obstruction, uvula midline. Mucous membranes moist. Neck: Trachea midline, no thyromegaly or masses palpated, and no cervical lymphadenopathy. Supple, full range of motion without nuchal rigidity, or vertebral point tenderness. No Meningismus. Chest/axilla: Normal chest wall appearance and motion. Nontender with no deformity. No lesions are appreciated. 16:21 Respiratory: Lungs have equal breath sounds bilaterally, clear to auscultation and percussion. No rales, rhonchi or wheezes noted. No increased work of breathing, no retractions or nasal flaring. Abdomen/GI: Soft, non-tender, with normal bowel sounds. No distension or tympany. No guarding or rebound. No evidence of tenderness throughout. Male : Normal genitalia with no discharge or lesions. Skin: Warm, dry with normal turgor. Normal color with no rashes, no lesions, and no evidence of cellulitis. MS/ Extremity: Pulses equal, no cyanosis. Neurovascular intact. Full, normal range of motion. Neuro: Awake and alert, GCS 15, oriented to person, place, time, and situation. Cranial nerves II-XII grossly intact. Motor strength 5/5 in all extremities. Sensory grossly intact. Cerebellar exam normal. Normal gait. Psych: Awake, alert, with orientation to person, place and time. Behavior, mood, and affect are within normal limits. 16:21 Cardiovascular: Rate: tachycardic, Rhythm: regular, Vital Signs: 15:51 BP 122 / 57; Pulse 114; Resp 18; Temp 98; Pulse Ox 99% on R/A; ko1 16:09 BP 128 / 61; Pulse 105; Resp 18; Pulse Ox 98% on R/A; Pain 0/10; ld1 16:09 Pain Scale: Adult ld1 MDM: 15:38 Patient medically screened. cp3 16:21 Differential Diagnosis Arrhythmia, hypovolemia, electrolyte abnormality, A-fib with cp3 RVR, hyperglycemia, hyperkalemia . Data reviewed: vital signs, nurses notes, EMS record. Consideration of Admission/Observation Patient was admitted/placed on observation. Escalation of care including admission/observation considered. Management of patient was discussed with the following: DR WANG WHO CAME BY THE ED AND ENDORSED SHE HAD SENT THE PATIENT TO THE ED FOR EVALUATION OF TACHYCARDIA AND LOW BP. Special discussion: AMA- PATIENT REFUSING ALL LAB, RAD, EKG, MONITORING AT THIS TIME. DISCUSSED RISK OF FAILURE TO DIAGNOSE ILLNESS, DISABILITY, , WORSENING CONDITION. PATIENT IS ALERT AND ORIENTED AND REFUSING CARE. PATIENT ENDORSES HE HAS AN APPOINTMENT TOMORROW FOR NEPHRECTOMY. 06/10 15:53 Order name: EKG; Complete Time: 15:53 cp3 06/10 15:53 Order name: Cardiac monitoring; Complete Time: 16:11 cp3 06/10 15:53 Order name: NPO; Complete Time: 16:04 cp3 Administered Medications: No medications were administered Disposition Summary: 06/10/23 16:26 Left Against Medical Advice Notes: Location: Home cp3 Problem: new cp3 Symptoms: have improved cp3 Condition: Stable cp3 Diagnosis - End stage renal disease cp3 - Tachycardia, unspecified cp3 - Weakness cp3 Signatures: Dispatcher [employer] Desiree Mccarthy MD MD cp3 Snehal Castrejon RN RN ko1 Corrections: (The following items were deleted from the chart) 16:11 15:53 EKG - Nurse/Tech ordered. cp3 ld1 16:11 15:53 Labs collected and sent ordered. cp3 ld1 16:11 15:53 Orthostatics ordered. cp3 ld1
--- NOTE | 2023-06-10 16:26 | ER ---
Nurse's Notes [facility] Name: Rodrigue Arreola Jr Age: 32 yrs Sex: Male : 1990 Arrival Date: 06/10/2023 Time: 15:36 Bed 7 Private MD: Diagnosis: End stage renal disease;Tachycardia, unspecified;Weakness Presentation: 06/10 15:51 Chief complaint: EMS states: called by dialysis center, patient was not even an hour ko1 into dialysis and his heart rate went to the 130's and bp was systolic in the 50's. EMS arrived and patients symptoms had resolved. He did not want to come to the hospital, he is scheduled for a nephrectomy tomorrow. HR remains 118-120. Coronavirus screen: At this time, the client does not indicate any symptoms associated with coronavirus-19. Ebola Screen: No symptoms or risks identified at this time. Initial Sepsis Screen: Does the patient meet any 2 criteria? No. Patient's initial sepsis screen is negative. Does the patient have a suspected source of infection? No. Patient's initial sepsis screen is negative. Risk Assessment: Do you want to hurt yourself or someone else? Patient reports no desire to harm self or others. Onset of symptoms was June 10, 2023. 15:51 Method Of Arrival: EMS: [facility] ko1 15:51 Acuity: DAVID 3 ko1 Triage Assessment: 15:54 General: Appears in no apparent distress. comfortable, Behavior is appropriate for age, ko1 agitated, flat. Pain: Denies pain. Historical: - Allergies: 15:54 No Known Allergies; ko1 - PMHx: 15:54 Cerebrovascular accident; CHF; CVA; Diabetes - IDDM; Dialysis; Saturday, , ko1 Saturday; ESRD; Hypertension; Hypothyroidism; - Immunization history:: Adult Immunizations up to date. - Social history:: Smoking status: Patient denies any tobacco usage or history of. - Family history:: not pertinent. Screenin:10 [facility] ED Fall Risk Assessment (Adult) History of falling in the last 3 months, ld1 including since admission No falls in past 3 months (0 pts). Abuse screen: Denies threats or abuse. Denies injuries from another. Nutritional screening: No deficits noted. Tuberculosis screening: No symptoms or risk factors identified. Assessment: 16:09 Reassessment: Pt asking to sign out AMA. States "I am having surgery tomorrow, I do not ld1 need all of this, I feel fine. The dialysis clinic made me come to the ER but I do not want to be seen." Notified ERP. Patient completed AMA form. Discharged at this time. General: Appears in no apparent distress. comfortable, Behavior is calm, cooperative, appropriate for age. Pain: Denies pain. Neuro: Level of Consciousness is awake, alert, obeys commands, Oriented to person, place, time, situation. Cardiovascular: Capillary refill < 3 seconds Patient's skin is warm and dry. Rhythm is sinus rhythm. Respiratory: Airway is patent Respiratory effort is even, unlabored. GI: Abdomen is round non-distended. : No signs and/or symptoms were reported regarding the genitourinary system. EENT: No signs and/or symptoms were reported regarding the EENT system. Derm: No signs and/or symptoms reported regarding the dermatologic system. Musculoskeletal: No signs and/or symptoms reported regarding the musculoskeletal system. Vital Signs: 15:51 BP 122 / 57; Pulse 114; Resp 18; Temp 98; Pulse Ox 99% on R/A; ko1 16:09 BP 128 / 61; Pulse 105; Resp 18; Pulse Ox 98% on R/A; Pain 0/10; ld1 16:09 Pain Scale: Adult ld1 ED Course: 15:38 Patient arrived in ED. bd 15:38 Desiree Yeung MD is Attending Physician. cp3 15:51 Snehal Castrejon, FRITZ is Primary Nurse. ko1 15:54 Triage completed. ko1 15:54 Arm band placed on right wrist. Patient placed in an exam room, on a stretcher, on ko1 color television console monitor, on pulse oximetry, Patient notified of wait time. 16:10 Patient has correct armband on for positive identification. Placed in gown. Bed in low ld1 position. Call light in reach. Side rails up X2. color television console monitor on. Pulse ox on. NIBP on. Door closed. Noise minimized. Warm blanket given. 16:10 No provider procedures requiring assistance completed. Patient did not have IV access ld1 during this emergency room visit. Administered Medications: No medications were administered Outcome: 16:10 AMA AMA form signed ld1 16:10 Condition: stable 16:10 Discharge instructions given to patient, Instructed on discharge instructions, follow up and referral plans. Demonstrated understanding of instructions, follow-up care, 16:27 Patient left the ED. ko1 Signatures: Sabrina Dalton Cwanza, MD MD cp3 Jie Anne RN RN ld1 Snehal Castrejon RN RN ko1
[2023-06-10 17:24] VITALS: TEMP 98
[2023-06-10 17:25] VITALS: BP 128/61; O2SAT 98
== END 2023-06-10 16:27 | disposition left against medical advice (07) ==
LOC: ER 15:36
DX: R53.1 Weakness (principal); R00.0 Tachycardia, unspecified; E11.22 Type 2 diabetes mellitus with diabetic chronic kidney disease; I13.2 Hypertensive heart and chronic kidney disease with heart failure and with stage 5 chronic kidney disease, or end stage renal disease; I50.9 Heart failure, unspecified; N18.6 End stage renal disease; Z99.2 Dependence on renal dialysis
CPT/HCPCS: 99284

== ENCOUNTER 2023-08-27 07:23 | Day surgery (SDC) | payer OTHER ==
[2023-08-26 12:54] LABS: Absolute Lymphocytes (CBC) 1.2 K/uL (0.7-4.9); Hematocrit 25.2 % (39.6-49.0); Lymphocytes % 21.9 % (15.3-44.8); MCV 85.6 fL (80-100); MPV 7.8 fL (7.6-11.3); Platelets 205 thou/uL (152-406); RBC Red Blood Cell Count 2.95 M/uL (4.33-5.43)
[2023-08-26 13:23] LABS: Potassium 5.4 mEq/L (3.5-5.1)
[2023-08-26 15:03] LABS: Anisocytosis 1+; Blood Morphology Comment NOTED (NOT SEEN); Platelet Estimate ADEQ; Poikilocytosis 1+; White Blood Cell Scan OK (OK)
[2023-08-27] MEDS ORDERED: ACETAMINOPHEN 325 MG TABLET ONE (07:34)
[2023-08-27] MEDS ORDERED: DIPHENHYDRAMINE 50 MG/ML VIAL ONE (07:34)
[2023-08-27] MEDS ORDERED: NA CHLORIDE 0.9% 250 ML ONE (07:40)
[2023-08-27] MEDS ORDERED: NA CHLORIDE 0.9% 500 ML ONE (10:54)
[2023-08-27 14:19] VITALS: BMI 35.9
[2023-08-27 15:09] LABS: Absolute Lymphocytes (CBC) 0.7 K/uL (0.7-4.9); Lymphocytes % 20.5 % (15.3-44.8); MCV 86.2 fL (80-100); MPV 7.6 fL (7.6-11.3); Platelets 164 thou/uL (152-406); RBC Red Blood Cell Count 3.07 M/uL (4.33-5.43)
[2023-08-27 15:21] LABS: Potassium 4.5 mEq/L (3.5-5.1)
[2023-08-27 15:27] LABS: Hematocrit 26.4 % (39.6-49.0)
[2023-08-27 15:37] LABS: White Blood Cell Scan OK (OK)
[2023-08-27 15:38] LABS: Anisocytosis 1+; Blood Morphology Comment NOTED (NOT SEEN); Platelet Estimate ADEQ
[2023-08-27 15:50] VITALS: BP 113/72; TEMP 97.2; O2SAT 100
== END 2023-08-27 15:42 | disposition home or self-care (01) ==
LOC: DS 07:23
PROVIDERS: ATTEND Internal Medicine
DX: D64.9 Anemia, unspecified (principal); Z01.812 Encounter for preprocedural laboratory examination
CPT/HCPCS: 85025 ×2; 80048 ×2; 36415 ×2; 86900; 86850; 86901; 86920 ×2; 36430; J1200; P9016 ×2; J7050; J7040

== ENCOUNTER → 2023-09-21 | Emergency (ER) | payer OTHER ==
[~2023-09-21] MED LIST: FENTANYL CITR 100 MCG/2 ML ONE; HYDROMORPHONE HCL 1 MG/ML INJ ONE
[2023-09-21 01:14] LABS: Absolute Lymphocytes (CBC) 1.1 K/uL (0.7-4.9); Hematocrit 26.3 % (39.6-49.0); Lymphocytes % 23.2 % (15.3-44.8); MCV 88.4 fL (80-100); MPV 7.9 fL (7.6-11.3); Platelets 109 thou/uL (152-406); RBC Red Blood Cell Count 2.98 M/uL (4.33-5.43)
[2023-09-21 02:06] LABS: Albumin 3.4 g/dL (3.4-5.0); Bilirubin Direct 0.2 mg/dL (0-0.2); Bilirubin Indirect, Calculated 0.3 mg/dL (0.2-0.8); Bilirubin Total 0.5 mg/dL (0.2-1.0)
[2023-09-21 02:07] LABS: Magnesium 2.4
[2023-09-21 02:17] LABS: Protime INR 1.2
--- NOTE | 2023-09-21 02:41 | EDPHYS ---
Physician Documentation [facility] Name: Rodrigue Arreola Jr Age: 32 yrs Sex: Male : 1990 Arrival Date: 09/21/2023 Time: 00:15 Bed 6 Private MD: ED Physician Shaheen Dumas HPI: 09/21 00:33 This 32 yrs old Black Male presents to ER via Unassigned with unknown complaint. cp 00:33 The patient or guardian reports decreased range of motion, deformity, an injury, pain. cp sustained from a fall, from wheelchair, the left lower extremity is shortened, left leg is externally rotated. Onset: The symptoms/episode began/occurred today. 00:33 Associated signs and symptoms: Loss of consciousness: the patient experienced no loss cp of consciousness, Pertinent negatives: abdominal pain, chest pain, fever, shortness of breath, back pain. 00:33 Severity of symptoms: in the emergency department the symptoms are unchanged, despite cp EMS interventions. Historical: - Allergies: 02:04 Plavix; jw7 - Home Meds: 02:04 Metoprolol Tartrate Oral [Active]; calcitriol oral [Active]; Tums Oral [Active]; jw7 Aspirin Oral [Active]; Lipitor Oral [Active]; mirtazapine Oral [Active]; Velphoro oral [Active]; - PMHx: 02:04 Cerebrovascular accident; CHF; CVA; Dialysis; Saturday; ESRD; Diabetes - IDDM; jw7 Hypertension; Hypothyroidism; Seizure; Renal failure; - PSHx: 02:04 Parathyroidectomy; Cholecystectomy; Right Nephrectomy; Fistulas; Grafts; Left Leg jw7 Surgery; - Immunization history:: Adult Immunizations up to date, Client reports having NOT received the Covid vaccine. Pneumococcal vaccine is up to date, Flu vaccine is up to date. - Social history:: Smoking status: Patient denies any tobacco usage or history of. Patient/guardian denies using alcohol, street drugs, IV drugs. ROS: 00:35 MS/extremity: Positive for injury or acute deformity, decreased range of motion, pain, cp of the left hip, 00:35 Constitutional: Negative for body aches, chills, fever, poor PO intake, cp 00:35 Cardiovascular: Negative for chest pain, 00:35 Respiratory: Negative for cough, shortness of breath, wheezing, 00:35 Neck: Negative for pain with movement, pain at rest, stiffness, cp 00:35 Abdomen/GI: Negative for abdominal pain, 00:35 Back: Negative for pain at rest, pain with movement, 00:35 Neuro: Negative for altered mental status, headache, loss of consciousness, syncope, 00:35 Eyes: Negative for injury, pain, redness, and discharge, cp 00:35 All other systems are negative, Exam: 00:40 Constitutional: The patient appears in no acute distress, alert, awake, non-toxic, well cp developed, well nourished, obese, uncomfortable, 00:40 Head/Face: Normocephalic, atraumatic. cp 00:40 Eyes: Periorbital structures: appear normal, Conjunctiva: normal, no exudate, no injection, Sclera: no appreciated abnormality, Lids and lashes: appear normal, bilaterally, 00:40 ENT: External ear(s): are unremarkable, Nose: is normal, Mouth: Lips: moist, Oral mucosa: moist, Posterior pharynx: Airway: no evidence of obstruction, patent, 00:40 Neck: ROM/movement: is normal, is supple, without pain, no range of motions limitations, 00:40 Chest/axilla: Inspection: normal, Palpation: is normal, no crepitus, no tenderness, 00:40 Cardiovascular: Rate: normal, Rhythm: regular, Edema: ankle edema, that is moderate, JVD: is not appreciated, 00:40 Respiratory: the patient does not display signs of respiratory distress, Respirations: normal, no use of accessory muscles, no retractions, labored breathing, is not present, Breath sounds: decreased breath sounds, are not appreciated, stridor, is not appreciated, wheezing: is not appreciated, 00:40 Abdomen/GI: Inspection: abdomen appears normal, Bowel sounds: active, all quadrants, Palpation: abdomen is soft and non-tender, in all quadrants, 00:40 Back: pain, is absent, 00:40 Musculoskeletal/extremity: Extremities: noted in the left hip: decreased ROM, deformity, pain, tenderness, ROM: limited passive range of motion due to pain, in the left hip, the left hip Severe pain noted. 00:40 Neuro: Orientation: to person, place \T\ time. Mentation: is normal, 01:09 ECG was reviewed by the Attending Physician. Vital Signs: 00:20 BP 94 / 72; Pulse 98; Resp 15 S; Temp 98.3(O); Pulse Ox 96% on R/A; Weight 113.4 kg; jw7 Height 6 ft. 4 in. ; Pain 10/10; 01:00 BP 115 / 76; Pulse 100; Resp 14; Pulse Ox 99% ; vc1 02:00 BP 137 / 99; Pulse 103; Resp 12; Pulse Ox 98% ; vc1 03:00 BP 154 / 58; Pulse 102; Resp 12; Pulse Ox 99% ; vc1 04:00 BP 135 / 88; Pulse 102; Resp 19; Pulse Ox 96% ; vc1 05:00 BP 104 / 66; Pulse 103; Resp 15; Pulse Ox 96% ; vc1 06:19 BP 112 / 88; Pulse 100; Resp 21; Pulse Ox 98% ; vc1 00:20 Body Mass Index 30.43 (113.40 kg, 193.04 cm) [facility] 00:20 Pain Scale: Adult [facility] MDM: 00:31 Patient medically screened. [facility] 02:55 Management of patient was discussed with the following: DR Álvarez, ortho end user consultant, [facility] as requested by patient and family. 03:00 Data reviewed: vital signs, nurses notes, lab test result(s), EKG, radiologic studies, plain films. 03:00 Independent interpretation of the following test(s) in the Emergency Department EKG: cp See my EKG interpretation above. Care significantly affected by the following chronic conditions: Diabetes, Hypertension, Chronic Kidney Disease. Counseling: I had a detailed discussion with the patient and/or guardian regarding the historical points, exam findings, and any diagnostic results supporting the discharge/admit diagnosis, lab results, radiology results, the need to transfer to another facility, for higher level of care. Response to treatment: the patient's symptoms have markedly improved after treatment. 09/21 00:32 Order name: Basic Metabolic Panel; Complete Time: 02:25 09/21 02:26 Interpretation: Normal except: NA 133; GLUC 213; BUN 59; CRE 9.63; GFR 7; CA 7.9. 09/21 00:32 Order name: CBC with Diff; Complete Time: 02:25 09/21 02:26 Interpretation: Normal except: RBC 2.98; HGB 8.5; HCT 26.3; PLT 109; RDW 22.6. cp 09/21 00:32 Order name: LFT's; Complete Time: 02:25 cp 09/21 02:26 Interpretation: Normal except: AST 12; ALT 15; ALK 999; GLOB 3.6; A/G 0.9. cp 09/21 00:32 Order name: Magnesium; Complete Time: 02:25 cp 09/21 00:32 Order name: PT-INR; Complete Time: 02:25 cp 09/21 02:27 Interpretation: Reviewed. cp 09/21 00:32 Order name: Troponin HS; Complete Time: 02:25 cp 09/21 02:40 Interpretation: Reviewed. cp 09/21 00:32 Order name: Ptt, Activated; Complete Time: 02:25 cp 09/21 02:29 Interpretation: Reviewed. cp 09/21 00:32 Order name: XRAY Chest (1 view) cp 09/21 00:32 Order name: XRAY Pelvis cp 09/21 00:32 Order name: XRAY Femur LEFT cp 09/21 01:56 Order name: CT Chest Abdomen Pelvis W/O Contrast cp 09/21 00:32 Order name: EKG; Complete Time: 00:33 cp 09/21 00:32 Order name: Cardiac monitoring; Complete Time: 01:40 cp 09/21 00:32 Order name: EKG - Nurse/Tech; Complete Time: 01:40 cp 09/21 00:32 Order name: IV Saline Lock; Complete Time: 01:57 cp 09/21 00:32 Order name: Labs collected and sent; Complete Time: 01:40 cp 09/21 00:32 Order name: O2 Per Protocol; Complete Time: 01:40 cp 09/21 00:32 Order name: O2 Sat Monitoring; Complete Time: 01:40 cp EC:09 Rate is 101 beats/min. Rhythm is regular. GA interval is normal. QRS interval is cp normal. QT interval is normal. T waves are Inverted in lead aVR. Interpreted by me. Reviewed by me. Administered Medications: 01:33 CANCELLED (Physician Discretion): hydromorphone1 mg IM once cp 01:44 Not Given (Physician Discretion): fentanyl (pf)50 mcg IM once cp 01:56 Drug: fentaNYL (PF) IVP 50 mcg IVP once Route: IVP; Site: Other; vc1 03:43 Drug: HYDROmorphone IVP 1 mg IVP once Route: IVP; Site: Other; vc1 Disposition Summary: 09/21/23 02:40 Transfer Ordered Notes: Transfer Location: [facility] cp Reason: Higher level of care cp Condition: Stable cp Problem: new cp Symptoms: have improved cp Accepting Physician: DR Lyons(09/21/23 07:11) ld1 Diagnosis - Fall from non-moving wheelchair cp - Displaced fracture of base of neck of left femur cp - Anemia in chronic kidney disease cp - Diabetes mellitus due to underlying condition with hyperglycemia cp Forms: - Medication Reconciliation Form cp - SBAR form cp Signatures: Dispatcher [employer] EDMS Shaheen Dumas MD MD cha Page, Corey, PA PA cp Jie Anne, RN RN ld1 Marta Danielle RN RN vc1 Lynn Gardner RN RN jw7 Corrections: (The following items were deleted from the chart) 01:33 01:32 HYDROmorphone IM 1 mg IM once ordered. cp cp 02:41 02:40 doctor cp cp 03:26 02:41 doctor cp cp 07:11 03:26 DR Lyons cp ld1 22:58 02:55 Management of patient was discussed with the following: Behavioral Health cp Provider: niall Arellano \[facility], consulted . DR Isauro angelo
--- NOTE | 2023-09-21 02:41 | ER ---
Nurse's Notes [facility] Name: Rodrigue Arreola Jr Age: 32 yrs Sex: Male : 1990 Arrival Date: 09/21/2023 Time: 00:15 Bed 6 Private MD: Diagnosis: Fall from non-moving wheelchair;Displaced fracture of base of neck of left femur;Anemia in chronic kidney disease;Diabetes mellitus due to underlying condition with hyperglycemia Presentation: 09/21 00:20 Chief complaint: Patient states: "I fell a few days ago and hurt my hip, and then I jw7 fell again today, out of my wheelchair". Coronavirus screen: At this time, the client does not indicate any symptoms associated with coronavirus-19. Ebola Screen: No symptoms or risks identified at this time. Initial Sepsis Screen: Does the patient meet any 2 criteria? No. Patient's initial sepsis screen is negative. Does the patient have a suspected source of infection? No. Patient's initial sepsis screen is negative. Risk Assessment: Do you want to hurt yourself or someone else? Patient reports no desire to harm self or others. Onset of symptoms was September 18, 2023. 00:20 Method Of Arrival: EMS: [facility] 7 00:20 Acuity: DAVID 3 jw7 Triage Assessment: 00:20 General: Appears in no apparent distress. uncomfortable, Behavior is calm, cooperative. jw7 Pain: Complains of pain in left leg and hip Pain does not radiate. Pain currently is 10 out of 10 on a pain scale. Quality of pain is described as aching, Pain began 2-3 days ago. Is continuous, Alleviated by rest, Aggravated by increased activity, repositioning, Noted to be grimacing, resistant to movement. EENT: No deficits noted. No signs and/or symptoms were reported regarding the EENT system. Neuro: Akhtar Agitation-Sedation Scale (RASS): 0 - Alert and Calm Level of Consciousness is awake, alert, obeys commands, Oriented to person, place, time, situation. Cardiovascular: Capillary refill < 3 seconds Clubbing of nail beds is absent JVD is absent Patient's skin is warm and dry. Respiratory: Airway is patent Trachea midline Respiratory effort is even, unlabored, Respiratory pattern is regular, symmetrical. GI: Abdomen is round non-distended. : No deficits noted. No signs and/or symptoms were reported regarding the genitourinary system. Derm: Skin is intact, is healthy with good turgor, Skin is dry, Skin is normal, Skin temperature is warm. Musculoskeletal: Circulation, motion, and sensation intact. Range of motion: limited in left hip. Historical: - Allergies: 02:04 Plavix; jw7 - Home Meds: 02:04 Metoprolol Tartrate Oral [Active]; calcitriol oral [Active]; Tums Oral [Active]; jw7 Aspirin Oral [Active]; Lipitor Oral [Active]; mirtazapine Oral [Active]; Velphoro oral [Active]; - PMHx: 02:04 Cerebrovascular accident; CHF; CVA; Dialysis; Saturday; ESRD; Diabetes - IDDM; jw7 Hypertension; Hypothyroidism; Seizure; Renal failure; - PSHx: 02:04 Parathyroidectomy; Cholecystectomy; Right Nephrectomy; Fistulas; Grafts; Left Leg jw7 Surgery; - Immunization history:: Adult Immunizations up to date, Client reports having NOT received the Covid vaccine. Pneumococcal vaccine is up to date, Flu vaccine is up to date. - Social history:: Smoking status: Patient denies any tobacco usage or history of. Patient/guardian denies using alcohol, street drugs, IV drugs. Screenin:20 [facility] ED Fall Risk Assessment (Adult) History of falling in the last 3 months, jw7 including since admission Yes- physiologic fall (2 pts) Confusion or Disorientation No (0 pts) Intoxicated or Sedated No (0 pts) Impaired Gait Yes (1 pt) Mobility Assist Device Used Yes (1 pt) Altered Elimination No (0 pt) Score/Fall Risk Level 3 or more points = High Risk Oriented to surroundings, Maintained a safe environment, Educated pt \\T\\ family on fall prevention, incl call for assistance when getting out of bed, Assessed \\T\\ reinforced patient's understanding of fall precautions, Provided non-skid footwear. Abuse screen: Denies threats or abuse. Denies injuries from another. Nutritional screening: No deficits noted. Tuberculosis screening: No symptoms or risk factors identified. Assessment: 00:30 General: See triage assessment . jw7 01:30 Reassessment: Patient appears in no apparent distress at this time. No changes from jw7 previously documented assessment. Patient and/or family updated on plan of care and expected duration. Pain level reassessed. Patient is alert, oriented x 3, equal unlabored respirations, skin warm/dry/pink. 02:30 Reassessment: No changes from previously documented assessment. Patient and/or family vc1 updated on plan of care and expected duration. Pain level reassessed. Patient is alert, oriented x 3, equal unlabored respirations, skin warm/dry/pink. Pain: Complains of pain in left hip Pain currently is 10 out of 10 on a pain scale. 03:30 Reassessment: No changes from previously documented assessment. Patient and/or family vc1 updated on plan of care and expected duration. Pain level reassessed. Patient is alert, oriented x 3, equal unlabored respirations, skin warm/dry/pink. 05:18 Reassessment: Patient and/or family updated on plan of care and expected duration. Pain vc1 level reassessed. Patient is alert, oriented x 3, equal unlabored respirations, skin warm/dry/pink. Patient states symptoms have improved. 06:19 Reassessment: No changes from previously documented assessment. Patient and/or family vc1 updated on plan of care and expected duration. Pain level reassessed. Patient is alert, oriented x 3, equal unlabored respirations, skin warm/dry/pink. Vital Signs: 00:20 BP 94 / 72; Pulse 98; Resp 15 S; Temp 98.3(O); Pulse Ox 96% on R/A; Weight 113.4 kg; jw7 Height 6 ft. 4 in. ; Pain 10/10; 01:00 BP 115 / 76; Pulse 100; Resp 14; Pulse Ox 99% ; vc1 02:00 BP 137 / 99; Pulse 103; Resp 12; Pulse Ox 98% ; vc1 03:00 BP 154 / 58; Pulse 102; Resp 12; Pulse Ox 99% ; vc1 04:00 BP 135 / 88; Pulse 102; Resp 19; Pulse Ox 96% ; vc1 05:00 BP 104 / 66; Pulse 103; Resp 15; Pulse Ox 96% ; vc1 06:19 BP 112 / 88; Pulse 100; Resp 21; Pulse Ox 98% ; vc1 00:20 Body Mass Index 30.43 (113.40 kg, 193.04 cm) [facility] 00:20 Pain Scale: Adult [facility] ED Course: 00:20 Patient has correct armband on for positive identification. Bed in low position. Call jw7 light in reach. Side rails up X2. 00:20 Arm band placed on. jw7 00:30 Patient arrived in ED. cp 00:30 Shaheen Paredes PA is PHCP. cp 00:30 Shaheen Dumas MD is Attending Physician. cp 01:30 Missed attempt(s): 20 gauge in right antecubital area. vc1 01:54 XRAY Chest (1 view) In Process Unspecified. EDMS 01:54 XRAY Pelvis In Process Unspecified. EDMS 01:54 XRAY Femur LEFT In Process Unspecified. EDMS 01:55 Inserted saline lock: 24 gauge in right ,using aseptic technique. abdomen. vc1 01:56 Contacted [facility] for transfer. Connected with . mb4 02:00 Triage completed. jw7 02:51 CT Chest Abdomen Pelvis W/O Contrast In Process Unspecified. EDMS 02:55 Connected Page for doc-to-doc. mb4 03:35 Marta Danielle, RN is Primary Nurse. vc1 04:41 EMS called for transport/ per Day[facility] they aren't doing any transfers due to staff not eb sleeping. 05:19 No provider procedures requiring assistance completed. vc1 Administered Medications: 01:33 CANCELLED (Physician Discretion): hydromorphone1 mg IM once cp 01:44 Not Given (Physician Discretion): fentanyl (pf)50 mcg IM once cp 01:56 Drug: fentaNYL (PF) IVP 50 mcg IVP once Route: IVP; Site: Other; vc1 03:43 Drug: HYDROmorphone IVP 1 mg IVP once Route: IVP; Site: Other; vc1 Medication: 05:20 VIS not applicable for this client. vc1 Outcome: 02:40 ER care complete, transfer ordered by . cp 07:11 Patient left the ED. ld1 Signatures: Dispatcher [employer] EDMS Shaheen Paredes PA PA cp Botello, Elizabeth eb Baxter, Mackenzie mb4 Jie Anne RN RN ld1 Marta Danielle RN RN vc1 Lynn Gardner RN RN jw7 Corrections: (The following items were deleted from the chart) 02:03 02:01 General: Appears in no apparent distress. uncomfortable, Behavior is calm, jw7 cooperative, 7 : 02:01 Pain: Complains of pain in left leg and hip Pain does not radiate. Pain currently jw7 is 10 out of 10 on a pain scale. Quality of pain is described as aching, Pain began 2-3 days ago. Is continuous, Alleviated by rest, Aggravated by increased activity, repositioning, Noted to be grimacing, resistant to movement, jw7 : 02:01 EENT: No deficits noted. No signs and/or symptoms were reported regarding the [facility] EENT system. jw7 : 02:01 Neuro: Akhtar Agitation-Sedation Scale (RASS): 0 - Alert and Calm Level of jw7 Consciousness is awake, alert, obeys commands, Oriented to person, place, time, situation, [facility] : 02:01 Cardiovascular: Capillary refill < 3 seconds Clubbing of nail beds is absent JVD jw7 is absent Patient's skin is warm and dry. 7 : 02:01 Respiratory: Airway is patent Trachea midline Respiratory effort is even, jw7 unlabored, Respiratory pattern is regular, symmetrical, 7 : 02:01 GI: Abdomen is round non-distended, jw7 jw7 : 02:01 : No deficits noted. No signs and/or symptoms were reported regarding the [facility] genitourinary system. jw7 : 02:01 Derm: Skin is intact, is healthy with good turgor, Skin is dry, Skin is normal, jw7 Skin temperature is warm jw7 : 02:01 Musculoskeletal: Circulation, motion, and sensation intact. Range of motion: jw7 limited in left hip jw7 06:27 06:23 EMS called for transport/ per Daya they aren't doing any transfers due to eb staff not sleeping eb
[2023-09-21 08:00] VITALS: TEMP 98.3
[2023-09-21 08:07] VITALS: O2SAT 98
[2023-09-21 08:16] VITALS: BP 112/88
--- NOTE | 2023-09-21 21:09 | RAD REPORT ---
EXAM DESCRIPTION: RAD - Chest Single View - 09/21/2023 1:52 am CLINICAL HISTORY: The patient is 32 years old and is Male; fall Bed Name: 6 TECHNIQUE: Frontal view of the chest. COMPARISON: No relevant prior studies available. FINDINGS: LUNGS: No discrete focal consolidation. PLEURAL SPACE: No appreciable pleural effusion or pneumothorax. HEART: Heart size upper limits of normal. MEDIASTINUM: See above. BONES/JOINTS: No acute osseous abnormality. SOFT TISSUES: Surgical clips overlying the bilateral thyroid bed. IMPRESSION: No acute findings in the chest. Electronically signed by: Enrrique Alanis MD 09/21/2023 04:19 AM SENIOR FIELD SERVICE ENGINEER Due to temporary technical issues with the PACS/Fluency reporting system, reports are being signed by the in house radiologists without review as a courtesy to insure prompt reporting. The interpreting radiologist is fully responsible for the content of the report.
--- NOTE | 2023-09-21 21:10 | RAD REPORT ---
EXAM DESCRIPTION: RAD - Femur Left - 09/21/2023 1:52 am CLINICAL HISTORY: The patient is 32 years old and is Male; PAIN Bed Name: 6 TECHNIQUE: Frontal and lateral views of the left femur. COMPARISON: No relevant prior studies available. FINDINGS: BONES/JOINTS: Complete, minimally displaced fracture through the base of the left femora l neck. No additional fractures identified. No subluxation or dislocation. Somewhat osteopenic appearance of the bones diffusely. SOFT TISSUES: Left inguinal postsurgical changes with vascular stent demonstrated. Nodular appearing densities within the medial aspect of the mid to distal left thigh, of uncertain et iology and chronicity. IMPRESSION: 1. Complete, minimally displaced fracture through the base of the left femoral neck. 2. Nodular appearing densities within the medial aspect of the mid to distal left thigh tissues, of uncertain etiology and chronicity. Possibly heterotropic or dystrophic calcifications. Consider furt her characterization by CT to better characterize these findings if this is not a known finding on pr ior exams. Electronically signed by: Enrrique Alanis MD 09/21/2023 04:18 AM INTELLIGENCE MANAGER Due to temporary technical issues with the PACS/Fluency reporting system, reports are being signed by the in house radiologists without review as a courtesy to insure prompt reporting. The interpreting radiologist is fully responsible for the content of the report.
--- NOTE | 2023-09-21 21:12 | RAD REPORT ---
EXAM DESCRIPTION: RAD - Pelvis - 09/21/2023 1:52 am CLINICAL HISTORY: The patient is 32 years old and is Male; fall Bed Name: 6 TECHNIQUE: Frontal view of the pelvis. COMPARISON: No relevant prior studies available. FINDINGS/IMPRESSION: BONES/JOINTS: Mildly displaced acute fracture of the base of the left femoral neck. Comminuted fracture of the superior right pubic ramus, of uncertain chronicity. Diffusely osteopenic appearance of the bones. SOFT TISSUES: Surgical clips overlying left groin with left inguinal vascular stent noted. VASCULATURE: Dense intrapelvic vascular calcifications. Electronically signed by: Enrrique Alanis MD 09/21/2023 04:00 AM WELL SERVICE DERRICK WORKER Due to temporary technical issues with the PACS/Fluency reporting system, reports are being signed by the in house radiologists without review as a courtesy to insure prompt reporting. The interpreting radiologist is fully responsible for the content of the report.
--- NOTE | 2023-09-21 21:14 | RAD REPORT ---
EXAM DESCRIPTION: CT - Chest Abd Pelvis Wo Con - 09/21/2023 7:36 am CLINICAL HISTORY: The patient is 32 years old and is Male; fall Bed Name: 6 TECHNIQUE: Axial computed tomography images of the chest, abdomen and pelvis without intravenous con trast. Sagittal and coronal reformatted images were created and reviewed. This CT exam was perfor med using one or more of the following dose reduction techniques: automated exposure control, adjus tment of the mA and/or kV according to patient size, and/or use of iterative reconstruction technique . COMPARISON: No relevant prior studies available. FINDINGS: CHEST: LUNGS: Wedgelike groundglass opacities noted in the central right upper and dependent right middle and right lower lobes, favoring atypical pneumonia. PLEURAL SPACE: No significant effusion. No pneumothorax. HEART: Left ventricle is upper limits of normal size. No significant pericardial effusion. ABDOMEN: LIVER: Unremarkable GALLBLADDER AND BILE DUCTS: Cholecystectomy clips noted in the gallbladder fossa. No greater than e xpected ductal dilatation. PANCREAS: Unremarkable No ductal dilation. SPLEEN: Borderline splenomegaly. ADRENALS: Unremarkable No mass. KIDNEYS AND URETERS: Multiple low attenuation lesions in the left kidney some of which appear to be due to simple renal cysts while others are too small to characterize. No follow-up is necessary. Right kidney is absent, presumably secondary to nephrectomy. STOMACH AND BOWEL: Unremarkable No obstruction. No mucosal thickening. PELVIS: APPENDIX: No findings to suggest acute appendicitis. BLADDER: Decompressed appearance of the urinary bladder. No stones. REPRODUCTIVE: Unremarkable as visualized. CHEST, ABDOMEN and PELVIS: INTRAPERITONEAL SPACE: No significant fluid collection. No free air. BONES/JOINTS: Complete transverse fracture through the base of the left femoral neck, with slight c ranial displacement of the distal femoral fracture fragment. Healing right superior pubic ramus fracture. Diffusely heterogenous appearance of the bone marrow bilaterally with patchy areas of scleros is and lucency, suggesting a systemic or metabolic abnormality, such as renal osteodystrophy. Clinica l correlation recommended. Chronic appearing multilevel inferior thoracic and lumbar vertebral height loss. No dislocation. SOFT TISSUES: Moderate anterior proximal thigh subcutaneous edema demonstrated, suspicious for trau matic contusion. Scattered anasarca demonstrated throughout the chest and abdominal pelvic subcutaneo us tissues. Bilateral gynecomastia. Postsurgical changes of the supraumbilical midline abdominal wall and left groin. VASCULATURE: Dense multivessel coronary artery calcifications, greatest in the LAD. Extensive collateral veins demonstrated throughout the bilateral chest and abdominal wall. Curvilinear calcifications demonstrated throughout the infrarenal IVC and extending into the left common iliac vein, most consistent with chronic intracaval thrombus. No IVC filter is demonstrat ed. Moderate calcified sclerosis of the abdominal aorta and bilateral iliofemoral vasculature. Le ft distal common femoral arterial stent noted, the patency of which cannot be evaluated in the absenc e of contrast. Thin calcifications demonstrated throughout the central and peripheral abdominopelvic vasculature. No aortic aneurysm. LYMPH NODES: No enlarged lymph nodes. IMPRESSION: 1. 5. Curvilinear calcifications demonstrated throughout the infrarenal IVC and exte nding into the left common iliac vein, most consistent with chronic intracaval thrombus. No IVC filte r is demonstrated. 2. Complete transverse fracture through the base of the left femoral neck, with slight cranial disp lacement of the distal femoral fracture fragment. 3. Healing right superior pubic ramus fracture. 4. Diffusely heterogenous appearance of the bone marrow bilaterally with patchy areas of sclerosis and lucency, suggesting a systemic or metabolic abnormality, such as renal osteodystrophy. 5. Wedgelike groundglass opacities noted in the central right upper and dependent right middle and right lower lobes, favoring atypical pneumonia. 6. Borderline splenomegaly. Electronically signed by: Enrrique Alanis MD 09/21/2023 04:14 AM SALES ADMINISTRATION MANAGER Due to temporary technical issues with the PACS/Fluency reporting system, reports are being signed by the in house radiologists without review as a courtesy to insure prompt reporting. The interpreting radiologist is fully responsible for the content of the report.
== END ==
LOC: ER 00:15
DX: S72.042A Displaced fracture of base of neck of left femur, initial encounter for closed fracture (principal); E08.22 Diabetes mellitus due to underlying condition with diabetic chronic kidney disease; I13.2 Hypertensive heart and chronic kidney disease with heart failure and with stage 5 chronic kidney disease, or end stage renal disease; I50.9 Heart failure, unspecified; N18.6 End stage renal disease; E08.65 Diabetes mellitus due to underlying condition with hyperglycemia; D63.1 Anemia in chronic kidney disease; Z99.2 Dependence on renal dialysis; W05.0XXA Fall from non-moving wheelchair, initial encounter; Z28.310 Unvaccinated for COVID-19; Z88.8 Allergy status to other drugs, medicaments and biological substances; Z79.82 Long term (current) use of aspirin
CPT/HCPCS: 93005; 85025; 80048; 36415; 83735; 85610; 80076; 85730; 84484; 71250; 74176; 71045; 72170; 73552; 96375; 96374; 99284; J3010; J1170

== ENCOUNTER 2023-11-20 14:00 | Inpatient (IN) | payer OTHER ==
[2023-11-20 14:57] LABS: Absolute Lymphocytes (CBC) 1.2 K/uL (0.7-4.9); Hematocrit 31.3 % (39.6-49.0); Lymphocytes % 21.4 % (15.3-44.8); MCV 89.9 fL (80-100); MPV 7.8 fL (7.6-11.3); Platelets 167 thou/uL (152-406); RBC Red Blood Cell Count 3.48 M/uL (4.33-5.43)
[2023-11-20] MEDS ORDERED: CALCIUM GLUCONATE 1 GM IVPB 2 GM/100 ML BAG IV ONE (15:08)
[2023-11-20 15:27] LABS: Albumin 3.5 g/dL (3.4-5.0); Bilirubin Direct 0.2 mg/dL (0-0.2); Bilirubin Indirect, Calculated 0.2 mg/dL (0.2-0.8); Bilirubin Total 0.4 mg/dL (0.2-1.0); Magnesium 2.1 mg/dL (1.6-2.4); Phosphorus 3.2 mg/dL (2.5-4.9); Potassium 3.2 mEq/L (3.5-5.1); Protein, Total 7.8 g/dL (6.4-8.2); Troponin High Sensitivity 22.4 pg/mL (<58.9)
--- NOTE | 2023-11-20 16:02 | ER ---
Nurse's Notes [facility] Name: Rodrigue Arreola Jr Age: 33 yrs Sex: Male : 1990 Arrival Date: 11/20/2023 Time: 14:00 Bed 18 Private MD: Cristi Mckenna Diagnosis: Presentation: 11/20 14:07 Chief complaint: Patient states: calcium level was 4.5 , recently had his parathyroid iw removed on Aug 28. Had labs drawn yesterday by Dr. Michelle , was sent to ER for evaluation and admission for calcium drip. Coronavirus screen: At this time, the client does not indicate any symptoms associated with coronavirus-19. Ebola Screen: Patient negative for fever greater than or equal to 101.5 degrees Fahrenheit, and additional compatible Ebola Virus Disease symptoms Patient denies exposure to infectious person. Patient denies travel to an Ebola-affected area in the 21 days before illness onset. No symptoms or risks identified at this time. Initial Sepsis Screen: Does the patient meet any 2 criteria? No. Patient's initial sepsis screen is negative. Does the patient have a suspected source of infection? No. Patient's initial sepsis screen is negative. Risk Assessment: Do you want to hurt yourself or someone else? Patient reports no desire to harm self or others. Onset of symptoms was November 20, 2023. 14:07 Method Of Arrival: Wheelchair iw 14:07 Acuity: DAVID 3 iw Historical: - Allergies: 14:08 Plavix; iw - PMHx: 14:08 Cerebrovascular accident; Diabetes - IDDM; ESRD; Seizure; Hypertension; CHF; CVA; RENAL iw FAILURE; Hypothyroidism; Dialysis; Saturday; Screenin:14 [facility] [place] ED Fall Risk Assessment (Adult) Score/Fall Risk Level 0 - 2 = Low Risk. Abuse as6 screen: Denies threats or abuse. Denies injuries from another. Nutritional screening: No deficits noted. Tuberculosis screening: No symptoms or risk factors identified. Assessment: 15:16 General: Appears uncomfortable, ill, Behavior is cooperative, appropriate for age, ll1 flat, Reports fatigue for low calcium. Neuro: No deficits noted. 15:23 Reassessment: Patient and/or family updated on plan of care and expected duration. Pain ll1 level reassessed. 15:43 Reassessment: No changes from previously documented assessment. Patient and/or family ll1 updated on plan of care and expected duration. Pain level reassessed. Dr. Gates informed of BP. 16:17 Reassessment: Patient and/or family updated on plan of care and expected duration. Pain ll1 level reassessed. 17:15 General: pt wanting to leave AMA. pt aware of the risks of leaving and was told to as6 return to ER if needed . Vital Signs: 14:09 BP 101 / 60; Pulse 86; Resp 16; Temp 97.4; Pulse Ox 99% ; Weight 127.01 kg; Height 6 iw ft. 4 in. ; Pain 0/10; 15:22 BP 108 / 83; Pulse 83; Resp 18; ll1 15:43 BP 90 / 66; Pulse 86; Resp 18; ll1 16:04 BP 97 / 58; Pulse 88; ll1 16:17 BP 93 / 75; Pulse 83; ll1 16:43 BP 120 / 72; Pulse 82; Resp 18; Pulse Ox 95% on R/A; ll1 17:14 BP 114 / 81; Pulse 88; Resp 15 S; Pulse Ox 97% on R/A; as6 14:09 Body Mass Index 34.08 (127.01 kg, 193.04 cm) iw 14:09 Pain Scale: Adult iw ED Course: 14:04 Patient arrived in ED. mr 14:04 Traci Gates MD is Attending Physician. sp3 14:04 Cristi Mckenna is Private Physician. mr 14:08 Triage completed. iw 14:10 Arm band placed on. iw 14:48 Inserted saline lock: 20 gauge in left antecubital area, using aseptic technique. Blood as6 collected. 15:23 Patient placed in an exam room, on a stretcher. ll1 16:00 Rob Nuñez MD is Hospitalizing Provider. sp3 16:58 Brian Juan, FRITZ is Primary Nurse. tl4 17:14 No provider procedures requiring assistance completed. IV discontinued, intact, as6 bleeding controlled, No redness/swelling at site. Pressure dressing applied. 17:15 Bed in low position. Call light in reach. Side rails up X2. as6 Administered Medications: 15:24 Drug: Calcium Gluconate IVPB 2 grams IVPB once over 60 mins; (mix in NS 100 mL) Route: ll1 IVPB; Infused Over: 60 mins; Site: left antecubital; 16:17 Follow up: Response: No adverse reaction; IV Status: Completed infusion; IV Intake: ll1 1000ml Medication: 17:14 VIS not applicable for this client. as6 Intake: 16:17 IV: 1000ml; Total: 1000ml. ll1 Outcome: 16:01 Decision to Hospitalize by Provider. sp3 17:15 AMA AMA form signed as6 17:15 Condition: stable 17:15 Instructed on need to return 17:17 Patient left the ED. as6 Signatures: Sarah Littlejohn, Reg Reg mr Chandni Cavazos, RN RN iw Krish Saucedo RN RN ll1 Traci Gates MD MD sp3 Arsh Gomez RN RN as6 Brian Juan RN RN tl4 Corrections: (The following items were deleted from the chart) 14:10 14:07 Chief complaint: Patient states: calcium level was 4.5 , recently had his iw parathyroid removed and had labs drawn yesterday by Dr. Michelle , was sent to ER for evaluation and admission for calcium drip iw
--- NOTE | 2023-11-20 16:02 | EDPHYS ---
Physician Documentation [facility] Name: Rodrigue Arreola Jr Age: 33 yrs Sex: Male : 1990 Arrival Date: 11/20/2023 Time: 14:00 Bed 18 Private MD: Cristi Mckenna ED Physician Traci Gates HPI: 11/20 14:38 This 33 yrs old Black Male presents to ER via Wheelchair with complaints of low calcium sp3 level. 14:38 33-year-old male with extensive past medical history including end-stage renal disease sp3 on dialysis, CVA, diabetes, seizure, hypertension, CHF, obesity, status post parathyroidectomy presents to the ED referred by his digital marketing specialist for hypocalcemia with a level of 4.3. Patient has no symptoms except generalized weakness. Review of systems negative for fever, headache, URI symptoms, shortness of breath, chest pain, abdominal pain, nausea, vomiting, diarrhea, rash, or any other signs or symptoms on ROS at this time.. Historical: - Allergies: 14:08 Plavix; iw - PMHx: 14:08 Cerebrovascular accident; Diabetes - IDDM; ESRD; Seizure; Hypertension; CHF; CVA; RENAL iw FAILURE; Hypothyroidism; Dialysis; Saturday; ROS: 14:41 Constitutional: Negative for fever, chills, and weight loss, Eyes: Negative for injury, sp3 pain, redness, and discharge, ENT: Negative for injury, pain, and discharge, Neck: Negative for injury, pain, and swelling, Cardiovascular: Negative for chest pain, palpitations, and edema, Respiratory: Negative for shortness of breath, cough, wheezing, and pleuritic chest pain, Abdomen/GI: Negative for abdominal pain, nausea, vomiting, diarrhea, and constipation, Back: Negative for injury and pain, Skin: Negative for injury, rash, and discoloration, Neuro: Negative for headache, weakness, numbness, tingling, and seizure, 14:41 All other systems are negative, Exam: 14:41 Constitutional: This is a well developed, well nourished patient who is awake, alert, sp3 and in no acute distress. Neck: Trachea midline, no thyromegaly or masses palpated, and no cervical lymphadenopathy. Supple, full range of motion without nuchal rigidity, or vertebral point tenderness. No Meningismus. Chest/axilla: Normal chest wall appearance and motion. Nontender with no deformity. No lesions are appreciated. Cardiovascular: Regular rate and rhythm with a normal S1 and S2. No gallops, murmurs, or rubs. Normal PMI, no JVD. No pulse deficits. Respiratory: Lungs have equal breath sounds bilaterally, clear to auscultation and percussion. No rales, rhonchi or wheezes noted. No increased work of breathing, no retractions or nasal flaring. Abdomen/GI: Soft, non-tender, with normal bowel sounds. No distension or tympany. No guarding or rebound. No evidence of tenderness throughout. Back: No spinal tenderness. No costovertebral tenderness. Full range of motion. MS/ Extremity: Pulses equal, no cyanosis. Neurovascular intact. Full, normal range of motion. Psych: Awake, alert, with orientation to person, place and time. Behavior, mood, and affect are within normal limits. 16:04 ECG was reviewed by the Attending Physician. EKG demonstrates normal sinus rhythm at 87 sp3 bpm with normal intervals except for QTc at 546 corrected, normal QRS, normal axis, nonspecific ST's ST changes without evidence of acute ischemia. Vital Signs: 14:09 BP 101 / 60; Pulse 86; Resp 16; Temp 97.4; Pulse Ox 99% ; Weight 127.01 kg; Height 6 iw ft. 4 in. ; Pain 0/10; 15:22 BP 108 / 83; Pulse 83; Resp 18; ll1 15:43 BP 90 / 66; Pulse 86; Resp 18; ll1 16:04 BP 97 / 58; Pulse 88; ll1 16:17 BP 93 / 75; Pulse 83; ll1 16:43 BP 120 / 72; Pulse 82; Resp 18; Pulse Ox 95% on R/A; ll1 17:14 BP 114 / 81; Pulse 88; Resp 15 S; Pulse Ox 97% on R/A; as6 14:09 Body Mass Index 34.08 (127.01 kg, 193.04 cm) iw 14:09 Pain Scale: Adult iw MDM: 14:14 Patient medically screened. sp3 14:41 Data reviewed: vital signs, nurses notes, old medical records, lab test result(s), sp3 radiologic studies. ED course: 33-year-old male with extensive PMH status post parathyroidectomy now with hypocalcemia. I spoke to Dr. Michelle who requested us to give IV calcium and admit patient to internal medicine for further workup. Calcium gluconate 2 g have been ordered and we will recheck calcium as well and admit patient.. 11/20 14:14 Order name: Basic Metabolic Panel; Complete Time: 16:15 sp3 11/20 14:14 Order name: CBC with Diff 3 11/20 14:14 Order name: LFT's; Complete Time: 16:15 3 11/20 14:14 Order name: Magnesium; Complete Time: 16:15 sp3 11/20 14:14 Order name: NT PRO-BNP; Complete Time: 16:15 sp3 11/20 14:14 Order name: Troponin HS; Complete Time: 16:15 sp3 11/20 14:14 Order name: Calcium sp3 11/20 14:14 Order name: Phosphorus; Complete Time: 16:15 sp3 11/20 15:46 Order name: Albumin sp3 11/20 15:59 Order name: PTH Intact EDMS 11/20 15:59 Order name: Vitamin D, 25 (OH), TOTAL EDMS 11/20 15:59 Order name: Vitamin D,1,25 Dihydroxy EDMS 11/20 16:00 Order name: Magnesium EDMS 11/20 14:14 Order name: EKG; Complete Time: 14:15 11/20 14:14 Order name: Cardiac monitoring; Complete Time: 15:24 3 11/20 14:14 Order name: EKG - Nurse/Tech; Complete Time: 14:48 3 11/20 14:14 Order name: IV Saline Lock; Complete Time: 14:48 11/20 14:14 Order name: Labs collected and sent; Complete Time: 14:48 3 11/20 14:14 Order name: O2 Per Protocol; Complete Time: 15:24 sp3 11/20 14:14 Order name: O2 Sat Monitoring; Complete Time: 15:24 sp Administered Medications: 15:24 Drug: Calcium Gluconate IVPB 2 grams IVPB once over 60 mins; (mix in NS 100 mL) Route: ll1 IVPB; Infused Over: 60 mins; Site: left antecubital; 16:17 Follow up: Response: No adverse reaction; IV Status: Completed infusion; IV Intake: ll1 1000ml Disposition Summary: 11/20/23 17:14 Left Against Medical Advice Notes: Location: Home(11/20/23 17:14) as6 Condition: Stable(11/20/23 17:14) as6 Signatures: Dispatcher [employer] Chandni Boyd, RN RN iw Dionicio Fu, SUPERVISOR EXTRUDING DEPARTMENT-C SUPERVISOR EXTRUDING DEPARTMENT-Cla1 Krish Saucedo RN RN ll1 Traci Gates MD MD sp3 Arsh Gomez RN RN as6 Corrections: (The following items were deleted from the chart) 17:13 16:01 Observation sp3 as6 17:13 16:01 Rob Nuñez sp3 as6 17:13 16:01 Telemetry/MedSurg (observation) sp3 as6 17:13 16:01 Stable sp3 as6 17:13 16:01 an acute exacerbation sp3 as6 17:13 16:01 have worsened sp3 as6 17:13 16:01 Standard sp3 as6 17:13 16:01 sp3 as6 17:13 16:01 Hypocalcemia sp3 as6
--- NOTE | 2023-11-20 17:25 | P.SSS ---
Patient History Date of Service: 11/20/23 Reason for admission: Hypocalcemia History of Present Illness: 33-year-old male with history of ESRD on HD TTS was referred to the emergency department by his manager flight operations for hypocalcemia. He reports he had a parathyroidectomy August 28, 2023 and has been dealing with persistent hypocalcemia since then. Reportedly his outpatient level was less than 5 and for that reason he was sent to the emergency department for admission. He was evaluated in the emergency department his labs here are significant for a calcium level of 5.3 albumin of 3.5 sodium 133 potassium 3.2 phosphorus 3.2 magnesium 2.1. He was given 2 g of calcium gluconate in the emergency department, ED provider called to admit the patient for further evaluation and management of his hypocalcemia. Allergies clopidogrel [From Plavix] Adverse Reaction (Verified 08/27/23 14:40) Hives/Rash Home Medications: Amlodipine Besylate 1 tab PO DAILY 10/21/18 Atorvastatin Calcium [Lipitor] 40 mg PO BEDTIME 10/21/18 Cinacalcet HCl [Sensipar*] 1 tab PO DAILY 10/21/18 Hydralazine [Apresoline*] 1 tab PO PRN 10/21/18 Insulin Glargine,Hum.rec.anlog [Lantus Solostar] 10 unit SQ DAILY 10/21/18 Losartan Potassium 1 tab PO DAILY 10/21/18 Metoprolol Succinate 50 mg PO DAILY 10/21/18 Mirtazapine [Remeron*] 1 tab PO DAILY 10/21/18 Sevelamer Carbonate [Renvela] 1 tab PO TIDWM 10/21/18 Sucroferric Oxyhydroxide [Velphoro] 1 tab PO DAILY 10/21/18 clonazePAM [Clonazepam] 1 tab PO DAILY 10/21/18 Enoxaparin Sodium [Lovenox 100 MG INJ] 100 mg SQ DAILY #3 syr 05/22/21 Warfarin Sodium [Coumadin] 10 mg PO DAILY 5 PM 90 Days #90 tab 05/22/21 - Past Medical/Surgical History Diabetic: Yes -: CHF, systolic dysfunction-30% -: Malignant hypertension -: Diabetes mellitus type 2 -: Obstructive sleep apnea -: Chronic lymphedema -: Chronic renal disease -: Anemia of chronic disease -: cholecystectomy -: Left lower leg Debriedment -: HD catheter placement Psychosocial/ Personal History: The patient is single. He has a partner. He has 3 children. He does not work - Family History Father -: Heart disease, Hypertension, Diabetes, Stroke, Kidney disease - Social History Alcohol use: No CD- Drugs: No Caffeine use: No Place of Residence: Home Review of Systems Unremarkable Physical Examination - Physical Exam General: Alert, In no apparent distress, Oriented x3 HEENT: Atraumatic, PERRLA, EOMI Neck: Supple, 2+ carotid pulse no bruit, No LAD Respiratory: Clear to auscultation bilaterally, Normal air movement Cardiovascular: Regular rate/rhythm, Normal S1 S2 Gastrointestinal: Normal bowel sounds Musculoskeletal: No tenderness Integumentary: No rashes Neurological: Normal gait, Normal speech, Normal strength at 5/5 x4 extr, Normal tone - Studies Laboratory Data (last 24 hrs) 11/20/23 11/20/23 14:46 14:46 WBC 5.40 Hgb 10.2 L Hct 31.3 L Plt Count 167 Sodium 133 L Potassium 3.2 L BUN 42 H Creatinine 9.98 H Glucose 104 Phosphorus 3.2 Magnesium 2.1 Total Bilirubin 0.4 AST 19 ALT 14 L Alkaline Phosphatase 314 H Treatment Summary: 33-year-old male with history of ESRD on HD TTS was referred to the emergency department by his manager flight operations for hypocalcemia. He reports he had a parathyroidectomy August 28, 2023 and has been dealing with persistent hypocalcemia since then. Reportedly his outpatient level was less than 5 and for that reason he was sent to the emergency department for admission. He was evaluated in the emergency department his labs here are significant for a calcium level of 5.3 albumin of 3.5 sodium 133 potassium 3.2 phosphorus 3.2 magnesium 2.1. He was given 2 g of calcium gluconate in the emergency department, ED provider called to admit the patient for further evaluation and management of his hypocalcemia. Patient was admitted briefly, shortly after he was admitted and I discussed the case with his manager flight operations I was called back to the room as he was wanting to leave the hospital AGAINST MEDICAL ADVICE. I discussed with him the risks of leaving AGAINST MEDICAL ADVICE including cardiac arrhythmia, sudden cardiac , seizures related to his severe hypocalcemia. He verbalized understanding, his significant other was at bedside. He reports his plan is to go to dialysis tomorrow and follow-up with his PCP on Saturday when he has an appointment. He reported he would return to the emergency department if he became symptomatic or had any new issues. - Disposition Discharge Date: 11/20/23 Disposition: AMA-LEFT AGAINST MEDICAL ADVIC Condition: FAIR Diet: Renal Activity: Ad hema Critical Care: No Time Spent Managing Pts Care (In Minutes): 70
[2023-11-20 18:00] VITALS: BP 114/81; TEMP 97.4; O2SAT 97
[2023-11-20 18:42] LABS: Anisocytosis 1+; Blood Morphology Comment NOTED (NOT SEEN); Platelet Estimate ADEQ; White Blood Cell Scan OK (OK)
--- NOTE | 2023-11-21 15:25 | EKG ---
Test Date: 2023-11-20 Test Time: 14:27:02 College Sports Assistant: MEASUREMENT RESULTS: Intervals: Rate: 87 CA: 196 QRSD: 92 QT: 454 QTc: 546 [place]: P: 58 CA: 196 QRS: 103 T: 58 INTERPRETIVE STATEMENTS: Normal sinus rhythm Rightward axis Low voltage QRS Cannot rule out Anterior infarct, age undetermined Prolonged QT Abnormal ECG Compared to ECG 09/21/2023 01:01:28 Right-axis deviation now present Myocardial infarct finding now present Prolonged QT interval now present Sinus tachycardia no longer present Electronically Signed On 11-21-23 15:23:43 VOCATIONAL AIDE by Gt Dowd
== END 2023-11-20 17:17 | disposition left against medical advice (07) | DRG 640 ==
LOC: ER 14:00 → ERHOLD 16:22
PROVIDERS: ADMIT Hospitalist; ATTEND Hospitalist
DX: E83.51 Hypocalcemia (principal); N18.6 End stage renal disease; I50.22 Chronic systolic (congestive) heart failure; I13.2 Hypertensive heart and chronic kidney disease with heart failure and with stage 5 chronic kidney disease, or end stage renal disease; E11.22 Type 2 diabetes mellitus with diabetic chronic kidney disease; E66.9 Obesity, unspecified; Z79.4 Long term (current) use of insulin; Z99.2 Dependence on renal dialysis; Z88.8 Allergy status to other drugs, medicaments and biological substances; Z53.29 Procedure and treatment not carried out because of patient's decision for other reasons; Z86.73 Personal history of transient ischemic attack (TIA), and cerebral infarction without residual deficits; Z68.34 Body mass index [BMI] 34.0-34.9, adult; Z90.89 Acquired absence of other organs; Z79.01 Long term (current) use of anticoagulants; Z79.899 Other long term (current) drug therapy; Z91.158 Patient's noncompliance with renal dialysis for other reason; Z98.890 Other specified postprocedural states
CPT/HCPCS: 36415; 80048; 80076; 83735; 83880; 84100; 84484; 85025; 93005; J0612